=== PATIENT | male | born 1960 | race Caucasian/White ===

== ENCOUNTER → 2021-08-23 09:25 | Outpatient (BNVA) | payer OTHER, SELFPAY | PROVIDERS: PCP Internal Medicine; Visit Provider Nurse Practitioner Family | DX: G20 Parkinson's disease (principal); G47.62 Sleep related leg cramps; M79.601 Pain in right arm; M79.602 Pain in left arm; R20.2 Paresthesia of skin | CPT/HCPCS: 99212 ==

== ENCOUNTER → 2021-10-21 09:47 | Outpatient (BNVA) | payer OTHER, SELFPAY | PROVIDERS: Visit Provider Nurse Practitioner Family | DX: G20 Parkinson's disease (principal); G47.62 Sleep related leg cramps; R20.2 Paresthesia of skin; M79.601 Pain in right arm; M79.602 Pain in left arm | CPT/HCPCS: 99212 ==

== ENCOUNTER → 2021-12-30 11:26 | Outpatient (BNVA) | payer OTHER, SELFPAY | PROVIDERS: PCP Nurse Practitioner Family; Visit Provider Nurse Practitioner Family | DX: G20 Parkinson's disease (principal); R20.2 Paresthesia of skin; M79.601 Pain in right arm; M79.602 Pain in left arm; G47.62 Sleep related leg cramps | CPT/HCPCS: 99212 ==

== ENCOUNTER → 2022-04-04 08:53 | Outpatient (BNVA) | payer OTHER, SELFPAY | PROVIDERS: PCP Nurse Practitioner Family; Visit Provider Nurse Practitioner Family | DX: G20 Parkinson's disease (principal); F41.9 Anxiety disorder, unspecified | CPT/HCPCS: 99212 ==

== ENCOUNTER → 2022-08-03 14:54 | Outpatient (BNVA) | payer OTHER, SELFPAY | PROVIDERS: PCP Nurse Practitioner Family; Visit Provider Nurse Practitioner Family | DX: G20 Parkinson's disease (principal); F09 Unspecified mental disorder due to known physiological condition; G47.33 Obstructive sleep apnea (adult) (pediatric); G47.19 Other hypersomnia; R06.83 Snoring; Z79.899 Other long term (current) drug therapy | CPT/HCPCS: 99212 ==

== ENCOUNTER → 2022-08-31 09:18 | Outpatient (REF) | payer OTHER, SELFPAY | LOC: HO.SL 09:18 | PROVIDERS: Visit Provider Nurse Practitioner Family | DX: G47.33 Obstructive sleep apnea (adult) (pediatric) (principal) | CPT/HCPCS: 95806 ==

== ENCOUNTER 2023-07-05 08:34 | Outpatient (AMB) | payer OTHER, SELFPAY ==
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
[2023-07-05 08:40] VITALS: BP 112/80; PULSE 84; O2SAT 98; BMI 33.5
== END 2023-07-05 09:41 | disposition home or self-care (01) ==
PROVIDERS: PCP Nurse Practitioner Family; Visit Provider Nurse Practitioner Family
DX: G20.A1 Parkinson's disease without dyskinesia, without mention of fluctuations (principal); F09 Unspecified mental disorder due to known physiological condition; G47.62 Sleep related leg cramps; R20.2 Paresthesia of skin; M79.601 Pain in right arm; M79.602 Pain in left arm; G50.1 Atypical facial pain
CPT/HCPCS: 99214

== ENCOUNTER → 2023-07-05 08:34 | Outpatient (BNVA) | payer OTHER, SELFPAY | PROVIDERS: PCP Nurse Practitioner Family; Visit Provider Nurse Practitioner Family | DX: G20.A1 Parkinson's disease without dyskinesia, without mention of fluctuations (principal); F09 Unspecified mental disorder due to known physiological condition; G47.62 Sleep related leg cramps; R20.2 Paresthesia of skin; M79.601 Pain in right arm; M79.602 Pain in left arm; G50.1 Atypical facial pain; Z79.899 Other long term (current) drug therapy | CPT/HCPCS: 99212 ==

== ENCOUNTER 2023-11-02 08:19 | Outpatient (AMB) | payer OTHER, SELFPAY ==
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
--- OUTSIDE RECORDS SUMMARY | 2023-11-02 08:21 | XMS_ITS | Continuity of Care Document ---
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 FERNANDEZ Primary Care Physician Encounter [facility] [place] Date(s): 12/10/20 - 01/09/[address] [address]- Allergies, Adverse Reactions, Alerts Substance Reaction Severity Status penicillin Unknown Active gabapentin Active hydrOXYzine hydrochloride Ac tive Lantus Active Ventolin HFA Active Flovent HFA Active traZODone Active ZyrTEC Active SEROquel Active Immunizations Given and Recorded Vaccine Date Status Refusal Reason SARS-CoV-2 (COVID-19) mRNA BNT-162b2 vac 10/17/20 Recorded influenza virus vaccine, inactivated 03/02/20 Pavel rded influenza virus vaccine, inactivated 03/07/19 Give n influenza virus vaccine, inactivated 03/28/18 Give n influenza virus vaccine, inactivated 02/10/18 Pavel rded influenza virus vaccine, inactivated 03/30/16 Give n influenza virus vaccine, inactivated 03/04/16 Give n influenza virus vaccine, inactivated 04/16/15 Give n zoster vaccine, inactivated 06/18/19 Recorded zoster vaccine, inactivated 06/17/19 Recorded zoster vaccine, inactivated 11/25/17 Recorded Influenza Vaccine (oldterm) 02/17/17 Recorded pneumococcal 23-valent vaccine 02/16/16 Given tetanus/diphtheria/pertussis, acel(Tdap) 11/25/14 Given Medications acetaminophen 500 mg oral tablet 2 tablet = 1,000 mg, By Mouth, 3 times a day, PRN for pain, not to exceed 4000 mg/day. Do not take with acetaminophen/codeine pills, # 60 tablet, 0 Refills, Acute 01/27/21 8:00:00 EDT, 11/27/20 10:53:00 EDT, Tablet, [facility]/pharmacy #[id number], Partial fill up... Start Date: 11/27/20 Stop Date: 01/27/21 Status: Ordered amLODIPine 10 mg oral tablet 10 mg, 1, tablet, By Mouth, Daily, # 90 tablet, Refills 3, Tot. Refills 3, Maintenance, 10/30/20 15:08:00 EDT, Route to Pharmacy Electronically, [facility]/pharmacy #[id number], 184, cm, 10/30/20 14:15:00 EDT, Height, 123.27, kg, 06/25/19 13:22:00 EST, Dry Weight Start Date: 10/30/20 Status: Ordered aspirin 81 mg oral delayed release tablet 81 mg, 1, tablet, By Mouth, Daily, # 90 tablet, Refills 0, Tot. Refills 0, Maintenance, 01/01/21 11:26:00 EDT, Route to Pharmacy Electronically, [facility]/pharmacy #[id number], Partial fill upon patient request if the prescription is for a schedule II opioid drug... Start Date: 01/01/21 Status: Ordered aspirin 81 mg oral tablet 1 tablet = 81 mg, By Mouth, Daily, # 90 tablet, 3 Refills, Maintenance, 01/15/20 9:51:00 EDT, Tablet, [facility]/pharmacy #[id number], 184, cm, 01/15/20 9:11:00 EDT, Height, 123.27, kg, 06/25/19 13:22:00 EST, DryWeight Start Date: 01/15/20 Stop Date: 01/09/21 Status: Ordered Auto CPAP Auto CPAP, See Instructions, # 1 each, Refills 0, Tot. Refills 0, Maintenance, Patient should be started on AutoCPAP 7-12 with a heated humidifier. Recommend ordering a machine with compliance data capabilities and following residual AHI. Dx: KERMIT (G47... Start Date: 06/27/16 Status: Ordered Auto CPAP Supplies Auto CPAP Supplies, See Instructions, # 1 each, Refills 3, Tot. Refills 3, Maintenance, Mask,Nasal pillows,Filters,Heated humidification,Headgear,Interface,Tubing,Chin Strap,Water chamber,Ramp. Dx: Ob structive sleep apnea- G47.33, 06/27/16 11:24:23,... Start Date: 06/27/16 Status: Ordered Blood Pressure Monitor See Instructions, # 1 each, Refills 0, Tot. Refills 0, Maintenance, Use to check BP once daily Dx: I10, 01/15/20 9:35:00 EDT, Supply Start Date: 01/15/20 Status: Ordered cane cane, See Instructions, # 1 each, Refills 0, Tot. Refills 0, Maintenance, use as needed for walking, 12/31/20 9:52:00 EDT, Supply Start Date: 12/31/20 Status: Ordered Claritin 10 mg oral tablet 10 mg, 1, tablet, By Mouth, Daily, # 30 tablet, Refills 0, Tot. Refills 0, Maintenance, 02/07/20 9:49:00 EDT, Route to Pharmacy Electronically, [facility]/pharmacy #[id number], 184, cm, 01/29/20 14:16:00 EDT, Height, 123.27, kg, 06/25/19 13:22:00 EST, Dry Weight Start Date: 02/07/20 Status: Ordered Compression- Lower Extremity (Knee High) See Instructions, # 2 each, Refills 0, Tot. Refills 0, Maintenance, Pressure of 20-30 mmHG. For bilateral lower extremity venous stasis with edema/swelling, 04/06/18 15:30:34 EDT, Compound Start Date: 04/06/18 Status: Ordered Compression- Lower Extremity (Knee High) See Instructions, # 1 each, Refills 3, Tot. Refills 3, Maintenance, dx bilateral leg edema, wear daily 15-20 mmHG 1 pair, 11/09/20 11:22:00 EDT, Supply Start Date: 11/09/20 Status: Ordered cyanocobalamin 1000 mcg oral tablet 1,000 mcg, 1, tablet, By Mouth, Daily, for 90 days, # 90 tablet, Refills 11, Tot. Refills 11, Hard Stop 08/02/23 13:12:00 EST, 08/17/20 13:12:00 EST, Route to Pharmacy Electronically, [facility]/pharmacy #[id number], 184, cm, 02/28/20 15:58:00 EDT, Height, 123.27,... Start Date: 08/17/20 Stop Date: 08/02/23 Status: Ordered cyanocobalamin 1000 mcg oral tablet 1,000 mcg, 1, tablet, By Mouth, Daily, # 90 tablet, Refills 11, Tot. Refills 11, Maintenance, 08/02/23 13:12:00 EST, Route to Pharmacy Electronically, [facility]/pharmacy #[id number], 184, cm, 01/01/21 10:56:00 EDT, Height, 123.27, kg, 06/25/19 13:22:00 EST, Dry W... Start Date: 08/02/23 Stop Date: 07/17/26 Status: Ordered Diabetic socks Diabetic socks, See Instructions, # 1 each, Refills 5, Tot. Refills 5, Maintenance, please dispensediabetic stocks for this pt with DX E11.9, 02/07/20 13:13:00 EDT, Compound, 184, cm, 01/29/20 14:16:00 EDT, Height, 123.27, kg, 06/25/19 13:22:00 EST,... Start Date: 02/07/20 Status: Ordered Diabetic walking shoes Diabetic walking shoes, See Instructions, # 1 each, Refills 0, Tot. Refills 0, Maintenance, Dispense 1 pair of diabetic walking shoes DX- E11.9, 02/19/20 13:22:00 EDT, Supply, Dry Weight Start Date: 02/19/20 Status: Ordered diazepam 2 mg oral tablet TAKE 1 TABLET BY MOUTH TWICE A DAY NEEDED Start Date: 02/28/20 Status: Ordered diclofenac 1% topical gel See Instructions, 1 application Topically to affected area 2 times a day as needed for pain, # 100 Gm, 1 Refills, Maintenance, 12/03/20 16:21:00 EDT, Gel, [facility]/pharmacy #[id number], Partial fill upon patient request if the prescription is for a schedule II... Start Date: 12/03/20 Status: Ordered Diovan 320 mg oral tablet 1 tablet = 320 mg, By Mouth, Daily, # 90 tablet, 3 Refills, Maintenance, 01/01/21 11:24:00 EDT, Tablet, [facility]/pharmacy #[id number], 184, cm, 01/01/21 10:56:00 EDT, Height, 123.27, kg, 06/25/19 13:22:00 EST, Dry Weight Start Date: 01/01/21 Status: Ordered fluocinonide 0.05% topical cream See Instructions, 1 application Topically 3 times a day, as needed, for itchy rash. apply a thin film to affected areas, # 30 Gm, 0 Refills, Maintenance, 10/03/20 15:41:00 EDT, Cream, [facility]/pharmacy #[id number], Partial fill upon patient request if the presc... Start Date: 10/03/20 Status: Ordered fluticasone 50 mcg/inh nasal spray See Instructions, USE 1 SPRAY IN EACH NOSTRIL EVERY MORNING, # 16 mL, 0 Refills, Maintenance, [id number], 30, USE 1 SPRAY IN EACH NOSTRIL EVERY MORNING, 184, cm, 01/29/20 14:16:00 EDT, Height, 123.27, kg, 06/25/19 13:22:00 EST, Dry Weight Start Date: 02/06/20 Status: Ordered Freestyle Lite Lancets See Instructions, # 50 each, Refills 5, Tot. Refills 5, Maintenance, Use to test BS daily for DM, E11.65, 07/22/18 19:22:15 EST, Compound Start Date: 07/22/18 Status: Ordered Freestyle Lite Lancets See Instructions, # 200 each, Refills 5, Tot. Refills 5, Maintenance, Use to test BS 3 times a day for DM, E11.65, 10/13/17 9:24:10 EDT, Compound Start Date: 10/13/17 Status: Ordered Freestyle Lite Test Strips See Instructions, # 1 box, Refills 11, Tot. Refills 11, Maintenance, Dx: E11.65 Use up to 3 times daily, 07/11/16 19:31:42, Compound Start Date: 07/11/16 Status: Ordered hydrOXYzine pamoate 25 mg oral capsule TAKE 2 CAPS BY MOUTH EVERY NIGHT AND TAKE 1 CAP EVERY MORNING AND NOON Start Date: 02/28/20 Status: Ordered metFORMIN 500 mg oral tablet 1 tablet = 500 mg, By Mouth, Daily, with meals, # 90 tablet, 11 Refills, Maintenance, 01/01/21 11:24:00 EDT, Tablet, [facility]/pharmacy #[id number], 184, cm, 01/01/21 10:56:00 EDT, Height, 123.27, kg, 06/25/19 13:22:00 EST, Dry Weight Start Date: 01/01/21 Status: Ordered omega-3 polyunsaturated fatty acids ethyl esters 1000 mg oral capsule 1 capsule = 1,000 mg, By Mouth, 2 times a day, # 60 capsule, 11 Refills, Maintenance, 01/01/21 11:25:00 EDT, Capsule, [facility]/pharmacy #[id number], 1 capsule By Mouth 2 times a day,x30 days, 184, cm, 01/01/21 10:56:00 EDT, Height, 123.27, kg, 06/25/19 13:22:00... Start Date: 01/01/21 Stop Date: 12/27/21 Status: Ordered omeprazole 20 mg oral enteric coated capsule 1 capsule = 20 mg, By Mouth, Daily, # 30 capsule, 2 Refills, Maintenance, 02/06/20 16:40:00 EDT, ECCapsule, [facility]/pharmacy #[id number], 184, cm, 01/29/20 14:16:00 EDT, Height, 123.27, kg, 06/25/19 13:22:00 EST, Dry Weight Start Date: 02/06/20 Status: Ordered Robaxin-750 750 mg oral tablet 2 tablet = 1,500 mg, By Mouth, 3 times a day, for 10 days, it make drowsiness, # 60 tablet, 0 Refills, Acute 01/11/21 11:23:00 EDT, 01/01/21 11:23:00 EDT, Tablet, [facility]/pharmacy #[id number], Partial fill upon patient request if the prescription is for a sched... Start Date: 01/01/21 Stop Date: 01/11/21 Status: Ordered Shower chair Shower chair, See Instructions, # 1 each, Refills 0, Tot. Refills 0, Maintenance, Use as needed stevie, 12/31/20 9:51:00 EDT, Supply Start Date: 12/31/20 Status: Ordered sulindac 150 mg oral tablet 1 tablet = 150 mg, By Mouth, 2 times a day, PRN Pain , Mild, for 14 days, # 28 tablet, 0 Refills, Hard Stop 01/15/21 11:19:00 EDT, 01/01/21 11:19:00 EDT, Tablet, [facility]/pharmacy #[id number], Partial fill uponpatient request if the prescription is for a schedu... Start Date: 01/01/21 Stop Date: 01/15/21 Status: Ordered sulindac 150 mg oral tablet See Instructions, TAKE 1 TABLET BY MOUTH TWICE DAILY NEEDED FOR PAIN, # 28 tablet, 0 Refills, Maintenance, [id number], 184, cm, 12/09/20 11:19:00 EDT, Height, 123.27, kg, 06/25/19 13:22:00 EST, Dry Weight Start Date: 12/25/20 Status: Ordered Problem List Condition Effective Dates Status Health Status Inform ant Polyp of colon, adenomatous( Confirmed) 1 08/09/16 Active Atypical facial pain, left(C onfirmed) 2, 3 Active Chronic low back pain(Confirmed) Active Muscle cramps of lower extre mities + elevated CPK(Confirmed) Active Diastolic dysfunction(Confirmed) Active Disorder of toe(Confirmed) Active Dyslipidemia(Confirmed) Active Bilateral edema of lower extremity(Confirmed) Active Tremor of both hands(Confirmed) 4 Active Hearing impairment(Confirmed) Active HTN (hypertension)(Confirmed) Active Insomnia(Confirmed) Active Knee pain, bilateral(Confirmed) Active Bilateral lumbar radiculopathy(Confirmed) Active Memory impairment of gradual onset(Confirmed) Active Myofascial pain(Confirmed) Active Obesity (BMI 30-39.9)(Confirmed) Active KERMIT (obstructive sleep apnea ): bipap 2 liters oxygen(Confirmed) Active Osteoarthritis of both knees(Confirmed) Active Left elbow pain(Confirmed) Active Leg pain(Confirmed) Active Right leg pain(Confirmed) Active Bilateral arm pain(Confirmed) Active Panic disorder(Confirmed) 5, 6 Active Encounter for annual physica l exam(Confirmed) Active Lumbar herniated disc(Confirmed) Active Pruritic dermatitis(Confirmed) Active Recurrent major depression(Confirmed) Active 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 3Seeing [place] neurology and sleep. Given a trial of Tegretol 200 mg upto 2 tablets twice a day andadvised to continue with Lyrica 300 mg twice a day. Had some improvement of the facial pain with this regimen. 4Seeing [place] neurology and asleep. On 09/11/2018 started on a trial of primidone 50 mg, 1 tablet for 1 week and then twice a day. 5Seeing Aydin Castrejon 6per pt, he is on disability, seen by Dr. Pollock 7Simvastatin 40 mg d/sedrick. Social History Social History Type Response Smoking Status 5-9 cigarettes (betw een 1/4 to 1/2 pack)/day in last 30 days; Other: Quit in May 2019; entered on: 07/18/19 Sex
--- OUTSIDE RECORDS SUMMARY | 2023-11-02 08:21 | XMS_ITS | Continuity of Care Document ---
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 Start Date: 11/27/20 Stop Date: 01/27/21 Status: Ordered amLODIPine 10 mg oral tablet 10 mg, 1, tablet, By Mouth, Daily, # 90 tablet, Refills 3, Tot. Refills 3, Maintenance, 10/30/20 15:08:00 EDT, Route to Pharmacy Electronically, [facility]/pharmacy #[id number], 184, cm, 10/30/20 14:15:00 EDT, Height, 123.27, kg, 06/25/19 13:22:00 EST, Dry Weight Start Date: 10/30/20 Status: Ordered aspirin 81 mg oral delayed release tablet 81 mg, 1, tablet, By Mouth, Daily, # 90 tablet, Refills 0, Tot. Refills 0, Maintenance, 01/01/21 11:26:00 EDT, Route to Pharmacy Electronically, [facility]/pharmacy #[id number], Partial fill upon patient request if the prescription is for a schedule II opioid drug... Start Date: 01/01/21 Status: Ordered aspirin 81 mg oral tablet 1 tablet = 81 mg, By Mouth, Daily, # 90 tablet, 3 Refills, Maintenance, 01/15/20 9:51:00 EDT, Tablet, [facility]/pharmacy #[id number], 184, cm, 01/15/20 9:11:00 EDT, Height, [...] 0, Maintenance, use as needed for walking, 01/14/21 16:42:00 EDT, Supply Start Date: 01/14/21 Status: Ordered Cane See Instructions, # 1 each, Maintenance, DX: M51. 26 Need length 99 months Please send to [facility], 01/21/21 13:20:00 EDT, Supply Start Date: 01/21/21 Status: Ordered Claritin 10 mg oral tablet 10 mg, 1, tablet, By Mouth, Daily, # 30 tablet, Refills 0, Tot. Refills 0, Maintenance, 02/07/20 9:49:00 EDT, Route to Pharmacy Electronically, [facility]/pharmacy #[id number], 184, cm, 01/29/20 14:16:00 EDT, Height, [...] 08/17/20 13:12:00 EST, [id number], [facility], 02/28/20 15:58:00 EDT, Height, 123.27,... Start Date: 08/17/20 Stop Date: 08/02/23 Status: Ordered cyanocobalamin 1000 mcg oral tablet 1,000 mcg, 1, tablet, By Mouth, Daily, # 90 tablet, Refills 11, Tot. Refills 11, Maintenance, 08/02/23 13:12:00 EST, Route to Pharmacy Electronically, [facility]/pharmacy #[id number], 184, cm, 01/01/21 10:56:00 EDT, Height, [...] pain, # 100 Gm, 1 Refills, Maintenance, 01/21/21 9:25:00 EDT, Gel, [facility]/pharmacy #[id number], Partial fill upon patientrequest if the prescription is for a schedule II o... Start Date: 01/21/21 Status: Ordered Diovan 320 mg oral tablet 1 tablet = 320 mg, By Mouth, Daily, # 90 tablet, 3 Refills, Maintenance, 01/01/21 11:24:00 EDT, Tablet, [facility]/pharmacy #[id number], 184, cm, 01/01/21 10:56:00 EDT, Height, 123.27, kg, 06/25/19 13:22:00 EST, Dry Weight Start Date: 01/01/21 Status: Ordered docusate sodium 100 mg oral tablet 1 tablet = 100 mg, By Mouth, 2 times a day, PRN for constipation, # 60 tablet, 5 Refills, Maintenance, 01/11/21 15:23:00 EDT, Tablet, [facility]/pharmacy #[id number], Partial fill upon patient request if the prescription is for a schedule II opioid drug., 184, cm,... Start Date: 01/11/21 Status: Ordered fluocinonide 0.05% topical cream See Instructions, 1 application Topically 3 times a day, as needed, for itchy rash. apply a thin film to affected areas, # 30 Gm, 0 Refills, Maintenance, 10/03/20 15:41:00 EDT, Cream, [facility]/pharmacy #[id number], Partial fill upon patient request if the presc... Start Date: 10/03/20 Status: Ordered fluticasone 50 mcg/inh nasal spray See Instructions, USE 1 SPRAY IN EACH NOSTRIL EVERY MORNING, # 16 mL, 0 Refills, Maintenance, [id number], 30, USE 1 SPRAY IN EACH NOSTRIL [...] 11 Refills, Maintenance, 01/01/21 11:24:00 EDT, Tablet, [facility]/pharmacy #[id number], 184, cm, 01/01/21 10:56:00 EDT, Height, 123.27, kg, 06/25/19 13:22:00 EST, Dry Weight Start Date: 01/01/21 Status: Ordered omega-3 polyunsaturated fatty acids ethyl esters 1000 mg oral capsule 1 capsule = 1,000 mg, By Mouth, 2 times a day, # 60 capsule, 11 Refills, Maintenance, 01/01/21 11:25:00 EDT, Capsule, [facility]/pharmacy #[id number], 1 capsule By Mouth 2 times a day,x30 days, 184, cm, 01/01/21 10:56:00 EDT, Height, 123.27, kg, 06/25/19 13:22:00... Start Date: 01/01/21 Stop Date: 12/27/21 Status: Ordered omeprazole 20 mg oral enteric coated capsule 1 capsule = 20 mg, By Mouth, Daily, # 30 capsule, 2 Refills, Maintenance, 02/06/20 16:40:00 EDT, ECCapsule, [facility]/pharmacy #[id number], 184, cm, 01/29/20 14:16:00 EDT, Height, 123.27, kg, 06/25/19 13:22:00 EST, Dry Weight Start Date: 02/06/20 Status: Ordered Shower chair Shower chair, See Instructions, # 1 each, Refills 0, Tot. Refills 0, Maintenance, Use as needed stevie, 12/31/20 9:51:00 EDT, Supply Start Date: 12/31/20 Status: Ordered Shower Chair See Instructions, # 1 each, Refills 0, Tot. Refills 0, Maintenance, DX: M51. 26 please send to [facility], 01/21/21 13:20:00 EDT, Supply Start Date: 01/21/21 Status: Ordered sulindac 150 mg oral tablet See Instructions, TAKE 1 TABLET BY MOUTH TWICE DAILY NEEDED FOR PAIN, # 28 tablet, 0 Refills, Maintenance, [id number], 184, cm, 12/09/20 11:19:00 EDT, Height, 123.27, [...] provided increased discomfort related to nerves. 3Seeing [place] neurology and sleep. Given a trial of Tegretol 200 mg upto 2 tablets twice a day andadvised to continue with Lyrica 300 mg twice a day. Had some improvement of the facial pain with this regimen. 4Seeing [place] neurology and asleep. On 09/11/2018 started on [...]
--- OUTSIDE RECORDS SUMMARY | 2023-11-02 08:21 | XMS_ITS | Continuity of Care Document ---
Author Organization [facility] Address [address] [place] [address]- Care Team Providers Care [place] Seamer Name Role Phone Ivone Oneil MD Primary Care Physician [place] [facility] [place] - 08/20/[address] [address]- Allergies, Adverse Reactions, Alerts Substance Reaction Severity Status penicillin Unknown Active gabapentin Active hydrOXYzine hydrochloride Ac tive Lantus Active Ventolin HFA Active Flovent HFA Active traZODone Active ZyrTEC Active SEROquel Active Immunizations Given and Recorded Vaccine Date Status Refusal Reason SARS-CoV-2 (COVID-19) mRNA BNT-162b2 vac 1 06/01/21 Given SARS-CoV-2 (COVID-19) mRNA BNT-162b2 vac 11/07/20 Recorded SARS-CoV-2 (COVID-19) mRNA BNT-162b2 vac 10/17/20 Recorded influenza virus vaccine, inactivated 03/30/21 Give n influenza virus vaccine, inactivated 03/02/20 Pavel rded [...] vaccine 02/16/16 Given tetanus/diphtheria/pertussis, acel(Tdap) 11/25/14 Given 1Result Comment: DILUENT LOT#: [id number] EXP: 11/2022 MFG: FRESENSIUS Medications amitriptyline 100 mg oral tablet 1 tablet = 100 mg, By Mouth, Daily at bedtime, # 30 tablet, 3 Refills, Maintenance, 12/27/21 12:09:00 EDT, Tablet, [id number], Partial fill upon patient request if the prescription is for a schedule II opioid drug., 184, cm, 12/27/21 11:50:00... Start Date: 12/27/21 Stop Date: 04/26/22 Status: Ordered amlodipine-valsartan 10 mg-320 mg oral tablet 1 tablet, By Mouth, Daily, Please discontinue amlodipine 10 mg and valsartan 320 mg separate scripts and appreciate this combo script. Thank you., # 30 tablet, 3 Refills, Maintenance, 03/03/21 17:24:00 EDT, Tablet, [facility]/pharmacy #[id number], Partial fill upo... Start Date: 03/03/21 Status: Ordered Aspirin Tablet 325 mg, By Mouth, 2 times a day, Refills 0, Maintenance, 02/08/22 9:59:00 EDT, Partial fill upon patient request if the prescription is for a schedule II opioid drug. Start Date: 02/08/22 Status: Ordered atorvastatin 20 mg oral tablet 1 tablet = 20 mg, By Mouth, Daily, # 90 tablet, 1 Refills, Maintenance, 05/13/22 14:40:00 EST, Tablet, [id number], Partial fill upon patient request if the prescription is for a schedule II opioid drug., 183, cm, 02/08/22 6:42:00 EDT, Height,... Start Date: 05/13/22 Status: Ordered Auto CPAP Auto CPAP, See Instructions, # 1 each, Refills 0, Tot. Refills 0, Maintenance, Patient should be started on AutoCPAP 7-12 with a heated humidifier. Recommend ordering a machine with compliance data capabilities and following residual AHI. Dx: KERMIT (G47... Start Date: 06/27/16 Status: Ordered Blood Pressure Monitor See Instructions, # 1 each, Refills 0, Tot. Refills 0, Maintenance, Use to check BP once daily Dx: I10, 01/15/20 9:35:00 EDT, Supply Start Date: 01/15/20 Status: Ordered buPROPion 150 mg/24 hours (XL) oral tablet, extended release 1 tablet = 150 mg, By Mouth, Daily, 0 Refills, Maintenance, 02/08/22 9:59:00 EDT, XL Tablet, Partial fill upon patient request if the prescription is for a schedule II opioid drug. Start Date: 02/08/22 Status: Ordered busPIRone 10 mg oral tablet 10 mg, 1, tablet, By Mouth, 2 times a day, Refills 0, Maintenance, 02/08/22 9:59:00 EDT, Partial fill upon patient request if the prescription is for a schedule II opioid drug. Start Date: 02/08/22 Status: Ordered cane cane, See Instructions, # 1 each, Refills 0, Tot. Refills 0, Maintenance, use as needed for walking, 01/14/21 16:42:00 EDT, Supply Start Date: 01/14/21 Status: Ordered Cane See Instructions, # 1 each, Maintenance, DX: M51. 26 Need length 99 months Please send to [facility], 01/21/21 13:20:00 EDT, Supply Start Date: 01/21/21 Status: Ordered celecoxib 200 mg oral capsule 1 capsule = 200 mg, By Mouth, Daily, 0 Refills, Maintenance, 02/08/22 10:00:00 EDT, Capsule, Partial fill upon patient request if the prescription is for a schedule II opioid drug. Start Date: 02/08/22 Status: Ordered cetirizine 10 mg oral capsule 1 capsule = 10 mg, By Mouth, Daily, PRN for allergy symptoms, # 40 capsule, 0 Refills, Maintenance,03/11/22 9:32:00 EDT, Capsule, [facility]/pharmacy #[id number], Patient reports that he is not allergic to the generic form of this medication - please confirm with... Start Date: 03/11/22 Status: Ordered chlorthalidone 25 mg oral tablet 25 mg, 1, tablet, By Mouth, Daily, Refills 0, Maintenance, 02/08/22 9:59:00 EDT, Partial fill upon patient request if the prescription is for a schedule II opioid drug. Start Date: 02/08/22 Status: Ordered clonazePAM 2 mg oral tablet See Instructions, 1 tablet by mouth only NEEDED for severe panic attack. Dispense: #20 tabs per 20d., # 20 tablet, 0 Refills, Maintenance, 08/18/21 15:21:00 EST, Tablet, [facility]/pharmacy #[id number], Partial fill upon patient request if the prescription is... Start Date: 08/18/21 Status: Ordered Compression Stockings See Instructions, # 1 each, Maintenance, surgical, knee length 15-20 mm Hg, 06/08/21 11:16:00 EST, Supply, 184, cm, 06/08/21 10:20:00 EST, Height, 123.27, kg, 06/25/19 13:22:00 EST, Dry Weight Start Date: 06/08/21 Status: Ordered Compression- Lower Extremity (Knee High) See Instructions, # 1 each, Refills 3, Tot. Refills 3, Maintenance, dx bilateral leg edema, wear daily 15-20 mmHG 1 pair, 01/27/21 17:48:00 EDT, Supply Start Date: 01/27/21 Status: Ordered cyanocobalamin 1000 mcg oral tablet 1,000 mcg, 1, tablet, By Mouth, Daily, # 90 tablet, Refills 11, Tot. Refills 11, Maintenance, 07/17/26 13:12:00 EST, Route to Pharmacy Electronically, [facility]/pharmacy #[id number], 184, cm, 07/26/21 9:11:00 EST, Height Start Date: 07/17/26 Stop Date: 07/01/29 Status: Ordered cyanocobalamin 1000 mcg oral tablet 1,000 mcg, 1, tablet, By Mouth, Daily, for 90 days, # 90 tablet, Refills 11, Tot. Refills 11, Hard Stop 07/17/26 13:12:00 EST, 08/02/23 13:12:00 EST, Route to Pharmacy Electronically, [facility]/pharmacy #[id number], 184, cm, 01/01/21 10:56:00 EDT, Height, 123.27,... Start Date: 08/02/23 Stop Date: 07/17/26 Status: [...] Dry Weight Start Date: 02/19/20 Status: Ordered diclofenac 1% topical gel See Instructions, APPLY TOPICALLY TO AFFECTED ARE TWICE A DAY NEEDED FOR PAIN, # 100 Gm, 2 Refills, Maintenance, 07/28/22 8:54:00 EST, [id number], 30, APPLY TOPICALLY TO AFFECTED ARE TWICE A DAY NEEDED FOR PAIN, 183, cm, 07/07/22 10:54:00 E... Start Date: 07/28/22 Status: Ordered FREESTYLE 28G LANCETS FREESTYLE 28G LANCETS, See Instructions, # 100 Unknown, 11 Refills, Maintenance, USE TO TEST BS 3 TIMES A DAY FOR DM, E11.65, 05/17/22 13:56:00 EST, 183, cm, 02/08/22 6:42:00 EDT, Height, 123.2, kg, 02/07/22 12:47:00 EDT, Dry Weight Start Date: 05/17/22 Status: Ordered Freestyle Lite Lancets See Instructions, # 100 each, Refills 11, Tot. Refills 11, Maintenance, Use to test BS 3 times a day for DM, E11.65, 03/03/21 13:56:00 EDT, Compound, 184, cm, 03/03/21 13:17:00 EDT, Height, 123.27, kg, 06/25/19 13:22:00 EST, Dry Weight Start Date: 03/03/21 Status: Ordered Freestyle Lite Monitor See Instructions, # 1 each, Refills 0, Tot. Refills 0, Maintenance, Use to test BS daily for DM, E11.65, 01/26/21 13:01:00 EDT, Compound, 184, cm, 01/22/21 10:05:00 EDT, Height, 123.27, kg, 06/25/19 13:22:00 EST, Dry Weight Start Date: 01/26/21 Stop Date: 02/25/21 Status: Ordered Freestyle Lite Test Strips See Instructions, # 100 each, Refills 11, Tot. Refills 11, Maintenance, Dx: E11.65 Use up to 3 times daily, 03/30/21 16:30:00 EDT, Compound, 184, cm, 03/30/21 16:08:00 EDT, Height, 123.27, kg, 06/25/19 13:22:00 EST, Dry Weight Start Date: 03/30/21 Status: Ordered loratadine 10 mg oral tablet 1, tablet, By Mouth, Daily, PRN, # 90 tablet, Refills 1, NEEDED FOR ALLERGIES, Route to PharmacyElectronically, [id number], 184, cm, 10/18/21 13:37:00 EDT, Height Start Date: 10/22/21 Status: Ordered magnesium oxide 400 mg oral tablet 1 tablet = 400 mg, By Mouth, Daily, Rx'd by Neurology at [facility]/ Dr. Murphy, 0 Refills, Maintenance, 04/15/21 23:30:00 EDT, Partial fill upon patient request if the prescription is for a schedule II opioid drug. Start Date: 04/15/21 Status: Ordered metFORMIN 500 mg oral tablet 2 tablet = 1,000 mg, By Mouth, 2 times a day, New script. Please discontine script order for metformin 500 mg daily, new script for 2 tabs TWICE daily., # 360 tablet, 3 Refills, Maintenance, 09/16/2211:15:00 EDT, Tablet, [facility]/pharmacy #[id number], Partial f... Start Date: 09/15/21 Status: Ordered Nicotine 2 mg gum See Instructions, CHEW 1 PIECE OF GUM EVERY 2 HOURS NEEDED FOR SMOKING CESSATION, # 40 gum, 0 Refills, [id number], 184, cm, 12/27/21 11:50:00 EDT, Height Start Date: 02/01/22 Status: Ordered omega-3 polyunsaturated fatty acids ethyl esters 1000 mg oral capsule 1 capsule, By Mouth, 2 times a day, # 180 capsule, 3 Refills, [id number], 90, TAKE 1 CAPSULE BY MOUTH TWICE A DAY, 183, cm, 02/08/22 6:42:00 EDT, Height, 123.2, kg, 02/07/22 12:47:00 EDT, Dry Weight Start Date: 02/09/22 Status: Ordered omeprazole 20 mg oral enteric coated capsule 1 capsule, By Mouth, Daily, # 90 capsule, 0 Refills, Maintenance, 07/21/22 8:05:00 EST, [id number], 183, cm, 07/07/22 10:54:00 EST, Height, 123.2, kg, 02/07/22 12:47:00 EDT, Dry Weight Start Date: 07/21/22 Status: Ordered PAP Supplies - Mask, Tubing, Filters, Head Gear, Chin Strap, and Water Chamber PAP Supplies - Mask, Tubing, Filters, Head Gear, Chin Strap, and Water Chamber, See Instructions, #1 each, Refills 12, Tot. Refills 12, Maintenance, to be used with CPAP machine for dx: KERMIT G47.30, 01/18/22 16:53:00 EDT, Compound Start Date: 01/18/22 Status: Ordered polyethylene glycol 3350 oral powder for reconstitution See Instructions, DISSOLVE 17 GRAMS IN WATER & DRINK ONCE A DAY UNTIL BM, IF NO BM DRINK 2X/DAY. MAX 4 TIMES DAILY, # 510 Gm, 0 Refills, Maintenance, 03/22/22 8:30:00 EDT, [id number], 14, DISSOLVE 17 GRAMS IN WATER & DRINK ONCE A DAY UNTIL BM, IF... Start Date: 03/22/22 Status: Ordered pregabalin 300 mg oral capsule 1 capsule = 300 mg, By Mouth, 2 times a day, PRN pain, one tab twice daily prn pain, # 60 capsule, 0 Refills, Maintenance, 06/29/21 15:41:00 EST, Capsule, [id number], Partial fill upon patient request if the prescription is for a schedule II o... Start Date: 06/29/21 Stop Date: 07/29/21 Status: Ordered primidone 50 mg oral tablet 100 mg, 2, tablet, By Mouth, 3 times a day, Rx'd by Neurology at [facility]/ Dr. Murphy, Refills 0, Maintenance, 03/07/19 8:44:30 EDT Start Date: 03/07/19 Status: Ordered Raised Toilet Seat - Elongated Raised Toilet Seat - Elongated, See Instructions, # 1 each, Refills 0, Tot. Refills 0, Maintenance,to be used during toileting dx: M51.26, 02/25/22 16:17:00 EDT, Supply Start Date: 02/25/22 Status: Ordered risperiDONE 0.25 mg oral tablet 0.5 mg, 2, tablet, By Mouth, Daily, Refills 0, Maintenance, 02/08/22 10:00:00 EDT, Partial fill upon patient request if the prescription is for a schedule II opioid drug. Start Date: 02/08/22 Status: Ordered rOPINIRole 0.25 mg oral tablet 2 tablet = 0.5 mg, By Mouth, 4 times a day, 0 Refills, Maintenance, 02/08/22 10:00:00 EDT, Tablet, Partial fill upon patient request if the prescription is for a schedule II opioid drug. Start Date: 02/08/22 Status: Ordered rOPINIRole 1 mg oral tablet 2 tablet = 2 mg, By Mouth, Daily at bedtime, 0 Refills, Maintenance, 02/08/22 10:00:00 EDT, Tablet,Partial fill upon patient request if the prescription is for a schedule II opioid drug. Start Date: 02/08/22 Status: Ordered Shower Chair See Instructions, # 1 each, Refills 0, Tot. Refills 0, Maintenance, DX: M51. 26 please send to [facility], 08/08/22 15:41:00 EST, Supply Start Date: 08/08/22 Status: Ordered Symbicort 160mcg/4.5mcg Inhaler 2, puffs, Inhalation, 2 times a day, # 6 Gm, Refills 0, Tot. Refills 0, Maintenance, 12/27/21 12:43:00 EDT, Aerosol, Route to Pharmacy Electronically, [id number], [facility]/pharmacy #[id number], 184, cm, 12/27/21 11:50:00 EDT, Height Start Date: 12/27/21 Status: Ordered Tylenol Extra Strength 500 mg oral tablet 2 tablet = 1,000 mg, By Mouth, 3 times a day, PRN as needed for pain, # 100 tablet, 5 Refills, Maintenance, 12/07/21 10:44:00 EDT, Tablet, [facility]/pharmacy #[id number], Partial fill upon patient request if theprescription is for a schedule II opioid drug., 184... Start Date: 12/07/21 Status: Ordered valsartan 320 mg oral tablet 1 tablet, By Mouth, Daily, # 90 tablet, 3 Refills, Maintenance, 03/15/22 14:29:00 EDT, [id number], 183, cm, 02/08/22 6:42:00 EDT, Height, 123.2, kg, 02/07/22 12:47:00 EDT, Dry Weight Start Date: 03/15/22 Status: Ordered Problem List Condition Confirmation Course Effective Dates Status H ealth Status Informant Polyp of colon, adenomatous 1 Confirmed 08/09/16 Active Atypical facial pain, left 2, 3 Confirmed Active Chronic low back pain Confirmed Active Constipation Confirmed Active Muscle cramps of lower extremities + elevated CPK Confirmed Active Degeneration of lumbar intervertebral disc Confirmed Active Diastolic dysfunction Confirmed Active Disorder of toe Confirmed Active Dyslipidemia Confirmed Active Bilateral edema of lower extremity Confirmed Active Tremor of both hands 4 Confirmed Active Generalized anxiety disorder with panic attacks Confirmed Active Hearing impairment Confirmed Active HTN (hypertension) Confirmed Active Ingrown left big toenail Confirmed Active Insomnia Confirmed Active Knee pain, bilateral Confirmed Active Bilateral lumbar radiculopathy Confirmed Active Lumbosacral radiculopathy Confirmed Active Lumbosacral spondylosis without myelopathy Confirmed Active Memory impairment of gradual onset Confirmed Active Myofascial pain Confirmed Active Obesity (BMI 30-39.9) Confirmed Active KERMIT (obstructive sleep apnea): bipap 2 liters oxygen Confirmed Active Onychomycosis of toenail Confirmed Active Osteoarthritis of both knees Confirmed Active Left elbow pain Confirmed Active Leg pain Confirmed Active Right leg pain Confirmed Active Bilateral arm pain Confirmed Active Panic disorder 5, 6 Confirmed Active Encounter for annual physical exam Confirmed Active Encounter for smoking cessation counseling Confirmed Active Lumbar herniated disc Confirmed Active Pruritic dermatitis Confirmed Active Recurrent major depression Confirmed Active Simvastatin-induced rhabdomyolysis-CPK remain elevated 7 Confirmed Active Sciatica Confirmed Active Peripheral sensory neuropathy Confirmed Active Severe obesity (BMI 35.0-39.9) with comorbidity Confirmed Active 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 3Seeing [place] [facility] and sleep. Given a trial of Tegretol 200 mg upto 2 tablets twice a day andadvised to continue with Lyrica 300 mg twice a day. Had some improvement of the facial pain with this regimen. 4Seeing [place] [facility] and asleep. On 09/11/2018 started on a trial of primidone 50 mg, 1 tablet for 1 week and then twice a day. 5Seeing Aydin Castrejon 6per pt, he is on disability, seen by Dr. Pollock 7Simvastatin 40 mg d/sedrick. Social History Social History Type Response Smoking Status 5-9 cigarettes (betw een 1/4 to 1/2 pack)/day in last 30 days entered on: 12/27/21 Sex Patient Care team information Care Team Personnel Name: Olimpia Parker Position: [facility] Office Staff Member Role: Lifetime Consulting Physician Name: Ivone Oneil MD Position: [facility] Primary Care Physician Member Role: PCP Address: Address: [address] [place] [address]- Care Team Related Persons Name: JARROD BRADFORD Address: home [address] [place] [address] Name: LOLA BRADFORD Address: home [address] [place] [address] Name: GOLDIE LERMA Address: [place] [address] Name: OLIMPIA LERMA Address: [place] [address] Name: KADE LERMA Address: home [address] [place] [id number] Name: KADE LERMA Address: home [address] [place] [id number]
--- OUTSIDE RECORDS SUMMARY | 2023-11-02 08:21 | XMS_ITS | Continuity of Care Document ---
Author Organization [facility] Address [address] [place] [address]- Care Team Providers Care State Federal Relations Deputy Director Name Role Phone Ivone Oneil MD Primary Care Physician Encounter [facility] [place] Date(s): 08/31/22 - 09/30/[address] [address]- Allergies, Adverse Reactions, Alerts Substance Reaction Severity Status penicillin Unknown Active gabapentin Active hydrOXYzine hydrochloride Ac tive Flovent HFA Active SEROquel Active Lantus Active ZyrTEC Active Ventolin HFA Active traZODone Active Immunizations Given and Recorded Vaccine Date [...] acel(Tdap) 11/25/14 Given 1Result Comment: DILUENT LOT#: [id number] EXP: 11/2022 MFG: FRESENSIUS Medications amitriptyline 100 mg oral tablet 1 tablet = 100 mg, By Mouth, Daily at bedtime, # 30 tablet, 3 Refills, Maintenance, 12/27/21 12:09:00 EDT, Tablet, [facility]/pharmacy #[id number], Partial fill upon patient request if the prescription is for a schedule II opioid drug., 184, cm, 12/27/21 11:50:00... Start Date: 12/27/21 Stop Date: 04/26/22 Status: Ordered Aspirin Tablet 325 mg, By Mouth, 2 times a day, Refills 0, Maintenance, 02/08/22 9:59:00 EDT, Partial fill upon patient request if the prescription is for a schedule II opioid drug. Start Date: 02/08/22 Status: Ordered atorvastatin 20 mg oral tablet 1 tablet = 20 mg, By Mouth, Daily, # 90 tablet, 1 Refills, Maintenance, 05/13/22 14:40:00 EST, Tablet, [facility]/pharmacy #[id number], Partial fill upon patient request if the prescription is for a schedule II opioid drug., 183, cm, 02/08/22 6:42:00 EDT, Height,... Start Date: 05/13/22 Status: Ordered Auto CPAP Auto CPAP, See Instructions, # 1 each, Refills 0, Tot. Refills 0, Maintenance, Patient should be started on AutoCPAP 7-12 with a heated humidifier. 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 Refills 2, Maintenance, 08/23/22 8:42:00 EST, Route to Pharmacy Electronically, [facility]/pharmacy #[id number], Partial fill upon patient request if the prescription is for a schedule II opioid drug.... Start Date: 08/23/22 Status: Ordered clonazePAM 2 mg oral tablet See Instructions, 1 tablet by mouth only NEEDED for severe panic attack. Dispense: #20 tabs per 20d., # 20 tablet, 0 Refills, Maintenance, 08/18/21 15:21:00 EST, Tablet, [facility]/pharmacy #[id number], Partial fill upon patient request if [...] Refills 11, Tot. Refills 11, Hard Stop 07/01/29 13:12:00 EST, 07/17/26 13:12:00 EST, Route to Pharmacy Electronically, [facility]/pharmacy #[id number], 184, cm, 07/26/21 9:11:00 EST, Height Start Date: 07/17/26 Stop Date: 07/01/29 Status: Ordered cyanocobalamin 1000 mcg oral tablet 1,000 mcg, 1, tablet, By Mouth, Daily, for 90 days, # 90 tablet, Refills 11, Tot. Refills 11, Hard Stop 07/17/26 13:12:00 EST, 08/02/23 13:12:00 EST, [id number] 184, cm, 01/01/21 10:56:00 EDT, Height, 123.27,... Start Date: 08/02/23 Stop Date: 07/17/26 Status: Ordered cyanocobalamin 1000 mcg oral tablet 1,000 mcg, 1, tablet, By Mouth, Daily, # 90 tablet, Refills 1, Tot. Refills 1, Maintenance, 07/01/29 13:12:00 EST, [id number] 183, cm, 08/22/22 8:28:00 EST,Height, 123.2, kg, 02/07/22 12:47:00 EDT, Dry Weight Start Date: 07/01/29 Stop Date: 12/28/29 Status: Ordered Diabetic socks Diabetic socks, See [...] Gm, 2 Refills, Maintenance, 07/28/22 8:54:00 EST, [facility] STORE [id number], 30, APPLY TOPICALLY TO AFFECTED ARE TWICE A DAY NEEDED FOR PAIN, 183, cm, 07/07/22 10:54:00 E... Start Date: 07/28/22 Status: Ordered empagliflozin 10 mg oral tablet 1 tablet = 10 mg, By Mouth, Daily in AM, # 30 tablet, 2 Refills, Maintenance, 08/23/22 8:44:00 EST,Tablet, [facility]/pharmacy #[id number], Partial fill upon patient request if the prescription is for a scheduleII opioid drug., 183, cm, 08/22/22 8:28:00 EST, Hei... Start Date: 08/23/22 Status: Ordered FREESTYLE 28G LANCETS FREESTYLE 28G [...] Strips See Instructions, # 100 each, Refills 6, Tot. Refills 6, Maintenance, Dx: E11.65 use QD to check BG, 09/08/22 15:52:00 EDT, Compound, 183, cm, 09/07/22 10:39:00 EDT, Height, 123.2, kg, 02/07/22 12:47:00 EDT, Dry Weight Start Date: 09/08/22 Status: Ordered Heating Pad Heating Pad, See Instructions, # 1 each, Refills 0, Tot. Refills 0, Maintenance, dx: M25.55, 09/22/22 15:29:00 EDT, Supply Start Date: 09/22/22 Status: Ordered levocetirizine 5 mg oral tablet 1 tablet = 5 mg, By Mouth, Daily in AM, # 30 tablet, 2 Refills, Maintenance, 08/23/22 8:44:00 EST, Tablet, [facility]/pharmacy #[id number], Label in telugu, cetrizine not effective, 1 tablet By Mouth Daily in AM, 183, cm, 08/22/22 8:28:00 EST, Height, 123.2, kg,... Start Date: 08/23/22 Status: Ordered loratadine 10 mg oral tablet 1, tablet, By Mouth, Daily, PRN, # 90 tablet, Refills 1, NEEDED FOR ALLERGIES, Route to PharmacyElectronically, [facility] STORE [id number], 184, cm, 10/18/21 13:37:00 EDT, Height Start Date: 10/22/21 Status: Ordered magnesium oxide 400 mg oral tablet 1 tablet = 400 mg, By Mouth, Daily, [facility], 0 Refills, Maintenance, 04/15/21 23:30:00 EDT, Partial fill upon patient request if the prescription is for a schedule II opioid drug. Start Date: 04/15/21 Status: Ordered Metamucil 3.4 gm/5.2 gm oral powder for reconstitution = 3.4 Gm, By Mouth, 3 times a day, PRN as needed for constipation, # 425 Gm, 11 Refills, Maintenance, 09/12/22 20:51:00 EDT, REC Powder, [facility]/pharmacy #[id number], Partial fill upon patient request if the prescription is for a schedule II opioid drug., 183,... Start Date: 09/12/22 Status: Ordered metFORMIN 500 mg oral tablet 2 tablet = 1,000 mg, By Mouth, 2 times a day, New script. Please discontine script order for metformin 500 mg daily, new script for 2 tabs TWICE daily., # 360 tablet, 3 Refills, Maintenance, 09/16/2211:15:00 EDT, Tablet, [facility]/pharmacy #[id number], Partial f... Start Date: 09/15/21 Status: Ordered Nicotine 2 mg gum See Instructions, CHEW 1 PIECE OF GUM EVERY 2 HOURS NEEDED FOR SMOKING CESSATION, # 40 gum, 0 Refills, [facility] ST[facility], 184, cm, 12/27/21 11:50:00 EDT, Height Start Date: 02/01/22 Status: Ordered Non-slip shower mat Non-slip shower mat, See Instructions, # 1 each, Refills 0, Tot. Refills 0, Maintenance, M54.9 and M79.606, for 99mo, 08/22/22 13:49:00 EST, Supply Start Date: 08/22/22 Status: Ordered omega-3 polyunsaturated fatty acids ethyl esters 1000 mg oral capsule 1 capsule, By Mouth, 2 times a day, # 180 capsule, 3 Refills, [facility] STORE [id number], 90, TAKE 1 CAPSULE BY MOUTH TWICE A DAY, 183, cm, 02/08/22 6:42:00 EDT, Height, 123.2, kg, 02/07/22 12:47:00 EDT, Dry Weight Start Date: 02/09/22 Status: Ordered omeprazole 20 mg oral enteric coated capsule 1 capsule, By Mouth, Daily, # 90 capsule, 0 Refills, Maintenance, 09/09/22 8:09:00 EDT, [facility]/pharmacy #[id number], 183, cm, 09/07/22 10:39:00 EDT, Height, 123.2, kg, 02/07/22 12:47:00 EDT, Dry Weight Start Date: 09/09/22 Status: Ordered PAP Supplies - Mask, Tubing, Filters, Head Gear, Chin Strap, and Water Chamber PAP Supplies - Mask, Tubing, Filters, Head Gear, Chin Strap, and Water Chamber, See Instructions, #1 each, Refills 12, Tot. Refills 12, Maintenance, to be used with CPAP machine for dx: KERMIT G47.30, 08/22/22 13:50:00 EST, Compound Start Date: 08/22/22 Status: Ordered polyethylene glycol 3350 oral powder for reconstitution See Instructions, DISSOLVE 17 GRAMS IN WATER & DRINK ONCE A DAY UNTIL BM, IF NO BM DRINK 2X/DAY. MAX 4 TIMES DAILY, # 510 Gm, 1 Refills, Maintenance, 08/31/22 9:06:00 EDT, [facility]/pharmacy #[id number], 14,DISSOLVE 17 GRAMS IN WATER & DRINK ONCE A DAY UNTIL BM,... Start Date: 08/31/22 Status: Ordered pregabalin 300 mg oral capsule 1 capsule = 300 mg, By Mouth, 2 times a day, PRN pain, one tab twice daily prn pain, # 60 capsule, 0 Refills, Maintenance, 06/29/21 15:41:00 EST, Capsule, [facility]/pharmacy #[id number], Partial fill upon patient request if the prescription is for a schedule II o... Start Date: 06/29/21 Stop Date: 07/29/21 Status: Ordered primidone 50 mg oral tablet 100 mg, 2, tablet, By Mouth, 3 times a day, Rx'd by Neurology at [facility]/ Dr. Murphy, Refills 0, Maintenance, 03/07/19 8:44:30 [...] drug. Start Date: 02/08/22 Status: Ordered Shower chair Shower chair, See Instructions, # 1 each, Refills 0, Tot. Refills 0, Maintenance, M54.9 and M79.606, for 99mo, 08/22/22 13:48:00 EST, Supply Start Date: 08/22/22 Status: Ordered Shower Chair See Instructions, # 1 each, Refills 0, Tot. Refills 0, Maintenance, DX: M51. 26 please send to [facility], 08/08/22 15:41:00 EST, Supply Start Date: 08/08/22 Status: Ordered Symbicort 160mcg/4.5mcg Inhaler 2, puffs, Inhalation, 2 times a day, # 6 Gm, Refills 0, Tot. Refills 0, Maintenance, 12/27/21 12:43:00 EDT, Aerosol, Route to Pharmacy Electronically, [id number], [facility]/pharmacy #[id number], 184, cm, 12/27/21 11:50:00 EDT, Height Start Date: 12/27/21 Status: Ordered Tylenol Extra Strength 500 mg oral tablet 2 tablet = 1,000 mg, By Mouth, 3 times a day, PRN as needed for pain, # 100 tablet, 5 Refills, Maintenance, 12/07/21 10:44:00 EDT, Tablet, [facility]/pharmacy #[id number], Partial fill upon patient request if theprescription is for a schedule II opioid drug., 184... Start Date: 12/07/21 Status: Ordered valsartan 320 mg oral tablet 1 tablet, By Mouth, Daily, # 90 tablet, 3 Refills, Maintenance, 03/15/22 14:29:00 EDT, [facility], 183, cm, 02/08/22 6:42:00 EDT, Height, 123.2, [...] provided increased discomfort related to nerves. 3Seeing [place] [facility] and sleep. Given a trial of Tegretol 200 mg upto 2 tablets twice a day andadvised to continue with Lyrica 300 mg twice a day. Had some improvement of the facial pain with this regimen. 4Seeing [place] [facility] and asleep. On 09/11/2018 started on a trial of primidone 50 mg, 1 tablet for 1 week and then twice a day. 5Seeing Aydin Castrejon 6per pt, he is on disability, seen by Dr. Pollock 7Simvastatin 40 mg d/sedrick. Social History Social History Type Response Smoking Status 5-9 cigarettes (betw een 1/4 to 1/2 pack)/day in last 30 days entered on: 7/11/22 Sex Patient Care team information Care Team Personnel Name: Nilayneil Casandra Position: [facility]UAN Office Staff Member Role: Lifetime Consulting Physician Name: Ivone Oneil MD Position: [facility] Primary Care Physician Member Role: PCP Address: Address: [address] [place], [place] [id number]- Care Team Related Persons Name: MURRAYJARROD SZYMANSKI Address: home [address] [place] [address] Name: LOLA BRADFORD Address: home [address] [place] [address] Name: GOLDIE LERMA Address: [place] [address] Name: CASANDRA LERMA Address: [place] [address] Name: KADE LERMA Address: home [address] [place] [id number] Name: KADE LERMA Address: home [address] [place] [id number]
--- OUTSIDE RECORDS SUMMARY | 2023-11-02 08:21 | XMS_ITS | Continuity of Care Document ---
Author Organization [facility] Address [address] [place] [address]- Care Team Providers Care Bone Worker Name Role Phone Contractor Krystal FERNANDEZ Primary Care Physician Encounter [facility] Date(s): 01/12/21 - 02/11/[address] [id number] Allergies, Adverse Reactions, Alerts Substance Reaction Severity [...] 02/16/16 Given tetanus/diphtheria/pertussis, acel(Tdap) 11/25/14 Given Medications amLODIPine 10 mg oral tablet 10 mg, 1, tablet, By Mouth, Daily, # 90 tablet, Refills 3, Tot. Refills 3, Maintenance, 10/30/20 15:08:00 EDT, Route to Pharmacy Electronically, [facility]/pharmacy #[id number], 184, cm, 10/30/20 14:15:00 EDT, Height, 123.27, kg, 06/25/19 13:22:00 EST, Dry Weight Start Date: 10/30/20 Status: Ordered aspirin 81 mg oral delayed release tablet 81 mg, 1, tablet, By Mouth, Daily, # 90 tablet, Refills 0, Tot. Refills 0, Maintenance, 01/01/21 11:26:00 EDT, Route to Pharmacy Electronically, [facility]/pharmacy #[id number], Partial fill upon patient request if the prescription is for a schedule II opioid drug... Start Date: 01/01/21 Status: Ordered aspirin 81 mg oral tablet 1 tablet = 81 mg, By Mouth, Daily, # 90 tablet, 3 Refills, Maintenance, 01/15/20 9:51:00 EDT, Tablet, [facility]/pharmacy #[id number], 184, cm, 01/15/20 9:11:00 EDT, Height, [...] Need length 99 months Please send to [facility], 01/21/21 13:20:00 EDT, Supply Start Date: 01/21/21 Status: Ordered Claritin 10 mg oral tablet 10 mg, 1, tablet, By Mouth, Daily, # 30 tablet, Refills 3, Tot. Refills 3, Maintenance, 01/29/21 9:13:00 EDT, Route to Pharmacy Electronically, [facility]/pharmacy #[id number], 184, cm, 01/29/21 9:06:00 EDT, Height, 123.27, kg, 06/25/19 13:22:00 EST, Dry Weight Start Date: 01/29/21 Status: Ordered Compression- Lower Extremity (Knee High) [...] 08/17/20 13:12:00 EST, Route to Pharmacy Electronically, [facility]/pharmacy #[id number], 184, cm, 02/28/20 15:58:00 EDT, Height, 123.27,... Start Date: 08/17/20 Stop Date: 08/02/23 Status: Ordered cyanocobalamin 1000 mcg oral tablet 1,000 mcg, 1, tablet, By Mouth, Daily, # 90 tablet, Refills 11, Tot. Refills 11, Maintenance, 08/02/23 13:12:00 EST, Route to Pharmacy Electronically, [facility]/pharmacy #[id number], 184, cm, 01/01/21 10:56:00 EDT, Height, [...] DAY NEEDED Start Date: 02/28/20 Status: Ordered Diovan 320 mg oral tablet 1 tablet = 320 mg, By Mouth, Daily, # 90 tablet, 3 Refills, Maintenance, 01/01/21 11:24:00 EDT, Tablet, [facility]/pharmacy #[id number], 184, cm, 01/01/21 10:56:00 EDT, Height, 123.27, kg, 06/25/19 13:22:00 EST, Dry Weight Start Date: 01/01/21 Status: Ordered docusate sodium 100 mg oral tablet 1 tablet = 100 mg, By Mouth, 2 times a day, PRN for constipation, # 60 tablet, 5 Refills, Maintenance, 01/11/21 15:23:00 EDT, Tablet, [facility]/pharmacy #[id number], Partial fill upon patient request if the prescription is for a schedule II opioid drug., 184, cm,... Start Date: 01/11/21 Status: Ordered fluticasone 50 mcg/inh nasal spray See Instructions, USE 1 SPRAY IN EACH NOSTRIL EVERY MORNING, # 16 mL, 3 Refills, 01/29/21 9:11:00 EDT, [facility]/pharmacy #[id number], 30, USE 1 SPRAY IN EACH NOSTRIL EVERY MORNING, 184, cm, 01/29/21 9:06:00 EDT, Height, 123.27, kg, 06/25/19 13:22:00 EST, Dry Weight Start Date: 01/29/21 Status: Ordered Freestyle Lite Lancets See Instructions, # 50 each, Refills 5, Tot. Refills 5, Maintenance, Use to test BS daily for DM, E11.65, 07/22/18 19:22:15 EST, Compound Start Date: 07/22/18 Status: Ordered Freestyle Lite Lancets See Instructions, # 100 each, Refills 11, Tot. Refills 11, Maintenance, Use to test BS 3 times a day for DM, E11.65, 01/29/21 9:16:00 EDT, Compound, 184, cm, 01/29/21 9:06:00 EDT, Height, 123.27, kg,06/25/19 13:22:00 EST, Dry Weight Start Date: 01/29/21 Status: Ordered Freestyle Lite Monitor See Instructions, [...] 19:31:42, Compound Start Date: 07/11/16 Status: Ordered glipiZIDE 5 mg oral tablet, extended release TAKE 1 TABLET BY MOUTH TWICE A DAY Start Date: 01/29/21 Status: Ordered lidocaine 5% topical ointment 1 application, Topically, 3 times a day, PRN Pain , Mild, # 100 Gm, 2 Refills, Maintenance, 02/10/21 13:09:00 EDT, Ointment, [facility]/pharmacy #[id number], Partial fill upon patient request if the prescription is for a schedule II opioid drug., 1 application Top... Start Date: 02/10/21 Status: Ordered metFORMIN 500 mg oral tablet 1 tablet = 500 mg, By Mouth, Daily, with meals, # 90 tablet, 11 Refills, Maintenance, 01/01/21 11:24:00 EDT, Tablet, [facility]/pharmacy #[id number], 184, cm, 01/01/21 10:56:00 EDT, Height, 123.27, kg, 06/25/19 13:22:00 EST, Dry Weight Start Date: 01/01/21 Status: Ordered omega-3 polyunsaturated fatty acids ethyl esters 1000 mg oral capsule 1 capsule = 1,000 mg, By Mouth, 2 times a day, # 60 capsule, 11 Refills, Maintenance, 01/01/21 11:25:00 EDT, Capsule, [facility]/pharmacy #[id number], 1 capsule By Mouth 2 times a day,x30 days, 184, cm, 01/01/21 10:56:00 EDT, Height, 123.27, kg, 06/25/19 13:22:00... Start Date: 01/01/21 Stop Date: 12/27/21 Status: Ordered omeprazole 20 mg oral enteric coated capsule 1 capsule = 20 mg, By Mouth, Daily, # 30 capsule, 2 Refills, Maintenance, 02/06/20 16:40:00 EDT, ECCapsule, [facility]/pharmacy #[id number], 184, cm, 01/29/20 14:16:00 EDT, Height, 123.27, kg, 06/25/19 13:22:00 EST, Dry Weight Start Date: 02/06/20 Status: Ordered pregabalin 300 mg oral capsule TAKE 1 CAPSULE BY MOUTH TWICE A DAY NEEDED FOR PAIN Start Date: 01/29/21 Status: Ordered Shower chair Shower chair, See Instructions, # 1 each, Refills 0, Tot. Refills 0, Maintenance, Use as needed stevie, 12/31/20 9:51:00 EDT, Supply Start Date: 12/31/20 Status: Ordered Shower Chair See Instructions, # 1 each, Refills 0, Tot. Refills 0, Maintenance, DX: M51. 26 please send to [facility], 01/21/21 13:20:00 EDT, Supply Start Date: 01/21/21 Status: Ordered sulindac 150 mg oral tablet See Instructions, TAKE 1 TABLET BY MOUTH TWICE A DAY NEEDED FOR PAIN, # 28 tablet, 0 Refills, Maintenance, [facility], 184, cm, 02/01/21 10:51:00 EDT, Height, 123.27, kg, 06/25/19 13:22:00 EST, Dry Weight Start Date: 02/01/21 Status: Ordered traMADol 50 mg oral tablet TAKE 1 TO 2 TABLETS BY MOUTH EVERY 6 HOURS NEEDED FOR PAIN Start Date: 01/29/21 Status: Ordered Problem List Condition Effective Dates [...] provided increased discomfort related to nerves. 3Seeing [place] neurology and sleep. Given a trial of Tegretol 200 mg upto 2 tablets twice a day andadvised to continue with Lyrica 300 mg twice a day. Had some improvement of the facial pain with this regimen. 4Seeing [place] [facility] and asleep. On 09/11/2018 started on [...]
--- OUTSIDE RECORDS SUMMARY | 2023-11-02 08:21 | XMS_ITS | Continuity of Care Document ---
Author Organization [facility] Address [address] [place] [id number]- Care Team Providers Care Counselor Marriage And Family Name Role Phone Contractor Krystal FERNANDEZ Primary Care Physician Encounter [facility] Date(s): 06/03/21 - 07/03/[address] [address]- Allergies, Adverse Reactions, Alerts Substance Reaction Severity [...] acel(Tdap) 11/25/14 Given 1Result Comment: DILUENT LOT#: [id number] EXP: 11/2022 MFG: FRESENSIUS Medications amitriptyline 100 mg oral tablet 1 tablet = 100 mg, By Mouth, Daily at bedtime, # 30 tablet, 3 Refills, Maintenance, 04/13/21 10:02:00 EDT, Tablet, [facility]/pharmacy #[id number], Partial fill upon patient request if the prescription is for a schedule II opioid drug., 184, cm, 04/13/21 9:26:00 E... Start Date: 04/13/21 Stop Date: 08/11/21 Status: Ordered amlodipine-valsartan 10 mg-320 mg oral tablet 1 tablet, By Mouth, Daily, Please discontinue amlodipine 10 mg and valsartan 320 mg separate scripts and appreciate this combo script. Thank you., # 30 tablet, 3 Refills, Maintenance, 03/03/21 17:24:00 EDT, Tablet, [facility]/pharmacy #[id number], Partial fill upo... Start Date: 03/03/21 Status: Ordered aspirin 81 mg oral delayed release tablet 81 mg, 1, tablet, By Mouth, Daily, # 90 tablet, Refills 0, Tot. Refills 0, Maintenance, 01/01/21 11:26:00 EDT, Route to Pharmacy Electronically, [facility]/pharmacy #[id number], Partial fill upon patient request if the prescription is for a schedule II opioid drug... Start Date: 01/01/21 Status: Ordered Auto CPAP Auto CPAP, See [...] Need length 99 months Please send to [facility], 01/21/21 13:20:00 EDT, Supply Start Date: 01/21/21 Status: Ordered carbidopa-levodopa 25 mg-100 mg oral tablet 1 tablet, By Mouth, 3 times a day, Rx'd by Neurology at [facility] Alisa Weippe/ Dr. Murphy, # 270 tablet, 0 Refills, Maintenance, 04/15/21 23:30:00 EDT, Tablet, Partial fill upon patient request if the prescription is for a schedule II opioid drug. Start Date: 04/15/21 Status: Ordered chlorthalidone 25 mg oral tablet 1, tablet, By Mouth, Daily, # 30 tablet, Refills 5, Route to Pharmacy Electronically, [id number], 184, cm, 03/30/21 16:08:00 EDT, Height, 123.27, kg, 06/25/19 13:22:00 EST, Dry Weight Start Date: 04/07/21 Status: Ordered Claritin 10 mg oral tablet 10 mg, 1, tablet, By Mouth, Daily, more sea necesario para alergia, # 30 tablet, Refills 5, Tot. Refills 5, Maintenance, 04/13/21 10:04:00 EDT, Route to Pharmacy Electronically, [facility]/pharmacy #[id number], 184, cm, 04/13/21 9:26:00 EDT, Height, 123.27, kg, 01... Start Date: 04/13/21 Status: Ordered clonazePAM 2 mg oral tablet See Instructions, 1 tablet by mouth only NEEDED for severe panic attack. Dispense: #20 tabs per 30d., # 20 tablet, 0 Refills, Maintenance, 06/22/21 15:50:00 EST, Tablet, [facility]/pharmacy #[id number], Partial fill upon patient request if the prescription is... Start Date: 06/22/21 Status: Ordered Compression Stockings See Instructions, # [...] EDT, Supply Start Date: 01/27/21 Status: Ordered Cortizone-10 Intensive Healing Formula 1% topical cream 1 application, Topically, 3 times a day, PRN Itch, # 60 Gm, 0 Refills, Maintenance, 03/03/21 17:36:00 EDT, Cream, [facility]/pharmacy #[id number], Partial fill upon patient request if the prescription is for a schedule II opioid drug., 1 application Topically 3 ti... Start Date: 03/03/21 Status: Ordered cyanocobalamin 1000 mcg oral tablet 1,000 mcg, 1, tablet, By Mouth, Daily, # 90 tablet, Refills 11, Tot. Refills 11, Maintenance, 08/02/23 13:12:00 EST, Route to Pharmacy Electronically, [facility]/pharmacy #[id number], 184, cm, 01/01/21 10:56:00 EDT, Height, [...] Dry Weight Start Date: 02/19/20 Status: Ordered docusate sodium 100 mg oral tablet 1 tablet = 100 mg, By Mouth, 2 times a day, PRN for constipation, # 60 tablet, 5 Refills, Maintenance, 01/11/21 15:23:00 EDT, Tablet, [facility]/pharmacy #[id number], Partial fill upon patient request if the prescription is for a schedule II opioid drug., 184, cm,... Start Date: 01/11/21 Status: Ordered escitalopram 10 mg oral tablet 1 tablet = 10 mg, By Mouth, Daily, New medication for anxiety and depression (started 06/01/21), # 30 tablet, 5 Refills, Maintenance, 06/01/21 11:00:00 EST, Tablet, [facility]/pharmacy #[id number], Partial fill upon patient request if the prescription is for a jessica... Start Date: 06/01/21 Status: Ordered fluticasone 50 mcg/inh nasal spray See Instructions, USE 1 SPRAY IN EACH NOSTRIL EVERY MORNING, # 16 mL, 3 Refills, 01/29/21 9:11:00 EDT, [facility]/pharmacy #[id number], 30, USE 1 SPRAY IN EACH [...] Dry Weight Start Date: 03/30/21 Status: Ordered lidocaine 5% topical ointment 1 application, Topically, 3 times a day, PRN Pain , Mild, # 100 Gm, 2 Refills, Maintenance, 02/10/21 13:09:00 EDT, Ointment, [facility]/pharmacy #[id number], Partial fill upon patient request if the prescription is for a schedule II opioid drug., 1 application Top... Start Date: 02/10/21 Status: Ordered magnesium oxide 400 mg oral tablet 1 tablet = 400 mg, By Mouth, Daily, Rx'd by Neurology at [facility]/ Dr. Murphy, 0 Refills, Maintenance, 04/15/21 23:30:00 EDT, Partial fill upon patient request if the prescription is for a schedule II opioid drug. Start Date: 04/15/21 Status: Ordered metFORMIN 500 mg oral tablet 1 tablet = 500 mg, By Mouth, 2 times a day, New script. Please discontine script order for metformin 500 mg daily, new script for TWICE daily., # 60 tablet, 3 Refills, Maintenance, 03/03/21 17:29:00 EDT, Tablet, [facility]/pharmacy #[id number], Partial fill upon p... Start Date: 03/03/21 Status: Ordered nicotine 21 mg/24 hr transdermal film, extended release 1 patch, Topically, Daily, for 6 week(s), Rx in [place], # 42 patch, 1 Refills, Acute 08/16/21 16:13:00 EST, 05/24/21 16:13:00 EST, Patch, [facility]/pharmacy #[id number], Partial fill upon patient request if theprescription is for a schedule II opioid drug., 1 p... Start Date: 05/24/21 Stop Date: 08/16/21 Status: Ordered omega-3 polyunsaturated fatty acids ethyl esters 1000 mg oral capsule 1 capsule = 1,000 mg, By Mouth, 2 times a day, # 60 capsule, 11 Refills, Maintenance, 01/01/21 11:25:00 EDT, Capsule, [facility]/pharmacy #[id number], 1 capsule By Mouth 2 times a day,x30 days, 184, cm, 01/01/21 10:56:00 EDT, Height, 123.27, kg, 06/25/19 13:22:00... Start Date: 01/01/21 Stop Date: 12/27/21 Status: Ordered omeprazole 20 mg oral enteric coated capsule 1 capsule, By Mouth, Daily, # 90 capsule, 0 Refills, [id number], 184, cm, 06/14/21 11:01:00 EST, Height, 123.27, kg, 06/25/19 13:22:00 EST, Dry Weight Start Date: 06/23/21 Status: Ordered pregabalin 300 mg oral capsule 1 capsule = 300 mg, By Mouth, 2 times a day, PRN pain, one tab twice daily prn pain, # 60 capsule, 0 Refills, Maintenance, 06/29/21 15:41:00 EST, Capsule, [id number], Partial fill upon patient request if the prescription is for a schedule II o... Start Date: 06/29/21 Stop Date: 07/29/21 Status: Ordered Shower Chair See Instructions, # 1 each, Refills 0, Tot. Refills 0, Maintenance, DX: M51. 26 please send to [facility], 01/21/21 13:20:00 EDT, Supply Start Date: 01/21/21 Status: Ordered sulindac 150 mg oral tablet See Instructions, TAKE 1 TABLET BY MOUTH TWICE A DAY NEEDED FOR PAIN, # 28 tablet, 0 Refills, Maintenance, [id number], 184, cm, 02/01/21 10:51:00 EDT, Height, 123.27, kg, 06/25/19 13:22:00 EST, Dry Weight Start Date: 02/01/21 Status: Ordered Tylenol Extra Strength 500 mg oral tablet 2 tablet = 1,000 mg, By Mouth, 3 times a day, PRN as needed for pain, # 100 tablet, 5 Refills, Maintenance, 04/13/21 10:08:00 EDT, Tablet, [facility]/pharmacy #[id number], Partial fill upon patient request if theprescription is for a schedule II opioid drug., 184... Start Date: 04/13/21 Status: Ordered Problem List Condition Effective Dates Status Health Status Inform ant Polyp of colon, adenomatous( Confirmed) 1 08/09/16 Active Atypical facial pain, left(C onfirmed) 2, 3 Active Chronic low back pain(Confirmed) Active Muscle cramps of lower extre mities + elevated CPK(Confirmed) Active Degeneration of lumbar inter vertebral disc(Confirmed) Active Diastolic dysfunction(Confirmed) Active Disorder of toe(Confirmed) Active Dyslipidemia(Confirmed) Active Bilateral edema of lower extremity(Confirmed) Active Tremor of both hands(Confirmed) 4 Active Generalized anxiety disorder with panic attacks(Confirmed) Active Hearing impairment(Confirmed) Active HTN (hypertension)(Confirmed) Active Insomnia(Confirmed) Active Knee pain, bilateral(Confirmed) Active Bilateral lumbar radiculopathy(Confirmed) Active Lumbosacral radiculopathy(Confirmed) Active Lumbosacral spondylosis with out myelopathy(Confirmed) Active Memory impairment of gradual onset(Confirmed) Active Myofascial pain(Confirmed) Active Obese class II(Confirmed) Active Obesity (BMI 30-39.9)(Confirmed) Active KERMIT (obstructive sleep apnea ): bipap 2 liters oxygen(Confirmed) Active Osteoarthritis of both knees(Confirmed) Active Left elbow pain(Confirmed) Active Leg pain(Confirmed) Active Right leg pain(Confirmed) Active Bilateral arm pain(Confirmed) Active Panic disorder(Confirmed) 5, 6 Active Encounter for annual physica l exam(Confirmed) Active Encounter for smoking cessat ion counseling(Confirmed) Active Lumbar herniated disc(Confirmed) Active Pruritic dermatitis(Confirmed) Active Recurrent major depression(Confirmed) Active 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 3Seeing [place] neurology and sleep. Given a trial of Tegretol 200 mg upto 2 tablets twice a day andadvised to continue with Lyrica 300 mg twice a day. Had some improvement of the facial pain with this regimen. 4Seeing [place] neurology and asleep. On 09/11/2018 started on a trial of primidone 50 mg, 1 tablet for 1 week and then twice a day. 5Seeing Aydin Castrejon 6per pt, he is on disability, seen by Dr. Pollock 7Simvastatin 40 mg d/sedrick. Social History Social History Type Response Smoking Status 10 or more cigarette s (1/2 pack or more)/day in last 30 days; Interested in cessation: Yes; Other: 1ppd; entered on: 05/24/21 Sex
--- OUTSIDE RECORDS SUMMARY | 2023-11-02 08:21 | XMS_ITS | Continuity of Care Document ---
Author Organization [facility] ter Address [address] [place] [id number]- Care Team Providers Care Maintenance Parts Technician Name Role Phone Terence PRATHER, Azra Primary Care Physician Encounter [facility] Date(s): 05/29/20 - 06/28/[address] [id number] Attending Physician: AdmCristian freeman Admitting Physician: AdmtrCristian Referring Physician: Admtr, Ar8 Allergies, Adverse Reactions, Alerts Substance Reaction Severity Status penicillin Unknown Active gabapentin Active Lantus Active Ventolin HFA Active Flovent HFA Active ZyrTEC Active SEROquel Active traZODone Active hydrOXYzine hydrochloride Ac tive Immunizations Given and Recorded Vaccine Date Status Refusal Reason zoster vaccine, inactivated 06/17/19 Recorded influenza virus vaccine, inactivated 03/07/19 Give n influenza virus vaccine, inactivated 03/28/18 Give n influenza virus vaccine, inactivated 03/30/16 Give n influenza virus vaccine, inactivated 03/04/16 Give n influenza virus vaccine, inactivated 04/16/15 Give n Influenza Vaccine (oldterm) 02/17/17 Recorded pneumococcal 23-valent vaccine 02/16/16 Given tetanus/diphtheria/pertussis, acel(Tdap) 11/25/14 Given Medications amLODIPine 10 mg oral tablet 10 mg, 1, tablet, By Mouth, Daily, # 90 tablet, Refills 3, Tot. Refills 3, Maintenance, 01/15/20 9:51:00 EDT, Route to Pharmacy Electronically, [facility]/pharmacy #[id number], 184, cm, 01/15/20 9:11:00 EDT, Height, 123.27, kg, 06/25/19 13:22:00 EST, Dry Weight Start Date: 01/15/20 Stop Date: 03/15/20 Status: Ordered aspirin 81 mg oral tablet 1 tablet = 81 mg, By Mouth, Daily, # 90 tablet, 3 Refills, Maintenance, 01/15/20 9:51:00 EDT, Tablet, [facility]/pharmacy #[id number], 184, cm, 01/15/20 9:11:00 EDT, [...] EDT, Supply Start Date: 01/15/20 Status: Ordered Claritin 10 mg oral tablet 10 mg, 1, tablet, By Mouth, Daily, # 30 tablet, Refills 0, Tot. Refills 0, Maintenance, 02/07/20 9:49:00 EDT, Route to Pharmacy Electronically, [facility]/pharmacy #[id number], 184, cm, 01/29/20 14:16:00 EDT, Height, 123.27, kg, 06/25/19 13:22:00 EST, Dry Weight Start Date: 02/07/20 Status: Ordered Compression- Lower Extremity (Knee High) See Instructions, # 1 each, Refills 3, Tot. Refills 3, Maintenance, dx bilateral leg edema, wear daily 15-20 mmHG 1 pair, 03/12/20 11:15:00 EDT, Supply, 184, cm, 03/12/20 10:29:00 EDT, Height, 123.27, kg, 06/25/19 13:22:00 EST, Dry Weight Start Date: 03/12/20 Status: Ordered Compression- Lower Extremity (Knee High) See Instructions, # 2 each, Refills 0, Tot. Refills 0, Maintenance, Pressure of 20-30 mmHG. For bilateral lower extremity venous stasis with edema/swelling, 04/06/18 15:30:34 EDT, Compound Start Date: 04/06/18 Status: Ordered cyanocobalamin 1000 mcg oral tablet 1,000 mcg, 1, tablet, By Mouth, Daily, for 90 days, # 90 tablet, Refills 1, Tot. Refills 1, Hard Stop 08/17/20 13:12:00 EST, 02/19/20 13:12:00 EDT, Route to Pharmacy Electronically, [id number], 184, cm, 01/29/20 14:16:00 EDT, Height, 123.2... Start Date: 02/19/20 Stop Date: 08/17/20 Status: Ordered cyanocobalamin 1000 mcg oral tablet 1,000 mcg, 1, tablet, By Mouth, Daily, # 90 tablet, Refills 11, Tot. Refills 11, Maintenance, 08/17/20 13:12:00 EST, Route to Pharmacy Electronically, [facility]/pharmacy #[id number], 184, cm, 02/28/20 15:58:00 EDT, Height, 123.27, kg, 06/25/19 13:22:00 EST, Dry W... Start Date: 08/17/20 Stop Date: 08/02/23 Status: Ordered Diabetic socks Diabetic socks, See [...] 3 Refills, Maintenance, 01/15/20 9:51:00 EDT, Tablet, [facility]/pharmacy #[id number], 184, cm, 01/15/20 9:11:00 EDT, Height, 123.27, kg, 06/25/19 13:22:00 EST, Dry Weight Start Date: 01/15/20 Stop Date: 03/15/20 Status: Ordered fluticasone 50 mcg/inh nasal spray See Instructions, USE 1 SPRAY IN EACH NOSTRIL EVERY MORNING, # 16 mL, 0 Refills, Maintenance, [id number], 30, USE 1 SPRAY IN EACH NOSTRIL [...] AND NOON Start Date: 02/28/20 Status: Ordered Lyrica 300 mg oral capsule 1 capsule = 300 mg, By Mouth, 2 times a day, # 120 capsule, 2 Refills, Maintenance, 01/27/20 10:39:00 EDT, Capsule, [id number], 184, cm, 01/15/20 9:52:00 EDT, Height, 123.27, kg, 06/25/19 13:22:00 EST, Dry Weight Start Date: 01/27/20 Stop Date: 07/25/20 Status: Ordered metFORMIN 500 mg oral tablet 1 tablet = 500 mg, By Mouth, Daily, with meals, # 90 tablet, 11 Refills, Maintenance, 03/02/20 9:56:00 EDT, Tablet, [id number], 184, cm, 02/28/20 15:58:00 EDT, Height, 123.27, kg, 06/25/19 13:22:00 EST, Dry Weight Start Date: 03/02/20 Status: Ordered omeprazole 20 mg oral enteric coated capsule 1 capsule = 20 mg, By Mouth, Daily, # 30 capsule, 2 Refills, Maintenance, 02/06/20 16:40:00 EDT, ECCapsule, [id number], 184, cm, 01/29/20 14:16:00 EDT, Height, 123.27, kg, 06/25/19 13:22:00 EST, Dry Weight Start Date: 02/06/20 Status: Ordered Problem List Condition Effective Dates [...] impairment(Confirmed) Active HTN (hypertension)(Confirmed) Active Insomnia(Confirmed) Active Bilateral lumbar radiculopathy(Confirmed) Active Memory impairment of gradual onset(Confirmed) Active Myofascial pain(Confirmed) Active Obesity (BMI 30-39.9)(Confirmed) Active KERMIT (obstructive sleep apnea ): bipap 2 liters oxygen(Confirmed) Active Osteoarthritis of both knees(Confirmed) Active Left elbow pain(Confirmed) Active Right leg pain(Confirmed) Active Bilateral [...] provided increased discomfort related to nerves. 3Seeing [place] neurology and sleep. Given a trial of Tegretol 200 mg upto 2 tablets twice a day andadvised to continue with Lyrica 300 mg twice a day. Had some improvement of the facial pain with this regimen. 4Seeing neurology and asleep. On 09/11/2018 started on [...]
--- OUTSIDE RECORDS SUMMARY | 2023-11-02 08:21 | XMS_ITS | Continuity of Care Document ---
Author Organization [facility] Address [address] [place] [address]- Care Team Providers Care Lumber Tripper Name Role Phone Contractor Krystal FERNANDEZ Primary Care Physician Encounter [facility] Date(s): 01/11/21 - 02/10/[address] [address]- Attending Physician: Not on Staff, Attending MD Referring Physician: Contractor Krystal FERNANDEZ Allergies, Adverse Reactions, Alerts Substance Reaction Severity [...] 10/30/20 15:08:00 EDT, Route to Pharmacy Electronically, [facility]/pharmacy #[id number], 184, cm, 10/30/20 14:15:00 EDT, Height, 123.27, kg, 06/25/19 13:22:00 EST, Dry Weight Start Date: 10/30/20 Status: Ordered aspirin 81 mg oral delayed release tablet 81 mg, 1, tablet, By Mouth, Daily, # 90 tablet, Refills 0, Tot. Refills 0, Maintenance, 01/01/21 11:26:00 EDT, Route to Pharmacy Electronically, [facility]/pharmacy #[id number], Partial fill upon patient request if the prescription is for a schedule II opioid drug... Start Date: 01/01/21 Status: Ordered aspirin 81 mg oral tablet 1 tablet = 81 mg, By Mouth, Daily, # 90 tablet, 3 Refills, Maintenance, 01/15/20 9:51:00 EDT, Tablet, [facility]/pharmacy #[id number], 184, cm, 01/15/20 9:11:00 EDT, Height, [...] Need length 99 months Please send to [facility], 01/21/21 13:20:00 EDT, Supply Start Date: 01/21/21 Status: Ordered Claritin 10 mg oral tablet 10 mg, 1, tablet, By Mouth, Daily, # 30 tablet, Refills 3, Tot. Refills 3, Maintenance, 01/29/21 9:13:00 EDT, Route to Pharmacy Electronically, [facility]/pharmacy #[id number], 184, cm, 01/29/21 9:06:00 EDT, Height, [...] 08/17/20 13:12:00 EST, Route to Pharmacy Electronically, [facility]/pharmacy #[id number], 184, cm, 02/28/20 15:58:00 EDT, Height, 123.27,... Start Date: 08/17/20 Stop Date: 08/02/23 Status: Ordered cyanocobalamin 1000 mcg oral tablet 1,000 mcg, 1, tablet, By Mouth, Daily, # 90 tablet, Refills 11, Tot. Refills 11, Maintenance, 08/02/23 13:12:00 EST, Route to Pharmacy Electronically, [facility]/pharmacy #[id number], 184, cm, 01/01/21 10:56:00 [...] 3 Refills, Maintenance, 01/01/21 11:24:00 EDT, Tablet, [facility]/pharmacy #[id number], 184, cm, 01/01/21 10:56:00 EDT, Height, 123.27, kg, 06/25/19 13:22:00 EST, Dry Weight Start Date: 01/01/21 Status: Ordered docusate sodium 100 mg oral tablet 1 tablet = 100 mg, By Mouth, 2 times a day, PRN for constipation, # 60 tablet, 5 Refills, Maintenance, 01/11/21 15:23:00 EDT, Tablet, [facility]/pharmacy #[id number], Partial fill upon patient request if the prescription is for a schedule II opioid drug., 184, cm,... Start Date: 01/11/21 Status: Ordered fluticasone 50 mcg/inh nasal spray See Instructions, USE 1 SPRAY IN EACH NOSTRIL EVERY MORNING, # 16 mL, 3 Refills, 01/29/21 9:11:00 EDT, [facility]/pharmacy #[id number], 30, USE 1 SPRAY [...] 2 Refills, Maintenance, 02/10/21 13:09:00 EDT, Ointment, [facility]/pharmacy #[id number], Partial fill upon patient request if the prescription is for a schedule II opioid drug., 1 application Top... Start Date: 02/10/21 Status: Ordered metFORMIN 500 mg oral tablet 1 tablet = 500 mg, By Mouth, Daily, with meals, # 90 tablet, 11 Refills, Maintenance, 01/01/21 11:24:00 EDT, Tablet, [facility]/pharmacy #[id number], 184, cm, 01/01/21 10:56:00 EDT, Height, 123.27, kg, 06/25/19 13:22:00 EST, Dry Weight Start Date: 01/01/21 Status: Ordered omega-3 polyunsaturated fatty acids ethyl esters 1000 mg oral capsule 1 capsule = 1,000 mg, By Mouth, 2 times a day, # 60 capsule, 11 Refills, Maintenance, 01/01/21 11:25:00 EDT, Capsule, [facility]/pharmacy #[id number], 1 capsule By Mouth 2 times a day,x30 days, 184, cm, 01/01/21 10:56:00 EDT, Height, 123.27, kg, 06/25/19 13:22:00... Start Date: 01/01/21 Stop Date: 12/27/21 Status: Ordered omeprazole 20 mg oral enteric coated capsule 1 capsule = 20 mg, By Mouth, Daily, # 30 capsule, 2 Refills, Maintenance, 02/06/20 16:40:00 EDT, ECCapsule, [facility]/pharmacy #[id number], 184, cm, 01/29/20 14:16:00 EDT, Height, [...] Maintenance, DX: M51. 26 please send to [facility], 01/21/21 13:20:00 EDT, Supply Start Date: 01/21/21 Status: Ordered sulindac 150 mg oral tablet See Instructions, TAKE 1 TABLET BY MOUTH TWICE A DAY NEEDED FOR PAIN, # 28 tablet, 0 Refills, Maintenance, [id number], 184, cm, 02/01/21 10:51:00 EDT, Height, 123.27, [...] provided increased discomfort related to nerves. 3Seeing [place] neurology and sleep. Given a trial of [...]
--- OUTSIDE RECORDS SUMMARY | 2023-11-02 08:21 | XMS_ITS | Continuity of Care Document ---
Author Organization [facility] Address [address] [place] [address]- Care Team Providers Care Licensed Dispensing Optician Name Role Phone Contractor Krystal FERNANDEZ Primary Care Physician [phone] [place] [facility] Date(s): 01/15/21 - 02/14/[address] [address] Allergies, Adverse Reactions, Alerts Substance Reaction Severity Status penicillin Unknown Active gabapentin Active hydrOXYzine hydrochloride Ac tive Lantus Active traZODone Active ZyrTEC Active SEROquel Active Ventolin HFA Active Flovent HFA Active Immunizations Given and Recorded Vaccine Date [...] 10/30/20 15:08:00 EDT, Route to Pharmacy Electronically, [facility]/pharmacy #[id number], 184, cm, 10/30/20 14:15:00 EDT, Height, 123.27, kg, 06/25/19 13:22:00 EST, Dry Weight Start Date: 10/30/20 Status: Ordered aspirin 81 mg oral delayed release tablet 81 mg, 1, tablet, By Mouth, Daily, # 90 tablet, Refills 0, Tot. Refills 0, Maintenance, 01/01/21 11:26:00 EDT, Route to Pharmacy Electronically, [facility]/pharmacy #[id number], Partial fill upon patient request if the prescription is for a schedule II opioid drug... Start Date: 01/01/21 Status: Ordered aspirin 81 mg oral tablet 1 tablet = 81 mg, By Mouth, Daily, # 90 tablet, 3 Refills, Maintenance, 01/15/20 9:51:00 EDT, Tablet, [facility]/pharmacy #[id number], 184, cm, 01/15/20 9:11:00 EDT, [...] Need length 99 months Please send to [facility], 01/21/21 13:20:00 EDT, Supply Start Date: 01/21/21 Status: Ordered Claritin 10 mg oral tablet 10 mg, 1, tablet, By Mouth, Daily, # 30 tablet, Refills 3, Tot. Refills 3, Maintenance, 01/29/21 9:13:00 EDT, Route to Pharmacy Electronically, [facility]/pharmacy #[id number], 184, cm, 01/29/21 9:06:00 EDT, Height, [...] 08/17/20 13:12:00 EST, Route to Pharmacy Electronically, [facility]/pharmacy #[id number], 184, cm, 02/28/20 15:58:00 EDT, Height, 123.27,... Start Date: 08/17/20 Stop Date: 08/02/23 Status: Ordered cyanocobalamin 1000 mcg oral tablet 1,000 mcg, 1, tablet, By Mouth, Daily, # 90 tablet, Refills 11, Tot. Refills 11, Maintenance, 08/02/23 13:12:00 EST, Route to Pharmacy Electronically, [facility]/pharmacy #[id number], 184, cm, 01/01/21 10:56:00 EDT, [...] 3 Refills, Maintenance, 01/01/21 11:24:00 EDT, Tablet, [facility]/pharmacy #[id number], 184, cm, 01/01/21 10:56:00 EDT, Height, 123.27, kg, 06/25/19 13:22:00 EST, Dry Weight Start Date: 01/01/21 Status: Ordered docusate sodium 100 mg oral tablet 1 tablet = 100 mg, By Mouth, 2 times a day, PRN for constipation, # 60 tablet, 5 Refills, Maintenance, 01/11/21 15:23:00 EDT, Tablet, [facility]/pharmacy #[id number], Partial fill upon patient request if the prescription is for a schedule II opioid drug., 184, cm,... Start Date: 01/11/21 Status: Ordered fluticasone 50 mcg/inh nasal spray See Instructions, USE 1 SPRAY IN EACH NOSTRIL EVERY MORNING, # 16 mL, 3 Refills, 01/29/21 9:11:00 EDT, [facility]/pharmacy #[id number], 30, USE 1 SPRAY IN EACH [...] 2 Refills, Maintenance, 02/10/21 13:09:00 EDT, Ointment, [facility]/pharmacy #[id number], Partial fill upon patient request if the prescription is for a schedule II opioid drug., 1 application Top... Start Date: 02/10/21 Status: Ordered metFORMIN 500 mg oral tablet 1 tablet = 500 mg, By Mouth, Daily, with meals, # 90 tablet, 11 Refills, Maintenance, 01/01/21 11:24:00 EDT, Tablet, [facility]/pharmacy #[id number], 184, cm, 01/01/21 10:56:00 EDT, Height, 123.27, kg, 06/25/19 13:22:00 EST, Dry Weight Start Date: 01/01/21 Status: Ordered omega-3 polyunsaturated fatty acids ethyl esters 1000 mg oral capsule 1 capsule = 1,000 mg, By Mouth, 2 times a day, # 60 capsule, 11 Refills, Maintenance, 01/01/21 11:25:00 EDT, Capsule, [facility]/pharmacy #[id number], 1 capsule By Mouth 2 times a day,x30 days, 184, cm, 01/01/21 10:56:00 EDT, Height, 123.27, kg, 06/25/19 13:22:00... Start Date: 01/01/21 Stop Date: 12/27/21 Status: Ordered omeprazole 20 mg oral enteric coated capsule 1 capsule = 20 mg, By Mouth, Daily, # 30 capsule, 2 Refills, Maintenance, 02/06/20 16:40:00 EDT, ECCapsule, [facility]/pharmacy #[id number], 184, cm, 01/29/20 14:16:00 EDT, [...] Maintenance, DX: M51. 26 please send to [facility], 01/21/21 13:20:00 EDT, Supply Start Date: 01/21/21 Status: Ordered sulindac 150 mg oral tablet See Instructions, TAKE 1 TABLET BY MOUTH TWICE A DAY NEEDED FOR PAIN, # 28 tablet, 0 Refills, Maintenance, [id number], 184, cm, 02/01/21 10:51:00 EDT, Height, 123.27, [...] provided increased discomfort related to nerves. 3Seeing [place] neurology and sleep. Given a trial of Tegretol 200 mg upto 2 tablets twice a day andadvised to continue with Lyrica 300 mg twice a day. Had some improvement of the facial pain with this regimen. 4Seeing [place] neurology and asleep. On 09/11/2018 started on [...]
--- OUTSIDE RECORDS SUMMARY | 2023-11-02 08:21 | XMS_ITS | Continuity of Care Document ---
Author Organization [facility] Address [address] [place] [address]- Care Team Providers Care Epic Ambulatory Analyst Name Role Phone Dayo Castano MD Primary Care Physician Encounter [facility] Date(s): 05/12/23 - 06/11/[address] [address]- Allergies, Adverse Reactions, Alerts Substance Reaction Severity Status penicillin Unknown Active gabapentin Active hydrOXYzine hydrochloride Ac tive Lantus Active Ventolin HFA Active Flovent HFA Active traZODone Active ZyrTEC Active SEROquel Active Immunizations Given and Recorded Vaccine Date Status Refusal Reason pneumococcal 20-valent conjugate vaccine 05/05/23 Given influenza virus vaccine, inactivated 04/04/23 Give n influenza virus vaccine, inactivated 03/31/22 Pavel rded influenza virus vaccine, inactivated 03/30/21 Give n influenza virus vaccine, inactivated 03/02/20 Pavel rded influenza virus vaccine, inactivated 03/07/19 Give n influenza virus vaccine, inactivated 03/28/18 Give n influenza virus vaccine, inactivated 02/10/18 Pavel rded influenza virus vaccine, inactivated 03/30/16 Give n influenza virus vaccine, inactivated 03/04/16 Give n influenza virus vaccine, inactivated 04/16/15 Give n [id number] 12y+ bivalent booster vax 02/21/23 Given SARS-CoV-2 (COVID-19) mRNA BNT-162b2 vac 1 06/01/21 Given SARS-CoV-2 (COVID-19) mRNA BNT-162b2 vac 11/07/20 Recorded SARS-CoV-2 (COVID-19) mRNA BNT-162b2 vac 10/17/20 Recorded zoster vaccine, inactivated 06/18/19 Recorded zoster vaccine, inactivated 06/17/19 Recorded zoster vaccine, inactivated 11/25/17 Recorded Influenza Vaccine (oldterm) 02/17/17 Recorded pneumococcal 23-valent vaccine 02/16/16 Given tetanus/diphtheria/pertussis, acel(Tdap) 11/25/14 Given 1Result Comment: DILUENT LOT#: [id number] EXP: 11/2022 MFG: FRESENSIUS Medications Albuterol (Eqv-ProAir HFA) 90 mcg/inh inhalation aerosol 2 puffs, Inhalation, Every 6 hours, please give pt whatver is covered by his insrance use with spacer chamber, # 18 Gm, 11 Refills, Maintenance, 04/04/23 8:43:00 EDT, [id number], Partial fillupon patient request if the prescription is for a... Start Date: 04/04/23 Status: Ordered amitriptyline 100 mg oral tablet 1 tablet = 100 mg, By Mouth, Daily at bedtime, Rx'd by neurology ([facility]), # 30 tablet, 0 Refills, Maintenance, 12/08/22 15:04:00 EDT, Tablet, Partial fill upon patient request if the prescription is for a schedule II opioid drug. Start Date: 12/08/22 Status: Ordered Aquaphor Healing for Baby topical ointment 1 application, Topically, 2 times a day, PRN as needed for dry skin, # 90 Gm, 0 Refills, Maintenance, 05/05/23 9:12:00 EST, Ointment, [id number], Partial fill upon patient request if the prescription is for a schedule II opioid drug., 1 applic... Start Date: 05/05/23 Status: Ordered Aripiprazole 2 mg, Rx'd by ANJEL Bear, Refills 0, Maintenance, 10/04/22 8:25:00 EDT, Partial fill upon patient request if the prescription is for a schedule II opioid drug. Start Date: 10/04/22 Status: Ordered Aspirin Low Dose 81 mg oral delayed release tablet 1 tablet, By Mouth, Daily, # 90 tablet, 3 Refills, Maintenance, 04/04/23 8:44:00 EDT, [id number], 183, cm, 04/04/23 8:24:00 EDT, Height, 123.2, kg, 02/07/22 12:47:00 EDT, Dry Weight Start Date: 04/04/23 Status: Ordered atorvastatin 20 mg oral tablet 1 tablet = 20 mg, By Mouth, Daily, cholesterol lowering pill to prevent heart attack and stroke, # 90 tablet, 3 Refills, Maintenance, 04/04/23 8:44:00 EDT, Tablet, [facility]/pharmacy #[id number], Partial fill upon patient request if the prescription is for a sche... Start Date: 04/04/23 Status: Ordered Auto CPAP Auto CPAP, See Instructions, # 1 each, Refills 0, Tot. Refills 0, Maintenance, Patient should be started on AutoCPAP 7-12 with a heated humidifier. Dx: KERMIT (G47.33), 08/22/22 13:51:00 EST, Compound Start Date: 08/22/22 Status: Ordered Benadryl 25 mg oral capsule 1 capsule = 25 mg, By Mouth, 3 times a day, PRN for allergy symptoms, Do not drive or operate machinery or a vehicle if sleepy/sedated from medicine. Do not take w/ fexofenadine., # 30 capsule, 0 Refills, Maintenance, 05/15/23 17:22:00 EST, Capsule, C... Start Date: 05/15/23 Status: Ordered Blood Pressure Monitor See Instructions, [...] Need length 99 months Please send to [facility], 01/21/21 13:20:00 EDT, Supply Start Date: 01/21/21 Status: Ordered carbidopa-levodopa 25 mg-100 mg oral tablet 1 tablet, By Mouth, 2 times a day, Rx'd by neurology at [facility], # 60 tablet, 0 Refills, Maintenance, 10/04/22 8:23:00 EDT, Tablet, Partial fill upon patient request if the prescription is for a schedule II opioid drug. Start Date: 10/04/22 Status: Ordered chlorthalidone 25 mg oral tablet 25 mg, 1, tablet, By Mouth, Daily in AM, Blood pressure, # 90 tablet, Refills 3, Tot. Refills 3, Maintenance, 04/04/23 8:45:00 EDT, Route to Pharmacy Electronically, [facility]/pharmacy #[id number], Partial fill upon patient request if the prescription is for a sc... Start Date: 04/04/23 Status: Ordered clonazePAM 1 mg oral tablet 1 tablet = 1 mg, By Mouth, 2 times a day, Rx'd by ANJEL Bear, 0 Refills, Maintenance, 10/04/22 8:25:00 EDT, Tablet, Partial fill upon patient request if the prescription is for a schedule II opioid drug. Start Date: 10/04/22 Status: Ordered Compression Stockings See Instructions, # [...] tablet, Refills 3, Tot. Refills 3, Maintenance, 04/04/23 8:46:00 EDT, Route to Pharmacy Electronically, [facility]/pharmacy #[id number], 183, cm, 04/04/23 8:24:00 EDT, Height, 123.2, kg, 02/07/22 12:47:00 EDT, Dry Weight Start Date: 04/04/23 Stop Date: 03/29/24 Status: Ordered Diabetic socks Diabetic socks, See [...] DAY NEEDED FOR PAIN, # 100 Gm, 5 Refills, Maintenance, 01/26/23 9:21:00 EDT, [facility]/pharmacy #[id number], 30, APPLY TOPICALLY TO AFFECTED ARE TWICEA DAY NEEDED FOR PAIN, 183, cm, 01/26/23 9:04:00... Start Date: 01/26/23 Status: Ordered diclofenac sodium 75 mg oral delayed release tablet 1 tablet = 75 mg, By Mouth, 2 times a day, PRN Pain , Severe, STOP DICLOFENAC GEL, # 60 tablet, 0 Refills, Maintenance, 05/19/23 12:59:00 EST, EC Tablet, [facility]/pharmacy #[id number], Partial fill upon patientrequest if the prescription is for a schedule II op... Start Date: 05/19/23 Status: Ordered Epsom Salt Epsom Salt, See Instructions, # 1 each, Refills 0, Tot. Refills 0, Maintenance, Please use to soak fingers daily for 5-10 minutes., 05/05/23 9:12:00 EST, Supply, 183, cm, 05/05/23 8:43:00 EST, Height, 123.2, kg, 02/07/22 12:47:00 EDT, Dry Weight Start Date: 05/05/23 Status: Ordered fexofenadine 60 mg oral tablet 1 tablet = 60 mg, By Mouth, 2 times a day, PRN for allergy symptoms, # 180 tablet, 0 Refills, Maintenance, 05/05/23 9:15:00 EST, Tablet, [facility]/pharmacy #[id number], Partial fill upon patient request if the prescription is for a schedule II opioid drug., 183,... Start Date: 05/05/23 Status: Ordered FREESTYLE 28G LANCETS FREESTYLE 28G LANCETS, See Instructions, # 100 Unknown, 11 Refills, Maintenance, USE TO TEST BS 3 TIMES A DAY FOR DM, E11.65, 05/17/22 13:56:00 EST, 183, cm, 02/08/22 6:42:00 EDT, Height, 123.2, kg, 02/07/22 12:47:00 EDT, Dry Weight Start Date: 05/17/22 Status: Ordered Heating Pad Heating Pad, See Instructions, # 1 each, Refills 0, Tot. Refills 0, Maintenance, dx: M25.55, 09/22/22 15:29:00 EDT, Supply Start Date: 09/22/22 Status: Ordered hydrOXYzine pamoate 100 mg oral capsule 1 capsule = 100 mg, By Mouth, Daily at bedtime, Rx'd by neurology at [facility], 0 Refills, Maintenance, 10/04/22 8:24:00 EDT, Capsule, Partial fill upon patient request if the prescription is for a schedule II opioid drug. Start Date: 10/04/22 Status: Ordered loratadine 10 mg oral tablet 1, tablet, By Mouth, Daily, PRN, # 90 tablet, Refills 3, Tot. Refills 3, NEEDED FOR ALLERGIES, 04/04/23 8:42:00 EDT, Route to Pharmacy Electronically, [facility]/pharmacy #[id number], 183, cm, 04/04/23 8:24:00EDT, Height, 123.2, kg, 02/07/22 12:47:00 EDT, Dry... Start Date: 04/04/23 Status: Ordered Metamucil 3.4 gm/5.2 gm oral powder for reconstitution = 3.4 Gm, By Mouth, 3 times a day, PRN as needed for constipation, # 425 Gm, 11 Refills, Maintenance, 09/12/22 20:51:00 EDT, REC Powder, [id number], Partial fill upon patient request if the prescription is for a schedule II opioid drug., 183,... Start Date: 09/12/22 Status: Ordered mirtazapine 7.5 mg oral tablet 1 tablet = 7.5 mg, By Mouth, Daily at bedtime, Rx'd by ANJEL Bear, # 30 tablet, 0 Refills, Maintenance, 10/04/22 8:25:00 EDT, Partial fill upon patient request if the prescription is for a schedule II opioid drug. Start Date: 10/04/22 Status: Ordered Nicotine 2 mg gum See Instructions, CHEW 1 PIECE OF GUM EVERY 2 HOURS NEEDED FOR SMOKING CESSATION, # 40 gum, 0 Refills, [id number], 184, cm, 12/27/21 11:50:00 EDT, Height Start Date: 02/01/22 Status: Ordered Non-slip shower mat Non-slip shower mat, See Instructions, # 1 each, Refills 0, Tot. Refills 0, Maintenance, M54.9 and M79.606, for 99mo, 08/22/22 13:49:00 EST, Supply Start Date: 08/22/22 Status: Ordered omega-3 polyunsaturated fatty acids ethyl esters 1000 mg oral capsule 1 capsule, By Mouth, 2 times a day, for 90 days, # 180 capsule, 3 Refills, Physician Stop 03/29/24 8:46:00 EDT, 04/04/23 8:46:00 EDT, [facility]/pharmacy #[id number], 1 capsule By Mouth 2 times a day,x90 days, 183, cm, 04/04/23 8:24:00 EDT, Height, 123.2, kg, 01/18... Start Date: 04/04/23 Stop Date: 03/29/24 Status: Ordered omeprazole 20 mg oral enteric coated capsule 1 capsule, By Mouth, Daily, # 90 capsule, 3 Refills, Maintenance, 04/04/23 8:46:00 EDT, [facility]/pharmacy #[id number], 183, cm, 04/04/23 8:24:00 EDT, Height, 123.2, kg, 02/07/22 12:47:00 EDT, Dry Weight Start Date: 04/04/23 Status: Ordered One Touch Ultra 2 Glucose Meter See Instructions, # 1 each, Refills 0, Tot. Refills 0, Maintenance, check BG BID dx: E11.65, 11/18/22 15:52:00 EDT, Supply, 183, cm, 11/10/22 8:32:00 EDT, Height, 123.2, kg, 02/07/22 12:47:00 EDT, Dry Weight Start Date: 11/18/22 Stop Date: 02/16/23 Status: Ordered One Touch Ultra Test Strips See Instructions, # 100 each, Refills 11, Tot. Refills 11, Maintenance, check BG BID dx: E11.65, 11/18/22 15:53:00 EDT, Supply, 183, cm, 11/10/22 8:32:00 EDT, Height, 123.2, kg, 02/07/22 12:47:00 EDT, Dry Weight Start Date: 11/18/22 Stop Date: 11/02/25 Status: Ordered One Touch UltraSoft Lancets See Instructions, # 100 each, Refills 11, Tot. Refills 11, Maintenance, check BG BID dx: E11., 11/17/22 15:52:00 EDT, Supply, 183, cm, 11/10/22 8:32:00 EDT, Height, 123.2, kg, 02/07/22 12:47:00 EDT, Dry Weight Start Date: 11/17/22 Stop Date: 11/01/25 Status: Ordered PAP Supplies - Mask, Tubing, [...] DAILY, # 510 Gm, 1 Refills, Maintenance, 04/04/23 8:46:00 EDT, [id number], 14,DISSOLVE 17 GRAMS IN WATER & DRINK ONCE A DAY UNTIL BM,... Start Date: 04/04/23 Status: Ordered pregabalin 300 mg oral capsule 1 capsule = 300 mg, By Mouth, 2 times a day, Rx'd by neurology at [facility], # 60 capsule, 0 Refills, Maintenance, 10/04/22 8:24:00 EDT, Capsule, Partial fill upon patient request if the prescription is for a schedule II opioid drug. Start Date: 10/04/22 Status: Ordered primidone 50 mg oral tablet 100 mg, 2, tablet, By Mouth, 2 times a day, rx'd by neurology at [facility], # 120 tablet, Refills 0, Maintenance, 12/08/22 15:06:00 EDT, Partial fill upon patient request if the prescription is for a schedule II opioid drug. Start Date: 12/08/22 Status: Ordered Raised Toilet Seat - Elongated Raised Toilet Seat - Elongated, See Instructions, # 1 each, Refills 0, Tot. Refills 0, Maintenance,to be used during toileting dx: M51.26, 02/25/22 16:17:00 EDT, Supply Start Date: 02/25/22 Status: Ordered rOPINIRole 0.25 mg oral tablet 2 tablet = 0.5 mg, By Mouth, 3 times a day, Rx'd by neurology at [facility], # 270 tablet, 0 Refills, Maintenance, 10/04/22 8:23:00 EDT, Tablet, Partial fill upon patient request if the prescription is for a schedule II opioid drug. Start Date: 10/04/22 Status: Ordered Shower chair Shower chair, See Instructions, # 1 each, Refills 0, Tot. Refills 0, Maintenance, M54.9 and M79.606, for 99mo, 08/22/22 13:48:00 EST, Supply Start Date: 08/22/22 Status: Ordered Shower Chair See Instructions, # 1 each, Refills 0, Tot. Refills 0, Maintenance, DX: M51. 26 please send to [facility], 08/08/22 15:41:00 EST, Supply Start Date: 08/08/22 Status: Ordered Symbicort 160mcg/4.5mcg Inhaler 2, puffs, Inhalation, 2 times a day, # 6 Gm, Refills 11, Tot. Refills 11, Maintenance, 04/04/23 8:44:00 EDT, Aerosol, Route to Pharmacy Electronically, [id number], [facility]/pharmacy #[id number], 183, cm, 04/04/23 8:24:00 EDT, Height, 12... Start Date: 04/04/23 Status: Ordered traMADol 50 mg oral tablet 2 tablet = 100 mg, By Mouth, Every 6 hours, PRN for pain, Rx'd by ortho, 0 Refills, Maintenance, 12/08/22 15:05:00 EDT, Tablet, Partial fill upon patient request if the prescription is for a scheduleII opioid drug. Start Date: 12/08/22 Stop Date: 12/15/22 Status: Ordered Tylenol Extra Strength 500 mg oral tablet 2 tablet = 1,000 mg, By Mouth, 3 times a day, PRN as needed for pain, # 100 tablet, 11 Refills, Maintenance, 04/04/23 8:43:00 EDT, Tablet, [facility]/pharmacy #[id number], Partial fill upon patient request if theprescription is for a schedule II opioid drug., 183... Start Date: 04/04/23 Status: Ordered valsartan 320 mg oral tablet 1 tablet, By Mouth, Daily, blood pressure, # 90 tablet, 3 Refills, Maintenance, 04/04/23 8:46:00 EDT, [id number], 183, cm, 04/04/23 8:24:00 EDT, Height, 123.2, kg, 02/07/22 12:47:00 EDT, Dry Weight Start Date: 04/04/23 Status: Ordered Xopenex HFA 45 mcg/inh inhalation aerosol 2 puffs, Inhalation, Every 4 hours, PRN Wheezing/Shortness of Breath, replaces Ventolin due to reaction, # 1 each, 1 Refills, Maintenance, 02/15/23 11:23:00 EDT, Aerosol, [id number], Partial fill upon patient request if the prescription is for... Start Date: 02/15/23 Stop Date: 04/16/23 Status: Ordered Problem List Condition Confirmation Course Effective Dates Status H ealth Status Informant Polyp of colon, adenomatous 1 Confirmed 08/09/16 Active Atypical facial pain, left 2, 3 Confirmed Active Constipation Confirmed Active Diastolic dysfunction Confirmed Active Dyslipidemia Confirmed Active Bilateral edema of lower extremity Confirmed Active Generalized anxiety disorder with panic attacks Confirmed Active Hearing impairment Confirmed Active History of left hip replacement Confirmed Active HTN (hypertension) Confirmed Active Insomnia Confirmed Active Knee pain, bilateral Confirmed Active Bilateral lumbar radiculopathy Confirmed Active Lumbosacral radiculopathy Confirmed Active Lumbosacral spondylosis without myelopathy Confirmed Active Memory impairment of gradual onset Confirmed Active Myofascial pain Confirmed Active Obese class I Confirmed Active Obesity (BMI 30-39.9) Confirmed Active KERMIT (obstructive sleep apnea): bipap 2 liters oxygen Confirmed Active Osteoarthritis of both knees Confirmed Active Left elbow pain Confirmed Active Bilateral arm pain Confirmed Active Parkinson disease Confirmed Active Lumbar herniated disc Confirmed Active Pruritic dermatitis Confirmed Active Recurrent major depression Confirmed Active Simvastatin-induced rhabdomyolysis-CPK remain elevated 4 Confirmed Active Sciatica Confirmed Active Peripheral sensory neuropathy Confirmed Active 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 3Seeing [place] neurology and sleep. Given a trial of Tegretol 200 mg upto 2 tablets twice a day andadvised to continue with Lyrica 300 mg twice a day. Had some improvement of the facial pain with this regimen. 4Simvastatin 40 mg d/sedrick. Social History Social History Type Response Smoking Status 5-9 cigarettes (betw een 1/4 to 1/2 pack)/day in last 30 days entered on: 12/27/21 Sex Patient Care team information Care Team Personnel Name: Olimpia Parker Position: [facility]AN Office Staff Member Role: Lifetime Consulting Physician Name: Dayo Castano MD Position: [facility] Physician - Primary Care Member Role: PCP Address: Address: [address] [place] [address]- Care Team Related Persons Name: JARROD BRADFORD Address: home [address] [place] [address] Name: LOLA BRADFORD Address: [address] [place] [address] Name: GOLDIE LERMA Address: [place] [address] Name: LERMA, OLIMPIA Address: [facility] [place] [address] Name: KADE LERMA Address: [address] [place] [address] Name: KADE LERMA Address: home [address] [place] [address]
--- OUTSIDE RECORDS SUMMARY | 2023-11-02 08:21 | XMS_ITS | Continuity of Care Document ---
Author Organization [facility] Address [address] [place] [address]- Care Team Providers Care Machine Cell Tuber Name Role Phone Dayo Castano MD Primary Care Physician [phone] Encounter [facility] Date(s): 02/28/23 - 03/30/[address] [address]- Allergies, Adverse Reactions, Alerts Substance Reaction Severity Status penicillin Unknown Active gabapentin Active hydrOXYzine hydrochloride Ac tive Ventolin HFA Active SEROquel Active Lantus Active ZyrTEC Active Flovent HFA Active traZODone Active Immunizations Given and Recorded Vaccine Date Status Refusal Reason [id number] 12y+ bivalent booster vax 02/21/23 Given influenza virus vaccine, inactivated 03/31/22 Pavel rded influenza virus vaccine, inactivated 03/30/21 Give n influenza virus vaccine, inactivated 03/02/20 Pavel rded influenza virus vaccine, inactivated 03/07/19 Give n influenza virus vaccine, inactivated 03/28/18 Give n influenza virus vaccine, inactivated 02/10/18 Pavel rded influenza virus vaccine, inactivated 03/30/16 Give n influenza virus vaccine, inactivated 03/04/16 Give n influenza virus vaccine, inactivated 04/16/15 Give n SARS-CoV-2 (COVID-19) mRNA BNT-162b2 vac 1 06/01/21 Given SARS-CoV-2 (COVID-19) mRNA BNT-162b2 vac 11/07/20 Recorded SARS-CoV-2 (COVID-19) mRNA BNT-162b2 vac 10/17/20 Recorded zoster vaccine, inactivated 06/18/19 Recorded zoster vaccine, inactivated 06/17/19 Recorded zoster vaccine, inactivated 11/25/17 Recorded Influenza Vaccine (oldterm) 02/17/17 Recorded pneumococcal 23-valent vaccine 02/16/16 Given tetanus/diphtheria/pertussis, acel(Tdap) 11/25/14 Given 1Result Comment: DILUENT LOT#: [id number] EXP: 11/2022 MFG: FRESENSIUS Medications Albuterol (Eqv-ProAir HFA) 90 mcg/inh inhalation aerosol 2 puffs, Inhalation, Every 6 hours, please give pt whatver is covered by his insrance use with spacer chamber, # 18 Gm, 5 Refills, Maintenance, 01/26/23 9:27:00 EDT, [facility]/pharmacy #[id number], Partial fill upon patient request if the prescription is for a... Start Date: 01/26/23 Status: Ordered amitriptyline 100 mg oral tablet 1 tablet = 100 mg, By Mouth, Daily at bedtime, Rx'd by neurology ([facility]), # 30 tablet, 0 Refills, Maintenance, 12/08/22 15:04:00 EDT, Tablet, Partial fill upon patient request if the prescription is for a schedule II opioid drug. Start Date: 12/08/22 Status: Ordered Aripiprazole 2 mg, Rx'd by ANJEL Bear, Refills 0, Maintenance, 10/04/22 8:25:00 EDT, Partial fill upon patient request if the prescription is for a schedule II opioid drug. Start Date: 10/04/22 Status: Ordered Aspirin Low Dose 81 mg oral delayed release tablet 1 tablet, By Mouth, Daily, # 90 tablet, 1 Refills, Maintenance, 11/28/22 12:36:00 EDT, [facility]/pharmacy#[id number], 183, cm, 11/10/22 8:32:00 EDT, Height, 123.2, kg, 02/07/22 12:47:00 EDT, Dry Weight Start Date: 11/28/22 Status: Ordered atorvastatin 20 mg oral tablet 1 tablet = 20 mg, By Mouth, Daily, # 90 tablet, 1 Refills, Maintenance, 11/17/22 10:19:00 EDT, Tablet, [facility]/pharmacy #[id number], Partial fill upon patient request if the prescription is for a schedule II opioid drug., 183, cm, 11/10/22 8:32:00 EDT, Height,... Start Date: 11/17/22 Status: Ordered Auto CPAP Auto CPAP, See [...] Need length 99 months Please send to [place] [facility], 01/21/21 13:20:00 EDT, Supply Start Date: 01/21/21 Status: Ordered carbidopa-levodopa 25 mg-100 mg oral tablet 1 tablet, By Mouth, 2 times a day, Rx'd by neurology at [facility], # 60 tablet, 0 Refills, Maintenance, 10/04/22 8:23:00 EDT, Tablet, Partial fill upon patient request if the prescription is for a schedule II opioid drug. Start Date: 10/04/22 Status: Ordered chlorthalidone 25 mg oral tablet 25 mg, 1, tablet, By Mouth, Daily, # 30 tablet, Refills 5, Tot. Refills 5, Maintenance, 11/08/22 8:09:00 EDT, Route to Pharmacy Electronically, [facility]/pharmacy #[id number], Partial fill upon patient request if the prescription is for a schedule II opioid drug.... Start Date: 11/08/22 Status: Ordered clonazePAM 1 mg oral tablet [...] tablet, Refills 1, Tot. Refills 1, Maintenance, 03/04/23 11:42:00 EDT, Route to Pharmacy Electronically, [facility]/pharmacy #[id number], 183, cm, 02/21/23 10:22:00 EDT, Height, 123.2, kg, 02/07/22 12:47:00 EDT, Dry Weight Start Date: 03/04/23 Stop Date: 08/31/23 Status: Ordered Diabetic socks Diabetic socks, See [...] Gm, 5 Refills, Maintenance, 01/26/23 9:21:00 EDT, [facility]/pharmacy #[id number], 30, APPLY TOPICALLY TO AFFECTED ARE TWICEA DAY NEEDED FOR PAIN, 183, cm, 01/26/23 9:04:00... Start Date: 01/26/23 Status: Ordered doxycycline hyclate 100 mg oral tablet 1 tablet = 100 mg, By Mouth, 2 times a day, # 14 tablet, 0 Refills, Maintenance, 12/03/22 9:09:00 EDT, Tablet, [facility]/pharmacy #[id number], Partial fill upon patient request if the prescription is for a schedule II opioid drug., 183, cm, 12/03/22 8:30:00 EDT,... Start Date: 12/03/22 Stop Date: 12/10/22 Status: Ordered FREESTYLE 28G LANCETS FREESTYLE 28G [...] Daily at bedtime, Rx'd by neurology at [facility], 0 Refills, Maintenance, 10/04/22 8:24:00 EDT, Capsule, Partial fill upon patient request if the prescription is for a schedule II opioid drug. Start Date: 10/04/22 Status: Ordered levocetirizine 5 mg oral tablet 1 tablet = 5 mg, By Mouth, Daily in AM, # 30 tablet, 5 Refills, Maintenance, 11/17/22 10:19:00 EDT,Tablet, [facility]/pharmacy #[id number], Label in namibian, cetrizine not effective, 1 tablet By Mouth Daily in AM, 183, cm, 11/10/22 8:32:00 EDT, Height, 123.2, kg,... Start Date: 11/17/22 Status: Ordered loratadine 10 mg oral tablet 1, tablet, By Mouth, Daily, PRN, # 90 tablet, Refills 1, NEEDED FOR ALLERGIES, Route to PharmacyElectronically, [id number], 184, cm, 10/18/21 13:37:00 EDT, Height Start Date: 10/22/21 Status: Ordered Metamucil 3.4 gm/5.2 gm oral powder for reconstitution = 3.4 Gm, By Mouth, 3 times a day, PRN as needed for constipation, # 425 Gm, 11 Refills, Maintenance, 09/12/22 20:51:00 EDT, REC Powder, [facility]/pharmacy #[id number], Partial fill upon patient request [...] SMOKING CESSATION, # 40 gum, 0 Refills, [id number], 184, cm, 12/27/21 11:50:00 EDT, Height Start [...] # 180 capsule, 3 Refills, [id number], 90, TAKE 1 CAPSULE BY MOUTH TWICE A DAY, 183, cm, 02/08/22 6:42:00 EDT, Height, 123.2, kg, 02/07/22 12:47:00 EDT, Dry Weight Start Date: 02/09/22 Status: Ordered omeprazole 20 mg oral enteric coated capsule 1 capsule, By Mouth, Daily, # 90 capsule, 0 Refills, Maintenance, 02/24/23 12:51:00 EDT, [facility]/pharmacy #[id number], 183, cm, 02/21/23 10:22:00 EDT, Height, 123.2, kg, 02/07/22 12:47:00 EDT, Dry Weight Start Date: 02/24/23 Status: Ordered One Touch Ultra 2 Glucose [...] 11, Maintenance, check BG BID dx: E11.65, 11/17/22 15:52:00 EDT, Supply, 183, cm, 11/10/22 [...] Gm, 1 Refills, Maintenance, 08/31/22 9:06:00 EDT, [facility]/pharmacy #[id number], 14,DISSOLVE 17 GRAMS IN WATER & DRINK ONCE A DAY UNTIL BM,... Start Date: 08/31/22 Status: Ordered pregabalin 300 mg oral capsule 1 capsule = 300 mg, By Mouth, 2 times a day, Rx'd by neurology at [facility], # 60 capsule, 0 Refills, Maintenance, 10/04/22 8:24:00 EDT, Capsule, Partial fill upon patient request if the prescription is for a schedule II opioid drug. Start Date: 10/04/22 Status: Ordered primidone 50 mg oral tablet 100 mg, 2, tablet, By Mouth, 2 times a day, rx'd by neurology at [facility], # 120 tablet, Refills 0, Maintenance, 12/08/22 [...] times a day, Rx'd by neurology at [facility], # 270 tablet, 0 Refills, Maintenance, 10/04/22 [...] Maintenance, DX: M51. 26 please send to [facility], 08/08/22 15:41:00 EST, Supply Start Date: 08/08/22 Status: Ordered Symbicort 160mcg/4.5mcg Inhaler 2, puffs, Inhalation, 2 times a day, # 6 Gm, Refills 0, Tot. Refills 0, Maintenance, 12/22/22 21:20:00 EDT, Aerosol, Route to Pharmacy Electronically, [id number], [facility]/pharmacy #[id number], 183, cm, 12/08/22 8:26:00 EDT, Height, 123... Start Date: 12/22/22 Status: Ordered traMADol 50 mg oral tablet [...] pain, # 100 tablet, 5 Refills, Maintenance, 12/03/22 9:00:00 EDT, Tablet, [id number], Partial fill upon patient request if the prescription is for a schedule II opioid drug., 183,... Start Date: 12/03/22 Status: Ordered valsartan 320 mg oral tablet 1 tablet, By Mouth, Daily, # 90 tablet, 1 Refills, Maintenance, 03/16/23 10:25:00 EDT, [id number], 183, cm, 02/21/23 10:22:00 EDT, Height, 123.2, kg, 02/07/22 12:47:00 EDT, Dry Weight Start Date: 03/16/23 Status: Ordered Xopenex HFA 45 mcg/inh inhalation aerosol 2 puffs, Inhalation, Every 4 hours, PRN Wheezing/Shortness of Breath, replaces Ventolin due to reaction, # 1 each, 1 Refills, Maintenance, 02/15/23 11:23:00 EDT, Aerosol, [id number], Partial fill upon patient request if the [...] impairment Confirmed Active HTN (hypertension) Confirmed Active Insomnia [...] provided increased discomfort related to nerves. 3Seeing [place] neurology and sleep. Given a trial of [...] Care Team Personnel Name: Olimpia Parker Position: [facility] Office Staff Member Role: Lifetime Consulting Physician Name: Dayo Castano MD Position: [facility] Physician - Primary Care Member Role: PCP Address: Address: [address] [place] [address]- [place] Care Team Related Persons Name: JARROD BRADFORD Address: home [address] [place] [address] Name: YARA BRDAFORDSY Address: home [address] [place] [address] Name: GOLDIE LERMA Address: [place] [address] Name: OLIMPIA LERMA Address: [place] [address] Name: KADE LERMA Address: home [address] [place] [id number] Name: KADE LERMA Address: home [address] [place] [address]
--- OUTSIDE RECORDS SUMMARY | 2023-11-02 08:21 | XMS_ITS | Continuity of Care Document ---
Author Organization [facility] Address [address] [place] [address]- Care Team Providers Care Homeowner Association Manager Name Role Phone Contractor Krystal FERNANDEZ Primary Care Physician [phone] Encounter [facility] Date(s): 01/27/21 - 02/26/21 [facility] [address] [place] [id number] Allergies, Adverse Reactions, Alerts Substance Reaction Severity [...] 10/30/20 15:08:00 EDT, [facility] to [facility], [id number], 184, cm, 10/30/20 14:15:00 EDT, Height, 123.27, kg, 06/25/19 13:22:00 EST, Dry Weight Start Date: 10/30/20 Status: Ordered aspirin 81 mg oral delayed release tablet 81 mg, 1, tablet, By Mouth, Daily, # 90 tablet, Refills 0, Tot. Refills 0, Maintenance, 01/01/21 11:26:00 EDT, [id number] Partial fill upon patient request if the prescription is for a schedule II opioid drug... Start Date: 01/01/21 Status: Ordered aspirin 81 mg oral tablet 1 tablet = 81 mg, By Mouth, Daily, # 90 tablet, 3 Refills, Maintenance, 01/15/20 9:51:00 EDT, Tablet, [facility]/pharmacy #[id number], 184, cm, 01/15/20 [...] Need length 99 months Please send to [place] [facility], 01/21/21 13:20:00 EDT, Supply Start Date: 01/21/21 Status: Ordered Claritin 10 mg oral tablet 10 mg, 1, tablet, By Mouth, Daily, # 30 tablet, Refills 3, Tot. Refills 3, Maintenance, 01/29/21 9:13:00 EDT, Route to Pharmacy Electronically, [facility]/pharmacy #[id number], 184, cm, 01/29/21 9:06:00 EDT, [...] 08/17/20 13:12:00 EST, Route to Pharmacy Electronically, [facility]/pharmacy #[id number], 184, cm, 02/28/20 15:58:00 EDT, Height, 123.27,... Start Date: 08/17/20 Stop Date: 08/02/23 Status: Ordered cyanocobalamin 1000 mcg oral tablet 1,000 mcg, 1, tablet, By Mouth, Daily, # 90 tablet, Refills 11, Tot. Refills 11, Maintenance, 08/02/23 13:12:00 EST, Route to Pharmacy Electronically, [facility]/pharmacy #[id number], 184, cm, 01/01/21 10:56:00 EDT, [...] 3 Refills, Maintenance, 01/01/21 11:24:00 EDT, Tablet, [facility]/pharmacy #[id number], 184, cm, 01/01/21 10:56:00 EDT, Height, 123.27, kg, 06/25/19 13:22:00 EST, Dry Weight Start Date: 01/01/21 Status: Ordered docusate sodium 100 mg oral tablet 1 tablet = 100 mg, By Mouth, 2 times a day, PRN for constipation, # 60 tablet, 5 Refills, Maintenance, 01/11/21 15:23:00 EDT, Tablet, [facility]/pharmacy #[id number], Partial fill upon patient request if the prescription is for a schedule II opioid drug., 184, cm,... Start Date: 01/11/21 Status: Ordered fluticasone 50 mcg/inh nasal spray See Instructions, USE 1 SPRAY IN EACH NOSTRIL EVERY MORNING, # 16 mL, 3 Refills, 01/29/21 9:11:00 EDT, [facility]/pharmacy #[id number], 30, USE 1 SPRAY IN [...] 2 Refills, Maintenance, 02/10/21 13:09:00 EDT, Ointment, [facility]/pharmacy #[id number], Partial fill upon patient request if the prescription is for a schedule II opioid drug., 1 application Top... Start Date: 02/10/21 Status: Ordered metFORMIN 500 mg oral tablet 1 tablet = 500 mg, By Mouth, Daily, with meals, # 90 tablet, 11 Refills, Maintenance, 01/01/21 11:24:00 EDT, Tablet, [facility]/pharmacy #[id number], 184, cm, 01/01/21 10:56:00 EDT, Height, 123.27, kg, 06/25/19 13:22:00 EST, Dry Weight Start Date: 01/01/21 Status: Ordered omega-3 polyunsaturated fatty acids ethyl esters 1000 mg oral capsule 1 capsule = 1,000 mg, By Mouth, 2 times a day, # 60 capsule, 11 Refills, Maintenance, 01/01/21 11:25:00 EDT, Capsule, [facility]/pharmacy #[id number], 1 capsule By Mouth 2 times a day,x30 days, 184, cm, 01/01/21 10:56:00 EDT, Height, 123.27, kg, 06/25/19 13:22:00... Start Date: 01/01/21 Stop Date: 12/27/21 Status: Ordered omeprazole 20 mg oral enteric coated capsule 1 capsule = 20 mg, By Mouth, Daily, # 30 capsule, 2 Refills, Maintenance, 02/24/21 9:28:00 EDT, EC Capsule, [facility]/pharmacy #[id number], 184, cm, 02/03/21 10:57:00 EDT, Height, 123.27, kg, 06/25/19 13:22:00 EST, Dry Weight Start Date: 02/24/21 Status: Ordered pregabalin 300 mg oral capsule [...] Maintenance, DX: M51. 26 please send to [facility], 01/21/21 13:20:00 EDT, Supply Start Date: 01/21/21 Status: Ordered sulindac 150 mg oral tablet See Instructions, TAKE 1 TABLET BY MOUTH TWICE A DAY NEEDED FOR PAIN, # 28 tablet, 0 Refills, Maintenance, [facility], 184, cm, 02/01/21 10:51:00 EDT, Height, 123.27, kg, 06/25/19 13:22:00 EST, Dry Weight Start Date: 02/01/21 Status: Ordered traMADol 50 mg oral tablet TAKE 1 TO 2 TABLETS BY MOUTH EVERY 6 HOURS NEEDED FOR PAIN Start Date: 01/29/21 Status: Ordered Tylenol Extra Strength 500 mg oral tablet 2 tablet = 1,000 mg, By Mouth, 3 times a day, PRN as needed for pain, # 100 tablet, 0 Refills, Maintenance, 02/18/21 8:37:00 EDT, Tablet, [id number], Partial fill upon patient request if the prescription is for a schedule II opioid drug., 184,... Start Date: 02/18/21 Status: Ordered Problem List Condition Effective Dates [...] provided increased discomfort related to nerves. 3Seeing [place] neurology and sleep. Given a trial of Tegretol 200 mg upto 2 tablets twice a day andadvised to continue with Lyrica 300 mg twice a day. Had some improvement of the facial pain with this regimen. 4Seeing [place] neurology and asleep. On 09/11/2018 started on [...]
--- OUTSIDE RECORDS SUMMARY | 2023-11-02 08:22 | XMS_ITS | Continuity of Care Document ---
Author Organization [facility] Address [address] [place] [address]- Care Team Providers Care Professional Athletes Coach Name Role Phone Contractor Krystal FERNANDEZ Primary Care Physician Encounter [facility] Date(s): 11/19/20 - 01/06/[address] [address]- Attending Physician: Not on Staff, Attending MD Allergies, Adverse Reactions, Alerts Substance Reaction Severity [...] 01/27/21 8:00:00 EDT, 11/27/20 10:53:00 EDT, Tablet, [facility]/pharmacy #[id number], Partial fill up... Start Date: 11/27/20 Stop Date: 01/27/21 Status: Ordered amLODIPine 10 mg oral tablet 10 mg, 1, tablet, By Mouth, Daily, # 90 tablet, Refills 3, Tot. Refills 3, Maintenance, 10/30/20 15:08:00 EDT, Route to Pharmacy Electronically, [facility]/pharmacy #[id number], 184, cm, 10/30/20 14:15:00 EDT, Height, 123.27, kg, 06/25/19 13:22:00 EST, Dry Weight Start Date: 10/30/20 Status: Ordered aspirin 81 mg oral delayed release tablet 81 mg, 1, tablet, By Mouth, Daily, # 90 tablet, Refills 0, Tot. Refills 0, Maintenance, 01/01/21 11:26:00 EDT, Route to Pharmacy Electronically, [facility]/pharmacy #[id number], Partial fill upon patient request if the prescription is for a schedule II opioid drug... Start Date: 01/01/21 Status: Ordered aspirin 81 mg oral tablet 1 tablet = 81 mg, By Mouth, Daily, # 90 tablet, 3 Refills, Maintenance, 01/15/20 9:51:00 EDT, Tablet, [facility]/pharmacy #[id number], 184, cm, 01/15/20 9:11:00 EDT, Height, [...] 02/07/20 9:49:00 EDT, Route to Pharmacy Electronically, [facility]/pharmacy #[id number], 184, cm, 01/29/20 14:16:00 EDT, Height, [...] 08/17/20 13:12:00 EST, Route to Pharmacy Electronically, [facility]/pharmacy #[id number], 184, cm, 02/28/20 15:58:00 EDT, Height, 123.27,... Start Date: 08/17/20 Stop Date: 08/02/23 Status: Ordered cyanocobalamin 1000 mcg oral tablet 1,000 mcg, 1, tablet, By Mouth, Daily, # 90 tablet, Refills 11, Tot. Refills 11, Maintenance, 08/02/23 13:12:00 EST, Route to Pharmacy Electronically, [facility]/pharmacy #[id number], 184, cm, 01/01/21 10:56:00 EDT, Height, [...] 1 Refills, Maintenance, 12/03/20 16:21:00 EDT, Gel, [facility]/pharmacy #[id number], Partial fill upon patient request if the prescription is for a schedule II... Start Date: 12/03/20 Status: Ordered Diovan 320 mg oral tablet 1 tablet = 320 mg, By Mouth, Daily, # 90 tablet, 3 Refills, Maintenance, 01/01/21 11:24:00 EDT, Tablet, [facility]/pharmacy #[id number], 184, cm, 01/01/21 10:56:00 EDT, Height, 123.27, kg, 06/25/19 13:22:00 EST, Dry Weight Start Date: 01/01/21 Status: Ordered fluocinonide 0.05% topical cream See Instructions, 1 application Topically 3 times a day, as needed, for itchy rash. apply a thin film to affected areas, # 30 Gm, 0 Refills, Maintenance, 10/03/20 15:41:00 EDT, Cream, [facility]/pharmacy #[id number], Partial fill upon patient request if the pres... Start Date: 10/03/20 Status: Ordered fluticasone 50 mcg/inh nasal spray See Instructions, USE 1 SPRAY IN EACH NOSTRIL EVERY MORNING, # 16 mL, 0 Refills, Maintenance, [id number], 30, USE 1 SPRAY IN EACH NOSTRIL [...] 11 Refills, Maintenance, 01/01/21 11:24:00 EDT, Tablet, [facility]/pharmacy #[id number], 184, cm, 01/01/21 10:56:00 EDT, Height, 123.27, kg, 06/25/19 13:22:00 EST, Dry Weight Start Date: 01/01/21 Status: Ordered omega-3 polyunsaturated fatty acids ethyl esters 1000 mg oral capsule 1 capsule = 1,000 mg, By Mouth, 2 times a day, # 60 capsule, 11 Refills, Maintenance, 01/01/21 11:25:00 EDT, Capsule, [facility]/pharmacy #[id number], 1 capsule By Mouth 2 times a day,x30 days, 184, cm, 01/01/21 10:56:00 EDT, Height, 123.27, kg, 06/25/19 13:22:00... Start Date: 01/01/21 Stop Date: 12/27/21 Status: Ordered omeprazole 20 mg oral enteric coated capsule 1 capsule = 20 mg, By Mouth, Daily, # 30 capsule, 2 Refills, Maintenance, 02/06/20 16:40:00 EDT, ECCapsule, [facility]/pharmacy #[id number], 184, cm, 01/29/20 14:16:00 EDT, Height, 123.27, kg, 06/25/19 13:22:00 EST, Dry Weight Start Date: 02/06/20 Status: Ordered Robaxin-750 750 mg oral tablet 2 tablet = 1,500 mg, By Mouth, 3 times a day, for 10 days, it make drowsiness, # 60 tablet, 0 Refills, Acute 01/11/21 11:23:00 EDT, 01/01/21 11:23:00 EDT, Tablet, [facility]/pharmacy #[id number], Partial fill upon patient request if [...] 01/15/21 11:19:00 EDT, 01/01/21 11:19:00 EDT, Tablet, [facility]/pharmacy #[id number], Partial fill uponpatient request if the prescription is for a schedu... Start Date: 01/01/21 Stop Date: 01/15/21 Status: Ordered sulindac 150 mg oral tablet See Instructions, TAKE 1 TABLET BY MOUTH TWICE DAILY NEEDED FOR PAIN, # 28 tablet, 0 Refills, Maintenance, [id number], 184, cm, 12/09/20 11:19:00 EDT, Height, 123.27, [...] provided increased discomfort related to nerves. 3Seeing [place] neurology and sleep. Given a trial of Tegretol 200 mg upto 2 tablets twice a day andadvised to continue with Lyrica 300 mg twice a day. Had some improvement of the facial pain with this regimen. 4Seeing [place] neurology and asleep. On 09/11/2018 started on [...]
--- OUTSIDE RECORDS SUMMARY | 2023-11-02 08:22 | XMS_ITS | Continuity of Care Document ---
Author Organization [facility] Address [address] [place] [address]- Care Team Providers Care Psychopaedic Nurse Name Role Phone Contractor Krystal FERNANDEZ Primary Care Physician [phone] Encounter [facility] Date(s): 01/14/21 - 02/13/[address] [address]- Allergies, Adverse Reactions, Alerts Substance Reaction Severity [...] 10/30/20 15:08:00 EDT, Route to Pharmacy Electronically, [facility]/pharmacy #[id number], 184, cm, 10/30/20 14:15:00 EDT, Height, 123.27, kg, 06/25/19 13:22:00 EST, Dry Weight Start Date: 10/30/20 Status: Ordered aspirin 81 mg oral delayed release tablet 81 mg, 1, tablet, By Mouth, Daily, # 90 tablet, Refills 0, Tot. Refills 0, Maintenance, 01/01/21 11:26:00 EDT, Route to Pharmacy Electronically, [facility]/pharmacy #[id number], Partial fill upon patient request if the prescription is for a schedule II opioid drug... Start Date: 01/01/21 Status: Ordered aspirin 81 mg oral tablet 1 tablet = 81 mg, By Mouth, Daily, # 90 tablet, 3 Refills, Maintenance, 01/15/20 9:51:00 EDT, Tablet, [facility]/pharmacy #[id number], 184, cm, 01/15/20 9:11:00 EDT, [...] Need length 99 months Please send to [facility], 01/21/21 13:20:00 EDT, Supply Start Date: 01/21/21 Status: Ordered Claritin 10 mg oral tablet 10 mg, 1, tablet, By Mouth, Daily, # 30 tablet, Refills 3, Tot. Refills 3, Maintenance, 01/29/21 9:13:00 EDT, Route to Pharmacy Electronically, [facility]/pharmacy #[id number], 184, cm, 01/29/21 9:06:00 EDT, [...] 08/17/20 13:12:00 EST, Route to Pharmacy Electronically, [facility]/pharmacy #[id number], 184, cm, 02/28/20 15:58:00 EDT, Height, 123.27,... Start Date: 08/17/20 Stop Date: 08/02/23 Status: Ordered cyanocobalamin 1000 mcg oral tablet 1,000 mcg, 1, tablet, By Mouth, Daily, # 90 tablet, Refills 11, Tot. Refills 11, Maintenance, 08/02/23 13:12:00 EST, Route to Pharmacy Electronically, [facility]/pharmacy #[id number], 184, cm, 01/01/21 10:56:00 EDT, [...] 3 Refills, Maintenance, 01/01/21 11:24:00 EDT, Tablet, [facility]/pharmacy #[id number], 184, cm, 01/01/21 10:56:00 EDT, Height, 123.27, kg, 06/25/19 13:22:00 EST, Dry Weight Start Date: 01/01/21 Status: Ordered docusate sodium 100 mg oral tablet 1 tablet = 100 mg, By Mouth, 2 times a day, PRN for constipation, # 60 tablet, 5 Refills, Maintenance, 01/11/21 15:23:00 EDT, Tablet, [facility]/pharmacy #[id number], Partial fill upon patient request if the prescription is for a schedule II opioid drug., 184, cm,... Start Date: 01/11/21 Status: Ordered fluticasone 50 mcg/inh nasal spray See Instructions, USE 1 SPRAY IN EACH NOSTRIL EVERY MORNING, # 16 mL, 3 Refills, 01/29/21 9:11:00 EDT, [facility]/pharmacy #[id number], 30, USE 1 SPRAY IN [...] 2 Refills, Maintenance, 02/10/21 13:09:00 EDT, Ointment, [id number], Partial fill upon patient request if the prescription is for a schedule II opioid drug., 1 application Top... Start Date: 02/10/21 Status: Ordered metFORMIN 500 mg oral tablet 1 tablet = 500 mg, By Mouth, Daily, with meals, # 90 tablet, 11 Refills, Maintenance, 01/01/21 11:24:00 EDT, Tablet, [id number], 184, cm, 01/01/21 10:56:00 EDT, Height, 123.27, kg, 06/25/19 13:22:00 EST, Dry Weight Start Date: 01/01/21 Status: Ordered omega-3 polyunsaturated fatty acids ethyl esters 1000 mg oral capsule 1 capsule = 1,000 mg, By Mouth, 2 times a day, # 60 capsule, 11 Refills, Maintenance, 01/01/21 11:25:00 EDT, Capsule, [facility]/pharmacy #[id number], 1 capsule By Mouth 2 times a day,x30 days, 184, cm, 01/01/21 10:56:00 EDT, Height, 123.27, kg, 06/25/19 13:22:00... Start Date: 01/01/21 Stop Date: 12/27/21 Status: Ordered omeprazole 20 mg oral enteric coated capsule 1 capsule = 20 mg, By Mouth, Daily, # 30 capsule, 2 Refills, Maintenance, 02/06/20 16:40:00 EDT, ECCapsule, [facility]/pharmacy #[id number], 184, cm, 01/29/20 14:16:00 EDT, [...] Maintenance, DX: M51. 26 please send to [facility], 01/21/21 13:20:00 EDT, Supply Start Date: 01/21/21 Status: Ordered sulindac 150 mg oral tablet See Instructions, TAKE 1 TABLET BY MOUTH TWICE A DAY NEEDED FOR PAIN, # 28 tablet, 0 Refills, Maintenance, [id number], 184, cm, 02/01/21 10:51:00 EDT, Height, 123.27, [...] provided increased discomfort related to nerves. 3Seeing [place] neurology and sleep. Given a trial of [...]
--- OUTSIDE RECORDS SUMMARY | 2023-11-02 08:22 | XMS_ITS | Continuity of Care Document ---
Author Organization [facility] Address [address] [place] [address]- Care Team Providers Care Software Applications Engineer Name Role Phone Contractor Krystal FERNANDEZ Primary Care Physician Encounter [facility] Date(s): 06/25/21 - 07/25/[address] [address]- Attending Physician: Not on Staff, Attending MD [...] acel(Tdap) 11/25/14 Given 1Result Comment: DILUENT LOT#: [id number] EXP: 11/2022 MFG: FRESENSIUS Medications amitriptyline 100 mg oral tablet 1 tablet = 100 mg, By Mouth, Daily at bedtime, # 30 tablet, 3 Refills, Maintenance, 04/13/21 10:02:00 EDT, Tablet, [facility]/pharmacy #[id number], Partial fill upon patient request [...] 3 Refills, Maintenance, 03/03/21 17:24:00 EDT, Tablet, [facility]/pharmacy #[id number], Partial fill upo... Start Date: 03/03/21 Status: Ordered aspirin 81 mg oral delayed release tablet 81 mg, 1, tablet, By Mouth, Daily, # 90 tablet, Refills 0, Tot. Refills 0, Maintenance, 01/01/21 11:26:00 EDT, Route to Pharmacy Electronically, [facility]/pharmacy #[id number], Partial fill upon patient request [...] Need length 99 months Please send to [place] [facility], 01/21/21 13:20:00 EDT, Supply Start Date: 01/21/21 Status: Ordered carbidopa-levodopa 25 mg-100 mg oral tablet 1 tablet, By Mouth, 3 times a day, Rx'd by Neurology at [facility]/ Dr. Murphy, # 270 tablet, 0 Refills, Maintenance, 04/15/21 23:30:00 EDT, Tablet, Partial fill upon patient request if the prescription is for a schedule II opioid drug. Start Date: 04/15/21 Status: Ordered chlorthalidone 25 mg oral tablet 1, tablet, By Mouth, Daily, # 30 tablet, Refills 5, Route to Pharmacy Electronically, [facility] ST[facility] [id number], 184, cm, 03/30/21 16:08:00 EDT, Height, 123.27, kg, 06/25/19 13:22:00 EST, Dry Weight Start Date: 04/07/21 Status: Ordered Claritin 10 mg oral tablet 10 mg, 1, tablet, By Mouth, Daily, more sea necesario para alergia, # 30 tablet, Refills 5, Tot. Refills 5, Maintenance, 04/13/21 10:04:00 EDT, Route to Pharmacy Electronically, [facility]/pharmacy #[id number], 184, cm, 04/13/21 9:26:00 EDT, Height, 123.27, kg, 01... Start Date: 04/13/21 Status: Ordered clonazePAM 2 mg oral tablet See Instructions, 1 tablet by mouth only NEEDED for severe panic attack. Dispense: #20 tabs per 30d., # 20 tablet, 0 Refills, Maintenance, 07/15/21 14:39:00 EST, Tablet, [facility]/pharmacy #[id number], Partial fill upon patient request if the prescription is... Start Date: 07/15/21 Status: Ordered Compression Stockings See Instructions, # [...] 0 Refills, Maintenance, 03/03/21 17:36:00 EDT, Cream, [facility]/pharmacy #[id number], Partial fill upon patient request if the prescription is for a schedule II opioid drug., 1 application Topically 3 ti... Start Date: 03/03/21 Status: Ordered cyanocobalamin 1000 mcg oral tablet 1,000 mcg, 1, tablet, By Mouth, Daily, # 90 tablet, Refills 11, Tot. Refills 11, Maintenance, 08/02/23 13:12:00 EST, Route to Pharmacy Electronically, [facility]/pharmacy #[id number], 184, cm, 01/01/21 10:56:00 EDT, [...] 5 Refills, Maintenance, 01/11/21 15:23:00 EDT, Tablet, [facility]/pharmacy #[id number], Partial fill upon patient request if the prescription is for a schedule II opioid drug., 184, cm,... Start Date: 01/11/21 Status: Ordered escitalopram 20 mg oral tablet 1 tablet = 20 mg, By Mouth, Daily, # 30 tablet, 3 Refills, Maintenance, 07/13/21 12:26:00 EST, Tablet, [facility]/pharmacy #[id number], d/c citalopram 10 mg, 184, cm, 06/14/21 11:01:00 EST, Height Start Date: 07/13/21 Status: Ordered fluticasone 50 mcg/inh nasal spray See Instructions, USE 1 SPRAY IN EACH NOSTRIL EVERY MORNING, # 16 mL, 3 Refills, 01/29/21 9:11:00 EDT, [id number], 30, USE 1 SPRAY IN EACH [...] 2 Refills, Maintenance, 02/10/21 13:09:00 EDT, Ointment, [facility]/pharmacy #[id number], Partial fill upon patient request if the prescription is for a schedule II opioid drug., 1 application Top... Start Date: 02/10/21 Status: Ordered magnesium oxide 400 mg oral tablet 1 tablet = 400 mg, By Mouth, Daily, Rx'd by Neurology at [facility]/ Dr. Murphy, 0 Refills, Maintenance, 04/15/21 23:30:00 [...] 3 Refills, Maintenance, 03/03/21 17:29:00 EDT, Tablet, [facility]/pharmacy #[id number], Partial fill upon p... Start Date: 03/03/21 Status: Ordered nicotine 21 mg/24 hr transdermal film, extended release 1 patch, Topically, Daily, for 6 week(s), Rx in Bel[place]ian, # 42 patch, 1 Refills, Acute 08/16/21 16:13:00 EST, 05/24/21 16:13:00 EST, Patch, [id number], Partial fill upon patient request if theprescription is for a schedule II opioid drug., 1 p... Start Date: 05/24/21 Stop Date: 08/16/21 Status: Ordered omega-3 polyunsaturated fatty acids ethyl esters 1000 mg oral capsule 1 capsule = 1,000 mg, By Mouth, 2 times a day, # 60 capsule, 11 Refills, Maintenance, 01/01/21 11:25:00 EDT, Capsule, [id number], 1 capsule By Mouth 2 times a day,x30 days, 184, cm, 01/01/21 10:56:00 EDT, Height, 123.27, kg, 06/25/19 13:22:00... Start Date: 01/01/21 Stop Date: 12/27/21 Status: Ordered omeprazole 20 mg oral enteric coated capsule 1 capsule, By Mouth, Daily, # 90 capsule, 0 Refills, [facility] ST[id number], 184, cm, 06/14/21 11:01:00 EST, Height, 123.27, [...] Maintenance, DX: M51. 26 please send to [facility] [place], 01/21/21 13:20:00 EDT, Supply Start Date: 01/21/21 Status: Ordered sulindac 150 mg oral tablet See Instructions, TAKE 1 TABLET BY MOUTH TWICE A DAY NEEDED FOR PAIN, # 28 tablet, 0 Refills, Maintenance, [id number], 184, cm, 02/01/21 10:51:00 EDT, Height, 123.27, kg, 06/25/19 13:22:00 EST, Dry Weight Start Date: 02/01/21 Status: Ordered Tylenol Extra Strength 500 mg oral tablet 2 tablet = 1,000 mg, By Mouth, 3 times a day, PRN as needed for pain, # 100 tablet, 5 Refills, Maintenance, 04/13/21 10:08:00 EDT, Tablet, [facility]/pharmacy #[id number], Partial fill upon patient request [...] provided increased discomfort related to nerves. 3Seeing [place] neurology and sleep. Given a trial of Tegretol 200 mg upto 2 tablets twice a day andadvised to continue with Lyrica 300 mg twice a day. Had some improvement of the facial pain with this regimen. 4Seeing [place] neurology and asleep. On 09/11/2018 started on [...]
--- OUTSIDE RECORDS SUMMARY | 2023-11-02 08:22 | XMS_ITS | Continuity of Care Document ---
Author Organization [facility] Address [address] [place] [address]- Care Team Providers Care Heel Seat Pounder Name Role Phone Ivone Oneil MD Primary Care Physician Encounter [facility] Date(s): 01/19/22 - 02/18/[address] [address]- Allergies, Adverse Reactions, Alerts Substance Reaction Severity Status penicillin Unknown Active gabapentin Active Lantus Active Flovent HFA Active ZyrTEC Active SEROquel Active traZODone Active hydrOXYzine hydrochloride Ac tive Ventolin HFA Active Immunizations Given and Recorded Vaccine [...] acel(Tdap) 11/25/14 Given 1Result Comment: DILUENT LOT#: [id number] EXP: 11/2022 MFG: FRESENSIUS Medications amitriptyline 100 [...] 3 Refills, Maintenance, 03/03/21 17:24:00 EDT, Tablet, [facility]/pharmacy #[id number], Partial fill upo... Start Date: 03/03/21 [...] Daily, # 90 tablet, 1 Refills, Maintenance, 11/29/21 14:23:00 EDT, Tablet, [facility]/pharmacy #[id number], Partial fill upon patient request if the prescription is for a schedule II opioid drug., 184, cm, 11/15/21 9:55:00 EDT, Height Start Date: 11/29/21 Status: Ordered Auto CPAP Auto CPAP, See [...] Need length 99 months Please send to [place] [facility] [facility], 01/21/21 13:20:00 EDT, Supply Start Date: 01/21/21 Status: Ordered celecoxib 200 mg oral capsule 1 capsule = 200 mg, By Mouth, Daily, 0 Refills, Maintenance, 02/08/22 10:00:00 EDT, Capsule, Partial fill upon patient request if the prescription is for a schedule II opioid drug. Start Date: 02/08/22 Status: Ordered chlorthalidone 25 mg oral tablet [...] 0 Refills, Maintenance, 08/18/21 15:21:00 EST, Tablet, [facility]/pharmacy #[id number], Partial fill upon patient request if the [...] 07/17/26 13:12:00 EST, Route to Pharmacy Electronically, [facility]/pharmacy #[id number], 184, cm, 07/26/21 9:11:00 EST, Height Start Date: 07/17/26 Stop Date: 07/01/29 Status: Ordered cyanocobalamin 1000 mcg oral tablet 1,000 mcg, 1, tablet, By Mouth, Daily, for 90 days, # 90 tablet, Refills 11, Tot. Refills 11, Hard Stop 07/17/26 13:12:00 EST, 08/02/23 13:12:00 EST, Route to Pharmacy Electronically, [facility]/pharmacy #[id number], 184, cm, 01/01/21 10:56:00 EDT, [...] constipation, # 60 tablet, 5 Refills, Maintenance, 10/07/21 20:16:00 EDT, Tablet, [facility]/pharmacy #[id number], Partial fill upon patient request if the prescription is for a schedule II opioid drug., 184, cm,... Start Date: 10/07/21 Status: Ordered Freestyle Lite Lancets See Instructions, [...] 1, NEEDED FOR ALLERGIES, Route to PharmacyElectronically, [facility] STORE 114[facility], 184, cm, 10/18/21 13:37:00 EDT, Height Start Date: 10/22/21 Status: Ordered magnesium oxide 400 mg oral tablet 1 tablet = 400 mg, By Mouth, Daily, Rx[facility]/ Dr. Murphy, 0 Refills, Maintenance, 04/15/21 23:30:00 EDT, Partial fill upon patient request if the prescription is for a schedule II opioid drug. Start Date: 04/15/21 Status: Ordered Metamucil 3.4 gm/5.2 gm oral powder for reconstitution = 1.7 Gm, By Mouth, Daily, PRN as needed for constipation, for 30 days, # 570 Gm, 5 Refills, Acute 04/26/22 11:13:00 EST, 10/28/21 11:13:00 EDT, REC Powder, [facility]/pharmacy #[id number], Partial fill upon patient request if the prescription is for a schedule II... Start Date: 10/28/21 Stop Date: 04/26/22 Status: Ordered metFORMIN 500 mg oral tablet 2 tablet = 1,000 mg, By Mouth, 2 times a day, New script. Please discontine script order for metformin 500 mg daily, new script for 2 tabs TWICE daily., # 360 tablet, 3 Refills, Maintenance, 09/16/2211:15:00 EDT, Tablet, [facility]/pharmacy #[id number], Partial f... Start Date: 09/15/21 Status: Ordered MiraLax Powder 1 pack/packet = 17 Gm, By Mouth, Daily, 0 Refills, Maintenance, 02/08/22 10:00:00 EDT, Powder, Partial fill upon patient request if the prescription is for a schedule II opioid drug. Start Date: 02/08/22 Status: Ordered Nicotine 2 mg gum See Instructions, CHEW 1 PIECE OF GUM EVERY 2 HOURS NEEDED FOR SMOKING CESSATION, # 40 gum, 0 Refills, [facility] ST[facility], 184, cm, 12/27/21 11:50:00 EDT, Height Start Date: 02/01/22 Status: Ordered omega-3 polyunsaturated fatty acids ethyl esters 1000 mg oral capsule 1 capsule, By Mouth, 2 times a day, # 180 capsule, 3 Refills, [facility] 18[facility], 90, TAKE 1 CAPSULE BY MOUTH TWICE A DAY, 183, cm, 02/08/22 6:42:00 EDT, Height, 123.2, kg, 02/07/22 12:47:00 EDT, Dry Weight Start Date: 02/09/22 Status: Ordered omeprazole 20 mg oral enteric coated capsule 1 capsule, By Mouth, Daily, # 90 capsule, 0 Refills, Maintenance, 02/14/22 21:23:00 EDT, [facility] ST[facility] 8[facility]43, 183, cm, 02/08/22 6:42:00 EDT, Height, 123.2, kg, 02/07/22 12:47:00 EDT, Dry Weight Start Date: 02/14/22 Status: Ordered PAP Supplies - Mask, Tubing, Filters, Head Gear, Chin Strap, and Water Chamber PAP Supplies - Mask, Tubing, Filters, Head Gear, Chin Strap, and Water Chamber, See Instructions, #1 each, Refills 12, Tot. Refills 12, Maintenance, to be used with CPAP machine for dx: KERMIT G47.30, 01/18/22 16:53:00 EDT, Compound Start Date: 01/18/22 Status: Ordered pregabalin 300 mg oral capsule 1 capsule = 300 mg, By Mouth, 2 times a day, PRN pain, one tab twice daily prn pain, # 60 capsule, 0 Refills, Maintenance, 06/29/21 15:41:00 EST, Capsule, [facility]/pharmacy #[id number], Partial fill upon patient request if the prescription is for a schedule II o... Start Date: 06/29/21 Stop Date: 07/29/21 Status: Ordered primidone 50 mg oral tablet 100 mg, 2, tablet, By Mouth, 3 times a day, [facility] Dr. [facility], Refills 0, Maintenance, 03/07/19 8:44:30 EDT Start Date: 03/07/19 Status: Ordered risperiDONE 0.25 mg oral tablet [...] Maintenance, DX: M51. 26 please send to [facility], 01/21/21 13:20:00 EDT, Supply Start Date: 01/21/21 Status: Ordered Symbicort 160mcg/4.5mcg Inhaler 2, puffs, Inhalation, 2 times a day, # 6 Gm, Refills 0, Tot. Refills 0, Maintenance, 12/27/21 12:43:00 EDT, Aerosol, Route to Pharmacy Electronically, [id number], [facility]/pharmacy #[id number], 184, cm, 12/27/21 11:50:00 [...] drug., 184... Start Date: 12/07/21 Status: Ordered Problem List Condition Effective Dates Status Health Status Inform ant Polyp of colon, adenomatous( Confirmed) 1 08/09/16 Active Atypical facial pain, left(C onfirmed) 2, 3 Active Chronic low back pain(Confirmed) Active Constipation(Confirmed) Active Muscle cramps of lower extre mities + elevated CPK(Confirmed) Active Degeneration of lumbar inter vertebral disc(Confirmed) Active Diastolic dysfunction(Confirmed) Active Disorder of toe(Confirmed) Active Dyslipidemia(Confirmed) Active Bilateral edema of lower extremity(Confirmed) Active Tremor of both hands(Confirmed) 4 Active Generalized anxiety disorder with panic attacks(Confirmed) Active Hearing impairment(Confirmed) Active HTN (hypertension)(Confirmed) Active Ingrown left big toenail(Confirmed) Active Insomnia(Confirmed) Active Knee pain, bilateral(Confirmed) Active Bilateral lumbar radiculopathy(Confirmed) Active Lumbosacral radiculopathy(Confirmed) Active Lumbosacral spondylosis with out myelopathy(Confirmed) Active Memory impairment of gradual onset(Confirmed) Active Myofascial pain(Confirmed) Active Obese class II(Confirmed) Active Obesity (BMI 30-39.9)(Confirmed) Active KERMIT (obstructive sleep apnea ): bipap 2 liters oxygen(Confirmed) Active Onychomycosis of toenail(Confirmed) Active Osteoarthritis of both knees(Confirmed) Active Left [...] provided increased discomfort related to nerves. 3Seeing [place] neurology and sleep. Given a trial of Tegretol 200 mg upto 2 tablets twice a day andadvised to continue with Lyrica 300 mg twice a day. Had some improvement of the facial pain with this regimen. 4Seeing [place] neurology and asleep. On 09/11/2018 started on a trial of primidone 50 mg, 1 tablet for 1 week and then twice a day. 5Seeing Aydin Castrejon 6per pt, he is on disability, seen by Dr. Pollock 7Simvastatin 40 mg d/sedrick. Social History Social History Type Response Smoking Status 5-9 cigarettes (betw een 06/22 to 06/20 pack)/day in last 30 days entered on: 12/27/21 Sex Care Team Personnel Name: Ivone Oneil MD Address: [address] [place] [phone]
--- OUTSIDE RECORDS SUMMARY | 2023-11-02 08:22 | XMS_ITS | Continuity of Care Document ---
Author Organization [facility] Address [address] [place] [address]- Care Team Providers Care Blue Line Trimmer Name Role Phone Terence PRATHER, Azra Primary Care Physician Encounter [facility] Date(s): 03/13/20 - 04/12/[address] [address]- [facility] Allergies, Adverse Reactions, Alerts Substance Reaction Severity [...] 01/15/20 9:51:00 EDT, Route to Pharmacy Electronically, [facility]/pharmacy #[id number], 184, cm, 01/15/20 9:11:00 EDT, Height, 123.27, kg, 06/25/19 13:22:00 EST, Dry Weight Start Date: 01/15/20 Stop Date: 03/15/20 Status: Ordered aspirin 81 mg oral tablet 1 tablet = 81 mg, By Mouth, Daily, # 90 tablet, 3 Refills, Maintenance, 01/15/20 9:51:00 EDT, Tablet, [facility]/pharmacy #[id number], 184, cm, 01/15/20 9:11:00 EDT, [...] 02/07/20 9:49:00 EDT, Route to Pharmacy Electronically, [facility]/pharmacy #[id number], 184, cm, 01/29/20 14:16:00 EDT, [...] 02/19/20 13:12:00 EDT, Route to Pharmacy Electronically, [id number], 184, cm, 01/29/20 14:16:00 EDT, Height, 123.2... Start Date: 02/19/20 Stop Date: 08/17/20 Status: Ordered cyanocobalamin 1000 mcg oral tablet 1,000 mcg, 1, tablet, By Mouth, Daily, # 90 tablet, Refills 11, Tot. Refills 11, Maintenance, 08/17/20 13:12:00 EST, Route to Pharmacy Electronically, [facility]/pharmacy #[id number], 184, cm, 02/28/20 15:58:00 EDT, [...] 3 Refills, Maintenance, 01/15/20 9:51:00 EDT, Tablet, [facility]/pharmacy #[id number], 184, cm, 01/15/20 9:11:00 EDT, Height, 123.27, kg, 06/25/19 13:22:00 EST, Dry Weight Start Date: 01/15/20 Stop Date: 03/15/20 Status: Ordered fluticasone 50 mcg/inh nasal spray See Instructions, USE 1 SPRAY IN EACH NOSTRIL EVERY MORNING, # 16 mL, 0 Refills, Maintenance, [facility] STORE [facility], 30, USE 1 SPRAY IN EACH NOSTRIL [...] provided increased discomfort related to nerves. 3Seeing neurology and sleep. Given a trial of [...]
--- OUTSIDE RECORDS SUMMARY | 2023-11-02 08:22 | XMS_ITS | Continuity of Care Document ---
Author Organization [facility] Address [address] [place] [address]- Care Team Providers Care Assistant Professor Name Role Phone Terence PRATHER, Azra Primary Care Physician [phone] Encounter [facility] Date(s): 03/02/20 - 04/01/[address] [address]- [facility] Allergies, Adverse Reactions, Alerts Substance Reaction Severity [...] 01/15/20 9:51:00 EDT, Route to Pharmacy Electronically, [facility]/pharmacy #[id number], 184, cm, 01/15/20 9:11:00 EDT, Height, 123.27, kg, 06/25/19 13:22:00 EST, Dry Weight Start Date: 01/15/20 Stop Date: 03/15/20 Status: Ordered aspirin 81 mg oral tablet 1 tablet = 81 mg, By Mouth, Daily, # 90 tablet, 3 Refills, Maintenance, 01/15/20 9:51:00 EDT, Tablet, [facility]/pharmacy #[id number], 184, cm, 01/15/20 9:11:00 EDT, [...] 02/07/20 9:49:00 EDT, Route to Pharmacy Electronically, [facility]/pharmacy #[id number], 184, cm, 01/29/20 14:16:00 EDT, [...] 13:12:00 EST, Route to Pharmacy Electronically, [facility]/pharmacy #[id number], 184, cm, 02/28/20 15:58:00 EDT, [...] Refills, Maintenance, 01/15/20 9:51:00 EDT, Tablet, [facility]/pharmacy #[id number], 184, cm, 01/15/20 9:11:00 EDT, Height, 123.27, kg, 06/25/19 13:22:00 EST, Dry Weight Start Date: 01/15/20 Stop Date: 03/15/20 Status: Ordered fluticasone 50 mcg/inh nasal spray See Instructions, USE 1 SPRAY IN EACH NOSTRIL EVERY MORNING, # 16 mL, 0 Refills, Maintenance, [facility] STORE [facility]28[facility], 30, USE 1 SPRAY IN EACH NOSTRIL [...] provided increased discomfort related to nerves. 3Seeing [place] neurology and sleep. Given a trial of [...]
--- OUTSIDE RECORDS SUMMARY | 2023-11-02 08:22 | XMS_ITS | Continuity of Care Document ---
Author Organization [facility] Address [address] [place] [address]- Care Team Providers Care Erco Machine Operator Name Role Phone Contractor Krystal FERNANDEZ Primary Care Physician [phone] [facility]counter [facility] Date(s): 05/24/21 - 06/23/[address] [address]- Allergies, Adverse Reactions, Alerts Substance Reaction Severity [...] acel(Tdap) 11/25/14 Given 1Result Comment: DILUENT LOT#: [id number] EXP: 11/2022 MFG: FRESENSIUS Medications amitriptyline 100 mg oral tablet 1 tablet = 100 mg, By Mouth, Daily at bedtime, # 30 tablet, 3 Refills, Maintenance, 04/13/21 10:02:00 EDT, Tablet, [facility]/pharmacy #[id number], Partial fill upon patient [...] 3 Refills, Maintenance, 03/03/21 17:24:00 EDT, Tablet, [facility]/pharmacy #[id number], Partial fill upo... Start Date: 03/03/21 Status: Ordered aspirin 81 mg oral delayed release tablet 81 mg, 1, tablet, By Mouth, Daily, # 90 tablet, Refills 0, Tot. Refills 0, Maintenance, 01/01/21 11:26:00 EDT, Route to Pharmacy Electronically, [facility]/pharmacy #[id number], Partial fill upon patient [...] Need length 99 months Please send to [facility] [employer] [facility], 01/21/21 13:20:00 EDT, Supply Start Date: 01/21/21 Status: Ordered carbidopa-levodopa 25 mg-100 mg oral tablet 1 tablet, By Mouth, 3 times a day, Rx'd by Neurology at [facility] Alisa Langston/ Dr. Murphy, # 270 tablet, 0 Refills, Maintenance, 04/15/21 23:30:00 EDT, Tablet, Partial fill upon patient request if the prescription is for a schedule II opioid drug. Start Date: 04/15/21 Status: Ordered chlorthalidone 25 mg oral tablet 1, tablet, By Mouth, Daily, # 30 tablet, Refills 5, Route to Pharmacy Electronically, [facility] STORE 77074, 184, cm, 03/30/21 16:08:00 EDT, Height, 123.27, kg, 06/25/19 13:22:00 EST, Dry Weight Start Date: 04/07/21 Status: Ordered Claritin 10 mg oral tablet 10 mg, 1, tablet, By Mouth, Daily, more sea necesario para alergia, # 30 tablet, Refills 5, Tot. Refills 5, Maintenance, 04/13/21 10:04:00 EDT, Route to Pharmacy Electronically, [facility]/pharmacy #[id number], 184, cm, 04/13/21 9:26:00 EDT, Height, 123.27, kg, 01... Start Date: 04/13/21 Status: Ordered clonazePAM 2 mg oral tablet See Instructions, 1 tablet by mouth only NEEDED for severe panic attack. Dispense: #20 tabs per 30d., # 20 tablet, 0 Refills, Maintenance, 06/22/21 15:50:00 EST, Tablet, [facility]/pharmacy #[id number], Partial fill upon patient [...] 0 Refills, Maintenance, 03/03/21 17:36:00 EDT, Cream, [facility]/pharmacy #[id number], Partial fill upon patient request if the prescription is for a schedule II opioid drug., 1 application Topically 3 ti... Start Date: 03/03/21 Status: Ordered cyanocobalamin 1000 mcg oral tablet 1,000 mcg, 1, tablet, By Mouth, Daily, # 90 tablet, Refills 11, Tot. Refills 11, Maintenance, 08/02/23 13:12:00 EST, Route to Pharmacy Electronically, [facility]/pharmacy #[id number], 184, cm, 01/01/21 10:56:00 [...] 5 Refills, Maintenance, 01/11/21 15:23:00 EDT, Tablet, [facility]/pharmacy #[id number], Partial fill upon patient request if the prescription is for a schedule II opioid drug., 184, cm,... Start Date: 01/11/21 Status: Ordered escitalopram 10 mg oral tablet 1 tablet = 10 mg, By Mouth, Daily, New medication for anxiety and depression (started 06/01/21), # 30 tablet, 5 Refills, Maintenance, 06/01/21 11:00:00 EST, Tablet, [facility]/pharmacy #[id number], Partial fill upon patient request if the prescription is for a jessica... Start Date: 06/01/21 Status: Ordered fluticasone 50 mcg/inh nasal spray See Instructions, USE 1 SPRAY IN EACH NOSTRIL EVERY MORNING, # 16 mL, 3 Refills, 01/29/21 9:11:00 EDT, [facility]/pharmacy #[id number], 30, USE 1 SPRAY IN [...] 2 Refills, Maintenance, 02/10/21 13:09:00 EDT, Ointment, [facility]/pharmacy #[id number], Partial fill upon patient request if the prescription is for a schedule II opioid drug., 1 application Top... Start Date: 02/10/21 Status: Ordered magnesium oxide 400 mg oral tablet 1 tablet = 400 mg, By Mouth, Daily, Rx'd by Neurology at [facility] Alisa Langston/ Dr. Murphy, 0 Refills, Maintenance, 04/15/21 23:30:00 [...] Topically, Daily, for 6 week(s), Rx in Indonesian, # 42 patch, 1 Refills, Acute 08/16/21 16:13:00 EST, 05/24/21 16:13:00 EST, Patch, [facility]/pharmacy #[id number], Partial fill upon patient [...] Mouth, Daily, # 90 capsule, 0 Refills, [facility], 184, cm, 06/14/21 11:01:00 EST, Height, 123.27, kg, 06/25/19 13:22:00 EST, Dry Weight Start Date: 06/23/21 Status: Ordered pregabalin 300 mg oral capsule TAKE 1 CAPSULE BY MOUTH TWICE A DAY NEEDED FOR PAIN Start Date: 01/29/21 Status: Ordered Shower Chair See Instructions, # 1 each, Refills 0, Tot. Refills 0, Maintenance, DX: M51. 26 please send to [facility], 01/21/21 13:20:00 EDT, Supply Start Date: 01/21/21 Status: Ordered sulindac 150 mg oral tablet See Instructions, TAKE 1 TABLET BY MOUTH TWICE A DAY NEEDED FOR PAIN, # 28 tablet, 0 Refills, Maintenance, [facility], 184, cm, 02/01/21 10:51:00 EDT, Height, 123.27, kg, 06/25/19 13:22:00 EST, Dry Weight Start Date: 02/01/21 Status: Ordered Tylenol Extra Strength 500 mg oral tablet 2 tablet = 1,000 mg, By Mouth, 3 times a day, PRN as needed for pain, # 100 tablet, 5 Refills, Maintenance, 04/13/21 10:08:00 EDT, Tablet, [facility]/pharmacy #[id number], Partial fill upon patient request if theprescription [...] Active KERMIT (obstructive sleep apnea ): bipap 19/14 2 liters oxygen(Confirmed) Active Osteoarthritis of both [...] provided increased discomfort related to nerves. 3Seeing [place] neurology and sleep. Given a trial of Tegretol 200 mg upto 2 tablets twice a day andadvised to continue with Lyrica 300 mg twice a day. Had some improvement of the facial pain with this regimen. 4Seeing [place] neurology and asleep. On 09/11/2018 started on [...]
--- OUTSIDE RECORDS SUMMARY | 2023-11-02 08:22 | XMS_ITS | Continuity of Care Document ---
Author Organization [facility] Address [address] [place] [address]- Care Team Providers Care Supervisor Shuttle Veneering Name Role Phone Ivone Oneil MD Primary Care Physician [phone] [facility]counter [facility] Date[facility]s): 07/29/22 - 08/28/22 [facility] [address] [place] [address]- Allergies, Adverse Reactions, Alerts Substance Reaction Severity [...] Vaccine (oldterm) 02/17/17 Recorded pneumococcal 23-valent vaccine 8/30/16 Given tetanus/diphtheria/pertussis, acel(Tdap) 11/25/14 Given 1Result Comment: DILUENT LOT#: [id number] EXP: 11/2022 MFG: FRESENSIUS Medications amitriptyline 100 mg oral tablet 1 tablet = 100 mg, By Mouth, Daily at bedtime, # 30 tablet, 3 Refills, Maintenance, 12/27/21 12:09:00 EDT, Tablet, [facility]/pharmacy #[id number], Partial fill upon patient [...] 1 Refills, Maintenance, 05/13/22 14:40:00 EST, Tablet, [facility]/pharmacy #[id number], Partial fill upon patient [...] Need length 99 months Please send to [facility], 01/21/21 13:20:00 EDT, Supply Start Date: 01/21/21 Status: Ordered chlorthalidone 25 mg oral tablet 25 mg, 1, tablet, By Mouth, Daily, # 30 tablet, Refills 2, Tot. Refills 2, Maintenance, 08/23/22 8:42:00 EST, Route to Pharmacy Electronically, [id number], Partial fill upon patient request if the prescription is for a schedule II opioid drug.... Start Date: 08/23/22 Status: Ordered clonazePAM 2 mg oral tablet See Instructions, 1 tablet by mouth only NEEDED for severe panic attack. Dispense: #20 tabs per 20d., # 20 tablet, 0 Refills, Maintenance, 08/18/21 15:21:00 EST, Tablet, [facility]/pharmacy #[id number], Partial fill upon patient [...] 07/17/26 13:12:00 EST, Route to Pharmacy Electronically, [facility]/pharmacy #[id number], 184, cm, 07/26/21 9:11:00 EST, Height Start Date: 07/17/26 Stop Date: 07/01/29 Status: Ordered cyanocobalamin 1000 mcg oral tablet 1,000 mcg, 1, tablet, By Mouth, Daily, for 90 days, # 90 tablet, Refills 11, Tot. Refills 11, Hard Stop 07/17/26 13:12:00 EST, 08/02/23 13:12:00 EST, Route to Pharmacy Electronically, [facility]/pharmacy #[id number], 184, cm, 01/01/21 10:56:00 EDT, Height, 123.27,... Start Date: 08/02/23 Stop Date: 07/17/26 Status: Ordered cyclobenzaprine 5 mg oral tablet 1 tablet = 5 mg, By Mouth, 3 times a day, PRN Pain , Severe, for 10 days, # 30 tablet, 0 Refills, Acute 09/02/22 14:26:00 EDT, 08/23/22 14:26:00 EST, Tablet, [facility]/pharmacy #[id number], Partial fill upon patient request if the prescription is for a schedule I... Start Date: 08/23/22 Stop Date: 09/02/22 Status: Ordered Diabetic socks Diabetic socks, See [...] Gm, 2 Refills, Maintenance, 07/28/22 8:54:00 EST, [facility] STORE [facility], 30, APPLY TOPICALLY TO AFFECTED ARE TWICE A DAY NEEDED FOR PAIN, 183, cm, 07/07/22 10:54:00 E... Start Date: 07/28/22 Status: Ordered empagliflozin 10 mg oral tablet 1 tablet = 10 mg, By Mouth, Daily in AM, # 30 tablet, 2 Refills, Maintenance, 08/23/22 8:44:00 EST,Tablet, [facility]/pharmacy #[id number], Partial fill upon patient request if the [...] 6, Tot. Refills 6, Maintenance, Dx: E11.65 Use up to 3 times daily, 08/24/22 8:45:00 EST, Compound, 183, cm, 08/22/22 8:28:00 EST, Height, 123.2, kg, 02/07/22 12:47:00 EDT, Dry Weight Start Date: 08/24/22 Status: Ordered levocetirizine 5 mg oral tablet 1 tablet = 5 mg, By Mouth, Daily in AM, # 30 tablet, 2 Refills, Maintenance, 08/23/22 8:44:00 EST, Tablet, [facility]/pharmacy #[id number], Label in yoruba, cetrizine not effective, 1 tablet By Mouth Daily in AM, 183, cm, 08/22/22 8:28:00 EST, Height, 123.2, kg,... Start Date: 08/23/22 Status: Ordered loratadine 10 mg oral tablet 1, tablet, By Mouth, Daily, PRN, # 90 tablet, Refills 1, NEEDED FOR ALLERGIES, Route to PharmacyElectronically, [facility] 27[facility], 184, cm, 10/18/21 13:37:00 EDT, Height Start Date: 10/22/21 Status: Ordered magnesium oxide 400 mg oral tablet 1 tablet = 400 mg, By Mouth, Daily, Rx'd by Neurology at [facility] Alisa Burlingame/ Dr. Murphy, 0 Refills, Maintenance, 04/15/21 23:30:00 [...] tablet, 3 Refills, Maintenance, 09/16/2211:15:00 EDT, Tablet, [facility]/pharmacy #[id number], Partial f... Start Date: 09/15/21 Status: Ordered Nicotine 2 mg gum See Instructions, CHEW 1 PIECE OF GUM EVERY 2 HOURS NEEDED FOR SMOKING CESSATION, # 40 gum, 0 Refills, [facility] STORE 633[facility], 184, cm, 12/27/21 11:50:00 EDT, Height Start [...] # 180 capsule, 3 Refills, [facility], 90, TAKE 1 CAPSULE BY MOUTH TWICE [...] Refills, Maintenance, 03/22/22 8:30:00 EDT, [facility], 14, DISSOLVE 17 GRAMS IN WATER & [...] times a day, Rx'd by Neurology at [facility]/ Dr. Murphy, Refills 0, Maintenance, 03/07/19 8:44:30 [...] Maintenance, DX: M51. 26 please send to [facility], 08/08/22 15:41:00 EST, Supply Start Date: 08/08/22 Status: Ordered Symbicort 160mcg/4.5mcg Inhaler 2, puffs, Inhalation, 2 times a day, # 6 Gm, Refills 0, Tot. Refills 0, Maintenance, 12/27/21 12:43:00 EDT, Aerosol, Route to Pharmacy Electronically, [id number], [facility]/pharmacy #[id number], 184, cm, 12/27/21 11:50:00 EDT, Height Start Date: 12/27/21 Status: Ordered Tylenol Extra Strength 500 mg oral tablet 2 tablet = 1,000 mg, By Mouth, 3 times a day, PRN as needed for pain, # 100 tablet, 5 Refills, Maintenance, 12/07/21 10:44:00 EDT, Tablet, [facility]/pharmacy #[id number], Partial fill upon patient request if theprescription is for a schedule II opioid drug., 184... Start Date: 12/07/21 Status: Ordered valsartan 320 mg oral tablet 1 tablet, By Mouth, Daily, # 90 tablet, 3 Refills, Maintenance, 03/15/22 14:29:00 EDT, [facility], 183, cm, 02/08/22 6:42:00 EDT, Height, 123.2, [...] provided increased discomfort related to nerves. 3Seeing [place] neurology and sleep. Given a trial of Tegretol 200 mg upto 2 tablets twice a day andadvised to continue with Lyrica 300 mg twice a day. Had some improvement of the facial pain with this regimen. 4Seeing [place] neurology and asleep. On 09/11/2018 started on [...] Care Team Personnel Name: Olimpia Parker Position: [facility] JUAN Office Staff Member Role: Lifetime Consulting Physician Name: Ivone Oneil MD Position: [facility] Primary Care Physician Member Role: PCP Address: Address: [address] [place] [address]- Care Team Related Persons Name: JARROD BRADFORD Address: home [address] [place] [address] Name: LOLA BRADFORD Address: home [address] [place] [address] Name: GOLDIE LERMA Address: [place] [address] Name: OLIMPIA LERMA Address: [place] [address] Name: KADE LERMA Address: home [address] [place] [id number] Name: KADE LERMA Address: [address] [place] [id number]
--- OUTSIDE RECORDS SUMMARY | 2023-11-02 08:22 | XMS_ITS | Continuity of Care Document ---
Author Organization [facility] Address [address] [place] [address]- Care Team Providers Care Maintenance Mgr Name Role Phone Ivone Oneil MD Primary Care Physician [facility] Date[facility]s): 10/20/22 - 11/19/[address] [address]- Allergies, Adverse Reactions, Alerts Substance Reaction Severity [...] acel(Tdap) 11/25/14 Given 1Result Comment: DILUENT LOT#: [id number] EXP: 11/2022 MFG: FRESENSIUS Medications Aripiprazole 2 mg, Rx'd by ANJEL Bear, Refills 0, Maintenance, 10/04/22 8:25:00 EDT, Partial fill upon patient request if the prescription is for a schedule II opioid drug. Start Date: 10/04/22 Status: Ordered Aspirin Tablet 325 mg, By Mouth, 2 times a day, Refills 0, Maintenance, 02/08/22 9:59:00 EDT, Partial fill upon patient request if the prescription is for a schedule II opioid drug. Start Date: 02/08/22 Status: Ordered atorvastatin 20 mg oral tablet 1 tablet = 20 mg, By Mouth, Daily, # 90 tablet, 1 Refills, Maintenance, 11/17/22 10:19:00 EDT, Tablet, [facility]/pharmacy #[id number], Partial fill upon patient [...] Need length 99 months Please send to [place] [facility] [facility], 01/21/21 13:20:00 EDT, Supply Start Date: 01/21/21 Status: Ordered carbidopa-levodopa 25 mg-100 mg oral tablet 1 tablet, By Mouth, 2 times a day, Rx'd by neurology at [facility], # 60 tablet, 0 Refills, Maintenance, 10/04/22 8:23:00 EDT, Tablet, Partial fill upon patient request if the prescription is for a schedule II opioid drug. Start Date: 10/04/22 Status: Ordered chlorthalidone 25 mg oral tablet 25 mg, 1, tablet, By Mouth, Daily, # 30 tablet, Refills 5, Tot. Refills 5, Maintenance, 11/08/22 8:09:00 EDT, Route to Pharmacy Electronically, [facility]/pharmacy #[id number], Partial fill upon patient [...] 07/01/29 13:12:00 EST, Route to Pharmacy Electronically, [facility]/pharmacy #[id number], 183, cm, 08/22/22 8:28:00 EST,Height, 123.2, [...] Gm, 2 Refills, Maintenance, 07/28/22 8:54:00 EST, [facility] STORE 78216, 30, APPLY TOPICALLY TO AFFECTED ARE TWICE A DAY NEEDED FOR PAIN, 183, cm, 07/07/22 10:54:00 E... Start Date: 07/28/22 Status: Ordered empagliflozin 25 mg oral tablet 1 tablet = 25 mg, By Mouth, Daily in AM, # 30 tablet, 11 Refills, Maintenance, 11/10/22 8:59:00 EDT, Tablet, [facility]/pharmacy #4701, Partial fill upon patient request if the prescription is for a schedule II opioid drug. note dose increase, please stop me... Start Date: 11/10/22 Status: Ordered FREESTYLE 28G LANCETS FREESTYLE 28G [...] Daily at bedtime, Rx'd by neurology at [facility], 0 Refills, Maintenance, 10/04/22 8:24:00 EDT, Capsule, Partial fill upon patient request if the prescription is for a schedule II opioid drug. Start Date: 10/04/22 Status: Ordered levocetirizine 5 mg oral tablet 1 tablet = 5 mg, By Mouth, Daily in AM, # 30 tablet, 5 Refills, Maintenance, 11/17/22 10:19:00 EDT,Tablet, [facility]/pharmacy #4471, Label in kenyan, cetrizine not effective, 1 tablet By Mouth Daily in AM, 183, cm, 11/10/22 8:32:00 EDT, Height, 123.2, kg,... Start Date: 11/17/22 Status: Ordered loratadine 10 mg oral tablet 1, tablet, By Mouth, Daily, PRN, # 90 tablet, Refills 1, NEEDED FOR ALLERGIES, Route to PharmacyElectronically, [facility] STORE 02165, 184, cm, 10/18/21 13:37:00 EDT, Height Start Date: 10/22/21 Status: Ordered Metamucil 3.4 gm/5.2 gm oral powder for reconstitution = 3.4 Gm, By Mouth, 3 times a day, PRN as needed for constipation, # 425 Gm, 11 Refills, Maintenance, 09/12/22 20:51:00 EDT, REC Powder, [facility]/pharmacy #[id number], Partial fill upon patient [...] SMOKING CESSATION, # 40 gum, 0 Refills, [facility] 284[facility], 184, cm, 12/27/21 11:50:00 EDT, Height Start [...] a day, # 180 capsule, 3 Refills, [facility], 90, TAKE 1 CAPSULE BY MOUTH TWICE A DAY, 183, cm, 02/08/22 6:42:00 EDT, Height, 123.2, kg, 02/07/22 12:47:00 EDT, Dry Weight Start Date: 02/09/22 Status: Ordered omeprazole 20 mg oral enteric coated capsule 1 capsule, By Mouth, Daily, # 90 capsule, 0 Refills, Maintenance, 09/09/22 8:09:00 EDT, [facility]/pharmacy #[id number], 183, cm, 09/07/22 10:39:00 EDT, Height, 123.2, kg, 02/07/22 12:47:00 EDT, Dry Weight Start Date: 09/09/22 Status: Ordered One Touch Ultra 2 Glucose [...] Gm, 1 Refills, Maintenance, 08/31/22 9:06:00 EDT, [facility]/pharmacy #[id number], 14,DISSOLVE 17 GRAMS IN WATER & DRINK ONCE A DAY UNTIL BM,... Start Date: 08/31/22 Status: Ordered pregabalin 300 mg oral capsule 1 capsule = 300 mg, By Mouth, 2 times a day, Rx'd by neurology at [facility], # 60 capsule, 0 Refills, Maintenance, 10/04/22 8:24:00 EDT, Capsule, Partial fill upon patient request if the prescription is for a schedule II opioid drug. Start Date: 10/04/22 Status: Ordered Raised Toilet Seat - Elongated Raised Toilet Seat - Elongated, See Instructions, # 1 each, Refills 0, Tot. Refills 0, Maintenance,to be used during toileting dx: M51.26, 02/25/22 16:17:00 EDT, Supply Start Date: 02/25/22 Status: Ordered rOPINIRole 0.25 mg oral tablet 2 tablet = 0.5 mg, By Mouth, 3 times a day, Rx'd by neurology at [facility], # 270 tablet, 0 Refills, Maintenance, [...] Maintenance, DX: M51. 26 please send to [facility], 08/08/22 15:41:00 EST, Supply Start Date: 08/08/22 Status: Ordered Symbicort 160mcg/4.5mcg Inhaler 2, puffs, Inhalation, 2 times a day, # 6 Gm, Refills 0, Tot. Refills 0, Maintenance, 12/27/21 12:43:00 EDT, Aerosol, Route to Pharmacy Electronically, [id number], [facility]/pharmacy #[id number], 184, cm, 12/27/21 11:50:00 EDT, Height Start Date: 12/27/21 Status: Ordered traMADol 50 mg oral tablet 1 tablet = 50 mg, By Mouth, Every 12 hours, PRN for pain, Rx'd by [facility], # 60 tablet, 0 Refills, Maintenance, 10/04/22 8:26:00 EDT, Tablet, Partial fill upon patient request if the prescription is for a schedule II opioid drug. Start Date: 10/04/22 Status: Ordered Tylenol Extra Strength 500 mg oral tablet 2 tablet = 1,000 mg, By Mouth, 3 times a day, PRN as needed for pain, # 100 tablet, 5 Refills, Maintenance, 12/07/21 10:44:00 EDT, Tablet, [facility], Partial fill upon patient request if theprescription is for a schedule II opioid drug., 184... Start Date: 12/07/21 Status: Ordered valsartan 320 mg oral tablet 1 tablet, By Mouth, Daily, # 90 tablet, 3 Refills, Maintenance, 03/15/22 14:29:00 EDT, [facility], 183, cm, 02/08/22 6:42:00 EDT, Height, 123.2, kg, 02/07/22 12:47:00 EDT, Dry Weight Start Date: 03/15/22 Status: Ordered Problem List Condition Confirmation Course Effective Dates Status H ealth Status Informant Polyp of colon, adenomatous 1 Confirmed 08/09/16 Active Atypical facial pain, left 2, 3 Confirmed Active Constipation Confirmed Active Muscle cramps of lower extremities + elevated CPK Confirmed Active Diastolic dysfunction Confirmed Active Dyslipidemia [...] Confirmed Active KERMIT (obstructive sleep apnea): bipap 19/14 2 liters oxygen Confirmed Active Osteoarthritis of [...] provided increased discomfort related to nerves. 3Seeing [place] neurology and sleep. Given a trial of [...] Care Team Personnel Name: Olimpia Parker Position: [facility] Office Staff Member Role: Lifetime Consulting Physician Name: Ivone Oneil MD Position: [facility] Physician - Primary Care Member Role: PCP Address: Address: [address] [place] [address]- Care Team Related Persons Name: JARROD BRADFORD Address: home [address] [place] [address] Name: LOLA BRADFORD Address: home [address] [place] [address] Name: GOLDIE LERMA Address: [place] [address] Name: OLIPMIA LERMA Address: [place] [address] Name: KADE LERMA Address: home [address] [place] [id number] Name: KADE LERMA Address: home [address] [place] [id number]
--- OUTSIDE RECORDS SUMMARY | 2023-11-02 08:22 | XMS_ITS | Continuity of Care Document ---
Author Organization [facility] Address [address] [place] [address]- Care Team Providers Care Production Planning Supervisor Name Role Phone Dayo Castano MD Primary Care Physician [facility]counter [facility] Date(s): 06/27/23 - 07/27/[address] [address]- Allergies, Adverse Reactions, Alerts Substance Reaction Severity [...] influenza virus vaccine, inactivated 04/16/15 Give n [id number] 12y+ bivalent booster vax 02/21/23 Given SARS-CoV-2 (COVID-19) mRNA BNT-162b2 vac 1 06/01/21 Given SARS-CoV-2 (COVID-19) mRNA BNT-162b2 vac 11/07/20 Recorded SARS-CoV-2 (COVID-19) mRNA BNT-162b2 vac 10/17/20 Recorded zoster vaccine, inactivated 06/18/19 Recorded zoster vaccine, inactivated 06/17/19 Recorded zoster vaccine, inactivated 11/25/17 Recorded Influenza Vaccine (oldterm) 02/17/17 Recorded pneumococcal 23-valent vaccine 02/16/16 Given tetanus/diphtheria/pertussis, acel(Tdap) 11/25/14 Given 1Result Comment: DILUENT LOT#: [id number] EXP: 11/2022 MFG: FRESENSIUS Medications Albuterol (Eqv-ProAir [...] Mouth, Daily at bedtime, Rx'd by neurology ([facility]), # 30 tablet, 0 Refills, Maintenance, 12/08/22 [...] 3 Refills, Maintenance, 04/04/23 8:44:00 EDT, Tablet, [id number], Partial fill upon [...] Need length 99 months Please send to [facility], 01/21/21 13:20:00 EDT, Supply Start Date: 01/21/21 Status: Ordered carbidopa-levodopa 25 mg-100 mg oral tablet 1 tablet, By Mouth, 2 times a day, Rx'd by neurology at [facility], # 60 tablet, 0 Refills, Maintenance, 10/04/22 8:23:00 EDT, Tablet, Partial fill upon patient request if the prescription is for a schedule II opioid drug. Start Date: 10/04/22 Status: Ordered chlorthalidone 25 mg oral tablet 25 mg, 1, tablet, By Mouth, Daily in AM, Blood pressure, # 90 tablet, Refills 3, Tot. Refills 3, Maintenance, 04/04/23 8:45:00 EDT, Route to Pharmacy Electronically, [facility]/pharmacy #[id number], Partial fill upon [...] opioid drug. Start Date: 10/04/22 Status: Ordered cloNIDine 0.3 mg oral tablet TAKE 1 TABLET BY MOUTH EVERY DAY AT BEDTIME NEEDED Start Date: 07/04/23 Status: Ordered Compression Stockings See Instructions, # [...] EDT, Supply Start Date: 01/27/21 Status: Ordered [facility] Advanced Healing Ointment 41% [facility] Advanced Healing Ointment 41%, See Instructions, # 396 Gm, Refills 0, Tot. Refills 0, Maintenance, Apply topically twice daily., 07/04/23 15:04:00 EST, Supply, 183, cm, 07/04/23 8:49:00 EST, Height, 123.2, kg, 02/07/22 12:47:00 EDT, Dry Weight Start Date: 07/04/23 Status: Ordered cyanocobalamin 1000 mcg oral tablet 1,000 mcg, 1, tablet, By Mouth, Daily, # 90 tablet, Refills 3, Tot. Refills 3, Maintenance, 04/04/23 8:46:00 EDT, Route to Pharmacy Electronically, [facility]/pharmacy #[id number], 183, cm, 04/04/23 [...] PAIN, # 100 Gm, 5 Refills, Maintenance, 07/04/23 8:59:00 EST, [facility]/pharmacy #[id number], 30, APPLY TOPICALLY TO AFFECTED ARE TWICEA DAY NEEDED FOR PAIN, 183, cm, 07/04/23 8:49:00... Start Date: 07/04/23 Status: Ordered Epsom Salt Epsom Salt, See Instructions, # 1 each, Refills 0, Tot. Refills 0, Maintenance, Please use to soak fingers daily for 5-10 minutes., 05/05/23 9:12:00 EST, Supply, 183, cm, 05/05/23 8:43:00 EST, Height, 123.2, kg, 02/07/22 12:47:00 EDT, Dry Weight Start Date: 05/05/23 Status: Ordered escitalopram 20 mg oral tablet TAKE 1 TABLET BY MOUTH EVERY DAY Start Date: 07/04/23 Status: Ordered fexofenadine 60 mg oral tablet TAKE 1 TABLET BY MOUTH 2 TIMES A DAY NEEDED FOR ALLERGY SYMPTOMS Start Date: 07/04/23 Status: Ordered fexofenadine 60 mg oral tablet 1 tablet = 60 mg, By Mouth, 2 times a day, PRN for allergy symptoms, # 180 tablet, 0 Refills, Maintenance, 07/04/23 15:05:00 EST, Tablet, [facility]/pharmacy #[id number], Partial fill upon patient request if the prescription is for a schedule II opioid drug., 183,... Start Date: 07/04/23 Status: Ordered FREESTYLE 28G LANCETS FREESTYLE 28G [...] Daily at bedtime, Rx'd by neurology at [facility], 0 Refills, Maintenance, 10/04/22 8:24:00 EDT, Capsule, Partial fill upon patient request if the prescription is for a schedule II opioid drug. Start Date: 10/04/22 Status: Ordered loratadine 10 mg oral tablet 1, tablet, By Mouth, Daily, PRN, # 90 tablet, Refills 3, Tot. Refills 3, NEEDED FOR ALLERGIES, 04/04/23 8:42:00 EDT, Route to Pharmacy Electronically, [facility]/pharmacy #[id number], 183, cm, 04/04/23 8:24:00EDT, Height, 123.2, kg, 02/07/22 12:47:00 EDT, Dry... Start Date: 04/04/23 Status: Ordered Metamucil 3.4 gm/5.2 gm oral powder for reconstitution = 3.4 Gm, By Mouth, 3 times a day, PRN as needed for constipation, # 425 Gm, 11 Refills, Maintenance, 09/12/22 20:51:00 EDT, REC Powder, [facility]/pharmacy #[id number], Partial fill upon patient request if the prescription is for a schedule II opioid drug., 183,... Start Date: 09/12/22 Status: Ordered metFORMIN 500 mg oral tablet TAKE 2 TABLETS BY MOUTH TWICE A DAY FOR DIABETES Start Date: 07/06/23 Status: Ordered mirtazapine 7.5 mg oral tablet [...] SMOKING CESSATION, # 40 gum, 0 Refills, [id number], 184, cm, 12/27/21 11:50:00 EDT, Height Start [...] Stop 03/29/24 8:46:00 EDT, 04/04/23 8:46:00 EDT, [facility]/pharmacy #[id number], 1 capsule By Mouth 2 times a day,x90 days, 183, cm, 04/04/23 8:24:00 EDT, Height, 123.2, kg, /2... Start Date: 04/04/23 Stop Date: 03/29/24 Status: Ordered omeprazole 20 mg oral enteric coated capsule 1 capsule, By Mouth, Daily, # 90 capsule, 3 Refills, Maintenance, 04/04/23 8:46:00 EDT, [facility]/pharmacy #[id number], 183, cm, 04/04/23 [...] 11, Maintenance, check BG BID dx: E11., 11/18/22 15:53:00 EDT, Supply, 183, cm, 11/10/22 [...] Gm, 1 Refills, Maintenance, 04/04/23 8:46:00 EDT, [facility]/pharmacy #[id number], 14,DISSOLVE 17 GRAMS IN WATER & DRINK ONCE A DAY UNTIL BM,... Start Date: 04/04/23 Status: Ordered pregabalin 300 mg oral capsule 1 capsule = 300 mg, By Mouth, 2 times a day, Rx'd by neurology at [facility], # 60 capsule, 0 Refills, Maintenance, 10/04/22 8:24:00 EDT, Capsule, Partial fill upon patient request if the prescription is for a schedule II opioid drug. Start Date: 10/04/22 Status: Ordered primidone 50 mg oral tablet 100 mg, 2, tablet, By Mouth, 2 times a day, rx'd by neurology at [facility], # 120 tablet, Refills 0, Maintenance, 12/08/22 [...] times a day, Rx'd by neurology at [facility], # 270 tablet, 0 Refills, Maintenance, 10/04/22 [...] Maintenance, DX: M51. 26 please send to [facility] [place], 08/08/22 15:41:00 EST, Supply Start Date: 08/08/22 Status: Ordered Symbicort 160mcg/4.5mcg Inhaler 2, puffs, Inhalation, 2 times a day, # 6 Gm, Refills 11, Tot. Refills 11, Maintenance, 04/04/23 8:44:00 EDT, Aerosol, Route to Pharmacy Electronically, [id number], [facility]/pharmacy #[id number], 183, cm, 04/04/23 [...] 11 Refills, Maintenance, 04/04/23 8:43:00 EDT, Tablet, [facility]/pharmacy #[id number], Partial fill upon patient request if theprescription is for a schedule II opioid drug., 183... Start Date: 04/04/23 Status: Ordered valsartan 320 mg oral tablet 1 tablet, By Mouth, Daily, blood pressure, # 90 tablet, 3 Refills, Maintenance, 04/04/23 8:46:00 EDT, [facility]/pharmacy #[id number], 183, cm, 04/04/23 [...] provided increased discomfort related to nerves. 3Seeing [place] neurology and sleep. Given a trial of [...] Care Team Personnel Name: Olimpia Parker Position[facility] Office Staff Member Role: Lifetime Consulting Physician Name: Dayo Castano MD Position[facility] Phys[facility] - Primary Care Member Role: PCP Address: Address: [address] [place] [address]- Care Team Related Persons Name: JARROD BRADFORD Address: home [address] [place] [address] Name: LOLA BRADFORD Address: home [address] [place] [address] Name: GOLDIE LERMA Address: [place] [address] Name: IMELDA LERMANIFER Address: [place] [address] Name: KADE LERMA Address: home [address] [place] [address] Name: KADE LERMA Address: home [address] [place] [address]
--- OUTSIDE RECORDS SUMMARY | 2023-11-02 08:22 | XMS_ITS | Continuity of Care Document ---
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 Role Phone Eyad PRATHER, Dayo Primary Care Physician [facility] Date(s): 04/27/23 - 05/27/[address] [address]- Allergies, Adverse Reactions, Alerts Substance Reaction Severity Status penicillin Unknown Active gabapentin Active hydrOXYzine hydrochloride Ac tive Lantus Active Ventolin HFA Active Flovent HFA Active traZODone Active ZyrTEC Active SEROquel Active Immunizations Given and Recorded Vaccine Date Status Refusal Reason pneumococcal 20-valent conjugate vaccine 05/05/23 Given influenza virus vaccine, inactivated 04/04/23 Give n influenza virus vaccine, inactivated 03/31/22 Apvel rded influenza virus vaccine, inactivated 03/30/21 Give n influenza virus vaccine, inactivated 03/02/20 Pavel rded influenza virus vaccine, inactivated 03/07/19 Give n influenza virus vaccine, inactivated 03/28/18 Give n influenza virus vaccine, inactivated 02/10/18 Pavel rded influenza virus vaccine, inactivated 03/30/16 Give n influenza virus vaccine, inactivated 03/04/16 Give n influenza virus vaccine, inactivated 04/16/15 Give n [id number] 12y+ bivalent booster vax 02/21/23 Given SARS-CoV-2 (COVID-19) mRNA BNT-162b2 vac 1 06/01/21 Given SARS-CoV-2 (COVID-19) mRNA BNT-162b2 vac 11/07/20 Recorded SARS-CoV-2 (COVID-19) mRNA BNT-162b2 vac 10/17/20 Recorded zoster vaccine, inactivated 06/18/19 Recorded zoster vaccine, inactivated 06/17/19 Recorded zoster vaccine, inactivated 11/25/17 Recorded Influenza Vaccine (oldterm) 02/17/17 Recorded pneumococcal 23-valent vaccine 02/16/16 Given tetanus/diphtheria/pertussis, acel(Tdap) 11/25/14 Given 1Result Comment: DILUENT LOT#: [id number] EXP: 11/2022 MFG: FRESENSIUS Medications Albuterol (Eqv-ProAir [...] Mouth, Daily at bedtime, Rx'd by neurology ([facility]), # 30 tablet, 0 Refills, [...] Refills, Maintenance, 04/04/23 8:44:00 EDT, Tablet, [id number], Partial fill upon patient request if the [...] Need length 99 months Please send to [facility], 01/21/21 13:20:00 EDT, Supply Start Date: 01/21/21 Status: Ordered carbidopa-levodopa 25 mg-100 mg oral tablet 1 tablet, By Mouth, 2 times a day, Rx'd by neurology at [facility], # 60 tablet, 0 Refills, [...] 04/04/23 8:45:00 EDT, Route to Pharmacy Electronically, [facility]/pharmacy #[id number], Partial fill upon patient request if [...] 04/04/23 8:46:00 EDT, Route to Pharmacy Electronically, [facility]/pharmacy #[id number], 183, cm, 04/04/23 8:24:00 EDT, Height, [...] Gm, 5 Refills, Maintenance, 01/26/23 9:21:00 EDT, [facility]/pharmacy #[id number], 30, APPLY TOPICALLY TO AFFECTED ARE TWICEA DAY NEEDED FOR PAIN, 183, cm, 01/26/23 9:04:00... Start Date: 01/26/23 Status: Ordered diclofenac sodium 75 mg oral delayed release tablet 1 tablet = 75 mg, By Mouth, 2 times a day, PRN Pain , Severe, STOP DICLOFENAC GEL, # 60 tablet, 0 Refills, Maintenance, 05/19/23 12:59:00 EST, EC Tablet, [facility]/pharmacy #[id number], Partial fill upon patientrequest if the [...] 0 Refills, Maintenance, 05/05/23 9:15:00 EST, Tablet, [facility]/pharmacy #[id number], Partial fill upon patient request if [...] Daily at bedtime, Rx'd by neurology at [facility], 0 Refills, Maintenance, 10/04/22 8:24:00 EDT, Capsule, Partial fill upon patient request if the prescription is for a schedule II opioid drug. Start Date: 10/04/22 Status: Ordered loratadine 10 mg oral tablet 1, tablet, By Mouth, Daily, PRN, # 90 tablet, Refills 3, Tot. Refills 3, NEEDED FOR ALLERGIES, 04/04/23 8:42:00 EDT, Route to Pharmacy Electronically, [facility]/pharmacy #[id number], 183, cm, 04/04/23 8:24:00EDT, Height, 123.2, kg, 02/07/22 12:47:00 EDT, Dry... Start Date: 04/04/23 Status: Ordered Metamucil 3.4 gm/5.2 gm oral powder for reconstitution = 3.4 Gm, By Mouth, 3 times a day, PRN as needed for constipation, # 425 Gm, 11 Refills, Maintenance, 09/12/22 20:51:00 EDT, REC Powder, [facility]/pharmacy #[id number], Partial fill upon patient request if [...] SMOKING CESSATION, # 40 gum, 0 Refills, [id number], 184, cm, 12/27/21 11:50:00 EDT, Height Start [...] Stop 03/29/24 8:46:00 EDT, 04/04/23 8:46:00 EDT, [facility]/pharmacy #[id number], 1 capsule By Mouth 2 times a day,x90 days, 183, cm, 04/04/23 8:24:00 EDT, Height, 123.2, kg, 01/18... Start Date: 04/04/23 Stop Date: 03/29/24 Status: Ordered omeprazole 20 mg oral enteric coated capsule 1 capsule, By Mouth, Daily, # 90 capsule, 3 Refills, Maintenance, 04/04/23 8:46:00 EDT, [facility] [...] Gm, 1 Refills, Maintenance, 04/04/23 8:46:00 EDT, [facility]/pharmacy #[id number], 14,DISSOLVE 17 GRAMS IN WATER & DRINK ONCE A DAY UNTIL BM,... Start Date: 04/04/23 Status: Ordered pregabalin 300 mg oral capsule 1 capsule = 300 mg, By Mouth, 2 times a day, Rx'd by neurology at [facility], # 60 capsule, 0 Refills, Maintenance, 10/04/22 8:24:00 EDT, Capsule, Partial fill upon patient request if the prescription is for a schedule II opioid drug. Start Date: 10/04/22 Status: Ordered primidone 50 mg oral tablet 100 mg, 2, tablet, By Mouth, 2 times a day, rx'd by neurology at [facility], # 120 tablet, Refills 0, [...] times a day, Rx'd by neurology at [facility], # 270 tablet, 0 Refills, [...] Maintenance, DX: M51. 26 please send to [facility], 08/08/22 15:41:00 EST, Supply Start Date: 08/08/22 Status: Ordered Symbicort 160mcg/4.5mcg Inhaler 2, puffs, Inhalation, 2 times a day, # 6 Gm, Refills 11, Tot. Refills 11, Maintenance, 04/04/23 8:44:00 EDT, Aerosol, Route to Pharmacy Electronically, [id number], [facility]/pharmacy #[id number], 183, cm, 04/04/23 8:24:00 EDT, Height, [...] 11 Refills, Maintenance, 04/04/23 8:43:00 EDT, Tablet, [facility]/pharmacy #[id number], Partial fill upon patient request if theprescription is for a schedule II opioid drug., 183... Start Date: 04/04/23 Status: Ordered valsartan 320 mg oral tablet 1 tablet, By Mouth, Daily, blood pressure, # 90 tablet, 3 Refills, Maintenance, 04/04/23 8:46:00 EDT, [facility]/pharmacy #[id number], 183, cm, 04/04/23 8:24:00 EDT, Height, [...] provided increased discomfort related to nerves. 3Seeing [place] neurology and sleep. Given a trial of [...] Care Team Personnel Name: Olimpia Parker Position: [facility] Office Staff Member Role: Lifetime Consulting Physician Name: Dayo Castano MD Position: [facility] Physician - Primary Care Member Role: PCP Address: Address: [address] [place] [address]- Care Team Related Persons Name: JARROD BRADFORD Address: home [address] [place] [address] Name: LOLA BRADFORD Address: home [address] [place] [address] Name: GOLDIE LERMA Address: [place] [address] Name: OLIMPIA LERMA Address: [place] [address] Name: KADE LERMA Address: home [address] [place] [address] Name: KADE LERMA Address: home [address] [place] [address]
--- OUTSIDE RECORDS SUMMARY | 2023-11-02 08:22 | XMS_ITS | Continuity of Care Document ---
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 Role Phone Contractor Krystal FERNANDEZ Primary Care Physician [phone] [facility]counter [facility] Date(s): 05/05/21 - 06/04/[address] [address]- Allergies, Adverse Reactions, Alerts Substance Reaction Severity [...] acel(Tdap) 11/25/14 Given 1Result Comment: DILUENT LOT#: [id number] EXP: 11/2022 MFG: FRESENSIUS Medications amitriptyline 100 mg oral tablet 1 tablet = 100 mg, By Mouth, Daily at bedtime, # 30 tablet, 3 Refills, Maintenance, 04/13/21 10:02:00 EDT, Tablet, [facility]/pharmacy #[id number], Partial fill upon patient request [...] Refills, Maintenance, 03/03/21 17:24:00 EDT, Tablet, [facility]/pharmacy #[id number], Partial fill upo... Start Date: 03/03/21 Status: Ordered aspirin 81 mg oral delayed release tablet 81 mg, 1, tablet, By Mouth, Daily, # 90 tablet, Refills 0, Tot. Refills 0, Maintenance, 01/01/21 11:26:00 EDT, Route to Pharmacy Electronically, [facility]/pharmacy #[id number], Partial fill upon patient request [...] Need length 99 months Please send to [facility], 01/21/21 13:20:00 EDT, Supply Start Date: 01/21/21 Status: Ordered carbidopa-levodopa 25 mg-100 mg oral tablet 1 tablet, By Mouth, 3 times a day, Rx'd by Neurology at [facility] Alisa Nolan/ Dr. Murphy, # 270 tablet, 0 Refills, Maintenance, 04/15/21 23:30:00 EDT, Tablet, Partial fill upon patient request if the prescription is for a schedule II opioid drug. Start Date: 04/15/21 Status: Ordered chlorthalidone 25 mg oral tablet 1, tablet, By Mouth, Daily, # 30 tablet, Refills 5, Route to Pharmacy Electronically, [id number], 184, cm, 03/30/21 16:08:00 EDT, Height, 123.27, kg, 06/25/19 13:22:00 EST, Dry Weight Start Date: 04/07/21 Status: Ordered Claritin 10 mg oral tablet 10 mg, 1, tablet, By Mouth, Daily, more sea necesario para alergia, # 30 tablet, Refills 5, Tot. Refills 5, Maintenance, 04/13/21 10:04:00 EDT, Route to Pharmacy Electronically, [facility]/pharmacy #[id number], 184, cm, 04/13/21 9:26:00 EDT, Height, 123.27, kg, 01... Start Date: 04/13/21 Status: Ordered clonazePAM 2 mg oral tablet See Instructions, 1 tablet by mouth only NEEDED for severe panic attack. Dispense: #20 tabs per 30d., # 20 tablet, 0 Refills, Maintenance, 06/01/21 10:59:00 EST, Tablet, [facility]/pharmacy #[id number], Partial fill upon patient request if the prescription is... Start Date: 06/01/21 Status: Ordered Compression- Lower Extremity (Knee High) See Instructions, # 1 each, Refills 3, Tot. Refills 3, Maintenance, dx bilateral leg edema, wear daily 15-20 mmHG 1 pair, 01/27/21 17:48:00 EDT, Supply Start Date: 01/27/21 Status: Ordered Cortizone-10 Intensive Healing Formula 1% topical cream 1 application, Topically, 3 times a day, PRN Itch, # 60 Gm, 0 Refills, Maintenance, 03/03/21 17:36:00 EDT, Cream, [facility]/pharmacy #[id number], Partial fill upon patient request if the prescription is for a schedule II opioid drug., 1 application Topically 3 ti... Start Date: 03/03/21 Status: Ordered cyanocobalamin 1000 mcg oral tablet 1,000 mcg, 1, tablet, By Mouth, Daily, # 90 tablet, Refills 11, Tot. Refills 11, Maintenance, 08/02/23 13:12:00 EST, Route to Pharmacy Electronically, [facility]/pharmacy #[id number], 184, cm, 01/01/21 10:56:00 EDT, [...] 5 Refills, Maintenance, 01/11/21 15:23:00 EDT, Tablet, [facility]/pharmacy #[id number], Partial fill upon patient request if the prescription is for a schedule II opioid drug., 184, cm,... Start Date: 01/11/21 Status: Ordered escitalopram 10 mg oral tablet 1 tablet = 10 mg, By Mouth, Daily, New medication for anxiety and depression (started 06/01/21), # 30 tablet, 5 Refills, Maintenance, 06/01/21 11:00:00 EST, Tablet, [facility]/pharmacy #[id number], Partial fill upon patient request [...] 2 Refills, Maintenance, 02/10/21 13:09:00 EDT, Ointment, [facility]/pharmacy #[id number], Partial fill upon patient request if the prescription is for a schedule II opioid drug., 1 application Top... Start Date: 02/10/21 Status: Ordered magnesium oxide 400 mg oral tablet 1 tablet = 400 mg, By Mouth, Daily, [facility] Dr[facility], 0 Refills, Maintenance, 04/15/21 23:30:00 [...] 3 Refills, Maintenance, 03/03/21 17:29:00 EDT, Tablet, [facility]/pharmacy #[id number], Partial fill upon p... Start Date: 03/03/21 Status: Ordered nicotine 21 mg/24 hr transdermal film, extended release 1 patch, Topically, Daily, for 6 week(s), Rx in [place]ik, # 42 patch, 1 Refills, Acute 08/16/21 16:13:00 EST, 05/24/21 16:13:00 EST, Patch, [facility]/pharmacy #[id number], Partial fill upon patient request [...] Daily, # 30 capsule, 2 Refills, Maintenance, 05/04/21 11:15:00 EST, ECCapsule, [id number], 184, cm, 04/22/21 15:18:00 EDT, Height, 123.27, kg, 06/25/19 13:22:00 EST, Dry Weight Start Date: 05/04/21 Status: Ordered pregabalin 300 mg oral capsule TAKE 1 CAPSULE BY MOUTH TWICE A DAY NEEDED FOR PAIN Start Date: 01/29/21 Status: Ordered Shower Chair See Instructions, # 1 each, Refills 0, Tot. Refills 0, Maintenance, DX: M51. 26 please send to [facility] [place], 01/21/21 13:20:00 EDT, Supply Start Date: 01/21/21 Status: Ordered sulindac 150 mg oral tablet See Instructions, TAKE 1 TABLET BY MOUTH TWICE A DAY NEEDED FOR PAIN, # 28 tablet, 0 Refills, Maintenance, [id number], 184, cm, 02/01/21 10:51:00 EDT, Height, 123.27, kg, 06/25/19 13:22:00 EST, Dry Weight Start Date: 02/01/21 Status: Ordered Tylenol Extra Strength 500 mg oral tablet 2 tablet = 1,000 mg, By Mouth, 3 times a day, PRN as needed for pain, # 100 tablet, 5 Refills, Maintenance, 04/13/21 10:08:00 EDT, Tablet, [id number], Partial fill upon [...] provided increased discomfort related to nerves. 3Seeing [place] neurology and sleep. Given a trial of Tegretol 200 mg upto 2 tablets twice a day andadvised to continue with Lyrica 300 mg twice a day. Had some improvement of the facial pain with this regimen. 4Seeing [place] neurology and asleep. On 09/11/2018 started on [...]
--- OUTSIDE RECORDS SUMMARY | 2023-11-02 08:22 | XMS_ITS | Continuity of Care Document ---
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 Phone Contractor Krystal FERNANDEZ [id number] Date(s): [facility]/22[facility] - 03/04/[address] [address]- Attending Physician: Not on Staff, Attending MD Referring Physician: Contractor Krystal FERNANDEZ Allergies, Adverse Reactions, Alerts Substance Reaction Severity Status penicillin Unknown Active gabapentin Active hydrOXYzine hydrochloride Ac tive Lantus Active Ventolin HFA Active Flovent HFA Active traZODone Active ZyrTEC Active SEROquel Active Immunizations Given and Recorded Vaccine Date Status Refusal Reason SARS-CoV-2 (COVID-19) mRNA BNT-162b2 vac 11/07/20 Recorded [...] 02/16/16 Given tetanus/diphtheria/pertussis, acel(Tdap) 11/25/14 Given Medications amlodipine-valsartan 10 mg-320 mg oral tablet 1 tablet, By Mouth, Daily, Please discontinue amlodipine 10 mg and valsartan 320 mg separate scripts and appreciate this combo script. Thank you., # 30 tablet, 3 Refills, Maintenance, 03/03/21 17:24:00 EDT, Tablet, [facility]/pharmacy #[id number], Partial fill upo... Start Date: 03/03/21 Status: Ordered aspirin 81 mg oral delayed release tablet 81 mg, 1, tablet, By Mouth, Daily, # 90 tablet, Refills 0, Tot. Refills 0, Maintenance, 01/01/21 11:26:00 EDT, [id number] Partial fill upon patient request if the prescription is for a schedule II opioid drug... Start Date: 01/01/21 Status: Ordered aspirin 81 mg oral tablet 1 tablet = 81 mg, By Mouth, Daily, # 90 tablet, 3 Refills, Maintenance, 01/15/20 9:51:00 EDT, Tablet, [facility]/pharmacy #[id number], 184, cm, 01/15/20 9:11:00 EDT, [...] Need length 99 months Please send to [facility], 01/21/21 13:20:00 EDT, Supply Start Date: 01/21/21 Status: Ordered chlorthalidone 25 mg oral tablet 25 mg, 1, tablet, By Mouth, Daily, # 30 tablet, Refills 0, Tot. Refills 0, Maintenance, 03/03/21 17:24:00 EDT, Route to Pharmacy Electronically, [facility]/pharmacy #[id number], Partial fill upon patient request if the prescription is for a schedule II opioid drug... Start Date: 03/03/21 Status: Ordered Claritin 10 mg oral tablet 10 mg, 1, tablet, By Mouth, Daily, # 30 tablet, Refills 3, Tot. Refills 3, Maintenance, 01/29/21 9:13:00 EDT, Route to Pharmacy Electronically, [facility]/pharmacy #[id number], 184, cm, 01/29/21 9:06:00 EDT, [...] 0 Refills, Maintenance, 03/03/21 17:36:00 EDT, Cream[id number] Partial fill upon patient request if the prescription is for a schedule II opioid drug., 1 application Topically 3 ti... Start Date: 03/03/21 Status: Ordered cyanocobalamin 1000 mcg oral tablet 1,000 mcg, 1, tablet, By Mouth, Daily, for 90 days, # 90 tablet, Refills 11, Tot. Refills 11, Hard Stop 08/02/23 13:12:00 EST, 08/17/20 13:12:00 EST, [id number] 184, cm, 02/28/20 15:58:00 EDT, Height, 123.27,... Start Date: 08/17/20 Stop Date: 08/02/23 Status: Ordered cyanocobalamin 1000 mcg oral tablet 1,000 mcg, 1, tablet, By Mouth, Daily, # 90 tablet, Refills 11, Tot. Refills 11, Maintenance, 08/02/23 13:12:00 EST, [id number] 184, cm, 01/01/21 10:56:00 EDT, [...] DAY NEEDED Start Date: 02/28/20 Status: Ordered docusate sodium 100 mg oral tablet 1 tablet = 100 mg, By Mouth, 2 times a day, PRN for constipation, # 60 tablet, 5 Refills, Maintenance, 01/11/21 15:23:00 EDT, Tablet, [facility]/pharmacy #[id number], Partial fill upon patient request if the prescription is for a schedule II opioid drug., 184, cm,... Start Date: 01/11/21 Status: Ordered fluticasone 50 mcg/inh nasal spray See Instructions, USE 1 SPRAY IN EACH NOSTRIL EVERY MORNING, # 16 mL, 3 Refills, 01/29/21 9:11:00 EDT, [facility]/pharmacy #[id number], 30, USE 1 SPRAY [...] 19:31:42, Compound Start Date: 07/11/16 Status: Ordered Freestyle Lite Test Strips See Instructions, # 50 each, Refills 11, Tot. Refills 11, Maintenance, Use to test BS daily for DM,E11.65, 03/03/21 13:57:00 EDT, Compound, 184, cm, 03/03/21 13:17:00 EDT, Height, 123.27, kg, 06/25/19 13:22:00 EST, Dry Weight Start Date: 03/03/21 Status: Ordered glipiZIDE 5 mg oral tablet, extended release TAKE 1 TABLET BY MOUTH TWICE A DAY Start Date: 01/29/21 Status: Ordered lidocaine 5% topical ointment 1 application, Topically, 3 times a day, PRN Pain , Mild, # 100 Gm, 2 Refills, Maintenance, 02/10/21 13:09:00 EDT, Ointment, [facility]/pharmacy #[id number], Partial fill upon patient [...] upon p... Start Date: 03/03/21 Status: Ordered omega-3 polyunsaturated fatty acids ethyl [...] Refills, Maintenance, 02/24/21 9:28:00 EDT, EC Capsule, [id number], 184, cm, 02/03/21 10:57:00 EDT, Height, [...] [facility] [place], 01/21/21 13:20:00 EDT, Supply Start Date: 01/21/21 Status: Ordered sulindac 150 mg oral tablet See Instructions, TAKE 1 TABLET BY MOUTH TWICE A DAY NEEDED FOR PAIN, # 28 tablet, 0 Refills, Maintenance, [id number], 184, cm, 02/01/21 10:51:00 EDT, Height, 123.27, [...] Refills, Maintenance, 02/18/21 8:37:00 EDT, Tablet, [id number], Partial fill upon [...] provided increased discomfort related to nerves. 3Seeing [place] neurology and sleep. Given a trial of Tegretol 200 mg upto 2 tablets twice a day andadvised to continue with Lyrica 300 mg twice a day. Had some improvement of the facial pain with this regimen. 4Seeing [place] neurology and asleep. On 09/11/2018 started on [...]
--- OUTSIDE RECORDS SUMMARY | 2023-11-02 08:22 | XMS_ITS | Continuity of Care Document ---
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 Krystal FERNANDEZ Primary Care Physician Encounter [facility] R [id number] Date(s): 07/13/21 - 09/10/[address] [address]- Attending Physician: Quinten Alvarado MD Admitting Physician: Quinten Alvarado MD Referring Physician: Quinten Alvarado MD Allergies, Adverse Reactions, Alerts Substance Reaction Severity Status penicillin Unknown Active gabapentin Active hydrOXYzine hydrochloride Ac tive Lantus Active traZODone Active ZyrTEC Active SEROquel Active Flovent HFA Active Ventolin HFA Active Immunizations Given and Recorded [...] acel(Tdap) 11/25/14 Given 1Result Comment: DILUENT LOT#: [id number] EXP: 11/2022 MFG: FRESENSIUS Medications amitriptyline 100 mg oral tablet 1 tablet = 100 mg, By Mouth, Daily at bedtime, # 30 tablet, 3 Refills, Maintenance, 08/11/21 10:02:00 EST, Tablet, [facility]/pharmacy #[id number], Partial fill upon patient request if the prescription is for a schedule II opioid drug., 184, cm, 07/26/21 9:11:00 E... Start Date: 08/11/21 Stop Date: 12/09/21 Status: Ordered amlodipine-valsartan 10 mg-320 mg oral tablet 1 tablet, By Mouth, Daily, Please discontinue amlodipine 10 mg and valsartan 320 mg separate scripts and appreciate this combo script. Thank you., # 30 tablet, 3 Refills, Maintenance, 03/03/21 17:24:00 EDT, Tablet, [facility]/pharmacy #[id number], Partial fill upo... Start Date: 03/03/21 Status: Ordered aspirin 81 mg oral delayed release tablet 81 mg, 1, tablet, By Mouth, Daily, # 90 tablet, Refills 0, Tot. Refills 0, Maintenance, 01/01/21 11:26:00 EDT, Route to Pharmacy Electronically, [facility]/pharmacy #[id number], Partial fill upon patient request [...] 06/27/16 11:24:23,... Start Date: 06/27/16 Status: Ordered Bactrim DS 800 mg-160 mg oral tablet 1 tablet, By Mouth, 2 times a day, for 7 days, # 14 tablet, 0 Refills, Acute 09/14/21 9:39:00 EDT, 09/07/21 9:39:00 EDT, Tablet, [facility]/pharmacy #[id number], g., 1 tablet By Mouth 2 times a day,x7 days, 184, cm, 09/07/21 8:42:00 EDT, Height Start Date: 09/07/21 Stop Date: 09/14/21 Status: Ordered Blood Pressure Monitor See Instructions, [...] Need length 99 months Please send to [facility], 01/21/21 13:20:00 EDT, Supply Start Date: 01/21/21 Status: Ordered carbidopa-levodopa 25 mg-100 mg oral tablet 1 tablet, By Mouth, 3 times a day, Rx'd by Neurology at [facility] [place]/ Dr. Murphy, # 270 tablet, 0 Refills, Maintenance, 04/15/21 23:30:00 EDT, Tablet, Partial fill upon patient request if the prescription is for a schedule II opioid drug. Start Date: 04/15/21 Status: Ordered chlorthalidone 25 mg oral tablet 1, tablet, By Mouth, Daily, # 30 tablet, Refills 5, Route to Pharmacy Electronically, [id number], 184, cm, 03/30/21 16:08:00 EDT, Height, 123.27, kg, 06/25/19 13:22:00 EST, Dry Weight Start Date: 04/07/21 Status: Ordered Claritin 10 mg oral tablet 10 mg, 1, tablet, By Mouth, Daily, more sea necesario para alergia, # 30 tablet, Refills 5, Tot. Refills 5, Maintenance, 04/13/21 10:04:00 EDT, Route to Pharmacy Electronically, [facility]/pharmacy #[id number], 184, cm, 04/13/21 9:26:00 EDT, Height, 123.27, kg, 01... Start Date: 04/13/21 Status: Ordered clonazePAM 2 mg oral tablet See Instructions, 1 tablet by mouth only NEEDED for severe panic attack. Dispense: #20 tabs per 20d., # 20 tablet, 0 Refills, Maintenance, 08/18/21 15:21:00 EST, Tablet, [facility]/pharmacy #[id number], Partial fill upon patient request [...] Refills, Maintenance, 03/03/21 17:36:00 EDT, Cream, [facility]/pharmacy #[id number], Partial fill upon patient request if the prescription is for a schedule II opioid drug., 1 application Topically 3 ti... Start Date: 03/03/21 Status: Ordered cyanocobalamin 1000 mcg oral tablet 1,000 mcg, 1, tablet, By Mouth, Daily, # 90 tablet, Refills 11, Tot. Refills 11, Maintenance, 07/17/26 13:12:00 EST, Route to Pharmacy Electronically, [facility]/pharmacy #[id number], 184, cm, 07/26/21 9:11:00 EST, Height Start Date: 07/17/26 Stop Date: 07/01/29 Status: Ordered cyanocobalamin 1000 mcg oral tablet 1,000 mcg, 1, tablet, By Mouth, Daily, for 90 days, # 90 tablet, Refills 11, Tot. Refills 11, Hard Stop 07/17/26 13:12:00 EST, 08/02/23 13:12:00 EST, Route to Pharmacy Electronically, [facility]/pharmacy #[id number], 184, cm, 01/01/21 10:56:00 EDT, [...] Refills, Maintenance, 01/11/21 15:23:00 EDT, Tablet, [facility]/pharmacy #[id number], Partial fill upon patient request if the prescription is for a schedule II opioid drug., 184, cm,... Start Date: 01/11/21 Status: Ordered escitalopram 20 mg oral tablet 1 tablet = 20 mg, By Mouth, Daily, # 30 tablet, 3 Refills, Maintenance, 07/13/21 12:26:00 EST, Tablet, [facility]/pharmacy #[id number], d/c citalopram 10 mg, 184, cm, 06/14/21 11:01:00 EST, Height Start Date: 07/13/21 Status: Ordered fluticasone 50 mcg/inh nasal spray See Instructions, USE 1 SPRAY IN EACH NOSTRIL EVERY MORNING, # 16 mL, 3 Refills, 01/29/21 9:11:00 EDT, [facility]/pharmacy #[id number], 30, USE 1 SPRAY IN [...] Refills, Maintenance, 02/10/21 13:09:00 EDT, Ointment, [facility]/pharmacy #[id number], Partial fill upon patient request if the prescription is for a schedule II opioid drug., 1 application Top... Start Date: 02/10/21 Status: Ordered magnesium oxide 400 mg oral tablet 1 tablet = 400 mg, By Mouth, Daily, [facility] [place]/ Dr. Murphy, 0 Refills, Maintenance, 04/15/21 23:30:00 [...] Refills, Maintenance, 03/03/21 17:29:00 EDT, Tablet, [facility]/pharmacy #[id number], Partial fill upon p... Start Date: 03/03/21 Status: Ordered omega-3 polyunsaturated fatty acids ethyl esters 1000 mg oral capsule 1 capsule = 1,000 mg, By Mouth, 2 times a day, # 60 capsule, 11 Refills, Maintenance, 12/27/21 11:25:00 EDT, Capsule, [facility]/pharmacy #[id number], 1 capsule By Mouth 2 times a day,x30 days, 184, cm, 07/26/21 9:11:00 EST, Height Start Date: 12/27/21 Stop Date: 12/22/22 Status: Ordered omega-3 polyunsaturated fatty acids ethyl esters 1000 mg oral capsule 1 capsule = 1,000 mg, By Mouth, 2 times a day, for 30 days, # 60 capsule, 11 Refills, Hard Stop 12/27/21 11:25:00 EDT, 01/01/21 11:25:00 EDT, Capsule, [id number], 184, cm, 01/01/21 10:56:00 EDT, Height, 123.27, kg, 06/25/19 13:22:00 EST, Dry W... Start Date: 01/01/21 Stop Date: 12/27/21 Status: Ordered omeprazole 20 mg oral enteric coated capsule 1 capsule, By Mouth, Daily, # 90 capsule, 0 Refills, [id number], 184, cm, 06/14/21 11:01:00 EST, Height, 123.27, [...] Maintenance, DX: M51. 26 please send to [facility] [place], 01/21/21 13:20:00 EDT, Supply Start Date: 01/21/21 Status: Ordered sulindac 150 mg oral tablet See Instructions, TAKE 1 TABLET BY MOUTH TWICE A DAY NEEDED FOR PAIN, # 28 tablet, 0 Refills, Maintenance, [id number], 184, cm, 02/01/21 10:51:00 EDT, Height, 123.27, kg, 06/25/19 13:22:00 EST, Dry Weight Start Date: 02/01/21 Status: Ordered Tylenol Extra Strength 500 mg oral tablet 2 tablet = 1,000 mg, By Mouth, 3 times a day, PRN as needed for pain, # 100 tablet, 5 Refills, Maintenance, 07/26/21 9:43:00 EST, Tablet, [id number], Partial fill upon patient request if the prescription is for a schedule II opioid drug., 184,... Start Date: 07/26/21 Status: Ordered Problem List Condition Effective Dates [...] Active KERMIT (obstructive sleep apnea ): bipap 19 2 liters oxygen(Confirmed) Active Onychomycosis of toenail(Confirmed) [...]
--- OUTSIDE RECORDS SUMMARY | 2023-11-02 08:22 | XMS_ITS | Continuity of Care Document ---
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 Name Role Phone Ivone Oneil MD Primary Care Physician [phone] Encounter [facility] Date(s): 01/26/22 - 02/25/[address] [address]- Attending Physician: AdmCristian freeman Admitting Physician: AdmtrCristian Referring Physician: Admtr ArLisa Allergies, Adverse Reactions, Alerts Substance Reaction Severity [...] vaccine, inactivated 06/17/19 Recorded zoster vaccine, inactivated 6/9/18 Recorded Influenza Vaccine (oldterm) 02/17/17 Recorded pneumococcal 23-valent vaccine 02/16/16 Given tetanus/diphtheria/pertussis, acel(Tdap) 11/25/14 Given 1Result Comment: DILUENT LOT#: [id number] EXP: 11/2022 MFG: FRESENSIUS Medications amitriptyline 100 mg oral tablet 1 tablet = 100 mg, By Mouth, Daily at bedtime, # 30 tablet, 3 Refills, Maintenance, 12/27/21 12:09:00 EDT, Tablet, [facility]/pharmacy #[id number], Partial fill upon patient request if [...] 03/03/21 17:24:00 EDT, Tablet, [facility]/pharmacy #[id number], Partial fill upo... Start Date: 03/03/21 [...] 1 Refills, Maintenance, 11/29/21 14:23:00 EDT, Tablet, [facility]/pharmacy #[id number], Partial fill upon patient request if [...] Need length 99 months Please send to [facility], 01/21/21 13:20:00 EDT, Supply Start [...] 08/18/21 15:21:00 EST, Tablet, [facility]/pharmacy #[id number], Partial fill upon patient request if the [...] 07/17/26 13:12:00 EST, [id number], cm, 07/26/21 9:11:00 EST, Height Start Date: 07/17/26 Stop Date: 07/01/29 Status: Ordered cyanocobalamin 1000 mcg oral tablet 1,000 mcg, 1, tablet, By Mouth, Daily, for 90 days, # 90 tablet, Refills 11, Tot. Refills 11, Hard Stop 07/17/26 13:12:00 EST, 08/02/23 13:12:00 EST, Route to Pharmacy Electronically, [facility]/pharmacy #[id number], 184, cm, 01/01/21 10:56:00 EDT, Height, [...] 5 Refills, Maintenance, 10/07/21 20:16:00 EDT, Tablet, [facility]/pharmacy #[id number], Partial fill upon patient request if the [...] 1, NEEDED FOR ALLERGIES, Route to PharmacyElectronically, [id number], 184, cm, 10/18/21 13:37:00 EDT, Height Start Date: 10/22/21 Status: Ordered magnesium oxide 400 mg oral tablet 1 tablet = 400 mg, By Mouth, Daily, Rx'd by Neurology at [facility] [place]/ Dr. Murphy, 0 Refills, Maintenance, 04/15/21 23:30:00 [...] 11:13:00 EST, 10/28/21 11:13:00 EDT, REC Powder, [facility]/pharmacy #[id number], Partial fill upon patient request if [...] Maintenance, 09/16/2211:15:00 EDT, Tablet, [facility]/pharmacy #[id number], Partial f... Start Date: 09/15/21 Status: [...] SMOKING CESSATION, # 40 gum, 0 Refills, [facility], 184, cm, 12/27/21 11:50:00 EDT, Height Start Date: 02/01/22 Status: Ordered omega-3 polyunsaturated fatty acids ethyl esters 1000 mg oral capsule 1 capsule, By Mouth, 2 times a day, # 180 capsule, 3 Refills, [facility], 90, TAKE 1 CAPSULE BY MOUTH TWICE A DAY, 183, cm, 02/08/22 6:42:00 EDT, Height, 123.2, kg, 02/07/22 12:47:00 EDT, Dry Weight Start Date: 02/09/22 Status: Ordered omeprazole 20 mg oral enteric coated capsule 1 capsule, By Mouth, Daily, # 90 capsule, 0 Refills, Maintenance, 02/14/22 21:23:00 EDT, [facility], 183, cm, 02/08/22 6:42:00 EDT, Height, 123.2, [...] 0 Refills, Maintenance, 06/29/21 15:41:00 EST, Capsule, [facility]/pharmacy #[id number], Partial fill upon patient request if the prescription is for a schedule II o... Start Date: 06/29/21 Stop Date: 07/29/21 Status: Ordered primidone 50 mg oral tablet 100 mg, 2, tablet, By Mouth, 3 times a day, [facility] Dr. [facility], Refills 0, Maintenance, [...] Maintenance, DX: M51. 26 please send to [facility], 01/21/21 13:20:00 EDT, Supply Start Date: 01/21/21 Status: Ordered Symbicort 160mcg/4.5mcg Inhaler 2, puffs, Inhalation, 2 times a day, # 6 Gm, Refills 0, Tot. Refills 0, Maintenance, 12/27/21 12:43:00 EDT, Aerosol, Route to Pharmacy Electronically, [id number], [id number], 184, cm, 12/27/21 11:50:00 EDT, Height [...] provided increased discomfort related to nerves. 3Seeing [place] neurology and sleep. Given a trial of Tegretol 200 mg upto 2 tablets twice a day andadvised to continue with Lyrica 300 mg twice a day. Had some improvement of the facial pain with this regimen. 4Seeing [place] neurology and asleep. On 09/11/2018 started on [...] Team Personnel Name: Ivone Oneil MD Address: [address] [place] [id number]
--- OUTSIDE RECORDS SUMMARY | 2023-11-02 08:22 | XMS_ITS | Continuity of Care Document ---
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 Driver Name Role Phone Dayo Castano MD Primary Care Physician Encounter [facility] Date(s): 05/04/23 - 06/03/[address] [address]- Allergies, Adverse Reactions, Alerts Substance Reaction Severity [...] influenza virus vaccine, inactivated 04/16/15 Give n [id number] 12y+ bivalent booster vax 02/21/23 Given SARS-CoV-2 (COVID-19) mRNA BNT-162b2 vac 1 06/01/21 Given SARS-CoV-2 (COVID-19) mRNA BNT-162b2 vac 11/07/20 Recorded SARS-CoV-2 (COVID-19) mRNA BNT-162b2 vac 10/17/20 Recorded zoster vaccine, inactivated 06/18/19 Recorded zoster vaccine, inactivated 06/17/19 Recorded zoster vaccine, inactivated 11/25/17 Recorded Influenza Vaccine (oldterm) 02/17/17 Recorded pneumococcal 23-valent vaccine 02/16/16 Given tetanus/diphtheria/pertussis, acel(Tdap) 11/25/14 Given 1Result Comment: DILUENT LOT#: [id number] EXP: 11/2022 MFG: FRESENSIUS Medications Albuterol (Eqv-ProAir [...] Mouth, Daily at bedtime, Rx'd by neurology ([facility]), # 30 tablet, 0 Refills, Maintenance, [...] 3 Refills, Maintenance, 04/04/23 8:44:00 EDT, Tablet, [facility]/pharmacy #[id number], Partial fill upon patient request [...] Need length 99 months Please send to [facility], 01/21/21 13:20:00 EDT, Supply Start Date: 01/21/21 Status: Ordered carbidopa-levodopa 25 mg-100 mg oral tablet 1 tablet, By Mouth, 2 times a day, Rx'd by neurology at [facility], # 60 tablet, 0 Refills, [...] 04/04/23 8:45:00 EDT, Route to Pharmacy Electronically, [facility]/pharmacy #[id number], Partial fill upon patient request [...] 04/04/23 8:46:00 EDT, Route to Pharmacy Electronically, [facility]/pharmacy #[id number], 183, cm, 04/04/23 8:24:00 EDT, [...] Gm, 5 Refills, Maintenance, 01/26/23 9:21:00 EDT, [facility]/pharmacy #[id number], 30, APPLY TOPICALLY TO AFFECTED ARE TWICEA DAY NEEDED FOR PAIN, 183, cm, 01/26/23 9:04:00... Start Date: 01/26/23 Status: Ordered diclofenac sodium 75 mg oral delayed release tablet 1 tablet = 75 mg, By Mouth, 2 times a day, PRN Pain , Severe, STOP DICLOFENAC GEL, # 60 tablet, 0 Refills, Maintenance, 05/19/23 12:59:00 EST, EC Tablet, [facility]/pharmacy #[id number], Partial fill upon patientrequest if [...] 0 Refills, Maintenance, 05/05/23 9:15:00 EST, Tablet, [facility]/pharmacy #[id number], Partial fill upon patient request [...] Daily at bedtime, Rx'd by neurology at [facility], 0 Refills, Maintenance, 10/04/22 8:24:00 EDT, Capsule, Partial fill upon patient request if the prescription is for a schedule II opioid drug. Start Date: 10/04/22 Status: Ordered loratadine 10 mg oral tablet 1, tablet, By Mouth, Daily, PRN, # 90 tablet, Refills 3, Tot. Refills 3, NEEDED FOR ALLERGIES, 04/04/23 8:42:00 EDT, Route to Pharmacy Electronically, [facility]/pharmacy #[id number], 183, cm, 04/04/23 8:24:00EDT, Height, [...] SMOKING CESSATION, # 40 gum, 0 Refills, [facility] STORE [id number], 184, cm, 12/27/21 11:50:00 EDT, Height Start [...] Stop 03/29/24 8:46:00 EDT, 04/04/23 8:46:00 EDT, [facility]/pharmacy #[id number], 1 capsule By Mouth 2 times a day,x90 days, 183, cm, 04/04/23 8:24:00 EDT, Height, 123.2, kg, 01/18... Start Date: 04/04/23 Stop Date: 03/29/24 Status: Ordered omeprazole 20 mg oral enteric coated capsule 1 capsule, By Mouth, Daily, # 90 capsule, 3 Refills, Maintenance, 04/04/23 8:46:00 EDT, [facility]/pharmacy #[id number], 183, cm, 04/04/23 8:24:00 EDT, [...] times a day, Rx'd by neurology at [facility], # 60 capsule, 0 Refills, Maintenance, 10/04/22 8:24:00 EDT, Capsule, Partial fill upon patient request if the prescription is for a schedule II opioid drug. Start Date: 10/04/22 Status: Ordered primidone 50 mg oral tablet 100 mg, 2, tablet, By Mouth, 2 times a day, rx'd by neurology at [facility], # 120 tablet, Refills 0, Maintenance, [...] times a day, Rx'd by neurology at [facility], # 270 tablet, 0 Refills, [...] Maintenance, DX: M51. 26 please send to [facility], 08/08/22 15:41:00 EST, Supply Start Date: 08/08/22 Status: Ordered Symbicort 160mcg/4.5mcg Inhaler 2, puffs, Inhalation, 2 times a day, # 6 Gm, Refills 11, Tot. Refills 11, Maintenance, 04/04/23 8:44:00 EDT, Aerosol, Route to Pharmacy Electronically, [id number], [facility]/pharmacy #[id number], 183, cm, 04/04/23 8:24:00 EDT, [...] 11 Refills, Maintenance, 04/04/23 8:43:00 EDT, Tablet, [facility]/pharmacy #[id number], Partial fill upon patient request [...] provided increased discomfort related to nerves. 3Seeing [place] neurology and sleep. Given a trial of [...] Primary Care Member Role: PCP Address: Address: [address] [place] [address]- Care Team Related Persons Name: JARROD BRADFORD Address: home [address] [place] [address] Name: LOLA BRADFORD Address: home [address] [place] [address] Name: GOLDIE LERMA Address: [place] [address] Name: LERMA, OLIMPIA Address: [place] [address] Name: KADE LERMA Address: [address] [place] [address] Name: KADE LERMA Address: home [address] [place] [address]
--- OUTSIDE RECORDS SUMMARY | 2023-11-02 08:23 | XMS_ITS | Continuity of Care Document ---
Author Organization [facility] Address [address] [place] [address]- Care Team Providers Care Carpenter Name Role Phone Ivone Oneil MD Primary Care Physician [phone] Encounter [facility] Date(s): 11/23/21 - 12/23/[address] [address]- Allergies, Adverse Reactions, Alerts Substance Reaction Severity [...] acel(Tdap) 11/25/14 Given 1Result Comment: DILUENT LOT#: [id number] EXP: 11/2022 MFG: FRESENSIUS Medications amitriptyline 100 mg oral tablet 1 tablet = 100 mg, By Mouth, Daily at bedtime, # 30 tablet, 3 Refills, Maintenance, 08/11/21 10:02:00 EST, Tablet, [id number], Partial fill upon [...] 3 Refills, Maintenance, 03/03/21 17:24:00 EDT, Tablet, [id number], Partial fill upo... Start Date: 03/03/21 Status: Ordered aspirin 81 mg oral delayed release tablet 81 mg, 1, tablet, By Mouth, Daily, # 90 tablet, Refills 0, Tot. Refills 0, Maintenance, 01/01/21 11:26:00 EDT, Route to Pharmacy Electronically, [id number], Partial fill upon patient request if the prescription is for a schedule II opioid drug... Start Date: 01/01/21 Status: Ordered atorvastatin 20 mg oral tablet 1 tablet = 20 mg, By Mouth, Daily, # 90 tablet, 1 Refills, Maintenance, 11/29/21 14:23:00 EDT, Tablet, [id number], Partial fill upon [...] Need length 99 months Please send to [facility], 01/21/21 13:20:00 EDT, Supply Start Date: 01/21/21 Status: Ordered carbidopa-levodopa 25 mg-100 mg oral tablet 1 tablet, By Mouth, 3 times a day, [facility], # 270 tablet, 0 Refills, Maintenance, 04/15/21 23:30:00 EDT, Tablet, Partial fill upon patient request if the prescription is for a schedule II opioid drug. Start Date: 04/15/21 Status: Ordered chlorthalidone 25 mg oral tablet 1, tablet, By Mouth, Daily, # 30 tablet, Refills 5, Tot. Refills 5, 09/28/21 8:08:00 EDT, Route to Pharmacy Electronically, [facility]/pharmacy #[id number], 184, cm, 09/15/21 9:12:00 EDT, Height Start Date: 09/28/21 Status: Ordered clonazePAM 2 mg oral tablet See Instructions, 1 tablet by mouth only NEEDED for severe panic attack. Dispense: #20 tabs per 20d., # 20 tablet, 0 Refills, Maintenance, 08/18/21 15:21:00 EST, Tablet, [facility]/pharmacy #[id number], Partial fill upon patient request [...] Itch, # 60 Gm, 0 Refills, Maintenance, 10/07/21 20:16:00 EDT, Cream, [facility]/pharmacy #[id number], Partial fill upon patient request if the prescription is for a schedule II opioid drug., 1 application Topically 3 ti... Start Date: 10/07/21 Status: Ordered cyanocobalamin 1000 mcg oral tablet 1,000 mcg, 1, tablet, By Mouth, Daily, # 90 tablet, Refills 11, Tot. Refills 11, Maintenance, 07/17/26 13:12:00 EST, Route to Pharmacy Electronically, [facility]/pharmacy #[id number], 184, cm, 07/26/21 9:11:00 EST, Height Start Date: 07/17/26 Stop Date: 07/01/29 Status: Ordered cyanocobalamin 1000 mcg oral tablet 1,000 mcg, 1, tablet, By Mouth, Daily, for 90 days, # 90 tablet, Refills 11, Tot. Refills 11, Hard Stop 07/17/26 13:12:00 EST, 08/02/23 13:12:00 EST, Route to Pharmacy Electronically, [facility]/pharmacy #[id number], 184, cm, 01/01/21 10:56:00 EDT, [...] 02/19/20 Status: Ordered diclofenac 1% topical gel 1 application, Topically, 4 times a day, apply to knee four times a day as needed for knee pain, # 100 Gm, 0 Refills, Maintenance, 12/09/21 15:41:00 EDT, Gel, [id number], Partial fill upon patient request if the prescription is for a schedule... Start Date: 12/09/21 Stop Date: 12/16/21 Status: Ordered diclofenac 1% topical gel 1 application, Topically, 4 times a day, PRN Pain , Moderate, # 100 Gm, 1 Refills, Maintenance, 11/12/21 8:44:00 EDT, Gel, [id number], Partial fill upon patient request if the prescription isfor a schedule II opioid drug., 184, cm, 11/05/21 9... Start Date: 11/12/21 Status: Ordered docusate sodium 100 mg oral tablet 1 tablet = 100 mg, By Mouth, 2 times a day, PRN for constipation, # 60 tablet, 5 Refills, Maintenance, 10/07/21 20:16:00 EDT, Tablet, [id number], Partial fill upon patient request if the prescription is for a schedule II opioid drug., 184, cm,... Start Date: 10/07/21 Status: Ordered escitalopram 20 mg oral tablet 1 tablet, By Mouth, Daily, # 90 tablet, 1 Refills, [id number], 184, cm, 11/15/21 9:55:00 EDT, Height Start Date: 12/06/21 Status: Ordered fluticasone 50 mcg/inh nasal spray See Instructions, USE 1 SPRAY IN EACH NOSTRIL EVERY MORNING, # 16 mL, 3 Refills, 01/29/21 9:11:00 EDT, [facility]/pharmacy #[id number], 30, USE 1 SPRAY IN [...] Mild, # 100 Gm, 2 Refills, Maintenance, 11/02/21 14:30:00 EDT, Ointment, [facility]/pharmacy #[id number], Partial fill upon patient request if the prescription is for a schedule II opioid drug., 1 application Top... Start Date: 11/02/21 Status: Ordered loratadine 10 mg oral tablet 1, tablet, By Mouth, Daily, PRN, # 90 tablet, Refills 1, NEEDED FOR ALLERGIES, Route to PharmacyElectronically, [facility] ST[id number], 184, cm, 10/18/21 13:37:00 EDT, Height Start Date: 10/22/21 Status: Ordered magnesium oxide 400 mg oral tablet 1 tablet = 400 mg, By Mouth, Daily, [facility] Dr. Murphy, 0 Refills, Maintenance, 04/15/21 23:30:00 [...] EST, 10/28/21 11:13:00 EDT, REC Powder, [facility]/pharmacy #[id number], Partial fill upon patient request [...] 3 Refills, Maintenance, 09/16/2211:15:00 EDT, Tablet, [facility]/pharmacy #[id number], Partial f... Start Date: 09/15/21 Status: Ordered omega-3 polyunsaturated fatty acids ethyl esters 1000 mg oral capsule 1 capsule = 1,000 mg, By Mouth, 2 times a day, # 60 capsule, 11 Refills, Maintenance, 12/27/21 11:25:00 EDT, Capsule, [facility]/pharmacy #[id number], 1 capsule By Mouth 2 times a day,x30 days, 184, cm, 07/26/21 9:11:00 EST, Height Start Date: 12/27/21 Stop Date: 12/22/22 Status: Ordered omega-3 polyunsaturated fatty acids ethyl esters 1000 mg oral capsule 1 capsule = 1,000 mg, By Mouth, 2 times a day, for 30 days, # 60 capsule, 11 Refills, Hard Stop 12/27/21 11:25:00 EDT, 01/01/21 11:25:00 EDT, Capsule, [facility]/pharmacy #[id number], 184, cm, 01/01/21 10:56:00 EDT, Height, 123.27, kg, 06/25/19 13:22:00 EST, Dry W... Start Date: 01/01/21 Stop Date: 12/27/21 Status: Ordered omeprazole 20 mg oral enteric coated capsule 1 capsule, By Mouth, Daily, # 90 capsule, 0 Refills, 12/07/21 20:40:00 EDT, [id number], 184, cm, 11/15/21 9:55:00 EDT, Height Start Date: 12/07/21 Status: Ordered pregabalin 300 mg oral capsule [...] Maintenance, DX: M51. 26 please send to [facility], 01/21/21 13:20:00 EDT, Supply Start Date: 01/21/21 Status: Ordered sulindac 150 mg oral tablet See Instructions, TAKE 1 TABLET BY MOUTH TWICE A DAY NEEDED FOR PAIN, # 28 tablet, 0 Refills, Maintenance, [id number], 184, cm, 02/01/21 10:51:00 EDT, Height, 123.27, kg, 06/25/19 13:22:00 EST, Dry Weight Start Date: 02/01/21 Status: Ordered Tylenol Extra Strength 500 mg oral tablet 2 tablet = 1,000 mg, By Mouth, 3 times a day, PRN as needed for pain, # 100 tablet, 5 Refills, Maintenance, 12/07/21 10:44:00 EDT, Tablet, [facility]/pharmacy #[id number], Partial fill upon patient request if theprescription [...] ): bipap 19/14 2 liters oxygen(Confirmed) Active Onychomycosis of toenail(Confirmed) [...] provided increased discomfort related to nerves. 3Seeing [place] neurology and sleep. Given a trial of Tegretol 200 mg upto 2 tablets twice a day andadvised to continue with Lyrica 300 mg twice a day. Had some improvement of the facial pain with this regimen. 4Seeing [place] neurology and asleep. On 09/11/2018 started on [...]
--- OUTSIDE RECORDS SUMMARY | 2023-11-02 08:23 | XMS_ITS | Continuity of Care Document ---
Author Organization [facility] Address [address] [place] [address]- Care Team Providers Care Shorthand Teacher Name Role Phone Ivone Oneil MD Primary Care Physician Encounter [facility] Date(s): 12/29/21 - 01/28/[address] [address]- Allergies, Adverse Reactions, Alerts Substance Reaction Severity [...] acel(Tdap) 11/25/14 Given 1Result Comment: DILUENT LOT#: [id number] EXP: 11/2022 MFG: FRESENSIUS Medications amitriptyline 100 mg oral tablet 1 tablet = 100 mg, By Mouth, Daily at bedtime, # 30 tablet, 3 Refills, Maintenance, 12/27/21 12:09:00 EDT, Tablet, [facility]/pharmacy #[id number], Partial fill upon patient request if [...] 3 Refills, Maintenance, 03/03/21 17:24:00 EDT, Tablet, [facility]/pharmacy #[id number], Partial fill upo... Start Date: 03/03/21 [...] Need length 99 months Please send to [place], 01/21/21 13:20:00 EDT, Supply Start Date: 01/21/21 Status: Ordered chlorthalidone 25 mg oral tablet 1, tablet, By Mouth, Daily, # 30 tablet, Refills 5, Tot. Refills 5, 09/28/21 8:08:00 EDT, Route to Pharmacy Electronically, [facility]/pharmacy #[id number], 184, cm, 09/15/21 9:12:00 EDT, Height Start Date: 09/28/21 Status: Ordered clonazePAM 2 mg oral tablet See Instructions, 1 tablet by mouth only NEEDED for severe panic attack. Dispense: #20 tabs per 20d., # 20 tablet, 0 Refills, Maintenance, 08/18/21 15:21:00 EST, Tablet, [facility]/pharmacy #[id number], Partial fill upon patient request if [...] 07/17/26 13:12:00 EST, Route to Pharmacy Electronically, [facility]/pharmacy #[id number], 184, cm, 07/26/21 9:11:00 EST, Height Start Date: 07/17/26 Stop Date: 07/01/29 Status: Ordered cyanocobalamin 1000 mcg oral tablet 1,000 mcg, 1, tablet, By Mouth, Daily, for 90 days, # 90 tablet, Refills 11, Tot. Refills 11, Hard Stop 07/17/26 13:12:00 EST, 08/02/23 13:12:00 EST, Route to Pharmacy Electronically, [facility]/pharmacy #[id number], 184, cm, 01/01/21 10:56:00 EDT, Height, [...] 0 Refills, Maintenance, 12/09/21 15:41:00 EDT, Gel, [facility]/pharmacy #[id number], Partial fill upon patient request if the prescription is for a schedule... Start Date: 12/09/21 Stop Date: 12/16/21 Status: Ordered diclofenac 1% topical gel 1 application, Topically, 4 times a day, PRN Pain , Moderate, # 100 Gm, 1 Refills, Maintenance, 11/12/21 8:44:00 EDT, Gel, [facility]/pharmacy #[id number], Partial fill upon patient request if the prescription isfor a schedule II opioid drug., 184, cm, 11/05/21 9... Start Date: 11/12/21 Status: Ordered docusate sodium 100 mg oral tablet 1 tablet = 100 mg, By Mouth, 2 times a day, PRN for constipation, # 60 tablet, 5 Refills, Maintenance, 10/07/21 20:16:00 EDT, Tablet, [facility]/pharmacy #[id number], Partial fill upon patient request if [...] 1, NEEDED FOR ALLERGIES, Route to PharmacyElectronically, [id number], 184, cm, 10/18/21 13:37:00 EDT, Height Start Date: 10/22/21 Status: Ordered magnesium oxide 400 mg oral tablet 1 tablet = 400 mg, By Mouth, Daily, Rx'd by Neurology at [facility]/ Dr. Murphy, 0 Refills, Maintenance, 04/15/21 23:30:00 [...] 11:13:00 EST, 10/28/21 11:13:00 EDT, REC Powder, [facility]/pharmacy #[id number], Partial fill upon patient request if [...] tablet, 3 Refills, Maintenance, 09/16/2211:15:00 EDT, Tablet, [facility]/pharmacy #[id number], Partial f... Start Date: 09/15/21 Status: Ordered omega-3 polyunsaturated fatty acids ethyl esters 1000 mg oral capsule 1 capsule = 1,000 mg, By Mouth, 2 times a day, # 60 capsule, 11 Refills, Maintenance, 12/27/21 11:25:00 EDT, Capsule, [facility]/pharmacy #[id number], 1 capsule By Mouth 2 times a day,x30 days, 184, cm, 07/26/21 9:11:00 EST, Height Start Date: 12/27/21 Stop Date: 12/22/22 Status: Ordered omeprazole 20 mg oral enteric coated capsule 1 capsule, By Mouth, Daily, # 90 capsule, 0 Refills, 12/07/21 20:40:00 EDT, [id number], 184, cm, 11/15/21 9:55:00 EDT, Height Start Date: 12/07/21 Status: Ordered PAP Supplies - Mask, Tubing, [...] Maintenance, DX: M51. 26 please send to [facility], 01/21/21 13:20:00 EDT, Supply Start Date: 01/21/21 Status: Ordered Symbicort 160mcg/4.5mcg Inhaler 2, puffs, Inhalation, 2 times a day, # 6 Gm, Refills 0, Tot. Refills 0, Maintenance, 12/27/21 12:43:00 EDT, Aerosol, Route to Pharmacy Electronically, [id number], [id number], 184, cm, 12/27/21 11:50:00 EDT, [...] provided increased discomfort related to nerves. 3Seeing [place] neurology and sleep. Given a trial of Tegretol 200 mg upto 2 tablets twice a day andadvised to continue with Lyrica 300 mg twice a day. Had some improvement of the facial pain with this regimen. 4Seeing [place] neurology and asleep. On 09/11/2018 started on [...]
--- OUTSIDE RECORDS SUMMARY | 2023-11-02 08:23 | XMS_ITS | Continuity of Care Document ---
Author Organization [facility] Address [address] [place] [address]- Care Team Providers Care Construction Technician Name Role Phone Dayo Castano DO Primary Care Physician Encounter [facility] Date(s): 01/10/23 - 02/09/[address] [address]- Allergies, Adverse Reactions, Alerts Substance Reaction Severity [...] acel(Tdap) 11/25/14 Given 1Result Comment: DILUENT LOT#: [id number] EXP: 11/2022 MFG: FRESENSIUS Medications Albuterol (Eqv-ProAir HFA) 90 mcg/inh inhalation aerosol 2 puffs, Inhalation, Every 6 hours, please give pt whatver is covered by his insrance use with spacer chamber, # 18 Gm, 5 Refills, Maintenance, 01/26/23 9:27:00 EDT, [facility]/pharmacy #[id number], Partial fill upon patient request if the prescription is for a... Start Date: 01/26/23 Status: Ordered amitriptyline 100 mg oral tablet 1 tablet = 100 mg, By Mouth, Daily at bedtime, Rx'd by neurology (Shayna), # 30 tablet, 0 Refills, Maintenance, 12/08/22 15:04:00 EDT, Tablet, Partial fill upon patient request if the prescription is for a schedule II opioid drug. Start Date: 12/08/22 Status: Ordered Aripiprazole 2 mg, Rx'd by ANJEL Bera, Refills 0, Maintenance, 10/04/22 8:25:00 EDT, Partial fill upon patient request if the prescription is for a schedule II opioid drug. Start Date: 10/04/22 Status: Ordered Aspirin Low Dose 81 mg oral delayed release tablet 1 tablet, By Mouth, Daily, # 90 tablet, 1 Refills, Maintenance, 11/28/22 12:36:00 EDT, [facility]/pharmacy#[id number], 183, cm, 11/10/22 8:32:00 EDT, Height, 123.2, kg, 02/07/22 12:47:00 EDT, Dry Weight Start Date: 11/28/22 Status: Ordered atorvastatin 20 mg oral tablet 1 tablet = 20 mg, By Mouth, Daily, # 90 tablet, 1 Refills, Maintenance, 11/17/22 10:19:00 EDT, Tablet, [facility]/pharmacy #[id number], Partial fill upon patient request [...] Need length 99 months Please send to [facility], 01/21/21 13:20:00 EDT, Supply Start Date: 01/21/21 Status: Ordered carbidopa-levodopa 25 mg-100 mg oral tablet 1 tablet, By Mouth, 2 times a day, Rx'd by neurology at [facility], # 60 tablet, 0 Refills, Maintenance, 10/04/22 8:23:00 EDT, Tablet, Partial fill upon patient request if the prescription is for a schedule II opioid drug. Start Date: 10/04/22 Status: Ordered chlorthalidone 25 mg oral tablet 25 mg, 1, tablet, By Mouth, Daily, # 30 tablet, Refills 5, Tot. Refills 5, Maintenance, 11/08/22 8:09:00 EDT, Route to Pharmacy Electronically, [facility]/pharmacy #[id number], Partial fill upon patient request if the [...] 07/01/29 13:12:00 EST, Route to Pharmacy Electronically, [facility]/pharmacy #[id number], 183, cm, 08/22/22 8:28:00 EST,Height, [...] Gm, 5 Refills, Maintenance, 01/26/23 9:21:00 EDT, [facility]/pharmacy #[id number], 30, APPLY TOPICALLY TO AFFECTED ARE TWICEA DAY NEEDED FOR PAIN, 183, cm, 01/26/23 9:04:00... Start Date: 01/26/23 Status: Ordered doxycycline hyclate 100 mg oral tablet 1 tablet = 100 mg, By Mouth, 2 times a day, # 14 tablet, 0 Refills, Maintenance, 12/03/22 9:09:00 EDT, Tablet, [facility]/pharmacy #[id number], Partial fill upon patient request [...] Daily at bedtime, Rx'd by neurology at [facility], 0 Refills, Maintenance, 10/04/22 8:24:00 EDT, Capsule, Partial fill upon patient request if the prescription is for a schedule II opioid drug. Start Date: 10/04/22 Status: Ordered levocetirizine 5 mg oral tablet 1 tablet = 5 mg, By Mouth, Daily in AM, # 30 tablet, 5 Refills, Maintenance, 11/17/22 10:19:00 EDT,Tablet, [facility]/pharmacy #[id number], Label in georgian, cetrizine not effective, 1 tablet By Mouth Daily in AM, 183, cm, 11/10/22 8:32:00 EDT, Height, 123.2, kg,... Start Date: 11/17/22 Status: Ordered loratadine 10 mg oral tablet 1, tablet, By Mouth, Daily, PRN, # 90 tablet, Refills 1, NEEDED FOR ALLERGIES, Route to PharmacyElectronically, [id number], 184, cm, 10/18/21 13:37:00 EDT, Height Start [...] SMOKING CESSATION, # 40 gum, 0 Refills, [id number], 184, cm, 12/27/21 11:50:00 EDT, Height Start [...] # 180 capsule, 3 Refills, [id number], 90, TAKE 1 CAPSULE BY MOUTH TWICE A DAY, 183, cm, 02/08/22 6:42:00 EDT, Height, 123.2, kg, 02/07/22 12:47:00 EDT, Dry Weight Start Date: 02/09/22 Status: Ordered omeprazole 20 mg oral enteric coated capsule 1 capsule, By Mouth, Daily, # 90 capsule, 0 Refills, Maintenance, 11/24/22 10:47:00 EDT, [facility]/pharmacy #[id number], 183, cm, 11/10/22 8:32:00 EDT, Height, 123.2, kg, 02/07/22 12:47:00 EDT, Dry Weight Start Date: 11/24/22 Status: Ordered One Touch Ultra 2 Glucose [...] Gm, 1 Refills, Maintenance, 08/31/22 9:06:00 EDT, [facility]/pharmacy #[id number], 14,DISSOLVE 17 GRAMS IN WATER & DRINK ONCE A DAY UNTIL BM,... Start Date: 08/31/22 Status: Ordered pregabalin 300 mg oral capsule 1 capsule = 300 mg, By Mouth, 2 times a day, Rx'd by neurology at [facility], # 60 capsule, 0 Refills, Maintenance, 10/04/22 8:24:00 EDT, Capsule, Partial fill upon patient request if the prescription is for a schedule II opioid drug. Start Date: 10/04/22 Status: Ordered primidone 50 mg oral tablet 100 mg, 2, tablet, By Mouth, 2 times a day, rx'd by neurology at [facility], # 120 tablet, Refills 0, [...] times a day, Rx'd by neurology at [facility], # 270 tablet, 0 Refills, Maintenance, 10/04/22 [...] Maintenance, DX: M51. 26 please send to [facility] [place], 08/08/22 15:41:00 EST, Supply Start Date: 08/08/22 Status: Ordered Symbicort 160mcg/4.5mcg Inhaler 2, puffs, Inhalation, 2 times a day, # 6 Gm, Refills 0, Tot. Refills 0, Maintenance, 12/22/22 21:20:00 EDT, Aerosol, Route to Pharmacy Electronically, [id number], [facility]/pharmacy #[id number], 183, cm, 12/08/22 8:26:00 EDT, [...] Refills, Maintenance, 03/15/22 14:29:00 EDT, [id number], 183, cm, 02/08/22 6:42:00 EDT, Height, 123.2, [...] provided increased discomfort related to nerves. 3Seeing [place] neurology and sleep. Given a trial of [...] Care Team Personnel Name: Olimpia Parker Position: [facility] JUAN Office Staff Member Role: Lifetime Consulting Physician Name: Dayo Castano DO Position: [facility] Resident Member Role: PCP Address: Address: [address] [place] [address]- Care Team Related Persons Name: JARROD BRADFORD Address: home [address] [place] [address] Name: LOLA BRADFORD Address: home [address] [place] [address] Name: GOLDIE LERMA Address: [place] [address] Name: OLIMPIA LERMA Address: [place] [address] Name: KADE LERMA Address: home [address] [place] [address] Name: KADE LERMA Address: home [address] [place] [address]
--- OUTSIDE RECORDS SUMMARY | 2023-11-02 08:23 | XMS_ITS | Continuity of Care Document ---
Author Organization [facility] Address [address] [place] [address]- Care Team Providers Care Piping Manager Name Role Phone Elian Campos MD Primary Care Physician [phone] Encounter [facility] Date(s): 06/25/19 - 07/02/19 [facility] [address] [place] [address]- [facility] Attending Physician: Allen Jones MD Referring Physician: Elian Campos MD Allergies, Adverse Reactions, Alerts Substance Reaction Severity Status penicillin Unknown Active gabapentin Active hydrOXYzine hydrochloride Ac tive Lantus Active Ventolin HFA Active Flovent HFA Active metFORMIN pruritis Active traZODone Active ZyrTEC Active SEROquel Active [...] 02/16/16 Given tetanus/diphtheria/pertussis, acel(Tdap) 11/25/14 Given Medications Aqua Therapy for Left Hip pain M25.559 Aqua Therapy for Left Hip pain M25.559, See Instructions, # 1 each, Refills 0, Tot. Refills 0, Maintenance, 1, 10/16/17 16:16:09 EDT, Compound Start Date: 10/16/17 Status: Ordered Auto CPAP Auto CPAP, See [...] 06/27/16 11:24:23,... Start Date: 06/27/16 Status: Ordered Compression- Lower Extremity (Knee High) See Instructions, # 2 each, Refills 0, Tot. Refills 0, Maintenance, Pressure of 20-30 mmHG. For bilateral lower extremity venous stasis with edema/swelling, 04/06/18 15:30:34 EDT, Compound Start Date: 04/06/18 Status: Ordered Diabetic socks Diabetic socks, See Instructions, # 1 each, Refills 5, Tot. Refills 5, Maintenance, please dispensediabetic stocks for this pt with DX E11.9, 11/23/18 8:39:57 EDT, Compound Start Date: 11/23/18 Status: Ordered Freestyle Lite Lancets See Instructions, [...] 19:31:42, Compound Start Date: 07/11/16 Status: Ordered omega-3 polyunsaturated fatty acids ethyl esters 1000 mg oral capsule 1 capsule = 1,000 mg, By Mouth, 2 times a day, # 60 capsule, 11 Refills, Maintenance, 01/11/18 17:53:45 EDT, Capsule, 1 capsule By Mouth 2 times a day,x30 days Start Date: 01/11/18 Stop Date: 01/06/19 Status: Ordered Physical Therapy for Left Hip pain M25.559 Physical Therapy for Left Hip pain M25.559, See Instructions, # 1 each, Refills 0, Tot. Refills 0, Maintenance, 1, 10/16/17 10:23:10 EDT, Compound Start Date: 10/16/17 Status: Ordered Problem List Condition Effective Dates [...] provided increased discomfort related to nerves. 3Seeing [place] neurology and sleep. Given a trial of Tegretol 200 mg upto 2 tablets twice a day andadvised to continue with Lyrica 300 mg twice a day. Had some improvement of the facial pain with this regimen. 4Seeing [place] neurology and asleep. On 09/11/2018 started on a trial of primidone 50 mg, 1 tablet for 1 week and then twice a day. 5Seeing Aydin Castrejon 6per pt, he is on disability, seen by Dr. Pollock 7Simvastatin 40 mg d/sedrick. Vital Signs Most recent to oldest [Reference Range]: 1 Height 184 cm (06/25/19 1:22 PM) Weight 123.27 kg (06/25/19 1:22 PM) Oxygen Saturation [94-100 %] 100 % (06/25/19 1:22 PM) Pulse Rate [55-90 bpm] 67 bpm (06/25/19 1:22 PM) Body Mass Index [18.5-24.99] 36.41 *>HHI* (06/25/19 1:22 PM) Blood Pressure [90-138/55-84 mm Hg] 111/ 95mm Hg (06/25/19 1:22 PM) Respiratory Rate [16-30 br/min] 20 br/mi n (06/25/19 1:22 PM) Temperature [96.8-100.4 DegF] 98.3 DegF (06/25/19 1:22 PM) Mode of Delivery (Oxygen) Room air (06/25/19 1:22 PM) Blood pressure sites Arm, left (06/25/19 1:22 PM) Temperature Route Oral (06/25/19 1:22 PM) Dry Weight 123.27 kg (06/25/19 1:22 PM) Weight Obtained Via Standing scale (06/25/19 1:22 PM) Dry Weight Obtained Via Standing scale (06/25/19 1:22 PM) Social History Social History Type Response Smoking Status 5-9 cigarettes (betw een 1/4 to 1/2 pack)/day in last 30 days entered on: 05/27/19 Sex
--- OUTSIDE RECORDS SUMMARY | 2023-11-02 08:23 | XMS_ITS | Continuity of Care Document ---
Author Organization [facility] Address [address] [place] [address]- Care Team Providers Care Embroidery Finisher Name Role Phone Terence PRATHER, Azra Primary Care Physician [place] [facility] [place]12[place]20 - 03/13/20 [facility] [address] [place] [address]- [facility] Allergies, Adverse Reactions, Alerts Substance Reaction Severity [...] 01/15/20 9:51:00 EDT, Route to Pharmacy Electronically, [facility]/pharmacy #[id number], 184, cm, 01/15/20 9:11:00 EDT, Height, 123.27, kg, 06/25/19 13:22:00 EST, Dry Weight Start Date: 01/15/20 Stop Date: 03/15/20 Status: Ordered aspirin 81 mg oral tablet 1 tablet = 81 mg, By Mouth, Daily, # 90 tablet, 3 Refills, Maintenance, 01/15/20 9:51:00 EDT, Tablet, [facility]/pharmacy #[id number], 184, cm, 01/15/20 9:11:00 EDT, Height, [...] 02/07/20 9:49:00 EDT, Route to Pharmacy Electronically, [facility]/pharmacy #[id number], 184, cm, 01/29/20 14:16:00 EDT, Height, [...] 08/17/20 13:12:00 EST, Route to Pharmacy Electronically, [facility]/pharmacy #[id number], 184, cm, 02/28/20 15:58:00 EDT, Height, [...] 3 Refills, Maintenance, 01/15/20 9:51:00 EDT, Tablet, [facility]/pharmacy #[id number], 184, cm, 01/15/20 9:11:00 EDT, Height, 123.27, kg, 06/25/19 13:22:00 EST, Dry Weight Start Date: 01/15/20 Stop Date: 03/15/20 Status: Ordered fluticasone 50 mcg/inh nasal spray See Instructions, USE 1 SPRAY IN EACH NOSTRIL EVERY MORNING, # 16 mL, 0 Refills, Maintenance, [facility], 30, USE 1 SPRAY IN EACH NOSTRIL [...] AND NOON Start Date: 02/28/20 Status: Ordered lidocaine 5% topical ointment 1 application, Topically, 3 times a day, for 7 days, # 35 Gm, 0 Refills, Acute 03/18/20 21:53:00 EDT, 03/11/20 21:53:00 EDT, Ointment, [facility]/pharmacy #[id number], 1 application Topically 3 times a day,x7 days, 184, cm, 03/03/20 13:48:00 EDT, Height, 123.27, k... Start Date: 03/11/20 Stop Date: 03/18/20 Status: Ordered Lyrica 300 mg oral capsule 1 capsule = 300 mg, By Mouth, 2 times a day, # 120 capsule, 2 Refills, Maintenance, 01/27/20 10:39:00 EDT, Capsule, [facility]/pharmacy #[id number], 184, cm, 01/15/20 9:52:00 EDT, Height, 123.27, kg, 06/25/19 13:22:00 EST, Dry Weight Start Date: 01/27/20 Stop Date: 07/25/20 Status: Ordered metFORMIN 500 mg oral tablet 1 tablet = 500 mg, By Mouth, Daily, with meals, # 90 tablet, 11 Refills, Maintenance, 03/02/20 9:56:00 EDT, Tablet, [facility]/pharmacy #[id number], 184, cm, 02/28/20 15:58:00 EDT, Height, [...] Dry Weight Start Date: 02/06/20 Status: Ordered Tylenol Extra Strength 500 mg oral tablet 2 tablet = 1,000 mg, By Mouth, Every 6 hours, not to exceed 4000 mg/day, # 120 tablet, 0 Refills, Acute 03/27/20 8:00:00 EDT, 03/10/20 14:50:00 EDT, Tablet, [id number], 184, cm, 03/03/20 13:48:00 EDT, Height, 123.27, kg, 06/25/19 13:22:00 EST,... Start Date: 03/10/20 Stop Date: 03/27/20 Status: Ordered Problem List Condition Effective Dates [...]
--- OUTSIDE RECORDS SUMMARY | 2023-11-02 08:23 | XMS_ITS | Continuity of Care Document ---
Author Organization [facility] Address [address] [place] [address]- Care Team Providers Care Nurses' Association Counselor Name Role Phone Contractor Krystal FERNANDEZ Primary Care Physician Encounter [facility] Date(s): 02/08/21 - 04/01/[address] [address]- Attending Physician: Reshma Benson MD Admitting Physician: Reshma Benson MD Referring Physician: Contractor Krystal FERNANDEZ Allergies, Adverse Reactions, Alerts Substance Reaction Severity Status penicillin Unknown Active gabapentin Active hydrOXYzine hydrochloride Ac tive Lantus Active Ventolin HFA Active Flovent HFA Active traZODone Active ZyrTEC Active SEROquel Active Immunizations Given and Recorded Vaccine Date Status Refusal Reason influenza virus vaccine, inactivated 03/30/21 Give n influenza virus vaccine, inactivated 03/02/20 Pavel rded influenza virus vaccine, inactivated 03/07/19 Give n influenza virus vaccine, inactivated 03/28/18 Give n influenza virus vaccine, inactivated 02/10/18 Pavel rded influenza virus vaccine, inactivated 03/30/16 Give n influenza virus vaccine, inactivated 03/04/16 Give n influenza virus vaccine, inactivated 04/16/15 Give n SARS-CoV-2 (COVID-19) mRNA BNT-162b2 vac 11/07/20 Recorded SARS-CoV-2 (COVID-19) mRNA BNT-162b2 vac 10/17/20 Recorded zoster vaccine, inactivated 06/18/19 Recorded zoster vaccine, inactivated 06/17/19 Recorded zoster vaccine, inactivated 11/25/17 Recorded Influenza Vaccine (oldterm) 02/17/17 Recorded pneumococcal 23-valent vaccine 02/16/16 Given tetanus/diphtheria/pertussis, acel(Tdap) 11/25/14 Given Medications amitriptyline 100 mg oral tablet 1 tablet = 100 mg, By Mouth, Daily at bedtime, until mental provider evaluaties, # 30 tablet, 1 Refills, Maintenance, 03/17/21 10:19:00 EDT, Tablet, [id number], Partial fill upon patient request if the prescription is for a schedule II opioid... Start Date: 03/17/21 Stop Date: 05/16/21 Status: Ordered amlodipine-valsartan 10 mg-320 mg oral [...] 3 Refills, Maintenance, 01/15/20 9:51:00 EDT, Tablet, [id number], 184, cm, 01/15/20 9:11:00 EDT, Height, [...] Need length 99 months Please send to [email or web address], 01/21/21 13:20:00 EDT, Supply Start Date: 01/21/21 Status: Ordered chlorthalidone 25 mg oral tablet 25 mg, 1, tablet, By Mouth, Daily, # 30 tablet, Refills 0, Tot. Refills 0, Maintenance, 03/03/21 17:24:00 EDT, Route to Pharmacy Electronically, [facility]/pharmacy #[id number], Partial fill upon patient request if the prescription is for a schedule II opioid drug... Start Date: 03/03/21 Status: Ordered Claritin 10 mg oral tablet 10 mg, 1, tablet, By Mouth, Daily, # 30 tablet, Refills 3, Tot. Refills 3, Maintenance, 01/29/21 9:13:00 EDT, Route to Pharmacy Electronically, [facility]/pharmacy #[id number], 184, cm, 01/29/21 9:06:00 EDT, Height, [...] 03/03/21 17:36:00 EDT, Cream, [facility]/pharmacy #[id number], Partial fill upon patient request if the prescription is for a schedule II opioid drug., 1 application Topically 3 ti... Start Date: 03/03/21 Status: Ordered cyanocobalamin 1000 mcg oral tablet 1,000 mcg, 1, tablet, By Mouth, Daily, for 90 days, # 90 tablet, Refills 11, Tot. Refills 11, Hard Stop 08/02/23 13:12:00 EST, 08/17/20 13:12:00 EST, Route to Pharmacy Electronically, [facility]/pharmacy #[id number], 184, cm, 02/28/20 15:58:00 EDT, Height, 123.27,... Start Date: 08/17/20 Stop Date: 08/02/23 Status: Ordered cyanocobalamin 1000 mcg oral tablet 1,000 mcg, 1, tablet, By Mouth, Daily, # 90 tablet, Refills 11, Tot. Refills 11, Maintenance, 08/02/23 13:12:00 EST, Route to Pharmacy Electronically, [facility]/pharmacy #[id number], 184, cm, 01/01/21 10:56:00 EDT, Height, [...] 01/11/21 15:23:00 EDT, Tablet, [facility]/pharmacy #[id number], Partial fill upon patient request if the prescription is for a schedule II opioid drug., 184, cm,... Start Date: 01/11/21 Status: Ordered escitalopram 10 mg oral tablet 1 tablet = 10 mg, By Mouth, Daily, Reduction in dose, # 30 tablet, 2 Refills, Maintenance, 03/18/2113:12:00 EDT, Tablet, [facility]/pharmacy #[id number], Partial fill upon patient request if the prescription is for a schedule II opioid drug., 184, cm, 03/03/21 14... Start Date: 03/18/21 Status: Ordered fluticasone 50 mcg/inh nasal spray [...] Dry Weight Start Date: 03/30/21 Status: Ordered Freestyle Lite Test Strips See [...] 02/10/21 13:09:00 EDT, Ointment, [facility]/pharmacy #[id number], Partial fill upon patient request if the [...] 3 Refills, Maintenance, 03/03/21 17:29:00 EDT, Tablet, [facility]/pharmacy #[id number], Partial fill upon p... Start Date: 03/03/21 Status: Ordered omega-3 polyunsaturated fatty acids ethyl esters 1000 mg oral capsule 1 capsule = 1,000 mg, By Mouth, 2 times a day, # 60 capsule, 11 Refills, Maintenance, 01/01/21 11:25:00 EDT, Capsule, [facility]/pharmacy #[id number], 1 capsule By Mouth 2 times a day,x30 days, 184, cm, 01/01/21 10:56:00 EDT, Height, 123.27, kg, 06/25/19 13:22:00... Start Date: 01/01/21 Stop Date: 12/27/21 Status: Ordered omeprazole 20 mg oral enteric coated capsule 1 capsule = 20 mg, By Mouth, Daily, # 30 capsule, 2 Refills, Maintenance, 02/24/21 9:28:00 EDT, EC Capsule, [facility]/pharmacy #[id number], 184, cm, 02/03/21 10:57:00 EDT, Height, [...] 28 tablet, 0 Refills, Maintenance, [facility], 184, cm, 02/01/21 10:51:00 EDT, Height, 123.27, [...] pain, # 100 tablet, 5 Refills, Maintenance, 03/11/21 9:40:00 EDT, Tablet, [facility]/pharmacy #[id number], Partial fill upon patient request if the prescription is for a schedule II opioid drug., 184,... Start Date: 03/11/21 Status: Ordered Problem List Condition Effective Dates Status Health Status Inform ant Polyp of colon, adenomatous( Confirmed) 1 08/09/16 Active Anxiety(Confirmed) Active Atypical facial pain, left(C onfirmed) 2, [...] provided increased discomfort related to nerves. 3Seeing [place] neurology and sleep. Given a trial of Tegretol 200 mg upto 2 tablets twice a day andadvised to continue with Lyrica 300 mg twice a day. Had some improvement of the facial pain with this regimen. 4Seeing [place] neurology and asleep. On 09/11/2018 started on [...]
--- OUTSIDE RECORDS SUMMARY | 2023-11-02 08:23 | XMS_ITS | Continuity of Care Document ---
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 Start Date: 11/27/20 Stop Date: 01/27/21 Status: Ordered amLODIPine 10 mg oral tablet 10 mg, 1, tablet, By Mouth, Daily, # 90 tablet, Refills 3, Tot. Refills 3, Maintenance, 10/30/20 15:08:00 EDT, Route to Pharmacy Electronically, [facility]/pharmacy #[id number], 184, cm, 10/30/20 14:15:00 EDT, Height, 123.27, kg, 06/25/19 13:22:00 EST, Dry Weight Start Date: 10/30/20 Status: Ordered aspirin 81 mg oral delayed release tablet 81 mg, 1, tablet, By Mouth, Daily, # 90 tablet, Refills 0, Tot. Refills 0, Maintenance, 01/01/21 11:26:00 EDT, Route to Pharmacy Electronically, [facility]/pharmacy #[id number], Partial fill upon patient request if the prescription is for a schedule II opioid drug... Start Date: 01/01/21 Status: Ordered aspirin 81 mg oral tablet 1 tablet = 81 mg, By Mouth, Daily, # 90 tablet, 3 Refills, Maintenance, 01/15/20 9:51:00 EDT, Tablet, [facility]/pharmacy #[id number], 184, cm, 01/15/20 9:11:00 [...] Need length 99 months Please send to [facility], 01/21/21 13:20:00 EDT, Supply Start Date: 01/21/21 Status: Ordered Claritin 10 mg oral tablet 10 mg, 1, tablet, By Mouth, Daily, # 30 tablet, Refills 0, Tot. Refills 0, Maintenance, 02/07/20 9:49:00 EDT, Route to Pharmacy Electronically, [facility]/pharmacy #[id number], 184, cm, 01/29/20 14:16:00 EDT, [...] 08/17/20 13:12:00 EST, Route to Pharmacy Electronically, [facility]/pharmacy #[id number], 184, cm, 02/28/20 15:58:00 EDT, Height, 123.27,... Start Date: 08/17/20 Stop Date: 08/02/23 Status: Ordered cyanocobalamin 1000 mcg oral tablet 1,000 mcg, 1, tablet, By Mouth, Daily, # 90 tablet, Refills 11, Tot. Refills 11, Maintenance, 08/02/23 13:12:00 EST, Route to Pharmacy Electronically, [facility]/pharmacy #[id number], 184, cm, 01/01/21 10:56:00 [...] 1 Refills, Maintenance, 01/21/21 9:25:00 EDT, Gel, [facility]/pharmacy #[id number], Partial fill upon patientrequest if the prescription is for a schedule II o... Start Date: 01/21/21 Status: Ordered Diovan 320 mg oral tablet 1 tablet = 320 mg, By Mouth, Daily, # 90 tablet, 3 Refills, Maintenance, 01/01/21 11:24:00 EDT, Tablet, [facility]/pharmacy #[id number], 184, cm, 01/01/21 10:56:00 EDT, Height, 123.27, kg, 06/25/19 13:22:00 EST, Dry Weight Start Date: 01/01/21 Status: Ordered docusate sodium 100 mg oral tablet 1 tablet = 100 mg, By Mouth, 2 times a day, PRN for constipation, # 60 tablet, 5 Refills, Maintenance, 01/11/21 15:23:00 EDT, Tablet, [facility]/pharmacy #[id number], Partial fill upon patient request if the prescription is for a schedule II opioid drug., 184, cm,... Start Date: 01/11/21 Status: Ordered fluocinonide 0.05% topical cream See Instructions, 1 application Topically 3 times a day, as needed, for itchy rash. apply a thin film to affected areas, # 30 Gm, 0 Refills, Maintenance, 10/03/20 15:41:00 EDT, Cream, [facility]/pharmacy #[id number], Partial fill upon patient request if the presc... Start Date: 10/03/20 Status: Ordered fluticasone 50 mcg/inh nasal spray See Instructions, USE 1 SPRAY IN EACH NOSTRIL EVERY MORNING, # 16 mL, 0 Refills, Maintenance, [id number], 30, USE 1 SPRAY IN EACH NOSTRIL [...] 11 Refills, Maintenance, 01/01/21 11:24:00 EDT, Tablet, [facility]/pharmacy #[id number], 184, cm, 01/01/21 10:56:00 [...] 2 Refills, Maintenance, 02/06/20 16:40:00 EDT, ECCapsule, [facility]/pharmacy #[id number], 184, cm, 01/29/20 14:16:00 EDT, [...] 28 tablet, 0 Refills, Maintenance, [id number], 184, cm, 12/09/20 11:19:00 EDT, Height, 123.27, [...] provided increased discomfort related to nerves. 3Seeing [place] neurology and sleep. Given a trial of Tegretol 200 mg upto 2 tablets twice a day andadvised to continue with Lyrica 300 mg twice a day. Had some improvement of the facial pain with this regimen. 4Seeing [place] neurology and asleep. On 09/11/2018 started on [...]
--- OUTSIDE RECORDS SUMMARY | 2023-11-02 08:23 | XMS_ITS | Continuity of Care Document ---
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 Reactor Operator Name Role Phone Contractor Krystal FERNANDEZ Primary Care Physician En[place] [facility] [place] Date(s): 11/18/20 - 01/03/[address] [address] Attending Physician: Not on Staff, Attending MD Referring Physician: Terence PRATHER, Azra Allergies, Adverse Reactions, Alerts Substance Reaction Severity Status penicillin Unknown Active gabapentin Active hydrOXYzine hydrochloride Ac tive Lantus Active ZyrTEC Active SEROquel Active Ventolin HFA Active Flovent HFA Active traZODone Active Immunizations [...] 01/27/21 8:00:00 EDT, 11/27/20 10:53:00 EDT, Tablet, [facility]/pharmacy #[id number], Partial fill up... Start Date: 11/27/20 Stop Date: 01/27/21 Status: Ordered amLODIPine 10 mg oral tablet 10 mg, 1, tablet, By Mouth, Daily, # 90 tablet, Refills 3, Tot. Refills 3, Maintenance, 10/30/20 15:08:00 EDT, Route to Pharmacy Electronically, [facility]/pharmacy #[id number], 184, cm, 10/30/20 14:15:00 EDT, Height, 123.27, kg, 06/25/19 13:22:00 EST, Dry Weight Start Date: 10/30/20 Status: Ordered aspirin 81 mg oral delayed release tablet 81 mg, 1, tablet, By Mouth, Daily, # 90 tablet, Refills 0, Tot. Refills 0, Maintenance, 01/01/21 11:26:00 EDT, Route to Pharmacy Electronically, [facility]/pharmacy #[id number], Partial fill upon patient request if the prescription is for a schedule II opioid drug... Start Date: 01/01/21 Status: Ordered aspirin 81 mg oral tablet 1 tablet = 81 mg, By Mouth, Daily, # 90 tablet, 3 Refills, Maintenance, 01/15/20 9:51:00 EDT, Tablet, [facility]/pharmacy #[id number], 184, cm, 01/15/20 9:11:00 EDT, Height, [...] 02/07/20 9:49:00 EDT, Route to Pharmacy Electronically, [facility]/pharmacy #[id number], 184, cm, 01/29/20 14:16:00 EDT, Height, [...] 08/17/20 13:12:00 EST, Route to Pharmacy Electronically, [facility]/pharmacy #[id number], 184, cm, 02/28/20 15:58:00 EDT, Height, 123.27,... Start Date: 08/17/20 Stop Date: 08/02/23 Status: Ordered cyanocobalamin 1000 mcg oral tablet 1,000 mcg, 1, tablet, By Mouth, Daily, # 90 tablet, Refills 11, Tot. Refills 11, Maintenance, 08/02/23 13:12:00 EST, Route to Pharmacy Electronically, [facility]/pharmacy #[id number], 184, cm, 01/01/21 10:56:00 EDT, Height, [...] 1 Refills, Maintenance, 12/03/20 16:21:00 EDT, Gel, [facility]/pharmacy #[id number], Partial fill upon patient request if the prescription is for a schedule II... Start Date: 12/03/20 Status: Ordered Diovan 320 mg oral tablet 1 tablet = 320 mg, By Mouth, Daily, # 90 tablet, 3 Refills, Maintenance, 01/01/21 11:24:00 EDT, Tablet, [facility]/pharmacy #[id number], 184, cm, 01/01/21 10:56:00 EDT, Height, 123.27, kg, 06/25/19 13:22:00 EST, Dry Weight Start Date: 01/01/21 Status: Ordered fluocinonide 0.05% topical cream See Instructions, 1 application Topically 3 times a day, as needed, for itchy rash. apply a thin film to affected areas, # 30 Gm, 0 Refills, Maintenance, 10/03/20 15:41:00 EDT, Cream, [facility]/pharmacy #[id number], Partial fill upon patient request if the presc... Start Date: 10/03/20 Status: Ordered fluticasone 50 mcg/inh nasal spray See Instructions, USE 1 SPRAY IN EACH NOSTRIL EVERY MORNING, # 16 mL, 0 Refills, Maintenance, [id number], 30, USE 1 SPRAY IN EACH NOSTRIL [...] 11 Refills, Maintenance, 01/01/21 11:24:00 EDT, Tablet, [facility]/pharmacy #[id number], 184, cm, 01/01/21 10:56:00 EDT, Height, 123.27, kg, 06/25/19 13:22:00 EST, Dry Weight Start Date: 01/01/21 Status: Ordered omega-3 polyunsaturated fatty acids ethyl esters 1000 mg oral capsule 1 capsule = 1,000 mg, By Mouth, 2 times a day, # 60 capsule, 11 Refills, Maintenance, 01/01/21 11:25:00 EDT, Capsule, [facility]/pharmacy #[id number], 1 capsule By Mouth 2 times a day,x30 days, 184, cm, 01/01/21 10:56:00 EDT, Height, 123.27, kg, 06/25/19 13:22:00... Start Date: 01/01/21 Stop Date: 12/27/21 Status: Ordered omeprazole 20 mg oral enteric coated capsule 1 capsule = 20 mg, By Mouth, Daily, # 30 capsule, 2 Refills, Maintenance, 02/06/20 16:40:00 EDT, ECCapsule, [facility]/pharmacy #[id number], 184, cm, 01/29/20 14:16:00 EDT, Height, 123.27, kg, 06/25/19 13:22:00 EST, Dry Weight Start Date: 02/06/20 Status: Ordered Robaxin-750 750 mg oral tablet 2 tablet = 1,500 mg, By Mouth, 3 times a day, for 10 days, it make drowsiness, # 60 tablet, 0 Refills, Acute 01/11/21 11:23:00 EDT, 01/01/21 11:23:00 EDT, Tablet, [facility]/pharmacy #[id number], Partial fill upon patient request if [...] a day, PRN Pain , Mild, # 28 tablet, 0 Refills, Maintenance, 01/01/21 11:19:00 EDT, Tablet, [facility]/pharmacy #[id number], Partial fill upon patient request if the prescription is for a schedule II opioid drug., 184, cm, 12/17... Start Date: 01/01/21 Stop Date: 01/15/21 Status: Ordered sulindac 150 mg oral tablet See Instructions, TAKE 1 TABLET BY MOUTH TWICE DAILY NEEDED FOR PAIN, # 28 tablet, 0 Refills, Maintenance, [id number], 184, cm, 12/09/20 11:19:00 EDT, Height, 123.27, [...] provided increased discomfort related to nerves. 3Seeing [place] neurology and sleep. Given a trial of Tegretol 200 mg upto 2 tablets twice a day andadvised to continue with Lyrica 300 mg twice a day. Had some improvement of the facial pain with this regimen. 4Seeing [place] neurology and asleep. On 09/11/2018 started on [...]
--- OUTSIDE RECORDS SUMMARY | 2023-11-02 08:23 | XMS_ITS | Continuity of Care Document ---
Author Organization [facility] Address [address] [place] [address]- Care Team Providers Care Manager Integrity Name Role Phone Contractor Krystal FERNANDEZ Primary Care Physician Encounter [facility] Date(s): 07/16/21 - 08/15/[address] [address] Allergies, Adverse Reactions, Alerts Substance [...] acel(Tdap) 11/25/14 Given 1Result Comment: DILUENT LOT#: [id number] EXP: 11/2022 MFG: FRESENSIUS Medications amitriptyline 100 mg oral tablet 1 tablet = 100 mg, By Mouth, Daily at bedtime, # 30 tablet, 3 Refills, Maintenance, 08/11/21 10:02:00 EST, Tablet, [facility]/pharmacy #[id number], Partial fill upon patient request if [...] 3 Refills, Maintenance, 03/03/21 17:24:00 EDT, Tablet, [facility]/pharmacy #[id number], Partial fill upo... Start Date: 03/03/21 Status: Ordered aspirin 81 mg oral delayed release tablet 81 mg, 1, tablet, By Mouth, Daily, # 90 tablet, Refills 0, Tot. Refills 0, Maintenance, 01/01/21 11:26:00 EDT, Route to Pharmacy Electronically, [facility]/pharmacy #[id number], Partial fill upon patient request if [...] Need length 99 months Please send to [facility], 01/21/21 13:20:00 EDT, Supply Start Date: 01/21/21 Status: Ordered carbidopa-levodopa 25 mg-100 mg oral tablet 1 tablet, By Mouth, 3 times a day, Rx'd by Neurology at [facility]/ Dr. Murphy, # 270 tablet, 0 Refills, Maintenance, 04/15/21 23:30:00 EDT, Tablet, Partial fill upon patient request if the prescription is for a schedule II opioid drug. Start Date: 04/15/21 Status: Ordered chlorthalidone 25 mg oral tablet 1, tablet, By Mouth, Daily, # 30 tablet, Refills 5, Route to Pharmacy Electronically, [id number], 184, cm, 03/30/21 16:08:00 EDT, Height, 123.27, kg, 06/25/19 13:22:00 EST, Dry Weight Start Date: 04/07/21 Status: Ordered Claritin 10 mg oral tablet 10 mg, 1, tablet, By Mouth, Daily, more sea necesario para alergia, # 30 tablet, Refills 5, Tot. Refills 5, Maintenance, 04/13/21 10:04:00 EDT, Route to Pharmacy Electronically, [facility]/pharmacy #[id number], 184, cm, 04/13/21 9:26:00 EDT, Height, 123.27, kg, 01... Start Date: 04/13/21 Status: Ordered clonazePAM 2 mg oral tablet See Instructions, 1 tablet by mouth only NEEDED for severe panic attack. Dispense: #20 tabs per 20d., # 20 tablet, 0 Refills, Maintenance, 07/26/21 9:23:00 EST, Tablet, [facility]/pharmacy #[id number], Partialfill upon patient request if the prescription is f... Start Date: 07/26/21 Status: Ordered Compression Stockings See Instructions, # [...] 0 Refills, Maintenance, 03/03/21 17:36:00 EDT, Cream, [facility]/pharmacy #[id number], Partial fill upon patient request if the prescription is for a schedule II opioid drug., 1 application Topically 3 ti... Start Date: 03/03/21 Status: Ordered cyanocobalamin 1000 mcg oral tablet 1,000 mcg, 1, tablet, By Mouth, Daily, # 90 tablet, Refills 11, Tot. Refills 11, Maintenance, 08/02/23 13:12:00 EST, Route to Pharmacy Electronically, [facility]/pharmacy #[id number], 184, cm, 01/01/21 10:56:00 EDT, Height, [...] 5 Refills, Maintenance, 01/11/21 15:23:00 EDT, Tablet, [facility]/pharmacy #[id number], Partial fill upon patient request if the prescription is for a schedule II opioid drug., 184, cm,... Start Date: 01/11/21 Status: Ordered escitalopram 20 mg oral tablet 1 tablet = 20 mg, By Mouth, Daily, # 30 tablet, 3 Refills, Maintenance, 07/13/21 12:26:00 EST, Tablet, [facility]/pharmacy #[id number], d/c citalopram 10 mg, 184, cm, 06/14/21 11:01:00 EST, Height Start Date: 07/13/21 Status: Ordered fluticasone 50 mcg/inh nasal spray See Instructions, USE 1 SPRAY IN EACH NOSTRIL EVERY MORNING, # 16 mL, 3 Refills, 01/29/21 9:11:00 EDT, [facility]/pharmacy #[id number], 30, USE 1 SPRAY IN EACH [...] 2 Refills, Maintenance, 02/10/21 13:09:00 EDT, Ointment, [facility]/pharmacy #[id number], Partial fill upon patient request if the prescription is for a schedule II opioid drug., 1 application Top... Start Date: 02/10/21 Status: Ordered magnesium oxide 400 mg oral tablet 1 tablet = 400 mg, By Mouth, Daily, [facility] Dr[facility], 0 Refills, Maintenance, 04/15/21 23:30:00 [...] 3 Refills, Maintenance, 03/03/21 17:29:00 EDT, Tablet, [facility]/pharmacy #[id number], Partial fill upon p... Start Date: 03/03/21 Status: Ordered nicotine 21 mg/24 hr transdermal film, extended release 1 patch, Topically, Daily, for 6 week(s), Rx in [place]odian, # 42 patch, 1 Refills, Acute 08/16/21 [...] Mouth, Daily, # 90 capsule, 0 Refills, [id number], 184, cm, 06/14/21 11:01:00 EST, Height, 123.27, [...] Maintenance, DX: M51. [id number] please send to [facility], 01/21/21 13:20:00 EDT, Supply Start Date: 01/21/21 Status: Ordered sulindac 150 mg oral tablet See Instructions, TAKE 1 TABLET BY MOUTH TWICE A DAY NEEDED FOR PAIN, # 28 tablet, 0 Refills, Maintenance, [id number], 184, cm, 02/01/21 10:51:00 EDT, Height, 123.27, kg, 06/25/19 13:22:00 EST, Dry Weight Start Date: 02/01/21 Status: Ordered Tylenol Extra Strength 500 mg oral tablet 2 tablet = 1,000 mg, By Mouth, 3 times a day, PRN as needed for pain, # 100 tablet, 5 Refills, Maintenance, 07/26/21 9:43:00 EST, Tablet, [facility]/pharmacy #[id number], Partial fill upon patient request if [...] provided increased discomfort related to nerves. 3Seeing [place] neurology and sleep. Given a trial of Tegretol 200 mg upto 2 tablets twice a day andadvised to continue with Lyrica 300 mg twice a day. Had some improvement of the facial pain with this regimen. 4Seeing [place] neurology and asleep. On 09/11/2018 started on [...]
--- OUTSIDE RECORDS SUMMARY | 2023-11-02 08:23 | XMS_ITS | Continuity of Care Document ---
Author Organization [facility] Address [address] [place] [id number]- Care Team Providers Care Diabetes Physician Name Role Phone Terence PRATHER, Azra Primary Care Physician Encounter [facility] [place] Date(s): 02/04/20 - 03/05/20 [facility]/[address] [address]- [facility] Allergies, Adverse Reactions, Alerts Substance Reaction Severity [...] 02/16/16 Given tetanus/diphtheria/pertussis, acel(Tdap) 11/25/14 Given Medications acetaminophen-codeine 300 mg-30 mg oral tablet 1, tablet, By Mouth, Daily, PRN, not to exceed 4000 mg acetaminophen per day, # 30 tablet, Refills 0, Tot. Refills 0, Maintenance, Pain , Severe, 01/15/20 9:49:00 EDT, Route to Pharmacy Electronically, [facility]/pharmacy #[id number] Tablet, 184, cm, 01/15/20 9:11... Start Date: 01/15/20 Stop Date: 02/14/20 Status: Ordered amLODIPine 10 mg oral tablet 10 mg, 1, tablet, By Mouth, Daily, # 90 tablet, Refills 3, Tot. Refills 3, Maintenance, 01/15/20 9:51:00 EDT, [id number] 184, cm, 01/15/20 9:11:00 EDT, Height, [...] Maintenance, [facility] [id number], 30, USE 1 SPRAY IN EACH NOSTRIL [...] provided increased discomfort related to nerves. 3Seeing [place] neurology and sleep. Given a trial of Tegretol 200 mg upto 2 tablets twice a day andadvised to continue with Lyrica 300 mg twice a day. Had some improvement of the facial pain with this regimen. 4Seeing [place] neurology and asleep. On 09/11/2018 started on [...]
--- OUTSIDE RECORDS SUMMARY | 2023-11-02 08:23 | XMS_ITS | Continuity of Care Document ---
Author Organization [facility] Address [address] [place] [address]- Care Team Providers Care Bearing Ring Assembler Name Role Phone Keeley PRATHER, Dave Dash Primary Care Physician [facility]counter [facility] Date(s): 12/03/22 - 01/02/23 [facility] [address] [place] [id number] Attending Physician: Cristian Pdailla Admitting Physician: AdmtrCristian Referring Physician: Admtr, Ar8 Allergies, Adverse Reactions, Alerts Substance Reaction Severity Status penicillin Unknown Active gabapentin Active hydrOXYzine hydrochloride Ac tive SEROquel Active Lantus Active ZyrTEC Active Ventolin HFA Active Flovent HFA Active [...] acel(Tdap) 11/25/14 Given 1Result Comment: DILUENT LOT#: [id number] EXP: 11/2022 MFG: FRESENSIUS Medications amitriptyline 100 mg oral tablet 1 tablet = 100 mg, By Mouth, Daily at bedtime, Rx'd by neurology ([facility]), # 30 tablet, 0 Refills, Maintenance, [...] tablet, 1 Refills, Maintenance, 11/28/22 12:36:00 EDT, [id number], 183, cm, 11/10/22 8:32:00 EDT, Height, 123.2, kg, 02/07/22 12:47:00 EDT, Dry Weight Start Date: 11/28/22 Status: Ordered atorvastatin 20 mg oral tablet 1 tablet = 20 mg, By Mouth, Daily, # 90 tablet, 1 Refills, Maintenance, 11/17/22 10:19:00 EDT, Tablet, [facility]/pharmacy #[id number], Partial fill upon patient [...] Need length 99 months Please send to [facility], 01/21/21 13:20:00 EDT, Supply Start Date: 01/21/21 Status: Ordered carbidopa-levodopa 25 mg-100 mg oral tablet 1 tablet, By Mouth, 2 times a day, Rx'd by neurology at [facility], # 60 tablet, 0 Refills, Maintenance, 10/04/22 8:23:00 EDT, Tablet, Partial fill upon patient request if the prescription is for a schedule II opioid drug. Start Date: 10/04/22 Status: Ordered chlorthalidone 25 mg oral tablet 25 mg, 1, tablet, By Mouth, Daily, # 30 tablet, Refills 5, Tot. Refills 5, Maintenance, 11/08/22 8:09:00 EDT, Route to Pharmacy Electronically, [facility]/pharmacy #[id number], Partial fill upon patient request if the [...] 07/01/29 13:12:00 EST, Route to Pharmacy Electronically, [facility]/pharmacy #[id number], 183, cm, 08/22/22 8:28:00 EST,Height, 123.2, [...] DAY NEEDED FOR PAIN, # 100 Gm, 1 Refills, Maintenance, 11/24/22 10:47:00 EDT, [facility]/pharmacy #[id number], 30, APPLY TOPICALLY TO AFFECTED ARE TWICE A DAY NEEDED FOR PAIN, 183, cm, 11/10/22 8:32:0... Start Date: 11/24/22 Status: Ordered doxycycline hyclate 100 mg oral tablet 1 tablet = 100 mg, By Mouth, 2 times a day, # 14 tablet, 0 Refills, Maintenance, 12/03/22 9:09:00 EDT, Tablet, [facility]/pharmacy #[id number], Partial fill upon patient [...] Daily at bedtime, Rx'd by neurology at [facility], 0 Refills, Maintenance, 10/04/22 8:24:00 EDT, Capsule, Partial fill upon patient request if the prescription is for a schedule II opioid drug. Start Date: 10/04/22 Status: Ordered levocetirizine 5 mg oral tablet 1 tablet = 5 mg, By Mouth, Daily in AM, # 30 tablet, 5 Refills, Maintenance, 11/17/22 10:19:00 EDT,Tablet, [facility]/pharmacy #[id number], Label in [place], cetrizine not effective, 1 tablet By Mouth Daily in AM, 183, cm, 11/10/22 8:32:00 EDT, Height, 123.2, kg,... Start Date: 11/17/22 Status: Ordered loratadine 10 mg oral tablet 1, tablet, By Mouth, Daily, PRN, # 90 tablet, Refills 1, NEEDED FOR ALLERGIES, Route to PharmacyElectronically, [facility] STORE [id number], 184, cm, 10/18/21 13:37:00 EDT, Height Start Date: 10/22/21 Status: Ordered Metamucil 3.4 gm/5.2 gm oral powder for reconstitution = 3.4 Gm, By Mouth, 3 times a day, PRN as needed for constipation, # 425 Gm, 11 Refills, Maintenance, 09/12/22 20:51:00 EDT, REC Powder, [facility]/pharmacy #[id number], Partial fill upon patient [...] SMOKING CESSATION, # 40 gum, 0 Refills, [id number], 184, cm, 12/27/21 11:50:00 EDT, Height Start [...] # 180 capsule, 3 Refills, [id number], 90, TAKE 1 CAPSULE BY MOUTH TWICE A DAY, 183, cm, 02/08/22 6:42:00 EDT, Height, 123.2, kg, 02/07/22 12:47:00 EDT, Dry Weight Start Date: 02/09/22 Status: Ordered omeprazole 20 mg oral enteric coated capsule 1 capsule, By Mouth, Daily, # 90 capsule, 0 Refills, Maintenance, 11/24/22 10:47:00 EDT, [id number], 183, cm, 11/10/22 8:32:00 EDT, Height, 123.2, kg, 02/07/22 12:47:00 EDT, Dry Weight Start Date: 11/24/22 Status: Ordered One Touch Ultra 2 Glucose Meter See Instructions, # 1 each, Refills 0, Tot. Refills 0, Maintenance, check BG BID dx: E11., 11/18/22 15:52:00 EDT, Supply, 183, cm, 11/10/22 [...] Gm, 1 Refills, Maintenance, 08/31/22 9:06:00 EDT, [facility]/pharmacy #[id number], 14,DISSOLVE 17 GRAMS IN WATER & DRINK ONCE A DAY UNTIL BM,... Start Date: 08/31/22 Status: Ordered pregabalin 300 mg oral capsule 1 capsule = 300 mg, By Mouth, 2 times a day, Rx'd by neurology at [facility], # 60 capsule, 0 Refills, Maintenance, 10/04/22 8:24:00 EDT, Capsule, Partial fill upon patient request if the prescription is for a schedule II opioid drug. Start Date: 10/04/22 Status: Ordered primidone 50 mg oral tablet 100 mg, 2, tablet, By Mouth, 2 times a day, rx'd by neurology at [facility], # 120 tablet, Refills 0, Maintenance, [...] times a day, Rx'd by neurology at [facility], # 270 tablet, 0 Refills, Maintenance, [...] Maintenance, DX: M51. 26 please send to [facility], 08/08/22 15:41:00 EST, Supply Start Date: 08/08/22 Status: Ordered Symbicort 160mcg/4.5mcg Inhaler 2, puffs, Inhalation, 2 times a day, # 6 Gm, Refills 0, Tot. Refills 0, Maintenance, 12/22/22 21:20:00 EDT, Aerosol, Route to Pharmacy Electronically, [id number], [facility]/pharmacy #[id number], 183, cm, 12/08/22 8:26:00 EDT, Height, [...] 5 Refills, Maintenance, 12/03/22 9:00:00 EDT, Tablet, [facility]/pharmacy #[id number], Partial fill upon patient request if the prescription is for a schedule II opioid drug., 183,... Start Date: 12/03/22 Status: Ordered valsartan 320 mg oral tablet 1 tablet, By Mouth, Daily, # 90 tablet, 3 Refills, Maintenance, 03/15/22 14:29:00 EDT, [id number], 183, cm, 02/08/22 6:42:00 EDT, Height, 123.2, [...] provided increased discomfort related to nerves. 3Seeing [place] neurology and sleep. Given a trial of [...] Care team information Care Team Personnel Name: Dave Mina MD Position: [facility] Physician - Primary Care Member Role: PCP Address: Address: [address] [place] [address]- Name: Olimpia Parker Position: [facility] Office Staff Member Role: Lifetime Consulting Physician Care Team Related Persons Name: JARROD BRADFORD Address: home [address] [place] [address] Name: LOLA BRADFORD Address: home [address] [place] [address] Name: GOLDIE LERMA Address: [place] [address] Name: OLIMPIA LERMA Address: [place] [address] Name: KADE LERMA Address: [address] [place] [id number] Name: KADE LERMA Address: home [address] [place] [id number]
--- OUTSIDE RECORDS SUMMARY | 2023-11-02 08:23 | XMS_ITS | Continuity of Care Document ---
Author Organization [facility] Address [address] [place] [address]- Care Team Providers Care Edge Polisher Name Role Phone Terence PRATHER, Azra Primary Care Physician [place] [facility] Date(s): 07/23/20 - 08/28/20 [facility] [address] [place], [place] [address] Attending Physician: Marcy Fernandez MD Admitting Physician: Marcy Fernandez MD Referring Physician: Quinten Alvarado MD Allergies, [...] 9:51:00 EDT, Route to Pharmacy Electronically, [facility]/pharmacy #[id number], 184, cm, 01/15/20 9:11:00 EDT, Height, 123.27, kg, 06/25/19 13:22:00 EST, Dry Weight Start Date: 01/15/20 Stop Date: 03/15/20 Status: Ordered aspirin 81 mg oral tablet 1 tablet = 81 mg, By Mouth, Daily, # 90 tablet, 3 Refills, Maintenance, 01/15/20 9:51:00 EDT, Tablet, [facility]/pharmacy #[id number], 184, cm, 01/15/20 9:11:00 [...] 9:49:00 EDT, Route to Pharmacy Electronically, [facility]/pharmacy #[id number], 184, cm, 01/29/20 14:16:00 [...] EST, Route to Pharmacy Electronically, [facility]/pharmacy #[id number], 184, cm, 02/28/20 15:58:00 [...] Refills, Maintenance, 01/15/20 9:51:00 EDT, Tablet, [facility]/pharmacy #[id number], 184, cm, 01/15/20 9:11:00 EDT, Height, 123.27, kg, 06/25/19 13:22:00 EST, Dry Weight Start Date: 01/15/20 Stop Date: 03/15/20 Status: Ordered fluticasone 50 mcg/inh nasal spray See Instructions, USE 1 SPRAY IN EACH NOSTRIL EVERY MORNING, # 16 mL, 0 Refills, Maintenance, [facility] STORE [id number], 30, USE 1 SPRAY IN EACH NOSTRIL [...] 2 Refills, Maintenance, 01/27/20 10:39:00 EDT, Capsule, [facility]/pharmacy #[id number], 184, cm, 01/15/20 9:52:00 EDT, Height, 123.27, kg, 06/25/19 13:22:00 EST, Dry Weight Start Date: 01/27/20 Stop Date: 07/25/20 Status: Ordered metFORMIN 500 mg oral tablet 1 tablet = 500 mg, By Mouth, Daily, with meals, # 90 tablet, 11 Refills, Maintenance, 03/02/20 9:56:00 EDT, Tablet, [facility]/pharmacy #[id number], 184, cm, 02/28/20 15:58:00 EDT, Height, 123.27, kg, 06/25/19 13:22:00 EST, Dry Weight Start Date: 03/02/20 Status: Ordered omeprazole 20 mg oral enteric coated capsule 1 capsule = 20 mg, By Mouth, Daily, # 30 capsule, 2 Refills, Maintenance, 02/06/20 16:40:00 EDT, ECCapsule, [facility]/pharmacy #[id number], 184, cm, 01/29/20 14:16:00 [...] provided increased discomfort related to nerves. 3Seeing [place] neurology and sleep. Given a trial of Tegretol 200 mg upto 2 tablets twice a day andadvised to continue with Lyrica 300 mg twice a day. Had some improvement of the facial pain with this regimen. 4Seeing [place] neurology and asleep. On 09/11/2018 started on [...]
--- OUTSIDE RECORDS SUMMARY | 2023-11-02 08:23 | XMS_ITS | Continuity of Care Document ---
Author Organization [facility] Address [address] [place] [address]- Care Team Providers Care Yacht Rigger Name Role Phone Ivone Oneil MD Primary Care Physician [phone] Encounter [facility] Date(s): 11/30/21 - 01/01/[address] [address]- Attending Physician: Ivone Oneil MD Admitting Physician: Ivone Oneil MD Referring Physician: Contractor Krystal FERNANDEZ Allergies, [...] acel(Tdap) 11/25/14 Given 1Result Comment: DILUENT LOT#: [id number] EXP: 11/2022 MFG: FRESENSIUS Medications amitriptyline 100 mg oral tablet 1 tablet = 100 mg, By Mouth, Daily at bedtime, # 30 tablet, 3 Refills, Maintenance, 12/27/21 12:09:00 EDT, Tablet, [facility]/pharmacy #[id number], Partial fill upon patient request if [...] 3 Refills, Maintenance, 03/03/21 17:24:00 EDT, Tablet, [facility]/pharmacy #[id number], Partial fill upo... Start Date: 03/03/21 Status: Ordered aspirin 81 mg oral delayed release tablet 81 mg, 1, tablet, By Mouth, Daily, # 90 tablet, Refills 0, Tot. Refills 0, Maintenance, 01/01/21 11:26:00 EDT, Route to Pharmacy Electronically, [facility]/pharmacy #[id number], Partial fill upon patient request if the prescription is for a schedule II opioid drug... Start Date: 01/01/21 Status: Ordered atorvastatin 20 mg oral tablet 1 tablet = 20 mg, By Mouth, Daily, # 90 tablet, 1 Refills, Maintenance, 11/29/21 14:23:00 EDT, Tablet, [facility]/pharmacy #[id number], Partial fill upon patient request if [...] Need length 99 months Please send to [email or web address], 01/21/21 13:20:00 EDT, Supply Start Date: 01/21/21 Status: Ordered chlorthalidone 25 mg oral tablet 1, tablet, By Mouth, Daily, # 30 tablet, Refills 5, Tot. Refills 5, 09/28/21 8:08:00 EDT, Route to Pharmacy Electronically, [facility]/pharmacy #[id number], 184, cm, 09/15/21 9:12:00 EDT, Height Start Date: 09/28/21 Status: Ordered clonazePAM 2 mg oral tablet See Instructions, 1 tablet by mouth only NEEDED for severe panic attack. Dispense: #20 tabs per 20d., # 20 tablet, 0 Refills, Maintenance, 08/18/21 15:21:00 EST, Tablet, [facility]/pharmacy #[id number], Partial fill upon patient request if [...] 07/17/26 13:12:00 EST, Route to Pharmacy Electronically, [facility]/pharmacy #[id number], 184, cm, 07/26/21 9:11:00 EST, Height Start Date: 07/17/26 Stop Date: 07/01/29 Status: Ordered cyanocobalamin 1000 mcg oral tablet 1,000 mcg, 1, tablet, By Mouth, Daily, for 90 days, # 90 tablet, Refills 11, Tot. Refills 11, Hard Stop 07/17/26 13:12:00 EST, 08/02/23 13:12:00 EST, Route to Pharmacy Electronically, [facility]/pharmacy #[id number], 184, cm, 01/01/21 10:56:00 EDT, Height, [...] 1, NEEDED FOR ALLERGIES, Route to PharmacyElectronically, [facility] STORE [id number], 184, cm, 10/18/21 13:37:00 EDT, Height Start Date: 10/22/21 Status: Ordered magnesium oxide 400 mg oral tablet 1 tablet = 400 mg, By Mouth, Daily, Rx'd by Neurology at [facility] [place]/ Dr. Murphy, 0 Refills, Maintenance, 04/15/21 23:30:00 [...] 11:13:00 EST, 10/28/21 11:13:00 EDT, REC Powder, [facility]/pharmacy #[id number], Partial fill upon patient request if [...] tablet, 3 Refills, Maintenance, 09/16/2211:15:00 EDT, Tablet, [facility]/pharmacy #[id number], Partial f... Start Date: 09/15/21 Status: Ordered Mucinex DM oral tablet, extended release 1 tablet, By Mouth, Every 12 hours, for 14 days, # 28 tablet, 0 Refills, Acute 01/10/22 12:44:00 EDT, 12/27/21 12:44:00 EDT, ER Tablet, [facility]/pharmacy #[id number], Partial fill upon patient request if the prescription is for a schedule II opioid drug., 1 tabl... Start Date: 12/27/21 Stop Date: 01/10/22 Status: Ordered omega-3 polyunsaturated fatty acids ethyl esters 1000 mg oral capsule 1 capsule = 1,000 mg, By Mouth, 2 times a day, # 60 capsule, 11 Refills, Maintenance, 12/27/21 11:25:00 EDT, Capsule, [id number], 1 capsule [...] Maintenance, DX: M51. 26 please send to [facility], 01/21/21 13:20:00 EDT, Supply Start Date: 01/21/21 Status: Ordered Symbicort 160mcg/4.5mcg Inhaler 2, puffs, Inhalation, 2 times a day, # 6 Gm, Refills 0, Tot. Refills 0, Maintenance, 12/27/21 12:43:00 EDT, Aerosol, Route to Pharmacy Electronically, [id number], [facility]/pharmacy #[id number], 184, cm, 12/27/21 11:50:00 EDT, Height Start Date: 12/27/21 Status: Ordered Tylenol Extra Strength 500 mg oral tablet 2 tablet = 1,000 mg, By Mouth, 3 times a day, PRN as needed for pain, # 100 tablet, 5 Refills, Maintenance, 12/07/21 10:44:00 EDT, Tablet, [facility]/pharmacy #[id number], Partial fill upon patient request if [...] provided increased discomfort related to nerves. 3Seeing [place] neurology and sleep. Given a trial of Tegretol 200 mg upto 2 tablets twice a day andadvised to continue with Lyrica 300 mg twice a day. Had some improvement of the facial pain with this regimen. 4Seeing [place] neurology and asleep. On 09/11/2018 started on [...]
--- OUTSIDE RECORDS SUMMARY | 2023-11-02 08:23 | XMS_ITS | Continuity of Care Document ---
Author Organization [facility] Address [address] [place], [place] [address]raven rodriguez, [address] [place] [address]- Care Team Providers Care Racing Secretary Name Role Phone Terence PRATHER, Azra Primary Care Physician Encounter [facility] Date(s): 03/03/20 - 04/02/20 [facility] [address] [place] [address] Drive, [address] [place] [address]- [facility] Allergies, Adverse Reactions, Alerts Substance Reaction Severity [...] 01/15/20 9:51:00 EDT, Route to Pharmacy Electronically, [facility]/pharmacy #[id number], 184, cm, 01/15/20 9:11:00 EDT, Height, 123.27, kg, 06/25/19 13:22:00 EST, Dry Weight Start Date: 01/15/20 Stop Date: 03/15/20 Status: Ordered aspirin 81 mg oral tablet 1 tablet = 81 mg, By Mouth, Daily, # 90 tablet, 3 Refills, Maintenance, 01/15/20 9:51:00 EDT, Tablet, [facility]/pharmacy #[id number], 184, cm, 01/15/20 9:11:00 [...] 02/07/20 9:49:00 EDT, Route to Pharmacy Electronically, [facility]/pharmacy #[id number], 184, cm, 01/29/20 14:16:00 [...] 08/17/20 13:12:00 EST, Route to Pharmacy Electronically, [facility]/pharmacy #[id number], 184, cm, 02/28/20 15:58:00 [...] 3 Refills, Maintenance, 01/15/20 9:51:00 EDT, Tablet, [facility]/pharmacy #[id number], 184, cm, 01/15/20 9:11:00 EDT, Height, 123.27, kg, 06/25/19 13:22:00 EST, Dry Weight Start Date: 01/15/20 Stop Date: 03/15/20 Status: Ordered fluticasone 50 mcg/inh nasal spray See Instructions, USE 1 SPRAY IN EACH NOSTRIL EVERY MORNING, # 16 mL, 0 Refills, Maintenance, [facility] STORE 61202, 30, USE 1 SPRAY IN EACH NOSTRIL [...] provided increased discomfort related to nerves. 3Seeing [place] neurology and sleep. Given a trial of Tegretol 200 mg upto 2 tablets twice a day andadvised to continue with Lyrica 300 mg twice a day. Had some improvement of the facial pain with this regimen. 4Seeing [place] neurology and asleep. On 09/11/2018 started on [...]
--- OUTSIDE RECORDS SUMMARY | 2023-11-02 08:23 | XMS_ITS | Continuity of Care Document ---
Author Organization [facility] Address [address] [place] [address]- Care Team Providers Care Taper Operator Name Role Phone Terence PRATHER, Azra Primary Care Physician Encounter [facility] Date(s): 02/07/20 - 03/08/20 [facility] [address] [place] [address]- [facility] Allergies, Adverse Reactions, Alerts Substance Reaction Severity [...] 01/15/20 9:49:00 EDT, Route to Pharmacy Electronically, [facility]/pharmacy #[id number] Tablet, 184, cm, 01/15/20 9:11... Start Date: 01/15/20 Stop Date: 02/14/20 Status: Ordered amLODIPine 10 mg oral tablet 10 mg, 1, tablet, By Mouth, Daily, # 90 tablet, Refills 3, Tot. Refills 3, Maintenance, 01/15/20 9:51:00 EDT, [id number], cm, 01/15/20 9:11:00 EDT, Height, 123.27, kg, 06/25/19 13:22:00 EST, Dry Weight Start Date: 01/15/20 Stop Date: 03/15/20 Status: Ordered aspirin 81 mg oral tablet 1 tablet = 81 mg, By Mouth, Daily, # 90 tablet, 3 Refills, Maintenance, 01/15/20 9:51:00 EDT, Tablet, [facility]/pharmacy #[id number], 184, cm, 01/15/20 9:11:00 EDT, [...] 02/07/20 9:49:00 EDT, [facility], [id number], 184, cm, 01/29/20 14:16:00 EDT, [...] 08/17/20 13:12:00 EST, [id number], cm, 02/28/20 15:58:00 EDT, [...] 3 Refills, Maintenance, 01/15/20 9:51:00 EDT, Tablet, [facility]/pharmacy #[id number], 184, cm, 01/15/20 9:11:00 EDT, Height, 123.27, kg, 06/25/19 13:22:00 EST, Dry Weight Start Date: 01/15/20 Stop Date: 03/15/20 Status: Ordered fluticasone 50 mcg/inh nasal spray See Instructions, USE 1 SPRAY IN EACH NOSTRIL EVERY MORNING, # 16 mL, 0 Refills, Maintenance, [facility] STORE 12924, 30, USE 1 SPRAY IN EACH NOSTRIL [...] provided increased discomfort related to nerves. 3Seeing [place] neurology and sleep. Given a trial of [...]
--- OUTSIDE RECORDS SUMMARY | 2023-11-02 08:23 | XMS_ITS | Continuity of Care Document ---
Author Organization [facility] Address [address] [place] [address]- Care Team Providers Care Regional Director Of Admissions Name Role Phone Keeley PRATHER, Dave Dash Primary Care Physician [place] [facility] [place]): 12/01/22 - 12/31/[address] [address]- Allergies, Adverse Reactions, Alerts Substance Reaction Severity [...] acel(Tdap) 11/25/14 Given 1Result Comment: DILUENT LOT#: [id number] EXP: 11/2022 MFG: FRESENSIUS Medications amitriptyline 100 mg oral tablet 1 tablet = 100 mg, By Mouth, Daily at bedtime, Rx'd by neurology ([facility]), # 30 tablet, 0 Refills, Maintenance, 12/08/22 [...] 1 Refills, Maintenance, 11/17/22 10:19:00 EDT, Tablet, [id number], Partial fill [...] Need length 99 months Please send to [facility], 01/21/21 13:20:00 EDT, Supply Start Date: 01/21/21 Status: Ordered carbidopa-levodopa 25 mg-100 mg oral tablet 1 tablet, By Mouth, 2 times a day, Rx'd by neurology at [facility], # 60 tablet, 0 Refills, Maintenance, 10/04/22 8:23:00 EDT, Tablet, Partial fill upon patient request if the prescription is for a schedule II opioid drug. Start Date: 10/04/22 Status: Ordered chlorthalidone 25 mg oral tablet 25 mg, 1, tablet, By Mouth, Daily, # 30 tablet, Refills 5, Tot. Refills 5, Maintenance, 11/08/22 8:09:00 EDT, Route to Pharmacy Electronically, [facility]/pharmacy #[id number], Partial fill upon patient request if the [...] 07/01/29 13:12:00 EST, Route to Pharmacy Electronically, [facility]/pharmacy #[id number], 183, cm, 08/22/22 8:28:00 [...] Gm, 1 Refills, Maintenance, 11/24/22 10:47:00 EDT, [facility]/pharmacy #[id number], 30, APPLY TOPICALLY TO AFFECTED ARE TWICE A DAY NEEDED FOR PAIN, 183, cm, 11/10/22 8:32:0... Start Date: 11/24/22 Status: Ordered doxycycline hyclate 100 mg oral tablet 1 tablet = 100 mg, By Mouth, 2 times a day, # 14 tablet, 0 Refills, Maintenance, 12/03/22 9:09:00 EDT, Tablet, [facility]/pharmacy [...] Daily at bedtime, Rx'd by neurology at [facility], 0 Refills, Maintenance, 10/04/22 8:24:00 EDT, Capsule, Partial fill upon patient request if the prescription is for a schedule II opioid drug. Start Date: 10/04/22 Status: Ordered levocetirizine 5 mg oral tablet 1 tablet = 5 mg, By Mouth, Daily in AM, # 30 tablet, 5 Refills, Maintenance, 11/17/22 10:19:00 EDT,Tablet, [facility]/pharmacy #[id number], Label in andorran, cetrizine not effective, 1 tablet By Mouth Daily in AM, 183, cm, 11/10/22 8:32:00 EDT, Height, 123.2, kg,... Start Date: 11/17/22 Status: Ordered loratadine 10 mg oral tablet 1, tablet, By Mouth, Daily, PRN, # 90 tablet, Refills 1, NEEDED FOR ALLERGIES, Route to PharmacyElectronically, [facility] STORE 13133, 184, cm, 10/18/21 13:37:00 EDT, Height Start [...] # 40 gum, 0 Refills, [facility], 184, cm, 12/27/21 11:50:00 EDT, Height Start [...] # 180 capsule, 3 Refills, [facility], 90, TAKE 1 CAPSULE BY MOUTH TWICE [...] times a day, Rx'd by neurology at [facility], # 60 capsule, 0 Refills, Maintenance, 10/04/22 8:24:00 EDT, Capsule, Partial fill upon patient request if the prescription is for a schedule II opioid drug. Start Date: 10/04/22 Status: Ordered primidone 50 mg oral tablet 100 mg, 2, tablet, By Mouth, 2 times a day, rx'd by neurology at [facility], # 120 tablet, Refills 0, Maintenance, 12/08/22 [...] times a day, Rx'd by neurology at [facility], # 270 tablet, 0 Refills, [...] to [facility] [place], 08/08/22 15:41:00 EST, Supply Start Date: 08/08/22 Status: Ordered Symbicort 160mcg/4.5mcg Inhaler 2, puffs, Inhalation, 2 times a day, # 6 Gm, Refills 0, Tot. Refills 0, Maintenance, 12/22/22 21:20:00 EDT, Aerosol, Route to Pharmacy Electronically, [id number], [facility]/pharmacy #[id number], 183, cm, 12/08/22 8:26:00 [...] 5 Refills, Maintenance, 12/03/22 9:00:00 EDT, Tablet, [facility]/pharmacy #[id number], Partial fill upon patient request if the prescription is for a schedule II opioid drug., 183,... Start Date: 12/03/22 Status: Ordered valsartan 320 mg oral tablet 1 tablet, By Mouth, Daily, # 90 tablet, 3 Refills, Maintenance, 03/15/22 14:29:00 EDT, [facility], 183, cm, 02/08/22 6:42:00 EDT, Height, 123.2, [...] provided increased discomfort related to nerves. 3Seeing [facility]y and sleep. Given a trial of [...] Team Personnel Name: Dave Mina MD Position: [facility] Physician - Primary Care Member Role: PCP Address: Address: [address] [place] [address]- Name: Olimpia Parker Position: [facility] Office Staff Member Role: Lifetime Consulting Physician Care Team Related Persons Name: JARROD BRADFORD Address: home [address] [place] [address] Name: LOLA BRADFORD Address: home [address] [place] [address] Name: GOLDIE LERMA Address: [place] [address] Name: OLIMPIA LERMA Address: [place] [address] Name: KADE LERMA Address: home [address] [place] [id number] Name: KADE LERMA Address: home [address] [place] [address]
--- OUTSIDE RECORDS SUMMARY | 2023-11-02 08:24 | XMS_ITS | Continuity of Care Document ---
Author Organization [facility] Address [address] [place] [address]- Care Team Providers Care Housing Liaison Name Role Phone Ivone Oneli MD Primary Care Physician Encounter [facility] Date(s): 05/18/22 - 06/18/[address] [address]- Attending Physician: Ivone Oneil MD Admitting Physician: Ivone Oneil MD Allergies, Adverse Reactions, Alerts Substance Reaction Severity Status penicillin Unknown Active gabapentin Active Flovent HFA Active SEROquel Active traZODone Active hydrOXYzine hydrochloride Ac tive Lantus Active ZyrTEC Active Ventolin HFA Active Immunizations Given and [...] acel(Tdap) 11/25/14 Given 1Result Comment: DILUENT LOT#: [id number] EXP: 11/2022 MFG: FRESENSIUS Medications amitriptyline 100 [...] residual AHI. Dx: KERMIT (G47... Start Date: 1/9/17 Status: Ordered Blood Pressure Monitor See Instructions, [...] Need length 99 months Please send to [facility], 01/21/21 13:20:00 EDT, Supply Start [...] capsule, 0 Refills, Maintenance,03/11/22 9:32:00 EDT, Capsule, [facility]/pharmacy #[id number], Patient reports that he is not allergic [...] 0 Refills, Maintenance, 08/18/21 15:21:00 EST, Tablet, [facility]/pharmacy #[id number], Partial fill upon patient [...] 07/17/26 13:12:00 EST, Route to Pharmacy Electronically, [facility]/pharmacy #[id number], 184, cm, 07/26/21 9:11:00 EST, Height Start Date: 07/17/26 Stop Date: 07/01/29 Status: Ordered cyanocobalamin 1000 mcg oral tablet 1,000 mcg, 1, tablet, By Mouth, Daily, for 90 days, # 90 tablet, Refills 11, Tot. Refills 11, Hard Stop 07/17/26 13:12:00 EST, 08/02/23 13:12:00 EST, Route to Pharmacy Electronically, [facility]/pharmacy #[id number], 184, cm, 01/01/21 10:56:00 [...] 5 Refills, Maintenance, 10/07/21 20:16:00 EDT, Tablet, [facility]/pharmacy #[id number], Partial fill upon patient request if the prescription is for a schedule II opioid drug., 184, cm,... Start Date: 10/07/21 Status: Ordered FREESTYLE 28G LANCETS FREESTYLE 28G [...] 1, NEEDED FOR ALLERGIES, Route to PharmacyElectronically, [facility], 184, cm, 10/18/21 13:37:00 EDT, Height Start Date: 10/22/21 Status: Ordered magnesium oxide 400 mg oral tablet 1 tablet = 400 mg, By Mouth, Daily, Rx'd by Neurology at [facility] Alisa Eaton/ Dr. Murphy, 0 Refills, Maintenance, 04/15/21 23:30:00 [...] tablet, 3 Refills, Maintenance, 09/16/2211:15:00 EDT, Tablet, [facility]/pharmacy #[id number], Partial f... Start Date: 09/15/21 Status: Ordered Nicotine 2 mg gum See Instructions, CHEW 1 PIECE OF GUM EVERY 2 HOURS NEEDED FOR SMOKING CESSATION, # 40 gum, 0 Refills, [facility] 23942, 184, cm, 12/27/21 11:50:00 EDT, Height Start Date: 02/01/22 Status: Ordered omega-3 polyunsaturated fatty acids ethyl esters 1000 mg oral capsule 1 capsule, By Mouth, 2 times a day, # 180 capsule, 3 Refills, [facility] 47335, 90, TAKE 1 CAPSULE BY MOUTH TWICE A DAY, 183, cm, 02/08/22 6:42:00 EDT, Height, 123.2, kg, 02/07/22 12:47:00 EDT, Dry Weight Start Date: 02/09/22 Status: Ordered omeprazole 20 mg oral enteric coated capsule 1 capsule, By Mouth, Daily, # 90 capsule, 0 Refills, Maintenance, 05/13/22 14:40:00 EST, [id number], 183, cm, 02/08/22 6:42:00 EDT, Height, 123.2, kg, 02/07/22 12:47:00 EDT, Dry Weight Start Date: 05/13/22 Status: Ordered PAP Supplies - Mask, Tubing, [...] Refills, Maintenance, 03/22/22 8:30:00 EDT, [facility], 14, DISSOLVE 17 GRAMS IN WATER & [...] times a day, Rx'd by Neurology at [facility] Alisa Lazaro/ Dr. Murphy, Refills 0, Maintenance, [...] Maintenance, DX: M51. 26 please send to [facility], 01/21/21 13:20:00 EDT, Supply Start Date: 01/21/21 Status: Ordered Symbicort 160mcg/4.5mcg Inhaler 2, puffs, Inhalation, 2 times a day, # 6 Gm, Refills 0, Tot. Refills 0, Maintenance, 12/27/21 12:43:00 EDT, Aerosol, Route to Pharmacy Electronically, [id number], [facility]/pharmacy #[id number], 184, cm, 12/27/21 11:50:00 EDT, Height Start Date: 12/27/21 Status: Ordered Tylenol Extra Strength 500 mg oral tablet 2 tablet = 1,000 mg, By Mouth, 3 times a day, PRN as needed for pain, # 100 tablet, 5 Refills, Maintenance, 12/07/21 10:44:00 EDT, Tablet, [facility]/pharmacy #1001, Partial fill upon patient request if theprescription is for a schedule II opioid drug., 184... Start Date: 12/07/21 Status: Ordered valsartan 320 mg oral tablet 1 tablet, By Mouth, Daily, # 90 tablet, 3 Refills, Maintenance, 03/15/22 14:29:00 EDT, [facility], 183, cm, 02/08/22 6:42:00 EDT, Height, 123.2, [...] Active Myofascial pain Confirmed Active Obese class II Confirmed Active Obesity (BMI 30-39.9) Confirmed Active [...] provided increased discomfort related to nerves. 3Seeing [facility]y and sleep. Given a trial of Tegretol 200 mg upto 2 tablets twice a day andadvised to continue with Lyrica 300 mg twice a day. Had some improvement of the facial pain with this regimen. 4Seeing [facility] and asleep. On 09/11/2018 started on [...] Care Team Personnel Name: Olimpia Parker Position: [facility] Office Staff Member Role: Lifetime Consulting Physician Name: Ivone Oneil MD Position: [facility] Primary Care Physician Member Role: PCP Address: Address: [address] [place] [address]- Care Team Related Persons Name: JARROD BRADFORD Address: home [address] [place] [address] Name: LOLA BRADFORD Address: home [address] [place] [address] Name: GOLDIE LERMA Address: [place] [address] Name: OLIMPIA LERMA Address: [place] [address] Name: KADE LERMA Address: home [address] [place] [address] Name: KADE LERMA Address: home [address] [place] [id number]
--- OUTSIDE RECORDS SUMMARY | 2023-11-02 08:24 | XMS_ITS | Continuity of Care Document ---
Author Organization [facility] Address [address] [place] [address]- Care Team Providers Care Mediation Commissioner Name Role Phone Contractor Krystal FERNANDEZ Primary Care Physician Encounter [facility] [place] Date(s): 12/19/20 - 01/24/[address] [address] Attending Physician: Shelly Tamez MD Admitting Physician: Shelly Tamez MD Referring Physician: Shelly Tamez MD Allergies, Adverse Reactions, Alerts Substance Reaction [...] 01/27/21 8:00:00 EDT, 11/27/20 10:53:00 EDT, Tablet, [facility]/pharmacy #[id number], Partial fill up... Start Date: 11/27/20 Stop Date: 01/27/21 Status: Ordered amLODIPine 10 mg oral tablet 10 mg, 1, tablet, By Mouth, Daily, # 90 tablet, Refills 3, Tot. Refills 3, Maintenance, 10/30/20 15:08:00 EDT, Route to Pharmacy Electronically, [facility]/pharmacy #[id number], 184, cm, 10/30/20 14:15:00 EDT, Height, 123.27, kg, 06/25/19 13:22:00 EST, Dry Weight Start Date: 10/30/20 Status: Ordered aspirin 81 mg oral delayed release tablet 81 mg, 1, tablet, By Mouth, Daily, # 90 tablet, Refills 0, Tot. Refills 0, Maintenance, 01/01/21 11:26:00 EDT, Route to Pharmacy Electronically, [facility]/pharmacy #[id number], Partial fill upon patient request if the prescription is for a schedule II opioid drug... Start Date: 01/01/21 Status: Ordered aspirin 81 mg oral tablet 1 tablet = 81 mg, By Mouth, Daily, # 90 tablet, 3 Refills, Maintenance, 01/15/20 9:51:00 EDT, Tablet, [facility]/pharmacy #[id number], 184, cm, 01/15/20 9:11:00 EDT, [...] Need length 99 months Please send to [facility], 01/21/21 13:20:00 EDT, Supply Start Date: 01/21/21 Status: Ordered Claritin 10 mg oral tablet 10 mg, 1, tablet, By Mouth, Daily, # 30 tablet, Refills 0, Tot. Refills 0, Maintenance, 02/07/20 9:49:00 EDT, Route to Pharmacy Electronically, [facility]/pharmacy #[id number], 184, cm, 01/29/20 14:16:00 EDT, [...] 08/17/20 13:12:00 EST, Route to Pharmacy Electronically, [facility]/pharmacy #[id number], 184, cm, 02/28/20 15:58:00 EDT, Height, 123.27,... Start Date: 08/17/20 Stop Date: 08/02/23 Status: Ordered cyanocobalamin 1000 mcg oral tablet 1,000 mcg, 1, tablet, By Mouth, Daily, # 90 tablet, Refills 11, Tot. Refills 11, Maintenance, 08/02/23 13:12:00 EST, Route to Pharmacy Electronically, [facility]/pharmacy #[id number], 184, cm, 01/01/21 10:56:00 EDT, [...] 1 Refills, Maintenance, 01/21/21 9:25:00 EDT, Gel, [facility]/pharmacy #[id number], Partial fill upon patientrequest if the prescription is for a schedule II o... Start Date: 01/21/21 Status: Ordered Diovan 320 mg oral tablet 1 tablet = 320 mg, By Mouth, Daily, # 90 tablet, 3 Refills, Maintenance, 01/01/21 11:24:00 EDT, Tablet, [facility]/pharmacy #[id number], 184, cm, 01/01/21 10:56:00 EDT, Height, 123.27, kg, 06/25/19 13:22:00 EST, Dry Weight Start Date: 01/01/21 Status: Ordered docusate sodium 100 mg oral tablet 1 tablet = 100 mg, By Mouth, 2 times a day, PRN for constipation, # 60 tablet, 5 Refills, Maintenance, 01/11/21 15:23:00 EDT, Tablet, [facility]/pharmacy #[id number], Partial fill upon patient request if the prescription is for a schedule II opioid drug., 184, cm,... Start Date: 01/11/21 Status: Ordered fluocinonide 0.05% topical cream See Instructions, 1 application Topically 3 times a day, as needed, for itchy rash. apply a thin film to affected areas, # 30 Gm, 0 Refills, Maintenance, 10/03/20 15:41:00 EDT, Cream, [facility]/pharmacy #[id number], Partial fill upon patient request if the presc... Start Date: 10/03/20 Status: Ordered fluticasone 50 mcg/inh nasal spray See Instructions, USE 1 SPRAY IN EACH NOSTRIL EVERY MORNING, # 16 mL, 0 Refills, Maintenance, [facility] STORE 66852, 30, USE 1 SPRAY IN EACH NOSTRIL [...] 11 Refills, Maintenance, 01/01/21 11:24:00 EDT, Tablet, [facility]/pharmacy #[id number], 184, cm, 01/01/21 10:56:00 EDT, [...] Maintenance, DX: M51. 26 please send to [facility], 01/21/21 13:20:00 EDT, Supply Start Date: 01/21/21 Status: Ordered sulindac 150 mg oral tablet See Instructions, TAKE 1 TABLET BY MOUTH TWICE DAILY NEEDED FOR PAIN, # 28 tablet, 0 Refills, Maintenance, [facility], 184, cm, 12/09/20 11:19:00 EDT, Height, 123.27, [...] provided increased discomfort related to nerves. 3Seeing [place] neurology and sleep. Given a trial of Tegretol 200 mg upto 2 tablets twice a day andadvised to continue with Lyrica 300 mg twice a day. Had some improvement of the facial pain with this regimen. 4Seeing [place] neurology and asleep. On 09/11/2018 started on [...]
--- OUTSIDE RECORDS SUMMARY | 2023-11-02 08:24 | XMS_ITS | Continuity of Care Document ---
Author Organization [facility] Address [address] [place] [address]- Care Team Providers Care Medical Services Coordinator Name Role Phone Ivone Oneil MD Primary Care Physician Encounter [facility] Date(s): 05/24/22 - 06/23/[address] [address]- Allergies, Adverse Reactions, Alerts Substance Reaction Severity Status penicillin Unknown Active gabapentin Active traZODone Active SEROquel Active hydrOXYzine hydrochloride Ac tive Lantus Active [...] acel(Tdap) 11/25/14 Given 1Result Comment: DILUENT LOT#: [id number] EXP: 11/2022 MFG: FRESENSIUS Medications amitriptyline 100 [...] Maintenance, 03/03/21 17:24:00 EDT, Tablet, [facility]/pharmacy #[id number], Partial fill upo... Start Date: [...] 1 Refills, Maintenance, 05/13/22 14:40:00 EST, Tablet, [facility]/pharmacy [...] Need length 99 months Please send to [facility], 01/21/21 [...] 0 Refills, Maintenance,03/11/22 9:32:00 EDT, Capsule, [facility]/pharmacy #[id number], Patient reports that he is not allergic [...] Refills, Maintenance, 10/07/21 20:16:00 EDT, Tablet, [facility]/pharmacy #[id number], Partial fill upon patient request if the [...] 1, NEEDED FOR ALLERGIES, Route to PharmacyElectronically, [facility] STORE 47216, 184, cm, 10/18/21 13:37:00 EDT, Height Start Date: 10/22/21 Status: Ordered magnesium oxide 400 mg oral tablet 1 tablet = 400 mg, By Mouth, Daily, Rx'd by Neurology at [facility] Alisa Hendrix/ Dr. Murphy, 0 Refills, Maintenance, 04/15/21 23:30:00 [...] SMOKING CESSATION, # 40 gum, 0 Refills, [facility] ST[facility] 10136, 184, cm, 12/27/21 11:50:00 EDT, Height Start Date: 02/01/22 Status: Ordered omega-3 polyunsaturated fatty acids ethyl esters 1000 mg oral capsule 1 capsule, By Mouth, 2 times a day, # 180 capsule, 3 Refills, [facility] STORE 09277, 90, TAKE 1 CAPSULE BY MOUTH TWICE A DAY, 183, cm, 02/08/22 6:42:00 EDT, Height, 123.2, kg, 02/07/22 12:47:00 EDT, Dry Weight Start Date: 02/09/22 Status: Ordered omeprazole 20 mg oral enteric coated capsule 1 capsule, By Mouth, Daily, # 90 capsule, 0 Refills, Maintenance, 05/13/22 14:40:00 EST, [facility]/pharmacy #[id number], 183, cm, 02/08/22 6:42:00 EDT, Height, [...] Refills, Maintenance, 03/22/22 8:30:00 EDT, [facility], 14, DISSOLVE 17 GRAMS IN WATER & [...] 12:43:00 EDT, Aerosol, Route to Pharmacy Electronically, [id number], [facility]/pharmacy #[id number], 184, cm, 12/27/21 11:50:00 EDT, Height Start Date: 12/27/21 Status: Ordered Tylenol Extra Strength 500 mg oral tablet 2 tablet = 1,000 mg, By Mouth, 3 times a day, PRN as needed for pain, # 100 tablet, 5 Refills, Maintenance, 12/07/21 10:44:00 EDT, Tablet, [facility]/pharmacy #[id number], Partial fill upon patient request if theprescription is for a schedule II opioid drug., 184... Start Date: 12/07/21 Status: Ordered valsartan 320 mg oral tablet 1 tablet, By Mouth, Daily, # 90 tablet, 3 Refills, Maintenance, 03/15/22 14:29:00 EDT, [facility], 183, cm, 02/08/22 6:42:00 EDT, Height, 123.2, [...] provided increased discomfort related to nerves. 3Seeing [place] neurology and sleep. Given a trial of Tegretol 200 mg upto 2 tablets twice a day andadvised to continue with Lyrica 300 mg twice a day. Had some improvement of the facial pain with this regimen. 4Seeing [place] neurology and asleep. On 09/11/2018 started on [...] Care Team Personnel Name: Olimpia Parker Position: [facility] Office Staff Member Role: Lifetime Consulting Physician Name: Ivone Oneil MD Position: [facility] Primary Care Physician Member Role: PCP Address: Address: [address] [place] [address]- [place] Care Team Related Persons Name: JARROD BRADFORD Address: home [address] [place] [address] Name: LOLA BRADFORD Address: home [address] [place] [address] Name: GOLDIE LERMA Address: [place] [address] Name: OLIMPIA LERMA Address: [place] [address] Name: KADE LERMA Address: home [address] [place] [id number] Name: KADE LERMA Address: home [address] [place] [id number]
--- OUTSIDE RECORDS SUMMARY | 2023-11-02 08:24 | XMS_ITS | Continuity of Care Document ---
Author Organization [facility] Address [address] [place] [address]- Care Team Providers Care Business Support Liaison Name Role Phone Dayo Castano MD Primary Care Physician Encounter [facility] Date(s): 05/30/23 - 06/29/[address] [address]- Allergies, Adverse Reactions, Alerts Substance Reaction Severity [...] influenza virus vaccine, inactivated 04/16/15 Give n [id number] 12y+ bivalent booster vax 02/21/23 Given SARS-CoV-2 (COVID-19) mRNA BNT-162b2 vac 1 06/01/21 Given SARS-CoV-2 (COVID-19) mRNA BNT-162b2 vac 11/07/20 Recorded SARS-CoV-2 (COVID-19) mRNA BNT-162b2 vac 10/17/20 Recorded zoster vaccine, inactivated 06/18/19 Recorded zoster vaccine, inactivated 06/17/19 Recorded zoster vaccine, inactivated 11/25/17 Recorded Influenza Vaccine (oldterm) 02/17/17 Recorded pneumococcal 23-valent vaccine 02/16/16 Given tetanus/diphtheria/pertussis, acel(Tdap) 11/25/14 Given 1Result Comment: DILUENT LOT#: [id number] EXP: 11/2022 MFG: FRESENSIUS Medications Albuterol (Eqv-ProAir [...] Daily at bedtime, Rx'd by neurology ([facility]), # 30 tablet, 0 Refills, Maintenance, [...] 3 Refills, Maintenance, 04/04/23 8:44:00 EDT, Tablet, [facility]/pharmacy #[id number], Partial fill upon patient request [...] Need length 99 months Please send to [place] [facility], 01/21/21 13:20:00 EDT, Supply Start Date: 01/21/21 Status: Ordered carbidopa-levodopa 25 mg-100 mg oral tablet 1 tablet, By Mouth, 2 times a day, Rx'd by neurology at [facility], # 60 tablet, 0 [...] 04/04/23 8:45:00 EDT, Route to Pharmacy Electronically, [facility]/pharmacy #[id number], Partial fill upon patient request [...] 04/04/23 8:46:00 EDT, Route to Pharmacy Electronically, [facility]/pharmacy #[id number], 183, cm, 04/04/23 8:24:00 EDT, [...] Gm, 5 Refills, Maintenance, 01/26/23 9:21:00 EDT, [facility]/pharmacy #[id number], 30, APPLY TOPICALLY TO AFFECTED ARE TWICEA DAY NEEDED FOR PAIN, 183, cm, 01/26/23 9:04:00... Start Date: 01/26/23 Status: Ordered diclofenac sodium 75 mg oral delayed release tablet 1 tablet = 75 mg, By Mouth, 2 times a day, PRN Pain , Severe, STOP DICLOFENAC GEL. Do not take daily. Try to take sparingly as needed., # 28 tablet, 0 Refills, Maintenance, 06/27/23 12:12:00 EST, EC Tablet, [facility]/pharmacy #[id number], Partial fill upon patie... Start Date: 06/27/23 Status: Ordered Epsom Salt Epsom Salt, See [...] 0 Refills, Maintenance, 05/05/23 9:15:00 EST, Tablet, [facility]/pharmacy #[id number], Partial fill upon patient request [...] Daily at bedtime, Rx'd by neurology at [facility], 0 Refills, Maintenance, 10/04/22 8:24:00 EDT, Capsule, Partial fill upon patient request if the prescription is for a schedule II opioid drug. Start Date: 10/04/22 Status: Ordered loratadine 10 mg oral tablet 1, tablet, By Mouth, Daily, PRN, # 90 tablet, Refills 3, Tot. Refills 3, NEEDED FOR ALLERGIES, 04/04/23 8:42:00 EDT, Route to Pharmacy Electronically, [facility]/pharmacy #[id number], 183, cm, 04/04/23 8:24:00EDT, Height, 123.2, kg, 02/07/22 12:47:00 EDT, Dry... Start Date: 04/04/23 Status: Ordered Metamucil 3.4 gm/5.2 gm oral powder for reconstitution = 3.4 Gm, By Mouth, 3 times a day, PRN as needed for constipation, # 425 Gm, 11 Refills, Maintenance, 09/12/22 20:51:00 EDT, REC Powder, [facility]/pharmacy #[id number], Partial fill upon patient request [...] SMOKING CESSATION, # 40 gum, 0 Refills, [facility]ORE [id number], 184, cm, 12/27/21 11:50:00 EDT, Height Start [...] Stop 03/29/24 8:46:00 EDT, 04/04/23 8:46:00 EDT, [facility]/pharmacy #[id number], 1 capsule By Mouth 2 [...] Gm, 1 Refills, Maintenance, 04/04/23 8:46:00 EDT, [facility]/pharmacy #[id number], 14,DISSOLVE 17 GRAMS IN WATER & DRINK ONCE A DAY UNTIL BM,... Start Date: 04/04/23 Status: Ordered pregabalin 300 mg oral capsule 1 capsule = 300 mg, By Mouth, 2 times a day, Rx'd by neurology at [facility], # 60 capsule, 0 Refills, Maintenance, 10/04/22 8:24:00 EDT, Capsule, Partial fill upon patient request if the prescription is for a schedule II opioid drug. Start Date: 10/04/22 Status: Ordered primidone 50 mg oral tablet 100 mg, 2, tablet, By Mouth, 2 times a day, rx'd by neurology at [facility], # 120 tablet, Refills 0, [...] times a day, Rx'd by neurology at [facility], # 270 tablet, 0 [...] Maintenance, DX: M51. 26 please send to [facility], 08/08/22 15:41:00 EST, Supply Start Date: 08/08/22 Status: Ordered Symbicort 160mcg/4.5mcg Inhaler 2, puffs, Inhalation, 2 times a day, # 6 Gm, Refills 11, Tot. Refills 11, Maintenance, 04/04/23 8:44:00 EDT, Aerosol, Route to Pharmacy Electronically, [id number], [facility]/pharmacy #[id number], 183, cm, 04/04/23 8:24:00 EDT, [...] 11 Refills, Maintenance, 04/04/23 8:43:00 EDT, Tablet, [facility]/pharmacy #[id number], Partial fill upon patient request if theprescription is for a schedule II opioid drug., 183... Start Date: 04/04/23 Status: Ordered valsartan 320 mg oral tablet 1 tablet, By Mouth, Daily, blood pressure, # 90 tablet, 3 Refills, Maintenance, 04/04/23 8:46:00 EDT, [facility]/pharmacy #[id number], 183, cm, 04/04/23 8:24:00 EDT, Height, 123.2, kg, 02/07/22 12:47:00 EDT, Dry Weight Start Date: 04/04/23 Status: Ordered Xopenex HFA 45 mcg/inh inhalation aerosol 2 puffs, Inhalation, Every 4 hours, PRN Wheezing/Shortness of Breath, replaces Ventolin due to reaction, # 1 each, 1 Refills, Maintenance, 02/15/23 11:23:00 EDT, Aerosol, [facility]/pharmacy #[id number], Partial fill upon patient request [...] provided increased discomfort related to nerves. 3Seeing [place] neurology and sleep. Given a trial of [...] Care Team Personnel Name: Olimpia Parker Position: [facility]UAN Office Staff Member Role: Lifetime Consulting Physician Name: Dayo Castano MD Position: [facility] Physician - Primary Care Member Role: PCP Address: Address: [address] [place] [address]- Care Team Related Persons Name: JARROD BRADFORD Address: home [address] [place] [address] Name: LOLA BRADFORD Address: home [address] [place] [address] Name: GOLDIE LERMA Address: [place] [address] Name: OLIMPIA LERMA Address: [place] [address] Name: KADE ELRMA Address: [address] [place] [address] Name: KADE LERMA Address: home [address] [place] [address]
--- OUTSIDE RECORDS SUMMARY | 2023-11-02 08:24 | XMS_ITS | Continuity of Care Document ---
Author Organization [facility] Address [address] [place] [address]- Care Team Providers Care Stand Grinder Name Role Phone Contractor Krystal FERNANDEZ Primary Care Physician Encounter [facility] Date(s): 06/09/21 - 07/15/[address] [address] Attending Physician: Not on Staff, Attending [...] acel(Tdap) 11/25/14 Given 1Result Comment: DILUENT LOT#: [id number] EXP: 11/2022 MFG: FRESENSIUS Medications amitriptyline 100 mg oral tablet 1 tablet = 100 mg, By Mouth, Daily at bedtime, # 30 tablet, 3 Refills, Maintenance, 04/13/21 10:02:00 EDT, Tablet, [facility]/pharmacy #[id number], Partial fill upon patient request [...] 3 Refills, Maintenance, 03/03/21 17:24:00 EDT, Tablet, [facility]/pharmacy #[id number], Partial fill upo... Start Date: 03/03/21 Status: Ordered aspirin 81 mg oral delayed release tablet 81 mg, 1, tablet, By Mouth, Daily, # 90 tablet, Refills 0, Tot. Refills 0, Maintenance, 01/01/21 11:26:00 EDT, Route to Pharmacy Electronically, [facility]/pharmacy #[id number], Partial fill upon patient request [...] Need length 99 months Please send to [facility], 01/21/21 13:20:00 EDT, Supply Start Date: 01/21/21 Status: Ordered carbidopa-levodopa 25 mg-100 mg oral tablet 1 tablet, By Mouth, 3 times a day, [facility] Dr. Murphy, # 270 tablet, 0 Refills, Maintenance, 04/15/21 23:30:00 EDT, Tablet, Partial fill upon patient request if the prescription is for a schedule II opioid drug. Start Date: 04/15/21 Status: Ordered chlorthalidone 25 mg oral tablet 1, tablet, By Mouth, Daily, # 30 tablet, Refills 5, Route to Pharmacy Electronically, [facility] [id number], 184, cm, 03/30/21 16:08:00 EDT, Height, 123.27, kg, 06/25/19 13:22:00 EST, Dry Weight Start Date: 04/07/21 Status: Ordered Claritin 10 mg oral tablet 10 mg, 1, tablet, By Mouth, Daily, more sea necesario para alergia, # 30 tablet, Refills 5, Tot. Refills 5, Maintenance, 04/13/21 10:04:00 EDT, Route to Pharmacy Electronically, [facility]/pharmacy #[id number], 184, cm, 04/13/21 9:26:00 EDT, Height, 123.27, kg, 01... Start Date: 04/13/21 Status: Ordered clonazePAM 2 mg oral tablet See Instructions, 1 tablet by mouth only NEEDED for severe panic attack. Dispense: #20 tabs per 30d., # 20 tablet, 0 Refills, Maintenance, 07/15/21 14:39:00 EST, Tablet, [facility]/pharmacy #[id number], Partial fill upon patient request [...] 0 Refills, Maintenance, 03/03/21 17:36:00 EDT, Cream, [facility]/pharmacy #[id number], Partial fill upon patient request if the prescription is for a schedule II opioid drug., 1 application Topically 3 ti... Start Date: 03/03/21 Status: Ordered cyanocobalamin 1000 mcg oral tablet 1,000 mcg, 1, tablet, By Mouth, Daily, # 90 tablet, Refills 11, Tot. Refills 11, Maintenance, 08/02/23 13:12:00 EST, Route to Pharmacy Electronically, [facility]/pharmacy #[id number], 184, cm, 01/01/21 10:56:00 EDT, [...] 5 Refills, Maintenance, 01/11/21 15:23:00 EDT, Tablet, [facility]/pharmacy #[id number], Partial fill upon patient request if the prescription is for a schedule II opioid drug., 184, cm,... Start Date: 01/11/21 Status: Ordered escitalopram 20 mg oral tablet 1 tablet = 20 mg, By Mouth, Daily, # 30 tablet, 3 Refills, Maintenance, 07/13/21 12:26:00 EST, Tablet, [facility]/pharmacy #[id number], d/c citalopram 10 mg, 184, cm, 06/14/21 11:01:00 EST, Height Start Date: 07/13/21 Status: Ordered fluticasone 50 mcg/inh nasal spray See Instructions, USE 1 SPRAY IN EACH NOSTRIL EVERY MORNING, # 16 mL, 3 Refills, 01/29/21 9:11:00 EDT, [facility]/pharmacy #[id number], 30, USE 1 SPRAY IN [...] 2 Refills, Maintenance, 02/10/21 13:09:00 EDT, Ointment, [facility]/pharmacy #[id number], Partial fill upon patient request if the prescription is for a schedule II opioid drug., 1 application Top... Start Date: 02/10/21 Status: Ordered magnesium oxide 400 mg oral tablet 1 tablet = 400 mg, By Mouth, Daily, [facility] [place]/ Dr. Murphy, 0 Refills, Maintenance, 04/15/21 23:30:00 [...] 3 Refills, Maintenance, 03/03/21 17:29:00 EDT, Tablet, [facility]/pharmacy #[id number], Partial fill upon p... Start Date: 03/03/21 Status: Ordered nicotine 21 mg/24 hr transdermal film, extended release 1 patch, Topically, Daily, for 6 week(s), Rx in [place], # 42 patch, 1 Refills, Acute 08/16/21 [...] # 90 capsule, 0 Refills, [id number], 184, cm, 06/14/21 11:01:00 EST, Height, 123.27, [...] 28 tablet, 0 Refills, Maintenance, [facility], 184, cm, 02/01/21 10:51:00 EDT, Height, 123.27, kg, 06/25/19 13:22:00 EST, Dry Weight Start Date: 02/01/21 Status: Ordered Tylenol Extra Strength 500 mg oral tablet 2 tablet = 1,000 mg, By Mouth, 3 times a day, PRN as needed for pain, # 100 tablet, 5 Refills, Maintenance, 04/13/21 10:08:00 EDT, Tablet, [facility]/pharmacy #[id number], Partial fill upon patient request [...] provided increased discomfort related to nerves. 3Seeing [place] neurology and sleep. Given a trial of Tegretol 200 mg upto 2 tablets twice a day andadvised to continue with Lyrica 300 mg twice a day. Had some improvement of the facial pain with this regimen. 4Seeing [place] neurology and asleep. On 09/11/2018 started on [...]
--- OUTSIDE RECORDS SUMMARY | 2023-11-02 08:24 | XMS_ITS | Continuity of Care Document ---
Author Organization [facility] Address [address] [place] [address]- Care Team Providers Care Director Facilities Maintenance Name Role Phone Terence PRATHER, Azra Primary Care Physician [phone] Encounter [facility] Date(s): 08/03/20 - 09/06/[address] [address] Attending Physician: Quinten Alvarado MD Admitting Physician: Quinten Alvarado MD Allergies, Adverse Reactions, [...] 9:51:00 EDT, [facility] [...] 9:49:00 EDT, [facility] [...] # 16 mL, 0 Refills, Maintenance, [id number], 30, USE 1 SPRAY IN EACH NOSTRIL [...] 2 Refills, Maintenance, 01/27/20 10:39:00 EDT, Capsule, [facility]/pharmacy #[id number], 184, cm, 01/15/20 9:52:00 EDT, Height, 123.27, kg, 06/25/19 13:22:00 EST, Dry Weight Start Date: 01/27/20 Stop Date: 07/25/20 Status: Ordered metFORMIN 500 mg oral tablet 1 tablet = 500 mg, By Mouth, Daily, with meals, # 90 tablet, 11 Refills, Maintenance, 03/02/20 9:56:00 EDT, Tablet, [facility]/pharmacy #[id number], [...] provided increased discomfort related to nerves. 3Seeing [place] neurology and sleep. Given a trial of Tegretol 200 mg upto 2 tablets twice a day andadvised to continue with Lyrica 300 mg twice a day. Had some improvement of the facial pain with this regimen. 4Seeing [place] neurology and asleep. On 09/11/2018 started on [...]
--- OUTSIDE RECORDS SUMMARY | 2023-11-02 08:24 | XMS_ITS | Continuity of Care Document ---
Author Organization [facility] Address [address] [place] [address]- Care Team Providers Care Crime Lab Technician Name Role Phone Ivone Oneil MD Primary Care Physician Encounter [facility] Date(s): 12/09/21 - 01/21/[address] [address]- Attending Physician: Not on Staff, Attending MD [...] acel(Tdap) 11/25/14 Given 1Result Comment: DILUENT LOT#: [id number] EXP: 11/2022 MFG: FRESENSIUS Medications amitriptyline 100 [...] 3 Refills, Maintenance, 03/03/21 17:24:00 EDT, Tablet, [facility]/pharmacy #[id number], Partial fill upo... Start [...] Need length 99 months Please send to [place] [facility], 01/21/21 13:20:00 EDT, Supply Start Date: 01/21/21 Status: Ordered chlorthalidone 25 mg oral tablet 1, tablet, By Mouth, Daily, # 30 tablet, Refills 5, Tot. Refills 5, 09/28/21 8:08:00 EDT, Route to Pharmacy Electronically, [facility]/pharmacy #[id number], 184, cm, 09/15/21 9:12:00 EDT, Height Start Date: 09/28/21 Status: Ordered clonazePAM 2 mg oral tablet See Instructions, 1 tablet by mouth only NEEDED for severe panic attack. Dispense: #20 tabs per 20d., # 20 tablet, 0 Refills, Maintenance, 08/18/21 15:21:00 EST, Tablet, [facility]/pharmacy #[id number], Partial fill [...] 07/17/26 13:12:00 EST, Route to Pharmacy Electronically, [facility]/pharmacy #[id number], 184, cm, 07/26/21 9:11:00 EST, Height [...] 0 Refills, Maintenance, 12/09/21 15:41:00 EDT, Gel, [facility]/pharmacy #[id number], Partial fill upon patient request if the prescription is for a schedule... Start Date: 12/09/21 Stop Date: 12/16/21 Status: Ordered diclofenac 1% topical gel 1 application, Topically, 4 times a day, PRN Pain , Moderate, # 100 Gm, 1 Refills, Maintenance, 11/12/21 8:44:00 EDT, Gel, [facility]/pharmacy #[id number], Partial fill upon patient request if the prescription isfor a schedule II opioid drug., 184, cm, 11/05/21 9... Start Date: 11/12/21 Status: Ordered docusate sodium 100 mg oral tablet 1 tablet = 100 mg, By Mouth, 2 times a day, PRN for constipation, # 60 tablet, 5 Refills, Maintenance, 10/07/21 20:16:00 EDT, Tablet, [facility]/pharmacy #[id number], Partial [...] 1, NEEDED FOR ALLERGIES, Route to PharmacyElectronically, [facility], 184, cm, 10/18/21 13:37:00 EDT, Height Start Date: 10/22/21 Status: Ordered magnesium oxide 400 mg oral tablet 1 tablet = 400 mg, By Mouth, Daily, [facility] Dr. Murphy, 0 Refills, Maintenance, 04/15/21 23:30:00 [...] 11:13:00 EST, 10/28/21 11:13:00 EDT, REC Powder, [facility]/pharmacy #[id number], Partial fill upon [...] tablet, 3 Refills, Maintenance, 09/16/2211:15:00 EDT, Tablet, [facility]/pharmacy #[id number], Partial f... Start Date: 09/15/21 Status: Ordered Mucinex DM oral tablet, extended release 1 tablet, By Mouth, Every 12 hours, for 14 days, # 28 tablet, 0 Refills, Acute 01/24/22 12:44:00 EDT, 01/10/22 12:44:00 EDT, ER Tablet, [facility]/pharmacy #[id number], Partial fill upon patient request if the prescription is for a schedule II opioid drug., 1 tabl... Start Date: 01/10/22 Stop Date: 01/24/22 Status: Ordered omega-3 polyunsaturated fatty acids ethyl [...] please send to [facility], 01/21/21 13:20:00 EDT, Supply Start Date: 01/21/21 Status: Ordered Symbicort 160mcg/4.5mcg Inhaler 2, puffs, Inhalation, 2 times a day, # 6 Gm, Refills 0, Tot. Refills 0, Maintenance, 12/27/21 12:43:00 EDT, Aerosol, Route to Pharmacy Electronically, [id number], [id number], 184, cm, 12/27/21 11:50:00 EDT, Height Start Date: 12/27/21 Status: Ordered Tylenol Extra Strength 500 mg oral tablet 2 tablet = 1,000 mg, By Mouth, 3 times a day, PRN as needed for pain, # 100 tablet, 5 Refills, Maintenance, 12/07/21 10:44:00 EDT, Tablet, [facility]/pharmacy #[id number], Partial [...]
--- OUTSIDE RECORDS SUMMARY | 2023-11-02 08:24 | XMS_ITS | Continuity of Care Document ---
Author Organization [facility] Address [address] [place] [address]- Care Team Providers Care Career Agent Name Role Phone Contractor Krystal FERNANDEZ Primary Care Physician Encounter [facility] Date(s): 01/27/21 - 02/27/[address] [address]- Attending Physician: Ivone Oneil MD Admitting Physician: [...] 10/30/20 15:08:00 EDT, Route to Pharmacy Electronically, [facility]/pharmacy #[id number], 184, cm, 10/30/20 14:15:00 EDT, Height, 123.27, kg, 06/25/19 13:22:00 EST, Dry Weight Start Date: 10/30/20 Status: Ordered aspirin 81 mg oral delayed release tablet 81 mg, 1, tablet, By Mouth, Daily, # 90 tablet, Refills 0, Tot. Refills 0, Maintenance, 01/01/21 11:26:00 EDT, Route to Pharmacy Electronically, [facility]/pharmacy #[id number], Partial fill [...] Need length 99 months Please send to [place] [facility], 01/21/21 13:20:00 EDT, Supply Start Date: [...] Maintenance, DX: M51. 26 please send to [facility], 01/21/21 13:20:00 EDT, Supply Start Date: 01/21/21 Status: Ordered sulindac 150 mg oral tablet See Instructions, TAKE 1 TABLET BY MOUTH TWICE A DAY NEEDED FOR PAIN, # 28 tablet, 0 Refills, Maintenance, [facility], 184, cm, 02/01/21 10:51:00 EDT, Height, 123.27, [...] 0 Refills, Maintenance, 02/18/21 8:37:00 EDT, Tablet, [facility]/pharmacy #[id number], Partial fill upon patient request if the [...] provided increased discomfort related to nerves. 3Seeing [place] neurology and sleep. Given a trial of Tegretol 200 mg upto 2 tablets twice a day andadvised to continue with Lyrica 300 mg twice a day. Had some improvement of the facial pain with this regimen. 4Seeing [place] neurology and asleep. On 09/11/2018 started on [...]
--- OUTSIDE RECORDS SUMMARY | 2023-11-02 08:24 | XMS_ITS | Continuity of Care Document ---
Author Organization [facility] Address [address] [place] [address]- Care Team Providers Care Snow Blower Name Role Phone Contractor Krystal FERNANDEZ Primary Care Physician [phone] Encounter [facility] Date(s): 11/15/21 - 12/15/21 [facility] [address], [place] [address] Attending Physician: Cristian Padilla Admitting Physician: AdmtrCristian Referring Physician: Admtr, Ar8 [...] acel(Tdap) 11/25/14 Given 1Result Comment: DILUENT LOT#: [id number] EXP: 11/2022 MFG: FRESENSIUS Medications amitriptyline 100 [...] Need length 99 months Please send to [place] [facility], 01/21/21 13:20:00 EDT, Supply Start Date: 01/21/21 Status: Ordered carbidopa-levodopa 25 mg-100 mg oral tablet 1 tablet, By Mouth, 3 times a day, Rx'd by Neurology at [facility]/ Dr. Murphy, # 270 tablet, 0 Refills, Maintenance, 04/15/21 23:30:00 EDT, Tablet, Partial fill upon patient request if the prescription is for a schedule II opioid drug. Start Date: 04/15/21 Status: Ordered chlorthalidone 25 mg oral tablet 1, tablet, By Mouth, Daily, # 30 tablet, Refills 5, Tot. Refills 5, 09/28/21 8:08:00 EDT, Route to Pharmacy Electronically, [facility]/pharmacy #[id number], 184, cm, 09/15/21 9:12:00 EDT, Height Start Date: 09/28/21 Status: Ordered clonazePAM 2 mg oral tablet See Instructions, 1 tablet by mouth only NEEDED for severe panic attack. Dispense: #20 tabs per 20d., # 20 tablet, 0 Refills, Maintenance, 08/18/21 15:21:00 EST, Tablet, [facility]/pharmacy [...] 0 Refills, Maintenance, 10/07/21 20:16:00 EDT, Cream, [facility]/pharmacy #[id number], Partial fill upon patient request if the prescription is for a schedule II opioid drug., 1 application Topically 3 ti... Start Date: 10/07/21 Status: Ordered cyanocobalamin 1000 mcg oral tablet 1,000 mcg, 1, tablet, By Mouth, Daily, # 90 tablet, Refills 11, Tot. Refills 11, Maintenance, 07/17/26 13:12:00 EST, Route to Pharmacy Electronically, [facility]/pharmacy #[id number], 184, cm, 07/26/21 9:11:00 EST, Height Start Date: 07/17/26 Stop Date: 07/01/29 Status: Ordered cyanocobalamin 1000 mcg oral tablet 1,000 mcg, 1, tablet, By Mouth, Daily, for 90 days, # 90 tablet, Refills 11, Tot. Refills 11, Hard Stop 07/17/26 13:12:00 EST, 08/02/23 13:12:00 EST, Route to Pharmacy Electronically, [id number], 184, cm, 01/01/21 10:56:00 EDT, [...] Mouth, Daily, # 90 tablet, 1 Refills, [facility], 184, cm, 11/15/21 9:55:00 EDT, Height Start [...] 2 Refills, Maintenance, 11/02/21 14:30:00 EDT, Ointment, [facility]/pharmacy #[id number], Partial fill upon patient request if the prescription is for a schedule II opioid drug., 1 application Top... Start Date: 11/02/21 Status: Ordered loratadine 10 mg oral tablet 1, tablet, By Mouth, Daily, PRN, # 90 tablet, Refills 1, NEEDED FOR ALLERGIES, Route to PharmacyElectronically, [facility], 184, cm, 10/18/21 13:37:00 EDT, Height Start Date: 10/22/21 Status: Ordered magnesium oxide 400 mg oral tablet 1 tablet = 400 mg, By Mouth, Daily, Rx'd by Neurology at [facility] [place]/ Dr. Murphy, 0 Refills, Maintenance, 04/15/21 23:30:00 [...] 11:13:00 EST, 10/28/21 11:13:00 EDT, REC Powder, [facility]/pharmacy #[id number], Partial [...] tablet, 3 Refills, Maintenance, 09/16/2211:15:00 EDT, Tablet, [facility]/pharmacy #[id number], Partial f... Start Date: 09/15/21 Status: Ordered omega-3 polyunsaturated fatty acids ethyl esters 1000 mg oral capsule 1 capsule = 1,000 mg, By Mouth, 2 times a day, # 60 capsule, 11 Refills, Maintenance, 12/27/21 11:25:00 EDT, Capsule, [facility]/pharmacy #[id number], 1 capsule By Mouth 2 times [...] DX: M51. 26 please send to [facility], 01/21/21 13:20:00 EDT, Supply Start Date: 01/21/21 Status: Ordered sulindac 150 mg oral tablet See Instructions, TAKE 1 TABLET BY MOUTH TWICE A DAY NEEDED FOR PAIN, # 28 tablet, 0 Refills, Maintenance, [facility], 184, cm, 02/01/21 10:51:00 EDT, Height, 123.27, kg, 06/25/19 13:22:00 EST, Dry Weight Start Date: 02/01/21 Status: Ordered traMADol 50 mg oral tablet 1 tablet = 50 mg, By Mouth, Every 6 hours, PRN as needed for pain, for 7 days, # 28 tablet, 0 Refills, Acute 12/16/21 15:39:00 EDT, 12/09/21 15:39:00 EDT, Tablet, [facility]/pharmacy #[id number], Partial fill upon patient request if the prescription is for a sched... Start Date: 12/09/21 Stop Date: 12/16/21 Status: Ordered Tylenol 8 Hour 650 mg oral tablet, extended release 2 tablet = 1,300 mg, By Mouth, Every 8 hours, PRN as needed for pain, for 7 days, # 50 tablet, 0 Refills, Acute 12/16/21 15:40:00 EDT, 12/09/21 15:40:00 EDT, ER Tablet, [facility]/pharmacy #[id number], Partial fill upon patient request if the prescription is for a... Start Date: 12/09/21 Stop Date: 12/16/21 Status: Ordered Tylenol Extra Strength 500 mg oral tablet 2 tablet = 1,000 mg, By Mouth, 3 times a day, PRN as needed for pain, # 100 tablet, 5 Refills, Maintenance, 12/07/21 10:44:00 EDT, Tablet, [facility]/pharmacy [...] provided increased discomfort related to nerves. 3Seeing [place] neurology and sleep. Given a trial of Tegretol 200 mg upto 2 tablets twice a day andadvised to continue with Lyrica 300 mg twice a day. Had some improvement of the facial pain with this regimen. 4Seeing [place] neurology and asleep. On 09/11/2018 started on [...]
--- OUTSIDE RECORDS SUMMARY | 2023-11-02 08:24 | XMS_ITS | Continuity of Care Document ---
Author Organization [facility] Address [address] [place] [address]- Care Team Providers Care Burr Bench Operator Name Role Phone Sesar Perdue Primary Care Physician Encounter [facility] Date(s): 01/24/20 - 02/23/20 [facility] [address] [place] [address]- [facility] Allergies, Adverse Reactions, Alerts Substance Reaction Severity [...] 01/15/20 9:49:00 EDT, Route to Pharmacy Electronically, [facility]/pharmacy #[id number] Tablet, 184, cm, 01/15/20 9:11... Start Date: 01/15/20 Stop Date: 02/14/20 Status: Ordered amLODIPine 10 mg oral tablet 10 mg, 1, tablet, By Mouth, Daily, # 90 tablet, Refills 3, Tot. Refills 3, Maintenance, 01/15/20 9:51:00 EDT, Route to Pharmacy Electronically, [facility]/pharmacy #[id number], 184, cm, 01/15/20 9:11:00 EDT, Height, 123.27, kg, 06/25/19 13:22:00 EST, Dry Weight Start Date: 01/15/20 Stop Date: 03/15/20 Status: Ordered aspirin 81 mg oral tablet 1 tablet = 81 mg, By Mouth, Daily, # 90 tablet, 3 Refills, Maintenance, 01/15/20 9:51:00 EDT, Tablet, [facility]/pharmacy #[id number], 184, cm, 01/15/20 9:11:00 [...] 02/07/20 9:49:00 EDT, Route to Pharmacy Electronically, [facility]/pharmacy #[id number], 184, cm, 01/29/20 14:16:00 [...] tablet, Refills 1, Tot. Refills 1, Maintenance, 02/19/20 13:12:00 EDT, Route to Pharmacy Electronically, [facility], 184, cm, 01/29/20 14:16:00 EDT, Height, 123.27, kg, 06/25/19 13:22:00 EST, Dry... Start Date: 02/19/20 Stop Date: 08/17/20 Status: Ordered Diabetic socks Diabetic socks, See [...] Dry Weight Start Date: 02/19/20 Status: Ordered Diovan 320 mg oral tablet 1 tablet = 320 mg, By Mouth, Daily, # 90 tablet, 3 Refills, Maintenance, 01/15/20 9:51:00 EDT, Tablet, [facility]/pharmacy #[id number], 184, cm, 01/15/20 9:11:00 EDT, Height, 123.27, kg, 06/25/19 13:22:00 EST, Dry Weight Start Date: 01/15/20 Stop Date: 03/15/20 Status: Ordered fluticasone 50 mcg/inh nasal spray See Instructions, USE 1 SPRAY IN EACH NOSTRIL EVERY MORNING, # 16 mL, 0 Refills, Maintenance, [facility], 30, USE 1 SPRAY IN EACH NOSTRIL [...] 19:31:42, Compound Start Date: 07/11/16 Status: Ordered Lyrica 300 mg oral capsule 1 capsule = 300 mg, By Mouth, 2 times a day, # 120 capsule, 2 Refills, Maintenance, 01/27/20 10:39:00 EDT, Capsule, [id number], 184, cm, 01/15/20 9:52:00 EDT, Height, 123.27, kg, 06/25/19 13:22:00 EST, Dry Weight Start Date: 01/27/20 Stop Date: 07/25/20 Status: Ordered omeprazole 20 mg oral enteric coated capsule 1 capsule = 20 mg, By Mouth, Daily, # 30 capsule, 2 Refills, Maintenance, 02/06/20 16:40:00 EDT, ECCapsule, [id number], 184, cm, 01/29/20 14:16:00 EDT, Height, 123.27, kg, 06/25/19 13:22:00 EST, Dry Weight Start Date: 02/06/20 Status: Ordered rosuvastatin 5 mg oral tablet 1 tablet = 5 mg, By Mouth, Daily, # 90 tablet, 3 Refills, Maintenance, 01/15/20 9:51:00 EDT, Tablet, [facility]/pharmacy #[id number], 184, cm, 01/15/20 9:11:00 EDT, Height, 123.27, kg, 06/25/19 13:22:00 EST, Dry Weight Start Date: 01/15/20 Stop Date: 03/15/20 Status: Ordered traMADol 50 mg oral tablet 1 tablet = 50 mg, By Mouth, Every 8 hours, PRN Pain , Moderate, for 7 days, # 21 tablet, 0 Refills,Acute 02/27/20 10:43:00 EDT, 02/20/20 10:43:00 EDT, [facility]/pharmacy #[id number], 184, cm, 01/29/20 14:16:00 EDT, Height, 123.27, kg, 06/25/19 13:22:00 EST, Dry... Start Date: 02/20/20 Stop Date: 02/27/20 Status: Ordered Problem List Condition Effective Dates [...] provided increased discomfort related to nerves. 3Seeing [place] neurology and sleep. Given a trial of Tegretol 200 mg upto 2 tablets twice a day andadvised to continue with Lyrica 300 mg twice a day. Had some improvement of the facial pain with this regimen. 4Seeing [place] neurology and asleep. On 09/11/2018 started on [...]
--- OUTSIDE RECORDS SUMMARY | 2023-11-02 08:24 | XMS_ITS | Continuity of Care Document ---
Author Organization [facility] Address [address] [place] [address]- Care Team Providers Care Cna Gna Name Role Phone Dayo Castano MD Primary Care Physician Encounter [facility] Date(s): 05/09/23 - 06/08/[address] [address]- Allergies, Adverse Reactions, Alerts Substance Reaction Severity [...] influenza virus vaccine, inactivated 04/16/15 Give n [id number] 12y+ bivalent booster vax 02/21/23 Given SARS-CoV-2 (COVID-19) mRNA BNT-162b2 vac 1 06/01/21 Given SARS-CoV-2 (COVID-19) mRNA BNT-162b2 vac 11/07/20 Recorded SARS-CoV-2 (COVID-19) mRNA BNT-162b2 vac 10/17/20 Recorded zoster vaccine, inactivated 06/18/19 Recorded zoster vaccine, inactivated 06/17/19 Recorded zoster vaccine, inactivated 11/25/17 Recorded Influenza Vaccine (oldterm) 02/17/17 Recorded pneumococcal 23-valent vaccine 02/16/16 Given tetanus/diphtheria/pertussis, acel(Tdap) 11/25/14 Given 1Result Comment: DILUENT LOT#: [id number] EXP: 11/2022 MFG: FRESENSIUS Medications Albuterol (Eqv-ProAir [...] Mouth, Daily at bedtime, Rx'd by neurology ([facility]), # 30 tablet, 0 Refills, [...] 3 Refills, Maintenance, 04/04/23 8:44:00 EDT, Tablet, [facility]/pharmacy #[id number], Partial fill upon [...] Need length 99 months Please send to [email or web address], 01/21/21 13:20:00 EDT, Supply Start Date: 01/21/21 [...] 04/04/23 8:45:00 EDT, Route to Pharmacy Electronically, [facility]/pharmacy #[id number], Partial fill upon [...] 04/04/23 8:46:00 EDT, Route to Pharmacy Electronically, [facility]/pharmacy #[id number], 183, cm, 04/04/23 [...] Gm, 5 Refills, Maintenance, 01/26/23 9:21:00 EDT, [facility]/pharmacy #[id number], 30, APPLY TOPICALLY TO AFFECTED ARE TWICEA DAY NEEDED FOR PAIN, 183, cm, 01/26/23 9:04:00... Start Date: 01/26/23 Status: Ordered diclofenac sodium 75 mg oral delayed release tablet 1 tablet = 75 mg, By Mouth, 2 times a day, PRN Pain , Severe, STOP DICLOFENAC GEL, # 60 tablet, 0 Refills, Maintenance, 05/19/23 12:59:00 EST, EC Tablet, [facility]/pharmacy #[id number], Partial fill upon [...] 0 Refills, Maintenance, 05/05/23 9:15:00 EST, Tablet, [facility]/pharmacy #[id number], Partial fill upon [...] 04/04/23 8:42:00 EDT, Route to Pharmacy Electronically, [facility]/pharmacy #[id number], 183, cm, 04/04/23 [...] SMOKING CESSATION, # 40 gum, 0 Refills, [facility], 184, cm, 12/27/21 11:50:00 EDT, Height Start [...] Stop 03/29/24 8:46:00 EDT, 04/04/23 8:46:00 EDT, [facility]/pharmacy #[id number], 1 capsule By Mouth 2 times a day,x90 days, 183, cm, 04/04/23 8:24:00 EDT, Height, 123.2, kg, 01/18... Start Date: 04/04/23 Stop Date: 03/29/24 Status: Ordered omeprazole 20 mg oral enteric coated capsule 1 capsule, By Mouth, Daily, # 90 capsule, 3 Refills, Maintenance, 04/04/23 8:46:00 EDT, [facility]/pharmacy #[id number], 183, cm, 04/04/23 [...] times a day, rx'd by neurology at [facility], # 120 tablet, Refills 0, [...] Maintenance, DX: M51. 26 please send to [facility], 08/08/22 15:41:00 EST, Supply Start Date: 08/08/22 Status: Ordered Symbicort 160mcg/4.5mcg Inhaler 2, puffs, Inhalation, 2 times a day, # 6 Gm, Refills 11, Tot. Refills 11, Maintenance, 04/04/23 8:44:00 EDT, Aerosol, Route to Pharmacy Electronically, [id number], [facility]/pharmacy #[id number], 183, cm, 04/04/23 [...] 11 Refills, Maintenance, 04/04/23 8:43:00 EDT, Tablet, [facility]/pharmacy #[id number], Partial fill upon [...] provided increased discomfort related to nerves. 3Seeing [place] neurology and sleep. Given a trial of [...] Care Team Personnel Name: Olimpia Parker Position: [facility]UAN Office Staff Member Role: Lifetime Consulting Physician Name: Dayo Castano MD Position: [facility] Physician - Primary Care Member Role: PCP Address: Address: [address] [place] [address]- Care Team Related Persons Name: JARROD BRADFORD Address: home [address] [place] [address] Name: LOLA BRADFORD Address: home [address] [place] [address] Name: GOLDIE LERMA Address: [place] [address] Name: LERMA, OLIMPIA Address: [place] [address] Name: KADE LERMA Address: [address] [place] [address] Name: KADE LERMA Address: home [address] [place] [address]
--- OUTSIDE RECORDS SUMMARY | 2023-11-02 08:24 | XMS_ITS | Continuity of Care Document ---
Author Organization [facility] Address [address] [place] [address]- Care Team Providers Care Catalog Librarian Name Role Phone Ivone Oneil MD Primary Care Physician Encounter [facility] Date(s): 12/24/21 - 01/23/[address] [address]- Allergies, Adverse Reactions, Alerts Substance Reaction Severity [...] acel(Tdap) 11/25/14 Given 1Result Comment: DILUENT LOT#: [id number] EXP: 11/2022 MFG: FRESENSIUS Medications amitriptyline 100 mg oral tablet 1 tablet = 100 mg, By Mouth, Daily at bedtime, # 30 tablet, 3 Refills, Maintenance, 12/27/21 12:09:00 EDT, Tablet, [facility]/pharmacy #[id number], Partial fill upon [...] 3 Refills, Maintenance, 03/03/21 17:24:00 EDT, Tablet, [facility]/pharmacy #[id number], Partial fill upo... Start Date: [...] Need length 99 months Please send to [facility], 01/21/21 13:20:00 EDT, Supply Start Date: 01/21/21 Status: Ordered chlorthalidone 25 mg oral tablet 1, tablet, By Mouth, Daily, # 30 tablet, Refills 5, Tot. Refills 5, 09/28/21 8:08:00 EDT, Route to Pharmacy Electronically, [facility]/pharmacy #[id number], 184, cm, 09/15/21 9:12:00 EDT, Height Start Date: 09/28/21 Status: Ordered clonazePAM 2 mg oral tablet See Instructions, 1 tablet by mouth only NEEDED for severe panic attack. Dispense: #20 tabs per 20d., # 20 tablet, 0 Refills, Maintenance, 08/18/21 15:21:00 EST, Tablet, [facility]/pharmacy #[id number], Partial fill upon [...] 07/17/26 13:12:00 EST, Route to Pharmacy Electronically, [facility]/pharmacy #[id number], 184, cm, 07/26/21 9:11:00 EST, Height Start Date: 07/17/26 Stop Date: 07/01/29 Status: Ordered cyanocobalamin 1000 mcg oral tablet 1,000 mcg, 1, tablet, By Mouth, Daily, for 90 days, # 90 tablet, Refills 11, Tot. Refills 11, Hard Stop 07/17/26 13:12:00 EST, 08/02/23 13:12:00 EST, Route to Pharmacy Electronically, [facility]/pharmacy #[id number], 184, cm, 01/01/21 [...] 0 Refills, Maintenance, 12/09/21 15:41:00 EDT, Gel, [facility]/pharmacy #[id number], Partial fill upon patient request if the prescription is for a schedule... Start Date: 12/09/21 Stop Date: 12/16/21 Status: Ordered diclofenac 1% topical gel 1 application, Topically, 4 times a day, PRN Pain , Moderate, # 100 Gm, 1 Refills, Maintenance, 11/12/21 8:44:00 EDT, Gel, [facility]/pharmacy #[id number], Partial fill upon patient request if the prescription isfor a schedule II opioid drug., 184, cm, 11/05/21 9... Start Date: 11/12/21 Status: Ordered docusate sodium 100 mg oral tablet 1 tablet = 100 mg, By Mouth, 2 times a day, PRN for constipation, # 60 tablet, 5 Refills, Maintenance, 10/07/21 20:16:00 EDT, Tablet, [facility]/pharmacy #[id number], Partial fill upon [...] 1, NEEDED FOR ALLERGIES, Route to PharmacyElectronically, [facility], 184, cm, 10/18/21 13:37:00 EDT, Height Start Date: 10/22/21 Status: Ordered magnesium oxide 400 mg oral tablet 1 tablet = 400 mg, By Mouth, Daily, Rx'd by Neurology at [facility] [place]/ Dr. Murphy, 0 Refills, Maintenance, 04/15/21 23:30:00 [...] 11:13:00 EST, 10/28/21 11:13:00 EDT, REC Powder, [facility]/pharmacy #[id number], Partial fill upon [...] tablet, 3 Refills, Maintenance, 09/16/2211:15:00 EDT, Tablet, [facility]/pharmacy #[id number], Partial f... Start Date: 09/15/21 Status: Ordered Mucinex DM oral tablet, extended release 1 tablet, By Mouth, Every 12 hours, for 14 days, # 28 tablet, 0 Refills, Acute 01/24/22 12:44:00 EDT, 01/10/22 12:44:00 EDT, ER Tablet, [facility]/pharmacy #[id number], Partial fill upon [...] 12:43:00 EDT, Aerosol, Route to Pharmacy Electronically, [id number], [id number], 184, cm, 12/27/21 11:50:00 EDT, Height Start Date: 12/27/21 Status: Ordered Tylenol Extra Strength 500 mg oral tablet 2 tablet = 1,000 mg, By Mouth, 3 times a day, PRN as needed for pain, # 100 tablet, 5 Refills, Maintenance, 12/07/21 10:44:00 EDT, Tablet, [facility]/pharmacy #[id number], Partial fill upon [...] provided increased discomfort related to nerves. 3Seeing [place] neurology and sleep. Given a trial of Tegretol 200 mg upto 2 tablets twice a day andadvised to continue with Lyrica 300 mg twice a day. Had some improvement of the facial pain with this regimen. 4Seeing [place] neurology and asleep. On 09/11/2018 started on [...]
--- OUTSIDE RECORDS SUMMARY | 2023-11-02 08:24 | XMS_ITS | Continuity of Care Document ---
Author Organization [facility] Address [address] [place] [address]- Care Team Providers Care Manager Workers Compensation Name Role Phone Ivone Oneil MD Primary Care Physician Encounter [facility] Date(s): 05/02/22 - 06/18/[address] [address]- Attending Physician: Ivone Oneil MD Admitting Physician: [...] acel(Tdap) 11/25/14 Given 1Result Comment: DILUENT LOT#: [id number] EXP: 11/2022 MFG: FRESENSIUS Medications amitriptyline 100 [...] Need length 99 months Please send to [place] [facility], 01/21/21 13:20:00 EDT, Supply Start Date: [...] capsule, 0 Refills, Maintenance,03/11/22 9:32:00 EDT, Capsule, [facility]/pharmacy #[id number], Patient reports that he is not allergic [...] 0 Refills, Maintenance, 08/18/21 15:21:00 EST, Tablet, [facility]/pharmacy #[id number], Partial fill upon patient request [...] 07/17/26 13:12:00 EST, Route to Pharmacy Electronically, [facility]/pharmacy #[id number], 184, cm, 07/26/21 9:11:00 EST, Height Start Date: 07/17/26 Stop Date: 07/01/29 Status: Ordered cyanocobalamin 1000 mcg oral tablet 1,000 mcg, 1, tablet, By Mouth, Daily, for 90 days, # 90 tablet, Refills 11, Tot. Refills 11, Hard Stop 07/17/26 13:12:00 EST, 08/02/23 13:12:00 EST, Route to Pharmacy Electronically, [facility]/pharmacy #[id number], 184, cm, 01/01/21 10:56:00 EDT, [...] 5 Refills, Maintenance, 10/07/21 20:16:00 EDT, Tablet, [facility]/pharmacy #6581, Partial fill upon patient request if the [...] 1, NEEDED FOR ALLERGIES, Route to PharmacyElectronically, [facility], 184, cm, 10/18/21 13:37:00 EDT, Height Start Date: 10/22/21 Status: Ordered magnesium oxide 400 mg oral tablet 1 tablet = 400 mg, By Mouth, Daily, Rx'd by Neurology at [facility] [place]/ Dr. Murphy, 0 Refills, Maintenance, 04/15/21 23:30:00 [...] tablet, 3 Refills, Maintenance, 09/16/2211:15:00 EDT, Tablet, [facility]/pharmacy #[id number], Partial f... Start Date: 09/15/21 Status: Ordered Nicotine 2 mg gum See Instructions, CHEW 1 PIECE OF GUM EVERY 2 HOURS NEEDED FOR SMOKING CESSATION, # 40 gum, 0 Refills, [facility], 184, cm, 12/27/21 11:50:00 EDT, Height Start Date: 02/01/22 Status: Ordered omega-3 polyunsaturated fatty acids ethyl esters 1000 mg oral capsule 1 capsule, By Mouth, 2 times a day, # 180 capsule, 3 Refills, [facility], 90, TAKE 1 CAPSULE BY MOUTH TWICE [...] Refills, Maintenance, 03/22/22 8:30:00 EDT, [facility], 14, DISSOLVE 17 GRAMS IN WATER & [...] a day, Rx'd by Neurology at [facility] [place]/ Dr. Murphy, Refills 0, [...] Maintenance, DX: M51. [address] [facility], 01/21/21 13:20:00 EDT, Supply Start Date: 01/21/21 Status: Ordered Symbicort 160mcg/4.5mcg Inhaler 2, puffs, Inhalation, 2 times a day, # 6 Gm, Refills 0, Tot. Refills 0, Maintenance, 12/27/21 12:43:00 EDT, Aerosol, Route to Pharmacy Electronically, [id number], [facility]/pharmacy #[id number], 184, cm, 12/27/21 11:50:00 EDT, Height Start Date: 12/27/21 Status: Ordered Tylenol Extra Strength 500 mg oral tablet 2 tablet = 1,000 mg, By Mouth, 3 times a day, PRN as needed for pain, # 100 tablet, 5 Refills, Maintenance, 12/07/21 10:44:00 EDT, Tablet, [facility]/pharmacy #8001, Partial fill upon patient request if theprescription is for a schedule II opioid drug., 184... Start Date: 12/07/21 Status: Ordered valsartan 320 mg oral tablet 1 tablet, By Mouth, Daily, # 90 tablet, 3 Refills, Maintenance, 03/15/22 14:29:00 EDT, [facility], 183, cm, 02/08/22 6:42:00 EDT, Height, 123.2, [...] provided increased discomfort related to nerves. 3Seeing [place] neurology and sleep. Given a trial of Tegretol 200 mg upto 2 tablets twice a day andadvised to continue with Lyrica 300 mg twice a day. Had some improvement of the facial pain with this regimen. 4Seeing [place] neurology and asleep. On 09/11/2018 started on [...] Consulting Physician Name: Ivone Oneil MD Position: [facility] Primary Care Physician Member Role: PCP Address: Address: [address] [place] [address]- Care Team Related Persons Name: JARROD BRADFORD Address: home [address] [place] [address] Name: LOLA BRADFORD Address: home [address] [place] [address] Name: GOLDIE LERMA Address: [place] [address] Name: OLIMPIA LERMA Address: [place] [address] Name: KADE LERMA Address: home [address] [place] [address] Name: KADE LERMA Address: home [address] [place] [id number]
--- OUTSIDE RECORDS SUMMARY | 2023-11-02 08:24 | XMS_ITS | Continuity of Care Document ---
Author Organization [facility] Address [address] [place] [address]- Care Team Providers Care Wholesale Manager Name Role Phone Contractor Krystal FERNANDEZ Primary Care Physician [phone] Encounter [facility] Date(s): 03/11/21 - 04/10/[address] [address] Allergies, Adverse Reactions, Alerts Substance Reaction [...] 1 Refills, Maintenance, 03/17/21 10:19:00 EDT, Tablet, [facility]/pharmacy #[id number], Partial fill upon [...] 3 Refills, Maintenance, 03/03/21 17:24:00 EDT, Tablet, [facility]/pharmacy #[id number], Partial fill upo... Start Date: 03/03/21 Status: Ordered aspirin 81 mg oral delayed release tablet 81 mg, 1, tablet, By Mouth, Daily, # 90 tablet, Refills 0, Tot. Refills 0, Maintenance, 01/01/21 11:26:00 EDT, Route to Pharmacy Electronically, [facility]/pharmacy #[id number], Partial fill upon [...] Need length 99 months Please send to [facility], 01/21/21 13:20:00 EDT, Supply Start Date: 01/21/21 Status: Ordered chlorthalidone 25 mg oral tablet 1, tablet, By Mouth, Daily, # 30 tablet, Refills 5, Route to Pharmacy Electronically, [id number], 184, cm, 03/30/21 16:08:00 EDT, Height, 123.27, kg, 06/25/19 13:22:00 EST, Dry Weight Start Date: 04/07/21 Status: Ordered Claritin 10 mg oral tablet 10 mg, 1, tablet, By Mouth, Daily, # 30 tablet, Refills 3, Tot. Refills 3, Maintenance, 01/29/21 9:13:00 EDT, Route to Pharmacy Electronically, [facility]/pharmacy #[id number], 184, cm, 01/29/21 [...] 0 Refills, Maintenance, 03/03/21 17:36:00 EDT, Cream, [facility]/pharmacy #[id number], Partial fill upon [...] 13:12:00 EST, [id number] 184, cm, 02/28/20 15:58:00 EDT, Height, 123.27,... Start Date: 08/17/20 Stop Date: 08/02/23 Status: Ordered cyanocobalamin 1000 mcg oral tablet 1,000 mcg, 1, tablet, By Mouth, Daily, # 90 tablet, Refills 11, Tot. Refills 11, Maintenance, 08/02/23 13:12:00 EST, Route to Pharmacy Electronically, [facility]/pharmacy #[id number], 184, cm, 01/01/21 [...] 5 Refills, Maintenance, 01/11/21 15:23:00 EDT, Tablet, [facility]/pharmacy #[id number], Partial fill upon patient request if the prescription is for a schedule II opioid drug., 184, cm,... Start Date: 01/11/21 Status: Ordered escitalopram 5 mg oral tablet 1 tablet = 5 mg, By Mouth, Daily, This is a decrease in dose, # 14 tablet, 0 Refills, Maintenance, 04/05/21 15:54:00 EDT, Tablet, [facility]/pharmacy #[id number], Partial fill upon patient request if the prescription is for a schedule II opioid drug., 184, cm, 10/... Start Date: 04/05/21 Stop Date: 04/19/21 Status: Ordered fluticasone 50 mcg/inh nasal spray See Instructions, USE 1 SPRAY IN EACH NOSTRIL EVERY MORNING, # 16 mL, 3 Refills, 01/29/21 9:11:00 EDT, [facility]/pharmacy #[id number], 30, USE 1 [...] 2 Refills, Maintenance, 02/10/21 13:09:00 EDT, Ointment, [facility]/pharmacy #[id number], Partial fill upon patient request if the [...] 3 Refills, Maintenance, 03/03/21 17:29:00 EDT, Tablet, [facility]/pharmacy #[id number], Partial fill upon p... Start [...] Maintenance, DX: M51. 26 please send to [facility], 01/21/21 13:20:00 EDT, Supply Start Date: 01/21/21 Status: Ordered sulindac 150 mg oral tablet See Instructions, TAKE 1 TABLET BY MOUTH TWICE A DAY NEEDED FOR PAIN, # 28 tablet, 0 Refills, Maintenance, [facility], 184, cm, 02/01/21 10:51:00 EDT, Height, 123.27, [...] 5 Refills, Maintenance, 03/11/21 9:40:00 EDT, Tablet, [facility]/pharmacy #[id number], Partial fill upon patient request if the [...] increased discomfort related to nerves. 3Seeing [place] neurology and sleep. Given a trial of Tegretol 200 mg upto 2 tablets twice a day andadvised to continue with Lyrica 300 mg twice a day. Had some improvement of the facial pain with this regimen. 4Seeing [place] neurology and asleep. On 09/11/2018 started on [...]
--- OUTSIDE RECORDS SUMMARY | 2023-11-02 08:24 | XMS_ITS | Continuity of Care Document ---
Author Organization [facility] ter Address [address] [place] [address]- Care Team Providers Care Permit Specialist Name Role Phone Terence PRATHER, Azra Primary Care Physician [phone] Encounter [facility] Date(s): 07/18/20 - 08/27/[address] [address]- Attending Physician: Quinten Alvarado MD Admitting Physician: Quinten Alvarado MD Referring Physician: Quinten Alvarado MD Allergies, Adverse Reactions, Alerts Substance Reaction Severity Status penicillin Unknown Active gabapentin Active Ventolin HFA Active traZODone Active SEROquel Active hydrOXYzine hydrochloride Ac tive Lantus Active ZyrTEC Active Flovent HFA Active Immunizations Given and [...] 01/15/20 9:51:00 EDT, Route to Pharmacy Electronically, [facility]/pharmacy #[id number], 184, cm, 01/15/20 9:11:00 EDT, Height, 123.27, kg, 06/25/19 13:22:00 EST, Dry Weight Start Date: 01/15/20 Stop Date: 03/15/20 Status: Ordered aspirin 81 mg oral tablet 1 tablet = 81 mg, By Mouth, Daily, # 90 tablet, 3 Refills, Maintenance, 01/15/20 9:51:00 EDT, Tablet, [facility]/pharmacy #[id number], 184, cm, 01/15/20 9:11:00 [...] 02/07/20 9:49:00 EDT, Route to Pharmacy Electronically, [facility]/pharmacy #[id number], 184, cm, 01/29/20 14:16:00 [...] 08/17/20 13:12:00 EST, Route to Pharmacy Electronically, [facility]/pharmacy #[id number], 184, cm, 02/28/20 15:58:00 [...] 3 Refills, Maintenance, 01/15/20 9:51:00 EDT, Tablet, [facility]/pharmacy #[id number], 184, cm, 01/15/20 9:11:00 EDT, Height, 123.27, kg, 06/25/19 13:22:00 EST, Dry Weight Start Date: 01/15/20 Stop Date: 03/15/20 Status: Ordered fluticasone 50 mcg/inh nasal spray See Instructions, USE 1 SPRAY IN EACH NOSTRIL EVERY MORNING, # 16 mL, 0 Refills, Maintenance, [id number], 30, USE 1 SPRAY IN EACH NOSTRIL [...] 2 Refills, Maintenance, 01/27/20 10:39:00 EDT, Capsule, [facility]/pharmacy #[id number], 184, cm, 01/15/20 9:52:00 EDT, Height, 123.27, kg, 06/25/19 13:22:00 EST, Dry Weight Start Date: 01/27/20 Stop Date: 07/25/20 Status: Ordered metFORMIN 500 mg oral tablet 1 tablet = 500 mg, By Mouth, Daily, with meals, # 90 tablet, 11 Refills, Maintenance, 03/02/20 9:56:00 EDT, Tablet, [facility]/pharmacy #[id number], 184, cm, 02/28/20 15:58:00 EDT, Height, 123.27, kg, 06/25/19 13:22:00 EST, Dry Weight Start Date: 03/02/20 Status: Ordered omeprazole 20 mg oral enteric coated capsule 1 capsule = 20 mg, By Mouth, Daily, # 30 capsule, 2 Refills, Maintenance, 02/06/20 16:40:00 EDT, ECCapsule, [facility]/pharmacy #[id number], 184, cm, 01/29/20 14:16:00 [...] provided increased discomfort related to nerves. 3Seeing [place] neurology and sleep. Given a trial of Tegretol 200 mg upto 2 tablets twice a day andadvised to continue with Lyrica 300 mg twice a day. Had some improvement of the facial pain with this regimen. 4Seeing [place] neurology and asleep. On 09/11/2018 started on [...]
--- OUTSIDE RECORDS SUMMARY | 2023-11-02 08:25 | XMS_ITS | Continuity of Care Document ---
Author Organization [facility] Address [address] [place] [address] jennifer, [address] [place] [address]- Care Team Providers Care Clinical Laboratory Science Professor Name Role Phone Terence PRATHER, Azra Primary Care Physician Encounter [facility] Date(s): 04/27/20 - 05/27/[address], [address] [place], [place] [address] Attending Physician: Admpete, Cristian Admitting Physician: AdmtrCristian Referring Physician: Admtr, Ar8 [...] 01/15/20 9:51:00 EDT, Route to Pharmacy Electronically, [facility]/pharmacy #[id number], 184, cm, 01/15/20 9:11:00 EDT, Height, 123.27, kg, 06/25/19 13:22:00 EST, Dry Weight Start Date: 01/15/20 Stop Date: 03/15/20 Status: Ordered aspirin 81 mg oral tablet 1 tablet = 81 mg, By Mouth, Daily, # 90 tablet, 3 Refills, Maintenance, 01/15/20 9:51:00 EDT, Tablet, [facility]/pharmacy #[id number], 184, cm, 01/15/20 9:11:00 EDT, Height, [...] 02/07/20 9:49:00 EDT, Route to Pharmacy Electronically, [facility]/pharmacy #[id number], 184, cm, 01/29/20 14:16:00 EDT, Height, [...] 08/17/20 13:12:00 EST, Route to Pharmacy Electronically, [facility]/pharmacy #[id number], 184, cm, 02/28/20 15:58:00 EDT, Height, [...] 3 Refills, Maintenance, 01/15/20 9:51:00 EDT, Tablet, [facility]/pharmacy #[id number], 184, cm, 01/15/20 9:11:00 EDT, Height, 123.27, kg, 06/25/19 13:22:00 EST, Dry Weight Start Date: 01/15/20 Stop Date: 03/15/20 Status: Ordered fluticasone 50 mcg/inh nasal spray See Instructions, USE 1 SPRAY IN EACH NOSTRIL EVERY MORNING, # 16 mL, 0 Refills, Maintenance, [facility], 30, USE 1 SPRAY IN EACH NOSTRIL [...] provided increased discomfort related to nerves. 3Seeing [place] neurology and sleep. Given a trial of Tegretol 200 mg upto 2 tablets twice a day andadvised to continue with Lyrica 300 mg twice a day. Had some improvement of the facial pain with this regimen. 4Seeing [place] neurology and asleep. On 09/11/2018 started on [...]
--- OUTSIDE RECORDS SUMMARY | 2023-11-02 08:25 | XMS_ITS | Continuity of Care Document ---
Author Organization [facility] Address [address] [place] [address]- Care Team Providers Care Violin Teacher Name Role Phone Contractor Krystal FERNANDEZ Primary Care Physician Encounter [facility] Date(s): 08/12/21 - 09/11/21 [facility] [address] [place], [place] [address] Attending Physician: Cristian Padilla Admitting Physician: AdmCristian freeman Referring Physician: AdmtrCristian Allergies, Adverse Reactions, Alerts Substance Reaction Severity [...] acel(Tdap) 11/25/14 Given 1Result Comment: DILUENT LOT#: [id number] EXP: 11/2022 MFG: [facility]SIUS Medications amitriptyline 100 mg oral tablet 1 tablet = 100 mg, By Mouth, Daily at bedtime, # 30 tablet, 3 Refills, Maintenance, 08/11/21 10:02:00 EST, Tablet, [facility]/pharmacy #[id number], Partial fill upon patient request if [...] 3 Refills, Maintenance, 03/03/21 17:24:00 EDT, Tablet, [facility]/pharmacy #[id number], Partial fill upo... Start Date: 03/03/21 Status: Ordered aspirin 81 mg oral delayed release tablet 81 mg, 1, tablet, By Mouth, Daily, # 90 tablet, Refills 0, Tot. Refills 0, Maintenance, 01/01/21 11:26:00 EDT, Route to Pharmacy Electronically, [facility]/pharmacy #[id number], Partial fill upon patient request if [...] chamber,Ramp. Dx: Ob structive sleep apnea- G47.33, 01/09/17 11:24:23,... Start Date: 06/27/16 Status: Ordered Bactrim DS 800 mg-160 mg oral tablet 1 tablet, By Mouth, 2 times a day, for 7 days, # 14 tablet, 0 Refills, Acute 09/14/21 9:39:00 EDT, 09/07/21 9:39:00 EDT, Tablet, [facility]/pharmacy #[id number], g., 1 tablet By Mouth 2 [...] Need length 99 months Please send to [facility], 01/21/21 13:20:00 EDT, Supply Start Date: 01/21/21 Status: Ordered carbidopa-levodopa 25 mg-100 mg oral tablet 1 tablet, By Mouth, 3 times a day, Rx'd by Neurology at [facility] [place]/ Dr. Murphy, # 270 tablet, 0 Refills, Maintenance, 04/15/21 23:30:00 EDT, Tablet, Partial fill upon patient request if the prescription is for a schedule II opioid drug. Start Date: 04/15/21 Status: Ordered chlorthalidone 25 mg oral tablet 1, tablet, By Mouth, Daily, # 30 tablet, Refills 5, Route to Pharmacy Electronically, [id number], 184, cm, 03/30/21 16:08:00 EDT, Height, 123.27, kg, 06/25/19 13:22:00 EST, Dry Weight Start Date: 04/07/21 Status: Ordered Claritin 10 mg oral tablet 10 mg, 1, tablet, By Mouth, Daily, more sea necesario para alergia, # 30 tablet, Refills 5, Tot. Refills 5, Maintenance, 04/13/21 10:04:00 EDT, Route to Pharmacy Electronically, [facility]/pharmacy #[id number], 184, cm, 04/13/21 9:26:00 EDT, Height, 123.27, kg, 01... Start Date: 04/13/21 Status: Ordered clonazePAM 2 mg oral tablet See Instructions, 1 tablet by mouth only NEEDED for severe panic attack. Dispense: #20 tabs per 20d., # 20 tablet, 0 Refills, Maintenance, 08/18/21 15:21:00 EST, Tablet, [facility]/pharmacy #[id number], Partial fill upon patient request if [...] 0 Refills, Maintenance, 03/03/21 17:36:00 EDT, Cream, [facility]/pharmacy #[id number], Partial fill upon patient request if the prescription is for a schedule II opioid drug., 1 application Topically 3 ti... Start Date: 03/03/21 Status: Ordered cyanocobalamin 1000 mcg oral tablet 1,000 mcg, 1, tablet, By Mouth, Daily, # 90 tablet, Refills 11, Tot. Refills 11, Maintenance, 07/17/26 13:12:00 EST, Route to Pharmacy Electronically, [facility]/pharmacy #[id number], 184, cm, 07/26/21 9:11:00 EST, Height Start Date: 07/17/26 Stop Date: 07/01/29 Status: Ordered cyanocobalamin 1000 mcg oral tablet 1,000 mcg, 1, tablet, By Mouth, Daily, for 90 days, # 90 tablet, Refills 11, Tot. Refills 11, Hard Stop 07/17/26 13:12:00 EST, 08/02/23 13:12:00 EST, Route to Pharmacy Electronically, [facility]/pharmacy #[id number], 184, cm, 01/01/21 10:56:00 EDT, Height, [...] 5 Refills, Maintenance, 01/11/21 15:23:00 EDT, Tablet, [facility]/pharmacy #[id number], Partial fill upon patient request if the prescription is for a schedule II opioid drug., 184, cm,... Start Date: 01/11/21 Status: Ordered escitalopram 20 mg oral tablet 1 tablet = 20 mg, By Mouth, Daily, # 30 tablet, 3 Refills, Maintenance, 07/13/21 12:26:00 EST, Tablet, [facility]/pharmacy #[id number], d/c citalopram 10 mg, 184, cm, 06/14/21 11:01:00 EST, Height Start Date: 07/13/21 Status: Ordered fluticasone 50 mcg/inh nasal spray See Instructions, USE 1 SPRAY IN EACH NOSTRIL EVERY MORNING, # 16 mL, 3 Refills, 01/29/21 9:11:00 EDT, [facility]/pharmacy #[id number], 30, USE 1 SPRAY IN EACH [...] 2 Refills, Maintenance, 02/10/21 13:09:00 EDT, Ointment, [facility]/pharmacy #[id number], Partial fill upon patient request if the prescription is for a schedule II opioid drug., 1 application Top... Start Date: 02/10/21 Status: Ordered magnesium oxide 400 mg oral tablet 1 tablet = 400 mg, By Mouth, Daily, [facility] [place]/ Dr. Murphy, 0 Refills, Maintenance, 04/15/21 [...] 3 Refills, Maintenance, 03/03/21 17:29:00 EDT, Tablet, [facility]/pharmacy #[id number], Partial fill upon p... Start Date: 03/03/21 Status: Ordered omega-3 polyunsaturated fatty acids ethyl esters 1000 mg oral capsule 1 capsule = 1,000 mg, By Mouth, 2 times a day, # 60 capsule, 11 Refills, Maintenance, 12/27/21 11:25:00 EDT, Capsule, [facility]/pharmacy #[id number], 1 capsule By Mouth 2 times [...] Mouth, Daily, # 90 capsule, 0 Refills, [id number], 184, cm, 06/14/21 11:01:00 EST, Height, 123.27, [...] Maintenance, DX: M51. 26 please send to [facility], 01/21/21 13:20:00 EDT, Supply Start Date: 01/21/21 Status: Ordered sulindac 150 mg oral tablet See Instructions, TAKE 1 TABLET BY MOUTH TWICE A DAY NEEDED FOR PAIN, # 28 tablet, 0 Refills, Maintenance, [facility], 184, cm, 02/01/21 10:51:00 EDT, Height, 123.27, [...] provided increased discomfort related to nerves. 3Seeing [place] neurology and sleep. Given a trial of Tegretol 200 mg upto 2 tablets twice a day andadvised to continue with Lyrica 300 mg twice a day. Had some improvement of the facial pain with this regimen. 4Seeing [place] neurology and asleep. On 09/11/2018 started on [...]
--- OUTSIDE RECORDS SUMMARY | 2023-11-02 08:25 | XMS_ITS | Continuity of Care Document ---
Author Organization [facility] Address [address] [facility], [address] Floor, [address] [place] [address]- Care Team Providers Care Operating Room Specialist Name Role Phone Eyad PRATHER, Dayo Primary Care Physician [phone] Encounter [facility] Date(s): 07/11/23 - 08/10/23 [facility] [address], [address], [address] [place] [id number] Allergies, Adverse Reactions, Alerts Substance Reaction Severity Status penicillin Unknown Active gabapentin Active Lantus Active ZyrTEC Active SEROquel Active hydrOXYzine hydrochloride Ac tive Ventolin HFA Active Flovent HFA Active traZODone [...] influenza virus vaccine, inactivated 04/16/15 Give n [id number] 12y+ bivalent booster vax 02/21/23 Given SARS-CoV-2 (COVID-19) mRNA BNT-162b2 vac 1 06/01/21 Given SARS-CoV-2 (COVID-19) mRNA BNT-162b2 vac 11/07/20 Recorded SARS-CoV-2 (COVID-19) mRNA BNT-162b2 vac 10/17/20 Recorded zoster vaccine, inactivated 06/18/19 Recorded zoster vaccine, inactivated 06/17/19 Recorded zoster vaccine, inactivated 11/25/17 Recorded Influenza Vaccine (oldterm) 02/17/17 Recorded pneumococcal 23-valent vaccine 02/16/16 Given tetanus/diphtheria/pertussis, acel(Tdap) 11/25/14 Given 1Result Comment: DILUENT LOT#: [id number] EXP: 11/2022 MFG: [facility] Medications Albuterol (Eqv-ProAir HFA) 90 mcg/inh inhalation aerosol 2 puffs, Inhalation, Every 6 hours, please give pt whatver is covered by his insrance use with spacer chamber, # 18 Gm, 11 Refills, Maintenance, 08/07/23 14:38:00 EST, [id number], Partial fill upon patient request if the prescription is for... Start Date: 08/07/23 Status: Ordered amitriptyline 100 mg oral tablet 1 tablet = 100 mg, By Mouth, Daily at bedtime, Rx'd by neurology ([facility]), # 30 tablet, 0 Refills, [...] Maintenance, 04/04/23 8:44:00 EDT, Tablet, [facility]/pharmacy #[id number], Partial fill upon patient request [...] Need length 99 months Please send to [facility], 01/21/21 13:20:00 EDT, Supply Start Date: 01/21/21 Status: Ordered carbidopa-levodopa 25 mg-100 mg oral tablet 1 tablet, By Mouth, 2 times a day, Rx'd by neurology at [facility], # 60 tablet, 0 [...] Electronically, [facility]/pharmacy #[id number], Partial fill upon patient request [...] opioid drug. Start Date: 10/04/22 Status: Ordered clotrimazole 1% topical cream 1 application, Topically, 2 times a day, for 30 days, # 100 Gm, 1 Refills, Acute 10/06/23 14:26:00 EDT, 08/07/23 14:26:00 EST, Cream, [facility]/pharmacy #[id number], Partial fill upon patient request if the prescription is for a schedule II opioid drug., 1 applic... Start Date: 08/07/23 Stop Date: 10/06/23 Status: Ordered Compression Stockings See Instructions, # [...] EDT, Supply Start Date: 01/27/21 Status: Ordered [facility] O[facility] 41% [facility] 41%, See Instructions, # [...] Electronically, [facility]/pharmacy #[id number], 183, cm, 04/04/23 8:24:00 EDT, Height, [...] Gm, 5 Refills, Maintenance, 07/04/23 8:59:00 EST, [facility]/pharmacy #[id number], 30, APPLY TOPICALLY TO AFFECTED [...] EVERY DAY Start Date: 07/04/23 Status: Ordered FREESTYLE 28G [...] Daily at bedtime, Rx'd by neurology at [facility], 0 Refills, Maintenance, 10/04/22 [...] Electronically, [facility]/pharmacy #[id number], 183, cm, 04/04/23 8:24:00EDT, Height, 123.2, kg, 02/07/22 12:47:00 EDT, Dry... Start Date: 04/04/23 Status: Ordered Metamucil 3.4 gm/5.2 gm oral powder for reconstitution = 3.4 Gm, By Mouth, 3 times a day, PRN as needed for constipation, # 425 Gm, 11 Refills, Maintenance, 08/07/23 14:34:00 EST, REC Powder, [facility]/pharmacy #[id number], Partial fill upon patient request if the prescription is for a schedule II opioid drug., 183,... Start Date: 08/07/23 Status: Ordered metFORMIN 500 mg oral tablet [...] # 40 gum, 0 Refills, [facility], 184, cm, 12/27/21 11:50:00 EDT, Height Start [...] 8:46:00 EDT, 04/04/23 8:46:00 EDT, [facility]/pharmacy #[id number], 1 capsule By Mouth 2 times a day,x90 days, 183, cm, 04/04/23 8:24:00 EDT, Height, 123.2, kg, 082... Start Date: 04/04/23 Stop Date: 03/29/24 Status: [...] times a day, Rx'd by neurology at [facility], # 60 capsule, 0 Refills, Maintenance, 10/04/22 8:24:00 EDT, Capsule, Partial fill upon patient request if the prescription is for a schedule II opioid drug. Start Date: 10/04/22 Status: Ordered primidone 50 mg oral tablet 100 mg, 2, tablet, By Mouth, 2 times a day, rx'd by neurology at [facility], # 120 tablet, Refills 0, [...] times a day, Rx'd by neurology at [facility], # 270 tablet, 0 [...] Gm, Refills 11, Tot. Refills 11, Maintenance, 08/07/23 14:39:00 EST, Aerosol, Route to Pharmacy Electronically, [id number], [id number], 183, cm, 08/07/23 14:26:00 EST, Height,... Start Date: 08/07/23 Status: Ordered traMADol 50 mg oral tablet [...] 11 Refills, Maintenance, 04/04/23 8:43:00 EDT, Tablet, [id number], Partial fill upon [...] provided increased discomfort related to nerves. 3Seeing [place] neurology and sleep. Given a trial of [...] Care team information Care Team Personnel Name: Olmipia Parker Position: [facility] Office Staff Member Role: Lifetime Consulting Physician Name: Dayo Castano MD Position: [facility] Physician - Primary Care Member Role: PCP Address: Address: [address] [place] [address]- [place] Care Team Related Persons Name: JARROD BRADFORD Address: home [address] [place] [address] Name: LOLA BRADFORD Address: home [address] [place] [address] Name: GOLDIE LERMA Address: [place] [address] Name: OLIMPIA LERMA Address: [place] [address] Name: KADE LERMA Address: home [address] [address] Name: KADE LERMA Address: home [address] [facility] [facility] [place] [address]
--- OUTSIDE RECORDS SUMMARY | 2023-11-02 08:25 | XMS_ITS | Continuity of Care Document ---
Author Organization [facility] Address [address] [place] [address]- Care Team Providers Care Molecular Geneticist Name Role Phone Ivone Oneil MD Primary Care Physician Encounter [facility] Date(s): 11/22/21 - 12/25/[address] [address]- Attending Physician: Not on Staff, Attending MD [...] vaccine, inactivated 11/25/17 Recorded Influenza Vaccine (oldterm) 9/1/17 Recorded pneumococcal 23-valent vaccine 02/16/16 Given tetanus/diphtheria/pertussis, acel(Tdap) 11/25/14 Given 1Result Comment: DILUENT LOT#: [id number] EXP: 11/2022 MFG: FRESENSIUS Medications amitriptyline 100 [...] 3 Refills, Maintenance, 03/03/21 17:24:00 EDT, Tablet, [facility]/pharmacy #[id number], Partial fill upo... Start Date: [...] Need length 99 months Please send to [facility], 01/21/21 13:20:00 EDT, Supply Start Date: 01/21/21 Status: Ordered carbidopa-levodopa 25 mg-100 mg oral tablet 1 tablet, By Mouth, 3 times a day, Rx'd by Neurology at [facility] [place]/ Dr. Murphy, # 270 tablet, 0 Refills, Maintenance, 04/15/21 23:30:00 EDT, Tablet, Partial fill upon patient request if the prescription is for a schedule II opioid drug. Start Date: 04/15/21 Status: Ordered chlorthalidone 25 mg oral tablet 1, tablet, By Mouth, Daily, # 30 tablet, Refills 5, Tot. Refills 5, 09/28/21 8:08:00 EDT, Route to Pharmacy Electronically, [facility]/pharmacy #[id number], 184, cm, 09/15/21 9:12:00 EDT, Height Start Date: 09/28/21 Status: Ordered clonazePAM 2 mg oral tablet See Instructions, 1 tablet by mouth only NEEDED for severe panic attack. Dispense: #20 tabs per 20d., # 20 tablet, 0 Refills, Maintenance, 08/18/21 15:21:00 EST, Tablet, [facility]/pharmacy #[id number], Partial fill upon [...] 0 Refills, Maintenance, 10/07/21 20:16:00 EDT, Cream, [facility]/pharmacy #[id number], Partial fill upon patient request if the prescription is for a schedule II opioid drug., 1 application Topically 3 ti... Start Date: 10/07/21 Status: Ordered cyanocobalamin 1000 mcg oral tablet 1,000 mcg, 1, tablet, By Mouth, Daily, # 90 tablet, Refills 11, Tot. Refills 11, Maintenance, 07/17/26 13:12:00 EST, Route to Pharmacy Electronically, [facility]/pharmacy #[id number], 184, cm, 07/26/21 9:11:00 EST, Height Start Date: 07/17/26 Stop Date: 07/01/29 Status: Ordered cyanocobalamin 1000 mcg oral tablet 1,000 mcg, 1, tablet, By Mouth, Daily, for 90 days, # 90 tablet, Refills 11, Tot. Refills 11, Hard Stop 07/17/26 13:12:00 EST, 08/02/23 13:12:00 EST, Route to Pharmacy Electronically, [facility]/pharmacy #[id number], 184, cm, 01/01/21 10:56:00 EDT, [...] Mouth, Daily, # 90 tablet, 1 Refills, [id number], 184, cm, 11/15/21 9:55:00 EDT, Height Start Date: 12/06/21 Status: Ordered fluticasone 50 mcg/inh nasal spray See Instructions, USE 1 SPRAY IN EACH NOSTRIL EVERY MORNING, # 16 mL, 3 Refills, 01/29/21 9:11:00 EDT, [facility]/pharmacy #[id number], 30, USE 1 SPRAY IN [...] 2 Refills, Maintenance, 11/02/21 14:30:00 EDT, Ointment, [facility]/pharmacy #[id number], Partial fill upon patient request if the prescription is for a schedule II opioid drug., 1 application Top... Start Date: 11/02/21 Status: Ordered loratadine 10 mg oral tablet 1, tablet, By Mouth, Daily, PRN, # 90 tablet, Refills 1, NEEDED FOR ALLERGIES, Route to PharmacyElectronically, [id number], 184, cm, 10/18/21 13:37:00 EDT, Height Start Date: 10/22/21 Status: Ordered magnesium oxide 400 mg oral tablet 1 tablet = 400 mg, By Mouth, Daily, Rx'd by Neurology at [facility]/ Dr. Murphy, 0 Refills, Maintenance, 04/15/21 23:30:00 [...] 11:13:00 EST, 10/28/21 11:13:00 EDT, REC Powder, [facility]/pharmacy #[id number], Partial fill upon patient [...] tablet, 3 Refills, Maintenance, 09/16/2211:15:00 EDT, Tablet, [facility]/pharmacy #[id number], Partial f... Start Date: 09/15/21 Status: Ordered omega-3 polyunsaturated fatty acids ethyl esters 1000 mg oral capsule 1 capsule = 1,000 mg, By Mouth, 2 times a day, # 60 capsule, 11 Refills, Maintenance, 12/27/21 11:25:00 EDT, Capsule, [facility]/pharmacy #[id number], 1 capsule By Mouth 2 [...] 28 tablet, 0 Refills, Maintenance, [facility], 184, cm, 02/01/21 10:51:00 EDT, Height, 123.27, kg, 06/25/19 13:22:00 EST, Dry Weight Start Date: 02/01/21 Status: Ordered Tylenol Extra Strength 500 mg oral tablet 2 tablet = 1,000 mg, By Mouth, 3 times a day, PRN as needed for pain, # 100 tablet, 5 Refills, Maintenance, 12/07/21 10:44:00 EDT, Tablet, [id number], Partial fill upon patient request if theprescription [...] provided increased discomfort related to nerves. 3Seeing [place] neurology and sleep. Given a trial of Tegretol 200 mg upto 2 tablets twice a day andadvised to continue with Lyrica 300 mg twice a day. Had some improvement of the facial pain with this regimen. 4Seeing [place] neurology and asleep. On 09/11/2018 started on [...]
--- OUTSIDE RECORDS SUMMARY | 2023-11-02 08:25 | XMS_ITS | Continuity of Care Document ---
Author Organization [facility] Address [address] [place] [address]- Care Team Providers Care Brush Clearing Laborer Name Role Phone Dayo Castano MD Primary Care Physician Encounter [facility] Date(s): 07/25/23 - 08/24/[address] [address]- Allergies, Adverse Reactions, Alerts Substance Reaction Severity [...] influenza virus vaccine, inactivated 04/16/15 Give n [id number] 12y+ bivalent booster vax 02/21/23 Given SARS-CoV-2 (COVID-19) mRNA BNT-162b2 vac 1 06/01/21 Given SARS-CoV-2 (COVID-19) mRNA BNT-162b2 vac 11/07/20 Recorded SARS-CoV-2 (COVID-19) mRNA BNT-162b2 vac 10/17/20 Recorded zoster vaccine, inactivated 06/18/19 Recorded zoster vaccine, inactivated 06/17/19 Recorded zoster vaccine, inactivated 11/25/17 Recorded Influenza Vaccine (oldterm) 02/17/17 Recorded pneumococcal 23-valent vaccine 02/16/16 Given tetanus/diphtheria/pertussis, acel(Tdap) 11/25/14 Given 1Result Comment: DILUENT LOT#: [id number] EXP: 11/2022 MFG: FRESENSIUS Medications Albuterol (Eqv-ProAir [...] Mouth, Daily at bedtime, Rx'd by neurology ([facility]), # 30 tablet, 0 Refills, Maintenance, [...] times a day, PRN as needed for itching, DO NOT TAKE WITH FEXOFENADINE, # 100 capsule, 0 Refills, Maintenance, 08/11/23 10:01:00 EST, Capsule, [id number], Partial fill upon patient request if the prescription is f... Start Date: 08/11/23 Status: Ordered Blood Pressure Monitor See Instructions, [...] length 99 months Please send to [place] [facility], 01/21/21 13:20:00 EDT, Supply Start Date: 01/21/21 Status: Ordered carbidopa-levodopa 25 mg-100 mg oral tablet 1 tablet, By Mouth, 2 times a day, Rx'd by neurology at [facility], # 60 tablet, 0 Refills, Maintenance, 10/04/22 8:23:00 EDT, Tablet, Partial fill upon patient request if the prescription is for a schedule II opioid drug. Start Date: 10/04/22 Status: Ordered chlorthalidone 25 mg oral tablet 25 mg, 1, tablet, By Mouth, Daily in AM, Blood pressure, # 90 tablet, Refills 3, Tot. Refills 3, Maintenance, 04/04/23 8:45:00 EDT, Route to Pharmacy Electronically, [facility]/pharmacy #[id number], Partial fill upon patient [...] 10/06/23 14:26:00 EDT, 08/07/23 14:26:00 EST, Cream, [facility]/pharmacy #[id number], Partial fill upon patient [...] 04/04/23 8:46:00 EDT, Route to Pharmacy Electronically, [facility]/pharmacy #[id number], 183, cm, 04/04/23 8:24:00 EDT, [...] Gm, 5 Refills, Maintenance, 07/04/23 8:59:00 EST, [facility]/pharmacy #[id number], 30, APPLY TOPICALLY TO [...] Daily at bedtime, Rx'd by neurology at [facility], 0 Refills, Maintenance, 10/04/22 8:24:00 EDT, Capsule, Partial fill upon patient request if the prescription is for a schedule II opioid drug. Start Date: 10/04/22 Status: Ordered loratadine 10 mg oral tablet 1, tablet, By Mouth, Daily, PRN, # 90 tablet, Refills 3, Tot. Refills 3, NEEDED FOR ALLERGIES, 04/04/23 8:42:00 EDT, Route to Pharmacy Electronically, [facility]/pharmacy #[id number], 183, cm, 04/04/23 8:24:00EDT, Height, 123.2, kg, 02/07/22 12:47:00 EDT, Dry... Start Date: 04/04/23 Status: Ordered Metamucil 3.4 gm/5.2 gm oral powder for reconstitution = 3.4 Gm, By Mouth, 3 times a day, PRN as needed for constipation, # 425 Gm, 11 Refills, Maintenance, 08/07/23 14:34:00 EST, REC Powder, [facility]/pharmacy #[id number], Partial fill upon patient [...] SMOKING CESSATION, # 40 gum, 0 Refills, [id number], 184, cm, 12/27/21 11:50:00 EDT, Height Start [...] Stop 03/29/24 8:46:00 EDT, 04/04/23 8:46:00 EDT, [id number], 1 capsule By Mouth 2 times a day,x90 days, 183, cm, 04/04/23 8:24:00 EDT, Height, 123.2, kg, 2... Start Date: 04/04/23 Stop Date: 03/29/24 Status: [...] Gm, 1 Refills, Maintenance, 04/04/23 8:46:00 EDT, [facility]/pharmacy #[id number], 14,DISSOLVE 17 GRAMS IN WATER & DRINK ONCE A DAY UNTIL BM,... Start Date: 04/04/23 Status: Ordered pregabalin 300 mg oral capsule 1 capsule = 300 mg, By Mouth, 2 times a day, Rx'd by neurology at [facility], # 60 capsule, 0 Refills, Maintenance, 10/04/22 8:24:00 EDT, Capsule, Partial fill upon patient request if the prescription is for a schedule II opioid drug. Start Date: 10/04/22 Status: Ordered primidone 50 mg oral tablet 100 mg, 2, tablet, By Mouth, 2 times a day, rx'd by neurology at [facility], # 120 tablet, Refills 0, Maintenance, [...] times a day, Rx'd by neurology at [facility], # 270 tablet, 0 Refills, Maintenance, [...] Maintenance, DX: M51. 26 please send to [facility], 08/08/22 15:41:00 EST, Supply Start Date: 08/08/22 Status: Ordered Symbicort 160mcg/4.5mcg Inhaler 2, puffs, Inhalation, 2 times a day, # 6 Gm, Refills 11, Tot. Refills 11, Maintenance, 08/07/23 14:39:00 EST, Aerosol, Route to Pharmacy Electronically, [id number], [facility]/pharmacy #[id number], 183, cm, 08/07/23 14:26:00 EST, Height,... [...] 11 Refills, Maintenance, 04/04/23 8:43:00 EDT, Tablet, [facility]/pharmacy #[id number], Partial fill upon patient [...] Refills, Maintenance, 02/15/23 11:23:00 EDT, Aerosol, [id number], Partial fill upon patient request if the [...] Confirmed Active KERMIT (obstructive sleep apnea): bipap 19 2 liters oxygen Confirmed Active Osteoarthritis of [...] provided increased discomfort related to nerves. 3Seeing [place] neurology and sleep. Given a trial of [...] Care Team Personnel Name: Olimpia Parker Position: [facility] J[facility]AN Office Staff Member Role: Lifetime Consulting Physician Name: Dayo Castano MD Position: [facility] Physician - Primary Care Member Role: PCP Address: Address: [address] [place] [address]- Care Team Related Persons Name: JOSIAS BRADFORDE Address: home [address] [place] [address] Name: LOLA BRADFORD Address: home [address] [place] [address] Name: GOLDIE LERMA Address: [place] [address] Name: OLIMPIA LERMA Address: [place] [address] Name: KADE LERMA Address: home [address] [place] [id number] Name: KADE LERMA Address: home [address] [place] [id number]
--- OUTSIDE RECORDS SUMMARY | 2023-11-02 08:25 | XMS_ITS | Continuity of Care Document ---
Author Organization [facility] Address [address] [place] [address]- Care Team Providers Care Deputy Chief Magistrate Name Role Phone Dayo Castano MD Primary Care Physician Encounter [facility] Date(s): 03/15/23 - 04/14/[address] [address]- Allergies, Adverse Reactions, Alerts Substance Reaction Severity Status penicillin Unknown Active gabapentin Active SEROquel Active traZODone Active hydrOXYzine hydrochloride Ac tive Lantus Active ZyrTEC Active Ventolin HFA Active Flovent HFA Active Immunizations Given and Recorded Vaccine Date Status Refusal Reason influenza virus vaccine, inactivated 04/04/23 Give n [...] influenza virus vaccine, inactivated 04/16/15 Give n [id number] 12y+ bivalent booster vax 02/21/23 Given SARS-CoV-2 (COVID-19) mRNA BNT-162b2 vac 1 06/01/21 Given SARS-CoV-2 (COVID-19) mRNA BNT-162b2 vac 11/07/20 Recorded SARS-CoV-2 (COVID-19) mRNA BNT-162b2 vac 10/17/20 Recorded zoster vaccine, inactivated 06/18/19 Recorded zoster vaccine, inactivated 06/17/19 Recorded zoster vaccine, inactivated 11/25/17 Recorded Influenza Vaccine (oldterm) 02/17/17 Recorded pneumococcal 23-valent vaccine 02/16/16 Given tetanus/diphtheria/pertussis, acel(Tdap) 11/25/14 Given 1Result Comment: DILUENT LOT#: [id number] EXP: 11/2022 MFG: FRESENSIUS Medications Albuterol (Eqv-ProAir [...] Mouth, Daily at bedtime, Rx'd by neurology ([facility]), # 30 tablet, 0 Refills, Maintenance, 12/08/22 [...] Need length 99 months Please send to [place] [facility], 01/21/21 13:20:00 EDT, Supply Start Date: 01/21/21 Status: Ordered carbidopa-levodopa 25 mg-100 mg oral tablet 1 tablet, By Mouth, 2 times a day, Rx'd by neurology at [facility], # 60 tablet, 0 Refills, Maintenance, 10/04/22 8:23:00 EDT, Tablet, Partial fill upon patient request if the prescription is for a schedule II opioid drug. Start Date: 10/04/22 Status: Ordered chlorthalidone 25 mg oral tablet 25 mg, 1, tablet, By Mouth, Daily in AM, Blood pressure, # 90 tablet, Refills 3, Tot. Refills 3, Maintenance, 04/04/23 8:45:00 EDT, Route to Pharmacy Electronically, [facility]/pharmacy #[id number], Partial fill upon patient request if the [...] 04/04/23 8:46:00 EDT, Route to Pharmacy Electronically, [facility]/pharmacy #[id number], 183, cm, 04/04/23 8:24:00 EDT, Height, [...] Gm, 5 Refills, Maintenance, 01/26/23 9:21:00 EDT, [facility]/pharmacy #[id number], 30, APPLY TOPICALLY TO AFFECTED ARE TWICEA DAY NEEDED FOR PAIN, 183, cm, 01/26/23 9:04:00... Start Date: 01/26/23 Status: Ordered FREESTYLE 28G LANCETS FREESTYLE 28G [...] at bedtime, Rx'd by neurology at [facility], 0 Refills, Maintenance, 10/04/22 8:24:00 EDT, Capsule, Partial fill upon patient request if the prescription is for a schedule II opioid drug. Start Date: 10/04/22 Status: Ordered loratadine 10 mg oral tablet 1, tablet, By Mouth, Daily, PRN, # 90 tablet, Refills 3, Tot. Refills 3, NEEDED FOR ALLERGIES, 04/04/23 8:42:00 EDT, Route to Pharmacy Electronically, [facility]/pharmacy #[id number], 183, cm, 04/04/23 8:24:00EDT, Height, 123.2, kg, 02/07/22 12:47:00 EDT, Dry... Start Date: 04/04/23 Status: Ordered Metamucil 3.4 gm/5.2 gm oral powder for reconstitution = 3.4 Gm, By Mouth, 3 times a day, PRN as needed for constipation, # 425 Gm, 11 Refills, Maintenance, 09/12/22 20:51:00 EDT, REC Powder, [facility]/pharmacy #[id number], Partial fill upon patient request [...] SMOKING CESSATION, # 40 gum, 0 Refills, [facility] [id number], 184, cm, 12/27/21 11:50:00 EDT, Height Start [...] Stop 03/29/24 8:46:00 EDT, 04/04/23 8:46:00 EDT, [facility]/pharmacy #[id number], 1 capsule By Mouth 2 times a day,x90 days, 183, cm, 04/04/23 8:24:00 EDT, Height, 123.2, kg, 01/18... Start Date: 04/04/23 Stop Date: 03/29/24 Status: Ordered omeprazole 20 mg oral enteric coated capsule 1 capsule, By Mouth, Daily, # 90 capsule, 3 Refills, Maintenance, 04/04/23 8:46:00 EDT, [facility]/pharmacy #[id number], 183, cm, 04/04/23 8:24:00 EDT, Height, [...] Gm, 1 Refills, Maintenance, 04/04/23 8:46:00 EDT, [facility]/pharmacy #[id number], 14,DISSOLVE 17 GRAMS IN WATER & DRINK ONCE A DAY UNTIL BM,... Start Date: 04/04/23 Status: Ordered pregabalin 300 mg oral capsule 1 capsule = 300 mg, By Mouth, 2 times a day, Rx'd by neurology at [facility], # 60 capsule, 0 Refills, Maintenance, 10/04/22 8:24:00 EDT, Capsule, Partial fill upon patient request if the prescription is for a schedule II opioid drug. Start Date: 10/04/22 Status: Ordered primidone 50 mg oral tablet 100 mg, 2, tablet, By Mouth, 2 times a day, rx'd by neurology at [facility], # 120 tablet, Refills 0, Maintenance, 12/08/22 [...] a day, Rx'd by neurology at [facility], # 270 tablet, 0 Refills, Maintenance, [...] Maintenance, DX: M51. 26 please send to [facility], 08/08/22 15:41:00 EST, Supply Start Date: 08/08/22 Status: Ordered Symbicort 160mcg/4.5mcg Inhaler 2, puffs, Inhalation, 2 times a day, # 6 Gm, Refills 11, Tot. Refills 11, Maintenance, 04/04/23 8:44:00 EDT, Aerosol, Route to Pharmacy Electronically, [id number], [facility]/pharmacy #[id number], 183, cm, 04/04/23 8:24:00 EDT, Height, [...] 11 Refills, Maintenance, 04/04/23 8:43:00 EDT, Tablet, [facility]/pharmacy #[id number], Partial fill upon patient request if theprescription is for a schedule II opioid drug., 183... Start Date: 04/04/23 Status: Ordered valsartan 320 mg oral tablet 1 tablet, By Mouth, Daily, blood pressure, # 90 tablet, 3 Refills, Maintenance, 04/04/23 8:46:00 EDT, [facility]/pharmacy #[id number], 183, cm, 04/04/23 8:24:00 EDT, Height, 123.2, kg, 02/07/22 12:47:00 EDT, Dry Weight Start Date: 04/04/23 Status: Ordered Xopenex HFA 45 mcg/inh inhalation aerosol 2 puffs, Inhalation, Every 4 hours, PRN Wheezing/Shortness of Breath, replaces Ventolin due to reaction, # 1 each, 1 Refills, Maintenance, 02/15/23 11:23:00 EDT, Aerosol, [facility]/pharmacy #[id number], Partial fill upon patient request if the prescription is for... Start Date: 02/15/23 Stop Date: 04/16/23 Status: Ordered Problem List Condition Confirmation Course Effective Dates Status H ealth Status Informant Polyp of colon, adenomatous 1 Confirmed 2/21/17 Active Atypical facial pain, left 2, 3 [...] provided increased discomfort related to nerves. 3Seeing [place] neurology and sleep. Given a trial of [...] Consulting Physician Name: Dayo Castano MD Position: [facility] Physician - Primary Care Member Role: PCP Address: Address: [address] [place] [address]- [place] Care Team Related Persons Name: JARROD BRADFORD Address: home [address] [place] [address] Name: LOLA BRADFORD Address: home [address] [place] [address] Name: GOLDIE LERMA Address: [place] [address] Name: OLIMPIA LERMA Address: [place] [address] Name: KADE LERMA Address: home [address] [place] [address] Name: KADE LERMA Address: home [address] [place] [address]
--- OUTSIDE RECORDS SUMMARY | 2023-11-02 08:25 | XMS_ITS | Continuity of Care Document ---
Author Organization [facility] Address [address] [place] [address]- Care Team Providers Care Loss Prevention Lead Name Role Phone Contractor Krystal FERNANDEZ Primary Care Physician [phone] Encounter [facility] [place] Date(s): 06/22/21 - 07/22/[address] [address]- Allergies, Adverse Reactions, Alerts Substance Reaction Severity [...] acel(Tdap) 11/25/14 Given 1Result Comment: DILUENT LOT#: [id number] EXP: 11/2022 MFG: FRESENSIUS Medications amitriptyline 100 mg oral tablet 1 tablet = 100 mg, By Mouth, Daily at bedtime, # 30 tablet, 3 Refills, Maintenance, 04/13/21 10:02:00 EDT, Tablet, [facility]/pharmacy #[id number], Partial fill upon patient [...] 3 Refills, Maintenance, 03/03/21 17:24:00 EDT, Tablet, [facility]/pharmacy #[id number], Partial fill upo... Start Date: 03/03/21 Status: Ordered aspirin 81 mg oral delayed release tablet 81 mg, 1, tablet, By Mouth, Daily, # 90 tablet, Refills 0, Tot. Refills 0, Maintenance, 01/01/21 11:26:00 EDT, Route to Pharmacy Electronically, [facility]/pharmacy #[id number], Partial fill upon patient [...] Need length 99 months Please send to [place] [facility], 01/21/21 13:20:00 EDT, Supply Start Date: 01/21/21 Status: Ordered carbidopa-levodopa 25 mg-100 mg oral tablet 1 tablet, By Mouth, 3 times a day, Rx'd by Neurology at [facility] [place]/ Dr. Murphy, # 270 tablet, 0 Refills, Maintenance, 04/15/21 23:30:00 EDT, Tablet, Partial fill upon patient request if the prescription is for a schedule II opioid drug. Start Date: 04/15/21 Status: Ordered chlorthalidone 25 mg oral tablet 1, tablet, By Mouth, Daily, # 30 tablet, Refills 5, Route to Pharmacy Electronically, [facility]ORE [id number], 184, cm, 03/30/21 16:08:00 EDT, Height, 123.27, kg, 06/25/19 13:22:00 EST, Dry Weight Start Date: 04/07/21 Status: Ordered Claritin 10 mg oral tablet 10 mg, 1, tablet, By Mouth, Daily, more sea necesario para alergia, # 30 tablet, Refills 5, Tot. Refills 5, Maintenance, 04/13/21 10:04:00 EDT, Route to Pharmacy Electronically, [facility]/pharmacy #[id number], 184, cm, 04/13/21 9:26:00 EDT, Height, 123.27, kg, 01... Start Date: 04/13/21 Status: Ordered clonazePAM 2 mg oral tablet See Instructions, 1 tablet by mouth only NEEDED for severe panic attack. Dispense: #20 tabs per 30d., # 20 tablet, 0 Refills, Maintenance, 07/15/21 14:39:00 EST, Tablet, [facility]/pharmacy #[id number], Partial fill upon patient [...] 0 Refills, Maintenance, 03/03/21 17:36:00 EDT, Cream, [facility]/pharmacy #[id number], Partial fill upon patient request if the prescription is for a schedule II opioid drug., 1 application Topically 3 ti... Start Date: 03/03/21 Status: Ordered cyanocobalamin 1000 mcg oral tablet 1,000 mcg, 1, tablet, By Mouth, Daily, # 90 tablet, Refills 11, Tot. Refills 11, Maintenance, 08/02/23 13:12:00 EST, Route to Pharmacy Electronically, [facility]/pharmacy #[id number], 184, cm, 01/01/21 10:56:00 [...] 5 Refills, Maintenance, 01/11/21 15:23:00 EDT, Tablet, [facility]/pharmacy #[id number], Partial fill upon patient request if the prescription is for a schedule II opioid drug., 184, cm,... Start Date: 01/11/21 Status: Ordered escitalopram 20 mg oral tablet 1 tablet = 20 mg, By Mouth, Daily, # 30 tablet, 3 Refills, Maintenance, 07/13/21 12:26:00 EST, Tablet, [facility]/pharmacy #[id number], d/c citalopram 10 mg, 184, cm, 06/14/21 11:01:00 EST, Height Start Date: 07/13/21 Status: Ordered fluticasone 50 mcg/inh nasal spray See Instructions, USE 1 SPRAY IN EACH NOSTRIL EVERY MORNING, # 16 mL, 3 Refills, 01/29/21 9:11:00 EDT, [facility]/pharmacy #[id number], 30, USE 1 SPRAY [...] 2 Refills, Maintenance, 02/10/21 13:09:00 EDT, Ointment, [facility]/pharmacy #[id number], Partial fill upon patient request if the prescription is for a schedule II opioid drug., 1 application Top... Start Date: 02/10/21 Status: Ordered magnesium oxide 400 mg oral tablet 1 tablet = 400 mg, By Mouth, Daily, Rx'd by Neurology at [facility] [place]/ Dr. Murphy, 0 Refills, Maintenance, 04/15/21 23:30:00 [...] 3 Refills, Maintenance, 03/03/21 17:29:00 EDT, Tablet, [facility]/pharmacy #[id number], Partial fill upon p... Start Date: 03/03/21 Status: Ordered nicotine 21 mg/24 hr transdermal film, extended release 1 patch, Topically, Daily, for 6 week(s), Rx in [place], # 42 patch, 1 Refills, Acute 08/16/21 16:13:00 EST, 05/24/21 16:13:00 EST, Patch, [facility]/pharmacy #[id number], Partial fill upon patient [...] Mouth, Daily, # 90 capsule, 0 Refills, [facility] [id number], 184, cm, 06/14/21 11:01:00 EST, Height, 123.27, [...] 28 tablet, 0 Refills, Maintenance, [facility], 184, cm, 02/01/21 10:51:00 EDT, Height, 123.27, kg, 06/25/19 13:22:00 EST, Dry Weight Start Date: 02/01/21 Status: Ordered Tylenol Extra Strength 500 mg oral tablet 2 tablet = 1,000 mg, By Mouth, 3 times a day, PRN as needed for pain, # 100 tablet, 5 Refills, Maintenance, 04/13/21 10:08:00 EDT, Tablet, [facility]/pharmacy #[id number], Partial fill upon patient [...] provided increased discomfort related to nerves. 3Seeing [place] neurology and sleep. Given a trial of Tegretol 200 mg upto 2 tablets twice a day andadvised to continue with Lyrica 300 mg twice a day. Had some improvement of the facial pain with this regimen. 4Seeing [place] neurology and asleep. On 09/11/2018 started on [...]
--- OUTSIDE RECORDS SUMMARY | 2023-11-02 08:25 | XMS_ITS | Continuity of Care Document ---
Author Organization [facility] Address [address] [place] [address]- Care Team Providers Care Journeyman Electrician Pv Installer Name Role Phone Terence PRATHER, Azra Primary Care Physician [place] [facility] [place] 03/20/20 [facility] [address] [place] [address]- [facility] Allergies, Adverse Reactions, Alerts Substance [...] 01/15/20 9:51:00 EDT, Route to Pharmacy Electronically, [facility]/pharmacy #[id number], 184, cm, 01/15/20 9:11:00 EDT, Height, 123.27, [...] 02/07/20 9:49:00 EDT, [facility], # 16 mL, 0 Refills, Maintenance, [facility] 71056, 30, USE 1 SPRAY IN EACH NOSTRIL [...] provided increased discomfort related to nerves. 3Seeing [place] neurology and sleep. Given a trial of Tegretol 200 mg upto 2 tablets twice a day andadvised to continue with Lyrica 300 mg twice a day. Had some improvement of the facial pain with this regimen. 4Seeing [place] neurology and asleep. On 09/11/2018 started on [...]
--- OUTSIDE RECORDS SUMMARY | 2023-11-02 08:25 | XMS_ITS | Continuity of Care Document ---
Author Organization [facility] Address [address] [place] [address]- Care Team Providers Care Workers Compensation Claims Examiner Name Role Phone Terence PRATHER, Azra Primary Care Physician Encounter [facility] [place] Date(s): 03/19/20 - 04/18/20 [facility] [address] [place] [address]- [facility] Attending Physician: Cristian Padilla Admitting Physician: AdmCristian [...] 01/15/20 9:51:00 EDT, Route to Pharmacy Electronically, [facility]/pharmacy #[id number], 184, cm, 01/15/20 9:11:00 EDT, Height, 123.27, kg, 06/25/19 13:22:00 EST, Dry Weight Start Date: 01/15/20 Stop Date: 03/15/20 Status: Ordered aspirin 81 mg oral tablet 1 tablet = 81 mg, By Mouth, Daily, # 90 tablet, 3 Refills, Maintenance, 01/15/20 9:51:00 EDT, Tablet, [facility]/pharmacy #[id number], 184, cm, 01/15/20 [...] 02/07/20 9:49:00 EDT, Route to Pharmacy Electronically, [facility]/pharmacy #[id number], 184, cm, 01/29/20 [...] 08/17/20 13:12:00 EST, Route to Pharmacy Electronically, [facility]/pharmacy #[id number], 184, cm, 02/28/20 [...] 3 Refills, Maintenance, 01/15/20 9:51:00 EDT, Tablet, [facility]/pharmacy #[id number], 184, cm, 01/15/20 9:11:00 EDT, Height, 123.27, kg, 06/25/19 13:22:00 EST, Dry Weight Start Date: 01/15/20 Stop Date: 03/15/20 Status: Ordered fluticasone 50 mcg/inh nasal spray See Instructions, USE 1 SPRAY IN EACH NOSTRIL EVERY MORNING, # 16 mL, 0 Refills, Maintenance, [facility] STORE [facility]80, 30, USE 1 SPRAY IN EACH NOSTRIL [...]
--- OUTSIDE RECORDS SUMMARY | 2023-11-02 08:25 | XMS_ITS | Continuity of Care Document ---
Author Organization [facility] Address [address] [place] [address]- Care Team Providers Care Executive Manager Name Role Phone Ivone Oneil MD Primary Care Physician Encounter [facility] Date(s): 11/30/21 - 01/01/[address] [address]- Attending Physician: Not on Staff, Attending MD [...] acel(Tdap) 11/25/14 Given 1Result Comment: DILUENT LOT#: [id number] EXP: 11/2022 MFG: FRESENSIUS Medications amitriptyline 100 mg oral tablet 1 tablet = 100 mg, By Mouth, Daily at bedtime, # 30 tablet, 3 Refills, Maintenance, 12/27/21 12:09:00 EDT, Tablet, [facility]/pharmacy #[id number], Partial fill upon patient request if [...] 3 Refills, Maintenance, 03/03/21 17:24:00 EDT, Tablet, [facility]/pharmacy #[id number], Partial fill upo... Start Date: 03/03/21 [...] Need length 99 months Please send to [place] [facility], 01/21/21 13:20:00 EDT, Supply Start Date: 01/21/21 Status: Ordered chlorthalidone 25 mg oral tablet 1, tablet, By Mouth, Daily, # 30 tablet, Refills 5, Tot. Refills 5, 09/28/21 8:08:00 EDT, Route to Pharmacy Electronically, [facility]/pharmacy #[id number], 184, cm, 09/15/21 9:12:00 EDT, Height Start Date: 09/28/21 Status: Ordered clonazePAM 2 mg oral tablet See Instructions, 1 tablet by mouth only NEEDED for severe panic attack. Dispense: #20 tabs per 20d., # 20 tablet, 0 Refills, Maintenance, 08/18/21 15:21:00 EST, Tablet, [facility]/pharmacy #[id number], Partial fill upon patient request if [...] 07/17/26 13:12:00 EST, Route to Pharmacy Electronically, [facility]/pharmacy #[id number], 184, cm, 07/26/21 9:11:00 EST, Height Start Date: 07/17/26 Stop Date: 07/01/29 Status: Ordered cyanocobalamin 1000 mcg oral tablet 1,000 mcg, 1, tablet, By Mouth, Daily, for 90 days, # 90 tablet, Refills 11, Tot. Refills 11, Hard Stop 07/17/26 13:12:00 EST, 08/02/23 13:12:00 EST, Route to Pharmacy Electronically, [facility]/pharmacy #[id number], 184, cm, 01/01/21 10:56:00 EDT, Height, [...] 1, NEEDED FOR ALLERGIES, Route to PharmacyElectronically, [facility] STORE [id number], 184, cm, 10/18/21 13:37:00 EDT, Height Start Date: 10/22/21 Status: Ordered magnesium oxide 400 mg oral tablet 1 tablet = 400 mg, By Mouth, Daily, Rx'd by Neurology at [facility] [place]/ Dr. Murphy, 0 Refills, Maintenance, 04/15/21 23:30:00 [...] 11:13:00 EST, 10/28/21 11:13:00 EDT, REC Powder, [facility]/pharmacy #[id number], Partial fill upon patient request if [...] tablet, 3 Refills, Maintenance, 09/16/2211:15:00 EDT, Tablet, [facility]/pharmacy #[id number], Partial f... Start Date: 09/15/21 Status: Ordered Mucinex DM oral tablet, extended release 1 tablet, By Mouth, Every 12 hours, for 14 days, # 28 tablet, 0 Refills, Acute 01/10/22 12:44:00 EDT, 12/27/21 12:44:00 EDT, ER Tablet, [facility]/pharmacy #[id number], Partial fill upon patient request if [...] 90 capsule, 0 Refills, 12/07/21 20:40:00 EDT, [facility]/pharmacy #[id number], 184, cm, 11/15/21 9:55:00 EDT, Height [...] M51. 26 please send to [facility], 01/21/21 13:20:00 EDT, Supply Start Date: 01/21/21 Status: Ordered Symbicort 160mcg/4.5mcg Inhaler 2, puffs, Inhalation, 2 times a day, # 6 Gm, Refills 0, Tot. Refills 0, Maintenance, 12/27/21 12:43:00 EDT, Aerosol, Route to Pharmacy Electronically, [id number], [id number], 184, cm, 12/27/21 11:50:00 EDT, Height Start Date: 12/27/21 Status: Ordered Tylenol Extra Strength 500 mg oral tablet 2 tablet = 1,000 mg, By Mouth, 3 times a day, PRN as needed for pain, # 100 tablet, 5 Refills, Maintenance, 12/07/21 10:44:00 EDT, Tablet, [facility]/pharmacy #[id number], Partial fill upon patient request if [...] provided increased discomfort related to nerves. 3Seeing [place] neurology and sleep. Given a trial of Tegretol 200 mg upto 2 tablets twice a day andadvised to continue with Lyrica 300 mg twice a day. Had some improvement of the facial pain with this regimen. 4Seeing [place] neurology and asleep. On 09/11/2018 started on [...]
--- OUTSIDE RECORDS SUMMARY | 2023-11-02 08:25 | XMS_ITS | Continuity of Care Document ---
Author Organization [facility] Address [address] [place] [address]- Care Team Providers Care Cleaner And Trimmer Name Role Phone Ivone Oneil MD Primary Care Physician [phone] [id number] Date(s[facility] 12/08/21 - 01/08/[address] [address]- Attending Physician: Aolna Rico MD Admitting Physician: Alona Rico MD Allergies, Adverse Reactions, Alerts Substance Reaction Severity Status penicillin Unknown Active gabapentin Active Flovent HFA Active SEROquel Active hydrOXYzine hydrochloride Ac tive [...] acel(Tdap) 11/25/14 Given 1Result Comment: DILUENT LOT#: [id number] EXP: 11/2022 MFG: FRESENSIUS Medications amitriptyline 100 mg oral tablet 1 tablet = 100 mg, By Mouth, Daily at bedtime, # 30 tablet, 3 Refills, Maintenance, 12/27/21 12:09:00 EDT, Tablet, [facility]/pharmacy #[id number], Partial fill upon patient [...] Refills, Maintenance, 03/03/21 17:24:00 EDT, Tablet, [facility]/pharmacy #[id number], Partial fill upo... Start Date: 03/03/21 Status: Ordered aspirin 81 mg oral delayed release tablet 81 mg, 1, tablet, By Mouth, Daily, # 90 tablet, Refills 0, Tot. Refills 0, Maintenance, 01/01/21 11:26:00 EDT, Route to Pharmacy Electronically, [facility]/pharmacy #[id number], Partial fill upon patient request if the prescription is for a schedule II opioid drug... Start Date: 01/01/21 Status: Ordered atorvastatin 20 mg oral tablet 1 tablet = 20 mg, By Mouth, Daily, # 90 tablet, 1 Refills, Maintenance, 11/29/21 14:23:00 EDT, Tablet, [facility]/pharmacy #[id number], Partial fill upon patient [...] Need length 99 months [facility] send to [facility] [employer], 01/21/21 13:20:00 EDT, Supply Start Date: 01/21/21 Status: Ordered chlorthalidone 25 mg oral tablet 1, tablet, By Mouth, Daily, # 30 tablet, Refills 5, Tot. Refills 5, 09/28/21 8:08:00 EDT, Route to Pharmacy Electronically, [facility]/pharmacy #[id number], 184, cm, 09/15/21 9:12:00 EDT, Height Start Date: 09/28/21 Status: Ordered clonazePAM 2 mg oral tablet See Instructions, 1 tablet by mouth only NEEDED for severe panic attack. Dispense: #20 tabs per 20d., # 20 tablet, 0 Refills, Maintenance, 08/18/21 15:21:00 EST, Tablet, [facility]/pharmacy #[id number], Partial fill upon patient [...] 13:12:00 EST, Route to Pharmacy Electronically, [facility]/pharmacy #[id number], 184, cm, 07/26/21 9:11:00 EST, Height Start Date: 07/17/26 Stop Date: 07/01/29 Status: Ordered cyanocobalamin 1000 mcg oral tablet 1,000 mcg, 1, tablet, By Mouth, Daily, for 90 days, # 90 tablet, Refills 11, Tot. Refills 11, Hard Stop 07/17/26 13:12:00 EST, 08/02/23 13:12:00 EST, Route to Pharmacy Electronically, [facility]/pharmacy #[id number], 184, cm, 01/01/21 10:56:00 [...] NEEDED FOR ALLERGIES, Route to PharmacyElectronically, [facility] STORE 33383, 184, cm, 10/18/21 13:37:00 EDT, Height Start Date: 10/22/21 Status: Ordered magnesium oxide 400 mg oral tablet 1 tablet = 400 mg, By Mouth, Daily, Rx'd by Neurology at [facility] [place]/ Dr. Murphy, 0 Refills, Maintenance, 04/15/21 23:30:00 [...] EST, 10/28/21 11:13:00 EDT, REC Powder, [facility]/pharmacy #[id number], Partial fill upon patient [...] 3 Refills, Maintenance, 09/16/2211:15:00 EDT, Tablet, [facility]/pharmacy #[id number], Partial f... Start Date: 09/15/21 Status: Ordered MiraLax oral powder for reconstitution = 17 Gm, By Mouth, Daily, Drink 1 time a day until bowel movement. If no bowel movement drink 2 times a day. Titrate as needed. Max 4 times a day., # 527 Gm, 0 Refills, Acute 01/16/22 14:45:00 EDT, 01/03/22 13:57:00 EDT, REC Powder, [id number] Start Date: 01/03/22 Stop Date: 01/16/22 Status: Ordered Mucinex DM oral tablet, extended release 1 tablet, By Mouth, Every 12 hours, for 14 days, # 28 tablet, 0 Refills, Acute 01/24/22 12:44:00 EDT, 01/10/22 12:44:00 EDT, ER Tablet, [id number], Partial fill upon patient request if the prescription is for a schedule II opioid drug., 1 tabl... Start Date: 01/10/22 Stop Date: 01/24/22 Status: Ordered Mucinex DM oral tablet, extended release 1 tablet, By Mouth, Every 12 hours, for 14 days, # 28 tablet, 0 Refills, Acute 01/10/22 12:44:00 EDT, 12/27/21 12:44:00 EDT, ER Tablet, [id number], Partial fill upon patient request if the prescription is for a schedule II opioid drug., 1 tabl... Start Date: 12/27/21 Stop Date: 01/10/22 Status: Ordered Nicotine 2 mg gum 1 each = 2 mg, Chew, Every 2 hours, PRN as needed for smoking cessation, # 40 each, 0 Refills, Acute 01/15/22 14:30:00 EDT, 01/03/22 14:14:00 EDT, Gum, [id number], Partial fill upon patient request if the prescription is for a schedule II opio... Start Date: 01/03/22 Stop Date: 01/15/22 Status: Ordered omega-3 polyunsaturated fatty acids ethyl [...] Maintenance, DX: M51. 26 please send to [facility], 01/21/21 13:20:00 EDT, Supply Start Date: 01/21/21 Status: Ordered Symbicort 160mcg/4.5mcg Inhaler 2, puffs, Inhalation, 2 times a day, # 6 Gm, Refills 0, Tot. Refills 0, Maintenance, 12/27/21 12:43:00 EDT, Aerosol, Route to Pharmacy Electronically, [id number], [id number], 184, cm, 12/27/21 11:50:00 EDT, [...] provided increased discomfort related to nerves. 3Seeing [place] neurology and sleep. Given a trial of Tegretol 200 mg upto 2 tablets twice a day andadvised to continue with Lyrica 300 mg twice a day. Had some improvement of the facial pain with this regimen. 4Seeing [place] neurology and asleep. On 09/11/2018 started on [...]
--- OUTSIDE RECORDS SUMMARY | 2023-11-02 08:25 | XMS_ITS | Continuity of Care Document ---
Author Organization [facility] Address [address] [place] [address]- Care Team Providers Care Lead Refiner Name Role Phone Contractor Krystal FERNANDEZ Primary Care Physician Encounter [facility] [place] Date(s): 04/13/21 - 05/20/[address] [address]- Attending Physician: Not on Staff, Attending MD Referring Physician: Reshma Benson MD Allergies, Adverse Reactions, Alerts Substance Reaction [...] 3 Refills, Maintenance, 04/13/21 10:02:00 EDT, Tablet, [facility]/pharmacy #[id number], Partial fill upon patient request if [...] 01/01/21 11:26:00 EDT, Route to Pharmacy Electronically, [facility]/pharmacy #[id number], Partial fill upon patient request if [...] Need length 99 months Please send to [facility] [place], 01/21/21 13:20:00 EDT, Supply Start Date: 01/21/21 Status: Ordered carbidopa-levodopa 25 mg-100 mg oral tablet 1 tablet, By Mouth, 3 times a day, Rx'd by Neurology at [facility] [place]/ Dr. Murphy, # 270 tablet, 0 Refills, Maintenance, 04/15/21 23:30:00 EDT, Tablet, Partial fill upon patient request if the prescription is for a schedule II opioid drug. Start Date: 04/15/21 Status: Ordered chlorthalidone 25 mg oral tablet 1, tablet, By Mouth, Daily, # 30 tablet, Refills 5, Route to Pharmacy Electronically, [facility] STORE 93560, 184, cm, 03/30/21 16:08:00 EDT, Height, 123.27, kg, 06/25/19 13:22:00 EST, Dry Weight Start Date: 04/07/21 Status: Ordered Claritin 10 mg oral tablet 10 mg, 1, tablet, By Mouth, Daily, more sea necesario para alergia, # 30 tablet, Refills 5, Tot. Refills 5, Maintenance, 04/13/21 10:04:00 EDT, Route to Pharmacy Electronically, [facility]/pharmacy #[id number], 184, cm, 04/13/21 9:26:00 EDT, Height, 123.27, kg, 01... Start Date: 04/13/21 Status: Ordered clonazePAM 2 mg oral tablet 1 tablet = 2 mg, By Mouth, Daily, # 20 tablet, 0 Refills, Maintenance, 05/09/21 13:42:00 EST, [id number], Partial fill upon patient request if the prescription is for a schedule II opioid drug., 184, cm, 04/22/21 15:18:00 EDT, Height, 123.27,... Start Date: 05/09/21 Status: Ordered Compression- Lower Extremity (Knee High) See Instructions, # 1 each, Refills 3, Tot. Refills 3, Maintenance, dx bilateral leg edema, wear daily 15-20 mmHG 1 pair, 01/27/21 17:48:00 EDT, Supply Start Date: 01/27/21 Status: Ordered Cortizone-10 Intensive Healing Formula 1% topical cream 1 application, Topically, 3 times a day, PRN Itch, # 60 Gm, 0 Refills, Maintenance, 03/03/21 17:36:00 EDT, Cream, [facility]/pharmacy #[id number], Partial fill upon patient request if the prescription is for a schedule II opioid drug., 1 application Topically 3 ti... Start Date: 03/03/21 Status: Ordered cyanocobalamin 1000 mcg oral tablet 1,000 mcg, 1, tablet, By Mouth, Daily, # 90 tablet, Refills 11, Tot. Refills 11, Maintenance, 08/02/23 13:12:00 EST, Route to Pharmacy Electronically, [facility]/pharmacy #[id number], 184, cm, 01/01/21 10:56:00 EDT, Height, [...] 5 Refills, Maintenance, 01/11/21 15:23:00 EDT, Tablet, [facility]/pharmacy #[id number], Partial fill upon patient request if the prescription is for a schedule II opioid drug., 184, cm,... Start Date: 01/11/21 Status: Ordered escitalopram 5 mg oral tablet 1 tablet = 5 mg, By Mouth, Daily, This is a decrease in dose, # 14 tablet, 0 Refills, Maintenance, 04/05/21 15:54:00 EDT, Tablet, [facility]/pharmacy #[id number], Partial fill upon patient request if the prescription is for a schedule II opioid drug., 184, cm, 10... Start Date: 04/05/21 Stop Date: 04/19/21 Status: Ordered fluticasone 50 mcg/inh nasal spray See Instructions, USE 1 SPRAY IN EACH NOSTRIL EVERY MORNING, # 16 mL, 3 Refills, 01/29/21 9:11:00 EDT, [facility]/pharmacy #[id number], 30, USE 1 SPRAY IN EACH [...] 2 Refills, Maintenance, 02/10/21 13:09:00 EDT, Ointment, [facility]/pharmacy #[id number], Partial fill upon patient request if the prescription is for a schedule II opioid drug., 1 application Top... Start Date: 02/10/21 Status: Ordered magnesium oxide 400 mg oral tablet 1 tablet = 400 mg, By Mouth, Daily, Rx'd by Neurology at [facility]/ Dr. Murphy, 0 Refills, Maintenance, 04/15/21 23:30:00 [...] 3 Refills, Maintenance, 03/03/21 17:29:00 EDT, Tablet, [facility]/pharmacy #[id number], Partial fill upon p... Start Date: [...] Maintenance, DX: M51. 26 please send to [facility], 01/21/21 13:20:00 EDT, Supply Start Date: 01/21/21 Status: Ordered sulindac 150 mg oral tablet See Instructions, TAKE 1 TABLET BY MOUTH TWICE A DAY NEEDED FOR PAIN, # 28 tablet, 0 Refills, Maintenance, [facility], 184, cm, 02/01/21 10:51:00 EDT, Height, 123.27, [...] provided increased discomfort related to nerves. 3Seeing [place] neurology and sleep. Given a trial of Tegretol 200 mg upto 2 tablets twice a day andadvised to continue with Lyrica 300 mg twice a day. Had some improvement of the facial pain with this regimen. 4Seeing [place] neurology and asleep. On 09/11/2018 started [...]
--- OUTSIDE RECORDS SUMMARY | 2023-11-02 08:25 | XMS_ITS | Continuity of Care Document ---
Author Organization [facility] Address [address] [place] [address]- Care Team Providers Care Insurance Territory Manager Name Role Phone Contractor Krystal FERNANDEZ Primary Care Physician [phone] [facility]counter [facility] Date[facility]s): 03/17/21 - 04/16/[address] [address] Allergies, Adverse Reactions, Alerts Substance Reaction Severity [...] Maintenance, 04/13/21 10:02:00 EDT, Tablet, [facility]/pharmacy #[id number], Partial [...] Maintenance, 03/03/21 17:24:00 EDT, Tablet, [facility]/pharmacy #[id number], Partial fill upo... Start Date: 03/03/21 [...] Need length [address] months [address] [facility], 01/21/21 13:20:00 EDT, Supply Start Date: 01/21/21 Status: Ordered carbidopa-levodopa 25 mg-100 mg oral tablet 1 tablet, By Mouth, 3 times a day, Rx'd by Neurology at [facility] Alisa Sligo/ Dr. Murphy, # 270 tablet, 0 Refills, Maintenance, 04/15/21 23:30:00 EDT, Tablet, Partial fill upon patient request if the prescription is for a schedule II opioid drug. Start Date: 04/15/21 Status: Ordered chlorthalidone 25 mg oral tablet 1, tablet, By Mouth, Daily, # 30 tablet, Refills 5, Route to Pharmacy Electronically, [id number], 184, cm, 03/30/21 16:08:00 EDT, Height, 123.27, kg, 06/25/19 13:22:00 EST, Dry Weight Start Date: 04/07/21 Status: Ordered Claritin 10 mg oral tablet 10 mg, 1, tablet, By Mouth, Daily, more sea necesario para alergia, # 30 tablet, Refills 5, Tot. Refills 5, Maintenance, 04/13/21 10:04:00 EDT, Route to Pharmacy Electronically, [facility]/pharmacy #[id number], 184, cm, 04/13/21 9:26:00 EDT, Height, 123.27, kg, 01... Start Date: 04/13/21 Status: Ordered Compression- Lower Extremity (Knee High) [...] Maintenance, 03/03/21 17:36:00 EDT, Cream, [facility]/pharmacy #[id number], Partial [...] Maintenance, 01/11/21 15:23:00 EDT, Tablet, [facility]/pharmacy #[id number], Partial fill upon patient request if the prescription is for a schedule II opioid drug., 184, cm,... Start Date: 01/11/21 Status: Ordered escitalopram 5 mg oral tablet 1 tablet = 5 mg, By Mouth, Daily, This is a decrease in dose, # 14 tablet, 0 Refills, Maintenance, 04/05/21 15:54:00 EDT, Tablet, [facility]/pharmacy #[id number], Partial fill upon patient request if the prescription is for a schedule II opioid drug., 184, cm, ... Start Date: 04/05/21 Stop Date: 04/19/21 Status: Ordered fluticasone 50 mcg/inh nasal spray See Instructions, USE 1 SPRAY IN EACH NOSTRIL EVERY MORNING, # 16 mL, 3 Refills, 01/29/21 9:11:00 EDT, [facility]/pharmacy #[id number], 30, USE 1 SPRAY IN EACH [...] Maintenance, 02/10/21 13:09:00 EDT, Ointment, [facility]/pharmacy #[id number], Partial fill upon patient request if the prescription is for a schedule II opioid drug., 1 application Top... Start Date: 02/10/21 Status: Ordered magnesium oxide 400 mg oral tablet 1 tablet = 400 mg, By Mouth, Daily, [facility], 0 Refills, Maintenance, 04/15/21 23:30:00 [...] Maintenance, 03/03/21 17:29:00 EDT, Tablet, [facility]/pharmacy #[id number], Partial fill upon p... Start Date: [...] cm, 02/03/21 10:57:00 EDT, Height, 123.27, kg, 01/07/20 13:22:00 EST, Dry Weight Start Date: 02/24/21 Status: Ordered pregabalin 300 mg oral capsule TAKE 1 CAPSULE BY MOUTH TWICE A DAY NEEDED FOR PAIN Start Date: 01/29/21 Status: Ordered Shower Chair See Instructions, # 1 each, Refills 0, Tot. Refills 0, Maintenance, DX: M51. 26 please send to [facility], 01/21/21 13:20:00 EDT, Supply Start Date: 01/21/21 Status: Ordered sulindac 150 mg oral tablet See Instructions, TAKE 1 TABLET BY MOUTH TWICE A DAY NEEDED FOR PAIN, # 28 tablet, 0 Refills, Maintenance, [id number], 184, cm, 02/01/21 10:51:00 EDT, Height, 123.27, kg, 06/25/19 13:22:00 EST, Dry Weight Start Date: 02/01/21 Status: Ordered Tylenol Extra Strength 500 mg oral tablet 2 tablet = 1,000 mg, By Mouth, 3 times a day, PRN as needed for pain, # 100 tablet, 5 Refills, Maintenance, 04/13/21 10:08:00 EDT, Tablet, [id number], Partial fill upon patient request if theprescription [...] provided increased discomfort related to nerves. 3Seeing [place] neurology and sleep. Given a trial of Tegretol 200 mg upto 2 tablets twice a day andadvised to continue with Lyrica 300 mg twice a day. Had some improvement of the facial pain with this regimen. 4Seeing [place] neurology and asleep. On 09/11/2018 started on [...]
--- OUTSIDE RECORDS SUMMARY | 2023-11-02 08:25 | XMS_ITS | Continuity of Care Document ---
Author Organization [facility] Address [address] [place] [address]- Care Team Providers Care Hangar Attendant Name Role Phone Contractor Krystal FERNANDEZ Primary Care Physician [phone] [facility]counter [facility] Date(s): 05/15/21 - 06/14/[address] [address]- Allergies, Adverse Reactions, Alerts Substance Reaction Severity Status penicillin Unknown Active gabapentin Active hydrOXYzine hydrochloride Ac tive Ventolin HFA Active Flovent HFA Active traZODone Active SEROquel Active Lantus Active ZyrTEC Active Immunizations Given and Recorded Vaccine Date [...] acel(Tdap) 11/25/14 Given 1Result Comment: DILUENT LOT#: [id number] EXP: 11/2022 MFG: FRESENSIUS Medications amitriptyline 100 mg oral tablet 1 tablet = 100 mg, By Mouth, Daily at bedtime, # 30 tablet, 3 Refills, Maintenance, 04/13/21 10:02:00 EDT, Tablet, [facility]/pharmacy #[id number], Partial fill upon patient request [...] Refills, Maintenance, 03/03/21 17:24:00 EDT, Tablet, [facility]/pharmacy #[id number], Partial fill upo... Start Date: 03/03/21 Status: Ordered aspirin 81 mg oral delayed release tablet 81 mg, 1, tablet, By Mouth, Daily, # 90 tablet, Refills 0, Tot. Refills 0, Maintenance, 01/01/21 11:26:00 EDT, Route to Pharmacy Electronically, [facility]/pharmacy #[id number], Partial fill upon patient request [...] length 99 months Please send to [place] [facility], 01/21/21 13:20:00 EDT, Supply Start Date: 01/21/21 Status: Ordered carbidopa-levodopa 25 mg-100 mg oral tablet 1 tablet, By Mouth, 3 times a day, Rx'd by Neurology at [facility] Alisa [place]/ Dr. Murphy, # 270 tablet, 0 Refills, Maintenance, 04/15/21 23:30:00 EDT, Tablet, Partial fill upon patient request if the prescription is for a schedule II opioid drug. Start Date: 04/15/21 Status: Ordered chlorthalidone 25 mg oral tablet 1, tablet, By Mouth, Daily, # 30 tablet, Refills 5, Route to Pharmacy Electronically, [id number], 184, cm, 03/30/21 16:08:00 EDT, Height, 123.27, kg, 06/25/19 13:22:00 EST, Dry Weight Start Date: 04/07/21 Status: Ordered Claritin 10 mg oral tablet 10 mg, 1, tablet, By Mouth, Daily, more sea necesario para alergia, # 30 tablet, Refills 5, Tot. Refills 5, Maintenance, 04/13/21 10:04:00 EDT, Route to Pharmacy Electronically, [facility]/pharmacy #[id number], 184, cm, 04/13/21 9:26:00 EDT, Height, 123.27, kg, 01... Start Date: 04/13/21 Status: Ordered clonazePAM 2 mg oral tablet See Instructions, 1 tablet by mouth only NEEDED for severe panic attack. Dispense: #20 tabs per 30d., # 20 tablet, 0 Refills, Maintenance, 06/01/21 10:59:00 EST, Tablet, [facility]/pharmacy #[id number], Partial fill upon patient request if the prescription is... Start Date: 06/01/21 Status: Ordered Compression Stockings See Instructions, # [...] Refills, Maintenance, 03/03/21 17:36:00 EDT, Cream, [facility]/pharmacy #[id number], Partial fill upon patient request if the prescription is for a schedule II opioid drug., 1 application Topically 3 ti... Start Date: 03/03/21 Status: Ordered cyanocobalamin 1000 mcg oral tablet 1,000 mcg, 1, tablet, By Mouth, Daily, # 90 tablet, Refills 11, Tot. Refills 11, Maintenance, 08/02/23 13:12:00 EST, Route to Pharmacy Electronically, [facility]/pharmacy #[id number], 184, cm, 01/01/21 10:56:00 EDT, [...] Refills, Maintenance, 01/11/21 15:23:00 EDT, Tablet, [facility]/pharmacy #[id number], Partial fill upon patient request if the prescription is for a schedule II opioid drug., 184, cm,... Start Date: 01/11/21 Status: Ordered escitalopram 10 mg oral tablet 1 tablet = 10 mg, By Mouth, Daily, New medication for anxiety and depression (started 06/01/21), # 30 tablet, 5 Refills, Maintenance, 06/01/21 11:00:00 EST, Tablet, [facility]/pharmacy #[id number], Partial fill upon patient request [...] Refills, Maintenance, 02/10/21 13:09:00 EDT, Ointment, [facility]/pharmacy #[id number], Partial fill upon patient request if the prescription is for a schedule II opioid drug., 1 application Top... Start Date: 02/10/21 Status: Ordered magnesium oxide 400 mg oral tablet 1 tablet = 400 mg, By Mouth, Daily, Rx'd by Neurology at [facility] Alisa [place]/ Dr. Murphy, 0 Refills, Maintenance, 04/15/21 23:30:00 [...] Refills, Maintenance, 03/03/21 17:29:00 EDT, Tablet, [facility]/pharmacy #[id number], Partial fill upon p... Start Date: 03/03/21 Status: Ordered nicotine 21 mg/24 hr transdermal film, extended release 1 patch, Topically, Daily, for 6 week(s), Rx in Khmer, # 42 patch, 1 Refills, Acute 08/16/21 [...] Maintenance, DX: M51. 26 please send to [facility], 01/21/21 13:20:00 EDT, Supply Start Date: 01/21/21 Status: Ordered sulindac 150 mg oral tablet See Instructions, TAKE 1 TABLET BY MOUTH TWICE A DAY NEEDED FOR PAIN, # 28 tablet, 0 Refills, Maintenance, [id number], 184, cm, 02/01/21 10:51:00 EDT, Height, 123.27, kg, 06/25/19 13:22:00 EST, Dry Weight Start Date: 02/01/21 Status: Ordered Tylenol Extra Strength 500 mg oral tablet 2 tablet = 1,000 mg, By Mouth, 3 times a day, PRN as needed for pain, # 100 tablet, 5 Refills, Maintenance, 04/13/21 10:08:00 EDT, Tablet, [id number], Partial fill upon patient request if theprescription [...] provided increased discomfort related to nerves. 3Seeing [place] neurology and sleep. Given a trial of Tegretol 200 mg upto 2 tablets twice a day andadvised to continue with Lyrica 300 mg twice a day. Had some improvement of the facial pain with this regimen. 4Seeing [place] neurology and asleep. On 09/11/2018 started on a trial of primidone 50 mg, 1 tablet for 1 week and then twice a day. 5Seeing Aydin Catsrejon 6per pt, he is on disability, seen by Dr. Pollock 7Simvastatin 40 mg d/sedrick. Social History Social History Type Response Smoking Status 10 or more cigarette s (1/2 pack or more)/day in last 30 days; Interested in cessation: Yes; Other: 1ppd; entered on: 05/24/21 Sex
--- OUTSIDE RECORDS SUMMARY | 2023-11-02 08:26 | XMS_ITS | Continuity of Care Document ---
Author Organization [facility] Address [address] [place] [address]- Care Team Providers Care Floor Representative Name Role Phone Contractor Krystal FERNANDEZ Primary Care Physician [phone] [facility]counter [facility] Date(s): 08/24/21 - 09/23/[address] [address]- Allergies, Adverse Reactions, Alerts Substance Reaction Severity [...] acel(Tdap) 11/25/14 Given 1Result Comment: DILUENT LOT#: [id number] EXP: 11/2022 MFG: FRESENSIUS Medications amitriptyline 100 mg oral tablet 1 tablet = 100 mg, By Mouth, Daily at bedtime, # 30 tablet, 3 Refills, Maintenance, 08/11/21 10:02:00 EST, Tablet, [facility]/pharmacy #[id number], Partial fill upon patient [...] Refills, Maintenance, 03/03/21 17:24:00 EDT, Tablet, [facility]/pharmacy #[id number], Partial fill upo... Start [...] mg, By Mouth, Daily, # 90 tablet, 0 Refills, Maintenance, 09/15/21 12:17:00 EDT, Tablet, [facility]/pharmacy #[id number], Partial fill upon patient request if the prescription is for a schedule II opioid drug., 184, cm, 09/15/21 9:12:00 EDT, Height Start Date: 09/15/21 Status: Ordered Auto CPAP Auto CPAP, See [...] Need length 99 months Please send to [facility], 01/21/21 13:20:00 EDT, Supply Start Date: 01/21/21 Status: Ordered carbidopa-levodopa 25 mg-100 mg oral tablet 1 tablet, By Mouth, 3 times a day, [facility] [place]/ Dr. Murphy, # 270 tablet, 0 Refills, Maintenance, 04/15/21 23:30:00 EDT, Tablet, Partial fill upon patient request if the prescription is for a schedule II opioid drug. Start Date: 04/15/21 Status: Ordered chlorthalidone 25 mg oral tablet 1, tablet, By Mouth, Daily, # 30 tablet, Refills 5, Route to Pharmacy Electronically, [id number], 184, cm, 03/30/21 16:08:00 EDT, Height, 123.27, kg, 06/25/19 13:22:00 EST, Dry Weight Start Date: 04/07/21 Status: Ordered Claritin 10 mg oral tablet 10 mg, 1, tablet, By Mouth, Daily, more sea necesario para alergia, # 30 tablet, Refills 5, Tot. Refills 5, Maintenance, 04/13/21 10:04:00 EDT, Route to Pharmacy Electronically, [facility]/pharmacy #[id number], 184, cm, 04/13/21 9:26:00 EDT, Height, 123.27, kg, 01... Start Date: 04/13/21 Status: Ordered clonazePAM 2 mg oral tablet See Instructions, 1 tablet by mouth only NEEDED for severe panic attack. Dispense: #20 tabs per 20d., # 20 tablet, 0 Refills, Maintenance, 08/18/21 15:21:00 EST, Tablet, [facility]/pharmacy #[id number], Partial fill upon patient [...] Refills, Maintenance, 03/03/21 17:36:00 EDT, Cream, [facility]/pharmacy #[id number], Partial fill upon patient request if the prescription is for a schedule II opioid drug., 1 application Topically 3 ti... Start Date: 03/03/21 Status: Ordered cyanocobalamin 1000 mcg oral tablet 1,000 mcg, 1, tablet, By Mouth, Daily, # 90 tablet, Refills 11, Tot. Refills 11, Maintenance, 07/17/26 13:12:00 EST, Route to Pharmacy Electronically, [facility]/pharmacy #[id number], 184, cm, 07/26/21 9:11:00 EST, Height Start Date: 07/17/26 Stop Date: 07/01/29 Status: Ordered cyanocobalamin 1000 mcg oral tablet 1,000 mcg, 1, tablet, By Mouth, Daily, for 90 days, # 90 tablet, Refills 11, Tot. Refills 11, Hard Stop 07/17/26 13:12:00 EST, 08/02/23 13:12:00 EST, Route to Pharmacy Electronically, [facility]/pharmacy #[id number], 184, cm, 01/01/21 10:56:00 [...] Refills, Maintenance, 01/11/21 15:23:00 EDT, Tablet, [facility]/pharmacy #[id number], Partial fill upon patient request if the prescription is for a schedule II opioid drug., 184, cm,... Start Date: 01/11/21 Status: Ordered escitalopram 20 mg oral tablet 1 tablet = 20 mg, By Mouth, Daily, # 30 tablet, 3 Refills, Maintenance, 07/13/21 12:26:00 EST, Tablet, [facility]/pharmacy #[id number], d/c citalopram 10 mg, 184, cm, 06/14/21 11:01:00 EST, Height Start Date: 07/13/21 Status: Ordered fluticasone 50 mcg/inh nasal spray See Instructions, USE 1 SPRAY IN EACH NOSTRIL EVERY MORNING, # 16 mL, 3 Refills, 01/29/21 9:11:00 EDT, [facility]/pharmacy #[id number], 30, USE 1 SPRAY [...] Refills, Maintenance, 02/10/21 13:09:00 EDT, Ointment, [facility]/pharmacy #[id number], Partial fill upon patient request if the prescription is for a schedule II opioid drug., 1 application Top... Start Date: 02/10/21 Status: Ordered magnesium oxide 400 mg oral tablet 1 tablet = 400 mg, By Mouth, Daily, Rx'd by Neurology at [facility]/ Dr. Murphy, 0 Refills, Maintenance, 04/15/21 23:30:00 [...] 3 Refills, Maintenance, 09/16/2211:15:00 EDT, Tablet, [facility]/pharmacy #[id number], Partial f... Start Date: 09/15/21 Status: Ordered omega-3 polyunsaturated fatty acids ethyl esters 1000 mg oral capsule 1 capsule = 1,000 mg, By Mouth, 2 times a day, # 60 capsule, 11 Refills, Maintenance, 12/27/21 11:25:00 EDT, Capsule, [facility]/pharmacy #[id number], 1 capsule By Mouth [...] 12/27/21 11:25:00 EDT, 01/01/21 11:25:00 EDT, Capsule, [facility]/pharmacy #[id number], 184, cm, 01/01/21 10:56:00 EDT, Height, 123.27, kg, 06/25/19 13:22:00 EST, Dry W... Start Date: 01/01/21 Stop Date: 12/27/21 Status: Ordered omeprazole 20 mg oral enteric coated capsule 1 capsule, By Mouth, Daily, # 90 capsule, 0 Refills, [facility], 184, cm, 06/14/21 11:01:00 EST, Height, 123.27, [...] Maintenance, DX: M51. 26 please send to [facility], 01/21/21 13:20:00 EDT, Supply Start Date: 01/21/21 Status: Ordered sulindac 150 mg oral tablet See Instructions, TAKE 1 TABLET BY MOUTH TWICE A DAY NEEDED FOR PAIN, # 28 tablet, 0 Refills, Maintenance, [facility], 184, cm, 02/01/21 10:51:00 EDT, Height, 123.27, [...] provided increased discomfort related to nerves. 3Seeing [place] neurology and sleep. Given a trial of Tegretol 200 mg upto 2 tablets twice a day andadvised to continue with Lyrica 300 mg twice a day. Had some improvement of the facial pain with this regimen. 4Seeing [place] neurology and asleep. On 09/11/2018 started on [...]
--- OUTSIDE RECORDS SUMMARY | 2023-11-02 08:26 | XMS_ITS | Continuity of Care Document ---
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 Name Role Phone Dayo Castano MD Primary Care Physician [facility] Date[facility]s): 06/20/23 - 07/20/[address] [address]- Allergies, Adverse Reactions, Alerts Substance Reaction Severity [...] influenza virus vaccine, inactivated 04/16/15 Give n [id number] 12y+ bivalent booster vax 02/21/23 Given SARS-CoV-2 (COVID-19) mRNA BNT-162b2 vac 1 06/01/21 Given SARS-CoV-2 (COVID-19) mRNA BNT-162b2 vac 11/07/20 Recorded SARS-CoV-2 (COVID-19) mRNA BNT-162b2 vac 10/17/20 Recorded zoster vaccine, inactivated 06/18/19 Recorded zoster vaccine, inactivated 06/17/19 Recorded zoster vaccine, inactivated 11/25/17 Recorded Influenza Vaccine (oldterm) 02/17/17 Recorded pneumococcal 23-valent vaccine 02/16/16 Given tetanus/diphtheria/pertussis, acel(Tdap) 11/25/14 Given 1Result Comment: DILUENT LOT#: [id number] EXP: 11/2022 MFG: FRESENSIUS Medications Albuterol (Eqv-ProAir [...] Mouth, Daily at bedtime, Rx'd by neurology ([facility]), # 30 tablet, 0 Refills, Maintenance, [...] Need length 99 months Please send to [facility], 01/21/21 13:20:00 EDT, Supply Start Date: 01/21/21 Status: Ordered carbidopa-levodopa 25 mg-100 mg oral tablet 1 tablet, By Mouth, 2 times a day, Rx'd by neurology at [facility], # 60 tablet, 0 Refills, Maintenance, 10/04/22 8:23:00 EDT, Tablet, Partial fill upon patient request if the prescription is for a schedule II opioid drug. Start Date: 10/04/22 Status: Ordered chlorthalidone 25 mg oral tablet 25 mg, 1, tablet, By Mouth, Daily in AM, Blood pressure, # 90 tablet, Refills 3, Tot. Refills 3, Maintenance, 04/04/23 8:45:00 EDT, Route to Pharmacy Electronically, [facility]/pharmacy #[id number], Partial fill upon patient [...] EDT, Supply Start Date: 01/27/21 Status: Ordered [facility] Advanced Healing Ointment 41% [facility] Advanced Healing Ointment 41%, See Instructions, [...] 04/04/23 8:46:00 EDT, Route to Pharmacy Electronically, [facility]/pharmacy #[id number], 183, cm, 04/04/23 8:24:00 EDT, [...] Gm, 5 Refills, Maintenance, 07/04/23 8:59:00 EST, [facility]/pharmacy #[id number], 30, APPLY TOPICALLY TO AFFECTED [...] 0 Refills, Maintenance, 07/04/23 15:05:00 EST, Tablet, [facility]/pharmacy #[id number], Partial fill upon patient [...] Daily at bedtime, Rx'd by neurology at [facility], 0 Refills, Maintenance, 10/04/22 8:24:00 EDT, Capsule, Partial fill upon patient request if the prescription is for a schedule II opioid drug. Start Date: 10/04/22 Status: Ordered loratadine 10 mg oral tablet 1, tablet, By Mouth, Daily, PRN, # 90 tablet, Refills 3, Tot. Refills 3, NEEDED FOR ALLERGIES, 04/04/23 8:42:00 EDT, Route to Pharmacy Electronically, [facility]/pharmacy #[id number], 183, cm, 04/04/23 8:24:00EDT, Height, 123.2, kg, 02/07/22 12:47:00 EDT, Dry... Start Date: 04/04/23 Status: Ordered Metamucil 3.4 gm/5.2 gm oral powder for reconstitution = 3.4 Gm, By Mouth, 3 times a day, PRN as needed for constipation, # 425 Gm, 11 Refills, Maintenance, 09/12/22 20:51:00 EDT, REC Powder, [facility]/pharmacy #[id number], Partial fill upon patient [...] SMOKING CESSATION, # 40 gum, 0 Refills, [id number], 184, cm, 12/27/21 11:50:00 EDT, Height Start [...] Stop 03/29/24 8:46:00 EDT, 04/04/23 8:46:00 EDT, [facility]/pharmacy #[id number], 1 capsule By Mouth 2 times a day,x90 days, 183, cm, 04/04/23 8:24:00 EDT, Height, 123.2, kg, /2... Start Date: 04/04/23 Stop Date: 03/29/24 Status: Ordered omeprazole 20 mg oral enteric coated capsule 1 capsule, By Mouth, Daily, # 90 capsule, 3 Refills, Maintenance, 04/04/23 8:46:00 EDT, [facility]/pharmacy #[id number], 183, cm, 04/04/23 8:24:00 EDT, [...] Gm, 1 Refills, Maintenance, 04/04/23 8:46:00 EDT, [facility]/pharmacy #[id number], 14,DISSOLVE 17 GRAMS IN WATER & DRINK ONCE A DAY UNTIL BM,... Start Date: 04/04/23 Status: Ordered pregabalin 300 mg oral capsule 1 capsule = 300 mg, By Mouth, 2 times a day, Rx'd by neurology at [facility], # 60 capsule, 0 Refills, Maintenance, 10/04/22 8:24:00 EDT, Capsule, Partial fill upon patient request if the prescription is for a schedule II opioid drug. Start Date: 10/04/22 Status: Ordered primidone 50 mg oral tablet 100 mg, 2, tablet, By Mouth, 2 times a day, rx'd by neurology at [facility], # 120 tablet, Refills 0, Maintenance, [...] times a day, Rx'd by neurology at [facility], # 270 tablet, 0 Refills, Maintenance, [...] Maintenance, DX: M51. 26 please send to [facility] [place], 08/08/22 15:41:00 EST, Supply Start Date: 08/08/22 Status: Ordered Symbicort 160mcg/4.5mcg Inhaler 2, puffs, Inhalation, 2 times a day, # 6 Gm, Refills 11, Tot. Refills 11, Maintenance, 04/04/23 8:44:00 EDT, Aerosol, Route to Pharmacy Electronically, [id number], [facility]/pharmacy #[id number], 183, cm, 04/04/23 8:24:00 EDT, [...] 11 Refills, Maintenance, 04/04/23 8:43:00 EDT, Tablet, [facility]/pharmacy #[id number], Partial fill upon patient request if theprescription is for a schedule II opioid drug., 183... Start Date: 04/04/23 Status: Ordered valsartan 320 mg oral tablet 1 tablet, By Mouth, Daily, blood pressure, # 90 tablet, 3 Refills, Maintenance, 04/04/23 8:46:00 EDT, [facility]/pharmacy #[id number], 183, cm, 04/04/23 8:24:00 EDT, [...] provided increased discomfort related to nerves. 3Seeing [place] neurology and sleep. Given a trial of [...] Care Team Personnel Name: Olimpia Parker Position: [facility] JUAN Office Staff Member Role: Lifetime Consulting Physician Name: Dayo Castano MD Position: [facility] Physician - Primary Care Member Role: PCP Address: Address: [address] [place] [address]- Care Team Related Persons Name: JARROD BRADFORD Address: home [address] [place] [address] Name: LOLA BRADFORD Address: home [address] [place] [address] Name: GOLDIE [place]ERMA Address: [place] [address] Name: IMELDA LERMANIFER Address: [place] [address] Name: KADE LERMA Address: [address] [place] [address] Name: KADE LERMA Address: home [address] [place] [address]
--- OUTSIDE RECORDS SUMMARY | 2023-11-02 08:26 | XMS_ITS | Continuity of Care Document ---
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 Name Role Phone Contractor Krystal FERNANDEZ Primary Care Physician [phone] Encounter [facility] Date(s): 04/15/21 - 05/15/[address] [address]- Allergies, Adverse Reactions, Alerts Substance Reaction Severity [...] 3 Refills, Maintenance, 04/13/21 10:02:00 EDT, Tablet, [facility]/pharmacy #[id number], [...] Need length 99 months Please send to [facility], [place], 01/21/21 13:20:00 EDT, Supply Start Date: 01/21/21 Status: Ordered carbidopa-levodopa 25 mg-100 mg oral tablet 1 tablet, By Mouth, 3 times a day, Rx'd by Neurology at [facility] Alisa Lazaro/ Dr. Murphy, # 270 tablet, 0 Refills, Maintenance, 04/15/21 23:30:00 EDT, Tablet, Partial fill upon patient request if the prescription is for a schedule II opioid drug. Start Date: 04/15/21 Status: Ordered chlorthalidone 25 mg oral tablet 1, tablet, By Mouth, Daily, # 30 tablet, Refills 5, Route to Pharmacy Electronically, [facility] STORE [id number], 184, cm, 03/30/21 16:08:00 EDT, Height, 123.27, kg, 06/25/19 13:22:00 EST, Dry Weight Start Date: 04/07/21 Status: Ordered Claritin 10 mg oral tablet 10 mg, 1, tablet, By Mouth, Daily, more sea necesario para alergia, # 30 tablet, Refills 5, Tot. Refills 5, Maintenance, 04/13/21 10:04:00 EDT, Route to Pharmacy Electronically, [facility]/pharmacy #[id number], 184, cm, 04/13/21 9:26:00 EDT, Height, 123.27, kg, 01... Start Date: 04/13/21 Status: Ordered clonazePAM 2 mg oral tablet 1 tablet = 2 mg, By Mouth, Daily, # 20 tablet, 0 Refills, Maintenance, 05/09/21 13:42:00 EST, [facility]/pharmacy #[id number], Partial fill [...] 0 Refills, Maintenance, 03/03/21 17:36:00 EDT, Cream, [facility]/pharmacy #[id number], Partial fill upon patient request if the prescription is for a schedule II opioid drug., 1 application Topically 3 ti... Start Date: 03/03/21 Status: Ordered cyanocobalamin 1000 mcg oral tablet 1,000 mcg, 1, tablet, By Mouth, Daily, # 90 tablet, Refills 11, Tot. Refills 11, Maintenance, 08/02/23 13:12:00 EST, Route to Pharmacy Electronically, [facility]/pharmacy #[id number], 184, cm, 01/01/21 10:56:00 [...] 0 Refills, Maintenance, 04/05/21 15:54:00 EDT, Tablet, [facility]/pharmacy #[id number], [...] By Mouth, Daily, [facility], 0 Refills, Maintenance, 04/15/21 23:30:00 [...] 3 Refills, Maintenance, 03/03/21 17:29:00 EDT, Tablet, [facility]/pharmacy #[id number], Partial fill upon p... Start Date: 03/03/21 Status: Ordered omega-3 polyunsaturated fatty acids ethyl esters 1000 mg oral capsule 1 capsule = 1,000 mg, By Mouth, 2 times a day, # 60 capsule, 11 Refills, Maintenance, 01/01/21 11:25:00 EDT, Capsule, [facility]/pharmacy #[id number], 1 capsule By Mouth 2 [...] M51. 26 please send to [facility], 01/21/21 13:20:00 EDT, Supply Start Date: 01/21/21 Status: Ordered sulindac 150 mg oral tablet See Instructions, TAKE 1 TABLET BY MOUTH TWICE A DAY NEEDED FOR PAIN, # 28 tablet, 0 Refills, Maintenance, [facility], 184, cm, 02/01/21 10:51:00 EDT, Height, 123.27, [...] Active KERMIT (obstructive sleep apnea ): bipap 1914 2 liters oxygen(Confirmed) Active Osteoarthritis of both [...] provided increased discomfort related to nerves. 3Seeing [place] [facility]y and sleep. Given a trial of Tegretol 200 mg upto 2 tablets twice a day andadvised to continue with Lyrica 300 mg twice a day. Had some improvement of the facial pain with this regimen. 4Seeing [place] [facility] and asleep. On 09/11/2018 started on [...]
--- OUTSIDE RECORDS SUMMARY | 2023-11-02 08:26 | XMS_ITS | Continuity of Care Document ---
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 Role Phone Dayo Castano MD Primary Care Physician [phone] Encounter [facility] Date(s): 08/16/23 - 09/15/[address] [address]- Allergies, Adverse Reactions, Alerts Substance Reaction Severity Status penicillin Unknown Active gabapentin Active SEROquel Active hydrOXYzine hydrochloride Ac tive [...] influenza virus vaccine, inactivated 04/16/15 Give n [id number] 12y+ bivalent booster vax 02/21/23 Given SARS-CoV-2 (COVID-19) mRNA BNT-162b2 vac 1 06/01/21 Given SARS-CoV-2 (COVID-19) mRNA BNT-162b2 vac 11/07/20 Recorded SARS-CoV-2 (COVID-19) mRNA BNT-162b2 vac 10/17/20 Recorded zoster vaccine, inactivated 06/18/19 Recorded zoster vaccine, inactivated 06/17/19 Recorded zoster vaccine, inactivated 11/25/17 Recorded Influenza Vaccine (oldterm) 02/17/17 Recorded pneumococcal 23-valent vaccine 02/16/16 Given tetanus/diphtheria/pertussis, acel(Tdap) 11/25/14 Given 1Result Comment: DILUENT LOT#: [id number] EXP: 11/2022 MFG: FRESENSIUS Medications Albuterol (Eqv-ProAir [...] Mouth, Daily at bedtime, Rx'd by neurology ([facility]), # 30 tablet, 0 Refills, Maintenance, [...] FEXOFENADINE, # 100 capsule, 0 Refills, Maintenance, 09/13/23 12:18:00 EDT, Capsule, [id number], Partial fill upon patient request if the prescription is f... Start Date: 09/13/23 Status: Ordered Blood Pressure Monitor See Instructions, [...] Need length 99 months Please send to [facility], 01/21/21 13:20:00 EDT, Supply Start Date: 01/21/21 Status: Ordered carbidopa-levodopa 25 mg-100 mg oral tablet 1 tablet, By Mouth, 2 times a day, Rx'd by neurology at [facility], # 60 tablet, 0 Refills, Maintenance, 10/04/22 8:23:00 EDT, Tablet, Partial fill upon patient request if the prescription is for a schedule II opioid drug. Start Date: 10/04/22 Status: Ordered chlorthalidone 25 mg oral tablet 25 mg, 1, tablet, By Mouth, Daily in AM, Blood pressure, # 90 tablet, Refills 3, Tot. Refills 3, Maintenance, 04/04/23 8:45:00 EDT, Route to Pharmacy Electronically, [facility]/pharmacy #[id number], Partial fill upon patient request if [...] 10/06/23 14:26:00 EDT, 08/07/23 14:26:00 EST, Cream, [facility]/pharmacy #[id number], Partial fill upon patient request if [...] Dry Weight Start Date: 07/04/23 Status: Ordered Diabetic socks Diabetic socks, See [...] Gm, 5 Refills, Maintenance, 07/04/23 8:59:00 EST, [facility]/pharmacy #[id number], 30, APPLY TOPICALLY TO AFFECTED ARE [...] Daily at bedtime, Rx'd by neurology at [facility], 0 Refills, Maintenance, 10/04/22 8:24:00 EDT, Capsule, Partial fill upon patient request if the prescription is for a schedule II opioid drug. Start Date: 10/04/22 Status: Ordered loratadine 10 mg oral tablet 1, tablet, By Mouth, Daily, PRN, # 90 tablet, Refills 3, Tot. Refills 3, NEEDED FOR ALLERGIES, 04/04/23 8:42:00 EDT, Route to Pharmacy Electronically, [facility]/pharmacy #[id number], 183, cm, 04/04/23 8:24:00EDT, Height, 123.2, kg, 02/07/22 12:47:00 EDT, Dry... Start Date: 04/04/23 Status: Ordered Metamucil 3.4 gm/5.2 gm oral powder for reconstitution = 3.4 Gm, By Mouth, 3 times a day, PRN as needed for constipation, # 425 Gm, 11 Refills, Maintenance, 08/07/23 14:34:00 EST, REC Powder, [facility]/pharmacy #[id number], Partial fill upon patient request if [...] SMOKING CESSATION, # 40 gum, 0 Refills, [facility] STORE 58[facility], 184, cm, 12/27/21 11:50:00 EDT, Height Start [...] Stop 03/29/24 8:46:00 EDT, 04/04/23 8:46:00 EDT, [facility]/pharmacy #[id number], 1 capsule By Mouth 2 times a day,x90 days, 183, cm, 04/04/23 8:24:00 EDT, Height, 123.2, kg, 082... Start Date: 04/04/23 Stop Date: 03/29/24 Status: Ordered omeprazole 20 mg oral enteric coated capsule 1 capsule, By Mouth, Daily, # 90 capsule, 3 Refills, Maintenance, 04/04/23 8:46:00 EDT, [facility]/pharmacy #[id number], 183, cm, 04/04/23 8:24:00 EDT, Height, 123.2, kg, 02/07/22 12:47:00 EDT, Dry Weight Start Date: 04/04/23 Status: Ordered One Touch Ultra 2 Glucose Meter See Instructions, # 1 each, Refills 0, Tot. Refills 0, Maintenance, check BG BID dx: E11.65, 11/18/22 15:52:00 EDT, Supply, 183, cm, 11/10/22 8:32:00 EDT, Height, 123.2, kg, 08/22/22 12:47:00 EDT, Dry Weight Start Date: 11/18/22 [...] Gm, 1 Refills, Maintenance, 04/04/23 8:46:00 EDT, [facility]/pharmacy #[id number], 14,DISSOLVE 17 GRAMS IN WATER & DRINK ONCE A DAY UNTIL BM,... Start Date: 04/04/23 Status: Ordered pregabalin 300 mg oral capsule 1 capsule = 300 mg, By Mouth, 2 times a day, Rx'd by neurology at [facility], # 60 capsule, 0 Refills, Maintenance, 10/04/22 8:24:00 EDT, Capsule, Partial fill upon patient request if the prescription is for a schedule II opioid drug. Start Date: 10/04/22 Status: Ordered primidone 50 mg oral tablet 100 mg, 2, tablet, By Mouth, 2 times a day, rx'd by neurology at [facility], # 120 tablet, Refills 0, Maintenance, [...] times a day, Rx'd by neurology at [facility], # 270 tablet, 0 Refills, Maintenance, 10/04/22 [...] Maintenance, DX: M51. 26 please send to [facility], 08/08/22 15:41:00 EST, Supply Start Date: 08/08/22 Status: Ordered Shower Chair w/ Handles and Seat Shower Chair w/ Handles and Seat, See Instructions, # 1 each, Refills 0, Tot. Refills 0, Maintenance, Use daily while bathing to prevent falls. ICD 10: G20.A1 QUINTIN:99, 09/05/23 13:06:00 EDT, Supply Start Date: 09/05/23 Status: Ordered Symbicort 160mcg/4.5mcg Inhaler 2, puffs, Inhalation, 2 times a day, # 6 Gm, Refills 11, Tot. Refills 11, Maintenance, 08/07/23 14:39:00 EST, Aerosol, Route to Pharmacy Electronically, [id number], [facility]/pharmacy #[id number], 183, cm, 08/07/23 14:26:00 EST, Height,... [...] 11 Refills, Maintenance, 04/04/23 8:43:00 EDT, Tablet, [facility]/pharmacy #[id number], Partial fill upon patient request if theprescription is for a schedule II opioid drug., 183... Start Date: 04/04/23 Status: Ordered valsartan 320 mg oral tablet 1 tablet, By Mouth, Daily, blood pressure, # 90 tablet, 3 Refills, Maintenance, 04/04/23 8:46:00 EDT, [facility]/pharmacy #[id number], 183, cm, 04/04/23 8:24:00 EDT, Height, 123.2, kg, 02/07/22 12:47:00 EDT, Dry Weight Start Date: 04/04/23 Status: Ordered Vitamin B-12 1000 mcg oral tablet 1, tablet, By Mouth, Daily, # 90 tablet, Refills 1, Maintenance, 08/28/23 13:12:00 EDT, Route to Pharmacy Electronically, [facility] STORE [id number], 183, cm, 08/22/23 13:24:00 EST, Height, 123.2, kg, 02/07/22 12:47:00 EDT, Dry Weight Start Date: 08/28/23 Status: Ordered Xopenex HFA 45 mcg/inh inhalation aerosol 2 puffs, Inhalation, Every 4 hours, PRN Wheezing/Shortness of Breath, replaces Ventolin due to reaction, # 1 each, 1 Refills, Maintenance, 02/15/23 11:23:00 EDT, Aerosol, [facility], Partial fill upon patient request if the [...] provided increased discomfort related to nerves. 3Seeing [place] neurology and sleep. Given a trial of [...] Care team information Care Team Personnel Name: Casandra Parker Position: [facility] Office Staff Member Role: Lifetime Consulting Physician Name: Dayo Castano MD Position: [facility] Physician - Primary Care Member Role: PCP Address: Address: [address] [place] [address]- [place] Care Team Related Persons Name: JOSIAS BRADFORDLinda Address: home [address] [place] [address] Name: MURRAYYAHAIRALOLA Roberts Address: home [address] [place] [address] Name: GOLDIE LERMA Address: [place] [address] Name: CASANDRA LERMA Address: [place] [address] Name: KADE LERMA Address: home [address] [place] [id number] Name: KADE LERMA Address: home [address] [place] [address]
--- OUTSIDE RECORDS SUMMARY | 2023-11-02 08:26 | XMS_ITS | Continuity of Care Document ---
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 Name Role Phone Dayo Castano MD Primary Care Physician Encounter [facility] Date(s): 02/07/23 - 04/06/[address] [address]- Attending Physician: Reshma Benson MD Admitting Physician: Reshma Benson MD Allergies, Adverse Reactions, [...] influenza virus vaccine, inactivated 04/16/15 Give n [id number] 12y+ bivalent booster vax 02/21/23 Given SARS-CoV-2 (COVID-19) mRNA BNT-162b2 vac 1 06/01/21 Given SARS-CoV-2 (COVID-19) mRNA BNT-162b2 vac 11/07/20 Recorded SARS-CoV-2 (COVID-19) mRNA BNT-162b2 vac 10/17/20 Recorded zoster vaccine, inactivated 06/18/19 Recorded zoster vaccine, inactivated 06/17/19 Recorded zoster vaccine, inactivated 11/25/17 Recorded Influenza Vaccine (oldterm) 02/17/17 Recorded pneumococcal 23-valent vaccine 02/16/16 Given tetanus/diphtheria/pertussis, acel(Tdap) 11/25/14 Given 1Result Comment: DILUENT LOT#: [id number] EXP: 11/2022 MFG: FRESENSIUS Medications Albuterol (Eqv-ProAir HFA) 90 mcg/inh inhalation aerosol 2 puffs, Inhalation, Every 6 hours, please give pt whatver is covered by his insrance use with spacer chamber, # 18 Gm, 11 Refills, Maintenance, 04/04/23 8:43:00 EDT, [facility]/pharmacy #[id number], Partial fillupon patient request if the [...] tablet, 3 Refills, Maintenance, 04/04/23 8:44:00 EDT, [facility]/pharmacy #[id number], 183, cm, 04/04/23 8:24:00 EDT, Height, 123.2, kg, 02/07/22 12:47:00 EDT, Dry Weight Start Date: 04/04/23 Status: Ordered atorvastatin 20 mg oral tablet 1 tablet = 20 mg, By Mouth, Daily, cholesterol lowering pill to prevent heart attack and stroke, # 90 tablet, 3 Refills, Maintenance, 04/04/23 8:44:00 EDT, Tablet, [facility]/pharmacy #2661, Partial fill upon patient request if the [...] Need length 99 months Please send to [facility], 01/21/21 13:20:00 EDT, Supply Start Date: 01/21/21 Status: Ordered carbidopa-levodopa 25 mg-100 mg oral tablet 1 tablet, By Mouth, 2 times a day, Rx'd by neurology at [facility], # 60 tablet, 0 Refills, [...] 04/04/23 8:45:00 EDT, Route to Pharmacy Electronically, [facility]/pharmacy #0410, Partial fill upon patient request if the [...] 04/04/23 8:46:00 EDT, Route to Pharmacy Electronically, [facility]/pharmacy #[id number], 183, cm, 04/04/23 8:24:00 [...] Gm, 5 Refills, Maintenance, 01/26/23 9:21:00 EDT, [facility]/pharmacy #[id number], 30, APPLY TOPICALLY TO [...] Daily at bedtime, Rx'd by neurology at [facility], 0 Refills, Maintenance, 10/04/22 8:24:00 EDT, Capsule, Partial fill upon patient request if the prescription is for a schedule II opioid drug. Start Date: 10/04/22 Status: Ordered loratadine 10 mg oral tablet 1, tablet, By Mouth, Daily, PRN, # 90 tablet, Refills 3, Tot. Refills 3, NEEDED FOR ALLERGIES, 04/04/23 8:42:00 EDT, Route to Pharmacy Electronically, [facility]/pharmacy #[id number], 183, cm, 04/04/23 8:24:00EDT, [...] SMOKING CESSATION, # 40 gum, 0 Refills, [facility] STORE 32550, 184, cm, 12/27/21 11:50:00 EDT, Height Start [...] Stop 03/29/24 8:46:00 EDT, 04/04/23 8:46:00 EDT, [facility]/pharmacy #[id number], 1 capsule By Mouth 2 times a day,x90 days, 183, cm, 04/04/23 8:24:00 EDT, Height, 123.2, kg, 01/18... Start Date: 04/04/23 Stop Date: 03/29/24 Status: Ordered omeprazole 20 mg oral enteric coated capsule 1 capsule, By Mouth, Daily, # 90 capsule, 3 Refills, Maintenance, 04/04/23 8:46:00 EDT, [facility]/pharmacy #[id number], 183, cm, 04/04/23 8:24:00 [...] Gm, 1 Refills, Maintenance, 04/04/23 8:46:00 EDT, [facility]/pharmacy #[id number], 14,DISSOLVE 17 GRAMS IN WATER & DRINK ONCE A DAY UNTIL BM,... Start Date: 04/04/23 Status: Ordered pregabalin 300 mg oral capsule 1 capsule = 300 mg, By Mouth, 2 times a day, Rx'd by neurology at [facility], # 60 capsule, 0 Refills, Maintenance, 10/04/22 8:24:00 EDT, Capsule, Partial fill upon patient request if the prescription is for a schedule II opioid drug. Start Date: 10/04/22 Status: Ordered primidone 50 mg oral tablet 100 mg, 2, tablet, By Mouth, 2 times a day, rx'd by neurology at [facility], # 120 tablet, Refills 0, Maintenance, [...] times a day, Rx'd by neurology at [facility], # 270 tablet, 0 Refills, [...] Maintenance, DX: M51. 26 please send to [facility], 08/08/22 15:41:00 EST, Supply Start Date: 08/08/22 Status: Ordered Symbicort 160mcg/4.5mcg Inhaler 2, puffs, Inhalation, 2 times a day, # 6 Gm, Refills 11, Tot. Refills 11, Maintenance, 04/04/23 8:44:00 EDT, Aerosol, Route to Pharmacy Electronically, [id number], [id number], 183, cm, 04/04/23 8:24:00 EDT, [...] 11 Refills, Maintenance, 04/04/23 8:43:00 EDT, Tablet, [facility]/pharmacy #[id number], Partial [...] Care Team Personnel Name: Olimpia Parker Position: [facility] Office Staff Member Role: Lifetime Consulting Physician Name: Dayo Castano MD Position: [facility] Physician - Primary Care Member Role: PCP Address: Address: [address] [place] [address]- Care Team Related Persons Name: JARROD BRADFORD Address: home [address] [place] [address] Name: LOLA BRADFORD Address: home [address] [place] [address] Name: GOLDIE LERMA Address: [place] [address] Name: OLIMPIA LERMA Address: [place] [address] Name: KADE LERMA Address: [address] [place] [address] Name: KADE LERMA Address: home [address] [place] [address]
--- OUTSIDE RECORDS SUMMARY | 2023-11-02 08:26 | XMS_ITS | Continuity of Care Document ---
Author Organization [facility]ger y [address], [address] [place] [address]- Care Team Providers Care Clinical Director Name Role Phone Terence PRATHER, Azra Primary Care Physician Encounter [facility] Date(s): 03/26/20 - 05/27/[address], [address] [place], [place] [address] Attending Physician: Nikko Medina MD Referring Physician: Azra Pratt MD Allergies, Adverse Reactions, Alerts Substance Reaction [...] 9:51:00 EDT, [facility], 30, USE 1 SPRAY IN EACH NOSTRIL [...] provided increased discomfort related to nerves. 3Seeing [place] neurology and sleep. Given a trial of [...]
--- OUTSIDE RECORDS SUMMARY | 2023-11-02 08:26 | XMS_ITS | Continuity of Care Document ---
Author Organization [facility] Address [address] [place] [address]- Care Team Providers Care Waste Water Operator Name Role Phone Contractor Krystal FERNANDEZ Primary Care Physician [phone] Encounter [facility] Date(s): 01/27/21 - 02/26/[address] [address]- Allergies, Adverse Reactions, Alerts Substance Reaction Severity [...] Need length 99 months Please send to [facility], 01/21/21 13:20:00 EDT, Supply Start Date: 01/21/21 Status: Ordered Claritin 10 mg oral tablet 10 mg, 1, tablet, By Mouth, Daily, # 30 tablet, Refills 3, Tot. Refills 3, Maintenance, 01/29/21 9:13:00 EDT, Route to Pharmacy Electronically, [facility]/pharmacy #[id number], 184, cm, 01/29/21 9:06:00 EDT, Height, [...] Electronically, [facility]/pharmacy #[id number], 184, cm, 02/28/20 15:58:00 EDT, Height, [...] 02/24/21 9:28:00 EDT, EC Capsule, [facility]/pharmacy #[id number], 184, cm, 02/03/21 10:57:00 EDT, Height, [...] Maintenance, DX: M51. 26 please send to [facility], 01/21/21 13:20:00 EDT, Supply Start Date: 01/21/21 Status: Ordered sulindac 150 mg oral tablet See Instructions, TAKE 1 TABLET BY MOUTH TWICE A DAY NEEDED FOR PAIN, # 28 tablet, 0 Refills, Maintenance, [facility], 184, cm, 02/01/21 10:51:00 EDT, Height, 123.27, [...] 0 Refills, Maintenance, 02/18/21 8:37:00 EDT, Tablet, [facility]/pharmacy #[id number], Partial fill upon patient request if the [...] provided increased discomfort related to nerves. 3Seeing [place] neurology and sleep. Given a trial of Tegretol 200 mg upto 2 tablets twice a day andadvised to continue with Lyrica 300 mg twice a day. Had some improvement of the facial pain with this regimen. 4Seeing [place] [facility] and asleep. On 09/11/2018 started on [...]
--- OUTSIDE RECORDS SUMMARY | 2023-11-02 08:26 | XMS_ITS | Continuity of Care Document ---
Author Organization [facility] Address [address] [place] [address]- Care Team Providers Care Talend Developer Name Role Phone Contractor Krystal FERNANDEZ Primary Care Physician [phone] Encounter [facility] Date(s): 05/25/21 - 06/24/[address] [address]- Allergies, Adverse Reactions, Alerts Substance Reaction Severity [...] acel(Tdap) 11/25/14 Given 1Result Comment: DILUENT LOT#: [id number] EXP: 11/2022 MFG: FRESENSIUS Medications amitriptyline 100 mg oral tablet 1 tablet = 100 mg, By Mouth, Daily at bedtime, # 30 tablet, 3 Refills, Maintenance, 04/13/21 10:02:00 EDT, Tablet, [facility]/pharmacy #[id number], Partial fill upon patient request [...] 3 Refills, Maintenance, 03/03/21 17:24:00 EDT, Tablet, [facility]/pharmacy #[id number], Partial fill upo... Start Date: 03/03/21 Status: Ordered aspirin 81 mg oral delayed release tablet 81 mg, 1, tablet, By Mouth, Daily, # 90 tablet, Refills 0, Tot. Refills 0, Maintenance, 01/01/21 11:26:00 EDT, Route to Pharmacy Electronically, [facility]/pharmacy #[id number], Partial fill upon patient request [...] Need length 99 months Please send to [facility], 01/21/21 13:20:00 EDT, Supply Start Date: 01/21/21 Status: Ordered carbidopa-levodopa 25 mg-100 mg oral tablet 1 tablet, By Mouth, 3 times a day, Rx'd by Neurology at [facility]/ Dr. Murphy, # 270 tablet, 0 Refills, Maintenance, 04/15/21 23:30:00 EDT, Tablet, Partial fill upon patient request if the prescription is for a schedule II opioid drug. Start Date: 04/15/21 Status: Ordered chlorthalidone 25 mg oral tablet 1, tablet, By Mouth, Daily, # 30 tablet, Refills 5, Route to Pharmacy Electronically, [id number], 184, cm, 03/30/21 16:08:00 EDT, Height, 123.27, kg, 06/25/19 13:22:00 EST, Dry Weight Start Date: 04/07/21 Status: Ordered Claritin 10 mg oral tablet 10 mg, 1, tablet, By Mouth, Daily, more sea necesario para alergia, # 30 tablet, Refills 5, Tot. Refills 5, Maintenance, 04/13/21 10:04:00 EDT, Route to Pharmacy Electronically, [facility]/pharmacy #[id number], 184, cm, 04/13/21 9:26:00 EDT, Height, 123.27, kg, 01... Start Date: 04/13/21 Status: Ordered clonazePAM 2 mg oral tablet See Instructions, 1 tablet by mouth only NEEDED for severe panic attack. Dispense: #20 tabs per 30d., # 20 tablet, 0 Refills, Maintenance, 06/22/21 15:50:00 EST, Tablet, [facility]/pharmacy #[id number], Partial fill upon patient request [...] 0 Refills, Maintenance, 03/03/21 17:36:00 EDT, Cream, [facility]/pharmacy #[id number], Partial fill upon patient request if the prescription is for a schedule II opioid drug., 1 application Topically 3 ti... Start Date: 03/03/21 Status: Ordered cyanocobalamin 1000 mcg oral tablet 1,000 mcg, 1, tablet, By Mouth, Daily, # 90 tablet, Refills 11, Tot. Refills 11, Maintenance, 08/02/23 13:12:00 EST, Route to Pharmacy Electronically, [facility]/pharmacy #[id number], 184, cm, 01/01/21 10:56:00 EDT, [...] 5 Refills, Maintenance, 01/11/21 15:23:00 EDT, Tablet, [facility]/pharmacy #[id number], Partial fill upon patient request if the prescription is for a schedule II opioid drug., 184, cm,... Start Date: 01/11/21 Status: Ordered escitalopram 10 mg oral tablet 1 tablet = 10 mg, By Mouth, Daily, New medication for anxiety and depression (started 06/01/21), # 30 tablet, 5 Refills, Maintenance, 06/01/21 11:00:00 EST, Tablet, [facility]/pharmacy #[id number], Partial fill upon patient request if the prescription is for a jessica... Start Date: 06/01/21 Status: Ordered fluticasone 50 mcg/inh nasal spray See Instructions, USE 1 SPRAY IN EACH NOSTRIL EVERY MORNING, # 16 mL, 3 Refills, 01/29/21 9:11:00 EDT, [facility]/pharmacy #[id number], 30, USE 1 SPRAY IN [...] Neurology at [facility]/ Dr. Murphy, 0 Refills, Maintenance, 04/15/21 23:30:00 [...] Topically, Daily, for 6 week(s), Rx in Congolese, # 42 patch, 1 Refills, Acute 08/16/21 16:13:00 EST, 05/24/21 16:13:00 EST, Patch, [facility]/pharmacy #[id number], Partial fill upon patient request [...] # 90 capsule, 0 Refills, [id number], 184, cm, 06/14/21 11:01:00 EST, Height, 123.27, kg, 06/25/19 13:22:00 EST, Dry Weight Start Date: 06/23/21 Status: Ordered pregabalin 300 mg oral capsule TAKE 1 CAPSULE BY MOUTH TWICE A DAY NEEDED FOR PAIN Start Date: 01/29/21 Status: Ordered Shower Chair See Instructions, # 1 each, Refills 0, Tot. Refills 0, Maintenance, DX: M51. 26 please send to [facility], 01/21/21 13:20:00 EDT, Supply Start Date: 01/21/21 Status: Ordered sulindac 150 mg oral tablet See Instructions, TAKE 1 TABLET BY MOUTH TWICE A DAY NEEDED FOR PAIN, # 28 tablet, 0 Refills, Maintenance, [id number], 184, cm, 02/01/21 10:51:00 EDT, Height, 123.27, kg, 06/25/19 13:22:00 EST, Dry Weight Start Date: 02/01/21 Status: Ordered Tylenol Extra Strength 500 mg oral tablet 2 tablet = 1,000 mg, By Mouth, 3 times a day, PRN as needed for pain, # 100 tablet, 5 Refills, Maintenance, 04/13/21 10:08:00 EDT, Tablet, [facility]/pharmacy #[id number], Partial fill upon patient request if theprescription [...] provided increased discomfort related to nerves. 3Seeing [place] neurology and sleep. Given a trial of Tegretol 200 mg upto 2 tablets twice a day andadvised to continue with Lyrica 300 mg twice a day. Had some improvement of the facial pain with this regimen. 4Seeing [place] neurology and asleep. On 09/11/2018 started on [...]
--- OUTSIDE RECORDS SUMMARY | 2023-11-02 08:26 | XMS_ITS | Continuity of Care Document ---
Author Organization [facility] Address [address] [place] [address]- Care Team Providers Care Real Estate Site Analyst Name Role Phone Terence PRATHER, Azra Primary Care Physician Encounter [facility] Date(s): 03/12/20 - 04/11/[address] [address]- [facility] Allergies, Adverse Reactions, Alerts Substance Reaction Severity Status penicillin Unknown Active gabapentin Active hydrOXYzine hydrochloride Ac tive Ventolin HFA Active Flovent HFA Active traZODone Active SEROquel Active ZyrTEC Active Lantus Active Immunizations Given and Recorded Vaccine Date [...] EDT, Route to Pharmacy Electronically, [facility]/pharmacy #[id number], 184, cm, 01/15/20 9:11:00 EDT, Height, 123.27, kg, 06/25/19 13:22:00 EST, Dry Weight Start Date: 01/15/20 Stop Date: 03/15/20 Status: Ordered aspirin 81 mg oral tablet 1 tablet = 81 mg, By Mouth, Daily, # 90 tablet, 3 Refills, Maintenance, 01/15/20 9:51:00 EDT, Tablet, [facility]/pharmacy #[id number], 184, cm, 01/15/20 9:11:00 EDT, [...] EDT, Route to Pharmacy Electronically, [facility]/pharmacy #[id number], 184, cm, 01/29/20 14:16:00 EDT, [...] EST, Route to Pharmacy Electronically, [facility]/pharmacy #[id number], 184, cm, 02/28/20 15:58:00 EDT, [...] Maintenance, 01/15/20 9:51:00 EDT, Tablet, [facility]/pharmacy #[id number], 184, cm, 01/15/20 9:11:00 EDT, Height, 123.27, kg, 06/25/19 13:22:00 EST, Dry Weight Start Date: 01/15/20 Stop Date: 03/15/20 Status: Ordered fluticasone 50 mcg/inh nasal spray See Instructions, USE 1 SPRAY IN EACH NOSTRIL EVERY MORNING, # 16 mL, 0 Refills, Maintenance, [facility] [id number], 30, USE 1 SPRAY IN EACH NOSTRIL [...]
--- OUTSIDE RECORDS SUMMARY | 2023-11-02 08:26 | XMS_ITS | Continuity of Care Document ---
Author Organization [facility] Address [address] [place] [address]- Care Team Providers Care Curling Machine Operator Name Role Phone Dayo Castano MD Primary Care Physician [phone] Encounter [facility] Date(s): 05/18/23 - 06/17/[address] [address]- Allergies, Adverse Reactions, Alerts Substance Reaction Severity [...] influenza virus vaccine, inactivated 04/16/15 Give n [id number] 12y+ bivalent booster vax 02/21/23 Given SARS-CoV-2 (COVID-19) mRNA BNT-162b2 vac 1 06/01/21 Given SARS-CoV-2 (COVID-19) mRNA BNT-162b2 vac 11/07/20 Recorded SARS-CoV-2 (COVID-19) mRNA BNT-162b2 vac 10/17/20 Recorded zoster vaccine, inactivated 06/18/19 Recorded zoster vaccine, inactivated 06/17/19 Recorded zoster vaccine, inactivated 11/25/17 Recorded Influenza Vaccine (oldterm) 02/17/17 Recorded pneumococcal 23-valent vaccine 02/16/16 Given tetanus/diphtheria/pertussis, acel(Tdap) 11/25/14 Given 1Result Comment: DILUENT LOT#: [id number] EXP: 11/2022 MFG: FRESENSIUS Medications Albuterol (Eqv-ProAir [...] Mouth, Daily at bedtime, [facility] # 30 tablet, 0 Refills, Maintenance, 12/08/22 [...] 3 Refills, Maintenance, 04/04/23 8:44:00 EDT, Tablet, [facility]/pharmacy #[id number], Partial fill upon patient request if [...] Need length 99 months [facility], 01/21/21 13:20:00 EDT, Supply Start Date: 01/21/21 Status: Ordered carbidopa-levodopa 25 mg-100 mg oral tablet 1 tablet, By Mouth, 2 times a day, Rx'd by neurology at [facility], # 60 tablet, 0 Refills, [...] 04/04/23 8:45:00 EDT, Route to Pharmacy Electronically, [facility]/pharmacy #[id number], Partial fill upon patient request if [...] 04/04/23 8:46:00 EDT, Route to Pharmacy Electronically, [facility]/pharmacy #[id number], 183, cm, 04/04/23 8:24:00 EDT, Height, [...] Gm, 5 Refills, Maintenance, 01/26/23 9:21:00 EDT, [facility]/pharmacy #[id number], 30, APPLY TOPICALLY TO AFFECTED ARE TWICEA DAY NEEDED FOR PAIN, 183, cm, 01/26/23 9:04:00... Start Date: 01/26/23 Status: Ordered diclofenac sodium 75 mg oral delayed release tablet 1 tablet = 75 mg, By Mouth, 2 times a day, PRN Pain , Severe, STOP DICLOFENAC GEL, # 60 tablet, 0 Refills, Maintenance, 05/19/23 12:59:00 EST, EC Tablet, [facility]/pharmacy #[id number], Partial fill upon patientrequest if the [...] 0 Refills, Maintenance, 05/05/23 9:15:00 EST, Tablet, [facility]/pharmacy #[id number], Partial fill upon patient request if [...] Daily at bedtime, Rx'd by neurology at [facility], 0 Refills, Maintenance, 10/04/22 8:24:00 EDT, Capsule, Partial fill upon patient request if the prescription is for a schedule II opioid drug. Start Date: 10/04/22 Status: Ordered loratadine 10 mg oral tablet 1, tablet, By Mouth, Daily, PRN, # 90 tablet, Refills 3, Tot. Refills 3, NEEDED FOR ALLERGIES, 04/04/23 8:42:00 EDT, Route to Pharmacy Electronically, [facility]/pharmacy #[id number], 183, cm, 04/04/23 8:24:00EDT, Height, 123.2, [...] SMOKING CESSATION, # 40 gum, 0 Refills, [id number], 184, cm, 12/27/21 11:50:00 EDT, Height Start [...] Stop 03/29/24 8:46:00 EDT, 04/04/23 8:46:00 EDT, [facility]/pharmacy #[id number], 1 capsule By Mouth 2 times a day,x90 days, 183, cm, 04/04/23 8:24:00 EDT, Height, 123.2, kg, 2... Start Date: 04/04/23 Stop Date: 03/29/24 Status: Ordered omeprazole 20 mg oral enteric coated capsule 1 capsule, By Mouth, Daily, # 90 capsule, 3 Refills, Maintenance, 04/04/23 8:46:00 EDT, [facility]/pharmacy #[id number], 183, cm, 04/04/23 8:24:00 EDT, Height, [...] Gm, 1 Refills, Maintenance, 04/04/23 8:46:00 EDT, [facility]/pharmacy #[id number], 14,DISSOLVE 17 GRAMS IN WATER & DRINK ONCE A DAY UNTIL BM,... Start Date: 04/04/23 Status: Ordered pregabalin 300 mg oral capsule 1 capsule = 300 mg, By Mouth, 2 times a day, Rx'd by neurology at [facility], # 60 capsule, 0 Refills, Maintenance, 10/04/22 8:24:00 EDT, Capsule, Partial fill upon patient request if the prescription is for a schedule II opioid drug. Start Date: 10/04/22 Status: Ordered primidone 50 mg oral tablet 100 mg, 2, tablet, By Mouth, 2 times a day, rx'd by neurology at [facility], # 120 tablet, Refills 0, Maintenance, [...] times a day, Rx'd by neurology at [facility], # 270 tablet, 0 Refills, [...] Maintenance, DX: M51. 26 please send to [facility], 08/08/22 15:41:00 EST, Supply Start Date: 08/08/22 Status: Ordered Symbicort 160mcg/4.5mcg Inhaler 2, puffs, Inhalation, 2 times a day, # 6 Gm, Refills 11, Tot. Refills 11, Maintenance, 04/04/23 8:44:00 EDT, Aerosol, Route to Pharmacy Electronically, [id number], [facility]/pharmacy #[id number], 183, cm, 04/04/23 8:24:00 EDT, Height, [...] 11 Refills, Maintenance, 04/04/23 8:43:00 EDT, Tablet, [facility]/pharmacy #[id number], Partial fill upon patient request if [...] provided increased discomfort related to nerves. 3Seeing [place] neurology and sleep. Given a trial of [...] Care Team Personnel Name: Olimpia Parker Position: [facility] JUAN Office Staff Member Role: Lifetime Consulting Physician Name: Dayo Castano MD Position: [facility] Physician - Primary Care Member Role: PCP Address: Address: [address] [place] [address]- Care Team Related Persons Name: JARROD BRADFORD Address: home [address] [place] [address] Name: LOLA BRADFORD Address: home [address] [place] [address] Name: GOLDIE LERMA Address: [place] [address] Name: OLIMPIA LERMA Address: [place] [address] Name: KADE LERMA Address: home [address] [place] [address] Name: KADE LERMA Address: home [address] [place] [address]
--- OUTSIDE RECORDS SUMMARY | 2023-11-02 08:26 | XMS_ITS | Continuity of Care Document ---
Author Organization [facility] Address [address] [place] [address]- Care Team Providers Care Central Supply Tech Name Role Phone Terence PRATHER, Azra Primary Care Physician Encounter [facility] Date(s): 03/11/20 - 04/10/[address] [address]- [facility] Allergies, Adverse [...] Route to Pharmacy Electronically, [facility]/pharmacy #[id number], 184, cm, 01/15/20 9:11:00 EDT, Height, 123.27, [...] 0 Refills, Maintenance, [facility] [address], 30, USE 1 SPRAY IN EACH NOSTRIL [...]
--- OUTSIDE RECORDS SUMMARY | 2023-11-02 08:26 | XMS_ITS | Continuity of Care Document ---
Author Organization [facility] Address [address] [place] [address]- Care Team Providers Care Sensitometrist Name Role Phone Contractor Krystal FERNANDEZ Primary Care Physician Encounter [facility] Date(s): 03/23/21 - 04/22/[address] [address] Allergies, Adverse Reactions, Alerts Substance [...] 3 Refills, Maintenance, 04/13/21 10:02:00 EDT, Tablet, [facility]/pharmacy #[id number], Partial fill upon patient [...] 3 Refills, Maintenance, 03/03/21 17:24:00 EDT, Tablet, [facility]/pharmacy #[id number], Partial fill upo... Start Date: 03/03/21 Status: Ordered aspirin 81 mg oral delayed release tablet 81 mg, 1, tablet, By Mouth, Daily, # 90 tablet, Refills 0, Tot. Refills 0, Maintenance, 01/01/21 11:26:00 EDT, Route to Pharmacy Electronically, [facility]/pharmacy #[id number], Partial fill upon patient [...] Need length 99 months Please send to [facility], 01/21/21 13:20:00 EDT, Supply Start Date: 01/21/21 Status: Ordered carbidopa-levodopa 25 mg-100 mg oral tablet 1 tablet, By Mouth, 3 times a day, Rx'd by Neurology at [facility] [place]/ Dr. Murphy, # 270 tablet, 0 Refills, Maintenance, 04/15/21 23:30:00 EDT, Tablet, Partial fill upon patient request if the prescription is for a schedule II opioid drug. Start Date: 04/15/21 Status: Ordered chlorthalidone 25 mg oral tablet 1, tablet, By Mouth, Daily, # 30 tablet, Refills 5, Route to Pharmacy Electronically, [facility] [id number], 184, cm, 03/30/21 16:08:00 EDT, Height, 123.27, kg, 06/25/19 13:22:00 EST, Dry Weight Start Date: 04/07/21 Status: Ordered Claritin 10 mg oral tablet 10 mg, 1, tablet, By Mouth, Daily, more sea necesario para alergia, # 30 tablet, Refills 5, Tot. Refills 5, Maintenance, 04/13/21 10:04:00 EDT, Route to Pharmacy Electronically, [facility]/pharmacy #[id number], 184, cm, 04/13/21 9:26:00 EDT, Height, 123.27, kg, 01... Start Date: 04/13/21 Status: Ordered clonazePAM 2 mg oral tablet 1 tablet = 2 mg, By Mouth, Daily, # 20 tablet, 0 Refills, Maintenance, 04/22/21 15:54:00 EDT, [facility]/pharmacy #[id number], Partial fill upon patient request if the prescription is for a schedule II opioid drug., 184, cm, 04/22/21 15:18:00 EDT, Height, 123.27,... Start Date: 04/22/21 Status: Ordered Compression- Lower Extremity (Knee High) See Instructions, # 1 each, Refills 3, Tot. Refills 3, Maintenance, dx bilateral leg edema, wear daily 15-20 mmHG 1 pair, 01/27/21 17:48:00 EDT, Supply Start Date: 01/27/21 Status: Ordered Cortizone-10 Intensive Healing Formula 1% topical cream 1 application, Topically, 3 times a day, PRN Itch, # 60 Gm, 0 Refills, Maintenance, 03/03/21 17:36:00 EDT, Cream, [facility]/pharmacy #[id number], Partial fill upon patient request if the prescription is for a schedule II opioid drug., 1 application Topically 3 ti... Start Date: 03/03/21 Status: Ordered cyanocobalamin 1000 mcg oral tablet 1,000 mcg, 1, tablet, By Mouth, Daily, # 90 tablet, Refills 11, Tot. Refills 11, Maintenance, 08/02/23 13:12:00 EST, Route to Pharmacy Electronically, [facility]/pharmacy #[id number], 184, cm, 01/01/21 10:56:00 [...] 5 Refills, Maintenance, 01/11/21 15:23:00 EDT, Tablet, [facility]/pharmacy #[id number], Partial fill upon patient request if the prescription is for a schedule II opioid drug., 184, cm,... Start Date: 01/11/21 Status: Ordered escitalopram 5 mg oral tablet 1 tablet = 5 mg, By Mouth, Daily, This is a decrease in dose, # 14 tablet, 0 Refills, Maintenance, 04/05/21 15:54:00 EDT, Tablet, [facility]/pharmacy #[id number], Partial fill upon patient request if the prescription is for a schedule II opioid drug., 184, cm, ... Start Date: 04/05/21 Stop Date: 04/19/21 Status: Ordered fluticasone 50 mcg/inh nasal spray See Instructions, USE 1 SPRAY IN EACH NOSTRIL EVERY MORNING, # 16 mL, 3 Refills, 01/29/21 9:11:00 EDT, [facility]/pharmacy #[id number], 30, USE 1 SPRAY [...] 2 Refills, Maintenance, 02/10/21 13:09:00 EDT, Ointment, [facility]/pharmacy #[id number], Partial fill upon patient request if the prescription is for a schedule II opioid drug., 1 application Top... Start Date: 02/10/21 Status: Ordered magnesium oxide 400 mg oral tablet 1 tablet = 400 mg, By Mouth, Daily, Rx'd by Neurology at [facility] [place]/ Dr. Murphy, 0 Refills, Maintenance, 04/15/21 23:30:00 [...] 3 Refills, Maintenance, 03/03/21 17:29:00 EDT, Tablet, [facility]/pharmacy #[id number], Partial fill upon p... Start Date: 03/03/21 Status: Ordered omega-3 polyunsaturated fatty acids ethyl esters 1000 mg oral capsule 1 capsule = 1,000 mg, By Mouth, 2 times a day, # 60 capsule, 11 Refills, Maintenance, 01/01/21 11:25:00 EDT, Capsule, [facility]/pharmacy #[id number], 1 capsule By Mouth [...] DX: M51. 26 please send to [facility], 01/21/21 13:20:00 EDT, Supply Start Date: 01/21/21 Status: Ordered sulindac 150 mg oral tablet See Instructions, TAKE 1 TABLET BY MOUTH TWICE A DAY NEEDED FOR PAIN, # 28 tablet, 0 Refills, Maintenance, [id number], 184, cm, 02/01/21 10:51:00 EDT, Height, 123.27, [...] provided increased discomfort related to nerves. 3Seeing [place] neurology and sleep. Given a trial of Tegretol 200 mg upto 2 tablets twice a day andadvised to continue with Lyrica 300 mg twice a day. Had some improvement of the facial pain with this regimen. 4Seeing [place] neurology and asleep. On 09/11/2018 started on [...]
--- OUTSIDE RECORDS SUMMARY | 2023-11-02 08:26 | XMS_ITS | Continuity of Care Document ---
Author Organization [facility] Address [address] [place] [address]- Care Team Providers Care Neuroscience Director Na Name Role Phone Contractor Krystal FERNANDEZ Primary Care Physician [phone] Encounter [facility] Date(s): 06/08/21 - 07/08/[address] [address]- Allergies, Adverse Reactions, Alerts Substance Reaction Severity [...] acel(Tdap) 11/25/14 Given 1Result Comment: DILUENT LOT#: [id number] EXP: 11/2022 MFG: FRESENSIUS Medications amitriptyline 100 mg oral tablet 1 tablet = 100 mg, By Mouth, Daily at bedtime, # 30 tablet, 3 Refills, Maintenance, 04/13/21 10:02:00 EDT, Tablet, [facility]/pharmacy #[id number], Partial fill upon patient [...] 3 Refills, Maintenance, 03/03/21 17:24:00 EDT, Tablet, [facility]/pharmacy #[id number], Partial fill upo... Start Date: 03/03/21 Status: Ordered aspirin 81 mg oral delayed release tablet 81 mg, 1, tablet, By Mouth, Daily, # 90 tablet, Refills 0, Tot. Refills 0, Maintenance, 01/01/21 11:26:00 EDT, Route to Pharmacy Electronically, [facility]/pharmacy #[id number], Partial fill upon patient [...] Need length 99 months Please send to [place] [facility], 01/21/21 13:20:00 EDT, Supply Start Date: 01/21/21 Status: Ordered carbidopa-levodopa 25 mg-100 mg oral tablet 1 tablet, By Mouth, 3 times a day, Rx'd by Neurology at [facility] [place]/ Dr. Murphy, # 270 tablet, 0 Refills, Maintenance, 04/15/21 23:30:00 EDT, Tablet, Partial fill upon patient request if the prescription is for a schedule II opioid drug. Start Date: 04/15/21 Status: Ordered chlorthalidone 25 mg oral tablet 1, tablet, By Mouth, Daily, # 30 tablet, Refills 5, Route to Pharmacy Electronically, [facility] STORE [id number], 184, cm, 03/30/21 16:08:00 EDT, Height, 123.27, kg, 06/25/19 13:22:00 EST, Dry Weight Start Date: 04/07/21 Status: Ordered Claritin 10 mg oral tablet 10 mg, 1, tablet, By Mouth, Daily, more sea necesario para alergia, # 30 tablet, Refills 5, Tot. Refills 5, Maintenance, 04/13/21 10:04:00 EDT, Route to Pharmacy Electronically, [facility]/pharmacy #[id number], 184, cm, 04/13/21 9:26:00 EDT, Height, 123.27, kg, 01... Start Date: 04/13/21 Status: Ordered clonazePAM 2 mg oral tablet See Instructions, 1 tablet by mouth only NEEDED for severe panic attack. Dispense: #20 tabs per 30d., # 20 tablet, 0 Refills, Maintenance, 06/22/21 15:50:00 EST, Tablet, [facility]/pharmacy #[id number], Partial fill upon patient [...] 0 Refills, Maintenance, 03/03/21 17:36:00 EDT, Cream, [facility]/pharmacy #[id number], Partial fill upon patient request if the prescription is for a schedule II opioid drug., 1 application Topically 3 ti... Start Date: 03/03/21 Status: Ordered cyanocobalamin 1000 mcg oral tablet 1,000 mcg, 1, tablet, By Mouth, Daily, # 90 tablet, Refills 11, Tot. Refills 11, Maintenance, 08/02/23 13:12:00 EST, Route to Pharmacy Electronically, [facility]/pharmacy #[id number], 184, cm, 01/01/21 10:56:00 [...] 5 Refills, Maintenance, 01/11/21 15:23:00 EDT, Tablet, [facility]/pharmacy #[id number], Partial fill upon patient request if the prescription is for a schedule II opioid drug., 184, cm,... Start Date: 01/11/21 Status: Ordered escitalopram 10 mg oral tablet 1 tablet = 10 mg, By Mouth, Daily, New medication for anxiety and depression (started 06/01/21), # 30 tablet, 5 Refills, Maintenance, 06/01/21 11:00:00 EST, Tablet, [facility]/pharmacy #[id number], Partial fill upon patient request if the prescription is for a jessica... Start Date: 06/01/21 Status: Ordered fluticasone 50 mcg/inh nasal spray See Instructions, USE 1 SPRAY IN EACH NOSTRIL EVERY MORNING, # 16 mL, 3 Refills, 01/29/21 9:11:00 EDT, [facility]/pharmacy #[id number], 30, USE 1 SPRAY [...] Daily, Rx'd by Neurology at [facility] [place]/ Dr. Murphy, 0 Refills, Maintenance, 04/15/21 23:30:00 [...] Topically, Daily, for 6 week(s), Rx in Pashto, # 42 patch, 1 Refills, Acute 08/16/21 16:13:00 EST, 05/24/21 16:13:00 EST, Patch, [facility]/pharmacy #[id number], Partial fill upon patient request if theprescription is for a schedule II opioid drug., 1 p... Start Date: 05/24/21 Stop Date: 08/16/21 Status: Ordered omega-3 polyunsaturated fatty acids ethyl esters 1000 mg oral capsule 1 capsule = 1,000 mg, By Mouth, 2 times a day, # 60 capsule, 11 Refills, Maintenance, 01/01/21 11:25:00 EDT, Capsule, [facility]/pharmacy #[id number], 1 capsule By Mouth 2 times a day,x30 days, 184, cm, 01/01/21 10:56:00 EDT, Height, 123.27, kg, 06/25/19 13:22:00... Start Date: 01/01/21 Stop Date: 12/27/21 Status: Ordered omeprazole 20 mg oral enteric coated capsule 1 capsule, By Mouth, Daily, # 90 capsule, 0 Refills, [facility] STORE [id number], 184, cm, 06/14/21 11:01:00 EST, Height, 123.27, [...] Maintenance, DX: M51. 26 please send to [facility], 01/21/21 13:20:00 EDT, Supply Start Date: 01/21/21 Status: Ordered sulindac 150 mg oral tablet See Instructions, TAKE 1 TABLET BY MOUTH TWICE A DAY NEEDED FOR PAIN, # 28 tablet, 0 Refills, Maintenance, [id number], 184, cm, 02/01/21 10:51:00 EDT, Height, 123.27, kg, 06/25/19 13:22:00 EST, Dry Weight Start Date: 02/01/21 Status: Ordered Tylenol Extra Strength 500 mg oral tablet 2 tablet = 1,000 mg, By Mouth, 3 times a day, PRN as needed for pain, # 100 tablet, 5 Refills, Maintenance, 04/13/21 10:08:00 EDT, Tablet, [facility]/pharmacy #[id number], Partial fill upon patient [...] provided increased discomfort related to nerves. 3Seeing [place] neurology and sleep. Given a trial of Tegretol 200 mg upto 2 tablets twice a day andadvised to continue with Lyrica 300 mg twice a day. Had some improvement of the facial pain with this regimen. 4Seeing [place] neurology and asleep. On 09/11/2018 started on [...]
--- OUTSIDE RECORDS SUMMARY | 2023-11-02 08:26 | XMS_ITS | Continuity of Care Document ---
Author Organization [facility] Address [address] [place] [address]- Care Team Providers Care Press Technician Name Role Phone Ivone Oneil MD Primary Care Physician Encounter [facility] Date(s): 09/08/22 - 10/08/[address] [address]- Allergies, Adverse Reactions, Alerts Substance Reaction Severity [...] acel(Tdap) 11/25/14 Given 1Result Comment: DILUENT LOT#: [id number] EXP: 11/2022 MFG: FRESENSIUS Medications Aripiprazole 2 [...] 1 Refills, Maintenance, 05/13/22 14:40:00 EST, Tablet, [facility]/pharmacy #[id number], Partial fill upon patient request if the [...] Need length 99 months Please send to [facility], 01/21/21 13:20:00 EDT, Supply Start Date: 01/21/21 Status: Ordered carbidopa-levodopa 25 mg-100 mg oral tablet 1 tablet, By Mouth, 2 times a day, Rx'd by neurology at [facility], # 60 tablet, 0 Refills, Maintenance, 10/04/22 8:23:00 EDT, Tablet, Partial fill upon patient request if the prescription is for a schedule II opioid drug. Start Date: 10/04/22 Status: Ordered chlorthalidone 25 mg oral tablet 25 mg, 1, tablet, By Mouth, Daily, # 30 tablet, Refills 2, Tot. Refills 2, Maintenance, 08/23/22 8:42:00 EST, Route to Pharmacy Electronically, [facility]/pharmacy #[id number], Partial fill upon patient request if the prescription is for a schedule II opioid drug.... Start Date: 08/23/22 Status: Ordered clonazePAM 1 mg oral tablet [...] 07/01/29 13:12:00 EST, Route to Pharmacy Electronically, [facility]/pharmacy #[id number], 183, cm, 08/22/22 8:28:00 [...] Gm, 2 Refills, Maintenance, 07/28/22 8:54:00 EST, [facility] STORE [id number], 30, APPLY TOPICALLY TO AFFECTED ARE TWICE A DAY NEEDED FOR PAIN, 183, cm, 07/07/22 10:54:00 E... Start Date: 07/28/22 Status: Ordered empagliflozin 10 mg oral tablet 1 tablet = 10 mg, By Mouth, Daily in AM, # 30 tablet, 2 Refills, Maintenance, 08/23/22 8:44:00 EST,Tablet, [facility]/pharmacy #[id number], Partial fill upon patient request if the [...] Daily at bedtime, Rx'd by neurology at [facility], 0 Refills, Maintenance, 10/04/22 8:24:00 EDT, Capsule, Partial fill upon patient request if the prescription is for a schedule II opioid drug. Start Date: 10/04/22 Status: Ordered levocetirizine 5 mg oral tablet 1 tablet = 5 mg, By Mouth, Daily in AM, # 30 tablet, 2 Refills, Maintenance, 08/23/22 8:44:00 EST, Tablet, [facility]/pharmacy #[id number], Label in romansh, cetrizine not effective, 1 tablet By Mouth Daily in AM, 183, cm, 08/22/22 8:28:00 EST, Height, 123.2, kg,... Start Date: 08/23/22 Status: Ordered loratadine 10 mg oral tablet 1, tablet, By Mouth, Daily, PRN, # 90 tablet, Refills 1, NEEDED FOR ALLERGIES, Route to PharmacyElectronically, [facility], 184, cm, 10/18/21 13:37:00 EDT, Height Start [...] mg, By Mouth, 2 times a day, For diabetes, # 360 tablet, 3 Refills, Maintenance, 10/04/22 18:03:00 EDT, Tablet, [id number], Partial fill upon patient request if the prescription is for a schedule II opioid drug., 183, cm, 09/17... Start Date: 10/04/22 Stop Date: 09/29/23 Status: Ordered mirtazapine 7.5 mg oral tablet [...] SMOKING CESSATION, # 40 gum, 0 Refills, [facility] ST[facility], 184, cm, 12/27/21 11:50:00 EDT, Height Start [...] a day, # 180 capsule, 3 Refills, [facility] STORE 04268, 90, TAKE 1 CAPSULE BY MOUTH TWICE A DAY, 183, cm, 02/08/22 6:42:00 EDT, Height, 123.2, kg, 02/07/22 12:47:00 EDT, Dry Weight Start Date: 02/09/22 Status: Ordered omeprazole 20 mg oral enteric coated capsule 1 capsule, By Mouth, Daily, # 90 capsule, 0 Refills, Maintenance, 09/09/22 8:09:00 EDT, [id number], 183, cm, 09/07/22 10:39:00 EDT, Height, [...] Gm, 1 Refills, Maintenance, 08/31/22 9:06:00 EDT, [id number], 14,DISSOLVE 17 GRAMS IN WATER & DRINK ONCE A DAY UNTIL BM,... Start Date: 08/31/22 Status: Ordered pregabalin 300 mg oral capsule 1 capsule = 300 mg, By Mouth, 2 times a day, Rx'd by neurology at [facility], # 60 capsule, 0 Refills, [...] times a day, Rx'd by neurology at [facility], # 270 tablet, 0 Refills, [...] Maintenance, DX: M51. 26 please send to [facility], 08/08/22 15:41:00 EST, Supply Start Date: 08/08/22 Status: Ordered Symbicort 160mcg/4.5mcg Inhaler 2, puffs, Inhalation, 2 times a day, # 6 Gm, Refills 0, Tot. Refills 0, Maintenance, 12/27/21 12:43:00 EDT, Aerosol, Route to Pharmacy Electronically, [id number], [facility]/pharmacy #[id number], 184, cm, 12/27/21 11:50:00 [...] Refills, Maintenance, 03/15/22 14:29:00 EDT, [facility], 183, cm, 02/08/22 6:42:00 EDT, Height, 123.2, [...] Active Panic disorder 5, 6 Confirmed Active Parkinson disease Confirmed Active Encounter for annual physical exam [...] provided increased discomfort related to nerves. 3Seeing [place] neurology and sleep. Given a trial of Tegretol 200 mg upto 2 tablets twice a day andadvised to continue with Lyrica 300 mg twice a day. Had some improvement of the facial pain with this regimen. 4Seeing [place] neurology and asleep. On 09/11/2018 started on [...] Care Team Personnel Name: Olimpia Parker Position: [facility] JUAN Office Staff Member Role: Lifetime Consulting Physician Name: Ivone Oneil MD Position: [facility] Primary Care Physician Member Role: PCP Address: Address: [address] [place] [address]- Care Team Related Persons Name: JARROD BRADFORD Address: home [address] [place] [address] Name: LOLA BRADFORD Address: home [address] [place] [address] Name: GOLDIE LERMA Address: [place] [address] Name: OLIMPIA LERMA Address: [place] [address] Name: KADE LERMA Address: home [address] [place] [id number] Name: KADE LERMA Address: [address] [place] [id number]
--- OUTSIDE RECORDS SUMMARY | 2023-11-02 08:26 | XMS_ITS | Continuity of Care Document ---
Author Organization [facility] Address [address] [place] [address]- Care Team Providers Care Boat Garnisher Name Role Phone Ivone Oneil MD Primary Care Physician Encounter [facility] Date(s): 12/08/21 - 01/07/[address] [address]- Allergies, Adverse Reactions, Alerts Substance Reaction Severity [...] acel(Tdap) 11/25/14 Given 1Result Comment: DILUENT LOT#: [id number] EXP: 11/2022 MFG: FRESENSIUS Medications amitriptyline 100 [...] Refills, Maintenance, 03/03/21 17:24:00 EDT, Tablet, [facility]/pharmacy #[id number], Partial fill upo... Start Date: [...] Need length 99 months Please send to [facility], 01/21/21 13:20:00 EDT, Supply Start Date: 01/21/21 Status: Ordered chlorthalidone 25 mg oral tablet 1, tablet, By Mouth, Daily, # 30 tablet, Refills 5, Tot. Refills 5, 09/28/21 8:08:00 EDT, Route to Pharmacy Electronically, [facility]/pharmacy #[id number], 184, cm, 09/15/21 9:12:00 EDT, Height Start Date: 09/28/21 Status: Ordered clonazePAM 2 mg oral tablet See Instructions, 1 tablet by mouth only NEEDED for severe panic attack. Dispense: #20 tabs per 20d., # 20 tablet, 0 Refills, Maintenance, 08/18/21 15:21:00 EST, Tablet, [facility]/pharmacy #[id number], Partial fill upon patient request [...] 13:12:00 EST, Route to Pharmacy Electronically, [facility]/pharmacy #[id number], 184, cm, 07/26/21 9:11:00 EST, Height Start Date: 07/17/26 Stop Date: 07/01/29 Status: Ordered cyanocobalamin 1000 mcg oral tablet 1,000 mcg, 1, tablet, By Mouth, Daily, for 90 days, # 90 tablet, Refills 11, Tot. Refills 11, Hard Stop 07/17/26 13:12:00 EST, 08/02/23 13:12:00 EST, Route to Pharmacy Electronically, [facility]/pharmacy #[id number], 184, cm, 01/01/21 10:56:00 EDT, [...] 1, NEEDED FOR ALLERGIES, Route to PharmacyElectronically, [facility] STORE 21308, 184, cm, 10/18/21 13:37:00 EDT, Height Start Date: 10/22/21 Status: Ordered magnesium oxide 400 mg oral tablet 1 tablet = 400 mg, By Mouth, Daily, Rx'd by Neurology at [facility] [place]/ Dr. Murphy, 0 Refills, Maintenance, 04/15/21 23:30:00 [...] 11:13:00 EST, 10/28/21 11:13:00 EDT, REC Powder, [facility]/pharmacy #[id number], Partial fill upon patient request [...] 3 Refills, Maintenance, 09/16/2211:15:00 EDT, Tablet, [facility]/pharmacy #[id number], Partial f... Start Date: 09/15/21 [...] M51. 26 please send to [facility], 01/21/21 13:20:00 EDT, Supply Start Date: 01/21/21 Status: Ordered Symbicort 160mcg/4.5mcg Inhaler 2, puffs, Inhalation, 2 times a day, # 6 Gm, Refills 0, Tot. Refills 0, Maintenance, 12/27/21 12:43:00 EDT, Aerosol, Route to Pharmacy Electronically, [id number], [id number], 184, cm, 12/27/21 11:50:00 EDT, [...] provided increased discomfort related to nerves. 3Seeing [place] neurology and sleep. Given a trial of [...]
--- OUTSIDE RECORDS SUMMARY | 2023-11-02 08:27 | XMS_ITS | Continuity of Care Document ---
Author Organization [facility] Address [address] [place] [address]- Care Team Providers Care Web Search Evaluator Name Role Phone Contractor Krystal FERNANDEZ Primary Care Physician Encounter [facility] Date(s): 05/11/21 - 06/10/[address] [address]- Allergies, Adverse Reactions, Alerts Substance Reaction Severity [...] acel(Tdap) 11/25/14 Given 1Result Comment: DILUENT LOT#: [id number] EXP: 11/2022 MFG: FRESENSIUS Medications amitriptyline 100 mg oral tablet 1 tablet = 100 mg, By Mouth, Daily at bedtime, # 30 tablet, 3 Refills, Maintenance, 04/13/21 10:02:00 EDT, Tablet, [facility]/pharmacy #[id number], Partial fill upon patient request [...] Refills, Maintenance, 03/03/21 17:24:00 EDT, Tablet, [facility]/pharmacy #[id number], Partial fill upo... Start Date: 03/03/21 Status: Ordered aspirin 81 mg oral delayed release tablet 81 mg, 1, tablet, By Mouth, Daily, # 90 tablet, Refills 0, Tot. Refills 0, Maintenance, 01/01/21 11:26:00 EDT, Route to Pharmacy Electronically, [facility]/pharmacy #[id number], Partial fill upon patient request [...] Need length 99 months Please send to [facility], 01/21/21 13:20:00 EDT, Supply Start Date: 01/21/21 Status: Ordered carbidopa-levodopa 25 mg-100 mg oral tablet 1 tablet, By Mouth, 3 times a day, Rx'd by Neurology at [facility] [place]/ Dr. Murphy, # 270 tablet, 0 Refills, Maintenance, 04/15/21 23:30:00 EDT, Tablet, Partial fill upon patient request if the prescription is for a schedule II opioid drug. Start Date: 04/15/21 Status: Ordered chlorthalidone 25 mg oral tablet 1, tablet, By Mouth, Daily, # 30 tablet, Refills 5, Route to Pharmacy Electronically, [facility] STORE 80400, 184, cm, 03/30/21 16:08:00 EDT, Height, 123.27, kg, 06/25/19 13:22:00 EST, Dry Weight Start Date: 04/07/21 Status: Ordered Claritin 10 mg oral tablet 10 mg, 1, tablet, By Mouth, Daily, more sea necesario para alergia, # 30 tablet, Refills 5, Tot. Refills 5, Maintenance, 04/13/21 10:04:00 EDT, Route to Pharmacy Electronically, [facility]/pharmacy #[id number], 184, cm, 04/13/21 9:26:00 EDT, Height, 123.27, kg, 01... Start Date: 04/13/21 Status: Ordered clonazePAM 2 mg oral tablet See Instructions, 1 tablet by mouth only NEEDED for severe panic attack. Dispense: #20 tabs per 30d., # 20 tablet, 0 Refills, Maintenance, 06/01/21 10:59:00 EST, Tablet, [facility]/pharmacy #[id number], Partial fill upon patient request [...] Refills, Maintenance, 03/03/21 17:36:00 EDT, Cream, [facility]/pharmacy #[id number], Partial fill upon patient request if the prescription is for a schedule II opioid drug., 1 application Topically 3 ti... Start Date: 03/03/21 Status: Ordered cyanocobalamin 1000 mcg oral tablet 1,000 mcg, 1, tablet, By Mouth, Daily, # 90 tablet, Refills 11, Tot. Refills 11, Maintenance, 08/02/23 13:12:00 EST, Route to Pharmacy Electronically, [facility]/pharmacy #[id number], 184, cm, 01/01/21 10:56:00 EDT, [...] Refills, Maintenance, 01/11/21 15:23:00 EDT, Tablet, [facility]/pharmacy #[id number], Partial fill upon patient request if the prescription is for a schedule II opioid drug., 184, cm,... Start Date: 01/11/21 Status: Ordered escitalopram 10 mg oral tablet 1 tablet = 10 mg, By Mouth, Daily, New medication for anxiety and depression (started 06/01/21), # 30 tablet, 5 Refills, Maintenance, 06/01/21 11:00:00 EST, Tablet, [id number], Partial fill upon [...] Refills, Maintenance, 02/10/21 13:09:00 EDT, Ointment, [facility]/pharmacy #[id number], Partial fill upon patient request if the prescription is for a schedule II opioid drug., 1 application Top... Start Date: 02/10/21 Status: Ordered magnesium oxide 400 mg oral tablet 1 tablet = 400 mg, By Mouth, Daily, [facility] [place]/ Dr. Murphy, 0 Refills, Maintenance, 04/15/21 23:30:00 [...] Refills, Maintenance, 03/03/21 17:29:00 EDT, Tablet, [facility]/pharmacy #[id number], Partial fill upon p... Start Date: 03/03/21 Status: Ordered nicotine 21 mg/24 hr transdermal film, extended release 1 patch, Topically, Daily, for 6 week(s), Rx in [place], # 42 patch, 1 Refills, Acute 08/16/21 [...] 28 tablet, 0 Refills, Maintenance, [facility], 184, cm, 02/01/21 10:51:00 EDT, Height, 123.27, kg, 06/25/19 13:22:00 EST, Dry Weight Start Date: 02/01/21 Status: Ordered Tylenol Extra Strength 500 mg oral tablet 2 tablet = 1,000 mg, By Mouth, 3 times a day, PRN as needed for pain, # 100 tablet, 5 Refills, Maintenance, 04/13/21 10:08:00 EDT, Tablet, [id number], Partial fill upon patient request if theprescription [...] provided increased discomfort related to nerves. 3Seeing [place] neurology and sleep. Given a trial of Tegretol 200 mg upto 2 tablets twice a day andadvised to continue with Lyrica 300 mg twice a day. Had some improvement of the facial pain with this regimen. 4Seeing [place] neurology and asleep. On 09/11/2018 started on [...]
--- OUTSIDE RECORDS SUMMARY | 2023-11-02 08:27 | XMS_ITS | Continuity of Care Document ---
Author Organization [facility] Address [address] [place] [address]- Care Team Providers Care Payment Poster Name Role Phone Terence PRATHER, Azra Primary Care Physician Encounter [facility] Date(s): 11/06/20 - 12/06/[address] [address]- Allergies, Adverse Reactions, Alerts Substance Reaction Severity [...] 01/27/21 8:00:00 EDT, 11/27/20 10:53:00 EDT, Tablet, [facility]/pharmacy #[id number], Partial fill up... Start Date: 11/27/20 Stop Date: 01/27/21 Status: Ordered amLODIPine 10 mg oral tablet 10 mg, 1, tablet, By Mouth, Daily, # 90 tablet, Refills 3, Tot. Refills 3, Maintenance, 10/30/20 15:08:00 EDT, [id number] 184, cm, 10/30/20 14:15:00 EDT, Height, 123.27, kg, 06/25/19 13:22:00 EST, Dry Weight Start Date: 10/30/20 Status: Ordered aspirin 81 mg oral tablet 1 tablet = 81 mg, By Mouth, Daily, # 90 tablet, 3 Refills, Maintenance, 01/15/20 9:51:00 EDT, Tablet, [facility]/pharmacy #[id number], 184, cm, 01/15/20 9:11:00 [...] 02/07/20 9:49:00 EDT, Route to Pharmacy Electronically, [facility]/pharmacy #[id number], 184, cm, 01/29/20 14:16:00 [...] 08/17/20 13:12:00 EST, Route to Pharmacy Electronically, [facility]/pharmacy #[id number], 184, cm, 02/28/20 15:58:00 [...] 1 Refills, Maintenance, 12/03/20 16:21:00 EDT, Gel, [id number], Partial fill upon patient request if the prescription is for a schedule II... Start Date: 12/03/20 Status: Ordered Diovan 320 mg oral tablet 1 tablet = 320 mg, By Mouth, Daily, # 90 tablet, 3 Refills, Maintenance, 10/30/20 15:08:00 EDT, Tablet, [id number], 184, cm, 10/30/20 14:15:00 EDT, Height, 123.27, kg, 06/25/19 13:22:00 EST, Dry Weight Start Date: 10/30/20 Status: Ordered fluocinonide 0.05% topical cream See Instructions, 1 application Topically 3 times a day, as needed, for itchy rash. apply a thin film to affected areas, # 30 Gm, 0 Refills, Maintenance, 10/03/20 15:41:00 EDT, Cream, [id number], Partial fill upon patient request if the presc... Start Date: 10/03/20 Status: Ordered fluticasone 50 mcg/inh nasal spray See Instructions, USE 1 SPRAY IN EACH NOSTRIL EVERY MORNING, # 16 mL, 0 Refills, Maintenance, [facility] ST[facility] [address], 30, USE 1 SPRAY IN EACH NOSTRIL [...] Dry Weight Start Date: 02/06/20 Status: Ordered sulindac 150 mg oral tablet 1 tablet = 150 mg, By Mouth, 2 times a day, PRN Pain , Mild, # 28 tablet, 0 Refills, Maintenance, 11/11/20 9:35:00 EDT, Tablet, [id number], Partial fill upon patient request if the prescription is for a schedule II opioid drug., 184, cm, 11/11... Start Date: 11/11/20 Stop Date: 11/25/20 Status: Ordered Problem List Condition Effective Dates [...] provided increased discomfort related to nerves. 3Seeing [place] neurology and sleep. Given a trial of Tegretol 200 mg upto 2 tablets twice a day andadvised to continue with Lyrica 300 mg twice a day. Had some improvement of the facial pain with this regimen. 4Seeing [place] neurology and asleep. On 09/11/2018 started on [...]
--- OUTSIDE RECORDS SUMMARY | 2023-11-02 08:27 | XMS_ITS | Continuity of Care Document ---
Author Organization [facility] Address [address] [place] [address]- Care Team Providers Care Hospital Scientist Name Role Phone Dayo Castano MD Primary Care Physician [phone] [facility]counter [facility] Date[facility]s): 08/23/23 - 09/23/[address] [address]- Attending Physician: Not on Staff, Attending MD [...] influenza virus vaccine, inactivated 04/16/15 Give n [id number] 12y+ bivalent booster vax 02/21/23 Given SARS-CoV-2 (COVID-19) mRNA BNT-162b2 vac 1 06/01/21 Given SARS-CoV-2 (COVID-19) mRNA BNT-162b2 vac 11/07/20 Recorded SARS-CoV-2 (COVID-19) mRNA BNT-162b2 vac 10/17/20 Recorded zoster vaccine, inactivated 06/18/19 Recorded zoster vaccine, inactivated 06/17/19 Recorded zoster vaccine, inactivated 11/25/17 Recorded Influenza Vaccine (oldterm) 02/17/17 Recorded pneumococcal 23-valent vaccine 02/16/16 Given tetanus/diphtheria/pertussis, acel(Tdap) 11/25/14 Given 1Result Comment: DILUENT LOT#: [id number] EXP: 11/2022 MFG: FRESENSIUS Medications Albuterol (Eqv-ProAir [...] Mouth, Daily at bedtime, Rx'd by neurology ([facility]), # 30 tablet, 0 Refills, Maintenance, [...] Need length 99 months Please send to [email or web address], 01/21/21 13:20:00 EDT, Supply Start Date: 01/21/21 Status: Ordered carbidopa-levodopa 25 mg-100 mg oral tablet 1 tablet, By Mouth, 2 times a day, Rx'd by neurology at [facility], # 60 tablet, 0 Refills, Maintenance, 10/04/22 8:23:00 EDT, Tablet, Partial fill upon patient request if the prescription is for a schedule II opioid drug. Start Date: 10/04/22 Status: Ordered chlorthalidone 25 mg oral tablet 25 mg, 1, tablet, By Mouth, Daily in AM, Blood pressure, # 90 tablet, Refills 3, Tot. Refills 3, Maintenance, 04/04/23 8:45:00 EDT, [facility] 10/06/23 14:26:00 EDT, 08/07/23 14:26:00 EST, Cream, [facility]/pharmacy #[id number], Partial fill [...] Gm, 5 Refills, Maintenance, 07/04/23 8:59:00 EST, [facility]/pharmacy #[id number], 30, APPLY TOPICALLY TO [...] at bedtime, Rx'd by neurology at [facility], 0 Refills, Maintenance, 10/04/22 8:24:00 EDT, Capsule, Partial fill upon patient request if the prescription is for a schedule II opioid drug. Start Date: 10/04/22 Status: Ordered loratadine 10 mg oral tablet 1, tablet, By Mouth, Daily, PRN, # 90 tablet, Refills 3, Tot. Refills 3, NEEDED FOR ALLERGIES, 04/04/23 8:42:00 EDT, Route to Pharmacy Electronically, [facility]/pharmacy #[id number], 183, cm, 04/04/23 8:24:00EDT, Height, 123.2, kg, 02/07/22 12:47:00 EDT, Dry... Start Date: 04/04/23 Status: Ordered Metamucil 3.4 gm/5.2 gm oral powder for reconstitution = 3.4 Gm, By Mouth, 3 times a day, PRN as needed for constipation, # 425 Gm, 11 Refills, Maintenance, 08/07/23 14:34:00 EST, REC Powder, [facility]/pharmacy #[id number], Partial fill [...] SMOKING CESSATION, # 40 gum, 0 Refills, [facility], 184, cm, 12/27/21 11:50:00 EDT, Height Start [...] Stop 03/29/24 8:46:00 EDT, 04/04/23 8:46:00 EDT, [facility]/pharmacy #[id number], 1 capsule [...] Gm, 1 Refills, Maintenance, 04/04/23 8:46:00 EDT, [facility]/pharmacy #[id number], 14,DISSOLVE 17 GRAMS IN WATER & DRINK ONCE A DAY UNTIL BM,... Start Date: 04/04/23 Status: Ordered pregabalin 300 mg oral capsule 1 capsule = 300 mg, By Mouth, 2 times a day, Rx'd by neurology at [facility], # 60 capsule, 0 Refills, Maintenance, 10/04/22 8:24:00 EDT, Capsule, Partial fill upon patient request if the prescription is for a schedule II opioid drug. Start Date: 10/04/22 Status: Ordered primidone 50 mg oral tablet 100 mg, 2, tablet, By Mouth, 2 times a day, rx'd by neurology at [facility], # 120 tablet, Refills 0, Maintenance, [...] times a day, Rx'd by neurology at [facility], # 270 tablet, 0 Refills, [...] Maintenance, DX: M51. 26 please send to [facility], 08/08/22 15:41:00 EST, Supply Start [...] 14:39:00 EST, Aerosol, Route to Pharmacy Electronically, [id number], [facility]/pharmacy #[id number], 183, cm, 08/07/23 14:26:00 EST, Height,... [...] 11 Refills, Maintenance, 04/04/23 8:43:00 EDT, Tablet, [facility]/pharmacy #[id number], Partial fill upon patient request if theprescription is for a schedule II opioid drug., 183... Start Date: 04/04/23 Status: Ordered valsartan 320 mg oral tablet 1 tablet, By Mouth, Daily, blood pressure, # 90 tablet, 3 Refills, Maintenance, 04/04/23 8:46:00 EDT, [facility]/pharmacy #[id number], 183, cm, 04/04/23 8:24:00 EDT, Height, 123.2, kg, 02/07/22 12:47:00 EDT, Dry Weight Start Date: 04/04/23 Status: Ordered Vitamin B-12 1000 mcg oral tablet 1, tablet, By Mouth, Daily, # 90 tablet, Refills 1, Maintenance, 08/28/23 13:12:00 EDT, Route to Pharmacy Electronically, [facility], 183, cm, 08/22/23 13:24:00 EST, Height, 123.2, [...] Confirmed Active KERMIT (obstructive sleep apnea): bipap 1914 2 liters oxygen Confirmed Active Osteoarthritis of [...] increased discomfort related to nerves. 3Seeing [place] neurology and sleep. Given a trial of [...] Care Team Personnel Name: Casandra Parker Position: [facility] JUAN Office Staff Member Role: Lifetime Consulting Physician Name: Dayo Castano MD Position: [facility] Physician - Primary Care Member Role: PCP Address: Address: [address] [place] [address]- Care Team Related Persons Name: MURRAYYAHAIRAArmando YARAJOSEPHLinda Address: home [address] [place] [address] Name: LOLA BRADFORD Address: home [address] [place] [address] Name: GOLDIE [place]ERMA Address: [place] [address] Name: CASANDRA [place]ERMA Address: [place] [address] Name: KADE LERMA Address: home [address] [place] [address] Name: KADE LERMA Address: home [address] [place] [address]
--- OUTSIDE RECORDS SUMMARY | 2023-11-02 08:27 | XMS_ITS | Continuity of Care Document ---
Author Organization [facility] Address [address] [place] [address]- Care Team Providers Care Car Wash Manager Name Role Phone Keeley PRATHER, Dave Dash Primary Care Physician [facility] Date[facility]s): 11/17/22 - 12/17/[address] [address]- Allergies, Adverse Reactions, Alerts Substance Reaction Severity [...] acel(Tdap) 11/25/14 Given 1Result Comment: DILUENT LOT#: [id number] EXP: 11/2022 MFG: FRESENSIUS Medications amitriptyline 100 mg oral tablet 1 tablet = 100 mg, By Mouth, Daily at bedtime, Rx'd by neurology ([facility]), # 30 tablet, 0 Refills, [...] tablet, 1 Refills, Maintenance, 11/28/22 12:36:00 EDT, [facility]/pharmacy#[id number], 183, cm, 11/10/22 8:32:00 EDT, Height, [...] Need length 99 months Please send to [facility], 01/21/21 13:20:00 EDT, Supply Start Date: 01/21/21 Status: Ordered carbidopa-levodopa 25 mg-100 mg oral tablet 1 tablet, By Mouth, 2 times a day, Rx'd by neurology at [facility], # 60 tablet, 0 Refills, Maintenance, 10/04/22 8:23:00 EDT, Tablet, Partial fill upon patient request if the prescription is for a schedule II opioid drug. Start Date: 10/04/22 Status: Ordered chlorthalidone 25 mg oral tablet 25 mg, 1, tablet, By Mouth, Daily, # 30 tablet, Refills 5, Tot. Refills 5, Maintenance, 11/08/22 8:09:00 EDT, Route to Pharmacy Electronically, [facility]/pharmacy #[id number], Partial fill upon patient request if the [...] [facility]/pharmacy #[id number], 183, cm, 08/22/22 8:28:00 EST,Height, 123.2, kg, 02/07/22 12:47:00 EDT, Dry Weight Start Date: 07/01/29 Stop Date: 12/28/29 Status: Ordered cyclobenzaprine 5 mg oral tablet 1 tablet = 5 mg, By Mouth, 3 times a day, for 14 days, Muscle relaxant. May cause drowsiness. Take only as neded., # 42 tablet, 0 Refills, Acute 12/22/22 15:13:00 EDT, 12/08/22 15:13:00 EDT, Tablet, [facility]/pharmacy #[id number], Partial fill upon patient requ... Start Date: 12/08/22 Stop Date: 12/22/22 Status: Ordered Diabetic socks Diabetic socks, See [...] Refills, Maintenance, 11/24/22 10:47:00 EDT, [facility]/pharmacy #[id number], 30, APPLY TOPICALLY TO AFFECTED ARE TWICE A DAY NEEDED FOR PAIN, 183, cm, 11/10/22 8:32:0... Start Date: 11/24/22 Status: Ordered doxycycline hyclate 100 mg oral tablet 1 tablet = 100 mg, By Mouth, 2 times a day, # 14 tablet, 0 Refills, Maintenance, 12/03/22 9:09:00 EDT, Tablet, [facility]/pharmacy #[id number], [...] Daily at bedtime, Rx'd by neurology at [facility], 0 Refills, Maintenance, 10/04/22 8:24:00 EDT, Capsule, Partial fill upon patient request if the prescription is for a schedule II opioid drug. Start Date: 10/04/22 Status: Ordered levocetirizine 5 mg oral tablet 1 tablet = 5 mg, By Mouth, Daily in AM, # 30 tablet, 5 Refills, Maintenance, 11/17/22 10:19:00 EDT,Tablet, [facility]/pharmacy #[id number], Label in french, cetrizine not effective, 1 tablet By Mouth Daily in AM, 183, cm, 11/10/22 8:32:00 EDT, Height, 123.2, kg,... Start Date: 11/17/22 Status: Ordered loratadine 10 mg oral tablet 1, tablet, By Mouth, Daily, PRN, # 90 tablet, Refills 1, NEEDED FOR ALLERGIES, Route to PharmacyElectronically, [id number], 184, cm, 10/18/21 13:37:00 EDT, Height Start [...] SMOKING CESSATION, # 40 gum, 0 Refills, [email or web address] 18139, 184, cm, 12/27/21 11:50:00 EDT, Height Start [...] a day, # 180 capsule, 3 Refills, [email or web address] STORE [facility]7325, 90, TAKE 1 CAPSULE BY MOUTH TWICE A DAY, 183, cm, 02/08/22 6:42:00 EDT, Height, 123.2, kg, 02/07/22 12:47:00 EDT, Dry Weight Start Date: 02/09/22 Status: Ordered omeprazole 20 mg oral enteric coated capsule 1 capsule, By Mouth, Daily, # 90 capsule, 0 Refills, Maintenance, 11/24/22 10:47:00 EDT, [facility]/pharmacy #[id number], 183, cm, 11/10/22 8:32:00 EDT, [...] Refills, Maintenance, 08/31/22 9:06:00 EDT, [facility]/pharmacy #[id number], 14,DISSOLVE 17 GRAMS IN WATER & DRINK ONCE A DAY UNTIL BM,... Start Date: 08/31/22 Status: Ordered pregabalin 300 mg oral capsule 1 capsule = 300 mg, By Mouth, 2 times a day, Rx'd by neurology at [facility], # 60 capsule, 0 Refills, Maintenance, 10/04/22 8:24:00 EDT, Capsule, Partial fill upon patient request if the prescription is for a schedule II opioid drug. Start Date: 10/04/22 Status: Ordered primidone 50 mg oral tablet 100 mg, 2, tablet, By Mouth, 2 times a day, rx'd by neurology at [facility], # 120 tablet, Refills 0, [...] times a day, Rx'd by neurology at [facility], # 270 tablet, 0 Refills, Maintenance, [...] please send to [facility], 08/08/22 15:41:00 EST, Supply Start Date: 08/08/22 Status: Ordered Symbicort 160mcg/4.5mcg Inhaler 2, puffs, Inhalation, 2 times a day, # 6 Gm, Refills 0, Tot. Refills 0, Maintenance, 12/03/22 9:08:00 EDT, Aerosol, Route to Pharmacy Electronically, [id number], [facility]/pharmacy #[id number], 183, cm, 12/03/22 8:30:00 EDT, Height, 123.... Start Date: 12/03/22 Status: Ordered traMADol 50 mg oral tablet [...] Maintenance, 12/03/22 9:00:00 EDT, Tablet, [facility]/pharmacy #[id number], Partial fill upon patient request if the prescription is for a schedule II opioid drug., 183,... Start Date: 12/03/22 Status: Ordered valsartan 320 mg oral tablet 1 tablet, By Mouth, Daily, # 90 tablet, 3 Refills, Maintenance, 03/15/22 14:29:00 EDT, [facility], 183, cm, 02/08/22 6:42:00 EDT, Height, 123.2, [...] provided increased discomfort related to nerves. 3Seeing [place] neurology and sleep. Given a trial of [...] Team Personnel Name: Dave Mina MD Position: [facility] Physician - Primary Care Member Role: PCP Address: Address: [address] [place] [address]- Name: Olimpia Parker Position: [facility] JUAN Office Staff Member Role: Lifetime Consulting Physician Care Team Related Persons Name: JARROD BRADFORD Address: home [address] [place] [address] Name: LOLA BRADFORD Address: home [address] [place] [address] Name: GOLDIE LERMA Address: [place] [address] Name: IMELDA LERMANIFER Address: [place] [address] Name: KADE LERMA Address: home [address] [place] [address] Name: KADE LERMA Address: home [address] [place] [address]
--- OUTSIDE RECORDS SUMMARY | 2023-11-02 08:27 | XMS_ITS | Continuity of Care Document ---
Author Organization [facility] Address [address] [place] [address]- Care Team Providers Care Cto Name Role Phone Keeley PRATHER, Dave Dash Primary Care Physician [facility]): 11/16/22 - 12/16/[address] [address]- Allergies, Adverse Reactions, Alerts Substance Reaction Severity [...] acel(Tdap) 11/25/14 Given 1Result Comment: DILUENT LOT#: [id number] EXP: 11/2022 MFG: FRESENSIUS Medications amitriptyline 100 mg oral tablet 1 tablet = 100 mg, By Mouth, Daily at bedtime, Rx'd by neurology ([facility]), # 30 tablet, 0 Refills, Maintenance, 12/08/22 [...] tablet, 1 Refills, Maintenance, 11/28/22 12:36:00 EDT, [facility]/pharmacy#[id number], 183, cm, 11/10/22 8:32:00 EDT, Height, [...] Need length 99 months Please send to [facility], 01/21/21 13:20:00 EDT, Supply Start Date: 01/21/21 Status: Ordered carbidopa-levodopa 25 mg-100 mg oral tablet 1 tablet, By Mouth, 2 times a day, Rx'd by neurology at [facility], # 60 tablet, 0 Refills, Maintenance, 10/04/22 8:23:00 EDT, Tablet, Partial fill upon patient request if the prescription is for a schedule II opioid drug. Start Date: 10/04/22 Status: Ordered chlorthalidone 25 mg oral tablet 25 mg, 1, tablet, By Mouth, Daily, # 30 tablet, Refills 5, Tot. Refills 5, Maintenance, 11/08/22 8:09:00 EDT, Route to Pharmacy Electronically, [facility]/pharmacy #[id number], Partial fill upon patient request if the [...] 07/01/29 13:12:00 EST, Route to Pharmacy Electronically, [facility]/pharmacy #[id number], 183, cm, 08/22/22 [...] 12/22/22 15:13:00 EDT, 12/08/22 15:13:00 EDT, Tablet, [facility]/pharmacy #[id number], Partial fill upon patient requ... [...] Gm, 1 Refills, Maintenance, 11/24/22 10:47:00 EDT, [facility]/pharmacy #[id number], 30, APPLY TOPICALLY TO AFFECTED ARE TWICE A DAY NEEDED FOR PAIN, 183, cm, 11/10/22 8:32:0... Start Date: 11/24/22 Status: Ordered doxycycline hyclate 100 mg oral tablet 1 tablet = 100 mg, By Mouth, 2 times a day, # 14 tablet, 0 Refills, Maintenance, 12/03/22 9:09:00 EDT, Tablet, [facility]/pharmacy #[id number], [...] Daily at bedtime, Rx'd by neurology at [facility], 0 Refills, Maintenance, 10/04/22 8:24:00 EDT, Capsule, Partial fill upon patient request if the prescription is for a schedule II opioid drug. Start Date: 10/04/22 Status: Ordered levocetirizine 5 mg oral tablet 1 tablet = 5 mg, By Mouth, Daily in AM, # 30 tablet, 5 Refills, Maintenance, 11/17/22 10:19:00 EDT,Tablet, [id number], Label in tuvaluan, cetrizine not effective, 1 tablet By Mouth Daily in AM, 183, cm, 11/10/22 8:32:00 EDT, Height, 123.2, kg,... Start Date: 11/17/22 Status: Ordered loratadine 10 mg oral tablet 1, tablet, By Mouth, Daily, PRN, # 90 tablet, Refills 1, NEEDED FOR ALLERGIES, Route to PharmacyElectronically, [facility], 184, cm, 10/18/21 13:37:00 EDT, Height Start [...] SMOKING CESSATION, # 40 gum, 0 Refills, [facility] 237[facility], 184, cm, 12/27/21 11:50:00 EDT, Height Start [...] a day, # 180 capsule, 3 Refills, [facility] 00146, 90, TAKE 1 CAPSULE BY MOUTH TWICE A DAY, 183, cm, 02/08/22 6:42:00 EDT, Height, 123.2, kg, 02/07/22 12:47:00 EDT, Dry Weight Start Date: 02/09/22 Status: Ordered omeprazole 20 mg oral enteric coated capsule 1 capsule, By Mouth, Daily, # 90 capsule, 0 Refills, Maintenance, 11/24/22 10:47:00 EDT, [facility]/pharmacy #[id number], 183, cm, 11/10/22 8:32:00 EDT, [...] Gm, 1 Refills, Maintenance, 08/31/22 9:06:00 EDT, [facility]/pharmacy #[id number], 14,DISSOLVE 17 GRAMS IN WATER & DRINK ONCE A DAY UNTIL BM,... Start Date: 08/31/22 Status: Ordered pregabalin 300 mg oral capsule 1 capsule = 300 mg, By Mouth, 2 times a day, Rx'd by neurology at [facility], # 60 capsule, 0 Refills, Maintenance, 10/04/22 8:24:00 EDT, Capsule, Partial fill upon patient request if the prescription is for a schedule II opioid drug. Start Date: 10/04/22 Status: Ordered primidone 50 mg oral tablet 100 mg, 2, tablet, By Mouth, 2 times a day, rx'd by neurology at [facility], # 120 tablet, Refills 0, Maintenance, 12/08/22 [...] times a day, Rx'd by neurology at [facility], # 270 tablet, 0 Refills, Maintenance, [...] 9:08:00 EDT, Aerosol, Route to Pharmacy Electronically, [id number], [facility]/pharmacy #[id number], 183, cm, 12/03/22 8:30:00 EDT, [...] 5 Refills, Maintenance, 12/03/22 9:00:00 EDT, Tablet, [facility]/pharmacy #[id number], Partial fill upon patient request if the prescription is for a schedule II opioid drug., 183,... Start Date: 12/03/22 Status: Ordered valsartan 320 mg oral tablet 1 tablet, By Mouth, Daily, # 90 tablet, 3 Refills, Maintenance, 03/15/22 14:29:00 EDT, [facility], 183, cm, 02/08/22 6:42:00 EDT, Height, 123.2, [...] provided increased discomfort related to nerves. 3Seeing [place] neurology and sleep. Given a trial of [...] Team Personnel Name: Dave Mina MD Position: [facility] Physician - Primary Care Member Role: PCP Address: Address: [address] [place] [address]- Name: Olimpia Parker Position: [facility] JUAN Office Staff Member Role: Lifetime Consulting Physician Care Team Related Persons Name: JARROD BRADFORD Address: home [address] [place] [address] Name: LOLA BRADFORD Address: home [address] [place] [address] Name: GOLDIE LERMA Address: [place] [address] Name: OLIMPIA LERMA Address: [place] [address] Name: KADE LERMA Address: home [address] [place] [address] Name: KADE LERMA Address: home [address] [place] [address]
--- OUTSIDE RECORDS SUMMARY | 2023-11-02 08:27 | XMS_ITS | Continuity of Care Document ---
Author Organization [facility] Address [address] [place] [address]- Care Team Providers Care Library Clerical Assistant Name Role Phone Contractor Krystal FERNANDEZ Primary Care Physician [phone] [facility] Date[facility]s): 04/06/21 - 05/06/[address] [address] Allergies, Adverse Reactions, Alerts Substance Reaction [...] Need length 99 months Please send to [facility], 01/21/21 13:20:00 EDT, Supply Start Date: 01/21/21 Status: Ordered carbidopa-levodopa 25 mg-100 mg oral tablet 1 tablet, By Mouth, 3 times a day, [facility] Dr. Murphy, # 270 tablet, 0 Refills, Maintenance, 04/15/21 23:30:00 EDT, Tablet, Partial fill upon patient request if the prescription is for a schedule II opioid drug. Start Date: 04/15/21 Status: Ordered chlorthalidone 25 mg oral tablet 1, tablet, By Mouth, Daily, # 30 tablet, Refills 5, Route to Pharmacy Electronically, [facility] ST[facility] 94414, 184, cm, 03/30/21 16:08:00 EDT, Height, 123.27, [...] tablet, 0 Refills, Maintenance, 04/22/21 15:54:00 EDT, [facility]/pharmacy #[id number], Partial fill [...] 0 Refills, Maintenance, 04/05/21 15:54:00 EDT, Tablet, [facility]/pharmacy #[id number], [...] 2 Refills, Maintenance, 02/10/21 13:09:00 EDT, Ointment, [facility]/pharmacy #[id number], Partial fill upon patient request if the prescription is for a schedule II opioid drug., 1 application Top... Start Date: 02/10/21 Status: Ordered magnesium oxide 400 mg oral tablet 1 tablet = 400 mg, By Mouth, Daily, Rx'd by Neurology at [facility] [place]/ Dr. Murphy, 0 Refills, Maintenance, 04/15/21 23:30:00 [...] 3 Refills, Maintenance, 03/03/21 17:29:00 EDT, Tablet, [facility]/pharmacy #[id number], Partial fill upon p... Start [...] Maintenance, DX: M51. 26 please send to [facility], 01/21/21 13:20:00 EDT, Supply Start Date: 01/21/21 Status: Ordered sulindac 150 mg oral tablet See Instructions, TAKE 1 TABLET BY MOUTH TWICE A DAY NEEDED FOR PAIN, # 28 tablet, 0 Refills, Maintenance, [facility], 184, cm, 02/01/21 10:51:00 EDT, Height, 123.27, [...] provided increased discomfort related to nerves. 3Seeing [place] neurology and sleep. Given a trial of Tegretol 200 mg upto 2 tablets twice a day andadvised to continue with Lyrica 300 mg twice a day. Had some improvement of the facial pain with this regimen. 4Seeing [place] neurology and asleep. On 09/11/2018 started on [...]
--- OUTSIDE RECORDS SUMMARY | 2023-11-02 08:27 | XMS_ITS | Continuity of Care Document ---
Author Organization [facility] Address [address] [place] [address]- Care Team Providers Care C++ Professor Name Role Phone Ivone Oneil MD Primary Care Physician Encounter [facility] Date(s): 09/09/22 - 10/09/[address] [address]- Allergies, Adverse Reactions, Alerts Substance Reaction Severity [...] acel(Tdap) 11/25/14 Given 1Result Comment: DILUENT LOT#: [id number] EXP: 11/2022 MFG: FRESENSIUS Medications Aripiprazole 2 [...] 1 Refills, Maintenance, 05/13/22 14:40:00 EST, Tablet, [facility]/pharmacy #[id number], Partial fill upon patient request if the [...] Need length 99 months Please send to [facility], 01/21/21 13:20:00 EDT, Supply Start Date: 01/21/21 Status: Ordered carbidopa-levodopa 25 mg-100 mg oral tablet 1 tablet, By Mouth, 2 times a day, Rx'd by neurology at [facility], # 60 tablet, 0 Refills, Maintenance, 10/04/22 8:23:00 EDT, Tablet, Partial fill upon patient request if the prescription is for a schedule II opioid drug. Start Date: 10/04/22 Status: Ordered chlorthalidone 25 mg oral tablet 25 mg, 1, tablet, By Mouth, Daily, # 30 tablet, Refills 2, Tot. Refills 2, Maintenance, 08/23/22 8:42:00 EST, Route to Pharmacy Electronically, [facility]/pharmacy [...] 07/01/29 13:12:00 EST, Route to Pharmacy Electronically, [facility]/pharmacy #[id number], 183, cm, 08/22/22 8:28:00 EST,Height, [...] Gm, 2 Refills, Maintenance, 07/28/22 8:54:00 EST, [facility], 30, APPLY TOPICALLY TO AFFECTED ARE TWICE A DAY NEEDED FOR PAIN, 183, cm, 07/07/22 10:54:00 E... Start Date: 07/28/22 Status: Ordered empagliflozin 10 mg oral tablet 1 tablet = 10 mg, By Mouth, Daily in AM, # 30 tablet, 2 Refills, Maintenance, 08/23/22 8:44:00 EST,Tablet, [facility]/pharmacy #[id number], Partial fill upon patient request if the [...] Daily at bedtime, Rx'd by neurology at [facility], 0 Refills, Maintenance, 10/04/22 8:24:00 EDT, Capsule, Partial fill upon patient request if the prescription is for a schedule II opioid drug. Start Date: 10/04/22 Status: Ordered levocetirizine 5 mg oral tablet 1 tablet = 5 mg, By Mouth, Daily in AM, # 30 tablet, 2 Refills, Maintenance, 08/23/22 8:44:00 EST, Tablet, [facility]/pharmacy #[id number], Label in occitan, cetrizine not effective, 1 tablet By Mouth Daily in AM, 183, cm, 08/22/22 8:28:00 EST, Height, 123.2, kg,... Start Date: 08/23/22 Status: Ordered loratadine 10 mg oral tablet 1, tablet, By Mouth, Daily, PRN, # 90 tablet, Refills 1, NEEDED FOR ALLERGIES, Route to PharmacyElectronically, [facility], 184, cm, 10/18/21 13:37:00 EDT, Height Start [...] SMOKING CESSATION, # 40 gum, 0 Refills, [facility], 184, cm, 12/27/21 11:50:00 EDT, Height Start [...] a day, # 180 capsule, 3 Refills, [facility], 90, TAKE 1 CAPSULE BY MOUTH TWICE [...] times a day, Rx'd by neurology at [facility], # 60 capsule, 0 [...] times a day, Rx'd by neurology at [facility], # 270 tablet, 0 [...] please send to [facility], 08/08/22 15:41:00 EST, Supply Start Date: 08/08/22 Status: Ordered Symbicort 160mcg/4.5mcg Inhaler 2, puffs, Inhalation, 2 times a day, # 6 Gm, Refills 0, Tot. Refills 0, Maintenance, 12/27/21 12:43:00 EDT, Aerosol, Route to Pharmacy Electronically, [id number], [facility]/pharmacy #[id number], 184, cm, 12/27/21 11:50:00 EDT, [...] Refills, Maintenance, 03/15/22 14:29:00 EDT, [facility], 183, cm, 02/08/22 6:42:00 EDT, Height, 123.2, [...] provided increased discomfort related to nerves. 3Seeing [place] neurology and sleep. Given a trial of Tegretol 200 mg upto 2 tablets twice a day andadvised to continue with Lyrica 300 mg twice a day. Had some improvement of the facial pain with this regimen. 4Seeing [place] neurology and asleep. On 09/11/2018 started on [...] Care Team Personnel Name: Olimpia Parker Position: [facility] Office Staff Member Role: Lifetime Consulting Physician Name: Ivone Oneil MD Position: [facility] Primary Care Physician Member Role: PCP Address: Address: [address] [place] [address]- Care Team Related Persons Name: JARROD BRADFORD Address: home [address] [place] [address] Name: LOLA BRADFORD Address: home [address] [place] [address] Name: GOLDIE LERMA Address: [place] [address] Name: OLIMPIA LERMA Address: [place] [address] Name: KADE LERMA Address: home [address] [place] [id number] Name: KADE LERMA Address: home [address] [facility] [address] [place] [id number]
--- OUTSIDE RECORDS SUMMARY | 2023-11-02 08:27 | XMS_ITS | Continuity of Care Document ---
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 Start Date: 11/27/20 Stop Date: 01/27/21 Status: Ordered amLODIPine 10 mg oral tablet 10 mg, 1, tablet, By Mouth, Daily, # 90 tablet, Refills 3, Tot. Refills 3, Maintenance, 10/30/20 15:08:00 EDT, Route to Pharmacy Electronically, [facility]/pharmacy #[id number], 184, cm, 10/30/20 14:15:00 EDT, Height, 123.27, kg, 06/25/19 13:22:00 EST, Dry Weight Start Date: 10/30/20 Status: Ordered aspirin 81 mg oral delayed release tablet 81 mg, 1, tablet, By Mouth, Daily, # 90 tablet, Refills 0, Tot. Refills 0, Maintenance, 01/01/21 11:26:00 EDT, Route to Pharmacy Electronically, [facility]/pharmacy #[id number], Partial fill upon patient request if the prescription is for a schedule II opioid drug... Start Date: 01/01/21 Status: Ordered aspirin 81 mg oral tablet 1 tablet = 81 mg, By Mouth, Daily, # 90 tablet, 3 Refills, Maintenance, 01/15/20 9:51:00 EDT, Tablet, [facility]/pharmacy #[id number], 184, cm, 01/15/20 9:11:00 EDT, Height, [...] EDT, Route to Pharmacy Electronically, [facility]/pharmacy #[id number], 184, cm, 01/29/20 14:16:00 EDT, Height, [...] EST, Route to Pharmacy Electronically, [facility]/pharmacy #[id number], 184, cm, 02/28/20 15:58:00 EDT, Height, 123.27,... Start Date: 08/17/20 Stop Date: 08/02/23 Status: Ordered cyanocobalamin 1000 mcg oral tablet 1,000 mcg, 1, tablet, By Mouth, Daily, # 90 tablet, Refills 11, Tot. Refills 11, Maintenance, 08/02/23 13:12:00 EST, Route to Pharmacy Electronically, [facility]/pharmacy #[id number], 184, cm, 01/01/21 10:56:00 EDT, Height, [...] Refills, Maintenance, 12/03/20 16:21:00 EDT, Gel, [facility]/pharmacy #[id number], Partial fill upon patient request if the prescription is for a schedule II... Start Date: 12/03/20 Status: Ordered Diovan 320 mg oral tablet 1 tablet = 320 mg, By Mouth, Daily, # 90 tablet, 3 Refills, Maintenance, 01/01/21 11:24:00 EDT, Tablet, [facility]/pharmacy #[id number], 184, cm, 01/01/21 10:56:00 EDT, Height, 123.27, kg, 06/25/19 13:22:00 EST, Dry Weight Start Date: 01/01/21 Status: Ordered fluocinonide 0.05% topical cream See Instructions, 1 application Topically 3 times a day, as needed, for itchy rash. apply a thin film to affected areas, # 30 Gm, 0 Refills, Maintenance, 10/03/20 15:41:00 EDT, Cream, [facility]/pharmacy #4441, Partial fill upon patient request if the presc... Start Date: 10/03/20 Status: Ordered fluticasone 50 mcg/inh nasal spray See Instructions, USE 1 SPRAY IN EACH NOSTRIL EVERY MORNING, # 16 mL, 0 Refills, Maintenance, [facility], 30, USE 1 SPRAY IN EACH NOSTRIL [...] Refills, Maintenance, 01/01/21 11:24:00 EDT, Tablet, [facility]/pharmacy #[id number], 184, cm, 01/01/21 10:56:00 EDT, Height, 123.27, kg, 06/25/19 13:22:00 EST, Dry Weight Start Date: 01/01/21 Status: Ordered omega-3 polyunsaturated fatty acids ethyl esters 1000 mg oral capsule 1 capsule = 1,000 mg, By Mouth, 2 times a day, # 60 capsule, 11 Refills, Maintenance, 01/01/21 11:25:00 EDT, Capsule, [facility]/pharmacy #[id number], 1 capsule By Mouth 2 times a day,x30 days, 184, cm, 01/01/21 10:56:00 EDT, Height, 123.27, kg, 06/25/19 13:22:00... Start Date: 01/01/21 Stop Date: 12/27/21 Status: Ordered omeprazole 20 mg oral enteric coated capsule 1 capsule = 20 mg, By Mouth, Daily, # 30 capsule, 2 Refills, Maintenance, 02/06/20 16:40:00 EDT, ECCapsule, [facility]/pharmacy #[id number], 184, cm, 01/29/20 14:16:00 EDT, Height, 123.27, kg, 06/25/19 13:22:00 EST, Dry Weight Start Date: 02/06/20 Status: Ordered Robaxin-750 750 mg oral tablet 2 tablet = 1,500 mg, By Mouth, 3 times a day, for 10 days, it make drowsiness, # 60 tablet, 0 Refills, Acute 01/11/21 11:23:00 EDT, 01/01/21 11:23:00 EDT, Tablet, [facility]/pharmacy #[id number], Partial fill upon patient request if [...] 0 Refills, Maintenance, 01/01/21 11:19:00 EDT, Tablet, [facility]/pharmacy #[id number], Partial fill upon patient request if the prescription is for a schedule II opioid drug., 184, cm, 12/17... Start Date: 01/01/21 Stop Date: 01/15/21 Status: Ordered sulindac 150 mg oral tablet See Instructions, TAKE 1 TABLET BY MOUTH TWICE DAILY NEEDED FOR PAIN, # 28 tablet, 0 Refills, Maintenance, [facility], 184, cm, 12/09/20 11:19:00 EDT, Height, 123.27, [...] provided increased discomfort related to nerves. 3Seeing [place] neurology and sleep. Given a trial of Tegretol 200 mg upto 2 tablets twice a day andadvised to continue with Lyrica 300 mg twice a day. Had some improvement of the facial pain with this regimen. 4Seeing [place] neurology and asleep. On 09/11/2018 started on [...]
--- OUTSIDE RECORDS SUMMARY | 2023-11-02 08:27 | XMS_ITS | Continuity of Care Document ---
Author Organization [facility] Address [address] [place] [address]- Care Team Providers Care Kiln Tester Name Role Phone Contractor Krystal FERNANDEZ Primary Care Physician [phone] Encounter [facility] Date(s): 03/08/21 - 04/07/[address] [address] Allergies, Adverse Reactions, Alerts Substance Reaction Severity Status penicillin Unknown Active gabapentin Active hydrOXYzine hydrochloride Ac tive Ventolin HFA Active Flovent HFA Active traZODone Active SEROquel Active Lantus Active ZyrTEC Active Immunizations Given and Recorded Vaccine Date Status Refusal Reason influenza virus vaccine, inactivated 03/30/21 Give n influenza virus vaccine, inactivated 03/02/20 Pvael rded influenza virus vaccine, inactivated 03/07/19 Give [...] 1 Refills, Maintenance, 03/17/21 10:19:00 EDT, Tablet, [facility]/pharmacy #[id number], Partial fill upon patient [...] 3 Refills, Maintenance, 03/03/21 17:24:00 EDT, Tablet, [facility]/pharmacy #[id number], Partial fill upo... Start Date: 03/03/21 Status: Ordered aspirin 81 mg oral delayed release tablet 81 mg, 1, tablet, By Mouth, Daily, # 90 tablet, Refills 0, Tot. Refills 0, Maintenance, 01/01/21 11:26:00 EDT, Route to Pharmacy Electronically, [facility]/pharmacy #[id number], Partial fill upon patient request if the prescription is for a schedule II opioid drug... Start Date: 01/01/21 Status: Ordered aspirin 81 mg oral tablet 1 tablet = 81 mg, By Mouth, Daily, # 90 tablet, 3 Refills, Maintenance, 01/15/20 9:51:00 EDT, Tablet, [facility]/pharmacy #[id number], 184, cm, 01/15/20 9:11:00 [...] Need length 99 months Please send to [facility], 01/21/21 13:20:00 EDT, Supply Start Date: 01/21/21 Status: Ordered chlorthalidone 25 mg oral tablet 1, tablet, By Mouth, Daily, # 30 tablet, Refills 5, Route to Pharmacy Electronically, [facility], 184, cm, 03/30/21 16:08:00 EDT, Height, 123.27, kg, 06/25/19 13:22:00 EST, Dry Weight Start Date: 04/07/21 Status: Ordered Claritin 10 mg oral tablet 10 mg, 1, tablet, By Mouth, Daily, # 30 tablet, Refills 3, Tot. Refills 3, Maintenance, 01/29/21 9:13:00 EDT, Route to Pharmacy Electronically, [facility]/pharmacy #[id number], 184, cm, 01/29/21 9:06:00 EDT, [...] 0 Refills, Maintenance, 03/03/21 17:36:00 EDT, Cream, [facility]/pharmacy #[id number], Partial fill upon patient request if the prescription is for a schedule II opioid drug., 1 application Topically 3 ti... Start Date: 03/03/21 Status: Ordered cyanocobalamin 1000 mcg oral tablet 1,000 mcg, 1, tablet, By Mouth, Daily, for 90 days, # 90 tablet, Refills 11, Tot. Refills 11, Hard Stop 08/02/23 13:12:00 EST, 08/17/20 13:12:00 EST, [id number] 184, cm, 02/28/20 15:58:00 EDT, Height, 123.27,... Start Date: 08/17/20 Stop Date: 08/02/23 Status: Ordered cyanocobalamin 1000 mcg oral tablet 1,000 mcg, 1, tablet, By Mouth, Daily, # 90 tablet, Refills 11, Tot. Refills 11, Maintenance, 08/02/23 13:12:00 EST, Route to Pharmacy Electronically, [facility]/pharmacy #[id number], 184, cm, 01/01/21 10:56:00 [...] 5 Refills, Maintenance, 01/11/21 15:23:00 EDT, Tablet, [facility]/pharmacy #[id number], Partial fill upon patient request if the prescription is for a schedule II opioid drug., 184, cm,... Start Date: 01/11/21 Status: Ordered escitalopram 5 mg oral tablet 1 tablet = 5 mg, By Mouth, Daily, This is a decrease in dose, # 14 tablet, 0 Refills, Maintenance, 04/05/21 15:54:00 EDT, Tablet, [facility]/pharmacy #[id number], Partial fill upon patient request if the prescription is for a schedule II opioid drug., 184, cm, 10/... Start Date: 04/05/21 Stop Date: 04/19/21 Status: Ordered fluticasone 50 mcg/inh nasal spray See Instructions, USE 1 SPRAY IN EACH NOSTRIL EVERY MORNING, # 16 mL, 3 Refills, 01/29/21 9:11:00 EDT, [facility]/pharmacy #[id number], 30, USE 1 SPRAY [...] 2 Refills, Maintenance, 02/10/21 13:09:00 EDT, Ointment, [facility]/pharmacy #[id number], Partial fill upon patient request if the [...] 3 Refills, Maintenance, 03/03/21 17:29:00 EDT, Tablet, [facility]/pharmacy #[id number], Partial fill upon p... [...] Maintenance, DX: M51. 26 please send to [facility], 01/21/21 13:20:00 EDT, Supply Start Date: 01/21/21 Status: Ordered sulindac 150 mg oral tablet See Instructions, TAKE 1 TABLET BY MOUTH TWICE A DAY NEEDED FOR PAIN, # 28 tablet, 0 Refills, Maintenance, [facility], 184, cm, 02/01/21 10:51:00 EDT, Height, 123.27, [...] 5 Refills, Maintenance, 03/11/21 9:40:00 EDT, Tablet, [facility]/pharmacy #[id number], Partial fill upon patient request if the [...] provided increased discomfort related to nerves. 3Seeing [place] neurology and sleep. Given a trial of Tegretol 200 mg upto 2 tablets twice a day andadvised to continue with Lyrica 300 mg twice a day. Had some improvement of the facial pain with this regimen. 4Seeing [place] neurology and asleep. On 09/11/2018 started on [...]
--- OUTSIDE RECORDS SUMMARY | 2023-11-02 08:27 | XMS_ITS | Continuity of Care Document ---
Author Organization [facility] Address [address] [place] [address]- Care Team Providers Care Shift Nurse Manager Name Role Phone Terence PRATHER, Azra Primary Care Physician Encounter [facility] Date(s): 07/23/20 - 08/22/20 [facility] [address] [place] [address]- Allergies, Adverse Reactions, Alerts Substance Reaction Severity [...] 01/15/20 9:51:00 EDT, Route to Pharmacy Electronically, [facility]/pharmacy #[id number], 184, cm, 01/15/20 9:11:00 EDT, Height, 123.27, kg, 06/25/19 13:22:00 EST, Dry Weight Start Date: 01/15/20 Stop Date: 03/15/20 Status: Ordered aspirin 81 mg oral tablet 1 tablet = 81 mg, By Mouth, Daily, # 90 tablet, 3 Refills, Maintenance, 01/15/20 9:51:00 EDT, Tablet, [facility]/pharmacy #[id number], 184, cm, 01/15/20 9:11:00 [...] 02/07/20 9:49:00 EDT, Route to Pharmacy Electronically, [facility]/pharmacy #[id number], 184, cm, 01/29/20 14:16:00 [...] 08/17/20 13:12:00 EST, Route to Pharmacy Electronically, [facility]/pharmacy #[id number], 184, cm, 02/28/20 15:58:00 [...] 3 Refills, Maintenance, 01/15/20 9:51:00 EDT, Tablet, [facility]/pharmacy #[id number], 184, cm, 01/15/20 9:11:00 EDT, Height, 123.27, kg, 06/25/19 13:22:00 EST, Dry Weight Start Date: 01/15/20 Stop Date: 03/15/20 Status: Ordered fluticasone 50 mcg/inh nasal spray See Instructions, USE 1 SPRAY IN EACH NOSTRIL EVERY MORNING, # 16 mL, 0 Refills, Maintenance, [facility], 30, USE 1 SPRAY IN EACH NOSTRIL [...] 2 Refills, Maintenance, 01/27/20 10:39:00 EDT, Capsule, [facility]/pharmacy #[id number], 184, cm, 01/15/20 9:52:00 EDT, Height, 123.27, kg, 06/25/19 13:22:00 EST, Dry Weight Start Date: 01/27/20 Stop Date: 07/25/20 Status: Ordered metFORMIN 500 mg oral tablet 1 tablet = 500 mg, By Mouth, Daily, with meals, # 90 tablet, 11 Refills, Maintenance, 03/02/20 9:56:00 EDT, Tablet, [facility]/pharmacy #[id number], 184, cm, 02/28/20 15:58:00 EDT, Height, 123.27, kg, 06/25/19 13:22:00 EST, Dry Weight Start Date: 03/02/20 Status: Ordered omeprazole 20 mg oral enteric coated capsule 1 capsule = 20 mg, By Mouth, Daily, # 30 capsule, 2 Refills, Maintenance, 02/06/20 16:40:00 EDT, ECCapsule, [facility]/pharmacy #[id number], 184, cm, 01/29/20 14:16:00 [...] provided increased discomfort related to nerves. 3Seeing [place] neurology and sleep. Given a trial of Tegretol 200 mg upto 2 tablets twice a day andadvised to continue with Lyrica 300 mg twice a day. Had some improvement of the facial pain with this regimen. 4Seeing [place] neurology and asleep. On 09/11/2018 started on [...]
--- OUTSIDE RECORDS SUMMARY | 2023-11-02 08:27 | XMS_ITS | Continuity of Care Document ---
Author Organization [facility] Address [address] [place] [address]- Care Team Providers Care Sports Broadcaster Name Role Phone Dayo Castano MD Primary Care Physician Encounter [facility] Date(s): 03/16/23 - 04/15/[address] [address]- Allergies, Adverse Reactions, Alerts Substance Reaction Severity [...] influenza virus vaccine, inactivated 04/16/15 Give n [id number] 12y+ bivalent booster vax 02/21/23 Given SARS-CoV-2 (COVID-19) mRNA BNT-162b2 vac 1 06/01/21 Given SARS-CoV-2 (COVID-19) mRNA BNT-162b2 vac 11/07/20 Recorded SARS-CoV-2 (COVID-19) mRNA BNT-162b2 vac 10/17/20 Recorded zoster vaccine, inactivated 06/18/19 Recorded zoster vaccine, inactivated 06/17/19 Recorded zoster vaccine, inactivated 11/25/17 Recorded Influenza Vaccine (oldterm) 02/17/17 Recorded pneumococcal 23-valent vaccine 02/16/16 Given tetanus/diphtheria/pertussis, acel(Tdap) 11/25/14 Given 1Result Comment: DILUENT LOT#: [id number] EXP: 11/2022 MFG: FRESENSIUS Medications Albuterol (Eqv-ProAir [...] Mouth, Daily at bedtime, Rx'd by neurology ([facility]), # 30 tablet, 0 Refills, Maintenance, 12/08/22 [...] Need length 99 months Please send to [facility], 01/21/21 13:20:00 EDT, Supply [...] 04/04/23 8:45:00 EDT, Route to Pharmacy Electronically, [facility]/pharmacy #[id number], Partial fill upon patient request if the [...] 04/04/23 8:46:00 EDT, Route to Pharmacy Electronically, [facility]/pharmacy #[id number], 183, cm, 04/04/23 8:24:00 EDT, [...] Gm, 5 Refills, Maintenance, 01/26/23 9:21:00 EDT, [facility]/pharmacy #[id number], 30, APPLY TOPICALLY TO AFFECTED [...] 04/04/23 8:42:00 EDT, Route to Pharmacy Electronically, [facility]/pharmacy #[id number], 183, cm, 04/04/23 8:24:00EDT, Height, 123.2, kg, 02/07/22 12:47:00 EDT, Dry... Start Date: 04/04/23 Status: Ordered Metamucil 3.4 gm/5.2 gm oral powder for reconstitution = 3.4 Gm, By Mouth, 3 times a day, PRN as needed for constipation, # 425 Gm, 11 Refills, Maintenance, 09/12/22 20:51:00 EDT, REC Powder, [facility]/pharmacy #[id number], Partial fill upon patient request [...] SMOKING CESSATION, # 40 gum, 0 Refills, [facility], 184, cm, 12/27/21 11:50:00 EDT, Height Start [...] Stop 03/29/24 8:46:00 EDT, 04/04/23 8:46:00 EDT, [facility]/pharmacy #[id number], 1 capsule By Mouth 2 times a day,x90 days, 183, cm, 04/04/23 8:24:00 EDT, Height, 123.2, kg, 01/18... Start Date: 04/04/23 Stop Date: 03/29/24 Status: Ordered omeprazole 20 mg oral enteric coated capsule 1 capsule, By Mouth, Daily, # 90 capsule, 3 Refills, Maintenance, 04/04/23 8:46:00 EDT, [facility]/pharmacy #[id number], 183, cm, 04/04/23 8:24:00 EDT, [...] Gm, 1 Refills, Maintenance, 04/04/23 8:46:00 EDT, [facility]/pharmacy #[id number], 14,DISSOLVE 17 GRAMS IN WATER [...] times a day, rx'd by neurology at [facility], # 120 tablet, Refills 0, Maintenance, 12/08/22 [...] DX: M51. 26 please send to [facility], 08/08/22 15:41:00 EST, Supply Start Date: 08/08/22 Status: Ordered Symbicort 160mcg/4.5mcg Inhaler 2, puffs, Inhalation, 2 times a day, # 6 Gm, Refills 11, Tot. Refills 11, Maintenance, 04/04/23 8:44:00 EDT, Aerosol, Route to Pharmacy Electronically, [id number], [facility]/pharmacy #[id number], 183, cm, 04/04/23 8:24:00 EDT, [...] 11 Refills, Maintenance, 04/04/23 8:43:00 EDT, Tablet, [facility]/pharmacy #[id number], Partial fill upon patient request if theprescription is for a schedule II opioid drug., 183... Start Date: 04/04/23 Status: Ordered valsartan 320 mg oral tablet 1 tablet, By Mouth, Daily, blood pressure, # 90 tablet, 3 Refills, Maintenance, 04/04/23 8:46:00 EDT, [facility]/pharmacy #[id number], 183, cm, 04/04/23 8:24:00 EDT, Height, 123.2, kg, 02/07/22 12:47:00 EDT, Dry Weight Start Date: 04/04/23 Status: Ordered Xopenex HFA 45 mcg/inh inhalation aerosol 2 puffs, Inhalation, Every 4 hours, PRN Wheezing/Shortness of Breath, replaces Ventolin due to reaction, # 1 each, 1 Refills, Maintenance, 02/15/23 11:23:00 EDT, Aerosol, [facility]/pharmacy #[id number], Partial fill upon patient request [...] provided increased discomfort related to nerves. 3Seeing [place] neurology and sleep. Given a trial of [...] Care Team Personnel Name: Olimpia Parker Position: [facility] Office Staff Member Role: Lifetime Consulting Physician Name: Dayo Castano MD Position: [facility] Physician - Primary Care Member Role: PCP Address: Address: [address] [place] [address]- [place] Care Team Related Persons Name: JARROD BRADFORD Address: home [address] [place] [address] Name: LOLA BRADFORD Address: home [address] [place] [address] Name: GOLDIE LERMA Address: [place] [address] Name: OLIMPIA LERMA Address: [place] [address] Name: KADE LERMA Address: home [address] [place] [address] Name: KADE LERMA Address: home [address] [place] [address]
--- OUTSIDE RECORDS SUMMARY | 2023-11-02 08:27 | XMS_ITS | Continuity of Care Document ---
Author Organization [facility] Address [address] [place] [address]- Care Team Providers Care Transportation Job Titles Name Role Phone Contractor Krystal FERNANDEZ Primary Care Physician Encounter [facility] Date(s): 01/27/21 - 02/26/[address] [address]- Allergies, Adverse Reactions, Alerts Substance Reaction Severity [...] 10/30/20 15:08:00 EDT, Route to Pharmacy Electronically, [facility]/pharmacy #[id number], 184, cm, 10/30/20 14:15:00 EDT, Height, 123.27, kg, 06/25/19 13:22:00 EST, Dry Weight Start Date: 10/30/20 Status: Ordered aspirin 81 mg oral delayed release tablet 81 mg, 1, tablet, By Mouth, Daily, # 90 tablet, Refills 0, Tot. Refills 0, Maintenance, 01/01/21 11:26:00 EDT, Route to Pharmacy Electronically, [facility]/pharmacy #[id number], Partial fill upon patient request if the prescription is for a schedule II opioid drug... Start Date: 01/01/21 Status: Ordered aspirin 81 mg oral tablet 1 tablet = 81 mg, By Mouth, Daily, # 90 tablet, 3 Refills, Maintenance, 01/15/20 9:51:00 EDT, Tablet, [facility]/pharmacy #[id number], 184, cm, 01/15/20 9:11:00 EDT, [...] Need length 99 months Please send to [facility], 01/21/21 13:20:00 EDT, Supply Start Date: 01/21/21 Status: Ordered Claritin 10 mg oral tablet 10 mg, 1, tablet, By Mouth, Daily, # 30 tablet, Refills 3, Tot. Refills 3, Maintenance, 01/29/21 9:13:00 EDT, Route to Pharmacy Electronically, [facility]/pharmacy #[id number], 184, cm, 01/29/21 9:06:00 EDT, [...] 08/17/20 13:12:00 EST, Route to Pharmacy Electronically, [facility]/pharmacy #[id number], 184, cm, 02/28/20 15:58:00 EDT, Height, 123.27,... Start Date: 08/17/20 Stop Date: 08/02/23 Status: Ordered cyanocobalamin 1000 mcg oral tablet 1,000 mcg, 1, tablet, By Mouth, Daily, # 90 tablet, Refills 11, Tot. Refills 11, Maintenance, 08/02/23 13:12:00 EST, Route to Pharmacy Electronically, [facility]/pharmacy #[id number], 184, cm, 01/01/21 10:56:00 EDT, [...] 3 Refills, Maintenance, 01/01/21 11:24:00 EDT, Tablet, [facility]/pharmacy #[id number], 184, cm, 01/01/21 10:56:00 EDT, Height, 123.27, kg, 06/25/19 13:22:00 EST, Dry Weight Start Date: 01/01/21 Status: Ordered docusate sodium 100 mg oral tablet 1 tablet = 100 mg, By Mouth, 2 times a day, PRN for constipation, # 60 tablet, 5 Refills, Maintenance, 01/11/21 15:23:00 EDT, Tablet, [facility]/pharmacy #[id number], Partial fill upon patient request if the prescription is for a schedule II opioid drug., 184, cm,... Start Date: 01/11/21 Status: Ordered fluticasone 50 mcg/inh nasal spray See Instructions, USE 1 SPRAY IN EACH NOSTRIL EVERY MORNING, # 16 mL, 3 Refills, 01/29/21 9:11:00 EDT, [facility]/pharmacy #[id number], 30, USE 1 SPRAY IN [...] 2 Refills, Maintenance, 02/10/21 13:09:00 EDT, Ointment, [facility]/pharmacy #[id number], Partial fill upon patient request if the prescription is for a schedule II opioid drug., 1 application Top... Start Date: 02/10/21 Status: Ordered metFORMIN 500 mg oral tablet 1 tablet = 500 mg, By Mouth, Daily, with meals, # 90 tablet, 11 Refills, Maintenance, 01/01/21 11:24:00 EDT, Tablet, [facility]/pharmacy #[id number], 184, cm, 01/01/21 10:56:00 EDT, Height, 123.27, kg, 06/25/19 13:22:00 EST, Dry Weight Start Date: 01/01/21 Status: Ordered omega-3 polyunsaturated fatty acids ethyl esters 1000 mg oral capsule 1 capsule = 1,000 mg, By Mouth, 2 times a day, # 60 capsule, 11 Refills, Maintenance, 01/01/21 11:25:00 EDT, Capsule, [facility]/pharmacy #[id number], 1 capsule By Mouth 2 times a day,x30 days, 184, cm, 01/01/21 10:56:00 EDT, Height, 123.27, kg, 06/25/19 13:22:00... Start Date: 01/01/21 Stop Date: 12/27/21 Status: Ordered omeprazole 20 mg oral enteric coated capsule 1 capsule = 20 mg, By Mouth, Daily, # 30 capsule, 2 Refills, Maintenance, 02/24/21 9:28:00 EDT, EC Capsule, [facility]/pharmacy #[id number], 184, cm, 02/03/21 10:57:00 EDT, [...] DX: M51. 26 please send to [facility], 01/21/21 13:20:00 EDT, Supply Start Date: 01/21/21 Status: Ordered sulindac 150 mg oral tablet See Instructions, TAKE 1 TABLET BY MOUTH TWICE A DAY NEEDED FOR PAIN, # 28 tablet, 0 Refills, Maintenance, [id number], 184, cm, 02/01/21 10:51:00 EDT, Height, 123.27, [...] 0 Refills, Maintenance, 02/18/21 8:37:00 EDT, Tablet, [facility]/pharmacy #[id number], Partial fill upon patient request if the [...] provided increased discomfort related to nerves. 3Seeing [place] [facility]y and sleep. Given a trial of Tegretol 200 mg upto 2 tablets twice a day andadvised to continue with Lyrica 300 mg twice a day. Had some improvement of the facial pain with this regimen. 4Seeing [facility]y and asleep. On 09/11/2018 started on [...]
--- OUTSIDE RECORDS SUMMARY | 2023-11-02 08:27 | XMS_ITS | Continuity of Care Document ---
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 Name Role Phone Contractor Krystal FERNANDEZ Primary Care Physician Encounter [facility] Date(s): 07/30/21 - 08/29/[address] [address]- Allergies, Adverse Reactions, Alerts Substance Reaction Severity [...] acel(Tdap) 11/25/14 Given 1Result Comment: DILUENT LOT#: [id number] EXP: 11/2022 MFG: FRESENSIUS Medications amitriptyline 100 mg oral tablet 1 tablet = 100 mg, By Mouth, Daily at bedtime, # 30 tablet, 3 Refills, Maintenance, 08/11/21 10:02:00 EST, Tablet, [facility]/pharmacy #[id number], Partial fill upon patient request [...] 3 Refills, Maintenance, 03/03/21 17:24:00 EDT, Tablet, [facility]/pharmacy #[id number], Partial fill upo... Start Date: 03/03/21 Status: Ordered aspirin 81 mg oral delayed release tablet 81 mg, 1, tablet, By Mouth, Daily, # 90 tablet, Refills 0, Tot. Refills 0, Maintenance, 01/01/21 11:26:00 EDT, Route to Pharmacy Electronically, [facility]/pharmacy #[id number], Partial fill upon patient request [...] Need length 99 months Please send to [facility], 01/21/21 13:20:00 EDT, Supply Start Date: 01/21/21 Status: Ordered carbidopa-levodopa 25 mg-100 mg oral tablet 1 tablet, By Mouth, 3 times a day, [facility]/ Dr. Murphy, # 270 tablet, 0 Refills, Maintenance, 04/15/21 23:30:00 EDT, Tablet, Partial fill upon patient request if the prescription is for a schedule II opioid drug. Start Date: 04/15/21 Status: Ordered chlorthalidone 25 mg oral tablet 1, tablet, By Mouth, Daily, # 30 tablet, Refills 5, Route to Pharmacy Electronically, [id number], 184, cm, 03/30/21 16:08:00 EDT, Height, 123.27, kg, 06/25/19 13:22:00 EST, Dry Weight Start Date: 04/07/21 Status: Ordered Claritin 10 mg oral tablet 10 mg, 1, tablet, By Mouth, Daily, more sea necesario para alergia, # 30 tablet, Refills 5, Tot. Refills 5, Maintenance, 04/13/21 10:04:00 EDT, Route to Pharmacy Electronically, [facility]/pharmacy #[id number], 184, cm, 04/13/21 9:26:00 EDT, Height, 123.27, kg, 01... Start Date: 04/13/21 Status: Ordered clonazePAM 2 mg oral tablet See Instructions, 1 tablet by mouth only NEEDED for severe panic attack. Dispense: #20 tabs per 20d., # 20 tablet, 0 Refills, Maintenance, 08/18/21 15:21:00 EST, Tablet, [facility]/pharmacy #[id number], Partial fill upon patient request [...] 0 Refills, Maintenance, 03/03/21 17:36:00 EDT, Cream, [facility]/pharmacy #[id number], Partial fill upon patient request if the prescription is for a schedule II opioid drug., 1 application Topically 3 ti... Start Date: 03/03/21 Status: Ordered cyanocobalamin 1000 mcg oral tablet 1,000 mcg, 1, tablet, By Mouth, Daily, # 90 tablet, Refills 11, Tot. Refills 11, Maintenance, 07/17/26 13:12:00 EST, Route to Pharmacy Electronically, [facility]/pharmacy #[id number], 184, cm, 07/26/21 9:11:00 EST, Height Start Date: 07/17/26 Stop Date: 07/01/29 Status: Ordered cyanocobalamin 1000 mcg oral tablet 1,000 mcg, 1, tablet, By Mouth, Daily, for 90 days, # 90 tablet, Refills 11, Tot. Refills 11, Hard Stop 07/17/26 13:12:00 EST, 08/02/23 13:12:00 EST, Route to Pharmacy Electronically, [facility]/pharmacy #[id number], 184, cm, 01/01/21 10:56:00 EDT, [...] 5 Refills, Maintenance, 01/11/21 15:23:00 EDT, Tablet, [facility]/pharmacy #[id number], Partial fill upon patient request if the prescription is for a schedule II opioid drug., 184, cm,... Start Date: 01/11/21 Status: Ordered escitalopram 20 mg oral tablet 1 tablet = 20 mg, By Mouth, Daily, # 30 tablet, 3 Refills, Maintenance, 07/13/21 12:26:00 EST, Tablet, [id number], d/c citalopram 10 mg, 184, cm, [...] 2 Refills, Maintenance, 02/10/21 13:09:00 EDT, Ointment, [facility]/pharmacy #[id number], Partial fill upon patient request if the prescription is for a schedule II opioid drug., 1 application Top... Start Date: 02/10/21 Status: Ordered magnesium oxide 400 mg oral tablet 1 tablet = 400 mg, By Mouth, Daily, Rx'd by Neurology at [facility]/ Dr. Murphy, 0 Refills, Maintenance, 04/15/21 23:30:00 [...] 3 Refills, Maintenance, 03/03/21 17:29:00 EDT, Tablet, [facility]/pharmacy #[id number], Partial fill upon p... Start Date: 03/03/21 Status: Ordered omega-3 polyunsaturated fatty acids ethyl esters 1000 mg oral capsule 1 capsule = 1,000 mg, By Mouth, 2 times a day, # 60 capsule, 11 Refills, Maintenance, 12/27/21 11:25:00 EDT, Capsule, [facility]/pharmacy #[id number], 1 capsule By Mouth 2 times a day,x30 days, 184, cm, 07/26/21 9:11:00 EST, Height Start Date: 12/27/21 Stop Date: 12/22/22 Status: Ordered omega-3 polyunsaturated fatty acids ethyl esters 1000 mg oral capsule 1 capsule = 1,000 mg, By Mouth, 2 times a day, for 30 days, # 60 capsule, 11 Refills, Hard Stop 12/27/21 11:25:00 EDT, 01/01/21 11:25:00 EDT, Capsule, [facility]/pharmacy #[id number], 184, cm, 01/01/21 10:56:00 EDT, Height, 123.27, kg, 06/25/19 13:22:00 EST, Dry W... Start Date: 01/01/21 Stop Date: 12/27/21 Status: Ordered omeprazole 20 mg oral enteric coated capsule 1 capsule, By Mouth, Daily, # 90 capsule, 0 Refills, [id number], 184, cm, 06/14/21 11:01:00 EST, Height, 123.27, kg, 06/25/19 13:22:00 EST, Dry Weight Start Date: 06/23/21 Status: Ordered pregabalin 300 mg oral capsule 1 capsule = 300 mg, By Mouth, 2 times a day, PRN pain, one tab twice daily prn pain, # 60 capsule, 0 Refills, Maintenance, 06/29/21 15:41:00 EST, Capsule, [facility]/pharmacy #[id number], Partial fill upon patient request if the prescription is for a schedule II o... Start Date: 06/29/21 Stop Date: 07/29/21 Status: Ordered Shower Chair See Instructions, # 1 each, Refills 0, Tot. Refills 0, Maintenance, DX: M51. 26 please send to [facility], 01/21/21 13:20:00 EDT, Supply Start Date: 01/21/21 Status: Ordered sulindac 150 mg oral tablet See Instructions, TAKE 1 TABLET BY MOUTH TWICE A DAY NEEDED FOR PAIN, # 28 tablet, 0 Refills, Maintenance, [id number], 184, cm, 02/01/21 10:51:00 EDT, Height, 123.27, kg, 06/25/19 13:22:00 EST, Dry Weight Start Date: 02/01/21 Status: Ordered Tylenol Extra Strength 500 mg oral tablet 2 tablet = 1,000 mg, By Mouth, 3 times a day, PRN as needed for pain, # 100 tablet, 5 Refills, Maintenance, 07/26/21 9:43:00 EST, Tablet, [id number], Partial fill upon patient request if the [...] provided increased discomfort related to nerves. 3Seeing [place] neurology and sleep. Given a trial of [...]
--- OUTSIDE RECORDS SUMMARY | 2023-11-02 08:27 | XMS_ITS | Continuity of Care Document ---
Author Organization [facility] Address [address] [place] [address]- Care Team Providers Care Mail Teller Name Role Phone Dayo Castano MD Primary Care Physician [phone] Encounter [facility] [place] ACCT R [id number] Date(s): 08/01/23 - 08/31/[address] [address]- Allergies, Adverse Reactions, Alerts Substance Reaction Severity [...] influenza virus vaccine, inactivated 04/16/15 Give n [id number] 12y+ bivalent booster vax 02/21/23 Given SARS-CoV-2 (COVID-19) mRNA BNT-162b2 vac 1 06/01/21 Given SARS-CoV-2 (COVID-19) mRNA BNT-162b2 vac 11/07/20 Recorded SARS-CoV-2 (COVID-19) mRNA BNT-162b2 vac 10/17/20 Recorded zoster vaccine, inactivated 06/18/19 Recorded zoster vaccine, inactivated 06/17/19 Recorded zoster vaccine, inactivated 11/25/17 Recorded Influenza Vaccine (oldterm) 02/17/17 Recorded pneumococcal 23-valent vaccine 02/16/16 Given tetanus/diphtheria/pertussis, acel(Tdap) 11/25/14 Given 1Result Comment: DILUENT LOT#: [id number] EXP: 11/2022 MFG: FRESENSIUS Medications Albuterol (Eqv-ProAir [...] Mouth, Daily at bedtime, Rx'd by neurology ([facility]), # 30 tablet, 0 Refills, Maintenance, [...] Need length 99 months Please send to [facility], 01/21/21 13:20:00 EDT, Supply Start Date: 01/21/21 Status: Ordered carbidopa-levodopa 25 mg-100 mg oral tablet 1 tablet, By Mouth, 2 times a day, Rx'd by neurology at [facility], # 60 tablet, 0 Refills, Maintenance, 10/04/22 8:23:00 EDT, Tablet, Partial fill upon patient request if the prescription is for a schedule II opioid drug. Start Date: 10/04/22 Status: Ordered chlorthalidone 25 mg oral tablet 25 mg, 1, tablet, By Mouth, Daily in AM, Blood pressure, # 90 tablet, Refills 3, Tot. Refills 3, Maintenance, 04/04/23 8:45:00 EDT, Route to Pharmacy Electronically, [facility]/pharmacy #[id number], Partial fill upon patient [...] 10/06/23 14:26:00 EDT, 08/07/23 14:26:00 EST, Cream, [facility]/pharmacy #[id number], Partial fill upon [...] Gm, 5 Refills, Maintenance, 07/04/23 8:59:00 EST, [facility]/pharmacy #[id number], 30, APPLY TOPICALLY TO [...] Daily at bedtime, Rx'd by neurology at [facility], 0 Refills, Maintenance, 10/04/22 8:24:00 EDT, Capsule, Partial fill upon patient request if the prescription is for a schedule II opioid drug. Start Date: 10/04/22 Status: Ordered loratadine 10 mg oral tablet 1, tablet, By Mouth, Daily, PRN, # 90 tablet, Refills 3, Tot. Refills 3, NEEDED FOR ALLERGIES, 04/04/23 8:42:00 EDT, Route to Pharmacy Electronically, [facility]/pharmacy #[id number], 183, cm, 04/04/23 8:24:00EDT, Height, 123.2, kg, 02/07/22 12:47:00 EDT, Dry... Start Date: 04/04/23 Status: Ordered Metamucil 3.4 gm/5.2 gm oral powder for reconstitution = 3.4 Gm, By Mouth, 3 times a day, PRN as needed for constipation, # 425 Gm, 11 Refills, Maintenance, 08/07/23 14:34:00 EST, REC Powder, [facility]/pharmacy #[id number], Partial fill [...] SMOKING CESSATION, # 40 gum, 0 Refills, [id number], 184, cm, 12/27/21 11:50:00 EDT, Height Start [...] Stop 03/29/24 8:46:00 EDT, 04/04/23 8:46:00 EDT, [facility]/pharmacy #[id number], 1 capsule By Mouth [...] Gm, 1 Refills, Maintenance, 04/04/23 8:46:00 EDT, [facility]/pharmacy #[id number], 14,DISSOLVE 17 GRAMS IN WATER & DRINK ONCE A DAY UNTIL BM,... Start Date: 04/04/23 Status: Ordered pregabalin 300 mg oral capsule 1 capsule = 300 mg, By Mouth, 2 times a day, Rx'd by neurology at [facility], # 60 capsule, 0 Refills, Maintenance, 10/04/22 8:24:00 EDT, Capsule, Partial fill upon patient request if the prescription is for a schedule II opioid drug. Start Date: 10/04/22 Status: Ordered primidone 50 mg oral tablet 100 mg, 2, tablet, By Mouth, 2 times a day, rx'd by neurology at [facility], # 120 tablet, Refills 0, Maintenance, [...] times a day, Rx'd by neurology at [facility], # 270 tablet, 0 Refills, [...] send to [facility], 08/08/22 15:41:00 EST, Supply Start Date: 08/08/22 Status: Ordered Symbicort 160mcg/4.5mcg Inhaler 2, puffs, Inhalation, 2 times a day, # 6 Gm, Refills 11, Tot. Refills 11, Maintenance, 08/07/23 14:39:00 EST, Aerosol, Route to Pharmacy Electronically, [id number], [facility]/pharmacy #[id number], 183, cm, 08/07/23 14:26:00 EST, [...] 11 Refills, Maintenance, 04/04/23 8:43:00 EDT, Tablet, [facility]/pharmacy #[id number], Partial fill upon patient request if theprescription is for a schedule II opioid drug., 183... Start Date: 04/04/23 Status: Ordered valsartan 320 mg oral tablet 1 tablet, By Mouth, Daily, blood pressure, # 90 tablet, 3 Refills, Maintenance, 04/04/23 8:46:00 EDT, [facility]/pharmacy #[id number], 183, cm, 04/04/23 8:24:00 EDT, Height, 123.2, kg, 02/07/22 12:47:00 EDT, Dry Weight Start Date: 04/04/23 Status: Ordered Vitamin B-12 1000 mcg oral tablet 1, tablet, By Mouth, Daily, # 90 tablet, Refills 1, Maintenance, 08/28/23 13:12:00 EDT, Route to Pharmacy Electronically, [id number], 183, cm, 08/22/23 13:24:00 EST, Height, 123.2, kg, 02/07/22 12:47:00 EDT, Dry Weight Start Date: 08/28/23 Status: Ordered Xopenex HFA 45 mcg/inh inhalation aerosol 2 puffs, Inhalation, Every 4 hours, PRN Wheezing/Shortness of Breath, replaces Ventolin due to reaction, # 1 each, 1 Refills, Maintenance, 02/15/23 11:23:00 EDT, Aerosol, [facility]/pharmacy #[id number], Partial fill upon patient [...] provided increased discomfort related to nerves. 3Seeing [place] neurology and sleep. Given a trial of [...] Care Team Personnel Name: Olimpia Parker Position: [facility] Office Staff Member Role: Lifetime Consulting Physician Name: Dayo Castano MD Position: [facility] Physician - Primary Care Member Role: PCP Address: Address: [address] [place] [address]- Care Team Related Persons Name: JARROD BRADFORD Address: home [address] [place] [address] Name: LOLA BRADFORD Address: home [address] [place] [address] Name: GOLDIE LERMA Address: [place] [address] Name: OLIMPIA LERMA Address: [place] [address] Name: KADE LERMA Address: home [address] [address] Name: KADE LERMA Address: home [address] [place] [id number]
--- OUTSIDE RECORDS SUMMARY | 2023-11-02 08:27 | XMS_ITS | Continuity of Care Document ---
Author Organization [facility] Address [address] [place] [id number]- Care Team Providers Care Hangersmith Name Role Phone Contractor Krystal FERNANDEZ Primary Care Physician [facility]counter [facility] Date(s): 04/19/21 - 05/19/[address] [address]- Allergies, Adverse Reactions, Alerts Substance Reaction Severity [...] 3 Refills, Maintenance, 04/13/21 10:02:00 EDT, Tablet, [facility]/pharmacy #[id number], Partial fill upon patient [...] 3 Refills, Maintenance, 03/03/21 17:24:00 EDT, Tablet, [facility]/pharmacy #[id number], Partial fill upo... Start Date: 03/03/21 Status: Ordered aspirin 81 mg oral delayed release tablet 81 mg, 1, tablet, By Mouth, Daily, # 90 tablet, Refills 0, Tot. Refills 0, Maintenance, 01/01/21 11:26:00 EDT, Route to Pharmacy Electronically, [facility]/pharmacy #[id number], Partial fill upon patient [...] Need length 99 months Please send to [facility], 01/21/21 13:20:00 EDT, Supply Start Date: 01/21/21 Status: Ordered carbidopa-levodopa 25 mg-100 mg oral tablet 1 tablet, By Mouth, 3 times a day, Rx'd by Neurology at [facility]/ Dr. Murphy, # 270 tablet, 0 Refills, Maintenance, 04/15/21 23:30:00 EDT, Tablet, Partial fill upon patient request if the prescription is for a schedule II opioid drug. Start Date: 04/15/21 Status: Ordered chlorthalidone 25 mg oral tablet 1, tablet, By Mouth, Daily, # 30 tablet, Refills 5, Route to Pharmacy Electronically, [id number], 184, cm, 03/30/21 16:08:00 EDT, Height, 123.27, kg, 06/25/19 13:22:00 EST, Dry Weight Start Date: 04/07/21 Status: Ordered Claritin 10 mg oral tablet 10 mg, 1, tablet, By Mouth, Daily, more sea necesario para alergia, # 30 tablet, Refills 5, Tot. Refills 5, Maintenance, 04/13/21 10:04:00 EDT, Route to Pharmacy Electronically, [facility]/pharmacy #[id number], 184, cm, 04/13/21 9:26:00 EDT, Height, 123.27, kg, 01... Start Date: 04/13/21 Status: Ordered clonazePAM 2 mg oral tablet 1 tablet = 2 mg, By Mouth, Daily, # 20 tablet, 0 Refills, Maintenance, 05/09/21 13:42:00 EST, [facility]/pharmacy #[id number], Partial fill upon patient [...] 0 Refills, Maintenance, 03/03/21 17:36:00 EDT, Cream, [facility]/pharmacy #[id number], Partial fill upon patient request if the prescription is for a schedule II opioid drug., 1 application Topically 3 ti... Start Date: 03/03/21 Status: Ordered cyanocobalamin 1000 mcg oral tablet 1,000 mcg, 1, tablet, By Mouth, Daily, # 90 tablet, Refills 11, Tot. Refills 11, Maintenance, 08/02/23 13:12:00 EST, Route to Pharmacy Electronically, [facility]/pharmacy #[id number], 184, cm, 01/01/21 10:56:00 [...] 5 Refills, Maintenance, 01/11/21 15:23:00 EDT, Tablet, [facility]/pharmacy #[id number], Partial fill upon patient request if the prescription is for a schedule II opioid drug., 184, cm,... Start Date: 01/11/21 Status: Ordered escitalopram 5 mg oral tablet 1 tablet = 5 mg, By Mouth, Daily, This is a decrease in dose, # 14 tablet, 0 Refills, Maintenance, 04/05/21 15:54:00 EDT, Tablet, [facility]/pharmacy #[id number], Partial fill upon patient request if the prescription is for a schedule II opioid drug., 184, cm, 10... Start Date: 04/05/21 Stop Date: 04/19/21 Status: Ordered fluticasone 50 mcg/inh nasal spray See Instructions, USE 1 SPRAY IN EACH NOSTRIL EVERY MORNING, # 16 mL, 3 Refills, 01/29/21 9:11:00 EDT, [facility]/pharmacy #[id number], 30, USE 1 SPRAY [...] 2 Refills, Maintenance, 02/10/21 13:09:00 EDT, Ointment, [facility]/pharmacy #[id number], Partial fill upon patient request if the prescription is for a schedule II opioid drug., 1 application Top... Start Date: 02/10/21 Status: Ordered magnesium oxide 400 mg oral tablet 1 tablet = 400 mg, By Mouth, Daily, [facility] Dr. [facility], 0 Refills, Maintenance, 04/15/21 23:30:00 [...] 3 Refills, Maintenance, 03/03/21 17:29:00 EDT, Tablet, [facility]/pharmacy #[id number], Partial fill upon p... Start Date: 03/03/21 Status: Ordered omega-3 polyunsaturated fatty acids ethyl esters 1000 mg oral capsule 1 capsule = 1,000 mg, By Mouth, 2 times a day, # 60 capsule, 11 Refills, Maintenance, 01/01/21 11:25:00 EDT, Capsule, [facility]/pharmacy #[id number], 1 capsule By Mouth [...] 28 tablet, 0 Refills, Maintenance, [facility], 184, cm, 02/01/21 10:51:00 EDT, Height, 123.27, [...] provided increased discomfort related to nerves. 3Seeing [place] neurology and sleep. Given a trial of Tegretol 200 mg upto 2 tablets twice a day andadvised to continue with Lyrica 300 mg twice a day. Had some improvement of the facial pain with this regimen. 4Seeing [place] neurology and asleep. On 09/11/2018 started on [...]
--- OUTSIDE RECORDS SUMMARY | 2023-11-02 08:28 | XMS_ITS | Continuity of Care Document ---
Author Organization [facility] Address [address] [place] [address]- Care Team Providers Care Head Of Science Name Role Phone Dayo Castano DO Primary Care Physician [id number] Date(s): 12/26/22 - 01/26/[address] [address]- Attending Physician: Not on Staff, Attending MD Referring Physician: Dave Mina MD Allergies, Adverse Reactions, Alerts Substance Reaction [...] acel(Tdap) 11/25/14 Given 1Result Comment: DILUENT LOT#: [id number] EXP: 11/2022 MFG: FRESENSIUS Medications Albuterol (Eqv-ProAir HFA) 90 mcg/inh inhalation aerosol 2 puffs, Inhalation, Every 6 hours, please give pt whatver is covered by his insrance use with spacer chamber, # 18 Gm, 5 Refills, Maintenance, 01/26/23 9:27:00 EDT, [facility]/pharmacy #[id number], Partial fill upon patient request if the prescription is for a... Start Date: 01/26/23 Status: Ordered amitriptyline 100 mg oral tablet 1 tablet = 100 mg, By Mouth, Daily at bedtime, Rx'd by neurology ([facility]), # 30 tablet, 0 Refills, Maintenance, [...] Need length 99 months Please send to [facility], 01/21/21 13:20:00 EDT, Supply Start Date: [...] 11/08/22 8:09:00 EDT, Route to Pharmacy Electronically, [facility]/pharmacy #[id number], Partial fill upon patient request if the [...] 07/01/29 13:12:00 EST, Route to Pharmacy Electronically, [facility]/pharmacy #[id number], 183, cm, 08/22/22 8:28:00 [...] Gm, 5 Refills, Maintenance, 01/26/23 9:21:00 EDT, [facility]/pharmacy #[id number], 30, APPLY TOPICALLY TO AFFECTED ARE TWICEA DAY NEEDED FOR PAIN, 183, cm, 01/26/23 9:04:00... Start Date: 01/26/23 Status: Ordered doxycycline hyclate 100 mg oral tablet 1 tablet = 100 mg, By Mouth, 2 times a day, # 14 tablet, 0 Refills, Maintenance, 12/03/22 9:09:00 EDT, Tablet, [facility]/pharmacy #[id number], Partial fill upon patient [...] tablet, 5 Refills, Maintenance, 11/17/22 10:19:00 EDT,Tablet, [facility]/pharmacy #[id number], Label in liberian, cetrizine not effective, 1 tablet By Mouth Daily in AM, 183, cm, 11/10/22 8:32:00 EDT, Height, 123.2, kg,... Start Date: 11/17/22 Status: Ordered loratadine 10 mg oral tablet 1, tablet, By Mouth, Daily, PRN, # 90 tablet, Refills 1, NEEDED FOR ALLERGIES, Route [facility]acy[facility]ronically, [facility], 184, cm, 10/18/21 13:37:00 EDT, Height Start Date: 10/22/21 Status: Ordered Metamucil 3.4 gm/5.2 gm oral powder for reconstitution = 3.4 Gm, By Mouth, 3 times a day, PRN as needed for constipation, # 425 Gm, 11 Refills, Maintenance, 09/12/22 20:51:00 EDT, REC Powder, [facility]/pharmacy #[id number], Partial fill upon patient [...] # 40 gum, 0 Refills, [facility], 184, cm, 12/27/21 11:50:00 EDT, Height Start [...] # 180 capsule, 3 Refills, [id number], 90, TAKE 1 CAPSULE BY MOUTH TWICE A DAY, 183, cm, 02/08/22 6:42:00 EDT, Height, 123.2, kg, 02/07/22 12:47:00 EDT, Dry Weight Start Date: 02/09/22 Status: Ordered omeprazole 20 mg oral enteric coated capsule 1 capsule, By Mouth, Daily, # 90 capsule, 0 Refills, Maintenance, 11/24/22 10:47:00 EDT, [facility]/pharmacy #[id number], 183, cm, 11/10/22 8:32:00 EDT, Height, [...] Gm, 1 Refills, Maintenance, 08/31/22 9:06:00 EDT, [facility]/pharmacy #[id number], 14,DISSOLVE 17 GRAMS IN [...] times a day, rx'd by neurology at [facility], # 120 tablet, Refills 0, Maintenance, [...] Maintenance, DX: M51. 26 please send to [facility], 08/08/22 15:41:00 EST, Supply Start Date: 08/08/22 Status: Ordered Symbicort 160mcg/4.5mcg Inhaler 2, puffs, Inhalation, 2 times a day, # 6 Gm, Refills 0, Tot. Refills 0, Maintenance, 12/22/22 21:20:00 EDT, Aerosol, Route to Pharmacy Electronically, [id number], [facility]/pharmacy #[id number], 183, cm, 12/08/22 8:26:00 [...] 5 Refills, Maintenance, 12/03/22 9:00:00 EDT, Tablet, [facility]/pharmacy #[id number], Partial fill upon patient request if the prescription is for a schedule II opioid drug., 183,... Start Date: 12/03/22 Status: Ordered valsartan 320 mg oral tablet 1 tablet, By Mouth, Daily, # 90 tablet, 3 Refills, Maintenance, 03/15/22 14:29:00 EDT, [facility], 183, cm, 02/08/22 6:42:00 EDT, Height, 123.2, [...] Care Team Personnel Name: Olimpia Parker Position: [facility] Office Staff Member Role: Lifetime Consulting Physician Name: Dayo Castano DO Position: [facility] Resident Member Role: PCP Address: Address: [address] [place] [address]- Care Team Related Persons Name: JARROD BRADFORD Address: home [address] [place] [address] Name: LOLA BRADFORD Address: home [address] [place] [address] Name: GOLDIE LERMA Address: [place] [address] Name: OLIMPIA LERMA Address: [place] [address] Name: KADE LERMA Address: home [address] [place] [address] Name: KADE LERMA Address: home [address] [place] [address]
--- OUTSIDE RECORDS SUMMARY | 2023-11-02 08:28 | XMS_ITS | Continuity of Care Document ---
Author Organization [facility] Address [address] [place] [address]- Care Team Providers Care Provider Network Manager Name Role Phone Contractor Krystal FERNANDEZ Primary Care Physician [phone] Encounter [facility] [place] Date(s): 01/04/21 - 02/03/[address] [address] Allergies, Adverse Reactions, Alerts Substance [...] 15:08:00 EDT, Route to Pharmacy Electronically, [facility]/pharmacy #[id number], 184, cm, 10/30/20 14:15:00 EDT, Height, 123.27, kg, 06/25/19 13:22:00 EST, Dry Weight Start Date: 10/30/20 Status: Ordered aspirin 81 mg oral delayed release tablet 81 mg, 1, tablet, By Mouth, Daily, # 90 tablet, Refills 0, Tot. Refills 0, Maintenance, 01/01/21 11:26:00 EDT, Route to Pharmacy Electronically, [facility]/pharmacy #[id number], Partial fill upon patient request if the prescription is for a schedule II opioid drug... Start Date: 01/01/21 Status: Ordered aspirin 81 mg oral tablet 1 tablet = 81 mg, By Mouth, Daily, # 90 tablet, 3 Refills, Maintenance, 01/15/20 9:51:00 EDT, Tablet, [facility]/pharmacy #[id number], 184, cm, 01/15/20 9:11:00 EDT, [...] Need length 99 months Please send to [facility], 01/21/21 13:20:00 EDT, Supply Start Date: 01/21/21 Status: Ordered Claritin 10 mg oral tablet 10 mg, 1, tablet, By Mouth, Daily, # 30 tablet, Refills 3, Tot. Refills 3, Maintenance, 01/29/21 9:13:00 EDT, Route to Pharmacy Electronically, [facility]/pharmacy #[id number], 184, cm, 01/29/21 9:06:00 EDT, [...] 13:12:00 EST, Route to Pharmacy Electronically, [facility]/pharmacy #[id number], 184, cm, 02/28/20 15:58:00 EDT, Height, 123.27,... Start Date: 08/17/20 Stop Date: 08/02/23 Status: Ordered cyanocobalamin 1000 mcg oral tablet 1,000 mcg, 1, tablet, By Mouth, Daily, # 90 tablet, Refills 11, Tot. Refills 11, Maintenance, 08/02/23 13:12:00 EST, Route to Pharmacy Electronically, [facility]/pharmacy #[id number], 184, cm, 01/01/21 10:56:00 EDT, [...] Refills, Maintenance, 01/01/21 11:24:00 EDT, Tablet, [facility]/pharmacy #[id number], 184, cm, 01/01/21 10:56:00 EDT, Height, 123.27, kg, 06/25/19 13:22:00 EST, Dry Weight Start Date: 01/01/21 Status: Ordered docusate sodium 100 mg oral tablet 1 tablet = 100 mg, By Mouth, 2 times a day, PRN for constipation, # 60 tablet, 5 Refills, Maintenance, 01/11/21 15:23:00 EDT, Tablet, [facility]/pharmacy #[id number], Partial fill upon patient request if the prescription is for a schedule II opioid drug., 184, cm,... Start Date: 01/11/21 Status: Ordered fluticasone 50 mcg/inh nasal spray See Instructions, USE 1 SPRAY IN EACH NOSTRIL EVERY MORNING, # 16 mL, 3 Refills, 01/29/21 9:11:00 EDT, [facility]/pharmacy #[id number], 30, USE 1 SPRAY IN [...] Mild, # 100 Gm, 2 Refills, Maintenance, 02/01/21 11:12:00 EDT, Ointment, [facility]/pharmacy #[id number], Partial fill upon patient request if the prescription is for a schedule II opioid drug., 1 application Top... Start Date: 02/01/21 Status: Ordered metFORMIN 500 mg oral tablet [...] 11 Refills, Maintenance, 01/01/21 11:25:00 EDT, Capsule, [facility]/pharmacy #[id number], 1 capsule By Mouth 2 times a day,x30 days, 184, cm, 01/01/21 10:56:00 EDT, Height, 123.27, kg, 06/25/19 13:22:00... Start Date: 01/01/21 Stop Date: 12/27/21 Status: Ordered omeprazole 20 mg oral enteric coated capsule 1 capsule = 20 mg, By Mouth, Daily, # 30 capsule, 2 Refills, Maintenance, 02/06/20 16:40:00 EDT, ECCapsule, [facility]/pharmacy #[id number], 184, cm, 01/29/20 14:16:00 EDT, [...] 28 tablet, 0 Refills, Maintenance, [facility], 184, cm, 02/01/21 10:51:00 EDT, Height, 123.27, kg, 06/25/19 13:22:00 EST, Dry Weight Start Date: 02/01/21 Status: Ordered traMADol 50 mg oral tablet 1 tablet = 50 mg, By Mouth, Every 6 hours, PRN as needed for pain, for 3 days, # 12 tablet, 0 Refills, Acute 02/04/21 11:12:00 EDT, 02/01/21 11:12:00 EDT, [facility]t, [id number], Partial fill upon patient request if the prescription is for a sched... Start Date: 02/01/21 Stop Date: 02/04/21 Status: Ordered traMADol 50 mg oral tablet [...] provided increased discomfort related to nerves. 3Seeing [place] neurology and sleep. Given a trial of Tegretol 200 mg upto 2 tablets twice a day andadvised to continue with Lyrica 300 mg twice a day. Had some improvement of the facial pain with this regimen. 4Seeing [place] neurology and asleep. On 09/11/2018 started on [...]
--- OUTSIDE RECORDS SUMMARY | 2023-11-02 08:28 | XMS_ITS | Continuity of Care Document ---
Author Organization [facility] Address [address] [place] [address]- Care Team Providers Care Resource Coordinator Name Role Phone Contractor Krystal FERNANDEZ Primary Care Physician Encounter [facility] Date(s): 08/17/21 - 09/16/[address] [address]- Allergies, Adverse Reactions, Alerts Substance Reaction Severity [...] acel(Tdap) 11/25/14 Given 1Result Comment: DILUENT LOT#: [id number] EXP: 11/2022 MFG: FRESENSIUS Medications amitriptyline 100 mg oral tablet 1 tablet = 100 mg, By Mouth, Daily at bedtime, # 30 tablet, 3 Refills, Maintenance, 08/11/21 10:02:00 EST, Tablet, [facility]/pharmacy #[id number], Partial fill [...] 0 Refills, Maintenance, 09/15/21 12:17:00 EDT, Tablet, [facility]/pharmacy #[id number], Partial fill [...] Need length 99 months Please send to [facility], 01/21/21 13:20:00 EDT, Supply Start Date: 01/21/21 Status: Ordered carbidopa-levodopa 25 mg-100 mg oral tablet 1 tablet, By Mouth, 3 times a day, Rx'd by Neurology at [facility] Alisa [place]/ Dr. Murphy, # 270 tablet, 0 Refills, Maintenance, 04/15/21 23:30:00 EDT, Tablet, Partial fill upon patient request if the prescription is for a schedule II opioid drug. Start Date: 04/15/21 Status: Ordered chlorthalidone 25 mg oral tablet 1, tablet, By Mouth, Daily, # 30 tablet, Refills 5, Route to Pharmacy Electronically, [id number], 184, cm, 03/30/21 16:08:00 EDT, Height, 123.27, kg, 06/25/19 13:22:00 EST, Dry Weight Start Date: 04/07/21 Status: Ordered Claritin 10 mg oral tablet 10 mg, 1, tablet, By Mouth, Daily, more sea necesario para alergia, # 30 tablet, Refills 5, Tot. Refills 5, Maintenance, 04/13/21 10:04:00 EDT, Route to Pharmacy Electronically, [facility]/pharmacy #[id number], 184, cm, 04/13/21 9:26:00 EDT, Height, [...] Refills, Maintenance, 03/03/21 17:36:00 EDT, Cream, [facility]/pharmacy #[id number], Partial fill upon patient [...] Refills, Maintenance, 01/11/21 15:23:00 EDT, Tablet, [facility]/pharmacy #[id number], Partial fill upon patient request if the prescription is for a schedule II opioid drug., 184, cm,... Start Date: 01/11/21 Status: Ordered escitalopram 20 mg oral tablet 1 tablet = 20 mg, By Mouth, Daily, # 30 tablet, 3 Refills, Maintenance, 07/13/21 12:26:00 EST, Tablet, [facility]/pharmacy #[id number], d/c citalopram 10 mg, 184, cm, 06/14/21 11:01:00 EST, Height Start Date: 07/13/21 Status: Ordered fluticasone 50 mcg/inh nasal spray See Instructions, USE 1 SPRAY IN EACH NOSTRIL EVERY MORNING, # 16 mL, 3 Refills, 01/29/21 9:11:00 EDT, [facility]/pharmacy #[id number], 30, USE 1 SPRAY IN EACH [...] Refills, Maintenance, 02/10/21 13:09:00 EDT, Ointment, [facility]/pharmacy #[id number], Partial fill upon patient request if the prescription is for a schedule II opioid drug., 1 application Top... Start Date: 02/10/21 Status: Ordered magnesium oxide 400 mg oral tablet 1 tablet = 400 mg, By Mouth, Daily, Rx'd by Neurology at [facility] Alisa [place]/ Dr. Murphy, 0 Refills, Maintenance, [...] 12/27/21 11:25:00 EDT, 01/01/21 11:25:00 EDT, Capsule, [facility]/pharmacy #[id number], 184, cm, 01/01/21 10:56:00 EDT, Height, 123.27, kg, 06/25/19 13:22:00 EST, Dry W... Start Date: 01/01/21 Stop Date: 12/27/21 Status: Ordered omeprazole 20 mg oral enteric coated capsule 1 capsule, By Mouth, Daily, # 90 capsule, 0 Refills, [facility], 184, cm, 06/14/21 11:01:00 EST, Height, 123.27, [...] DX: M51. 26 please send to [facility], 01/21/21 13:20:00 EDT, Supply Start Date: 01/21/21 Status: Ordered sulindac 150 mg oral tablet See Instructions, TAKE 1 TABLET BY MOUTH TWICE A DAY NEEDED FOR PAIN, # 28 tablet, 0 Refills, Maintenance, [facility], 184, cm, 02/01/21 10:51:00 EDT, Height, 123.27, [...] provided increased discomfort related to nerves. 3Seeing [place] neurology and sleep. Given a trial of Tegretol 200 mg upto 2 tablets twice a day andadvised to continue with Lyrica 300 mg twice a day. Had some improvement of the facial pain with this regimen. 4Seeing [place] neurology and asleep. On 09/11/2018 started on [...]
--- OUTSIDE RECORDS SUMMARY | 2023-11-02 08:28 | XMS_ITS | Continuity of Care Document ---
Author Organization [facility] Address [address] [place] [address]- Care Team Providers Care Engraver [employer] Name Role Phone Terence PRATHER, Azra Primary Care Physician [phone] [place]counter [facility] [place] Date(s): 02/07/20 - 03/08/20 [facility] [address] [place] [address]- [facility] Allergies, Adverse Reactions, Alerts Substance [...] 01/15/20 9:49:00 EDT, Route to Pharmacy Electronically, [facility]/pharmacy #[id number] Tablet, 184, cm, 01/15/20 9:11... Start Date: 01/15/20 Stop Date: 02/14/20 Status: Ordered amLODIPine 10 mg oral tablet 10 mg, 1, tablet, By Mouth, Daily, # 90 tablet, Refills 3, Tot. Refills 3, Maintenance, 01/15/20 9:51:00 EDT, [id number] 184, cm, 01/15/20 9:11:00 EDT, Height, 123.27, kg, 06/25/19 13:22:00 EST, Dry Weight Start Date: 01/15/20 Stop Date: 03/15/20 Status: Ordered aspirin 81 mg oral tablet 1 tablet = 81 mg, By Mouth, Daily, # 90 tablet, 3 Refills, Maintenance, 01/15/20 9:51:00 EDT, Tablet, [facility]/pharmacy #[id number], 184, cm, 01/15/20 9:11:00 [...] Pharm[facility]ically[id number], 184, cm, 02/28/20 15:58:00 EDT, [...] 3 Refills, Maintenance, 01/15/20 9:51:00 EDT, Tablet, [facility]/pharmacy #[id number], 184, cm, 01/15/20 9:11:00 EDT, Height, 123.27, kg, 06/25/19 13:22:00 EST, Dry Weight Start Date: 01/15/20 Stop Date: 03/15/20 Status: Ordered fluticasone 50 mcg/inh nasal spray See Instructions, USE 1 SPRAY IN EACH NOSTRIL EVERY MORNING, # 16 mL, 0 Refills, Maintenance, [facility], 30, USE 1 SPRAY IN EACH NOSTRIL [...] provided increased discomfort related to nerves. 3Seeing [place] neurology and sleep. Given a trial [...]
--- OUTSIDE RECORDS SUMMARY | 2023-11-02 08:28 | XMS_ITS | Continuity of Care Document ---
Author Organization [facility] Address [address] [place] [address]- Care Team Providers Care Regulatory Consultant Name Role Phone Terence PRATHER, Azra Primary Care Physician [place] [facility] [place]/03/[place] - 09/06/[address] [address] Attending Physician: Marcy Fernandez MD Admitting Physician: Marcy Fernandez MD Allergies, Adverse Reactions, Alerts Substance Reaction [...] 01/15/20 9:51:00 EDT, Route to Pharmacy Electronically, [facility]/pharmacy #[id number], 184, cm, 01/15/20 9:11:00 EDT, Height, 123.27, kg, 06/25/19 13:22:00 EST, Dry Weight Start Date: 01/15/20 Stop Date: 03/15/20 Status: Ordered aspirin 81 mg oral tablet 1 tablet = 81 mg, By Mouth, Daily, # 90 tablet, 3 Refills, Maintenance, 01/15/20 9:51:00 EDT, Tablet, [facility]/pharmacy #[id number], 184, cm, 01/15/20 [...] 02/07/20 9:49:00 EDT, Route to Pharmacy Electronically, [facility]/pharmacy #[id number], 184, cm, 01/29/20 [...] 08/17/20 13:12:00 EST, Route to Pharmacy Electronically, [facility]/pharmacy #[id number], 184, cm, 02/28/20 [...] 3 Refills, Maintenance, 01/15/20 9:51:00 EDT, Tablet, [facility]/pharmacy #[id number], 184, cm, 01/15/20 9:11:00 EDT, Height, 123.27, kg, 06/25/19 13:22:00 EST, Dry Weight Start Date: 01/15/20 Stop Date: 03/15/20 Status: Ordered fluticasone 50 mcg/inh nasal spray See Instructions, USE 1 SPRAY IN EACH NOSTRIL EVERY MORNING, # 16 mL, 0 Refills, Maintenance, [facility], 30, USE 1 SPRAY IN EACH NOSTRIL [...] 2 Refills, Maintenance, 01/27/20 10:39:00 EDT, Capsule, [facility]/pharmacy #[id number], 184, cm, 01/15/20 9:52:00 EDT, Height, 123.27, kg, 06/25/19 13:22:00 EST, Dry Weight Start Date: 01/27/20 Stop Date: 07/25/20 Status: Ordered metFORMIN 500 mg oral tablet 1 tablet = 500 mg, By Mouth, Daily, with meals, # 90 tablet, 11 Refills, Maintenance, 03/02/20 9:56:00 EDT, Tablet, [facility]/pharmacy #[id number], 184, cm, 02/28/20 15:58:00 EDT, Height, 123.27, kg, 06/25/19 13:22:00 EST, Dry Weight Start Date: 03/02/20 Status: Ordered omeprazole 20 mg oral enteric coated capsule 1 capsule = 20 mg, By Mouth, Daily, # 30 capsule, 2 Refills, Maintenance, 02/06/20 16:40:00 EDT, ECCapsule, [facility]/pharmacy #[id number], 184, cm, 01/29/20 [...] increased discomfort related to nerves. 3Seeing [place] neurology and sleep. Given a trial of Tegretol 200 mg upto 2 tablets twice a day andadvised to continue with Lyrica 300 mg twice a day. Had some improvement of the facial pain with this regimen. 4Seeing [place] neurology and asleep. On 09/11/2018 started on [...]
--- OUTSIDE RECORDS SUMMARY | 2023-11-02 08:28 | XMS_ITS | Continuity of Care Document ---
Author Organization [facility] Address [address] [place] [address]- Care Team Providers Care Pharmacy Manager Name Role Phone Terence PRATHER, Azra Primary Care Physician [phone] Encounter [facility] Date(s): 05/13/20 - 06/12/[address] [address]- Allergies, Adverse Reactions, Alerts Substance Reaction Severity [...] 01/15/20 9:51:00 EDT, Route to Pharmacy Electronically, [facility]/pharmacy #[id number], 184, cm, 01/15/20 9:11:00 EDT, Height, 123.27, kg, 06/25/19 13:22:00 EST, Dry Weight Start Date: 01/15/20 Stop Date: 03/15/20 Status: Ordered aspirin 81 mg oral tablet 1 tablet = 81 mg, By Mouth, Daily, # 90 tablet, 3 Refills, Maintenance, 01/15/20 9:51:00 EDT, Tablet, [facility]/pharmacy #[id number], 184, cm, 01/15/20 9:11:00 [...] 02/07/20 9:49:00 EDT, Route to Pharmacy Electronically, [facility]/pharmacy #[id number], 184, cm, 01/29/20 14:16:00 [...] 08/17/20 13:12:00 EST, Route to Pharmacy Electronically, [facility]/pharmacy #[id number], 184, cm, 02/28/20 15:58:00 [...] 3 Refills, Maintenance, 01/15/20 9:51:00 EDT, Tablet, [facility]/pharmacy #[id number], 184, cm, 01/15/20 9:11:00 EDT, Height, 123.27, kg, 06/25/19 13:22:00 EST, Dry Weight Start Date: 01/15/20 Stop Date: 03/15/20 Status: Ordered fluticasone 50 mcg/inh nasal spray See Instructions, USE 1 SPRAY IN EACH NOSTRIL EVERY MORNING, # 16 mL, 0 Refills, Maintenance, [facility], 30, USE 1 SPRAY IN EACH NOSTRIL [...] provided increased discomfort related to nerves. 3Seeing [place] neurology and sleep. Given a trial of Tegretol 200 mg upto 2 tablets twice a day andadvised to continue with Lyrica 300 mg twice a day. Had some improvement of the facial pain with this regimen. 4Seeing [place] neurology and asleep. On 09/11/2018 started on [...]
--- OUTSIDE RECORDS SUMMARY | 2023-11-02 08:28 | XMS_ITS | Continuity of Care Document ---
Author Organization [facility] Address [address] [place] [address]- Care Team Providers Care Pre K Special Education Teacher Name Role Phone Contractor Krystal FERNANDEZ Primary Care Physician [place] [facility] [place] - 01/30/[address] [address] Allergies, Adverse Reactions, Alerts Substance Reaction [...] 10/30/20 15:08:00 EDT, Route to Pharmacy Electronically, [facility]/pharmacy #[id number], 184, cm, 10/30/20 14:15:00 [...] 3 Refills, Maintenance, 01/15/20 9:51:00 EDT, Tablet, [facility]/pharmacy #[id number], 184, cm, 01/15/20 9:11:00 [...] length 99 months Please send to [facility], 01/21/21 13:20:00 EDT, Supply Start Date: 01/21/21 Status: Ordered Claritin 10 mg oral tablet 10 mg, 1, tablet, By Mouth, Daily, # 30 tablet, Refills 3, Tot. Refills 3, Maintenance, 01/29/21 9:13:00 EDT, Route to Pharmacy Electronically, [facility]/pharmacy #[id number], 184, cm, 01/29/21 9:06:00 [...] 08/17/20 13:12:00 EST, Route to Pharmacy Electronically, [facility]/pharmacy #[id number], 184, cm, 02/28/20 15:58:00 EDT, Height, 123.27,... Start Date: 08/17/20 Stop Date: 08/02/23 Status: Ordered cyanocobalamin 1000 mcg oral tablet 1,000 mcg, 1, tablet, By Mouth, Daily, # 90 tablet, Refills 11, Tot. Refills 11, Maintenance, 08/02/23 13:12:00 EST, Route to Pharmacy Electronically, [facility]/pharmacy #[id number], 184, cm, 01/01/21 10:56:00 [...] 3 Refills, Maintenance, 01/01/21 11:24:00 EDT, Tablet, [facility]/pharmacy #[id number], 184, cm, 01/01/21 10:56:00 EDT, Height, 123.27, kg, 06/25/19 13:22:00 EST, Dry Weight Start Date: 01/01/21 Status: Ordered docusate sodium 100 mg oral tablet 1 tablet = 100 mg, By Mouth, 2 times a day, PRN for constipation, # 60 tablet, 5 Refills, Maintenance, 01/11/21 15:23:00 EDT, Tablet, [facility]/pharmacy #[id number], Partial fill upon patient request if the prescription is for a schedule II opioid drug., 184, cm,... Start Date: 01/11/21 Status: Ordered fluticasone 50 mcg/inh nasal spray See Instructions, USE 1 SPRAY IN EACH NOSTRIL EVERY MORNING, # 16 mL, 3 Refills, 01/29/21 9:11:00 EDT, [facility]/pharmacy #[id number], 30, USE 1 SPRAY [...] Mild, # 100 Gm, 2 Refills, Maintenance, 01/29/21 9:29:00 EDT, Ointment, [id number], Partial fill upon patient request if the prescription is for a schedule II opioid drug., 1 application Topi... Start Date: 01/29/21 Status: Ordered metFORMIN 500 mg oral tablet [...] EDT, Supply Start Date: 01/21/21 Status: Ordered traMADol 50 mg oral tablet [...] increased discomfort related to nerves. 3Seeing [place] neurology and sleep. Given a trial of Tegretol 200 mg upto 2 tablets twice a day andadvised to continue with Lyrica 300 mg twice a day. Had some improvement of the facial pain with this regimen. 4Seeing [place] neurology and asleep. On 09/11/2018 started on [...]
--- OUTSIDE RECORDS SUMMARY | 2023-11-02 08:28 | XMS_ITS | Continuity of Care Document ---
Author Organization [facility] Address [address] [place] [address]- Care Team Providers Care Professor Of Surgery Name Role Phone Terence PRATHER, Azra Primary Care Physician [place] [facility]/10[place] - 12/10/[address] [address] Allergies, Adverse Reactions, Alerts Substance [...] 01/27/21 8:00:00 EDT, 11/27/20 10:53:00 EDT, [id number] up... Start Date: 11/27/20 Stop Date: 01/27/21 Status: Ordered amLODIPine 10 mg oral tablet 10 mg, 1, tablet, By Mouth, Daily, # 90 tablet, Refills 3, Tot. Refills 3, Maintenance, 10/30/20 15:08:00 EDT, [facility]ically[id number], 184, cm, 10/30/20 14:15:00 EDT, Height, 123.27, kg, 06/25/19 13:22:00 EST, Dry Weight Start Date: 10/30/20 Status: Ordered aspirin 81 mg oral tablet 1 tablet = 81 mg, By Mouth, Daily, # 90 tablet, 3 Refills, Maintenance, 01/15/20 9:51:00 EDT, Tablet, [id number], 184, cm, 01/15/20 9:11:00 EDT, [...] 02/07/20 9:49:00 EDT, Route to Pharmacy Electronically, [facility]/pharmacy #[id number], 184, cm, 01/29/20 14:16:00 EDT, [...] 08/17/20 13:12:00 EST, Route to Pharmacy Electronically, [facility]/pharmacy #[id number], 184, cm, 02/28/20 15:58:00 EDT, [...] 1 Refills, Maintenance, 12/03/20 16:21:00 EDT, Gel, [facility]/pharmacy #[id number], Partial fill upon patient request [...] MORNING, # 16 mL, 0 Refills, Maintenance, [facility], 30, USE 1 SPRAY IN EACH NOSTRIL [...] Refills, Maintenance, 11/11/20 9:35:00 EDT, Tablet, [id number], Partial fill upon patient request if the [...] provided increased discomfort related to nerves. 3Seeing [place] neurology and sleep. Given a trial of Tegretol 200 mg upto 2 tablets twice a day andadvised to continue with Lyrica 300 mg twice a day. Had some improvement of the facial pain with this regimen. 4Seeing [place] neurology and asleep. On 09/11/2018 started on [...]
--- OUTSIDE RECORDS SUMMARY | 2023-11-02 08:28 | XMS_ITS | Continuity of Care Document ---
Author Organization [facility] Address [address] [place] [address]- Care Team Providers Care Separator Inserter Name Role Phone Dayo Castano MD Primary Care Physician Encounter [facility] Date(s): 09/12/23 - 10/12/[address] [address]- Allergies, Adverse Reactions, Alerts Substance Reaction Severity [...] influenza virus vaccine, inactivated 04/16/15 Give n [id number] 12y+ bivalent booster vax 02/21/23 Given SARS-CoV-2 (COVID-19) mRNA BNT-162b2 vac 1 06/01/21 Given SARS-CoV-2 (COVID-19) mRNA BNT-162b2 vac 11/07/20 Recorded SARS-CoV-2 (COVID-19) mRNA BNT-162b2 vac 10/17/20 Recorded zoster vaccine, inactivated 06/18/19 Recorded zoster vaccine, inactivated 06/17/19 Recorded zoster vaccine, inactivated 11/25/17 Recorded Influenza Vaccine (oldterm) 02/17/17 Recorded pneumococcal 23-valent vaccine 02/16/16 Given tetanus/diphtheria/pertussis, acel(Tdap) 11/25/14 Given 1Result Comment: DILUENT LOT#: [id number] EXP: 11/2022 MFG: FRESENSIUS Medications Albuterol (Eqv-ProAir [...] bedtime, Rx'd by neurology ([facility]), # 30 tablet, 0 Refills, Maintenance, [...] Need length 99 months Please send to [facility], 01/21/21 13:20:00 EDT, Supply Start Date: 01/21/21 Status: Ordered carbidopa-levodopa 25 mg-100 mg oral tablet 1 tablet, By Mouth, 2 times a day, Rx'd by neurology at [facility], # 60 tablet, 0 Refills, [...] 04/04/23 8:45:00 EDT, Route to Pharmacy Electronically, [facility]/pharmacy #[id number], Partial fill upon patient request if the [...] EDT, Supply Start Date: 01/27/21 Status: Ordered [facility] Advanced He[facility] Ointment 41% [facility] [...] Gm, 5 Refills, Maintenance, 07/04/23 8:59:00 EST, [facility]/pharmacy #[id number], 30, APPLY TOPICALLY TO AFFECTED [...] Daily at bedtime, Rx'd by neurology at [facility], 0 Refills, Maintenance, 10/04/22 8:24:00 EDT, Capsule, Partial fill upon patient request if the prescription is for a schedule II opioid drug. Start Date: 10/04/22 Status: Ordered loratadine 10 mg oral tablet 1, tablet, By Mouth, Daily, PRN, # 90 tablet, Refills 3, Tot. Refills 3, NEEDED FOR ALLERGIES, 04/04/23 8:42:00 EDT, Route to Pharmacy Electronically, [facility]/pharmacy #[id number], 183, cm, 04/04/23 8:24:00EDT, Height, 123.2, kg, 02/07/22 12:47:00 EDT, Dry... Start Date: 04/04/23 Status: Ordered Metamucil 3.4 gm/5.2 gm oral powder for reconstitution = 3.4 Gm, By Mouth, 3 times a day, PRN as needed for constipation, # 425 Gm, 11 Refills, Maintenance, 08/07/23 14:34:00 EST, REC Powder, [facility]/pharmacy #[id number], Partial fill upon patient request if the prescription is for a schedule II opioid drug., 183,... Start Date: 08/07/23 Status: Ordered metFORMIN 500 mg oral tablet 2 tablet, By Mouth, 2 times a day, FOR DIABETES., # 360 tablet, 3 Refills, Maintenance, 09/25/23 15:02:00 EDT, [facility] 164[facility], 183, cm, 08/22/23 13:24:00 EST, Height, 123.2, kg, 02/07/22 12:47:00 EDT, Dry Weight Start Date: 09/25/23 Status: Ordered mirtazapine 7.5 mg oral tablet [...] SMOKING CESSATION, # 40 gum, 0 Refills, [facility] 43193, 184, cm, 12/27/21 11:50:00 EDT, Height Start [...] Stop 03/29/24 8:46:00 EDT, 04/04/23 8:46:00 EDT, [facility]/pharmacy #[id number], 1 capsule By Mouth 2 times a day,x90 days, 183, cm, 04/04/23 8:24:00 EDT, Height, 123.2, kg, 01/18... Start Date: 04/04/23 Stop Date: 03/29/24 Status: Ordered omeprazole 20 mg oral enteric coated capsule 1 capsule, By Mouth, Daily, # 90 capsule, 3 Refills, Maintenance, 04/04/23 8:46:00 EDT, [facility]/pharmacy #[id number], 183, cm, 04/04/23 8:24:00 EDT, [...] Gm, 1 Refills, Maintenance, 04/04/23 8:46:00 EDT, [facility]/pharmacy #[id number], 14,DISSOLVE 17 GRAMS IN WATER & DRINK ONCE A DAY UNTIL BM,... Start Date: 04/04/23 Status: Ordered pregabalin 300 mg oral capsule 1 capsule = 300 mg, By Mouth, 2 times a day, Rx'd by neurology at [facility], # 60 capsule, 0 Refills, Maintenance, 10/04/22 8:24:00 EDT, Capsule, Partial fill upon patient request if the prescription is for a schedule II opioid drug. Start Date: 10/04/22 Status: Ordered primidone 50 mg oral tablet 100 mg, 2, tablet, By Mouth, 2 times a day, rx'd by neurology at [facility], # 120 tablet, Refills 0, Maintenance, [...] times a day, Rx'd by neurology at [facility] Alisa Laz[facility], # 270 tablet, 0 [...] send to [facility], 08/08/22 15:41:00 EST, Supply Start [...] 14:39:00 EST, Aerosol, Route to Pharmacy Electronically, [id number], [facility]/pharmacy #[id number], 183, cm, 08/07/23 14:26:00 EST, [...] 11 Refills, Maintenance, 04/04/23 8:43:00 EDT, Tablet, [facility]/pharmacy #[id number], Partial fill upon patient request if theprescription is for a schedule II opioid drug., 183... Start Date: 04/04/23 Status: Ordered valsartan 320 mg oral tablet 1 tablet, By Mouth, Daily, blood pressure, # 90 tablet, 3 Refills, Maintenance, 04/04/23 8:46:00 EDT, [facility]/pharmacy #[id number], 183, cm, 04/04/23 8:24:00 EDT, Height, 123.2, kg, 02/07/22 12:47:00 EDT, Dry Weight Start Date: 04/04/23 Status: Ordered Vitamin B-12 1000 mcg oral tablet 1, tablet, By Mouth, Daily, # 90 tablet, Refills 1, Maintenance, 08/28/23 13:12:00 EDT, Route to Pharmacy Electronically, [facility] 737[facility], 183, cm, 08/22/23 13:24:00 EST, Height, 123.2, kg, 02/07/22 12:47:00 EDT, Dry Weight Start Date: 08/28/23 Status: Ordered Xopenex HFA 45 mcg/inh inhalation aerosol 2 puffs, Inhalation, Every 4 hours, PRN Wheezing/Shortness of Breath, replaces Ventolin due to reaction, # 1 each, 1 Refills, Maintenance, 02/15/23 11:23:00 EDT, Aerosol, [facility], Partial fill upon patient request if the [...] provided increased discomfort related to nerves. 3Seeing [place] neurology and sleep. Given a trial of [...] Care Team Personnel Name: Olimpia Parker Position: [facility] Office Staff Member Role: Lifetime Consulting Physician Name: Dayo Castano MD Position: [facility] Physician - Primary Care Member Role: PCP Address: Address: [address] [place] [id number] [place] Care Team Related Persons Name: JARROD BRADFORD Address: home [address] [place] [address] Name: LOLA BRADFORD Address: home [address] [place] [address] Name: GOLDIE LERMA Address: [place] [address] Name: OLIMPIA LERMA Address: [place] [address] Name: KADE LERMA Address: home [address] [place] [id number] Name: KADE LERMA Address: home [address] [place] [id number]
--- OUTSIDE RECORDS SUMMARY | 2023-11-02 08:28 | XMS_ITS | Continuity of Care Document ---
Author Organization [facility] Address [address] [place] [address]- Care Team Providers Care Relations Mgr Name Role Phone Sesar Perdue Primary Care Physician ( [phone] Encounter [facility] Date(s): 01/23/20 - 02/22/20 [facility] [address] [place] [address]- [facility] Allergies, Adverse Reactions, Alerts Substance Reaction [...] 01/15/20 9:49:00 EDT, Route to Pharmacy Electronically, [facility]/pharmacy #[id number] Tablet, 184, cm, 01/15/20 9:11... Start Date: 01/15/20 Stop Date: 02/14/20 Status: Ordered amLODIPine 10 mg oral tablet 10 mg, 1, tablet, By Mouth, Daily, # 90 tablet, Refills 3, Tot. Refills 3, Maintenance, 01/15/20 9:51:00 EDT, Route to Pharmacy Electronically, [facility]/pharmacy #[id number], 184, cm, 01/15/20 9:11:00 EDT, Height, 123.27, kg, 06/25/19 13:22:00 EST, Dry Weight Start Date: 01/15/20 Stop Date: 03/15/20 Status: Ordered aspirin 81 mg oral tablet 1 tablet = 81 mg, By Mouth, Daily, # 90 tablet, 3 Refills, Maintenance, 01/15/20 9:51:00 EDT, Tablet, [facility]/pharmacy #[id number], 184, cm, 01/15/20 9:11:00 [...] 02/07/20 9:49:00 EDT, Route to Pharmacy Electronically, [facility]/pharmacy #[id number], 184, cm, 01/29/20 14:16:00 [...] 3 Refills, Maintenance, 01/15/20 9:51:00 EDT, Tablet, [facility]/pharmacy #[id number], 184, cm, 01/15/20 9:11:00 EDT, Height, 123.27, kg, 06/25/19 13:22:00 EST, Dry Weight Start Date: 01/15/20 Stop Date: 03/15/20 Status: Ordered fluticasone 50 mcg/inh nasal spray See Instructions, USE 1 SPRAY IN EACH NOSTRIL EVERY MORNING, # 16 mL, 0 Refills, Maintenance, [facility], 30, USE 1 SPRAY IN EACH NOSTRIL [...] 3 Refills, Maintenance, 01/15/20 9:51:00 EDT, Tablet, [facility]/pharmacy #[id number], 184, cm, 01/15/20 9:11:00 EDT, Height, 123.27, kg, 06/25/19 13:22:00 EST, Dry Weight Start Date: 01/15/20 Stop Date: 03/15/20 Status: Ordered traMADol 50 mg oral tablet 1 tablet = 50 mg, By Mouth, Every 8 hours, PRN Pain , Moderate, for 7 days, # 21 tablet, 0 Refills,Acute 02/27/20 10:43:00 EDT, 02/20/20 10:43:00 EDT, [facility]/pharmacy #[id number], 184, cm, 01/29/20 14:16:00 [...] provided increased discomfort related to nerves. 3Seeing [place] neurology and sleep. Given a trial of Tegretol 200 mg upto 2 tablets twice a day andadvised to continue with Lyrica 300 mg twice a day. Had some improvement of the facial pain with this regimen. 4Seeing [place] neurology and asleep. On 09/11/2018 started [...]
--- OUTSIDE RECORDS SUMMARY | 2023-11-02 08:28 | XMS_ITS | Continuity of Care Document ---
Author Organization [facility] Address [address] [place] [address]- Care Team Providers Care Transportation Maintenance Specialist Name Role Phone Dayo Castano MD Primary Care Physician Encounter [facility] [place] Date(s): 05/19/23 - 06/18/[address] [address]- Allergies, Adverse Reactions, Alerts Substance Reaction Severity [...] influenza virus vaccine, inactivated 04/16/15 Give n [id number] 12y+ bivalent booster vax 02/21/23 Given SARS-CoV-2 (COVID-19) mRNA BNT-162b2 vac 1 06/01/21 Given SARS-CoV-2 (COVID-19) mRNA BNT-162b2 vac 11/07/20 Recorded SARS-CoV-2 (COVID-19) mRNA BNT-162b2 vac 10/17/20 Recorded zoster vaccine, inactivated 06/18/19 Recorded zoster vaccine, inactivated 06/17/19 Recorded zoster vaccine, inactivated 11/25/17 Recorded Influenza Vaccine (oldterm) 02/17/17 Recorded pneumococcal 23-valent vaccine 02/16/16 Given tetanus/diphtheria/pertussis, acel(Tdap) 11/25/14 Given 1Result Comment: DILUENT LOT#: [id number] EXP: 11/2022 MFG: FRESENSIUS Medications Albuterol (Eqv-ProAir [...] at bedtime, Rx'd by neurology ([facility]), # 30 tablet, 0 Refills, Maintenance, [...] 3 Refills, Maintenance, 04/04/23 8:44:00 EDT, Tablet, [facility]/pharmacy #[id number], Partial fill upon patient [...] Need length 99 months Please send to [facility], 01/21/21 13:20:00 EDT, Supply Start Date: 01/21/21 Status: Ordered carbidopa-levodopa 25 mg-100 mg oral tablet 1 tablet, By Mouth, 2 times a day, Rx'd by neurology at [facility], # 60 tablet, 0 Refills, Maintenance, [...] 8:45:00 EDT, Route to Pharmacy Electronically, [facility]/pharmacy #[id number], Partial fill upon patient [...] 8:46:00 EDT, Route to Pharmacy Electronically, [facility]/pharmacy #[id number], 183, cm, 04/04/23 8:24:00 [...] 5 Refills, Maintenance, 01/26/23 9:21:00 EDT, [facility]/pharmacy #[id number], 30, APPLY TOPICALLY TO AFFECTED ARE TWICEA DAY NEEDED FOR PAIN, 183, cm, 01/26/23 9:04:00... Start Date: 01/26/23 Status: Ordered diclofenac sodium 75 mg oral delayed release tablet 1 tablet = 75 mg, By Mouth, 2 times a day, PRN Pain , Severe, STOP DICLOFENAC GEL, # 60 tablet, 0 Refills, Maintenance, 05/19/23 12:59:00 EST, EC Tablet, [facility]/pharmacy #[id number], Partial fill upon patientrequest if [...] Refills, Maintenance, 05/05/23 9:15:00 EST, Tablet, [facility]/pharmacy #[id number], Partial fill upon patient [...] at bedtime, Rx'd by neurology at [facility], 0 Refills, Maintenance, 10/04/22 8:24:00 EDT, Capsule, Partial fill upon patient request if the prescription is for a schedule II opioid drug. Start Date: 10/04/22 Status: Ordered loratadine 10 mg oral tablet 1, tablet, By Mouth, Daily, PRN, # 90 tablet, Refills 3, Tot. Refills 3, NEEDED FOR ALLERGIES, 04/04/23 8:42:00 EDT, Route to Pharmacy Electronically, [facility]/pharmacy #[id number], 183, cm, 04/04/23 8:24:00EDT, [...] CESSATION, # 40 gum, 0 Refills, [facility] STORE 54699, 184, cm, 12/27/21 11:50:00 EDT, Height Start [...] 03/29/24 8:46:00 EDT, 04/04/23 8:46:00 EDT, [facility]/pharmacy #[id number], 1 capsule By Mouth 2 times a day,x90 days, 183, cm, 04/04/23 8:24:00 EDT, Height, 123.2, kg, 01/18... Start Date: 04/04/23 Stop Date: 03/29/24 Status: Ordered omeprazole 20 mg oral enteric coated capsule 1 capsule, By Mouth, Daily, # 90 capsule, 3 Refills, Maintenance, 04/04/23 8:46:00 EDT, [facility]/pharmacy #[id number], 183, cm, 04/04/23 8:24:00 [...] a day, Rx'd by neurology at [facility], # 60 capsule, 0 Refills, Maintenance, 10/04/22 8:24:00 EDT, Capsule, Partial fill upon patient request if the prescription is for a schedule II opioid drug. Start Date: 10/04/22 Status: Ordered primidone 50 mg oral tablet 100 mg, 2, tablet, By Mouth, 2 times a day, rx'd by neurology at [facility], # 120 tablet, Refills 0, Maintenance, [...] a day, Rx'd by neurology at [facility], # 270 tablet, 0 Refills, Maintenance, [...] Maintenance, DX: M51. 26 please send to [facility], 08/08/22 15:41:00 EST, Supply Start Date: 08/08/22 Status: Ordered Symbicort 160mcg/4.5mcg Inhaler 2, puffs, Inhalation, 2 times a day, # 6 Gm, Refills 11, Tot. Refills 11, Maintenance, 04/04/23 8:44:00 EDT, Aerosol, Route to Pharmacy Electronically, [id number], [facility]/pharmacy #[id number], 183, cm, 04/04/23 8:24:00 [...] Refills, Maintenance, 04/04/23 8:43:00 EDT, Tablet, [facility]/pharmacy #[id number], Partial fill upon patient [...] provided increased discomfort related to nerves. 3Seeing [place] neurology and sleep. Given a trial of [...] Care Team Personnel Name: Olimpia Parker Position: [facility] Office Staff Member Role: Lifetime Consulting Physician Name: Dayo Castano MD Position: [facility] Physician - Primary Care Member Role: PCP Address: Address: [address] [place] [address]- Care Team Related Persons Name: JARROD BRADFORD Address: home [address] [place] [address] Name: LOLA BRADFORD Address: home [address] [place] [address] Name: GOLDIE LERMA Address: [place] [address] Name: LERMA, OLIMPIA Address: [place] [address] Name: KADE LERMA Address: [address] [place] [address] Name: KADE LERMA Address: home [address] [place] [address]
--- OUTSIDE RECORDS SUMMARY | 2023-11-02 08:28 | XMS_ITS | Continuity of Care Document ---
Author Organization [facility] Address [address] [place] [address]- Care Team Providers Care Microwave Radio Technician Name Role Phone Contractor Krystal FERNANDEZ Primary Care Physician [place] [facility] [place]/03[place] - 09/04/[address] [address]- Attending Physician: Not on Staff, Attending MD [...] acel(Tdap) 11/25/14 Given 1Result Comment: DILUENT LOT#: [id number] EXP: 11/2022 MFG: FRESENSIUS Medications amitriptyline 100 mg oral tablet 1 tablet = 100 mg, By Mouth, Daily at bedtime, # 30 tablet, 3 Refills, Maintenance, 08/11/21 10:02:00 EST, Tablet, [facility]/pharmacy #[id number], Partial [...] 3 Refills, Maintenance, 03/03/21 17:24:00 EDT, Tablet, [facility]/pharmacy #[id number], Partial fill upo... Start Date: [...] Need length 99 months Please send to [facility], 01/21/21 13:20:00 EDT, Supply Start Date: 01/21/21 Status: Ordered carbidopa-levodopa 25 mg-100 mg oral tablet 1 tablet, By Mouth, 3 times a day, Rx'd by Neurology at [facility] Alisa Lazaro/ Dr. Murphy, # 270 tablet, 0 Refills, Maintenance, 04/15/21 23:30:00 EDT, Tablet, Partial fill upon patient request if the prescription is for a schedule II opioid drug. Start Date: 04/15/21 Status: Ordered chlorthalidone 25 mg oral tablet 1, tablet, By Mouth, Daily, # 30 tablet, Refills 5, Route to Pharmacy Electronically, [facility] 701[facility], 184, cm, 03/30/21 16:08:00 EDT, Height, 123.27, kg, 06/25/19 13:22:00 EST, Dry Weight Start Date: 04/07/21 Status: Ordered Claritin 10 mg oral tablet 10 mg, 1, tablet, By Mouth, Daily, more sea necesario para alergia, # 30 tablet, Refills 5, Tot. Refills 5, Maintenance, 04/13/21 10:04:00 EDT, Route to Pharmacy Electronically, [facility]/pharmacy #[id number], 184, cm, 04/13/21 9:26:00 EDT, Height, 123.27, kg, 01... Start Date: 04/13/21 Status: Ordered clonazePAM 2 mg oral tablet See Instructions, 1 tablet by mouth only NEEDED for severe panic attack. Dispense: #20 tabs per 20d., # 20 tablet, 0 Refills, Maintenance, 08/18/21 15:21:00 EST, Tablet, [facility]/pharmacy #[id number], Partial [...] 0 Refills, Maintenance, 03/03/21 17:36:00 EDT, Cream, [facility]/pharmacy #[id number], Partial [...] [facility]pharmacy #[id number], 184, cm, 07/26/21 9:11:00 EST, [...] 3 Refills, Maintenance, 07/13/21 12:26:00 EST, Tablet, [facility]/pharmacy #[id number], d/c citalopram 10 mg, 184, [...] 2 Refills, Maintenance, 02/10/21 13:09:00 EDT, Ointment, [facility]/pharmacy #[id number], Partial fill upon patient request if the prescription is for a schedule II opioid drug., 1 application Top... Start Date: 02/10/21 Status: Ordered magnesium oxide 400 mg oral tablet 1 tablet = 400 mg, By Mouth, Daily, Rx'd by Neurology at [facility]/ Dr. Murphy, 0 Refills, Maintenance, 04/15/21 23:30:00 [...] 3 Refills, Maintenance, 03/03/21 17:29:00 EDT, Tablet, [facility]/pharmacy #[id number], Partial fill upon p... Start Date: 03/03/21 Status: Ordered omega-3 polyunsaturated fatty acids ethyl esters 1000 mg oral capsule 1 capsule = 1,000 mg, By Mouth, 2 times a day, # 60 capsule, 11 Refills, Maintenance, 12/27/21 11:25:00 EDT, Capsule, [facility]/pharmacy [...] 12/27/21 11:25:00 EDT, 01/01/21 11:25:00 EDT, Capsule, [facility]/pharmacy #[id number], 184, cm, 01/01/21 10:56:00 EDT, Height, 123.27, kg, 06/25/19 13:22:00 EST, Dry W... Start Date: 01/01/21 Stop Date: 12/27/21 Status: Ordered omeprazole 20 mg oral enteric coated capsule 1 capsule, By Mouth, Daily, # 90 capsule, 0 Refills, [facility], 184, cm, 06/14/21 11:01:00 EST, Height, 123.27, kg, 06/25/19 13:22:00 EST, Dry Weight Start Date: 06/23/21 Status: Ordered pregabalin 300 mg oral capsule 1 capsule = 300 mg, By Mouth, 2 times a day, PRN pain, one tab twice daily prn pain, # 60 capsule, 0 Refills, Maintenance, 06/29/21 15:41:00 EST, Capsule, [facility]/pharmacy #[id number], Partial fill upon patient request if the prescription is for a schedule II o... Start Date: 06/29/21 Stop Date: 07/29/21 Status: Ordered Shower Chair See Instructions, # 1 each, Refills 0, Tot. Refills 0, Maintenance, DX: M51. 26 please send to [facility], 01/21/21 13:20:00 EDT, Supply Start Date: 01/21/21 Status: Ordered sulindac 150 mg oral tablet See Instructions, TAKE 1 TABLET BY MOUTH TWICE A DAY NEEDED FOR PAIN, # 28 tablet, 0 Refills, Maintenance, [facility], 184, cm, 02/01/21 10:51:00 EDT, Height, 123.27, kg, 06/25/19 13:22:00 EST, Dry Weight Start Date: 02/01/21 Status: Ordered Tylenol Extra Strength 500 mg oral tablet 2 tablet = 1,000 mg, By Mouth, 3 times a day, PRN as needed for pain, # 100 tablet, 5 Refills, Maintenance, 07/26/21 9:43:00 EST, Tablet, [facility]/pharmacy #[id number], Partial fill upon patient request if the [...]
--- OUTSIDE RECORDS SUMMARY | 2023-11-02 08:28 | XMS_ITS | Continuity of Care Document ---
Author Organization [facility] Address [address] [place] [id number]- Care Team Providers Care Telegraphic Typewriter Mechanic Name Role Phone Terence PRATHER, Azra Primary Care Physician Encounter [facility] [place] Date(s): 02/20/20 - 03/21/20 [facility] [address] [place] [address]- [facility] Allergies, Adverse Reactions, Alerts Substance Reaction [...] 01/15/20 9:51:00 EDT, Route to Pharmacy Electronically, [facility]/pharmacy #[id number], 184, cm, 01/15/20 9:11:00 EDT, Height, 123.27, kg, 06/25/19 13:22:00 EST, Dry Weight Start Date: 01/15/20 Stop Date: 03/15/20 Status: Ordered aspirin 81 mg oral tablet 1 tablet = 81 mg, By Mouth, Daily, # 90 tablet, 3 Refills, Maintenance, 01/15/20 9:51:00 EDT, Tablet, [facility]/pharmacy #[id number], 184, cm, 01/15/20 9:11:00 EDT, Height, [...] EDT, Route to Pharmacy Electronically, [facility]/pharmacy #[id number], 184, cm, 01/29/20 14:16:00 EDT, Height, [...] EST, Route to Pharmacy Electronically, [facility]/pharmacy #[id number], 184, cm, 02/28/20 15:58:00 EDT, Height, [...] Maintenance, 01/15/20 9:51:00 EDT, Tablet, [facility]/pharmacy #[id number], 184, cm, 01/15/20 9:11:00 EDT, Height, 123.27, kg, 06/25/19 13:22:00 EST, Dry Weight Start Date: 01/15/20 Stop Date: 03/15/20 Status: Ordered fluticasone 50 mcg/inh nasal spray See Instructions, USE 1 SPRAY IN EACH NOSTRIL EVERY MORNING, # 16 mL, 0 Refills, Maintenance, [facility] STORE 84530, 30, USE 1 SPRAY IN EACH NOSTRIL [...] provided increased discomfort related to nerves. 3Seeing [place] neurology and sleep. Given a trial of Tegretol 200 mg upto 2 tablets twice a day andadvised to continue with Lyrica 300 mg twice a day. Had some improvement of the facial pain with this regimen. 4Seeing [place] neurology and asleep. On 09/11/2018 started on [...]
--- OUTSIDE RECORDS SUMMARY | 2023-11-02 08:28 | XMS_ITS | Continuity of Care Document ---
Author Organization [facility] Address [address] [place] [address]- Care Team Providers Care Resident Care Aide Name Role Phone Contractor Krystal FERNANDEZ Primary Care Physician Encounter [facility] [place] Date(s): 04/06/21 - 05/07/[address] [address] Attending Physician: Not on Staff, Attending MD [...] 3 Refills, Maintenance, 04/13/21 10:02:00 EDT, Tablet, [facility]/pharmacy #[id number], Partial [...] Need length 99 months Please send to [facility], 01/21/21 13:20:00 EDT, Supply Start Date: 01/21/21 Status: Ordered carbidopa-levodopa 25 mg-100 mg oral tablet 1 tablet, By Mouth, 3 times a day, [facility]/ Dr. Murphy, # 270 tablet, 0 Refills, Maintenance, 04/15/21 23:30:00 EDT, Tablet, Partial fill upon patient request if the prescription is for a schedule II opioid drug. Start Date: 04/15/21 Status: Ordered chlorthalidone 25 mg oral tablet 1, tablet, By Mouth, Daily, # 30 tablet, Refills 5, Route to Pharmacy Electronically, [facility] STORE [id number], 184, cm, 03/30/21 16:08:00 EDT, Height, 123.27, kg, 06/25/19 13:22:00 EST, Dry Weight Start Date: 04/07/21 Status: Ordered Claritin 10 mg oral tablet 10 mg, 1, tablet, By Mouth, Daily, more sea necesario para alergia, # 30 tablet, Refills 5, Tot. Refills 5, Maintenance, 04/13/21 10:04:00 EDT, Route to Pharmacy Electronically, [facility]/pharmacy #[id number], 184, cm, 04/13/21 9:26:00 EDT, Height, 123.27, kg, 01... Start Date: 04/13/21 Status: Ordered clonazePAM 2 mg oral tablet 1 tablet = 2 mg, By Mouth, Daily, # 20 tablet, 0 Refills, Maintenance, 04/22/21 15:54:00 EDT, [id number], Partial fill upon patient request [...] 0 Refills, Maintenance, 03/03/21 17:36:00 EDT, Cream, [facility]/pharmacy #[id number], Partial fill upon [...] 5 Refills, Maintenance, 01/11/21 15:23:00 EDT, Tablet, [facility]/pharmacy #[id number], Partial fill upon patient request if the prescription is for a schedule II opioid drug., 184, cm,... Start Date: 01/11/21 Status: Ordered escitalopram 5 mg oral tablet 1 tablet = 5 mg, By Mouth, Daily, This is a decrease in dose, # 14 tablet, 0 Refills, Maintenance, 04/05/21 15:54:00 EDT, Tablet, [facility]/pharmacy #[id number], Partial fill upon patient request if the prescription is for a schedule II opioid drug., 184, cm, ... Start Date: 04/05/21 Stop Date: 04/19/21 Status: Ordered fluticasone 50 mcg/inh nasal spray See Instructions, USE 1 SPRAY IN EACH NOSTRIL EVERY MORNING, # 16 mL, 3 Refills, 01/29/21 9:11:00 EDT, [facility]/pharmacy #[id number], 30, USE 1 SPRAY IN EACH [...] 2 Refills, Maintenance, 02/10/21 13:09:00 EDT, Ointment, [facility]/pharmacy #[id number], Partial fill upon patient request if the prescription is for a schedule II opioid drug., 1 application Top... Start Date: 02/10/21 Status: Ordered magnesium oxide 400 mg oral tablet 1 tablet = 400 mg, By Mouth, Daily, Rx'd by Neurology at [facility]/ Dr. Murphy, 0 Refills, Maintenance, 04/15/21 [...] 3 Refills, Maintenance, 03/03/21 17:29:00 EDT, Tablet, [facility]/pharmacy #[id number], Partial fill upon p... Start Date: [...] Maintenance, DX: M51. 26 please send to [facility], 01/21/21 13:20:00 EDT, Supply Start Date: 01/21/21 Status: Ordered sulindac 150 mg oral tablet See Instructions, TAKE 1 TABLET BY MOUTH TWICE A DAY NEEDED FOR PAIN, # 28 tablet, 0 Refills, Maintenance, [facility], 184, cm, 02/01/21 10:51:00 EDT, Height, 123.27, [...] provided increased discomfort related to nerves. 3Seeing [place] neurology and sleep. Given a trial of Tegretol 200 mg upto 2 tablets twice a day andadvised to continue with Lyrica 300 mg twice a day. Had some improvement of the facial pain with this regimen. 4Seeing [place] neurology and asleep. On 09/11/2018 started on [...]
--- OUTSIDE RECORDS SUMMARY | 2023-11-02 08:28 | XMS_ITS | Continuity of Care Document ---
Author Organization [facility] Address [address] [place] [address]- Care Team Providers Care Director Investment Banking Name Role Phone Ivone Oneil MD Primary Care Physician Encounter [facility] Date(s): 08/04/22 - 09/24/[address] [address]- Attending Physician: Ivone Oneil MD Admitting Physician: [...] acel(Tdap) 11/25/14 Given 1Result Comment: DILUENT LOT#: [id number] EXP: 11/2022 MFG: FRESENSIUS Medications amitriptyline 100 mg oral tablet 1 tablet = 100 mg, By Mouth, Daily at bedtime, # 30 tablet, 3 Refills, Maintenance, 12/27/21 12:09:00 EDT, Tablet, [facility]/pharmacy #[id number], [...] 1 Refills, Maintenance, 05/13/22 14:40:00 EST, Tablet, [facility]/pharmacy #[id number], [...] Need length 99 months Please send to [place] [facility], 01/21/21 13:20:00 EDT, Supply Start Date: [...] 0 Refills, Maintenance, 08/18/21 15:21:00 EST, Tablet, [id number], Partial fill upon [...] 07/17/26 13:12:00 EST, Route to Pharmacy Electronically, [id number], 184, cm, 07/26/21 9:11:00 EST, Height Start Date: 07/17/26 Stop Date: 07/01/29 Status: Ordered cyanocobalamin 1000 mcg oral tablet 1,000 mcg, 1, tablet, By Mouth, Daily, for 90 days, # 90 tablet, Refills 11, Tot. Refills 11, Hard Stop 07/17/26 13:12:00 EST, 08/02/23 13:12:00 EST, Route to Pharmacy Electronically, [facility]/pharmacy #[id number], 184, cm, 01/01/21 10:56:00 EDT, Height, 123.27,... Start Date: 08/02/23 Stop Date: 07/17/26 Status: Ordered cyanocobalamin 1000 mcg oral tablet 1,000 mcg, 1, tablet, By Mouth, Daily, # 90 tablet, Refills 1, Tot. Refills 1, Maintenance, 07/01/29 13:12:00 EST, Route to Pharmacy Electronically, [facility]/pharmacy #[id number], 183, cm, 08/22/22 [...] Gm, 2 Refills, Maintenance, 07/28/22 8:54:00 EST, [facility] STORE 71041, 30, APPLY TOPICALLY TO AFFECTED ARE TWICE A DAY NEEDED FOR PAIN, 183, cm, 07/07/22 10:54:00 E... Start Date: 07/28/22 Status: Ordered empagliflozin 10 mg oral tablet 1 tablet = 10 mg, By Mouth, Daily in AM, # 30 tablet, 2 Refills, Maintenance, 08/23/22 8:44:00 EST,Tablet, [facility]/pharmacy #[id number], Partial fill upon patient request if the [...] 2 Refills, Maintenance, 08/23/22 8:44:00 EST, Tablet, [facility]/pharmacy #[id number], Label in estonian, cetrizine not effective, 1 tablet By Mouth Daily in AM, 183, cm, 08/22/22 8:28:00 EST, Height, 123.2, kg,... Start Date: 08/23/22 Status: Ordered loratadine 10 mg oral tablet 1, tablet, By Mouth, Daily, PRN, # 90 tablet, Refills 1, NEEDED FOR ALLERGIES, Route to PharmacyElectronically, [facility] STORE 05839, 184, cm, 10/18/21 13:37:00 EDT, Height Start [...] tablet, 3 Refills, Maintenance, 09/16/2211:15:00 EDT, Tablet, [facility]/pharmacy #[id number], Partial f... Start Date: 09/15/21 Status: Ordered Nicotine 2 mg gum See Instructions, CHEW 1 PIECE OF GUM EVERY 2 HOURS NEEDED FOR SMOKING CESSATION, # 40 gum, 0 Refills, [facility] STORE 98546, 184, cm, 12/27/21 11:50:00 EDT, Height Start [...] a day, # 180 capsule, 3 Refills, [facility] STORE 56718, 90, TAKE 1 CAPSULE BY MOUTH TWICE A DAY, 183, cm, 02/08/22 6:42:00 EDT, Height, 123.2, kg, 02/07/22 12:47:00 EDT, Dry Weight Start Date: 02/09/22 Status: Ordered omeprazole 20 mg oral enteric coated capsule 1 capsule, By Mouth, Daily, # 90 capsule, 0 Refills, Maintenance, 09/09/22 8:09:00 EDT, [facility]/pharmacy #[id number], 183, cm, 09/07/22 10:39:00 [...] Gm, 1 Refills, Maintenance, 08/31/22 9:06:00 EDT, [facility]/pharmacy #[id number], 14,DISSOLVE 17 GRAMS IN WATER & DRINK ONCE A DAY UNTIL BM,... Start Date: 08/31/22 Status: Ordered pregabalin 300 mg oral capsule 1 capsule = 300 mg, By Mouth, 2 times a day, PRN pain, one tab twice daily prn pain, # 60 capsule, 0 Refills, Maintenance, 06/29/21 15:41:00 EST, Capsule, [facility]/pharmacy #[id number], Partial fill upon patient request if the prescription is for a schedule II o... Start Date: 06/29/21 Stop Date: 07/29/21 Status: Ordered primidone 50 mg oral tablet 100 mg, 2, tablet, By Mouth, 3 times a day, Rx'd by Neurology at [facility] Alisa [facility]/ Dr. Murphy, Refills 0, Maintenance, 03/07/19 8:44:30 [...] 26 please send to [facility], 08/08/22 15:41:00 EST, Supply Start Date: 08/08/22 Status: Ordered Symbicort 160mcg/4.5mcg Inhaler 2, puffs, Inhalation, 2 times a day, # 6 Gm, Refills 0, Tot. Refills 0, Maintenance, 12/27/21 12:43:00 EDT, Aerosol, Route to Pharmacy Electronically, [id number], [facility]/pharmacy #[id number], 184, cm, 12/27/21 11:50:00 EDT, Height Start Date: 12/27/21 Status: Ordered Tylenol Extra Strength 500 mg oral tablet 2 tablet = 1,000 mg, By Mouth, 3 times a day, PRN as needed for pain, # 100 tablet, 5 Refills, Maintenance, 12/07/21 10:44:00 EDT, Tablet, [facility]/pharmacy #[id number], Partial fill upon patient request if theprescription is for a schedule II opioid drug., 184... Start Date: 12/07/21 Status: Ordered valsartan 320 mg oral tablet 1 tablet, By Mouth, Daily, # 90 tablet, 3 Refills, Maintenance, 03/15/22 14:29:00 EDT, [facility], 183, cm, 02/08/22 6:42:00 EDT, Height, 123.2, [...] provided increased discomfort related to nerves. 3Seeing [place] neurology and sleep. Given a trial of Tegretol 200 mg upto 2 tablets twice a day andadvised to continue with Lyrica 300 mg twice a day. Had some improvement of the facial pain with this regimen. 4Seeing [place] neurology and asleep. On 09/11/2018 started on [...] team information Care Team Personnel Name: Nilayneil Olimpia Position: [facility] JUAN Office Staff Member Role: Lifetime Consulting Physician Name: Ivone Oneil MD Position: [facility] Primary Care Physician Member Role: PCP Address: Address: [address] [place] [address]- Care Team Related Persons Name: JARROD BRADFORD Address: home [address] [place] [address] Name: LOLA BRADFORD Address: home [address] [place] [address] Name: GOLDIE LERMA Address: [place] [address] Name: OLIMPIA LERMA Address: [place] [address] Name: KADE LERMA Address: home [address] [place] [address] Name: KADE LERMA Address: home [address] [place] [address]
--- OUTSIDE RECORDS SUMMARY | 2023-11-02 08:28 | XMS_ITS | Continuity of Care Document ---
Author Organization [facility] Address [address] [place] [address]- Care Team Providers Care Client Experience Consultant Name Role Phone Dayo Castano MD [id number] 09[facility]24[facility]23 - 10/24/[address] [address]- Allergies, Adverse Reactions, Alerts Substance Reaction Severity [...] influenza virus vaccine, inactivated 04/16/15 Give n [id number] 12y+ bivalent booster vax 02/21/23 Given SARS-CoV-2 (COVID-19) mRNA BNT-162b2 vac 1 06/01/21 Given SARS-CoV-2 (COVID-19) mRNA BNT-162b2 vac 11/07/20 Recorded SARS-CoV-2 (COVID-19) mRNA BNT-162b2 vac 10/17/20 Recorded zoster vaccine, inactivated 06/18/19 Recorded zoster vaccine, inactivated 06/17/19 Recorded zoster vaccine, inactivated 11/25/17 Recorded Influenza Vaccine (oldterm) 02/17/17 Recorded pneumococcal 23-valent vaccine 02/16/16 Given tetanus/diphtheria/pertussis, acel(Tdap) 11/25/14 Given 1Result Comment: DILUENT LOT#: [id number] EXP: 11/2022 MFG: FRESENSIUS Medications Albuterol (Eqv-ProAir [...] Mouth, Daily at bedtime, Rx'd by neurology ([facility]), # 30 tablet, 0 Refills, Maintenance, [...] Need length 99 months Please send to [facility], 01/21/21 13:20:00 EDT, Supply Start Date: 01/21/21 Status: Ordered carbidopa-levodopa 25 mg-100 mg oral tablet 1 tablet, By Mouth, 2 times a day, Rx'd by neurology at [facility], # 60 tablet, 0 Refills, Maintenance, 10/04/22 8:23:00 EDT, Tablet, Partial fill upon patient request if the prescription is for a schedule II opioid drug. Start Date: 10/04/22 Status: Ordered chlorthalidone 25 mg oral tablet 25 mg, 1, tablet, By Mouth, Daily in AM, Blood pressure, # 90 tablet, Refills 3, Tot. Refills 3, Maintenance, 04/04/23 8:45:00 EDT, Route to Pharmacy Electronically, [facility]/pharmacy #[id number], Partial fill upon patient request if the [...] EDT, Supply Start Date: 01/27/21 Status: Ordered [facility] Advanced Healing Ointment 41% [facility] [...] Gm, 5 Refills, Maintenance, 07/04/23 8:59:00 EST, [facility]/pharmacy #[id number], 30, APPLY TOPICALLY [...] Daily at bedtime, Rx'd by neurology at [facility], 0 Refills, Maintenance, 10/04/22 8:24:00 EDT, Capsule, Partial fill upon patient request if the prescription is for a schedule II opioid drug. Start Date: 10/04/22 Status: Ordered loratadine 10 mg oral tablet 1, tablet, By Mouth, Daily, PRN, # 90 tablet, Refills 3, Tot. Refills 3, NEEDED FOR ALLERGIES, 04/04/23 8:42:00 EDT, Route to Pharmacy Electronically, [facility]/pharmacy #[id number], 183, cm, 04/04/23 8:24:00EDT, Height, 123.2, kg, 02/07/22 12:47:00 EDT, Dry... Start Date: 04/04/23 Status: Ordered Metamucil 3.4 gm/5.2 gm oral powder for reconstitution = 3.4 Gm, By Mouth, 3 times a day, PRN as needed for constipation, # 425 Gm, 11 Refills, Maintenance, 08/07/23 14:34:00 EST, REC Powder, [facility]/pharmacy #[id number], Partial fill upon patient request if the prescription is for a schedule II opioid drug., 183,... Start Date: 08/07/23 Status: Ordered metFORMIN 500 mg oral tablet 2 tablet, By Mouth, 2 times a day, FOR DIABETES., # 360 tablet, 3 Refills, Maintenance, 09/25/23 15:02:00 EDT, [facility] STORE 67608, 183, cm, 08/22/23 13:24:00 EST, Height, 123.2, [...] SMOKING CESSATION, # 40 gum, 0 Refills, [facility] STORE 77127, 184, cm, 12/27/21 11:50:00 EDT, Height Start [...] Stop 03/29/24 8:46:00 EDT, 04/04/23 8:46:00 EDT, [facility]/pharmacy #[id number], 1 capsule By Mouth 2 times a day,x90 days, 183, cm, 04/04/23 8:24:00 EDT, Height, 123.2, kg, 01/18... Start Date: 04/04/23 Stop Date: 03/29/24 Status: Ordered omeprazole 20 mg oral enteric coated capsule 1 capsule, By Mouth, Daily, # 90 capsule, 3 Refills, Maintenance, 04/04/23 8:46:00 EDT, [facility]/pharmacy #[id number], 183, cm, 04/04/23 [...] Gm, 1 Refills, Maintenance, 04/04/23 8:46:00 EDT, [facility]/pharmacy #[id number], 14,DISSOLVE 17 GRAMS IN WATER & DRINK ONCE A DAY UNTIL BM,... Start Date: 04/04/23 Status: Ordered pregabalin 300 mg oral capsule 1 capsule = 300 mg, By Mouth, 2 times a day, Rx'd by neurology at [facility], # 60 capsule, 0 Refills, Maintenance, 10/04/22 8:24:00 EDT, Capsule, Partial fill upon patient request if the prescription is for a schedule II opioid drug. Start Date: 10/04/22 Status: Ordered primidone 50 mg oral tablet 100 mg, 2, tablet, By Mouth, 2 times a day, rx'd by neurology at [facility], # 120 tablet, Refills 0, Maintenance, [...] times a day, Rx'd by neurology at [facility] Alisa L[facility], # 270 tablet, 0 [...] M51. 26 please send to [facility], 08/08/22 15:41:00 EST, Supply Start Date: 08/08/22 [...] 14:39:00 EST, Aerosol, Route to Pharmacy Electronically, [id number], [facility]/pharmacy #[id number], 183, cm, 08/07/23 14:26:00 EST, [...] 11 Refills, Maintenance, 04/04/23 8:43:00 EDT, Tablet, [facility]/pharmacy #[id number], Partial fill upon patient request if theprescription is for a schedule II opioid drug., 183... Start Date: 04/04/23 Status: Ordered valsartan 320 mg oral tablet 1 tablet, By Mouth, Daily, blood pressure, # 90 tablet, 3 Refills, Maintenance, 04/04/23 8:46:00 EDT, [facility]/pharmacy #[id number], 183, cm, 04/04/23 8:24:00 EDT, Height, 123.2, kg, 02/07/22 12:47:00 EDT, Dry Weight Start Date: 04/04/23 Status: Ordered Vitamin B-12 1000 mcg oral tablet 1, tablet, By Mouth, Daily, # 90 tablet, Refills 1, Maintenance, 08/28/23 13:12:00 EDT, Route to Pharmacy Electronically, [facility] STORE 57846, 183, cm, 08/22/23 13:24:00 EST, Height, 123.2, kg, 02/07/22 12:47:00 EDT, Dry Weight Start Date: 08/28/23 Status: Ordered Xopenex HFA 45 mcg/inh inhalation aerosol 2 puffs, Inhalation, Every 4 hours, PRN Wheezing/Shortness of Breath, replaces Ventolin due to reaction, # 1 each, 1 Refills, Maintenance, 02/15/23 11:23:00 EDT, [facility]erosol, [id number], Partial fill upon patient request if the [...] provided increased discomfort related to nerves. 3Seeing [place] neurology and sleep. Given a trial of [...] Care Team Personnel Name: Olimpia Parker Position: [facility] JUAN Office Staff Member Role: Lifetime Consulting Physician Name: Dayo Castano MD Position: [facility] Physician - Primary Care Member Role: PCP Address: Address: [address] [place] [phone]- [place] Care Team Related Persons Name: JARROD BRADFORD Address: home [address] [place] [address] Name: LOLA BRADFORD Address: home [address] [place] [address] Name: GOLDIE LERMA Address: [place] [address] Name: OLIMPIA LERMA Address: [place] [address] Name: KADE LERMA Address: home [address] [place] [id number] Name: KADE LERMA Address: home [address] [place] [id number]
--- OUTSIDE RECORDS SUMMARY | 2023-11-02 08:28 | XMS_ITS | Continuity of Care Document ---
Author Organization [facility] Address [address] [place] [address]- Care Team Providers Care White Lead Grinder Name Role Phone Contractor Krystal FERNANDEZ Primary Care Physician [phone] [place] [facility] 01/01/21 - 01/31/[address] [address] Allergies, Adverse Reactions, Alerts Substance Reaction Severity [...] 10/30/20 15:08:00 EDT, Route to Pharmacy Electronically, [facility]/pharmacy #[id number], 184, cm, 10/30/20 14:15:00 EDT, Height, 123.27, kg, 06/25/19 13:22:00 EST, Dry Weight Start Date: 10/30/20 Status: Ordered aspirin 81 mg oral delayed release tablet 81 mg, 1, tablet, By Mouth, Daily, # 90 tablet, Refills 0, Tot. Refills 0, Maintenance, 01/01/21 11:26:00 EDT, Route to Pharmacy Electronically, [facility]/pharmacy #[id number], Partial fill upon patient request if the prescription is for a schedule II opioid drug... Start Date: 01/01/21 Status: Ordered aspirin 81 mg oral tablet 1 tablet = 81 mg, By Mouth, Daily, # 90 tablet, 3 Refills, Maintenance, 01/15/20 9:51:00 EDT, Tablet, [facility]/pharmacy #[id number], 184, cm, 01/15/20 9:11:00 [...] Need length 99 months Please send to [facility], 01/21/21 13:20:00 EDT, Supply Start Date: 01/21/21 Status: Ordered Claritin 10 mg oral tablet 10 mg, 1, tablet, By Mouth, Daily, # 30 tablet, Refills 3, Tot. Refills 3, Maintenance, 01/29/21 9:13:00 EDT, Route to Pharmacy Electronically, [facility]/pharmacy #[id number], 184, cm, 01/29/21 9:06:00 [...] 08/17/20 13:12:00 EST, Route to Pharmacy Electronically, [facility]/pharmacy #[id number], 184, cm, 02/28/20 15:58:00 EDT, Height, 123.27,... Start Date: 08/17/20 Stop Date: 08/02/23 Status: Ordered cyanocobalamin 1000 mcg oral tablet 1,000 mcg, 1, tablet, By Mouth, Daily, # 90 tablet, Refills 11, Tot. Refills 11, Maintenance, 08/02/23 13:12:00 EST, Route to Pharmacy Electronically, [facility]/pharmacy #[id number], 184, cm, 01/01/21 10:56:00 [...] 3 Refills, Maintenance, 01/01/21 11:24:00 EDT, Tablet, [facility]/pharmacy #[id number], 184, cm, 01/01/21 10:56:00 EDT, Height, 123.27, kg, 06/25/19 13:22:00 EST, Dry Weight Start Date: 01/01/21 Status: Ordered docusate sodium 100 mg oral tablet 1 tablet = 100 mg, By Mouth, 2 times a day, PRN for constipation, # 60 tablet, 5 Refills, Maintenance, 01/11/21 15:23:00 EDT, Tablet, [facility]/pharmacy #[id number], Partial fill upon patient request if the prescription is for a schedule II opioid drug., 184, cm,... Start Date: 01/11/21 Status: Ordered fluticasone 50 mcg/inh nasal spray See Instructions, USE 1 SPRAY IN EACH NOSTRIL EVERY MORNING, # 16 mL, 3 Refills, 01/29/21 9:11:00 EDT, [facility]/pharmacy #[id number], 30, USE 1 SPRAY [...] provided increased discomfort related to nerves. 3Seeing [place] neurology and sleep. Given a trial of Tegretol 200 mg upto 2 tablets twice a day andadvised to continue with Lyrica 300 mg twice a day. Had some improvement of the facial pain with this regimen. 4Seeing [place] neurology and asleep. On 09/11/2018 started on [...]
--- OUTSIDE RECORDS SUMMARY | 2023-11-02 08:29 | XMS_ITS | Continuity of Care Document ---
Author Organization [facility] ter Address [address] [place] [id number]- Care Team Providers Care Diving Fisher Name Role Phone Terence PRATHER, Azra Primary Care Physician Encounter [facility] Date(s): 07/23/20 - 08/28/[address] [address]- Attending Physician: Quinten Alvarado MD Admitting Physician: [...] 01/15/20 9:51:00 EDT, Route to Pharmacy Electronically, [facility]/pharmacy #[id number], 184, cm, 01/15/20 9:11:00 EDT, Height, 123.27, kg, 06/25/19 13:22:00 EST, Dry Weight Start Date: 01/15/20 Stop Date: 03/15/20 Status: Ordered aspirin 81 mg oral tablet 1 tablet = 81 mg, By Mouth, Daily, # 90 tablet, 3 Refills, Maintenance, 01/15/20 9:51:00 EDT, Tablet, [facility]/pharmacy #[id number], 184, cm, 01/15/20 [...] 02/07/20 9:49:00 EDT, Route to Pharmacy Electronically, [facility]/pharmacy #[id number], 184, cm, 01/29/20 [...] 08/17/20 13:12:00 EST, Route to Pharmacy Electronically, [facility]/pharmacy #[id number], 184, cm, 02/28/20 [...] 3 Refills, Maintenance, 01/15/20 9:51:00 EDT, Tablet, [facility]/pharmacy #[id number], 184, cm, 01/15/20 9:11:00 EDT, Height, 123.27, kg, 06/25/19 13:22:00 EST, Dry Weight Start Date: 01/15/20 Stop Date: 03/15/20 Status: Ordered fluticasone 50 mcg/inh nasal spray See Instructions, USE 1 SPRAY IN EACH NOSTRIL EVERY MORNING, # 16 mL, 0 Refills, Maintenance, [id number], 30, USE 1 SPRAY IN EACH NOSTRIL [...] 2 Refills, Maintenance, 01/27/20 10:39:00 EDT, Capsule, [facility]/pharmacy #[id number], 184, cm, 01/15/20 9:52:00 EDT, Height, 123.27, kg, 06/25/19 13:22:00 EST, Dry Weight Start Date: 01/27/20 Stop Date: 07/25/20 Status: Ordered metFORMIN 500 mg oral tablet 1 tablet = 500 mg, By Mouth, Daily, with meals, # 90 tablet, 11 Refills, Maintenance, 03/02/20 9:56:00 EDT, Tablet, [facility]/pharmacy #[id number], 184, cm, 02/28/20 15:58:00 EDT, Height, 123.27, kg, 06/25/19 13:22:00 EST, Dry Weight Start Date: 03/02/20 Status: Ordered omeprazole 20 mg oral enteric coated capsule 1 capsule = 20 mg, By Mouth, Daily, # 30 capsule, 2 Refills, Maintenance, 02/06/20 16:40:00 EDT, ECCapsule, [facility]/pharmacy #[id number], 184, cm, 01/29/20 [...] provided increased discomfort related to nerves. 3Seeing [place] neurology and sleep. Given a trial of Tegretol 200 mg upto 2 tablets twice a day andadvised to continue with Lyrica 300 mg twice a day. Had some improvement of the facial pain with this regimen. 4Seeing [place] neurology and asleep. On 09/11/2018 started on [...]
--- OUTSIDE RECORDS SUMMARY | 2023-11-02 08:29 | XMS_ITS | Continuity of Care Document ---
Author Organization [facility] Address [address] [place] [address]- Care Team Providers Care Head Of Talent Management Name Role Phone Dayo Castano DO Primary Care Physician [phone] Encounter [facility] Date(s): 12/28/22 - 01/27/[address] [address]- Allergies, Adverse Reactions, Alerts Substance Reaction Severity [...] acel(Tdap) 11/25/14 Given 1Result Comment: DILUENT LOT#: [id number] EXP: 11/2022 MFG: FRESENSIUS Medications Albuterol (Eqv-ProAir HFA) 90 mcg/inh inhalation aerosol 2 puffs, Inhalation, Every 6 hours, please give pt whatver is covered by his insrance use with spacer chamber, # 18 Gm, 5 Refills, Maintenance, 01/26/23 9:27:00 EDT, [facility]/pharmacy #[id number], Partial fill upon patient request [...] tablet, 1 Refills, Maintenance, 11/28/22 12:36:00 EDT, [facility]/pharmacy#[id number], 183, cm, 11/10/22 8:32:00 EDT, Height, 123.2, kg, 02/07/22 12:47:00 EDT, Dry Weight Start Date: 11/28/22 Status: Ordered atorvastatin 20 mg oral tablet 1 tablet = 20 mg, By Mouth, Daily, # 90 tablet, 1 Refills, Maintenance, 11/17/22 10:19:00 EDT, Tablet, [facility]/pharmacy #[id number], Partial fill upon patient request [...] Need length 99 months Please send to [facility], 01/21/21 13:20:00 EDT, Supply Start Date: 01/21/21 Status: Ordered carbidopa-levodopa 25 mg-100 mg oral tablet 1 tablet, By Mouth, 2 times a day, Rx'd by neurology at [facility], # 60 tablet, 0 Refills, Maintenance, 10/04/22 8:23:00 EDT, Tablet, Partial fill upon patient request if the prescription is for a schedule II opioid drug. Start Date: 10/04/22 Status: Ordered chlorthalidone 25 mg oral tablet 25 mg, 1, tablet, By Mouth, Daily, # 30 tablet, Refills 5, Tot. Refills 5, Maintenance, 11/08/22 8:09:00 EDT, Route to Pharmacy Electronically, [facility]/pharmacy #[id number], Partial fill upon patient request if the [...] 07/01/29 13:12:00 EST, Route to Pharmacy Electronically, [facility]/pharmacy #[id number], 183, cm, 08/22/22 8:28:00 EST,Height, [...] Gm, 5 Refills, Maintenance, 01/26/23 9:21:00 EDT, [facility]/pharmacy #[id number], 30, APPLY TOPICALLY TO AFFECTED ARE TWICEA DAY NEEDED FOR PAIN, 183, cm, 01/26/23 9:04:00... Start Date: 01/26/23 Status: Ordered doxycycline hyclate 100 mg oral tablet 1 tablet = 100 mg, By Mouth, 2 times a day, # 14 tablet, 0 Refills, Maintenance, 12/03/22 9:09:00 EDT, Tablet, [facility]/pharmacy #[id number], Partial fill upon patient request [...] bedtime, Rx'd by neurology at [facility], 0 Refills, Maintenance, 10/04/22 8:24:00 EDT, Capsule, Partial fill upon patient request if the prescription is for a schedule II opioid drug. Start Date: 10/04/22 Status: Ordered levocetirizine 5 mg oral tablet 1 tablet = 5 mg, By Mouth, Daily in AM, # 30 tablet, 5 Refills, Maintenance, 11/17/22 10:19:00 EDT,Tablet, [facility]/pharmacy #[id number], Label in sinhala, cetrizine not effective, 1 tablet By Mouth Daily in AM, 183, cm, 11/10/22 8:32:00 EDT, Height, 123.2, kg,... Start Date: 11/17/22 Status: Ordered loratadine 10 mg oral tablet 1, tablet, By Mouth, Daily, PRN, # 90 tablet, Refills 1, NEEDED FOR ALLERGIES, Route to PharmacyElectronically, [id number], 184, cm, 10/18/21 13:37:00 EDT, Height Start Date: 10/22/21 Status: Ordered Metamucil 3.4 gm/5.2 gm oral powder for reconstitution = 3.4 Gm, By Mouth, 3 times a day, PRN as needed for constipation, # 425 Gm, 11 Refills, Maintenance, 09/12/22 20:51:00 EDT, REC Powder, [facility]/pharmacy #[id number], Partial fill upon patient request [...] SMOKING CESSATION, # 40 gum, 0 Refills, [id number], 184, cm, 12/27/21 11:50:00 EDT, Height Start [...] a day, # 180 capsule, 3 Refills, [id number], 90, TAKE 1 CAPSULE BY MOUTH TWICE A DAY, 183, cm, 02/08/22 6:42:00 EDT, Height, 123.2, kg, 02/07/22 12:47:00 EDT, Dry Weight Start Date: 02/09/22 Status: Ordered omeprazole 20 mg oral enteric coated capsule 1 capsule, By Mouth, Daily, # 90 capsule, 0 Refills, Maintenance, 11/24/22 10:47:00 EDT, [facility]/pharmacy #[id number], 183, cm, 11/10/22 8:32:00 EDT, [...] Gm, 1 Refills, Maintenance, 08/31/22 9:06:00 EDT, [facility]/pharmacy #[id number], 14,DISSOLVE 17 GRAMS IN WATER & DRINK ONCE A DAY UNTIL BM,... Start Date: 08/31/22 Status: Ordered pregabalin 300 mg oral capsule 1 capsule = 300 mg, By Mouth, 2 times a day, Rx'd by neurology at [facility], # 60 capsule, 0 Refills, Maintenance, 10/04/22 8:24:00 EDT, Capsule, Partial fill upon patient request if the prescription is for a schedule II opioid drug. Start Date: 10/04/22 Status: Ordered primidone 50 mg oral tablet 100 mg, 2, tablet, By Mouth, 2 times a day, rx'd by neurology at [facility], # 120 tablet, Refills 0, Maintenance, 12/08/22 [...] day, Rx'd by neurology at [facility], # 270 tablet, 0 Refills, Maintenance, [...] 21:20:00 EDT, Aerosol, Route to Pharmacy Electronically, [id number], [facility]/pharmacy #[id number], 183, cm, 12/08/22 8:26:00 EDT, [...] Refills, Maintenance, 03/15/22 14:29:00 EDT, [id number], 183, cm, 02/08/22 6:42:00 EDT, Height, 123.2, [...] provided increased discomfort related to nerves. 3Seeing [place] neurology and sleep. Given a trial of [...] Parker Position: [facility] JUAN Office Staff Member Role: Lifetime Consulting Physician Name: Dayo Castano DO Position: [facility] Resident Member Role: PCP Address: Address: [address] [place] [address]- Care Team Related Persons Name: JARROD BRADFORD Address: home [address] [place] [address] Name: LOLA BRADFORD Address: home [address] [place] [address] Name: GOLDIE LERMA Address: [place] [address] Name: OLIMPIA LERMA Address: [place] [address] Name: KADE LERMA Address: home [address] [place] [address] Name: KADE LERMA Address: home [address] [place] [address]
--- OUTSIDE RECORDS SUMMARY | 2023-11-02 08:29 | XMS_ITS | Continuity of Care Document ---
Author Organization [facility] Address [address] [place] [address]- Care Team Providers Care Mask Design Engineer Name Role Phone Contractor Krystal FERNANDEZ Primary Care Physician Encounter [facility] Date(s): 06/15/21 - 07/15/[address] [address] Attending Physician: Admpete, Cristian Admitting Physician: AdmtrCristian [...] acel(Tdap) 11/25/14 Given 1Result Comment: DILUENT LOT#: [id number] EXP: 11/2022 MFG: FRESENSIUS Medications amitriptyline 100 mg oral tablet 1 tablet = 100 mg, By Mouth, Daily at bedtime, # 30 tablet, 3 Refills, Maintenance, 04/13/21 10:02:00 EDT, Tablet, [facility]/pharmacy #[id number], [...] 3 Refills, Maintenance, 03/03/21 17:24:00 EDT, Tablet, [facility]/pharmacy #[id number], Partial fill upo... Start Date: 03/03/21 Status: Ordered aspirin 81 mg oral delayed release tablet 81 mg, 1, tablet, By Mouth, Daily, # 90 tablet, Refills 0, Tot. Refills 0, Maintenance, 01/01/21 11:26:00 EDT, [facility], [facility] [...] Need length 99 months Please send to [place] [facility], 01/21/21 13:20:00 EDT, Supply Start Date: 01/21/21 Status: Ordered carbidopa-levodopa 25 mg-100 mg oral tablet 1 tablet, By Mouth, 3 times a day, Rx'd by Neurology at [facility]/ Dr. Murphy, # 270 tablet, 0 Refills, Maintenance, 04/15/21 23:30:00 EDT, Tablet, Partial fill upon patient request if the prescription is for a schedule II opioid drug. Start Date: 04/15/21 Status: Ordered chlorthalidone 25 mg oral tablet 1, tablet, By Mouth, Daily, # 30 tablet, Refills 5, Route to Pharmacy Electronically, [id number], 184, cm, 03/30/21 16:08:00 EDT, Height, 123.27, kg, 06/25/19 13:22:00 EST, Dry Weight Start Date: 04/07/21 Status: Ordered Claritin 10 mg oral tablet 10 mg, 1, tablet, By Mouth, Daily, more sea necesario para alergia, # 30 tablet, Refills 5, Tot. Refills 5, Maintenance, 04/13/21 10:04:00 EDT, Route to Pharmacy Electronically, [facility]/pharmacy #[id number], 184, cm, 04/13/21 9:26:00 EDT, Height, 123.27, kg, 01... Start Date: 04/13/21 Status: Ordered clonazePAM 2 mg oral tablet See Instructions, 1 tablet by mouth only NEEDED for severe panic attack. Dispense: #20 tabs per 30d., # 20 tablet, 0 Refills, Maintenance, 07/15/21 14:39:00 EST, Tablet, [facility]/pharmacy #[id number], [...] 0 Refills, Maintenance, 03/03/21 17:36:00 EDT, Cream, [facility]/pharmacy #[id number], Partial fill [...] 5 Refills, Maintenance, 01/11/21 15:23:00 EDT, Tablet, [facility]/pharmacy #[id number], Partial fill upon patient request if the prescription is for a schedule II opioid drug., 184, cm,... Start Date: 01/11/21 Status: Ordered escitalopram 20 mg oral tablet 1 tablet = 20 mg, By Mouth, Daily, # 30 tablet, 3 Refills, Maintenance, 07/13/21 12:26:00 EST, Tablet, [facility]/pharmacy #[id number], d/c citalopram 10 mg, 184, cm, 06/14/21 11:01:00 EST, Height Start Date: 07/13/21 Status: Ordered fluticasone 50 mcg/inh nasal spray See Instructions, USE 1 SPRAY IN EACH NOSTRIL EVERY MORNING, # 16 mL, 3 Refills, 01/29/21 9:11:00 EDT, [facility]/pharmacy #[id number], 30, USE 1 [...] 2 Refills, Maintenance, 02/10/21 13:09:00 EDT, Ointment, [facility]/pharmacy #[id number], Partial fill upon patient request if the prescription is for a schedule II opioid drug., 1 application Top... Start Date: 02/10/21 Status: Ordered magnesium oxide 400 mg oral tablet 1 tablet = 400 mg, By Mouth, Daily, Rx'd by Neurology at [facility]/ Dr. Murphy, 0 Refills, Maintenance, 04/15/21 23:30:00 [...] Topically, Daily, for 6 week(s), Rx in Syriac, # 42 patch, 1 Refills, Acute 08/16/21 [...] # 90 capsule, 0 Refills, [facility], 184, cm, 06/14/21 11:01:00 EST, Height, 123.27, [...] M51. 26 please send to [facility], 01/21/21 13:20:00 EDT, Supply Start Date: 01/21/21 Status: Ordered sulindac 150 mg oral tablet See Instructions, TAKE 1 TABLET BY MOUTH TWICE A DAY NEEDED FOR PAIN, # 28 tablet, 0 Refills, Maintenance, [id number], 184, cm, 02/01/21 10:51:00 EDT, Height, 123.27, kg, 06/25/19 13:22:00 EST, Dry Weight Start Date: 02/01/21 Status: Ordered Tylenol Extra Strength 500 mg oral tablet 2 tablet = 1,000 mg, By Mouth, 3 times a day, PRN as needed for pain, # 100 tablet, 5 Refills, Maintenance, 04/13/21 10:08:00 EDT, Tablet, [facility]/pharmacy #[id number], [...] provided increased discomfort related to nerves. 3Seeing [place] neurology and sleep. Given a trial of Tegretol 200 mg upto 2 tablets twice a day andadvised to continue with Lyrica 300 mg twice a day. Had some improvement of the facial pain with this regimen. 4Seeing [place] neurology and asleep. On 09/11/2018 started on [...]
--- OUTSIDE RECORDS SUMMARY | 2023-11-02 08:29 | XMS_ITS | Continuity of Care Document ---
Author Organization [facility] Address [address] [place] [address]- Care Team Providers Care Well Shooter Name Role Phone Dayo Castano MD Primary Care Physician Encounter [facility] Date(s): 05/19/23 - 06/18/[address] [address]- Allergies, Adverse Reactions, Alerts Substance Reaction Severity [...] influenza virus vaccine, inactivated 04/16/15 Give n [id number] 12y+ bivalent booster vax 02/21/23 Given SARS-CoV-2 (COVID-19) mRNA BNT-162b2 vac 1 06/01/21 Given SARS-CoV-2 (COVID-19) mRNA BNT-162b2 vac 11/07/20 Recorded SARS-CoV-2 (COVID-19) mRNA BNT-162b2 vac 10/17/20 Recorded zoster vaccine, inactivated 06/18/19 Recorded zoster vaccine, inactivated 06/17/19 Recorded zoster vaccine, inactivated 11/25/17 Recorded Influenza Vaccine (oldterm) 02/17/17 Recorded pneumococcal 23-valent vaccine 02/16/16 Given tetanus/diphtheria/pertussis, acel(Tdap) 11/25/14 Given 1Result Comment: DILUENT LOT#: [id number] EXP: 11/2022 MFG: FRESENSIUS Medications Albuterol (Eqv-ProAir [...] Mouth, Daily at bedtime, Rx'd by neurology ([place]), # 30 tablet, 0 Refills, Maintenance, 12/08/22 [...] Need length 99 months Please send to [facility], 01/21/21 13:20:00 EDT, Supply Start Date: 01/21/21 Status: Ordered carbidopa-levodopa 25 mg-100 mg oral tablet 1 tablet, By Mouth, 2 times a day, Rx'd by neurology at [facility], # 60 tablet, 0 Refills, Maintenance, [...] Refills, Maintenance, 01/26/23 9:21:00 EDT, [facility]/pharmacy #[id number], 30, [...] 05/19/23 12:59:00 EST, EC Tablet, [facility]/pharmacy #[id number], Partial fill upon patientrequest if [...] Maintenance, 05/05/23 9:15:00 EST, Tablet, [facility]/pharmacy #[id number], [...] Daily at bedtime, Rx'd by neurology at [facility], 0 Refills, Maintenance, 10/04/22 8:24:00 EDT, [...] Refills, [facility] STORE [id number], 184, cm, 12/27/21 11:50:00 EDT, Height Start [...] Refills, Maintenance, 04/04/23 8:46:00 EDT, [facility]/pharmacy #[id number], 183, [...] times a day, Rx'd by neurology at [facility], # 60 capsule, 0 Refills, Maintenance, 10/04/22 8:24:00 EDT, Capsule, Partial fill upon patient request if the prescription is for a schedule II opioid drug. Start Date: 10/04/22 Status: Ordered primidone 50 mg oral tablet 100 mg, 2, tablet, By Mouth, 2 times a day, rx'd by neurology at [place], # 120 tablet, Refills 0, Maintenance, 12/08/22 [...] times a day, Rx'd by neurology at [facility], # 270 tablet, 0 Refills, Maintenance, [...] 8:44:00 EDT, Aerosol, Route to Pharmacy Electronically, [id number], [facility]/pharmacy #[id number], 183, [...] Maintenance, 04/04/23 8:43:00 EDT, Tablet, [facility]/pharmacy [...] provided increased discomfort related to nerves. 3Seeing [place] neurology and sleep. Given a trial of [...] Team Personnel Name: Olimpia Parker Position: [facility] JUAN Office Staff Member Role: Lifetime Consulting Physician Name: Dayo Castano MD Position: [facility] Physician - Primary Care Member Role: PCP Address: Address: [address] [place] [address]- Care Team Related Persons Name: JARROD BRADFORD Address: home [address] [place] [address] Name: LOLA BRADFORD Address: home [address] [place] [address] Name: GOLDIE LERMA Address: [place] [address] Name: LERMA, OLIMPIA Address: [place] [address] Name: KADE LERMA Address: [address] [place] [address] Name: KADE LERMA Address: home [address] [place] [address]
--- OUTSIDE RECORDS SUMMARY | 2023-11-02 08:29 | XMS_ITS | Continuity of Care Document ---
Author Organization [facility] Address [address] [place] [id number]- Care Team Providers Care Waist Fitter Name Role Phone Dayo Castano MD Primary Care Physician Encounter [facility] Date(s): 09/29/23 - 10/29/23 [facility] [address] [place] [address]- Attending Physician: Admtr, Ar8 Allergies, Adverse Reactions, Alerts Substance Reaction Severity Status penicillin Unknown Active gabapentin Active hydrOXYzine hydrochloride Ac tive Lantus Active ZyrTEC Active Ventolin HFA Active Flovent HFA Active traZODone Active SEROquel Active Immunizations Given and Recorded [...] influenza virus vaccine, inactivated 04/16/15 Give n [id number] 12y+ bivalent booster vax 02/21/23 Given SARS-CoV-2 (COVID-19) mRNA BNT-162b2 vac 1 06/01/21 Given SARS-CoV-2 (COVID-19) mRNA BNT-162b2 vac 11/07/20 Recorded SARS-CoV-2 (COVID-19) mRNA BNT-162b2 vac 10/17/20 Recorded zoster vaccine, inactivated 06/18/19 Recorded zoster vaccine, inactivated 06/17/19 Recorded zoster vaccine, inactivated 11/25/17 Recorded Influenza Vaccine (oldterm) 02/17/17 Recorded pneumococcal 23-valent vaccine 02/16/16 Given tetanus/diphtheria/pertussis, acel(Tdap) 11/25/14 Given 1Result Comment: DILUENT LOT#: [id number] EXP: 11/2022 MFG: FRESENSIUS Medications amitriptyline 100 mg oral tablet 1 tablet = 100 mg, By Mouth, Daily at bedtime, Rx'd by neurology ([facility]), # 30 tablet, 0 Refills, Maintenance, 12/08/22 15:04:00 EDT, Tablet, Partial fill upon patient request if the prescription is for a schedule II opioid drug. Start Date: 12/08/22 Status: Ordered Aquaphor Healing for Baby topical ointment 1 application, Topically, 2 times a day, PRN as needed for dry skin, # 90 Gm, 0 Refills, Maintenance, 05/05/23 9:12:00 EST, Ointment, [facility]/pharmacy #[id number], Partial fill upon patient request if the prescription is for a schedule II opioid drug., 1 applic... Start Date: 05/05/23 Status: Ordered ARIPiprazole 5 mg oral tablet 5 mg, 1, tablet, By Mouth, Daily, # 30 tablet, Refills 0, Maintenance, 10/21/23 5:06:00 EDT, Partial fill upon patient request if the prescription is for a schedule II opioid drug. Start Date: 10/21/23 Status: Ordered Aspirin Low Dose 81 mg oral delayed release tablet 1 tablet = 81 mg, By Mouth, Daily, # 30 tablet, 0 Refills, Maintenance, 10/21/23 5:07:00 EDT, EC Tablet, Partial fill upon patient request if the prescription is for a schedule II opioid drug. Start Date: 10/21/23 Status: Ordered atorvastatin 20 mg oral tablet 1 tablet = 20 mg, By Mouth, Daily, # 30 tablet, 0 Refills, Maintenance, 10/21/23 5:07:00 EDT, Tablet, Partial fill upon patient request if the prescription is for a schedule II opioid drug. Start Date: 10/21/23 Status: Ordered Augmentin 875 Tablet 1, tablet, By Mouth, 2 times a day, Maintenance, 10/25/23 11:55:00 EDT Start Date: 10/25/23 Stop Date: 10/31/23 Status: Ordered Auto CPAP Auto CPAP, See [...] EDT, Supply Start Date: 01/15/20 Status: Ordered budesonide-formoterol 160 mcg-4.5 mcg/inh inhalation aerosol with adapter INHALE 2 PUFFS TWICE A DAY Start Date: 10/21/23 Status: Ordered cane cane, See Instructions, # 1 each, Refills 0, Tot. Refills 0, Maintenance, use as needed for walking, 01/14/21 16:42:00 EDT, Supply Start Date: 01/14/21 Status: Ordered Cane See Instructions, # 1 each, Maintenance, DX: M51. 26 Need length 99 months Please send to [facility], 01/21/21 13:20:00 EDT, Supply Start Date: 01/21/21 Status: Ordered carbidopa-levodopa 25 mg-100 mg oral tablet TAKE 1 TAB ORALLY 2 TIMES A DAY FOR 30 DAYS TAKE W/ A CRACKER 30 MINUTES BEFORE BREAKFAST AND LUNCH Start Date: 10/21/23 Status: Ordered chlorthalidone 25 mg oral tablet TAKE 1 TABLET BY MOUTH EVERY MORNING INSTR:BLOOD PRESSURE Start Date: 10/21/23 Status: Ordered clonazePAM 1 mg oral tablet [...] EDT, Supply Start Date: 01/27/21 Status: Ordered [facility] Advanced Healing Ointment 41% [facility] Advanced [...] Gm, 5 Refills, Maintenance, 07/04/23 8:59:00 EST, [facility]/pharmacy #[id number], 30, APPLY TOPICALLY TO AFFECTED ARE TWICEA DAY NEEDED FOR PAIN, 183, cm, 07/04/23 8:49:00... Start Date: 07/04/23 Status: Ordered Doxycycline Tablet 100 mg, By Mouth, Every 12 hours, Maintenance, 10/25/23 11:55:00 EDT Start Date: 10/25/23 Stop Date: 10/31/23 Status: Ordered Enoxaparin 0.8 mL = 80 mg, Subcutaneous Injection, Every 12 hours, 0 Refills, Maintenance, 10/25/23 11:55:00 EDT, Injection, Partial fill upon patient request if the prescription is for a schedule II opioid drug. Start Date: 10/25/23 Status: Ordered Epsom Salt Epsom Salt, See [...] mg, By Mouth, Daily, # 30 tablet, 0 Refills, Maintenance, 10/21/23 5:07:00 EDT, Tablet, Partial fill upon patient request if the prescription is for a schedule II opioid drug. Start Date: 10/21/23 Status: Ordered FREESTYLE 28G LANCETS FREESTYLE 28G [...] EDT, Supply Start Date: 09/22/22 Status: Ordered Metamucil 3.4 gm/5.2 gm oral powder for reconstitution = 3.4 Gm, By Mouth, 3 times a day, PRN as needed for constipation, # 425 Gm, 11 Refills, Maintenance, 08/07/23 14:34:00 EST, REC Powder, [id number], Partial fill upon patient request if the prescription is for a schedule II opioid drug., 183,... Start Date: 08/07/23 Status: Ordered metFORMIN 500 mg oral tablet 2 tablet, By Mouth, 2 times a day, FOR DIABETES., # 360 tablet, 3 Refills, Maintenance, 09/25/23 15:02:00 EDT, [facility], 183, cm, 08/22/23 13:24:00 EST, Height, 123.2, kg, 02/07/22 12:47:00 EDT, Dry Weight Start Date: 09/25/23 Status: Ordered Non-slip shower mat Non-slip shower mat, See Instructions, # 1 each, Refills 0, Tot. Refills 0, Maintenance, M54.9 and M79.606, for 99mo, 08/22/22 13:49:00 EST, Supply Start Date: 08/22/22 Status: Ordered omeprazole 20 mg oral enteric coated capsule 1 capsule = 20 mg, By Mouth, Daily, # 30 capsule, 0 Refills, Maintenance, 10/21/23 5:05:00 EDT, EC Capsule, Partial fill upon patient request if the prescription is for a schedule II opioid drug. Start Date: 10/21/23 Status: Ordered One Touch Ultra 2 Glucose [...] EST, Compound Start Date: 08/22/22 Status: Ordered pregabalin 300 mg oral capsule 1 capsule = 300 mg, By Mouth, 2 times a day, Rx'd by neurology at [facility], # 60 capsule, 0 Refills, Maintenance, 10/04/22 8:24:00 EDT, Capsule, Partial fill upon patient request if the prescription is for a schedule II opioid drug. Start Date: 10/04/22 Status: Ordered primidone 50 mg oral tablet 50 mg, By Mouth, 3 times a day, Refills 0, Maintenance, 10/25/23 11:55:00 EDT, Partial fill upon patient request if the prescription is for a schedule II opioid drug. Start Date: 10/25/23 Status: Ordered Raised Toilet Seat - Elongated Raised Toilet Seat - Elongated, See Instructions, # 1 each, Refills 0, Tot. Refills 0, Maintenance,to be used during toileting dx: M51.26, 02/25/22 16:17:00 EDT, Supply Start Date: 02/25/22 Status: Ordered rOPINIRole 0.25 mg oral tablet See Instructions, 4 tablet By Mouth 4 times a day, 0 Refills, Maintenance, 10/04/22 8:23:00 EDT, Tablet, [...] Maintenance, DX: M51. 26 please send to [facility], 08/08/22 15:41:00 EST, Supply Start Date: 08/08/22 Status: Ordered Shower Chair w/ Handles and Seat Shower Chair w/ Handles and Seat, See Instructions, # 1 each, Refills 0, Tot. Refills 0, Maintenance, Use daily while bathing to prevent falls. ICD 10: G20.A1 QUINTIN:99, 09/05/23 13:06:00 EDT, Supply Start Date: 09/05/23 Status: Ordered tiZANidine 4 mg oral tablet TAKE 1 TABLET BY MOUTH EVERY 8 HOURS NEEDED Start Date: 10/21/23 Status: Ordered Tylenol Extra Strength 500 mg oral tablet 2 tablet = 1,000 mg, By Mouth, 3 times a day, PRN as needed for pain, # 100 tablet, 11 Refills, Maintenance, 04/04/23 8:43:00 EDT, Tablet, [facility]/pharmacy #[id number], Partial fill upon patient request if theprescription is for a schedule II opioid drug., 183... Start Date: 04/04/23 Status: Ordered valsartan 320 mg oral tablet TAKE 1 TABLET BY MOUTH EVERY DAY Start Date: 10/21/23 Status: Ordered Ventolin HFA 108 mcg/inh inhalation aerosol with adapter 1 puffs, Inhalation, 4 times a day, PRN for wheezing, # 18 Gm, 0 Refills, Maintenance, 10/21/23 5:06:00 EDT, Aerosol, Partial fill upon patient request if the prescription is for a schedule II opioiddrug. Start Date: 10/21/23 Status: Ordered Vitamin B-12 1000 mcg oral tablet 1,000 mcg, 1, tablet, By Mouth, Daily, # 30 tablet, Refills 0, Maintenance, 10/21/23 5:07:00 EDT, Partial fill upon patient request if the prescription is for a schedule II opioid drug. Start Date: 10/21/23 Status: Ordered warfarin 5 mg oral tablet = 5 mg, By Mouth, Daily, 0 Refills, Maintenance, 10/25/23 11:56:00 EDT, Tablet, Partial fill upon patient request if the prescription is for a schedule II opioid drug. Start Date: 10/25/23 Status: Ordered Problem List Condition Confirmation Course [...] increased discomfort related to nerves. 3Seeing [place] neurology and sleep. Given a trial of [...] last 30 days entered on: 12/27/21 Sex MR Spine * Event Display: MRI Spine Authored Date: Patient Care team information Care Team Personnel Name: Dia José RN Position: [place] RN Member Role: Primary Care Nurse Name: Maureen Bonilla Position: [facility] RN Member Role: Primary Care Nurse Name: Casandra Parker Position: [facility] JUAN Office Staff Member Role: Lifetime Consulting Physician Name: Maureen Olivera LPN Position: [facility] RN Member Role: Primary Care Nurse Name: Quinten Duarte RN Position: [facility] RN Member Role: Primary Care Nurse Name: Dayo Castano MD Position: [facility] Physician - Primary Care Member Role: PCP Address: Address: [address] [place] [address]- Name: Chencho Dickinson MD Position: [facility] Renal MD Member Role: Lifetime Consulting Physician Address: Address: [address] [place] [address] [facility] [place] [address]- Name: Emani Mcpherson RN Position: [facility] RN Member Role: Primary Care Nurse Name: Jacquelyn Licea RN Position: [facility] RN Member Role: Primary Care Nurse Care Team Related Persons Name: AZUCENA RAFITA Address: [address] [place] [address] Name: JARROD BRADFORD Address: home [address] [place] [address] Name: LOLA BRADFORD Address: home [address] [place] [address] Name: GOLDIE LERMA Address: [place] [address] Name: CASANDRA LERMA Address: [place] [address] Name: KADE LERMA Address: home [address] [place] [address] Name: KADE LERMA Address: home [address] [place] [address]
--- OUTSIDE RECORDS SUMMARY | 2023-11-02 08:29 | XMS_ITS | Continuity of Care Document ---
Author Organization [facility] Address [address] [place] [address]- Care Team Providers Care Senior Major Gifts Officer Name Role Phone Ivone Oneil MD Primary Care Physician Encounter [facility] Date(s): 02/11/22 - 03/13/[address] [address]- Allergies, Adverse Reactions, Alerts Substance Reaction Severity [...] acel(Tdap) 11/25/14 Given 1Result Comment: DILUENT LOT#: [id number] EXP: 11/2022 MFG: FRESENSIUS Medications amitriptyline 100 [...] Need length 99 months Please send to [facility], 01/21/21 13:20:00 EDT, Supply Start Date: 01/21/21 [...] capsule, 0 Refills, Maintenance,03/11/22 9:32:00 EDT, Capsule, [facility]/pharmacy #[id number], Patient reports that he is not allergic [...] 07/17/26 13:12:00 EST, [id number], cm, 07/26/21 9:11:00 EST, Height [...] 5 Refills, Maintenance, 10/07/21 20:16:00 EDT, Tablet, [facility]/pharmacy #[id number], Partial fill upon patient request if the [...] [facility] 308[facility], 184, cm, 10/18/21 13:37:00 EDT, Height Start Date: 10/22/21 Status: Ordered magnesium oxide 400 mg oral tablet 1 tablet = 400 mg, By Mouth, Daily, Rx'd by Neurology at [facility] Alisa [facility]/ Dr. Murphy, 0 Refills, Maintenance, 04/15/21 23:30:00 [...] SMOKING CESSATION, # 40 gum, 0 Refills, [facility], 184, cm, 12/27/21 11:50:00 EDT, Height Start Date: 02/01/22 Status: Ordered omega-3 polyunsaturated fatty acids ethyl esters 1000 mg oral capsule 1 capsule, By Mouth, 2 times a day, # 180 capsule, 3 Refills, [facility], 90, TAKE 1 CAPSULE BY MOUTH TWICE A DAY, 183, cm, 02/08/22 6:42:00 EDT, Height, 123.2, kg, 02/07/22 12:47:00 EDT, Dry Weight Start Date: 02/09/22 Status: Ordered omeprazole 20 mg oral enteric coated capsule 1 capsule, By Mouth, Daily, # 90 capsule, 0 Refills, Maintenance, 02/14/22 21:23:00 EDT, [facility], 183, cm, 02/08/22 6:42:00 EDT, Height, 123.2, [...] 0 Refills, Maintenance, 06/29/21 15:41:00 EST, Capsule, [facility]/pharmacy #[id number], Partial fill upon patient request if the prescription is for a schedule II o... Start Date: 06/29/21 Stop Date: 07/29/21 Status: Ordered primidone 50 mg oral tablet 100 mg, 2, tablet, By Mouth, 3 times a day, Rx'd by Neurology at [facility] Alisa Katy/ Dr. Murphy, Refills 0, Maintenance, 03/07/19 8:44:30 [...] please send to [facility], 01/21/21 13:20:00 EDT, Supply Start Date: 01/21/21 Status: Ordered Symbicort 160mcg/4.5mcg Inhaler 2, puffs, Inhalation, 2 times a day, # 6 Gm, Refills 0, Tot. Refills 0, Maintenance, 12/27/21 12:43:00 EDT, Aerosol, Route to Pharmacy Electronically, [id number], [facility]/pharmacy #[id number], 184, cm, 12/27/21 11:50:00 EDT, Height Start Date: 12/27/21 Status: Ordered Tylenol Extra Strength 500 mg oral tablet 2 tablet = 1,000 mg, By Mouth, 3 times a day, PRN as needed for pain, # 100 tablet, 5 Refills, Maintenance, 12/07/21 10:44:00 EDT, Tablet, [id number], Partial fill upon patient request if theprescription [...] Active KERMIT (obstructive sleep apnea ): bipap 19/ 2 liters oxygen(Confirmed) Active Onychomycosis of toenail(Confirmed) [...] provided increased discomfort related to nerves. 3Seeing [place] neurology and sleep. Given a trial of Tegretol 200 mg upto 2 tablets twice a day andadvised to continue with Lyrica 300 mg twice a day. Had some improvement of the facial pain with this regimen. 4Seeing [place] neurology and asleep. On 09/11/2018 started on [...] Team Personnel Name: Ivone Oneil MD Address: [address] [place] [address]
--- OUTSIDE RECORDS SUMMARY | 2023-11-02 08:29 | XMS_ITS | Continuity of Care Document ---
Author Organization [facility] Address [address] [place] [address]- Care Team Providers Care Patient Case Manager Name Role Phone Dayo Castano MD Primary Care Physician [phone] [id number] Date[facility]s): [facility]21[facility]23 - 08[facility]16[facility] [address] [place] [id number] Attending Physician: Abi Pedersen MD Admitting Physician: Abi Pedersen MD Referring Physician: Nick Huston V Allergies, Adverse Reactions, Alerts Substance Reaction Severity Status penicillin Unknown Active gabapentin Active hydrOXYzine hydrochloride Ac tive Lantus Active Flovent HFA Active ZyrTEC Active SEROquel Active Ventolin HFA Active traZODone Active Immunizations [...] influenza virus vaccine, inactivated 04/16/15 Give n [id number] 12y+ bivalent booster vax 02/21/23 Given SARS-CoV-2 (COVID-19) mRNA BNT-162b2 vac 1 06/01/21 Given SARS-CoV-2 (COVID-19) mRNA BNT-162b2 vac 11/07/20 Recorded SARS-CoV-2 (COVID-19) mRNA BNT-162b2 vac 10/17/20 Recorded zoster vaccine, inactivated 06/18/19 Recorded zoster vaccine, inactivated 06/17/19 Recorded zoster vaccine, inactivated 11/25/17 Recorded Influenza Vaccine (oldterm) 02/17/17 Recorded pneumococcal 23-valent vaccine 02/16/16 Given tetanus/diphtheria/pertussis, acel(Tdap) 11/25/14 Given 1Result Comment: DILUENT LOT#: [id number] EXP: 11/2022 MFG: FRESENSIUS Medications Albuterol (Eqv-ProAir [...] Mouth, Daily at bedtime, Rx'd by neurology ([facility]), # 30 tablet, 0 Refills, Maintenance, [...] 3 Refills, Maintenance, 04/04/23 8:44:00 EDT, Tablet, [facility]/pharmacy #[id number], Partial fill upon patient [...] Need length 99 months [facility], 01/21/21 13:20:00 EDT, Supply Start Date: 01/21/21 Status: Ordered carbidopa-levodopa 25 mg-100 mg oral tablet 1 tablet, By Mouth, 2 times a day, Rx'd by neurology at [facility], # 60 tablet, 0 Refills, Maintenance, 10/04/22 8:23:00 EDT, Tablet, Partial fill upon patient request if the prescription is for a schedule II opioid drug. Start Date: 10/04/22 Status: Ordered chlorthalidone 25 mg oral tablet 25 mg, 1, tablet, By Mouth, Daily in AM, Blood pressure, # 90 tablet, Refills 3, Tot. Refills 3, Maintenance, 04/04/23 8:45:00 EDT, Route to Pharmacy Electronically, [facility]/pharmacy #[id number], Partial fill upon patient [...] 10/06/23 14:26:00 EDT, 08/07/23 14:26:00 EST, Cream, [facility]/pharmacy #[id number], Partial fill upon patient [...] 04/04/23 8:46:00 EDT, Route to Pharmacy Electronically, [facility]/pharmacy #[id number], 183, cm, 04/04/23 8:24:00 [...] Gm, 5 Refills, Maintenance, 07/04/23 8:59:00 EST, [facility]/pharmacy #[id number], 30, APPLY TOPICALLY TO [...] at bedtime, Rx'd by neurology at [facility], 0 Refills, Maintenance, 10/04/22 8:24:00 EDT, Capsule, Partial fill upon patient request if the prescription is for a schedule II opioid drug. Start Date: 10/04/22 Status: Ordered loratadine 10 mg oral tablet 1, tablet, By Mouth, Daily, PRN, # 90 tablet, Refills 3, Tot. Refills 3, NEEDED FOR ALLERGIES, 04/04/23 8:42:00 EDT, Route to Pharmacy Electronically, [facility]/pharmacy #[id number], 183, cm, 04/04/23 8:24:00EDT, Height, 123.2, kg, 02/07/22 12:47:00 EDT, Dry... Start Date: 04/04/23 Status: Ordered Metamucil 3.4 gm/5.2 gm oral powder for reconstitution = 3.4 Gm, By Mouth, 3 times a day, PRN as needed for constipation, # 425 Gm, 11 Refills, Maintenance, 08/07/23 14:34:00 EST, REC Powder, [facility]/pharmacy #[id number], Partial fill upon patient [...] SMOKING CESSATION, # 40 gum, 0 Refills, [facility] STORE 00196, 184, cm, 12/27/21 11:50:00 EDT, Height Start [...] Stop 03/29/24 8:46:00 EDT, 04/04/23 8:46:00 EDT, [facility]/pharmacy #[id number], 1 capsule By Mouth 2 times a day,x90 days, 183, cm, 04/04/23 8:24:00 EDT, Height, 123.2, kg, 2... Start Date: 04/04/23 Stop Date: 03/29/24 Status: Ordered omeprazole 20 mg oral enteric coated capsule 1 capsule, By Mouth, Daily, # 90 capsule, 3 Refills, Maintenance, 04/04/23 8:46:00 EDT, [facility]/pharmacy #[id number], 183, cm, 04/04/23 8:24:00 [...] Gm, 1 Refills, Maintenance, 04/04/23 8:46:00 EDT, [facility]/pharmacy #[id number], 14,DISSOLVE 17 GRAMS IN WATER & DRINK ONCE A DAY UNTIL BM,... Start Date: 04/04/23 Status: Ordered pregabalin 300 mg oral capsule 1 capsule = 300 mg, By Mouth, 2 times a day, Rx'd by neurology at [facility], # 60 capsule, 0 Refills, Maintenance, 10/04/22 8:24:00 EDT, Capsule, Partial fill upon patient request if the prescription is for a schedule II opioid drug. Start Date: 10/04/22 Status: Ordered primidone 50 mg oral tablet 100 mg, 2, tablet, By Mouth, 2 times a day, rx'd by neurology at [facility], # 120 tablet, Refills 0, Maintenance, [...] a day, Rx'd by neurology at [facility], # 270 tablet, 0 Refills, Maintenance, 10/04/22 [...] 14:39:00 EST, Aerosol, Route to Pharmacy Electronically, [id number], [facility]/pharmacy #[id number], 183, cm, 08/07/23 14:26:00 [...] 11 Refills, Maintenance, 04/04/23 8:43:00 EDT, Tablet, [facility]/pharmacy #[id number], Partial fill upon patient [...] Refills, Maintenance, 02/15/23 11:23:00 EDT, [facility]erosol, [id number], Partial fill upon patient request if the [...] provided increased discomfort related to nerves. 3Seeing [place] neurology and sleep. Given a trial of [...] Care Team Personnel Name: Olimpia Parker Position: [facility] JUAN Office Staff Member Role: Lifetime Consulting Physician Name: Dayo Castano MD Position: [facility] Physician - Primary Care Member Role: PCP Address: Address: [address] [place] [address]- Care Team Related Persons Name: JARROD BRADFORD Address: home [address] [place] [address] Name: LOLA BRADFORD Address: home [address] [place] [address] Name: GOLDIE LERMA Address: [place] [address] Name: OLIMPIA LERMA Address: [place] [address] Name: KADE LERMA Address: home [address] [place] [address] Name: KADE LERMA Address: home [address] [place] [address]
--- OUTSIDE RECORDS SUMMARY | 2023-11-02 08:29 | XMS_ITS | Continuity of Care Document ---
Author Organization [facility] Address [address] [place] [address]- Care Team Providers Care Taper Printed Circuit Layout Name Role Phone Terence PRATHER, Azra Primary Care Physician [phone] Encounter [facility] Date(s): 01/30/20 - 02/29/20 [facility]/[address] [address]- [facility] Allergies, Adverse Reactions, Alerts Substance Reaction Severity [...] 01/15/20 9:49:00 EDT, Route to Pharmacy Electronically, [facility]/pharmacy #[id number] Tablet, 184, cm, 01/15/20 9:11... Start Date: 01/15/20 Stop Date: 02/14/20 Status: Ordered amLODIPine 10 mg oral tablet 10 mg, 1, tablet, By Mouth, Daily, # 90 tablet, Refills 3, Tot. Refills 3, Maintenance, 01/15/20 9:51:00 EDT, Route to Pharmacy Electronically, [facility]/pharmacy #[id number], 184, cm, 01/15/20 9:11:00 EDT, Height, 123.27, kg, 06/25/19 13:22:00 EST, Dry Weight Start Date: 01/15/20 Stop Date: 03/15/20 Status: Ordered aspirin 81 mg oral tablet 1 tablet = 81 mg, By Mouth, Daily, # 90 tablet, 3 Refills, Maintenance, 01/15/20 9:51:00 EDT, Tablet, [facility]/pharmacy #[id number], 184, cm, 01/15/20 9:11:00 [...] 9:49:00 EDT, Route to Pharmacy Electronically, [facility]/pharmacy #[id number], 184, cm, 01/29/20 14:16:00 [...] Refills, Maintenance, 01/15/20 9:51:00 EDT, Tablet, [facility]/pharmacy #[id number], 184, cm, 01/15/20 9:11:00 EDT, Height, 123.27, kg, 06/25/19 13:22:00 EST, Dry Weight Start Date: 01/15/20 Stop Date: 03/15/20 Status: Ordered fluticasone 50 mcg/inh nasal spray See Instructions, USE 1 SPRAY IN EACH NOSTRIL EVERY MORNING, # 16 mL, 0 Refills, Maintenance, [facility] STORE 82406, 30, USE 1 SPRAY IN EACH NOSTRIL [...] 2 Refills, Maintenance, 01/27/20 10:39:00 EDT, Capsule, [facility]/pharmacy #[id number], 184, cm, 01/15/20 9:52:00 [...] provided increased discomfort related to nerves. 3Seeing [place] neurology and sleep. Given a trial of Tegretol 200 mg upto 2 tablets twice a day andadvised to continue with Lyrica 300 mg twice a day. Had some improvement of the facial pain with this regimen. 4Seeing [place] neurology and asleep. On 09/11/2018 started on [...]
--- OUTSIDE RECORDS SUMMARY | 2023-11-02 08:29 | XMS_ITS | Continuity of Care Document ---
Author Organization [facility] Adult Address [address] [place] [address]- Care Team Providers Care Hospitalist Physician Name Role Phone Ivone Oneil MD Primary Care Physician [facility] Date(s): 02/22/22 - 03/24/[address] [facility] [address] [place] [address]- Allergies, Adverse Reactions, Alerts Substance Reaction Severity [...] acel(Tdap) 11/25/14 Given 1Result Comment: DILUENT LOT#: [id number] EXP: 11/2022 MFG: FRESENSIUS Medications amitriptyline 100 [...] Need length 99 months Please send to [facility], 01/21/21 13:20:00 EDT, [...] capsule, 0 Refills, Maintenance,03/11/22 9:32:00 EDT, Capsule, [facility]/pharmacy #[id number], Patient reports that he is not allergic [...] 0 Refills, Maintenance, 08/18/21 15:21:00 EST, Tablet, [facility]/pharmacy #[id number], Partial fill upon patient [...] 13:12:00 EST, [id number], 184, cm, 07/26/21 9:11:00 EST, Height Start Date: 07/17/26 Stop Date: 07/01/29 Status: Ordered cyanocobalamin 1000 mcg oral tablet 1,000 mcg, 1, tablet, By Mouth, Daily, for 90 days, # 90 tablet, Refills 11, Tot. Refills 11, Hard Stop 07/17/26 13:12:00 EST, 08/02/23 13:12:00 EST, Route to Pharmacy Electronically, [facility]/pharmacy #[id number], 184, cm, 01/01/21 10:56:00 [...] 5 Refills, Maintenance, 10/07/21 20:16:00 EDT, Tablet, [facility]/pharmacy #[id number], Partial fill upon patient request if the [...] 1, NEEDED FOR ALLERGIES, Route to PharmacyElectronically, [id number], 184, cm, 10/18/21 13:37:00 EDT, Height Start Date: 10/22/21 Status: Ordered magnesium oxide 400 mg oral tablet 1 tablet = 400 mg, By Mouth, Daily, Rx'd by Neurology at [facility] [place]/ Dr. Murphy, 0 Refills, Maintenance, 04/15/21 23:30:00 [...] 11:13:00 EST, 10/28/21 11:13:00 EDT, REC Powder, [facility]/pharmacy #[id number], Partial fill upon patient [...] tablet, 3 Refills, Maintenance, 09/16/2211:15:00 EDT, Tablet, [facility]/pharmacy #[id number], Partial f... Start Date: 09/15/21 Status: Ordered Nicotine 2 mg gum See Instructions, CHEW 1 PIECE OF GUM EVERY 2 HOURS NEEDED FOR SMOKING CESSATION, # 40 gum, 0 Refills, [id number], 184, cm, 12/27/21 11:50:00 EDT, Height Start Date: 02/01/22 Status: Ordered omega-3 polyunsaturated fatty acids ethyl esters 1000 mg oral capsule 1 capsule, By Mouth, 2 times a day, # 180 capsule, 3 Refills, [facility], 90, TAKE 1 CAPSULE BY MOUTH TWICE A DAY, 183, cm, 02/08/22 6:42:00 EDT, Height, 123.2, kg, 02/07/22 12:47:00 EDT, Dry Weight Start Date: 02/09/22 Status: Ordered omeprazole 20 mg oral enteric coated capsule 1 capsule, By Mouth, Daily, # 90 capsule, 0 Refills, Maintenance, 02/14/22 21:23:00 EDT, [facility], 183, cm, 02/08/22 6:42:00 EDT, Height, 123.2, [...] Refills, Maintenance, 03/22/22 8:30:00 EDT, [id number], 14, DISSOLVE 17 GRAMS IN WATER & DRINK ONCE A DAY UNTIL BM, IF... Start Date: 03/22/22 Status: Ordered pregabalin 300 mg oral capsule 1 capsule = 300 mg, By Mouth, 2 times a day, PRN pain, one tab twice daily prn pain, # 60 capsule, 0 Refills, Maintenance, 06/29/21 15:41:00 EST, Capsule, [facility]/pharmacy #[id number], Partial fill upon patient request if the prescription is for a schedule II o... Start Date: 06/29/21 Stop Date: 07/29/21 Status: Ordered primidone 50 mg oral tablet 100 mg, 2, tablet, By Mouth, 3 times a day, Rx'd by Neurology at [facility]/ Dr. Murphy, Refills 0, Maintenance, [...] 12:43:00 EDT, Aerosol, Route to Pharmacy Electronically, [id number], [facility]/pharmacy #[id number], 184, cm, 12/27/21 11:50:00 EDT, Height Start Date: 12/27/21 Status: Ordered Tylenol Extra Strength 500 mg oral tablet 2 tablet = 1,000 mg, By Mouth, 3 times a day, PRN as needed for pain, # 100 tablet, 5 Refills, Maintenance, 12/07/21 10:44:00 EDT, Tablet, [facility]/pharmacy #[id number], Partial fill upon patient request if theprescription is for a schedule II opioid drug., 184... Start Date: 12/07/21 Status: Ordered valsartan 320 mg oral tablet 1 tablet, By Mouth, Daily, # 90 tablet, 3 Refills, Maintenance, 03/15/22 14:29:00 EDT, [id number], 183, cm, 02/08/22 6:42:00 EDT, Height, 123.2, [...] provided increased discomfort related to nerves. 3Seeing [place] neurology and sleep. Given a trial of Tegretol 200 mg upto 2 tablets twice a day andadvised to continue with Lyrica 300 mg twice a day. Had some improvement of the facial pain with this regimen. 4Seeing [place] neurology and asleep. On 09/11/2018 started on [...] on: 12/27/21 Sex Patient Care team information Personnel Name: Ivone Oneil MD Address: Address: [address] [place] [address]
--- OUTSIDE RECORDS SUMMARY | 2023-11-02 08:29 | XMS_ITS | Continuity of Care Document ---
Author Organization [facility] Address [address] [place] [address]- Care Team Providers Care Special Education Resource Teacher Name Role Phone Dayo Castano MD Primary Care Physician [phone] [facility]counter [facility] Date(s): 07/06/23 - 08/05/[address] [address]- Allergies, Adverse Reactions, Alerts Substance Reaction Severity [...] influenza virus vaccine, inactivated 04/16/15 Give n [id number] 12y+ bivalent booster vax 02/21/23 Given SARS-CoV-2 (COVID-19) mRNA BNT-162b2 vac 1 06/01/21 Given SARS-CoV-2 (COVID-19) mRNA BNT-162b2 vac 11/07/20 Recorded SARS-CoV-2 (COVID-19) mRNA BNT-162b2 vac 10/17/20 Recorded zoster vaccine, inactivated 06/18/19 Recorded zoster vaccine, inactivated 06/17/19 Recorded zoster vaccine, inactivated 11/25/17 Recorded Influenza Vaccine (oldterm) 02/17/17 Recorded pneumococcal 23-valent vaccine 02/16/16 Given tetanus/diphtheria/pertussis, acel(Tdap) 11/25/14 Given 1Result Comment: DILUENT LOT#: [id number] EXP: 11/2022 MFG: FRESENSIUS Medications Albuterol (Eqv-ProAir [...] Mouth, Daily at bedtime, Rx'd by neurology ([facility]), # 30 tablet, 0 Refills, Maintenance, [...] 3 Refills, Maintenance, 04/04/23 8:44:00 EDT, Tablet, [facility]/pharmacy #[id number], Partial fill upon patient request if [...] Need length 99 months Please send to [facility], 01/21/21 13:20:00 EDT, Supply Start Date: 01/21/21 Status: Ordered carbidopa-levodopa 25 mg-100 mg oral tablet 1 tablet, By Mouth, 2 times a day, Rx'd by neurology at [facility], # 60 tablet, 0 Refills, Maintenance, 10/04/22 8:23:00 EDT, Tablet, Partial fill upon patient request if the prescription is for a schedule II opioid drug. Start Date: 10/04/22 Status: Ordered chlorthalidone 25 mg oral tablet 25 mg, 1, tablet, By Mouth, Daily in AM, Blood pressure, # 90 tablet, Refills 3, Tot. Refills 3, Maintenance, 04/04/23 8:45:00 EDT, Route to Pharmacy Electronically, [facility]/pharmacy #[id number], Partial fill upon patient request if [...] EDT, Supply Start Date: 01/27/21 Status: Ordered [facility] Advanced Healing Ointment 41% [facility] [...] 04/04/23 8:46:00 EDT, Route to Pharmacy Electronically, [facility]/pharmacy #[id number], 183, cm, 04/04/23 8:24:00 EDT, Height, [...] Gm, 5 Refills, Maintenance, 07/04/23 8:59:00 EST, [facility]/pharmacy #[id number], 30, APPLY TOPICALLY TO AFFECTED ARE [...] 0 Refills, Maintenance, 07/04/23 15:05:00 EST, Tablet, [facility]/pharmacy #[id number], Partial fill upon patient request if [...] at bedtime, Rx'd by neurology at [facility], 0 Refills, Maintenance, 10/04/22 8:24:00 EDT, Capsule, Partial fill upon patient request if the prescription is for a schedule II opioid drug. Start Date: 10/04/22 Status: Ordered loratadine 10 mg oral tablet 1, tablet, By Mouth, Daily, PRN, # 90 tablet, Refills 3, Tot. Refills 3, NEEDED FOR ALLERGIES, 04/04/23 8:42:00 EDT, Route to Pharmacy Electronically, [facility]/pharmacy #[id number], 183, cm, 04/04/23 8:24:00EDT, Height, 123.2, kg, 02/07/22 12:47:00 EDT, Dry... Start Date: 04/04/23 Status: Ordered Metamucil 3.4 gm/5.2 gm oral powder for reconstitution = 3.4 Gm, By Mouth, 3 times a day, PRN as needed for constipation, # 425 Gm, 11 Refills, Maintenance, 09/12/22 20:51:00 EDT, REC Powder, [facility]/pharmacy #[id number], Partial fill upon patient request if [...] SMOKING CESSATION, # 40 gum, 0 Refills, [id number], 184, cm, 12/27/21 11:50:00 EDT, Height Start [...] Stop 03/29/24 8:46:00 EDT, 04/04/23 8:46:00 EDT, [facility]/pharmacy #[id number], 1 capsule By Mouth 2 times a day,x90 days, 183, cm, 04/04/23 8:24:00 EDT, Height, 123.2, kg, 2... Start Date: 04/04/23 Stop Date: 03/29/24 Status: Ordered omeprazole 20 mg oral enteric coated capsule 1 capsule, By Mouth, Daily, # 90 capsule, 3 Refills, Maintenance, 04/04/23 8:46:00 EDT, [facility]/pharmacy #[id number], 183, cm, 04/04/23 8:24:00 EDT, Height, [...] Gm, 1 Refills, Maintenance, 04/04/23 8:46:00 EDT, [facility]/pharmacy #[id number], 14,DISSOLVE 17 GRAMS IN WATER & DRINK ONCE A DAY UNTIL BM,... Start Date: 04/04/23 Status: Ordered pregabalin 300 mg oral capsule 1 capsule = 300 mg, By Mouth, 2 times a day, Rx'd by neurology at [facility], # 60 capsule, 0 Refills, Maintenance, 10/04/22 8:24:00 EDT, Capsule, Partial fill upon patient request if the prescription is for a schedule II opioid drug. Start Date: 10/04/22 Status: Ordered primidone 50 mg oral tablet 100 mg, 2, tablet, By Mouth, 2 times a day, rx'd by neurology at [facility], # 120 tablet, Refills 0, Maintenance, [...] a day, Rx'd by neurology at [facility], # 270 tablet, 0 Refills, Maintenance, [...] please send to [facility], 08/08/22 15:41:00 EST, Supply Start Date: 08/08/22 Status: Ordered Symbicort 160mcg/4.5mcg Inhaler 2, puffs, Inhalation, 2 times a day, # 6 Gm, Refills 11, Tot. Refills 11, Maintenance, 04/04/23 8:44:00 EDT, Aerosol, Route to Pharmacy Electronically, [id number], [facility]/pharmacy #[id number], 183, cm, 04/04/23 8:24:00 EDT, Height, [...] 11 Refills, Maintenance, 04/04/23 8:43:00 EDT, Tablet, [facility]/pharmacy #[id number], Partial fill upon patient request if [...] is for... Start Date: 02/15/23 Stop Date: 10/29/23 Status: Ordered Problem List Condition Confirmation Course [...] provided increased discomfort related to nerves. 3Seeing [place] neurology and sleep. Given a trial of [...] Care Team Personnel Name: Olimpia Parker Position: [facility] JUAN Office Staff Member Role: Lifetime Consulting Physician Name: Dayo Castano MD Position: [facility] Physician - Primary Care Member Role: PCP Address: Address: [address] [place] [address]- Care Team Related Persons Name: JARROD BRADFORD Address: home [address] [place] [address] Name: LOLA BRADFORD Address: home [address] [place] [address] Name: GOLDIE LERMA Address: [place] [address] Name: FLORENTIN OLIMPIA Address: [place] [address] Name: KADE LERMA Address: [address] [place] [address] Name: KADE LERMA Address: home [address] [place] [address]
--- OUTSIDE RECORDS SUMMARY | 2023-11-02 08:29 | XMS_ITS | Continuity of Care Document ---
Author Organization [facility] Address [address] [place] [address]- Care Team Providers Care Event Producer Name Role Phone Contractor Krystal FERNANDEZ Primary Care Physician [phone] [facility]counter [facility] Date[facility]s): 01/27/21 - 02/26/[address] [address]- Allergies, Adverse Reactions, Alerts Substance Reaction Severity [...] 10/30/20 15:08:00 EDT, Route to Pharmacy Electronically, [facility]/pharmacy #[id number], 184, cm, 10/30/20 14:15:00 EDT, Height, 123.27, kg, 06/25/19 13:22:00 EST, Dry Weight Start Date: 10/30/20 Status: Ordered aspirin 81 mg oral delayed release tablet 81 mg, 1, tablet, By Mouth, Daily, # 90 tablet, Refills 0, Tot. Refills 0, Maintenance, 01/01/21 11:26:00 EDT, Route to Pharmacy Electronically, [facility]/pharmacy #[id number], Partial fill upon [...] Need length 99 months Please send to [facility], 01/21/21 13:20:00 EDT, Supply Start Date: 01/21/21 Status: Ordered Claritin 10 mg oral tablet 10 mg, 1, tablet, By Mouth, Daily, # 30 tablet, Refills 3, Tot. Refills 3, Maintenance, 01/29/21 9:13:00 EDT, Route to Pharmacy Electronically, [facility]/pharmacy #[id number], 184, cm, 01/29/21 9:06:00 [...] 08/02/23 13:12:00 EST, Route to Pharmacy Electronically, [facility]/pharmacy #[id number], 184, cm, 01/01/21 10:56:00 [...] 3 Refills, Maintenance, 01/01/21 11:24:00 EDT, Tablet, [facility]/pharmacy #[id number], 184, cm, 01/01/21 10:56:00 EDT, Height, 123.27, kg, 06/25/19 13:22:00 EST, Dry Weight Start Date: 01/01/21 Status: Ordered docusate sodium 100 mg oral tablet 1 tablet = 100 mg, By Mouth, 2 times a day, PRN for constipation, # 60 tablet, 5 Refills, Maintenance, 01/11/21 15:23:00 EDT, Tablet, [facility]/pharmacy #[id number], Partial fill upon patient request if the prescription is for a schedule II opioid drug., 184, cm,... Start Date: 01/11/21 Status: Ordered fluticasone 50 mcg/inh nasal spray See Instructions, USE 1 SPRAY IN EACH NOSTRIL EVERY MORNING, # 16 mL, 3 Refills, 01/29/21 9:11:00 EDT, [facility]/pharmacy #[id number], 30, USE 1 SPRAY [...] 2 Refills, Maintenance, 02/10/21 13:09:00 EDT, Ointment, [facility]/pharmacy #[id number], Partial fill upon patient request if the prescription is for a schedule II opioid drug., 1 application Top... Start Date: 02/10/21 Status: Ordered metFORMIN 500 mg oral tablet 1 tablet = 500 mg, By Mouth, Daily, with meals, # 90 tablet, 11 Refills, Maintenance, 01/01/21 11:24:00 EDT, Tablet, [facility]/pharmacy #[id number], 184, cm, 01/01/21 10:56:00 EDT, Height, 123.27, kg, 06/25/19 13:22:00 EST, Dry Weight Start Date: 01/01/21 Status: Ordered omega-3 polyunsaturated fatty acids ethyl esters 1000 mg oral capsule 1 capsule = 1,000 mg, By Mouth, 2 times a day, # 60 capsule, 11 Refills, Maintenance, 01/01/21 11:25:00 EDT, Capsule, [facility]/pharmacy #[id number], 1 capsule By Mouth 2 times a day,x30 days, 184, cm, 01/01/21 10:56:00 EDT, Height, 123.27, kg, 06/25/19 13:22:00... Start Date: 01/01/21 Stop Date: 12/27/21 Status: Ordered omeprazole 20 mg oral enteric coated capsule 1 capsule = 20 mg, By Mouth, Daily, # 30 capsule, 2 Refills, Maintenance, 02/24/21 9:28:00 EDT, EC Capsule, [facility]/pharmacy #[id number], 184, cm, 02/03/21 10:57:00 EDT, Height, [...] please send to [facility], 01/21/21 13:20:00 EDT, Supply Start Date: 01/21/21 Status: Ordered sulindac 150 mg oral tablet See Instructions, TAKE 1 TABLET BY MOUTH TWICE A DAY NEEDED FOR PAIN, # 28 tablet, 0 Refills, Maintenance, [facility], 184, cm, 02/01/21 10:51:00 EDT, Height, 123.27, [...] 0 Refills, Maintenance, 02/18/21 8:37:00 EDT, Tablet, [facility]/pharmacy #[id number], Partial fill upon patient request if the [...] provided increased discomfort related to nerves. 3Seeing [place] neurology and sleep. Given a trial of Tegretol 200 mg upto 2 tablets twice a day andadvised to continue with Lyrica 300 mg twice a day. Had some improvement of the facial pain with this regimen. 4Seeing [place] neurology and asleep. On 09/11/2018 started on [...]
--- OUTSIDE RECORDS SUMMARY | 2023-11-02 08:29 | XMS_ITS | Continuity of Care Document ---
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 Start Date: 03/03/21 Status: Ordered aspirin 81 mg oral delayed release tablet 81 mg, 1, tablet, By Mouth, Daily, # 90 tablet, Refills 0, Tot. Refills 0, Maintenance, 01/01/21 11:26:00 EDT, Route to Pharmacy Electronically, [facility]/pharmacy #[id number], Partial fill upon patient [...] Need length 99 months Please send to [facility], 01/21/21 13:20:00 EDT, Supply Start Date: 01/21/21 Status: Ordered carbidopa-levodopa 25 mg-100 mg oral tablet 1 tablet, By Mouth, 3 times a day, Rx'd by Neurology at [facility] [place]/ Dr. Murphy, # 270 tablet, 0 Refills, Maintenance, 04/15/21 23:30:00 EDT, Tablet, Partial fill upon patient request if the prescription is for a schedule II opioid drug. Start Date: 04/15/21 Status: Ordered chlorthalidone 25 mg oral tablet 1, tablet, By Mouth, Daily, # 30 tablet, Refills 5, Route to Pharmacy Electronically, [id number], 184, cm, 03/30/21 16:08:00 EDT, Height, 123.27, kg, 06/25/19 13:22:00 EST, Dry Weight Start Date: 04/07/21 Status: Ordered Claritin 10 mg oral tablet 10 mg, 1, tablet, By Mouth, Daily, more sea necesario para alergia, # 30 tablet, Refills 5, Tot. Refills 5, Maintenance, 04/13/21 10:04:00 EDT, Route to Pharmacy Electronically, [facility]/pharmacy #[id number], 184, cm, 04/13/21 9:26:00 EDT, Height, 123.27, kg, 01... Start Date: 04/13/21 Status: Ordered clonazePAM 2 mg oral tablet 1 tablet = 2 mg, By Mouth, Daily, # 20 tablet, 0 Refills, Maintenance, 04/22/21 15:54:00 EDT, [facility]/pharmacy #[id number], Partial fill upon patient [...] 0 Refills, Maintenance, 03/03/21 17:36:00 EDT, Cream, [facility]/pharmacy #[id number], Partial fill upon patient request if the prescription is for a schedule II opioid drug., 1 application Topically 3 ti... Start Date: 03/03/21 Status: Ordered cyanocobalamin 1000 mcg oral tablet 1,000 mcg, 1, tablet, By Mouth, Daily, # 90 tablet, Refills 11, Tot. Refills 11, Maintenance, 08/02/23 13:12:00 EST, Route to Pharmacy Electronically, [facility]/pharmacy #[id number], 184, cm, 01/01/21 10:56:00 [...] 5 Refills, Maintenance, 01/11/21 15:23:00 EDT, Tablet, [facility]/pharmacy #[id number], Partial fill upon patient request if the prescription is for a schedule II opioid drug., 184, cm,... Start Date: 01/11/21 Status: Ordered escitalopram 5 mg oral tablet 1 tablet = 5 mg, By Mouth, Daily, This is a decrease in dose, # 14 tablet, 0 Refills, Maintenance, 04/05/21 15:54:00 EDT, Tablet, [facility]/pharmacy #[id number], Partial fill upon patient request if the prescription is for a schedule II opioid drug., 184, cm, ... Start Date: 04/05/21 Stop Date: 04/19/21 Status: Ordered fluticasone 50 mcg/inh nasal spray See Instructions, USE 1 SPRAY IN EACH NOSTRIL EVERY MORNING, # 16 mL, 3 Refills, 01/29/21 9:11:00 EDT, [facility]/pharmacy #[id number], 30, USE 1 SPRAY [...] 2 Refills, Maintenance, 02/10/21 13:09:00 EDT, Ointment, [facility]/pharmacy #[id number], Partial fill upon patient request if the prescription is for a schedule II opioid drug., 1 application Top... Start Date: 02/10/21 Status: Ordered magnesium oxide 400 mg oral tablet 1 tablet = 400 mg, By Mouth, Daily, Rx'd by Neurology at [facility] [place]/ Dr. Murphy, 0 Refills, Maintenance, 04/15/21 23:30:00 [...] 3 Refills, Maintenance, 03/03/21 17:29:00 EDT, Tablet, [facility]/pharmacy #[id number], Partial fill upon p... Start Date: 03/03/21 Status: Ordered omega-3 polyunsaturated fatty acids ethyl esters 1000 mg oral capsule 1 capsule = 1,000 mg, By Mouth, 2 times a day, # 60 capsule, 11 Refills, Maintenance, 01/01/21 11:25:00 EDT, Capsule, [facility]/pharmacy #[id number], 1 capsule By Mouth 2 [...] Maintenance, DX: [id number]. [id number] please send to [facility], 01/21/21 13:20:00 EDT, Supply Start Date: 01/21/21 Status: Ordered sulindac 150 mg oral tablet See Instructions, TAKE 1 TABLET BY MOUTH TWICE A DAY NEEDED FOR PAIN, # 28 tablet, 0 Refills, Maintenance, [facility], 184, cm, 02/01/21 10:51:00 EDT, Height, 123.27, [...] provided increased discomfort related to nerves. 3Seeing [place] neurology and sleep. Given a trial of Tegretol 200 mg upto 2 tablets twice a day andadvised to continue with Lyrica 300 mg twice a day. Had some improvement of the facial pain with this regimen. 4Seeing [place] neurology and asleep. On 09/11/2018 started on [...]
--- OUTSIDE RECORDS SUMMARY | 2023-11-02 08:29 | XMS_ITS | Continuity of Care Document ---
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 Phone Contractor Krystal FERNANDEZ Primary Care Physician Encounter [facility] Date(s): 06/10/21 - 07/10/[address] [address]- Allergies, Adverse Reactions, Alerts Substance Reaction Severity [...] acel(Tdap) 11/25/14 Given 1Result Comment: DILUENT LOT#: [id number] EXP: 11/2022 MFG: FRESENSIUS Medications amitriptyline 100 mg oral tablet 1 tablet = 100 mg, By Mouth, Daily at bedtime, # 30 tablet, 3 Refills, Maintenance, 04/13/21 10:02:00 EDT, Tablet, [facility]/pharmacy #[id number], [...] 01/01/21 11:26:00 EDT, Route to Pharmacy Electronically, [facility]/pharmacy #[id number], Partial fill [...] Need length 99 months Please send to [facility], 01/21/21 13:20:00 EDT, Supply Start Date: 01/21/21 Status: Ordered carbidopa-levodopa 25 mg-100 mg oral tablet 1 tablet, By Mouth, 3 times a day, Rx'd by Neurology at [facility] [place]/ Dr. Murphy, # 270 tablet, 0 Refills, Maintenance, 04/15/21 23:30:00 EDT, Tablet, Partial fill upon patient request if the prescription is for a schedule II opioid drug. Start Date: 04/15/21 Status: Ordered chlorthalidone 25 mg oral tablet 1, tablet, By Mouth, Daily, # 30 tablet, Refills 5, Route to Pharmacy Electronically, [facility] [id number], 184, cm, 03/30/21 16:08:00 EDT, Height, 123.27, kg, 06/25/19 13:22:00 EST, Dry Weight Start Date: 04/07/21 Status: Ordered Claritin 10 mg oral tablet 10 mg, 1, tablet, By Mouth, Daily, more sea necesario para alergia, # 30 tablet, Refills 5, Tot. Refills 5, Maintenance, 04/13/21 10:04:00 EDT, Route to Pharmacy Electronically, [facility]/pharmacy #[id number], 184, cm, 04/13/21 9:26:00 EDT, Height, 123.27, kg, 01... Start Date: 04/13/21 Status: Ordered clonazePAM 2 mg oral tablet See Instructions, 1 tablet by mouth only NEEDED for severe panic attack. Dispense: #20 tabs per 30d., # 20 tablet, 0 Refills, Maintenance, 06/22/21 15:50:00 EST, Tablet, [facility]/pharmacy #[id number], [...] 0 Refills, Maintenance, 03/03/21 17:36:00 EDT, Cream, [facility]/pharmacy #[id number], Partial fill [...] 5 Refills, Maintenance, 01/11/21 15:23:00 EDT, Tablet, [facility]/pharmacy #[id number], Partial fill upon patient request if the prescription is for a schedule II opioid drug., 184, cm,... Start Date: 01/11/21 Status: Ordered escitalopram 10 mg oral tablet 2 tablet = 20 mg, By Mouth, Daily, Dose increased by psychiatrist 07/09/20, # 180 tablet, 5 Refills,Maintenance, 07/09/21 11:36:00 EST, Tablet, [facility]/pharmacy #[id number], Partial fill upon patient request if the prescription is for a schedule II opioid drug.... Start Date: 07/09/21 Status: Ordered fluticasone 50 mcg/inh nasal spray See Instructions, USE 1 SPRAY IN EACH NOSTRIL EVERY MORNING, # 16 mL, 3 Refills, 01/29/21 9:11:00 EDT, [facility]/pharmacy #[id number], 30, USE 1 [...] By Mouth, Daily, Rx'd by Neurology at [facility] [place]/ Dr. Murphy, 0 Refills, Maintenance, 04/15/21 23:30:00 [...] Topically, Daily, for 6 week(s), Rx in Faroese, # 42 patch, 1 Refills, Acute 08/16/21 16:13:00 EST, 05/24/21 16:13:00 EST, Patch, [facility]/pharmacy #[id number], Partial fill upon patient request if theprescription is for a schedule II opioid drug., 1 p... Start Date: 05/24/21 Stop Date: 08/16/21 Status: Ordered omega-3 polyunsaturated fatty acids ethyl esters 1000 mg oral capsule 1 capsule = 1,000 mg, By Mouth, 2 times a day, # 60 capsule, 11 Refills, Maintenance, 01/01/21 11:25:00 EDT, Capsule, [facility]/pharmacy #[id number], 1 capsule By Mouth 2 times a day,x30 days, 184, cm, 01/01/21 10:56:00 EDT, Height, 123.27, kg, 06/25/19 13:22:00... Start Date: 01/01/21 Stop Date: 12/27/21 Status: Ordered omeprazole 20 mg oral enteric coated capsule 1 capsule, By Mouth, Daily, # 90 capsule, 0 Refills, [facility] 240[facility], 184, cm, 06/14/21 11:01:00 EST, Height, 123.27, [...] Maintenance, DX: M51. 26 please send to [facility], 01/21/21 13:20:00 EDT, Supply Start Date: 01/21/21 Status: Ordered sulindac 150 mg oral tablet See Instructions, TAKE 1 TABLET BY MOUTH TWICE A DAY NEEDED FOR PAIN, # 28 tablet, 0 Refills, Maintenance, [facility], 184, cm, 02/01/21 10:51:00 EDT, Height, 123.27, kg, 06/25/19 13:22:00 EST, Dry Weight Start Date: 02/01/21 Status: Ordered Tylenol Extra Strength 500 mg oral tablet 2 tablet = 1,000 mg, By Mouth, 3 times a day, PRN as needed for pain, # 100 tablet, 5 Refills, Maintenance, 04/13/21 10:08:00 EDT, Tablet, [facility]/pharmacy #[id number], [...] provided increased discomfort related to nerves. 3Seeing [place] neurology and sleep. Given a trial of Tegretol 200 mg upto 2 tablets twice a day andadvised to continue with Lyrica 300 mg twice a day. Had some improvement of the facial pain with this regimen. 4Seeing [place] neurology and asleep. On 09/11/2018 started on [...]
--- OUTSIDE RECORDS SUMMARY | 2023-11-02 08:29 | XMS_ITS | Continuity of Care Document ---
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 Phone Dayo Castano MD Primary Care Physician Encounter [facility] Date(s): 07/18/23 - 08/17/[address] [address]- Allergies, Adverse Reactions, Alerts Substance Reaction Severity [...] influenza virus vaccine, inactivated 04/16/15 Give n [id number] 12y+ bivalent booster vax 02/21/23 Given SARS-CoV-2 (COVID-19) mRNA BNT-162b2 vac 1 06/01/21 Given SARS-CoV-2 (COVID-19) mRNA BNT-162b2 vac 11/07/20 Recorded SARS-CoV-2 (COVID-19) mRNA BNT-162b2 vac 10/17/20 Recorded zoster vaccine, inactivated 06/18/19 Recorded zoster vaccine, inactivated 06/17/19 Recorded zoster vaccine, inactivated 11/25/17 Recorded Influenza Vaccine (oldterm) 02/17/17 Recorded pneumococcal 23-valent vaccine 02/16/16 Given tetanus/diphtheria/pertussis, acel(Tdap) 11/25/14 Given 1Result Comment: DILUENT LOT#: [id number] EXP: 11/2022 MFG: FRESENSIUS Medications Albuterol (Eqv-ProAir [...] Mouth, Daily at bedtime, Rx'd by neurology ([facility]), # 30 tablet, 0 Refills, Maintenance, [...] Need length 99 months Please send to [facility], 01/21/21 13:20:00 EDT, Supply Start Date: 01/21/21 Status: Ordered carbidopa-levodopa 25 mg-100 mg oral tablet 1 tablet, By Mouth, 2 times a day, Rx'd by neurology at [facility], # 60 tablet, 0 Refills, Maintenance, 10/04/22 8:23:00 EDT, Tablet, Partial fill upon patient request if the prescription is for a schedule II opioid drug. Start Date: 10/04/22 Status: Ordered chlorthalidone 25 mg oral tablet 25 mg, 1, tablet, By Mouth, Daily in AM, Blood pressure, # 90 tablet, Refills 3, Tot. Refills 3, Maintenance, 04/04/23 8:45:00 EDT, Route to Pharmacy Electronically, [facility]/pharmacy [...] 10/06/23 14:26:00 EDT, 08/07/23 14:26:00 EST, Cream, [facility]/pharmacy #[id number], Partial fill upon [...] 04/04/23 8:46:00 EDT, Route to Pharmacy Electronically, [facility]/pharmacy #[id number], 183, cm, 04/04/23 8:24:00 EDT, [...] Gm, 5 Refills, Maintenance, 07/04/23 8:59:00 EST, [facility]/pharmacy #[id number], 30, APPLY TOPICALLY TO AFFECTED [...] Daily at bedtime, Rx'd by neurology at [facility], 0 Refills, Maintenance, 10/04/22 8:24:00 EDT, Capsule, Partial fill upon patient request if the prescription is for a schedule II opioid drug. Start Date: 10/04/22 Status: Ordered loratadine 10 mg oral tablet 1, tablet, By Mouth, Daily, PRN, # 90 tablet, Refills 3, Tot. Refills 3, NEEDED FOR ALLERGIES, 04/04/23 8:42:00 EDT, Route to Pharmacy Electronically, [facility]/pharmacy #[id number], 183, cm, 04/04/23 8:24:00EDT, Height, [...] SMOKING CESSATION, # 40 gum, 0 Refills, [facility] 69542, 184, cm, 12/27/21 11:50:00 EDT, Height Start [...] Gm, 1 Refills, Maintenance, 04/04/23 8:46:00 EDT, [facility]/pharmacy #[id number], 14,DISSOLVE 17 GRAMS IN WATER & DRINK ONCE A DAY UNTIL BM,... Start Date: 04/04/23 Status: Ordered pregabalin 300 mg oral capsule 1 capsule = 300 mg, By Mouth, 2 times a day, Rx'd by neurology at [facility], # 60 capsule, 0 Refills, Maintenance, 10/04/22 8:24:00 EDT, Capsule, Partial fill upon patient request if the prescription is for a schedule II opioid drug. Start Date: 10/04/22 Status: Ordered primidone 50 mg oral tablet 100 mg, 2, tablet, By Mouth, 2 times a day, rx'd by neurology at [facility], # 120 tablet, Refills 0, [...] times a day, Rx'd by neurology at [facility], # 270 tablet, 0 Refills, Maintenance, 10/04/22 [...] 26 please send to [facility], 08/08/22 15:41:00 EST, Supply Start Date: 08/08/22 Status: Ordered Symbicort 160mcg/4.5mcg Inhaler 2, puffs, Inhalation, 2 times a day, # 6 Gm, Refills 11, Tot. Refills 11, Maintenance, 08/07/23 14:39:00 EST, Aerosol, Route to Pharmacy Electronically, [id number], [id number], 183, cm, 08/07/23 14:26:00 EST, [...] Refills, Maintenance, 02/15/23 11:23:00 EDT, Aerosol, [id number], Partial fill upon patient request if [...] provided increased discomfort related to nerves. 3Seeing [place] neurology and sleep. Given a trial of [...] Team Personnel Name: Olimpia Parker Position: [facility] Office Staff Member Role: Lifetime Consulting Physician Name: Dayo Castano MD Position: [facility] Physician - Primary Care Member Role: PCP Address: Address: [address] [place] [address]- Care Team Related Persons Name: JARROD BRADFORD Address: home [address] [place] [address] Name: MURRAYYARA SZYMANSKISY Address: home [address] [place] [address] Name: GOLDIE LERMA Address: [place] [address] Name: OLIMPIA LERMA Address: [place] [address] Name: KADE LERMA Address: home [address] [place] [id number] Name: KADE LERMA Address: home [address] [place] [address]
--- OUTSIDE RECORDS SUMMARY | 2023-11-02 08:30 | XMS_ITS | Continuity of Care Document ---
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 Contractor Krystal FERNANDEZ Primary Care Physician Encounter [facility] Date(s): 07/30/21 - 11/11/21 [facility] [address] [place] [address]- Attending Physician: Aly Weiss MD Admitting Physician: Aly Weiss MD Referring Physician: Contractor Krystal FERNANDEZ Allergies, [...] acel(Tdap) 11/25/14 Given 1Result Comment: DILUENT LOT#: [id number] EXP: 11/2022 MFG: FRESENSIUS Medications amitriptyline 100 [...] 3 Refills, Maintenance, 03/03/21 17:24:00 EDT, Tablet, [facility]/pharmacy #[id number], Partial fill upo... [...] 0 Refills, Maintenance, 09/15/21 12:17:00 EDT, Tablet, [id number], Partial fill upon [...] 06/27/16 11:24:23,... Start Date: 06/27/16 Status: Ordered bisacodyl 5 mg oral delayed release tablet 1 tablet = 5 mg, By Mouth, Daily, PRN as needed for constipation, # 20 tablet, 0 Refills, Acute 11/28/21 11:11:00 EDT, 10/28/21 11:11:00 EDT, CR Tablet, [facility]/pharmacy #[id number], Partial fill upon patient request if the prescription is for a schedule II opi... Start Date: 10/28/21 Stop Date: 11/28/21 Status: Ordered Blood Pressure Monitor See Instructions, [...] Need length 99 months Please send to [facility], 01/21/21 13:20:00 EDT, Supply Start Date: 01/21/21 Status: Ordered carbidopa-levodopa 25 mg-100 mg oral tablet 1 tablet, By Mouth, 3 times a day, Rx'd by Neurology at [facility]/ Dr. Murphy, # 270 tablet, 0 Refills, Maintenance, 04/15/21 23:30:00 EDT, Tablet, Partial fill upon patient request if the prescription is for a schedule II opioid drug. Start Date: 04/15/21 Status: Ordered chlorthalidone 25 mg oral tablet 1, tablet, By Mouth, Daily, # 30 tablet, Refills 5, Tot. Refills 5, 04/12/22 8:08:00 EDT, Route to Pharmacy Electronically, [facility]/pharmacy #[id number], 184, cm, 09/15/21 9:12:00 EDT, Height Start Date: 09/28/21 Status: Ordered clonazePAM 2 mg oral tablet See Instructions, 1 tablet by mouth only NEEDED for severe panic attack. Dispense: #20 tabs per 20d., # 20 tablet, 0 Refills, Maintenance, 08/18/21 15:21:00 EST, Tablet, [facility]/pharmacy [...] 0 Refills, Maintenance, 10/07/21 20:16:00 EDT, Cream, [facility]/pharmacy #[id number], Partial fill upon patient request if the prescription is for a schedule II opioid drug., 1 application Topically 3 ti... Start Date: 10/07/21 Status: Ordered cyanocobalamin 1000 mcg oral tablet 1,000 mcg, 1, tablet, By Mouth, Daily, # 90 tablet, Refills 11, Tot. Refills 11, Maintenance, 07/17/26 13:12:00 EST, Route to Pharmacy Electronically, [facility]/pharmacy #[id number], 184, cm, 07/26/21 9:11:00 EST, Height Start Date: 07/17/26 Stop Date: 07/01/29 Status: Ordered cyanocobalamin 1000 mcg oral tablet 1,000 mcg, 1, tablet, By Mouth, Daily, for 90 days, # 90 tablet, Refills 11, Tot. Refills 11, Hard Stop 07/17/26 13:12:00 EST, 08/02/23 13:12:00 EST, Route to Pharmacy Electronically, [facility]/pharmacy #[id number], 184, cm, 01/01/21 [...] 5 Refills, Maintenance, 10/07/21 20:16:00 EDT, Tablet, [facility]/pharmacy #[id number], Partial fill upon patient request if the prescription is for a schedule II opioid drug., 184, cm,... Start Date: 10/07/21 Status: Ordered escitalopram 20 mg oral tablet 1 tablet = 20 mg, By Mouth, Daily, # 30 tablet, 3 Refills, Maintenance, 07/13/21 12:26:00 EST, Tablet, [facility]/pharmacy #[id number], d/c citalopram 10 mg, 184, cm, 06/14/21 11:01:00 EST, Height Start Date: 07/13/21 Status: Ordered fluticasone 50 mcg/inh nasal spray See Instructions, USE 1 SPRAY IN EACH NOSTRIL EVERY MORNING, # 16 mL, 3 Refills, 01/29/21 9:11:00 EDT, [facility]/pharmacy #[id number], 30, USE 1 [...] 2 Refills, Maintenance, 11/02/21 14:30:00 EDT, Ointment, [facility]/pharmacy #[id number], Partial fill upon patient request if the prescription is for a schedule II opioid drug., 1 application Top... Start Date: 11/02/21 Status: Ordered loratadine 10 mg oral tablet 1, tablet, By Mouth, Daily, PRN, # 90 tablet, Refills 1, NEEDED FOR ALLERGIES, Route to PharmacyElectronically, [facility] [id number], 184, cm, 10/18/21 13:37:00 EDT, Height Start Date: 10/22/21 Status: Ordered magnesium oxide 400 mg oral tablet 1 tablet = 400 mg, By Mouth, Daily, Rx'd by Neurology at [facility] [place]/ Dr. Murphy, 0 Refills, Maintenance, 04/15/21 23:30:00 [...] 11:13:00 EST, 10/28/21 11:13:00 EDT, REC Powder, [facility]/pharmacy #[id number], Partial [...] tablet, 3 Refills, Maintenance, 09/16/2211:15:00 EDT, Tablet, [facility]/pharmacy #[id number], Partial f... Start Date: 09/15/21 Status: Ordered omega-3 polyunsaturated fatty acids ethyl esters 1000 mg oral capsule 1 capsule = 1,000 mg, By Mouth, 2 times a day, # 60 capsule, 11 Refills, Maintenance, 12/27/21 11:25:00 EDT, Capsule, [facility]/pharmacy #[id number], 1 [...] 12/27/21 11:25:00 EDT, 01/01/21 11:25:00 EDT, Capsule, [facility]/pharmacy #[id number], 184, cm, 01/01/21 10:56:00 EDT, Height, 123.27, kg, 06/25/19 13:22:00 EST, Dry W... Start Date: 01/01/21 Stop Date: 12/27/21 Status: Ordered omeprazole 20 mg oral enteric coated capsule 1 capsule, By Mouth, Daily, # 90 capsule, 0 Refills, 09/28/21 8:05:00 EDT, [id number], 184,cm, 09/15/21 9:12:00 EDT, Height Start Date: 09/28/21 Status: Ordered pregabalin 300 mg oral capsule 1 capsule = 300 mg, By Mouth, 2 times a day, PRN pain, one tab twice daily prn pain, # 60 capsule, 0 Refills, Maintenance, 06/29/21 15:41:00 EST, Capsule, [facility]/pharmacy #[id number], Partial fill upon patient request if the prescription is for a schedule II o... Start Date: 06/29/21 Stop Date: 07/29/21 Status: Ordered Shower Chair See Instructions, # 1 each, Refills 0, Tot. Refills 0, Maintenance, DX: M51. 26 please send to [facility], 01/21/21 13:20:00 EDT, Supply Start Date: 01/21/21 Status: Ordered sulindac 150 mg oral tablet See Instructions, TAKE 1 TABLET BY MOUTH TWICE A DAY NEEDED FOR PAIN, # 28 tablet, 0 Refills, Maintenance, [facility], 184, cm, 02/01/21 10:51:00 EDT, Height, 123.27, [...] provided increased discomfort related to nerves. 3Seeing [place] neurology and sleep. Given a trial of Tegretol 200 mg upto 2 tablets twice a day andadvised to continue with Lyrica 300 mg twice a day. Had some improvement of the facial pain with this regimen. 4Seeing [place] neurology and asleep. On 09/11/2018 started on [...]
--- OUTSIDE RECORDS SUMMARY | 2023-11-02 08:30 | XMS_ITS | Continuity of Care Document ---
Author Organization [facility] Address [address] [place] [address]- Care Team Providers Care Radio Frequency Technician Name Role Phone Ivone Oneil MD Primary Care Physician Encounter [facility] Date(s): 02/02/22 - 03/05/[address] [address]- Attending Physician: Tianna Felix MD Admitting Physician: Tianna Felix MD Allergies, Adverse Reactions, Alerts Substance Reaction [...] acel(Tdap) 11/25/14 Given 1Result Comment: DILUENT LOT#: [id number] EXP: 11/2022 MFG: FRESENSIUS Medications amitriptyline 100 [...] length 99 months Please send to [facility], 01/21/21 13:20:00 EDT, Supply Start Date: 01/21/21 [...] 0 Refills, Maintenance, 08/18/21 15:21:00 EST, Tablet, [facility]/pharmacy #[id number], Partial fill upon patient request if the [...] 07/17/26 13:12:00 EST, Route to Pharmacy Electronically, [facility]/pharmacy #[id number], 184, cm, 07/26/21 9:11:00 EST, Height Start Date: 07/17/26 Stop Date: 07/01/29 Status: Ordered cyanocobalamin 1000 mcg oral tablet 1,000 mcg, 1, tablet, By Mouth, Daily, for 90 days, # 90 tablet, Refills 11, Tot. Refills 11, Hard Stop 07/17/26 13:12:00 EST, 08/02/23 13:12:00 EST, Route to Pharmacy Electronically, [facility]/pharmacy #[id number], 184, cm, 01/01/21 [...] 5 Refills, Maintenance, 10/07/21 20:16:00 EDT, Tablet, [facility]/pharmacy #[id number], Partial fill upon [...] 1, NEEDED FOR ALLERGIES, Route to PharmacyElectronically, [facility], 184, cm, 10/18/21 13:37:00 EDT, Height Start Date: 10/22/21 Status: Ordered magnesium oxide 400 mg oral tablet 1 tablet = 400 mg, By Mouth, Daily, Rx'd by Neurology at [facility]/ Dr. Murphy, 0 Refills, Maintenance, 04/15/21 23:30:00 [...] 11:13:00 EST, 10/28/21 11:13:00 EDT, REC Powder, [facility]/pharmacy #[id number], Partial fill upon [...] tablet, 3 Refills, Maintenance, 09/16/2211:15:00 EDT, Tablet, [facility]/pharmacy #[id number], Partial f... Start [...] SMOKING CESSATION, # 40 gum, 0 Refills, [facility], 184, cm, 12/27/21 11:50:00 EDT, Height Start Date: 02/01/22 Status: Ordered omega-3 polyunsaturated fatty acids ethyl esters 1000 mg oral capsule 1 capsule, By Mouth, 2 times a day, # 180 capsule, 3 Refills, [facility], 90, TAKE 1 CAPSULE BY MOUTH TWICE A DAY, 183, cm, 02/08/22 6:42:00 EDT, Height, 123.2, kg, 02/07/22 12:47:00 EDT, Dry Weight Start Date: 02/09/22 Status: Ordered omeprazole 20 mg oral enteric coated capsule 1 capsule, By Mouth, Daily, # 90 capsule, 0 Refills, Maintenance, 02/14/22 21:23:00 EDT, [facility], 183, cm, 02/08/22 6:42:00 EDT, Height, 123.2, [...] 0 Refills, Maintenance, 06/29/21 15:41:00 EST, Capsule, [facility]/pharmacy #[id number], Partial fill upon patient request if the prescription is for a schedule II o... Start Date: 06/29/21 Stop Date: 07/29/21 Status: Ordered primidone 50 mg oral tablet 100 mg, 2, tablet, By Mouth, 3 times a day, Rx'd by Neurology at [facility]/ Dr. Murphy, Refills 0, [...] DX: M51. 26 please send to [facility], 01/21/21 13:20:00 EDT, Supply Start Date: 01/21/21 Status: Ordered Symbicort 160mcg/4.5mcg Inhaler 2, puffs, Inhalation, 2 times a day, # 6 Gm, Refills 0, Tot. Refills 0, Maintenance, 12/27/21 12:43:00 EDT, Aerosol, Route to Pharmacy Electronically, [id number], [facility]/pharmacy #[id number], 184, cm, 12/27/21 [...] provided increased discomfort related to nerves. 3Seeing [place] neurology and sleep. Given a trial of Tegretol 200 mg upto 2 tablets twice a day andadvised to continue with Lyrica 300 mg twice a day. Had some improvement of the facial pain with this regimen. 4Seeing [place] neurology and asleep. On 09/11/2018 started on [...] Team Personnel Name: Ivone Oneil MD Address: [address] [place] [address]-
--- OUTSIDE RECORDS SUMMARY | 2023-11-02 08:30 | XMS_ITS | Continuity of Care Document ---
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 Name Role Phone Contractor Krystal FERNANDEZ Primary Care Physician [phone] Encounter [facility] Date(s): 08/09/21 - 09/11/21 [facility] [address] [place], [place] [address] Attending Physician: Mireille LEGGETT, Stefanie Aldrich Admitting Physician: Stefanie Kendrick NP Allergies, Adverse Reactions, Alerts Substance Reaction Severity [...] acel(Tdap) 11/25/14 Given 1Result Comment: DILUENT LOT#: [id number] EXP: 11/2022 MFG: FRESENSIUS Medications amitriptyline 100 mg oral tablet 1 tablet = 100 mg, By Mouth, Daily at bedtime, # 30 tablet, 3 Refills, Maintenance, 08/11/21 10:02:00 EST, Tablet, [facility]/pharmacy #[id number], Partial [...] 09/14/21 9:39:00 EDT, 09/07/21 9:39:00 EDT, Tablet, [facility]/pharmacy #[id number], g., 1 tablet By Mouth [...] Need length 99 months Please send to [facility], 01/21/21 13:20:00 EDT, Supply Start Date: 01/21/21 Status: Ordered carbidopa-levodopa 25 mg-100 mg oral tablet 1 tablet, By Mouth, 3 times a day, Rx'd by Neurology at [facility] [place]/ Dr. Murphy, # 270 tablet, 0 Refills, Maintenance, 04/15/21 23:30:00 EDT, Tablet, Partial fill upon patient request if the prescription is for a schedule II opioid drug. Start Date: 04/15/21 Status: Ordered chlorthalidone 25 mg oral tablet 1, tablet, By Mouth, Daily, # 30 tablet, Refills 5, Route to Pharmacy Electronically, [facility] STORE [facility], 184, cm, 03/30/21 16:08:00 EDT, Height, 123.27, kg, 06/25/19 13:22:00 EST, Dry Weight Start Date: 04/07/21 Status: Ordered Claritin 10 mg oral tablet 10 mg, 1, tablet, By Mouth, Daily, more sea necesario para alergia, # 30 tablet, Refills 5, Tot. Refills 5, Maintenance, 04/13/21 10:04:00 EDT, Route to Pharmacy Electronically, [facility]/pharmacy #[id number], 184, cm, 04/13/21 9:26:00 EDT, Height, 123.27, kg, 01... Start Date: 04/13/21 Status: Ordered clonazePAM 2 mg oral tablet See Instructions, 1 tablet by mouth only NEEDED for severe panic attack. Dispense: #20 tabs per 20d., # 20 tablet, 0 Refills, Maintenance, 08/18/21 15:21:00 EST, Tablet, [facility]/pharmacy #[id number], Partial [...] 07/17/26 13:12:00 EST, Route to Pharmacy Electronically, [facility]/pharmacy #[id number], 184, cm, 07/26/21 [...] 3 Refills, Maintenance, 07/13/21 12:26:00 EST, Tablet, [facility]/pharmacy #[id number], d/c citalopram 10 [...] 13:09:00 EDT, Ointment, [facility]/pharmacy #[id number], Partial fill upon patient request if the prescription is for a schedule II opioid drug., 1 application Top... Start Date: 02/10/21 Status: Ordered magnesium oxide 400 mg oral tablet 1 tablet = 400 mg, By Mouth, Daily, [facility] Dr. Murphy, 0 Refills, Maintenance, 04/15/21 23:30:00 [...] 11 Refills, Maintenance, 12/27/21 11:25:00 EDT, Capsule, [facility]/pharmacy #[id number], 1 capsule By [...] Mouth, Daily, # 90 capsule, 0 Refills, [facility] 44[facility], 184, cm, 06/14/21 11:01:00 EST, Height, 123.27, [...] 28 tablet, 0 Refills, Maintenance, [facility], 184, cm, 02/01/21 10:51:00 EDT, Height, 123.27, [...] increased discomfort related to nerves. 3Seeing [place] neurology and sleep. Given a trial of Tegretol 200 mg upto 2 tablets twice a day andadvised to continue with Lyrica 300 mg twice a day. Had some improvement of the facial pain with this regimen. 4Seeing [place] neurology and asleep. On 09/11/2018 started on [...]
--- OUTSIDE RECORDS SUMMARY | 2023-11-02 08:30 | XMS_ITS | Continuity of Care Document ---
Author Organization [facility] Address [address] [place] [address]- Care Team Providers Care Commercial Front Load Operator Name Role Phone Ivone Oneil MD Primary Care Physician [phone] Encounter [facility] Date(s): 09/22/22 - 10/22/[address] [address]- Allergies, Adverse Reactions, Alerts Substance Reaction Severity [...] acel(Tdap) 11/25/14 Given 1Result Comment: DILUENT LOT#: [id number] EXP: 11/2022 MFG: FRESENSIUS Medications Aripiprazole 2 [...] 1 Refills, Maintenance, 05/13/22 14:40:00 EST, Tablet, [facility]/pharmacy #[id number], Partial fill upon patient request if the [...] Need length 99 months Please send to [facility], 01/21/21 13:20:00 EDT, Supply Start Date: [...] 08/23/22 8:42:00 EST, Route to Pharmacy Electronically, [facility]/pharmacy #[id number], Partial fill upon patient [...] 07/01/29 13:12:00 EST, Route to Pharmacy Electronically, [facility]/pharmacy #[id number], 183, cm, 08/22/22 8:28:00 EST,Height, [...] Gm, 2 Refills, Maintenance, 07/28/22 8:54:00 EST, [facility], 30, APPLY TOPICALLY TO AFFECTED ARE TWICE A DAY NEEDED FOR PAIN, 183, cm, 07/07/22 10:54:00 E... Start Date: 07/28/22 Status: Ordered empagliflozin 10 mg oral tablet 1 tablet = 10 mg, By Mouth, Daily in AM, # 30 tablet, 2 Refills, Maintenance, 08/23/22 8:44:00 EST,Tablet, [facility]/pharmacy #[id number], Partial fill upon patient request if the [...] 2 Refills, Maintenance, 08/23/22 8:44:00 EST, Tablet, [facility]/pharmacy #[id number], Label in [place]ong [place]ong[place], cetrizine not effective, 1 tablet By Mouth Daily in AM, 183, cm, 08/22/22 8:28:00 EST, Height, 123.2, kg,... Start Date: 08/23/22 Status: Ordered loratadine 10 mg oral tablet 1, tablet, By Mouth, Daily, PRN, # 90 tablet, Refills 1, NEEDED FOR ALLERGIES, Route to PharmacyElectronically, [facility], 184, cm, 10/18/21 13:37:00 EDT, Height Start [...] SMOKING CESSATION, # 40 gum, 0 Refills, [facility], 184, cm, 12/27/21 11:50:00 EDT, Height Start [...] a day, # 180 capsule, 3 Refills, [facility] 19138, 90, TAKE 1 CAPSULE BY MOUTH TWICE [...] Maintenance, DX: M51. 26 please send to [facility], 08/08/22 15:41:00 EST, Supply Start Date: 08/08/22 Status: Ordered Symbicort 160mcg/4.5mcg Inhaler 2, puffs, Inhalation, 2 times a day, # 6 Gm, Refills 0, Tot. Refills 0, Maintenance, 12/27/21 12:43:00 EDT, Aerosol, Route to Pharmacy Electronically, [id number], [facility]/pharmacy #[id number], 184, cm, 12/27/21 11:50:00 EDT, [...] Refills, Maintenance, 03/15/22 14:29:00 EDT, [facility], 183, cm, 02/08/22 6:42:00 EDT, Height, 123.2, [...] increased discomfort related to nerves. 3Seeing [place] neurology and sleep. Given a trial of Tegretol 200 mg upto 2 tablets twice a day andadvised to continue with Lyrica 300 mg twice a day. Had some improvement of the facial pain with this regimen. 4Seeing [place] neurology and asleep. On 09/11/2018 started on [...] Care Team Personnel Name: Olimpia Parker Position: [facility] Office Staff Member Role: Lifetime Consulting Physician Name: Ivone Oneil MD Position: [facility] Primary Care Physician Member Role: PCP Address: Address: [address] [place] [address]- Care Team Related Persons Name: JARROD BRADFORD Address: home [address] [place] [address] Name: LOLA BRADFORD Address: home [address] [place] [address] Name: GOLDIE LERMA Address: [place] [address] Name: OLIMPIA LERMA Address: [place] [address] Name: KADE LERMA Address: home [address] [place] [id number] Name: KADE LERMA Address: [address] [place] [id number]
--- OUTSIDE RECORDS SUMMARY | 2023-11-02 08:30 | XMS_ITS | Continuity of Care Document ---
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 Refills 0, Maintenance, 03/03/21 17:24:00 EDT, Route to [facility], [id number], Partial fill upon patient request if the prescription is for a schedule II opioid drug... Start Date: 03/03/21 Status: Ordered Claritin 10 mg oral tablet 10 mg, 1, tablet, By Mouth, Daily, # 30 tablet, Refills 3, Tot. Refills 3, Maintenance, 01/29/21 9:13:00 EDT, Route to [facility], [id number], 184, cm, 01/29/21 9:06:00 EDT, Height, [...] 0 Refills, Maintenance, 03/03/21 17:36:00 EDT, Cream, [id number], Partial fill upon [...] 08/17/20 13:12:00 EST, Route to Pharmacy Electronically, [facility]/pharmacy #[id number], 184, cm, 02/28/20 15:58:00 EDT, Height, 123.27,... Start Date: 08/17/20 Stop Date: 08/02/23 Status: Ordered cyanocobalamin 1000 mcg oral tablet 1,000 mcg, 1, tablet, By Mouth, Daily, # 90 tablet, Refills 11, Tot. Refills 11, Maintenance, 08/02/23 13:12:00 EST, [id number], cm, 01/01/21 10:56:00 EDT, Height, [...] send to [facility], 01/21/21 13:20:00 EDT, Supply Start Date: 01/21/21 Status: Ordered sulindac 150 mg oral tablet See Instructions, TAKE 1 TABLET BY MOUTH TWICE A DAY NEEDED FOR PAIN, # 28 tablet, 0 Refills, Maintenance, [facility], 184, cm, 02/01/21 10:51:00 EDT, Height, 123.27, [...] 5 Refills, Maintenance, 03/11/21 9:40:00 EDT, Tablet, [id number], Partial fill upon [...] provided increased discomfort related to nerves. 3Seeing [place] neurology and sleep. Given a trial of Tegretol 200 mg upto 2 tablets twice a day andadvised to continue with Lyrica 300 mg twice a day. Had some improvement of the facial pain with this regimen. 4Seeing [place] neurology and asleep. On 09/11/2018 started on [...]
--- OUTSIDE RECORDS SUMMARY | 2023-11-02 08:30 | XMS_ITS | Continuity of Care Document ---
Author Organization [facility] Address [address] [place] [address]- Care Team Providers Care Research Manufacturing Operator Name Role Phone Contractor Krystal FERNANDEZ Primary Care Physician [phone] Encounter [facility] Date(s): 07/13/21 - 09/05/21 [facility] [address] [place], [place] [address] Attending Physician: Mireille LEGGETT, Stefanie Aldrich Admitting Physician: Mireille LEGGETT, Stefanie Aldrich Referring Physician: Quinten Alvarado MD Allergies, Adverse [...] acel(Tdap) 11/25/14 Given 1Result Comment: DILUENT LOT#: [id number] EXP: 11/2022 MFG: FRESENSIUS Medications amitriptyline 100 mg oral tablet 1 tablet = 100 mg, By Mouth, Daily at bedtime, # 30 tablet, 3 Refills, Maintenance, 08/11/21 10:02:00 EST, Tablet, [facility]/pharmacy #[id number], [...] Need length 99 months Please send to [place] [facility], 01/21/21 13:20:00 EDT, Supply Start Date: 01/21/21 Status: Ordered carbidopa-levodopa 25 mg-100 mg oral tablet 1 tablet, By Mouth, 3 times a day, Rx'd by Neurology at [facility] [place]/ Dr. Murphy, # 270 tablet, 0 Refills, Maintenance, 04/15/21 23:30:00 EDT, Tablet, Partial fill upon patient request if the prescription is for a schedule II opioid drug. Start Date: 04/15/21 Status: Ordered chlorthalidone 25 mg oral tablet 1, tablet, By Mouth, Daily, # 30 tablet, Refills 5, Route to Pharmacy Electronically, [facility] STORE 20667, 184, cm, 03/30/21 16:08:00 EDT, Height, 123.27, [...] 0 Refills, Maintenance, 08/18/21 15:21:00 EST, Tablet, [facility]/pharmacy #[id number], [...] 07/17/26 13:12:00 EST, Route to Pharmacy Electronically, [facility]/pharmacy #[id number], 184, cm, 07/26/21 9:11:00 EST, [...] 3 Refills, Maintenance, 07/13/21 12:26:00 EST, Tablet, [facility]/pharmacy #[id number], d/c citalopram 10 mg, 184, [...] Refills, Maintenance, 02/10/21 13:09:00 EDT, [facility]intment, [facility], Partial fill upon patient request if the prescription is for a schedule II opioid drug., 1 application Top... Start Date: 02/10/21 Status: Ordered magnesium oxide 400 mg oral tablet 1 tablet = 400 mg, By Mouth, Daily, Rx'd by Neurology at [facility] [place]/ Dr. Murphy, 0 Refills, Maintenance, 04/15/21 23:30:00 [...] 11 Refills, Maintenance, 12/27/21 11:25:00 EDT, Capsule, [facility]/pharmacy [...] 0 Refills, [facility] STORE 66467, 184, cm, 06/14/21 11:01:00 EST, Height, 123.27, [...] 28 tablet, 0 Refills, Maintenance, [facility], 184, cm, 02/01/21 10:51:00 EDT, Height, 123.27, kg, 06/25/19 13:22:00 EST, Dry Weight Start Date: 02/01/21 Status: Ordered Tylenol Extra Strength 500 mg oral tablet 2 tablet = 1,000 mg, By Mouth, 3 times a day, PRN as needed for pain, # 100 tablet, 5 Refills, Maintenance, 07/26/21 9:43:00 EST, Tablet, [facility]/pharmacy #[id number], [...] provided increased discomfort related to nerves. 3Seeing [place] neurology and sleep. Given a trial of Tegretol 200 mg upto 2 tablets twice a day andadvised to continue with Lyrica 300 mg twice a day. Had some improvement of the facial pain with this regimen. 4Seeing [place] neurology and asleep. On 09/11/2018 started on [...]
--- OUTSIDE RECORDS SUMMARY | 2023-11-02 08:30 | XMS_ITS | Continuity of Care Document ---
Author Organization [facility] Address [address] [place] [address]- Care Team Providers Care Orderly Name Role Phone Ivone Oneil MD Primary Care Physician [phone] Encounter [facility] Date(s): 12/27/21 - 01/26/22 [facility] [address] [place], [place] [address] Attending Physician: Cristian Padilla Admitting [...] acel(Tdap) 11/25/14 Given 1Result Comment: DILUENT LOT#: [id number] EXP: 11/2022 MFG: FRESENSIUS Medications amitriptyline 100 mg oral tablet 1 tablet = 100 mg, By Mouth, Daily at bedtime, # 30 tablet, 3 Refills, Maintenance, 12/27/21 12:09:00 EDT, Tablet, [facility]/pharmacy #4471, Partial fill upon patient [...] 3 Refills, Maintenance, 03/03/21 17:24:00 EDT, Tablet, [facility]/pharmacy #4471, Partial fill upo... Start Date: 03/03/21 [...] 1 Refills, Maintenance, 11/29/21 14:23:00 EDT, Tablet, [facility]/pharmacy #4471, Partial fill upon patient [...] Need length 99 months Please send to [facility], 01/21/21 13:20:00 EDT, Supply Start Date: 01/21/21 Status: Ordered chlorthalidone 25 mg oral tablet 1, tablet, By Mouth, Daily, # 30 tablet, Refills 5, Tot. Refills 5, 09/28/21 8:08:00 EDT, Route to Pharmacy Electronically, [facility]/pharmacy #[id number], 184, cm, 09/15/21 9:12:00 EDT, Height Start Date: 09/28/21 Status: Ordered clonazePAM 2 mg oral tablet See Instructions, 1 tablet by mouth only NEEDED for severe panic attack. Dispense: #20 tabs per 20d., # 20 tablet, 0 Refills, Maintenance, 08/18/21 15:21:00 EST, Tablet, [facility]/pharmacy #[id number], Partial fill upon patient [...] 07/17/26 13:12:00 EST, Route to Pharmacy Electronically, [facility]/pharmacy #[id number], 184, cm, 07/26/21 9:11:00 EST, Height Start Date: 07/17/26 Stop Date: 07/01/29 Status: Ordered cyanocobalamin 1000 mcg oral tablet 1,000 mcg, 1, tablet, By Mouth, Daily, for 90 days, # 90 tablet, Refills 11, Tot. Refills 11, Hard Stop 07/17/26 13:12:00 EST, 08/02/23 13:12:00 EST, Route to Pharmacy Electronically, [facility]/pharmacy #[id number], 184, cm, 01/01/21 10:56:00 EDT, [...] 0 Refills, Maintenance, 12/09/21 15:41:00 EDT, Gel, [facility]/pharmacy #[id number], Partial fill upon patient request if the prescription is for a schedule... Start Date: 12/09/21 Stop Date: 12/16/21 Status: Ordered diclofenac 1% topical gel 1 application, Topically, 4 times a day, PRN Pain , Moderate, # 100 Gm, 1 Refills, Maintenance, 11/12/21 8:44:00 EDT, Gel, [facility]/pharmacy #[id number], Partial fill upon patient request if the prescription isfor a schedule II opioid drug., 184, cm, 11/05/21 9... Start Date: 11/12/21 Status: Ordered docusate sodium 100 mg oral tablet 1 tablet = 100 mg, By Mouth, 2 times a day, PRN for constipation, # 60 tablet, 5 Refills, Maintenance, 10/07/21 20:16:00 EDT, Tablet, [facility]/pharmacy #[id number], Partial fill upon patient [...] 1, NEEDED FOR ALLERGIES, Route to PharmacyElectronically, [facility], 184, cm, 10/18/21 13:37:00 EDT, Height Start Date: 10/22/21 Status: Ordered magnesium oxide 400 mg oral tablet 1 tablet = 400 mg, By Mouth, Daily, [facility] Dr. Murphy, 0 Refills, Maintenance, 04/15/21 23:30:00 [...] 11:13:00 EST, 10/28/21 11:13:00 EDT, REC Powder, [facility]/pharmacy #[id number], Partial fill upon patient [...] tablet, 3 Refills, Maintenance, 09/16/2211:15:00 EDT, Tablet, [facility]/pharmacy #[id number], Partial f... Start Date: 09/15/21 Status: Ordered omega-3 polyunsaturated fatty acids ethyl esters 1000 mg oral capsule 1 capsule = 1,000 mg, By Mouth, 2 times a day, # 60 capsule, 11 Refills, Maintenance, 12/27/21 11:25:00 EDT, Capsule, [facility]/pharmacy #[id number], 1 capsule By Mouth 2 times a day,x30 days, 184, cm, 07/26/21 9:11:00 EST, Height Start Date: 12/27/21 Stop Date: 12/22/22 Status: Ordered omeprazole 20 mg oral enteric coated capsule 1 capsule, By Mouth, Daily, # 90 capsule, 0 Refills, 12/07/21 20:40:00 EDT, [facility]/pharmacy #[id number], 184, cm, 11/15/21 9:55:00 EDT, Height [...] 0 Refills, Maintenance, 06/29/21 15:41:00 EST, Capsule, [facility]/pharmacy #[id number], Partial fill upon patient request if the prescription is for a schedule II o... Start Date: 06/29/21 Stop Date: 07/29/21 Status: Ordered Shower Chair See Instructions, # 1 each, Refills 0, Tot. Refills 0, Maintenance, DX: M51. 26 please send to [facility], 01/21/21 13:20:00 EDT, Supply Start Date: 01/21/21 Status: Ordered Symbicort 160mcg/4.5mcg Inhaler 2, puffs, Inhalation, 2 times a day, # 6 Gm, Refills 0, Tot. Refills 0, Maintenance, 12/27/21 12:43:00 EDT, Aerosol, Route to Pharmacy Electronically, [id number], [facility]/pharmacy #[id number], 184, cm, 12/27/21 11:50:00 EDT, Height Start Date: 12/27/21 Status: Ordered Tylenol Extra Strength 500 mg oral tablet 2 tablet = 1,000 mg, By Mouth, 3 times a day, PRN as needed for pain, # 100 tablet, 5 Refills, Maintenance, 12/07/21 10:44:00 EDT, Tablet, [id number], Partial fill upon patient request if theprescription [...] provided increased discomfort related to nerves. 3Seeing [place] neurology and sleep. Given a trial of Tegretol 200 mg upto 2 tablets twice a day andadvised to continue with Lyrica 300 mg twice a day. Had some improvement of the facial pain with this regimen. 4Seeing [place] neurology and asleep. On 09/11/2018 started on [...]
--- OUTSIDE RECORDS SUMMARY | 2023-11-02 08:30 | XMS_ITS | Continuity of Care Document ---
Author Organization [facility] Address [address] [place] [address]- Care Team Providers Care Application Coordinator Name Role Phone Contractor Krystal FERNANDEZ Primary Care Physician Encounter [facility] Date(s): 12/31/20 - 01/30/[address] [address] Allergies, Adverse Reactions, Alerts Substance [...] 10/30/20 15:08:00 EDT, Route to Pharmacy Electronically, [facility]/pharmacy #[id number], 184, cm, 10/30/20 14:15:00 EDT, Height, 123.27, kg, 06/25/19 13:22:00 EST, Dry Weight Start Date: 10/30/20 Status: Ordered aspirin 81 mg oral delayed release tablet 81 mg, 1, tablet, By Mouth, Daily, # 90 tablet, Refills 0, Tot. Refills 0, Maintenance, 01/01/21 11:26:00 EDT, Route to Pharmacy Electronically, [facility]/pharmacy #[id number], Partial fill upon patient request if the prescription is for a schedule II opioid drug... Start Date: 01/01/21 Status: Ordered aspirin 81 mg oral tablet 1 tablet = 81 mg, By Mouth, Daily, # 90 tablet, 3 Refills, Maintenance, 01/15/20 9:51:00 EDT, Tablet, [facility]/pharmacy #[id number], 184, cm, 01/15/20 9:11:00 EDT, Height, [...] Need length 99 months Please send to [facility], 01/21/21 13:20:00 EDT, Supply Start Date: 01/21/21 Status: Ordered Claritin 10 mg oral tablet 10 mg, 1, tablet, By Mouth, Daily, # 30 tablet, Refills 3, Tot. Refills 3, Maintenance, 01/29/21 9:13:00 EDT, Route to Pharmacy Electronically, [facility]/pharmacy #[id number], 184, cm, 01/29/21 9:06:00 EDT, Height, [...] 08/17/20 13:12:00 EST, Route to Pharmacy Electronically, [facility]/pharmacy #[id number], 184, cm, 02/28/20 15:58:00 EDT, Height, 123.27,... Start Date: 08/17/20 Stop Date: 08/02/23 Status: Ordered cyanocobalamin 1000 mcg oral tablet 1,000 mcg, 1, tablet, By Mouth, Daily, # 90 tablet, Refills 11, Tot. Refills 11, Maintenance, 08/02/23 13:12:00 EST, Route to Pharmacy Electronically, [facility]/pharmacy #[id number], 184, cm, 01/01/21 10:56:00 EDT, Height, [...] 3 Refills, Maintenance, 01/01/21 11:24:00 EDT, Tablet, [facility]/pharmacy #[id number], 184, cm, 01/01/21 10:56:00 EDT, Height, 123.27, kg, 06/25/19 13:22:00 EST, Dry Weight Start Date: 01/01/21 Status: Ordered docusate sodium 100 mg oral tablet 1 tablet = 100 mg, By Mouth, 2 times a day, PRN for constipation, # 60 tablet, 5 Refills, Maintenance, 01/11/21 15:23:00 EDT, Tablet, [facility]/pharmacy #[id number], Partial fill upon patient request if the prescription is for a schedule II opioid drug., 184, cm,... Start Date: 01/11/21 Status: Ordered fluticasone 50 mcg/inh nasal spray See Instructions, USE 1 SPRAY IN EACH NOSTRIL EVERY MORNING, # 16 mL, 3 Refills, 01/29/21 9:11:00 EDT, [facility]/pharmacy #[id number], 30, USE 1 SPRAY IN EACH [...] provided increased discomfort related to nerves. 3Seeing [place] neurology and sleep. Given a trial of Tegretol 200 mg upto 2 tablets twice a day andadvised to continue with Lyrica 300 mg twice a day. Had some improvement of the facial pain with this regimen. 4Seeing [place] neurology and asleep. On 09/11/2018 started on [...]
--- OUTSIDE RECORDS SUMMARY | 2023-11-02 08:30 | XMS_ITS | Continuity of Care Document ---
Author Organization [facility] Address [address] [place] [address]- Care Team Providers Care Bagging Machine Operator Name Role Phone Ivone Oneil MD Primary Care Physician Encounter [facility] Date(s): 02/03/22 - 03/05/[address] [address]- Attending Physician: Cristian Padilla Admitting Physician: AdmtrCristian [...] acel(Tdap) 11/25/14 Given 1Result Comment: DILUENT LOT#: [id number] EXP: 11/2022 MFG: FRESENSIUS Medications amitriptyline 100 mg oral tablet 1 tablet = 100 mg, By Mouth, Daily at bedtime, # 30 tablet, 3 Refills, Maintenance, 12/27/21 12:09:00 EDT, Tablet, [facility]/pharmacy #[id number], Partial fill upon patient [...] Refills, Maintenance, 03/03/21 17:24:00 EDT, Tablet, [facility]/pharmacy #[id number], Partial fill upo... Start [...] 1 Refills, Maintenance, 11/29/21 14:23:00 EDT, Tablet, [facility]/pharmacy #[id number], Partial fill upon patient [...] Need length 99 months Please send to [facility], 01/21/21 13:20:00 EDT, [...] Refills, Maintenance, 08/18/21 15:21:00 EST, Tablet, [facility]/pharmacy #[id number], Partial fill upon patient [...] 13:12:00 EST, [id number], cm, 07/26/21 9:11:00 EST, Height Start Date: 07/17/26 Stop Date: 07/01/29 Status: Ordered cyanocobalamin 1000 mcg oral tablet 1,000 mcg, 1, tablet, By Mouth, Daily, for 90 days, # 90 tablet, Refills 11, Tot. Refills 11, Hard Stop 07/17/26 13:12:00 EST, 08/02/23 13:12:00 EST, Route to Pharmacy Electronically, [facility]/pharmacy #[id number], 184, cm, 01/01/21 10:56:00 [...] 5 Refills, Maintenance, 10/07/21 20:16:00 EDT, Tablet, [facility]/pharmacy #[id number], Partial fill upon patient request if the [...] 1, NEEDED FOR ALLERGIES, Route to PharmacyElectronically, [facility], 184, cm, 10/18/21 13:37:00 EDT, Height Start Date: 10/22/21 Status: Ordered magnesium oxide 400 mg oral tablet 1 tablet = 400 mg, By Mouth, Daily, Rx'd by Neurology at [facility] Alisa Scotland/ Dr. Murphy, 0 Refills, Maintenance, 04/15/21 23:30:00 [...] 11:13:00 EST, 10/28/21 11:13:00 EDT, REC Powder, [facility]/pharmacy #[id number], Partial fill upon patient [...] 3 Refills, Maintenance, 09/16/2211:15:00 EDT, Tablet, [facility]/pharmacy #[id number], Partial f... Start Date: 09/15/21 [...] SMOKING CESSATION, # 40 gum, 0 Refills, [facility] 470[facility], 184, cm, 12/27/21 11:50:00 EDT, Height Start Date: 02/01/22 Status: Ordered omega-3 polyunsaturated fatty acids ethyl esters 1000 mg oral capsule 1 capsule, By Mouth, 2 times a day, # 180 capsule, 3 Refills, [facility], 90, TAKE 1 CAPSULE BY MOUTH TWICE A DAY, 183, cm, 02/08/22 6:42:00 EDT, Height, 123.2, kg, 02/07/22 12:47:00 EDT, Dry Weight Start Date: 02/09/22 Status: Ordered omeprazole 20 mg oral enteric coated capsule 1 capsule, By Mouth, Daily, # 90 capsule, 0 Refills, Maintenance, 02/14/22 21:23:00 EDT, [facility], 183, cm, 02/08/22 6:42:00 EDT, Height, 123.2, [...] Refills, Maintenance, 06/29/21 15:41:00 EST, Capsule, [facility]/pharmacy #7711, Partial fill upon patient request if the prescription is for a schedule II o... Start Date: 06/29/21 Stop Date: 07/29/21 Status: Ordered primidone 50 mg oral tablet 100 mg, 2, tablet, By Mouth, 3 times a day, [facility] Dr. Murphy, Refills 0, Maintenance, 03/07/19 8:44:30 [...] 12:43:00 EDT, Aerosol, Route to Pharmacy Electronically, [id number], [id number], 184, cm, 12/27/21 11:50:00 EDT, [...] provided increased discomfort related to nerves. 3Seeing [place] neurology and sleep. Given a trial of Tegretol 200 mg upto 2 tablets twice a day andadvised to continue with Lyrica 300 mg twice a day. Had some improvement of the facial pain with this regimen. 4Seeing [place] neurology and asleep. On 09/11/2018 started on [...] Team Personnel Name: Ivone Oneil MD Address: [address] [place] [id number]
--- OUTSIDE RECORDS SUMMARY | 2023-11-02 08:30 | XMS_ITS | Continuity of Care Document ---
Author Organization [facility] Address [address] [place] [address]- Care Team Providers Care Artificial Cherry Maker Name Role Phone Dayo Castano MD Primary Care Physician Encounter [facility] Date(s): 09/04/23 - 10/04/[address] [address]- Allergies, Adverse Reactions, Alerts Substance Reaction Severity [...] influenza virus vaccine, inactivated 04/16/15 Give n [id number] 12y+ bivalent booster vax 02/21/23 Given SARS-CoV-2 (COVID-19) mRNA BNT-162b2 vac 1 06/01/21 Given SARS-CoV-2 (COVID-19) mRNA BNT-162b2 vac 11/07/20 Recorded SARS-CoV-2 (COVID-19) mRNA BNT-162b2 vac 10/17/20 Recorded zoster vaccine, inactivated 06/18/19 Recorded zoster vaccine, inactivated 06/17/19 Recorded zoster vaccine, inactivated 11/25/17 Recorded Influenza Vaccine (oldterm) 02/17/17 Recorded pneumococcal 23-valent vaccine 02/16/16 Given tetanus/diphtheria/pertussis, acel(Tdap) 11/25/14 Given 1Result Comment: DILUENT LOT#: [id number] EXP: 11/2022 MFG: FRESENSIUS Medications Albuterol (Eqv-ProAir [...] Daily at bedtime, Rx'd by neurology ([facility]), # 30 tablet, 0 Refills, [...] Need length 99 months Please send to [facility], 01/21/21 13:20:00 EDT, Supply Start Date: 01/21/21 Status: Ordered carbidopa-levodopa 25 mg-100 mg oral tablet 1 tablet, By Mouth, 2 times a day, Rx'd by neurology at [facility], # 60 tablet, 0 Refills, Maintenance, 10/04/22 8:23:00 EDT, Tablet, Partial fill upon patient request if the prescription is for a schedule II opioid drug. Start Date: 10/04/22 Status: Ordered chlorthalidone 25 mg oral tablet 25 mg, 1, tablet, By Mouth, Daily in AM, Blood pressure, # 90 tablet, Refills 3, Tot. Refills 3, Maintenance, 04/04/23 8:45:00 EDT, Route to Pharmacy Electronically, [facility]/pharmacy #[id number], Partial fill upon patient request [...] 10/06/23 14:26:00 EDT, 08/07/23 14:26:00 EST, Cream, [facility]/pharmacy #[id number], Partial fill upon patient request [...] Gm, 5 Refills, Maintenance, 07/04/23 8:59:00 EST, [facility]/pharmacy #[id number], 30, APPLY TOPICALLY TO AFFECTED [...] Daily at bedtime, Rx'd by neurology at [facility], 0 Refills, Maintenance, 10/04/22 8:24:00 EDT, Capsule, Partial fill upon patient request if the prescription is for a schedule II opioid drug. Start Date: 10/04/22 Status: Ordered loratadine 10 mg oral tablet 1, tablet, By Mouth, Daily, PRN, # 90 tablet, Refills 3, Tot. Refills 3, NEEDED FOR ALLERGIES, 04/04/23 8:42:00 EDT, Route to Pharmacy Electronically, [facility]/pharmacy #[id number], 183, cm, 04/04/23 8:24:00EDT, Height, 123.2, kg, 02/07/22 12:47:00 EDT, Dry... Start Date: 04/04/23 Status: Ordered Metamucil 3.4 gm/5.2 gm oral powder for reconstitution = 3.4 Gm, By Mouth, 3 times a day, PRN as needed for constipation, # 425 Gm, 11 Refills, Maintenance, 08/07/23 14:34:00 EST, REC Powder, [facility]/pharmacy #[id number], Partial fill upon patient request if the prescription is for a schedule II opioid drug., 183,... Start Date: 08/07/23 Status: Ordered metFORMIN 500 mg oral tablet 2 tablet, By Mouth, 2 times a day, FOR DIABETES., # 360 tablet, 3 Refills, Maintenance, 09/25/23 15:02:00 EDT, [facility], 183, cm, 08/22/23 13:24:00 EST, Height, 123.2, [...] # 40 gum, 0 Refills, [facility], 184, cm, 12/27/21 11:50:00 EDT, Height Start [...] Gm, 1 Refills, Maintenance, 04/04/23 8:46:00 EDT, [facility]/pharmacy #[id number], 14,DISSOLVE 17 GRAMS IN WATER & DRINK ONCE A DAY UNTIL BM,... Start Date: 04/04/23 Status: Ordered pregabalin 300 mg oral capsule 1 capsule = 300 mg, By Mouth, 2 times a day, Rx'd by neurology at [facility], # 60 capsule, 0 Refills, Maintenance, 10/04/22 8:24:00 EDT, Capsule, Partial fill upon patient request if the prescription is for a schedule II opioid drug. Start Date: 10/04/22 Status: Ordered primidone 50 mg oral tablet 100 mg, 2, tablet, By Mouth, 2 times a day, rx'd by neurology at [facility], # 120 tablet, Refills 0, [...] times a day, Rx'd by neurology at [facility], # 270 tablet, 0 Refills, Maintenance, 10/04/22 [...] 14:39:00 EST, Aerosol, Route to Pharmacy Electronically, [id number], [facility]/pharmacy #[id number], 183, cm, 08/07/23 14:26:00 EST, [...] 11 Refills, Maintenance, 04/04/23 8:43:00 EDT, Tablet, [facility]/pharmacy #[id number], Partial fill upon patient request [...] 08/28/23 13:12:00 EDT, Route to Pharmacy Electronically, [facility], 183, cm, 08/22/23 13:24:00 EST, Height, 123.2, [...] provided increased discomfort related to nerves. 3Seeing [place] neurology and sleep. Given a trial of [...] Care team information Care Team Personnel Name: Bonnie Parkernifer Position: [facility] Office Staff Member Role: Lifetime Consulting Physician Name: Dayo Castano MD Position: [facility] Physician - Primary Care Member Role: PCP Address: Address: [address] [place] [address]- Care Team Related Persons Name: JARROD BRADFORD Address: home [address] [place] [address] Name: LOLA BRADFORD Address: home [address] [place] [address] Name: GOLDIE LERMA Address: [place] [address] Name: OLIMPIA LERMA Address: [place] [address] Name: KADE LERMA Address: home [address] [place] [id number] Name: KADE LERMA Address: home [address] [place] [id number]
--- OUTSIDE RECORDS SUMMARY | 2023-11-02 08:30 | XMS_ITS | Continuity of Care Document ---
Author Organization [facility] Address [address] [place] [address]- Care Team Providers Care Pasting Machine Operator Name Role Phone Terence PRATHER, Azra Primary Care Physician Encounter [facility] Date(s): 07/29/20 - 08/28/20 [facility] [address] [place], [place] [address] Attending Physician: Cristian Padilla Admitting Physician: [...] 01/15/20 9:51:00 EDT, Route to Pharmacy Electronically, [facility]/pharmacy #[id number], 184, cm, 01/15/20 9:11:00 EDT, Height, 123.27, kg, 06/25/19 13:22:00 EST, Dry Weight Start Date: 01/15/20 Stop Date: 03/15/20 Status: Ordered aspirin 81 mg oral tablet 1 tablet = 81 mg, By Mouth, Daily, # 90 tablet, 3 Refills, Maintenance, 01/15/20 9:51:00 EDT, Tablet, [facility]/pharmacy #[id number], 184, cm, 01/15/20 9:11:00 [...] 02/07/20 9:49:00 EDT, Route to Pharmacy Electronically, [facility]/pharmacy #[id number], 184, cm, 01/29/20 14:16:00 [...] EST, Route to Pharmacy Electronically, [facility]/pharmacy #[id number], 184, cm, 02/28/20 15:58:00 [...] Refills, Maintenance, 01/15/20 9:51:00 EDT, Tablet, [facility]/pharmacy #[id number], 184, cm, 01/15/20 9:11:00 EDT, Height, 123.27, kg, 06/25/19 13:22:00 EST, Dry Weight Start Date: 01/15/20 Stop Date: 03/15/20 Status: Ordered fluticasone 50 mcg/inh nasal spray See Instructions, USE 1 SPRAY IN EACH NOSTRIL EVERY MORNING, # 16 mL, 0 Refills, Maintenance, [facility] 578[facility], 30, USE 1 SPRAY IN EACH NOSTRIL [...] 2 Refills, Maintenance, 01/27/20 10:39:00 EDT, Capsule, [facility]/pharmacy #[id number], 184, cm, 01/15/20 9:52:00 EDT, Height, 123.27, kg, 06/25/19 13:22:00 EST, Dry Weight Start Date: 01/27/20 Stop Date: 07/25/20 Status: Ordered metFORMIN 500 mg oral tablet 1 tablet = 500 mg, By Mouth, Daily, with meals, # 90 tablet, 11 Refills, Maintenance, 03/02/20 9:56:00 EDT, Tablet, [facility]/pharmacy #[id number], 184, cm, 02/28/20 15:58:00 EDT, Height, 123.27, kg, 06/25/19 13:22:00 EST, Dry Weight Start Date: 03/02/20 Status: Ordered omeprazole 20 mg oral enteric coated capsule 1 capsule = 20 mg, By Mouth, Daily, # 30 capsule, 2 Refills, Maintenance, 02/06/20 16:40:00 EDT, ECCapsule, [facility]/pharmacy #[id number], 184, cm, 01/29/20 14:16:00 [...] the facial pain with this regimen. 4Seeing [place] neurology and asleep. On 09/11/2018 started on [...]
--- OUTSIDE RECORDS SUMMARY | 2023-11-02 08:30 | XMS_ITS | Continuity of Care Document ---
Author Organization [facility] Address [address] [place] [address]- Care Team Providers Care Meat And Seafood Manager Name Role Phone Dayo Castano MD Primary Care Physician [phone] Encounter [facility] ACCT R [id number] Date(s): 07/25/23 - 08/24/[address] [address]- Allergies, Adverse Reactions, Alerts Substance Reaction Severity Status penicillin Unknown Active gabapentin Active hydrOXYzine hydrochloride Ac tive Lantus Active Ventolin HFA Active ZyrTEC Active SEROquel Active Flovent HFA Active traZODone Active Immunizations [...] influenza virus vaccine, inactivated 04/16/15 Give n [id number] 12y+ bivalent booster vax 02/21/23 Given SARS-CoV-2 (COVID-19) mRNA BNT-162b2 vac 1 06/01/21 Given SARS-CoV-2 (COVID-19) mRNA BNT-162b2 vac 11/07/20 Recorded SARS-CoV-2 (COVID-19) mRNA BNT-162b2 vac 10/17/20 Recorded zoster vaccine, inactivated 06/18/19 Recorded zoster vaccine, inactivated 06/17/19 Recorded zoster vaccine, inactivated 11/25/17 Recorded Influenza Vaccine (oldterm) 02/17/17 Recorded pneumococcal 23-valent vaccine 02/16/16 Given tetanus/diphtheria/pertussis, acel(Tdap) 11/25/14 Given 1Result Comment: DILUENT LOT#: [id number] EXP: 11/2022 MFG: FRESENSIUS Medications Albuterol (Eqv-ProAir [...] at bedtime, Rx'd by neurology ([facility]), # 30 tablet, 0 Refills, [...] Need length 99 months Please send to [place] [facility], 01/21/21 13:20:00 EDT, Supply Start Date: 01/21/21 Status: Ordered carbidopa-levodopa 25 mg-100 mg oral tablet 1 tablet, By Mouth, 2 times a day, Rx'd by neurology at [facility], # 60 tablet, 0 [...] 04/04/23 8:45:00 EDT, Route to Pharmacy Electronically, [facility]/pharmacy #[id number], Partial fill upon patient request if [...] 10/06/23 14:26:00 EDT, 08/07/23 14:26:00 EST, Cream, [facility]/pharmacy #[id number], Partial fill upon patient request if [...] 04/04/23 8:46:00 EDT, Route to Pharmacy Electronically, [facility]/pharmacy #[id number], 183, cm, 04/04/23 8:24:00 EDT, Height, [...] Gm, 5 Refills, Maintenance, 07/04/23 8:59:00 EST, [facility]/pharmacy #[id number], 30, APPLY TOPICALLY TO AFFECTED ARE [...] Daily at bedtime, Rx'd by neurology at [facility], 0 Refills, Maintenance, 10/04/22 8:24:00 EDT, Capsule, Partial fill upon patient request if the prescription is for a schedule II opioid drug. Start Date: 10/04/22 Status: Ordered loratadine 10 mg oral tablet 1, tablet, By Mouth, Daily, PRN, # 90 tablet, Refills 3, Tot. Refills 3, NEEDED FOR ALLERGIES, 04/04/23 8:42:00 EDT, Route to Pharmacy Electronically, [facility]/pharmacy #[id number], 183, cm, 04/04/23 8:24:00EDT, Height, 123.2, kg, 02/07/22 12:47:00 EDT, Dry... Start Date: 04/04/23 Status: Ordered Metamucil 3.4 gm/5.2 gm oral powder for reconstitution = 3.4 Gm, By Mouth, 3 times a day, PRN as needed for constipation, # 425 Gm, 11 Refills, Maintenance, 08/07/23 14:34:00 EST, REC Powder, [facility]/pharmacy #[id number], Partial fill upon patient request if [...] SMOKING CESSATION, # 40 gum, 0 Refills, [facility]ORE 688[facility], 184, cm, 12/27/21 11:50:00 EDT, Height Start [...] Gm, 1 Refills, Maintenance, 04/04/23 8:46:00 EDT, [facility]/pharmacy #[id number], 14,DISSOLVE 17 GRAMS IN WATER & DRINK ONCE A DAY UNTIL BM,... Start Date: 04/04/23 Status: Ordered pregabalin 300 mg oral capsule 1 capsule = 300 mg, By Mouth, 2 times a day, Rx'd by neurology at [facility], # 60 capsule, 0 Refills, Maintenance, 10/04/22 8:24:00 EDT, Capsule, Partial fill upon patient request if the prescription is for a schedule II opioid drug. Start Date: 10/04/22 Status: Ordered primidone 50 mg oral tablet 100 mg, 2, tablet, By Mouth, 2 times a day, rx'd by neurology at [facility], # 120 tablet, Refills 0, [...] times a day, Rx'd by neurology at [facility], # 270 tablet, 0 [...] 14:39:00 EST, Aerosol, Route to Pharmacy Electronically, [id number], [facility]/pharmacy #[id number], 183, cm, 08/07/23 14:26:00 EST, Height,... [...] 11 Refills, Maintenance, 04/04/23 8:43:00 EDT, Tablet, [facility]/pharmacy #[id number], Partial fill upon patient request if [...] Refills, Maintenance, 02/15/23 11:23:00 EDT, [facility]eros[facility], [id number], Partial fill upon patient request if the [...] provided increased discomfort related to nerves. 3Seeing [place] neurology and sleep. Given a trial of [...] Care Team Personnel Name: Olimpia Parker Position: [facility] Office Staff Member Role: Lifetime Consulting Physician Name: Dayo Castano MD Position: [facility] Physician - Primary Care Member Role: PCP Address: Address: [address] [place] [address]- Care Team Related Persons Name: JOSIAS BRADFORDE Address: home [address] [place] [address] Name: LOLA BRADFORD Address: home [address] [place] [address] Name: GOLDIE LERMA Address: [place] [address] Name: OLIMPIA LERMA Address: [place] [address] Name: KADE LERMA Address: home [address] [place] [address] Name: KADE LERMA Address: home [address] [place] [id number]
--- OUTSIDE RECORDS SUMMARY | 2023-11-02 08:30 | XMS_ITS | Continuity of Care Document ---
Author Organization [facility] Address [address] [place] [address]- Care Team Providers Care Account Support Associate Name Role Phone Dayo Castano MD Primary Care Physician [phone] Encounter [facility] Date(s): 07/24/23 - 08/23/[address] [address]- Allergies, Adverse Reactions, Alerts Substance Reaction Severity [...] influenza virus vaccine, inactivated 04/16/15 Give n [id number] 12y+ bivalent booster vax 02/21/23 Given SARS-CoV-2 (COVID-19) mRNA BNT-162b2 vac 1 06/01/21 Given SARS-CoV-2 (COVID-19) mRNA BNT-162b2 vac 11/07/20 Recorded SARS-CoV-2 (COVID-19) mRNA BNT-162b2 vac 10/17/20 Recorded zoster vaccine, inactivated 06/18/19 Recorded zoster vaccine, inactivated 06/17/19 Recorded zoster vaccine, inactivated 11/25/17 Recorded Influenza Vaccine (oldterm) 02/17/17 Recorded pneumococcal 23-valent vaccine 02/16/16 Given tetanus/diphtheria/pertussis, acel(Tdap) 11/25/14 Given 1Result Comment: DILUENT LOT#: [id number] EXP: 11/2022 MFG: FRESENSIUS Medications Albuterol (Eqv-ProAir [...] Mouth, Daily at bedtime, Rx'd by neurology ([facility]), # 30 tablet, 0 Refills, Maintenance, [...] Need length 99 months Please send to [place] [facility], 01/21/21 13:20:00 EDT, Supply Start Date: 01/21/21 Status: Ordered carbidopa-levodopa 25 mg-100 mg oral tablet 1 tablet, By Mouth, 2 times a day, Rx'd by neurology at [facility], # 60 tablet, 0 Refills, Maintenance, 10/04/22 8:23:00 EDT, Tablet, Partial fill upon patient request if the prescription is for a schedule II opioid drug. Start Date: 10/04/22 Status: Ordered chlorthalidone 25 mg oral tablet 25 mg, 1, tablet, By Mouth, Daily in AM, Blood pressure, # 90 tablet, Refills 3, Tot. Refills 3, Maintenance, 04/04/23 8:45:00 EDT, Route to Pharmacy Electronically, [facility]/pharmacy #[id number], Partial fill [...] 10/06/23 14:26:00 EDT, 08/07/23 14:26:00 EST, Cream, [facility]/pharmacy #[id number], Partial fill [...] 04/04/23 8:46:00 EDT, Route to Pharmacy Electronically, [facility]/pharmacy #[id number], 183, cm, 04/04/23 8:24:00 [...] Gm, 5 Refills, Maintenance, 07/04/23 8:59:00 EST, [facility]/pharmacy #[id number], 30, APPLY [...] at bedtime, Rx'd by neurology at [facility], 0 Refills, Maintenance, 10/04/22 8:24:00 EDT, Capsule, Partial fill upon patient request if the prescription is for a schedule II opioid drug. Start Date: 10/04/22 Status: Ordered loratadine 10 mg oral tablet 1, tablet, By Mouth, Daily, PRN, # 90 tablet, Refills 3, Tot. Refills 3, NEEDED FOR ALLERGIES, 04/04/23 8:42:00 EDT, Route to Pharmacy Electronically, [facility]/pharmacy #[id number], 183, cm, 04/04/23 8:24:00EDT, [...] SMOKING CESSATION, # 40 gum, 0 Refills, [facility] STORE 18260, 184, cm, 12/27/21 11:50:00 EDT, Height Start [...] Gm, 1 Refills, Maintenance, 04/04/23 8:46:00 EDT, [facility]/pharmacy #[id number], 14,DISSOLVE 17 GRAMS IN WATER & DRINK ONCE A DAY UNTIL BM,... Start Date: 04/04/23 Status: Ordered pregabalin 300 mg oral capsule 1 capsule = 300 mg, By Mouth, 2 times a day, Rx'd by neurology at [facility], # 60 capsule, 0 Refills, Maintenance, 10/04/22 8:24:00 EDT, Capsule, Partial fill upon patient request if the prescription is for a schedule II opioid drug. Start Date: 10/04/22 Status: Ordered primidone 50 mg oral tablet 100 mg, 2, tablet, By Mouth, 2 times a day, rx'd by neurology at [facility], # 120 tablet, Refills 0, Maintenance, [...] a day, Rx'd by neurology at [facility], # 270 tablet, 0 Refills, Maintenance, 10/04/22 [...] Maintenance, DX: M51. [id number] please send to [facility], 08/08/22 15:41:00 EST, Supply Start Date: 08/08/22 Status: Ordered Symbicort 160mcg/4.5mcg Inhaler 2, puffs, Inhalation, 2 times a day, # 6 Gm, Refills 11, Tot. Refills 11, Maintenance, 08/07/23 14:39:00 EST, Aerosol, Route to Pharmacy Electronically, [id number], [id number], 183, cm, 08/07/23 14:26:00 EST, [...] Refills, Maintenance, 02/15/23 11:23:00 EDT, [facility]erosol, [id number], Partial fill upon patient request if the [...] provided increased discomfort related to nerves. 3Seeing [place] neurology and sleep. Given a trial [...] Care Team Personnel Name: Olimpia Parker Position: [facility] Office Staff Member Role: Lifetime Consulting Physician Name: Dayo Castano MD Position: [facility] Physician - Primary Care Member Role: PCP Address: Address: [address] [place] [address]- Care Team Related Persons Name: JARROD BRADFORD Address: home [address] [place] [address] Name: MURRAYYARA SZYMANSKISY Address: home [address] [place] [address] Name: GOLDIE LERMA Address: [place] [address] Name: OLIMPIA LERMA Address: [place] [address] Name: KADE LERMA Address: home [address] [place] [id number] Name: KADE LERMA Address: home [address] [place] [id number]
--- OUTSIDE RECORDS SUMMARY | 2023-11-02 08:30 | XMS_ITS | Continuity of Care Document ---
Author Organization [facility] Address [address] [place] [address]- Care Team Providers Care Human Service Specialist Name Role Phone Ivone Oneil MD Primary Care Physician Encounter [facility] Date(s): 07/07/22 - 09/03/[address] [address]- Attending Physician: Ivone Oneil MD Admitting Physician: Ivone Oneil MD Referring Physician: Ivone Oneil MD Allergies, Adverse Reactions, [...] acel(Tdap) 11/25/14 Given 1Result Comment: DILUENT LOT#: [id number] EXP: 11/2022 MFG: FRESENSIUS Medications amitriptyline 100 mg oral tablet 1 tablet = 100 mg, By Mouth, Daily at bedtime, # 30 tablet, 3 Refills, Maintenance, 12/27/21 12:09:00 EDT, Tablet, [facility]/pharmacy #[id number], [...] 1 Refills, Maintenance, 05/13/22 14:40:00 EST, Tablet, [facility]/pharmacy #[id number], Partial [...] Need length 99 months Please send to [facility], 01/21/21 13:20:00 EDT, Supply Start Date: 01/21/21 Status: Ordered chlorthalidone 25 mg oral tablet 25 mg, 1, tablet, By Mouth, Daily, # 30 tablet, Refills 2, Tot. Refills 2, Maintenance, 08/23/22 8:42:00 EST, Route to Pharmacy Electronically, [facility]/pharmacy #[id number], Partial fill upon patient request if the prescription is for a schedule II opioid drug.... Start Date: 08/23/22 Status: Ordered clonazePAM 2 mg oral tablet See Instructions, 1 tablet by mouth only NEEDED for severe panic attack. Dispense: #20 tabs per 20d., # 20 tablet, 0 Refills, Maintenance, 08/18/21 15:21:00 EST, Tablet, [facility]/pharmacy #[id number], Partial [...] [facility]/pharmacy #[id number], 184, cm, 07/26/21 9:11:00 [...] Gm, 2 Refills, Maintenance, 07/28/22 8:54:00 EST, [facility], 30, APPLY TOPICALLY TO AFFECTED ARE TWICE A DAY NEEDED FOR PAIN, 183, cm, 07/07/22 10:54:00 E... Start Date: 07/28/22 Status: Ordered empagliflozin 10 mg oral tablet 1 tablet = 10 mg, By Mouth, Daily in AM, # 30 tablet, 2 Refills, Maintenance, 08/23/22 8:44:00 EST,Tablet, [facility]/pharmacy #[id number], Partial fill [...] 2 Refills, Maintenance, 08/23/22 8:44:00 EST, Tablet, [facility]/pharmacy #[id number], Label in armenian, cetrizine not effective, 1 tablet By Mouth Daily in AM, 183, cm, 08/22/22 8:28:00 EST, Height, 123.2, kg,... Start Date: 08/23/22 Status: Ordered loratadine 10 mg oral tablet 1, tablet, By Mouth, Daily, PRN, # 90 tablet, Refills 1, NEEDED FOR ALLERGIES, Route to PharmacyElectronically, [facility], 184, cm, 10/18/21 13:37:00 EDT, Height Start Date: 10/22/21 Status: Ordered magnesium oxide 400 mg oral tablet 1 tablet = 400 mg, By Mouth, Daily, Rx'd by Neurology at [facility]/ Dr. Murphy, 0 Refills, Maintenance, 04/15/21 [...] tablet, 3 Refills, Maintenance, 09/16/2211:15:00 EDT, Tablet, [facility]/pharmacy #[id number], Partial f... Start Date: 09/15/21 Status: Ordered Nicotine 2 mg gum See Instructions, CHEW 1 PIECE OF GUM EVERY 2 HOURS NEEDED FOR SMOKING CESSATION, # 40 gum, 0 Refills, [facility], 184, cm, 12/27/21 11:50:00 EDT, Height Start [...] a day, # 180 capsule, 3 Refills, [facility], 90, TAKE 1 CAPSULE BY MOUTH TWICE A DAY, 183, cm, 02/08/22 6:42:00 EDT, Height, 123.2, kg, 02/07/22 12:47:00 EDT, Dry Weight Start Date: 02/09/22 Status: Ordered omeprazole 20 mg oral enteric coated capsule 1 capsule, By Mouth, Daily, # 90 capsule, 0 Refills, Maintenance, 07/21/22 8:05:00 EST, [facility]/pharmacy #[id number], 183, cm, 07/07/22 10:54:00 EST, Height, [...] 0 Refills, Maintenance, 06/29/21 15:41:00 EST, Capsule, [facility]/pharmacy #[id number], Partial fill upon patient request if the prescription is for a schedule II o... Start Date: 06/29/21 Stop Date: 07/29/21 Status: Ordered primidone 50 mg oral tablet 100 mg, 2, tablet, By Mouth, 3 times a day, Rx'd by Neurology at [facility]/ Dr. Murphy, Refills 0, [...] M51. 26 please send to [facility] [place], 08/08/22 15:41:00 EST, Supply Start Date: 08/08/22 Status: Ordered Symbicort 160mcg/4.5mcg Inhaler 2, puffs, Inhalation, 2 times a day, # 6 Gm, Refills 0, Tot. Refills 0, Maintenance, 12/27/21 12:43:00 EDT, Aerosol, Route to Pharmacy Electronically, [id number], [facility]/pharmacy #[id number], 184, cm, 12/27/21 11:50:00 EDT, Height Start Date: 12/27/21 Status: Ordered Tylenol Extra Strength 500 mg oral tablet 2 tablet = 1,000 mg, By Mouth, 3 times a day, PRN as needed for pain, # 100 tablet, 5 Refills, Maintenance, 12/07/21 10:44:00 EDT, Tablet, [facility]/pharmacy #0791, Partial fill upon patient request if theprescription is for a schedule II opioid drug., 184... Start Date: 12/07/21 Status: Ordered valsartan 320 mg oral tablet 1 tablet, By Mouth, Daily, # 90 tablet, 3 Refills, Maintenance, 03/15/22 14:29:00 EDT, [facility], 183, cm, 02/08/22 6:42:00 EDT, Height, 123.2, [...] provided increased discomfort related to nerves. 3Seeing [place] neurology and sleep. Given a trial of Tegretol 200 mg upto 2 tablets twice a day andadvised to continue with Lyrica 300 mg twice a day. Had some improvement of the facial pain with this regimen. 4Seeing [place] neurology and asleep. On 09/11/2018 started on [...] Parker Position: [facility] JUAN Office Staff Member Role: Lifetime Consulting Physician Name: Ivone Oneil MD Position: [facility] Primary Care Physician Member Role: PCP Address: Address: [address] [place] [address]- Care Team Related Persons Name: JARROD BRADFORD Address: home [address] [place] [address] Name: LOLA BRADFORD Address: home [address] [place] [address] Name: GOLDIE LERMA Address: [place] [address] Name: OLIMPIA LERMA Address: [place] [address] Name: KADE LERMA Address: home [address] [place] [address] Name: KADE LERMA Address: home [address] [place] [address]
--- OUTSIDE RECORDS SUMMARY | 2023-11-02 08:31 | XMS_ITS | Continuity of Care Document ---
Author Organization [facility] Address [address] [place] [address]- Care Team Providers Care Rfid Specialist Name Role Phone Terence PRATHER, Azra Primary Care Physician [phone] Encounter [facility] Date(s): 03/02/20 - 04/01/[address] [address]- [facility] Allergies, Adverse Reactions, Alerts Substance Reaction Severity [...] Route to Pharmacy Electronically, [facility]/pharmacy #[id number], 184, cm, 01/15/20 9:11:00 EDT, Height, 123.27, [...] 08/17/20 13:12:00 EST, Route to Pharmacy Electronically, [facility]/pharmacy #[id number], 184, cm, 02/28/20 15:58:00 [...] MORNING, # 16 mL, 0 Refills, Maintenance, [facility], 30, USE 1 SPRAY IN EACH NOSTRIL [...] provided increased discomfort related to nerves. 3Seeing [place] neurology and sleep. Given a trial of [...]
--- OUTSIDE RECORDS SUMMARY | 2023-11-02 08:31 | XMS_ITS | Continuity of Care Document ---
Author Organization [facility] Address [address] [place] [address]- Care Team Providers Care Resident Inspector Name Role Phone Contractor Krystal FERNANDEZ Primary Care Physician Encounter [facility] Date(s): 08/11/21 - 09/10/21 [facility] [address] [place] [address] Attending Physician: Cristian Padilla Admitting Physician: AdmtrCristian Referring Physician: AdmtrCristian Allergies, Adverse Reactions, Alerts [...] acel(Tdap) 11/25/14 Given 1Result Comment: DILUENT LOT#: [id number] EXP: 11/2022 MFG: FRESENSIUS Medications amitriptyline 100 mg oral tablet 1 tablet = 100 mg, By Mouth, Daily at bedtime, # 30 tablet, 3 Refills, Maintenance, 08/11/21 10:02:00 EST, Tablet, [facility]/pharmacy #[id number], Partial fill upon patient [...] 3 Refills, Maintenance, 03/03/21 17:24:00 EDT, Tablet, [facility]/pharmacy #[id number], Partial fill upo... Start Date: 03/03/21 Status: Ordered aspirin 81 mg oral delayed release tablet 81 mg, 1, tablet, By Mouth, Daily, # 90 tablet, Refills 0, Tot. Refills 0, Maintenance, 01/01/21 11:26:00 EDT, Route to Pharmacy Electronically, [facility]/pharmacy #[id number], Partial fill upon patient [...] 09/14/21 9:39:00 EDT, 09/07/21 9:39:00 EDT, Tablet, [facility]/pharmacy #[id number], g., 1 tablet By Mouth [...] Need length 99 months Please send to [facility], 01/21/21 13:20:00 EDT, Supply Start Date: 01/21/21 Status: Ordered carbidopa-levodopa 25 mg-100 mg oral tablet 1 tablet, By Mouth, 3 times a day, Rx'd by Neurology at [facility] [place]/ Dr. Murphy, # 270 tablet, 0 Refills, Maintenance, 04/15/21 23:30:00 EDT, Tablet, Partial fill upon patient request if the prescription is for a schedule II opioid drug. Start Date: 04/15/21 Status: Ordered chlorthalidone 25 mg oral tablet 1, tablet, By Mouth, Daily, # 30 tablet, Refills 5, Route to Pharmacy Electronically, [facility] STORE [facility], 184, cm, 03/30/21 16:08:00 EDT, Height, 123.27, kg, 06/25/19 13:22:00 EST, Dry Weight Start Date: 04/07/21 Status: Ordered Claritin 10 mg oral tablet 10 mg, 1, tablet, By Mouth, Daily, more sea necesario para alergia, # 30 tablet, Refills 5, Tot. Refills 5, Maintenance, 04/13/21 10:04:00 EDT, Route to Pharmacy Electronically, [facility]/pharmacy #[id number], 184, cm, 04/13/21 9:26:00 EDT, Height, 123.27, kg, 01... Start Date: 04/13/21 Status: Ordered clonazePAM 2 mg oral tablet See Instructions, 1 tablet by mouth only NEEDED for severe panic attack. Dispense: #20 tabs per 20d., # 20 tablet, 0 Refills, Maintenance, 08/18/21 15:21:00 EST, Tablet, [facility]/pharmacy #[id number], Partial fill upon patient [...] 0 Refills, Maintenance, 03/03/21 17:36:00 EDT, Cream, [facility]/pharmacy #[id number], Partial fill upon patient request if the prescription is for a schedule II opioid drug., 1 application Topically 3 ti... Start Date: 03/03/21 Status: Ordered cyanocobalamin 1000 mcg oral tablet 1,000 mcg, 1, tablet, By Mouth, Daily, # 90 tablet, Refills 11, Tot. Refills 11, Maintenance, 07/17/26 13:12:00 EST, Route to Pharmacy Electronically, [facility]/pharmacy #[id number], 184, cm, 07/26/21 9:11:00 EST, Height Start Date: 07/17/26 Stop Date: 07/01/29 Status: Ordered cyanocobalamin 1000 mcg oral tablet 1,000 mcg, 1, tablet, By Mouth, Daily, for 90 days, # 90 tablet, Refills 11, Tot. Refills 11, Hard Stop 07/17/26 13:12:00 EST, 08/02/23 13:12:00 EST, Route to Pharmacy Electronically, [facility]/pharmacy #[id number], 184, cm, 01/01/21 10:56:00 [...] 5 Refills, Maintenance, 01/11/21 15:23:00 EDT, Tablet, [facility]/pharmacy #[id number], Partial fill upon patient request if the prescription is for a schedule II opioid drug., 184, cm,... Start Date: 01/11/21 Status: Ordered escitalopram 20 mg oral tablet 1 tablet = 20 mg, By Mouth, Daily, # 30 tablet, 3 Refills, Maintenance, 07/13/21 12:26:00 EST, Tablet, [facility]/pharmacy #[id number], d/c citalopram 10 mg, 184, cm, 06/14/21 11:01:00 EST, Height Start Date: 07/13/21 Status: Ordered fluticasone 50 mcg/inh nasal spray See Instructions, USE 1 SPRAY IN EACH NOSTRIL EVERY MORNING, # 16 mL, 3 Refills, 01/29/21 9:11:00 EDT, [facility]/pharmacy #[id number], 30, USE 1 SPRAY [...] 2 Refills, Maintenance, 02/10/21 13:09:00 EDT, Ointment, [facility]/pharmacy #[id number], Partial fill upon patient request if the prescription is for a schedule II opioid drug., 1 application Top... Start Date: 02/10/21 Status: Ordered magnesium oxide 400 mg oral tablet 1 tablet = 400 mg, By Mouth, Daily, [facility] Dr. Murphy, 0 Refills, Maintenance, 04/15/21 23:30:00 [...] 3 Refills, Maintenance, 03/03/21 17:29:00 EDT, Tablet, [facility]/pharmacy #[id number], Partial fill upon p... Start Date: 03/03/21 Status: Ordered omega-3 polyunsaturated fatty acids ethyl esters 1000 mg oral capsule 1 capsule = 1,000 mg, By Mouth, 2 times a day, # 60 capsule, 11 Refills, Maintenance, 12/27/21 11:25:00 EDT, Capsule, [facility]/pharmacy #[id number], 1 capsule By Mouth [...] # 90 capsule, 0 Refills, [facility], 184, cm, 06/14/21 11:01:00 EST, Height, 123.27, [...] 28 tablet, 0 Refills, Maintenance, [facility], 184, cm, 02/01/21 10:51:00 EDT, Height, 123.27, [...] provided increased discomfort related to nerves. 3Seeing [place] neurology and sleep. Given a trial of [...]
--- OUTSIDE RECORDS SUMMARY | 2023-11-02 08:31 | XMS_ITS | Continuity of Care Document ---
Author Organization [facility] Address [address] [place] [address]- Care Team Providers Care Utilization Coordinator Name Role Phone Dayo Castano MD Primary Care Phys[id number] Date[facility]s): 08/22/23 - 10/06/[address] [address]- Attending Physician: Not on Staff, Attending MD [...] influenza virus vaccine, inactivated 04/16/15 Give n [id number] 12y+ bivalent booster vax 02/21/23 Given SARS-CoV-2 (COVID-19) mRNA BNT-162b2 vac 1 06/01/21 Given SARS-CoV-2 (COVID-19) mRNA BNT-162b2 vac 11/07/20 Recorded SARS-CoV-2 (COVID-19) mRNA BNT-162b2 vac 10/17/20 Recorded zoster vaccine, inactivated 06/18/19 Recorded zoster vaccine, inactivated 06/17/19 Recorded zoster vaccine, inactivated 11/25/17 Recorded Influenza Vaccine (oldterm) 02/17/17 Recorded pneumococcal 23-valent vaccine 02/16/16 Given tetanus/diphtheria/pertussis, acel(Tdap) 11/25/14 Given 1Result Comment: DILUENT LOT#: [id number] EXP: 11/2022 MFG: FRESENSIUS Medications Albuterol (Eqv-ProAir [...] Daily at bedtime, Rx'd by neurology ([facility]), # 30 tablet, 0 Refills, Maintenance, 12/08/22 [...] 3 Refills, Maintenance, 04/04/23 8:44:00 EDT, Tablet, [facility]/pharmacy #[id number], Partial fill upon patient [...] Need length 99 months [facility], 01/21/21 13:20:00 EDT, Supply Start Date: 01/21/21 [...] 04/04/23 8:45:00 EDT, Route to Pharmacy Electronically, [facility]/pharmacy #[id number], Partial fill upon patient request if the [...] EDT, Supply Start Date: 01/27/21 Status: Ordered [facility] Advanced Healing Ointment 41% [facility] Advanced Healing Ointment 41%, See Instructions, [...] Gm, 5 Refills, Maintenance, 07/04/23 8:59:00 EST, [facility]/pharmacy #[id number], 30, APPLY TOPICALLY TO [...] 04/04/23 8:42:00 EDT, Route to Pharmacy Electronically, [facility]/pharmacy #[id number], 183, cm, 04/04/23 8:24:00EDT, Height, 123.2, kg, 02/07/22 12:47:00 EDT, Dry... Start Date: 04/04/23 Status: Ordered Metamucil 3.4 gm/5.2 gm oral powder for reconstitution = 3.4 Gm, By Mouth, 3 times a day, PRN as needed for constipation, # 425 Gm, 11 Refills, Maintenance, 08/07/23 14:34:00 EST, REC Powder, [facility]/pharmacy #[id number], Partial fill upon patient request if the prescription is for a schedule II opioid drug., 183,... Start Date: 08/07/23 Status: Ordered metFORMIN 500 mg oral tablet 2 tablet, By Mouth, 2 times a day, FOR DIABETES., # 360 tablet, 3 Refills, Maintenance, 09/25/23 15:02:00 EDT, [facility] ST[facility] 40457, 183, cm, 08/22/23 13:24:00 EST, Height, 123.2, [...] SMOKING CESSATION, # 40 gum, 0 Refills, [facility] STORE 94798, 184, cm, 12/27/21 11:50:00 EDT, Height Start [...] Stop 03/29/24 8:46:00 EDT, 04/04/23 8:46:00 EDT, [facility]/pharmacy #[id number], 1 capsule By Mouth 2 times a day,x90 days, 183, cm, 04/04/23 8:24:00 EDT, Height, 123.2, kg, 01/18... Start Date: 04/04/23 Stop Date: 03/29/24 Status: Ordered omeprazole 20 mg oral enteric coated capsule 1 capsule, By Mouth, Daily, # 90 capsule, 3 Refills, Maintenance, 04/04/23 8:46:00 EDT, [facility]/pharmacy #[id number], 183, cm, 04/04/23 8:24:00 EDT, [...] Gm, 1 Refills, Maintenance, 04/04/23 8:46:00 EDT, [facility]/pharmacy #[id number], 14,DISSOLVE 17 GRAMS IN [...] a day, rx'd by neurology at [facility], # 120 tablet, Refills 0, Maintenance, 12/08/22 [...] times a day, Rx'd by neurology at [facility] - [facility], # 270 tablet, 0 [...] DX: M51. 26 please send to [facility], 08/08/22 15:41:00 EST, Supply Start [...] 14:39:00 EST, Aerosol, Route to Pharmacy Electronically, [id number], [facility]/pharmacy #[id number], 183, cm, 08/07/23 14:26:00 [...] 11 Refills, Maintenance, 04/04/23 8:43:00 EDT, Tablet, [facility]/pharmacy #[id number], Partial fill upon patient request if theprescription is for a schedule II opioid drug., 183... Start Date: 04/04/23 Status: Ordered valsartan 320 mg oral tablet 1 tablet, By Mouth, Daily, blood pressure, # 90 tablet, 3 Refills, Maintenance, 04/04/23 8:46:00 EDT, [facility]/pharmacy #[id number], 183, cm, 04/04/23 8:24:00 EDT, Height, 123.2, kg, 02/07/22 12:47:00 EDT, Dry Weight Start Date: 04/04/23 Status: Ordered Vitamin B-12 1000 mcg oral tablet 1, tablet, By Mouth, Daily, # 90 tablet, Refills 1, Maintenance, 08/28/23 13:12:00 EDT, Route to Pharmacy Electronically, [facility] STORE 04947, 183, cm, 08/22/23 13:24:00 EST, Height, 123.2, kg, 02/07/22 12:47:00 EDT, Dry Weight Start Date: 08/28/23 Status: Ordered Xopenex HFA 45 mcg/inh inhalation aerosol 2 puffs, Inhalation, Every 4 hours, PRN Wheezing/Shortness of Breath, replaces Ventolin due to reaction, # 1 each, 1 Refills, Maintenance, 02/15/23 11:23:00 EDT, [facility]erosol, [facility], Partial fill upon patient request if the [...] provided increased discomfort related to nerves. 3Seeing [place] neurology and sleep. Given a trial of [...] Care Team Personnel Name: Casandra Parker Position: [facility] JUAN Office Staff Member Role: Lifetime Consulting Physician Name: Dayo Castano MD Position: [facility] Physician - Primary Care Member Role: PCP Address: Address: [address] [place] [address] [place] Care Team Related Persons Name: MURRAYNESSAJOSIASLinda Address: home [address] [place] [address] Name: MURRAYYAHAIRALOLA Roberts Address: home [address] [place] [address] Name: GOLDIE LERMA Address: [place] [address] Name: CASANDRA ELRMA Address: [place] [address] Name: KADE LERMA Address: home [address] [place] [address] Name: KADE LERMA Address: home [address] [place] [address]
--- OUTSIDE RECORDS SUMMARY | 2023-11-02 08:31 | XMS_ITS | Continuity of Care Document ---
Author Organization [facility] Address [address] [place] [address]- Care Team Providers Care Travel Money Advisor Name Role Phone Beth PRATHER, Elian W Primary Care Physician [phone] Encounter [facility] Date(s): 06/25/19 - 07/05/19 [facility] [address] [place] [address]- [facility] Attending Physician: Admtr, Hayden8 Admitting Physician: Admtr, Hayden8 Referring Physician: Admtr, Ar8 Allergies, Adverse Reactions, [...] provided increased discomfort related to nerves. 3Seeing [place] neurology and sleep. Given a trial of Tegretol 200 mg upto 2 tablets twice a day andadvised to continue with Lyrica 300 mg twice a day. Had some improvement of the facial pain with this regimen. 4Seeing [place] neurology and asleep. On 09/11/2018 started on [...]
--- OUTSIDE RECORDS SUMMARY | 2023-11-02 08:31 | XMS_ITS | Continuity of Care Document ---
Author Organization [facility] Address [address] [place] [address]- Care Team Providers Care Corrective Therapy Aide Teacher Name Role Phone Terence PRATHER, Azar Primary Care Physician [phone] Encounter [facility] Date(s): 10/03/20 - 11/02/20 [facility] [address] [place], [place] [address] Attending Physician: Cristian Padilla Admitting Physician: AdmtrCristian [...] 15:08:00 EDT, Route to Pharmacy Electronically, [facility]/pharmacy #[id number], 184, cm, 10/30/20 14:15:00 EDT, Height, 123.27, kg, 06/25/19 13:22:00 EST, Dry Weight Start Date: 10/30/20 Status: Ordered aspirin 81 mg oral tablet 1 tablet = 81 mg, By Mouth, Daily, # 90 tablet, 3 Refills, Maintenance, 01/15/20 9:51:00 EDT, Tablet, [facility]/pharmacy #[id number], 184, cm, 01/15/20 9:11:00 [...] 9:49:00 EDT, Route to Pharmacy Electronically, [facility]/pharmacy #[id number], 184, cm, 01/29/20 14:16:00 [...] 13:12:00 EST, Route to Pharmacy Electronically, [facility]/pharmacy #[id number], 184, cm, 02/28/20 15:58:00 [...] 3 Refills, Maintenance, 10/30/20 15:08:00 EDT, Tablet, [facility]/pharmacy #[id number], 184, cm, 10/30/20 14:15:00 EDT, Height, 123.27, kg, 06/25/19 13:22:00 EST, Dry Weight Start Date: 10/30/20 Status: Ordered fluocinonide 0.05% topical cream See Instructions, 1 application Topically 3 times a day, as needed, for itchy rash. apply a thin film to affected areas, # 30 Gm, 0 Refills, Maintenance, 10/03/20 15:41:00 EDT, Cream, [facility]/pharmacy #[id number], Partial fill upon patient request if the presc... Start Date: 10/03/20 Status: Ordered fluticasone 50 mcg/inh nasal spray See Instructions, USE 1 SPRAY IN EACH NOSTRIL EVERY MORNING, # 16 mL, 0 Refills, Maintenance, [facility] 31418, 30, USE 1 SPRAY IN EACH NOSTRIL [...] Refills, Maintenance, 01/27/20 10:39:00 EDT, Capsule, [facility]/pharmacy #[id number], 184, cm, 01/15/20 9:52:00 EDT, Height, 123.27, kg, 06/25/19 13:22:00 EST, Dry Weight Start Date: 01/27/20 Stop Date: 07/25/20 Status: Ordered metFORMIN 500 mg oral tablet 1 tablet = 500 mg, By Mouth, Daily, with meals, # 90 tablet, 11 Refills, Maintenance, 03/02/20 9:56:00 EDT, Tablet, [facility]/pharmacy #[id number], 184, cm, 02/28/20 15:58:00 [...] provided increased discomfort related to nerves. 3Seeing [place] neurology and sleep. Given a trial of Tegretol 200 mg upto 2 tablets twice a day andadvised to continue with Lyrica 300 mg twice a day. Had some improvement of the facial pain with this regimen. 4Seeing [place] neurology and asleep. On 09/11/2018 started on [...]
--- OUTSIDE RECORDS SUMMARY | 2023-11-02 08:31 | XMS_ITS | Continuity of Care Document ---
Author Organization [facility] Address [address] [place] [address]- Care Team Providers Care Rehabilitation Therapy Technician Name Role Phone Ivone Oneil MD Primary Care Physician Encounter [facility] Date(s): 08/05/22 - 09/04/[address] [address] Allergies, Adverse Reactions, Alerts Substance [...] acel(Tdap) 11/25/14 Given 1Result Comment: DILUENT LOT#: [id number] EXP: 11/2022 MFG: FRESENSIUS Medications amitriptyline 100 mg oral tablet 1 tablet = 100 mg, By Mouth, Daily at bedtime, # 30 tablet, 3 Refills, Maintenance, 12/27/21 12:09:00 EDT, Tablet, [facility]/pharmacy #[id number], Partial [...] 1 Refills, Maintenance, 05/13/22 14:40:00 EST, Tablet, [facility]/pharmacy #[id number], Partial fill [...] Need length 99 months Please send to [facility], 01/21/21 13:20:00 EDT, Supply [...] 0 Refills, Maintenance, 08/18/21 15:21:00 EST, Tablet, [facility]/pharmacy #[id number], Partial fill [...] 07/17/26 13:12:00 EST, Route to Pharmacy Electronically, [facility]/pharmacy #[id number], 184, cm, 07/26/21 9:11:00 [...] Refills, Maintenance, 07/28/22 8:54:00 EST, [id number], 30, APPLY TOPICALLY TO AFFECTED ARE TWICE A DAY NEEDED FOR PAIN, 183, cm, 07/07/22 10:54:00 E... Start Date: 07/28/22 Status: Ordered empagliflozin 10 mg oral tablet 1 tablet = 10 mg, By Mouth, Daily in AM, # 30 tablet, 2 Refills, Maintenance, 08/23/22 8:44:00 EST,Tablet, [facility]/pharmacy #[id number], Partial fill upon [...] 2 Refills, Maintenance, 08/23/22 8:44:00 EST, Tablet, [facility]/pharmacy #[id number], Label in burundian, cetrizine not effective, 1 tablet By Mouth Daily in AM, 183, cm, 08/22/22 8:28:00 EST, Height, 123.2, kg,... Start Date: 08/23/22 Status: Ordered loratadine 10 mg oral tablet 1, tablet, By Mouth, Daily, PRN, # 90 tablet, Refills 1, NEEDED FOR ALLERGIES, Route to PharmacyElectronically, [id number], 184, cm, 10/18/21 13:37:00 EDT, Height Start Date: 10/22/21 Status: Ordered magnesium oxide 400 mg oral tablet 1 tablet = 400 mg, By Mouth, Daily, Rx'd by Neurology at [facility] Alisa Vancourt/ Dr. Murphy, 0 Refills, Maintenance, 04/15/21 23:30:00 [...] tablet, 3 Refills, Maintenance, 09/16/2211:15:00 EDT, Tablet, [facility]/pharmacy #[id number], Partial f... Start Date: 09/15/21 Status: Ordered Nicotine 2 mg gum See Instructions, CHEW 1 PIECE OF GUM EVERY 2 HOURS NEEDED FOR SMOKING CESSATION, # 40 gum, 0 Refills, [facility], 184, cm, 12/27/21 11:50:00 EDT, Height Start [...] a day, # 180 capsule, 3 Refills, [facility], 90, TAKE 1 CAPSULE BY MOUTH TWICE A DAY, 183, cm, 02/08/22 6:42:00 EDT, Height, 123.2, kg, 02/07/22 12:47:00 EDT, Dry Weight Start Date: 02/09/22 Status: Ordered omeprazole 20 mg oral enteric coated capsule 1 capsule, By Mouth, Daily, # 90 capsule, 0 Refills, Maintenance, 07/21/22 8:05:00 EST, [facility]/pharmacy #[id number], 183, cm, 07/07/22 10:54:00 [...] Gm, 1 Refills, Maintenance, 08/31/22 9:06:00 EDT, [facility]/pharmacy #[id number], 14,DISSOLVE 17 GRAMS IN WATER & DRINK ONCE A DAY UNTIL BM,... Start Date: 08/31/22 Status: Ordered pregabalin 300 mg oral capsule 1 capsule = 300 mg, By Mouth, 2 times a day, PRN pain, one tab twice daily prn pain, # 60 capsule, 0 Refills, Maintenance, 06/29/21 15:41:00 EST, Capsule, [facility]/pharmacy #[id number], Partial fill upon patient request if the prescription is for a schedule II o... Start Date: 06/29/21 Stop Date: 07/29/21 Status: Ordered primidone 50 mg oral tablet 100 mg, 2, tablet, By Mouth, 3 times a day, Rx'd by Neurology at [facility] Alisa Lazaro/ Dr. Murphy, Refills 0, Maintenance, [...] Maintenance, DX: M51. 26 please send to [facility], 08/08/22 15:41:00 EST, Supply Start Date: 08/08/22 Status: Ordered Symbicort 160mcg/4.5mcg Inhaler 2, puffs, Inhalation, 2 times a day, # 6 Gm, Refills 0, Tot. Refills 0, Maintenance, 12/27/21 12:43:00 EDT, Aerosol, Route to Pharmacy Electronically, [id number], [facility]/pharmacy #[id number], 184, cm, 12/27/21 11:50:00 EDT, Height Start Date: 12/27/21 Status: Ordered Tylenol Extra Strength 500 mg oral tablet 2 tablet = 1,000 mg, By Mouth, 3 times a day, PRN as needed for pain, # 100 tablet, 5 Refills, Maintenance, 12/07/21 10:44:00 EDT, Tablet, [facility]/pharmacy #[id number], Partial fill upon patient request if theprescription is for a schedule II opioid drug., 184... Start Date: 12/07/21 Status: Ordered valsartan 320 mg oral tablet 1 tablet, By Mouth, Daily, # 90 tablet, 3 Refills, Maintenance, 03/15/22 14:29:00 EDT, [facility], 183, cm, 02/08/22 6:42:00 EDT, Height, 123.2, [...] provided increased discomfort related to nerves. 3Seeing [place] neurology and sleep. Given a trial of Tegretol 200 mg upto 2 tablets twice a day andadvised to continue with Lyrica 300 mg twice a day. Had some improvement of the facial pain with this regimen. 4Seeing [place] neurology and asleep. On 09/11/2018 started on [...] Care Team Personnel Name: Olimpia Parker Position: [facility] Office Staff Member Role: Lifetime Consulting Physician Name: Ivone Oneil MD Position: [facility] Primary Care Physician Member Role: PCP Address: Address: [address] [place] [address]- Care Team Related Persons Name: JARROD BRADFORD Address: home [address] [place] [address] Name: LOLA BRADFORD Address: home [address] [place] [address] Name: GOLDIE LERMA Address: [place] [address] Name: OLIMPIA LERMA Address: [place] [address] Name: KADE LERMA Address: home [address] [place] [address] Name: KADE LERMA Address: home [address] [place] [address]
--- OUTSIDE RECORDS SUMMARY | 2023-11-02 08:31 | XMS_ITS | Continuity of Care Document ---
Author Organization [facility] Address [address] [place] [address]- Care Team Providers Care Marine Diver Name Role Phone Daoy Castano MD Primary Care Physician Encounter [facility] Date(s): 09/13/23 - 10/13/[address] [address]- Allergies, Adverse Reactions, Alerts Substance Reaction Severity Status penicillin Unknown Active gabapentin Active Lantus Active Flovent HFA Active ZyrTEC Active SEROquel Active hydrOXYzine hydrochloride Ac tive Ventolin HFA Active traZODone Active Immunizations Given [...] influenza virus vaccine, inactivated 04/16/15 Give n [id number] 12y+ bivalent booster vax 02/21/23 Given SARS-CoV-2 (COVID-19) mRNA BNT-162b2 vac 1 06/01/21 Given SARS-CoV-2 (COVID-19) mRNA BNT-162b2 vac 11/07/20 Recorded SARS-CoV-2 (COVID-19) mRNA BNT-162b2 vac 10/17/20 Recorded zoster vaccine, inactivated 06/18/19 Recorded zoster vaccine, inactivated 06/17/19 Recorded zoster vaccine, inactivated 11/25/17 Recorded Influenza Vaccine (oldterm) 02/17/17 Recorded pneumococcal 23-valent vaccine 02/16/16 Given tetanus/diphtheria/pertussis, acel(Tdap) 11/25/14 Given 1Result Comment: DILUENT LOT#: [id number] EXP: 11/2022 MFG: FRESENSIUS Medications Albuterol (Eqv-ProAir [...] at bedtime, Rx'd by neurology ([facility]), # 30 tablet, 0 Refills, Maintenance, 12/08/22 [...] Need length 99 months Please send to [facility], 01/21/21 13:20:00 EDT, Supply Start Date: 01/21/21 Status: Ordered carbidopa-levodopa 25 mg-100 mg oral tablet 1 tablet, By Mouth, 2 times a day, Rx'd by neurology at [facility], # 60 tablet, 0 Refills, Maintenance, 10/04/22 8:23:00 EDT, Tablet, Partial fill upon patient request if the prescription is for a schedule II opioid drug. Start Date: 10/04/22 Status: Ordered chlorthalidone 25 mg oral tablet 25 mg, 1, tablet, By Mouth, Daily in AM, Blood pressure, # 90 tablet, Refills 3, Tot. Refills 3, Maintenance, 04/04/23 8:45:00 EDT, Route to Pharmacy Electronically, [facility]/pharmacy #[id number], Partial fill upon patient request if the [...] EDT, Supply Start Date: 01/27/21 Status: Ordered [facility] Advanced Healing Ointment 41% [facility] Advanced Healing Ointment 41%, See Instructions, # [...] Gm, 5 Refills, Maintenance, 07/04/23 8:59:00 EST, [facility]/pharmacy #[id number], 30, APPLY TOPICALLY TO AFFECTED [...] bedtime, Rx'd by neurology at [facility], 0 Refills, Maintenance, 10/04/22 8:24:00 EDT, Capsule, Partial fill upon patient request if the prescription is for a schedule II opioid drug. Start Date: 10/04/22 Status: Ordered loratadine 10 mg oral tablet 1, tablet, By Mouth, Daily, PRN, # 90 tablet, Refills 3, Tot. Refills 3, NEEDED FOR ALLERGIES, 04/04/23 8:42:00 EDT, Route to Pharmacy Electronically, [facility]/pharmacy #[id number], 183, cm, 04/04/23 8:24:00EDT, Height, 123.2, kg, 02/07/22 12:47:00 EDT, Dry... Start Date: 04/04/23 Status: Ordered Metamucil 3.4 gm/5.2 gm oral powder for reconstitution = 3.4 Gm, By Mouth, 3 times a day, PRN as needed for constipation, # 425 Gm, 11 Refills, Maintenance, 08/07/23 14:34:00 EST, REC Powder, [facility]/pharmacy #[id number], Partial fill upon patient request if the prescription is for a schedule II opioid drug., 183,... Start Date: 08/07/23 Status: Ordered metFORMIN 500 mg oral tablet 2 tablet, By Mouth, 2 times a day, FOR DIABETES., # 360 tablet, 3 Refills, Maintenance, 09/25/23 15:02:00 EDT, [facility] STORE [id number], 183, cm, 08/22/23 13:24:00 EST, Height, 123.2, [...] SMOKING CESSATION, # 40 gum, 0 Refills, [facility] STORE 55176, 184, cm, 12/27/21 11:50:00 EDT, Height Start [...] Stop 03/29/24 8:46:00 EDT, 04/04/23 8:46:00 EDT, [facility]/pharmacy #[id number], 1 capsule By Mouth 2 times a day,x90 days, 183, cm, 04/04/23 8:24:00 EDT, Height, 123.2, kg, 01/18... Start Date: 04/04/23 Stop Date: 03/29/24 Status: Ordered omeprazole 20 mg oral enteric coated capsule 1 capsule, By Mouth, Daily, # 90 capsule, 3 Refills, Maintenance, 04/04/23 8:46:00 EDT, [facility]/pharmacy #[id number], 183, cm, 04/04/23 8:24:00 EDT, [...] Gm, 1 Refills, Maintenance, 04/04/23 8:46:00 EDT, [facility]/pharmacy #[id number], 14,DISSOLVE 17 GRAMS IN WATER & DRINK ONCE A DAY UNTIL BM,... Start Date: 04/04/23 Status: Ordered pregabalin 300 mg oral capsule 1 capsule = 300 mg, By Mouth, 2 times a day, Rx'd by neurology at [facility], # 60 capsule, 0 Refills, Maintenance, 10/04/22 8:24:00 EDT, Capsule, Partial fill upon patient request if the prescription is for a schedule II opioid drug. Start Date: 10/04/22 Status: Ordered primidone 50 mg oral tablet 100 mg, 2, tablet, By Mouth, 2 times a day, rx'd by neurology at [facility], # 120 tablet, Refills 0, Maintenance, 12/08/22 [...] day, Rx'd by neurology at [facility] - Alisa Lazaro, # 270 tablet, 0 [...] Maintenance, DX: M51. 26 please send to [facility], 08/08/22 15:41:00 EST, Supply Start [...] 14:39:00 EST, Aerosol, Route to Pharmacy Electronically, [id number], [facility]/pharmacy #[id number], 183, cm, 08/07/23 14:26:00 EST, [...] 11 Refills, Maintenance, 04/04/23 8:43:00 EDT, Tablet, [facility]/pharmacy #[id number], Partial fill upon patient request if theprescription is for a schedule II opioid drug., 183... Start Date: 04/04/23 Status: Ordered valsartan 320 mg oral tablet 1 tablet, By Mouth, Daily, blood pressure, # 90 tablet, 3 Refills, Maintenance, 04/04/23 8:46:00 EDT, [facility]/pharmacy #[id number], 183, cm, 04/04/23 8:24:00 EDT, Height, 123.2, kg, 02/07/22 12:47:00 EDT, Dry Weight Start Date: 04/04/23 Status: Ordered Vitamin B-12 1000 mcg oral tablet 1, tablet, By Mouth, Daily, # 90 tablet, Refills 1, Maintenance, 08/28/23 13:12:00 EDT, Route to Pharmacy Electronically, [facility] [id number], 183, cm, 08/22/23 13:24:00 EST, Height, 123.2, kg, 02/07/22 12:47:00 EDT, Dry Weight Start Date: 08/28/23 Status: Ordered Xopenex HFA 45 mcg/inh inhalation aerosol 2 puffs, Inhalation, Every 4 hours, PRN Wheezing/Shortness of Breath, replaces Ventolin due to reaction, # 1 each, 1 Refills, Maintenance, 02/15/23 11:23:00 EDT, [facility]erosol, [id number], Partial fill upon patient request if the [...] provided increased discomfort related to nerves. 3Seeing [place] neurology and sleep. Given a trial of [...] Care Team Personnel Name: Olimpia Parker Position: [facility] Office Staff Member Role: Lifetime Consulting Physician Name: Dayo Castano MD Position: [facility] Physician - Primary Care Member Role: PCP Address: Address: [address] [place] [address]- Care Team Related Persons Name: JARROD BRADFORD Address: home [address] [place] [address] Name: LOLA BRADFORD Address: home [address] [place] [address] Name: GOLDIE LERMA Address: [place] [address] Name: OLIMPIA LERMA Address: [place] [address] Name: KADE LERMA Address: home [address] [place] [id number] Name: KADE LERMA Address: home [address] [place] [id number]
--- OUTSIDE RECORDS SUMMARY | 2023-11-02 08:31 | XMS_ITS | Continuity of Care Document ---
Author Organization [facility] Address [address] [place] [address]- Care Team Providers Care Strategic Sourcing Specialist Name Role Phone Contractor Krystal FERNANDEZ Primary Care Physician Encounter [facility] Date(s): 01/08/21 - 02/07/[address] [address] Allergies, Adverse Reactions, Alerts [...] 10/30/20 15:08:00 EDT, Route to Pharmacy Electronically, [facility]/pharmacy #[id number], 184, cm, 10/30/20 14:15:00 EDT, Height, 123.27, kg, 06/25/19 13:22:00 EST, Dry Weight Start Date: 10/30/20 Status: Ordered aspirin 81 mg oral delayed release tablet 81 mg, 1, tablet, By Mouth, Daily, # 90 tablet, Refills 0, Tot. Refills 0, Maintenance, 01/01/21 11:26:00 EDT, Route to Pharmacy Electronically, [facility]/pharmacy #[id number], Partial fill upon patient request [...] Need length 99 months Please send to [facility], 01/21/21 13:20:00 EDT, Supply Start Date: 01/21/21 Status: Ordered Claritin 10 mg oral tablet 10 mg, 1, tablet, By Mouth, Daily, # 30 tablet, Refills 3, Tot. Refills 3, Maintenance, 01/29/21 9:13:00 EDT, Route to Pharmacy Electronically, [facility]/pharmacy #[id number], 184, cm, 01/29/21 9:06:00 EDT, [...] 08/17/20 13:12:00 EST, Route to Pharmacy Electronically, [facility]/pharmacy #[id number], 184, cm, 02/28/20 15:58:00 EDT, Height, 123.27,... Start Date: 08/17/20 Stop Date: 08/02/23 Status: Ordered cyanocobalamin 1000 mcg oral tablet 1,000 mcg, 1, tablet, By Mouth, Daily, # 90 tablet, Refills 11, Tot. Refills 11, Maintenance, 08/02/23 13:12:00 EST, Route to Pharmacy Electronically, [facility]/pharmacy #[id number], 184, cm, 01/01/21 10:56:00 EDT, [...] 3 Refills, Maintenance, 01/01/21 11:24:00 EDT, Tablet, [facility]/pharmacy #[id number], 184, cm, 01/01/21 10:56:00 EDT, Height, 123.27, kg, 06/25/19 13:22:00 EST, Dry Weight Start Date: 01/01/21 Status: Ordered docusate sodium 100 mg oral tablet 1 tablet = 100 mg, By Mouth, 2 times a day, PRN for constipation, # 60 tablet, 5 Refills, Maintenance, 01/11/21 15:23:00 EDT, Tablet, [facility]/pharmacy #[id number], Partial fill upon patient request if the prescription is for a schedule II opioid drug., 184, cm,... Start Date: 01/11/21 Status: Ordered fluticasone 50 mcg/inh nasal spray See Instructions, USE 1 SPRAY IN EACH NOSTRIL EVERY MORNING, # 16 mL, 3 Refills, 01/29/21 9:11:00 EDT, [facility]/pharmacy #[id number], 30, USE 1 SPRAY IN [...] 2 Refills, Maintenance, 02/01/21 11:12:00 EDT, Ointment, [facility]/pharmacy #[id number], Partial fill upon patient request [...] 11 Refills, Maintenance, 01/01/21 11:25:00 EDT, Capsule, [facility]/pharmacy #[id number], 1 capsule By Mouth 2 times a day,x30 days, 184, cm, 01/01/21 10:56:00 EDT, Height, 123.27, kg, 06/25/19 13:22:00... Start Date: 01/01/21 Stop Date: 12/27/21 Status: Ordered omeprazole 20 mg oral enteric coated capsule 1 capsule = 20 mg, By Mouth, Daily, # 30 capsule, 2 Refills, Maintenance, 02/06/20 16:40:00 EDT, ECCapsule, [facility]/pharmacy #[id number], 184, cm, 01/29/20 14:16:00 EDT, [...] DX: M51. [address] [facility], 01/21/21 13:20:00 EDT, Supply Start Date: 01/21/21 Status: Ordered sulindac 150 mg oral tablet See Instructions, TAKE 1 TABLET BY MOUTH TWICE A DAY NEEDED FOR PAIN, # 28 tablet, 0 Refills, Maintenance, [id number], 184, cm, 02/01/21 10:51:00 EDT, Height, 123.27, [...] provided increased discomfort related to nerves. 3Seeing [place] neurology and sleep. Given a trial of Tegretol 200 mg upto 2 tablets twice a day andadvised to continue with Lyrica 300 mg twice a day. Had some improvement of the facial pain with this regimen. 4Seeing [place] neurology and asleep. On 09/11/2018 started on [...]
--- OUTSIDE RECORDS SUMMARY | 2023-11-02 08:31 | XMS_ITS | Continuity of Care Document ---
Author Organization [facility] Address [address] [place] [address]- Care Team Providers Care Poured Wall Foreman Name Role Phone Dayo Castano MD Primary Care Physician [phone] Encounter [facility] Date(s): 02/15/23 - 05/04/[address] [address]- Attending Physician: Jong Bar MD Admitting Physician: Jong Bar MD Referring Physician: Gay Kaur Allergies, Adverse Reactions, Alerts Substance Reaction Severity [...] influenza virus vaccine, inactivated 04/16/15 Give n [id number] 12y+ bivalent booster vax 02/21/23 Given SARS-CoV-2 (COVID-19) mRNA BNT-162b2 vac 1 06/01/21 Given SARS-CoV-2 (COVID-19) mRNA BNT-162b2 vac 11/07/20 Recorded SARS-CoV-2 (COVID-19) mRNA BNT-162b2 vac 10/17/20 Recorded zoster vaccine, inactivated 06/18/19 Recorded zoster vaccine, inactivated 06/17/19 Recorded zoster vaccine, inactivated 11/25/17 Recorded Influenza Vaccine (oldterm) 02/17/17 Recorded pneumococcal 23-valent vaccine 02/16/16 Given tetanus/diphtheria/pertussis, acel(Tdap) 11/25/14 Given 1Result Comment: DILUENT LOT#: [id number] EXP: 11/2022 MFG: FRESENSIUS Medications Albuterol (Eqv-ProAir HFA) 90 mcg/inh inhalation aerosol 2 puffs, Inhalation, Every 6 hours, please give pt whatver is covered by his insrance use with spacer chamber, # 18 Gm, 11 Refills, Maintenance, 04/04/23 8:43:00 EDT, [facility]/pharmacy #[id number], Partial fillupon patient request if the prescription is for a... Start Date: 04/04/23 Status: Ordered amitriptyline 100 mg oral tablet 1 tablet = 100 mg, By Mouth, Daily at bedtime, Rx'd by neurology ([facility]), # 30 tablet, 0 Refills, Maintenance, [...] 3 Refills, Maintenance, 04/04/23 8:44:00 EDT, Tablet, [facility]/pharmacy #[id number], Partial fill upon patient [...] Need length 99 months Please send to [facility], 01/21/21 13:20:00 EDT, Supply Start Date: 01/21/21 Status: Ordered carbidopa-levodopa 25 mg-100 mg oral tablet 1 tablet, By Mouth, 2 times a day, Rx'd by neurology at [facility], # 60 tablet, 0 Refills, Maintenance, 10/04/22 8:23:00 EDT, Tablet, Partial fill upon patient request if the prescription is for a schedule II opioid drug. Start Date: 10/04/22 Status: Ordered chlorthalidone 25 mg oral tablet 25 mg, 1, tablet, By Mouth, Daily in AM, Blood pressure, # 90 tablet, Refills 3, Tot. Refills 3, Maintenance, 04/04/23 8:45:00 EDT, Route to Pharmacy Electronically, [facility]/pharmacy #[id number], Partial fill upon patient request if [...] 04/04/23 8:46:00 EDT, Route to Pharmacy Electronically, [facility]/pharmacy #[id number], 183, cm, 04/04/23 8:24:00 EDT, Height, [...] Gm, 5 Refills, Maintenance, 01/26/23 9:21:00 EDT, [facility]/pharmacy #[id number], 30, APPLY TOPICALLY TO AFFECTED ARE [...] Daily at bedtime, Rx'd by neurology at [facility], 0 Refills, Maintenance, 10/04/22 8:24:00 EDT, Capsule, Partial fill upon patient request if the prescription is for a schedule II opioid drug. Start Date: 10/04/22 Status: Ordered loratadine 10 mg oral tablet 1, tablet, By Mouth, Daily, PRN, # 90 tablet, Refills 3, Tot. Refills 3, NEEDED FOR ALLERGIES, 04/04/23 8:42:00 EDT, Route to Pharmacy Electronically, [facility]/pharmacy #[id number], 183, cm, 04/04/23 8:24:00EDT, Height, 123.2, [...] SMOKING CESSATION, # 40 gum, 0 Refills, [facility] STORE 39243, 184, cm, 12/27/21 11:50:00 EDT, Height Start [...] times a day, Rx'd by neurology at [facility], # 60 capsule, 0 Refills, Maintenance, 10/04/22 8:24:00 EDT, Capsule, Partial fill upon patient request if the prescription is for a schedule II opioid drug. Start Date: 10/04/22 Status: Ordered primidone 50 mg oral tablet 100 mg, 2, tablet, By Mouth, 2 times a day, rx'd by neurology at [facility], # 120 tablet, Refills 0, Maintenance, [...] times a day, Rx'd by neurology at [facility], # 270 tablet, 0 Refills, Maintenance, [...] 26 please send to [facility], 08/08/22 15:41:00 EST, Supply Start Date: 08/08/22 Status: Ordered Symbicort 160mcg/4.5mcg Inhaler 2, puffs, Inhalation, 2 times a day, # 6 Gm, Refills 11, Tot. Refills 11, Maintenance, 04/04/23 8:44:00 EDT, Aerosol, Route to Pharmacy Electronically, [id number], [facility]/pharmacy #[id number], 183, cm, 04/04/23 8:24:00 EDT, Height, [...] provided increased discomfort related to nerves. 3Seeing [place] neurology and sleep. Given a trial of [...] Team Personnel Name: Olimpia Parker Position: [facility] Office Staff Member Role: Lifetime Consulting Physician Name: Dayo Castano MD Position: [facility] Physician - Primary Care Member Role: PCP Address: Address: [address] [place] [address]- Care Team Related Persons Name: JARROD BRADFORD Address: home [address] [place] [address] Name: LOLA BRADFORD Address: home [address] [place] [address] Name: GOLDIE LERMA Address: [place] [address] Name: OLIMPIA LERMA Address: [place] [address] Name: KADE LERMA Address: home [address] [facility] [address] [place] [address] Name: KADE LERMA Address: home [address] [facility] [address] [place] [address]
--- OUTSIDE RECORDS SUMMARY | 2023-11-02 08:31 | XMS_ITS | Continuity of Care Document ---
Author Organization [facility] Address [address] [place] [address]- Care Team Providers Care Solutions Consultant Name Role Phone Contractor Krystal FERNANDEZ Primary Care Physician [phone] Encounter [facility] Date(s): 08/20/21 - 09/19/[address] [address]- Allergies, Adverse Reactions, Alerts Substance Reaction Severity [...] acel(Tdap) 11/25/14 Given 1Result Comment: DILUENT LOT#: [id number] EXP: 11/2022 MFG: FRESENSIUS Medications amitriptyline 100 [...] Need length 99 months Please send to [facility], 01/21/21 13:20:00 EDT, Supply Start Date: 01/21/21 Status: Ordered carbidopa-levodopa 25 mg-100 mg oral tablet 1 tablet, By Mouth, 3 times a day, [facility], # 270 tablet, 0 Refills, Maintenance, 04/15/21 23:30:00 EDT, Tablet, Partial fill upon patient request if the prescription is for a schedule II opioid drug. Start Date: 04/15/21 Status: Ordered chlorthalidone 25 mg oral tablet 1, tablet, By Mouth, Daily, # 30 tablet, Refills 5, Route to Pharmacy Electronically, [id number], 184, cm, 03/30/21 16:08:00 EDT, Height, 123.27, [...] Daily, Rx'd by Neurology at [facility]/ Dr. Murphy, 0 Refills, Maintenance, [...] tablet, 3 Refills, Maintenance, 09/16/2211:15:00 EDT, Tablet, [facility]/pharmacy #[id number], Partial f... Start [...] 12/27/21 11:25:00 EDT, 01/01/21 11:25:00 EDT, Capsule, [facility]/pharmacy #[id number], 184, cm, 01/01/21 10:56:00 EDT, Height, 123.27, kg, 06/25/19 13:22:00 EST, Dry W... Start Date: 01/01/21 Stop Date: 12/27/21 Status: Ordered omeprazole 20 mg oral enteric coated capsule 1 capsule, By Mouth, Daily, # 90 capsule, 0 Refills, [facility], 184, cm, 06/14/21 11:01:00 EST, Height, 123.27, [...] DX: M51. [address] [facility], 01/21/21 13:20:00 EDT, Supply Start Date: 01/21/21 Status: Ordered sulindac 150 mg oral tablet See Instructions, TAKE 1 TABLET BY MOUTH TWICE A DAY NEEDED FOR PAIN, # 28 tablet, 0 Refills, Maintenance, [facility], 184, cm, 02/01/21 10:51:00 EDT, Height, 123.27, [...] provided increased discomfort related to nerves. 3Seeing [place] neurology and sleep. Given a trial of Tegretol 200 mg upto 2 tablets twice a day andadvised to continue with Lyrica 300 mg twice a day. Had some improvement of the facial pain with this regimen. 4Seeing [place] neurology and asleep. On 09/11/2018 started on [...]
--- OUTSIDE RECORDS SUMMARY | 2023-11-02 08:31 | XMS_ITS | Continuity of Care Document ---
Author Organization [facility] Address [address] [place] [address]- Care Team Providers Care Member Services Coordinator Name Role Phone Ivone Oneil MD Primary Care Physician [id number] Date(s): 11/05/21 - 12/22/[address] [address]- Attending Physician: Not on Staff, Attending MD [...] acel(Tdap) 11/25/14 Given 1Result Comment: DILUENT LOT#: [id number] EXP: 11/2022 MFG: FRESENSIUS Medications amitriptyline 100 [...] Need length 99 months Please send to [facility], 01/21/21 13:20:00 EDT, Supply Start Date: 01/21/21 Status: Ordered carbidopa-levodopa 25 mg-100 mg oral tablet 1 tablet, By Mouth, 3 times a day, [facility] Dr. Mup[facility]hy, # 270 tablet, 0 Refills, Maintenance, 04/15/21 23:30:00 EDT, Tablet, Partial fill upon patient request if the prescription is for a schedule II opioid drug. Start Date: 04/15/21 Status: Ordered chlorthalidone 25 mg oral tablet 1, tablet, By Mouth, Daily, # 30 tablet, Refills 5, Tot. Refills 5, 09/28/21 8:08:00 EDT, Route to Pharmacy Electronically, [facility]/pharmacy #[id number], 184, cm, 09/15/21 9:12:00 EDT, Height Start Date: 09/28/21 Status: Ordered clonazePAM 2 mg oral tablet See Instructions, 1 tablet by mouth only NEEDED for severe panic attack. Dispense: #20 tabs per 20d., # 20 tablet, 0 Refills, Maintenance, 08/18/21 15:21:00 EST, Tablet, [facility]/pharmacy #[id number], Partial fill upon patient [...] 0 Refills, Maintenance, 10/07/21 20:16:00 EDT, Cream, [facility]/pharmacy #[id number], Partial fill upon patient request if the prescription is for a schedule II opioid drug., 1 application Topically 3 ti... Start Date: 10/07/21 Status: Ordered cyanocobalamin 1000 mcg oral tablet 1,000 mcg, 1, tablet, By Mouth, Daily, # 90 tablet, Refills 11, Tot. Refills 11, Maintenance, 07/17/26 13:12:00 EST, Route to Pharmacy Electronically, [facility]/pharmacy #[id number], 184, cm, 07/26/21 9:11:00 EST, Height Start Date: 07/17/26 Stop Date: 07/01/29 Status: Ordered cyanocobalamin 1000 mcg oral tablet 1,000 mcg, 1, tablet, By Mouth, Daily, for 90 days, # 90 tablet, Refills 11, Tot. Refills 11, Hard Stop 07/17/26 13:12:00 EST, 08/02/23 13:12:00 EST, Route to Pharmacy Electronically, [facility]/pharmacy #[id number], 184, cm, 01/01/21 10:56:00 [...] # 90 tablet, 1 Refills, [facility], 184, cm, 11/15/21 9:55:00 EDT, Height Start Date: 12/06/21 Status: Ordered fluticasone 50 mcg/inh nasal spray See Instructions, USE 1 SPRAY IN EACH NOSTRIL EVERY MORNING, # 16 mL, 3 Refills, 01/29/21 9:11:00 EDT, [facility]/pharmacy #[id number], 30, USE 1 SPRAY [...] 2 Refills, Maintenance, 11/02/21 14:30:00 EDT, Ointment, [facility]/pharmacy #[id number], Partial fill upon patient request if the prescription is for a schedule II opioid drug., 1 application Top... Start Date: 11/02/21 Status: Ordered loratadine 10 mg oral tablet 1, tablet, By Mouth, Daily, PRN, # 90 tablet, Refills 1, NEEDED FOR ALLERGIES, Route to PharmacyElectronically, [facility], 184, cm, 10/18/21 13:37:00 EDT, Height Start Date: 10/22/21 Status: Ordered magnesium oxide 400 mg oral tablet 1 tablet = 400 mg, By Mouth, Daily, Rx'd by Neurology at [facility] [place]/ Dr. Murphy, 0 Refills, Maintenance, 04/15/21 23:30:00 [...] 11:13:00 EST, 10/28/21 11:13:00 EDT, REC Powder, [facility]/pharmacy #[id number], Partial fill upon patient [...] tablet, 3 Refills, Maintenance, 09/16/2211:15:00 EDT, Tablet, [facility]/pharmacy #[id number], Partial f... Start Date: 09/15/21 Status: Ordered omega-3 polyunsaturated fatty acids ethyl esters 1000 mg oral capsule 1 capsule = 1,000 mg, By Mouth, 2 times a day, # 60 capsule, 11 Refills, Maintenance, 12/27/21 11:25:00 EDT, Capsule, [facility]/pharmacy #[id number], 1 capsule By Mouth [...] 12/27/21 11:25:00 EDT, 01/01/21 11:25:00 EDT, Capsule, [facility]/pharmacy #[id number], 184, cm, 01/01/21 10:56:00 [...] Maintenance, DX: M51. 26 please send to [facility], 01/21/21 13:20:00 EDT, Supply Start Date: 01/21/21 Status: Ordered sulindac 150 mg oral tablet See Instructions, TAKE 1 TABLET BY MOUTH TWICE A DAY NEEDED FOR PAIN, # 28 tablet, 0 Refills, Maintenance, [facility], 184, cm, 02/01/21 10:51:00 EDT, Height, 123.27, kg, 06/25/19 13:22:00 EST, Dry Weight Start Date: 02/01/21 Status: Ordered Tylenol Extra Strength 500 mg oral tablet 2 tablet = 1,000 mg, By Mouth, 3 times a day, PRN as needed for pain, # 100 tablet, 5 Refills, Maintenance, 12/07/21 10:44:00 EDT, Tablet, [id number], Partial fill upon patient request if theprescription [...] provided increased discomfort related to nerves. 3Seeing [place] neurology and sleep. Given a trial of Tegretol 200 mg upto 2 tablets twice a day andadvised to continue with Lyrica 300 mg twice a day. Had some improvement of the facial pain with this regimen. 4Seeing [place] neurology and asleep. On 09/11/2018 started on [...]
--- OUTSIDE RECORDS SUMMARY | 2023-11-02 08:31 | XMS_ITS | Continuity of Care Document ---
Author Organization [facility] Address [address] [place] [address]- Care Team Providers Care Senior Account Director Name Role Phone Dayo Castano MD Primary [facility] Phys[id number] Date[facility]s): 07/27/23 - 08/30/[address] [address]- Attending Physician: Reshma Benson MD Admitting Physician: [...] influenza virus vaccine, inactivated 04/16/15 Give n [id number] 12y+ bivalent booster vax 02/21/23 Given SARS-CoV-2 (COVID-19) mRNA BNT-162b2 vac 1 06/01/21 Given SARS-CoV-2 (COVID-19) mRNA BNT-162b2 vac 11/07/20 Recorded SARS-CoV-2 (COVID-19) mRNA BNT-162b2 vac 10/17/20 Recorded zoster vaccine, inactivated 06/18/19 Recorded zoster vaccine, inactivated 06/17/19 Recorded zoster vaccine, inactivated 11/25/17 Recorded Influenza Vaccine (oldterm) 02/17/17 Recorded pneumococcal 23-valent vaccine 02/16/16 Given tetanus/diphtheria/pertussis, acel(Tdap) 11/25/14 Given 1Result Comment: DILUENT LOT#: [id number] EXP: 11/2022 MFG: FRESENSIUS Medications Albuterol (Eqv-ProAir [...] at bedtime, Rx'd by neurology ([facility]), # 30 tablet, 0 Refills, Maintenance, [...] 0 Refills, Maintenance, 08/11/23 10:01:00 EST, Capsule, [facility]/pharmacy #[id number], Partial fill upon patient request [...] Need length 99 months Please send to [facility], 01/21/21 13:20:00 EDT, Supply Start Date: 01/21/21 Status: Ordered carbidopa-levodopa 25 mg-100 mg oral tablet 1 tablet, By Mouth, 2 times a day, Rx'd by neurology at [facility], # 60 tablet, 0 Refills, [...] 04/04/23 8:45:00 EDT, Route to Pharmacy Electronically, [facility]/pharmacy #[id number], Partial fill upon patient request [...] 10/06/23 14:26:00 EDT, 08/07/23 14:26:00 EST, Cream, [facility]/pharmacy #[id number], Partial fill upon patient request [...] Gm, 5 Refills, Maintenance, 07/04/23 8:59:00 EST, [facility]/pharmacy #[id number], 30, APPLY TOPICALLY TO AFFECTED [...] at bedtime, Rx'd by neurology at [facility], 0 Refills, Maintenance, 10/04/22 8:24:00 EDT, Capsule, Partial fill upon patient request if the prescription is for a schedule II opioid drug. Start Date: 10/04/22 Status: Ordered loratadine 10 mg oral tablet 1, tablet, By Mouth, Daily, PRN, # 90 tablet, Refills 3, Tot. Refills 3, NEEDED FOR ALLERGIES, 04/04/23 8:42:00 EDT, Route to Pharmacy Electronically, [facility]/pharmacy #[id number], 183, cm, 04/04/23 8:24:00EDT, Height, 123.2, kg, 02/07/22 12:47:00 EDT, Dry... Start Date: 04/04/23 Status: Ordered Metamucil 3.4 gm/5.2 gm oral powder for reconstitution = 3.4 Gm, By Mouth, 3 times a day, PRN as needed for constipation, # 425 Gm, 11 Refills, Maintenance, 08/07/23 14:34:00 EST, REC Powder, [facility]/pharmacy #[id number], Partial fill upon patient request [...] # 40 gum, 0 Refills, [facility], 184, cm, 12/27/21 11:50:00 EDT, Height Start [...] Stop 03/29/24 8:46:00 EDT, 04/04/23 8:46:00 EDT, [facility]/pharmacy #[id number], 1 capsule By Mouth 2 [...] Gm, 1 Refills, Maintenance, 04/04/23 8:46:00 EDT, [facility]/pharmacy #[id number], 14,DISSOLVE 17 GRAMS IN WATER & DRINK ONCE A DAY UNTIL BM,... Start Date: 04/04/23 Status: Ordered pregabalin 300 mg oral capsule 1 capsule = 300 mg, By Mouth, 2 times a day, Rx'd by neurology at [facility], # 60 capsule, 0 Refills, Maintenance, 10/04/22 8:24:00 EDT, Capsule, Partial fill upon patient request if the prescription is for a schedule II opioid drug. Start Date: 10/04/22 Status: Ordered primidone 50 mg oral tablet 100 mg, 2, tablet, By Mouth, 2 times a day, rx'd by neurology at [facility], # 120 tablet, Refills 0, Maintenance, [...] a day, Rx'd by neurology at [facility], # 270 tablet, 0 Refills, [...] M51. 26 please send to [facility], 08/08/22 15:41:00 EST, Supply Start Date: 08/08/22 Status: Ordered Symbicort 160mcg/4.5mcg Inhaler 2, puffs, Inhalation, 2 times a day, # 6 Gm, Refills 11, Tot. Refills 11, Maintenance, 08/07/23 14:39:00 EST, Aerosol, Route to Pharmacy Electronically, [id number], [facility]/pharmacy #[id number], 183, cm, 08/07/23 14:26:00 EST, [...] 11 Refills, Maintenance, 04/04/23 8:43:00 EDT, Tablet, [facility]/pharmacy #[id number], Partial fill upon patient request if theprescription is for a schedule II opioid drug., 183... Start Date: 04/04/23 Status: Ordered valsartan 320 mg oral tablet 1 tablet, By Mouth, Daily, blood pressure, # 90 tablet, 3 Refills, Maintenance, 04/04/23 8:46:00 EDT, [facility]/pharmacy #[id number], 183, cm, 04/04/23 8:24:00 EDT, Height, 123.2, kg, 02/07/22 12:47:00 EDT, Dry Weight Start Date: 04/04/23 Status: Ordered Vitamin B-12 1000 mcg oral tablet 1, tablet, By Mouth, Daily, # 90 tablet, Refills 1, Maintenance, 08/28/23 13:12:00 EDT, Route to Pharmacy Electronically, [facility], 183, cm, 08/22/23 13:24:00 EST, Height, 123.2, kg, 02/07/22 12:47:00 EDT, Dry Weight Start Date: 08/28/23 Status: Ordered Xopenex HFA 45 mcg/inh inhalation aerosol 2 puffs, Inhalation, Every 4 hours, PRN Wheezing/Shortness of Breath, replaces Ventolin due to reaction, # 1 each, 1 Refills, Maintenance, 02/15/23 11:23:00 EDT, [facility]erosol, [id number], Partial fill upon patient request if the [...] provided increased discomfort related to nerves. 3Seeing [place] neurology and sleep. Given a trial of [...] Care Team Personnel Name: Olimpia Parker Position: [facility] JUAN Office Staff Member Role: Lifetime Consulting Physician Name: Dayo Castano MD Position: [facility] Physician - Primary Care Member Role: PCP Address: Address: [address] [place] [address]- Care Team Related Persons Name: JOSIAS BRADFORDE Address: home [address] [place] [address] Name: LOLA BRADFORD Address: home [address] [place] [address] Name: GOLDIE LERMA Address: [place] [address] Name: OLIMPIA LERMA Address: [place] [address] Name: KADE LERMA Address: home [address] [place] [id number] Name: KADE LERMA Address: home [address] [place] [id number]
--- OUTSIDE RECORDS SUMMARY | 2023-11-02 08:31 | XMS_ITS | Continuity of Care Document ---
Author Organization [facility] Address [address] [place] [address]- Care Team Providers Care Eyeglass Inspector Name Role Phone Contractor Krystal FERNANDEZ Primary Care Physician [phone] Encounter [facility] Date(s): 02/10/21 - 03/12/21 [facility] [address] [place], [place] [address] Allergies, Adverse Reactions, Alerts Substance [...] Refills, Maintenance, 03/03/21 17:24:00 EDT, Tablet, [facility]/pharmacy #[id number], Partial fill upo... Start Date: 03/03/21 Status: Ordered aspirin 81 mg oral delayed release tablet 81 mg, 1, tablet, By Mouth, Daily, # 90 tablet, Refills 0, Tot. Refills 0, Maintenance, 01/01/21 11:26:00 EDT, [id number] Partial fill upon patient request if the prescription is for a schedule II opioid drug... Start Date: 01/01/21 Status: Ordered aspirin 81 mg oral tablet 1 tablet = 81 mg, By Mouth, Daily, # 90 tablet, 3 Refills, Maintenance, 01/15/20 9:51:00 EDT, Tablet, [facility]/pharmacy #[id number], 184, cm, 01/15/20 9:11:00 EDT, Height, [...] Need length 99 months Please send to [place] [facility], 01/21/21 13:20:00 EDT, Supply Start [...] EST, [id number] 184, cm, 02/28/20 15:58:00 EDT, Height, 123.27,... Start Date: 08/17/20 Stop Date: 08/02/23 Status: Ordered cyanocobalamin 1000 mcg oral tablet 1,000 mcg, 1, tablet, By Mouth, Daily, # 90 tablet, Refills 11, Tot. Refills 11, Maintenance, 08/02/23 13:12:00 EST, [id number], 184, cm, 01/01/21 10:56:00 EDT, [...] Refills, Maintenance, 01/11/21 15:23:00 EDT, Tablet, [facility]/pharmacy #[id number], Partial fill upon patient request if the prescription is for a schedule II opioid drug., 184, cm,... Start Date: 01/11/21 Status: Ordered fluticasone 50 mcg/inh nasal spray See Instructions, USE 1 SPRAY IN EACH NOSTRIL EVERY MORNING, # 16 mL, 3 Refills, 01/29/21 9:11:00 EDT, [facility]/pharmacy #[id number], 30, USE 1 SPRAY IN EACH [...] Refills, Maintenance, 02/10/21 13:09:00 EDT, Ointment, [facility]/pharmacy #[id number], Partial fill upon patient [...] Refills, Maintenance, 03/03/21 17:29:00 EDT, Tablet, [facility]/pharmacy #[id number], Partial fill upon p... Start Date: [...] Maintenance, DX: M51. 26 please send to [facility], 01/21/21 13:20:00 EDT, Supply Start Date: 01/21/21 Status: Ordered sulindac 150 mg oral tablet See Instructions, TAKE 1 TABLET BY MOUTH TWICE A DAY NEEDED FOR PAIN, # 28 tablet, 0 Refills, Maintenance, [facility], 184, cm, 02/01/21 10:51:00 EDT, Height, 123.27, [...] provided increased discomfort related to nerves. 3Seeing [place] neurology and sleep. Given a trial of Tegretol 200 mg upto 2 tablets twice a day andadvised to continue with Lyrica 300 mg twice a day. Had some improvement of the facial pain with this regimen. 4Seeing [place] neurology and asleep. On 09/11/2018 started on [...]
--- OUTSIDE RECORDS SUMMARY | 2023-11-02 08:31 | XMS_ITS | Continuity of Care Document ---
Author Organization [facility] Address [address] [place] [address]- Care Team Providers Care Operations Coordinator Name Role Phone Contractor Krystal FERNANDEZ Primary Care Physician [phone] [facility] Date(s): 01/04/21 - 02/03/[address] [address] Allergies, Adverse Reactions, Alerts Substance [...] 15:08:00 EDT, Route to Pharmacy Electronically, [facility]/pharmacy #[id number], 184, cm, 10/30/20 14:15:00 EDT, Height, 123.27, kg, 06/25/19 13:22:00 EST, Dry Weight Start Date: 10/30/20 Status: Ordered aspirin 81 mg oral delayed release tablet 81 mg, 1, tablet, By Mouth, Daily, # 90 tablet, Refills 0, Tot. Refills 0, Maintenance, 01/01/21 11:26:00 EDT, Route to Pharmacy Electronically, [facility]/pharmacy #[id number], Partial fill upon patient request if the prescription is for a schedule II opioid drug... Start Date: 01/01/21 Status: Ordered aspirin 81 mg oral tablet 1 tablet = 81 mg, By Mouth, Daily, # 90 tablet, 3 Refills, Maintenance, 01/15/20 9:51:00 EDT, Tablet, [facility]/pharmacy #[id number], 184, cm, 01/15/20 9:11:00 EDT, Height, [...] Need length 99 months Please send to [facility], 01/21/21 13:20:00 EDT, Supply Start Date: 01/21/21 Status: Ordered Claritin 10 mg oral tablet 10 mg, 1, tablet, By Mouth, Daily, # 30 tablet, Refills 3, Tot. Refills 3, Maintenance, 01/29/21 9:13:00 EDT, Route to Pharmacy Electronically, [facility]/pharmacy #[id number], 184, cm, 01/29/21 9:06:00 EDT, Height, [...] EST, Route to Pharmacy Electronically, [facility]/pharmacy #[id number], 184, cm, 02/28/20 15:58:00 EDT, Height, 123.27,... Start Date: 08/17/20 Stop Date: 08/02/23 Status: Ordered cyanocobalamin 1000 mcg oral tablet 1,000 mcg, 1, tablet, By Mouth, Daily, # 90 tablet, Refills 11, Tot. Refills 11, Maintenance, 08/02/23 13:12:00 EST, Route to Pharmacy Electronically, [facility]/pharmacy #[id number], 184, cm, 01/01/21 10:56:00 EDT, Height, [...] Refills, Maintenance, 01/01/21 11:24:00 EDT, Tablet, [facility]/pharmacy #[id number], 184, cm, 01/01/21 10:56:00 EDT, Height, 123.27, kg, 06/25/19 13:22:00 EST, Dry Weight Start Date: 01/01/21 Status: Ordered docusate sodium 100 mg oral tablet 1 tablet = 100 mg, By Mouth, 2 times a day, PRN for constipation, # 60 tablet, 5 Refills, Maintenance, 01/11/21 15:23:00 EDT, Tablet, [facility]/pharmacy #[id number], Partial fill upon patient request if the prescription is for a schedule II opioid drug., 184, cm,... Start Date: 01/11/21 Status: Ordered fluticasone 50 mcg/inh nasal spray See Instructions, USE 1 SPRAY IN EACH NOSTRIL EVERY MORNING, # 16 mL, 3 Refills, 01/29/21 9:11:00 EDT, [facility]/pharmacy #[id number], 30, USE 1 SPRAY IN EACH [...] 2 Refills, Maintenance, 02/01/21 11:12:00 EDT, Ointment, [facility]/pharmacy #[id number], Partial fill upon patient request if [...] Refills, Maintenance, 01/01/21 11:25:00 EDT, Capsule, [facility]/pharmacy #[id number], 1 capsule By Mouth 2 times a day,x30 days, 184, cm, 01/01/21 10:56:00 EDT, Height, 123.27, kg, 06/25/19 13:22:00... Start Date: 01/01/21 Stop Date: 12/27/21 Status: Ordered omeprazole 20 mg oral enteric coated capsule 1 capsule = 20 mg, By Mouth, Daily, # 30 capsule, 2 Refills, Maintenance, 02/06/20 16:40:00 EDT, ECCapsule, [facility]/pharmacy #[id number], 184, cm, 01/29/20 14:16:00 EDT, Height, [...] 28 tablet, 0 Refills, Maintenance, [facility], 184, cm, 02/01/21 10:51:00 EDT, Height, 123.27, kg, 06/25/19 13:22:00 EST, Dry Weight Start Date: 02/01/21 Status: Ordered traMADol 50 mg oral tablet 1 tablet = 50 mg, By Mouth, Every 6 hours, PRN as needed for pain, for 3 days, # 12 tablet, 0 Refills, Acute 02/04/21 11:12:00 EDT, 02/01/21 11:12:00 EDT, Tablet, [id number], Partial fill upon patient request if the [...] provided increased discomfort related to nerves. 3Seeing [place] neurology and sleep. Given a trial of Tegretol 200 mg upto 2 tablets twice a day andadvised to continue with Lyrica 300 mg twice a day. Had some improvement of the facial pain with this regimen. 4Seeing [place] neurology and asleep. On 09/11/2018 started on [...]
--- OUTSIDE RECORDS SUMMARY | 2023-11-02 08:31 | XMS_ITS | Continuity of Care Document ---
Author Organization [facility] Address [address] [place] [address]- Care Team Providers Care Insurance Agency Manager Name Role Phone Dayo Castano MD Primary Care Physician Encounter [facility] [id number] Date(s): 04/04/23 - 05/04/[address] [address]- Attending Physician: AdmCristian freeman Admitting Physician: AdmtrCristian Referring Physician: Admtr, Ar8 Allergies, Adverse Reactions, Alerts Substance Reaction Severity Status penicillin Unknown Active gabapentin Active Lantus Active Ventolin HFA Active ZyrTEC Active SEROquel Active hydrOXYzine hydrochloride Ac tive Flovent HFA Active traZODone Active Immunizations Given [...] influenza virus vaccine, inactivated 04/16/15 Give n [id number] 12y+ bivalent booster vax 02/21/23 Given SARS-CoV-2 (COVID-19) mRNA BNT-162b2 vac 1 06/01/21 Given SARS-CoV-2 (COVID-19) mRNA BNT-162b2 vac 11/07/20 Recorded SARS-CoV-2 (COVID-19) mRNA BNT-162b2 vac 10/17/20 Recorded zoster vaccine, inactivated 06/18/19 Recorded zoster vaccine, inactivated 06/17/19 Recorded zoster vaccine, inactivated 11/25/17 Recorded Influenza Vaccine (oldterm) 02/17/17 Recorded pneumococcal 23-valent vaccine 02/16/16 Given tetanus/diphtheria/pertussis, acel(Tdap) 11/25/14 Given 1Result Comment: DILUENT LOT#: [id number] EXP: 11/2022 MFG: FRESENSIUS Medications Albuterol (Eqv-ProAir HFA) 90 mcg/inh inhalation aerosol 2 puffs, Inhalation, Every 6 hours, please give pt whatver is covered by his insrance use with spacer chamber, # 18 Gm, 11 Refills, Maintenance, 04/04/23 8:43:00 EDT, [facility]/pharmacy #[id number], Partial fillupon patient request [...] 3 Refills, Maintenance, 04/04/23 8:44:00 EDT, Tablet, [facility]/pharmacy #[id number], Partial fill upon patient request if the [...] Need length 99 months Please send to [facility], 01/21/21 13:20:00 [...] 04/04/23 8:45:00 EDT, Route to Pharmacy Electronically, [facility]/pharmacy #[id number], Partial fill upon patient request if the prescription is for a sc... Start Date: 04/04/23 Status: Ordered clonazePAM 1 mg oral tablet 1 tablet = 1 mg, By Mouth, 2 times a day, Rx'd by [facility], 0 Refills, Maintenance, 10/04/22 8:25:00 EDT, Tablet, [...] 04/04/23 8:46:00 EDT, Route to Pharmacy Electronically, [facility]/pharmacy #[id number], 183, cm, 04/04/23 8:24:00 [...] Gm, 5 Refills, Maintenance, 01/26/23 9:21:00 EDT, [facility]/pharmacy #[id number], 30, APPLY TOPICALLY TO [...] 04/04/23 8:42:00 EDT, Route to Pharmacy Electronically, [facility]/pharmacy #[id number], 183, cm, 04/04/23 8:24:00EDT, [...] SMOKING CESSATION, # 40 gum, 0 Refills, [facility] STORE [facility]113, 184, cm, 12/27/21 11:50:00 EDT, Height Start [...] Gm, 1 Refills, Maintenance, 04/04/23 8:46:00 EDT, [facility]/pharmacy #[id number], 14,DISSOLVE 17 GRAMS IN [...] please send to [facility], 08/08/22 15:41:00 EST, Supply Start Date: 08/08/22 Status: Ordered Symbicort 160mcg/4.5mcg Inhaler 2, puffs, Inhalation, 2 times a day, # 6 Gm, Refills 11, Tot. Refills 11, Maintenance, 04/04/23 8:44:00 EDT, Aerosol, Route to Pharmacy Electronically, [id number], [facility]/pharmacy #[id number], 183, cm, 04/04/23 8:24:00 [...] 11 Refills, Maintenance, 04/04/23 8:43:00 EDT, Tablet, [facility]/pharmacy #[id number], Partial fill upon patient request if theprescription is for a schedule II opioid drug., 183... Start Date: 04/04/23 Status: Ordered valsartan 320 mg oral tablet 1 tablet, By Mouth, Daily, blood pressure, # 90 tablet, 3 Refills, Maintenance, 04/04/23 8:46:00 EDT, [facility]/pharmacy #[id number], 183, cm, 04/04/23 8:24:00 EDT, Height, 123.2, kg, 02/07/22 12:47:00 EDT, Dry Weight Start Date: 04/04/23 Status: Ordered Xopenex HFA 45 mcg/inh inhalation aerosol 2 puffs, Inhalation, Every 4 hours, PRN Wheezing/Shortness of Breath, replaces Ventolin due to reaction, # 1 each, 1 Refills, Maintenance, 02/15/23 11:23:00 EDT, Aerosol, [facility]/pharmacy #[id number], Partial [...] provided increased discomfort related to nerves. 3Seeing [place] neurology and sleep. Given a trial of [...] last 30 days entered on: 12/27/21 Sex Laboratory * Event Display: Laboratory Result Scanned Authored Date: * Event Display: Laboratory Result Scanned Authored Date: Patient Care team information Care Team Personnel Name: Olimpia Parker Position: [facility] JUAN Office Staff Member Role: Lifetime Consulting Physician Name: Dayo Castano MD Position: [facility] Physician - Primary Care Member Role: PCP Address: Address: [address] [place] [address] Care Team Related Persons Name: JARROD BRADFORD Address: home [address] [place] [address] Name: LOLA BRADFORD Address: home [address] [place] [address] Name: GOLDIE LERMA Address: [place] [address] Name: OLIMPIA LERMA Address: [place] [address] Name: KADE LERMA Address: home [address] [place] [id number] Name: KADE LERMA Address: home [address] [place] [id number]
--- OUTSIDE RECORDS SUMMARY | 2023-11-02 08:32 | XMS_ITS | Continuity of Care Document ---
Author Organization [facility] Address [address] [place] [address]- Care Team Providers Care Mud Temperer Name Role Phone Dayo Castano MD Primary Care Physician Encounter [facility] Date(s): 02/13/23 - 03/15/[address] [address]- Allergies, Adverse Reactions, Alerts Substance Reaction Severity Status penicillin Unknown Active gabapentin Active hydrOXYzine hydrochloride Ac tive Lantus Active Ventolin HFA Active Flovent HFA Active traZODone Active ZyrTEC Active SEROquel Active Immunizations Given and Recorded Vaccine Date Status Refusal Reason [id number] 12y+ bivalent booster vax 02/21/23 Given influenza [...] acel(Tdap) 11/25/14 Given 1Result Comment: DILUENT LOT#: [id number] EXP: 11/2022 MFG: FRESENSIUS Medications Albuterol (Eqv-ProAir HFA) 90 mcg/inh inhalation aerosol 2 puffs, Inhalation, Every 6 hours, please give pt whatver is covered by his insrance use with spacer chamber, # 18 Gm, 5 Refills, Maintenance, 01/26/23 9:27:00 EDT, [facility]/pharmacy #[id number], Partial fill upon patient request if the prescription is for a... Start Date: 01/26/23 Status: Ordered amitriptyline 100 mg oral tablet 1 tablet = 100 mg, By Mouth, Daily at bedtime, Rx'd by neurology ([facility]), # 30 tablet, 0 Refills, Maintenance, [...] tablet, 1 Refills, Maintenance, 11/28/22 12:36:00 EDT, [facility]/pharmacy#[id number], 183, cm, 11/10/22 8:32:00 EDT, Height, 123.2, [...] Need length 99 months Please send to [place] [employer] [facility], 01/21/21 13:20:00 EDT, Supply Start Date: 01/21/21 Status: Ordered carbidopa-levodopa 25 mg-100 mg oral tablet 1 tablet, By Mouth, 2 times a day, Rx'd by neurology at [facility], # 60 tablet, 0 Refills, Maintenance, 10/04/22 8:23:00 EDT, Tablet, Partial fill upon patient request if the prescription is for a schedule II opioid drug. Start Date: 10/04/22 Status: Ordered chlorthalidone 25 mg oral tablet 25 mg, 1, tablet, By Mouth, Daily, # 30 tablet, Refills 5, Tot. Refills 5, Maintenance, 11/08/22 8:09:00 EDT, Route to Pharmacy Electronically, [facility]/pharmacy #[id number], Partial fill upon patient request if the [...] 03/04/23 11:42:00 EDT, Route to Pharmacy Electronically, [facility]/pharmacy #[id number], 183, cm, 02/21/23 10:22:00 EDT, Height, [...] Refills, Maintenance, 01/26/23 9:21:00 EDT, [facility]/pharmacy #[id number], 30, APPLY TOPICALLY TO AFFECTED ARE TWICEA DAY NEEDED FOR PAIN, 183, cm, 01/26/23 9:04:00... Start Date: 01/26/23 Status: Ordered doxycycline hyclate 100 mg oral tablet 1 tablet = 100 mg, By Mouth, 2 times a day, # 14 tablet, 0 Refills, Maintenance, 12/03/22 9:09:00 EDT, Tablet, [facility]/pharmacy #[id number], Partial fill upon patient request if [...] at bedtime, Rx'd by neurology at [facility], 0 Refills, Maintenance, 10/04/22 8:24:00 EDT, Capsule, Partial fill upon patient request if the prescription is for a schedule II opioid drug. Start Date: 10/04/22 Status: Ordered levocetirizine 5 mg oral tablet 1 tablet = 5 mg, By Mouth, Daily in AM, # 30 tablet, 5 Refills, Maintenance, 11/17/22 10:19:00 EDT,Tablet, [facility]/pharmacy #[id number], Label in guatemalan, cetrizine not effective, 1 tablet By Mouth Daily in AM, 183, cm, 11/10/22 8:32:00 EDT, Height, 123.2, kg,... Start Date: 11/17/22 Status: Ordered loratadine 10 mg oral tablet 1, tablet, By Mouth, Daily, PRN, # 90 tablet, Refills 1, NEEDED FOR ALLERGIES, Route to PharmacyElectronically, [facility], 184, cm, 10/18/21 13:37:00 EDT, Height Start Date: 10/22/21 Status: Ordered Metamucil 3.4 gm/5.2 gm oral powder for reconstitution = 3.4 Gm, By Mouth, 3 times a day, PRN as needed for constipation, # 425 Gm, 11 Refills, Maintenance, 09/12/22 20:51:00 EDT, REC Powder, [facility]/pharmacy #[id number], Partial fill upon patient request if [...] SMOKING CESSATION, # 40 gum, 0 Refills, [facility], 184, cm, 12/27/21 11:50:00 EDT, Height Start [...] # 180 capsule, 3 Refills, [facility], 90, TAKE 1 CAPSULE BY MOUTH TWICE A DAY, 183, cm, 02/08/22 6:42:00 EDT, Height, 123.2, kg, 02/07/22 12:47:00 EDT, Dry Weight Start Date: 02/09/22 Status: Ordered omeprazole 20 mg oral enteric coated capsule 1 capsule, By Mouth, Daily, # 90 capsule, 0 Refills, Maintenance, 02/24/23 12:51:00 EDT, [facility]/pharmacy #[id number], 183, cm, 02/21/23 10:22:00 EDT, Height, [...] Gm, 1 Refills, Maintenance, 08/31/22 9:06:00 EDT, [facility]/pharmacy #[id number], 14,DISSOLVE 17 GRAMS IN WATER & DRINK ONCE A DAY UNTIL BM,... Start Date: 08/31/22 Status: Ordered pregabalin 300 mg oral capsule 1 capsule = 300 mg, By Mouth, 2 times a day, Rx'd by neurology at [facility], # 60 capsule, 0 Refills, Maintenance, 10/04/22 8:24:00 EDT, Capsule, Partial fill upon patient request if the prescription is for a schedule II opioid drug. Start Date: 10/04/22 Status: Ordered primidone 50 mg oral tablet 100 mg, 2, tablet, By Mouth, 2 times a day, rx'd by neurology at [facility], # 120 tablet, Refills 0, Maintenance, [...] a day, Rx'd by neurology at [facility], # 270 tablet, 0 Refills, Maintenance, 10/04/22 [...] 21:20:00 EDT, Aerosol, Route to Pharmacy Electronically, [id number], [facility]/pharmacy #[id number], 183, cm, 12/08/22 8:26:00 EDT, Height, [...] Refills, Maintenance, 03/15/22 14:29:00 EDT, [facility], 183, cm, 02/08/22 6:42:00 EDT, Height, 123.2, kg, 02/07/22 12:47:00 EDT, Dry Weight Start Date: 03/15/22 Status: Ordered Xopenex HFA 45 mcg/inh inhalation aerosol 2 puffs, Inhalation, Every 4 hours, PRN Wheezing/Shortness of Breath, replaces Ventolin due to reaction, # 1 each, 1 Refills, Maintenance, 02/15/23 11:23:00 EDT, Aerosol, [id number], Partial fill upon patient request if the [...] provided increased discomfort related to nerves. 3Seeing [place] neurology and sleep. Given a trial of [...] Care Team Personnel Name: Casandra Parker Position: [facility] JUAN Office Staff Member Role: Lifetime Consulting Physician Name: Dayo Castano MD Position: [facility] Physician - Primary Care Member Role: PCP Address: Address: [address] [place] [address]- [place] Care Team Related Persons Name: JARROD BRADFORD Address: home [address] [place] [address] Name: MURRAYYAHAIRAArmandoYARASY Address: home [address] [place] [address] Name: GOLDIE LERMA Address: [place] [address] Name: CASANDRA LERMA Address: [place] [address] Name: KADE LERMA Address: home [address] [place] [id number] Name: KADE LERMA Address: home [address] [place] [address]
--- OUTSIDE RECORDS SUMMARY | 2023-11-02 08:32 | XMS_ITS | Continuity of Care Document ---
Author Organization [facility] Address [address] [place] [address]- Care Team Providers Care Tafe Lecturer Name Role Phone Terence PRATHER, Azra [id number] Date[facility]29[facility]20 - 07/04/[address] [address] Attending Physician: Tyson Vogt MD Referring Physician: Tyson Vogt MD Allergies, Adverse Reactions, Alerts Substance Reaction [...] 01/15/20 9:51:00 EDT, Route to Pharmacy Electronically, [facility]/pharmacy #[id number], 184, cm, 01/15/20 9:11:00 EDT, Height, 123.27, kg, 06/25/19 13:22:00 EST, Dry Weight Start Date: 01/15/20 Stop Date: 03/15/20 Status: Ordered aspirin 81 mg oral tablet 1 tablet = 81 mg, By Mouth, Daily, # 90 tablet, 3 Refills, Maintenance, 01/15/20 9:51:00 EDT, Tablet, [facility]/pharmacy #[id number], 184, cm, 01/15/20 9:11:00 [...] 02/07/20 9:49:00 EDT, Route to Pharmacy Electronically, [facility]/pharmacy #[id number], 184, cm, 01/29/20 14:16:00 [...] 08/17/20 13:12:00 EST, Route to Pharmacy Electronically, [facility]/pharmacy #[id number], 184, cm, 02/28/20 15:58:00 [...] 3 Refills, Maintenance, 01/15/20 9:51:00 EDT, Tablet, [facility]/pharmacy #[id number], 184, cm, 01/15/20 9:11:00 EDT, Height, 123.27, kg, 06/25/19 13:22:00 EST, Dry Weight Start Date: 01/15/20 Stop Date: 03/15/20 Status: Ordered fluticasone 50 mcg/inh nasal spray See Instructions, USE 1 SPRAY IN EACH NOSTRIL EVERY MORNING, # 16 mL, 0 Refills, Maintenance, [facility] STORE [facility]841, 30, USE 1 SPRAY IN EACH NOSTRIL [...] provided increased discomfort related to nerves. 3Seeing [place] neurology and sleep. Given a trial of Tegretol 200 mg upto 2 tablets twice a day andadvised to continue with Lyrica 300 mg twice a day. Had some improvement of the facial pain with this regimen. 4Seeing [place] neurology and asleep. On 09/11/2018 started on [...]
--- OUTSIDE RECORDS SUMMARY | 2023-11-02 08:32 | XMS_ITS | Continuity of Care Document ---
Author Organization [facility] Address [address] [place] [address]- Care Team Providers Care Manager Editorial Name Role Phone Contractor Krystal FERNANDEZ Primary Care Physician Encounter [facility] Date(s): 11/26/20 - 12/26/[address] [address]- Allergies, Adverse Reactions, Alerts Substance Reaction Severity [...] 8:00:00 EDT, 11/27/20 10:53:00 EDT, Tablet, [facility]/pharmacy #[id number], Partial fill up... Start Date: 11/27/20 Stop Date: 01/27/21 Status: Ordered amLODIPine 10 mg oral tablet 10 mg, 1, tablet, By Mouth, Daily, # 90 tablet, Refills 3, Tot. Refills 3, Maintenance, 10/30/20 15:08:00 EDT, Route to Pharmacy Electronically, [id number], 184, cm, 10/30/20 14:15:00 EDT, Height, [...] 9:49:00 EDT, [facility], [facility] # 16 mL, 0 Refills, Maintenance, [facility] STORE [address]9464, 30, USE 1 SPRAY IN EACH NOSTRIL EVERY MORNING, 184, cm, 01/29/20 14:16:00 EDT, Height, 123.27, kg, 06/25/19 13:22:00 EST, Dry Weight Start Date: 02/06/20 Status: Ordered Freestyle Lite Lancets See Instructions, # 50 each, Refills 5, Tot. Refills 5, Maintenance, Use to test BS daily for DM, E11.65, 02/03/19 19:22:15 EST, Compound Start Date: 07/22/18 Status: [...] 0 Refills, Maintenance, 11/11/20 9:35:00 EDT, Tablet, [facility]/pharmacy #[id number], Partial fill upon patient request if the prescription is for a schedule II opioid drug., 184, cm, 11/11... Start Date: 11/11/20 Stop Date: 11/25/20 Status: Ordered sulindac 150 mg oral tablet See Instructions, TAKE 1 TABLET BY MOUTH TWICE DAILY NEEDED FOR PAIN, # 28 tablet, 0 Refills, Maintenance, [facility], 184, cm, 12/09/20 11:19:00 EDT, Height, 123.27, [...] provided increased discomfort related to nerves. 3Seeing [place] neurology and sleep. Given a trial of Tegretol 200 mg upto 2 tablets twice a day andadvised to continue with Lyrica 300 mg twice a day. Had some improvement of the facial pain with this regimen. 4Seeing [place] neurology and asleep. On 09/11/2018 started on [...]
--- OUTSIDE RECORDS SUMMARY | 2023-11-02 08:32 | XMS_ITS | Continuity of Care Document ---
Author Organization [facility] Address [address] [place] [address]- Care Team Providers Care Reel Operator Name Role Phone Eyad PRATHER, Dayo Primary Care Physician Encounter [facility] Date(s): 04/14/23 - 05/14/[address] [address]- Allergies, Adverse Reactions, Alerts Substance Reaction Severity [...] influenza virus vaccine, inactivated 04/16/15 Give n [id number] 12y+ bivalent booster vax 02/21/23 Given SARS-CoV-2 (COVID-19) mRNA BNT-162b2 vac 1 06/01/21 Given SARS-CoV-2 (COVID-19) mRNA BNT-162b2 vac 11/07/20 Recorded SARS-CoV-2 (COVID-19) mRNA BNT-162b2 vac 10/17/20 Recorded zoster vaccine, inactivated 06/18/19 Recorded zoster vaccine, inactivated 06/17/19 Recorded zoster vaccine, inactivated 11/25/17 Recorded Influenza Vaccine (oldterm) 02/17/17 Recorded pneumococcal 23-valent vaccine 02/16/16 Given tetanus/diphtheria/pertussis, acel(Tdap) 11/25/14 Given 1Result Comment: DILUENT LOT#: [id number] EXP: 11/2022 MFG: FRESENSIUS Medications Albuterol (Eqv-ProAir [...] Mouth, Daily at bedtime, Rx'd by neurology ([facility]), # 30 tablet, 0 Refills, [...] Need length 99 months Please send to [place] [facility], 01/21/21 13:20:00 EDT, Supply Start Date: 01/21/21 [...] 04/04/23 8:46:00 EDT, Route to Pharmacy Electronically, [facility]/pharmacy #[id number], 183, cm, 04/04/23 8:24:00 [...] Gm, 5 Refills, Maintenance, 01/26/23 9:21:00 EDT, [facility]/pharmacy #[id number], 30, APPLY TOPICALLY TO AFFECTED ARE TWICEA DAY NEEDED FOR PAIN, 183, cm, 01/26/23 9:04:00... Start Date: 01/26/23 Status: Ordered diclofenac sodium 75 mg oral delayed release tablet 1 tablet = 75 mg, By Mouth, 2 times a day, PRN Pain , Severe, STOP diclofenac gel, # 30 tablet, 0 Refills, Maintenance, 05/05/23 9:14:00 EST, EC Tablet, [facility]/pharmacy #[id number], Partial fill upon patient request if the prescription is for a schedule II opi... Start Date: 05/05/23 Status: Ordered Epsom Salt Epsom Salt, See [...] 0 Refills, Maintenance, 05/05/23 9:15:00 EST, Tablet, [id number], Partial fill upon [...] Refills, Maintenance, 09/12/22 20:51:00 EDT, REC Powder, [facility]/pharmacy #[id number], Partial [...] SMOKING CESSATION, # 40 gum, 0 Refills, [facility] STORE 64874, 184, cm, 12/27/21 11:50:00 EDT, Height Start [...] Stop 03/29/24 8:46:00 EDT, 04/04/23 8:46:00 EDT, [facility]/pharmacy #[id number], 1 capsule By Mouth 2 times a day,x90 days, 183, cm, 04/04/23 8:24:00 EDT, Height, 123.2, kg, 01/18... Start Date: 04/04/23 Stop Date: 03/29/24 Status: Ordered omeprazole 20 mg oral enteric coated capsule 1 capsule, By Mouth, Daily, # 90 capsule, 3 Refills, Maintenance, 04/04/23 8:46:00 EDT, [facility]/pharmacy #[id number], 183, cm, 04/04/23 8:24:00 [...] times a day, rx'd by neurology at [facility], # 120 tablet, Refills 0, [...] times a day, Rx'd by neurology at [facility], # 270 tablet, 0 [...] Maintenance, DX: M51. 26 please send to [facility] [place], 08/08/22 15:41:00 EST, Supply Start Date: 08/08/22 Status: Ordered Symbicort 160mcg/4.5mcg Inhaler 2, puffs, Inhalation, 2 times a day, # 6 Gm, Refills 11, Tot. Refills 11, Maintenance, 04/04/23 8:44:00 EDT, Aerosol, Route to Pharmacy Electronically, [id number], [facility]/pharmacy #[id number], 183, cm, 04/04/23 8:24:00 [...] provided increased discomfort related to nerves. 3Seeing [place] neurology and sleep. Given a trial of [...] Primary Care Member Role: PCP Address: Address: [address] [place] [address]- Care Team Related Persons Name: JARROD BRADFORD Address: home [address] [place] [address] Name: LOLA BRADFORD Address: home [address] [place] [address] Name: GOLDIE LERMA Address: [place] [address] Name: OLIMPIA LERMA Address: [place] [address] Name: KADE LERMA Address: home [address] [facility] [address] [place] [address] Name: KADE LERMA Address: home [address] [facility] [address] [place] [address]
--- OUTSIDE RECORDS SUMMARY | 2023-11-02 08:32 | XMS_ITS | Continuity of Care Document ---
Author Organization [facility] Address [address] [place] [address]- Care Team Providers Care Pole Shaver Helper Name Role Phone Ivone Oneil MD Primary Care Physician [phone] Encounter [facility] Date(s): 09/09/22 - 10/09/[address] [address]- Allergies, Adverse Reactions, Alerts Substance Reaction Severity [...] acel(Tdap) 11/25/14 Given 1Result Comment: DILUENT LOT#: [id number] EXP: 11/2022 MFG: FRESENSIUS Medications Aripiprazole 2 [...] 1 Refills, Maintenance, 05/13/22 14:40:00 EST, Tablet, [facility]/pharmacy #[id number], Partial fill upon patient request if the [...] Need length 99 months Please send to [facility], 01/21/21 13:20:00 EDT, Supply Start Date: [...] 08/23/22 8:42:00 EST, Route to Pharmacy Electronically, [facility]/pharmacy #[id number], Partial [...] 07/01/29 13:12:00 EST, Route to Pharmacy Electronically, [facility]/pharmacy #[id number], 183, cm, 08/22/22 8:28:00 EST,Height, [...] Gm, 2 Refills, Maintenance, 07/28/22 8:54:00 EST, [facility] STORE [facility], 30, APPLY TOPICALLY TO AFFECTED ARE TWICE A DAY NEEDED FOR PAIN, 183, cm, 07/07/22 10:54:00 E... Start Date: 07/28/22 Status: Ordered empagliflozin 10 mg oral tablet 1 tablet = 10 mg, By Mouth, Daily in AM, # 30 tablet, 2 Refills, Maintenance, 08/23/22 8:44:00 EST,Tablet, [facility]/pharmacy #[id number], Partial fill upon patient request if the [...] 2 Refills, Maintenance, 08/23/22 8:44:00 EST, Tablet, [facility]/pharmacy #[id number], Label in japanese, cetrizine not effective, 1 tablet By Mouth Daily in AM, 183, cm, 08/22/22 8:28:00 EST, Height, 123.2, kg,... Start Date: 08/23/22 Status: Ordered loratadine 10 mg oral tablet 1, tablet, By Mouth, Daily, PRN, # 90 tablet, Refills 1, NEEDED FOR ALLERGIES, Route to PharmacyElectronically, [id number], 184, cm, 10/18/21 13:37:00 EDT, Height Start [...] SMOKING CESSATION, # 40 gum, 0 Refills, [id number], 184, cm, 12/27/21 11:50:00 EDT, Height Start [...] a day, # 180 capsule, 3 Refills, [facility] STORE 78278, 90, TAKE 1 CAPSULE BY MOUTH TWICE [...] by neurology at [facility], # 270 tablet, 0 Refills, Maintenance, 10/04/22 [...] 26 please send to [facility], 08/08/22 15:41:00 EST, Supply Start Date: 08/08/22 Status: Ordered Symbicort 160mcg/4.5mcg Inhaler 2, puffs, Inhalation, 2 times a day, # 6 Gm, Refills 0, Tot. Refills 0, Maintenance, 12/27/21 12:43:00 EDT, Aerosol, Route to Pharmacy Electronically, [id number], [facility]/pharmacy #[id number], 184, cm, 12/27/21 11:50:00 EDT, [...] Refills, Maintenance, 03/15/22 14:29:00 EDT, [facility], 183, cm, 02/08/22 6:42:00 EDT, Height, 123.2, [...] provided increased discomfort related to nerves. 3Seeing [place] neurology and sleep. Given a trial of Tegretol 200 mg upto 2 tablets twice a day andadvised to continue with Lyrica 300 mg twice a day. Had some improvement of the facial pain with this regimen. 4Seeing [place] neurology and asleep. On 09/11/2018 started on [...] Care Team Personnel Name: Olimpia Parker Position: [facility] Office Staff Member Role: Lifetime Consulting Physician Name: Ivone Oneil MD Position: [facility] Primary Care Physician Member Role: PCP Address: Address: [address] [place] [address]- Care Team Related Persons Name: JARROD BRADFORD Address: home [address] [place] [address] Name: LOLA BRADFORD Address: home [address] [place] [address] Name: GOLDIE LERMA Address: [place] [address] Name: OLIMPIA ELRMA Address: [place] [address] Name: KADE LERMA Address: home [address] [place] [id number] Name: KADE LERMA Address: home [address] [place] [id number]
--- OUTSIDE RECORDS SUMMARY | 2023-11-02 08:32 | XMS_ITS | Continuity of Care Document ---
Author Organization [facility] Address [address] [place] [address]- Care Team Providers Care Clerical Associate Name Role Phone Terence PRATHER, Azra Primary Care Physician Encounter [facility] Date(s): 07/22/20 - 09/06/[address] [address]- Attending Physician: Quinten Alvarado MD Referring Physician: Quinten [...] 01/15/20 9:51:00 EDT, Route to Pharmacy Electronically, [facility]/pharmacy #[id number], 184, cm, 01/15/20 9:11:00 EDT, Height, 123.27, kg, 06/25/19 13:22:00 EST, Dry Weight Start Date: 01/15/20 Stop Date: 03/15/20 Status: Ordered aspirin 81 mg oral tablet 1 tablet = 81 mg, By Mouth, Daily, # 90 tablet, 3 Refills, Maintenance, 01/15/20 9:51:00 EDT, Tablet, [facility]/pharmacy #[id number], 184, cm, 01/15/20 9:11:00 EDT, [...] 02/07/20 9:49:00 EDT, Route to Pharmacy Electronically, [facility]/pharmacy #[id number], 184, cm, 01/29/20 14:16:00 EDT, [...] 08/17/20 13:12:00 EST, Route to Pharmacy Electronically, [facility]/pharmacy #[id number], 184, cm, 02/28/20 15:58:00 EDT, [...] 3 Refills, Maintenance, 01/15/20 9:51:00 EDT, Tablet, [facility]/pharmacy #[id number], 184, cm, 01/15/20 9:11:00 EDT, Height, 123.27, kg, 06/25/19 13:22:00 EST, Dry Weight Start Date: 01/15/20 Stop Date: 03/15/20 Status: Ordered fluticasone 50 mcg/inh nasal spray See Instructions, USE 1 SPRAY IN EACH NOSTRIL EVERY MORNING, # 16 mL, 0 Refills, Maintenance, [facility] STORE 66840, 30, USE 1 SPRAY IN EACH NOSTRIL [...] 2 Refills, Maintenance, 01/27/20 10:39:00 EDT, Capsule, [facility]/pharmacy #[id number], 184, cm, 01/15/20 9:52:00 EDT, Height, 123.27, kg, 06/25/19 13:22:00 EST, Dry Weight Start Date: 01/27/20 Stop Date: 07/25/20 Status: Ordered metFORMIN 500 mg oral tablet 1 tablet = 500 mg, By Mouth, Daily, with meals, # 90 tablet, 11 Refills, Maintenance, 03/02/20 9:56:00 EDT, Tablet, [facility]/pharmacy #[id number], 184, cm, 02/28/20 15:58:00 EDT, Height, 123.27, kg, 06/25/19 13:22:00 EST, Dry Weight Start Date: 03/02/20 Status: Ordered omeprazole 20 mg oral enteric coated capsule 1 capsule = 20 mg, By Mouth, Daily, # 30 capsule, 2 Refills, Maintenance, 02/06/20 16:40:00 EDT, ECCapsule, [facility]/pharmacy #[id number], 184, cm, 01/29/20 14:16:00 EDT, [...] provided increased discomfort related to nerves. 3Seeing [place] neurology and sleep. Given a trial of Tegretol 200 mg upto 2 tablets twice a day andadvised to continue with Lyrica 300 mg twice a day. Had some improvement of the facial pain with this regimen. 4Seeing [place] neurology and asleep. On 09/11/2018 started on [...]
--- OUTSIDE RECORDS SUMMARY | 2023-11-02 08:32 | XMS_ITS | Continuity of Care Document ---
Author Organization [facility] Address [address] [place] [address]- Care Team Providers Care Bromination Equipment Operator Name Role Phone Terence RPATHER, Azra Primary Care Physician Encounter [facility] Date(s): 03/13/20 - 04/12/[address] [address]- [facility] Allergies, Adverse Reactions, Alerts Substance Reaction Severity [...] 01/15/20 9:51:00 EDT, Route to Pharmacy Electronically, [facility]/pharmacy #[id number], 184, cm, 01/15/20 9:11:00 EDT, Height, 123.27, kg, 06/25/19 13:22:00 EST, Dry Weight Start Date: 01/15/20 Stop Date: 03/15/20 Status: Ordered aspirin 81 mg oral tablet 1 tablet = 81 mg, By Mouth, Daily, # 90 tablet, 3 Refills, Maintenance, 01/15/20 9:51:00 EDT, Tablet, [facility]/pharmacy #[id number], 184, cm, 01/15/20 9:11:00 EDT, [...] 02/07/20 9:49:00 EDT, Route to Pharmacy Electronically, [facility]/pharmacy #[id number], 184, cm, 01/29/20 14:16:00 EDT, [...] 13:12:00 EST, Route to Pharmacy Electronically, [facility]/pharmacy #[id number], 184, cm, 02/28/20 15:58:00 EDT, [...] 3 Refills, Maintenance, 01/15/20 9:51:00 EDT, Tablet, [facility]/pharmacy #[id number], 184, cm, 01/15/20 9:11:00 EDT, Height, 123.27, kg, 06/25/19 13:22:00 EST, Dry Weight Start Date: 01/15/20 Stop Date: 03/15/20 Status: Ordered fluticasone 50 mcg/inh nasal spray See Instructions, USE 1 SPRAY IN EACH NOSTRIL EVERY MORNING, # 16 mL, 0 Refills, Maintenance, [facility] ST[facility] [address]303, 30, USE 1 SPRAY IN EACH NOSTRIL [...]
--- OUTSIDE RECORDS SUMMARY | 2023-11-02 08:32 | XMS_ITS | Continuity of Care Document ---
Author Organization [facility] Address [address] [place] [address]- Care Team Providers Care Stove Bottom Worker Name Role Phone Sesar Perdue Primary Care Physician Encounter [facility] Date(s): 01/15/20 - 01/22/20 [facility] [address] [place] [address]- [facility] Encounter Diagnosis DM (diabetes mellitus), type 2 with neurological complications(Discharge Diagnosis) - 01/15/20 Chronic low back pain(Discharge Diagnosis) - 01/15/20 HTN (hypertension)(Discharge Diagnosis) - 01/15/20 Attending Physician: Sesar Perdue Allergies, Adverse Reactions, Alerts Substance Reaction Severity [...] 01/15/20 9:49:00 EDT, Route to Pharmacy Electronically, [facility]/pharmacy #[id number] Tablet, 184, cm, 01/15/20 9:11... Start Date: 01/15/20 Stop Date: 02/14/20 Status: Ordered amLODIPine 10 mg oral tablet 10 mg, 1, tablet, By Mouth, Daily, # 90 tablet, Refills 3, Tot. Refills 3, Maintenance, 01/15/20 9:51:00 EDT, Route to Pharmacy Electronically, [facility]/pharmacy #[id number], 184, cm, 01/15/20 9:11:00 EDT, Height, 123.27, kg, 06/25/19 13:22:00 EST, Dry Weight Start Date: 01/15/20 Stop Date: 03/15/20 Status: Ordered aspirin 81 mg oral tablet 1 tablet = 81 mg, By Mouth, Daily, # 90 tablet, 3 Refills, Maintenance, 01/15/20 9:51:00 EDT, Tablet, [facility]/pharmacy #[id number], 184, cm, 01/15/20 9:11:00 [...] tablet, Refills 0, Tot. Refills 0, Maintenance, 01/15/20 12:52:00 EDT, Route to Pharmacy Electronically, [facility]/pharmacy #[id number], 184, cm, 01/15/20 9:52:00 EDT, Height, 123.27, kg, 06/25/19 13:22:00 EST, Dry Weight Start Date: 01/15/20 Status: Ordered Compression- Lower Extremity (Knee High) [...] EDT, Compound Start Date: 11/23/18 Status: Ordered Diovan 320 mg oral tablet 1 tablet = 320 mg, By Mouth, Daily, # 90 tablet, 3 Refills, Maintenance, 01/15/20 9:51:00 EDT, Tablet, [facility]/pharmacy #[id number], 184, cm, 01/15/20 9:11:00 EDT, Height, 123.27, kg, 06/25/19 13:22:00 EST, Dry Weight Start Date: 01/15/20 Stop Date: 03/15/20 Status: Ordered Flonase 50 mcg/inh nasal spray 1 sprays, Nares, Both, Daily in AM, # 16 Gm, 0 Refills, Maintenance, 01/15/20 12:52:00 EDT, [place], [facility]/pharmacy #[id number], 1 sprays Nares, Both Daily in AM, 184, cm, 01/15/20 9:52:00 EDT, Height, 123.27,kg, 06/25/19 13:22:00 EST, Dry Weight Start Date: 01/15/20 Status: Ordered Freestyle Lite Lancets See Instructions, [...] 19:31:42, Compound Start Date: 07/11/16 Status: Ordered omeprazole 20 mg oral enteric coated capsule 1 capsule = 20 mg, By Mouth, Daily, # 30 capsule, 0 Refills, Maintenance, 01/15/20 9:58:00 EDT, EC Capsule, [facility]/pharmacy #[id number], 184, cm, 01/15/20 9:52:00 EDT, Height, 123.27, kg, 06/25/19 13:22:00 EST, Dry Weight Start Date: 01/15/20 Status: Ordered rosuvastatin 5 mg oral tablet 1 tablet = 5 mg, By Mouth, Daily, # 90 tablet, 3 Refills, Maintenance, 01/15/20 9:51:00 EDT, Tablet, [facility]/pharmacy #[id number], 184, cm, 01/15/20 9:11:00 EDT, Height, 123.27, kg, 06/25/19 13:22:00 EST, Dry Weight Start Date: 01/15/20 Stop Date: 03/15/20 Status: Ordered Problem List Condition Effective Dates [...] increased discomfort related to nerves. 3Seeing [place] neurology and sleep. Given a trial of Tegretol 200 mg upto 2 tablets twice a day andadvised to continue with Lyrica 300 mg twice a day. Had some improvement of the facial pain with this regimen. 4Seeing [place] neurology and asleep. On 09/11/2018 started on a trial of primidone 50 mg, 1 tablet for 1 week and then twice a day. 5Seeing Aydin Castrejon 6per pt, he is on disability, seen by Dr. Pollock 7Simvastatin 40 mg d/sedrick. Diagnosis Diagnosis Type Effective Dates Health Status Clinical Service Informant DM (diabetes mellitus), type 2 with neurological complications Discharge Diagnosis 01/15/20 Chronic low back pain Discharge Diagnosis 01/15/20 HTN (hypertension) Discharge Diagnosis 01/15/20 Vital Signs Most recent to oldest [Reference Range]: 1 2 Height 184 cm (01/15/20 9:52 AM) 184 cm (01/15/20 9:11 AM) Weight 124.6 kg (01/15/20 9:11 AM) Oxygen Saturation [94-100 %] 98 % (01/15/20 9:11 AM) Pulse Rate [55-90 bpm] 67 bpm (01/15/20 9:11 AM) Body Mass Index [18.5-24.99] 36.8 *>HHI* (01/15/20 9:11 AM) Blood Pressure [90-138/55-84 mm Hg] 130/ 80mm Hg (01/15/20 9:52 AM) 140/78mm Hg *H* (01/15/20 9:11 AM) Blood pressure sites Arm, left (01/15/20 9:11 AM) Social History Social History Type Response Smoking Status 5-9 cigarettes (betw een 1/4 to 1/2 pack)/day in last 30 days; Other: Quit in May 2019; entered on: 07/18/19 Sex
--- OUTSIDE RECORDS SUMMARY | 2023-11-02 08:32 | XMS_ITS | Continuity of Care Document ---
Author Organization [facility] Address [address] [place] [address]- Care Team Providers Care Brownfield Redevelopment Site Manager Name Role Phone Terence PRATHER, Azra Primary Care Physician [place] [facility] Date(s): 03/05/20 - 04/04/20 [facility] [address] [place] [address]- [facility] Allergies, Adverse Reactions, Alerts Substance [...] 01/15/20 9:51:00 EDT, Route to Pharmacy Electronically, [facility]/pharmacy #[id number], 184, cm, 01/15/20 9:11:00 EDT, Height, 123.27, kg, 06/25/19 13:22:00 EST, Dry Weight Start Date: 01/15/20 Stop Date: 03/15/20 Status: Ordered aspirin 81 mg oral tablet 1 tablet = 81 mg, By Mouth, Daily, # 90 tablet, 3 Refills, Maintenance, 01/15/20 9:51:00 EDT, Tablet, [facility]/pharmacy #[id number], 184, cm, 01/15/20 [...] 02/07/20 9:49:00 EDT, Route to Pharmacy Electronically, [facility]/pharmacy #[id number], 184, cm, 01/29/20 [...] 08/17/20 13:12:00 EST, Route to Pharmacy Electronically, [facility]/pharmacy #[id number], 184, cm, 02/28/20 [...] 3 Refills, Maintenance, 01/15/20 9:51:00 EDT, Tablet, [facility]/pharmacy #[id number], 184, cm, 01/15/20 9:11:00 EDT, Height, 123.27, kg, 06/25/19 13:22:00 EST, Dry Weight Start Date: 01/15/20 Stop Date: 03/15/20 Status: Ordered fluticasone 50 mcg/inh nasal spray See Instructions, USE 1 SPRAY IN EACH NOSTRIL EVERY MORNING, # 16 mL, 0 Refills, Maintenance, [facility] [address], 30, USE 1 SPRAY IN EACH NOSTRIL [...] provided increased discomfort related to nerves. 3Seeing [place] neurology and sleep. Given a trial of Tegretol 200 mg upto 2 tablets twice a day andadvised to continue with Lyrica 300 mg twice a day. Had some improvement of the facial pain with this regimen. 4Seeing [place] neurology and asleep. On 09/11/2018 started on [...]
--- OUTSIDE RECORDS SUMMARY | 2023-11-02 08:32 | XMS_ITS | Continuity of Care Document ---
Author Organization [facility] Address [address] [place] [address]- Care Team Providers Care Food Assembler Name Role Phone Terence PRATHER, Azra Primary Care Physician [phone] Encounter [facility] R [id number] Date(s): 03/12/20 - 04/15/[address] [address]- [facility] Attending Physician: Not on Staff, Attending MD [...] 01/15/20 9:51:00 EDT, Route to Pharmacy Electronically, [facility]/pharmacy #[id number], 184, cm, 01/15/20 9:11:00 EDT, Height, 123.27, kg, 06/25/19 13:22:00 EST, Dry Weight Start Date: 01/15/20 Stop Date: 03/15/20 Status: Ordered aspirin 81 mg oral tablet 1 tablet = 81 mg, By Mouth, Daily, # 90 tablet, 3 Refills, Maintenance, 01/15/20 9:51:00 EDT, Tablet, [facility]/pharmacy #[id number], 184, cm, 01/15/20 9:11:00 EDT, [...] 02/07/20 9:49:00 EDT, Route to Pharmacy Electronically, [facility]/pharmacy #[id number], 184, cm, 01/29/20 14:16:00 EDT, [...] 13:12:00 EST, Route to Pharmacy Electronically, [facility]/pharmacy #[id number], 184, cm, 02/28/20 15:58:00 EDT, [...] Refills, Maintenance, 01/15/20 9:51:00 EDT, Tablet, [facility]/pharmacy #[id number], 184, cm, 01/15/20 9:11:00 EDT, Height, 123.27, kg, 06/25/19 13:22:00 EST, Dry Weight Start Date: 01/15/20 Stop Date: 03/15/20 Status: Ordered fluticasone 50 mcg/inh nasal spray See Instructions, USE 1 SPRAY IN EACH NOSTRIL EVERY MORNING, # 16 mL, 0 Refills, Maintenance, [facility] [address], 30, USE 1 SPRAY IN EACH NOSTRIL [...] provided increased discomfort related to nerves. 3Seeing [place] neurology and sleep. Given a trial of Tegretol 200 mg upto 2 tablets twice a day andadvised to continue with Lyrica 300 mg twice a day. Had some improvement of the facial pain with this regimen. 4Seeing [place] neurology and asleep. On 09/11/2018 started [...]
--- OUTSIDE RECORDS SUMMARY | 2023-11-02 08:32 | XMS_ITS | Continuity of Care Document ---
Author Organization [facility] Address [address] [place] [address]- Care Team Providers Care Technician Support Engineer Name Role Phone Contractor Krystal FERNANDEZ Primary Care Physician [phone] Encounter [facility] Date(s): 01/27/21 - 02/26/21 [facility] [address] [place], [place] [address] Allergies, Adverse Reactions, Alerts [...] 01/01/21 11:26:00 EDT, [id number] Partial fill upon patient request if the prescription is for a schedule II opioid drug... Start Date: 01/01/21 Status: Ordered aspirin 81 mg oral tablet 1 tablet = 81 mg, By Mouth, Daily, # 90 tablet, 3 Refills, Maintenance, 01/15/20 9:51:00 EDT, Tablet, [facility]/pharmacy #[id number], 184, cm, 01/15/20 9:11:00 [...] length 99 months Please send to [place] [facility], 01/21/21 13:20:00 EDT, Supply Start Date: 01/21/21 Status: Ordered Claritin 10 mg oral tablet 10 mg, 1, tablet, By Mouth, Daily, # 30 tablet, Refills 3, Tot. Refills 3, Maintenance, 01/29/21 9:13:00 EDT, Route to Pharmacy Electronically, [facility]/pharmacy #[id number], 184, cm, 01/29/21 9:06:00 [...] 08/17/20 13:12:00 EST, Route to Pharmacy Electronically, [facility]/pharmacy #[id number], 184, cm, 02/28/20 15:58:00 EDT, Height, 123.27,... Start Date: 08/17/20 Stop Date: 08/02/23 Status: Ordered cyanocobalamin 1000 mcg oral tablet 1,000 mcg, 1, tablet, By Mouth, Daily, # 90 tablet, Refills 11, Tot. Refills 11, Maintenance, 08/02/23 13:12:00 EST, Route to Pharmacy Electronically, [facility]/pharmacy #[id number], 184, cm, 01/01/21 10:56:00 [...] 3 Refills, Maintenance, 01/01/21 11:24:00 EDT, Tablet, [facility]/pharmacy #[id number], 184, cm, 01/01/21 10:56:00 EDT, Height, 123.27, kg, 06/25/19 13:22:00 EST, Dry Weight Start Date: 01/01/21 Status: Ordered docusate sodium 100 mg oral tablet 1 tablet = 100 mg, By Mouth, 2 times a day, PRN for constipation, # 60 tablet, 5 Refills, Maintenance, 01/11/21 15:23:00 EDT, Tablet, [facility]/pharmacy #[id number], Partial fill upon patient request if the prescription is for a schedule II opioid drug., 184, cm,... Start Date: 01/11/21 Status: Ordered fluticasone 50 mcg/inh nasal spray See Instructions, USE 1 SPRAY IN EACH NOSTRIL EVERY MORNING, # 16 mL, 3 Refills, 01/29/21 9:11:00 EDT, [facility]/pharmacy #[id number], 30, USE 1 SPRAY [...] 2 Refills, Maintenance, 02/10/21 13:09:00 EDT, Ointment, [facility]/pharmacy #[id number], Partial fill upon patient request if the prescription is for a schedule II opioid drug., 1 application Top... Start Date: 02/10/21 Status: Ordered metFORMIN 500 mg oral tablet 1 tablet = 500 mg, By Mouth, Daily, with meals, # 90 tablet, 11 Refills, Maintenance, 01/01/21 11:24:00 EDT, Tablet, [facility]/pharmacy #[id number], 184, cm, 01/01/21 10:56:00 EDT, Height, 123.27, kg, 06/25/19 13:22:00 EST, Dry Weight Start Date: 01/01/21 Status: Ordered omega-3 polyunsaturated fatty acids ethyl esters 1000 mg oral capsule 1 capsule = 1,000 mg, By Mouth, 2 times a day, # 60 capsule, 11 Refills, Maintenance, 01/01/21 11:25:00 EDT, Capsule, [facility]/pharmacy #[id number], 1 capsule By Mouth 2 times a day,x30 days, 184, cm, 01/01/21 10:56:00 EDT, Height, 123.27, kg, 06/25/19 13:22:00... Start Date: 01/01/21 Stop Date: 12/27/21 Status: Ordered omeprazole 20 mg oral enteric coated capsule 1 capsule = 20 mg, By Mouth, Daily, # 30 capsule, 2 Refills, Maintenance, 02/24/21 9:28:00 EDT, EC Capsule, [facility]/pharmacy #[id number], 184, cm, 02/03/21 10:57:00 EDT, [...] 28 tablet, 0 Refills, Maintenance, [facility], 184, cm, 02/01/21 10:51:00 EDT, Height, 123.27, [...] Refills, Maintenance, 02/18/21 8:37:00 EDT, Tablet, [id number], Partial fill upon patient request if the [...] provided increased discomfort related to nerves. 3Seeing [place] neurology and sleep. Given a trial of Tegretol 200 mg upto 2 tablets twice a day andadvised to continue with Lyrica 300 mg twice a day. Had some improvement of the facial pain with this regimen. 4Seeing [place] neurology and asleep. On 09/11/2018 started on [...]
--- OUTSIDE RECORDS SUMMARY | 2023-11-02 08:32 | XMS_ITS | Continuity of Care Document ---
Author Organization [facility] Address [address] [place] [address]- Care Team Providers Care Solar Maintenance Technician Name Role Phone Dayo Castano DO Primary Care Physician Encounter [facility] Date(s): 12/12/22 - 01/11/[address] [address]- Allergies, Adverse Reactions, Alerts Substance Reaction Severity Status penicillin Unknown Active gabapentin Active Ventolin HFA Active Flovent HFA Active SEROquel Active hydrOXYzine hydrochloride Ac tive Lantus Active ZyrTEC Active traZODone Active Immunizations Given and Recorded [...] acel(Tdap) 11/25/14 Given 1Result Comment: DILUENT LOT#: [id number] EXP: 11/2022 MFG: FRESENSIUS Medications amitriptyline 100 mg oral tablet 1 tablet = 100 mg, By Mouth, Daily at bedtime, Rx'd by neurology ([facility] # 30 tablet, 0 Refills, Maintenance, 12/08/22 [...] tablet, 1 Refills, Maintenance, 11/28/22 12:36:00 EDT, [facility]/pharmacy#[id number], 183, cm, 11/10/22 8:32:00 EDT, Height, 123.2, [...] Need length 99 months Please send to [facility], 01/21/21 13:20:00 EDT, Supply Start Date: [...] 11/08/22 8:09:00 EDT, Route to Pharmacy Electronically, [facility]/pharmacy #[id number], Partial fill upon patient request if the [...] 07/01/29 13:12:00 EST, Route to Pharmacy Electronically, [facility]/pharmacy #[id number], 183, cm, 08/22/22 8:28:00 EST,Height, 123.2, [...] DAY NEEDED FOR PAIN, # 100 Gm, 0 Refills, Maintenance, 01/07/23 6:18:00 EDT, [facility]/pharmacy #[id number], 30, APPLY TOPICALLY TO AFFECTED ARE TWICEA DAY NEEDED FOR PAIN, 183, cm, 12/08/22 8:26:00... Start Date: 01/07/23 Status: Ordered doxycycline hyclate 100 mg oral tablet 1 tablet = 100 mg, By Mouth, 2 times a day, # 14 tablet, 0 Refills, Maintenance, 12/03/22 9:09:00 EDT, Tablet, [facility]/pharmacy #[id number], Partial fill upon patient [...] tablet, 5 Refills, Maintenance, 11/17/22 10:19:00 EDT,Tablet, [facility]/pharmacy #[id number], Label in eritrean, cetrizine not effective, 1 tablet By Mouth Daily in AM, 183, cm, 11/10/22 8:32:00 EDT, Height, 123.2, kg,... Start Date: 11/17/22 Status: Ordered loratadine 10 mg oral tablet 1, tablet, By Mouth, Daily, PRN, # 90 tablet, Refills 1, NEEDED FOR ALLERGIES, Route to PharmacyElectronically, [facility] STORE 112[facility], 184, cm, 10/18/21 13:37:00 EDT, Height Start [...] # 40 gum, 0 Refills, [facility], 184, cm, 12/27/21 11:50:00 EDT, Height Start [...] # 180 capsule, 3 Refills, [facility], 90, TAKE 1 CAPSULE BY MOUTH TWICE [...] Gm, 1 Refills, Maintenance, 08/31/22 9:06:00 EDT, [facility]/pharmacy #[id number], 14,DISSOLVE 17 GRAMS IN WATER & [...] neurology at [facility], # 120 tablet, Refills 0, Maintenance, 12/08/22 [...] 26 please send to [facility], 08/08/22 15:41:00 EST, Supply Start Date: 08/08/22 Status: Ordered Symbicort 160mcg/4.5mcg Inhaler 2, puffs, Inhalation, 2 times a day, # 6 Gm, Refills 0, Tot. Refills 0, Maintenance, 12/22/22 21:20:00 EDT, Aerosol, Route to Pharmacy Electronically, [id number], [facility]/pharmacy #[id number], 183, cm, 12/08/22 8:26:00 EDT, Height, [...] 5 Refills, Maintenance, 12/03/22 9:00:00 EDT, Tablet, [facility]/pharmacy #[id number], Partial fill upon patient request if the prescription is for a schedule II opioid drug., 183,... Start Date: 12/03/22 Status: Ordered valsartan 320 mg oral tablet 1 tablet, By Mouth, Daily, # 90 tablet, 3 Refills, Maintenance, 03/15/22 14:29:00 EDT, [facility], 183, cm, 02/08/22 6:42:00 EDT, Height, 123.2, [...] provided increased discomfort related to nerves. 3Seeing [place] neurology and sleep. Given a trial of [...] Care Team Personnel Name: Olimpia Parker Position: [facility] Office Staff Member Role: Lifetime Consulting Physician Name: Dayo Castano DO Position: [facility] Resident Member Role: PCP Address: Address: [address] [place] [address]- Care Team Related Persons Name: JARROD BRADFORD Address: home [address] [place] [address] Name: LOLA BRADFORD Address: home [address] [place] [address] Name: GOLDIE [place]ERMA Address: [place] [address] Name: OLIMPIA [place]ERMA Address: [place] [address] Name: KADE LERMA Address: home [address] [place] [id number] Name: KADE LERMA Address: home [address] [place] [address]
--- OUTSIDE RECORDS SUMMARY | 2023-11-02 08:32 | XMS_ITS | Continuity of Care Document ---
Author Organization [facility] Address [address] [place] [address]- Care Team Providers Care Hand Spinner Name Role Phone Dayo Castano MD Primary Care Physician Encounter [facility] Date(s): 08/11/23 - 09/22/[address] [address] Attending Physician: Gay Kaur Admitting Physician: Gay Kaur Referring Physician: Gay Kaur Allergies, Adverse Reactions, [...] influenza virus vaccine, inactivated 04/16/15 Give n [id number] 12y+ bivalent booster vax 02/21/23 Given SARS-CoV-2 (COVID-19) mRNA BNT-162b2 vac 1 06/01/21 Given SARS-CoV-2 (COVID-19) mRNA BNT-162b2 vac 11/07/20 Recorded SARS-CoV-2 (COVID-19) mRNA BNT-162b2 vac 10/17/20 Recorded zoster vaccine, inactivated 06/18/19 Recorded zoster vaccine, inactivated 06/17/19 Recorded zoster vaccine, inactivated 11/25/17 Recorded Influenza Vaccine (oldterm) 02/17/17 Recorded pneumococcal 23-valent vaccine 02/16/16 Given tetanus/diphtheria/pertussis, acel(Tdap) 11/25/14 Given 1Result Comment: DILUENT LOT#: [id number] EXP: 11/2022 MFG: FRESENSIUS Medications Albuterol (Eqv-ProAir [...] Daily at bedtime, Rx'd by neurology ([facility]), # 30 tablet, 0 Refills, [...] 3 Refills, Maintenance, 04/04/23 8:44:00 EDT, Tablet, [facility]/pharmacy #[id number], Partial fill upon patient request if [...] Need length 99 months [facility], 01/21/21 13:20:00 EDT, Supply Start Date: 01/21/21 Status: Ordered carbidopa-levodopa 25 mg-100 mg oral tablet 1 tablet, By Mouth, 2 times a day, Rx'd by neurology at [facility], # 60 tablet, 0 [...] EDT, Route to Pharmacy Electronically, [facility]/pharmacy #[id number], Partial fill upon patient request if [...] EDT, 08/07/23 14:26:00 EST, Cream, [facility]/pharmacy #[id number], Partial fill upon patient request if [...] Refills, Maintenance, 07/04/23 8:59:00 EST, [facility]/pharmacy #[id number], 30, APPLY TOPICALLY TO AFFECTED ARE [...] Daily at bedtime, Rx'd by neurology at [facility], 0 Refills, Maintenance, 10/04/22 8:24:00 EDT, Capsule, Partial fill upon patient request if the prescription is for a schedule II opioid drug. Start Date: 10/04/22 Status: Ordered loratadine 10 mg oral tablet 1, tablet, By Mouth, Daily, PRN, # 90 tablet, Refills 3, Tot. Refills 3, NEEDED FOR ALLERGIES, 04/04/23 8:42:00 EDT, Route to Pharmacy Electronically, [facility]/pharmacy #[id number], 183, cm, 04/04/23 8:24:00EDT, Height, 123.2, kg, 02/07/22 12:47:00 EDT, Dry... Start Date: 04/04/23 Status: Ordered Metamucil 3.4 gm/5.2 gm oral powder for reconstitution = 3.4 Gm, By Mouth, 3 times a day, PRN as needed for constipation, # 425 Gm, 11 Refills, Maintenance, 08/07/23 14:34:00 EST, REC Powder, [facility]/pharmacy #[id number], Partial fill upon patient request if [...] # 40 gum, 0 Refills, [facility] STORE 75236, 184, cm, 12/27/21 11:50:00 EDT, Height Start [...] Stop 03/29/24 8:46:00 EDT, 04/04/23 8:46:00 EDT, [facility]/pharmacy #[id number], 1 capsule By Mouth 2 times a day,x90 days, 183, cm, 04/04/23 8:24:00 EDT, Height, 123.2, kg, 2... Start Date: 04/04/23 Stop Date: 03/29/24 Status: Ordered omeprazole 20 mg oral enteric coated capsule 1 capsule, By Mouth, Daily, # 90 capsule, 3 Refills, Maintenance, 04/04/23 8:46:00 EDT, [facility]/pharmacy #[id number], 183, cm, 04/04/23 8:24:00 EDT, Height, [...] Refills, Maintenance, 04/04/23 8:46:00 EDT, [facility]/pharmacy #[id number], 14,DISSOLVE 17 GRAMS IN WATER & DRINK ONCE A DAY UNTIL BM,... Start Date: 04/04/23 Status: Ordered pregabalin 300 mg oral capsule 1 capsule = 300 mg, By Mouth, 2 times a day, Rx'd by neurology at [facility], # 60 capsule, 0 Refills, Maintenance, 10/04/22 8:24:00 EDT, Capsule, Partial fill upon patient request if the prescription is for a schedule II opioid drug. Start Date: 10/04/22 Status: Ordered primidone 50 mg oral tablet 100 mg, 2, tablet, By Mouth, 2 times a day, rx'd by neurology at [facility], # 120 tablet, Refills 0, [...] times a day, Rx'd by neurology at [facility], # 270 tablet, 0 [...] 26 please send to [facility], 08/08/22 15:41:00 EST, Supply Start Date: 08/08/22 [...] 14:39:00 EST, Aerosol, Route to Pharmacy Electronically, [id number], [facility]/pharmacy #[id number], 183, cm, 08/07/23 14:26:00 EST, Height,... [...] Maintenance, 04/04/23 8:43:00 EDT, Tablet, [facility]/pharmacy #[id number], Partial fill upon patient request if theprescription is for a schedule II opioid drug., 183... Start Date: 04/04/23 Status: Ordered valsartan 320 mg oral tablet 1 tablet, By Mouth, Daily, blood pressure, # 90 tablet, 3 Refills, Maintenance, 04/04/23 8:46:00 EDT, [facility]/pharmacy #[id number], 183, cm, 04/04/23 8:24:00 EDT, Height, 123.2, kg, 02/07/22 12:47:00 EDT, Dry Weight Start Date: 04/04/23 Status: Ordered Vitamin B-12 1000 mcg oral tablet 1, tablet, By Mouth, Daily, # 90 tablet, Refills 1, Maintenance, 08/28/23 13:12:00 EDT, Route to Pharmacy Electronically, [facility] STORE 49224, 183, cm, 08/22/23 13:24:00 EST, Height, 123.2, kg, 02/07/22 12:47:00 EDT, Dry Weight Start Date: 08/28/23 Status: Ordered Xopenex HFA 45 mcg/inh inhalation aerosol 2 puffs, Inhalation, Every 4 hours, PRN Wheezing/Shortness of Breath, replaces Ventolin due to reaction, # 1 each, 1 Refills, Maintenance, 02/15/23 11:23:00 EDT, [facility]erosol, [id number], Partial fill upon patient request if the [...] provided increased discomfort related to nerves. 3Seeing [place] neurology and sleep. Given a trial of [...] Care Team Personnel Name: Casandra Parker Position: [facility] Office Staff Member Role: Lifetime Consulting Physician Name: Dayo Castano MD Position: [facility] Physician - Primary Care Member Role: PCP Address: Address: [address] [place], [place] [address] Care Team Related Persons Name: JARROD BRADFORD Address: home [address] [place] [address] Name: LOLA BRADFORD Address: home [address] [place] [address] Name: GOLDIE LERMA Address: [place] [address] Name: CASANDRA LERMA Address: [place] [address] Name: KADE LERMA Address: home [address] [place] [address] Name: KADE LERMA Address: home [address] [place] [address]
--- OUTSIDE RECORDS SUMMARY | 2023-11-02 08:32 | XMS_ITS | Continuity of Care Document ---
Author Organization [facility] Address [address] [place] [address]- Care Team Providers Care Lighting Technician Name Role Phone Contractor Krystal FERNANDEZ Primary Care Physician [place] [facility] Date(s): 05/06/21 - 06/05/[address] [address] Attending Physician: Admpete, Cristian Admitting Physician: Admtr, Cristian Referring Physician: Admtr, Ar8 Allergies, Adverse Reactions, [...] acel(Tdap) 11/25/14 Given 1Result Comment: DILUENT LOT#: [id number] EXP: 11/2022 MFG: FRESENSIUS Medications amitriptyline 100 mg oral tablet 1 tablet = 100 mg, By Mouth, Daily at bedtime, # 30 tablet, 3 Refills, Maintenance, 04/13/21 10:02:00 EDT, Tablet, [facility]/pharmacy #[id number], [...] Need length 99 months Please send to [place] [facility], 01/21/21 13:20:00 EDT, Supply Start Date: 01/21/21 Status: Ordered carbidopa-levodopa 25 mg-100 mg oral tablet 1 tablet, By Mouth, 3 times a day, [facility], # 270 tablet, 0 Refills, Maintenance, 04/15/21 23:30:00 EDT, Tablet, Partial fill upon patient request if the prescription is for a schedule II opioid drug. Start Date: 04/15/21 Status: Ordered chlorthalidone 25 mg oral tablet 1, tablet, By Mouth, Daily, # 30 tablet, Refills 5, Route to Pharmacy Electronically, [facility] STORE 81357, 184, cm, 03/30/21 16:08:00 EDT, Height, 123.27, [...] 0 Refills, Maintenance, 06/01/21 10:59:00 EST, Tablet, [facility]/pharmacy #[id number], [...] [id number] 184, cm, 01/01/21 10:56:00 [...] 5 Refills, Maintenance, 01/11/21 15:23:00 EDT, Tablet, [id number], Partial fill upon [...] 13:09:00 EDT, Ointment, [facility]/pharmacy #[id number], Partial fill upon patient request if the prescription is for a schedule II opioid drug., 1 application Top... Start Date: 02/10/21 Status: Ordered magnesium oxide 400 mg oral tablet 1 tablet = 400 mg, By Mouth, Daily, Rx'd by Neurology at [facility] [place]/ Dr. Murphy, 0 Refills, Maintenance, 04/15/21 23:30:00 [...] Topically, Daily, for 6 week(s), Rx in Gambian, # 42 patch, 1 Refills, Acute 08/16/21 [...] 2 Refills, Maintenance, 05/04/21 11:15:00 EST, ECCapsule, [facility]/pharmacy #[id number], 184, cm, 04/22/21 15:18:00 EDT, Height, [...] 28 tablet, 0 Refills, Maintenance, [facility], 184, cm, 02/01/21 10:51:00 EDT, Height, 123.27, kg, 06/25/19 13:22:00 EST, Dry Weight Start Date: 02/01/21 Status: Ordered Tylenol Extra Strength 500 mg oral tablet 2 tablet = 1,000 mg, By Mouth, 3 times a day, PRN as needed for pain, # 100 tablet, 5 Refills, Maintenance, 04/13/21 10:08:00 EDT, Tablet, [id number], Partial fill upon patient request if theprescription [...] provided increased discomfort related to nerves. 3Seeing [place] neurology and sleep. Given a trial of Tegretol 200 mg upto 2 tablets twice a day andadvised to continue with Lyrica 300 mg twice a day. Had some improvement of the facial pain with this regimen. 4Seeing [place] neurology and asleep. On 09/11/2018 started on [...]
--- OUTSIDE RECORDS SUMMARY | 2023-11-02 08:32 | XMS_ITS | Continuity of Care Document ---
Author Organization [facility] Address [address] [address]- Care Team Providers Care Slip Feeder Name Role Phone Beth PRATHER, Elian W Primary Care Physician Encounter [facility] Date(s): 05/20/19 - 05/30/19 [facility] [address] [place] [address] [facility] Attending Physician: Cristian Padilla Admitting Physician: AdmtrCristian Referring Physician: AdmtrCristian Allergies, Adverse Reactions, Alerts Substance Reaction Severity Status penicillin Unknown Active gabapentin Active hydrOXYzine hydrochloride Ac tive Lantus Active Ventolin HFA Active Flovent HFA Active metFORMIN pruritis Active traZODone Active ZyrTEC Active SEROquel Active Immunizations Given and Recorded Vaccine Date Status Refusal Reason influenza virus vaccine, inactivated 03/07/19 Give n [...] day, # 60 capsule, 11 Refills, Maintenance, 07/26/18 17:53:45 EDT, Capsule, 1 capsule By Mouth [...] oxygen(Confirmed) Active Osteoarthritis of both knees(Confirmed) Active Right leg pain(Confirmed) Active Bilateral arm [...] increased discomfort related to nerves. 3Seeing [place] neurology and sleep. Given a trial of Tegretol 200 mg upto 2 tablets twice a day andadvised to continue with Lyrica 300 mg twice a day. Had some improvement of the facial pain with this regimen. 4Seeing [place] neurology and asleep. On 09/11/2018 started [...]
--- OUTSIDE RECORDS SUMMARY | 2023-11-02 08:32 | XMS_ITS | Continuity of Care Document ---
Author Organization [facility] Address [address] [place] [address]- Care Team Providers Care Furnace Caretaker Name Role Phone Contractor Krystal FERNANDEZ Primary Care Physician [phone] Encounter [facility] Date(s): 03/18/21 - 04/17/[address] [address] Allergies, Adverse Reactions, Alerts Substance [...] Refills, Maintenance, 04/13/21 10:02:00 EDT, Tablet, [facility]/pharmacy #[id number], Partial [...] Refills, Maintenance, 03/03/21 17:24:00 EDT, Tablet, [facility]/pharmacy #[id number], Partial fill upo... Start Date: 03/03/21 Status: Ordered aspirin 81 mg oral delayed release tablet 81 mg, 1, tablet, By Mouth, Daily, # 90 tablet, Refills 0, Tot. Refills 0, Maintenance, 01/01/21 11:26:00 EDT, [facility] Pharm[facility] Electron[facility] 99 months Please send to [facility], 01/21/21 13:20:00 EDT, Supply Start Date: 01/21/21 Status: Ordered carbidopa-levodopa 25 mg-100 mg oral tablet 1 tablet, By Mouth, 3 times a day, Rx'd by Neurology at [facility] [place]/ Dr. Murphy, # 270 tablet, 0 Refills, Maintenance, 04/15/21 23:30:00 EDT, Tablet, Partial fill upon patient request if the prescription is for a schedule II opioid drug. Start Date: 04/15/21 Status: Ordered chlorthalidone 25 mg oral tablet 1, tablet, By Mouth, Daily, # 30 tablet, Refills 5, Route to Pharmacy Electronically, [facility], 184, cm, 03/30/21 16:08:00 EDT, Height, 123.27, kg, 06/25/19 13:22:00 EST, Dry Weight Start Date: 04/07/21 Status: Ordered Claritin 10 mg oral tablet 10 mg, 1, tablet, By Mouth, Daily, more sea necesario para alergia, # 30 tablet, Refills 5, Tot. Refills 5, Maintenance, 04/13/21 10:04:00 EDT, Route to Pharmacy Electronically, [facility]/pharmacy #[id number], 184, cm, 04/13/21 9:26:00 EDT, Height, [...] Refills, Maintenance, 03/03/21 17:36:00 EDT, Cream, [facility]/pharmacy #[id number], Partial fill upon patient request if the prescription is for a schedule II opioid drug., 1 application Topically 3 ti... Start Date: 03/03/21 Status: Ordered cyanocobalamin 1000 mcg oral tablet 1,000 mcg, 1, tablet, By Mouth, Daily, # 90 tablet, Refills 11, Tot. Refills 11, Maintenance, 08/02/23 13:12:00 EST, Route to Pharmacy Electronically, [facility]/pharmacy #[id number], 184, cm, 01/01/21 10:56:00 EDT, Height, [...] Refills, Maintenance, 01/11/21 15:23:00 EDT, Tablet, [facility]/pharmacy #[id number], Partial fill upon patient request if the prescription is for a schedule II opioid drug., 184, cm,... Start Date: 01/11/21 Status: Ordered escitalopram 5 mg oral tablet 1 tablet = 5 mg, By Mouth, Daily, This is a decrease in dose, # 14 tablet, 0 Refills, Maintenance, 04/05/21 15:54:00 EDT, Tablet, [facility]/pharmacy #[id number], Partial fill upon patient request if the prescription is for a schedule II opioid drug., 184, cm, ... Start Date: 04/05/21 Stop Date: 04/19/21 Status: Ordered fluticasone 50 mcg/inh nasal spray See Instructions, USE 1 SPRAY IN EACH NOSTRIL EVERY MORNING, # 16 mL, 3 Refills, 01/29/21 9:11:00 EDT, [facility]/pharmacy #[id number], 30, USE 1 SPRAY IN EACH [...] Refills, Maintenance, 02/10/21 13:09:00 EDT, Ointment, [facility]/pharmacy #[id number], Partial fill upon patient request if the prescription is for a schedule II opioid drug., 1 application Top... Start Date: 02/10/21 Status: Ordered magnesium oxide 400 mg oral tablet 1 tablet = 400 mg, By Mouth, Daily, [facility], 0 Refills, Maintenance, 04/15/21 [...] 3 Refills, Maintenance, 03/03/21 17:29:00 EDT, Tablet, [facility]/pharmacy #[id number], Partial fill upon p... Start Date: [...] Maintenance, DX: M51. [id number] please send to [facility], 01/21/21 13:20:00 EDT, Supply Start Date: 01/21/21 Status: Ordered sulindac 150 mg oral tablet See Instructions, TAKE 1 TABLET BY MOUTH TWICE A DAY NEEDED FOR PAIN, # 28 tablet, 0 Refills, Maintenance, [facility], 184, cm, 02/01/21 10:51:00 EDT, Height, 123.27, kg, 06/25/19 13:22:00 EST, Dry Weight Start Date: 02/01/21 Status: Ordered Tylenol Extra Strength 500 mg oral tablet 2 tablet = 1,000 mg, By Mouth, 3 times a day, PRN as needed for pain, # 100 tablet, 5 Refills, Maintenance, 04/13/21 10:08:00 EDT, Tablet, [id number], Partial fill upon patient request if theprescription [...] provided increased discomfort related to nerves. 3Seeing [place] neurology and sleep. Given a trial of Tegretol 200 mg upto 2 tablets twice a day andadvised to continue with Lyrica 300 mg twice a day. Had some improvement of the facial pain with this regimen. 4Seeing [place] neurology and asleep. On 09/11/2018 started on [...]
--- OUTSIDE RECORDS SUMMARY | 2023-11-02 08:33 | XMS_ITS | Continuity of Care Document ---
Author Organization [facility] Address [address] [place] [address]- Care Team Providers Care Audit Control Clerk Name Role Phone Eyad PRATHER, Dayo Primary Care Physician [facility]counter [facility] Date(s): 04/24/23 - 05/24/[address] [address]- Allergies, Adverse Reactions, Alerts Substance Reaction Severity [...] influenza virus vaccine, inactivated 04/16/15 Give n [id number] 12y+ bivalent booster vax 02/21/23 Given SARS-CoV-2 (COVID-19) mRNA BNT-162b2 vac 1 06/01/21 Given SARS-CoV-2 (COVID-19) mRNA BNT-162b2 vac 11/07/20 Recorded SARS-CoV-2 (COVID-19) mRNA BNT-162b2 vac 10/17/20 Recorded zoster vaccine, inactivated 06/18/19 Recorded zoster vaccine, inactivated 06/17/19 Recorded zoster vaccine, inactivated 11/25/17 Recorded Influenza Vaccine (oldterm) 02/17/17 Recorded pneumococcal 23-valent vaccine 02/16/16 Given tetanus/diphtheria/pertussis, acel(Tdap) 11/25/14 Given 1Result Comment: DILUENT LOT#: [id number] EXP: 11/2022 MFG: FRESENSIUS Medications Albuterol (Eqv-ProAir [...] Mouth, Daily at bedtime, Rx'd by neurology ([facility]), # 30 tablet, 0 Refills, Maintenance, [...] Refills, Maintenance, 04/04/23 8:44:00 EDT, Tablet, [id number], Partial fill upon patient request if the [...] Need length 99 months Please send to [facility], 01/21/21 13:20:00 EDT, Supply Start Date: 01/21/21 Status: Ordered carbidopa-levodopa 25 mg-100 mg oral tablet 1 tablet, By Mouth, 2 times a day, Rx'd by neurology at [facility], # 60 tablet, 0 Refills, [...] 8:45:00 EDT, [facility] 8:46:00 EDT, Route to Pharmacy Electronically, [facility]/pharmacy #[id number], 183, cm, 04/04/23 8:24:00 [...] 5 Refills, Maintenance, 01/26/23 9:21:00 EDT, [facility]/pharmacy #[id number], 30, APPLY TOPICALLY TO AFFECTED ARE TWICEA DAY NEEDED FOR PAIN, 183, cm, 01/26/23 9:04:00... Start Date: 01/26/23 Status: Ordered diclofenac sodium 75 mg oral delayed release tablet 1 tablet = 75 mg, By Mouth, 2 times a day, PRN Pain , Severe, STOP DICLOFENAC GEL, # 60 tablet, 0 Refills, Maintenance, 05/19/23 12:59:00 EST, EC Tablet, [facility]/pharmacy #[id number], Partial fill upon patientrequest if the [...] 0 Refills, Maintenance, 05/05/23 9:15:00 EST, Tablet, [facility]/pharmacy #[id number], Partial [...] Daily at bedtime, Rx'd by neurology at [facility], 0 Refills, Maintenance, 10/04/22 8:24:00 EDT, Capsule, Partial fill upon patient request if the prescription is for a schedule II opioid drug. Start Date: 10/04/22 Status: Ordered loratadine 10 mg oral tablet 1, tablet, By Mouth, Daily, PRN, # 90 tablet, Refills 3, Tot. Refills 3, NEEDED FOR ALLERGIES, 04/04/23 8:42:00 EDT, Route to Pharmacy Electronically, [facility]/pharmacy #[id number], 183, cm, 04/04/23 8:24:00EDT, Height, 123.2, kg, 02/07/22 12:47:00 EDT, Dry... Start Date: 04/04/23 Status: Ordered Metamucil 3.4 gm/5.2 gm oral powder for reconstitution = 3.4 Gm, By Mouth, 3 times a day, PRN as needed for constipation, # 425 Gm, 11 Refills, Maintenance, 09/12/22 20:51:00 EDT, REC Powder, [facility]/pharmacy #[id number], Partial fill [...] CESSATION, # 40 gum, 0 Refills, [facility], 184, cm, 12/27/21 11:50:00 EDT, Height Start [...] Stop 03/29/24 8:46:00 EDT, 04/04/23 8:46:00 EDT, [facility]/pharmacy #[id number], 1 capsule [...] Gm, 1 Refills, Maintenance, 04/04/23 8:46:00 EDT, [facility]/pharmacy #[id number], 14,DISSOLVE 17 GRAMS IN WATER & DRINK ONCE A DAY UNTIL BM,... Start Date: 04/04/23 Status: Ordered pregabalin 300 mg oral capsule 1 capsule = 300 mg, By Mouth, 2 times a day, Rx'd by neurology at [facility], # 60 capsule, 0 Refills, Maintenance, 10/04/22 8:24:00 EDT, Capsule, Partial fill upon patient request if the prescription is for a schedule II opioid drug. Start Date: 10/04/22 Status: Ordered primidone 50 mg oral tablet 100 mg, 2, tablet, By Mouth, 2 times a day, rx'd by neurology at [facility], # 120 tablet, Refills 0, Maintenance, [...] times a day, Rx'd by neurology at [facility], # 270 tablet, 0 Refills, Maintenance, 10/04/22 [...] 8:44:00 EDT, Aerosol, Route to Pharmacy Electronically, [id number], [facility]/pharmacy #[id number], 183, cm, 04/04/23 8:24:00 [...] 11 Refills, Maintenance, 04/04/23 8:43:00 EDT, Tablet, [facility]/pharmacy #[id number], Partial fill upon patient request if theprescription is for a schedule II opioid drug., 183... Start Date: 04/04/23 Status: Ordered valsartan 320 mg oral tablet 1 tablet, By Mouth, Daily, blood pressure, # 90 tablet, 3 Refills, Maintenance, 04/04/23 8:46:00 EDT, [facility]/pharmacy #[id number], 183, cm, 04/04/23 8:24:00 [...] provided increased discomfort related to nerves. 3Seeing [place] neurology and sleep. Given a trial of [...] Personnel Name: Olimpia Parker Position: [facility] Office Staff Member Role: Lifetime Consulting Physician Name: Dayo Castano MD Position: [facility] Physician - Primary Care Member Role: PCP Address: Address: [address] [place] [address]- Care Team Related Persons Name: JARROD BRADFORD Address: home [address] [place] [address] Name: LOLA BRADFORD Address: home [address] [place] [address] Name: GOLDIE LERMA Address: [place] [address] Name: OLIMPIA LERMA Address: [place] [address] Name: KADE LERMA Address: home [address] [place] [address] Name: KADE LERMA Address: home [address] [place] [address]
--- OUTSIDE RECORDS SUMMARY | 2023-11-02 08:33 | XMS_ITS | Continuity of Care Document ---
Author Organization [facility] Address [address] [place] [address]- Care Team Providers Care Regulatory Auditor Name Role Phone Contractor Krystal FERNANDEZ Primary Care Physician [facility]counter [facility] Date(s): 02/17/21 - 03/19/[address] [address]- Allergies, Adverse Reactions, Alerts Substance Reaction Severity [...] 1 Refills, Maintenance, 03/17/21 10:19:00 EDT, Tablet, [facility]/pharmacy [...] Maintenance, 03/03/21 17:24:00 EDT, Tablet, [facility]/pharmacy #[id number], Partial fill upo... Start Date: 03/03/21 Status: Ordered aspirin 81 mg oral delayed release tablet 81 mg, 1, tablet, By Mouth, Daily, # 90 tablet, Refills 0, Tot. Refills 0, Maintenance, 01/01/21 11:26:00 EDT, Route to Pharmacy Electronically, [facility]/pharmacy #[id number], Partial fill upon patient request if the prescription is for a schedule II opioid drug... Start Date: 01/01/21 Status: Ordered aspirin 81 mg oral tablet 1 tablet = 81 mg, By Mouth, Daily, # 90 tablet, 3 Refills, Maintenance, 01/15/20 9:51:00 EDT, Tablet, [facility]/pharmacy #[id number], 184, cm, 01/15/20 9:11:00 EDT, Height, [...] Need length 99 months Please send to [facility], 01/21/21 13:20:00 EDT, Supply Start Date: 01/21/21 Status: Ordered chlorthalidone 25 mg oral tablet 25 mg, 1, tablet, By Mouth, Daily, # 30 tablet, Refills 0, Tot. Refills 0, Maintenance, 03/03/21 17:24:00 EDT, Route to Pharmacy Electronically, [facility]/pharmacy #[id number], Partial fill upon patient request if the prescription is for a schedule II opioid drug... Start Date: 03/03/21 Status: Ordered Claritin 10 mg oral tablet 10 mg, 1, tablet, By Mouth, Daily, # 30 tablet, Refills 3, Tot. Refills 3, Maintenance, 01/29/21 9:13:00 EDT, Route to Pharmacy Electronically, [facility]/pharmacy #[id number], 184, cm, 01/29/21 9:06:00 EDT, Height, [...] Maintenance, 03/03/21 17:36:00 EDT, Cream, [facility]/pharmacy #[id number], Partial [...] Electronically, [facility]/pharmacy #[id number], 184, cm, 02/28/20 15:58:00 EDT, Height, 123.27,... Start Date: 08/17/20 Stop Date: 08/02/23 Status: Ordered cyanocobalamin 1000 mcg oral tablet 1,000 mcg, 1, tablet, By Mouth, Daily, # 90 tablet, Refills 11, Tot. Refills 11, Maintenance, 08/02/23 13:12:00 EST, Route to Pharmacy Electronically, [facility]/pharmacy #[id number], 184, cm, 01/01/21 10:56:00 EDT, Height, [...] 01/11/21 15:23:00 EDT, Tablet, [facility]/pharmacy #[id number], Partial fill upon patient request if the prescription is for a schedule II opioid drug., 184, cm,... Start Date: 01/11/21 Status: Ordered escitalopram 10 mg oral tablet 1 tablet = 10 mg, By Mouth, Daily, Reduction in dose, # 30 tablet, 2 Refills, Maintenance, 03/18/2113:12:00 EDT, Tablet, [facility]/pharmacy [...] Maintenance, 02/10/21 13:09:00 EDT, Ointment, [facility]/pharmacy #[id number], Partial fill upon patient request if the [...] Maintenance, 03/03/21 17:29:00 EDT, Tablet, [facility]/pharmacy #[id number], Partial fill upon p... Start Date: 03/03/21 Status: Ordered omega-3 polyunsaturated fatty acids ethyl esters 1000 mg oral capsule 1 capsule = 1,000 mg, By Mouth, 2 times a day, # 60 capsule, 11 Refills, Maintenance, 01/01/21 11:25:00 EDT, Capsule, [facility]/pharmacy #[id number], 1 capsule By Mouth 2 times a day,x30 days, 184, cm, 01/01/21 10:56:00 EDT, Height, 123.27, kg, 06/25/19 13:22:00... Start Date: 01/01/21 Stop Date: 12/27/21 Status: Ordered omeprazole 20 mg oral enteric coated capsule 1 capsule = 20 mg, By Mouth, Daily, # 30 capsule, 2 Refills, Maintenance, 02/24/21 9:28:00 EDT, EC Capsule, [facility]/pharmacy #[id number], 184, cm, 02/03/21 10:57:00 EDT, Height, [...] M51. 26 please send to [facility], 01/21/21 13:20:00 EDT, Supply Start Date: 01/21/21 Status: Ordered sulindac 150 mg oral tablet See Instructions, TAKE 1 TABLET BY MOUTH TWICE A DAY NEEDED FOR PAIN, # 28 tablet, 0 Refills, Maintenance, [facility], 184, cm, 02/01/21 10:51:00 EDT, Height, 123.27, [...] 5 Refills, Maintenance, 03/11/21 9:40:00 EDT, Tablet, [facility]/pharmacy #[id number], Partial fill upon patient request if the [...] provided increased discomfort related to nerves. 3Seeing [place] neurology and sleep. Given a trial of Tegretol 200 mg upto 2 tablets twice a day andadvised to continue with Lyrica 300 mg twice a day. Had some improvement of the facial pain with this regimen. 4Seeing [place] neurology and asleep. On 09/11/2018 started on [...]
--- OUTSIDE RECORDS SUMMARY | 2023-11-02 08:33 | XMS_ITS | Continuity of Care Document ---
Author Organization [facility] Address [address] [place] [address]- Care Team Providers Care Senior Business Process Analyst Name Role Phone Dayo Castano MD Primary Care Physician Encounter [facility] Date(s): 08/04/23 - 09/03/[address] [address]- Allergies, Adverse Reactions, Alerts Substance Reaction Severity [...] influenza virus vaccine, inactivated 04/16/15 Give n [id number] 12y+ bivalent booster vax 02/21/23 Given SARS-CoV-2 (COVID-19) mRNA BNT-162b2 vac 1 06/01/21 Given SARS-CoV-2 (COVID-19) mRNA BNT-162b2 vac 11/07/20 Recorded SARS-CoV-2 (COVID-19) mRNA BNT-162b2 vac 10/17/20 Recorded zoster vaccine, inactivated 06/18/19 Recorded zoster vaccine, inactivated 06/17/19 Recorded zoster vaccine, inactivated 11/25/17 Recorded Influenza Vaccine (oldterm) 02/17/17 Recorded pneumococcal 23-valent vaccine 02/16/16 Given tetanus/diphtheria/pertussis, acel(Tdap) 11/25/14 Given 1Result Comment: DILUENT LOT#: [id number] EXP: 11/2022 MFG: FRESENSIUS Medications Albuterol (Eqv-ProAir [...] Mouth, Daily at bedtime, Rx'd by neurology ([facility]), # 30 tablet, 0 Refills, [...] Need length 99 months Please send to [facility], 01/21/21 13:20:00 EDT, Supply Start [...] to Pharmacy Electronically, [facility]/pharmacy #[id number], Partial fill upon [...] 10/06/23 14:26:00 EDT, 08/07/23 14:26:00 EST, Cream, [facility]/pharmacy #[id number], Partial fill upon [...] Gm, 5 Refills, Maintenance, 07/04/23 8:59:00 EST, [facility]/pharmacy #[id number], 30, APPLY TOPICALLY [...] Refills, Maintenance, 08/07/23 14:34:00 EST, REC Powder, [facility]/pharmacy #[id number], Partial [...] gum, 0 Refills, [facility] [id number], 184, cm, 12/27/21 11:50:00 EDT, Height Start [...] times a day, rx'd by neurology at [facility], # 120 tablet, Refills 0, [...] day, Rx'd by neurology at [facility], # 270 tablet, 0 [...] 14:39:00 EST, Aerosol, Route to Pharmacy Electronically, [id number], [facility]/pharmacy #[id number], 183, cm, 08/07/23 14:26:00 EST, Height,... [...] 08/28/23 13:12:00 EDT, Route to Pharmacy Electronically, [facility] 86959, 183, cm, 08/22/23 13:24:00 EST, Height, 123.2, [...] provided increased discomfort related to nerves. 3Seeing [place] neurology and sleep. Given a trial of [...] Personnel Name: Olimpia Parker Position: [facility] Office Staff Member Role: Lifetime Consulting Physician Name: Dayo Castano MD Position: [facility] Physician - Primary Care Member Role: PCP Address: Address: [address] [place] [address]- Care Team Related Persons Name: JARROD BRADFORD Address: home [address] [place] [address] Name: LOLA BRADFORD Address: home [address] [place] [address] Name: GOLDIE LERMA Address: [place] [address] Name: OLIMPIA LERMA Address: [place] [address] Name: KADE LERMA Address: home [address] [place] [address] Name: KADE LERMA Address: home [address] [place] [address]
--- OUTSIDE RECORDS SUMMARY | 2023-11-02 08:33 | XMS_ITS | Continuity of Care Document ---
Author Organization [facility] Address [address] [place] [address]- Care Team Providers Care Wrestling Coach Name Role Phone Dayo Castano MD Primary Care Physician [facility]counter [facility] Date(s): 03/02/23 - 04/01/[address] [address]- Allergies, Adverse Reactions, Alerts Substance Reaction Severity Status penicillin Unknown Active gabapentin Active hydrOXYzine hydrochloride Ac tive Ventolin HFA Active SEROquel Active Lantus Active ZyrTEC Active Flovent HFA Active traZODone Active Immunizations Given and Recorded Vaccine Date Status Refusal Reason [id number] 12y+ bivalent booster vax 02/21/23 Given influenza [...] acel(Tdap) 11/25/14 Given 1Result Comment: DILUENT LOT#: [id number] EXP: 11/2022 MFG: FRESENSIUS Medications Albuterol (Eqv-ProAir HFA) 90 mcg/inh inhalation aerosol 2 puffs, Inhalation, Every 6 hours, please give pt whatver is covered by his insrance use with spacer chamber, # 18 Gm, 5 Refills, Maintenance, 01/26/23 9:27:00 EDT, [facility]/pharmacy #[id number], Partial fill upon patient request if the prescription is for a... Start Date: 01/26/23 Status: Ordered amitriptyline 100 mg oral tablet 1 tablet = 100 mg, By Mouth, Daily at bedtime, Rx'd by neurology ([facility]), # 30 tablet, 0 Refills, [...] tablet, 1 Refills, Maintenance, 11/28/22 12:36:00 EDT, [facility]/pharmacy#[id number], 183, cm, 11/10/22 8:32:00 EDT, Height, 123.2, kg, 02/07/22 12:47:00 EDT, Dry Weight Start Date: 11/28/22 Status: Ordered atorvastatin 20 mg oral tablet 1 tablet = 20 mg, By Mouth, Daily, # 90 tablet, 1 Refills, Maintenance, 11/17/22 10:19:00 EDT, Tablet, [facility]/pharmacy [...] Need length 99 months Please send to [facility], 01/21/21 13:20:00 EDT, Supply Start Date: [...] 11/08/22 8:09:00 EDT, Route to Pharmacy Electronically, [facility]/pharmacy #[id number], Partial fill upon patient request if the [...] 03/04/23 11:42:00 EDT, Route to Pharmacy Electronically, [facility]/pharmacy #[id number], 183, cm, 02/21/23 10:22:00 EDT, Height, [...] Gm, 5 Refills, Maintenance, 01/26/23 9:21:00 EDT, [facility]/pharmacy #[id number], 30, APPLY TOPICALLY TO AFFECTED ARE TWICEA DAY NEEDED FOR PAIN, 183, cm, 01/26/23 9:04:00... Start Date: 01/26/23 Status: Ordered doxycycline hyclate 100 mg oral tablet 1 tablet = 100 mg, By Mouth, 2 times a day, # 14 tablet, 0 Refills, Maintenance, 12/03/22 9:09:00 EDT, Tablet, [facility]/pharmacy [...] tablet, 5 Refills, Maintenance, 11/17/22 10:19:00 EDT,Tablet, [facility]/pharmacy #[id number], Label in italian, cetrizine not effective, 1 tablet By Mouth Daily in AM, 183, cm, 11/10/22 8:32:00 EDT, Height, 123.2, kg,... Start Date: 11/17/22 Status: Ordered loratadine 10 mg oral tablet 1, tablet, By Mouth, Daily, PRN, # 90 tablet, Refills 1, NEEDED FOR ALLERGIES, [facility]ronically, [facility], 184, cm, 10/18/21 13:37:00 EDT, Height Start Date: 10/22/21 Status: Ordered Metamucil 3.4 gm/5.2 gm oral powder for reconstitution = 3.4 Gm, By Mouth, 3 times a day, PRN as needed for constipation, # 425 Gm, 11 Refills, Maintenance, 09/12/22 20:51:00 EDT, REC Powder, [facility]/pharmacy #[id number], Partial [...] SMOKING CESSATION, # 40 gum, 0 Refills, [facility], 184, cm, 12/27/21 11:50:00 EDT, Height Start [...] # 180 capsule, 3 Refills, [facility], 90, TAKE 1 CAPSULE BY MOUTH TWICE A DAY, 183, cm, 02/08/22 6:42:00 EDT, Height, 123.2, kg, 02/07/22 12:47:00 EDT, Dry Weight Start Date: 02/09/22 Status: Ordered omeprazole 20 mg oral enteric coated capsule 1 capsule, By Mouth, Daily, # 90 capsule, 0 Refills, Maintenance, 02/24/23 12:51:00 EDT, [facility]/pharmacy #[id number], 183, cm, 02/21/23 10:22:00 EDT, Height, [...] Gm, 1 Refills, Maintenance, 08/31/22 9:06:00 EDT, [facility]/pharmacy #[id number], 14,DISSOLVE 17 GRAMS IN WATER [...] times a day, rx'd by neurology at [facility], # 120 tablet, Refills 0, [...] please send to [facility], 08/08/22 15:41:00 EST, Supply Start Date: 08/08/22 Status: Ordered Symbicort 160mcg/4.5mcg Inhaler 2, puffs, Inhalation, 2 times a day, # 6 Gm, Refills 0, Tot. Refills 0, Maintenance, 12/22/22 21:20:00 EDT, Aerosol, Route to Pharmacy Electronically, [id number], [facility]/pharmacy #[id number], 183, cm, 12/08/22 8:26:00 EDT, [...] Refills, Maintenance, 02/15/23 11:23:00 EDT, [facility]erosol, [facility], Partial fill upon patient request if [...] provided increased discomfort related to nerves. 3Seeing [place] neurology and sleep. Given a trial of [...] Consulting Physician Name: Dayo Castano MD Position: [facility] Physician - Primary Care Member Role: PCP Address: Address: [address] [place] [address]- [place] Care Team Related Persons Name: JARROD BRADFORD Address: home [address] [place] [address] Name: YARA BRADFORDSY Address: home [address] [place] [address] Name: GOLDIE LERMA Address: [place] [address] Name: OLIMPIA LERMA Address: [place] [address] Name: KADE LERMA Address: home [address] [place] [id number] Name: KADE LERMA Address: home [address] [place] [address]
--- OUTSIDE RECORDS SUMMARY | 2023-11-02 08:33 | XMS_ITS | Continuity of Care Document ---
Author Organization [facility] Address [address] [place] [address]- Care Team Providers Care Rn Orthopaedic Name Role Phone Contractor Krystal FERNANDEZ Primary Care Physician [facility]counter [facility] Date(s): 07/09/21 - 08/08/[address] [address]- Allergies, Adverse Reactions, Alerts Substance Reaction Severity [...] acel(Tdap) 11/25/14 Given 1Result Comment: DILUENT LOT#: [id number] EXP: 11/2022 MFG: FRESENSIUS Medications amitriptyline 100 mg oral tablet 1 tablet = 100 mg, By Mouth, Daily at bedtime, for 30 days, # 30 tablet, 3 Refills, Hard Stop 08/11/21 10:02:00 EST, 04/13/21 10:02:00 EDT, Tablet, [id number], Partial fill upon patient request if the prescription is for a schedule II opioid d... Start Date: 04/13/21 Stop Date: 08/11/21 Status: Ordered amitriptyline 100 mg oral tablet [...] Need length 99 months Please send to [facility], 01/21/21 13:20:00 EDT, Supply Start Date: 01/21/21 Status: Ordered carbidopa-levodopa 25 mg-100 mg oral tablet 1 tablet, By Mouth, 3 times a day, [facility], # 270 tablet, 0 Refills, Maintenance, 04/15/21 23:30:00 EDT, Tablet, Partial fill upon patient request if the prescription is for a schedule II opioid drug. Start Date: 04/15/21 Status: Ordered chlorthalidone 25 mg oral tablet 1, tablet, By Mouth, Daily, # 30 tablet, Refills 5, Route to Pharmacy Electronically, [facility], 184, cm, 03/30/21 16:08:00 EDT, Height, 123.27, [...] 0 Refills, Maintenance, 07/26/21 9:23:00 EST, Tablet, [facility]/pharmacy #[id number], Partialfill upon patient request if the [...] Refills, Maintenance, 07/13/21 12:26:00 EST, Tablet, [facility]/pharmacy #[id number], d/c citalopram 10 mg, 184, cm, [...] Maintenance, 02/10/21 13:09:00 EDT, Ointment, [facility]/pharmacy #5631, Partial fill upon patient request if the prescription is for a schedule II opioid drug., 1 application Top... Start Date: 02/10/21 Status: Ordered magnesium oxide 400 mg oral tablet 1 tablet = 400 mg, By Mouth, Daily, Rx'd by Neurology at [facility]/ Dr. Murphy, 0 Refills, Maintenance, 04/15/21 [...] Topically, Daily, for 6 week(s), Rx in [facility], # 42 patch, 1 Refills, Acute 08/16/21 16:13:00 EST, 05/24/21 16:13:00 EST, Patch, [facility]/pharmacy #[id number], Partial fill upon patient request if theprescription is for a schedule II opioid drug., 1 p... Start Date: 05/24/21 Stop Date: 08/16/21 Status: Ordered omega-3 polyunsaturated fatty acids ethyl esters 1000 mg oral capsule 1 capsule = 1,000 mg, By Mouth, 2 times a day, # 60 capsule, 11 Refills, Maintenance, 01/01/21 11:25:00 EDT, Capsule, [facility]/pharmacy #[id number], 1 capsule By Mouth 2 times a day,x30 days, 184, cm, 01/01/21 10:56:00 EDT, Height, 123.27, kg, 06/25/19 13:22:00... Start Date: 01/01/21 Stop Date: 12/27/21 Status: Ordered omeprazole 20 mg oral enteric coated capsule 1 capsule, By Mouth, Daily, # 90 capsule, 0 Refills, [facility], 184, cm, 06/14/21 11:01:00 EST, Height, 123.27, [...] 28 tablet, 0 Refills, Maintenance, [facility], 184, cm, 02/01/21 10:51:00 EDT, Height, 123.27, kg, 06/25/19 13:22:00 EST, Dry Weight Start Date: 02/01/21 Status: Ordered Tylenol Extra Strength 500 mg oral tablet 2 tablet = 1,000 mg, By Mouth, 3 times a day, PRN as needed for pain, # 100 tablet, 5 Refills, Maintenance, 07/26/21 9:43:00 EST, Tablet, [facility]/pharmacy #7753, Partial fill upon patient request if the [...]
--- OUTSIDE RECORDS SUMMARY | 2023-11-02 08:33 | XMS_ITS | Continuity of Care Document ---
Author Organization [facility] Address [address] [place] [address]- Care Team Providers Care Learning And Development Coordinator Name Role Phone Keeley PRATHER, Dave Dash Primary Care Physician Encounter [facility] Date(s): 11/16/22 - 12/16/[address] [address]- Allergies, Adverse Reactions, Alerts Substance Reaction Severity [...] acel(Tdap) 11/25/14 Given 1Result Comment: DILUENT LOT#: [id number] EXP: 11/2022 MFG: FRESENSIUS Medications amitriptyline 100 mg oral tablet 1 tablet = 100 mg, By Mouth, Daily at bedtime, Rx'd by neurology ([facility]), # 30 tablet, 0 Refills, [...] tablet, 1 Refills, Maintenance, 11/28/22 12:36:00 EDT, [facility]/pharmacy#[id number], 183, cm, 11/10/22 8:32:00 EDT, Height, [...] Need length 99 months Please send to [facility], 01/21/21 13:20:00 EDT, Supply Start Date: 01/21/21 Status: Ordered carbidopa-levodopa 25 mg-100 mg oral tablet 1 tablet, By Mouth, 2 times a day, Rx'd by neurology at [facility], # 60 tablet, 0 Refills, Maintenance, 10/04/22 8:23:00 EDT, Tablet, Partial fill upon patient request if the prescription is for a schedule II opioid drug. Start Date: 10/04/22 Status: Ordered chlorthalidone 25 mg oral tablet 25 mg, 1, tablet, By Mouth, Daily, # 30 tablet, Refills 5, Tot. Refills 5, Maintenance, 11/08/22 8:09:00 EDT, Route to Pharmacy Electronically, [facility]/pharmacy #[id number], Partial fill upon patient request if the [...] 07/01/29 13:12:00 EST, Route to Pharmacy Electronically, [facility]/pharmacy #[id number], 183, cm, 08/22/22 8:28:00 EST,Height, 123.2, kg, 02/07/22 12:47:00 EDT, Dry Weight Start Date: 07/01/29 Stop Date: 12/28/29 Status: Ordered cyclobenzaprine 5 mg oral tablet 1 tablet = 5 mg, By Mouth, 3 times a day, for 14 days, Muscle relaxant. May cause drowsiness. Take only as neded., # 42 tablet, 0 Refills, Acute 12/22/22 15:13:00 EDT, 12/08/22 15:13:00 EDT, Tablet, [facility]/pharmacy #[id number], Partial fill upon patient requ... [...] Gm, 1 Refills, Maintenance, 11/24/22 10:47:00 EDT, [facility]/pharmacy #[id number], 30, APPLY TOPICALLY TO AFFECTED ARE TWICE A DAY NEEDED FOR PAIN, 183, cm, 11/10/22 8:32:0... Start Date: 11/24/22 Status: Ordered doxycycline hyclate 100 mg oral tablet 1 tablet = 100 mg, By Mouth, 2 times a day, # 14 tablet, 0 Refills, Maintenance, 12/03/22 9:09:00 EDT, Tablet, [facility]/pharmacy #[id number], [...] at bedtime, Rx'd by neurology at [facility], 0 Refills, Maintenance, 10/04/22 8:24:00 EDT, Capsule, Partial fill upon patient request if the prescription is for a schedule II opioid drug. Start Date: 10/04/22 Status: Ordered levocetirizine 5 mg oral tablet 1 tablet = 5 mg, By Mouth, Daily in AM, # 30 tablet, 5 Refills, Maintenance, 11/17/22 10:19:00 EDT,Tablet, [id number], Label in afghan, cetrizine not effective, 1 tablet By Mouth Daily in AM, 183, cm, 11/10/22 8:32:00 EDT, Height, 123.2, kg,... Start Date: 11/17/22 Status: Ordered loratadine 10 mg oral tablet 1, tablet, By Mouth, Daily, PRN, # 90 tablet, Refills 1, NEEDED FOR ALLERGIES, Route to PharmacyElectronically, [facility], 184, cm, 10/18/21 13:37:00 EDT, Height Start [...] SMOKING CESSATION, # 40 gum, 0 Refills, [facility], 184, cm, 12/27/21 11:50:00 EDT, Height Start [...] a day, # 180 capsule, 3 Refills, [facility], 90, TAKE 1 CAPSULE BY MOUTH TWICE A DAY, 183, cm, 02/08/22 6:42:00 EDT, Height, 123.2, kg, 02/07/22 12:47:00 EDT, Dry Weight Start Date: 02/09/22 Status: Ordered omeprazole 20 mg oral enteric coated capsule 1 capsule, By Mouth, Daily, # 90 capsule, 0 Refills, Maintenance, 11/24/22 10:47:00 EDT, [facility]/pharmacy #[id number], 183, cm, 11/10/22 8:32:00 EDT, [...] Gm, 1 Refills, Maintenance, 08/31/22 9:06:00 EDT, [facility]/pharmacy #[id number], 14,DISSOLVE 17 GRAMS IN WATER & DRINK ONCE A DAY UNTIL BM,... Start Date: 08/31/22 Status: Ordered pregabalin 300 mg oral capsule 1 capsule = 300 mg, By Mouth, 2 times a day, Rx'd by neurology at [facility], # 60 capsule, 0 Refills, Maintenance, 10/04/22 8:24:00 EDT, Capsule, Partial fill upon patient request if the prescription is for a schedule II opioid drug. Start Date: 10/04/22 Status: Ordered primidone 50 mg oral tablet 100 mg, 2, tablet, By Mouth, 2 times a day, rx'd by neurology at [facility], # 120 tablet, Refills 0, [...] a day, Rx'd by neurology at [facility], # 270 tablet, 0 Refills, Maintenance, [...] 9:08:00 EDT, Aerosol, Route to Pharmacy Electronically, [id number], [facility]/pharmacy #[id number], 183, cm, 12/03/22 8:30:00 EDT, [...] 5 Refills, Maintenance, 12/03/22 9:00:00 EDT, Tablet, [facility]/pharmacy #[id number], Partial fill upon patient request if the prescription is for a schedule II opioid drug., 183,... Start Date: 12/03/22 Status: Ordered valsartan 320 mg oral tablet 1 tablet, By Mouth, Daily, # 90 tablet, 3 Refills, Maintenance, 03/15/22 14:29:00 EDT, [facility], 183, cm, 02/08/22 6:42:00 EDT, Height, 123.2, [...] provided increased discomfort related to nerves. 3Seeing [place] neurology and sleep. Given a trial of [...] Team Personnel Name: Dave Mina MD Position: [facility] Physician - Primary Care Member Role: PCP Address: Address: [address] [place] [address]- Name: Olimpia Parker Position: [facility] JUAN Office Staff Member Role: Lifetime Consulting Physician Care Team Related Persons Name: JARROD BRADFORD Address: home [address] [place] [address] Name: LOLA BRADFORD Address: home [address] [place] [address] Name: GOLDIE LERMA Address: [place] [address] Name: OLIMPIA LERMA Address: [place] [address] Name: KADE LERMA Address: [address] [place] [address] Name: KADE LERMA Address: home [address] [place] [address]
--- OUTSIDE RECORDS SUMMARY | 2023-11-02 08:33 | XMS_ITS | Continuity of Care Document ---
Author Organization [facility] Address [address] [place] [address]- Care Team Providers Care Brokerage Purchase And Sale Clerk Name Role Phone Terence PRATHER, Azra Primary Care Physician Encounter [facility] Date(s): 11/09/20 - 12/13/20 [facility] [address] [place] [id number] Attending Physician: Francisco J LEGGETT, Erika Etienne Admitting Physician: Erika Marx NP Referring Physician: Erika Marx NP Allergies, Adverse Reactions, Alerts Substance Reaction [...] EDT, 11/27/20 10:53:00 EDT, [id number]... Start Date: 11/27/20 Stop Date: 01/27/21 Status: Ordered amLODIPine 10 mg oral tablet 10 mg, 1, tablet, By Mouth, Daily, # 90 tablet, Refills 3, Tot. Refills 3, Maintenance, 10/30/20 15:08:00 EDT, [id number] 184, cm, 10/30/20 14:15:00 EDT, Height, 123.27, kg, 06/25/19 13:22:00 EST, Dry Weight Start Date: 10/30/20 Status: Ordered aspirin 81 mg oral tablet 1 tablet = 81 mg, By Mouth, Daily, # 90 tablet, 3 Refills, Maintenance, 01/15/20 9:51:00 EDT, [id number] 184, cm, 01/15/20 9:11:00 EDT, [...] 02/07/20 9:49:00 EDT, Route to Pharmacy Electronically, [facility]/pharmacy #[id number], 184, cm, 01/29/20 14:16:00 EDT, Height, [...] 1 Refills, Maintenance, 12/03/20 16:21:00 EDT, Gel, [facility]/pharmacy #[id number], Partial fill upon patient request if the prescription is for a schedule II... Start Date: 12/03/20 Status: Ordered Diovan 320 mg oral tablet 1 tablet = 320 mg, By Mouth, Daily, # 90 tablet, 3 Refills, Maintenance, 10/30/20 15:08:00 EDT, Tablet, [facility]/pharmacy #[id number], 184, cm, 10/30/20 14:15:00 EDT, Height, 123.27, kg, 06/25/19 13:22:00 EST, Dry Weight Start Date: 10/30/20 Status: Ordered fluocinonide 0.05% topical cream See Instructions, 1 application Topically 3 times a day, as needed, for itchy rash. apply a thin film to affected areas, # 30 Gm, 0 Refills, Maintenance, 10/03/20 15:41:00 EDT, Cream, [facility]/pharmacy #[id number], Partial fill upon patient request if the presc... Start Date: 10/03/20 Status: Ordered fluticasone 50 mcg/inh nasal spray See Instructions, USE 1 SPRAY IN EACH NOSTRIL EVERY MORNING, # 16 mL, 0 Refills, Maintenance, [facility], 30, USE 1 SPRAY IN EACH NOSTRIL [...] Refills, Maintenance, 11/11/20 9:35:00 EDT, Tablet, [facility], Partial fill upon patient request if the [...] Active KERMIT (obstructive sleep apnea ): bipap 14 2 liters oxygen(Confirmed) Active Osteoarthritis of both [...] provided increased discomfort related to nerves. 3Seeing [place] neurology and sleep. Given a trial of Tegretol 200 mg upto 2 tablets twice a day andadvised to continue with Lyrica 300 mg twice a day. Had some improvement of the facial pain with this regimen. 4Seeing [place] neurology and asleep. On 09/11/2018 started on [...]
--- OUTSIDE RECORDS SUMMARY | 2023-11-02 08:33 | XMS_ITS | Continuity of Care Document ---
Author Organization [facility] Address [address] [place] [address]- Care Team Providers Care Pumping Supervisor Name Role Phone Ivone Oneil MD Primary Care Physician Encounter [facility] Date(s): 12/13/21 - 01/23/[address] [address] Attending Physician: Quinten Alvarado MD Admitting Physician: [...] acel(Tdap) 11/25/14 Given 1Result Comment: DILUENT LOT#: [id number] EXP: 11/2022 MFG: FRESENSIUS Medications amitriptyline 100 mg oral tablet 1 tablet = 100 mg, By Mouth, Daily at bedtime, # 30 tablet, 3 Refills, Maintenance, 12/27/21 12:09:00 EDT, Tablet, [facility]/pharmacy #[id number], Partial [...] 3 Refills, Maintenance, 03/03/21 17:24:00 EDT, Tablet, [facility]/pharmacy #[id number], Partial fill upo... Start Date: 03/03/21 [...] Need length 99 months Please send to [facility], 01/21/21 13:20:00 EDT, Supply Start Date: 01/21/21 Status: Ordered chlorthalidone 25 mg oral tablet 1, tablet, By Mouth, Daily, # 30 tablet, Refills 5, Tot. Refills 5, 09/28/21 8:08:00 EDT, Route to Pharmacy Electronically, [facility]/pharmacy #[id number], 184, cm, 09/15/21 9:12:00 EDT, Height Start Date: 09/28/21 Status: Ordered clonazePAM 2 mg oral tablet See Instructions, 1 tablet by mouth only NEEDED for severe panic attack. Dispense: #20 tabs per 20d., # 20 tablet, 0 Refills, Maintenance, 08/18/21 15:21:00 EST, Tablet, [facility]/pharmacy #[id number], Partial fill [...] 07/17/26 13:12:00 EST, Route to Pharmacy Electronically, [facility]/pharmacy #[id number], 184, cm, 07/26/21 9:11:00 EST, Height [...] 0 Refills, Maintenance, 12/09/21 15:41:00 EDT, Gel, [facility]/pharmacy #[id number], Partial fill upon patient request if the prescription is for a schedule... Start Date: 12/09/21 Stop Date: 12/16/21 Status: Ordered diclofenac 1% topical gel 1 application, Topically, 4 times a day, PRN Pain , Moderate, # 100 Gm, 1 Refills, Maintenance, 11/12/21 8:44:00 EDT, Gel, [facility]/pharmacy #[id number], Partial fill upon patient request if the prescription isfor a schedule II opioid drug., 184, cm, 11/05/21 9... Start Date: 11/12/21 Status: Ordered docusate sodium 100 mg oral tablet 1 tablet = 100 mg, By Mouth, 2 times a day, PRN for constipation, # 60 tablet, 5 Refills, Maintenance, 10/07/21 20:16:00 EDT, Tablet, [facility]/pharmacy #[id number], Partial [...] cm, 03/30/21 16:08:00 EDT, Height, 123.27, kg, 01/07/20 13:22:00 EST, Dry Weight Start Date: 03/30/21 Status: Ordered loratadine 10 mg oral tablet 1, tablet, By Mouth, Daily, PRN, # 90 tablet, Refills 1, NEEDED FOR ALLERGIES, Route to PharmacyElectronically, [id number], 184, cm, 10/18/21 13:37:00 EDT, Height Start Date: 10/22/21 Status: Ordered magnesium oxide 400 mg oral tablet 1 tablet = 400 mg, By Mouth, Daily, [facility] Dr. Murphy, 0 Refills, Maintenance, 04/15/21 23:30:00 [...] 11:13:00 EST, 10/28/21 11:13:00 EDT, REC Powder, [facility]/pharmacy #[id number], Partial fill upon [...] tablet, 3 Refills, Maintenance, 09/16/2211:15:00 EDT, Tablet, [facility]/pharmacy #[id number], Partial f... Start Date: 09/15/21 Status: Ordered Mucinex DM oral tablet, extended release 1 tablet, By Mouth, Every 12 hours, for 14 days, # 28 tablet, 0 Refills, Acute 01/24/22 12:44:00 EDT, 01/10/22 12:44:00 EDT, ER Tablet, [facility]/pharmacy #[id number], Partial fill [...] 12:43:00 EDT, Aerosol, Route to Pharmacy Electronically, [id number], [id number], 184, cm, 12/27/21 11:50:00 EDT, Height Start Date: 12/27/21 Status: Ordered Tylenol Extra Strength 500 mg oral tablet 2 tablet = 1,000 mg, By Mouth, 3 times a day, PRN as needed for pain, # 100 tablet, 5 Refills, Maintenance, 12/07/21 10:44:00 EDT, Tablet, [facility]/pharmacy #[id number], Partial [...] provided increased discomfort related to nerves. 3Seeing [place] neurology and sleep. Given a trial of Tegretol 200 mg upto 2 tablets twice a day andadvised to continue with Lyrica 300 mg twice a day. Had some improvement of the facial pain with this regimen. 4Seeing [place] neurology and asleep. On 09/11/2018 started on [...]
--- OUTSIDE RECORDS SUMMARY | 2023-11-02 08:33 | XMS_ITS | Continuity of Care Document ---
Author Organization [facility] Address [address] [place] [address]- Care Team Providers Care Senior Loss Control Specialist Name Role Phone Dayo Castano MD Primary Care Physician [phone] Encounter [facility] R [id number] Date(s): 09/07/23 - 10/07/[address] [address]- Allergies, Adverse Reactions, Alerts Substance Reaction Severity [...] influenza virus vaccine, inactivated 04/16/15 Give n [id number] 12y+ bivalent booster vax 02/21/23 Given SARS-CoV-2 (COVID-19) mRNA BNT-162b2 vac 1 06/01/21 Given SARS-CoV-2 (COVID-19) mRNA BNT-162b2 vac 11/07/20 Recorded SARS-CoV-2 (COVID-19) mRNA BNT-162b2 vac 10/17/20 Recorded zoster vaccine, inactivated 06/18/19 Recorded zoster vaccine, inactivated 06/17/19 Recorded zoster vaccine, inactivated 11/25/17 Recorded Influenza Vaccine (oldterm) 02/17/17 Recorded pneumococcal 23-valent vaccine 02/16/16 Given tetanus/diphtheria/pertussis, acel(Tdap) 11/25/14 Given 1Result Comment: DILUENT LOT#: [id number] EXP: 11/2022 MFG: FRESENSIUS Medications Albuterol (Eqv-ProAir [...] Mouth, Daily at bedtime, Rx'd by neurology ([facility]), # 30 tablet, 0 Refills, [...] Need length 99 months Please send to [facility], 01/21/21 13:20:00 EDT, Supply Start Date: 01/21/21 [...] 04/04/23 8:45:00 EDT, Route to Pharmacy Electronically, [facility]/pharmacy #[id number], Partial fill upon patient request if the [...] EDT, Supply Start Date: 01/27/21 Status: Ordered [facility] Advanced Healing Ointment 41% [facility] [...] Gm, 5 Refills, Maintenance, 07/04/23 8:59:00 EST, [facility]/pharmacy #[id number], 30, APPLY TOPICALLY TO AFFECTED [...] 04/04/23 8:42:00 EDT, Route to Pharmacy Electronically, [facility]/pharmacy #[id number], 183, cm, 04/04/23 8:24:00EDT, Height, 123.2, kg, 02/07/22 12:47:00 EDT, Dry... Start Date: 04/04/23 Status: Ordered Metamucil 3.4 gm/5.2 gm oral powder for reconstitution = 3.4 Gm, By Mouth, 3 times a day, PRN as needed for constipation, # 425 Gm, 11 Refills, Maintenance, 08/07/23 14:34:00 EST, REC Powder, [facility]/pharmacy #[id number], Partial fill upon patient request if the prescription is for a schedule II opioid drug., 183,... Start Date: 08/07/23 Status: Ordered metFORMIN 500 mg oral tablet 2 tablet, By Mouth, 2 times a day, FOR DIABETES., # 360 tablet, 3 Refills, Maintenance, 09/25/23 15:02:00 EDT, [facility], 183, cm, 08/22/23 13:24:00 EST, Height, 123.2, [...] SMOKING CESSATION, # 40 gum, 0 Refills, [facility], 184, cm, 12/27/21 11:50:00 EDT, Height Start [...] Stop 03/29/24 8:46:00 EDT, 04/04/23 8:46:00 EDT, [facility]/pharmacy #[id number], 1 capsule By Mouth 2 times a day,x90 days, 183, cm, 04/04/23 8:24:00 EDT, Height, 123.2, kg, 01/18... Start Date: 04/04/23 Stop Date: 03/29/24 Status: Ordered omeprazole 20 mg oral enteric coated capsule 1 capsule, By Mouth, Daily, # 90 capsule, 3 Refills, Maintenance, 04/04/23 8:46:00 EDT, [facility]/pharmacy #[id number], 183, cm, 04/04/23 8:24:00 EDT, [...] Gm, 1 Refills, Maintenance, 04/04/23 8:46:00 EDT, [facility]/pharmacy #[id number], 14,DISSOLVE 17 GRAMS IN WATER [...] times a day, rx'd by neurology at [facility], # 120 tablet, Refills 0, [...] day, Rx'd by neurology at [facility], # 270 tablet, [...] Maintenance, DX: M51. [address] [facility], 08/08/22 15:41:00 EST, Supply Start Date: [...] 14:39:00 EST, Aerosol, Route to Pharmacy Electronically, [id number], [facility]/pharmacy #[id number], 183, cm, 08/07/23 14:26:00 EST, [...] 11 Refills, Maintenance, 04/04/23 8:43:00 EDT, Tablet, [facility]/pharmacy #[id number], Partial fill upon patient request if theprescription is for a schedule II opioid drug., 183... Start Date: 04/04/23 Status: Ordered valsartan 320 mg oral tablet 1 tablet, By Mouth, Daily, blood pressure, # 90 tablet, 3 Refills, Maintenance, 04/04/23 8:46:00 EDT, [facility]/pharmacy #[id number], 183, cm, 04/04/23 8:24:00 EDT, Height, 123.2, kg, 02/07/22 12:47:00 EDT, Dry Weight Start Date: 04/04/23 Status: Ordered Vitamin B-12 1000 mcg oral tablet 1, tablet, By Mouth, Daily, # 90 tablet, Refills 1, Maintenance, 08/28/23 13:12:00 EDT, Route to Pharmacy Electronically, [facility], 183, cm, 08/22/23 13:24:00 EST, Height, 123.2, kg, 02/07/22 12:47:00 EDT, Dry Weight Start Date: 08/28/23 Status: Ordered Xopenex HFA 45 mcg/inh inhalation aerosol 2 puffs, Inhalation, Every 4 hours, PRN Wheezing/Shortness of Breath, replaces Ventolin due to reaction, # 1 each, 1 Refills, Maintenance, 02/15/23 11:23:00 EDT, [facility]erosol, [id number], Partial fill upon patient request if the [...] provided increased discomfort related to nerves. 3Seeing [place] neurology and sleep. Given a trial of [...] Personnel Name: Olimpia Parker Position: [facility] JUAN Office Staff Member Role: Lifetime Consulting Physician Name: Dayo Castano MD Position: [facility] Physician - Primary Care Member Role: PCP Address: Address: [address] [place] [address]- [place] Care Team Related Persons Name: JARROD BRADFORD Address: home [address] [place] [address] Name: LOLA BRADFORD Address: home [address] [place] [address] Name: GOLDIE LERMA Address: [place] [address] Name: OLIMPIA LERMA Address: [place] [address] Name: KADE LERMA Address: home [address] [place] [address] Name: KADE LERMA Address: home [address] [place] [address]
--- OUTSIDE RECORDS SUMMARY | 2023-11-02 08:33 | XMS_ITS | Continuity of Care Document ---
Author Organization [facility] Address [address] [place] [address]- Care Team Providers Care Care Services Manager Name Role Phone Contractor Krystal FERNANDEZ Primary Care Physician [phone] Encounter [facility] Date(s): 01/26/21 - 02/25/[address] [address]- Allergies, Adverse Reactions, Alerts Substance Reaction Severity [...] 10/30/20 15:08:00 EDT, Route to Pharmacy Electronically, [facility]/pharmacy #[id number], 184, cm, 10/30/20 14:15:00 EDT, Height, 123.27, kg, 06/25/19 13:22:00 EST, Dry Weight Start Date: 10/30/20 Status: Ordered aspirin 81 mg oral delayed release tablet 81 mg, 1, tablet, By Mouth, Daily, # 90 tablet, Refills 0, Tot. Refills 0, Maintenance, 01/01/21 11:26:00 EDT, Route to Pharmacy Electronically, [facility]/pharmacy #[id number], Partial fill upon patient request if the prescription is for a schedule II opioid drug... Start Date: 01/01/21 Status: Ordered aspirin 81 mg oral tablet 1 tablet = 81 mg, By Mouth, Daily, # 90 tablet, 3 Refills, Maintenance, 01/15/20 9:51:00 EDT, Tablet, [facility]/pharmacy #[id number], 184, cm, 01/15/20 9:11:00 EDT, Height, [...] Need length 99 months Please send to [facility], 01/21/21 13:20:00 EDT, Supply Start Date: 01/21/21 Status: Ordered Claritin 10 mg oral tablet 10 mg, 1, tablet, By Mouth, Daily, # 30 tablet, Refills 3, Tot. Refills 3, Maintenance, 01/29/21 9:13:00 EDT, Route to Pharmacy Electronically, [facility]/pharmacy #[id number], 184, cm, 01/29/21 9:06:00 EDT, Height, [...] 08/17/20 13:12:00 EST, Route to Pharmacy Electronically, [facility]/pharmacy #[id number], 184, cm, 02/28/20 15:58:00 EDT, Height, [...] 3 Refills, Maintenance, 01/01/21 11:24:00 EDT, Tablet, [facility]/pharmacy #[id number], 184, cm, 01/01/21 10:56:00 [...] 11 Refills, Maintenance, 01/01/21 11:24:00 EDT, Tablet, [facility]/pharmacy #[id number], 184, cm, 01/01/21 10:56:00 EDT, Height, 123.27, kg, 06/25/19 13:22:00 EST, Dry Weight Start Date: 01/01/21 Status: Ordered omega-3 polyunsaturated fatty acids ethyl esters 1000 mg oral capsule 1 capsule = 1,000 mg, By Mouth, 2 times a day, # 60 capsule, 11 Refills, Maintenance, 01/01/21 11:25:00 EDT, Capsule, [facility]/pharmacy #[id number], 1 capsule By Mouth 2 times a day,x30 days, 184, cm, 01/01/21 10:56:00 EDT, Height, 123.27, kg, 06/25/19 13:22:00... Start Date: 01/01/21 Stop Date: 12/27/21 Status: Ordered omeprazole 20 mg oral enteric coated capsule 1 capsule = 20 mg, By Mouth, Daily, # 30 capsule, 2 Refills, Maintenance, 02/24/21 9:28:00 EDT, EC Capsule, [facility]/pharmacy #[id number], 184, cm, 02/03/21 10:57:00 EDT, Height, [...] DX: M51. 26 please send to [facility], 01/21/21 13:20:00 EDT, Supply Start Date: 01/21/21 Status: Ordered sulindac 150 mg oral tablet See Instructions, TAKE 1 TABLET BY MOUTH TWICE A DAY NEEDED FOR PAIN, # 28 tablet, 0 Refills, Maintenance, [facility], 184, cm, 02/01/21 10:51:00 EDT, Height, 123.27, [...] 0 Refills, Maintenance, 02/18/21 8:37:00 EDT, Tablet, [facility]/pharmacy #[id number], Partial fill upon patient request if the [...] provided increased discomfort related to nerves. 3Seeing [place] neurology and sleep. Given a trial of Tegretol 200 mg upto 2 tablets twice a day andadvised to continue with Lyrica 300 mg twice a day. Had some improvement of the facial pain with this regimen. 4Seeing [place] neurology and asleep. On 09/11/2018 started on a trial of primidone 50 mg, 1 tablet for 1 week and then twice a day. 5Seeing Aydin Csatrejon 6per pt, he is on disability, seen by Dr. Pollock 7Simvastatin 40 mg d/sedrick. Social History Social History Type Response Smoking Status 5-9 cigarettes (betw een 1/4 to 1/2 pack)/day in last 30 days; Other: Quit in May 2019; entered on: 07/18/19 Sex
--- OUTSIDE RECORDS SUMMARY | 2023-11-02 08:33 | XMS_ITS | Continuity of Care Document ---
Author Organization [facility] Address [address] [place] [address]- Care Team Providers Care Woodworking Belt Sander Name Role Phone Dayo Castano DO Primary Care Physician Encounter [facility] Date(s): 12/19/22 - 01/18/[address] [address]- Allergies, Adverse Reactions, Alerts Substance Reaction Severity Status penicillin Unknown Active gabapentin Active hydrOXYzine hydrochloride Ac tive Lantus Active Flovent HFA Active ZyrTEC Active SEROquel Active traZODone Active Ventolin HFA Active Immunizations Given and [...] acel(Tdap) 11/25/14 Given 1Result Comment: DILUENT LOT#: [id number] EXP: 11/2022 MFG: FRESENSIUS Medications amitriptyline 100 mg oral tablet 1 tablet = 100 mg, By Mouth, Daily at bedtime, Rx'd by neurology ([facility]), # 30 tablet, 0 Refills, [...] tablet, 1 Refills, Maintenance, 11/28/22 12:36:00 EDT, [facility]/pharmacy#[id number], 183, cm, 11/10/22 8:32:00 EDT, Height, 123.2, [...] Need length 99 months Please send to [facility], 01/21/21 13:20:00 EDT, Supply [...] 11/08/22 8:09:00 EDT, Route to Pharmacy Electronically, [facility]/pharmacy #[id number], Partial fill upon patient request if the [...] 07/01/29 13:12:00 EST, Route to Pharmacy Electronically, [facility]/pharmacy #[id number], 183, cm, 08/22/22 8:28:00 EST,Height, 123.2, [...] Gm, 0 Refills, Maintenance, 01/07/23 6:18:00 EDT, [facility]/pharmacy #[id number], 30, APPLY TOPICALLY TO AFFECTED ARE TWICEA DAY NEEDED FOR PAIN, 183, cm, 12/08/22 8:26:00... Start Date: 01/07/23 Status: Ordered doxycycline hyclate 100 mg oral tablet 1 tablet = 100 mg, By Mouth, 2 times a day, # 14 tablet, 0 Refills, Maintenance, 12/03/22 9:09:00 EDT, Tablet, [facility]/pharmacy #[id number], Partial fill upon patient request if [...] tablet, 5 Refills, Maintenance, 11/17/22 10:19:00 EDT,Tablet, [facility]/pharmacy #4161, Label in sinhala, cetrizine not effective, 1 tablet By Mouth Daily in AM, 183, cm, 11/10/22 8:32:00 EDT, Height, 123.2, kg,... Start Date: 11/17/22 Status: Ordered loratadine 10 mg oral tablet 1, tablet, By Mouth, Daily, PRN, # 90 tablet, Refills 1, NEEDED FOR ALLERGIES, Route to PharmacyElectronically, [facility], 184, cm, 10/18/21 13:37:00 EDT, Height Start Date: 10/22/21 Status: Ordered Metamucil 3.4 gm/5.2 gm oral powder for reconstitution = 3.4 Gm, By Mouth, 3 times a day, PRN as needed for constipation, # 425 Gm, 11 Refills, Maintenance, 09/12/22 20:51:00 EDT, REC Powder, [facility]/pharmacy #[id number], Partial fill upon patient request if [...] # 40 gum, 0 Refills, [facility], 184, cm, 12/27/21 11:50:00 EDT, Height Start [...] # 180 capsule, 3 Refills, [facility], 90, TAKE 1 CAPSULE BY MOUTH TWICE A DAY, 183, cm, 02/08/22 6:42:00 EDT, Height, 123.2, kg, 02/07/22 12:47:00 EDT, Dry Weight Start Date: 02/09/22 Status: Ordered omeprazole 20 mg oral enteric coated capsule 1 capsule, By Mouth, Daily, # 90 capsule, 0 Refills, Maintenance, 11/24/22 10:47:00 EDT, [facility]/pharmacy #[id number], 183, cm, 11/10/22 8:32:00 EDT, Height, [...] Gm, 1 Refills, Maintenance, 08/31/22 9:06:00 EDT, [facility]/pharmacy #[id number], 14,DISSOLVE 17 GRAMS IN WATER & [...] times a day, rx'd by neurology at [facility], # 120 tablet, Refills [...] Maintenance, DX: M51. 26 please send to [facility], 08/08/22 15:41:00 EST, Supply Start Date: 08/08/22 Status: Ordered Symbicort 160mcg/4.5mcg Inhaler 2, puffs, Inhalation, 2 times a day, # 6 Gm, Refills 0, Tot. Refills 0, Maintenance, 12/22/22 21:20:00 EDT, Aerosol, Route to Pharmacy Electronically, [id number], [facility]/pharmacy #[id number], 183, cm, 12/08/22 8:26:00 EDT, Height, [...] 5 Refills, Maintenance, 12/03/22 9:00:00 EDT, Tablet, [facility]/pharmacy #[id number], Partial fill upon patient request if the prescription is for a schedule II opioid drug., 183,... Start Date: 12/03/22 Status: Ordered valsartan 320 mg oral tablet 1 tablet, By Mouth, Daily, # 90 tablet, 3 Refills, Maintenance, 03/15/22 14:29:00 EDT, [facility], 183, cm, 02/08/22 6:42:00 EDT, Height, 123.2, [...] provided increased discomfort related to nerves. 3Seeing [place] neurology and sleep. Given a trial of [...] Consulting Physician Name: Dayo Castano DO Position: [facility] Resident Member Role: PCP Address: Address: [address] [place] [address]- Care Team Related Persons Name: JARROD BRADFORD Address: home [address] [place] [address] Name: LOLA BRADFORD Address: home [address] [place] [address] Name: GOLDIE LERMA Address: [place] [address] Name: OLIMPIA LERMA Address: [place] [address] Name: KADE LERMA Address: home [address] [place] [id number] Name: KADE LERMA Address: home [address] [place] [id number]
--- OUTSIDE RECORDS SUMMARY | 2023-11-02 08:33 | XMS_ITS | Continuity of Care Document ---
Author Organization [facility] Address [address] [place] [address]- Care Team Providers Care Client Retention Specialist Name Role Phone Dayo Castano MD Primary Care Physician Encounter [facility] Date(s): 09/07/23 - 11/01/[address] [address]- Attending Physician: Not on Staff, Attending MD [...] influenza virus vaccine, inactivated 04/16/15 Give n [id number] 12y+ bivalent booster vax 02/21/23 Given SARS-CoV-2 (COVID-19) mRNA BNT-162b2 vac 1 06/01/21 Given SARS-CoV-2 (COVID-19) mRNA BNT-162b2 vac 11/07/20 Recorded SARS-CoV-2 (COVID-19) mRNA BNT-162b2 vac 10/17/20 Recorded zoster vaccine, inactivated 06/18/19 Recorded zoster vaccine, inactivated 06/17/19 Recorded zoster vaccine, inactivated 11/25/17 Recorded Influenza Vaccine (oldterm) 02/17/17 Recorded pneumococcal 23-valent vaccine 02/16/16 Given tetanus/diphtheria/pertussis, acel(Tdap) 11/25/14 Given 1Result Comment: DILUENT LOT#: [id number] EXP: 11/2022 MFG: FRESENSIUS Medications amitriptyline 100 mg oral tablet 1 tablet = 100 mg, By Mouth, Daily at bedtime, Rx'd by neurology ([facility]), # 30 tablet, 0 Refills, Maintenance, 12/08/22 15:04:00 EDT, Tablet, Partial fill upon patient request if the prescription is for a schedule II opioid drug. Start Date: 12/08/22 Status: Ordered Aquaphor Healing for Baby topical ointment 1 application, Topically, 2 times a day, PRN as needed for dry skin, # 90 Gm, 0 Refills, Maintenance, 05/05/23 9:12:00 EST, Ointment, [facility]/pharmacy #[id number], Partial fill upon patient request if the [...] opioid drug. Start Date: 10/21/23 Status: Ordered Auto CPAP Auto CPAP, See [...] length 99 months Please send to [facility], 01/21/21 13:20:00 EDT, [...] Gm, 5 Refills, Maintenance, 07/04/23 8:59:00 EST, [facility]/pharmacy #[id number], 30, APPLY TOPICALLY TO AFFECTED ARE TWICEA DAY NEEDED FOR PAIN, 183, cm, 07/04/23 8:49:00... Start Date: 07/04/23 Status: Ordered enoxaparin 100 mg/mL injectable solution See Instructions, Give only 0.8 ml (80mg) Subcutaneous Injection twice Daily 14 days, # 14 mL, 0 Refills, Acute 11/13/23 11:16:00 EDT, 10/31/23 11:14:00 EDT, Solution, [id number], Partial fill upon patient request if the prescription is for a... Start Date: 10/31/23 Stop Date: 11/13/23 Status: Ordered Epsom Salt Epsom Salt, See [...] Refills, Maintenance, 08/07/23 14:34:00 EST, REC Powder, [facility]/pharmacy #[id number], Partial fill upon patient request if the prescription is for a schedule II opioid drug., 183,... Start Date: 08/07/23 Status: Ordered metFORMIN 500 mg oral tablet 2 tablet, By Mouth, 2 times a day, FOR DIABETES., # 360 tablet, 3 Refills, Maintenance, 09/25/23 15:02:00 EDT, [facility], 183, cm, 08/22/23 13:24:00 EST, Height, 123.2, [...] 11 Refills, Maintenance, 04/04/23 8:43:00 EDT, Tablet, [facility]/pharmacy #[id number], Partial [...] drug. Start Date: 10/21/23 Status: Ordered warfarin 7.5 mg oral tablet = 7.5 mg, By Mouth, Daily, # 14 tablet, 0 Refills, Maintenance, 10/31/23 11:16:00 EDT, Tablet, [facility]/pharmacy #[id number], Partial fill upon patient request if the prescription is for a schedule II opioid drug., 183, cm, 08/22/23 13:24:00 EST, Height, 80, kg,... Start Date: 10/31/23 Stop Date: 11/14/23 Status: Ordered Problem List Condition Confirmation Course [...] provided increased discomfort related to nerves. 3Seeing [place] neurology and sleep. Given a trial of [...] Team Personnel Name: Dia José RN Position: [facility] RN Member Role: Primary Care Nurse Name: Maureen Bonilla Position: S RN Member Role: Primary Care Nurse Name: Casandra Parker Position: [facility] Office Staff Member Role: Lifetime Consulting Physician Name: Maureen Olivera LPN Position: S RN Member Role: Primary Care Nurse Name: Quinten Duarte RN Position: [facility] RN Member Role: Primary Care Nurse Name: Wilbert Montero RN Position: S RN Member Role: Primary Care Nurse Name: Dayo Castano MD Position: [facility] Physician - Primary Care Member Role: PCP Address: Address: [address] [place] [address]- Name: Chencho Dickinson MD Position: [facility] Renal MD Member Role: Lifetime Consulting Physician Address: Address: [address] [place] [address] [facility] [place] [address]- Name: Emani Mcpherson RN Position: S RN Member Role: Primary Care Nurse Name: Jacquelyn Licea RN Position: S RN Member Role: Primary Care Nurse Care Team Related Persons Name: AZUCENA RAFITA Address: home [address], [place] Name: JARROD BRADFORD Address: home [address] [place] [address] Name: LOLA BRADFORD Address: home [address] [place] [address] Name: GOLDIE LERMA Address: [place] [address] Name: HILARY LERMA Address: home [address] [facility] [address] [place] [address] Name: CASANDRA LERMA Address: [place] [address] Name: KADE LERMA Address: home [address] [place] [id number] Name: KADE LERMA Address: home [address] [place] [address]
--- OUTSIDE RECORDS SUMMARY | 2023-11-02 08:33 | XMS_ITS | Continuity of Care Document ---
Author Organization [facility] Address [address] [place] [address]- Care Team Providers Care Slip Injector And Applicator Name Role Phone Dayo Castano MD Primary Care Physician [id number] Date(s): 08/18/23 - 10/29/23 [facility] [address] [place] [address]- Attending Physician: Rafael PRATHER, Ryan Admitting Physician: Rafael PRATHER, Ryan Allergies, Adverse Reactions, Alerts Substance Reaction Severity [...] influenza virus vaccine, inactivated 04/16/15 Give n [id number] 12y+ bivalent booster vax 02/21/23 Given SARS-CoV-2 (COVID-19) mRNA BNT-162b2 vac 1 06/01/21 Given SARS-CoV-2 (COVID-19) mRNA BNT-162b2 vac 11/07/20 Recorded SARS-CoV-2 (COVID-19) mRNA BNT-162b2 vac 10/17/20 Recorded zoster vaccine, inactivated 06/18/19 Recorded zoster vaccine, inactivated 06/17/19 Recorded zoster vaccine, inactivated 11/25/17 Recorded Influenza Vaccine (oldterm) 02/17/17 Recorded pneumococcal 23-valent vaccine 02/16/16 Given tetanus/diphtheria/pertussis, acel(Tdap) 11/25/14 Given 1Result Comment: DILUENT LOT#: [id number] EXP: 11/2022 MFG: FRESENSIUS Medications amitriptyline 100 mg oral tablet 1 tablet = 100 mg, By Mouth, Daily at bedtime, Rx'd by neurology ([facility]), # 30 tablet, 0 Refills, Maintenance, 12/08/22 15:04:00 EDT, Tablet, Partial fill upon patient request if the prescription is for a schedule II opioid drug. Start Date: 12/08/22 Status: Ordered Aquaphor Healing for Baby topical ointment 1 application, Topically, 2 times a day, PRN as needed for dry skin, # 90 Gm, 0 Refills, Maintenance, 05/05/23 9:12:00 EST, Ointment, [facility]/pharmacy #[id number], Partial fill upon patient request [...] Need length 99 months Please send to [facility], 01/21/21 13:20:00 EDT, Supply Start Date: 01/21/21 [...] Gm, 5 Refills, Maintenance, 07/04/23 8:59:00 EST, [id number], 30, APPLY TOPICALLY TO AFFECTED ARE [...] Refills, Maintenance, 08/07/23 14:34:00 EST, REC Powder, [facility]/pharmacy #[id number], Partial fill upon patient request if the prescription is for a schedule II opioid drug., 183,... Start Date: 08/07/23 Status: Ordered metFORMIN 500 mg oral tablet 2 tablet, By Mouth, 2 times a day, FOR DIABETES., # 360 tablet, 3 Refills, Maintenance, 09/25/23 15:02:00 EDT, [facility], 183, cm, 08/22/23 13:24:00 EST, Height, 123.2, [...] M51. 26 please send to [facility], 08/08/22 15:41:00 EST, Supply Start Date: [...] 11 Refills, Maintenance, 04/04/23 8:43:00 EDT, Tablet, [facility]/pharmacy #[id number], Partial fill upon patient request if theprescription [...] provided increased discomfort related to nerves. 3Seeing [place] neurology and sleep. Given a trial of [...] Care team information Care Team Personnel Name: Estefanía LOERA, Dia Oswald Position: [facility] RN Member Role: Primary Care Nurse Name: Maureen Bonilla Position: [facility] RN Member Role: Primary Care Nurse Name: Casandra Parker Position: [facility] JUAN Office Staff Member Role: Lifetime Consulting Physician Name: Maureen Olivera LPN Position: [facility] RN Member Role: Primary Care Nurse Name: Quinten Duarte RN Position: [facility] RN Member Role: Primary Care Nurse Name: Dayo Castano MD Position: [facility] Physician - Primary Care Member Role: PCP Address: Address: [address] [place] [address]- Name: Chencho Dickinson MD Position: [facility] Renal MD Member Role: Lifetime Consulting Physician Address: Address: [address] [place] [address] [facility] [place] [address]- Name: Emani Mcpherson RN Position: [facility] RN Member Role: Primary Care Nurse Name: Jacquelyn Licea RN Position: [facility] RN Member Role: Primary Care Nurse Care Team Related Persons Name: AZUCENA RAFITA Address: [address] [place] [address] Name: JARROD BRADFORD Address: home [address] [place] [address] Name: LOLA BRDAFORD Address: home [address] [place] [address] Name: GOLDIE LERMA Address: [place] [address] Name: CASANDRA LERMA Address: [place] [address] Name: KADE LERMA Address: home [address] [place] [address] Name: KADE LERMA Address: home [address] [place] [id number]
--- OUTSIDE RECORDS SUMMARY | 2023-11-02 08:33 | XMS_ITS | Continuity of Care Document ---
Author Organization [facility] Address [address] [place] [address]- Care Team Providers Care Labor Relations Manager Name Role Phone ContractKrystal myles DO Primary Care Physician Encounter [facility] Date(s): 02/15/21 - 04/19/[address] [address] Attending Physician: Krysta Mon DO Admitting Physician: Krysta Mon DO Referring Physician: Krystal Martinez DO Allergies, Adverse Reactions, Alerts Substance Reaction Severity [...] Refills, Maintenance, 04/13/21 10:02:00 EDT, Tablet, [facility]/pharmacy #[id number], Partial fill [...] Refills, Maintenance, 03/03/21 17:24:00 EDT, Tablet, [facility]/pharmacy #[id number], Partial fill upo... Start Date: 03/03/21 Status: Ordered aspirin 81 mg oral delayed release tablet 81 mg, 1, tablet, By Mouth, Daily, # 90 tablet, Refills 0, Tot. Refills 0, Maintenance, 01/01/21 11:26:00 EDT, Route to Pharmacy Electronically, [facility]/pharmacy [...] Need length 99 months Please send to [place] [facility], 01/21/21 13:20:00 EDT, Supply Start Date: 01/21/21 Status: Ordered carbidopa-levodopa 25 mg-100 mg oral tablet 1 tablet, By Mouth, 3 times a day, [facility] Dr. Murphy, # 270 tablet, 0 Refills, Maintenance, 04/15/21 23:30:00 EDT, Tablet, Partial fill upon patient request if the prescription is for a schedule II opioid drug. Start Date: 04/15/21 Status: Ordered chlorthalidone 25 mg oral tablet 1, tablet, By Mouth, Daily, # 30 tablet, Refills 5, Route to Pharmacy Electronically, [facility], 184, cm, 03/30/21 16:08:00 EDT, Height, 123.27, kg, 06/25/19 13:22:00 EST, Dry Weight Start Date: 04/07/21 Status: Ordered Claritin 10 mg oral tablet 10 mg, 1, tablet, By Mouth, Daily, more sea necesario para alergia, # 30 tablet, Refills 5, Tot. Refills 5, Maintenance, 04/13/21 10:04:00 EDT, Route to Pharmacy Electronically, [facility]/pharmacy #[id number], 184, cm, 04/13/21 9:26:00 EDT, Height, [...] Refills, Maintenance, 03/03/21 17:36:00 EDT, Cream, [facility]/pharmacy #[id number], Partial fill upon patient request if the prescription is for a schedule II opioid drug., 1 application Topically 3 ti... Start Date: 03/03/21 Status: Ordered cyanocobalamin 1000 mcg oral tablet 1,000 mcg, 1, tablet, By Mouth, Daily, # 90 tablet, Refills 11, Tot. Refills 11, Maintenance, 08/02/23 13:12:00 EST, Route to Pharmacy Electronically, [facility]/pharmacy #[id number], 184, cm, 01/01/21 10:56:00 EDT, Height, [...] Refills, Maintenance, 01/11/21 15:23:00 EDT, Tablet, [facility]/pharmacy #[id number], Partial fill upon patient request if the prescription is for a schedule II opioid drug., 184, cm,... Start Date: 01/11/21 Status: Ordered escitalopram 5 mg oral tablet 1 tablet = 5 mg, By Mouth, Daily, This is a decrease in dose, # 14 tablet, 0 Refills, Maintenance, 04/05/21 15:54:00 EDT, Tablet, [facility]/pharmacy #[id number], Partial fill upon patient request if the prescription is for a schedule II opioid drug., 184, cm, 10/... Start Date: 04/05/21 Stop Date: 04/19/21 Status: Ordered fluticasone 50 mcg/inh nasal spray See Instructions, USE 1 SPRAY IN EACH NOSTRIL EVERY MORNING, # 16 mL, 3 Refills, 01/29/21 9:11:00 EDT, [facility]/pharmacy #[id number], 30, USE 1 SPRAY IN EACH [...] Refills, Maintenance, 02/10/21 13:09:00 EDT, Ointment, [facility]/pharmacy #[id number], Partial fill upon patient request if the prescription is for a schedule II opioid drug., 1 application Top... Start Date: 02/10/21 Status: Ordered magnesium oxide 400 mg oral tablet 1 tablet = 400 mg, By Mouth, Daily, Rx'd by Neurology at [facility]/ Dr. Murphy, 0 Refills, Maintenance, 04/15/21 23:30:00 [...] Refills, Maintenance, 03/03/21 17:29:00 EDT, Tablet, [facility]/pharmacy #[id number], Partial fill upon p... Start Date: 03/03/21 Status: Ordered omega-3 polyunsaturated fatty acids ethyl esters 1000 mg oral capsule 1 capsule = 1,000 mg, By Mouth, 2 times a day, # 60 capsule, 11 Refills, Maintenance, 01/01/21 11:25:00 EDT, Capsule, [facility]/pharmacy #[id number], 1 capsule By Mouth [...] 26 please send to [facility], 01/21/21 13:20:00 EDT, Supply Start Date: 01/21/21 Status: Ordered sulindac 150 mg oral tablet See Instructions, TAKE 1 TABLET BY MOUTH TWICE A DAY NEEDED FOR PAIN, # 28 tablet, 0 Refills, Maintenance, [facility], 184, cm, 02/01/21 10:51:00 EDT, Height, 123.27, kg, 06/25/19 13:22:00 EST, Dry Weight Start Date: 02/01/21 Status: Ordered Tylenol Extra Strength 500 mg oral tablet 2 tablet = 1,000 mg, By Mouth, 3 times a day, PRN as needed for pain, # 100 tablet, 5 Refills, Maintenance, 04/13/21 10:08:00 EDT, Tablet, [facility], Partial fill upon patient request if theprescription [...] provided increased discomfort related to nerves. 3Seeing [place] neurology and sleep. Given a trial of Tegretol 200 mg upto 2 tablets twice a day andadvised to continue with Lyrica 300 mg twice a day. Had some improvement of the facial pain with this regimen. 4Seeing [place] [facility] and asleep. On 09/11/2018 started on [...]
--- OUTSIDE RECORDS SUMMARY | 2023-11-02 08:33 | XMS_ITS | Continuity of Care Document ---
Author Organization [facility] Adult Address Unknown Care Team Providers Care Batch Dumper Name Role Phone Contractor Krystal FERNANDEZ Primary Care Physician [phone] Encounter [facility] Date(s): 02/18/21 - 03/20/21 [facility] [place] Allergies, Adverse Reactions, Alerts Substance Reaction Severity [...] Maintenance, 01/15/20 9:51:00 EDT, Tablet, [facility]/pharmacy #[id number], 184, cm, 01/15/20 9:11:00 [...] Need length 99 months Please send to [place] [facility], 01/21/21 13:20:00 EDT, Supply [...] [facility]/pharmacy #[id number], 184, cm, 01/29/21 9:06:00 [...] Maintenance, 03/03/21 17:36:00 EDT, Cream, [id number] Partial fill upon patient [...] [id number] 184, cm, 02/28/20 15:58:00 EDT, Height, 123.27,... Start Date: 08/17/20 Stop Date: 08/02/23 Status: Ordered cyanocobalamin 1000 mcg oral tablet 1,000 mcg, 1, tablet, By Mouth, Daily, # 90 tablet, Refills 11, Tot. Refills 11, Maintenance, 08/02/23 13:12:00 EST, Route to Pharmacy Electronically, [id number], 184, cm, 01/01/21 10:56:00 [...] tablet, 2 Refills, Maintenance, 03/18/2113:12:00 EDT, Tablet, [id number], Partial fill upon [...] 03/03/21 17:29:00 EDT, Tablet, [facility]/pharmacy #[id number], Partial fill upon p... Start Date: [...] 9:28:00 EDT, EC Capsule, [facility]/pharmacy #[id number], 184, cm, 02/03/21 10:57:00 EDT, Height, [...] 26 please send to [facility], 01/21/21 13:20:00 EDT, Supply Start Date: 01/21/21 Status: Ordered sulindac 150 mg oral tablet See Instructions, TAKE 1 TABLET BY MOUTH TWICE A DAY NEEDED FOR PAIN, # 28 tablet, 0 Refills, Maintenance, [facility], 184, cm, 02/01/21 10:51:00 EDT, Height, 123.27, [...] Refills, Maintenance, 03/11/21 9:40:00 EDT, Tablet, [id number], Partial fill upon patient request if the [...] week and then twice a day. 5Seeing Adyin Castrejon 6per pt, he is on disability, seen by Dr. Pollock 7Simvastatin 40 mg d/sedrick. Social History Social History Type Response Smoking Status 5-9 cigarettes (betw een 1/4 to 1/2 pack)/day in last 30 days; Other: Quit in May 2019; entered on: 07/18/19 Sex
--- OUTSIDE RECORDS SUMMARY | 2023-11-02 08:34 | XMS_ITS | Continuity of Care Document ---
Author Organization [facility] Address [address] [place] [address]- Care Team Providers Care Financial Controller Name Role Phone Contractor Krystal FERNANDEZ Primary Care Physician [phone] Encounter [facility] Date(s): 05/10/21 - 06/09/[address] [address]- Allergies, Adverse Reactions, Alerts Substance Reaction Severity [...] acel(Tdap) 11/25/14 Given 1Result Comment: DILUENT LOT#: [id number] EXP: 11/2022 MFG: FRESENSIUS Medications amitriptyline 100 mg oral tablet 1 tablet = 100 mg, By Mouth, Daily at bedtime, # 30 tablet, 3 Refills, Maintenance, 04/13/21 10:02:00 EDT, Tablet, [facility]/pharmacy #[id number], [...] 3 Refills, Maintenance, 03/03/21 17:24:00 EDT, Tablet, [facility]/pharmacy #[id number], Partial fill upo... [...] Need length 99 months Please send to [place] [facility], 01/21/21 13:20:00 EDT, Supply Start Date: 01/21/21 Status: Ordered carbidopa-levodopa 25 mg-100 mg oral tablet 1 tablet, By Mouth, 3 times a day, Rx'd by Neurology at [facility] [place]/ Dr. Murphy, # 270 tablet, 0 Refills, Maintenance, 04/15/21 23:30:00 EDT, Tablet, Partial fill upon patient request if the prescription is for a schedule II opioid drug. Start Date: 04/15/21 Status: Ordered chlorthalidone 25 mg oral tablet 1, tablet, By Mouth, Daily, # 30 tablet, Refills 5, Route to Pharmacy Electronically, [facility] STORE 11527, 184, cm, 03/30/21 16:08:00 EDT, Height, 123.27, kg, 06/25/19 13:22:00 EST, Dry Weight Start Date: 04/07/21 Status: Ordered Claritin 10 mg oral tablet 10 mg, 1, tablet, By Mouth, Daily, more sea necesario para alergia, # 30 tablet, Refills 5, Tot. Refills 5, Maintenance, 04/13/21 10:04:00 EDT, Route to Pharmacy Electronically, [facility]/pharmacy #[id number], 184, cm, 04/13/21 9:26:00 EDT, Height, 123.27, kg, 01... Start Date: 04/13/21 Status: Ordered clonazePAM 2 mg oral tablet See Instructions, 1 tablet by mouth only NEEDED for severe panic attack. Dispense: #20 tabs per 30d., # 20 tablet, 0 Refills, Maintenance, 06/01/21 10:59:00 EST, Tablet, [facility]/pharmacy #[id number], Partial [...] 0 Refills, Maintenance, 03/03/21 17:36:00 EDT, Cream, [facility]/pharmacy #[id number], Partial fill [...] By Mouth, Daily, [facility] [place]/ Dr. Murphy, 0 Refills, Maintenance, 04/15/21 23:30:00 [...] 3 Refills, Maintenance, 03/03/21 17:29:00 EDT, Tablet, [facility]/pharmacy #[id number], [...] 28 tablet, 0 Refills, Maintenance, [facility], 184, cm, 02/01/21 10:51:00 EDT, Height, 123.27, kg, 06/25/19 13:22:00 EST, Dry Weight Start Date: 02/01/21 Status: Ordered Tylenol Extra Strength 500 mg oral tablet 2 tablet = 1,000 mg, By Mouth, 3 times a day, PRN as needed for pain, # 100 tablet, 5 Refills, Maintenance, 04/13/21 10:08:00 EDT, Tablet, [id number], Partial fill upon patient request if theprescription [...] provided increased discomfort related to nerves. 3Seeing [place] neurology and sleep. Given a trial of Tegretol 200 mg upto 2 tablets twice a day andadvised to continue with Lyrica 300 mg twice a day. Had some improvement of the facial pain with this regimen. 4Seeing [place] neurology and asleep. On 09/11/2018 started on [...]
--- OUTSIDE RECORDS SUMMARY | 2023-11-02 08:34 | XMS_ITS | Continuity of Care Document ---
Author Organization [facility] Address [address] [place] [address]- Care Team Providers Care Regional Maintenance Manager Name Role Phone Ivone Oneil MD Primary Care Physician Encounter [facility] Date(s): 07/27/22 - 08/26/[address] [address]- Allergies, Adverse Reactions, Alerts Substance Reaction Severity [...] acel(Tdap) 11/25/14 Given 1Result Comment: DILUENT LOT#: [id number] EXP: 11/2022 MFG: FRESENSIUS Medications amitriptyline 100 mg oral tablet 1 tablet = 100 mg, By Mouth, Daily at bedtime, # 30 tablet, 3 Refills, Maintenance, 12/27/21 12:09:00 EDT, Tablet, [facility]/pharmacy #[id number], Partial fill upon [...] 1 Refills, Maintenance, 05/13/22 14:40:00 EST, Tablet, [facility]/pharmacy #[id number], Partial fill upon [...] length 99 months Please send to [facility], 01/21/21 13:20:00 EDT, Supply Start Date: [...] 0 Refills, Maintenance, 08/18/21 15:21:00 EST, Tablet, [facility]/pharmacy #[id number], Partial fill upon [...] 07/17/26 13:12:00 EST, Route to Pharmacy Electronically, [facility]/pharmacy #[id number], 184, cm, 07/26/21 9:11:00 EST, Height Start Date: 07/17/26 Stop Date: 07/01/29 Status: Ordered cyanocobalamin 1000 mcg oral tablet 1,000 mcg, 1, tablet, By Mouth, Daily, for 90 days, # 90 tablet, Refills 11, Tot. Refills 11, Hard Stop 07/17/26 13:12:00 EST, 08/02/23 13:12:00 EST, Route to Pharmacy Electronically, [facility]/pharmacy #[id number], 184, cm, 01/01/21 10:56:00 EDT, Height, 123.27,... Start Date: 08/02/23 Stop Date: 07/17/26 Status: Ordered cyclobenzaprine 5 mg oral tablet 1 tablet = 5 mg, By Mouth, 3 times a day, PRN Pain , Severe, for 10 days, # 30 tablet, 0 Refills, Acute 09/02/22 14:26:00 EDT, 08/23/22 14:26:00 EST, Tablet, [facility]/pharmacy #[id number], Partial fill upon [...] Gm, 2 Refills, Maintenance, 07/28/22 8:54:00 EST, [facility] STORE 59546, 30, APPLY TOPICALLY TO AFFECTED ARE TWICE A DAY NEEDED FOR PAIN, 183, cm, 07/07/22 10:54:00 E... Start Date: 07/28/22 Status: Ordered empagliflozin 10 mg oral tablet 1 tablet = 10 mg, By Mouth, Daily in AM, # 30 tablet, 2 Refills, Maintenance, 08/23/22 8:44:00 EST,Tablet, [facility]/pharmacy #[id number], Partial fill upon patient request if the [...] 2 Refills, Maintenance, 08/23/22 8:44:00 EST, Tablet, [facility]/pharmacy #[id number], Label in marshallese, cetrizine not effective, 1 tablet By Mouth Daily in AM, 183, cm, 08/22/22 8:28:00 EST, Height, 123.2, kg,... Start Date: 08/23/22 Status: Ordered loratadine 10 mg oral tablet 1, tablet, By Mouth, Daily, PRN, # 90 tablet, Refills 1, NEEDED FOR ALLERGIES, Route to PharmacyElectronically, [facility], 184, cm, 10/18/21 13:37:00 EDT, Height Start Date: 10/22/21 Status: Ordered magnesium oxide 400 mg oral tablet 1 tablet = 400 mg, By Mouth, Daily, Rx'd by Neurology at [facility] [place]/ Dr. Murphy, 0 Refills, [...] tablet, 3 Refills, Maintenance, 09/16/2211:15:00 EDT, Tablet, [facility]/pharmacy #[id number], Partial f... Start Date: 09/15/21 Status: Ordered Nicotine 2 mg gum See Instructions, CHEW 1 PIECE OF GUM EVERY 2 HOURS NEEDED FOR SMOKING CESSATION, # 40 gum, 0 Refills, [facility], 184, cm, 12/27/21 11:50:00 EDT, Height Start [...] # 180 capsule, 3 Refills, [facility], 90, TAKE 1 CAPSULE BY MOUTH TWICE [...] Refills, Maintenance, 03/22/22 8:30:00 EDT, [facility], 14, DISSOLVE 17 GRAMS IN WATER & [...] times a day, Rx'd by Neurology at [facility] [place]/ Dr. Murphy, Refills 0, [...] DX: M51. 26 please send to [facility], 08/08/22 15:41:00 EST, Supply Start Date: 08/08/22 Status: Ordered Symbicort 160mcg/4.5mcg Inhaler 2, puffs, Inhalation, 2 times a day, # 6 Gm, Refills 0, Tot. Refills 0, Maintenance, 12/27/21 12:43:00 EDT, Aerosol, Route to Pharmacy Electronically, [id number], [facility]/pharmacy #[id number], 184, cm, 12/27/21 11:50:00 EDT, Height Start Date: 12/27/21 Status: Ordered Tylenol Extra Strength 500 mg oral tablet 2 tablet = 1,000 mg, By Mouth, 3 times a day, PRN as needed for pain, # 100 tablet, 5 Refills, Maintenance, 12/07/21 10:44:00 EDT, Tablet, [facility]/pharmacy #[id number], Partial fill upon patient request if theprescription is for a schedule II opioid drug., 184... Start Date: 12/07/21 Status: Ordered valsartan 320 mg oral tablet 1 tablet, By Mouth, Daily, # 90 tablet, 3 Refills, Maintenance, 03/15/22 14:29:00 EDT, [facility], 183, cm, 02/08/22 6:42:00 EDT, Height, 123.2, [...] provided increased discomfort related to nerves. 3Seeing [place] neurology and sleep. Given a trial of Tegretol 200 mg upto 2 tablets twice a day andadvised to continue with Lyrica 300 mg twice a day. Had some improvement of the facial pain with this regimen. 4Seeing [place] neurology and asleep. On 09/11/2018 started on [...] Care Team Personnel Name: Olimpia Parker Position: [facility] JUAN Office Staff Member Role: Lifetime Consulting Physician Name: Ivone Oneil MD Position: [facility] Primary Care Physician Member Role: PCP Address: Address: [address] [place] [address]- Care Team Related Persons Name: JARROD BRADFORD Address: home [address] [place] [address] Name: LOLA BRADFORD Address: home [address] [place] [address] Name: GOLDIE LERMA Address: [place] [address] Name: OLIMPIA LERMA Address: [place] [address] Name: KADE LERMA Address: home [address] [place] [address] Name: KADE LERMA Address: home [address] [place] [address] [place] [address]
--- OUTSIDE RECORDS SUMMARY | 2023-11-02 08:34 | XMS_ITS | Continuity of Care Document ---
Author Organization [facility] Address [address] [place] [address]- Care Team Providers Care Sample Washer Name Role Phone Keeley PRATHER, Dave Dash Primary Care Physician Encounter [facility] Date(s): 11/17/22 - 12/17/[address] [address]- Allergies, Adverse Reactions, Alerts Substance Reaction Severity [...] acel(Tdap) 11/25/14 Given 1Result Comment: DILUENT LOT#: [id number] EXP: 11/2022 MFG: FRESENSIUS Medications amitriptyline 100 mg oral tablet 1 tablet = 100 mg, By Mouth, Daily at bedtime, Rx'd by neurology ([facility]), # 30 tablet, 0 Refills, Maintenance, [...] tablet, 1 Refills, Maintenance, 11/28/22 12:36:00 EDT, [facility]/pharmacy#[id number], 183, cm, 11/10/22 8:32:00 EDT, Height, [...] length 99 months Please send to [facility], 01/21/21 13:20:00 EDT, Supply Start Date: 01/21/21 Status: Ordered carbidopa-levodopa 25 mg-100 mg oral tablet 1 tablet, By Mouth, 2 times a day, Rx'd by neurology at [facility], # 60 tablet, 0 Refills, Maintenance, 10/04/22 8:23:00 EDT, Tablet, Partial fill upon patient request if the prescription is for a schedule II opioid drug. Start Date: 10/04/22 Status: Ordered chlorthalidone 25 mg oral tablet 25 mg, 1, tablet, By Mouth, Daily, # 30 tablet, Refills 5, Tot. Refills 5, Maintenance, 11/08/22 8:09:00 EDT, Route to Pharmacy Electronically, [facility]/pharmacy #[id number], Partial fill upon patient request if the [...] 07/01/29 13:12:00 EST, Route to Pharmacy Electronically, [facility]/pharmacy #[id number], 183, cm, 08/22/22 8:28:00 EST,Height, 123.2, kg, 02/07/22 12:47:00 EDT, Dry Weight Start Date: 07/01/29 Stop Date: 12/28/29 Status: Ordered cyclobenzaprine 5 mg oral tablet 1 tablet = 5 mg, By Mouth, 3 times a day, for 14 days, Muscle relaxant. May cause drowsiness. Take only as neded., # 42 tablet, 0 Refills, Acute 12/22/22 15:13:00 EDT, 12/08/22 15:13:00 EDT, Tablet, [facility]/pharmacy #[id number], Partial fill upon patient requ... Start [...] Gm, 1 Refills, Maintenance, 11/24/22 10:47:00 EDT, [facility]/pharmacy #[id number], 30, APPLY TOPICALLY TO AFFECTED ARE TWICE A DAY NEEDED FOR PAIN, 183, cm, 11/10/22 8:32:0... Start Date: 11/24/22 Status: Ordered doxycycline hyclate 100 mg oral tablet 1 tablet = 100 mg, By Mouth, 2 times a day, # 14 tablet, 0 Refills, Maintenance, 12/03/22 9:09:00 EDT, Tablet, [facility]/pharmacy #[id number], Partial fill upon patient [...] Daily at bedtime, Rx'd by neurology at [facility], 0 Refills, Maintenance, 10/04/22 8:24:00 EDT, Capsule, Partial fill upon patient request if the prescription is for a schedule II opioid drug. Start Date: 10/04/22 Status: Ordered levocetirizine 5 mg oral tablet 1 tablet = 5 mg, By Mouth, Daily in AM, # 30 tablet, 5 Refills, Maintenance, 11/17/22 10:19:00 EDT,Tablet, [facility]/pharmacy #[id number], Label in croatian, cetrizine not effective, 1 tablet By Mouth Daily in AM, 183, cm, 11/10/22 8:32:00 EDT, Height, 123.2, kg,... Start Date: 11/17/22 Status: Ordered loratadine 10 mg oral tablet 1, tablet, By Mouth, Daily, PRN, # 90 tablet, Refills 1, NEEDED FOR ALLERGIES, Route to PharmacyElectronically, [facility] 339[facility], 184, cm, 10/18/21 13:37:00 EDT, Height Start [...] SMOKING CESSATION, # 40 gum, 0 Refills, [facility] 613[facility], 184, cm, 12/27/21 11:50:00 EDT, Height Start [...] a day, # 180 capsule, 3 Refills, [facility] ST[facility] 38107, 90, TAKE 1 CAPSULE BY MOUTH TWICE A DAY, 183, cm, 02/08/22 6:42:00 EDT, Height, 123.2, kg, 02/07/22 12:47:00 EDT, Dry Weight Start Date: 02/09/22 Status: Ordered omeprazole 20 mg oral enteric coated capsule 1 capsule, By Mouth, Daily, # 90 capsule, 0 Refills, Maintenance, 11/24/22 10:47:00 EDT, [facility]/pharmacy #[id number], 183, cm, 11/10/22 8:32:00 EDT, [...] Gm, 1 Refills, Maintenance, 08/31/22 9:06:00 EDT, [facility]/pharmacy #[id number], 14,DISSOLVE 17 GRAMS IN WATER & DRINK ONCE A DAY UNTIL BM,... Start Date: 08/31/22 Status: Ordered pregabalin 300 mg oral capsule 1 capsule = 300 mg, By Mouth, 2 times a day, Rx'd by neurology at [facility], # 60 capsule, 0 Refills, Maintenance, 10/04/22 8:24:00 EDT, Capsule, Partial fill upon patient request if the prescription is for a schedule II opioid drug. Start Date: 10/04/22 Status: Ordered primidone 50 mg oral tablet 100 mg, 2, tablet, By Mouth, 2 times a day, rx'd by neurology at [facility], # 120 tablet, Refills 0, Maintenance, [...] times a day, Rx'd by neurology at [facility], # 270 tablet, 0 Refills, Maintenance, [...] 9:08:00 EDT, Aerosol, Route to Pharmacy Electronically, [id number], [facility]/pharmacy #[id number], 183, cm, 12/03/22 8:30:00 EDT, Height, [...] 5 Refills, Maintenance, 12/03/22 9:00:00 EDT, Tablet, [facility]/pharmacy #[id number], Partial fill upon patient request if the prescription is for a schedule II opioid drug., 183,... Start Date: 12/03/22 Status: Ordered valsartan 320 mg oral tablet 1 tablet, By Mouth, Daily, # 90 tablet, 3 Refills, Maintenance, 03/15/22 14:29:00 EDT, [facility], 183, cm, 02/08/22 6:42:00 EDT, Height, 123.2, [...] increased discomfort related to nerves. 3Seeing [place] neurology and sleep. Given a trial of [...] Team Personnel Name: Dave Mina MD Position: [facility] Physician - Primary Care Member Role: PCP Address: Address: [address] [place] [address]- Name: Olimpia Parker Position: [facility] JUAN Office Staff Member Role: Lifetime Consulting Physician Care Team Related Persons Name: JARROD BRADFORD Address: home [address] [place] [address] Name: LOLA BRADFORD Address: home [address] [place] [address] Name: GOLDIE LERMA Address: [place] [address] Name: IMELDA LERMANIFER Address: [place] [address] Name: KADE LERMA Address: [address] [place] [address] Name: KADE LERMA Address: home [address] [place] [address]
--- OUTSIDE RECORDS SUMMARY | 2023-11-02 08:34 | XMS_ITS | Continuity of Care Document ---
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 Name Role Phone Contractor Krystal FERNANDEZ Primary Care Physician Encounter [facility] Date(s): 10/29/21 - 11/28/[address] [address]- Allergies, Adverse Reactions, Alerts Substance Reaction Severity [...] acel(Tdap) 11/25/14 Given 1Result Comment: DILUENT LOT#: [id number] EXP: 11/2022 MFG: FRESENSIUS Medications amitriptyline 100 mg oral tablet 1 tablet = 100 mg, By Mouth, Daily at bedtime, # 30 tablet, 3 Refills, Maintenance, 08/11/21 10:02:00 EST, Tablet, [facility]/pharmacy [...] Refills, Maintenance, 09/15/21 12:17:00 EDT, Tablet, [facility]/pharmacy [...] Need length 99 months Please send to [facility] [facility], 01/21/21 13:20:00 EDT, Supply Start Date: 01/21/21 Status: Ordered carbidopa-levodopa 25 mg-100 mg oral tablet 1 tablet, By Mouth, 3 times a day, Rx'd by Neurology at [facility]/ Dr. Murphy, # 270 tablet, 0 Refills, Maintenance, 04/15/21 23:30:00 EDT, Tablet, Partial fill upon patient request if the prescription is for a schedule II opioid drug. Start Date: 04/15/21 Status: Ordered chlorthalidone 25 mg oral tablet 1, tablet, By Mouth, Daily, # 30 tablet, Refills 5, Tot. Refills 5, 09/28/21 8:08:00 EDT, Route to Pharmacy Electronically, [facility]/pharmacy #[id number], 184, cm, 09/15/21 9:12:00 EDT, Height Start [...] Refills, Maintenance, 10/07/21 20:16:00 EDT, Cream, [facility]/pharmacy #[id number], Partial [...] Refills, Maintenance, 11/02/21 14:30:00 EDT, Ointment, [facility]/pharmacy #[id number], Partial fill upon patient request if the prescription is for a schedule II opioid drug., 1 application Top... Start Date: 11/02/21 Status: Ordered loratadine 10 mg oral tablet 1, tablet, By Mouth, Daily, PRN, # 90 tablet, Refills 1, NEEDED FOR ALLERGIES, Route to PharmacyElectronically, [facility] STORE 36094, 184, cm, 10/18/21 13:37:00 EDT, Height Start Date: 10/22/21 Status: Ordered magnesium oxide 400 mg oral tablet 1 tablet = 400 mg, By Mouth, Daily, Rx'd by Neurology at [facility]/ Dr. Murphy, 0 Refills, Maintenance, [...] Refills, Maintenance, 12/27/21 11:25:00 EDT, Capsule, [facility]/pharmacy #[id number], 1 capsule By Mouth [...] 11:25:00 EDT, 01/01/21 11:25:00 EDT, Capsule, [facility]/pharmacy #[id number], 184, [...] 0 Refills, Maintenance, 06/29/21 15:41:00 EST, Capsule, [facility]/pharmacy #[id number], Partial fill upon patient request if the prescription is for a schedule II o... Start Date: 06/29/21 Stop Date: 07/29/21 Status: Ordered Shower Chair See Instructions, # 1 each, Refills 0, Tot. Refills 0, Maintenance, DX: M51. 26 please send to [facility], 01/21/21 13:20:00 EDT, Supply Start Date: 01/21/21 Status: Ordered sulindac 150 mg oral tablet See Instructions, TAKE 1 TABLET BY MOUTH TWICE A DAY NEEDED FOR PAIN, # 28 tablet, 0 Refills, Maintenance, [facility] STORE 75351, 184, cm, 02/01/21 10:51:00 EDT, Height, 123.27, [...] provided increased discomfort related to nerves. 3Seeing [place] neurology and sleep. Given a trial of Tegretol 200 mg upto 2 tablets twice a day andadvised to continue with Lyrica 300 mg twice a day. Had some improvement of the facial pain with this regimen. 4Seeing [place] neurology and asleep. On 09/11/2018 started on [...]
--- OUTSIDE RECORDS SUMMARY | 2023-11-02 08:34 | XMS_ITS | Continuity of Care Document ---
Author Organization [facility] Address [address] [place] [address]- Care Team Providers Care Health Care / Medical Job Titles Name Role Phone Beth PRATHER, Elian W Primary Care Physician [place] [facility] Date(s): 05/23/19 - 06/02/[address] [address]- [facility] Attending Physician: Admtr, Ar8 Admitting Physician: Admtr, Ar8 Referring Physician: Admtr, Ar8 Allergies, Adverse Reactions, [...]
--- OUTSIDE RECORDS SUMMARY | 2023-11-02 08:34 | XMS_ITS | Continuity of Care Document ---
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 Name Role Phone Contractor Krystal FERNANDEZ Primary Care Physician Encounter [facility] Date(s): 08/12/21 - 09/11/[address] [address]- Allergies, Adverse Reactions, Alerts Substance Reaction Severity [...] acel(Tdap) 11/25/14 Given 1Result Comment: DILUENT LOT#: [id number] EXP: 11/2022 MFG: FRESENSIUS Medications amitriptyline 100 mg oral tablet 1 tablet = 100 mg, By Mouth, Daily at bedtime, # 30 tablet, 3 Refills, Maintenance, 08/11/21 10:02:00 EST, Tablet, [facility]/pharmacy [...] Electronically, [facility]/pharmacy #[id number], Partial [...] 9:39:00 EDT, 09/07/21 9:39:00 EDT, Tablet, [facility]/pharmacy #[id number], g., 1 tablet By Mouth [...] Need length 99 months Please send to [email or web address], 01/21/21 13:20:00 EDT, Supply Start Date: 01/21/21 Status: Ordered carbidopa-levodopa 25 mg-100 mg oral tablet 1 tablet, By Mouth, 3 times a day, [facility] Dr. Murphy, # 270 tablet, 0 Refills, Maintenance, 04/15/21 23:30:00 EDT, Tablet, Partial fill upon patient request if the prescription is for a schedule II opioid drug. Start Date: 04/15/21 Status: Ordered chlorthalidone 25 mg oral tablet 1, tablet, By Mouth, Daily, # 30 tablet, Refills 5, Route to Pharmacy Electronically, [facility] 187[facility], 184, cm, 03/30/21 16:08:00 EDT, Height, 123.27, kg, 06/25/19 13:22:00 EST, Dry Weight Start Date: 04/07/21 Status: Ordered Claritin 10 mg oral tablet 10 mg, 1, tablet, By Mouth, Daily, more sea necesario para alergia, # 30 tablet, Refills 5, Tot. Refills 5, Maintenance, 04/13/21 10:04:00 EDT, Route to Pharmacy Electronically, [facility]/pharmacy #[id number], 184, cm, 04/13/21 9:26:00 EDT, [...] Maintenance, 03/03/21 17:36:00 EDT, Cream, [facility]/pharmacy [...] Maintenance, 01/11/21 15:23:00 EDT, Tablet, [facility]/pharmacy #[id number], Partial fill upon patient request if the prescription is for a schedule II opioid drug., 184, cm,... Start Date: 01/11/21 Status: Ordered escitalopram 20 mg oral tablet 1 tablet = 20 mg, By Mouth, Daily, # 30 tablet, 3 Refills, Maintenance, 07/13/21 12:26:00 EST, Tablet, [facility]/pharmacy #[id number], d/c citalopram 10 mg, 184, [...] Maintenance, 02/10/21 13:09:00 EDT, Ointment, [facility]/pharmacy #[id number], Partial fill upon patient request if the prescription is for a schedule II opioid drug., 1 application Top... Start Date: 02/10/21 Status: Ordered magnesium oxide 400 mg oral tablet 1 tablet = 400 mg, By Mouth, Daily, Rx'd by Neurology at [facility]/ Dr. Murphy, 0 Refills, Maintenance, 04/15/21 23:30:00 [...] Maintenance, 03/03/21 17:29:00 EDT, Tablet, [facility]/pharmacy #[id number], Partial fill upon p... Start [...] Mouth, Daily, # 90 capsule, 0 Refills, [facility] 71018, 184, cm, 06/14/21 11:01:00 EST, Height, 123.27, [...] 28 tablet, 0 Refills, Maintenance, [facility], 184, cm, 02/01/21 10:51:00 EDT, Height, 123.27, [...] provided increased discomfort related to nerves. 3Seeing [place] neurology and sleep. Given a trial of Tegretol 200 mg upto 2 tablets twice a day andadvised to continue with Lyrica 300 mg twice a day. Had some improvement of the facial pain with this regimen. 4Seeing [place] neurology and asleep. On 09/11/2018 started on [...]
--- OUTSIDE RECORDS SUMMARY | 2023-11-02 08:34 | XMS_ITS | Continuity of Care Document ---
Author Organization [facility] Address [address] [place] [id number] Care Team Providers Care Batter Out Name Role Phone Contractor Krystal FERNANDEZ Primary Care Physician Encounter [facility] [place], [place] Date(s): 03/30/21 - 06/09/[address] [address]- Attending Physician: Not on Staff, Attending MD [...] acel(Tdap) 11/25/14 Given 1Result Comment: DILUENT LOT#: [id number] EXP: 11/2022 MFG: FRESENSIUS Medications amitriptyline 100 mg oral tablet 1 tablet = 100 mg, By Mouth, Daily at bedtime, # 30 tablet, 3 Refills, Maintenance, 04/13/21 10:02:00 EDT, Tablet, [facility]/pharmacy #[id number], Partial fill [...] Refills, Maintenance, 03/03/21 17:24:00 EDT, Tablet, [facility]/pharmacy #[id number], Partial fill upo... Start Date: 03/03/21 Status: Ordered aspirin 81 mg oral delayed release tablet 81 mg, 1, tablet, By Mouth, Daily, # 90 tablet, Refills 0, Tot. Refills 0, Maintenance, 01/01/21 11:26:00 EDT, Route to Pharmacy Electronically, [facility]/pharmacy #[id number], Partial fill [...] Need length 99 months Please send to [facility], 01/21/21 13:20:00 EDT, Supply Start Date: 01/21/21 Status: Ordered carbidopa-levodopa 25 mg-100 mg oral tablet 1 tablet, By Mouth, 3 times a day, [facility]/ Dr. Murphy, # 270 tablet, 0 Refills, Maintenance, 04/15/21 23:30:00 EDT, Tablet, Partial fill upon patient request if the prescription is for a schedule II opioid drug. Start Date: 04/15/21 Status: Ordered chlorthalidone 25 mg oral tablet 1, tablet, By Mouth, Daily, # 30 tablet, Refills 5, Route to Pharmacy Electronically, [facility] STORE [id number], 184, cm, 03/30/21 16:08:00 EDT, Height, 123.27, kg, 06/25/19 13:22:00 EST, Dry Weight Start Date: 04/07/21 Status: Ordered Claritin 10 mg oral tablet 10 mg, 1, tablet, By Mouth, Daily, more sea necesario para alergia, # 30 tablet, Refills 5, Tot. Refills 5, Maintenance, 04/13/21 10:04:00 EDT, Route to Pharmacy Electronically, [facility]/pharmacy #[id number], 184, cm, 04/13/21 9:26:00 EDT, Height, 123.27, kg, 01... Start Date: 04/13/21 Status: Ordered clonazePAM 2 mg oral tablet See Instructions, 1 tablet by mouth only NEEDED for severe panic attack. Dispense: #20 tabs per 30d., # 20 tablet, 0 Refills, Maintenance, 06/01/21 10:59:00 EST, Tablet, [facility]/pharmacy #[id number], Partial fill [...] Refills, Maintenance, 03/03/21 17:36:00 EDT, Cream, [facility]/pharmacy #[id number], Partial fill upon patient request if the prescription is for a schedule II opioid drug., 1 application Topically 3 ti... Start Date: 03/03/21 Status: Ordered cyanocobalamin 1000 mcg oral tablet 1,000 mcg, 1, tablet, By Mouth, Daily, # 90 tablet, Refills 11, Tot. Refills 11, Maintenance, 08/02/23 13:12:00 EST, Route to Pharmacy Electronically, [facility]/pharmacy #[id number], 184, cm, [...] Refills, Maintenance, 01/11/21 15:23:00 EDT, Tablet, [facility]/pharmacy #[id number], Partial fill [...] Refills, Maintenance, 02/10/21 13:09:00 EDT, Ointment, [facility]/pharmacy #[id number], Partial fill upon patient request if the prescription is for a schedule II opioid drug., 1 application Top... Start Date: 02/10/21 Status: Ordered magnesium oxide 400 mg oral tablet 1 tablet = 400 mg, By Mouth, Daily, Rx'd by Neurology at [facility]/ Dr. Murphy, 0 Refills, Maintenance, 04/15/21 [...] Refills, Maintenance, 03/03/21 17:29:00 EDT, Tablet, [facility]/pharmacy #[id number], Partial fill upon p... Start Date: 03/03/21 Status: Ordered nicotine 21 mg/24 hr transdermal film, extended release 1 patch, Topically, Daily, for 6 week(s), Rx in [place], # 42 patch, 1 Refills, Acute 08/16/21 16:13:00 EST, 05/24/21 16:13:00 EST, Patch, [facility]/pharmacy #[id number], Partial fill [...] 2 Refills, Maintenance, 05/04/21 11:15:00 EST, ECCapsule, [facility]/pharmacy #[id number], 184, cm, 04/22/21 15:18:00 EDT, Height, 123.27, kg, 06/25/19 13:22:00 EST, Dry Weight Start Date: 05/04/21 Status: Ordered pregabalin 300 mg oral capsule TAKE 1 CAPSULE BY MOUTH TWICE A DAY NEEDED FOR PAIN Start Date: 01/29/21 Status: Ordered Shower Chair See Instructions, # 1 each, Refills 0, Tot. Refills 0, Maintenance, DX: M51. 26 please send to [facility], 01/21/21 13:20:00 EDT, Supply Start Date: 01/21/21 Status: Ordered sulindac 150 mg oral tablet See Instructions, TAKE 1 TABLET BY MOUTH TWICE A DAY NEEDED FOR PAIN, # 28 tablet, 0 Refills, Maintenance, [id number], 184, cm, 02/01/21 10:51:00 EDT, Height, 123.27, kg, 06/25/19 13:22:00 EST, Dry Weight Start Date: 02/01/21 Status: Ordered Tylenol Extra Strength 500 mg oral tablet 2 tablet = 1,000 mg, By Mouth, 3 times a day, PRN as needed for pain, # 100 tablet, 5 Refills, Maintenance, 04/13/21 10:08:00 EDT, Tablet, [id number], Partial fill upon patient request if theprescription [...] increased discomfort related to nerves. 3Seeing [place] [facility] and sleep. Given a trial of Tegretol 200 mg upto 2 tablets twice a day andadvised to continue with Lyrica 300 mg twice a day. Had some improvement of the facial pain with this regimen. 4Seeing [place] [facility] and asleep. On 09/11/2018 started on [...]
--- OUTSIDE RECORDS SUMMARY | 2023-11-02 08:34 | XMS_ITS | Continuity of Care Document ---
Author Organization [facility] ter Address [address] [place] [id number] Care Team Providers Care Director Metabolism Name Role Phone Dayo Castano MD Primary Care Physician [phone] Encounter [facility] Date(s): 10/26/23 - 10/31/[address] [id number]- Encounter Diagnosis Hematuria(Final) - 10/26/23 Sepsis(Final) - 10/26/23 Discharge Disposition: A-D/C Home Attending Physician: Nilson PRATHER, Yomi Admitting Physician: Escobar PRATHER, Bradley Referring Physician: Not on Staff, Referring MD Allergies, Adverse Reactions, Alerts Substance Reaction [...] influenza virus vaccine, inactivated 04/16/15 Give n [id number] 12y+ bivalent booster vax 02/21/23 Given SARS-CoV-2 (COVID-19) mRNA BNT-162b2 vac 1 06/01/21 Given SARS-CoV-2 (COVID-19) mRNA BNT-162b2 vac 11/07/20 Recorded SARS-CoV-2 (COVID-19) mRNA BNT-162b2 vac 10/17/20 Recorded zoster vaccine, inactivated 06/18/19 Recorded zoster vaccine, inactivated 06/17/19 Recorded zoster vaccine, inactivated 11/25/17 Recorded Influenza Vaccine (oldterm) 02/17/17 Recorded pneumococcal 23-valent vaccine 02/16/16 Given tetanus/diphtheria/pertussis, acel(Tdap) 11/25/14 Given 1Result Comment: DILUENT LOT#: [id number] EXP: 11/2022 MFG: FRESENSIUS Medications amitriptyline 100 mg oral tablet 1 tablet = 100 mg, By Mouth, Daily at bedtime, Rx'd by neurology ([facility]), # 30 tablet, 0 Refills, Maintenance, 12/08/22 15:04:00 EDT, Tablet, Partial fill upon patient request if the prescription is for a schedule II opioid drug. Start Date: 12/08/22 Status: Ordered Aquaphor Healing for Baby topical ointment 1 application, Topically, 2 times a day, PRN as needed for dry skin, # 90 Gm, 0 Refills, Maintenance, 05/05/23 9:12:00 EST, Ointment, [facility]/pharmacy #[id number], Partial fill upon patient request if the [...] Need length 99 months Please send to [facility], 01/21/21 13:20:00 EDT, Supply [...] 11/13/23 11:16:00 EDT, 10/31/23 11:14:00 EDT, Solution, [facility]/pharmacy #[id number], Partial fill upon [...] Refills, Maintenance, 08/07/23 14:34:00 EST, REC Powder, [facility]/pharmacy #[id number], Partial fill upon patient request if the prescription is for a schedule II opioid drug., 183,... Start Date: 08/07/23 Status: Ordered metFORMIN 500 mg oral tablet 2 tablet, By Mouth, 2 times a day, FOR DIABETES., # 360 tablet, 3 Refills, Maintenance, 09/25/23 15:02:00 EDT, [id number], 183, cm, 08/22/23 13:24:00 EST, Height, 123.2, [...] 183... Start Date: 04/04/23 Status: Ordered valsartan 160 mg oral tablet 320 mg, Tablet, By Mouth, 10/31/23 9:00:00 EDT Start Date: 10/31/23 Stop Date: 10/31/23 Status: Completed valsartan 320 mg oral tablet TAKE 1 [...] 0 Refills, Maintenance, 10/31/23 11:16:00 EDT, Tablet, [facility]/pharmacy #[id number], Partial fill upon patient request if the [...] provided increased discomfort related to nerves. 3Seeing [facility] and sleep. Given a trial of Tegretol 200 mg upto 2 tablets twice a day andadvised to continue with Lyrica 300 mg twice a day. Had some improvement of the facial pain with this regimen. 4Simvastatin 40 mg d/sedrick. Results Radiology Reports * Exam Date Time Procedure Performing Provider Status 10/28/23 10:15 AM MRI Abdomen W+W/O Contrast Do , Prem; Auth (Verified) Notes: (MRI Abdomen W+W/O Contrast) Reason For Exam: renal lesion on CT, microscopic hematuria;Mass RESULT: MRI Abdomen W+W/O Contrast MRI Abdomen W+W/O Contrast CLINICAL INDICATION: Reason: Mass; renal lesion on CT, microscopic hematuria; Order Comment: Pleasesee Reference Text for complete list of contraindications TECHNIQUE: Multiplanar, multisequence pre and post contrast MRI evaluation of the abdomen was performed. 20 cc of Clariscan was administered intravenously. COMPARISON: CT of the abdomen and pelvis dated October 26, 2023. FINDINGS: LOWER THORAX: Trace bilateral pleural effusions. No pericardial effusion. LIVER: Normal contour and size. Normal parenchymal enhancement. No suspicious lesion. GALLBLADDER: Normal. No gallstones or wall thickening. BILE DUCTS: No biliary ductal dilatation. SPLEEN: Normal. PANCREAS: Normal. No pancreatic ductal dilatation. ADRENAL GLANDS: No nodules. KIDNEYS: No hydronephrosis. Kidneys enhance symmetrically. 2.4 x 2.3 x 2.2 cm partially exophytic left upper pole heterogenously mildly T2 hyperintense and T1 hypointense renal mass with heterogeneous predominantly peripheral postcontrast enhancement and similar distribution of restricted diffusivity, corresponding with the lesion on recent CT. This comes into close proximity with the undersurface of the left hemidiaphragm but otherwise does not contact the adjacent structures or the renal sinus fat. Several T2 hyperintense T1 hypointense nonenhancing simple cysts are noted in the right kidney. STOMACH/UPPER GI TRACT: Stomach and visualized abdominal bowel normal in caliber. PERITONEUM AND RETROPERITONEUM: No loculated fluid collection or peritoneal mass. LYMPH NODES: No lymphadenopathy. VESSELS: Abdominal aorta is nonaneurysmal. Hepatic, portal and splenic veins patent. Visualized inferior vena cava unremarkable. ABDOMINAL WALL: Unremarkable. BONES: Moderate degenerative changes throughout the spine. IMPRESSION: 1. 2.4 cm enhancing left upper pole renal mass, suspicious for clear cell renal cell carcinoma. Urology consultation is recommended for further management. 2. Trace bilateral pleural effusions. WSN: [id number] Ordering Physician: Deepthi Williamson Dictated By: Clay Jackson MD Dictated Date/Time: 10/28/23 11:54 a Reviewed By: Clay Jackson MD Signed By: Clay Jackson MD Signed Date/Time: 10/28/23 11:54 am Transcribed By: SHIELA Transcribed Date/Time: 10/28/23 11:19 am * Exam Date Time Procedure Performing Provider Status 5/9/24 5:[address] Abd/Pelvis W/ IV Contrast Only Jean Paul Curtis; Auth (Verified) Notes: (CT Abd/Pelvis W/ IV Contrast Only) Reason For Exam: new dysuria with hematuria, ?L renal hemorrhagic cyst on last CTAP;Other: RESULT: CT Abd/Pelvis W/ IV Contrast Only CT Abd/Pelvis W/ IV Contrast Only Reason: Other:; new dysuria with hematuria, ?L renal hemorrhagic cyst on last CTAP; Clinical Question(s): Hemorrhage Hematoma; Order Comment: TECHNIQUE: Spiral CT through the abdomen and pelvis with IV contrast formatted in 3 planes. 100 cc of Omnipaque 300 was administered intravenously. This study was performed without oral contrast. Weight-based protocol using automatic tube modulation was used to optimize exposure parameters. CTDIvol Body: 20.40 mGy, DLP Body: 1289 mGy*cm. COMPARISON: CT abdomen pelvis 10/21/2023. FINDINGS: Hotbed Operator View Findings, Lines and Tubes: Partially visualized left hip prosthesis. Visualized Chest: Small bilateral pleural effusions with adjacent atelectasis. The heart is normal in size. No pericardial effusion. Diaphragm: Normal. Liver: Normal. Gallbladder: No CT evidence of gallbladder pathology. Bile ducts: No biliary ductal dilation. Spleen: Normal. Pancreas: Normal. Adrenal glands: Unchanged thickening of bilateral adrenal glands without discrete nodularity. Kidneys and ureters: No hydronephrosis or stones. Again seen is an indeterminate 1.5 x 1.7 cm lesion in left upper pole. Simple appearing renal cysts and hypodensities that are too small to characterize are noted, requiring no dedicated follow up. Bladder: Small amount of air within the nondependent portion of the bladder (image 119 of series 301). There is no significant bladder wall thickening or inflammatory changes. Reproductive organs: Unremarkable. Stomach, small bowel, and large bowel: No evidence of bowel obstruction or focal inflammation. Large stool ball within the rectum. Appendix: Normal. Peritoneum and retroperitoneum: No ascites or pneumoperitoneum. No omental or mesenteric lesions. Lymph nodes: No enlarged lymph nodes. Blood vessels: Moderate atherosclerotic vascular calcification. No aortic aneurysm. No evidence of venous thrombosis. Abdominal and pelvic wall: Calcification in the subcutaneous tissue of the left gluteal region. Bones: No acute abnormality. Left hip prosthesis. Multilevel degenerative changes of the visualizedspine. Sclerotic endplate changes at L2-L3 with vacuum phenomenon. IMPRESSION: Indeterminate 1.7 cm lesion in the upper pole left kidney. Can consider contrast enhanced MRI for further characterization. Large stool ball within the rectum, which can be suggestive of constipation. Small amount of air within the nondependent portion of the bladder. The bladder demonstrates no inflammatory changes or wall thickening. This is likely related to recent instrumentation. Please correlate clinically I have personally reviewed the images and I agree with this report. WSN: [id number] Ordering Physician: Shawn Romero Dictated By: Heydi Gilliland DO Dictated Date/Time: 10/26/23 6:34 pm Reviewed By: Michael Martines MD Signed By: Michael Martines MD Signed Date/Time: 10/26/23 6:39 pm Transcribed By: SHIELA Transcribed Date/Time: 10/26/23 6:22 pm * Exam Date Time Procedure Performing Provider Status 10/26/23 11:53 AM Chest 2 Views Frontal and Lat Darek Forrest; Auth (Verified) Notes: (Chest 2 Views Frontal and Lat) Reason For Exam: Shortness of Breath, Fever;Other: RESULT: Chest 2 Views Frontal and Lat Chest 2 Views Frontal and Lat Hx of Present Illness: came in from a SNF for evaluation for lethargy,feeling unwell, denies any pain; Reason: Other:; Shortness of Breath, Fever; Clinical Question(s): Pneumonia COMPARISON: None. FINDINGS: LINES AND TUBES: None. LUNGS AND PLEURA: Low lung volumes with mild basilar atelectasis. Lungs are otherwise clear with no consolidation. No pleural effusion. No pneumothorax. HEART, MEDIASTINUM AND MARTI: Heart is normal in size. Normal mediastinal and hilar contour. BONES AND SOFT TISSUES: No acute abnormality. IMPRESSION: No acute abnormality. WSN: [id number] Ordering Physician: Shawn Romero Dictated By: Samir Aaron MD Dictated Date/Time: 10/26/23 11:56 a Reviewed By: Samir Aaron MD Signed By: Samir Aaron MD Signed Date/Time: 10/26/23 11:56 am Transcribed By: SHIELA Transcribed Date/Time: 10/26/23 11:56 am Vital Signs Most recent to oldest [Reference Range]: 1 2 3 Oxygen Saturation [94-100 %] 100 % (10/31/23 7:44 AM) 97 % (10/30/23 7:00 PM) 99 % (10/30/23 3:26 PM) Pulse Rate [55-90 bpm] 113 bpm *H* (10/31/23 7:44 AM) 116 bpm *H* (10/30/23 7:00 PM) 116 bpm *H* (10/30/23 3:26 PM) Blood Pressure [90-138/55-84 mm Hg] 111/57mm Hg (10/31/23 7:51 AM) 111/57mm Hg (10/31/23 7:44 AM) 101/64mm Hg (10/30/23 7:00 PM) Respiratory Rate [16-30 br/min] 18 br/min (10/31/23 7:44 AM) 18 br/min (10/30/23 7:00 PM) 18 br/min (10/30/23 3:26 PM) Temperature [96.8-100.4 DegF] 98.1 DegF (10/31/23 7:44 AM) 98.4 DegF (10/30/23 7:00 PM) 98.1 DegF (10/30/23 7:08 AM) Liters per Minute 2 L/min (10/26/23 4:54 PM) 2 L/min (10/26/23 2:27 PM) 2 L/min (10/26/23 12:43 PM) Mode of Delivery (Oxygen) Room air (10/31/23 7:44 AM) Room air (10/30/23 7:00 PM) Room air (10/30/23 3:26 PM) Blood pressure sites Arm, right (10/31/23 7:44 AM) Arm, right (10/30/23 7:00 PM) Arm, left (10/30/23 3:26 PM) Temperature Route Oral (10/31/23 7:44 AM) Oral (10/30/23 7:00 PM) Oral (10/30/23 7:08 AM) Social History Social History Type Response Smoking Status 5-9 cigarettes (betw een 1/4 to 1/2 pack)/day in last 30 days entered on: 12/27/21 Sex History and physical note * Clay DO, Linie S: PERFORM, MODIFY, MODIFY, MODIFY, MODIFY, MODIFY Event Display: History and Physical Hospital Authored Date: [id number] Patient: ??MATT LERMA ? Age:??63 Years?Sex:??Male?:??1960?? Chief Complaint/Reason for Consultation coming from [facility], EMS was called due to lethargy, feeling unwell . History of Present Illness This is a 63-year-old male with past medical history including Parkinson's disease, diabetes mellitus type 2, hypertension, pruritic dermatitis, and history of left total hip replacement, who currently presents to the hospital with generalized weakness.?? The patient was recently hospitalized here from October 20 -October 25, 2023 when he was admitted with septic shock due to cellulitis, and also found to have left lower extremity peroneal vein DVT with rhabdomyolysis and BHAARTI; he was admitted to the ICU on??pressor support??and intubated??and eventually??improved and??was subsequently discharged to rehab??yesterday (October 24).he now presents back from the rehab with weakness.?? The patient states that he noted pain in his bilateral legs when he stood,??making it difficult for him to??bear weight. ??Healso reports feeling generally unwell with no specific complaints such as chest pain, shortness of breath, abdominal pain, nausea or vomiting, or any dysuria.?? He was found on lab work here to have a white count of 19.2 with a hemoglobin of 12.7 which is stable from recent labs, and platelet countof 222.?? Other labs showed a hemolyzed potassium, sodium of 135, low bicarb at 21, normal kidney function, glucose of 117.?? Total protein and albumin were low, and LFTs were normal except for elevated ALT of 62 and AST which was normal at 40 with total bili of 0.3.?? Lactate was 2.1.?? UA showed t race albumin, 4+ glucose, 3+ hemoglobin, 1 WBC, greater than 182 RBCs, and slight bacteria.?? The patient did undergo a chest x-ray in the ED that showed no acute abnormality.?? He also had CT scan of the abdomen and pelvis done which showed indeterminant 1.7 cm lesion in the upper pole of the leftkidney for which contrast-enhanced MRI can be considered for further characterization.?? There was also a large stool ball noted in the rectum which can be suggestive of constipation, and small amount of air in the nondependent portion of the bladder which is likely related to recent instrumentation.?? The patient was given 1 dose of ceftriaxone in the ED and is admitted for further management. Review of Systems A complete review of systems was obtained and noted to be negative except as stated above in the HPI. Objective ? Vital Signs?? Temperature: 98.5 DegF (10/26/23 18:03:00) Temperature Route: Oral (10/26/23 18:03:00) Pulse Rate: 86 bpm (10/26/23 18:03:00) Respiratory Rate: 18 br/min (10/26/23 18:03:00) Systolic Blood Pressure:??146 mm Hg??High (10/26/23 18:03:00) Diastolic Blood Pressure: 81 mm Hg (10/26/23 18:03:00) Blood pressure sites: Arm, left (10/26/23 18:03:00) Mean Arterial Pressure: 103 mm Hg (10/26/23 18:03:00) Pulse Pressure: 65 mm Hg (10/26/23 18:03:00) Oxygen Saturation: 99 % (10/26/23 18:03:00) Liters per Minute: 2 L/min (10/26/23 16:54:00) Mode of Delivery (Oxygen): Room air (10/26/23 18:03:00) Early Warning Score: 4 (10/26/23 18:08:01) ? Physical Exam General: Alert, in no acute cardiopulmonary distress. Mental Status: Oriented to person, place and time. Normal affect. Head: Normocephalic. Eyes: Pupils are equal, round and reactive to light. Extraocular muscles intact. Ear, Nose and Throat: Oropharynx clear, mucous membranes moist. Ears and nose without masses, lesions or deformities. Trachea midline. Neck: Supple, Full range of motion. Respiratory: Clear to auscultation and percussion. No wheezing, rales or rhonchi. Cardiovascular: Heart sounds normal. Regular rate and rhythm, no murmurs, rubs or gallops. Gastrointestinal: Abdomen soft, non-tender, non-distended. Normal bowel sounds. No pulsatile mass. No hepatosplenomegaly. Neurologic: Cranial nerves II-XII grossly intact. No focal neurological deficits. Moves all extremities spontaneously. Sensation intact bilaterally. Skin: No rashes or lesions. ??Small area of erythema on the medial??dorsal??aspect??of the right foot without increased??warmth.?? Left greater than right ankle edema. Musculoskeletal: No cyanosis or clubbing. No gross deformities. Normal range of motion. Assessment/Plan Assessment:??This is a 63-year-old male with past medical history as noted above, who currently presents to the hospital from his rehab facility with complaint of weakness. He was noted here to have evidence of microscopic hematuria and CT imaging suggested an abnormality in the upper pole of the left kidney with a 1.7 cm lesion for which contrast-enhanced MRI could be obtained for further characterization. He is now admitted for further management. ?? Leukocytosis (D72.829)?? ? Sepsis (A41.9)?? Weakness (R53.1) This patient will be admitted to an observation medical bed. He presents with weakness and leg painand was found here to have a leukocytosis with evidence of left shift. His UA showed RBCs, but only1 WBC, so unlikely that he has UTI. Chest x-ray did not demonstrate any evidence of pneumonia. Blood cultures were obtained in the ED and we will follow for any growth. We will hold off on additionalantibiotics presently as we do not have a clear source of infection.??Of note, he was treated for cellulitis??of his feet??on recent hospitalization??and was discharged yesterday on Augmentin??for anadditional 6 days, which we will continue.?He is noted to have some dorsal medial??erythema on his right foot??without??significant increased warmth??and we will continue to monitor this area. ??Given patient's complaint of weakness and recent history of rhabdomyolysis, we will??add on a CPK to make sure it is not significantly elevated.? Hematuria (R31.9) Renal lesion (N28.9) Patient noted to have evidence of microscopic hematuria on his urinalysis. CT scan of the abdomen and pelvis also showed evidence of abnormality in the upper pole of the left presents kidney. We willproceed with contrast-enhanced MRI for further evaluation at this lesion. ?? Abnormal EKG (R94.31) Patient's EKG today showing evidence of pacemaker spikes, but he does not have a history of pacemaker. Chest x-ray does not show this either. Will plan on repeating an EKG in the morning. ?? Deep vein thrombosis (DVT) of left lower extremity (I82.402) Patient was found on October 23 evidence of nonocclusive thrombus of one of the paired peroneal veins, popliteal vein, distal femoral vein. He was treated with Lovenox and Coumadin and discharged with this with goal INR of 2-3. INR obtained today noted to be 1.0. Will continue patient on therapeutic Lovenox and keep him on Coumadin and await increase of INR to goal range before discontinuing Lovenox. ?? Parkinson's disease (G20.A1): Will continue patient on home Sinemet. ?? Anxiety and depression (F41.9) Patient on Abilify and escitalopram which will be continued. ?? Type II diabetes mellitus (E11.9) Patient not on any chronic medication for this??other than metformin, which we will hold presently.We will follow POC's and cover with sliding scale insulin coverage as needed. Most recent hemoglobin A1c was 6.4 in June 2023 ?? VTE Prophylaxis As above, patient on Lovenox??and Coumadin. ?? Code Status Confirmed with the patient that he is a full code. ?? Patient seen on October 26, 2023.?? Total time spent with patient and in coordination of care: including reviewing the chart/medical records, speaking with the patient, formulating and discussing the treatment plan, and documenting the findings and encounter: ??70 + min ?? Histories Allergies Allergies ?(Active and Proposed Allergies Only) gabapentin? (Severity: Unknown severity, Onset: Unknown) traZODone? (Severity: Unknown severity, Onset: Unknown) SEROquel? (Severity: Unknown severity, Onset: Unknown) hydrOXYzine hydrochloride? (Severity: Unknown severity, Onset: Unknown) Lantus? (Severity: Unknown severity, Onset: Unknown) Ventolin HFA? (Severity: Unknown severity, Onset: Unknown) Flovent HFA? (Severity: Unknown severity, Onset: Unknown) ZyrTEC? (Severity: Unknown severity, Onset: Unknown) penicillin? (Severity: Unknown, Onset: Unknown) ? Past Medical History/Problem List Active Problems(33) Atypical facial pain, left Bilateral arm pain Bilateral edema of lower extremity Bilateral lumbar radiculopathy Constipation Diastolic dysfunction DM (diabetes mellitus), type 2 with neurological complications Dyslipidemia Generalized anxiety disorder with panic attacks Hearing impairment History of left hip replacement HTN (hypertension) Insomnia Knee pain, bilateral Left elbow pain Lumbar herniated disc Lumbosacral radiculopathy Lumbosacral spondylosis without myelopathy Memory impairment of gradual onset Myofascial pain Obese class I Obesity (BMI 30-39.9) KERMIT (obstructive sleep apnea): bipap 2 liters oxygen Osteoarthritis of both knees Parkinson disease Peripheral sensory neuropathy Persistent moderate somatic symptom disorder with predominant pain Polyp of colon, adenomatous Pruritic dermatitis Recurrent major depression Sciatica Simvastatin-induced rhabdomyolysis-CPK remain elevated Spinal stenosis of lumbar region ? Past Surgical History Left total hip arthroplasty??January 2022 ? Social History Currently at a rehab facility. ??Previously living with his brother. Alcohol Details:??Use: Never. Substance Abuse Details:??Use: Never. ??IV drug use: No. Tobacco Details:??Use: 1-1/2 packs a day??teenage years??and just quit??9 days ago. Electronic Cigarette/Vaping Details:??Electronic Cigarette Use: Never. ?? Family Medical History Mother at 62 with cancer. ??Father at 62, also with cancer. Medications Home Medications??(based on??discharge med??list from??May??) Acetaminophen (Tylenol Extra Strength 500 mg oral tablet)?2?tab(s)?1,000?Milligram?By Mouth?3 times a day?as needed?as needed for pain Albuterol (Ventolin HFA 108 mcg/inh inhalation aerosol with adapter)?1?puff(s)?Inhalation?4 times a day?as needed?for wheezing amiTRIPTYLINE (amitriptyline 100 mg oral tablet)?1?tab(s)?100?Milligram?By Mouth?Daily at bedtime?Rx'd by neurology ([facility]) Amoxicillin-Clavulanate (Augmentin 875 Tablet)?1?tablet?By Mouth?2 times a day?for 6?Days Aripiprazole (ARIPiprazole 5 mg oral tablet)?5?Milligram?1?tablet?By Mouth?Daily Aspirin (Aspirin Low Dose 81 mg oral delayed release tablet)?1?tab(s)?81?Milligram?By Mouth?Daily Atorvastatin (atorvastatin 20 mg oral tablet)?1?tab(s)?20?Milligram?By Mouth?Daily Budesonide-Formoterol (budesonide-formoterol 160 mcg-4.5 mcg/inh inhalation aerosol with adapter)?INHALE 2 PUFFS TWICE A DAY Carbidopa-Levodopa (carbidopa-levodopa 25 mg-100 mg oral tablet)?TAKE 1 TAB ORALLY 2 TIMES A DAYFOR 30 DAYS TAKE W/ A CRACKER 30 MINUTES BEFORE BREAKFAST AND LUNCH, Chlorthalidone (chlorthalidone 25 mg oral tablet)?TAKE 1 TABLET BY MOUTH EVERY MORNING INSTR:BLOOD PRESSURE Clonazepam (clonazePAM 1 mg oral tablet)?1?tab(s)?1?Milligram?By Mouth?2 times a day?Rx'd by [facility] Cyanocobalamin (Vitamin B-12 1000 mcg oral tablet)?1,000?Microgram?1?tablet?By Mouth?Daily Diclofenac Topical (diclofenac 1% topical gel)?See Instructions?APPLY TOPICALLY TO AFFECTED ARE TWICE A DAY NEEDED FOR PAIN Doxycycline (Doxycycline Tablet)?100?Milligram?By Mouth?Every 12 hours?for 6?Days Emollients, Topical (Aquaphor Healing for Baby topical ointment)?1?zenia?Topically?2 times a day?as needed?as needed for dry skin Enoxaparin?0.8?Milliliter?80?Milligram?Subcutaneous Injection?Every 12 hours Escitalopram (escitalopram 20 mg oral tablet)?1?tab(s)?20?Milligram?By Mouth?Daily Metformin (metFORMIN 500 mg oral tablet)?2?tab(s)?By Mouth?2 times a day?FOR DIABETES. Omeprazole (omeprazole 20 mg oral enteric coated capsule)?1?capsule?20?Milligram?By Mouth?Daily Pregabalin (pregabalin 300 mg oral capsule)?1?capsule?300?Milligram?By Mouth?2 times a day?Rx'd by neurology at [facility] Primidone (primidone 50 mg oral tablet)?50?Milligram?By Mouth?3 times a day Psyllium (Metamucil 3.4 gm/5.2 gm oral powder for reconstitution)?3.4?gram?By Mouth?3 times a day?as needed?as needed for constipation Ropinirole (rOPINIRole 0.25 mg oral tablet)?See Instructions?4 tablet By Mouth 4 times a day Tizanidine (tiZANidine 4 mg oral tablet)?TAKE 1 TABLET BY MOUTH EVERY 8 HOURS NEEDED Valsartan (valsartan 320 mg oral tablet)?TAKE 1 TABLET BY MOUTH EVERY DAY Warfarin (warfarin 5 mg oral tablet)?5?Milligram?By Mouth?Daily ? Results Recent Labs BLOOD COUNT & DIFF WBC 19.2 k/mm3 (High)?? 10/26/2023 10:43 RBC 4.12 m/mm3 (Low)?? 10/26/2023 10:43 Hgb 12.7 Gm/dL (Low)?? 10/26/2023 10:43 Hct 37.7 % (Low)?? 10/26/2023 10:43 MCV 91.5 femtoliters ()?? 10/26/2023 10:43 MCH 30.8 pg ()?? 10/26/2023 10:43 MCHC 33.7 g/dL ()?? 10/26/2023 10:43 Platelet Count 222 k/mm3 ()?? 10/26/2023 10:43 RDW-SD 45.5 femtoliters ()?? 10/26/2023 10:43 MPV 10.6 femtoliters ()?? 10/26/2023 10:43 Nucleated RBC (Automated) 0.0 #/100 WBC'S ()?? 10/26/2023 10:43 Abs. NRBC 0.0 k/mm3 ()?? 10/26/2023 10:43 Abs. Neut 15.5 k/mm3 (High)?? 10/26/2023 10:43 Abs. Lymph 1.5 k/mm3 ()?? 10/26/2023 10:43 Abs. [place] 1.5 k/mm3 (High)?? 10/26/2023 10:43 Abs. Eo 0.1 k/mm3 ()?? 10/26/2023 10:43 Abs. Baso 0.1 k/mm3 ()?? 10/26/2023 10:43 Neut % 80.5 % (High)?? 10/26/2023 10:43 Lymph % 7.7 % (Low)?? 10/26/2023 10:43 [place] % 7.7 % ()?? 10/26/2023 10:43 Eos % 0.6 % ()?? 10/26/2023 10:43 Baso % 0.3 % ()?? 10/26/2023 10:43 Imm Gran 3.2 % ()?? 10/26/2023 10:43 Abs. Imm Gran 0.6 k/mm3 ()?? 10/26/2023 10:43 ?? CHEM GENERAL Sodium 135 mmol/L ()?? 10/26/2023 10:43 Potassium HEMOLYZED mmol/L ()?? 10/26/2023 10:43 Chloride 100 mmol/L ()?? 10/26/2023 10:43 Bicarbonate Level 21 mmol/L (Low)?? 10/26/2023 10:43 Anion Gap 14 ()?? 10/26/2023 10:43 Glucose Level 117 mg/dL (High)?? 10/26/2023 10:43 Glucose, POC 90 mg/dL ()?? 10/26/2023 18:05 BUN 14 mg/dL ()?? 10/26/2023 10:43 Creatinine-Blood 0.83 mg/dL ()?? 10/26/2023 10:43 Estimated GFR Creatinine 99 ML/MIN/1.73 M2 ()?? 10/26/2023 10:43 Calcium 8.4 mg/dL (Low)?? 10/26/2023 10:43 Protein, Total 5.5 Gm/dL (Low)?? 10/26/2023 10:43 Albumin 3.2 Gm/dL (Low)?? 10/26/2023 10:43 AG Ratio 1.4 ()?? 10/26/2023 10:43 Alkaline Phosphatase 66 units/L ()?? 10/26/2023 10:43 AST (SGOT) 40 units/L ()?? 10/26/2023 10:43 ALT (SGPT) 62 units/L (High)?? 10/26/2023 10:43 Bilirubin, Total 0.3 mg/dL ()?? 10/26/2023 10:43 Lactate 2.1 mmol/L ()?? 10/26/2023 10:43 ?? COAG INR 1.0 ()?? 10/26/2023 12:25 Protime (PT) 10.9 seconds ()?? 10/26/2023 12:25 ?? MISC. CHEMISTRY Hold Gel Top SPECIMEN DISCARDED AFTER 1 WEEK ()?? 10/25/2023 00:55 ?? UA/URINALYSIS Appear/Color, Urine LIGHT YELLOW ()?? 10/26/2023 10:46 Specific Arjay, Urine 1.013 ()?? 10/26/2023 10:46 pH, Urine 7.5 ()?? 10/26/2023 10:46 Albumin, Urine TRACE (Abnormal)?? 10/26/2023 10:46 Glucose, Urine 4+ (Abnormal)?? 10/26/2023 10:46 Ketones, Urine NEGATIVE ()?? 10/26/2023 10:46 Bilirubin, Urine NEGATIVE ()?? 10/26/2023 10:46 Hemoglobin, Urine 3+ (Abnormal)?? 10/26/2023 10:46 Nitrite, Urine NEGATIVE ()?? 10/26/2023 10:46 Leukocyte, Urine NEGATIVE ()?? 10/26/2023 10:46 Urobilinogen NORMAL mg/dL ()?? 10/26/2023 10:46 WBC's, Urine 1 /HPF ()?? 10/26/2023 10:46 RBC's, Urine >182 /HPF (High)?? 10/26/2023 10:46 Squamous Epith <1 /HPF ()?? 10/26/2023 10:46 Mucus SLIGHT /LPF ()?? 10/26/2023 10:46 Hold Urine Culture Testing available 48 hours from time of collection. ()?? 10/26/2023 10:46 ? Imaging(s) ?Other Image ?EKG showing atrial sensed ventricular paced rhythm with a heart rate of 90. ?(10/26/2023 11:53 EDT Chest 2 Views Frontal and Lat) IMPRESSION: ?? No acute abnormality. ?? [1] ?? (10/26/2023 17:[address] Abd/Pelvis W/ IV Contrast Only) IMPRESSION:? Indeterminate 1.7 cm lesion in the upper pole left kidney. Can consider contrast enhanced MRI for further characterization. ?? Large stool ball within the rectum, which can be suggestive of constipation. ?? Small amount of air within the nondependent portion of the bladder. The bladder demonstrates no inflammatory changes or wall thickening. This is likely related to recent instrumentation. Please correlate clinically [2] [1]??Chest 2 Views Frontal and Lat; Agnieszka PRAHTER, Samir Oliva 10/26/2023 11:53 EDT [2]??CT Abd/Pelvis W/ IV Contrast Only; Conrad PRATHER, Michael Billings 10/26/2023 17:41 EDT EKG study * Event Display: ECG 12-Lead Authored Date: Please click on pdf link to open report * Event Display: ECG 12-Lead Authored Date: Ventricular Rate: 90 BPM Atrial Rate: 90 BPM P-R Interval: 184 ms QRS Duration: 102 ms Q-T Interval: 358 ms QTC Calculation(Bazett): 437 ms P [place]: 46 degrees R [place]: -59 degrees T [place]: 33 degrees Atrial-sensed ventricular-paced rhythm Abnormal ECG When compared with ECG of 21-DEC-2021 09:29, Electronic ventricular pacemaker has replaced Sinus rhythm Confirmed by Silvio Wyatt ([id number]) on 10/26/2023 11:46:16 AM [place]: [facility] * Inbox , Coumadin: REVIEW Inbox , Coumadin: REVIEW, SIGN, VERIFY, SIGN Event Display: Progress Note Hospital Authored Date: [id number] Patient: MATT LERMA Age: 63 years Sex: Male : 1960 Associated Diagnoses: None Author: Nilson PRATHER, Yomi Indication for Treatment Ventricular Thrombus Expected Duration of Therapy 3 months Target Range for INR 2.0-3.0 Discharge Status Discharged home with VNA Name of VNA and phone number [facility] Discharged Dosing Instructions Enoxaparin (Lovenox) 80 * Wilbert Montero RN: VERIFY, MODIFY, PERFORM, MODIFY, SIGN Event Display: Progress Note Hospital Authored Date: [id number] Patient: MATT LERMA Age: 63 years Sex: Male : 1960 Associated Diagnoses: None Author: Wilbert Montero RN Findings Problem Related to Alteration in Integumentary : Alteration in Integumentary/new 10/31/2023 8:00 EDT Alteration in Integumentary Related to Other: multiple wounds Goals & Outcomes, Integumentary Nutritional intake is adequate for metabolic needs, Pt will maintain adequate fluid & nutritional balance, Pt will maintain intact skin integrity Interventions, Integumentary Consult Wound Care as needed for further interventions, Encourage & assist pt to change position frequently, Encourage & assist with range of motion exercises, Keep bed as flat as tolerated to reduce shearing, Keep linen clean, dry and wrinkle free, Keep skin clean & dry, Minimize friction, shear and moisture, Monitor reddened areas for continued or increasing reddness, Record extent of impaired skin integrity, Relieve pressure off bony areas, Repositionpt off reddened areas BH Goals/Interventions, Integumentary Yes Integumentary, Problem Start 10/29/2023 23:17 Reviewed plan with, Integumentary Patient Patient Progression, Integumentary Pt progressing according to plan . Narrative/Incidental Alert/orientedx3, not on distress, on room air, continent both, on cardiac diet with dry wound (scab) at both heels, and wound at sacrococcygeal covered with Mepilex, edema both feet. With IV cannulaat left hand, chairfast. Medicated as prescribed, call light within reach, bed in lowest position, bed wheels locked. Patient had shower, wound care rendered, applied Triad and Mepilex at both buttocks. PAtient removed his IV cannula. Discharge orders carried out, instruction given to the patient and understood, signed by the patient and belongings form too. Left the unit with his brother per wheelchair at stable condition.. * Maureen Olivera LPN: PERFORM, SIGN, VERIFY Event Display: Progress Note Hospital Authored Date: Patient: MATT LERMA Age: 63 years Sex: Male : 1960 Associated Diagnoses: None Author: Maureen Olivera LPN Findings Problem Related to Alteration in Integumentary : Alteration in Integumentary/new 10/31/2023 1:00 EDT Alteration in Integumentary Related to Other: multiple wounds Goals & Outcomes, Integumentary Nutritional intake is adequate for metabolic needs, Pt will maintain adequate fluid & nutritional balance, Pt will maintain intact skin integrity Interventions, Integumentary Cleanse all wounds with Normal Saline, Encourage & assist pt to change position frequently BH Goals/Interventions, Integumentary Yes Integumentary, Problem Start 10/29/2023 23:17 Reviewed plan with, Integumentary Patient Patient Progression, Integumentary Pt progressing according to plan . Narrative/Incidental Patient A&Ox4 No SOB noted. No N/V noted. RAC patent flushes well. Denies burning with urination. No s/s of hypo/hyperglycemia noted BS 208 Patient on C- pap use at HS. Denies pain/discomfort. Safety maintained bed at the lowest position, hourly rounds done, call diaz within reach.. Consult note * Tonya Carrera RN: VERIFY, PERFORM, SIGN Event Display: Consultation Note Authored Date: Patient: MTAT LERMA Age: 63 years Sex: Male : 1960 Associated Diagnoses: None Author: Tonya Carrera RN Sacrococcygeal 10/23 Sacrococcygeal 10/29 bilateral heels History of Presenting Problem Reason for referral Wound: Description Location- Sacrococcygeal Etiology- Unstageable Pressure Injury Present on Admission Measurements- 7.0 cm x 7.5 cm x 0.3 cm Wound Bed- full thickness skin loss with thick yellow slough concentrated over the center of the wound, left buttock with linear skin loss Libby Wound- intact Edges- defined Drainage- moist, no active drainage Odor- none No fluctuance or induration Goals- offloading, enhanced autolytic debridement of slough, moist wound healing . Wound: Description Location- Bilateral Heels Etiology- Fissures Wound Bed- multiple linear cracks with dry, hard edges Libby Wound- dry, intact Edges- defined Drainage- none, dry Odor- none No fluctuance or induration Goals- donation of moisture, softening feet . Wound RN consult entered to assess coccyx, buttocks and bilat legs wounds and make topical recommendations. Patient was admitted for generalized weakness. Matt had a previous admission from 10/20 to 10/24 for septic shock and cellulitis. Matt was previously seen during prior admission, by my colleague Reza Liu on 10/23, please see her notes for details. I spoke with direct care RN who tells me that Matt can get from his wheelchair to bed independently for my assessment. Upon entering the room patient is sitting in his wheelchair with family member at bedside. Wound RN role explained and Matt is agreeable to assessment as well as photodocumentation. He is able to get from his wheelchair into the bed with minimal assistance. He tells me that his buttocks hurts. He is agreeable to have meremove his pants to allow for visualization of wound. He is noted to have soiled underwear which are sticking to the wound bed. I assessed the wound which is described in detail above. Matt tells me he has cream from the previous admission and produces a bottle of Triad. The wound was redressed with Triad and I offered to cover with a Mepilex however Matt tells me he does not want a top coverand asks that I assists with applying new pants and underwear. When redressed, Matt tells me thathe still has dry heels. His legs are intact with some dry skin to the right lateral ankle. His socks are removed to visualize his heels which are noted to have significant fissures. I shared recommendations for topical ointment. Direct care RN present at this time and I shared recommendations with her. Update provided to Dr. Devine. Recommendations: 1.) Buttocks: Cleanse with pH balanced cleanser. Pat dry. Apply Triad dressing thinly to open areas. Cover with Mepilex dressing. Change every other day and PRN for soilage. 2.) Bilateral Heels and Great Toes: Cleanse with warm soapy water. Pat dry. Apply Ammonium Lactate 12%. DO NOT APPLY BETWEEN TOES. Repeat every 12 hours. 3.) Continue use of specialty bed/low air loss mattress 4.) Turn and reposition every 2 hours and PRN 5.) Continue incontinence care as well as moisture management 6.) Continue to offload bony prominences 7.) Float heels 8.) Continue to provide optimal nutritional support 9.) Provide Gaymar cushion to chair when patient OOB Please reconsult wound care RNs for deterioration in wound/skin status Plan Time spent 31-45 minutes * Tracee [place], Gray Bradshaw: PERFORM Event Display: Consultation Note Authored Date: Patient: ??MATT LERMA ? Age:??63 Years?Sex:??Male?:??1960?? Chief Complaint/Reason for Consultation LT Renal Mass History of Present Illness LOS: 4 PCP: Dayo Castano MD Consulting Physician: Nilson??Yomi PRATHER Attending Physician: Juanito PRATHER,??[place] Reason For Consult: LT Renal Mass ?? This is a 63 year old male??Past medical history of Parkinson's, type 2 diabetes, hypertension seen in consult for a left renal mass.?? He was initially admitted for generalized weakness, and leukocytosis and was started on antibiotics.?? Recent hospitalization from October 20 to October 24 for septic shock due to cellulitis, DVT with rhabdomyolysis.?? CT abdomen pelvis on admission shows indeterminate 1.7 cm lesion in the upper pole of the left kidney.?? Follow-up MRI with and without contrast shows a 2.4 cm enhancing left upper pole renal mass.?? At the time of our exam his vital signs are stable.?? Creatinine 0.75.?? UA showed microscopic heme.?? He ultimately had no complaints of hematuria, dis charge, flank pain. Review of Systems Constitutional:??No weight loss, fever, chills, weakness or fatigue. Respiratory:??No shortness of breath, cough or sputum production. Cardiovascular:??No chest pain, chest pressure or chest discomfort. No palpitations or pedal edema. Gastrointestinal:??No anorexia, nausea, vomiting or diarrhea. No abdominal pain or blood in stool. Genitourinary:??No burning micturition, hematuria, discharge,??urinary frequency or incontinence. Neurologic:??No headache, dizziness, syncope, bladder sensation loss. Objective ? Vital Signs?? Temperature: 98.1 DegF (10/30/23 07:08:00) Temperature Route: Oral (10/30/23 07:08:00) Pulse Rate:??112 bpm??High (10/30/23 07:08:00) Respiratory Rate: 18 br/min (10/30/23 07:08:00) Systolic Blood Pressure: 108 mm Hg (10/30/23 07:41:00) Diastolic Blood Pressure: 63 mm Hg (10/30/23 07:41:00) Blood pressure sites: Arm, right (10/30/23 07:08:00) Mean Arterial Pressure: 78 mm Hg (10/30/23 07:08:00) Pulse Pressure: 45 mm Hg (10/30/23 07:08:00) Oxygen Saturation: 97 % (10/30/23 07:08:00) Mode of Delivery (Oxygen): Room air (10/30/23 07:08:00) Early Warning Score: 6 (10/30/23 07:55:31) ? Pain Scores?? No qualifying data available. ?? Intake/Output? 10/25 10:17 10/29 07:00 10/28 07:00 10/27 07:00 10/26 07:00 ?? 10/29 10:37 10/29 10:37 10/29 06:59 10/28 06:59 10/27 06:59 Intake ? 1860 ?0 ?920 ?840 ?0 Output ?650 ?0 ?0 ?0 ?650 Net Total ? 1210 ?0 ?920 ?840 ? -650 ? Urine Count ? 13 ?0 ?3 ?5 ?5 ? Basic ADLs Activity Assistance: Independent, Weight bearing, Standby assist (10/27/23) Ambulatory devices needed: None (10/27/23) Feeding Assistance: Independent (10/29/23) Hygiene: Self (10/29/23) Patient Effort Up to Chair: Weight bearing (10/27/23) ? Physical Exam Constitutional: Alert, in no distress. Mental Status: Oriented to person, place and time. Respiratory: Equal and unlabored respiratory effort. Gastrointestinal: Abdomen soft, non-tender, non-distended. Normal bowel sounds. No pulsatile mass. No hepatosplenomegaly. Genitourinary: No costovertebral angle tenderness. Assessment/Plan Renal lesion (N28.9):??This is a 63 year old male??Past medical history of Parkinson's, type 2 diabetes, hypertension seen in consult for a left renal mass. CT abdomen pelvis on admission shows indeterminate 1.7 cm lesion in the upper pole of the left kidney.??Follow-up MRI with and without contrast shows a 2.4 cm enhancing left upper pole renal mass. He had no other complaints. UA shows microscopic heme. We discussed these findings with the patient. He will ultimately need to follow up at [facility] for discussion with a surgeon. No inpatient intervention. A referral has been placed. Urology will sign off. ?? This patient was seen and examined with attending physician Dr. Solomon. Histories Allergies Allergies ?(Active and Proposed Allergies Only) gabapentin? (Severity: Unknown severity, Onset: Unknown) traZODone? (Severity: Unknown severity, Onset: Unknown) SEROquel? (Severity: Unknown severity, Onset: Unknown) hydrOXYzine hydrochloride? (Severity: Unknown severity, Onset: Unknown) Lantus? (Severity: Unknown severity, Onset: Unknown) Ventolin HFA? (Severity: Unknown severity, Onset: Unknown) Flovent HFA? (Severity: Unknown severity, Onset: Unknown) ZyrTEC? (Severity: Unknown severity, Onset: Unknown) penicillin? (Severity: Unknown, Onset: Unknown) ? Past Medical History/Problem List Active Problems(33) Atypical facial pain, left Bilateral arm pain Bilateral edema of lower extremity Bilateral lumbar radiculopathy Constipation Diastolic dysfunction DM (diabetes mellitus), type 2 with neurological complications Dyslipidemia Generalized anxiety disorder with panic attacks Hearing impairment History of left hip replacement HTN (hypertension) Insomnia Knee pain, bilateral Left elbow pain Lumbar herniated disc Lumbosacral radiculopathy Lumbosacral spondylosis without myelopathy Memory impairment of gradual onset Myofascial pain Obese class I Obesity (BMI 30-39.9) KERMIT (obstructive sleep apnea): bipap 2 liters oxygen Osteoarthritis of both knees Parkinson disease Peripheral sensory neuropathy Persistent moderate somatic symptom disorder with predominant pain Polyp of colon, adenomatous Pruritic dermatitis Recurrent major depression Sciatica Simvastatin-induced rhabdomyolysis-CPK remain elevated Spinal stenosis of lumbar region ? Past Surgical History Colonoscopy abnormal: 08/04/16 ? Social History Alcohol Details:??Use: Never. Employment/School Details:??Status: Employed. 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 Exercise Details:??Self assessment: Good condition. ??Exercise frequency: 3-4 times/week. Home/Environment Details:??Living situation: Home/Independent. ??Lives with: Spouse, Son and a Daugther. Nutrition/Health Details:??Diet: Calorie restricted. Sexual Details:??Sexually involved in last 6 months: Yes. ??Sexual orientation: Heterosexual. ??Other sexual concerns: Monogamous with for 25 years.. Substance Abuse Details:??Use: Never. ??IV drug use: No. Tobacco Details:??Use: 5-9 cigarettes (between 1/4 to 1/2 pack)/day in last 30 days. Details:??Use: 10 or more cigarettes (1/2 pack or more)/day in last 30 days. ??Interested in cessation: Yes. ??Other: 1ppd. Details:??Use: 5-9 cigarettes (between 1/4 to 1/2 pack)/day in last 30 days. ??Other: Quit in May 2019. Details:??Former smoker, Type: Cigarettes. ??Tobacco use times per day: 5 cig a day. 1ppd x 30 years. ??30 Number of years:. ??Total pack years: 30. Electronic Cigarette/Vaping Details:??Electronic Cigarette Use: Never. ? Family History Mother: CAD - Coronary artery disease; Diabetes mellitus type II; Sleep apnea Father??(): Cancer of colon; Diabetes mellitus type II Brother: Anxiety ? 03-MAR-2014 21:11:46<$>; Depression Brother: Anxiety ? 03-MAR-2014 21:11:46<$>; Depression ? Medications Home Medications Acetaminophen (Tylenol Extra Strength 500 mg oral tablet)?2?tab(s)?1,000?Milligram?By Mouth?3 times a day?as needed?as needed for pain Albuterol (Ventolin HFA 108 mcg/inh inhalation aerosol with adapter)?1?puff(s)?Inhalation?4 times a day?as needed?for wheezing amiTRIPTYLINE (amitriptyline 100 mg oral tablet)?1?tab(s)?100?Milligram?By Mouth?Daily at bedtime?Rx'd by neurology (Shayna) Amoxicillin-Clavulanate (Augmentin 875 Tablet)?1?tablet?By Mouth?2 times a day?for 6?Days Aripiprazole (ARIPiprazole 5 mg oral tablet)?5?Milligram?1?tablet?By Mouth?Daily Aspirin (Aspirin Low Dose 81 mg oral delayed release tablet)?1?tab(s)?81?Milligram?By Mouth?Daily Atorvastatin (atorvastatin 20 mg oral tablet)?1?tab(s)?20?Milligram?By Mouth?Daily Budesonide-Formoterol (budesonide-formoterol 160 mcg-4.5 mcg/inh inhalation aerosol with adapter)?INHALE 2 PUFFS TWICE A DAY Carbidopa-Levodopa (carbidopa-levodopa 25 mg-100 mg oral tablet)?TAKE 1 TAB ORALLY 2 TIMES A DAYFOR 30 DAYS TAKE W/ A CRACKER 30 MINUTES BEFORE BREAKFAST AND LUNCH, Chlorthalidone (chlorthalidone 25 mg oral tablet)?TAKE 1 TABLET BY MOUTH EVERY MORNING INSTR:BLOOD PRESSURE Clonazepam (clonazePAM 1 mg oral tablet)?1?tab(s)?1?Milligram?By Mouth?2 times a day?Rx'd by ANJEL Bear Cyanocobalamin (Vitamin B-12 1000 mcg oral tablet)?1,000?Microgram?1?tablet?By Mouth?Daily Diclofenac Topical (diclofenac 1% topical gel)?See Instructions?APPLY TOPICALLY TO AFFECTED ARE TWICE A DAY NEEDED FOR PAIN Doxycycline (Doxycycline Tablet)?100?Milligram?By Mouth?Every 12 hours?for 6?Days Durable Medical Equipment (Blood Pressure Monitor)?See Instructions?Use to check BP once dailyDx: I10 Durable Medical Equipment (cane)?See Instructions?use as needed for walking Durable Medical Equipment (Cane)?See Instructions?DX: M51. 26 Need length 99 monthsPlease send to bookjam Durable Medical Equipment (Compression- Lower Extremity (Knee High))?See Instructions?dx bilateral leg edema, wear [id number] mmHG1 pair Durable Medical Equipment (Compression Stockings)?See Instructions?surgical, knee length 15-20 mm Hg Durable Medical Equipment (Raised Toilet Seat - Elongated)?See Instructions?to be used duringtoiletingdx: M51.26 Durable Medical Equipment (Shower Chair)?See Instructions?DX: M51. 26 please send to [facility] Durable Medical Equipment (Shower chair)?See Instructions?M54.9 and M79.606, for 99mo Durable Medical Equipment (Non-slip shower mat)?See Instructions?M54.9 and M79.606, for 99mo Durable Medical Equipment (PAP Supplies - Mask, Tubing, Filters, Head Gear, Chin Strap, and Water Chamber)?See Instructions?to be used with CPAP machine for dx: ??KERMIT G47.30 Durable Medical Equipment (Auto CPAP)?See Instructions?Patient should be started on AutoCPAP 7-12 with a heated humidifier. Dx: KERMIT (G47.33) Durable Medical Equipment (Heating Pad)?See Instructions?dx: M25.55 Durable Medical Equipment (One Touch UltraSoft Lancets)?See Instructions?for 90?Days?check BG BID dx: E11.65 Durable Medical Equipment (One Touch Ultra 2 Glucose Meter)?See Instructions?for 90?Days?check BG BID dx: E11.65 Durable Medical Equipment (One Touch Ultra Test Strips)?See Instructions?for 90?Days?check BG BID dx: E11.65 Durable Medical Equipment (Epsom Salt)?See Instructions?Please use to soak fingers daily for 5-10 minutes. Durable Medical Equipment (Shower Chair w/ Handles and Seat)?See Instructions?Use daily whilebathing to prevent falls. ICD 10: G20.A1LON:99 Emollients, Topical (Aquaphor Healing for Baby topical ointment)?1?zenia?Topically?2 times a day?as needed?as needed for dry skin Enoxaparin?0.8?Milliliter?80?Milligram?Subcutaneous Injection?Every 12 hours Escitalopram (escitalopram 20 mg oral tablet)?1?tab(s)?20?Milligram?By Mouth?Daily Metformin (metFORMIN 500 mg oral tablet)?2?tab(s)?By Mouth?2 times a day?FOR DIABETES. Miscellaneous Rx (Diabetic socks)?See Instructions?please dispense diabetic stocks for this pt with DX E11.9 Miscellaneous Rx (Diabetic walking shoes)?See Instructions?Dispense 1 pair of diabetic walking shoesDX- E11.9 Miscellaneous Rx (FREESTYLE 28G LANCETS)?See Instructions?USE TO TEST BS 3 TIMES A DAY FOR DM, E11.65 Miscellaneous Rx ([facility] Advanced Healing Ointment 41%)?See Instructions?Apply topically twice daily. Omeprazole (omeprazole 20 mg oral enteric coated capsule)?1?capsule?20?Milligram?By Mouth?Daily Pregabalin (pregabalin 300 mg oral capsule)?1?capsule?300?Milligram?By Mouth?2 times a day?Rx'd by neurology at [facility] Primidone (primidone 50 mg oral tablet)?50?Milligram?By Mouth?3 times a day Psyllium (Metamucil 3.4 gm/5.2 gm oral powder for reconstitution)?3.4?gram?By Mouth?3 times a day?as needed?as needed for constipation Ropinirole (rOPINIRole 0.25 mg oral tablet)?See Instructions?4 tablet By Mouth 4 times a day Tizanidine (tiZANidine 4 mg oral tablet)?TAKE 1 TABLET BY MOUTH EVERY 8 HOURS NEEDED Valsartan (valsartan 320 mg oral tablet)?TAKE 1 TABLET BY MOUTH EVERY DAY Warfarin (warfarin 5 mg oral tablet)?5?Milligram?By Mouth?Daily ? Results Recent Labs BLOOD COUNT & DIFF WBC 18.1 k/mm3 (High)?? 10/29/2023 00:53 RBC 3.91 m/mm3 (Low)?? 10/29/2023 00:53 Hgb 11.9 Gm/dL (Low)?? 10/29/2023 00:53 Hct 34.8 % (Low)?? 10/29/2023 00:53 MCV 89.0 femtoliters ()?? 10/29/2023 00:53 MCH 30.4 pg ()?? 10/29/2023 00:53 MCHC 34.2 g/dL ()?? 10/29/2023 00:53 Platelet Count 284 k/mm3 ()?? 10/29/2023 00:53 RDW-SD 45.1 femtoliters ()?? 10/29/2023 00:53 MPV 9.8 femtoliters ()?? 10/29/2023 00:53 Nucleated RBC (Automated) 0.0 #/100 WBC'S ()?? 10/29/2023 00:53 Abs. NRBC 0.0 k/mm3 ()?? 10/29/2023 00:53 ?? CHEM GENERAL Sodium 134 mmol/L ()?? 10/29/2023 00:53 Potassium 3.9 mmol/L ()?? 10/29/2023 00:53 Chloride 102 mmol/L ()?? 10/29/2023 00:53 Bicarbonate Level 19 mmol/L (Low)?? 10/29/2023 00:53 Anion Gap 13 ()?? 10/29/2023 00:53 Glucose Level 139 mg/dL (High)?? 10/29/2023 00:53 Glucose, POC 164 mg/dL (High)?? 10/30/2023 06:54 BUN 12 mg/dL ()?? 10/29/2023 00:53 Creatinine-Blood 0.75 mg/dL ()?? 10/29/2023 00:53 Estimated GFR Creatinine 102 ML/MIN/1.73 M2 ()?? 10/29/2023 00:53 Calcium 8.4 mg/dL (Low)?? 10/29/2023 00:53 ?? COAG INR 1.3 (High)?? 10/30/2023 07:46 Protime (PT) 13.6 seconds (High)?? 10/30/2023 07:46 ? Imaging(s) ?MRI Abdomen W+W/O Contrast ?? 10/28/2023 10:15??by Manuel PRATHER, Clay Oliva ?KIDNEYS: No hydronephrosis. Kidneys enhance symmetrically. 2.4 x 2.3 x 2.2 cm partiallyexophytic left upper pole heterogenously mildly T2 hyperintense and T1 hypointense renal mass with heterogeneous predominantly peripheral postcontrast enhancement and similar distribution of restricted diffusivity, corresponding with the lesion on recent CT. This comes into close proximity with theundersurface of the left hemidiaphragm but otherwise does not contact the adjacent structures or the renal sinus fat. Several T2 hyperintense T1 hypointense nonenhancing simple cysts are noted in theright kidney. ?CT Abd/Pelvis W/ IV Contrast Only ?? 10/26/2023 17:41??by Michael Martines MD ?Kidneys and ureters: No hydronephrosis or stones. Again seen is an indeterminate 1.5 x 1.7 cm lesion in left upper pole. Simple appearing renal cysts and hypodensities that are too small to characterize are noted, requiring no dedicated follow up. ?? Bladder: Small amount of air within the nondependent portion of the bladder (image 119 of series 301). There is no significant bladder wall thickening or inflammatory changes. ?? Reproductive organs: Unremarkable. ? Note * Wilbert Montero RN: PERFORM Event Display: Discharge/Transfer Note Hospital Authored Date: [id number] Nursing Discharge Note Entered On: 10/31/2023 12:55 EDT Performed On: 10/31/2023 12:54 EDT by Wilbert Montero RN Nursing Discharge Note 2 Discharge Time : 10/31/2023 12:10 EDT Discharge Level of Care at Discharge : Home/Care Home/Foster Care Discharge Nursing Homes/Rehab Facilities : [facility] Patient Left Unit Via : Wheelchair Patient Accompanied Off Unit with : Other: brother DC Instructions Provided & Signed by Pt : Yes Patient Understands D/C Instructions : Yes Patient Instructions Discharge Signed : Yes Did Pt have Specialty Bed or Wound Vac : Wilbert Amaya RN - 10/31/2023 12:54 EDT * Nilson PRATHER, Yomi: PERFORM, MODIFY Event Display: Discharge/Transfer Note Hospital Authored Date: Patient: ??MATT LERMA ? Age:??63 Years?Sex:??Male?:??1960?? Patient Information Discharge Location: S1 Primary Care Physician: Dayo Castano MD Admit Date/Time: 10/26/23 10:17 Discharge Disposition Discharge Disposition: Home with Home Health Discharge Diagnosis Hematuria (R31.9) Sepsis (A41.9) Weakness (R53.1) Leukocytosis (D72.829) Deep vein thrombosis (DVT) of left lower extremity (I82.402) Parkinson's disease (G20.A1) Anxiety and depression (F41.9) Type II diabetes mellitus (E11.9) Renal lesion (N28.9) Abnormal EKG (R94.31) _ Discharge Medications Acetaminophen (Tylenol Extra Strength 500 mg oral tablet)?2?tab(s)?1,000?Milligram?By Mouth?3 times a day?as needed?as needed for pain Albuterol (Ventolin HFA 108 mcg/inh inhalation aerosol with adapter)?1?puff(s)?Inhalation?4 times a day?as needed?for wheezing amiTRIPTYLINE (amitriptyline 100 mg oral tablet)?1?tab(s)?100?Milligram?By Mouth?Daily at bedtime?Rx'd by neurology (Shayna) Aripiprazole (ARIPiprazole 5 mg oral tablet)?5?Milligram?1?tablet?By Mouth?Daily Atorvastatin (atorvastatin 20 mg oral tablet)?1?tab(s)?20?Milligram?By Mouth?Daily Budesonide-Formoterol (budesonide-formoterol 160 mcg-4.5 mcg/inh inhalation aerosol with adapter)?INHALE 2 PUFFS TWICE A DAY Carbidopa-Levodopa (carbidopa-levodopa 25 mg-100 mg oral tablet)?TAKE 1 TAB ORALLY 2 TIMES A DAYFOR 30 DAYS TAKE W/ A CRACKER 30 MINUTES BEFORE BREAKFAST AND LUNCH, Chlorthalidone (chlorthalidone 25 mg oral tablet)?TAKE 1 TABLET BY MOUTH EVERY MORNING INSTR:BLOOD PRESSURE Clonazepam (clonazePAM 1 mg oral tablet)?1?tab(s)?1?Milligram?By Mouth?2 times a day?Rx'd by ANJEL Bear Cyanocobalamin (Vitamin B-12 1000 mcg oral tablet)?1,000?Microgram?1?tablet?By Mouth?Daily Diclofenac Topical (diclofenac 1% topical gel)?See Instructions?APPLY TOPICALLY TO AFFECTED ARE TWICE A DAY NEEDED FOR PAIN Durable Medical Equipment (Blood Pressure Monitor)?See Instructions?Use to check BP once dailyDx: I10 Durable Medical Equipment (cane)?See Instructions?use as needed for walking Durable Medical Equipment (Cane)?See Instructions?DX: M51. 26 Need length 99 monthsPlease send to [facility]jam Durable Medical Equipment (Compression- Lower Extremity (Knee High))?See Instructions?dx bilateral leg edema, wear ahyep64-09 mmHG1 pair Durable Medical Equipment (Compression Stockings)?See Instructions?surgical, knee length 15-20 mm Hg Durable Medical Equipment (Raised Toilet Seat - Elongated)?See Instructions?to be used duringtoiletingdx: M51.26 Durable Medical Equipment (Shower Chair)?See Instructions?DX: M51. 26 please send to [facility] Durable Medical Equipment (Shower chair)?See Instructions?M54.9 and M79.606, for 99mo Durable Medical Equipment (Non-slip shower mat)?See Instructions?M54.9 and M79.606, for 99mo Durable Medical Equipment (PAP Supplies - Mask, Tubing, Filters, Head Gear, Chin Strap, and Water Chamber)?See Instructions?to be used with CPAP machine for dx: ??KERMIT G47.30 Durable Medical Equipment (Auto CPAP)?See Instructions?Patient should be started on AutoCPAP 7-12 with a heated humidifier. Dx: KERMIT (G47.33) Durable Medical Equipment (Heating Pad)?See Instructions?dx: M25.55 Durable Medical Equipment (One Touch UltraSoft Lancets)?See Instructions?for 90?Days?check BG BID dx: E11.65 Durable Medical Equipment (One Touch Ultra 2 Glucose Meter)?See Instructions?for 90?Days?check BG BID dx: E11.65 Durable Medical Equipment (One Touch Ultra Test Strips)?See Instructions?for 90?Days?check BG BID dx: E11.65 Durable Medical Equipment (Epsom Salt)?See Instructions?Please use to soak fingers daily for 5-10 minutes. Durable Medical Equipment (Shower Chair w/ Handles and Seat)?See Instructions?Use daily whilebathing to prevent falls. ICD 10: G20.A1LON:99 Emollients, Topical (Aquaphor Healing for Baby topical ointment)?1?zenia?Topically?2 times a day?as needed?as needed for dry skin Enoxaparin (enoxaparin 100 mg/mL injectable solution)?See Instructions?Give only 0.8 ml (80mg) Subcutaneous Injection twice Daily 14 days Escitalopram (escitalopram 20 mg oral tablet)?1?tab(s)?20?Milligram?By Mouth?Daily Metformin (metFORMIN 500 mg oral tablet)?2?tab(s)?By Mouth?2 times a day?FOR DIABETES. Miscellaneous Rx (Diabetic socks)?See Instructions?please dispense diabetic stocks for this pt with DX E11.9 Miscellaneous Rx (Diabetic walking shoes)?See Instructions?Dispense 1 pair of diabetic walking shoesDX- E11.9 Miscellaneous Rx (FREESTYLE 28G LANCETS)?See Instructions?USE TO TEST BS 3 TIMES A DAY FOR DM, E11.65 Miscellaneous Rx ([employer] Advanced Healing Ointment 41%)?See Instructions?Apply topically twice daily. Omeprazole (omeprazole 20 mg oral enteric coated capsule)?1?capsule?20?Milligram?By Mouth?Daily Pregabalin (pregabalin 300 mg oral capsule)?1?capsule?300?Milligram?By Mouth?2 times a day?Rx'd by neurology at [facility] Primidone (primidone 50 mg oral tablet)?50?Milligram?By Mouth?3 times a day Psyllium (Metamucil 3.4 gm/5.2 gm oral powder for reconstitution)?3.4?gram?By Mouth?3 times a day?as needed?as needed for constipation Ropinirole (rOPINIRole 0.25 mg oral tablet)?See Instructions?4 tablet By Mouth 4 times a day Tizanidine (tiZANidine 4 mg oral tablet)?TAKE 1 TABLET BY MOUTH EVERY 8 HOURS NEEDED Valsartan (valsartan 320 mg oral tablet)?TAKE 1 TABLET BY MOUTH EVERY DAY Warfarin (warfarin 7.5 mg oral tablet)?7.5?Milligram?By Mouth?Daily?for 14?Days ? Inpatient Medications Medications (27) Active SCHEDULED: (19) Amitriptyline 25 mg Tablet (amitriptyline 25 mg oral tablet) ??100 mg, By Mouth, Daily at bedtime Ammonium Lactate 12% Cream (Ammonium Lactate 12% Topical) ??1 application, Topically, 2 times a day Amoxicillin 875 mg/Clavulanate 125 mg Tablet (Augmentin 875 Tablet) ??1 tablet, By Mouth, 2 times aday Aripiprazole 5 mg Tablet (ARIPiprazole 5 mg oral tablet) ??5 mg, By Mouth, Daily Atorvastatin 20 mg Tablet (atorvastatin 20 mg oral tablet) ??20 mg, By Mouth, Daily at bedtime Carbidopa 25 mg / Levodopa 100 mg Tablet (carbidopa-levodopa 25 mg-100 mg oral tablet) ??1 tablet, By Mouth, 2 times a day Clonazepam 1 mg Tablet (clonazePAM 1 mg oral tablet) ??2 mg, By Mouth, 2 times a day Doxycycline 100 mg Tablet (Doxycycline Tablet) ??100 mg, By Mouth, Every 12 hours Enoxaparin 80 mg Inj (Enoxaparin Inj) ??80 mg 0.8 mL, Subcutaneous Injection, Every 12 hours Escitalopram 10 mg Tablet (escitalopram 10 mg oral tablet) ??20 mg, By Mouth, Daily Insulin Lispro 100 units/mL Inj (Insulin LISPRO Sliding Scale) ??2-10 units, Subcutaneous Injection, 3 times a day before meals NaCl 0.9% Flush 3ml (NaCL 0.9% Flush) ??3 mL, IV Push, Every 8 hours Pantoprazole 20 mg EC Tablet (Protonix 20 mg oral delayed release tablet) ??20 mg, By Mouth, Daily Pregabalin 150 mg Capsule (pregabalin 150 mg oral capsule) ??300 mg, By Mouth, 2 times a day Primidone 50 mg Tablet (primidone 50 mg oral tablet) ??50 mg, By Mouth, 3 times a day Ropinirole 0.25 mg Tablet (rOPINIRole 0.25 mg oral tablet) ??0.75 mg, By Mouth, 4 times a day Valsartan 160 mg Tablet (valsartan 160 mg oral tablet) ??320 mg, By Mouth, Daily Vitamin B-12 ??1000 mcg Tablet (Vitamin B-12 1000 mcg oral tablet) ??1,000 mcg, By Mouth, Daily Warfarin 5 mg Tablet (Coumadin Tablet) ??7.5 mg, By Mouth, Daily CONTINUOUS: (0) PRN: (8) Acetaminophen 325 mg Tablet (Acetaminophen Tablet) ??650 mg, By Mouth, Every 4 hours Albuterol 90mcg/Inhalation Inhaler HFA (Albuterol 90 mcg Inhaler) ??180 mcg 2 puffs, Inhalation, Every 4 hours Docusate Sodium 100 mg Capsule (Docusate Sodium Capsule) ??100 mg 1 capsule, By Mouth, 2 times a day Melatonin 3 mg Tablet (Melatonin Tablet) ??3 mg, By Mouth, Daily at bedtime NaCl 0.9% Flush 3ml (NaCL 0.9% Flush) ??3 mL, IV Push, Every 8 hours Polyethylene Glycol 17 Gm Powder (MiraLax Powder) ??17 Gm 1 pack/packet, By Mouth, Daily Senna Tablet ??8.6 mg 1 tablet, By Mouth, 2 times a day Tizanidine 4 mg Tablet (tiZANidine 4 mg oral tablet) ??4 mg, By Mouth, 3 times a day ? 72 Hour Antibiotic History Active Antibiotics Calendar Day Last Administered First Administered Amoxicillin-Clavulanate??1 tablet, By Mouth, 2 times a day ?6 10/31/2023 07:51 10/26/2023 23:43 Doxycycline??100 mg, By Mouth, Every 12 hours ?6 10/30/2023 22:43 10/26/2023 23:43 ? Vaccinations and Immunoprophylaxis influenza virus vaccine, inactivated: 0.5 mL (04/04/23 08:31:00) influenza virus vaccine, inactivated: 0.5 Unknown (03/31/22 08:00:00) influenza virus vaccine, inactivated: 0.5 mL (03/30/21 16:50:00) influenza virus vaccine, inactivated: 0.5 Unknown (03/02/20 08:00:00) influenza virus vaccine, inactivated: 0.5 mL (03/07/19 08:23:00) influenza virus vaccine, inactivated: 0.5 mL (03/28/18 15:34:00) influenza virus vaccine, inactivated: 0.5 Unknown (02/10/18 08:00:00) influenza virus vaccine, inactivated: 0.5 mL (03/30/16 11:02:00) influenza virus vaccine, inactivated: 0.5 mL (03/04/16 15:43:00) influenza virus vaccine, inactivated: 0.5 mL (04/16/15 10:49:00) pneumococcal 20-valent conjugate vaccine: 0.5 mL (05/05/23 09:04:00) pneumococcal 23-valent vaccine: 0.5 mL (02/16/16 14:28:00) SARS-CoV-2 (COVID-19) mRNA BNT-162b2 vac: 0.3 mL (06/01/21 10:34:00) SARS-CoV-2 (COVID-19) mRNA BNT-162b2 vac: 0.3 Unknown (11/07/20 08:00:00) SARS-CoV-2 (COVID-19) mRNA BNT-162b2 vac: 0.3 Unknown (10/17/20 08:00:00) [id number] 12y+ bivalent booster vax: 0.3 mL (02/21/23 10:39:00) tetanus/diphtheria/pertussis, acel(Tdap): 0.5 mL (11/25/14 10:35:00) zoster vaccine, inactivated: 0.5 Unknown (06/18/19 07:00:00) zoster vaccine, inactivated: 0 Unknown (06/17/19 00:00:00) zoster vaccine, inactivated: 0.5 Unknown (11/25/17 08:00:00) Influenza Vaccine (oldterm): 0.5 mL (02/17/17 12:00:00) ? Allergies Allergies ?(Active and Proposed Allergies Only) gabapentin? (Severity: Unknown severity, Onset: Unknown) traZODone? (Severity: Unknown severity, Onset: Unknown) SEROquel? (Severity: Unknown severity, Onset: Unknown) hydrOXYzine hydrochloride? (Severity: Unknown severity, Onset: Unknown) Lantus? (Severity: Unknown severity, Onset: Unknown) Ventolin HFA? (Severity: Unknown severity, Onset: Unknown) Flovent HFA? (Severity: Unknown severity, Onset: Unknown) ZyrTEC? (Severity: Unknown severity, Onset: Unknown) penicillin? (Severity: Unknown, Onset: Unknown) ? PCP Follow-Up/Heads-Up ?? Urology follow up for Renal mass Already seen by urology inpatient and suggested OP follow up ?? Coumadin management: Angel Luisy on Lovenox and coumadin, INR today is 1.5 Future Appointments Monday 1:00 PM EDT ?? Where: [address] [address]- Status: Pending Monday 8:00 AM EDT ?? Where: [facility] Status: Pending Hospital Course This is a 63-year-old male with past medical history as noted above, who currently presents to the hospital from his rehab facility with complaint of weakness. He was noted here to have evidence of microscopic hematuria and CT imaging suggested an abnormality in the upper pole of the left kidney with a 1.7 cm lesion for which contrast-enhanced MRI could be obtained for further characterization. He is now admitted for further management. He was admitted with septic shock due to cellulitis, and also found to have left lower extremity peroneal vein DVT with rhabdomyolysis and BHARATI; he was admitted to the ICU on pressor support and intubated and eventually improved and was subsequently discharged to rehab yesterday (October 24).he now presents back from the rehab with weakness ? Leukocytosis (D72.829) Weakness (R53.1) ? He presents with weakness and leg pain and was found here to have a leukocytosis with evidence of left shift. His UA showed RBCs, but only 1 WBC, so unlikely that he has UTI. Chest x-ray did not demonstrate any evidence of pneumonia. Blood cultures were obtained in the ED and we will follow for anygrowth. F/u Blood cultures/Urine cultures negative ? Hematuria (R31.9) Renal lesion (N28.9) ??Patient noted to have evidence of microscopic hematuria on his urinalysis. CT scan of the abdomenand pelvis also showed evidence of abnormality in the upper pole of the left presents kidney. We will proceed with contrast-enhanced MRI for further evaluation at this lesion. MRI yesterday and resulted for possible 2.5 cm clear-cell renal carcinoma. 10/29: Nothing acute for now and urlogy suggested OP follow up. PVU ? Abnormal EKG (R94.31) ?Patient's EKG today showing evidence of pacemaker spikes, but he does not have a history of pacemaker. Chest x-ray does not show this either. Will plan on repeating an EKG in the morning. ? Deep vein thrombosis (DVT) of left lower extremity (I82.402) ?Patient was found on October 23 evidence of nonocclusive thrombus of one of the paired peroneal veins, popliteal vein, distal femoral vein. He was treated with Lovenox and Coumadin and discharged withthis with goal INR of 2-3. Increase dose of coumadin to 7.5mg today and cont Lovenox.??Please hold Lovenox after goal INR is reached. Today INR is 1.5 ?? VNA: Please draw blood for INR and forward it to PCP/Coumadin clinic. ?? Objective ? Vital Signs?? Temperature: 98.1 DegF (10/31/23 07:44:00) Temperature Route: Oral (10/31/23 07:44:00) Pulse Rate:??113 bpm??High (10/31/23 07:44:00) Respiratory Rate: 18 br/min (10/31/23 07:44:00) Systolic Blood Pressure: 111 mm Hg (10/31/23 07:51:00) Diastolic Blood Pressure: 57 mm Hg (10/31/23 07:51:00) Blood pressure sites: Arm, right (10/31/23 07:44:00) Mean Arterial Pressure: 75 mm Hg (10/31/23 07:44:00) Pulse Pressure: 54 mm Hg (10/31/23 07:44:00) Oxygen Saturation: 100 % (10/31/23 07:44:00) Mode of Delivery (Oxygen): Room air (10/31/23 07:44:00) FiO2: 21 % (10/31/23 03:53:00) Early Warning Score: 5 (10/31/23 07:53:41) ? Intake/Output? 10/25 10:17 10/30 07:00 05 07:00 05 07:00 10/27 07:00 ?? 10/30 11:23 10/30 11:23 10/30 06:59 10/29 06:59 10/28 06:59 Intake ? 2940 ?120 ?960 ?920 ?840 Output ?650 ?0 ?0 ?0 ?0 Net Total ? 2290 ?120 ?960 ?920 ?840 ? Urine Count ? 18 ?2 ?3 ?3 ? 10 ? [place] Coma Scale Kasi Coma Score: 15 (10/29/23 20:10:00) Motor Response-Adult: Obeys commands (10/29/23 20:10:00) Response Eye Opening: Spontaneously (10/29/23 20:10:00) Verbal Response-Adult: Oriented and converses (10/29/23 20:10:00) ?? . Physical Exam Pending Results Add On Lab Order ordered on 10/27/2023 INR ordered on 10/28/2023 Patient Instructions Please follow-up with [facility] urology for your renal lesion which is suspicious for cancer?? ,??you need an appointment You are currently taking 2 medication??for??your deep vein thrombosis,??one of them should be stopped after your INR goal is reached VNA services will be??at your home??to continue your care ?? You came to the hospital with complaints of??weakness.?Rehab bed was offered but he declined andwanted to go home with services Home Health Face to Face *Denotes mandatory ron ?? *I certify that this patient is under my care and that I or an allowed non- physician working with me had a face to face encounter with the patient on this date:??10/31/2023 11:25 ?? *The encounter with the patient was in whole, or in part, for the following medical condition, which is the primary diagnosis(es) for home health care:??Hematuria (R31.9) Sepsis (A41.9) Weakness (R53.1) Leukocytosis (D72.829) Deep vein thrombosis (DVT) of left lower extremity (I82.402) Parkinson's disease (G20.A1) Anxiety and depression (F41.9) Type II diabetes mellitus (E11.9) Renal lesion (N28.9) Abnormal EKG (R94.31) ?? *Select the indications for the discipline/s that are being arranged for this patient. Nursing (select all that apply): [_] None [y_] Medication management (reconciliation, teaching)?? [_] Chronic disease management?? [_] Wound care and treatment?? [_] Home safety evaluation [_] Administer SQ/IM/IV medications?? [_] Cath care?? [_] Drain care?? [_] Trach or GT care?? Other _ Occupation Therapy (select all that apply): [_] None [_] ADL Management [_] Fall prevention training [_] Energy conservation [_] Cognitive training Other _ Physical Therapy (select all that apply): [_] None [_] Functional mobility training [y_] Home exercise program to strengthen [y_] Increase ROM?? [_] Falls prevention training [_] Home maintenance program for chronic disease Other _ Speech Therapy (select all that apply): [_] None [_] Swallow evaluation and training [_] Speech and language training [_] Cognitive training to process, organize, and/or recall information Other _ ? *Homebound due to (select all that apply): [_] Inability to leave home without assistance/supervision [_] Inability to ambulate without assistance [_] Pain [y_] Decreased strength and endurance [_] Unsteady gait [_] Severe SOB and fatigue [_] Impaired transfers [_] Inability to negotiate stairs [_] Limited weight bearing [_] Mental status change? *Physician Signature: Yomi lopez ?? *By signing this, I certify that I have personally evaluated the patient and agree with the findings and recommendations as documented above. ? HealthFTF Results Discharge Labs BACTERIOLOGY Blood Culture Results Preliminary report ()?? 10/26/2023 17:05 Blood Culture Specimen Source BLOOD ()?? 10/26/2023 17:05 Blood Culture Isolate 1 Comment ()?? 10/26/2023 17:05 ? BLOOD COUNT & DIFF WBC 16.3 k/mm3 (High)?? 10/30/2023 10:18 RBC 4.07 m/mm3 (Low)?? 10/30/2023 10:18 Hgb 12.4 Gm/dL (Low)?? 10/30/2023 10:18 Hct 37.2 % (Low)?? 10/30/2023 10:18 MCV 91.4 femtoliters ()?? 10/30/2023 10:18 MCH 30.5 pg ()?? 10/30/2023 10:18 MCHC 33.3 g/dL ()?? 10/30/2023 10:18 Platelet Count 325 k/mm3 ()?? 10/30/2023 10:18 RDW-SD 47.2 femtoliters (High)?? 10/30/2023 10:18 MPV 9.5 femtoliters ()?? 10/30/2023 10:18 Nucleated RBC (Automated) 0.0 #/100 WBC'S ()?? 10/30/2023 10:18 Abs. NRBC 0.0 k/mm3 ()?? 10/30/2023 10:18 Abs. Neut 15.5 k/mm3 (High)?? 10/26/2023 10:43 Abs. Lymph 1.5 k/mm3 ()?? 10/26/2023 10:43 Abs. [place] 1.5 k/mm3 (High)?? 10/26/2023 10:43 Abs. Eo 0.1 k/mm3 ()?? 10/26/2023 10:43 Abs. Baso 0.1 k/mm3 ()?? 10/26/2023 10:43 Neut % 80.5 % (High)?? 10/26/2023 10:43 Lymph % 7.7 % (Low)?? 10/26/2023 10:43 [place] % 7.7 % ()?? 10/26/2023 10:43 Eos % 0.6 % ()?? 10/26/2023 10:43 Baso % 0.3 % ()?? 10/26/2023 10:43 Imm Gran 3.2 % ()?? 10/26/2023 10:43 Abs. Imm Gran 0.6 k/mm3 ()?? 10/26/2023 10:43 ?? CARDIAC CK, Total HEMOLYZED units/L ()?? 10/26/2023 10:43 ? CHEM GENERAL Sodium 134 mmol/L ()?? 10/29/2023 00:53 Potassium 3.9 mmol/L ()?? 10/29/2023 00:53 Chloride 102 mmol/L ()?? 10/29/2023 00:53 Bicarbonate Level 19 mmol/L (Low)?? 10/29/2023 00:53 Anion Gap 13 ()?? 10/29/2023 00:53 Glucose Level 139 mg/dL (High)?? 10/29/2023 00:53 Glucose, POC 192 mg/dL (High)?? 10/31/2023 07:08 BUN 12 mg/dL ()?? 10/29/2023 00:53 Creatinine-Blood 0.75 mg/dL ()?? 10/29/2023 00:53 Estimated GFR Creatinine 102 ML/MIN/1.73 M2 ()?? 10/29/2023 00:53 Calcium 8.4 mg/dL (Low)?? 10/29/2023 00:53 Protein, Total 5.5 Gm/dL (Low)?? 10/26/2023 10:43 Albumin 3.2 Gm/dL (Low)?? 10/26/2023 10:43 AG Ratio 1.4 ()?? 10/26/2023 10:43 Alkaline Phosphatase 66 units/L ()?? 10/26/2023 10:43 AST (SGOT) 40 units/L ()?? 10/26/2023 10:43 ALT (SGPT) 62 units/L (High)?? 10/26/2023 10:43 Bilirubin, Total 0.3 mg/dL ()?? 10/26/2023 10:43 Lactate 2.1 mmol/L ()?? 10/26/2023 10:43 ? COAG INR 1.5 (High)?? 10/31/2023 00:23 Protime (PT) 15.9 seconds (High)?? 10/31/2023 00:23 ?? HEME OTHER Hold Lavender Top SPECIMEN DISCARDED AFTER 24 HOURS. ()?? 10/31/2023 00:23 Hold Blue Top SPECIMEN DISCARDED AFTER 4 HOURS. ()?? 10/28/2023 17:21 ?? MISC. CHEMISTRY Hold Gel Top SPECIMEN DISCARDED AFTER 1 WEEK ()?? 10/31/2023 00:23 ? UA/URINALYSIS Appear/Color, Urine LIGHT YELLOW ()?? 10/26/2023 10:46 Specific Arjay, Urine 1.013 ()?? 10/26/2023 10:46 pH, Urine 7.5 ()?? 10/26/2023 10:46 Albumin, Urine TRACE (Abnormal)?? 10/26/2023 10:46 Glucose, Urine 4+ (Abnormal)?? 10/26/2023 10:46 Ketones, Urine NEGATIVE ()?? 10/26/2023 10:46 Bilirubin, Urine NEGATIVE ()?? 10/26/2023 10:46 Hemoglobin, Urine 3+ (Abnormal)?? 10/26/2023 10:46 Nitrite, Urine NEGATIVE ()?? 10/26/2023 10:46 Leukocyte, Urine NEGATIVE ()?? 10/26/2023 10:46 Urobilinogen NORMAL mg/dL ()?? 10/26/2023 10:46 WBC's, Urine 1 /HPF ()?? 10/26/2023 10:46 RBC's, Urine >182 /HPF (High)?? 10/26/2023 10:46 Squamous Epith <1 /HPF ()?? 10/26/2023 10:46 Mucus SLIGHT /LPF ()?? 10/26/2023 10:46 Hold Urine Culture Testing available 48 hours from time of collection. ()?? 10/26/2023 10:46 ? Blood Glucose Trend Glucose, POC:??192 mg/dL??High (10/31/23 07:08:00) Glucose, POC:??208 mg/dL??High (10/30/23 21:16:00) Glucose, POC:??202 mg/dL??High (10/30/23 16:46:00) Glucose, POC:??109 mg/dL??High (10/30/23 11:33:00) ? _ minutes spent on discharge * Winston LOERA, Wilbert Webster: PERFORM Event Display: Patient Education/Instruction Authored Date: Inpatient Adult Discharge Instructions. [place] [id number] Name: MATT LERMA : 1960?? Visit: 10/26/2023 10:17?? Current Date: 10/31/2023 11:58 ?? Account: [id number]?? Inpatient Adult Discharge Instructions We would like to thank you for allowing us to assist you with your healthcare needs. The following includes patient education materials and information regarding your injury/illness. Our entire staffstrives to provide an excellent experience for our patients and their families. PLEASE ENSURE YOU FOLLOW-UP PER THE INSTRUCTIONS BELOW! ?? YOUR OPINION IS IMPORTANT TO US! Please complete the survey you may receive by mail or email. Your feedback will be used to make improvements to the healthcare experiences of our patients and their families. Surveys are administered by [employer] [facility] ?? If further treatment with your primary care physician or another doctor is recommended, it is important for you to keep the appointment. Call your primary care physician or return to the Emergency Department immediately if your condition worsens, fails to improve, or new symptoms develop. If you need to find a doctor, you can call [facility] for a referral at [phone] or toll free at [phone] or log in to [email or web address].. ?? [facility], in keeping with [facility] guidance, no longer requires face masks for staff, patientsor visitors in most situations. Similiar to time spent indoors at other locations, there is the chance that you were exposed to repiratory viruses during your time with us (such as flu or COVID-19). If you develop symptoms concerning for a viral respiratory infection, please seek testing (and treatment if indicated) from your medical provider or home test kit. ?? You can view and manage your care through the patient portal or by using a health care zenia of your choosing. [employer]Net is a website that allows you to securely view your medical information including your hospital discharge summary, office visit summaries, medications and follow-up visits. You can also request appointments, renew medications, and request access to your medical information using a health care zenia of your choosing, or just ask a question. You can enroll at [email or web address] or register during your next office visit. You have been discharged from [facility], Patient Care Unit: S1??. If you have any questions regarding these instructions, including results of studies pending, afteryou leave, please call us and we will be happy to assist you 09/01. [facility] Your Care Team Attending Physician Yomi Devine MD?? Consulting Providers Yomi Devine MD?? Discharging Providers Yomi Devine MD Reason for Your Visit coming from [facility], EMS was called due to lethargy, feeling unwell .?? Your Diagnosis Abnormal EKG Anxiety and depression Deep vein thrombosis (DVT) of left lower extremity Leukocytosis Parkinson's disease Renal lesion Type II diabetes mellitus Weakness Weakness or fatigue Tests Performed Below is a partial list of the tests performed during your hospitalization. You may have had other tests and procedures not included in this list. Please discuss all test results with your provider. Basic Metabolic Panel Blood Culture Blood Culture Result CBC CBC w/ Differential CK (CREATINE KINASE) Comprehensive Metabolic Panel GLUCOSE POC HOLD BLUE TUBE HOLD GEL TUBE HOLD LAVENDER TUBE INR Lactate Level Urinalysis w/hold for Urine Culture CT Abd/Pelvis W/ IV Contrast Only MRI Abdomen W+W/O Contrast XR Chest 2 Views Frontal and Lat Add On Lab Order?? INR?? Primary Care Provider Dayo Castano MD? Advance Directive Health Care Proxy on File Yes - Health Care Proxy Discharge Vitals Temperature: 98.1 DegF Pulse Rate:??113 bpm??High Respiratory Rate: 18 br/min Systolic Blood Pressure: 111 mm Hg Diastolic Blood Pressure: 57 mm Hg Oxygen Saturation: 100 % Studies Pending All studies ordered during this hospital stay have been completed unless listed below. Please discuss all pending results with your provider listed above in these instructions. ?? Add On Lab Order?? INR?? What to do next Instructions From Your Doctor Please follow-up with [facility] urology for your renal lesion which is suspicious for cancer?? ,??you need an appointment You are currently taking 2 medication??for??your deep vein thrombosis,??one of them should be stopped after your INR goal is reached VNA services will be??at your home??to continue your care ?? You came to the hospital with complaints of??weakness.?Rehab bed was offered but he declined andwanted to go home with services ?? Orders? 10/31/23 11:55:00 EDT?? 10/31/23 11:55:00 EDT?? Scheduled Follow-Up Appointments Monday 1:00 PM EDT ?? Where: [address] [address]- Status: Pending Monday 8:00 AM EDT ?? Where: [facility] Status: Pending Discharge Medications MATT LERMA :1960 Visit Date:10/26/2023 Medications: Please continue your medications until treatment is completed or stopped by your provider. Medications not listed below should be discontinued. Discuss any questions related to medications with your provider. What How Much When Why Instructions Next Dose Changed Albuterol (Ventolin HFA 108 mcg/ inh inhalation aerosol with adapter) 1 puff(s) Inhalation 4 times a day as needed for for wheezing as needed Changed Aripiprazole (ARIPiprazole 5 mg oral tablet) 1 tab(s) Oral Daily 10/31 9am Changed Atorvastatin (atorvastatin 20 mg oral tablet) 1 tab(s) Oral Daily 10/30 8pm Changed Budesonide-Formoterol (budesonide-formoterol 160 mcg-4.5 mcg/ inh inhalation aerosol with adapter) INHALE 2 PUFFS TWICE A DAY ?? 10/30 8pm Changed Carbidopa-Levodopa (carbidopa-levodopa 25 mg-100 mg oral tablet) TAKE 1 TAB ORALLY 2 TIMES A DAY FOR 30 DAYS TAKE W/ ??A CRACKER 30 MINUTES BEFORE BREAKFAST AND LUNCH, ?? 10/30 9pm Changed Chlorthalidone (chlorthalidone 25 mg oral tablet) TAKE 1 TABLET BY MOUTH EVERY MORNING INSTR:BLOOD PRESSURE ?? 10/31 9am Changed Clonazepam (clonazePAM 1 mg oral tablet) 1 tab(s) Oral Twice a day Rx'd by ANJEL Bear ?? 10/30 9pm Changed Cyanocobalamin (Vitamin B-12 1000 mcg oral tablet) 1 tab(s) Oral Daily 10/31 9am Changed Enoxaparin (enoxaparin 100 mg/ mL injectable solution) See instructions Give only 0.8 ml (80mg) Subcutaneous Injection twice Daily 14 days ?? Pickup at [facility]/pharmacy #[id number] 10/30 2pm Changed Escitalopram (escitalopram 20 mg oral tablet) 1 tab(s) Oral Daily 10/31 9am Changed Metformin (metFORMIN 500 mg oral tablet) 2 tab(s) Oral Twice a day FOR DIABETES. ?? 10/30 9pm Changed Omeprazole (omeprazole 20 mg oral enteric coated capsule) 1 capsule Oral Daily 10/31 8am Changed Pregabalin (pregabalin 300 mg oral capsule) 1 capsule Oral Twice a day Rx'd by neurology at [facility] ?? 10/30 9pm Changed Primidone (primidone 50 mg oral tablet) 50 Milligram Oral 3 times a day 10/30 2pm, 9pm Changed Ropinirole (rOPINIRole 0.25 mg oral tablet) See instructions 4 tablet By Mouth 4 times a day ?? 10/30 1pm, 5pm, 9pm Changed Valsartan (valsartan 320 mg oral tablet) TAKE 1 TABLET BY MOUTH EVERY DAY ?? 10/31 9am Changed Warfarin (warfarin 7.5 mg oral tablet) 7.5 Milligram Oral Daily Duration: 14 Days Pickup at [facility]/pharmacy #[id number] 10/30 6pm Changed amiTRIPTYLINE (amitriptyline 100 mg oral tablet) 1 tab(s) Oral Daily at Bedtime Rx'd by neurology (Shayna) ?? 10/30 9pm Unchanged Acetaminophen (Tylenol Extra Strength 500 mg oral tablet) 2 tab(s) Oral 3 times a day as needed for as needed for pain as directed Unchanged Diclofenac Topical (diclofenac 1% topical gel) See instructions APPLY TOPICALLY TO AFFECTED ARE TWICE A DAY NEEDED FOR PAIN ?? as directed Unchanged Durable Medical Equipment (Auto CPAP) See instructions Sleep apnea Patient should be started on AutoCPAP 7-12 with a heated humidifier. Dx: KERMIT (G47.33) ?? as directed Unchanged Durable Medical Equipment (Blood Pressure Monitor) See instructions Use to check BP once daily Dx: I10 ?? as directed Unchanged Durable Medical Equipment (Cane) See instructions Lumbar herniated disc DX: M51. 26 ?? Need length 99 months ?? Please send to [facility] [facility] ?? as directed Unchanged Durable Medical Equipment (cane) See instructions Weakness use as needed for walking ?? as directed Unchanged Durable Medical Equipment (Compression Stockings) See instructions surgical, knee length 15-20 mm Hg ?? as directed Unchanged Durable Medical Equipment (Compression- Lower Extremity (Knee High)) See instructions dx bilateral leg edema, wear daily 15-20 mmHG 1 pair ?? as directed Unchanged Durable Medical Equipment (Epsom Salt) See instructions Cracked skin Please use to soak fingers daily for 5-10 minutes. ?? as directed Unchanged Durable Medical Equipment (Heating Pad) See instructions dx: M25.55 ?? as directed Unchanged Durable Medical Equipment (Non-slip shower mat) See instructions M54.9 and M79.606, for 99mo ?? as directed Unchanged Durable Medical Equipment (One Touch Ultra 2 Glucose Meter) See instructions Duration: 90 Days check BG BID dx: E11.65 ?? as directed Unchanged Durable Medical Equipment (One Touch Ultra Test Strips) See instructions Duration: 90 Days check BG BID dx: E11.65 ?? as directed Unchanged Durable Medical Equipment (One Touch UltraSoft Lancets) See instructions Duration: 90 Days check BG BID dx: E11.65 ?? as directed Unchanged Durable Medical Equipment (PAP Supplies - Mask, Tubing, Filters, Head Gear, Chin Strap, and Water Chamber) See instructions to be used with CPAP machine for dx: ??KERMIT G47.30 ?? as directed Unchanged Durable Medical Equipment (Raised Toilet Seat - Elongated) See instructions to be used during toileting dx: M51.26 ?? as directed Unchanged Durable Medical Equipment (Shower Chair w/ Handles and Seat) See instructions Parkinsons Use daily while bathing to prevent falls. ICD 10: G20.A1 QUINTIN:99 ?? as directed Unchanged Durable Medical Equipment (Shower Chair) See instructions DX: M51. 26 ?? please send to [facility] ?? as directed Unchanged Durable Medical Equipment (Shower chair) See instructions Back pain Leg pain M54.9 and M79.606, for 99mo ?? as directed Unchanged Emollients, Topical (Aquaphor Healing for Baby topical ointment) 1 zenia Topically Twice a day as needed for as needed for dry skin as directed Unchanged Miscellaneous Rx ([facility] Advanced Healing Ointment 41%) See instructions Dry skin Apply topically twice daily. ?? as directed Unchanged Miscellaneous Rx (Diabetic socks) See instructions please dispense diabetic stocks for this pt with DX E11.9 ?? as directed Unchanged Miscellaneous Rx (Diabetic walking shoes) See instructions Dispense 1 pair of diabetic walking shoes DX- E11.9 ?? as directed Unchanged Miscellaneous Rx (FREESTYLE 28G LANCETS) See instructions USE TO TEST BS 3 TIMES A DAY FOR DM, E11.65 ?? as directed Unchanged Psyllium (Metamucil 3.4 gm/ 5.2 gm oral powder for reconstitution) 3.4 gram Oral 3 times a day as needed for as needed for constipation as directed Unchanged Tizanidine (tiZANidine 4 mg oral tablet) TAKE 1 TABLET BY MOUTH EVERY 8 HOURS NEEDED ?? as directed [facility]acy Information [id number] [address], [place] [id number] [phone] ?? What How Much When Comments Stop Taking Amoxicillin-Clavulanate (Augmentin 875 Tablet) 1 tab(s) Oral Twice a day Duration: 6 Days Stop Taking Aspirin (Aspirin Low Dose 81 mg oral delayed release tablet) 1 tab(s) Oral Daily Stop Taking Aspirin (Aspirin Low Dose 81 mg oral delayed release tablet) 1 tab(s) Oral Daily Stop Taking DiphenhydrAMINE (Benadryl 25 mg oral capsule) 1 capsule Oral 3 times a day as needed for as needed for itching DO NOT TAKE WITH FEXOFENADINE ?? Stop Taking Doxycycline (Doxycycline Tablet) 100 Milligram Oral Every 12 hours Duration: 6 Days Stop Taking HydrOXYzine (hydrOXYzine pamoate 100 mg oral capsule) 1 capsule Oral Daily at Bedtime Rx'd by neurology at [facility] ?? Stop Taking Levalbuterol (Xopenex HFA 45 mcg/ inh inhalation aerosol) 2 puff(s) Inhalation Every 4 hours as needed for Wheezing/Shortness of Breath Duration: 30 Days replaces Ventolin due to reaction ?? Stop Taking Loratadine (loratadine 10 mg oral tablet) 1 tab(s) Oral Daily as needed for NEEDED FOR ALLERGIES Stop Taking Mirtazapine (mirtazapine 7.5 mg oral tablet) 1 tab(s) Oral Daily at Bedtime Rx'd by ANJEL Bear ?? Stop Taking Nicotine (Nicotine 2 mg gum) See instructions CHEW 1 PIECE OF GUM EVERY 2 HOURS NEEDED FOR SMOKING CESSATION ?? Stop Taking [place]-3 Polyunsaturated Fatty Acids (omega-3 polyunsaturated fatty acids ethyl esters 1000 mg oral capsule) 1 capsule Oral Twice a day Duration: 90 Days Stop Taking Polyethylene Glycol 3350 (polyethylene glycol 3350 oral powder for reconstitution) See instructions DISSOLVE 17 GRAMS IN WATER & DRINK ONCE A DAY UNTIL BM, IF NO BM DRINK 2X/ DAY. MAX 4 TIMES DAILY ?? Stop Taking Propranolol (propranolol 10 mg oral tablet) TAKE 1 TABLET BY MOUTH TWICE A DAY NEEDED FOR ANXIETY. MAY TAKE 1 EXTRA TAB FOR SEVERE ANXIETY ?? Stop Taking Tramadol (traMADol 50 mg oral tablet) 2 tab(s) Oral Every 6 hours as needed for for pain Duration: 7 Days Rx'd by ortho ?? Prescription Given During Visit Enoxaparin (enoxaparin 100 mg/mL injectable solution) - , # 14 mL, 0 Refills, Give only 0.8 ml (80mg) Subcutaneous Injection twice Daily 14 days, [facility]/pharmacy #[id number], [address] [id number] [phone]?? Warfarin (warfarin 7.5 mg oral tablet) - 7.5 mg, By Mouth, Daily, # 14 tablet, 0 Refills, [facility]/pharmacy #[id number], [address] [id number] [phone]?? Laboratory Results Below is a partial list of the most recent Laboratory test results done prior to this discharge. You may have had other tests and procedures not included in this list. Please discuss all test resultswith your provider. Basic Metabolic Panel (10/29/2023) ???Sodium - 134 mmol/L???Potassium - 3.9 mmol/L???Chloride - 102 mmol/L???Bicarbonate Level - 19 mmol/L???Anion Gap - 13???Glucose Level - 139 mg/dL???BUN - 12 mg/dL???Creatinine-Blood - 0.75 mg/dL???Estimated GFR Creatinine - 102 ML/MIN/1.73 M2???Calcium - 8.4 mg/dL Blood Culture (10/26/2023) ???Blood Culture Results - Preliminary report???Blood Culture Specimen Source - BLOOD Blood Culture Result (10/26/2023) ???Blood Culture Isolate 1 - Comment CBC (10/30/2023) ???WBC - 16.3 k/mm3???RBC - 4.07 m/mm3???Hgb - 12.4 Gm/dL???Hct - 37.2 %???MCV - 91.4 femtoliters???MCH - 30.5 pg???MCHC - 33.3 g/dL???Platelet Count - 325 k/mm3???RDW-SD - 47.2 femtoliters???MPV - 9.5 femtoliters???Nucleated RBC (Automated) - 0.0 #/100 WBC'S???Abs. NRBC - 0.0 k/mm3 CBC w/ Differential (10/26/2023) ???WBC - 19.2 k/mm3???RBC - 4.12 m/mm3???Hgb - 12.7 Gm/dL???Hct - 37.7 %???MCV - 91.5 femtoliters???MCH - 30.8 pg???MCHC - 33.7 g/dL???Platelet Count - 222 k/mm3???RDW-SD - 45.5 femtoliters???MPV - 10.6 femtoliters???Nucleated RBC (Automated) - 0.0 #/100 WBC'S???Abs. NRBC - 0.0 k/mm3???Abs. Neut - 15.5 k/mm3???Abs. Lymph - 1.5 k/mm3???Abs. [place] - 1.5 k/mm3???Abs. Eo - 0.1 k/mm3???Abs. Baso - 0.1 k/mm3???Neut % - 80.5 %???Lymph % - 7.7 %???[place] % - 7.7 %???Eos % - 0.6 %???Baso % - 0.3 %???Imm Gran - 3.2 %???Abs. Imm Gran - 0.6 k/mm3 CK (CREATINE KINASE) (10/26/2023) ???CK, Total - HEMOLYZED Comprehensive Metabolic Panel (10/26/2023) ???Sodium - 135 mmol/L???Potassium - HEMOLYZED???Chloride - 100 mmol/L???Bicarbonate Level - 21 mmol/L???Anion Gap - 14???Glucose Level - 117 mg/dL???BUN - 14 mg/dL???Creatinine-Blood - 0.83 mg/dL???Estimated GFR Creatinine - 99 ML/MIN/1.73 M2???Calcium - 8.4 mg/dL???Protein, Total - 5.5 Gm/dL???Albumin - 3.2 Gm/dL???AG Ratio - 1.4???Alkaline Phosphatase - 66 units/L???AST (SGOT) - 40 units/L???ALT (SGPT) - 62 units/L???Bilirubin, Total - 0.3 mg/dL GLUCOSE POC (10/31/2023) ???Glucose, POC - 137 mg/dL HOLD BLUE TUBE (10/28/2023) ???Hold Blue Top - SPECIMEN DISCARDED AFTER 4 HOURS. HOLD GEL TUBE (10/31/2023) ???Hold Gel Top - SPECIMEN DISCARDED AFTER 1 WEEK HOLD LAVENDER TUBE (10/31/2023) ???Hold Lavender Top - SPECIMEN DISCARDED AFTER 24 HOURS. INR (10/31/2023) ???INR - 1.5???Protime (PT) - 15.9 seconds Lactate Level (10/26/2023) ???Lactate - 2.1 mmol/L Urinalysis w/hold for Urine Culture (10/26/2023) ???Appear/Color, Urine - LIGHT YELLOW???Specific [place], Urine - 1.013???pH, Urine - 7.5???Albumin, Urine - TRACE???Glucose, Urine - 4+???Ketones, Urine - NEGATIVE???Bilirubin, Urine - NEGATIVE???Hemoglobin, Urine - 3+???Nitrite, Urine - NEGATIVE???Leukocyte, Urine - NEGATIVE???Urobilinogen - NORMAL? ?WBC's, Urine - 1 /HPF? ?RBC's, Urine - >182 /HPF? ?Squamous Epith - <1 /HPF? ?Mucus - SLIGHT???Hold Urine Culture - Testing available 48 hours from time of collection. Allergies (NKA means No Known Allergies) penicillin Flovent HFA Lantus SEROquel Ventolin HFA ZyrTEC gabapentin hydrOXYzine hydrochloride traZODone Problems Active Problems??(33) Atypical facial pain, left?? Bilateral arm pain?? Bilateral edema of lower extremity?? Bilateral lumbar radiculopathy?? Constipation?? Diastolic dysfunction?? DM (diabetes mellitus), type 2 with neurological complications?? Dyslipidemia?? Generalized anxiety disorder with panic attacks?? Hearing impairment?? History of left hip replacement?? HTN (hypertension)?? Insomnia?? Knee pain, bilateral?? Left elbow pain?? Lumbar herniated disc?? Lumbosacral radiculopathy?? Lumbosacral spondylosis without myelopathy?? Memory impairment of gradual onset?? Myofascial pain?? Obese class I?? Obesity (BMI 30-39.9)?? KERMIT (obstructive sleep apnea): bipap 2 liters oxygen?? Osteoarthritis of both knees?? Parkinson disease?? Peripheral sensory neuropathy?? Persistent moderate somatic symptom disorder with predominant pain?? Polyp of colon, adenomatous?? Pruritic dermatitis?? Recurrent major depression?? Sciatica?? Simvastatin-induced rhabdomyolysis-CPK remain elevated?? Spinal stenosis of lumbar region?? Education Materials Below is the list of Educational Leaflet Providered with your Discharge Instructions. [employer] Patient Education - Kidney Problems?? [employer] Patient Education - Treating Anxiety Disorders with Therapy?? Valuables and Belongings I fully understand and agree that [facility] accepts no responsibility for all my personal property including clothing, toilet articles, radios, jewelry, dentures, hearing aids, rings, money, or any other property that is in my possession or is brought to me after admission. I understand certain valuables may be placed in a hospital safe for a short period of time. I understand that the hospital is not liable for loss or damage due to accident, fire, or other natural occurrence while said property is in the safe. I accept full responsibility for any personal property that I keep with me, and will not hold the hospital responsible in case of loss or disappearance. I acknowledge that i have been encouraged to send valuables and belongings home. ?? No Valuables/Belongings: No valuables/belongings present Date for Pt to Sign Valuables/Belongings: 10/26/23 18:03:00 ?? Other Discharge Information ? Case Management Discharge Plan?? Discharge Plan?? Discharge Nursing Homes/Rehab Facilities: [facility] ?? Pulmonary Rehab Status?? Pulmonary Rehab Discharge Status?? CPAP/BiPAP Mask Type: Full CPAP/BiPAP Mask Size: Large Respiratory Rate: 18 br/min ? Common Emergency Awareness Tips IS IT A STROKE? Act FAST and Check for these signs: FACE Does the face look uneven? ARM Does one arm drift down? SPEECH Does their speech sound strange? TIME Call at any sign of stroke ?? Heart Attack Signs Chest discomfort: Most heart attacks involve discomfort in the center of the chest and lasts more than a few minutes, or goes away and comes back. It can feel like uncomfortable pressure, squeezing, fullness or pain. Discomfort in upper body: Symptoms can include pain or discomfort in one or both arms, back, neck, jaw or stomach. Shortness of breath: With or without discomfort. Other signs: Breaking out in a cold sweat, nausea, or lightheaded. Remember, MINUTES DO MATTER. If you experience any of these heart attack warning signs, call to get immediate medical attention! ?? Smoking can increase your chances of developing chronic health problems and can cause harmful effects to other family members in your house. If you smoke, you are strongly encouraged to quit. Please call [facility] [employer] at [phone] or [phone]) or log in to [email or web address] for referrals to smoking cessation programs. ?? 131 Suicide & Crisis Lifeline is available 09/01 if you or someone you know needs to find a reason to keep living. By calling 107 you'll be connected to a skilled, trained counselor at a crisis center in your area. INPATIENT DISCHARGE INSTRUCTIONS SIGNATURE MATT SCHUSTER Location:[facility] Registration Date and Time:10/26/2023 10:17 EDT Primary Care Physician: Dayo Castano MD, Attending Physician: Nilson PRATHER, Yomi, Lakisha LERMAMATT Roberts, have received the above patient education materials/instructions and have verbalized understanding. If ambulance or transport services are being used I further acknowledge being given a choice of service. ?? If you need to contact me, please call me at this number: . Patient/Security Investigator Name: Patient/Security Investigator Signature: Relationship to Patient: Witness Name/Signature: Date: * Wilbert Montero RN: PERFORM Event Display: Patient Education Leaflets Authored Date: [id number] Kidney Problems ?? 44223 Kidney Problems The kidneys may fail from reduced blood supply, damaged blood vessels or filtering units (nephrons), or a blocked urinary tract. Illnesses that affect the entire body, such as diabetes or high blood pressure, are the most common cause of kidney damage. Illnesses that harm the kidneys directly (suchas glomerulonephritis and polycystic disease) may also cause filtering problems. Kidney damage can be short-term (temporary) or lifelong (permanent), depending on what caused it. Normal urinary tract. Normal nephron. Problems with blood vessels An illness can damage blood vessels inside the kidneys. As a result, the nephrons get less blood, and pressure inside the kidneys can't be controlled. ?? Problems with nephrons Reduced blood supply or the wrong pressure can harm the nephrons. This makes them less able to remove wastes from the blood. As a result, the kidneys can???t maintain the correct balance of fluid andchemicals in the body. Waste products may be returned to the blood. Or vital chemicals and proteinsmay be lost in the urine. ?? Problems in the urinary tract A problem with the structure of the urinary tract may be present from or it may develop over time. The urinary tract can become blocked any place between the kidney and the tube that lets urinepass out of the body (the urethra). There are many reasons for such a blockage. These include kidney stones, scar tissue from past infections, or an enlarged prostate gland. Abnormal function of the urinary tract can also lead to damage to the kidney. For instance, there may be urine backflow from the ureter to the kidney. Or a damaged bladder muscle may lead to holding urine. If waste can???t leave the body, your health is at risk. ?? Last Reviewed Date: 2023 ?? [employer]. All rights reserved. This information is not intended as a substitute for professional medical care. Always follow your healthcare professional's instructions. ?? * Winston LOERA, Wilbert Webster: PERFORM Event Display: Patient Education Leaflets Authored Date: [id number] Treating Anxiety Disorders with Therapy ?? 52267 Treating Anxiety Disorders with Therapy If you have an anxiety disorder, you should know it can be treated. Therapy (also called counseling) is often a helpful treatment for anxiety disorders. With therapy, a trained therapist helps you face and learn to manage your anxiety. Therapy can be short-term or long-term. It is based on your needs. In some cases, medicine may also be prescribed with therapy. It may take time before you notice how much therapy is helping. But stick with it. With therapy, you can feel better. Cognitive behavioral therapy (CBT) Cognitive behavioral therapy (CBT) teaches you to manage anxiety. It does this by helping you understand how you think and act when you???re anxious. Research has shown CBT to work very well for anxiety disorders. CBT includes homework and activities. These build your skills to cope with anxiety step by step. CBT can be done in a group or one-on-one. It often takes place for a set number of sessions. CBT has two main parts: ??? Cognitive therapy. This??helps you identify the negative, irrational thoughts that occur with your anxiety. You???ll learn to replace these with more positive, realistic thoughts. ??? Behavioral therapy. This??helps you change how you react to anxiety. You???ll learncoping skills and methods for relaxing to help you better deal with anxiety. ?? Other types of therapy Other types of therapy may work better for you than CBT. Or, you may move from CBT to another form of therapy as your treatment needs change. You may meet with a therapist by yourself or in a group. Therapy can also help you work through things such as drug or alcohol dependence. These can make your anxiety worse. ?? Getting better takes time Therapy will help you feel better and teach you skills to help manage anxiety long-term. But changedoesn???t happen right away. It takes a commitment from you. And treatment only works if you learn to face the causes of your anxiety. So, you might feel worse before you feel better. This can sometimes make it hard to stick with it. But remember: Therapy can be a very effective treatment. The results will be worth it. ?? Helping yourself If anxiety is wearing you down, here are some things you can do to cope: ??? See your healthcare provider. They can rule out any physical problems that may cause your anxiety symptoms. ??? Learn moreabout anxiety disorders. Collect helpful online resources and books you can use during stressful periods. ??? Use stress management methods such as meditation ??? Attend online or in-person support groups. ??? Don???t fight your feelings. The more you worry about anxiety, the worse it can get. Instead, try to find what triggered your anxiety. Then try to put this threat in perspective. ??? Keep in mind that you can???t control everything. Change what you can. Let the rest take its course. ??? Get exercise. It???s a great way to relieve tension. It will help your body feel relaxed. ??? Examineyour life for sources of stress. Try to find ways to make changes. ??? Don't use caffeine or nicotine. These can make anxiety symptoms worse. ??? Don't use alcohol or unprescribed medicines for relief. They only make things worse over time. ?? Last Reviewed Date: 2022 ?? 7170-1614 [employer]. All rights reserved. This information is not intended as a substitute for professional medical care. Always follow your healthcare professional's instructions. ?? Patient Care team information Care Team Personnel Name: Dia José RN Position: [facility] RN Member Role: Primary Care Nurse Name: Maureen Bonilla Position: S RN Member Role: Primary Care Nurse Name: Casandra Parker Position: [facility] JUAN Office Staff Member Role: Lifetime Consulting Physician Name: Maureen Olivera LPN Position: [facility] RN Member Role: Primary Care Nurse Name: Quinten Duarte RN Position: S RN Member Role: Primary Care Nurse Name: Wilbert Montero RN Position: S RN Member Role: Primary Care Nurse Name: Dayo Castano MD Position: [facility] Physician - Primary Care Member Role: PCP Address: Address: [address] [place] [address]- Name: Chencho Dickinson MD Position: [facility] Renal MD Member Role: Lifetime Consulting Physician Address: Address: [address] [place] [address] [facility] [place] [address]- Name: Emani Mcpherson RN Position: S RN Member Role: Primary Care Nurse Name: Jacquelyn Licea RN Position: S RN Member Role: Primary Care Nurse Care Team Related Persons Name: RAFITA ZENG Address: home [address] [place], [place] Name: JARROD BRADFORD Address: home [address] [place] [address] Name: LOLA BRADFORD Address: home [address] [place] [address] Name: GOLDIE [place]ERMA Address: [place] [address] Name: HILARY LERMA Address: home [address] [place] [id number] Name: CASANDRA [place]ERMA Address: [place] [address] Name: KADE LERMA Address: home [address] [place] [id number] Name: KADE LERMA Address: home [address] [place] [id number]
--- OUTSIDE RECORDS SUMMARY | 2023-11-02 08:34 | XMS_ITS | Continuity of Care Document ---
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 Role Phone Dayo Castano MD Primary Care Physician Encounter [facility] Date(s): 08/15/23 - 10/01/[address] [address]- Attending Physician: Irwin Lu MD Admitting Physician: Irwin Lu MD Referring Physician: Dayo Castano MD Allergies, Adverse Reactions, Alerts Substance Reaction [...] influenza virus vaccine, inactivated 04/16/15 Give n [id number] 12y+ bivalent booster vax 02/21/23 Given SARS-CoV-2 (COVID-19) mRNA BNT-162b2 vac 1 06/01/21 Given SARS-CoV-2 (COVID-19) mRNA BNT-162b2 vac 11/07/20 Recorded SARS-CoV-2 (COVID-19) mRNA BNT-162b2 vac 10/17/20 Recorded zoster vaccine, inactivated 06/18/19 Recorded zoster vaccine, inactivated 06/17/19 Recorded zoster vaccine, inactivated 11/25/17 Recorded Influenza Vaccine (oldterm) 02/17/17 Recorded pneumococcal 23-valent vaccine 02/16/16 Given tetanus/diphtheria/pertussis, acel(Tdap) 11/25/14 Given 1Result Comment: DILUENT LOT#: [id number] EXP: 11/2022 MFG: FRESENSIUS Medications Albuterol (Eqv-ProAir HFA) 90 mcg/inh inhalation aerosol 2 puffs, Inhalation, Every 6 hours, please give pt whatver is covered by his insrance use with spacer chamber, # 18 Gm, 11 Refills, Maintenance, 08/07/23 14:38:00 EST, [facility]/pharmacy #[id number], Partial fill upon patient request if the prescription is for... Start Date: 08/07/23 Status: Ordered amitriptyline 100 mg oral tablet 1 tablet = 100 mg, By Mouth, Daily at bedtime, Rx'd by neurology ([facility]), # 30 tablet, 0 Refills, [...] 3 Refills, Maintenance, 04/04/23 8:44:00 EDT, Tablet, [facility]/pharmacy [...] 0 Refills, Maintenance, 09/13/23 12:18:00 EDT, Capsule, [facility]/pharmacy #[id number], Partial [...] Need length 99 months Please send to [facility], 01/21/21 13:20:00 EDT, Supply Start Date: 01/21/21 Status: Ordered carbidopa-levodopa 25 mg-100 mg oral tablet 1 tablet, By Mouth, 2 times a day, Rx'd by neurology at [facility], # 60 tablet, 0 Refills, Maintenance, 10/04/22 8:23:00 EDT, Tablet, Partial fill upon patient request if the prescription is for a schedule II opioid drug. Start Date: 10/04/22 Status: Ordered chlorthalidone 25 mg oral tablet 25 mg, 1, tablet, By Mouth, Daily in AM, Blood pressure, # 90 tablet, Refills 3, Tot. Refills 3, Maintenance, 04/04/23 8:45:00 EDT, Route to Pharmacy Electronically, [facility]/pharmacy #[id number], Partial [...] 10/06/23 14:26:00 EDT, 08/07/23 14:26:00 EST, Cream, [facility]/pharmacy #[id number], Partial [...] Gm, 5 Refills, Maintenance, 07/04/23 8:59:00 EST, [facility]/pharmacy #[id number], 30, [...] Daily at bedtime, Rx'd by neurology at [facility], 0 Refills, Maintenance, 10/04/22 8:24:00 EDT, Capsule, Partial fill upon patient request if the prescription is for a schedule II opioid drug. Start Date: 10/04/22 Status: Ordered loratadine 10 mg oral tablet 1, tablet, By Mouth, Daily, PRN, # 90 tablet, Refills 3, Tot. Refills 3, NEEDED FOR ALLERGIES, 04/04/23 8:42:00 EDT, Route to Pharmacy Electronically, [facility]/pharmacy #[id number], 183, cm, 04/04/23 8:24:00EDT, Height, 123.2, kg, 02/07/22 12:47:00 EDT, Dry... Start Date: 04/04/23 Status: Ordered Metamucil 3.4 gm/5.2 gm oral powder for reconstitution = 3.4 Gm, By Mouth, 3 times a day, PRN as needed for constipation, # 425 Gm, 11 Refills, Maintenance, 08/07/23 14:34:00 EST, REC Powder, [facility]/pharmacy #[id number], Partial fill upon patient request if the prescription is for a schedule II opioid drug., 183,... Start Date: 08/07/23 Status: Ordered metFORMIN 500 mg oral tablet 2 tablet, By Mouth, 2 times a day, FOR DIABETES., # 360 tablet, 3 Refills, Maintenance, 09/25/23 15:02:00 EDT, [id number], 183, cm, 08/22/23 13:24:00 EST, Height, 123.2, [...] # 40 gum, 0 Refills, [id number], 184, cm, 12/27/21 11:50:00 EDT, Height Start [...] Gm, 1 Refills, Maintenance, 04/04/23 8:46:00 EDT, [facility]/pharmacy #[id number], 14,DISSOLVE 17 GRAMS IN WATER & DRINK ONCE A DAY UNTIL BM,... Start Date: 04/04/23 Status: Ordered pregabalin 300 mg oral capsule 1 capsule = 300 mg, By Mouth, 2 times a day, Rx'd by neurology at [facility], # 60 capsule, 0 Refills, Maintenance, 10/04/22 8:24:00 EDT, Capsule, Partial fill upon patient request if the prescription is for a schedule II opioid drug. Start Date: 10/04/22 Status: Ordered primidone 50 mg oral tablet 100 mg, 2, tablet, By Mouth, 2 times a day, rx'd by neurology at [facility], # 120 tablet, Refills 0, [...] times a day, Rx'd by neurology at [facility], # 270 tablet, 0 Refills, Maintenance, [...] 14:39:00 EST, Aerosol, Route to Pharmacy Electronically, [id number], [facility]/pharmacy #[id number], 183, cm, 08/07/23 14:26:00 EST, [...] 11 Refills, Maintenance, 04/04/23 8:43:00 EDT, Tablet, [facility]/pharmacy [...] EDT, Route to Pharmacy Electronically, [facility], 183, cm, 08/22/23 13:24:00 EST, Height, 123.2, kg, 02/07/22 12:47:00 EDT, Dry Weight Start Date: 08/28/23 Status: Ordered Xopenex HFA 45 mcg/inh inhalation aerosol 2 puffs, Inhalation, Every 4 hours, PRN Wheezing/Shortness of Breath, replaces Ventolin due to reaction, # 1 each, 1 Refills, Maintenance, 02/15/23 11:23:00 EDT, Aerosol, [facility]/pharmacy #[id number], Partial fill upon patient request if the [...] provided increased discomfort related to nerves. 3Seeing [place] neurology and sleep. Given a trial of [...] Care Team Personnel Name: Olimpia Parker Position: [facility] JUAN Office Staff Member Role: Lifetime Consulting Physician Name: Dayo Castano MD Position: [facility] Physician - Primary Care Member Role: PCP Address: Address: [address] [place] [address]- Care Team Related Persons Name: JARROD BRADFORD Address: home [address] [place] [address] Name: LOLA BRADFORD Address: home [address] [place] [address] Name: GOLDIE LERMA Address: [place] [address] Name: OLIMPIA LERMA Address: [place] [address] Name: KADE LERMA Address: home [address] [place] [id number] Name: KADE LERMA Address: home [address] [place] [address]
--- OUTSIDE RECORDS SUMMARY | 2023-11-02 08:34 | XMS_ITS | Continuity of Care Document ---
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 Phone Contractor Krystal FERNANDEZ Primary Care Physician [phone] Encounter [facility] Date(s): 08/03/21 - 09/02/[address] [address]- Allergies, Adverse Reactions, Alerts Substance Reaction Severity [...] acel(Tdap) 11/25/14 Given 1Result Comment: DILUENT LOT#: [id number] EXP: 11/2022 MFG: FRESENSIUS Medications amitriptyline 100 mg oral tablet 1 tablet = 100 mg, By Mouth, Daily at bedtime, # 30 tablet, 3 Refills, Maintenance, 08/11/21 10:02:00 EST, Tablet, [facility]/pharmacy [...] Refills, Maintenance, 03/03/21 17:24:00 EDT, Tablet, [facility]/pharmacy #[id number], Partial fill upo... Start Date: 03/03/21 Status: Ordered aspirin 81 mg oral delayed release tablet 81 mg, 1, tablet, By Mouth, Daily, # 90 tablet, Refills 0, Tot. Refills 0, Maintenance, 01/01/21 11:26:00 EDT, Route to Pharmacy Electronically, [facility]/pharmacy #[id number], Partial [...] Need length 99 months Please send to [facility], 01/21/21 13:20:00 EDT, Supply Start Date: 01/21/21 Status: Ordered carbidopa-levodopa 25 mg-100 mg oral tablet 1 tablet, By Mouth, 3 times a day, Rx'd by Neurology at [facility] [place]/ Dr. Murphy, # 270 tablet, 0 Refills, Maintenance, 04/15/21 23:30:00 EDT, Tablet, Partial fill upon patient request if the prescription is for a schedule II opioid drug. Start Date: 04/15/21 Status: Ordered chlorthalidone 25 mg oral tablet 1, tablet, By Mouth, Daily, # 30 tablet, Refills 5, Route to Pharmacy Electronically, [facility], 184, cm, 03/30/21 16:08:00 EDT, Height, 123.27, kg, 06/25/19 13:22:00 EST, Dry Weight Start Date: 04/07/21 Status: Ordered Claritin 10 mg oral tablet 10 mg, 1, tablet, By Mouth, Daily, more sea necesario para alergia, # 30 tablet, Refills 5, Tot. Refills 5, Maintenance, 04/13/21 10:04:00 EDT, [facility] Refills, Maintenance, 03/03/21 17:36:00 EDT, Cream, [facility]/pharmacy [...] Refills, Maintenance, 01/11/21 15:23:00 EDT, Tablet, [facility]/pharmacy [...] Refills, Maintenance, 02/10/21 13:09:00 EDT, Ointment, [facility]/pharmacy #[id number], Partial fill upon patient request if the prescription is for a schedule II opioid drug., 1 application Top... Start Date: 02/10/21 Status: Ordered magnesium oxide 400 mg oral tablet 1 tablet = 400 mg, By Mouth, Daily, Rx'd by Neurology at [facility] [place]/ Dr. Murphy, 0 Refills, Maintenance, 04/15/21 23:30:00 [...] Refills, Maintenance, 03/03/21 17:29:00 EDT, Tablet, [facility]/pharmacy [...] Daily, # 90 capsule, 0 Refills, [facility], 184, cm, 06/14/21 11:01:00 EST, Height, 123.27, kg, 06/25/19 13:22:00 EST, Dry Weight Start Date: 06/23/21 Status: Ordered pregabalin 300 mg oral capsule 1 capsule = 300 mg, By Mouth, 2 times a day, PRN pain, one tab twice daily prn pain, # 60 capsule, 0 Refills, Maintenance, 06/29/21 15:41:00 EST, Capsule, [facility]/pharmacy #[id number], Partial fill upon patient request if the prescription is for a schedule II o... Start Date: 06/29/21 Stop Date: 07/29/21 Status: Ordered Shower Chair See Instructions, # 1 each, Refills 0, Tot. Refills 0, Maintenance, DX: M51. 26 please send to [facility], 01/21/21 13:20:00 EDT, Supply Start Date: 01/21/21 Status: Ordered sulindac 150 mg oral tablet See Instructions, TAKE 1 TABLET BY MOUTH TWICE A DAY NEEDED FOR PAIN, # 28 tablet, 0 Refills, Maintenance, [facility], 184, cm, 02/01/21 10:51:00 EDT, Height, 123.27, kg, 06/25/19 13:22:00 EST, Dry Weight Start Date: 02/01/21 Status: Ordered Tylenol Extra Strength 500 mg oral tablet 2 tablet = 1,000 mg, By Mouth, 3 times a day, PRN as needed for pain, # 100 tablet, 5 Refills, Maintenance, 07/26/21 9:43:00 EST, Tablet, [id number], Partial fill upon patient request if the [...] provided increased discomfort related to nerves. 3Seeing [place] neurology and sleep. Given a trial of [...]
--- OUTSIDE RECORDS SUMMARY | 2023-11-02 08:34 | XMS_ITS | Continuity of Care Document ---
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 Name Role Phone Ivone Oneil MD Primary Care Physician [phone] Encounter [facility] Date(s): 11/23/21 - 12/23/[address] [address]- Allergies, Adverse Reactions, Alerts Substance Reaction Severity [...] acel(Tdap) 11/25/14 Given 1Result Comment: DILUENT LOT#: [id number] EXP: 11/2022 MFG: FRESENSIUS Medications amitriptyline 100 [...] Need length 99 months Please send to [facility] [employer] [facility], 01/21/21 13:20:00 EDT, Supply Start Date: 01/21/21 Status: Ordered carbidopa-levodopa 25 mg-100 mg oral tablet 1 tablet, By Mouth, 3 times a day, [facility], # 270 tablet, 0 Refills, Maintenance, 04/15/21 23:30:00 EDT, Tablet, Partial fill upon patient request if the prescription is for a schedule II opioid drug. Start Date: 04/15/21 Status: Ordered chlorthalidone 25 mg oral tablet 1, tablet, By Mouth, Daily, # 30 tablet, Refills 5, Tot. Refills 5, 09/28/21 8:08:00 EDT, Route to Pharmacy Electronically, [facility]/pharmacy #[id number], 184, cm, 09/15/21 9:12:00 EDT, Height Start Date: 09/28/21 Status: Ordered clonazePAM 2 mg oral tablet See Instructions, 1 tablet by mouth only NEEDED for severe panic attack. Dispense: #20 tabs per 20d., # 20 tablet, 0 Refills, Maintenance, 08/18/21 15:21:00 EST, Tablet, [facility]/pharmacy #[id number], [...] Maintenance, 10/07/21 20:16:00 EDT, Cream, [facility]/pharmacy #[id number], Partial fill upon patient request if the prescription is for a schedule II opioid drug., 1 application Topically 3 ti... Start Date: 10/07/21 Status: Ordered cyanocobalamin 1000 mcg oral tablet 1,000 mcg, 1, tablet, By Mouth, Daily, # 90 tablet, Refills 11, Tot. Refills 11, Maintenance, 07/17/26 13:12:00 EST, Route to Pharmacy Electronically, [facility]/pharmacy #[id number], 184, cm, 07/26/21 9:11:00 EST, Height Start Date: 07/17/26 Stop Date: 07/01/29 Status: Ordered cyanocobalamin 1000 mcg oral tablet 1,000 mcg, 1, tablet, By Mouth, Daily, for 90 days, # 90 tablet, Refills 11, Tot. Refills 11, Hard Stop 07/17/26 13:12:00 EST, 08/02/23 13:12:00 EST, Route to Pharmacy Electronically, [facility]/pharmacy #[id number], 184, cm, 01/01/21 [...] # 90 tablet, 1 Refills, [facility], 184, cm, 11/15/21 9:55:00 EDT, Height Start Date: 12/06/21 Status: Ordered fluticasone 50 mcg/inh nasal spray See Instructions, USE 1 SPRAY IN EACH NOSTRIL EVERY MORNING, # 16 mL, 3 Refills, 01/29/21 9:11:00 EDT, [facility]/pharmacy #[id number], 30, USE 1 [...] Maintenance, 11/02/21 14:30:00 EDT, Ointment, [facility]/pharmacy #[id number], Partial fill upon patient request if the prescription is for a schedule II opioid drug., 1 application Top... Start Date: 11/02/21 Status: Ordered loratadine 10 mg oral tablet 1, tablet, By Mouth, Daily, PRN, # 90 tablet, Refills 1, NEEDED FOR ALLERGIES, Route to PharmacyElectronically, [id number], 184, cm, 10/18/21 13:37:00 EDT, Height Start Date: 10/22/21 Status: Ordered magnesium oxide 400 mg oral tablet 1 tablet = 400 mg, By Mouth, Daily, [facility] Dr[facility], 0 Refills, Maintenance, 04/15/21 23:30:00 [...] 10/28/21 11:13:00 EDT, REC Powder, [facility] [...] Refills, Maintenance, 09/16/2211:15:00 EDT, Tablet, [facility]/pharmacy #[id number], Partial f... Start Date: 09/15/21 Status: Ordered omega-3 polyunsaturated fatty acids ethyl esters 1000 mg oral capsule 1 capsule = 1,000 mg, By Mouth, 2 times a day, # 60 capsule, 11 Refills, Maintenance, 12/27/21 11:25:00 EDT, Capsule, [facility]/pharmacy #[id number], 1 capsule By [...] EDT, 01/01/21 11:25:00 EDT, Capsule, [facility]/pharmacy #[id number], 184, cm, 01/01/21 [...] 28 tablet, 0 Refills, Maintenance, [facility], 184, cm, 02/01/21 10:51:00 EDT, Height, 123.27, kg, 06/25/19 13:22:00 EST, Dry Weight Start Date: 02/01/21 Status: Ordered Tylenol Extra Strength 500 mg oral tablet 2 tablet = 1,000 mg, By Mouth, 3 times a day, PRN as needed for pain, # 100 tablet, 5 Refills, Maintenance, 12/07/21 10:44:00 EDT, Tablet, [facility]/pharmacy #[id number], Partial fill upon patient request if theprescription [...] provided increased discomfort related to nerves. 3Seeing [place] neurology and sleep. Given a trial of Tegretol 200 mg upto 2 tablets twice a day andadvised to continue with Lyrica 300 mg twice a day. Had some improvement of the facial pain with this regimen. 4Seeing [place] neurology and asleep. On 09/11/2018 started on [...]
--- OUTSIDE RECORDS SUMMARY | 2023-11-02 08:34 | XMS_ITS | Continuity of Care Document ---
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 Role Phone Contractor Krystal FERNANDEZ Primary Care Physician [facility]counter [facility] Date(s): 08/13/21 - 09/12/[address] [address]- Allergies, Adverse Reactions, Alerts Substance Reaction Severity [...] acel(Tdap) 11/25/14 Given 1Result Comment: DILUENT LOT#: [id number] EXP: 11/2022 MFG: FRESENSIUS Medications amitriptyline 100 mg oral tablet 1 tablet = 100 mg, By Mouth, Daily at bedtime, # 30 tablet, 3 Refills, Maintenance, 08/11/21 10:02:00 EST, Tablet, [facility]/pharmacy [...] Maintenance, 03/03/21 17:24:00 EDT, Tablet, [facility]/pharmacy #[id number], Partial fill upo... Start Date: 03/03/21 [...] 9:39:00 EDT, 09/07/21 9:39:00 EDT, Tablet, [facility]/pharmacy #[id number], g., 1 tablet By Mouth 2 [...] Need length 99 months Please send to [facility], 01/21/21 13:20:00 EDT, Supply Start Date: 01/21/21 Status: Ordered carbidopa-levodopa 25 mg-100 mg oral tablet 1 tablet, By Mouth, 3 times a day, [facility] [place] Dr. Murphy, # 270 tablet, 0 Refills, Maintenance, 04/15/21 23:30:00 EDT, Tablet, Partial fill upon patient request if the prescription is for a schedule II opioid drug. Start Date: 04/15/21 Status: Ordered chlorthalidone 25 mg oral tablet 1, tablet, By Mouth, Daily, # 30 tablet, Refills 5, Route to Pharmacy Electronically, [facility] STORE [id number], 184, cm, 03/30/21 16:08:00 EDT, Height, 123.27, kg, 06/25/19 13:22:00 EST, Dry Weight Start Date: 04/07/21 Status: Ordered Claritin 10 mg oral tablet 10 mg, 1, tablet, By Mouth, Daily, more sea necesario para alergia, # 30 tablet, Refills 5, Tot. Refills 5, Maintenance, 04/13/21 10:04:00 EDT, Route to Pharmacy Electronically, [facility]/pharmacy #[id number], 184, cm, 04/13/21 9:26:00 EDT, Height, 123.27, kg, 01... Start Date: 04/13/21 Status: Ordered clonazePAM 2 mg oral tablet See Instructions, 1 tablet by mouth only NEEDED for severe panic attack. Dispense: #20 tabs per 20d., # 20 tablet, 0 Refills, Maintenance, 08/18/21 15:21:00 EST, Tablet, [facility]/pharmacy [...] Maintenance, 03/03/21 17:36:00 EDT, Cream, [id number], 184, cm, 07/26/21 9:11:00 EST, Height [...] Maintenance, 01/11/21 15:23:00 EDT, Tablet, [facility]/pharmacy #[id number], Partial fill upon patient request if the prescription is for a schedule II opioid drug., 184, cm,... Start Date: 01/11/21 Status: Ordered escitalopram 20 mg oral tablet 1 tablet = 20 mg, By Mouth, Daily, # 30 tablet, 3 Refills, Maintenance, 07/13/21 12:26:00 EST, Tablet, [facility]/pharmacy #[id number], d/c citalopram 10 mg, 184, cm, 06/14/21 11:01:00 EST, Height Start Date: 07/13/21 Status: Ordered fluticasone 50 mcg/inh nasal spray See Instructions, USE 1 SPRAY IN EACH NOSTRIL EVERY MORNING, # 16 mL, 3 Refills, 01/29/21 9:11:00 EDT, [facility]/pharmacy #[id number], 30, USE 1 SPRAY IN EACH [...] Maintenance, 02/10/21 13:09:00 EDT, Ointment, [facility]/pharmacy #[id number], Partial fill upon patient request if the prescription is for a schedule II opioid drug., 1 application Top... Start Date: 02/10/21 Status: Ordered magnesium oxide 400 mg oral tablet 1 tablet = 400 mg, By Mouth, Daily, Rx'd by Neurology at [facility] [place]/ Dr. Murphy, 0 Refills, Maintenance, 04/15/21 23:30:00 [...] Maintenance, 03/03/21 17:29:00 EDT, Tablet, [facility]/pharmacy #[id number], Partial fill upon p... Start Date: 03/03/21 Status: Ordered omega-3 polyunsaturated fatty acids ethyl esters 1000 mg oral capsule 1 capsule = 1,000 mg, By Mouth, 2 times a day, # 60 capsule, 11 Refills, Maintenance, 12/27/21 11:25:00 EDT, Capsule, [facility] 11:25:00 EDT, 01/01/21 11:25:00 EDT, Capsule, [facility]/pharmacy #[id number], 184, cm, 01/01/21 10:56:00 EDT, Height, 123.27, kg, 06/25/19 13:22:00 EST, Dry W... Start Date: 01/01/21 Stop Date: 12/27/21 Status: Ordered omeprazole 20 mg oral enteric coated capsule 1 capsule, By Mouth, Daily, # 90 capsule, 0 Refills, [facility] ST[facility], 184, cm, 06/14/21 11:01:00 EST, Height, 123.27, [...] 28 tablet, 0 Refills, Maintenance, [facility], 184, cm, 02/01/21 10:51:00 EDT, Height, 123.27, [...] provided increased discomfort related to nerves. 3Seeing [place] neurology and sleep. Given a trial of Tegretol 200 mg upto 2 tablets twice a day andadvised to continue with Lyrica 300 mg twice a day. Had some improvement of the facial pain with this regimen. 4Seeing [place] neurology and asleep. On 09/11/2018 started on [...]
--- OUTSIDE RECORDS SUMMARY | 2023-11-02 08:34 | XMS_ITS | Continuity of Care Document ---
Author Organization [facility] Address [address] [place] [address]- Care Team Providers Care Tongue Lining Stitcher Name Role Phone Contractor Krystal FERNANDEZ Primary Care Physician Encounter [facility] Date(s): 01/20/21 - 02/19/[address] [address] Allergies, Adverse Reactions, Alerts Substance Reaction [...] 15:08:00 EDT, Route to Pharmacy Electronically, [facility]/pharmacy #[id number], 184, cm, 10/30/20 14:15:00 EDT, Height, 123.27, kg, 06/25/19 13:22:00 EST, Dry Weight Start Date: 10/30/20 Status: Ordered aspirin 81 mg oral delayed release tablet 81 mg, 1, tablet, By Mouth, Daily, # 90 tablet, Refills 0, Tot. Refills 0, Maintenance, 01/01/21 11:26:00 EDT, Route to Pharmacy Electronically, [facility]/pharmacy #[id number], Partial fill upon patient request if the prescription is for a schedule II opioid drug... Start Date: 01/01/21 Status: Ordered aspirin 81 mg oral tablet 1 tablet = 81 mg, By Mouth, Daily, # 90 tablet, 3 Refills, Maintenance, 01/15/20 9:51:00 EDT, Tablet, [facility]/pharmacy #[id number], 184, cm, 01/15/20 9:11:00 EDT, Height, [...] Need length 99 months Please send to [facility], 01/21/21 13:20:00 EDT, Supply Start Date: 01/21/21 Status: Ordered Claritin 10 mg oral tablet 10 mg, 1, tablet, By Mouth, Daily, # 30 tablet, Refills 3, Tot. Refills 3, Maintenance, 01/29/21 9:13:00 EDT, Route to Pharmacy Electronically, [facility]/pharmacy #[id number], 184, cm, 01/29/21 9:06:00 EDT, Height, [id number], 184, cm, 02/28/20 15:58:00 EDT, Height, [...] Refills, Maintenance, 01/01/21 11:24:00 EDT, Tablet, [facility]/pharmacy #[id number], 184, cm, 01/01/21 10:56:00 EDT, Height, 123.27, kg, 06/25/19 13:22:00 EST, Dry Weight Start Date: 01/01/21 Status: Ordered docusate sodium 100 mg oral tablet 1 tablet = 100 mg, By Mouth, 2 times a day, PRN for constipation, # 60 tablet, 5 Refills, Maintenance, 01/11/21 15:23:00 EDT, Tablet, [facility]/pharmacy #[id number], Partial fill upon patient request if the prescription is for a schedule II opioid drug., 184, cm,... Start Date: 01/11/21 Status: Ordered fluticasone 50 mcg/inh nasal spray See Instructions, USE 1 SPRAY IN EACH NOSTRIL EVERY MORNING, # 16 mL, 3 Refills, 01/29/21 9:11:00 EDT, [facility]/pharmacy #[id number], 30, USE 1 SPRAY IN EACH [...] Refills, Maintenance, 02/10/21 13:09:00 EDT, Ointment, [facility]/pharmacy #[id number], Partial fill upon patient request if the prescription is for a schedule II opioid drug., 1 application Top... Start Date: 02/10/21 Status: Ordered metFORMIN 500 mg oral tablet 1 tablet = 500 mg, By Mouth, Daily, with meals, # 90 tablet, 11 Refills, Maintenance, 01/01/21 11:24:00 EDT, Tablet, [facility]/pharmacy #[id number], 184, cm, 01/01/21 10:56:00 EDT, Height, 123.27, kg, 06/25/19 13:22:00 EST, Dry Weight Start Date: 01/01/21 Status: Ordered omega-3 polyunsaturated fatty acids ethyl esters 1000 mg oral capsule 1 capsule = 1,000 mg, By Mouth, 2 times a day, # 60 capsule, 11 Refills, Maintenance, 01/01/21 11:25:00 EDT, Capsule, [facility]/pharmacy #[id number], 1 capsule By Mouth 2 times a day,x30 days, 184, cm, 01/01/21 10:56:00 EDT, Height, 123.27, kg, 06/25/19 13:22:00... Start Date: 01/01/21 Stop Date: 12/27/21 Status: Ordered omeprazole 20 mg oral enteric coated capsule 1 capsule = 20 mg, By Mouth, Daily, # 30 capsule, 2 Refills, Maintenance, 02/06/20 16:40:00 EDT, ECCapsule, [facility]/pharmacy #[id number], 184, cm, 01/29/20 14:16:00 EDT, Height, [...] 28 tablet, 0 Refills, Maintenance, [facility], 184, cm, 02/01/21 10:51:00 EDT, Height, 123.27, [...] 0 Refills, Maintenance, 02/18/21 8:37:00 EDT, Tablet, [facility]/pharmacy #[id number], Partial fill upon patient request if the [...] provided increased discomfort related to nerves. 3Seeing [place] neurology and sleep. Given a trial of Tegretol 200 mg upto 2 tablets twice a day andadvised to continue with Lyrica 300 mg twice a day. Had some improvement of the facial pain with this regimen. 4Seeing [place] neurology and asleep. On 09/11/2018 started on [...]
--- OUTSIDE RECORDS SUMMARY | 2023-11-02 08:34 | XMS_ITS | Continuity of Care Document ---
Author Organization [facility] Address [address] [place] [address]- Care Team Providers Care Is Technician Name Role Phone Dayo Castano MD Primary Care Physician Encounter [facility] Date(s): 05/09/23 - 07/06/[address] [address]- Attending Physician: Not on Staff, Attending MD [...] influenza virus vaccine, inactivated 04/16/15 Give n [id number] 12y+ bivalent booster vax 02/21/23 Given SARS-CoV-2 (COVID-19) mRNA BNT-162b2 vac 1 06/01/21 Given SARS-CoV-2 (COVID-19) mRNA BNT-162b2 vac 11/07/20 Recorded SARS-CoV-2 (COVID-19) mRNA BNT-162b2 vac 10/17/20 Recorded zoster vaccine, inactivated 06/18/19 Recorded zoster vaccine, inactivated 06/17/19 Recorded zoster vaccine, inactivated 11/25/17 Recorded Influenza Vaccine (oldterm) 02/17/17 Recorded pneumococcal 23-valent vaccine 02/16/16 Given tetanus/diphtheria/pertussis, acel(Tdap) 11/25/14 Given 1Result Comment: DILUENT LOT#: [id number] EXP: 11/2022 MFG: FRESENSIUS Medications Albuterol (Eqv-ProAir [...] at bedtime, Rx'd by neurology ([facility]), # 30 tablet, 0 Refills, Maintenance, [...] 3 Refills, Maintenance, 04/04/23 8:44:00 EDT, Tablet, [facility]/pharmacy [...] Need length 99 months Please send to [facility], 01/21/21 13:20:00 EDT, Supply Start Date: 01/21/21 Status: Ordered carbidopa-levodopa 25 mg-100 mg oral tablet 1 tablet, By Mouth, 2 times a day, Rx'd by neurology at [facility], # 60 tablet, 0 Refills, Maintenance, 10/04/22 [...] Daily at bedtime, Rx'd by neurology at [facility], 0 Refills, Maintenance, 10/04/22 8:24:00 EDT, Capsule, [...] Refills, [facility] STORE [facility], 184, cm, 12/27/21 11:50:00 EDT, Height Start [...] times a day, Rx'd by neurology at [facility], # 60 capsule, 0 Refills, Maintenance, 10/04/22 8:24:00 EDT, Capsule, Partial fill upon patient request if the prescription is for a schedule II opioid drug. Start Date: 10/04/22 Status: Ordered primidone 50 mg oral tablet 100 mg, 2, tablet, By Mouth, 2 times a day, rx'd by neurology at [facility], # 120 tablet, Refills 0, Maintenance, [...] times a day, Rx'd by neurology at [facility], # 270 tablet, 0 Refills, Maintenance, 10/04/22 [...] 8:44:00 EDT, Aerosol, Route to Pharmacy Electronically, [id number], [facility]/pharmacy #[id number], 183, [...] provided increased discomfort related to nerves. 3Seeing [place] neurology and sleep. Given a trial of [...] Care Team Personnel Name: Olimpia Parker Position: [facility] Office Staff Member Role: Lifetime Consulting Physician Name: Dayo Castano MD Position: [facility] Physician - Primary Care Member Role: PCP Address: Address: [address] [place] [address]- Care Team Related Persons Name: JARROD BRADFORD Address: home [address] [place] [address] Name: LOLA BRADFORD Address: home [address] [place] [address] Name: GOLDIE LERMA Address: [place] [address] Name: OLIMPIA LERMA Address: [place] [address] Name: KADE LERMA Address: home [address] [facility] [facility] [address] [place] [address] Name: KADE LERMA Address: home [address] [facility] [facility] [address] [place] [address]
--- OUTSIDE RECORDS SUMMARY | 2023-11-02 08:35 | XMS_ITS | Continuity of Care Document ---
Author Organization [facility] Address [address] [place] [address]- Care Team Providers Care Overcoiler Name Role Phone Terence PRATHER, Azra Primary Care Physician [phone] Encounter [facility] Date(s): 05/06/20 - 06/12/[address] [address] Attending Physician: Shawn Hoff MD Referring Physician: Shawn Hoff MD Allergies, Adverse Reactions, Alerts Substance Reaction [...] Route to Pharmacy Electronically, [facility]/pharmacy #[id number], 184, cm, 01/15/20 9:11:00 EDT, Height, 123.27, [...] 0 Refills, Maintenance, [facility] STORE 10168, 30, USE 1 SPRAY IN EACH NOSTRIL [...] provided increased discomfort related to nerves. 3Seeing [place] neurology and sleep. Given a trial of [...]
--- OUTSIDE RECORDS SUMMARY | 2023-11-02 08:35 | XMS_ITS | Continuity of Care Document ---
Author Organization [facility] Address [address] [place] [address]- Care Team Providers Care Marine Operations Coordinator Name Role Phone Ivone Oneil MD Primary Care Physician [phone] Encounter [facility] Date(s): 08/24/22 - 09/23/[address] [address]- Allergies, Adverse Reactions, Alerts Substance Reaction Severity [...] acel(Tdap) 11/25/14 Given 1Result Comment: DILUENT LOT#: [id number] EXP: 11/2022 MFG: FRESENSIUS Medications amitriptyline 100 mg oral tablet 1 tablet = 100 mg, By Mouth, Daily at bedtime, # 30 tablet, 3 Refills, Maintenance, 12/27/21 12:09:00 EDT, Tablet, [facility]/pharmacy #[id number], Partial fill upon patient request [...] 1 Refills, Maintenance, 05/13/22 14:40:00 EST, Tablet, [facility]/pharmacy #[id number], Partial fill upon patient request [...] length 99 months Please send to [place] [facility], 01/21/21 13:20:00 EDT, Supply Start [...] 0 Refills, Maintenance, 08/18/21 15:21:00 EST, Tablet, [facility]/pharmacy #[id number], Partial fill upon patient request [...] 07/17/26 13:12:00 EST, Route to Pharmacy Electronically, [facility]/pharmacy #[id number], 184, cm, 07/26/21 9:11:00 EST, Height Start Date: 07/17/26 Stop Date: 07/01/29 Status: Ordered cyanocobalamin 1000 mcg oral tablet 1,000 mcg, 1, tablet, By Mouth, Daily, for 90 days, # 90 tablet, Refills 11, Tot. Refills 11, Hard Stop 07/17/26 13:12:00 EST, 08/02/23 13:12:00 EST, Route to Pharmacy Electronically, [facility]/pharmacy #[id number], 184, cm, 01/01/21 10:56:00 EDT, Height, 123.27,... Start Date: 08/02/23 Stop Date: 07/17/26 Status: Ordered cyanocobalamin 1000 mcg oral tablet 1,000 mcg, 1, tablet, By Mouth, Daily, # 90 tablet, Refills 1, Tot. Refills 1, Maintenance, 07/01/29 13:12:00 EST, [id number] 183, cm, 08/22/22 8:28:00 EST,Height, [...] Gm, 2 Refills, Maintenance, 07/28/22 8:54:00 EST, [facility] STORE [facility], 30, APPLY TOPICALLY TO AFFECTED ARE TWICE A DAY NEEDED FOR PAIN, 183, cm, 07/07/22 10:54:00 E... Start Date: 07/28/22 Status: Ordered empagliflozin 10 mg oral tablet 1 tablet = 10 mg, By Mouth, Daily in AM, # 30 tablet, 2 Refills, Maintenance, 08/23/22 8:44:00 EST,Tablet, [facility]/pharmacy #[id number], Partial fill upon patient request if the [...] 2 Refills, Maintenance, 08/23/22 8:44:00 EST, Tablet, [facility]/pharmacy #[id number], Label in frisian, cetrizine not effective, 1 tablet By Mouth Daily in AM, 183, cm, 08/22/22 8:28:00 EST, Height, 123.2, kg,... Start Date: 08/23/22 Status: Ordered loratadine 10 mg oral tablet 1, tablet, By Mouth, Daily, PRN, # 90 tablet, Refills 1, NEEDED FOR ALLERGIES, Route to PharmacyElectronically, [facility] ST[facility] [address]47, 184, cm, 10/18/21 13:37:00 EDT, Height Start Date: 10/22/21 Status: Ordered magnesium oxide 400 mg oral tablet 1 tablet = 400 mg, By Mouth, Daily, [facility] Dr. uMrphy, 0 Refills, Maintenance, 04/15/21 23:30:00 EDT, Partial fill upon patient request if the prescription is for a schedule II opioid drug. Start Date: 04/15/21 Status: Ordered Metamucil 3.4 gm/5.2 gm oral powder for reconstitution = 3.4 Gm, By Mouth, 3 times a day, PRN as needed for constipation, # 425 Gm, 11 Refills, Maintenance, 09/12/22 20:51:00 EDT, REC Powder, [facility]/pharmacy #[id number], Partial fill upon patient request [...] tablet, 3 Refills, Maintenance, 09/16/2211:15:00 EDT, Tablet, [facility]/pharmacy #[id number], Partial f... Start Date: 09/15/21 Status: Ordered Nicotine 2 mg gum See Instructions, CHEW 1 PIECE OF GUM EVERY 2 HOURS NEEDED FOR SMOKING CESSATION, # 40 gum, 0 Refills, [id number], 184, cm, 12/27/21 11:50:00 EDT, Height Start [...] a day, # 180 capsule, 3 Refills, [facility], 90, TAKE 1 CAPSULE BY MOUTH TWICE A DAY, 183, cm, 02/08/22 6:42:00 EDT, Height, 123.2, kg, 02/07/22 12:47:00 EDT, Dry Weight Start Date: 02/09/22 Status: Ordered omeprazole 20 mg oral enteric coated capsule 1 capsule, By Mouth, Daily, # 90 capsule, 0 Refills, Maintenance, 09/09/22 8:09:00 EDT, [facility]/pharmacy #[id number], 183, cm, 09/07/22 10:39:00 EDT, [...] Gm, 1 Refills, Maintenance, 08/31/22 9:06:00 EDT, [facility]/pharmacy #[id number], 14,DISSOLVE 17 GRAMS IN WATER & DRINK ONCE A DAY UNTIL BM,... Start Date: 08/31/22 Status: Ordered pregabalin 300 mg oral capsule 1 capsule = 300 mg, By Mouth, 2 times a day, PRN pain, one tab twice daily prn pain, # 60 capsule, 0 Refills, Maintenance, 06/29/21 15:41:00 EST, Capsule, [facility]/pharmacy #[id number], Partial fill upon patient request if the prescription is for a schedule II o... Start Date: 06/29/21 Stop Date: 07/29/21 Status: Ordered primidone 50 mg oral tablet 100 mg, 2, tablet, By Mouth, 3 times a day, Rx'd by Neurology at [facility]/ Dr. Murphy, Refills 0, [...] 26 please send to [facility], 08/08/22 15:41:00 EST, Supply Start Date: 08/08/22 Status: Ordered Symbicort 160mcg/4.5mcg Inhaler 2, puffs, Inhalation, 2 times a day, # 6 Gm, Refills 0, Tot. Refills 0, Maintenance, 12/27/21 12:43:00 EDT, Aerosol, Route to Pharmacy Electronically, [id number], [facility]/pharmacy #[id number], 184, cm, 12/27/21 11:50:00 EDT, [...] Refills, Maintenance, 03/15/22 14:29:00 EDT, [facility], 183, cm, 02/08/22 6:42:00 EDT, Height, 123.2, [...] provided increased discomfort related to nerves. 3Seeing [place] neurology and sleep. Given a trial of Tegretol 200 mg upto 2 tablets twice a day andadvised to continue with Lyrica 300 mg twice a day. Had some improvement of the facial pain with this regimen. 4Seeing [place] neurology and asleep. On 09/11/2018 started on [...] Care Team Personnel Name: Casandra Parker Position: [facility] Office Staff Member Role: Lifetime Consulting Physician Name: Ivone Oneil MD Position: [facility] Primary Care Physician Member Role: PCP Address: Address: [address] [place], [place] [id number]- Care Team Related Persons Name: SUZETTE YARAJOSEPHLinda Address: home [address] [place] [address] Name: LOLA BRADFORD Address: home [address] [place] [address] Name: GOLDIE LERMA Address: [place] [address] Name: CASANDRA LERMA Address: [place] [address] Name: KADE LERMA Address: home [address] [place] [address] Name: KADE LERMA Address: home [address] [place] [id number]
--- OUTSIDE RECORDS SUMMARY | 2023-11-02 08:35 | XMS_ITS | Continuity of Care Document ---
Author Organization [facility] Address [address] [place] [address]- Care Team Providers Care Drill Rig Operator Name Role Phone Ivone Oneil MD Primary Care Physician [id number] Date(s): 08/22/22 - 10/27/[address] [address]- Attending Physician: Not on Staff, Attending MD [...] acel(Tdap) 11/25/14 Given 1Result Comment: DILUENT LOT#: [id number] EXP: 11/2022 MFG: FRESENSIUS Medications Aripiprazole 2 [...] 1 Refills, Maintenance, 05/13/22 14:40:00 EST, Tablet, [facility]/pharmacy #[id number], Partial fill upon patient request if the [...] Need length 99 months Please send to [facility], 01/21/21 13:20:00 EDT, Supply Start Date: 01/21/21 [...] 08/23/22 8:42:00 EST, [facility] Pharmacy Electronically, [facility] [...] 07/01/29 13:12:00 EST, Route to Pharmacy Electronically, [facility]/pharmacy #[id number], 183, cm, 08/22/22 8:28:00 [...] Refills, Maintenance, 07/28/22 8:54:00 EST, [id number], 30, APPLY TOPICALLY TO AFFECTED ARE TWICE A DAY NEEDED FOR PAIN, 183, cm, 07/07/22 10:54:00 E... Start Date: 07/28/22 Status: Ordered empagliflozin 10 mg oral tablet 1 tablet = 10 mg, By Mouth, Daily in AM, # 30 tablet, 2 Refills, Maintenance, 08/23/22 8:44:00 EST,Tablet, [facility]/pharmacy #[id number], Partial fill upon patient request if the [...] 2 Refills, Maintenance, 08/23/22 8:44:00 EST, Tablet, [facility]/pharmacy #[id number], Label in albanian, cetrizine not effective, 1 tablet By Mouth Daily in AM, 183, cm, 08/22/22 8:28:00 EST, Height, 123.2, kg,... Start Date: 08/23/22 Status: Ordered loratadine 10 mg oral tablet 1, tablet, By Mouth, Daily, PRN, # 90 tablet, Refills 1, NEEDED FOR ALLERGIES, Route to PharmacyElectronically, [id number], 184, cm, 10/18/21 13:37:00 EDT, Height Start Date: 10/22/21 Status: Ordered Metamucil 3.4 gm/5.2 gm oral powder for reconstitution = 3.4 Gm, By Mouth, 3 times a day, PRN as needed for constipation, # 425 Gm, 11 Refills, Maintenance, 09/12/22 20:51:00 EDT, REC Powder, [facility]/pharmacy #[id number], Partial fill upon patient request if the prescription is for a schedule II opioid drug., 183,... Start Date: 09/12/22 Status: Ordered metFORMIN 500 mg oral tablet 2 tablet = 1,000 mg, By Mouth, 2 times a day, For diabetes, # 360 tablet, 3 Refills, Maintenance, 10/04/22 18:03:00 EDT, Tablet, [facility]/pharmacy #[id number], Partial [...] SMOKING CESSATION, # 40 gum, 0 Refills, [facility], 184, cm, 12/27/21 11:50:00 EDT, Height Start [...] # 180 capsule, 3 Refills, [facility], 90, TAKE 1 CAPSULE BY MOUTH TWICE [...] 12:43:00 EDT, Aerosol, Route to Pharmacy Electronically, [id number], [facility]/pharmacy #[id number], 184, cm, 12/27/21 11:50:00 [...] Refills, Maintenance, 03/15/22 14:29:00 EDT, [facility], 183, cm, 02/08/22 6:42:00 EDT, Height, 123.2, [...] provided increased discomfort related to nerves. 3Seeing [place] neurology and sleep. Given a trial of Tegretol 200 mg upto 2 tablets twice a day andadvised to continue with Lyrica 300 mg twice a day. Had some improvement of the facial pain with this regimen. 4Seeing [place] neurology and asleep. On 09/11/2018 started on [...] Care Team Personnel Name: Olimpia Parker Position: [facility] Office Staff Member Role: Lifetime Consulting Physician Name: Ivone Oneil MD Position: [facility] Primary Care Physician Member Role: PCP Address: Address: [address] [place] [address]- Care Team Related Persons Name: JARROD BRADFORD Address: home [address] [place] [address] Name: LOLA BRADFORD Address: home [address] [place] [address] Name: GOLDIE LERMA Address: [place] [address] Name: OLIMPIA LERMA Address: [place] [address] Name: KADE LERMA Address: home [address] [place] [address] Name: KADE LERMA Address: home [address] [place] [address]
--- OUTSIDE RECORDS SUMMARY | 2023-11-02 08:35 | XMS_ITS | Continuity of Care Document ---
Author Organization [facility] Address [address] [place] [address]- Care Team Providers Care Occupational Therapy Professor Name Role Phone Dayo Castano MD Primary Care Physician [phone] Encounter [facility] Date(s): 08/15/23 - 09/14/[address] [address]- Allergies, Adverse Reactions, Alerts Substance Reaction Severity [...] influenza virus vaccine, inactivated 04/16/15 Give n [id number] 12y+ bivalent booster vax 02/21/23 Given SARS-CoV-2 (COVID-19) mRNA BNT-162b2 vac 1 06/01/21 Given SARS-CoV-2 (COVID-19) mRNA BNT-162b2 vac 11/07/20 Recorded SARS-CoV-2 (COVID-19) mRNA BNT-162b2 vac 10/17/20 Recorded zoster vaccine, inactivated 06/18/19 Recorded zoster vaccine, inactivated 06/17/19 Recorded zoster vaccine, inactivated 11/25/17 Recorded Influenza Vaccine (oldterm) 02/17/17 Recorded pneumococcal 23-valent vaccine 02/16/16 Given tetanus/diphtheria/pertussis, acel(Tdap) 11/25/14 Given 1Result Comment: DILUENT LOT#: [id number] EXP: 11/2022 MFG: FRESENSIUS Medications Albuterol (Eqv-ProAir [...] Need length 99 months Please send to [facility], 01/21/21 13:20:00 EDT, Supply Start Date: 01/21/21 Status: Ordered carbidopa-levodopa 25 mg-100 mg oral tablet 1 tablet, By Mouth, 2 times a day, Rx'd by neurology at [facility], # 60 tablet, 0 Refills, [...] 04/04/23 8:45:00 EDT, Route to Pharmacy Electronically, [facility]/pharmacy #[id number], Partial fill upon [...] 10/06/23 14:26:00 EDT, 08/07/23 14:26:00 EST, Cream, [facility]/pharmacy #[id number], Partial fill upon [...] Gm, 5 Refills, Maintenance, 07/04/23 8:59:00 EST, [facility]/pharmacy #[id number], 30, APPLY TOPICALLY [...] Daily at bedtime, Rx'd by neurology at [facility], 0 Refills, Maintenance, 10/04/22 8:24:00 EDT, Capsule, Partial fill upon patient request if the prescription is for a schedule II opioid drug. Start Date: 10/04/22 Status: Ordered loratadine 10 mg oral tablet 1, tablet, By Mouth, Daily, PRN, # 90 tablet, Refills 3, Tot. Refills 3, NEEDED FOR ALLERGIES, 04/04/23 8:42:00 EDT, Route to Pharmacy Electronically, [facility]/pharmacy #[id number], 183, cm, 04/04/23 8:24:00EDT, Height, 123.2, kg, 02/07/22 12:47:00 EDT, Dry... Start Date: 04/04/23 Status: Ordered Metamucil 3.4 gm/5.2 gm oral powder for reconstitution = 3.4 Gm, By Mouth, 3 times a day, PRN as needed for constipation, # 425 Gm, 11 Refills, Maintenance, 08/07/23 14:34:00 EST, REC Powder, [facility]/pharmacy #[id number], Partial fill upon [...] SMOKING CESSATION, # 40 gum, 0 Refills, [facility], 184, cm, 12/27/21 11:50:00 EDT, Height Start [...] Stop 03/29/24 8:46:00 EDT, 04/04/23 8:46:00 EDT, [facility]/pharmacy #[id number], 1 capsule By Mouth 2 times a day,x90 days, 183, cm, 04/04/23 8:24:00 EDT, Height, 123.2, kg, 082... Start Date: 04/04/23 Stop Date: 03/29/24 Status: Ordered omeprazole 20 mg oral enteric coated capsule 1 capsule, By Mouth, Daily, # 90 capsule, 3 Refills, Maintenance, 04/04/23 8:46:00 EDT, [facility]/pharmacy #[id number], 183, cm, 04/04/23 [...] Gm, 1 Refills, Maintenance, 04/04/23 8:46:00 EDT, [facility]/pharmacy #[id number], 14,DISSOLVE 17 GRAMS IN WATER & DRINK ONCE A DAY UNTIL BM,... Start Date: 04/04/23 Status: Ordered pregabalin 300 mg oral capsule 1 capsule = 300 mg, By Mouth, 2 times a day, Rx'd by neurology at [facility], # 60 capsule, 0 Refills, [...] times a day, Rx'd by neurology at [facility], # 270 tablet, [...] 14:39:00 EST, Aerosol, Route to Pharmacy Electronically, [id number], [facility]/pharmacy #[id number], 183, cm, 08/07/23 [...] 11 Refills, Maintenance, 04/04/23 8:43:00 EDT, Tablet, [facility]/pharmacy #[id number], Partial fill upon patient request if theprescription is for a schedule II opioid drug., 183... Start Date: 04/04/23 Status: Ordered valsartan 320 mg oral tablet 1 tablet, By Mouth, Daily, blood pressure, # 90 tablet, 3 Refills, Maintenance, 04/04/23 8:46:00 EDT, [facility]/pharmacy #[id number], 183, cm, 04/04/23 8:24:00 EDT, Height, 123.2, kg, 02/07/22 12:47:00 EDT, Dry Weight Start Date: 04/04/23 Status: Ordered Vitamin B-12 1000 mcg oral tablet 1, tablet, By Mouth, Daily, # 90 tablet, Refills 1, Maintenance, 08/28/23 13:12:00 EDT, Route to Pharmacy Electronically, [facility], 183, cm, 08/22/23 13:24:00 EST, Height, 123.2, kg, 02/07/22 12:47:00 EDT, Dry Weight Start Date: 08/28/23 Status: Ordered Xopenex HFA 45 mcg/inh inhalation aerosol 2 puffs, Inhalation, Every 4 hours, PRN Wheezing/Shortness of Breath, replaces Ventolin due to reaction, # 1 each, 1 Refills, Maintenance, 02/15/23 11:23:00 EDT, [facility]erosol, [id number], Partial fill upon patient request if the [...] provided increased discomfort related to nerves. 3Seeing [place] neurology and sleep. Given a trial of [...] Care Team Personnel Name: Casandra Parker Position: [facility] Office Staff Member Role: Lifetime Consulting Physician Name: Dayo Castano MD Position: [facility] Physician - Primary Care Member Role: PCP Address: Address: [address] [place] [address]- [place] Care Team Related Persons Name: JOSIAS BRADFORDLinda Address: home [address] [place] [address] Name: MURRAYYAHAIRALOLA Roberts Address: home [address] [place] [address] Name: GOLDIE LERMA Address: [place] [address] Name: CASANDRA LERMA Address: [place] [address] Name: KADE LERMA Address: home [address] [place] [id number] Name: KADE LERMA Address: home [address] [place] [address]
--- OUTSIDE RECORDS SUMMARY | 2023-11-02 08:35 | XMS_ITS | Continuity of Care Document ---
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 Start Date: 03/03/21 Status: Ordered aspirin 81 mg oral delayed release tablet 81 mg, 1, tablet, By Mouth, Daily, # 90 tablet, Refills 0, Tot. Refills 0, Maintenance, 01/01/21 11:26:00 EDT, Route to Pharmacy Electronically, [facility]/pharmacy #[id number], Partial fill upon patient request if [...] Need length 99 months Please send to [facility], 01/21/21 13:20:00 EDT, Supply Start Date: 01/21/21 Status: Ordered carbidopa-levodopa 25 mg-100 mg oral tablet 1 tablet, By Mouth, 3 times a day, Rx'd by Neurology at [facility]/ Dr. Murphy, # 270 tablet, 0 Refills, Maintenance, 04/15/21 23:30:00 EDT, Tablet, Partial fill upon patient request if the prescription is for a schedule II opioid drug. Start Date: 04/15/21 Status: Ordered chlorthalidone 25 mg oral tablet 1, tablet, By Mouth, Daily, # 30 tablet, Refills 5, Route to Pharmacy Electronically, [id number], 184, cm, 03/30/21 16:08:00 EDT, Height, 123.27, kg, 06/25/19 13:22:00 EST, Dry Weight Start Date: 04/07/21 Status: Ordered Claritin 10 mg oral tablet 10 mg, 1, tablet, By Mouth, Daily, more sea necesario para alergia, # 30 tablet, Refills 5, Tot. Refills 5, Maintenance, 04/13/21 10:04:00 EDT, Route to Pharmacy Electronically, [facility]/pharmacy #[id number], 184, cm, 04/13/21 9:26:00 EDT, Height, 123.27, kg, 01... Start Date: 04/13/21 Status: Ordered clonazePAM 2 mg oral tablet 1 tablet = 2 mg, By Mouth, Daily, # 20 tablet, 0 Refills, Maintenance, 04/22/21 15:54:00 EDT, [facility]/pharmacy #[id number], Partial fill upon patient request if [...] Refills, Maintenance, 03/03/21 17:36:00 EDT, Cream, [facility]/pharmacy #[id number], Partial fill upon patient request if the prescription is for a schedule II opioid drug., 1 application Topically 3 ti... Start Date: 03/03/21 Status: Ordered cyanocobalamin 1000 mcg oral tablet 1,000 mcg, 1, tablet, By Mouth, Daily, # 90 tablet, Refills 11, Tot. Refills 11, Maintenance, 08/02/23 13:12:00 EST, Route to Pharmacy Electronically, [facility]/pharmacy #[id number], 184, cm, 01/01/21 10:56:00 EDT, Height, [...] Refills, Maintenance, 01/11/21 15:23:00 EDT, Tablet, [facility]/pharmacy #[id number], Partial fill upon patient request if the prescription is for a schedule II opioid drug., 184, cm,... Start Date: 01/11/21 Status: Ordered escitalopram 5 mg oral tablet 1 tablet = 5 mg, By Mouth, Daily, This is a decrease in dose, # 14 tablet, 0 Refills, Maintenance, 04/05/21 15:54:00 EDT, Tablet, [facility]/pharmacy #[id number], Partial fill upon patient request if the prescription is for a schedule II opioid drug., 184, cm, ... Start Date: 04/05/21 Stop Date: 04/19/21 Status: Ordered fluticasone 50 mcg/inh nasal spray See Instructions, USE 1 SPRAY IN EACH NOSTRIL EVERY MORNING, # 16 mL, 3 Refills, 01/29/21 9:11:00 EDT, [facility]/pharmacy #[id number], 30, USE 1 SPRAY IN EACH [...] Refills, Maintenance, 02/10/21 13:09:00 EDT, Ointment, [facility]/pharmacy #[id number], Partial fill upon patient request if the prescription is for a schedule II opioid drug., 1 application Top... Start Date: 02/10/21 Status: Ordered magnesium oxide 400 mg oral tablet 1 tablet = 400 mg, By Mouth, Daily, Rx'd by Neurology at [facility] [place]/ Dr. Murphy, 0 Refills, Maintenance, 04/15/21 23:30:00 [...] Refills, Maintenance, 03/03/21 17:29:00 EDT, Tablet, [facility]/pharmacy #[id number], Partial fill upon p... Start Date: 03/03/21 Status: Ordered omega-3 polyunsaturated fatty acids ethyl esters 1000 mg oral capsule 1 capsule = 1,000 mg, By Mouth, 2 times a day, # 60 capsule, 11 Refills, Maintenance, 01/01/21 11:25:00 EDT, Capsule, [facility]/pharmacy #[id number], 1 capsule By Mouth 2 times [...] Maintenance, DX: M51. [id number] please send to [facility], 01/21/21 13:20:00 EDT, Supply Start Date: 01/21/21 Status: Ordered sulindac 150 mg oral tablet See Instructions, TAKE 1 TABLET BY MOUTH TWICE A DAY NEEDED FOR PAIN, # 28 tablet, 0 Refills, Maintenance, [facility], 184, cm, 02/01/21 10:51:00 EDT, Height, 123.27, [...] provided increased discomfort related to nerves. 3Seeing [place] neurology and sleep. Given a trial of Tegretol 200 mg upto 2 tablets twice a day andadvised to continue with Lyrica 300 mg twice a day. Had some improvement of the facial pain with this regimen. 4Seeing [place] neurology and asleep. On 09/11/2018 started on [...]
--- OUTSIDE RECORDS SUMMARY | 2023-11-02 08:35 | XMS_ITS | Continuity of Care Document ---
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 Name Role Phone Contractor Krystal FERNANDEZ Primary Care Physician [phone] Encounter [facility] Date(s): 05/04/21 - 06/03/[address] [address]- Allergies, Adverse Reactions, Alerts Substance Reaction Severity [...] acel(Tdap) 11/25/14 Given 1Result Comment: DILUENT LOT#: [id number] EXP: 11/2022 MFG: FRESENSIUS Medications amitriptyline 100 mg oral tablet 1 tablet = 100 mg, By Mouth, Daily at bedtime, # 30 tablet, 3 Refills, Maintenance, 04/13/21 10:02:00 EDT, Tablet, [facility]/pharmacy #[id number], [...] 3 Refills, Maintenance, 03/03/21 17:24:00 EDT, Tablet, [facility]/pharmacy #[id number], Partial fill upo... Start Date: 03/03/21 Status: Ordered aspirin 81 mg oral delayed release tablet 81 mg, 1, tablet, By Mouth, Daily, # 90 tablet, Refills 0, Tot. Refills 0, Maintenance, 01/01/21 11:26:00 EDT, Route to Pharmacy Electronically, [facility]/pharmacy #[id number], Partial fill [...] Need length 99 months Please send to [facility], 01/21/21 13:20:00 EDT, Supply Start Date: 01/21/21 Status: Ordered carbidopa-levodopa 25 mg-100 mg oral tablet 1 tablet, By Mouth, 3 times a day, Rx'd by Neurology at [facility]/ Dr. Murphy, # 270 tablet, 0 Refills, Maintenance, 04/15/21 23:30:00 EDT, Tablet, Partial fill upon patient request if the prescription is for a schedule II opioid drug. Start Date: 04/15/21 Status: Ordered chlorthalidone 25 mg oral tablet 1, tablet, By Mouth, Daily, # 30 tablet, Refills 5, Route to Pharmacy Electronically, [facility] 409[facility], 184, cm, 03/30/21 16:08:00 EDT, Height, 123.27, kg, 06/25/19 13:22:00 EST, Dry Weight Start Date: 04/07/21 Status: Ordered Claritin 10 mg oral tablet 10 mg, 1, tablet, By Mouth, Daily, more sea necesario para alergia, # 30 tablet, Refills 5, Tot. Refills 5, Maintenance, 04/13/21 10:04:00 EDT, Route to Pharmacy Electronically, [facility]/pharmacy #[id number], 184, cm, 04/13/21 9:26:00 EDT, Height, 123.27, kg, 01... Start Date: 04/13/21 Status: Ordered clonazePAM 2 mg oral tablet See Instructions, 1 tablet by mouth only NEEDED for severe panic attack. Dispense: #20 tabs per 30d., # 20 tablet, 0 Refills, Maintenance, 06/01/21 10:59:00 EST, Tablet, [facility]/pharmacy #[id number], Partial [...] 0 Refills, Maintenance, 03/03/21 17:36:00 EDT, Cream, [facility]/pharmacy #[id number], Partial fill [...] 5 Refills, Maintenance, 01/11/21 15:23:00 EDT, Tablet, [facility]/pharmacy #[id number], Partial fill upon patient request if the prescription is for a schedule II opioid drug., 184, cm,... Start Date: 01/11/21 Status: Ordered escitalopram 10 mg oral tablet 1 tablet = 10 mg, By Mouth, Daily, New medication for anxiety and depression (started 06/01/21), # 30 tablet, 5 Refills, Maintenance, 06/01/21 11:00:00 EST, Tablet, [facility]/pharmacy #[id number], Partial [...] 2 Refills, Maintenance, 02/10/21 13:09:00 EDT, Ointment, [facility]/pharmacy #[id number], Partial fill upon patient request if the prescription is for a schedule II opioid drug., 1 application Top... Start Date: 02/10/21 Status: Ordered magnesium oxide 400 mg oral tablet 1 tablet = 400 mg, By Mouth, Daily, [facility], 0 Refills, Maintenance, 04/15/21 23:30:00 [...] 3 Refills, Maintenance, 03/03/21 17:29:00 EDT, Tablet, [facility]/pharmacy #[id number], Partial fill upon p... Start Date: 03/03/21 Status: Ordered nicotine 21 mg/24 hr transdermal film, extended release 1 patch, Topically, Daily, for 6 week(s), Rx in [place], # 42 patch, 1 Refills, Acute 08/16/21 16:13:00 EST, 05/24/21 16:13:00 EST, Patch, [facility]/pharmacy #[id number], Partial fill [...] 26 please send to [facility], 01/21/21 13:20:00 EDT, Supply Start Date: 01/21/21 Status: Ordered sulindac 150 mg oral tablet See Instructions, TAKE 1 TABLET BY MOUTH TWICE A DAY NEEDED FOR PAIN, # 28 tablet, 0 Refills, Maintenance, [id number], 184, cm, 02/01/21 10:51:00 EDT, Height, 123.27, [...] provided increased discomfort related to nerves. 3Seeing [place] neurology and sleep. Given a trial of Tegretol 200 mg upto 2 tablets twice a day andadvised to continue with Lyrica 300 mg twice a day. Had some improvement of the facial pain with this regimen. 4Seeing [place] neurology and asleep. On 09/11/2018 started on [...]
--- OUTSIDE RECORDS SUMMARY | 2023-11-02 08:35 | XMS_ITS | Continuity of Care Document ---
Author Organization [facility] Address [address] [place] [address]- Care Team Providers Care Packer Operator Automatic Name Role Phone Ivone Oneil MD Primary Care Physician [phone] Encounter [facility] Date(s): 07/08/22 - 08/07/[address] [address]- Allergies, Adverse Reactions, Alerts Substance Reaction Severity Status penicillin Unknown Active gabapentin Active hydrOXYzine hydrochloride Ac tive Flovent HFA Active traZODone Active SEROquel Active [...] acel(Tdap) 11/25/14 Given 1Result Comment: DILUENT LOT#: [id number] EXP: 11/2022 MFG: FRESENSIUS Medications amitriptyline 100 [...] 1 Refills, Maintenance, 05/13/22 14:40:00 EST, Tablet, [facility]/pharmacy #[id number], Partial fill [...] Need length 99 months Please send to [facility], 01/21/21 13:20:00 EDT, [...] capsule, 0 Refills, Maintenance,03/11/22 9:32:00 EDT, Capsule, [facility]/pharmacy #[id number], Patient reports that he is not allergic [...] 0 Refills, Maintenance, 08/18/21 15:21:00 EST, Tablet, [facility]/pharmacy #[id number], Partial fill [...] Electronically, [facility]/pharmacy #[id number], 184, cm, 07/26/21 9:11:00 EST, Height Start Date: 07/17/26 Stop Date: 07/01/29 Status: Ordered cyanocobalamin 1000 mcg oral tablet 1,000 mcg, 1, tablet, By Mouth, Daily, for 90 days, # 90 tablet, Refills 11, Tot. Refills 11, Hard Stop 07/17/26 13:12:00 EST, 08/02/23 13:12:00 EST, Route to Pharmacy Electronically, [facility]/pharmacy #[id number], 184, cm, 01/01/21 10:56:00 [...] Gm, 2 Refills, Maintenance, 07/28/22 8:54:00 EST, [id number], 30, APPLY TOPICALLY TO AFFECTED ARE TWICE [...] 1, NEEDED FOR ALLERGIES, Route to PharmacyElectronically, [facility], 184, cm, 10/18/21 13:37:00 EDT, Height Start Date: 10/22/21 Status: Ordered magnesium oxide 400 mg oral tablet 1 tablet = 400 mg, By Mouth, Daily, Rx'd by Neurology at [facility]/ Dr. Murphy, 0 Refills, Maintenance, 04/15/21 23:30:00 [...] tablet, 3 Refills, Maintenance, 09/16/2211:15:00 EDT, Tablet, [facility]/pharmacy #[id number], Partial f... Start Date: 09/15/21 Status: Ordered Nicotine 2 mg gum See Instructions, CHEW 1 PIECE OF GUM EVERY 2 HOURS NEEDED FOR SMOKING CESSATION, # 40 gum, 0 Refills, [facility], 184, cm, 12/27/21 11:50:00 EDT, Height Start Date: 02/01/22 Status: Ordered omega-3 polyunsaturated fatty acids ethyl esters 1000 mg oral capsule 1 capsule, By Mouth, 2 times a day, # 180 capsule, 3 Refills, [facility], 90, TAKE 1 CAPSULE BY MOUTH TWICE [...] Refills, Maintenance, 03/22/22 8:30:00 EDT, [facility], 14, DISSOLVE 17 GRAMS IN WATER & [...] a day, [facility]/ Dr. Murphy, Refills 0, Maintenance, 03/07/19 8:44:30 [...] DX: M51. 26 please send to [facility], 01/21/21 13:20:00 EDT, Supply Start Date: 01/21/21 Status: Ordered Symbicort 160mcg/4.5mcg Inhaler 2, puffs, Inhalation, 2 times a day, # 6 Gm, Refills 0, Tot. Refills 0, Maintenance, 12/27/21 12:43:00 EDT, Aerosol, Route to Pharmacy Electronically, [id number], [facility]/pharmacy #[id number], 184, cm, 12/27/21 11:50:00 EDT, Height Start Date: 12/27/21 Status: Ordered Tylenol Extra Strength 500 mg oral tablet 2 tablet = 1,000 mg, By Mouth, 3 times a day, PRN as needed for pain, # 100 tablet, 5 Refills, Maintenance, 12/07/21 10:44:00 EDT, Tablet, [facility]/pharmacy #[id number], Partial fill upon patient request if theprescription is for a schedule II opioid drug., 184... Start Date: 12/07/21 Status: Ordered valsartan 320 mg oral tablet 1 tablet, By Mouth, Daily, # 90 tablet, 3 Refills, Maintenance, 03/15/22 14:29:00 EDT, [facility], 183, cm, 02/08/22 6:42:00 EDT, Height, 123.2, [...] provided increased discomfort related to nerves. 3Seeing [place] [facility] and sleep. Given a trial of Tegretol 200 mg upto 2 tablets twice a day andadvised to continue with Lyrica 300 mg twice a day. Had some improvement of the facial pain with this regimen. 4Seeing [place] [facility] and asleep. On 09/11/2018 started on [...] Care Physician Member Role: PCP Address: Address: [address] [place] [address]- Care Team Related Persons Name: JARROD BRADFORD Address: home [address] [place] [address] Name: LOLA BRADFORD Address: home [address] [place] [address] Name: GOLDIE LERMA Address: [place] [address] Name: OLIMPIA LERMA Address: [place] [address] Name: KADE LERMA Address: home [address] [place] [id number] Name: KADE LERMA Address: [address] [place] [id number]
--- OUTSIDE RECORDS SUMMARY | 2023-11-02 08:35 | XMS_ITS | Continuity of Care Document ---
Author Organization [facility] Address [address] [place] [id number]- Care Team Providers Care Quality Auditor Name Role Phone Contractor Krystal FERNANDEZ Primary Care Physician [phone] Encounter [facility] Date(s): 06/01/21 - 07/29/[address] [address]- Attending Physician: Babs LEGGETT, Farideh Ocampo Admitting Physician: Babs LEGGETT, Farideh Ocampo Referring Physician: Reshma Benson MD Allergies, Adverse [...] acel(Tdap) 11/25/14 Given 1Result Comment: DILUENT LOT#: [id number] EXP: 11/2022 MFG: FRESENSIUS Medications amitriptyline 100 mg oral tablet 1 tablet = 100 mg, By Mouth, Daily at bedtime, # 30 tablet, 3 Refills, Maintenance, 04/13/21 10:02:00 EDT, Tablet, [facility]/pharmacy #[id number], Partial fill upon patient [...] Refills, Maintenance, 03/03/21 17:24:00 EDT, Tablet, [facility]/pharmacy #[id number], Partial fill upo... Start Date: 03/03/21 Status: Ordered aspirin 81 mg oral delayed release tablet 81 mg, 1, tablet, By Mouth, Daily, # 90 tablet, Refills 0, Tot. Refills 0, Maintenance, 01/01/21 11:26:00 EDT, Route to Pharmacy Electronically, [facility]/pharmacy #[id number], Partial fill upon patient [...] Need length 99 months Please send to [facility], 01/21/21 13:20:00 EDT, Supply Start Date: 01/21/21 Status: Ordered carbidopa-levodopa 25 mg-100 mg oral tablet 1 tablet, By Mouth, 3 times a day, Rx'd by Neurology at [facility]/ Dr. Murphy, # 270 tablet, 0 Refills, Maintenance, 04/15/21 23:30:00 EDT, Tablet, Partial fill upon patient request if the prescription is for a schedule II opioid drug. Start Date: 04/15/21 Status: Ordered chlorthalidone 25 mg oral tablet 1, tablet, By Mouth, Daily, # 30 tablet, Refills 5, Route to Pharmacy Electronically, [facility], 184, cm, 03/30/21 16:08:00 EDT, Height, 123.27, kg, 06/25/19 13:22:00 EST, Dry Weight Start Date: 04/07/21 Status: Ordered Claritin 10 mg oral tablet 10 mg, 1, tablet, By Mouth, Daily, more sea necesario para alergia, # 30 tablet, Refills 5, Tot. Refills 5, Maintenance, 04/13/21 10:04:00 EDT, Route to Pharmacy Electronically, [facility]/pharmacy #[id number], 184, cm, 04/13/21 9:26:00 EDT, Height, 123.27, kg, 01... Start Date: 04/13/21 Status: Ordered clonazePAM 2 mg oral tablet See Instructions, 1 tablet by mouth only NEEDED for severe panic attack. Dispense: #20 tabs per 20d., # 20 tablet, 0 Refills, Maintenance, 07/26/21 9:23:00 EST, Tablet, [facility]/pharmacy #[id number], Partialfill upon patient request if the [...] Refills, Maintenance, 03/03/21 17:36:00 EDT, Cream, [facility]/pharmacy #[id number], Partial fill upon patient request if the prescription is for a schedule II opioid drug., 1 application Topically 3 ti... Start Date: 03/03/21 Status: Ordered cyanocobalamin 1000 mcg oral tablet 1,000 mcg, 1, tablet, By Mouth, Daily, # 90 tablet, Refills 11, Tot. Refills 11, Maintenance, 08/02/23 13:12:00 EST, Route to Pharmacy Electronically, [facility]/pharmacy #[id number], 184, cm, 01/01/21 10:56:00 [...] Refills, Maintenance, 01/11/21 15:23:00 EDT, Tablet, [facility]/pharmacy #[id number], Partial fill upon patient [...] Refills, Maintenance, 02/10/21 13:09:00 EDT, Ointment, [facility]/pharmacy #[id number], Partial fill upon patient request if the prescription is for a schedule II opioid drug., 1 application Top... Start Date: 02/10/21 Status: Ordered magnesium oxide 400 mg oral tablet 1 tablet = 400 mg, By Mouth, Daily, Rx'd by Neurology at [facility]/ Dr. Murphy, 0 Refills, Maintenance, [...] Refills, Maintenance, 03/03/21 17:29:00 EDT, Tablet, [facility]/pharmacy #[id number], Partial fill upon p... Start Date: 03/03/21 Status: Ordered nicotine 21 mg/24 hr transdermal film, extended release 1 patch, Topically, Daily, for 6 week(s), Rx in Turkish, # 42 patch, 1 Refills, Acute 08/16/21 [...] Mouth, Daily, # 90 capsule, 0 Refills, [facility], 184, cm, 06/14/21 11:01:00 EST, Height, 123.27, [...] Maintenance, DX: M51. 26 please send to [facility], 01/21/21 13:20:00 EDT, Supply Start Date: 01/21/21 Status: Ordered sulindac 150 mg oral tablet See Instructions, TAKE 1 TABLET BY MOUTH TWICE A DAY NEEDED FOR PAIN, # 28 tablet, 0 Refills, Maintenance, [facility], 184, cm, 02/01/21 10:51:00 EDT, Height, 123.27, [...] provided increased discomfort related to nerves. 3Seeing [place] neurology and sleep. Given a trial of Tegretol 200 mg upto 2 tablets twice a day andadvised to continue with Lyrica 300 mg twice a day. Had some improvement of the facial pain with this regimen. 4Seeing [place] neurology and asleep. On 09/11/2018 started on [...]
--- OUTSIDE RECORDS SUMMARY | 2023-11-02 08:35 | XMS_ITS | Continuity of Care Document ---
Author Organization [facility] Address [address] [place] [address]- Care Team Providers Care Mill Washer Name Role Phone Contractor Krystal FERNANDEZ Primary Care Physician Encounter [facility] Date(s): 11/15/21 - 11/22/21 [facility] [address] [place] [address]- Encounter Diagnosis Right leg pain(Discharge Diagnosis) - 11/15/21 Attending Physician: Georges Sen DO Allergies, Adverse Reactions, Alerts Substance Reaction [...] acel(Tdap) 11/25/14 Given 1Result Comment: DILUENT LOT#: [id number] EXP: 11/2022 MFG: FRESENSIUS Medications amitriptyline 100 [...] 11:11:00 EDT, 10/28/21 11:11:00 EDT, CR Tablet, [facility]/pharmacy #[id number], Partial fill upon patient request if the [...] Need length 99 months Please send to [facility], 01/21/21 13:20:00 EDT, Supply Start Date: 01/21/21 Status: Ordered carbidopa-levodopa 25 mg-100 mg oral tablet 1 tablet, By Mouth, 3 times a day, Rx'd by Neurology at [facility] [place]/ Dr. Murphy, # 270 tablet, 0 Refills, Maintenance, 04/15/21 23:30:00 EDT, Tablet, Partial fill upon patient request if the prescription is for a schedule II opioid drug. Start Date: 04/15/21 Status: Ordered chlorthalidone 25 mg oral tablet 1, tablet, By Mouth, Daily, # 30 tablet, Refills 5, Tot. Refills 5, 09/28/21 8:08:00 EDT, Route to Pharmacy Electronically, [facility]/pharmacy #[id number], 184, cm, 09/15/21 9:12:00 EDT, Height Start Date: 09/28/21 Status: Ordered clonazePAM 2 mg oral tablet See Instructions, 1 tablet by mouth only NEEDED for severe panic attack. Dispense: #20 tabs per 20d., # 20 tablet, 0 Refills, Maintenance, 08/18/21 15:21:00 EST, Tablet, [facility]/pharmacy #[id number], [...] 0 Refills, Maintenance, 10/07/21 20:16:00 EDT, Cream, [facility]/pharmacy #[id number], Partial fill upon patient request if the prescription is for a schedule II opioid drug., 1 application Topically 3 ti... Start Date: 10/07/21 Status: Ordered cyanocobalamin 1000 mcg oral tablet 1,000 mcg, 1, tablet, By Mouth, Daily, # 90 tablet, Refills 11, Tot. Refills 11, Maintenance, 07/17/26 13:12:00 EST, Route to Pharmacy Electronically, [facility]/pharmacy #[id number], 184, cm, 07/26/21 9:11:00 EST, Height Start Date: 07/17/26 Stop Date: 07/01/29 Status: Ordered cyanocobalamin 1000 mcg oral tablet 1,000 mcg, 1, tablet, By Mouth, Daily, for 90 days, # 90 tablet, Refills 11, Tot. Refills 11, Hard Stop 07/17/26 13:12:00 EST, 08/02/23 13:12:00 EST, Route to Pharmacy Electronically, [facility]/pharmacy #[id number], 184, cm, 01/01/21 [...] 1 Refills, Maintenance, 11/12/21 8:44:00 EDT, Gel, [facility]/pharmacy #[id number], Partial fill upon patient request if the prescription isfor a schedule II opioid drug., 184, cm, 11/05/21 9... Start Date: 11/12/21 Status: Ordered docusate sodium 100 mg oral tablet 1 tablet = 100 mg, By Mouth, 2 times a day, PRN for constipation, # 60 tablet, 5 Refills, Maintenance, 10/07/21 20:16:00 EDT, Tablet, [facility]/pharmacy #[id number], Partial fill upon patient request if the prescription is for a schedule II opioid drug., 184, cm,... Start Date: 10/07/21 Status: Ordered doxycycline hyclate 100 mg oral tablet 1 tablet = 100 mg, By Mouth, Every 12 hours, for 10 days, # 20 tablet, 0 Refills, Acute 11/25/21 10:21:00 EDT, 11/15/21 10:21:00 EDT, Tablet, [facility]/pharmacy #[id number], Partial fill upon patient request if the prescription is for a schedule II opioid drug.,... Start Date: 11/15/21 Stop Date: 11/25/21 Status: Ordered escitalopram 20 mg oral tablet 1 tablet = 20 mg, By Mouth, Daily, # 30 tablet, 3 Refills, Maintenance, 07/13/21 12:26:00 EST, Tablet, [facility]/pharmacy #[id number], d/c citalopram 10 mg, 184, cm, 06/14/21 11:01:00 EST, Height Start Date: 07/13/21 Status: Ordered fluticasone 50 mcg/inh nasal spray See Instructions, USE 1 SPRAY IN EACH NOSTRIL EVERY MORNING, # 16 mL, 3 Refills, 01/29/21 9:11:00 EDT, [facility]/pharmacy #[id number], 30, USE 1 [...] 2 Refills, Maintenance, 11/02/21 14:30:00 EDT, Ointment, [facility]/pharmacy #[id number], Partial fill upon patient request if the prescription is for a schedule II opioid drug., 1 application Top... Start Date: 11/02/21 Status: Ordered loratadine 10 mg oral tablet 1, tablet, By Mouth, Daily, PRN, # 90 tablet, Refills 1, NEEDED FOR ALLERGIES, Route to PharmacyElectronically, [facility], 184, cm, 10/18/21 13:37:00 EDT, Height Start Date: 10/22/21 Status: Ordered magnesium oxide 400 mg oral tablet 1 tablet = 400 mg, By Mouth, Daily, Rx'd by Neurology at [facility]/ Dr. Murphy, 0 Refills, Maintenance, [...] 11:13:00 EST, 10/28/21 11:13:00 EDT, REC Powder, [facility]/pharmacy #[id number], Partial fill [...] tablet, 3 Refills, Maintenance, 09/16/2211:15:00 EDT, Tablet, [facility]/pharmacy #[id number], Partial f... Start Date: 09/15/21 Status: Ordered omega-3 polyunsaturated fatty acids ethyl esters 1000 mg oral capsule 1 capsule = 1,000 mg, By Mouth, 2 times a day, # 60 capsule, 11 Refills, Maintenance, 12/27/21 11:25:00 EDT, Capsule, [facility]/pharmacy #[id number], 1 capsule [...] 12/27/21 11:25:00 EDT, 01/01/21 11:25:00 EDT, Capsule, [facility]/pharmacy #[id number], 184, cm, 01/01/21 [...] 0 Refills, Maintenance, 06/29/21 15:41:00 EST, Capsule, [facility]/pharmacy #[id number], Partial fill [...] 28 tablet, 0 Refills, Maintenance, [facility], 184, cm, 02/01/21 10:51:00 EDT, Height, 123.27, kg, 06/25/19 13:22:00 EST, Dry Weight Start Date: 02/01/21 Status: Ordered Tylenol Extra Strength 500 mg oral tablet 2 tablet = 1,000 mg, By Mouth, 3 times a day, PRN as needed for pain, # 100 tablet, 5 Refills, Maintenance, 07/26/21 9:43:00 EST, Tablet, [id number], Partial fill upon patient request if the [...] class II(Confirmed) Active Obesity (BMI 30-39.9)(Confirmed) Active KEMRIT (obstructive sleep apnea ): bipap 2 liters [...] provided increased discomfort related to nerves. 3Seeing [place] neurology and sleep. Given a trial of Tegretol 200 mg upto 2 tablets twice a day andadvised to continue with Lyrica 300 mg twice a day. Had some improvement of the facial pain with this regimen. 4Seeing [place] neurology and asleep. On 09/11/2018 started on a trial of primidone 50 mg, 1 tablet for 1 week and then twice a day. 5Seeing Aydin Castrejon 6per pt, he is on disability, seen by Dr. [place] 7Simvastatin 40 mg d/sedrick. Diagnosis Diagnosis Type Effective Dates Health Status Cl inical Service Informant Right leg pain Discharge Diagnosis 11/15/21 Vital Signs Most recent to oldest [Reference Range]: 1 Height 184 cm (11/15/21 9:55 AM) Oxygen Saturation [94-100 %] 100 % (11/15/21 9:55 AM) Pulse Rate [55-90 bpm] 73 bpm (11/15/21 9:55 AM) Blood Pressure [90-138/55-84 mm Hg] 133/ 66mm Hg (11/15/21 9:55 AM) Temperature [96.8-100.4 DegF] 98.3 DegF (11/15/21 9:55 AM) Mode of Delivery (Oxygen) Room air (11/15/21 9:55 AM) Blood pressure sites Arm, right (11/15/21 9:55 AM) Temperature Route Temporal (11/15/21 9:55 AM) Social History Social History Type Response Smoking Status 10 or more cigarette s (1/2 pack or more)/day in last 30 days; Interested in cessation: Yes; Other: 1ppd; entered on: 05/24/21 Sex
--- OUTSIDE RECORDS SUMMARY | 2023-11-02 08:35 | XMS_ITS | Continuity of Care Document ---
Author Organization [facility] ter Address [address] [place] [address]- Care Team Providers Care Technology Services Manager Name Role Phone Ivone Oneil MD Primary Care Physician Encounter [facility] Date(s): 02/07/22 - 02/08/[address] [address] Discharge Disposition: A-Transfer VNA/Home Health Attending Physician: Quinten Alvarado MD Admitting Physician: Quinten Alvarado MD Referring Physician: Quinten Alvarado MD Allergies, Adverse Reactions, Alerts Substance Reaction Severity Status penicillin Unknown Active gabapentin Active Lantus Active ZyrTEC Active SEROquel Active traZODone Active hydrOXYzine hydrochloride Ac tive Ventolin HFA Active Flovent HFA Active Immunizations [...] acel(Tdap) 11/25/14 Given 1Result Comment: DILUENT LOT#: [id number] EXP: 11/2022 MFG: FRESENSIUS Medications amitriptyline 100 mg oral tablet 1 tablet = 100 mg, By Mouth, Daily at bedtime, # 30 tablet, 3 Refills, Maintenance, 12/27/21 12:09:00 EDT, Tablet, [facility]/pharmacy [...] 03/03/21 17:24:00 EDT, Tablet, [facility]/pharmacy #[id number], Partial fill upo... Start [...] Refills, Maintenance, 11/29/21 14:23:00 EDT, Tablet, [facility]/pharmacy [...] Need length 99 months Please send to [facility], 01/21/21 13:20:00 EDT, Supply Start Date: 01/21/21 [...] [id number] 184, cm, 07/26/21 9:11:00 EST, Height [...] 5 Refills, Maintenance, 10/07/21 20:16:00 EDT, Tablet, [facility]/pharmacy #5211, Partial fill upon patient request if [...] 1, NEEDED FOR ALLERGIES, Route to PharmacyElectronically, [facility], 184, cm, 10/18/21 13:37:00 EDT, Height Start Date: 10/22/21 Status: Ordered magnesium oxide 400 mg oral tablet 1 tablet = 400 mg, By Mouth, Daily, Rx'd by Neurology at [facility] [place]/ Dr. Murphy, 0 Refills, Maintenance, 04/15/21 23:30:00 [...] 11:13:00 EDT, REC Powder, [facility] Maintenance, 09/16/2211:15:00 EDT, Tablet, [facility]/pharmacy #[id number], Partial f... Start Date: 09/15/21 [...] SMOKING CESSATION, # 40 gum, 0 Refills, [facility], 184, cm, 12/27/21 11:50:00 EDT, Height Start Date: 02/01/22 Status: Ordered omeprazole 20 mg oral enteric [...] Date: 06/29/21 Stop Date: 07/29/21 Status: Ordered risperiDONE 0.25 mg oral tablet [...] DX: M51. 26 please send to [facility], 01/21/21 13:20:00 EDT, Supply Start Date: 01/21/21 Status: Ordered Symbicort 160mcg/4.5mcg Inhaler 2, puffs, Inhalation, 2 times a day, # 6 Gm, Refills 0, Tot. Refills 0, Maintenance, 12/27/21 12:43:00 EDT, Aerosol, Route to Pharmacy Electronically, [id number], [facility]/pharmacy #[id number], 184, cm, 12/27/21 11:50:00 EDT, Height Start Date: 12/27/21 Status: Ordered traMADol 50 mg oral tablet See Instructions, PRN Pain , Mild, Take 1-2 tablets every 6 hours as needed for mild pain. not to exceed 400 mg/day, # 56 tablet, 0 Refills, Acute 02/15/22 8:00:00 EDT, 02/08/22 9:55:00 EDT, Tablet, [facility], Partial fill upon patien... Start Date: 02/08/22 Stop Date: 02/15/22 Status: Ordered Tylenol Extra Strength 500 mg oral tablet 2 tablet = 1,000 mg, By Mouth, 3 times a day, PRN as needed for pain, # 100 tablet, 5 Refills, Maintenance, 12/07/21 10:44:00 EDT, Tablet, [facility]/pharmacy [...] provided increased discomfort related to nerves. 3Seeing [place] neurology and sleep. Given a trial of Tegretol 200 mg upto 2 tablets twice a day andadvised to continue with Lyrica 300 mg twice a day. Had some improvement of the facial pain with this regimen. 4Seeing [place] neurology and asleep. On 09/11/2018 started on a trial of primidone 50 mg, 1 tablet for 1 week and then twice a day. 5Seeing Aydin Castrejon 6per pt, he is on disability, seen by Dr. Pollock 7Simvastatin 40 mg d/sedrick. Results Radiology Reports * Exam Date Time Procedure Performing Provider Status 02/07/22 11:01 PM Pelvis 1 or 2 Views Odilon Christy; Au th (Verified) Notes: (Pelvis 1 or 2 Views) Reason For Exam: Postop Prosthesis;Postop Prosthesis RESULT: Pelvis 1 or 2 Views Pelvis 1 or 2 Views a single AP image Reason: Postop Prosthesis; Clinical Question(s): Status of Hip Prosthesis; Special Instructions: LEFT Hip - Do today at 2200 COMPARISON: Intraoperative image of the pelvis 02/07/2022 FINDINGS: Single AP image demonstrates completion of the total knee replacement surgery with the prosthetic femoral head is normally seated within the acetabular cup and the shaft portion well seated within the proximal femoral shaft. Postoperative gas seen in the surrounding soft tissues. IMPRESSION: Satisfactory appearance following total hip replacement surgery. WSN: [id number] Ordering Physician: Josh Sauer Dictated By: Armando Gardiner MD Dictated Date/Time: 02/08/22 7:49 am Reviewed By: Armando Gardiner MD Signed By: Armando Gardiner MD Signed Date/Time: 02/08/22 7:49 am Transcribed By: SHIELA Transcribed Date/Time: 02/08/22 7:45 am * Exam Date Time Procedure Performing Provider Status 02/07/22 2:43 PM Pelvis 1 or 2 Views Maru Headley; Shannan (Verified) Notes: (Pelvis 1 or 2 Views) Reason For Exam: osteoarthritis, left total hip replacement RESULT: Pelvis 1 or 2 Views Pelvis 1 or 2 Views Reason: osteoarthritis, left total hip replacement COMPARISON: None. FINDINGS: Intraoperative radiograph during left hip arthroplasty demonstrates an acetabular cup as well as a femoral sizing rasp in place, with overlying forceps. No periprosthetic fracture. No immediate hardware complication is seen. A sponge is noted along the lateral aspect of the left hip. There is a large soft tissue defect overlying the left hip. IMPRESSION: Intraoperative radiograph obtained during left hip arthroplasty. No immediate hardware complication. WSN: [id number] Ordering Physician: Quinten Alvarado Dictated By: Kaushik Suresh MD Dictated Date/Time: 02/07/22 5:11 pm Reviewed By: Kaushik Suresh MD Signed By: Kaushik Suresh MD Signed Date/Time: 02/07/22 5:11 pm Transcribed By: SHIELA Transcribed Date/Time: 02/07/22 5:10 pm Vital Signs Most recent to oldest [Reference Range]: 1 2 3 Height 183 cm (02/08/22 6:42 AM) 183 cm (02/07/22 6:02 PM) 183 cm (02/07/22 12:47 PM) Weight 123.2 kg (02/07/22 12:47 PM) 123.2 kg (02/07/22 7:50 AM) Oxygen Saturation [94-100 %] 96 % (02/08/22 6:42 AM) 99 % (02/08/22 4:00 AM) 99 % (02/08/22 12:00 AM) Pulse Rate [55-90 bpm] 73 bpm (02/08/22 6:42 AM) 73 bpm (02/08/22 4:00 AM) 66 bpm (02/08/22 12:00 AM) Body Mass Index [18.5-24.99] 36.79 *>HHI* (02/07/22 12:47 PM) 36.79 *>HHI* (02/07/22 7:50 AM) Blood Pressure [90-138/55-84 mm Hg] 125/69mm Hg (02/08/22 6:42 AM) 136/86mm Hg (02/08/22 4:00 AM) 120/66mm Hg (02/08/22 12:00 AM) Respiratory Rate [16-30 br/min] 18 br/min (02/08/22 6:42 AM) 20 br/min (02/08/22 4:00 AM) 18 br/min (02/08/22 12:00 AM) Temperature [96.8-100.4 DegF] 98.1 DegF (02/08/22 6:42 AM) 97.5 DegF (02/08/22 4:00 AM) 97.6 DegF (02/08/22 12:00 AM) Liters per Minute 2 L/min (02/07/22 8:00 PM) 2 L/min (02/07/22 6:02 PM) 4 L/min (02/07/22 4:30 PM) Mode of Delivery (Oxygen) Room air (02/08/22 6:42 AM) Room air (02/08/22 4:00 AM) CPAP (02/08/22 12:00 AM) Blood pressure sites Arm, left (02/08/22 6:42 AM) Arm, left (02/08/22 4:00 AM) Arm, left (02/08/22 12:00 AM) Temperature Route Oral (02/08/22 6:42 AM) Oral (02/08/22 4:00 AM) Oral (02/08/22 12:00 AM) Dry Weight 123.2 kg (02/07/22 12:47 PM) 123.2 kg (02/07/22 7:50 AM) Weight Obtained Via Standing scale (02/07/22 7:50 AM) Dry Weight Obtained Via Standing scale (02/07/22 7:50 AM) Social History Social History Type Response Smoking Status 5-9 cigarettes (jasonw een 1/4 to 1/2 pack)/day in last 30 days entered on: 12/27/21 Sex
--- OUTSIDE RECORDS SUMMARY | 2023-11-02 08:35 | XMS_ITS | Continuity of Care Document ---
Author Organization [facility] Address [address] [place] [address]- Care Team Providers Care Mixing House Operator Name Role Phone Terence PRTAHER, Azra Primary Care Physician [phone] Encounter [facility] Date(s): 03/04/20 - 04/03/[address] [address] Allergies, Adverse Reactions, Alerts Substance Reaction Severity [...] EDT, Route to Pharmacy Electronically, [facility]/pharmacy #[id number], 184, cm, 01/15/20 9:11:00 EDT, Height, 123.27, kg, 06/25/19 13:22:00 EST, Dry Weight Start Date: 01/15/20 Stop Date: 03/15/20 Status: Ordered aspirin 81 mg oral tablet 1 tablet = 81 mg, By Mouth, Daily, # 90 tablet, 3 Refills, Maintenance, 01/15/20 9:51:00 EDT, Tablet, [facility]/pharmacy #[id number], 184, cm, 01/15/20 9:11:00 EDT, [...] EDT, Route to Pharmacy Electronically, [facility]/pharmacy #[id number], 184, cm, 01/29/20 14:16:00 EDT, [...] EST, Route to Pharmacy Electronically, [facility]/pharmacy #[id number], 184, cm, 02/28/20 15:58:00 EDT, [...] Maintenance, 01/15/20 9:51:00 EDT, Tablet, [facility]/pharmacy #[id number], 184, cm, 01/15/20 9:11:00 EDT, Height, 123.27, kg, 06/25/19 13:22:00 EST, Dry Weight Start Date: 01/15/20 Stop Date: 03/15/20 Status: Ordered fluticasone 50 mcg/inh nasal spray See Instructions, USE 1 SPRAY IN EACH NOSTRIL EVERY MORNING, # 16 mL, 0 Refills, Maintenance, [facility], 30, USE 1 SPRAY IN EACH NOSTRIL [...]
--- OUTSIDE RECORDS SUMMARY | 2023-11-02 08:35 | XMS_ITS | Continuity of Care Document ---
Author Organization [facility] Address [address] [place] [address]- Care Team Providers Care Well Puller Name Role Phone Contractor Krystal FERNANDEZ Primary Care Physician Encounter [facility] Date(s): 02/03/21 - 03/05/[address] [address] Allergies, Adverse Reactions, Alerts Substance [...] Refills, Maintenance, 03/03/21 17:24:00 EDT, Tablet, [facility]/pharmacy #[id number], Partial fill upo... Start Date: 03/03/21 Status: Ordered aspirin 81 mg oral delayed release tablet 81 mg, 1, tablet, By Mouth, Daily, # 90 tablet, Refills 0, Tot. Refills 0, Maintenance, 01/01/21 11:26:00 EDT, Route to Pharmacy Electronically, [facility]/pharmacy #[id number], Partial fill upon patient request if the prescription is for a schedule II opioid drug... Start Date: 01/01/21 Status: Ordered aspirin 81 mg oral tablet 1 tablet = 81 mg, By Mouth, Daily, # 90 tablet, 3 Refills, Maintenance, 01/15/20 9:51:00 EDT, Tablet, [facility]/pharmacy #[id number], 184, cm, 01/15/20 9:11:00 [...] Need length 99 months Please send to [facility], 01/21/21 13:20:00 EDT, Supply Start Date: 01/21/21 [...] EST, [id number] 184, cm, 02/28/20 15:58:00 EDT, Height, 123.27,... Start Date: 08/17/20 Stop Date: 08/02/23 Status: Ordered cyanocobalamin 1000 mcg oral tablet 1,000 mcg, 1, tablet, By Mouth, Daily, # 90 tablet, Refills 11, Tot. Refills 11, Maintenance, 08/02/23 13:12:00 EST, [id number], 184, cm, 01/01/21 10:56:00 EDT, Height, [...] Refills, Maintenance, 01/11/21 15:23:00 EDT, Tablet, [facility]/pharmacy #[id number], Partial fill upon patient request if the prescription is for a schedule II opioid drug., 184, cm,... Start Date: 01/11/21 Status: Ordered fluticasone 50 mcg/inh nasal spray See Instructions, USE 1 SPRAY IN EACH NOSTRIL EVERY MORNING, # 16 mL, 3 Refills, 01/29/21 9:11:00 EDT, [facility]/pharmacy #[id number], 30, USE 1 SPRAY IN EACH [...] Refills, Maintenance, 02/10/21 13:09:00 EDT, Ointment, [facility]/pharmacy #[id number], Partial fill upon patient [...] Refills, Maintenance, 03/03/21 17:29:00 EDT, Tablet, [facility]/pharmacy #[id number], Partial fill upon p... Start Date: [...] 28 tablet, 0 Refills, Maintenance, [facility], 184, cm, 02/01/21 10:51:00 EDT, Height, 123.27, [...] provided increased discomfort related to nerves. 3Seeing [place] neurology and sleep. Given a trial of Tegretol 200 mg upto 2 tablets twice a day andadvised to continue with Lyrica 300 mg twice a day. Had some improvement of the facial pain with this regimen. 4Seeing [place] neurology and asleep. On 09/11/2018 started on [...]
--- OUTSIDE RECORDS SUMMARY | 2023-11-02 08:35 | XMS_ITS | Continuity of Care Document ---
Author Organization [facility] Address [address] [place] [address]- Care Team Providers Care Improvement Analyst Name Role Phone Sesar Perdue Primary Care Physician [place] [facility] Date(s): 01/15/20 - 02/14/20 [facility] [address] [place] [address]- [facility] Allergies, Adverse Reactions, Alerts Substance Reaction [...] 01/15/20 9:49:00 EDT, Route to Pharmacy Electronically, [facility]/pharmacy #[id number] Tablet, 184, cm, 01/15/20 9:11... Start Date: 01/15/20 Stop Date: 02/14/20 Status: Ordered amLODIPine 10 mg oral tablet 10 mg, 1, tablet, By Mouth, Daily, # 90 tablet, Refills 3, Tot. Refills 3, Maintenance, 01/15/20 9:51:00 EDT, Route to Pharmacy Electronically, [facility]/pharmacy #[id number], 184, cm, 01/15/20 9:11:00 EDT, Height, 123.27, kg, 06/25/19 13:22:00 EST, Dry Weight Start Date: 01/15/20 Stop Date: 03/15/20 Status: Ordered aspirin 81 mg oral tablet 1 tablet = 81 mg, By Mouth, Daily, # 90 tablet, 3 Refills, Maintenance, 01/15/20 9:51:00 EDT, Tablet, [facility]/pharmacy #[id number], 184, cm, 01/15/20 9:11:00 [...] 02/07/20 9:49:00 EDT, Route to Pharmacy Electronically, [facility]/pharmacy #[id number], 184, cm, 01/29/20 14:16:00 EDT, [...] 13:22:00 EST,... Start Date: 02/07/20 Status: Ordered Diovan 320 mg oral tablet 1 tablet = 320 mg, By Mouth, Daily, # 90 tablet, 3 Refills, Maintenance, 01/15/20 9:51:00 EDT, Tablet, [facility]/pharmacy #[id number], 184, cm, 01/15/20 9:11:00 EDT, Height, 123.27, kg, 06/25/19 13:22:00 EST, Dry Weight Start Date: 01/15/20 Stop Date: 03/15/20 Status: Ordered fluticasone 50 mcg/inh nasal spray See Instructions, USE 1 SPRAY IN EACH NOSTRIL EVERY MORNING, # 16 mL, 0 Refills, Maintenance, [facility], 30, USE 1 SPRAY IN EACH NOSTRIL [...] provided increased discomfort related to nerves. 3Seeing [place] neurology and sleep. Given a trial of Tegretol 200 mg upto 2 tablets twice a day andadvised to continue with Lyrica 300 mg twice a day. Had some improvement of the facial pain with this regimen. 4Seeing [place] neurology and asleep. On 09/11/2018 started on [...]
--- OUTSIDE RECORDS SUMMARY | 2023-11-02 08:35 | XMS_ITS | Continuity of Care Document ---
Author Organization [facility] Address [address] [place] [address]- Care Team Providers Care Ball Ender Name Role Phone Contractor Krystal FERNANDEZ Primary Care Physician [phone] Encounter [facility] Date(s): 03/25/21 - 04/24/[address] [address] Allergies, Adverse Reactions, Alerts [...] Refills, Maintenance, 04/13/21 10:02:00 EDT, Tablet, [facility]/pharmacy [...] Need length 99 months Please send to [facility], 01/21/21 13:20:00 EDT, Supply Start Date: 01/21/21 Status: Ordered carbidopa-levodopa 25 mg-100 mg oral tablet 1 tablet, By Mouth, 3 times a day, Rx'd by Neurology at [facility] [place]/ Dr. Murphy, # 270 tablet, 0 Refills, Maintenance, 04/15/21 23:30:00 EDT, Tablet, Partial fill upon patient request if the prescription is for a schedule II opioid drug. Start Date: 04/15/21 Status: Ordered chlorthalidone 25 mg oral tablet 1, tablet, By Mouth, Daily, # 30 tablet, Refills 5, Route to Pharmacy Electronically, [facility], 184, cm, 03/30/21 16:08:00 EDT, Height, 123.27, kg, 06/25/19 13:22:00 EST, Dry Weight Start Date: 04/07/21 Status: Ordered Claritin 10 mg oral tablet 10 mg, 1, tablet, By Mouth, Daily, more sea necesario para alergia, # 30 tablet, Refills 5, Tot. Refills 5, Maintenance, 04/13/21 10:04:00 EDT, Route to Pharmacy Electronically, [facility]/pharmacy #[id number], 184, cm, 04/13/21 9:26:00 EDT, Height, [...] Refills, Maintenance, 03/03/21 17:36:00 EDT, Cream, [facility]/pharmacy #[id number], Partial fill upon patient request if the prescription is for a schedule II opioid drug., 1 application Topically 3 ti... Start Date: 03/03/21 Status: Ordered cyanocobalamin 1000 mcg oral tablet 1,000 mcg, 1, tablet, By Mouth, Daily, # 90 tablet, Refills 11, Tot. Refills 11, Maintenance, 08/02/23 13:12:00 EST, [id number] 184, cm, 01/01/21 10:56:00 [...] 0 Refills, Maintenance, 04/05/21 15:54:00 EDT, Tablet, [facility]/pharmacy [...] By Mouth, Daily, [facility] [place]/ Dr. Murphy, 0 Refills, Maintenance, 04/15/21 23:30:00 [...] Refills, Maintenance, 03/03/21 17:29:00 EDT, Tablet, [facility]/pharmacy #[id number], Partial fill upon p... Start Date: [...] 28 tablet, 0 Refills, Maintenance, [facility], 184, cm, 02/01/21 10:51:00 EDT, Height, 123.27, [...] provided increased discomfort related to nerves. 3Seeing [place] neurology and sleep. Given a trial of Tegretol 200 mg upto 2 tablets twice a day andadvised to continue with Lyrica 300 mg twice a day. Had some improvement of the facial pain with this regimen. 4Seeing [place] neurology and asleep. On 09/11/2018 started on [...]
--- OUTSIDE RECORDS SUMMARY | 2023-11-02 08:36 | XMS_ITS | Continuity of Care Document ---
Author Organization [facility] Address [address] [place] [address]- Care Team Providers Care Children'S Ministries Director Name Role Phone Ivone Oneil MD Primary Care Physician Encounter [facility] Date(s): 07/19/22 - 11/01/[address] [address]- Encounter Diagnosis Low back pain, unspecified(Final) - Discharge Disposition: A-D/C Home Attending Physician: Ivone Oneil MD Admitting Physician: Ivone Oneil MD Referring Physician: Nick Hutson V Allergies, Adverse Reactions, Alerts Substance Reaction [...] acel(Tdap) 11/25/14 Given 1Result Comment: DILUENT LOT#: [id number] EXP: 11/2022 MFG: FRESENSIUS Medications Aripiprazole 2 [...] 1 Refills, Maintenance, 05/13/22 14:40:00 EST, Tablet, [facility]/pharmacy #7861, Partial fill upon patient request if the [...] length 99 months Please send to [facility], 01/21/21 13:20:00 EDT, Supply Start Date: 01/21/21 Status: Ordered carbidopa-levodopa 25 mg-100 mg oral tablet 1 tablet, By Mouth, 2 times a day, Rx'd by neurology at [facility], # 60 tablet, 0 Refills, Maintenance, 10/04/22 8:23:00 EDT, Tablet, Partial fill upon patient request if the prescription is for a schedule II opioid drug. Start Date: 10/04/22 Status: Ordered chlorthalidone 25 mg oral tablet 25 mg, 1, tablet, By Mouth, Daily, # 30 tablet, Refills 2, Tot. Refills 2, Maintenance, 08/23/22 8:42:00 EST, Route to Pharmacy Electronically, [facility]/pharmacy #[id number], Partial fill upon patient request if the [...] 07/01/29 13:12:00 EST, Route to Pharmacy Electronically, [facility]/pharmacy #[id number], 183, cm, 08/22/22 8:28:00 EST,Height, 123.2, [...] Gm, 2 Refills, Maintenance, 07/28/22 8:54:00 EST, [facility], 30, APPLY TOPICALLY TO AFFECTED ARE TWICE A DAY NEEDED FOR PAIN, 183, cm, 07/07/22 10:54:00 E... Start Date: 07/28/22 Status: Ordered empagliflozin 10 mg oral tablet 1 tablet = 10 mg, By Mouth, Daily in AM, # 30 tablet, 2 Refills, Maintenance, 08/23/22 8:44:00 EST,Tablet, [facility]/pharmacy #0611, Partial fill upon patient request if the [...] at bedtime, Rx'd by neurology at [facility], 0 Refills, Maintenance, 10/04/22 8:24:00 EDT, Capsule, Partial fill upon patient request if the prescription is for a schedule II opioid drug. Start Date: 10/04/22 Status: Ordered levocetirizine 5 mg oral tablet 1 tablet = 5 mg, By Mouth, Daily in AM, # 30 tablet, 2 Refills, Maintenance, 08/23/22 8:44:00 EST, Tablet, [facility]/pharmacy #4471, Label in portuguese, cetrizine not effective, 1 tablet By Mouth Daily in AM, 183, cm, 08/22/22 8:28:00 EST, Height, 123.2, kg,... Start Date: 08/23/22 Status: Ordered loratadine 10 mg oral tablet 1, tablet, By Mouth, Daily, PRN, # 90 tablet, Refills 1, NEEDED FOR ALLERGIES, Route to PharmacyElectronically, [facility], 184, cm, 10/18/21 13:37:00 EDT, Height Start Date: 10/22/21 Status: Ordered Metamucil 3.4 gm/5.2 gm oral powder for reconstitution = 3.4 Gm, By Mouth, 3 times a day, PRN as needed for constipation, # 425 Gm, 11 Refills, Maintenance, 09/12/22 20:51:00 EDT, REC Powder, [facility]/pharmacy #4471, Partial fill upon patient request if the prescription is for a schedule II opioid drug., 183,... Start Date: 09/12/22 Status: Ordered metFORMIN 500 mg oral tablet 2 tablet = 1,000 mg, By Mouth, 2 times a day, For diabetes, # 360 tablet, 3 Refills, Maintenance, 10/04/22 18:03:00 EDT, Tablet, [facility]/pharmacy #4471, Partial [...] SMOKING CESSATION, # 40 gum, 0 Refills, [facility], 184, cm, 12/27/21 11:50:00 EDT, Height Start [...] a day, # 180 capsule, 3 Refills, [facility] 332[facility], 90, TAKE 1 CAPSULE BY MOUTH TWICE [...] a day, Rx'd by neurology at [facility], # 60 capsule, 0 Refills, Maintenance, [...] a day, Rx'd by neurology at [facility], # 270 tablet, 0 Refills, Maintenance, [...] please send to [facility], 08/08/22 15:41:00 EST, Supply Start Date: 08/08/22 Status: Ordered Symbicort 160mcg/4.5mcg Inhaler 2, puffs, Inhalation, 2 times a day, # 6 Gm, Refills 0, Tot. Refills 0, Maintenance, 12/27/21 12:43:00 EDT, Aerosol, Route to Pharmacy Electronically, [id number], [facility]/pharmacy #[id number], 184, cm, 12/27/21 11:50:00 EDT, Height Start Date: 12/27/21 Status: Ordered traMADol 50 mg oral tablet 1 tablet = 50 mg, By Mouth, Every 12 hours, PRN for pain, Rx'd by [facility], # 60 tablet, 0 Refills, Maintenance, [...] Refills, Maintenance, 03/15/22 14:29:00 EDT, [facility], 183, cm, 02/08/22 6:42:00 EDT, Height, 123.2, [...] provided increased discomfort related to nerves. 3Seeing [place] neurology and sleep. Given a trial of Tegretol 200 mg upto 2 tablets twice a day andadvised to continue with Lyrica 300 mg twice a day. Had some improvement of the facial pain with this regimen. 4Seeing [place] neurology and asleep. On 09/11/2018 started on [...] Care Team Personnel Name: Olimpia Parker Position: [facility] Office Staff Member Role: Lifetime Consulting Physician Name: Ivone Oneil MD Position: [facility] Primary Care Physician Member Role: PCP Address: Address: [address] [place] [address]- Care Team Related Persons Name: JARROD BRADFORD Address: home [address] [place] [address] Name: LOLA BRADFORD Address: home [address] [place] [address] Name: GOLDIE LERMA Address: [place] [address] Name: OLIMPIA LERMA Address: [place] [address] Name: KADE LERMA Address: home [address] [address] Name: KADE LERMA Address: home [address] [place] [address]
--- OUTSIDE RECORDS SUMMARY | 2023-11-02 08:36 | XMS_ITS | Continuity of Care Document ---
Author Organization [facility] Address [address] [place] [address]- Care Team Providers Care Die Filer Name Role Phone Contractor Krystal FERNANDEZ Primary Care Physician [phone] [facility] [facility] Date(s): 11/25/20 - 12/25/[address] [address] Allergies, Adverse Reactions, Alerts [...] 8:00:00 EDT, 11/27/20 10:53:00 EDT, Tablet, [facility]/pharmacy #[id number], Partial fill up... Start Date: 11/27/20 Stop Date: 01/27/21 Status: Ordered amLODIPine 10 mg oral tablet 10 mg, 1, tablet, By Mouth, Daily, # 90 tablet, Refills 3, Tot. Refills 3, Maintenance, 10/30/20 15:08:00 EDT, [id number] 184, cm, 10/30/20 14:15:00 EDT, Height, 123.27, kg, 06/25/19 13:22:00 EST, Dry Weight Start Date: 10/30/20 Status: Ordered aspirin 81 mg oral tablet 1 tablet = 81 mg, By Mouth, Daily, # 90 tablet, 3 Refills, Maintenance, 01/15/20 9:51:00 EDT, Tablet, [facility]/pharmacy #[id number], 184, cm, 01/15/20 9:11:00 [...] 9:49:00 EDT, Route to Pharmacy Electronically, [facility]/pharmacy #[id number], 184, cm, 01/29/20 14:16:00 [...] [id number], 184, cm, 02/28/20 15:58:00 [...] # 16 mL, 0 Refills, Maintenance, [facility] STORE 46864, 30, USE 1 SPRAY IN EACH NOSTRIL [...] 0 Refills, Maintenance, 11/11/20 9:35:00 EDT, Tablet, [facility]/pharmacy #9391, Partial fill upon patient request if the prescription is for a schedule II opioid drug., 184, cm, 11/11... Start Date: 11/11/20 Stop Date: 11/25/20 Status: Ordered sulindac 150 mg oral tablet See Instructions, TAKE 1 TABLET BY MOUTH TWICE DAILY NEEDED FOR PAIN, # 28 tablet, 0 Refills, Maintenance, [facility], 184, cm, 12/09/20 11:19:00 EDT, Height, 123.27, [...] provided increased discomfort related to nerves. 3Seeing [place] neurology and sleep. Given a trial of Tegretol 200 mg upto 2 tablets twice a day andadvised to continue with Lyrica 300 mg twice a day. Had some improvement of the facial pain with this regimen. 4Seeing [place] neurology and asleep. On 09/11/2018 started on [...]
--- OUTSIDE RECORDS SUMMARY | 2023-11-02 08:36 | XMS_ITS | Continuity of Care Document ---
Author Organization [facility] Address [address] [place] [address]- Care Team Providers Care Group Program Manager Name Role Phone Ivone Oneil MD Primary Care Physician [phone] Encounter [facility] Date(s): 10/14/22 - 11/13/[address] [address]- Allergies, Adverse Reactions, Alerts Substance Reaction Severity [...] acel(Tdap) 11/25/14 Given 1Result Comment: DILUENT LOT#: [id number] EXP: 11/2022 MFG: FRESENSIUS Medications Aripiprazole 2 [...] 1 Refills, Maintenance, 05/13/22 14:40:00 EST, Tablet, [facility]/pharmacy #4471, Partial fill upon [...] Need length 99 months Please send to [facility], 01/21/21 13:20:00 EDT, Supply Start Date: 01/21/21 [...] 11/08/22 8:09:00 EDT, Route to Pharmacy Electronically, [facility]/pharmacy #4471, Partial fill upon patient [...] 07/01/29 13:12:00 EST, Route to Pharmacy Electronically, [facility]/pharmacy #[id number], 183, cm, 08/22/22 8:28:00 EST,Height, [...] Gm, 2 Refills, Maintenance, 07/28/22 8:54:00 EST, [facility] STORE 91567, 30, APPLY TOPICALLY TO AFFECTED ARE TWICE A DAY NEEDED FOR PAIN, 183, cm, 07/07/22 10:54:00 E... Start Date: 07/28/22 Status: Ordered empagliflozin 25 mg oral tablet 1 tablet = 25 mg, By Mouth, Daily in AM, # 30 tablet, 11 Refills, Maintenance, 11/10/22 8:59:00 EDT, Tablet, [facility]/pharmacy #3113, Partial fill upon patient request if the [...] 2 Refills, Maintenance, 08/23/22 8:44:00 EST, Tablet, [facility]/pharmacy #4471, Label in libyan, cetrizine not effective, 1 tablet By Mouth Daily in AM, 183, cm, 08/22/22 8:28:00 EST, Height, 123.2, kg,... Start Date: 08/23/22 Status: Ordered loratadine 10 mg oral tablet 1, tablet, By Mouth, Daily, PRN, # 90 tablet, Refills 1, NEEDED FOR ALLERGIES, Route to PharmacyElectronically, [facility], 184, cm, 10/18/21 13:37:00 EDT, Height Start [...] # 40 gum, 0 Refills, [facility], 184, cm, 12/27/21 11:50:00 EDT, Height Start [...] # 180 capsule, 3 Refills, [facility], 90, TAKE 1 CAPSULE BY MOUTH TWICE A DAY, 183, cm, 02/08/22 6:42:00 EDT, Height, 123.2, kg, 02/07/22 12:47:00 EDT, Dry Weight Start Date: 02/09/22 Status: Ordered omeprazole 20 mg oral enteric coated capsule 1 capsule, By Mouth, Daily, # 90 capsule, 0 Refills, Maintenance, 09/09/22 8:09:00 EDT, [facility]/pharmacy #4471, 183, cm, 09/07/22 10:39:00 EDT, [...] Gm, 1 Refills, Maintenance, 08/31/22 9:06:00 EDT, [facility]/pharmacy #4471, 14,DISSOLVE 17 GRAMS [...] 12:43:00 EDT, Aerosol, Route to Pharmacy Electronically, [id number], [facility]/pharmacy #4471, 184, cm, 12/27/21 11:50:00 EDT, [...] Refills, Maintenance, 12/07/21 10:44:00 EDT, Tablet, [facility], Partial fill upon patient request if theprescription is for a schedule II opioid drug., 184... Start Date: 12/07/21 Status: Ordered valsartan 320 mg oral tablet 1 tablet, By Mouth, Daily, # 90 tablet, 3 Refills, Maintenance, 03/15/22 14:29:00 EDT, [facility], 183, cm, 02/08/22 6:42:00 EDT, Height, 123.2, [...] provided increased discomfort related to nerves. 3Seeing [place] neurology and sleep. Given a trial of [...] Care team information Care Team Personnel Name: Elena Olimpia Position: [facility] Office Staff Member Role: Lifetime Consulting Physician Name: Ivone Oneil MD Position: [facility] Physician - Primary Care Member Role: PCP Address: Address: [address] [place] [address]- [place] Care Team Related Persons Name: JARROD BRADFORD Address: home [address] [place] [address] Name: LOLA BRADFORD Address: home [address] [place] [address] Name: GOLDIE LERMA Address: [place] [address] Name: OLIMPIA LERMA Address: [place] [address] Name: KADE LERMA Address: home [address] [place] [address] Name: KADE LERMA Address: home [address] [place] [address]
--- OUTSIDE RECORDS SUMMARY | 2023-11-02 08:36 | XMS_ITS | Continuity of Care Document ---
Author Organization [facility] Address [address] [place] [address]- Care Team Providers Care Air Launch Weapons Technician Name Role Phone Ivone Oneil MD Primary Care Physician [phone] Encounter [facility] Date(s): 10/28/22 - 11/27/[address] [address] Attending Physician: Admpete, Cristian Admitting Physician: Admtr, [...] acel(Tdap) 11/25/14 Given 1Result Comment: DILUENT LOT#: [id number] EXP: 11/2022 MFG: FRESENSIUS Medications Aripiprazole 2 mg, Rx'd by ANJEL Bear, Refills 0, Maintenance, 10/04/22 8:25:00 EDT, Partial fill upon patient request if the prescription is for a schedule II opioid drug. Start Date: 10/04/22 Status: Ordered atorvastatin 20 mg oral tablet 1 tablet = 20 mg, By Mouth, Daily, # 90 tablet, 1 Refills, Maintenance, 11/17/22 10:19:00 EDT, Tablet, [facility]/pharmacy #4471, Partial [...] Need length 99 months Please send to [facility], 01/21/21 13:20:00 EDT, Supply Start Date: 01/21/21 Status: Ordered carbidopa-levodopa 25 mg-100 mg oral tablet 1 tablet, By Mouth, 2 times a day, Rx'd by neurology at [facility], # 60 tablet, 0 Refills, Maintenance, 10/04/22 8:23:00 EDT, Tablet, Partial fill upon patient request if the prescription is for a schedule II opioid drug. Start Date: 10/04/22 Status: Ordered chlorthalidone 25 mg oral tablet 25 mg, 1, tablet, By Mouth, Daily, # 30 tablet, Refills 5, Tot. Refills 5, Maintenance, 11/08/22 8:09:00 EDT, Route to Pharmacy Electronically, [facility]/pharmacy #4471, Partial fill upon [...] 07/01/29 13:12:00 EST, Route to Pharmacy Electronically, [facility]/pharmacy #4471, 183, cm, 08/22/22 8:28:00 [...] Gm, 1 Refills, Maintenance, 11/24/22 10:47:00 EDT, [facility]/pharmacy #4471, 30, APPLY TOPICALLY TO AFFECTED ARE TWICE A DAY NEEDED FOR PAIN, 183, cm, 11/10/22 8:32:0... Start Date: 11/24/22 Status: Ordered empagliflozin 25 mg oral tablet 1 tablet = 25 mg, By Mouth, Daily in AM, # 30 tablet, 11 Refills, Maintenance, 11/10/22 8:59:00 EDT, Tablet, [facility], Partial fill upon [...] Daily at bedtime, Rx'd by neurology at [facility], 0 Refills, Maintenance, 10/04/22 8:24:00 EDT, Capsule, Partial fill upon patient request if the prescription is for a schedule II opioid drug. Start Date: 10/04/22 Status: Ordered levocetirizine 5 mg oral tablet 1 tablet = 5 mg, By Mouth, Daily in AM, # 30 tablet, 5 Refills, Maintenance, 11/17/22 10:19:00 EDT,Tablet, [facility]/pharmacy #4471, Label in jamaican, cetrizine not effective, 1 tablet By Mouth Daily in AM, 183, cm, 11/10/22 8:32:00 EDT, Height, 123.2, kg,... Start Date: 11/17/22 Status: Ordered loratadine 10 mg oral tablet 1, tablet, By Mouth, Daily, PRN, # 90 tablet, Refills 1, NEEDED FOR ALLERGIES, Route to PharmacyElectronically, [facility]ORE 78451, 184, cm, 10/18/21 13:37:00 EDT, Height Start Date: 10/22/21 Status: Ordered Metamucil 3.4 gm/5.2 gm oral powder for reconstitution = 3.4 Gm, By Mouth, 3 times a day, PRN as needed for constipation, # 425 Gm, 11 Refills, Maintenance, 09/12/22 20:51:00 EDT, REC Powder, [facility]/pharmacy #4471, [...] SMOKING CESSATION, # 40 gum, 0 Refills, [facility], 184, cm, 12/27/21 11:50:00 EDT, Height Start [...] a day, # 180 capsule, 3 Refills, [facility], 90, TAKE 1 CAPSULE BY MOUTH TWICE A DAY, 183, cm, 02/08/22 6:42:00 EDT, Height, 123.2, kg, 02/07/22 12:47:00 EDT, Dry Weight Start Date: 02/09/22 Status: Ordered omeprazole 20 mg oral enteric coated capsule 1 capsule, By Mouth, Daily, # 90 capsule, 0 Refills, Maintenance, 11/24/22 10:47:00 EDT, [facility]/pharmacy #4471, 183, cm, 11/10/22 8:32:00 [...] Gm, 1 Refills, Maintenance, 08/31/22 9:06:00 EDT, [facility]/pharmacy #4471, 14,DISSOLVE 17 GRAMS IN WATER & DRINK ONCE A DAY UNTIL BM,... Start Date: 08/31/22 Status: Ordered pregabalin 300 mg oral capsule 1 capsule = 300 mg, By Mouth, 2 times a day, Rx'd by neurology at [facility], # 60 capsule, 0 Refills, Maintenance, [...] times a day, Rx'd by neurology at [facility], # 270 tablet, 0 Refills, Maintenance, [...] M51. 26 please send to [facility], 08/08/22 15:41:00 EST, Supply Start Date: 08/08/22 Status: Ordered Symbicort 160mcg/4.5mcg Inhaler 2, puffs, Inhalation, 2 times a day, # 6 Gm, Refills 0, Tot. Refills 0, Maintenance, 12/27/21 12:43:00 EDT, Aerosol, Route to Pharmacy Electronically, [id number], [facility]/pharmacy #4471, 184, cm, 12/27/21 [...] Refills, Maintenance, 03/15/22 14:29:00 EDT, [facility], 183, cm, 02/08/22 6:42:00 EDT, Height, 123.2, [...] provided increased discomfort related to nerves. 3Seeing [place] neurology and sleep. Given a trial of [...] Care Team Personnel Name: Nilayneil Casandra Position: [facility] Office Staff Member Role: Lifetime Consulting Physician Name: Ivone Oneil MD Position: [facility] Physician - Primary Care Member Role: PCP Address: Address: [address] [place], [place] [address]- Care Team Related Persons Name: JARROD BRADFORD Address: home [address] [place] [address] Name: LOLA BRADFORD Address: home [address] [place] [address] Name: GOLDIE LERMA Address: [place] [address] Name: CASANDRA LERMA Address: [place] [address] Name: KADE LERMA Address: home [address] [place] [address] Name: KADE LERMA Address: home [address] [place] [address]
--- OUTSIDE RECORDS SUMMARY | 2023-11-02 08:36 | XMS_ITS | Continuity of Care Document ---
Author Organization [facility] Address [address] [place] [address]- Care Team Providers Care Physician Practice Coordinator Name Role Phone Dayo Castano MD Primary Care Physician Encounter [facility] Date(s): 05/04/23 - 06/03/[address] [address]- Allergies, Adverse Reactions, Alerts Substance Reaction Severity [...] influenza virus vaccine, inactivated 04/16/15 Give n [id number] 12y+ bivalent booster vax 02/21/23 Given SARS-CoV-2 (COVID-19) mRNA BNT-162b2 vac 1 06/01/21 Given SARS-CoV-2 (COVID-19) mRNA BNT-162b2 vac 11/07/20 Recorded SARS-CoV-2 (COVID-19) mRNA BNT-162b2 vac 10/17/20 Recorded zoster vaccine, inactivated 06/18/19 Recorded zoster vaccine, inactivated 06/17/19 Recorded zoster vaccine, inactivated 11/25/17 Recorded Influenza Vaccine (oldterm) 02/17/17 Recorded pneumococcal 23-valent vaccine 02/16/16 Given tetanus/diphtheria/pertussis, acel(Tdap) 11/25/14 Given 1Result Comment: DILUENT LOT#: [id number] EXP: 11/2022 MFG: FRESENSIUS Medications Albuterol (Eqv-ProAir [...] Mouth, Daily at bedtime, Rx'd by neurology ([facility]), # 30 tablet, 0 Refills, Maintenance, [...] 3 Refills, Maintenance, 04/04/23 8:44:00 EDT, Tablet, [facility]/pharmacy #[id number], Partial fill upon patient request if [...] Need length 99 months Please send to [facility], 01/21/21 13:20:00 EDT, Supply Start Date: 01/21/21 [...] 04/04/23 8:45:00 EDT, Route to Pharmacy Electronically, [facility]/pharmacy #4471, Partial fill upon patient request if [...] 04/04/23 8:46:00 EDT, Route to Pharmacy Electronically, [facility]/pharmacy #4471, 183, cm, 04/04/23 8:24:00 EDT, Height, [...] Gm, 5 Refills, Maintenance, 01/26/23 9:21:00 EDT, [facility]/pharmacy #4471, 30, APPLY TOPICALLY TO AFFECTED ARE TWICEA DAY NEEDED FOR PAIN, 183, cm, 01/26/23 9:04:00... Start Date: 01/26/23 Status: Ordered diclofenac sodium 75 mg oral delayed release tablet 1 tablet = 75 mg, By Mouth, 2 times a day, PRN Pain , Severe, STOP DICLOFENAC GEL, # 60 tablet, 0 Refills, Maintenance, 05/19/23 12:59:00 EST, EC Tablet, [facility]/pharmacy #4471, Partial fill upon patientrequest if the [...] 0 Refills, Maintenance, 05/05/23 9:15:00 EST, Tablet, [facility]/pharmacy #4471, Partial fill upon patient request if [...] 04/04/23 8:42:00 EDT, Route to Pharmacy Electronically, [facility]/pharmacy #[id number], 183, cm, 04/04/23 8:24:00EDT, Height, 123.2, [...] SMOKING CESSATION, # 40 gum, 0 Refills, [facility] STORE 62770, 184, cm, 12/27/21 11:50:00 EDT, Height Start [...] Stop 03/29/24 8:46:00 EDT, 04/04/23 8:46:00 EDT, [facility]/pharmacy #4471, 1 capsule By Mouth 2 times a day,x90 days, 183, cm, 04/04/23 8:24:00 EDT, Height, 123.2, kg, 01/18... Start Date: 04/04/23 Stop Date: 03/29/24 Status: Ordered omeprazole 20 mg oral enteric coated capsule 1 capsule, By Mouth, Daily, # 90 capsule, 3 Refills, Maintenance, 04/04/23 8:46:00 EDT, [facility]/pharmacy #4471, 183, cm, 04/04/23 8:24:00 EDT, Height, [...] times a day, rx'd by neurology at [facility], # 120 tablet, Refills 0, Maintenance, [...] 8:44:00 EDT, Aerosol, Route to Pharmacy Electronically, [id number], [facility]/pharmacy #4471, 183, cm, 04/04/23 8:24:00 EDT, Height, [...] 11 Refills, Maintenance, 04/04/23 8:43:00 EDT, Tablet, [facility]/pharmacy #4471, Partial fill upon patient request if [...] provided increased discomfort related to nerves. 3Seeing [place] neurology and sleep. Given a trial of [...] Personnel Name: Olimpia Parker Position: [facility] Office Staff Member Role: Lifetime Consulting Physician Name: Dayo Castano MD Position: [facility] Physician - Primary Care Member Role: PCP Address: Address: [address] [place] [address]- Care Team Related Persons Name: JARROD BRADFORD Address: home [address] [place] [address] Name: LOLA BRADFORD Address: home [address] [place] [address] Name: GOLDIE LERMA Address: [place] [address] Name: LERMA, OLIMPIA Address: [place] [address] Name: KADE LERMA Address: [address] [place] [address] Name: KADE LERMA Address: home [address] [place] [address]
--- OUTSIDE RECORDS SUMMARY | 2023-11-02 08:36 | XMS_ITS | Continuity of Care Document ---
Author Organization [facility] Address [address] [place] [address]- Care Team Providers Care Mercury Recoverer Name Role Phone Ivone Oneil MD Primary Care Physician Encounter [facility] Date(s): 02/01/22 - 03/04/[address] [address]- Attending Physician: Not on Staff, Attending MD [...] acel(Tdap) 11/25/14 Given 1Result Comment: DILUENT LOT#: [id number] EXP: 11/2022 MFG: FRESENSIUS Medications amitriptyline 100 mg oral tablet 1 tablet = 100 mg, By Mouth, Daily at bedtime, # 30 tablet, 3 Refills, Maintenance, 12/27/21 12:09:00 EDT, Tablet, [facility]/pharmacy [...] 1 Refills, Maintenance, 11/29/21 14:23:00 EDT, Tablet, [facility]/pharmacy [...] Need length 99 months Please send to [facility], 01/21/21 13:20:00 EDT, Supply [...] EST, Tablet, [facility]/pharmacy #1581, Partial fill upon patient request if the [...] 5 Refills, Maintenance, 10/07/21 20:16:00 EDT, Tablet, [facility]/pharmacy #2971, Partial fill upon patient request if the [...] 1, NEEDED FOR ALLERGIES, Route to PharmacyElectronically, [facility], 184, cm, 10/18/21 13:37:00 EDT, Height Start Date: 10/22/21 Status: Ordered magnesium oxide 400 mg oral tablet 1 tablet = 400 mg, By Mouth, Daily, Rx'd by Neurology at [facility] Alisa [place]/ Dr. Murphy, 0 Refills, Maintenance, 04/15/21 23:30:00 [...] SMOKING CESSATION, # 40 gum, 0 Refills, [facility] 420[facility], 184, cm, 12/27/21 11:50:00 EDT, Height Start Date: 02/01/22 Status: Ordered omega-3 polyunsaturated fatty acids ethyl esters 1000 mg oral capsule 1 capsule, By Mouth, 2 times a day, # 180 capsule, 3 Refills, [facility] 80917, 90, TAKE 1 CAPSULE BY MOUTH TWICE A DAY, 183, cm, 02/08/22 6:42:00 EDT, Height, 123.2, kg, 02/07/22 12:47:00 EDT, Dry Weight Start Date: 02/09/22 Status: Ordered omeprazole 20 mg oral enteric coated capsule 1 capsule, By Mouth, Daily, # 90 capsule, 0 Refills, Maintenance, 02/14/22 21:23:00 EDT, [facility] 644[facility], 183, cm, 02/08/22 6:42:00 EDT, Height, 123.2, [...] EST, Capsule, [facility]/pharmacy #1311, Partial fill upon patient request if the prescription is for a schedule II o... Start Date: 06/29/21 Stop Date: 07/29/21 Status: Ordered primidone 50 mg oral tablet 100 mg, 2, tablet, By Mouth, 3 times a day, Rx'd by Neurology at [facility] Alisa Lazaro/ Dr. Murphy, Refills 0, Maintenance, [...] 12:43:00 EDT, Aerosol, Route to Pharmacy Electronically, [id number], [facility]/pharmacy #4471, 184, cm, 12/27/21 11:50:00 [...] provided increased discomfort related to nerves. 3Seeing [place] neurology and sleep. Given a trial of Tegretol 200 mg upto 2 tablets twice a day andadvised to continue with Lyrica 300 mg twice a day. Had some improvement of the facial pain with this regimen. 4Seeing [place] neurology and asleep. On 09/11/2018 started on [...] Team Personnel Name: Ivone Oneil MD Address: [address] [place] [address]
--- OUTSIDE RECORDS SUMMARY | 2023-11-02 08:36 | XMS_ITS | Continuity of Care Document ---
Author Organization [facility] Address [address] [place] [address]- Care Team Providers Care Social Media Community Manager Name Role Phone Contractor Krystal FERNANDEZ Primary Care Physician [phone] [place] [facility] Date(s): 06/14/21 - 08/12/[address] [address]- Encounter Diagnosis Generalized anxiety disorder with panic attacks(Discharge Diagnosis) - 07/13/21 Attending Physician: Silvio Mullen MD Admitting Physician: Silvio Mullen MD Referring Physician: Josh Houser DO Allergies, Adverse Reactions, Alerts Substance Reaction [...] acel(Tdap) 11/25/14 Given 1Result Comment: DILUENT LOT#: [id number] EXP: 11/2022 MFG: FRESENSIUS Medications amitriptyline 100 mg oral tablet 1 tablet = 100 mg, By Mouth, Daily at bedtime, # 30 tablet, 3 Refills, Maintenance, 08/11/21 10:02:00 EST, Tablet, [facility]/pharmacy #4471, Partial fill [...] Need length 99 months Please send to [email or web address], 01/21/21 13:20:00 EDT, Supply Start Date: 01/21/21 Status: Ordered carbidopa-levodopa 25 mg-100 mg oral tablet 1 tablet, By Mouth, 3 times a day, Rx'd by Neurology at [facility] Alisa [place]/ Dr. Murphy, # 270 tablet, 0 Refills, Maintenance, 04/15/21 23:30:00 EDT, Tablet, Partial fill upon patient request if the prescription is for a schedule II opioid drug. Start Date: 04/15/21 Status: Ordered chlorthalidone 25 mg oral tablet 1, tablet, By Mouth, Daily, # 30 tablet, Refills 5, Route to Pharmacy Electronically, [facility] STORE 48476, 184, cm, 03/30/21 16:08:00 EDT, Height, 123.27, [...] 0 Refills, Maintenance, 07/26/21 9:23:00 EST, Tablet, [facility]/pharmacy #4471, Partialfill upon patient request if the [...] 02/10/21 13:09:00 EDT, Ointment, [facility]/pharmacy #8001, Partial fill upon patient request if the prescription is for a schedule II opioid drug., 1 application Top... Start Date: 02/10/21 Status: Ordered magnesium oxide 400 mg oral tablet 1 tablet = 400 mg, By Mouth, Daily, Rx'd by Neurology at [facility] Alisa [place]/ Dr. Murphy, 0 Refills, Maintenance, 04/15/21 23:30:00 [...] Topically, Daily, for 6 week(s), Rx in Maldivian, # 42 patch, 1 Refills, Acute 08/16/21 16:13:00 EST, 05/24/21 16:13:00 EST, Patch, [facility]/pharmacy #4471, Partial fill upon [...] Mouth, Daily, # 90 capsule, 0 Refills, [facility] STORE 62827, 184, cm, 06/14/21 11:01:00 EST, Height, 123.27, [...] 28 tablet, 0 Refills, Maintenance, [facility], 184, cm, 02/01/21 10:51:00 EDT, Height, 123.27, kg, 06/25/19 13:22:00 EST, Dry Weight Start Date: 02/01/21 Status: Ordered Tylenol Extra Strength 500 mg oral tablet 2 tablet = 1,000 mg, By Mouth, 3 times a day, PRN as needed for pain, # 100 tablet, 5 Refills, Maintenance, 07/26/21 9:43:00 EST, Tablet, [facility]/pharmacy #1551, Partial fill upon patient request if the [...] provided increased discomfort related to nerves. 3Seeing [place] neurology and sleep. Given a trial of Tegretol 200 mg upto 2 tablets twice a day andadvised to continue with Lyrica 300 mg twice a day. Had some improvement of the facial pain with this regimen. 4Seeing [place] neurology and asleep. On 09/11/2018 started on a trial of primidone 50 mg, 1 tablet for 1 week and then twice a day. 5Seeing Aydin Castrejon 6per pt, he is on disability, seen by Dr. Pollock 7Simvastatin 40 mg d/sedrick. Diagnosis Diagnosis Type Effective Dates Health Status Clinical Service Informant Generalized anxiety disorder with panic attacks Discharge Diagnosis 07/13/21 Social History Social History Type Response Smoking Status 10 or more cigarette s (1/2 pack or more)/day in last 30 days; Interested in cessation: Yes; Other: 1ppd; entered on: 05/24/21 Sex
--- OUTSIDE RECORDS SUMMARY | 2023-11-02 08:36 | XMS_ITS | Continuity of Care Document ---
Author Organization [facility] Address [address] [place] [address]- Care Team Providers Care Manager Culture Name Role Phone Contractor Krystal FERNANDEZ Primary Care Physician [phone] Encounter [facility] Date(s): 04/23/21 - 05/23/[address] [address]- Allergies, Adverse Reactions, Alerts Substance Reaction Severity [...] Maintenance, 04/13/21 10:02:00 EDT, Tablet, [facility]/pharmacy #[id number], Partial fill upon patient [...] Maintenance, 03/03/21 17:24:00 EDT, Tablet, [facility]/pharmacy #[id number], Partial fill upo... Start Date: 03/03/21 Status: Ordered aspirin 81 mg oral delayed release tablet 81 mg, 1, tablet, By Mouth, Daily, # 90 tablet, Refills 0, Tot. Refills 0, Maintenance, 01/01/21 11:26:00 EDT, Route to Pharmacy Electronically, [facility]/pharmacy #[id number], Partial fill upon patient [...] Need length 99 months Please send to [facility], 01/21/21 13:20:00 EDT, Supply Start Date: 01/21/21 Status: Ordered carbidopa-levodopa 25 mg-100 mg oral tablet 1 tablet, By Mouth, 3 times a day, Rx'd by Neurology at [facility] Alisa Lazaro/ Dr. Murphy, # 270 tablet, 0 Refills, Maintenance, 04/15/21 23:30:00 EDT, Tablet, Partial fill upon patient request if the prescription is for a schedule II opioid drug. Start Date: 04/15/21 Status: Ordered chlorthalidone 25 mg oral tablet 1, tablet, By Mouth, Daily, # 30 tablet, Refills 5, Route to Pharmacy Electronically, [facility], 184, cm, 03/30/21 16:08:00 EDT, Height, 123.27, kg, 06/25/19 13:22:00 EST, Dry Weight Start Date: 04/07/21 Status: Ordered Claritin 10 mg oral tablet 10 mg, 1, tablet, By Mouth, Daily, more sea necesario para alergia, # 30 tablet, Refills 5, Tot. Refills 5, Maintenance, 04/13/21 10:04:00 EDT, Route to Pharmacy Electronically, [facility]/pharmacy #[id number], 184, cm, 04/13/21 9:26:00 EDT, Height, 123.27, kg, 01... Start Date: 04/13/21 Status: Ordered clonazePAM 2 mg oral tablet 1 tablet = 2 mg, By Mouth, Daily, # 20 tablet, 0 Refills, Maintenance, 05/09/21 13:42:00 EST, [facility]/pharmacy #[id number], Partial fill upon patient [...] Maintenance, 03/03/21 17:36:00 EDT, Cream, [facility]/pharmacy #[id number], Partial fill upon patient request if the prescription is for a schedule II opioid drug., 1 application Topically 3 ti... Start Date: 03/03/21 Status: Ordered cyanocobalamin 1000 mcg oral tablet 1,000 mcg, 1, tablet, By Mouth, Daily, # 90 tablet, Refills 11, Tot. Refills 11, Maintenance, 08/02/23 13:12:00 EST, Route to Pharmacy Electronically, [facility]/pharmacy #[id number], 184, cm, 01/01/21 10:56:00 [...] Maintenance, 01/11/21 15:23:00 EDT, Tablet, [facility]/pharmacy #[id number], Partial fill upon patient request if the prescription is for a schedule II opioid drug., 184, cm,... Start Date: 01/11/21 Status: Ordered escitalopram 5 mg oral tablet 1 tablet = 5 mg, By Mouth, Daily, This is a decrease in dose, # 14 tablet, 0 Refills, Maintenance, 04/05/21 15:54:00 EDT, Tablet, [facility]/pharmacy #[id number], Partial fill upon patient request if the prescription is for a schedule II opioid drug., 184, cm, 10... Start Date: 04/05/21 Stop Date: 04/19/21 Status: Ordered fluticasone 50 mcg/inh nasal spray See Instructions, USE 1 SPRAY IN EACH NOSTRIL EVERY MORNING, # 16 mL, 3 Refills, 01/29/21 9:11:00 EDT, [facility]/pharmacy #[id number], 30, USE 1 SPRAY [...] Maintenance, 02/10/21 13:09:00 EDT, Ointment, [facility]/pharmacy #[id number], Partial fill upon patient request if the prescription is for a schedule II opioid drug., 1 application Top... Start Date: 02/10/21 Status: Ordered magnesium oxide 400 mg oral tablet 1 tablet = 400 mg, By Mouth, Daily, [facility] Dr. Murphy, 0 Refills, Maintenance, 04/15/21 23:30:00 [...] Maintenance, 03/03/21 17:29:00 EDT, Tablet, [facility]/pharmacy #[id number], Partial fill upon p... Start Date: 03/03/21 Status: Ordered omega-3 polyunsaturated fatty acids ethyl esters 1000 mg oral capsule 1 capsule = 1,000 mg, By Mouth, 2 times a day, # 60 capsule, 11 Refills, Maintenance, 01/01/21 11:25:00 EDT, Capsule, [facility]/pharmacy #[id number], 1 capsule By Mouth [...] 28 tablet, 0 Refills, Maintenance, [facility], 184, cm, 02/01/21 10:51:00 EDT, Height, 123.27, [...] provided increased discomfort related to nerves. 3Seeing [place] neurology and sleep. Given a trial of Tegretol 200 mg upto 2 tablets twice a day andadvised to continue with Lyrica 300 mg twice a day. Had some improvement of the facial pain with this regimen. 4Seeing [place] neurology and asleep. On 09/11/2018 started [...]
--- OUTSIDE RECORDS SUMMARY | 2023-11-02 08:36 | XMS_ITS | Continuity of Care Document ---
Author Organization [facility] Address [address] [place] [address]- Care Team Providers Care Testing And Regulating Chief Name Role Phone Terence PRATHER, Azra Primary Care Physician [place] [facility] Date(s): 11/13/20 - 12/13/20 [facility] [address] [place], [place] [address] Attending Physician: Cristian Padilla Admitting [...] 01/27/21 8:00:00 EDT, 11/27/20 10:53:00 EDT, Tablet, [facility]/pharmacy #[id number], Partial fill up... Start Date: 11/27/20 Stop Date: 01/27/21 Status: Ordered amLODIPine 10 mg oral tablet 10 mg, 1, tablet, By Mouth, Daily, # 90 tablet, Refills 3, Tot. Refills 3, Maintenance, 10/30/20 15:08:00 EDT, [id number] 184, cm, 10/30/20 14:15:00 EDT, Height, 123.27, kg, 06/25/19 13:22:00 EST, Dry Weight Start Date: 10/30/20 Status: Ordered aspirin 81 mg oral tablet 1 tablet = 81 mg, By Mouth, Daily, # 90 tablet, 3 Refills, Maintenance, 01/15/20 9:51:00 EDT, Tablet, [facility]/pharmacy #[id number], 184, cm, 01/15/20 9:11:00 EDT, [...] 3 Refills, Maintenance, 10/30/20 15:08:00 EDT, Tablet, [facility]/pharmacy #[id number], 184, cm, 10/30/20 14:15:00 EDT, Height, 123.27, kg, 06/25/19 13:22:00 EST, Dry Weight Start Date: 10/30/20 Status: Ordered fluocinonide 0.05% topical cream See Instructions, 1 application Topically 3 times a day, as needed, for itchy rash. apply a thin film to affected areas, # 30 Gm, 0 Refills, Maintenance, 10/03/20 15:41:00 EDT, Cream, [facility]/pharmacy #[id number], Partial fill upon patient request if the presc... Start Date: 10/03/20 Status: Ordered fluticasone 50 mcg/inh nasal spray See Instructions, USE 1 SPRAY IN EACH NOSTRIL EVERY MORNING, # 16 mL, 0 Refills, Maintenance, [facility], 30, USE 1 SPRAY IN EACH NOSTRIL [...] Refills, Maintenance, 11/11/20 9:35:00 EDT, Tablet, [id number], Partial fill upon patient request if the [...] provided increased discomfort related to nerves. 3Seeing [place] neurology and sleep. Given a trial of Tegretol 200 mg upto 2 tablets twice a day andadvised to continue with Lyrica 300 mg twice a day. Had some improvement of the facial pain with this regimen. 4Seeing [place] neurology and asleep. On 09/11/2018 started on [...]
--- OUTSIDE RECORDS SUMMARY | 2023-11-02 08:36 | XMS_ITS | Continuity of Care Document ---
Author Organization [facility] Address [address] [place] [address]- Care Team Providers Care Dispatch Manager Name Role Phone Terence PRATHER, Azra Primary Care Physician Encounter [facility] Date(s): 02/06/20 - 03/07/20 [facility] [address] [place] [address]- [facility] Allergies, Adverse Reactions, Alerts Substance Reaction [...] 01/15/20 9:49:00 EDT, Route to Pharmacy Electronically, [facility]/pharmacy #[id number] Tablet, 184, cm, 01/15/20 9:11... Start Date: 01/15/20 Stop Date: 02/14/20 Status: Ordered amLODIPine 10 mg oral tablet 10 mg, 1, tablet, By Mouth, Daily, # 90 tablet, Refills 3, Tot. Refills 3, Maintenance, 01/15/20 9:51:00 EDT, [id number] 184, cm, 01/15/20 9:11:00 EDT, Height, 123.27, kg, 06/25/19 13:22:00 EST, Dry Weight Start Date: 01/15/20 Stop Date: 03/15/20 Status: Ordered aspirin 81 mg oral tablet 1 tablet = 81 mg, By Mouth, Daily, # 90 tablet, 3 Refills, Maintenance, 01/15/20 9:51:00 EDT, Tablet, [facility]/pharmacy #[id number], 184, cm, 01/15/20 9:11:00 EDT, [...] [id number] 184, cm, 02/28/20 15:58:00 [...] 3 Refills, Maintenance, 01/15/20 9:51:00 EDT, Tablet, [facility]/pharmacy #[id number], 184, cm, 01/15/20 9:11:00 EDT, Height, 123.27, kg, 06/25/19 13:22:00 EST, Dry Weight Start Date: 01/15/20 Stop Date: 03/15/20 Status: Ordered fluticasone 50 mcg/inh nasal spray See Instructions, USE 1 SPRAY IN EACH NOSTRIL EVERY MORNING, # 16 mL, 0 Refills, Maintenance, [id number], 30, USE 1 SPRAY IN EACH NOSTRIL [...] provided increased discomfort related to nerves. 3Seeing [place] neurology and sleep. Given a trial of [...]
--- OUTSIDE RECORDS SUMMARY | 2023-11-02 08:36 | XMS_ITS | Continuity of Care Document ---
Author Organization [facility] Address [address] [place] [address]- Care Team Providers Care Teacher Adult Education Name Role Phone Contractor Krystal FERNANDEZ Primary Care Physician Encounter [facility] Date(s): 10/07/21 - 11/06/[address] [address]- Allergies, Adverse Reactions, Alerts Substance Reaction Severity [...] acel(Tdap) 11/25/14 Given 1Result Comment: DILUENT LOT#: [id number] EXP: 11/2022 MFG: FRESENSIUS Medications amitriptyline 100 mg oral tablet 1 tablet = 100 mg, By Mouth, Daily at bedtime, # 30 tablet, 3 Refills, Maintenance, 08/11/21 10:02:00 EST, Tablet, [facility]/pharmacy #[id number], Partial [...] 03/03/21 17:24:00 EDT, Tablet, [facility]/pharmacy #[id number], Partial fill upo... Start Date: 03/03/21 [...] 0 Refills, Maintenance, 09/15/21 12:17:00 EDT, Tablet, [facility]/pharmacy #[id number], [...] 11:11:00 EDT, 10/28/21 11:11:00 EDT, CR Tablet, [facility]/pharmacy #[id number], Partial fill upon patient request if the [...] Need length 99 months Please send to [facility], 01/21/21 13:20:00 EDT, Supply Start [...] 8:08:00 EDT, Route to Pharmacy Electronically, [facility]/pharmacy #[id number], 184, cm, 09/15/21 9:12:00 EDT, Height Start Date: 09/28/21 Status: Ordered clonazePAM 2 mg oral tablet See Instructions, 1 tablet by mouth only NEEDED for severe panic attack. Dispense: #20 tabs per 20d., # 20 tablet, 0 Refills, Maintenance, 08/18/21 15:21:00 EST, Tablet, [facility]/pharmacy #[id number], Partial [...] Refills, Maintenance, 10/07/21 20:16:00 EDT, Cream, [facility]/pharmacy #[id number], Partial fill [...] [facility]/pharmacy #[id number], 184, cm, 07/26/21 9:11:00 EST, Height [...] Refills, Maintenance, 10/07/21 20:16:00 EDT, Tablet, [facility]/pharmacy #[id number], Partial fill upon patient request if the prescription is for a schedule II opioid drug., 184, cm,... Start Date: 10/07/21 Status: Ordered escitalopram 20 mg oral tablet 1 tablet = 20 mg, By Mouth, Daily, # 30 tablet, 3 Refills, Maintenance, 07/13/21 12:26:00 EST, Tablet, [facility]/pharmacy #[id number], d/c citalopram 10 mg, 184, cm, [...] Refills, Maintenance, 11/02/21 14:30:00 EDT, Ointment, [facility]/pharmacy #[id number], Partial fill upon patient request if the prescription is for a schedule II opioid drug., 1 application Top... Start Date: 11/02/21 Status: Ordered loratadine 10 mg oral tablet 1, tablet, By Mouth, Daily, PRN, # 90 tablet, Refills 1, NEEDED FOR ALLERGIES, Route to PharmacyElectronically, [facility], 184, cm, 10/18/21 13:37:00 EDT, Height Start Date: 10/22/21 Status: Ordered magnesium oxide 400 mg oral tablet 1 tablet = 400 mg, By Mouth, Daily, Rx'd by Neurology at [facility] Alisa Lazaro/ Dr. Murphy, 0 Refills, Maintenance, [...] EST, 10/28/21 11:13:00 EDT, REC Powder, [facility]/pharmacy #[id number], Partial fill [...] 3 Refills, Maintenance, 09/16/2211:15:00 EDT, Tablet, [facility]/pharmacy #[id number], Partial f... Start Date: 09/15/21 Status: Ordered omega-3 polyunsaturated fatty acids ethyl esters 1000 mg oral capsule 1 capsule = 1,000 mg, By Mouth, 2 times a day, # 60 capsule, 11 Refills, Maintenance, 12/27/21 11:25:00 EDT, Capsule, [facility]/pharmacy [...] 11:25:00 EDT, 01/01/21 11:25:00 EDT, Capsule, [facility]/pharmacy #[id number], 184, cm, [...] Refills, Maintenance, 06/29/21 15:41:00 EST, Capsule, [facility]/pharmacy #[id number], Partial fill upon patient request if the prescription is for a schedule II o... Start Date: 06/29/21 Stop Date: 07/29/21 Status: Ordered Shower Chair See Instructions, # 1 each, Refills 0, Tot. Refills 0, Maintenance, DX: M51. 26 please send to [facility], 01/21/21 13:20:00 EDT, Supply Start Date: 01/21/21 Status: Ordered sulindac 150 mg oral tablet See Instructions, TAKE 1 TABLET BY MOUTH TWICE A DAY NEEDED FOR PAIN, # 28 tablet, 0 Refills, Maintenance, [id number], 184, cm, 02/01/21 10:51:00 EDT, Height, 123.27, kg, 06/25/19 13:22:00 EST, Dry Weight Start Date: 02/01/21 Status: Ordered Tylenol Extra Strength 500 mg oral tablet 2 tablet = 1,000 mg, By Mouth, 3 times a day, PRN as needed for pain, # 100 tablet, 5 Refills, Maintenance, 07/26/21 9:43:00 EST, Tablet, [id number], Partial fill upon patient request if the [...] provided increased discomfort related to nerves. 3Seeing [place] neurology and sleep. Given a trial of Tegretol 200 mg upto 2 tablets twice a day andadvised to continue with Lyrica 300 mg twice a day. Had some improvement of the facial pain with this regimen. 4Seeing [place] neurology and asleep. On 09/11/2018 started on [...]
--- OUTSIDE RECORDS SUMMARY | 2023-11-02 08:36 | XMS_ITS | Continuity of Care Document ---
Author Organization [facility] Address [address] [place] [address]- Care Team Providers Care Director Of Corporate Real Estate Name Role Phone Sesar Perdue Primary Care Physician ( [phone] [place] [facility] [place] 01/29/20 - 02/05/20 [facility] [address] [place] [address]- [facility] Encounter Diagnosis Bilateral leg pain(Discharge Diagnosis) - 01/29/20 Recurrent major depression(Discharge Diagnosis) - 01/29/20 Poor historian(Discharge Diagnosis) - 01/29/20 Attending Physician: Sesar Perdue Allergies, Adverse Reactions, [...] 01/15/20 9:49:00 EDT, Route to Pharmacy Electronically, [facility]/pharmacy #[id number] Tablet, 184, cm, 01/15/20 9:11... Start Date: 01/15/20 Stop Date: 02/14/20 Status: Ordered amLODIPine 10 mg oral tablet 10 mg, 1, tablet, By Mouth, Daily, # 90 tablet, Refills 3, Tot. Refills 3, Maintenance, 01/15/20 9:51:00 EDT, Route to Pharmacy Electronically, [facility]/pharmacy #[id number], 184, cm, 01/15/20 9:11:00 [...] 01/15/20 12:52:00 EDT, Route to Pharmacy Electronically, [facility]/pharmacy #[id number], 184, cm, 01/15/20 9:52:00 EDT, Height, [...] Gm, 0 Refills, Maintenance, 01/15/20 12:52:00 EDT, [place], [facility]/pharmacy #[id number], 1 sprays Nares, Both Daily in [...] Refills, Maintenance, 01/15/20 9:58:00 EDT, EC Capsule, [id number], 184, cm, 01/15/20 9:52:00 [...] Effective Dates Health Status Clinical Service Informant Bilateral leg pain Discharge Diagnosis 01/29/20 Recurrent major depression Discharge Diagnosis 01/29/20 Poor historian Discharge Diagnosis 01/29/20 Vital Signs Most recent to oldest [Reference Range]: 1 Height 184 cm (01/29/20 2:16 PM) Oxygen Saturation [94-100 %] 98 % (01/29/20 2:16 PM) Pulse Rate [55-90 bpm] 62 bpm (01/29/20 2:16 PM) Blood Pressure [90-138/55-84 mm Hg] 122/ 76mm Hg (01/29/20 2:16 PM) Blood pressure sites Arm, left (01/29/20 2:16 PM) Social History Social History Type Response Smoking Status 5-9 cigarettes (betw een 1/4 to 1/2 pack)/day in last 30 days; Other: Quit in May 2019; entered on: 07/18/19 Sex
--- OUTSIDE RECORDS SUMMARY | 2023-11-02 08:36 | XMS_ITS | Continuity of Care Document ---
Author Organization [facility] Address [address] [place] [address]- Care Team Providers Care Nnp Name Role Phone Ivone Oneil MD Primary Care Physician [place] [facility] [place] 03/03/[address] [address] Attending Physician: Admpete, Cristian Admitting Physician: [...] acel(Tdap) 11/25/14 Given 1Result Comment: DILUENT LOT#: [id number] EXP: 11/2022 MFG: FRESENSIUS Medications amitriptyline 100 mg oral tablet 1 tablet = 100 mg, By Mouth, Daily at bedtime, # 30 tablet, 3 Refills, Maintenance, 12/27/21 12:09:00 EDT, Tablet, [facility]/pharmacy #[id number], Partial fill [...] Need length 99 months Please send to [facility], 01/21/21 13:20:00 EDT, Supply Start [...] 0 Refills, Maintenance, 08/18/21 15:21:00 EST, Tablet, [facility]/pharmacy #[id number], Partial fill upon patient request if the [...] 07/17/26 13:12:00 EST, Route to Pharmacy Electronically, [facility]/pharmacy #[id number], 184, cm, 07/26/21 9:11:00 EST, Height Start Date: 07/17/26 Stop Date: 07/01/29 Status: Ordered cyanocobalamin 1000 mcg oral tablet 1,000 mcg, 1, tablet, By Mouth, Daily, for 90 days, # 90 tablet, Refills 11, Tot. Refills 11, Hard Stop 07/17/26 13:12:00 EST, 08/02/23 13:12:00 EST, Route to Pharmacy Electronically, [facility]/pharmacy #[id number], 184, cm, 01/01/21 10:56:00 EDT, [...] 5 Refills, Maintenance, 10/07/21 20:16:00 EDT, Tablet, [facility]/pharmacy #[id number], Partial fill [...] 1, NEEDED FOR ALLERGIES, Route to PharmacyElectronically, [facility], 184, cm, 10/18/21 13:37:00 EDT, Height Start Date: 10/22/21 Status: Ordered magnesium oxide 400 mg oral tablet 1 tablet = 400 mg, By Mouth, Daily, Rx'd by Neurology at [facility] Alisa Lazaro/ Dr. Murphy, 0 [...] 11:13:00 EST, 10/28/21 11:13:00 EDT, REC Powder, [facility]/pharmacy #[id number], Partial [...] tablet, 3 Refills, Maintenance, 09/16/2211:15:00 EDT, Tablet, [facility]/pharmacy #[id number], Partial f... Start Date: 09/15/21 [...] SMOKING CESSATION, # 40 gum, 0 Refills, [facility], 184, cm, 12/27/21 11:50:00 EDT, Height Start Date: 02/01/22 Status: Ordered omega-3 polyunsaturated fatty acids ethyl esters 1000 mg oral capsule 1 capsule, By Mouth, 2 times a day, # 180 capsule, 3 Refills, [facility], 90, TAKE 1 CAPSULE BY MOUTH TWICE A DAY, 183, cm, 02/08/22 6:42:00 EDT, Height, 123.2, kg, 02/07/22 12:47:00 EDT, Dry Weight Start Date: 02/09/22 Status: Ordered omeprazole 20 mg oral enteric coated capsule 1 capsule, By Mouth, Daily, # 90 capsule, 0 Refills, Maintenance, 02/14/22 21:23:00 EDT, [facility], 183, cm, 02/08/22 6:42:00 EDT, Height, 123.2, [...] 0 Refills, Maintenance, 06/29/21 15:41:00 EST, Capsule, [facility]/pharmacy #[id number], Partial fill upon patient request if the prescription is for a schedule II o... Start Date: 06/29/21 Stop Date: 07/29/21 Status: Ordered primidone 50 mg oral tablet 100 mg, 2, tablet, By Mouth, 3 times a day, Rx'd by Neurology at [facility] Alisa Lazaro/ Dr. Murphy, Refills [...] please send to [facility], 01/21/21 13:20:00 EDT, Supply Start Date: 01/21/21 Status: Ordered Symbicort 160mcg/4.5mcg Inhaler 2, puffs, Inhalation, 2 times a day, # 6 Gm, Refills 0, Tot. Refills 0, Maintenance, 12/27/21 12:43:00 EDT, Aerosol, Route to Pharmacy Electronically, [id number], [facility]/pharmacy #[id number], 184, cm, 12/27/21 11:50:00 EDT, Height Start Date: 12/27/21 Status: Ordered Tylenol Extra Strength 500 mg oral tablet 2 tablet = 1,000 mg, By Mouth, 3 times a day, PRN as needed for pain, # 100 tablet, 5 Refills, Maintenance, 12/07/21 10:44:00 EDT, Tablet, [facility]/pharmacy #[id number], Partial fill [...] provided increased discomfort related to nerves. 3Seeing [place] neurology and sleep. Given a trial of Tegretol 200 mg upto 2 tablets twice a day andadvised to continue with Lyrica 300 mg twice a day. Had some improvement of the facial pain with this regimen. 4Seeing [place] neurology and asleep. On 09/11/2018 started on [...] Team Personnel Name: Ivone Oneil MD Address: [address] [place] [address]-
--- OUTSIDE RECORDS SUMMARY | 2023-11-02 08:36 | XMS_ITS | Continuity of Care Document ---
Author Organization [facility] Address [address] [place] [address]- Care Team Providers Care Hand Potter Name Role Phone Dayo Castano MD Primary Care Physician [phone] Encounter [facility] Date(s): 08/15/23 - 09/14/[address] [address]- Allergies, Adverse Reactions, Alerts Substance Reaction Severity [...] influenza virus vaccine, inactivated 04/16/15 Give n [id number] 12y+ bivalent booster vax 02/21/23 Given SARS-CoV-2 (COVID-19) mRNA BNT-162b2 vac 1 06/01/21 Given SARS-CoV-2 (COVID-19) mRNA BNT-162b2 vac 11/07/20 Recorded SARS-CoV-2 (COVID-19) mRNA BNT-162b2 vac 10/17/20 Recorded zoster vaccine, inactivated 06/18/19 Recorded zoster vaccine, inactivated 06/17/19 Recorded zoster vaccine, inactivated 11/25/17 Recorded Influenza Vaccine (oldterm) 02/17/17 Recorded pneumococcal 23-valent vaccine 02/16/16 Given tetanus/diphtheria/pertussis, acel(Tdap) 11/25/14 Given 1Result Comment: DILUENT LOT#: [id number] EXP: 11/2022 MFG: FRESENSIUS Medications Albuterol (Eqv-ProAir [...] Mouth, Daily at bedtime, Rx'd by neurology ([facility]), # 30 tablet, 0 Refills, Maintenance, [...] Need length 99 months Please send to [place] [facility], 01/21/21 13:20:00 EDT, Supply Start Date: 01/21/21 Status: Ordered carbidopa-levodopa 25 mg-100 mg oral tablet 1 tablet, By Mouth, 2 times a day, Rx'd by neurology at [facility], # 60 tablet, 0 Refills, Maintenance, 10/04/22 8:23:00 EDT, Tablet, Partial fill upon patient request if the prescription is for a schedule II opioid drug. Start Date: 10/04/22 Status: Ordered chlorthalidone 25 mg oral tablet 25 mg, 1, tablet, By Mouth, Daily in AM, Blood pressure, # 90 tablet, Refills 3, Tot. Refills 3, Maintenance, 04/04/23 8:45:00 EDT, Route to Pharmacy Electronically, [facility] [...] 10/06/23 14:26:00 EDT, 08/07/23 14:26:00 EST, Cream, [facility]/pharmacy #[id number], Partial fill [...] Gm, 5 Refills, Maintenance, 07/04/23 8:59:00 EST, [facility]/pharmacy #[id number], 30, APPLY TOPICALLY TO AFFECTED [...] at bedtime, Rx'd by neurology at [facility], 0 Refills, Maintenance, 10/04/22 8:24:00 EDT, Capsule, Partial fill upon patient request if the prescription is for a schedule II opioid drug. Start Date: 10/04/22 Status: Ordered loratadine 10 mg oral tablet 1, tablet, By Mouth, Daily, PRN, # 90 tablet, Refills 3, Tot. Refills 3, NEEDED FOR ALLERGIES, 04/04/23 8:42:00 EDT, Route to Pharmacy Electronically, [facility]/pharmacy #[id number], 183, cm, 04/04/23 8:24:00EDT, Height, 123.2, kg, 02/07/22 12:47:00 EDT, Dry... Start Date: 04/04/23 Status: Ordered Metamucil 3.4 gm/5.2 gm oral powder for reconstitution = 3.4 Gm, By Mouth, 3 times a day, PRN as needed for constipation, # 425 Gm, 11 Refills, Maintenance, 08/07/23 14:34:00 EST, REC Powder, [facility]/pharmacy #[id number], Partial fill upon [...] SMOKING CESSATION, # 40 gum, 0 Refills, [facility] STORE [id number], 184, cm, 12/27/21 11:50:00 EDT, Height Start [...] Stop 03/29/24 8:46:00 EDT, 04/04/23 8:46:00 EDT, [facility]/pharmacy #[id number], 1 capsule By Mouth 2 times a day,x90 days, 183, cm, 04/04/23 8:24:00 EDT, Height, 123.2, kg, 082... Start Date: 04/04/23 Stop Date: 03/29/24 Status: Ordered omeprazole 20 mg oral enteric coated capsule 1 capsule, By Mouth, Daily, # 90 capsule, 3 Refills, Maintenance, 04/04/23 8:46:00 EDT, [facility]/pharmacy #[id number], 183, cm, 04/04/23 8:24:00 EDT, [...] Gm, 1 Refills, Maintenance, 04/04/23 8:46:00 EDT, [facility]/pharmacy #[id number], 14,DISSOLVE 17 GRAMS IN WATER & DRINK ONCE A DAY UNTIL BM,... Start Date: 04/04/23 Status: Ordered pregabalin 300 mg oral capsule 1 capsule = 300 mg, By Mouth, 2 times a day, Rx'd by neurology at [facility], # 60 capsule, 0 Refills, Maintenance, 10/04/22 8:24:00 EDT, Capsule, Partial fill upon patient request if the prescription is for a schedule II opioid drug. Start Date: 10/04/22 Status: Ordered primidone 50 mg oral tablet 100 mg, 2, tablet, By Mouth, 2 times a day, rx'd by neurology at [facility], # 120 tablet, Refills 0, Maintenance, [...] times a day, Rx'd by neurology at [facility] - [facility], # 270 tablet, [...] 14:39:00 EST, Aerosol, Route to Pharmacy Electronically, [id number], [facility]/pharmacy #[id number], 183, cm, 08/07/23 14:26:00 EST, [...] 11 Refills, Maintenance, 04/04/23 8:43:00 EDT, Tablet, [facility]/pharmacy #[id number], Partial fill upon patient request if theprescription is for a schedule II opioid drug., 183... Start Date: 04/04/23 Status: Ordered valsartan 320 mg oral tablet 1 tablet, By Mouth, Daily, blood pressure, # 90 tablet, 3 Refills, Maintenance, 04/04/23 8:46:00 EDT, [facility]/pharmacy #[id number], 183, cm, 04/04/23 8:24:00 EDT, Height, 123.2, kg, 02/07/22 12:47:00 EDT, Dry Weight Start Date: 04/04/23 Status: Ordered Vitamin B-12 1000 mcg oral tablet 1, tablet, By Mouth, Daily, # 90 tablet, Refills 1, Maintenance, 08/28/23 13:12:00 EDT, Route to Pharmacy Electronically, [id number], 183, cm, 08/22/23 13:24:00 EST, Height, 123.2, kg, 02/07/22 12:47:00 EDT, Dry Weight Start Date: 08/28/23 Status: Ordered Xopenex HFA 45 mcg/inh inhalation aerosol 2 puffs, Inhalation, Every 4 hours, PRN Wheezing/Shortness of Breath, replaces Ventolin due to reaction, # 1 each, 1 Refills, Maintenance, 02/15/23 11:23:00 EDT, Aerosol, [id number], Partial fill upon patient request if the [...] provided increased discomfort related to nerves. 3Seeing [place] neurology and sleep. Given a trial of [...] Care Team Personnel Name: Casandra Parker Position: [facility] Office Staff Member Role: Lifetime Consulting Physician Name: Dayo Castano MD Position: [facility] Physician - Primary Care Member Role: PCP Address: Address: [address] [place] [address]- [place] Care Team Related Persons Name: JOSIAS BRADFORDLinda Address: home [address] [place] [address] Name: MURRAYYAHAIRALOLA Roberts Address: home [address] [place] [address] Name: GOLDIE LERMA Address: [place] [address] Name: CASANDRA LERMA Address: [place] [address] Name: KADE LERMA Address: home [address] [place] [id number] Name: KADE LERMA Address: home [address] [place] [address]
--- OUTSIDE RECORDS SUMMARY | 2023-11-02 08:36 | XMS_ITS | Continuity of Care Document ---
Author Organization [facility] Address [address] [place] [address]- Care Team Providers Care Senior Quality Assurance Engineer Name Role Phone Ivone Oneil MD Primary Care Physician Encounter [facility] Date(s): 12/23/21 - 02/04/[address] [address]- Attending Physician: Not on Staff, Attending MD [...] acel(Tdap) 11/25/14 Given 1Result Comment: DILUENT LOT#: [id number] EXP: 11/2022 MFG: FRESENSIUS Medications amitriptyline 100 mg oral tablet 1 tablet = 100 mg, By Mouth, Daily at bedtime, # 30 tablet, 3 Refills, Maintenance, 12/27/21 12:09:00 EDT, Tablet, [facility]/pharmacy #[id number], Partial [...] Need length 99 months Please send to [place] [facility]), 01/21/21 13:20:00 EDT, Supply Start Date: 01/21/21 Status: Ordered chlorthalidone 25 mg oral tablet 1, tablet, By Mouth, Daily, # 30 tablet, Refills 5, Tot. Refills 5, 09/28/21 8:08:00 EDT, Route to Pharmacy Electronically, [facility]/pharmacy #[id number], 184, cm, 09/15/21 9:12:00 EDT, Height Start Date: 09/28/21 Status: Ordered clonazePAM 2 mg oral tablet See Instructions, 1 tablet by mouth only NEEDED for severe panic attack. Dispense: #20 tabs per 20d., # 20 tablet, 0 Refills, Maintenance, 08/18/21 15:21:00 EST, Tablet, [facility]/pharmacy #[id number], Partial fill [...] 0 Refills, Maintenance, 12/09/21 15:41:00 EDT, Gel, [facility]/pharmacy #[id number], Partial fill upon patient request if the prescription is for a schedule... Start Date: 12/09/21 Stop Date: 12/16/21 Status: Ordered diclofenac 1% topical gel 1 application, Topically, 4 times a day, PRN Pain , Moderate, # 100 Gm, 1 Refills, Maintenance, 11/12/21 8:44:00 EDT, Gel, [facility]/pharmacy #[id number], Partial fill upon [...] Route to PharmacyElectronically, [facility] STORE [id number], 184, cm, 10/18/21 13:37:00 EDT, Height Start Date: 10/22/21 Status: Ordered magnesium oxide 400 mg oral tablet 1 tablet = 400 mg, By Mouth, Daily, Rx'd by Neurology at [facility] Alisa Brea/ Dr. Murphy, 0 Refills, Maintenance, 04/15/21 23:30:00 [...] SMOKING CESSATION, # 40 gum, 0 Refills, [facility], 184, cm, 12/27/21 11:50:00 EDT, Height Start [...] 12:43:00 EDT, Aerosol, Route to Pharmacy Electronically, [id number], [id number], 184, cm, 12/27/21 11:50:00 EDT, Height Start Date: 12/27/21 Status: Ordered Tylenol Extra Strength 500 mg oral tablet 2 tablet = 1,000 mg, By Mouth, 3 times a day, PRN as needed for pain, # 100 tablet, 5 Refills, Maintenance, 12/07/21 10:44:00 EDT, Tablet, [id number], Partial fill upon patient request if theprescription [...] provided increased discomfort related to nerves. 3Seeing [place] neurology and sleep. Given a trial of Tegretol 200 mg upto 2 tablets twice a day andadvised to continue with Lyrica 300 mg twice a day. Had some improvement of the facial pain with this regimen. 4Seeing [place] neurology and asleep. On 09/11/2018 started on [...]
--- OUTSIDE RECORDS SUMMARY | 2023-11-02 08:37 | XMS_ITS | Continuity of Care Document ---
Author Organization [facility] Address [address] [place] [address]- Care Team Providers Care Licensed Psychologist Manager Name Role Phone Terence PRATHER, Azra Primary Care Physician [phone] Encounter [facility] Date(s): 06/04/20 - 07/04/[address] [address] Attending Physician: AdmCristian freeman Admitting Physician: [...] EDT, Route to Pharmacy Electronically, [facility]/pharmacy #[id number], 184, cm, 01/15/20 9:11:00 EDT, Height, 123.27, kg, 06/25/19 13:22:00 EST, Dry Weight Start Date: 01/15/20 Stop Date: 03/15/20 Status: Ordered aspirin 81 mg oral tablet 1 tablet = 81 mg, By Mouth, Daily, # 90 tablet, 3 Refills, Maintenance, 01/15/20 9:51:00 EDT, Tablet, [facility]/pharmacy #[id number], 184, cm, 01/15/20 9:11:00 EDT, Height, [...] EDT, Route to Pharmacy Electronically, [facility]/pharmacy #[id number], 184, cm, 01/29/20 14:16:00 EDT, Height, [...] EST, Route to Pharmacy Electronically, [facility]/pharmacy #[id number], 184, cm, 02/28/20 15:58:00 EDT, Height, [...] Maintenance, 01/15/20 9:51:00 EDT, Tablet, [facility]/pharmacy #[id number], 184, cm, 01/15/20 9:11:00 EDT, Height, 123.27, kg, 06/25/19 13:22:00 EST, Dry Weight Start Date: 01/15/20 Stop Date: 03/15/20 Status: Ordered fluticasone 50 mcg/inh nasal spray See Instructions, USE 1 SPRAY IN EACH NOSTRIL EVERY MORNING, # 16 mL, 0 Refills, Maintenance, [facility] STORE 27713, 30, USE 1 SPRAY IN EACH NOSTRIL [...] provided increased discomfort related to nerves. 3Seeing [place] neurology and sleep. Given a trial of Tegretol 200 mg upto 2 tablets twice a day andadvised to continue with Lyrica 300 mg twice a day. Had some improvement of the facial pain with this regimen. 4Seeing [place] neurology and asleep. On 09/11/2018 started on [...]
--- OUTSIDE RECORDS SUMMARY | 2023-11-02 08:37 | XMS_ITS | Continuity of Care Document ---
Author Organization [facility] Address [address] [place] [address]- Care Team Providers Care Foreign Service Teacher Name Role Phone Contractor Krystal FERNANDEZ Primary Care Physician Encounter [facility] Date(s): 01/07/21 - 02/06/[address] [address]- Allergies, Adverse Reactions, Alerts Substance Reaction Severity [...] 15:08:00 EDT, Route to Pharmacy Electronically, [facility]/pharmacy #[id number], 184, cm, 10/30/20 14:15:00 EDT, Height, 123.27, kg, 06/25/19 13:22:00 EST, Dry Weight Start Date: 10/30/20 Status: Ordered aspirin 81 mg oral delayed release tablet 81 mg, 1, tablet, By Mouth, Daily, # 90 tablet, Refills 0, Tot. Refills 0, Maintenance, 01/01/21 11:26:00 EDT, Route to Pharmacy Electronically, [facility]/pharmacy #[id number], Partial fill upon [...] Need length 99 months Please send to [place] [facility], 01/21/21 13:20:00 EDT, Supply Start Date: 01/21/21 Status: Ordered Claritin 10 mg oral tablet 10 mg, 1, tablet, By Mouth, Daily, # 30 tablet, Refills 3, Tot. Refills 3, Maintenance, 01/29/21 9:13:00 EDT, Route to Pharmacy Electronically, [facility]/pharmacy #[id number], 184, cm, 01/29/21 9:06:00 EDT, [...] Refills, Maintenance, 01/01/21 11:24:00 EDT, Tablet, [facility]/pharmacy #[id number], 184, cm, 01/01/21 10:56:00 EDT, Height, 123.27, kg, 06/25/19 13:22:00 EST, Dry Weight Start Date: 01/01/21 Status: Ordered docusate sodium 100 mg oral tablet 1 tablet = 100 mg, By Mouth, 2 times a day, PRN for constipation, # 60 tablet, 5 Refills, Maintenance, 01/11/21 15:23:00 EDT, Tablet, [facility]/pharmacy #[id number], Partial fill upon patient request if the prescription is for a schedule II opioid drug., 184, cm,... Start Date: 01/11/21 Status: Ordered fluticasone 50 mcg/inh nasal spray See Instructions, USE 1 SPRAY IN EACH NOSTRIL EVERY MORNING, # 16 mL, 3 Refills, 01/29/21 9:11:00 EDT, [facility]/pharmacy #[id number], 30, USE 1 SPRAY IN [...] 2 Refills, Maintenance, 02/01/21 11:12:00 EDT, Ointment, [id number], Partial fill upon [...] Refills, Maintenance, 01/01/21 11:25:00 EDT, Capsule, [facility]/pharmacy #[id number], 1 capsule By Mouth 2 times a day,x30 days, 184, cm, 01/01/21 10:56:00 EDT, Height, 123.27, kg, 06/25/19 13:22:00... Start Date: 01/01/21 Stop Date: 12/27/21 Status: Ordered omeprazole 20 mg oral enteric coated capsule 1 capsule = 20 mg, By Mouth, Daily, # 30 capsule, 2 Refills, Maintenance, 02/06/20 16:40:00 EDT, ECCapsule, [facility]/pharmacy #[id number], 184, cm, 01/29/20 [...] 28 tablet, 0 Refills, Maintenance, [facility], 184, cm, 02/01/21 10:51:00 EDT, Height, 123.27, [...] provided increased discomfort related to nerves. 3Seeing [place] neurology and sleep. Given a trial of [...]
--- OUTSIDE RECORDS SUMMARY | 2023-11-02 08:37 | XMS_ITS | Continuity of Care Document ---
Author Organization [facility] Address [address] [place] [address]- Care Team Providers Care Buffing And Sueding Machine Operator Name Role Phone Ivone Oneil MD Primary Care Physician [phone] Encounter [facility] Date(s): 06/23/21 - 03/02/22 [facility] [address] [place] [address]- Discharge Disposition: A-D/C Home Attending Physician: Beata Sales MD Admitting Physician: Beata Sales MD Referring Physician: Josh Houser DO Allergies, Adverse Reactions, Alerts Substance Reaction Severity Status penicillin Unknown Active gabapentin Active hydrOXYzine hydrochloride Ac tive Ventolin HFA Active SEROquel Active traZODone Active Lantus Active ZyrTEC Active Flovent HFA [...] acel(Tdap) 11/25/14 Given 1Result Comment: DILUENT LOT#: [id number] EXP: 11/2022 MFG: FRESENSIUS Medications amitriptyline 100 [...] Need length 99 months [facility], 01/21/21 13:20:00 EDT, Supply Start [...] 5 Refills, Maintenance, 10/07/21 20:16:00 EDT, Tablet, [facility]/pharmacy #[id number], Partial fill upon patient request if the [...] 1, NEEDED FOR ALLERGIES, Route to PharmacyElectronically, [facility] STORE 75145, 184, cm, 10/18/21 13:37:00 EDT, Height Start Date: 10/22/21 Status: Ordered magnesium oxide 400 mg oral tablet 1 tablet = 400 mg, By Mouth, Daily, Rx'd by Neurology at [facility] Alisa Rogerson/ Dr. Murphy, 0 Refills, Maintenance, 04/15/21 23:30:00 [...] 11:13:00 EST, 10/28/21 11:13:00 EDT, REC Powder, [facility]/pharmacy #[id number], Partial fill [...] SMOKING CESSATION, # 40 gum, 0 Refills, [facility] STORE 85356, 184, cm, 12/27/21 11:50:00 EDT, Height Start Date: 02/01/22 Status: Ordered omega-3 polyunsaturated fatty acids ethyl esters 1000 mg oral capsule 1 capsule, By Mouth, 2 times a day, # 180 capsule, 3 Refills, [facility], 90, TAKE 1 CAPSULE BY MOUTH TWICE A DAY, 183, cm, 02/08/22 6:42:00 EDT, Height, 123.2, kg, 02/07/22 12:47:00 EDT, Dry Weight Start Date: 02/09/22 Status: Ordered omeprazole 20 mg oral enteric coated capsule 1 capsule, By Mouth, Daily, # 90 capsule, 0 Refills, Maintenance, 02/14/22 21:23:00 EDT, [facility], 183, cm, 02/08/22 6:42:00 EDT, Height, 123.2, [...] 15:41:00 EST, Capsule, [facility]/pharmacy #4711, Partial fill upon patient request if the prescription is for a schedule II o... Start Date: 06/29/21 Stop Date: 07/29/21 Status: Ordered primidone 50 mg oral tablet 100 mg, 2, tablet, By Mouth, 3 times a day, Rx'd by Neurology at [facility]isa [facility]/ Dr. Murphy, Refills 0, Maintenance, [...] 12:43:00 EDT, Aerosol, Route to Pharmacy Electronically, [id number], [facility]/pharmacy #[id number], 184, cm, 12/27/21 11:50:00 EDT, Height Start Date: 12/27/21 Status: Ordered Tylenol Extra Strength 500 mg oral tablet 2 tablet = 1,000 mg, By Mouth, 3 times a day, PRN as needed for pain, # 100 tablet, 5 Refills, Maintenance, 12/07/21 10:44:00 EDT, Tablet, [facility]/pharmacy #[id number], [...] provided increased discomfort related to nerves. 3Seeing [place] neurology and sleep. Given a trial of Tegretol 200 mg upto 2 tablets twice a day andadvised to continue with Lyrica 300 mg twice a day. Had some improvement of the facial pain with this regimen. 4Seeing [place] neurology and asleep. On 09/11/2018 started on [...] Personnel Name: Ivone Oneil MD Address: [address] [place] [address]
--- OUTSIDE RECORDS SUMMARY | 2023-11-02 08:37 | XMS_ITS | Continuity of Care Document ---
Author Organization [facility] Address [address] [place] [address]- Care Team Providers Care Salsa Dance Instructor Name Role Phone Contractor Krystal FERNANDEZ Primary Care Physician Encounter [facility] Date(s): 10/19/21 - 11/18/[address] [address]- Allergies, Adverse Reactions, Alerts Substance Reaction Severity [...] acel(Tdap) 11/25/14 Given 1Result Comment: DILUENT LOT#: [id number] EXP: 11/2022 MFG: FRESENSIUS Medications amitriptyline 100 [...] EDT, 10/28/21 11:11:00 EDT, CR Tablet, [facility]/pharmacy #[id number], Partial fill upon patient request if the [...] Need length 99 months Please send to [facility], 01/21/21 13:20:00 EDT, Supply Start Date: 01/21/21 Status: Ordered carbidopa-levodopa 25 mg-100 mg oral tablet 1 tablet, By Mouth, 3 times a day, Rx[facility]/ Dr. Murphy, # 270 tablet, 0 Refills, Maintenance, 04/15/21 23:30:00 EDT, Tablet, Partial fill upon patient request if the prescription is for a schedule II opioid drug. Start Date: 04/15/21 Status: Ordered chlorthalidone 25 mg oral tablet 1, tablet, By Mouth, Daily, # 30 tablet, Refills 5, Tot. Refills 5, 09/28/21 8:08:00 EDT, Route to Pharmacy Electronically, [facility]/pharmacy #[id number], 184, cm, 09/15/21 9:12:00 EDT, Height Start Date: 09/28/21 Status: Ordered clonazePAM 2 mg oral tablet See Instructions, 1 tablet by mouth only NEEDED for severe panic attack. Dispense: #20 tabs per 20d., # 20 tablet, 0 Refills, Maintenance, 08/18/21 15:21:00 EST, Tablet, [facility]/pharmacy [...] Refills, Maintenance, 10/07/21 20:16:00 EDT, Cream, [facility]/pharmacy #[id number], Partial fill upon patient request if the prescription is for a schedule II opioid drug., 1 application Topically 3 ti... Start Date: 10/07/21 Status: Ordered cyanocobalamin 1000 mcg oral tablet 1,000 mcg, 1, tablet, By Mouth, Daily, # 90 tablet, Refills 11, Tot. Refills 11, Maintenance, 07/17/26 13:12:00 EST, Route to Pharmacy Electronically, [facility]/pharmacy #[id number], 184, cm, 07/26/21 9:11:00 EST, Height Start Date: 07/17/26 Stop Date: 07/01/29 Status: Ordered cyanocobalamin 1000 mcg oral tablet 1,000 mcg, 1, tablet, By Mouth, Daily, for 90 days, # 90 tablet, Refills 11, Tot. Refills 11, Hard Stop 07/17/26 13:12:00 EST, 08/02/23 13:12:00 EST, Route to Pharmacy Electronically, [facility]/pharmacy #[id number], 184, cm, 01/01/21 10:56:00 EDT, Height, [...] 1 Refills, Maintenance, 11/12/21 8:44:00 EDT, Gel, [facility]/pharmacy #[id number], Partial fill upon patient request if the prescription isfor a schedule II opioid drug., 184, cm, 11/05/21 9... Start Date: 11/12/21 Status: Ordered docusate sodium 100 mg oral tablet 1 tablet = 100 mg, By Mouth, 2 times a day, PRN for constipation, # 60 tablet, 5 Refills, Maintenance, 10/07/21 20:16:00 EDT, Tablet, [facility]/pharmacy #[id number], Partial fill upon patient request if the prescription is for a schedule II opioid drug., 184, cm,... Start Date: 10/07/21 Status: Ordered doxycycline hyclate 100 mg oral tablet 1 tablet = 100 mg, By Mouth, Every 12 hours, for 10 days, # 20 tablet, 0 Refills, Acute 11/25/21 10:21:00 EDT, 11/15/21 10:21:00 EDT, Tablet, [facility]/pharmacy #[id number], Partial fill upon patient request if the prescription is for a schedule II opioid drug.,... Start Date: 11/15/21 Stop Date: 11/25/21 Status: Ordered escitalopram 20 mg oral tablet 1 tablet = 20 mg, By Mouth, Daily, # 30 tablet, 3 Refills, Maintenance, 07/13/21 12:26:00 EST, Tablet, [facility]/pharmacy #[id number], d/c citalopram 10 mg, 184, cm, [...] Refills, Maintenance, 11/02/21 14:30:00 EDT, Ointment, [facility]/pharmacy #[id number], Partial fill upon patient request if the prescription is for a schedule II opioid drug., 1 application Top... Start Date: 11/02/21 Status: Ordered loratadine 10 mg oral tablet 1, tablet, By Mouth, Daily, PRN, # 90 tablet, Refills 1, NEEDED FOR ALLERGIES, Route to PharmacyElectronically, [facility] ST[id number], 184, cm, 10/18/21 13:37:00 EDT, Height Start Date: 10/22/21 Status: Ordered magnesium oxide 400 mg oral tablet 1 tablet = 400 mg, By Mouth, Daily, [facility] Dr. Murphy, 0 Refills, Maintenance, 04/15/21 23:30:00 [...] EST, 10/28/21 11:13:00 EDT, REC Powder, [facility]/pharmacy #[id number], [...] 3 Refills, Maintenance, 09/16/2211:15:00 EDT, Tablet, [facility]/pharmacy #[id number], Partial f... Start Date: 09/15/21 Status: Ordered omega-3 polyunsaturated fatty acids ethyl esters 1000 mg oral capsule 1 capsule = 1,000 mg, By Mouth, 2 times a day, # 60 capsule, 11 Refills, Maintenance, 12/27/21 11:25:00 EDT, Capsule, [facility]/pharmacy #[id number], 1 capsule By Mouth 2 times a day,x30 days, 184, cm, 07/26/21 9:11:00 EST, Height Start Date: 12/27/21 Stop Date: 12/22/22 Status: Ordered omega-3 polyunsaturated fatty acids ethyl esters 1000 mg oral capsule 1 capsule = 1,000 mg, By Mouth, 2 times a day, for 30 days, # 60 capsule, 11 Refills, Hard Stop 12/27/21 11:25:00 EDT, 01/01/21 11:25:00 EDT, Capsule, [facility]/pharmacy #[id number], 184, cm, 01/01/21 10:56:00 EDT, Height, 123.27, kg, 06/25/19 13:22:00 EST, Dry W... Start Date: 01/01/21 Stop Date: 12/27/21 Status: Ordered omeprazole 20 mg oral enteric coated capsule 1 capsule, By Mouth, Daily, # 90 capsule, 0 Refills, 09/28/21 8:05:00 EDT, [facility]/pharmacy #[id number], 184,cm, 09/15/21 9:12:00 EDT, Height Start Date: 09/28/21 Status: Ordered pregabalin 300 mg oral capsule 1 capsule = 300 mg, By Mouth, 2 times a day, PRN pain, one tab twice daily prn pain, # 60 capsule, 0 Refills, Maintenance, 06/29/21 15:41:00 EST, Capsule, [facility]/pharmacy #[id number], [...] 28 tablet, 0 Refills, Maintenance, [id number], 184, cm, 02/01/21 10:51:00 EDT, Height, 123.27, kg, 06/25/19 13:22:00 EST, Dry Weight Start Date: 02/01/21 Status: Ordered Tylenol Extra Strength 500 mg oral tablet 2 tablet = 1,000 mg, By Mouth, 3 times a day, PRN as needed for pain, # 100 tablet, 5 Refills, Maintenance, 07/26/21 9:43:00 EST, Tablet, [id number], Partial fill upon patient request if the [...] provided increased discomfort related to nerves. 3Seeing [place] neurology and sleep. Given a trial of Tegretol 200 mg upto 2 tablets twice a day andadvised to continue with Lyrica 300 mg twice a day. Had some improvement of the facial pain with this regimen. 4Seeing [place] neurology and asleep. On 09/11/2018 started on [...]
--- OUTSIDE RECORDS SUMMARY | 2023-11-02 08:37 | XMS_ITS | Continuity of Care Document ---
Author Organization [facility] Address [address] [place] [address]- Care Team Providers Care Radiology Supervisor Name Role Phone Contractor Krystal FERNANDEZ Primary Care Physician Encounter [facility] Date(s): 01/21/21 - 02/20/[address] [address]- Allergies, Adverse Reactions, Alerts Substance Reaction Severity [...] 10/30/20 15:08:00 EDT, Route to Pharmacy Electronically, [facility]/pharmacy #[id number], 184, cm, 10/30/20 14:15:00 EDT, [...] Refills, Maintenance, 01/15/20 9:51:00 EDT, Tablet, [facility]/pharmacy #[id number], 184, cm, 01/15/20 9:11:00 EDT, [...] Need length 99 months Please send to [email or web address], 01/21/21 13:20:00 EDT, Supply Start Date: 01/21/21 Status: Ordered Claritin 10 mg oral tablet 10 mg, 1, tablet, By Mouth, Daily, # 30 tablet, Refills 3, Tot. Refills 3, Maintenance, 01/29/21 9:13:00 EDT, Route to Pharmacy Electronically, [facility]/pharmacy #[id number], 184, cm, 01/29/21 9:06:00 EDT, [...] 08/17/20 13:12:00 EST, Route to Pharmacy Electronically, [facility]/pharmacy #[id number], 184, cm, 02/28/20 15:58:00 EDT, [...] 3 Refills, Maintenance, 01/01/21 11:24:00 EDT, Tablet, [facility]/pharmacy #[id number], 184, cm, 01/01/21 [...] mL, 3 Refills, 01/29/21 9:11:00 EDT, [facility]/pharmacy #[id number], 30, USE 1 SPRAY IN [...] 11 Refills, Maintenance, 01/01/21 11:24:00 EDT, Tablet, [facility]/pharmacy #[id number], 184, cm, 01/01/21 10:56:00 EDT, Height, 123.27, kg, 06/25/19 13:22:00 EST, Dry Weight Start Date: 01/01/21 Status: Ordered omega-3 polyunsaturated fatty acids ethyl esters 1000 mg oral capsule 1 capsule = 1,000 mg, By Mouth, 2 times a day, # 60 capsule, 11 Refills, Maintenance, 01/01/21 11:25:00 EDT, Capsule, [facility]/pharmacy #[id number], 1 capsule By Mouth 2 times a day,x30 days, 184, cm, 01/01/21 10:56:00 EDT, Height, 123.27, kg, 06/25/19 13:22:00... Start Date: 01/01/21 Stop Date: 12/27/21 Status: Ordered omeprazole 20 mg oral enteric coated capsule 1 capsule = 20 mg, By Mouth, Daily, # 30 capsule, 2 Refills, Maintenance, 02/06/20 16:40:00 EDT, ECCapsule, [facility]/pharmacy #[id number], 184, cm, 01/29/20 14:16:00 EDT, [...] 28 tablet, 0 Refills, Maintenance, [id number], 184, cm, 02/01/21 10:51:00 EDT, Height, 123.27, [...] Refills, Maintenance, 02/18/21 8:37:00 EDT, Tablet, [id number], Partial fill upon patient request if the [...] provided increased discomfort related to nerves. 3Seeing [place] neurology and sleep. Given a trial of Tegretol 200 mg upto 2 tablets twice a day andadvised to continue with Lyrica 300 mg twice a day. Had some improvement of the facial pain with this regimen. 4Seeing [place] neurology and asleep. On 09/11/2018 started on [...]
--- OUTSIDE RECORDS SUMMARY | 2023-11-02 08:37 | XMS_ITS | Continuity of Care Document ---
Author Organization [facility] Address [address] [place] [address]- Care Team Providers Care Concrete Block Layer Name Role Phone Contractor Krystal FERNANDEZ Primary Care Physician Encounter [facility] Date(s): 02/04/21 - 03/06/[address] [address]- Allergies, Adverse Reactions, Alerts Substance Reaction Severity [...] 11:26:00 EDT, Route to Pharmacy Electronically, [facility]/pharmacy #[id number], Partial fill upon patient request if the prescription is for a schedule II opioid drug... Start Date: 01/01/21 Status: Ordered aspirin 81 mg oral tablet 1 tablet = 81 mg, By Mouth, Daily, # 90 tablet, 3 Refills, Maintenance, 01/15/20 9:51:00 EDT, Tablet, [facility]/pharmacy #[id number], 184, cm, 01/15/20 9:11:00 EDT, [...] Need length 99 months Please send to [facility], 01/21/21 13:20:00 EDT, Supply Start Date: 01/21/21 [...] 08/17/20 13:12:00 EST, [id number] 184, cm, 02/28/20 15:58:00 EDT, Height, 123.27,... Start Date: 08/17/20 Stop Date: 08/02/23 Status: Ordered cyanocobalamin 1000 mcg oral tablet 1,000 mcg, 1, tablet, By Mouth, Daily, # 90 tablet, Refills 11, Tot. Refills 11, Maintenance, 08/02/23 13:12:00 EST, [id number] 184, cm, 01/01/21 [...] Refills, Maintenance, 01/11/21 15:23:00 EDT, Tablet, [facility]/pharmacy #[id number], Partial fill upon patient request if the prescription is for a schedule II opioid drug., 184, cm,... Start Date: 01/11/21 Status: Ordered fluticasone 50 mcg/inh nasal spray See Instructions, USE 1 SPRAY IN EACH NOSTRIL EVERY MORNING, # 16 mL, 3 Refills, 01/29/21 9:11:00 EDT, [facility]/pharmacy #[id number], 30, USE 1 SPRAY IN [...] Refills, Maintenance, 02/10/21 13:09:00 EDT, Ointment, [facility]/pharmacy #[id number], Partial fill upon [...] Refills, Maintenance, 03/03/21 17:29:00 EDT, Tablet, [facility]/pharmacy #[id number], Partial fill upon p... Start [...] [facility] [place], 01/21/21 13:20:00 EDT, Supply Start Date: 01/21/21 Status: Ordered sulindac 150 mg oral tablet See Instructions, TAKE 1 TABLET BY MOUTH TWICE A DAY NEEDED FOR PAIN, # 28 tablet, 0 Refills, Maintenance, [id number], 184, cm, 02/01/21 10:51:00 EDT, Height, 123.27, [...] provided increased discomfort related to nerves. 3Seeing [place] neurology and sleep. Given a trial of Tegretol 200 mg upto 2 tablets twice a day andadvised to continue with Lyrica 300 mg twice a day. Had some improvement of the facial pain with this regimen. 4Seeing [place] neurology and asleep. On 09/11/2018 started on [...]
--- OUTSIDE RECORDS SUMMARY | 2023-11-02 08:37 | XMS_ITS | Continuity of Care Document ---
Author Organization [facility] Address [address] [place] [address]- Care Team Providers Care Compensation And Benefits Administrator Name Role Phone Contractor Krystal FERNANDEZ Primary Care Physician [phone] Encounter [facility] Date(s): 07/13/21 - 09/11/[address] [address] Attending Physician: Quinten Alvarado MD Referring Physician: [...] acel(Tdap) 11/25/14 Given 1Result Comment: DILUENT LOT#: [id number] EXP: 11/2022 MFG: FRESENSIUS Medications amitriptyline 100 mg oral tablet 1 tablet = 100 mg, By Mouth, Daily at bedtime, # 30 tablet, 3 Refills, Maintenance, 08/11/21 10:02:00 EST, Tablet, [facility]/pharmacy [...] 3 Refills, Maintenance, 03/03/21 17:24:00 EDT, Tablet, [facility]/pharmacy #[id number], Partial fill upo... Start Date: 03/03/21 Status: Ordered aspirin 81 mg oral delayed release tablet 81 mg, 1, tablet, By Mouth, Daily, # 90 tablet, Refills 0, Tot. Refills 0, Maintenance, 01/01/21 11:26:00 EDT, Route to Pharmacy Electronically, [facility]/pharmacy #[id number], Partial [...] 09/14/21 9:39:00 EDT, 09/07/21 9:39:00 EDT, Tablet, [facility]/pharmacy #[id number], g., 1 tablet By [...] Need length 99 months Please send to [facility], 01/21/21 13:20:00 EDT, Supply Start Date: 01/21/21 Status: Ordered carbidopa-levodopa 25 mg-100 mg oral tablet 1 tablet, By Mouth, 3 times a day, Rx'd by Neurology at [facility]/ Dr. Murphy, # 270 tablet, 0 Refills, Maintenance, 04/15/21 23:30:00 EDT, Tablet, Partial fill upon patient request if the prescription is for a schedule II opioid drug. Start Date: 04/15/21 Status: Ordered chlorthalidone 25 mg oral tablet 1, tablet, By Mouth, Daily, # 30 tablet, Refills 5, Route to Pharmacy Electronically, [id number], 184, cm, 03/30/21 16:08:00 EDT, Height, 123.27, kg, 06/25/19 13:22:00 EST, Dry Weight Start Date: 04/07/21 Status: Ordered Claritin 10 mg oral tablet 10 mg, 1, tablet, By Mouth, Daily, more sea necesario para alergia, # 30 tablet, Refills 5, Tot. Refills 5, Maintenance, 04/13/21 10:04:00 EDT, Route to Pharmacy Electronically, [facility]/pharmacy #[id number], 184, cm, 04/13/21 9:26:00 [...] 0 Refills, Maintenance, 03/03/21 17:36:00 EDT, Cream, [facility]/pharmacy #[id number], Partial [...] 5 Refills, Maintenance, 01/11/21 15:23:00 EDT, Tablet, [facility]/pharmacy #[id number], Partial fill upon patient request if the prescription is for a schedule II opioid drug., 184, cm,... Start Date: 01/11/21 Status: Ordered escitalopram 20 mg oral tablet 1 tablet = 20 mg, By Mouth, Daily, # 30 tablet, 3 Refills, Maintenance, 07/13/21 12:26:00 EST, Tablet, [facility]/pharmacy #[id number], d/c citalopram 10 mg, 184, cm, 06/14/21 11:01:00 EST, Height Start Date: 07/13/21 Status: Ordered fluticasone 50 mcg/inh nasal spray See Instructions, USE 1 SPRAY IN EACH NOSTRIL EVERY MORNING, # 16 mL, 3 Refills, 01/29/21 9:11:00 EDT, [facility]/pharmacy #[id number], 30, USE 1 SPRAY [...] 2 Refills, Maintenance, 02/10/21 13:09:00 EDT, Ointment, [facility]/pharmacy #[id number], Partial fill upon patient request if the prescription is for a schedule II opioid drug., 1 application Top... Start Date: 02/10/21 Status: Ordered magnesium oxide 400 mg oral tablet 1 tablet = 400 mg, By Mouth, Daily, [facility] Dr. Murphy, 0 Refills, Maintenance, 04/15/21 23:30:00 [...] 3 Refills, Maintenance, 03/03/21 17:29:00 EDT, Tablet, [facility]/pharmacy #[id number], Partial fill upon p... Start Date: 03/03/21 Status: Ordered omega-3 polyunsaturated fatty acids ethyl esters 1000 mg oral capsule 1 capsule = 1,000 mg, By Mouth, 2 times a day, # 60 capsule, 11 Refills, Maintenance, 12/27/21 11:25:00 EDT, Capsule, [facility]/pharmacy #[id number], 1 capsule By Mouth [...] 12/27/21 11:25:00 EDT, 01/01/21 11:25:00 EDT, Capsule, [facility]/pharmacy #[id number], 184, cm, 01/01/21 10:56:00 EDT, Height, 123.27, kg, 06/25/19 13:22:00 EST, Dry W... Start Date: 01/01/21 Stop Date: 12/27/21 Status: Ordered omeprazole 20 mg oral enteric coated capsule 1 capsule, By Mouth, Daily, # 90 capsule, 0 Refills, [id number], 184, cm, 06/14/21 11:01:00 EST, Height, 123.27, [...] 28 tablet, 0 Refills, Maintenance, [facility], 184, cm, 02/01/21 10:51:00 EDT, Height, 123.27, [...] provided increased discomfort related to nerves. 3Seeing [place] neurology and sleep. Given a trial of Tegretol 200 mg upto 2 tablets twice a day andadvised to continue with Lyrica 300 mg twice a day. Had some improvement of the facial pain with this regimen. 4Seeing [place] neurology and asleep. On 09/11/2018 started on [...]
--- OUTSIDE RECORDS SUMMARY | 2023-11-02 08:37 | XMS_ITS | Continuity of Care Document ---
Author Organization [facility] Address [address] [place] [address]- Care Team Providers Care Insurance Manager Name Role Phone Terence PRATHER, Azra Primary Care Physician [phone] Encounter [facility] Date(s): 02/10/20 - 04/18/20 [facility] [address] [place] [address] [facility] Attending Physician: Alonso Almaguer MD Admitting Physician: Alonso Almaguer MD Referring Physician: Sesar Perdue Allergies, Adverse Reactions, Alerts [...] 01/15/20 9:51:00 EDT, Route to Pharmacy Electronically, [facility]/pharmacy #[id number], 184, cm, 01/15/20 9:11:00 EDT, Height, 123.27, kg, 01/07/20 13:22:00 EST, Dry Weight Start Date: 01/15/20 Stop Date: 03/15/20 Status: Ordered aspirin 81 mg oral tablet 1 tablet = 81 mg, By Mouth, Daily, # 90 tablet, 3 Refills, Maintenance, 01/15/20 9:51:00 EDT, Tablet, [facility]/pharmacy #[id number], 184, cm, 01/15/20 9:11:00 EDT, Height, [...] 02/07/20 9:49:00 EDT, Route to Pharmacy Electronically, [facility]/pharmacy #[id number], 184, cm, 01/29/20 14:16:00 EDT, Height, [...] 13:12:00 EST, Route to Pharmacy Electronically, [facility]/pharmacy #[id number], 184, cm, 02/28/20 15:58:00 EDT, Height, [...] Refills, Maintenance, 01/15/20 9:51:00 EDT, Tablet, [facility]/pharmacy #[id number], 184, cm, 01/15/20 9:11:00 EDT, Height, 123.27, kg, 06/25/19 13:22:00 EST, Dry Weight Start Date: 01/15/20 Stop Date: 03/15/20 Status: Ordered fluticasone 50 mcg/inh nasal spray See Instructions, USE 1 SPRAY IN EACH NOSTRIL EVERY MORNING, # 16 mL, 0 Refills, Maintenance, [id number], 30, USE 1 SPRAY IN EACH NOSTRIL [...] provided increased discomfort related to nerves. 3Seeing [place] neurology and sleep. Given a trial of Tegretol 200 mg upto 2 tablets twice a day andadvised to continue with Lyrica 300 mg twice a day. Had some improvement of the facial pain with this regimen. 4Seeing [place] neurology and asleep. On 09/11/2018 started on a trial of primidone 50 mg, 1 tablet for 1 week and then twice a day. 5Seeing Aydni Castrejon 6per pt, he is on disability, seen by Dr. Pollock 7Simvastatin 40 mg d/sedrick. Social History Social History Type Response Smoking Status 5-9 cigarettes (betw een 1/4 to 1/2 pack)/day in last 30 days; Other: Quit in May 2019; entered on: 07/18/19 Sex
--- OUTSIDE RECORDS SUMMARY | 2023-11-02 08:37 | XMS_ITS | Continuity of Care Document ---
Author Organization [facility] Address [address] [place] [address]- Care Team Providers Care Locker Plant Attendant Name Role Phone Sesar Perdue Primary Care Physician [place] [facility] [place] 01/27/20 - 02/26/20 [facility] [address] [place] [address]- [facility] Allergies, Adverse Reactions, Alerts Substance Reaction Severity [...] 01/15/20 9:49:00 EDT, Route to Pharmacy Electronically, [facility]/pharmacy #[id number] Tablet, 184, cm, 01/15/20 9:11... Start Date: 01/15/20 Stop Date: 02/14/20 Status: Ordered amLODIPine 10 mg oral tablet 10 mg, 1, tablet, By Mouth, Daily, # 90 tablet, Refills 3, Tot. Refills 3, Maintenance, 01/15/20 9:51:00 EDT, [facility] 9:49:00 EDT, Route to Pharmacy Electronically, [facility]/pharmacy #[id number], 184, cm, 01/29/20 14:16:00 [...] 16 mL, 0 Refills, Maintenance, [facility], 30, USE 1 SPRAY IN EACH NOSTRIL [...] Refills,Acute 02/27/20 10:43:00 EDT, 02/20/20 10:43:00 EDT, [facility]/pharmacy #[id number], 184, cm, 01/29/20 14:16:00 [...] provided increased discomfort related to nerves. 3Seeing [place] neurology and sleep. Given a trial of Tegretol 200 mg upto 2 tablets twice a day andadvised to continue with Lyrica 300 mg twice a day. Had some improvement of the facial pain with this regimen. 4Seeing [place] neurology and asleep. On 09/11/2018 started on [...]
--- OUTSIDE RECORDS SUMMARY | 2023-11-02 08:37 | XMS_ITS | Continuity of Care Document ---
Author Organization [facility] Address [address] [place] [address]- Care Team Providers Care Lithoplate Maker Name Role Phone Ivone Oneil MD Primary Care Physician [phone] Encounter [facility] Date(s): 03/16/22 - 05/14/[address] [address]- Attending Physician: Ivone nOeil MD Admitting Physician: Ivone Oneil MD Allergies, [...] acel(Tdap) 11/25/14 Given 1Result Comment: DILUENT LOT#: [id number] EXP: 11/2022 MFG: FRESENSIUS Medications amitriptyline 100 [...] Need length 99 months Please send to [place] [facility], 01/21/21 13:20:00 EDT, Supply [...] capsule, 0 Refills, Maintenance,03/11/22 9:32:00 EDT, Capsule, [facility]/pharmacy #[id number], Patient reports that he is not allergic [...] 0 Refills, Maintenance, 08/18/21 15:21:00 EST, Tablet, [facility]/pharmacy #[id number], Partial [...] 07/17/26 13:12:00 EST, Route to Pharmacy Electronically, [facility]/pharmacy #[id number], 184, cm, 07/26/21 9:11:00 EST, [...] 5 Refills, Maintenance, 10/07/21 20:16:00 EDT, Tablet, [facility]/pharmacy #3651, Partial fill upon patient request if the [...] 1, NEEDED FOR ALLERGIES, Route to PharmacyElectronically, [facility], 184, cm, 10/18/21 13:37:00 EDT, Height Start Date: 10/22/21 Status: Ordered magnesium oxide 400 mg oral tablet 1 tablet = 400 mg, By Mouth, Daily, [facility] Dr. Murphy, 0 Refills, Maintenance, 04/15/21 23:30:00 [...] tablet, 3 Refills, Maintenance, 09/16/2211:15:00 EDT, Tablet, [facility]/pharmacy #[id number], Partial f... Start Date: 09/15/21 Status: Ordered Nicotine 2 mg gum See Instructions, CHEW 1 PIECE OF GUM EVERY 2 HOURS NEEDED FOR SMOKING CESSATION, # 40 gum, 0 Refills, [facility] 74[facility], 184, cm, 12/27/21 11:50:00 EDT, Height Start Date: 02/01/22 Status: Ordered omega-3 polyunsaturated fatty acids ethyl esters 1000 mg oral capsule 1 capsule, By Mouth, 2 times a day, # 180 capsule, 3 Refills, [facility] 48805, 90, TAKE 1 CAPSULE BY MOUTH TWICE A DAY, 183, cm, 02/08/22 6:42:00 EDT, Height, 123.2, kg, 02/07/22 12:47:00 EDT, Dry Weight Start Date: 02/09/22 Status: Ordered omeprazole 20 mg oral enteric coated capsule 1 capsule, By Mouth, Daily, # 90 capsule, 0 Refills, Maintenance, 05/13/22 14:40:00 EST, [facility]/pharmacy #[id number], 183, cm, 02/08/22 6:42:00 EDT, [...] Gm, 0 Refills, Maintenance, 03/22/22 8:30:00 EDT, [facility] STORE 79517, 14, DISSOLVE 17 GRAMS IN WATER & DRINK ONCE A DAY UNTIL BM, IF... Start Date: 03/22/22 Status: Ordered pregabalin 300 mg oral capsule 1 capsule = 300 mg, By Mouth, 2 times a day, PRN pain, one tab twice daily prn pain, # 60 capsule, 0 Refills, Maintenance, 06/29/21 15:41:00 EST, Capsule, [facility]/pharmacy #[id number], Partial fill upon patient request if the prescription is for a schedule II o... Start Date: 06/29/21 Stop Date: 07/29/21 Status: Ordered primidone 50 mg oral tablet 100 mg, 2, tablet, By Mouth, 3 times a day, [facility]. [facility], Refills 0, Maintenance, 03/07/19 [...] 12:43:00 EDT, Aerosol, Route to Pharmacy Electronically, [id number], [id number], 184, cm, 12/27/21 11:50:00 EDT, [...] Refills, Maintenance, 03/15/22 14:29:00 EDT, [facility], 183, cm, 02/08/22 6:42:00 EDT, Height, 123.2, [...] provided increased discomfort related to nerves. 3Seeing [place] neurology and sleep. Given a trial of [...] seen by Dr. Pollock 7Simvastatin 40 mg d/sedirck. Social History Social History Type Response Smoking Status 5-9 cigarettes (betw een 1/4 to 1/2 pack)/day in last 30 days entered on: 12/27/21 Sex Patient Care team information Care Team Personnel Name: Olimpia Parker Position: [facility] JUAN Office Staff Member Role: Lifetime Consulting Physician Name: Ivone Oneil MD Position: [facility] Primary Care Physician Member Role: PCP Address: Address: [address] [place] [address]- Care Team Related Persons Name: JARROD BRADFORD Address: home [address] [place] [address] Name: LOLA BRADFORD Address: home [address] [place] [address] Name: GOLDIE LERMA Address: home UNK Name: OLIMPIA LERMA Address: home UNK Name: KADE LERMA Address: home [address] [place] [address] Name: KADE LERMA Address: home [address] [place] [address]
--- OUTSIDE RECORDS SUMMARY | 2023-11-02 08:37 | XMS_ITS | Continuity of Care Document ---
Demographics Address [address] [facility] [address] [facility] [address] [place] [address] Mobile Email Address Preferred Language Romanian Marital Status Restoration Affiliation Restorationism Race White Ethnic Group or Author Organization [facility] ter Address [address] [place] [address]- Care Team Providers Care Cryptologic Technician Technical Name Role Phone Contractor Krystal FERNANDEZ Primary Care Physician [phone] Encounter [facility] Date(s): 06/23/21 - 08/12/[address] [address] Attending Physician: Saba Ruiz Admitting Physician: Saba Ruiz Referring Physician: Saba Ruiz Allergies, Adverse Reactions, Alerts Substance Reaction Severity [...] vaccine, inactivated 06/18/19 Recorded zoster vaccine, inactivated 12/30/19 Recorded zoster vaccine, inactivated 11/25/17 Recorded Influenza Vaccine (oldterm) 02/17/17 Recorded pneumococcal 23-valent vaccine 02/16/16 Given tetanus/diphtheria/pertussis, acel(Tdap) 11/25/14 Given 1Result Comment: DILUENT LOT#: [id number] EXP: 11/2022 MFG: FRESENSIUS Medications amitriptyline 100 mg oral tablet 1 tablet = 100 mg, By Mouth, Daily at bedtime, # 30 tablet, 3 Refills, Maintenance, 08/11/21 10:02:00 EST, Tablet, [facility]/pharmacy #[id number], Partial fill upon patient [...] Refills, Maintenance, 03/03/21 17:24:00 EDT, Tablet, [facility]/pharmacy #[id number], Partial fill upo... Start Date: 03/03/21 Status: Ordered aspirin 81 mg oral delayed release tablet 81 mg, 1, tablet, By Mouth, Daily, # 90 tablet, Refills 0, Tot. Refills 0, Maintenance, 01/01/21 11:26:00 EDT, Route to Pharmacy Electronically, [facility]/pharmacy #[id number], Partial fill upon patient [...] Need length 99 months Please send to [facility] [employer] [facility], 01/21/21 13:20:00 EDT, Supply Start Date: 01/21/21 Status: Ordered carbidopa-levodopa 25 mg-100 mg oral tablet 1 tablet, By Mouth, 3 times a day, Rx'd by Neurology at [facility]/ Dr. Murphy, # 270 tablet, 0 Refills, Maintenance, 04/15/21 23:30:00 EDT, Tablet, Partial fill upon patient request if the prescription is for a schedule II opioid drug. Start Date: 04/15/21 Status: Ordered chlorthalidone 25 mg oral tablet 1, tablet, By Mouth, Daily, # 30 tablet, Refills 5, Route to Pharmacy Electronically, [facility] STORE 97839, 184, cm, 03/30/21 16:08:00 EDT, Height, 123.27, kg, 06/25/19 13:22:00 EST, Dry Weight Start Date: 04/07/21 Status: Ordered Claritin 10 mg oral tablet 10 mg, 1, tablet, By Mouth, Daily, more sea necesario para alergia, # 30 tablet, Refills 5, Tot. Refills 5, Maintenance, 04/13/21 10:04:00 EDT, Route to Pharmacy Electronically, [facility]/pharmacy #[id number], 184, cm, 04/13/21 9:26:00 EDT, Height, 123.27, kg, 01... Start Date: 04/13/21 Status: Ordered clonazePAM 2 mg oral tablet See Instructions, 1 tablet by mouth only NEEDED for severe panic attack. Dispense: #20 tabs per 20d., # 20 tablet, 0 Refills, Maintenance, 07/26/21 9:23:00 EST, Tablet, [facility]/pharmacy #[id number], Partialfill upon patient request [...] Refills, Maintenance, 03/03/21 17:36:00 EDT, Cream, [facility]/pharmacy #[id number], Partial fill upon patient request if the prescription is for a schedule II opioid drug., 1 application Topically 3 ti... Start Date: 03/03/21 Status: Ordered cyanocobalamin 1000 mcg oral tablet 1,000 mcg, 1, tablet, By Mouth, Daily, # 90 tablet, Refills 11, Tot. Refills 11, Maintenance, 08/02/23 13:12:00 EST, Route to Pharmacy Electronically, [facility]/pharmacy #[id number], 184, cm, 01/01/21 10:56:00 [...] Refills, Maintenance, 01/11/21 15:23:00 EDT, Tablet, [facility]/pharmacy #[id number], Partial fill upon patient request if the prescription is for a schedule II opioid drug., 184, cm,... Start Date: 01/11/21 Status: Ordered escitalopram 20 mg oral tablet 1 tablet = 20 mg, By Mouth, Daily, # 30 tablet, 3 Refills, Maintenance, 07/13/21 12:26:00 EST, Tablet, [facility]/pharmacy #[id number], d/c citalopram 10 mg, [...] Refills, Maintenance, 02/10/21 13:09:00 EDT, Ointment, [facility]/pharmacy #[id number], Partial fill upon patient request if the prescription is for a schedule II opioid drug., 1 application Top... Start Date: 02/10/21 Status: Ordered magnesium oxide 400 mg oral tablet 1 tablet = 400 mg, By Mouth, Daily, Rx'd by Neurology at [facility]/ Dr. Murphy, 0 Refills, Maintenance, [...] 3 Refills, Maintenance, 03/03/21 17:29:00 EDT, Tablet, [facility]/pharmacy #[id number], Partial fill upon p... Start Date: 03/03/21 Status: Ordered nicotine 21 mg/24 hr transdermal film, extended release 1 patch, Topically, Daily, for 6 week(s), Rx in [place], # 42 patch, 1 Refills, Acute 08/16/21 [...] Mouth, Daily, # 90 capsule, 0 Refills, [facility] STORE 57438, 184, cm, 06/14/21 11:01:00 EST, Height, 123.27, [...] DX: M51. 26 please send to [facility], 01/21/21 13:20:00 EDT, Supply Start Date: 01/21/21 Status: Ordered sulindac 150 mg oral tablet See Instructions, TAKE 1 TABLET BY MOUTH TWICE A DAY NEEDED FOR PAIN, # 28 tablet, 0 Refills, Maintenance, [facility], 184, cm, 02/01/21 10:51:00 EDT, Height, 123.27, [...] provided increased discomfort related to nerves. 3Seeing [place] neurology and sleep. Given a trial of Tegretol 200 mg upto 2 tablets twice a day andadvised to continue with Lyrica 300 mg twice a day. Had some improvement of the facial pain with this regimen. 4Seeing [place] neurology and asleep. On 09/11/2018 started on [...]
--- OUTSIDE RECORDS SUMMARY | 2023-11-02 08:37 | XMS_ITS | Continuity of Care Document ---
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 Name Role Phone Dayo Castano MD Primary Care Physician Encounter [facility] R [id number] Date(s): 09/22/23 - 10/22/[address] [address]- Allergies, Adverse Reactions, Alerts Substance Reaction Severity [...] influenza virus vaccine, inactivated 04/16/15 Give n [id number] 12y+ bivalent booster vax 02/21/23 Given SARS-CoV-2 (COVID-19) mRNA BNT-162b2 vac 1 06/01/21 Given SARS-CoV-2 (COVID-19) mRNA BNT-162b2 vac 11/07/20 Recorded SARS-CoV-2 (COVID-19) mRNA BNT-162b2 vac 10/17/20 Recorded zoster vaccine, inactivated 06/18/19 Recorded zoster vaccine, inactivated 06/17/19 Recorded zoster vaccine, inactivated 11/25/17 Recorded Influenza Vaccine (oldterm) 02/17/17 Recorded pneumococcal 23-valent vaccine 02/16/16 Given tetanus/diphtheria/pertussis, acel(Tdap) 11/25/14 Given 1Result Comment: DILUENT LOT#: [id number] EXP: 11/2022 MFG: FRESENSIUS Medications Albuterol (Eqv-ProAir [...] Mouth, Daily at bedtime, Rx'd by neurology ([facility]), # 30 tablet, 0 Refills, Maintenance, 12/08/22 [...] length 99 months Please send to [place] [facility], 01/21/21 13:20:00 EDT, Supply Start Date: 01/21/21 [...] 04/04/23 8:45:00 EDT, Route to Pharmacy Electronically, [facility]/pharmacy #[id number], Partial fill upon patient request if the [...] EDT, Supply Start Date: 01/27/21 Status: Ordered [facility] Advanced Healing Ointment 41% [facility] [...] Gm, 5 Refills, Maintenance, 07/04/23 8:59:00 EST, [facility]/pharmacy #[id number], 30, APPLY TOPICALLY [...] 04/04/23 8:42:00 EDT, Route to Pharmacy Electronically, [facility]/pharmacy #[id number], 183, cm, 04/04/23 8:24:00EDT, Height, 123.2, kg, 02/07/22 12:47:00 EDT, Dry... Start Date: 04/04/23 Status: Ordered Metamucil 3.4 gm/5.2 gm oral powder for reconstitution = 3.4 Gm, By Mouth, 3 times a day, PRN as needed for constipation, # 425 Gm, 11 Refills, Maintenance, 08/07/23 14:34:00 EST, REC Powder, [facility]/pharmacy #[id number], Partial fill upon patient request if the prescription is for a schedule II opioid drug., 183,... Start Date: 08/07/23 Status: Ordered metFORMIN 500 mg oral tablet 2 tablet, By Mouth, 2 times a day, FOR DIABETES., # 360 tablet, 3 Refills, Maintenance, 09/25/23 15:02:00 EDT, [facility] STORE 25012, 183, cm, 08/22/23 13:24:00 EST, Height, 123.2, [...] SMOKING CESSATION, # 40 gum, 0 Refills, [facility] 74668, 184, cm, 12/27/21 11:50:00 EDT, Height Start [...] Stop 03/29/24 8:46:00 EDT, 04/04/23 8:46:00 EDT, [facility]/pharmacy #[id number], 1 capsule By Mouth 2 times a day,x90 days, 183, cm, 04/04/23 8:24:00 EDT, Height, 123.2, kg, 01/18... Start Date: 04/04/23 Stop Date: 03/29/24 Status: Ordered omeprazole 20 mg oral enteric coated capsule 1 capsule, By Mouth, Daily, # 90 capsule, 3 Refills, Maintenance, 04/04/23 8:46:00 EDT, [facility]/pharmacy #[id number], 183, cm, 04/04/23 8:24:00 [...] Gm, 1 Refills, Maintenance, 04/04/23 8:46:00 EDT, [facility]/pharmacy #[id number], 14,DISSOLVE 17 [...] times a day, rx'd by neurology at [facility], # 120 tablet, Refills 0, Maintenance, 12/08/22 [...] times a day, Rx'd by neurology at [facility]isa [facility], # 270 tablet, 0 [...] 26 please send to [facility], 08/08/22 15:41:00 EST, Supply Start Date: [...] 14:39:00 EST, Aerosol, Route to Pharmacy Electronically, [id number], [facility]/pharmacy #[id number], 183, cm, 08/07/23 14:26:00 [...] 11 Refills, Maintenance, 04/04/23 8:43:00 EDT, Tablet, [facility]/pharmacy #[id number], Partial fill upon patient request if theprescription is for a schedule II opioid drug., 183... Start Date: 04/04/23 Status: Ordered valsartan 320 mg oral tablet 1 tablet, By Mouth, Daily, blood pressure, # 90 tablet, 3 Refills, Maintenance, 04/04/23 8:46:00 EDT, [facility]/pharmacy #[id number], 183, cm, 04/04/23 8:24:00 EDT, Height, 123.2, kg, 02/07/22 12:47:00 EDT, Dry Weight Start Date: 04/04/23 Status: Ordered Vitamin B-12 1000 mcg oral tablet 1, tablet, By Mouth, Daily, # 90 tablet, Refills 1, Maintenance, 08/28/23 13:12:00 EDT, Route to Pharmacy Electronically, [facility] ST[facility] 55112, 183, cm, 08/22/23 13:24:00 EST, Height, 123.2, kg, 02/07/22 12:47:00 EDT, Dry Weight Start Date: 08/28/23 Status: Ordered Xopenex HFA 45 mcg/inh inhalation aerosol 2 puffs, Inhalation, Every 4 hours, PRN Wheezing/Shortness of Breath, replaces Ventolin due to reaction, # 1 each, 1 Refills, Maintenance, 02/15/23 11:23:00 EDT, [facility]erosol, [facility], Partial fill upon patient request if the [...] Care Team Personnel Name: Olimpia Parker Position: [facility] JUAN Office Staff Member Role: Lifetime Consulting Physician Name: Dayo Castano MD Position: [facility] Physician - Primary Care Member Role: PCP Address: Address: [address] [place] [address]- [place] Care Team Related Persons Name: JARROD BRADFORD Address: home [address] [place] [address] Name: LOLA BRADFORD Address: home [address] [place] [address] Name: GOLDIE LERMA Address: [place] [address] Name: OLIMPIA LERMA Address: [place] [address] Name: KADE LERMA Address: home [address] [place] [address] Name: KADE LERMA Address: home [address] [place] [address]
--- OUTSIDE RECORDS SUMMARY | 2023-11-02 08:37 | XMS_ITS | Continuity of Care Document ---
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 Role Phone Contractor Krystal FERNANDEZ Primary Care Physician Encounter [facility] Date(s): 01/05/21 - 02/04/[address] [address] Allergies, Adverse Reactions, Alerts Substance Reaction Severity Status penicillin Unknown Active gabapentin Active hydrOXYzine hydrochloride Ac tive Lantus Active Ventolin HFA Active Flovent HFA Active traZODone Active ZyrTEC Active SEROquel Active Immunizations Given and Recorded Vaccine Date Status Refusal Reason SARS-CoV-2 (COVID-19) mRNA BNT-162b2 vac 10/17/20 Recorded influenza virus vaccine, inactivated 03/02/20 Pavle rded influenza virus vaccine, inactivated 03/07/19 Give [...] Need length 99 months Please send to [place] [facility], 01/21/21 13:20:00 EDT, Supply Start [...] 2 Refills, Maintenance, 02/01/21 11:12:00 EDT, Ointment, [facility]/pharmacy #[id number], [...] 2 Refills, Maintenance, 02/06/20 16:40:00 EDT, ECCapsule, [facility]/pharmacy #[id number], 184, cm, 01/29/20 [...] 26 please send to [facility], 01/21/21 13:20:00 EDT, Supply Start Date: 01/21/21 Status: Ordered sulindac 150 mg oral tablet See Instructions, TAKE 1 TABLET BY MOUTH TWICE A DAY NEEDED FOR PAIN, # 28 tablet, 0 Refills, Maintenance, [facility], 184, cm, 02/01/21 10:51:00 EDT, Height, 123.27, [...] provided increased discomfort related to nerves. 3Seeing [place] neurology and sleep. Given a trial of Tegretol 200 mg upto 2 tablets twice a day andadvised to continue with Lyrica 300 mg twice a day. Had some improvement of the facial pain with this regimen. 4Seeing [place] neurology and asleep. On 09/11/2018 started on [...]
--- OUTSIDE RECORDS SUMMARY | 2023-11-02 08:37 | XMS_ITS | Continuity of Care Document ---
Author Organization [facility] Address [address] [place] [address]- Care Team Providers Care Cardiopulmonary Specialist Name Role Phone Contractor Krystal FERNANDEZ Primary Care Physician [phone] Encounter [facility] Date(s): 01/05/21 - 02/04/[address] [address] Allergies, Adverse Reactions, Alerts Substance [...] Need length 99 months Please send to [place] [facility], 01/21/21 13:20:00 EDT, Supply Start Date: [...] 28 tablet, 0 Refills, Maintenance, [facility], 184, cm, 02/01/21 10:51:00 EDT, Height, 123.27, [...] provided increased discomfort related to nerves. 3Seeing [place] neurology and sleep. Given a trial of Tegretol 200 mg upto 2 tablets twice a day andadvised to continue with Lyrica 300 mg twice a day. Had some improvement of the facial pain with this regimen. 4Seeing [place] neurology and asleep. On 09/11/2018 started on [...]
--- OUTSIDE RECORDS SUMMARY | 2023-11-02 08:37 | XMS_ITS | Continuity of Care Document ---
Author Organization [facility] ter Address [address] [place] [address]- Care Team Providers Care Electronic Commerce Specialist Name Role Phone Ivone Oneil MD Primary Care Physician Encounter [facility] [place] Date(s): 01/04/22 - 03/05/[address] [address] Attending Physician: Irwin Lu MD Admitting Physician: Irwin Lu MD Referring Physician: Artemio Roman MD Allergies, Adverse Reactions, Alerts Substance Reaction [...] acel(Tdap) 11/25/14 Given 1Result Comment: DILUENT LOT#: [id number] EXP: 11/2022 MFG: FRESENSIUS Medications amitriptyline 100 [...] Need length 99 months Please send to [employer] [facility], 01/21/21 13:20:00 EDT, Supply Start [...] 0 Refills, Maintenance, 08/18/21 15:21:00 EST, Tablet, [facility]/pharmacy #[id number], Partial fill upon patient request if the [...] 07/17/26 13:12:00 EST, Route to Pharmacy Electronically, [facility]/pharmacy #[id number], 184, cm, 07/26/21 9:11:00 [...] 5 Refills, Maintenance, 10/07/21 20:16:00 EDT, Tablet, [facility]/pharmacy #8101, Partial fill upon patient request if the [...] 1, NEEDED FOR ALLERGIES, Route to PharmacyElectronically, [facility], 184, cm, 10/18/21 13:37:00 EDT, Height Start Date: 10/22/21 Status: Ordered magnesium oxide 400 mg oral tablet 1 tablet = 400 mg, By Mouth, Daily, Rx'd by Neurology at [facility] [place]/ Dr. Murphy, 0 Refills, Maintenance, 04/15/21 23:30:00 [...] 11:13:00 EST, 10/28/21 11:13:00 EDT, REC Powder, [facility]/pharmacy #[id number], Partial fill [...] tablet, 3 Refills, Maintenance, 09/16/2211:15:00 EDT, Tablet, [facility]/pharmacy #[id number], Partial f... Start Date: [...] SMOKING CESSATION, # 40 gum, 0 Refills, [facility], 184, cm, 12/27/21 11:50:00 EDT, Height Start [...] Refills, Maintenance, 02/14/22 21:23:00 EDT, [facility], 183, cm, 02/08/22 6:42:00 EDT, Height, 123.2, [...] 0 Refills, Maintenance, 06/29/21 15:41:00 EST, Capsule, [facility]/pharmacy #7861, Partial fill upon patient request if the prescription is for a schedule II o... Start Date: 06/29/21 Stop Date: 07/29/21 Status: Ordered primidone 50 mg oral tablet 100 mg, 2, tablet, By Mouth, 3 times a day, [facility] Dr. Murphy, Refills 0, [...] 12:43:00 EDT, Aerosol, Route to Pharmacy Electronically, [id number], [facility]/pharmacy #4471, 184, cm, 12/27/21 11:50:00 [...] provided increased discomfort related to nerves. 3Seeing [place] neurology and sleep. Given a trial of Tegretol 200 mg upto 2 tablets twice a day andadvised to continue with Lyrica 300 mg twice a day. Had some improvement of the facial pain with this regimen. 4Seeing [place] neurology and asleep. On 09/11/2018 started on [...] Team Personnel Name: Ivone Oneil MD Address: [address] [place] [address]
--- OUTSIDE RECORDS SUMMARY | 2023-11-02 08:37 | XMS_ITS | Continuity of Care Document ---
Author Organization [facility] Address [address] [place] [address]- Care Team Providers Care Technical Assistant Name Role Phone Ivone Oneil MD Primary Care Physician Encounter [facility] Date(s): 02/15/22 - 03/17/[address] [address]- Allergies, Adverse Reactions, Alerts Substance Reaction Severity Status penicillin Unknown Active gabapentin Active Flovent HFA Active traZODone Active SEROquel Active hydrOXYzine [...] acel(Tdap) 11/25/14 Given 1Result Comment: DILUENT LOT#: [id number] EXP: 11/2022 MFG: FRESENSIUS Medications amitriptyline 100 [...] 3 Refills, Maintenance, 03/03/21 17:24:00 EDT, Tablet, [facility]/pharmacy #[id number], Partial fill upo... Start [...] 1 Refills, Maintenance, 11/29/21 14:23:00 EDT, Tablet, [facility]/pharmacy #[id number], Partial fill upon patient [...] Need length 99 months Please send to [place] [facility] [employer], 01/21/21 13:20:00 EDT, Supply Start Date: 01/21/21 [...] capsule, 0 Refills, Maintenance,03/11/22 9:32:00 EDT, Capsule, [facility]/pharmacy #[id number], Patient reports that he is not allergic [...] 0 Refills, Maintenance, 08/18/21 15:21:00 EST, Tablet, [facility]/pharmacy #[id number], Partial fill upon patient [...] 07/17/26 13:12:00 EST, [id number], cm, 07/26/21 9:11:00 EST, Height Start Date: 07/17/26 Stop Date: 07/01/29 Status: Ordered cyanocobalamin 1000 mcg oral tablet 1,000 mcg, 1, tablet, By Mouth, Daily, for 90 days, # 90 tablet, Refills 11, Tot. Refills 11, Hard Stop 07/17/26 13:12:00 EST, 08/02/23 13:12:00 EST, Route to Pharmacy Electronically, [facility]/pharmacy #[id number], 184, cm, 01/01/21 10:56:00 [...] 5 Refills, Maintenance, 10/07/21 20:16:00 EDT, Tablet, [facility]/pharmacy #[id number], Partial fill upon patient request if the [...] 1, NEEDED FOR ALLERGIES, Route to PharmacyElectronically, [facility] STORE [id number], 184, cm, 10/18/21 13:37:00 EDT, Height Start Date: 10/22/21 Status: Ordered magnesium oxide 400 mg oral tablet 1 tablet = 400 mg, By Mouth, Daily, Rx'd by Neurology at [facility] [place]/ Dr. Murphy, 0 Refills, Maintenance, 04/15/21 23:30:00 [...] 11:13:00 EST, 10/28/21 11:13:00 EDT, REC Powder, [facility]/pharmacy #[id number], Partial fill upon patient [...] tablet, 3 Refills, Maintenance, 09/16/2211:15:00 EDT, Tablet, [facility]/pharmacy #[id number], Partial f... Start Date: [...] SMOKING CESSATION, # 40 gum, 0 Refills, [id number], 184, cm, 12/27/21 11:50:00 EDT, Height Start Date: 02/01/22 Status: Ordered omega-3 polyunsaturated fatty acids ethyl esters 1000 mg oral capsule 1 capsule, By Mouth, 2 times a day, # 180 capsule, 3 Refills, [id number], 90, TAKE 1 CAPSULE BY MOUTH TWICE A DAY, 183, cm, 02/08/22 6:42:00 EDT, Height, 123.2, kg, 02/07/22 12:47:00 EDT, Dry Weight Start Date: 02/09/22 Status: Ordered omeprazole 20 mg oral enteric coated capsule 1 capsule, By Mouth, Daily, # 90 capsule, 0 Refills, Maintenance, 02/14/22 21:23:00 EDT, [id number], 183, cm, 02/08/22 6:42:00 EDT, Height, 123.2, [...] 0 Refills, Maintenance, 06/29/21 15:41:00 EST, Capsule, [facility]/pharmacy #[id number], Partial fill upon patient request if the prescription is for a schedule II o... Start Date: 06/29/21 Stop Date: 07/29/21 Status: Ordered primidone 50 mg oral tablet 100 mg, 2, tablet, By Mouth, 3 times a day, Rx'd by Neurology at [facility] [place]/ Dr. Murphy, Refills 0, Maintenance, 03/07/19 8:44:30 [...] M51. 26 please send to [facility], 01/21/21 13:20:00 EDT, Supply Start Date: 01/21/21 Status: Ordered Symbicort 160mcg/4.5mcg Inhaler 2, puffs, Inhalation, 2 times a day, # 6 Gm, Refills 0, Tot. Refills 0, Maintenance, 12/27/21 12:43:00 EDT, Aerosol, Route to Pharmacy Electronically, [id number], [facility]/pharmacy #[id number], 184, cm, 12/27/21 11:50:00 EDT, Height Start Date: 12/27/21 Status: Ordered Tylenol Extra Strength 500 mg oral tablet 2 tablet = 1,000 mg, By Mouth, 3 times a day, PRN as needed for pain, # 100 tablet, 5 Refills, Maintenance, 12/07/21 10:44:00 EDT, Tablet, [facility]/pharmacy #[id number], Partial fill upon patient request if theprescription is for a schedule II opioid drug., 184... Start Date: 12/07/21 Status: Ordered valsartan 320 mg oral tablet 1 tablet, By Mouth, Daily, # 90 tablet, 3 Refills, Maintenance, 03/15/22 14:29:00 EDT, [id number], 183, cm, 02/08/22 6:42:00 EDT, Height, 123.2, [...] increased discomfort related to nerves. 3Seeing [place] neurology and sleep. Given a trial of Tegretol 200 mg upto 2 tablets twice a day andadvised to continue with Lyrica 300 mg twice a day. Had some improvement of the facial pain with this regimen. 4Seeing [place] neurology and asleep. On 09/11/2018 started on [...] Personnel Name: Ivone Oneil MD Address: Address: [address] [place] [address]
--- OUTSIDE RECORDS SUMMARY | 2023-11-02 08:38 | XMS_ITS | Continuity of Care Document ---
Author Organization [facility] Address [address] [place] [address]- Care Team Providers Care Woodworking Bench Carpenter Name Role Phone Contractor Krystal FERNANDEZ Primary Care Physician Encounter [facility] Date(s): 02/19/21 - 03/21/[address] [address]- Allergies, Adverse Reactions, Alerts Substance Reaction Severity [...] 1 Refills, Maintenance, 03/17/21 10:19:00 EDT, Tablet, [facility]/pharmacy #[id number], Partial fill [...] 3 Refills, Maintenance, 03/03/21 17:24:00 EDT, Tablet, [facility]/pharmacy #[id number], Partial fill upo... Start Date: 03/03/21 Status: Ordered aspirin 81 mg oral delayed release tablet 81 mg, 1, tablet, By Mouth, Daily, # 90 tablet, Refills 0, Tot. Refills 0, Maintenance, 01/01/21 11:26:00 EDT, Route to Pharmacy Electronically, [facility]/pharmacy #[id number], Partial fill upon patient request if the prescription is for a schedule II opioid drug... Start Date: 01/01/21 Status: Ordered aspirin 81 mg oral tablet 1 tablet = 81 mg, By Mouth, Daily, # 90 tablet, 3 Refills, Maintenance, 01/15/20 9:51:00 EDT, Tablet, [facility]/pharmacy #[id number], 184, cm, 01/15/20 9:11:00 EDT, [...] Need length 99 months Please send to [place] [email or web address], 01/21/21 13:20:00 EDT, Supply Start Date: 01/21/21 Status: Ordered chlorthalidone 25 mg oral tablet 25 mg, 1, tablet, By Mouth, Daily, # 30 tablet, Refills 0, Tot. Refills 0, Maintenance, 03/03/21 17:24:00 EDT, Route to Pharmacy Electronically, [facility]/pharmacy #[id number], Partial fill upon patient request if the prescription is for a schedule II opioid drug... Start Date: 03/03/21 Status: Ordered Claritin 10 mg oral tablet 10 mg, 1, tablet, By Mouth, Daily, # 30 tablet, Refills 3, Tot. Refills 3, Maintenance, 01/29/21 9:13:00 EDT, Route to Pharmacy Electronically, [facility]/pharmacy #[id number], 184, cm, 01/29/21 9:06:00 EDT, [...] 0 Refills, Maintenance, 03/03/21 17:36:00 EDT, Cream, [facility]/pharmacy #[id number], Partial fill upon patient request if the prescription is for a schedule II opioid drug., 1 application Topically 3 ti... Start Date: 03/03/21 Status: Ordered cyanocobalamin 1000 mcg oral tablet 1,000 mcg, 1, tablet, By Mouth, Daily, for 90 days, # 90 tablet, Refills 11, Tot. Refills 11, Hard Stop 08/02/23 13:12:00 EST, 08/17/20 13:12:00 EST, Route to Pharmacy Electronically, [facility]/pharmacy #[id number], 184, cm, 02/28/20 15:58:00 EDT, [...] 5 Refills, Maintenance, 01/11/21 15:23:00 EDT, Tablet, [facility]/pharmacy #[id number], Partial fill upon patient request if the prescription is for a schedule II opioid drug., 184, cm,... Start Date: 01/11/21 Status: Ordered escitalopram 10 mg oral tablet 1 tablet = 10 mg, By Mouth, Daily, Reduction in dose, # 30 tablet, 2 Refills, Maintenance, 03/18/2113:12:00 EDT, Tablet, [facility]/pharmacy #[id number], Partial fill [...] 2 Refills, Maintenance, 02/10/21 13:09:00 EDT, Ointment, [facility]/pharmacy #[id number], Partial fill upon patient request if the [...] 3 Refills, Maintenance, 03/03/21 17:29:00 EDT, Tablet, [facility]/pharmacy #[id number], Partial fill upon p... Start Date: 03/03/21 Status: Ordered omega-3 polyunsaturated fatty acids ethyl esters 1000 mg oral capsule 1 capsule = 1,000 mg, By Mouth, 2 times a day, # 60 capsule, 11 Refills, Maintenance, 01/01/21 11:25:00 EDT, Capsule, [facility]/pharmacy #[id number], 1 capsule By Mouth 2 times a day,x30 days, 184, cm, 01/01/21 10:56:00 EDT, Height, 123.27, kg, 06/25/19 13:22:00... Start Date: 01/01/21 Stop Date: 12/27/21 Status: Ordered omeprazole 20 mg oral enteric coated capsule 1 capsule = 20 mg, By Mouth, Daily, # 30 capsule, 2 Refills, Maintenance, 02/24/21 9:28:00 EDT, EC Capsule, [facility]/pharmacy #[id number], 184, cm, 02/03/21 10:57:00 EDT, [...] 28 tablet, 0 Refills, Maintenance, [id number], 184, cm, 02/01/21 10:51:00 EDT, Height, 123.27, [...] 5 Refills, Maintenance, 03/11/21 9:40:00 EDT, Tablet, [facility]/pharmacy #[id number], Partial fill upon patient request if the [...] Myofascial pain(Confirmed) Active Obesity (BMI 30-39.9)(Confirmed) Active EKRMIT (obstructive sleep apnea ): bipap 19/14 2 [...] provided increased discomfort related to nerves. 3Seeing [place] neurology and sleep. Given a trial of Tegretol 200 mg upto 2 tablets twice a day andadvised to continue with Lyrica 300 mg twice a day. Had some improvement of the facial pain with this regimen. 4Seeing [place] neurology and asleep. On 09/11/2018 started on [...]
--- OUTSIDE RECORDS SUMMARY | 2023-11-02 08:38 | XMS_ITS | Continuity of Care Document ---
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 Start Date: 03/03/21 Status: Ordered aspirin 81 mg oral delayed release tablet 81 mg, 1, tablet, By Mouth, Daily, # 90 tablet, Refills 0, Tot. Refills 0, Maintenance, 01/01/21 11:26:00 EDT, Route to Pharmacy Electronically, [facility]/pharmacy #[id number], Partial fill upon patient [...] Need length 99 months Please send to [facility], 01/21/21 13:20:00 EDT, Supply Start Date: 01/21/21 Status: Ordered carbidopa-levodopa 25 mg-100 mg oral tablet 1 tablet, By Mouth, 3 times a day, Rx'd by Neurology at [facility]/ Dr. Murphy, # 270 tablet, 0 Refills, Maintenance, 04/15/21 23:30:00 EDT, Tablet, Partial fill upon patient request if the prescription is for a schedule II opioid drug. Start Date: 04/15/21 Status: Ordered chlorthalidone 25 mg oral tablet 1, tablet, By Mouth, Daily, # 30 tablet, Refills 5, Route to Pharmacy Electronically, [facility] STORE [id number], 184, cm, 03/30/21 16:08:00 EDT, Height, 123.27, kg, 06/25/19 13:22:00 EST, Dry Weight Start Date: 04/07/21 Status: Ordered Claritin 10 mg oral tablet 10 mg, 1, tablet, By Mouth, Daily, more sea necesario para alergia, # 30 tablet, Refills 5, Tot. Refills 5, Maintenance, 04/13/21 10:04:00 EDT, Route to Pharmacy Electronically, [facility]/pharmacy #[id number], 184, cm, 04/13/21 9:26:00 EDT, Height, 123.27, kg, 01... Start Date: 04/13/21 Status: Ordered clonazePAM 2 mg oral tablet 1 tablet = 2 mg, By Mouth, Daily, # 20 tablet, 0 Refills, Maintenance, 05/09/21 13:42:00 EST, [facility]/pharmacy #[id number], Partial fill upon patient [...] Refills, Maintenance, 03/03/21 17:36:00 EDT, Cream, [facility]/pharmacy #[id number], Partial fill upon patient request if the prescription is for a schedule II opioid drug., 1 application Topically 3 ti... Start Date: 03/03/21 Status: Ordered cyanocobalamin 1000 mcg oral tablet 1,000 mcg, 1, tablet, By Mouth, Daily, # 90 tablet, Refills 11, Tot. Refills 11, Maintenance, 08/02/23 13:12:00 EST, Route to Pharmacy Electronically, [facility]/pharmacy #[id number], 184, cm, 01/01/21 10:56:00 [...] Maintenance, 01/11/21 15:23:00 EDT, Tablet, [facility]/pharmacy #[id number], Partial fill upon patient request if the prescription is for a schedule II opioid drug., 184, cm,... Start Date: 01/11/21 Status: Ordered escitalopram 5 mg oral tablet 1 tablet = 5 mg, By Mouth, Daily, This is a decrease in dose, # 14 tablet, 0 Refills, Maintenance, 04/05/21 15:54:00 EDT, Tablet, [facility]/pharmacy #[id number], Partial fill upon patient request if the prescription is for a schedule II opioid drug., 184, cm, 10... Start Date: 04/05/21 Stop Date: 04/19/21 Status: Ordered fluticasone 50 mcg/inh nasal spray See Instructions, USE 1 SPRAY IN EACH NOSTRIL EVERY MORNING, # 16 mL, 3 Refills, 01/29/21 9:11:00 EDT, [facility]/pharmacy #[id number], 30, USE 1 SPRAY [...] Maintenance, 02/10/21 13:09:00 EDT, Ointment, [facility]/pharmacy #[id number], Partial fill upon patient request if the prescription is for a schedule II opioid drug., 1 application Top... Start Date: 02/10/21 Status: Ordered magnesium oxide 400 mg oral tablet 1 tablet = 400 mg, By Mouth, Daily, [facility], 0 Refills, Maintenance, 04/15/21 [...] Maintenance, 03/03/21 17:29:00 EDT, Tablet, [facility]/pharmacy #[id number], Partial fill upon p... Start Date: 03/03/21 Status: Ordered omega-3 polyunsaturated fatty acids ethyl esters 1000 mg oral capsule 1 capsule = 1,000 mg, By Mouth, 2 times a day, # 60 capsule, 11 Refills, Maintenance, 01/01/21 11:25:00 EDT, Capsule, [facility]/pharmacy #[id number], 1 capsule By Mouth [...] to [facility], 01/21/21 13:20:00 EDT, Supply Start Date: 01/21/21 Status: Ordered sulindac 150 mg oral tablet See Instructions, TAKE 1 TABLET BY MOUTH TWICE A DAY NEEDED FOR PAIN, # 28 tablet, 0 Refills, Maintenance, [id number], 184, cm, 02/01/21 10:51:00 EDT, Height, 123.27, [...] provided increased discomfort related to nerves. 3Seeing [place] neurology and sleep. Given a trial of Tegretol 200 mg upto 2 tablets twice a day andadvised to continue with Lyrica 300 mg twice a day. Had some improvement of the facial pain with this regimen. 4Seeing [place] neurology and asleep. On 09/11/2018 started on [...]
--- OUTSIDE RECORDS SUMMARY | 2023-11-02 08:38 | XMS_ITS | Continuity of Care Document ---
Author Organization [facility] Address [address] [place] [address]- Care Team Providers Care Hasher Operator Name Role Phone Contractor Krystal FERNANDEZ Primary Care Physician [place] [facility] [place]10[place] - 03/17/[address] [address] Attending Physician: Shelly Tamez MD [...] 1 Refills, Maintenance, 03/17/21 10:19:00 EDT, Tablet, [facility]/pharmacy #[id number], [...] 3 Refills, Maintenance, 03/03/21 17:24:00 EDT, Tablet, [facility]/pharmacy #[id number], Partial fill upo... Start Date: 03/03/21 Status: Ordered aspirin 81 mg oral delayed release tablet 81 mg, 1, tablet, By Mouth, Daily, # 90 tablet, Refills 0, Tot. Refills 0, Maintenance, 01/01/21 11:26:00 EDT, Route to Pharmacy Electronically, [facility]/pharmacy #[id number], Partial fill upon patient request if the prescription is for a schedule II opioid drug... Start Date: 01/01/21 Status: Ordered aspirin 81 mg oral tablet 1 tablet = 81 mg, By Mouth, Daily, # 90 tablet, 3 Refills, Maintenance, 01/15/20 9:51:00 EDT, Tablet, [facility]/pharmacy #[id number], 184, cm, 01/15/20 9:11:00 [...] Need length 99 months Please send to [facility], 01/21/21 13:20:00 EDT, Supply Start Date: 01/21/21 Status: Ordered chlorthalidone 25 mg oral tablet 25 mg, 1, tablet, By Mouth, Daily, # 30 tablet, Refills 0, Tot. Refills 0, Maintenance, 03/03/21 17:24:00 EDT, Route to Pharmacy Electronically, [facility]/pharmacy #[id number], Partial fill upon patient request if the prescription is for a schedule II opioid drug... Start Date: 03/03/21 Status: Ordered Claritin 10 mg oral tablet 10 mg, 1, tablet, By Mouth, Daily, # 30 tablet, Refills 3, Tot. Refills 3, Maintenance, 01/29/21 9:13:00 EDT, Route to Pharmacy Electronically, [facility]/pharmacy #[id number], 184, cm, 01/29/21 9:06:00 [...] 0 Refills, Maintenance, 03/03/21 17:36:00 EDT, Cream, [facility]/pharmacy #[id number], Partial [...] [id number] 184, cm, 02/28/20 15:58:00 EDT, Height, 123.27,... Start Date: 08/17/20 Stop Date: 08/02/23 Status: Ordered cyanocobalamin 1000 mcg oral tablet 1,000 mcg, 1, tablet, By Mouth, Daily, # 90 tablet, Refills 11, Tot. Refills 11, Maintenance, 08/02/23 13:12:00 EST, Route to Pharmacy Electronically, [facility]/pharmacy #[id number], 184, cm, 01/01/21 10:56:00 [...] 5 Refills, Maintenance, 01/11/21 15:23:00 EDT, Tablet, [facility]/pharmacy #[id number], [...] 2 Refills, Maintenance, 02/10/21 13:09:00 EDT, Ointment, [facility]/pharmacy #[id number], Partial fill [...] 3 Refills, Maintenance, 03/03/21 17:29:00 EDT, Tablet, [facility]/pharmacy #[id number], Partial fill upon p... Start Date: 03/03/21 Status: Ordered omega-3 polyunsaturated fatty acids ethyl esters 1000 mg oral capsule 1 capsule = 1,000 mg, By Mouth, 2 times a day, # 60 capsule, 11 Refills, Maintenance, 01/01/21 11:25:00 EDT, Capsule, [facility]/pharmacy #[id number], 1 capsule By Mouth 2 times a day,x30 days, 184, cm, 01/01/21 10:56:00 EDT, Height, 123.27, kg, 06/25/19 13:22:00... Start Date: 01/01/21 Stop Date: 12/27/21 Status: Ordered omeprazole 20 mg oral enteric coated capsule 1 capsule = 20 mg, By Mouth, Daily, # 30 capsule, 2 Refills, Maintenance, 02/24/21 9:28:00 EDT, EC Capsule, [facility]/pharmacy #[id number], 184, cm, 02/03/21 10:57:00 [...] PAIN, # 28 tablet, 0 Refills, Maintenance, [facility] STORE 92912, 184, cm, 02/01/21 10:51:00 EDT, Height, 123.27, [...] 5 Refills, Maintenance, 03/11/21 9:40:00 EDT, Tablet, [facility]/pharmacy #[id number], Partial fill upon patient request if the [...] provided increased discomfort related to nerves. 3Seeing [place] neurology and sleep. Given a trial of Tegretol 200 mg upto 2 tablets twice a day andadvised to continue with Lyrica 300 mg twice a day. Had some improvement of the facial pain with this regimen. 4Seeing [place] neurology and asleep. On 09/11/2018 started on [...]
--- OUTSIDE RECORDS SUMMARY | 2023-11-02 08:38 | XMS_ITS | Continuity of Care Document ---
Author Organization [facility] Address [address] [place] [address]- Care Team Providers Care Tornado Chaser Name Role Phone Eyad PRATHER, Dayo Primary Care Physician [place] [facility] [place] Date(s): 08/17/23 - 09/16/23 [facility] [address] [place] [id number] Allergies, Adverse Reactions, Alerts Substance Reaction Severity Status penicillin Unknown Active gabapentin Active Ventolin HFA Active SEROquel Active hydrOXYzine hydrochloride Ac [...] influenza virus vaccine, inactivated 04/16/15 Give n [id number] 12y+ bivalent booster vax 02/21/23 Given SARS-CoV-2 (COVID-19) mRNA BNT-162b2 vac 1 06/01/21 Given SARS-CoV-2 (COVID-19) mRNA BNT-162b2 vac 11/07/20 Recorded SARS-CoV-2 (COVID-19) mRNA BNT-162b2 vac 10/17/20 Recorded zoster vaccine, inactivated 06/18/19 Recorded zoster vaccine, inactivated 06/17/19 Recorded zoster vaccine, inactivated 11/25/17 Recorded Influenza Vaccine (oldterm) 02/17/17 Recorded pneumococcal 23-valent vaccine 02/16/16 Given tetanus/diphtheria/pertussis, acel(Tdap) 11/25/14 Given 1Result Comment: DILUENT LOT#: [id number] EXP: 11/2022 MFG: FRESENSIUS Medications Albuterol (Eqv-ProAir [...] cm, 04/04/23 8:24:00 EDT, Height, 123.2, kg, 08/22/22 12:47:00 EDT, Dry Weight Start Date: 04/04/23 [...] Need length 99 months Please send to [email or web address], 01/21/21 13:20:00 EDT, Supply Start Date: 01/21/21 [...] 10/06/23 14:26:00 EDT, 08/07/23 14:26:00 EST, Cream, [facility]/pharmacy #[id number], Partial fill upon patient [...] Gm, 5 Refills, Maintenance, 07/04/23 8:59:00 EST, [facility]/pharmacy #[id number], 30, APPLY TOPICALLY TO [...] Refills, Maintenance, 08/07/23 14:34:00 EST, REC Powder, [facility]/pharmacy #[id number], Partial fill [...] 40 gum, 0 Refills, [facility] ST[facility] 214[facility], 184, cm, 12/27/21 11:50:00 EDT, Height Start [...] capsule, 3 Refills, Maintenance, 04/04/23 8:46:00 EDT, [facility] [...] day, Rx'd by neurology at [facility], # 270 tablet, 0 Refills, Maintenance, [...] DX: M51. 26 please send to [facility], 08/08/22 15:41:00 EST, Supply Start Date: [...] 14:39:00 EST, Aerosol, Route to Pharmacy Electronically, [id number], [facility]/pharmacy #[id number], 183, cm, 08/07/23 14:26:00 EST, [...] 08/28/23 13:12:00 EDT, Route to Pharmacy Electronically, [facility] STORE [id number], 183, cm, 08/22/23 13:24:00 EST, Height, 123.2, kg, 02/07/22 12:47:00 EDT, Dry Weight Start Date: 08/28/23 Status: Ordered Xopenex HFA 45 mcg/inh inhalation aerosol 2 puffs, Inhalation, Every 4 hours, PRN Wheezing/Shortness of Breath, replaces Ventolin due to reaction, # 1 each, 1 Refills, Maintenance, 02/15/23 11:23:00 EDT, [facility]erosol, [facility], Partial fill upon patient request if [...] provided increased discomfort related to nerves. 3Seeing [place] neurology and sleep. Given a trial of [...] Care Team Personnel Name: Olimpia Parker Position: [facility] Office Staff Member Role: Lifetime Consulting Physician Name: Dayo Castano MD Position: [facility] Physician - Primary Care Member Role: PCP Address: Address: [address] [place], [place] [id number]- [place] Care Team Related Persons Name: JARROD BRADFORD Address: home [address] [place] [address] Name: YARA BRADFORDSY Address: home [address] [place] [address] Name: GOLDIE LERMA Address: [place] [address] Name: OLIMPIA LERMA Address: [place] [address] Name: KADE LERMA Address: home [address] [place] [address] Name: KADE LERMA Address: home [address] [place] [address]
--- OUTSIDE RECORDS SUMMARY | 2023-11-02 08:38 | XMS_ITS | Continuity of Care Document ---
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 [...] Need length 99 months Please send to [facility], 01/21/21 13:20:00 EDT, Supply Start Date: 01/21/21 Status: Ordered chlorthalidone 25 mg oral tablet 1, tablet, By Mouth, Daily, # 30 tablet, Refills 5, Tot. Refills 5, 09/28/21 8:08:00 EDT, Route to Pharmacy Electronically, [facility]/pharmacy #[id number], 184, cm, 09/15/21 9:12:00 EDT, Height Start Date: 09/28/21 Status: Ordered clonazePAM 2 mg oral tablet See Instructions, 1 tablet by mouth only NEEDED for severe panic attack. Dispense: #20 tabs per 20d., # 20 tablet, 0 Refills, Maintenance, 08/18/21 15:21:00 EST, Tablet, [facility]/pharmacy #[id number], Partial [...] 07/17/26 13:12:00 EST, Route to Pharmacy Electronically, [facility]/pharmacy #[id number], 184, cm, 07/26/21 9:11:00 EST, Height Start Date: 07/17/26 Stop Date: 07/01/29 Status: Ordered cyanocobalamin 1000 mcg oral tablet 1,000 mcg, 1, tablet, By Mouth, Daily, for 90 days, # 90 tablet, Refills 11, Tot. Refills 11, Hard Stop 07/17/26 13:12:00 EST, 08/02/23 13:12:00 EST, Route to Pharmacy Electronically, [facility]/pharmacy #[id number], 184, cm, 01/01/21 [...] 0 Refills, Maintenance, 12/09/21 15:41:00 EDT, Gel, [facility]/pharmacy #[id number], Partial fill [...] 5 Refills, Maintenance, 10/07/21 20:16:00 EDT, Tablet, [facility]/pharmacy #[id number], [...] 1, NEEDED FOR ALLERGIES, Route to PharmacyElectronically, [facility]ORE [id number], 184, cm, 10/18/21 13:37:00 EDT, Height Start Date: 10/22/21 Status: Ordered magnesium oxide 400 mg oral tablet 1 tablet = 400 mg, By Mouth, Daily, Rx'd by Neurology at [facility] Alisa Tyler/ Dr. Murphy, 0 Refills, Maintenance, 04/15/21 23:30:00 [...] 11:13:00 EST, 10/28/21 11:13:00 EDT, REC Powder, [facility]/pharmacy #[id number], [...] tablet, 3 Refills, Maintenance, 09/16/2211:15:00 EDT, Tablet, [facility]/pharmacy #[id number], Partial f... Start [...] EDT, Height Start Date: 12/07/21 Status: Ordered predniSONE 20 mg oral tablet 2 tablet = 40 mg, By Mouth, Daily, for 5 days, # 10 tablet, 0 Refills, Acute 01/01/22 12:44:00 EDT,12/27/21 12:44:00 EDT, [id number], Partial fill upon patient request if the prescription isfor a schedule II opioid drug., 184, cm, 12/27/21 1... Start Date: 12/27/21 Stop Date: 01/01/22 Status: Ordered pregabalin 300 mg oral capsule [...] 12:43:00 EDT, Aerosol, Route to Pharmacy Electronically, [id number], [facility]/pharmacy #[id number], 184, cm, 12/27/21 [...] provided increased discomfort related to nerves. 3Seeing [place] neurology and sleep. Given a trial of Tegretol 200 mg upto 2 tablets twice a day andadvised to continue with Lyrica 300 mg twice a day. Had some improvement of the facial pain with this regimen. 4Seeing [place] neurology and asleep. On 09/11/2018 started on [...]
--- OUTSIDE RECORDS SUMMARY | 2023-11-02 08:38 | XMS_ITS | Continuity of Care Document ---
Author Organization [facility] Address [address] [place] [address]- Care Team Providers Care Road Builder Name Role Phone Terence PRATHER, Azra Primary Care Physician [place] [facility] [place] 03/18/20 [facility] [address] [place] [address]- [facility] Allergies, Adverse [...] 01/15/20 9:51:00 EDT, Route to Pharmacy Electronically, [facility]/pharmacy #[id number], 184, cm, 01/15/20 9:11:00 EDT, Height, 123.27, [...] mL, 0 Refills, Maintenance, [facility], 30, USE 1 SPRAY IN EACH NOSTRIL [...] provided increased discomfort related to nerves. 3Seeing [place] neurology and sleep. Given a trial of Tegretol 200 mg upto 2 tablets twice a day andadvised to continue with Lyrica 300 mg twice a day. Had some improvement of the facial pain with this regimen. 4Seeing [place] neurology and asleep. On 09/11/2018 started on [...]
--- OUTSIDE RECORDS SUMMARY | 2023-11-02 08:38 | XMS_ITS | Continuity of Care Document ---
Author Organization [facility] Address [address] [place] [address]- Care Team Providers Care Police Records Clerk Name Role Phone Terence PRATHER, Azra Primary Care Physician [phone] Encounter [facility] [place] Date(s): 03/03/20 - 04/02/[address] [address]- [facility] Allergies, Adverse Reactions, Alerts [...] 01/15/20 9:51:00 EDT, Route to Pharmacy Electronically, [facility]/pharmacy #[id number], 184, cm, 01/15/20 9:11:00 EDT, Height, 123.27, kg, 06/25/19 13:22:00 EST, Dry Weight Start Date: 01/15/20 Stop Date: 03/15/20 Status: Ordered aspirin 81 mg oral tablet 1 tablet = 81 mg, By Mouth, Daily, # 90 tablet, 3 Refills, Maintenance, 01/15/20 9:51:00 EDT, Tablet, [facility]/pharmacy #[id number], 184, cm, 01/15/20 9:11:00 [...] 02/07/20 9:49:00 EDT, Route to Pharmacy Electronically, [facility]/pharmacy #[id number], 184, cm, 01/29/20 14:16:00 [...] 08/17/20 13:12:00 EST, Route to Pharmacy Electronically, [facility]/pharmacy #[id number], 184, cm, 02/28/20 15:58:00 [...] 3 Refills, Maintenance, 01/15/20 9:51:00 EDT, Tablet, [facility]/pharmacy #[id number], 184, cm, 01/15/20 9:11:00 EDT, Height, 123.27, kg, 06/25/19 13:22:00 EST, Dry Weight Start Date: 01/15/20 Stop Date: 03/15/20 Status: Ordered fluticasone 50 mcg/inh nasal spray See Instructions, USE 1 SPRAY IN EACH NOSTRIL EVERY MORNING, # 16 mL, 0 Refills, Maintenance, [facility], 30, USE 1 SPRAY IN EACH NOSTRIL [...] provided increased discomfort related to nerves. 3Seeing [place] neurology and sleep. Given a trial [...]
--- OUTSIDE RECORDS SUMMARY | 2023-11-02 08:38 | XMS_ITS | Continuity of Care Document ---
Author Organization 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 Name Role Phone Ivone Oneil MD Primary Care Physician Encounter [facility] [place] Date(s): 01/28/22 - 03/03/[address] [address] Attending Physician: Alona Rico MD Admitting Physician: Alona Rico MD Referring Physician: Alona Rico MD Allergies, Adverse Reactions, [...] acel(Tdap) 11/25/14 Given 1Result Comment: DILUENT LOT#: [id number] EXP: 11/2022 MFG: FRESENSIUS Medications amitriptyline 100 [...] Need length 99 months Please send to [facility], 01/21/21 13:20:00 EDT, Supply [...] 0 Refills, Maintenance, 08/18/21 15:21:00 EST, Tablet, [facility]/pharmacy #[id number], Partial fill upon patient request if the [...] 07/17/26 13:12:00 EST, Route to Pharmacy Electronically, [facility]/pharmacy #[id number], 184, cm, 07/26/21 9:11:00 EST, Height Start Date: 07/17/26 Stop Date: 07/01/29 Status: Ordered cyanocobalamin 1000 mcg oral tablet 1,000 mcg, 1, tablet, By Mouth, Daily, for 90 days, # 90 tablet, Refills 11, Tot. Refills 11, Hard Stop 07/17/26 13:12:00 EST, 08/02/23 13:12:00 EST, Route to Pharmacy Electronically, [facility]/pharmacy #[id number], 184, cm, 01/01/21 10:56:00 EDT, [...] 5 Refills, Maintenance, 10/07/21 20:16:00 EDT, Tablet, [facility]/pharmacy #[id number], Partial fill [...] 1, NEEDED FOR ALLERGIES, Route to PharmacyElectronically, [facility] STORE [facility], 184, cm, 10/18/21 13:37:00 EDT, Height Start Date: 10/22/21 Status: Ordered magnesium oxide 400 mg oral tablet 1 tablet = 400 mg, By Mouth, Daily, Rx'd by Neurology at [facility] Alisa [place]/ Dr. Murphy, 0 Refills, Maintenance, 04/15/21 23:30:00 [...] 11:13:00 EST, 10/28/21 11:13:00 EDT, REC Powder, [facility]/pharmacy #[id number], Partial [...] tablet, 3 Refills, Maintenance, 09/16/2211:15:00 EDT, Tablet, [facility]/pharmacy #[id number], Partial f... Start Date: 09/15/21 [...] SMOKING CESSATION, # 40 gum, 0 Refills, [facility] STORE 96645, 184, cm, 12/27/21 11:50:00 EDT, Height Start Date: 02/01/22 Status: Ordered omega-3 polyunsaturated fatty acids ethyl esters 1000 mg oral capsule 1 capsule, By Mouth, 2 times a day, # 180 capsule, 3 Refills, [facility], 90, TAKE 1 CAPSULE BY MOUTH TWICE A DAY, 183, cm, 02/08/22 6:42:00 EDT, Height, 123.2, kg, 02/07/22 12:47:00 EDT, Dry Weight Start Date: 02/09/22 Status: Ordered omeprazole 20 mg oral enteric coated capsule 1 capsule, By Mouth, Daily, # 90 capsule, 0 Refills, Maintenance, 02/14/22 21:23:00 EDT, [facility], 183, cm, 02/08/22 6:42:00 EDT, Height, 123.2, [...] 0 Refills, Maintenance, 06/29/21 15:41:00 EST, Capsule, [facility]/pharmacy #[id number], Partial fill upon patient request if the prescription is for a schedule II o... Start Date: 06/29/21 Stop Date: 07/29/21 Status: Ordered primidone 50 mg oral tablet 100 mg, 2, tablet, By Mouth, 3 times a day, Rx'd by Neurology at [facility] Alisa Lazaro/ Dr. Murphy, Refills 0, Maintenance, [...] 12:43:00 EDT, Aerosol, Route to Pharmacy Electronically, [id number], [facility]/pharmacy #[id number], 184, cm, 12/27/21 11:50:00 EDT, [...] the facial pain with this regimen. 4Seeing [place] neurology and asleep. On 09/11/2018 started on [...] Team Personnel Name: Ivone Oneil MD Address: [address] [place] [address]-
--- OUTSIDE RECORDS SUMMARY | 2023-11-02 08:38 | XMS_ITS | Continuity of Care Document ---
Author Organization [facility] Address [address] [place] [address]- Care Team Providers Care Transfer Station Attendant Name Role Phone Elian Campos MD Primary Care Physician Encounter [facility] Date(s): 07/25/19 - 07/25/[address] [address]- [facility] Attending Physician: Elian Campos MD Allergies, Adverse Reactions, [...] provided increased discomfort related to nerves. 3Seeing [place] neurology and sleep. Given a trial of Tegretol 200 mg upto 2 tablets twice a day andadvised to continue with Lyrica 300 mg twice a day. Had some improvement of the facial pain with this regimen. 4Seeing [place] neurology and asleep. On 09/11/2018 started on [...]
--- OUTSIDE RECORDS SUMMARY | 2023-11-02 08:38 | XMS_ITS | Continuity of Care Document ---
Author Organization [facility] Address [address] [place] [address]- Care Team Providers Care Site Coordinator Name Role Phone Contractor Krystal FERNANDEZ Primary Care Physician Encounter [facility] Date(s): 04/26/21 - 05/26/[address] [address]- Allergies, Adverse Reactions, Alerts Substance Reaction Severity [...] 3 Refills, Maintenance, 04/13/21 10:02:00 EDT, Tablet, [facility]/pharmacy #[id number], Partial [...] 3 Refills, Maintenance, 03/03/21 17:24:00 EDT, Tablet, [facility]/pharmacy #[id number], Partial fill upo... Start Date: [...] tablet, Refills 5, Route to Pharmacy Electronically, [facility] STORE [id number], 184, cm, 03/30/21 16:08:00 EDT, Height, 123.27, kg, 06/25/19 13:22:00 EST, Dry Weight Start Date: 04/07/21 Status: Ordered Claritin 10 mg oral tablet 10 mg, 1, tablet, By Mouth, Daily, more sea necesario para alergia, # 30 tablet, Refills 5, Tot. Refills 5, Maintenance, 04/13/21 10:04:00 EDT, Route to Pharmacy Electronically, [facility]/pharmacy #[id number], 184, cm, 04/13/21 9:26:00 EDT, Height, 123.27, kg, 01... Start Date: 04/13/21 Status: Ordered clonazePAM 2 mg oral tablet 1 tablet = 2 mg, By Mouth, Daily, # 20 tablet, 0 Refills, Maintenance, 05/09/21 13:42:00 EST, [facility]/pharmacy #[id number], Partial fill upon [...] 0 Refills, Maintenance, 03/03/21 17:36:00 EDT, Cream, [facility]/pharmacy #[id number], Partial fill upon [...] 0 Refills, Maintenance, 04/05/21 15:54:00 EDT, Tablet, [facility]/pharmacy #[id number], Partial [...] 2 Refills, Maintenance, 02/10/21 13:09:00 EDT, Ointment, [facility]/pharmacy #[id number], Partial fill upon patient request if the prescription is for a schedule II opioid drug., 1 application Top... Start Date: 02/10/21 Status: Ordered magnesium oxide 400 mg oral tablet 1 tablet = 400 mg, By Mouth, Daily, [facility], 0 Refills, Maintenance, 04/15/21 [...] 3 Refills, Maintenance, 03/03/21 17:29:00 EDT, Tablet, [facility]/pharmacy #[id number], Partial fill upon p... Start Date: 03/03/21 Status: Ordered nicotine 21 mg/24 hr transdermal film, extended release 1 patch, Topically, Daily, for 6 week(s), Rx in [place], # 42 patch, 1 Refills, Acute 08/16/21 16:13:00 EST, 05/24/21 16:13:00 EST, Patch, [facility]/pharmacy #[id number], Partial fill upon [...] 2 Refills, Maintenance, 05/04/21 11:15:00 EST, ECCapsule, [facility]/pharmacy #[id number], 184, cm, 04/22/21 15:18:00 EDT, [...] 28 tablet, 0 Refills, Maintenance, [facility], 184, cm, 02/01/21 10:51:00 EDT, Height, 123.27, [...] provided increased discomfort related to nerves. 3Seeing [place] neurology and sleep. Given a trial of Tegretol 200 mg upto 2 tablets twice a day andadvised to continue with Lyrica 300 mg twice a day. Had some improvement of the facial pain with this regimen. 4Seeing [place] neurology and asleep. On 09/11/2018 started [...]
--- OUTSIDE RECORDS SUMMARY | 2023-11-02 08:38 | XMS_ITS | Continuity of Care Document ---
Author Organization [facility] Address [address] [place] [address]- Care Team Providers Care Field Operations Supervisor Name Role Phone Contractor Krystal FERNANDEZ Primary Care Physician [phone] Encounter [facility] Date(s): 04/09/21 - 05/09/[address] [address] Allergies, Adverse Reactions, Alerts Substance [...] 3 Refills, Maintenance, 04/13/21 10:02:00 EDT, Tablet, [facility]/pharmacy #[id number], Partial fill [...] 3 Refills, Maintenance, 03/03/21 17:24:00 EDT, Tablet, [facility]/pharmacy #[id number], Partial fill upo... Start Date: 03/03/21 Status: Ordered aspirin 81 mg oral delayed release tablet 81 mg, 1, tablet, By Mouth, Daily, # 90 tablet, Refills 0, Tot. Refills 0, Maintenance, 01/01/21 11:26:00 EDT, Route to Pharmacy Electronically, [facility]/pharmacy #[id number], Partial fill upon patient [...] Need length 99 months Please send to [facility], 01/21/21 13:20:00 EDT, Supply Start Date: 01/21/21 Status: Ordered carbidopa-levodopa 25 mg-100 mg oral tablet 1 tablet, By Mouth, 3 times a day, Rx'd by Neurology at [facility] Alisa [place]/ Dr. Murphy, # 270 tablet, 0 Refills, Maintenance, 04/15/21 23:30:00 EDT, Tablet, Partial fill upon patient request if the prescription is for a schedule II opioid drug. Start Date: 04/15/21 Status: Ordered chlorthalidone 25 mg oral tablet 1, tablet, By Mouth, Daily, # 30 tablet, Refills 5, Route to Pharmacy Electronically, [facility]16, 184, cm, 03/30/21 16:08:00 EDT, Height, 123.27, kg, 06/25/19 13:22:00 EST, Dry Weight Start Date: 04/07/21 Status: Ordered Claritin 10 mg oral tablet 10 mg, 1, tablet, By Mouth, Daily, more sea necesario para alergia, # 30 tablet, Refills 5, Tot. Refills 5, Maintenance, 04/13/21 10:04:00 EDT, Route to Pharmacy Electronically, [facility]/pharmacy #[id number], 184, cm, 04/13/21 9:26:00 EDT, [...] 0 Refills, Maintenance, 03/03/21 17:36:00 EDT, Cream, [facility]/pharmacy #[id number], Partial fill upon patient request if the prescription is for a schedule II opioid drug., 1 application Topically 3 ti... Start Date: 03/03/21 Status: Ordered cyanocobalamin 1000 mcg oral tablet 1,000 mcg, 1, tablet, By Mouth, Daily, # 90 tablet, Refills 11, Tot. Refills 11, Maintenance, 08/02/23 13:12:00 EST, Route to Pharmacy Electronically, [facility]/pharmacy #[id number], 184, cm, 01/01/21 10:56:00 EDT, [...] 5 Refills, Maintenance, 01/11/21 15:23:00 EDT, Tablet, [facility]/pharmacy #[id number], Partial fill upon patient request if the prescription is for a schedule II opioid drug., 184, cm,... Start Date: 01/11/21 Status: Ordered escitalopram 5 mg oral tablet 1 tablet = 5 mg, By Mouth, Daily, This is a decrease in dose, # 14 tablet, 0 Refills, Maintenance, 04/05/21 15:54:00 EDT, Tablet, [facility]/pharmacy #[id number], Partial fill upon patient request if the prescription is for a schedule II opioid drug., 184, cm, ... Start Date: 04/05/21 Stop Date: 04/19/21 Status: Ordered fluticasone 50 mcg/inh nasal spray See Instructions, USE 1 SPRAY IN EACH NOSTRIL EVERY MORNING, # 16 mL, 3 Refills, 01/29/21 9:11:00 EDT, [facility]/pharmacy #[id number], 30, USE 1 SPRAY IN [...] 2 Refills, Maintenance, 02/10/21 13:09:00 EDT, Ointment, [facility]/pharmacy #[id number], Partial fill upon patient request if the prescription is for a schedule II opioid drug., 1 application Top... Start Date: 02/10/21 Status: Ordered magnesium oxide 400 mg oral tablet 1 tablet = 400 mg, By Mouth, Daily, Rx'd by Neurology at [facility] Alisa [place]/ Dr. Murphy, 0 Refills, Maintenance, 04/15/21 23:30:00 [...] 3 Refills, Maintenance, 03/03/21 17:29:00 EDT, Tablet, [facility]/pharmacy #[id number], Partial fill upon p... Start Date: 03/03/21 Status: Ordered omega-3 polyunsaturated fatty acids ethyl esters 1000 mg oral capsule 1 capsule = 1,000 mg, By Mouth, 2 times a day, # 60 capsule, 11 Refills, Maintenance, 01/01/21 11:25:00 EDT, Capsule, [facility]/pharmacy #[id number], 1 capsule By Mouth [...] 28 tablet, 0 Refills, Maintenance, [facility], 184, cm, 02/01/21 10:51:00 EDT, Height, 123.27, [...] provided increased discomfort related to nerves. 3Seeing [place] neurology and sleep. Given a trial of Tegretol 200 mg upto 2 tablets twice a day andadvised to continue with Lyrica 300 mg twice a day. Had some improvement of the facial pain with this regimen. 4Seeing [place] neurology and asleep. On 09/11/2018 started on [...]
--- OUTSIDE RECORDS SUMMARY | 2023-11-02 08:38 | XMS_ITS | Continuity of Care Document ---
Author Organization [facility] Address [address] [place] [address]- Care Team Providers Care Tubing Machine Tender Name Role Phone Not on Staff, PCP Primary Care Physician Unavail able En[place] [facility] [place]03[place]19 - 01/02/20 [facility] [address] [place] [address]- [facility] Attending Physician: Cristian Padilla Admitting Physician: AdmtrCristian [...] 19:31:42, Compound Start Date: 07/11/16 Status: Ordered Physical Therapy for Left Hip [...] provided increased discomfort related to nerves. 3Seeing [place] neurology and sleep. Given a trial of [...]
--- OUTSIDE RECORDS SUMMARY | 2023-11-02 08:38 | XMS_ITS | Continuity of Care Document ---
Author Organization [facility] Address [address] [place] [address]- Care Team Providers Care Contact Lens Technician Name Role Phone Contractor Krystal FERNANDEZ Primary Care Physician Encounter [facility] Date(s): 08/16/21 - 09/15/[address] [address]- Allergies, Adverse Reactions, Alerts Substance Reaction Severity [...] acel(Tdap) 11/25/14 Given 1Result Comment: DILUENT LOT#: [id number] EXP: 11/2022 MFG: FRESENSIUS Medications amitriptyline 100 [...] Need length 99 months Please send to [facility], 01/21/21 13:20:00 EDT, Supply Start Date: 01/21/21 Status: Ordered carbidopa-levodopa 25 mg-100 mg oral tablet 1 tablet, By Mouth, 3 times a day, [facility], # 270 tablet, 0 Refills, Maintenance, 04/15/21 23:30:00 EDT, Tablet, Partial fill upon patient request if the prescription is for a schedule II opioid drug. Start Date: 04/15/21 Status: Ordered chlorthalidone 25 mg oral tablet 1, tablet, By Mouth, Daily, # 30 tablet, Refills 5, Route to Pharmacy Electronically, [id number], 184, cm, 03/30/21 16:08:00 EDT, Height, 123.27, kg, 06/25/19 13:22:00 EST, Dry Weight Start Date: 04/07/21 Status: Ordered Claritin 10 mg oral tablet 10 mg, 1, tablet, By Mouth, Daily, more sea necesario para alergia, # 30 tablet, Refills 5, Tot. Refills 5, Maintenance, 04/13/21 10:04:00 EDT, Route to Pharmacy Electronically, [facility]/pharmacy #[id number], 184, cm, 04/13/21 9:26:00 EDT, Height, 123.27, kg, 01... Start Date: 04/13/21 Status: Ordered clonazePAM 2 mg oral tablet See Instructions, 1 tablet by mouth only NEEDED for severe panic attack. Dispense: #20 tabs per 20d., # 20 tablet, 0 Refills, Maintenance, 08/18/21 15:21:00 EST, Tablet, [facility]/pharmacy #[id number], Partial fill upon patient request if [...] 0 Refills, Maintenance, 03/03/21 17:36:00 EDT, Cream, [facility]/pharmacy #[id number], Partial fill upon patient request if the prescription is for a schedule II opioid drug., 1 application Topically 3 ti... Start Date: 03/03/21 Status: Ordered cyanocobalamin 1000 mcg oral tablet 1,000 mcg, 1, tablet, By Mouth, Daily, # 90 tablet, Refills 11, Tot. Refills 11, Maintenance, 07/17/26 13:12:00 EST, Route to Pharmacy Electronically, [facility]/pharmacy #[id number], 184, cm, 07/26/21 9:11:00 EST, Height Start Date: 07/17/26 Stop Date: 07/01/29 Status: Ordered cyanocobalamin 1000 mcg oral tablet 1,000 mcg, 1, tablet, By Mouth, Daily, for 90 days, # 90 tablet, Refills 11, Tot. Refills 11, Hard Stop 07/17/26 13:12:00 EST, 08/02/23 13:12:00 EST, Route to Pharmacy Electronically, [facility]/pharmacy #[id number], 184, cm, 01/01/21 10:56:00 EDT, Height, [...] 5 Refills, Maintenance, 01/11/21 15:23:00 EDT, Tablet, [facility]/pharmacy #[id number], Partial fill upon patient request if the prescription is for a schedule II opioid drug., 184, cm,... Start Date: 01/11/21 Status: Ordered escitalopram 20 mg oral tablet 1 tablet = 20 mg, By Mouth, Daily, # 30 tablet, 3 Refills, Maintenance, 07/13/21 12:26:00 EST, Tablet, [facility]/pharmacy #[id number], d/c citalopram 10 mg, 184, cm, 06/14/21 11:01:00 EST, Height Start Date: 07/13/21 Status: Ordered fluticasone 50 mcg/inh nasal spray See Instructions, USE 1 SPRAY IN EACH NOSTRIL EVERY MORNING, # 16 mL, 3 Refills, 01/29/21 9:11:00 EDT, [facility]/pharmacy #[id number], 30, USE 1 SPRAY IN EACH [...] 2 Refills, Maintenance, 02/10/21 13:09:00 EDT, Ointment, [facility]/pharmacy #[id number], Partial fill upon patient request if the prescription is for a schedule II opioid drug., 1 application Top... Start Date: 02/10/21 Status: Ordered magnesium oxide 400 mg oral tablet 1 tablet = 400 mg, By Mouth, Daily, Rx'd by Neurology at [facility]/ Dr. Murphy, 0 [...] tablet, 3 Refills, Maintenance, 09/16/2211:15:00 EDT, Tablet, [facility]/pharmacy #[id number], Partial f... Start Date: 09/15/21 Status: Ordered omega-3 polyunsaturated fatty acids ethyl esters 1000 mg oral capsule 1 capsule = 1,000 mg, By Mouth, 2 times a day, # 60 capsule, 11 Refills, Maintenance, 12/27/21 11:25:00 EDT, Capsule, [facility]/pharmacy #[id number], 1 capsule By Mouth 2 times a day,x30 days, 184, cm, 07/26/21 9:11:00 EST, Height Start Date: 12/27/21 Stop Date: 12/22/22 Status: Ordered omega-3 polyunsaturated fatty acids ethyl esters 1000 mg oral capsule 1 capsule = 1,000 mg, By Mouth, 2 times a day, for 30 days, # 60 capsule, 11 Refills, Hard Stop 12/27/21 11:25:00 EDT, 01/01/21 11:25:00 EDT, Capsule, [facility]/pharmacy #[id number], 184, cm, 01/01/21 10:56:00 EDT, Height, 123.27, kg, 06/25/19 13:22:00 EST, Dry W... Start Date: 01/01/21 Stop Date: 12/27/21 Status: Ordered omeprazole 20 mg oral enteric coated capsule 1 capsule, By Mouth, Daily, # 90 capsule, 0 Refills, [facility] 06[facility], 184, cm, 06/14/21 11:01:00 EST, Height, 123.27, [...] 28 tablet, 0 Refills, Maintenance, [id number], 184, cm, 02/01/21 10:51:00 EDT, Height, 123.27, [...] provided increased discomfort related to nerves. 3Seeing [place] neurology and sleep. Given a trial of Tegretol 200 mg upto 2 tablets twice a day andadvised to continue with Lyrica 300 mg twice a day. Had some improvement of the facial pain with this regimen. 4Seeing [place] neurology and asleep. On 09/11/2018 started on [...]
--- OUTSIDE RECORDS SUMMARY | 2023-11-02 08:38 | XMS_ITS | Continuity of Care Document ---
Author Organization [facility] Address [address] [place] [address]- Care Team Providers Care Gear Grinding Machine Operator Name Role Phone Ivone Oneil MD Primary Care Physician [place] [facility] [place] Date(s): 08/03/22 - 09/03/[address] [address]- Attending Physician: Ivone Oneil MD Admitting Physician: [...] acel(Tdap) 11/25/14 Given 1Result Comment: DILUENT LOT#: [id number] EXP: 11/2022 MFG: FRESENSIUS Medications amitriptyline 100 mg oral tablet 1 tablet = 100 mg, By Mouth, Daily at bedtime, # 30 tablet, 3 Refills, Maintenance, 12/27/21 12:09:00 EDT, Tablet, [facility]/pharmacy #[id number], Partial [...] 1 Refills, Maintenance, 05/13/22 14:40:00 EST, Tablet, [facility]/pharmacy #[id number], Partial [...] Need length 99 months Please send to [facility], 01/21/21 13:20:00 EDT, Supply Start Date: 01/21/21 Status: Ordered chlorthalidone 25 mg oral tablet 25 mg, 1, tablet, By Mouth, Daily, # 30 tablet, Refills 2, Tot. Refills 2, Maintenance, 08/23/22 8:42:00 EST, Route to Pharmacy Electronically, [facility] 07/17/26 13:12:00 EST, Route to Pharmacy Electronically, [facility]/pharmacy #[id number], 184, cm, 07/26/21 9:11:00 EST, Height Start Date: 07/17/26 Stop Date: 1/13/30 Status: Ordered cyanocobalamin 1000 mcg oral tablet [...] Refills, Maintenance, 07/28/22 8:54:00 EST, [facility], 30, APPLY TOPICALLY TO AFFECTED ARE TWICE A DAY NEEDED FOR PAIN, 183, cm, 07/07/22 10:54:00 E... Start Date: 07/28/22 Status: Ordered empagliflozin 10 mg oral tablet 1 tablet = 10 mg, By Mouth, Daily in AM, # 30 tablet, 2 Refills, Maintenance, 08/23/22 8:44:00 EST,Tablet, [facility]/pharmacy #[id number], Partial fill upon [...] 2 Refills, Maintenance, 08/23/22 8:44:00 EST, Tablet, [facility]/pharmacy #[id number], Label in tajik, cetrizine not effective, 1 tablet By Mouth Daily in AM, 183, cm, 08/22/22 8:28:00 EST, Height, 123.2, kg,... Start Date: 08/23/22 Status: Ordered loratadine 10 mg oral tablet 1, tablet, By Mouth, Daily, PRN, # 90 tablet, Refills 1, NEEDED FOR ALLERGIES, Route to PharmacyElectronically, [id number], 184, cm, 10/18/21 13:37:00 EDT, Height Start Date: 10/22/21 Status: Ordered magnesium oxide 400 mg oral tablet 1 tablet = 400 mg, By Mouth, Daily, Rx'd by Neurology at [facility]/ Dr. Murphy, 0 Refills, Maintenance, 04/15/21 [...] tablet, 3 Refills, Maintenance, 09/16/2211:15:00 EDT, Tablet, [facility]/pharmacy #[id number], Partial f... Start Date: 09/15/21 Status: Ordered Nicotine 2 mg gum See Instructions, CHEW 1 PIECE OF GUM EVERY 2 HOURS NEEDED FOR SMOKING CESSATION, # 40 gum, 0 Refills, [facility], 184, cm, 12/27/21 11:50:00 EDT, Height Start [...] a day, # 180 capsule, 3 Refills, [facility], 90, TAKE 1 CAPSULE BY MOUTH TWICE A DAY, 183, cm, 02/08/22 6:42:00 EDT, Height, 123.2, kg, 02/07/22 12:47:00 EDT, Dry Weight Start Date: 02/09/22 Status: Ordered omeprazole 20 mg oral enteric coated capsule 1 capsule, By Mouth, Daily, # 90 capsule, 0 Refills, Maintenance, 07/21/22 8:05:00 EST, [facility]/pharmacy #[id number], 183, cm, 07/07/22 10:54:00 EST, Height, [...] 0 Refills, Maintenance, 06/29/21 15:41:00 EST, Capsule, [facility]/pharmacy #[id number], Partial fill upon patient request if the prescription is for a schedule II o... Start Date: 06/29/21 Stop Date: 07/29/21 Status: Ordered primidone 50 mg oral tablet 100 mg, 2, tablet, By Mouth, 3 times a day, Rx'd by Neurology at [facility]/ Dr. Murphy, Refills 0, [...] send to [facility], 08/08/22 15:41:00 EST, Supply Start Date: 08/08/22 Status: Ordered Symbicort 160mcg/4.5mcg Inhaler 2, puffs, Inhalation, 2 times a day, # 6 Gm, Refills 0, Tot. Refills 0, Maintenance, 12/27/21 12:43:00 EDT, Aerosol, Route to Pharmacy Electronically, [id number], [facility]/pharmacy #[id number], 184, cm, 12/27/21 11:50:00 EDT, Height Start Date: 12/27/21 Status: Ordered Tylenol Extra Strength 500 mg oral tablet 2 tablet = 1,000 mg, By Mouth, 3 times a day, PRN as needed for pain, # 100 tablet, 5 Refills, Maintenance, 12/07/21 10:44:00 EDT, Tablet, [facility]/pharmacy #[id number], Partial fill upon patient request if theprescription is for a schedule II opioid drug., 184... Start Date: 12/07/21 Status: Ordered valsartan 320 mg oral tablet 1 tablet, By Mouth, Daily, # 90 tablet, 3 Refills, Maintenance, 03/15/22 14:29:00 EDT, [facility], 183, cm, 02/08/22 6:42:00 EDT, Height, 123.2, [...] provided increased discomfort related to nerves. 3Seeing [place] neurology and sleep. Given a trial of Tegretol 200 mg upto 2 tablets twice a day andadvised to continue with Lyrica 300 mg twice a day. Had some improvement of the facial pain with this regimen. 4Seeing [place] neurology and asleep. On 09/11/2018 started on [...] Consulting Physician Name: Ivone Oneil MD Position: [facility] Primary Care Physician Member Role: PCP Address: Address: [address] [place] [address]- Care Team Related Persons Name: JARROD BRADFORD Address: home [address] [place] [address] Name: LOLA BRADFORD Address: home [address] [place] [address] Name: GOLDIE LERMA Address: [place] [address] Name: OLIMPIA LERMA Address: [place] [address] Name: KADE LERMA Address: home [address] [place] [id number] Name: KADE LERMA Address: home [address] [place] [id number]
--- OUTSIDE RECORDS SUMMARY | 2023-11-02 08:38 | XMS_ITS | Continuity of Care Document ---
Author Organization [facility] Address [address] [place] [address]- Care Team Providers Care Senior Application Security Consultant Name Role Phone Terence PRATHER, Azra Primary Care Physician [place] [facility] [place] - 08[place]07/[facility] [address] [place] [id number] Attending Physician: Admtr, Ar8 Allergies, Adverse Reactions, [...] 01/15/20 9:51:00 EDT, Route to Pharmacy Electronically, [facility]/pharmacy #[id number], 184, cm, 01/15/20 9:11:00 EDT, Height, 123.27, [...] 02/07/20 9:49:00 EDT, Route to Pharmacy Electronically, [facility]/pharmacy #[id number], 184, cm, 01/29/20 14:16:00 [...] 08/17/20 13:12:00 EST, Route to Pharmacy Electronically, [facility]/pharmacy #[id number], 184, cm, 02/28/20 15:58:00 [...] MORNING, # 16 mL, 0 Refills, Maintenance, [facility], 30, USE 1 SPRAY IN EACH NOSTRIL [...] provided increased discomfort related to nerves. 3Seeing [place] neurology and sleep. Given a trial of Tegretol 200 mg upto 2 tablets twice a day andadvised to continue with Lyrica 300 mg twice a day. Had some improvement of the facial pain with this regimen. 4Seeing [place] neurology and asleep. On 09/11/2018 started on [...]
--- OUTSIDE RECORDS SUMMARY | 2023-11-02 08:38 | XMS_ITS | Continuity of Care Document ---
Author Organization [facility] Address [address] [place] [address]- Care Team Providers Care Corporate Intern Name Role Phone Contractor Krystal FERNANDEZ Primary Care Physician Encounter [facility] [place] Date(s): 12/25/20 - 01/24/[address] [address] Attending Physician: Cristian Padilla Admitting Physician: AdmtrCristian Referring Physician: Admtr ArLisa [...] 01/27/21 8:00:00 EDT, 11/27/20 10:53:00 EDT, Tablet, [facility]/pharmacy #[id number], Partial fill up... Start Date: 11/27/20 Stop Date: 01/27/21 Status: Ordered amLODIPine 10 mg oral tablet 10 mg, 1, tablet, By Mouth, Daily, # 90 tablet, Refills 3, Tot. Refills 3, Maintenance, 10/30/20 15:08:00 EDT, Route to Pharmacy Electronically, [facility]/pharmacy #[id number], 184, cm, 10/30/20 14:15:00 [...] Need length 99 months Please send to [facility], 01/21/21 13:20:00 EDT, Supply Start Date: 01/21/21 [...] [id number], cm, 02/28/20 15:58:00 EDT, Height, 123.27,... Start Date: 08/17/20 Stop Date: 08/02/23 Status: Ordered cyanocobalamin 1000 mcg oral tablet 1,000 mcg, 1, tablet, By Mouth, Daily, # 90 tablet, Refills 11, Tot. Refills 11, Maintenance, 08/02/23 13:12:00 EST, [id number] 184, cm, 01/01/21 10:56:00 [...] 1 Refills, Maintenance, 01/21/21 9:25:00 EDT, Gel, [facility]/pharmacy #[id number], Partial fill upon patientrequest if the prescription is for a schedule II o... Start Date: 01/21/21 Status: Ordered Diovan 320 mg oral tablet 1 tablet = 320 mg, By Mouth, Daily, # 90 tablet, 3 Refills, Maintenance, 01/01/21 11:24:00 EDT, Tablet, [facility]/pharmacy #[id number], 184, cm, 01/01/21 [...] 0 Refills, Maintenance, 10/03/20 15:41:00 EDT, Cream, [facility]/pharmacy #[id number], Partial fill upon patient request if the presc... Start Date: 10/03/20 Status: Ordered fluticasone 50 mcg/inh nasal spray See Instructions, USE 1 SPRAY IN EACH NOSTRIL EVERY MORNING, # 16 mL, 0 Refills, Maintenance, [facility], 30, USE 1 SPRAY IN EACH NOSTRIL [...] 11 Refills, Maintenance, 01/01/21 11:24:00 EDT, Tablet, [facility]/pharmacy #[id number], 184, cm, 01/01/21 [...] please send to [facility], 01/21/21 13:20:00 EDT, Supply Start Date: 01/21/21 Status: Ordered sulindac 150 mg oral tablet See Instructions, TAKE 1 TABLET BY MOUTH TWICE DAILY NEEDED FOR PAIN, # 28 tablet, 0 Refills, Maintenance, [facility], 184, cm, 12/09/20 11:19:00 EDT, Height, 123.27, [...] provided increased discomfort related to nerves. 3Seeing [place] neurology and sleep. Given a trial of [...]
--- OUTSIDE RECORDS SUMMARY | 2023-11-02 08:38 | XMS_ITS | Continuity of Care Document ---
Author Organization [facility] Address [address] [place] [address]- Care Team Providers Care Supervisor Fleshing Name Role Phone Contractor Krystal FERNANDEZ Primary Care Physician [phone] [place] [facility] [place] - 02/19/[address] [address] Allergies, Adverse Reactions, Alerts Substance Reaction Severity [...] 10/30/20 15:08:00 EDT, Route to Pharmacy Electronically, [facility]/pharmacy #[id number], 184, cm, 10/30/20 14:15:00 EDT, Height, 123.27, kg, 06/25/19 13:22:00 EST, Dry Weight Start Date: 10/30/20 Status: Ordered aspirin 81 mg oral delayed release tablet 81 mg, 1, tablet, By Mouth, Daily, # 90 tablet, Refills 0, Tot. Refills 0, Maintenance, 01/01/21 11:26:00 EDT, Route to Pharmacy Electronically, [facility]/pharmacy #[id number], Partial fill upon [...] Need length 99 months Please send to [facility], 01/21/21 13:20:00 EDT, Supply Start Date: 01/21/21 Status: Ordered Claritin 10 mg oral tablet 10 mg, 1, tablet, By Mouth, Daily, # 30 tablet, Refills 3, Tot. Refills 3, Maintenance, 01/29/21 9:13:00 EDT, Route to Pharmacy Electronically, [facility]/pharmacy #[id number], 184, cm, 01/29/21 [...] 08/02/23 13:12:00 EST, Route to Pharmacy Electronically, [facility]/pharmacy #[id number], 184, cm, 01/01/21 [...] 3 Refills, Maintenance, 01/01/21 11:24:00 EDT, Tablet, [facility]/pharmacy #[id number], 184, cm, 01/01/21 10:56:00 EDT, Height, 123.27, kg, 06/25/19 13:22:00 EST, Dry Weight Start Date: 01/01/21 Status: Ordered docusate sodium 100 mg oral tablet 1 tablet = 100 mg, By Mouth, 2 times a day, PRN for constipation, # 60 tablet, 5 Refills, Maintenance, 01/11/21 15:23:00 EDT, Tablet, [facility]/pharmacy #[id number], Partial fill upon patient request if the prescription is for a schedule II opioid drug., 184, cm,... Start Date: 01/11/21 Status: Ordered fluticasone 50 mcg/inh nasal spray See Instructions, USE 1 SPRAY IN EACH NOSTRIL EVERY MORNING, # 16 mL, 3 Refills, 01/29/21 9:11:00 EDT, [facility]/pharmacy #[id number], 30, USE 1 [...] 2 Refills, Maintenance, 02/10/21 13:09:00 EDT, Ointment, [facility]/pharmacy #[id number], Partial fill upon patient request if the prescription is for a schedule II opioid drug., 1 application Top... Start Date: 02/10/21 Status: Ordered metFORMIN 500 mg oral tablet 1 tablet = 500 mg, By Mouth, Daily, with meals, # 90 tablet, 11 Refills, Maintenance, 01/01/21 11:24:00 EDT, Tablet, [facility]/pharmacy #[id number], 184, cm, 01/01/21 10:56:00 EDT, Height, 123.27, kg, 06/25/19 13:22:00 EST, Dry Weight Start Date: 01/01/21 Status: Ordered omega-3 polyunsaturated fatty acids ethyl esters 1000 mg oral capsule 1 capsule = 1,000 mg, By Mouth, 2 times a day, # 60 capsule, 11 Refills, Maintenance, 01/01/21 11:25:00 EDT, Capsule, [facility]/pharmacy #[id number], 1 capsule By [...] 28 tablet, 0 Refills, Maintenance, [facility], 184, cm, 02/01/21 10:51:00 EDT, Height, 123.27, [...] 0 Refills, Maintenance, 02/18/21 8:37:00 EDT, Tablet, [facility]/pharmacy #[id number], Partial fill upon patient request if the [...] provided increased discomfort related to nerves. 3Seeing [place] neurology and sleep. Given a trial of Tegretol 200 mg upto 2 tablets twice a day andadvised to continue with Lyrica 300 mg twice a day. Had some improvement of the facial pain with this regimen. 4Seeing [place] neurology and asleep. On 09/11/2018 started on [...]
--- OUTSIDE RECORDS SUMMARY | 2023-11-02 08:39 | XMS_ITS | Continuity of Care Document ---
Author Organization [facility] Address [address] [place] [address]- Care Team Providers Care Collar Folder Operator Name Role Phone Dayo Castano MD Primary Care Physician [phone] Encounter [facility] Date(s): 08/16/23 - 09/15/[address] [address]- Allergies, Adverse Reactions, Alerts Substance Reaction Severity [...] influenza virus vaccine, inactivated 04/16/15 Give n [id number] 12y+ bivalent booster vax 02/21/23 Given SARS-CoV-2 (COVID-19) mRNA BNT-162b2 vac 1 06/01/21 Given SARS-CoV-2 (COVID-19) mRNA BNT-162b2 vac 11/07/20 Recorded SARS-CoV-2 (COVID-19) mRNA BNT-162b2 vac 10/17/20 Recorded zoster vaccine, inactivated 06/18/19 Recorded zoster vaccine, inactivated 06/17/19 Recorded zoster vaccine, inactivated 11/25/17 Recorded Influenza Vaccine (oldterm) 02/17/17 Recorded pneumococcal 23-valent vaccine 02/16/16 Given tetanus/diphtheria/pertussis, acel(Tdap) 11/25/14 Given 1Result Comment: DILUENT LOT#: [id number] EXP: 11/2022 MFG: FRESENSIUS Medications Albuterol (Eqv-ProAir [...] Mouth, Daily at bedtime, Rx'd by neurology ([facility]), # 30 tablet, 0 Refills, Maintenance, [...] Need length 99 months Please send to [place] [facility], 01/21/21 13:20:00 EDT, Supply Start Date: 01/21/21 [...] 8:45:00 EDT, Route to Pharmacy Electronically, [facility]/pharmacy #[id number], Partial fill upon patient request [...] 14:26:00 EDT, 08/07/23 14:26:00 EST, Cream, [facility]/pharmacy #[id number], Partial fill upon patient request [...] 5 Refills, Maintenance, 07/04/23 8:59:00 EST, [facility]/pharmacy #[id number], 30, APPLY TOPICALLY TO AFFECTED [...] 8:42:00 EDT, Route to Pharmacy Electronically, [facility]/pharmacy #[id number], 183, cm, 04/04/23 8:24:00EDT, Height, 123.2, kg, 02/07/22 12:47:00 EDT, Dry... Start Date: 04/04/23 Status: Ordered Metamucil 3.4 gm/5.2 gm oral powder for reconstitution = 3.4 Gm, By Mouth, 3 times a day, PRN as needed for constipation, # 425 Gm, 11 Refills, Maintenance, 08/07/23 14:34:00 EST, REC Powder, [facility]/pharmacy #[id number], Partial fill upon patient request [...] CESSATION, # 40 gum, 0 Refills, [facility], 184, cm, 12/27/21 11:50:00 EDT, Height Start [...] 03/29/24 8:46:00 EDT, 04/04/23 8:46:00 EDT, [facility]/pharmacy #[id number], 1 capsule By Mouth 2 times a day,x90 days, 183, cm, 04/04/23 8:24:00 EDT, Height, 123.2, kg, 082... Start Date: 04/04/23 Stop Date: 03/29/24 Status: Ordered omeprazole 20 mg oral enteric coated capsule 1 capsule, By Mouth, Daily, # 90 capsule, 3 Refills, Maintenance, 04/04/23 8:46:00 EDT, [facility]/pharmacy #[id number], 183, cm, 04/04/23 8:24:00 EDT, [...] 1 Refills, Maintenance, 04/04/23 8:46:00 EDT, [facility]/pharmacy #[id number], 14,DISSOLVE 17 GRAMS IN WATER [...] times a day, rx'd by neurology at [facility], # 120 tablet, Refills 0, Maintenance, [...] times a day, Rx'd by neurology at [facility] - Alisa Lazaro, # 270 tablet, [...] Maintenance, DX: M51. 26 please send to [facility], 08/08/22 15:41:00 EST, Supply Start Date: [...] 14:39:00 EST, Aerosol, Route to Pharmacy Electronically, [id number], [facility]/pharmacy #[id number], 183, cm, 08/07/23 14:26:00 EST, [...] Refills, Maintenance, 04/04/23 8:43:00 EDT, Tablet, [facility]/pharmacy #[id number], Partial fill upon patient request if theprescription is for a schedule II opioid drug., 183... Start Date: 04/04/23 Status: Ordered valsartan 320 mg oral tablet 1 tablet, By Mouth, Daily, blood pressure, # 90 tablet, 3 Refills, Maintenance, 04/04/23 8:46:00 EDT, [facility]/pharmacy #[id number], 183, cm, 04/04/23 8:24:00 EDT, Height, 123.2, kg, 02/07/22 12:47:00 EDT, Dry Weight Start Date: 04/04/23 Status: Ordered Vitamin B-12 1000 mcg oral tablet 1, tablet, By Mouth, Daily, # 90 tablet, Refills 1, Maintenance, 08/28/23 13:12:00 EDT, Route to Pharmacy Electronically, [facility] 22[facility], 183, cm, 08/22/23 13:24:00 EST, Height, 123.2, kg, 02/07/22 12:47:00 EDT, Dry Weight Start Date: 08/28/23 Status: Ordered Xopenex HFA 45 mcg/inh inhalation aerosol 2 puffs, Inhalation, Every 4 hours, PRN Wheezing/Shortness of Breath, replaces Ventolin due to reaction, # 1 each, 1 Refills, Maintenance, 02/15/23 11:23:00 EDT, Aerosol, [id number], Partial fill upon patient request if the [...] provided increased discomfort related to nerves. 3Seeing [place] neurology and sleep. Given a trial of [...] Care Team Personnel Name: Casandra Parker Position: [facility] Office Staff Member Role: Lifetime Consulting Physician Name: Dayo Castano MD Position: [facility] Physician - Primary Care Member Role: PCP Address: Address: [address] [place] [address]- [place] Care Team Related Persons Name: JOSIAS BRADFORDLinda Address: home [address] [place] [address] Name: MURRAYYAHAIRALOLA Roberts Address: home [address] [place] [address] Name: GOLDIE LERMA Address: [place] [address] Name: CASANDRA LERMA Address: [place] [address] Name: KADE LERMA Address: home [address] [place] [address] Name: KADE LERMA Address: home [address] [place] [address]
--- OUTSIDE RECORDS SUMMARY | 2023-11-02 08:39 | XMS_ITS | Continuity of Care Document ---
Author Organization [facility] Address [address] [place] [address]- Care Team Providers Care Roofer Vinyl Coating Name Role Phone Contractor Krystal FERNANDEZ Primary Care Physician [phone] Encounter [facility] Date(s): 11/11/21 - 12/11/[address] [address]- Allergies, Adverse Reactions, Alerts Substance Reaction Severity [...] acel(Tdap) 11/25/14 Given 1Result Comment: DILUENT LOT#: [id number] EXP: 11/2022 MFG: FRESENSIUS Medications amitriptyline 100 [...] Need length 99 months [facility] send [facility], 01/21/21 13:20:00 EDT, Supply Start Date: 01/21/21 Status: Ordered carbidopa-levodopa 25 mg-100 mg oral tablet 1 tablet, By Mouth, 3 times a day, [facility] Dr. Murphy, # 270 tablet, 0 Refills, Maintenance, 04/15/21 23:30:00 EDT, Tablet, Partial fill upon patient request if the prescription is for a schedule II opioid drug. Start Date: 04/15/21 Status: Ordered chlorthalidone 25 mg oral tablet 1, tablet, By Mouth, Daily, # 30 tablet, Refills 5, Tot. Refills 5, 09/28/21 8:08:00 EDT, Route to Pharmacy Electronically, [facility]/pharmacy #[id number], 184, cm, 09/15/21 9:12:00 EDT, Height Start [...] 0 Refills, Maintenance, 10/07/21 20:16:00 EDT, Cream, [facility]/pharmacy #[id number], Partial [...] # 90 tablet, 1 Refills, [facility], 184, cm, 11/15/21 9:55:00 EDT, Height Start [...] 2 Refills, Maintenance, 11/02/21 14:30:00 EDT, Ointment, [facility]/pharmacy #[id number], Partial fill upon patient request if the prescription is for a schedule II opioid drug., 1 application Top... Start Date: 11/02/21 Status: Ordered loratadine 10 mg oral tablet 1, tablet, By Mouth, Daily, PRN, # 90 tablet, Refills 1, NEEDED FOR ALLERGIES, Route to PharmacyElectronically, [facility], 184, cm, 10/18/21 13:37:00 EDT, Height Start Date: 10/22/21 Status: Ordered magnesium oxide 400 mg oral tablet 1 tablet = 400 mg, By Mouth, Daily, Rx[facility]/ Dr. Murphy, 0 Refills, Maintenance, 04/15/21 23:30:00 [...] 11 Refills, Maintenance, 12/27/21 11:25:00 EDT, Capsule, [facility]/pharmacy #[id number], 1 capsule By Mouth 2 [...] please send to [facility], 01/21/21 13:20:00 EDT, Supply Start Date: 01/21/21 Status: Ordered sulindac 150 mg oral tablet See Instructions, TAKE 1 TABLET BY MOUTH TWICE A DAY NEEDED FOR PAIN, # 28 tablet, 0 Refills, Maintenance, [facility], 184, cm, 02/01/21 10:51:00 EDT, Height, 123.27, kg, 06/25/19 13:22:00 EST, Dry Weight Start Date: 02/01/21 Status: Ordered traMADol 50 mg oral tablet 1 tablet = 50 mg, By Mouth, Every 6 hours, PRN as needed for pain, for 7 days, # 28 tablet, 0 Refills, Acute 12/16/21 15:39:00 EDT, 12/09/21 15:39:00 EDT, Tablet, [facility]/pharmacy #[id number], Partial [...] 15:40:00 EDT, 12/09/21 15:40:00 EDT, ER Tablet, [facility]/pharmacy #[id number], [...] provided increased discomfort related to nerves. 3Seeing [place] neurology and sleep. Given a trial of Tegretol 200 mg upto 2 tablets twice a day andadvised to continue with Lyrica 300 mg twice a day. Had some improvement of the facial pain with this regimen. 4Seeing [place] neurology and asleep. On 09/11/2018 started on [...]
--- OUTSIDE RECORDS SUMMARY | 2023-11-02 08:39 | XMS_ITS | Continuity of Care Document ---
Author Organization [facility] Address [address] [place] [address]- Care Team Providers Care Workforce Development Assistant Name Role Phone Contractor Krystal FERNANDEZ Primary Care Physician [place] [facility] [place] - 03/17/[address] [address]- Allergies, Adverse Reactions, Alerts Substance Reaction Severity [...] 1 Refills, Maintenance, 03/17/21 10:19:00 EDT, Tablet, [facility]/pharmacy #[id number], Partial fill upon [...] 3 Refills, Maintenance, 03/03/21 17:24:00 EDT, Tablet, [facility]/pharmacy #4471, Partial fill upo... Start Date: 03/03/21 Status: Ordered aspirin 81 mg oral delayed release tablet 81 mg, 1, tablet, By Mouth, Daily, # 90 tablet, Refills 0, Tot. Refills 0, Maintenance, 01/01/21 11:26:00 EDT, Route to Pharmacy Electronically, [facility]/pharmacy #[id number], Partial fill upon patient request if the prescription is for a schedule II opioid drug... Start Date: 01/01/21 Status: Ordered aspirin 81 mg oral tablet 1 tablet = 81 mg, By Mouth, Daily, # 90 tablet, 3 Refills, Maintenance, 01/15/20 9:51:00 EDT, Tablet, [facility]/pharmacy #[id number], 184, cm, 01/15/20 9:11:00 EDT, Height, [...] Need length 99 months Please send to [facility], 01/21/21 13:20:00 EDT, Supply Start Date: 01/21/21 Status: Ordered chlorthalidone 25 mg oral tablet 25 mg, 1, tablet, By Mouth, Daily, # 30 tablet, Refills 0, Tot. Refills 0, Maintenance, 03/03/21 17:24:00 EDT, Route to Pharmacy Electronically, [facility]/pharmacy #[id number], Partial fill upon patient request if the prescription is for a schedule II opioid drug... Start Date: 03/03/21 Status: Ordered Claritin 10 mg oral tablet 10 mg, 1, tablet, By Mouth, Daily, # 30 tablet, Refills 3, Tot. Refills 3, Maintenance, 01/29/21 9:13:00 EDT, Route to Pharmacy Electronically, [facility]/pharmacy #[id number], 184, cm, 01/29/21 9:06:00 EDT, Height, [...] 17:36:00 EDT, [id number] Partial fill upon patient request [...] [id number] 184, cm, 02/28/20 15:58:00 EDT, Height, 123.27,... Start Date: 08/17/20 Stop Date: 08/02/23 Status: Ordered cyanocobalamin 1000 mcg oral tablet 1,000 mcg, 1, tablet, By Mouth, Daily, # 90 tablet, Refills 11, Tot. Refills 11, Maintenance, 08/02/23 13:12:00 EST, [id number] 184, cm, 01/01/21 10:56:00 EDT, [...] 5 Refills, Maintenance, 01/11/21 15:23:00 EDT, Tablet, [facility]/pharmacy #4471, Partial fill upon patient request if the prescription is for a schedule II opioid drug., 184, cm,... Start Date: 01/11/21 Status: Ordered fluticasone 50 mcg/inh nasal spray See Instructions, USE 1 SPRAY IN EACH NOSTRIL EVERY MORNING, # 16 mL, 3 Refills, 01/29/21 9:11:00 EDT, [facility]/pharmacy #4471, 30, USE 1 SPRAY IN EACH [...] 2 Refills, Maintenance, 02/10/21 13:09:00 EDT, Ointment, [facility]/pharmacy #4471, Partial fill upon patient request [...] Refills, Maintenance, 02/24/21 9:28:00 EDT, EC Capsule, [facility]/pharmacy #4471, 184, cm, 02/03/21 10:57:00 EDT, Height, [...] PAIN, # 28 tablet, 0 Refills, Maintenance, [facility] 439[facility], 184, cm, 02/01/21 10:51:00 EDT, Height, 123.27, [...] 5 Refills, Maintenance, 03/11/21 9:40:00 EDT, Tablet, [facility]/pharmacy #8759, Partial fill upon patient request if the [...] provided increased discomfort related to nerves. 3Seeing [place] neurology and sleep. Given a trial of Tegretol 200 mg upto 2 tablets twice a day andadvised to continue with Lyrica 300 mg twice a day. Had some improvement of the facial pain with this regimen. 4Seeing [place] neurology and asleep. On 09/11/2018 started on [...]
--- OUTSIDE RECORDS SUMMARY | 2023-11-02 08:39 | XMS_ITS | Continuity of Care Document ---
Author Organization [facility] Address [address] [place] [address]- Care Team Providers Care Top Installer Name Role Phone Contractor Krystal FERNANDEZ Primary Care Physician [phone] Encounter [facility] Date(s): 06/09/21 - 07/09/[address] [address]- Allergies, Adverse Reactions, Alerts Substance Reaction Severity [...] acel(Tdap) 11/25/14 Given 1Result Comment: DILUENT LOT#: [id number] EXP: 11/2022 MFG: FRESENSIUS Medications amitriptyline 100 [...] Need length 99 months Please send to [place] [facility], 01/21/21 13:20:00 EDT, Supply Start Date: 01/21/21 Status: Ordered carbidopa-levodopa 25 mg-100 mg oral tablet 1 tablet, By Mouth, 3 times a day, Rx'd by Neurology at [facility] [place]/ Dr. Murphy, # 270 tablet, 0 Refills, Maintenance, 04/15/21 23:30:00 EDT, Tablet, Partial fill upon patient request if the prescription is for a schedule II opioid drug. Start Date: 04/15/21 Status: Ordered chlorthalidone 25 mg oral tablet 1, tablet, By Mouth, Daily, # 30 tablet, Refills 5, Route to Pharmacy Electronically, [facility], 184, cm, 03/30/21 16:08:00 EDT, Height, 123.27, [...] Refills, Maintenance, 06/22/21 15:50:00 EST, Tablet, [facility]/pharmacy #[id number], Partial fill [...] tablet, 5 Refills,Maintenance, 07/09/21 11:36:00 EST, Tablet, [facility]/pharmacy #[id number], Partial fill [...] Mouth, Daily, Rx'd by Neurology at [facility] [place]/ Dr. Murphy, 0 Refills, Maintenance, 04/15/21 23:30:00 [...] Topically, Daily, for 6 week(s), Rx in [place], # 42 patch, 1 Refills, Acute 08/16/21 16:13:00 EST, 05/24/21 16:13:00 EST, Patch, [facility]/pharmacy #[id number], Partial fill upon patient [...] Daily, # 90 capsule, 0 Refills, [facility] 17[facility], 184, cm, 06/14/21 11:01:00 EST, Height, 123.27, [...] 28 tablet, 0 Refills, Maintenance, [facility], 184, cm, 02/01/21 10:51:00 EDT, Height, 123.27, kg, 06/25/19 13:22:00 EST, Dry Weight Start Date: 02/01/21 Status: Ordered Tylenol Extra Strength 500 mg oral tablet 2 tablet = 1,000 mg, By Mouth, 3 times a day, PRN as needed for pain, # 100 tablet, 5 Refills, Maintenance, 04/13/21 10:08:00 EDT, Tablet, [facility]/pharmacy #4471, Partial fill [...] provided increased discomfort related to nerves. 3Seeing [place] neurology and sleep. Given a trial of Tegretol 200 mg upto 2 tablets twice a day andadvised to continue with Lyrica 300 mg twice a day. Had some improvement of the facial pain with this regimen. 4Seeing [place] neurology and asleep. On 09/11/2018 started on [...]
--- OUTSIDE RECORDS SUMMARY | 2023-11-02 08:39 | XMS_ITS | Continuity of Care Document ---
Author Organization [facility] Address [address] [place] [address]- Care Team Providers Care Hse Manager Name Role Phone Ivone Oneil MD Primary Care Physician [phone] [place] [facility] [place]16[place] - 09/15/[address] [address]- Allergies, Adverse Reactions, Alerts Substance Reaction Severity [...] acel(Tdap) 11/25/14 Given 1Result Comment: DILUENT LOT#: [id number] EXP: 11/2022 MFG: FRESENSIUS Medications amitriptyline 100 mg oral tablet 1 tablet = 100 mg, By Mouth, Daily at bedtime, # 30 tablet, 3 Refills, Maintenance, 12/27/21 12:09:00 EDT, Tablet, [facility]/pharmacy #[id number], Partial [...] Need length 99 months Please send to [facility], 01/21/21 13:20:00 EDT, Supply [...] [id number] 184, cm, 01/01/21 10:56:00 EDT, Height, 123.27,... Start Date: 08/02/23 Stop Date: 07/17/26 Status: Ordered cyanocobalamin 1000 mcg oral tablet 1,000 mcg, 1, tablet, By Mouth, Daily, # 90 tablet, Refills 1, Tot. Refills 1, Maintenance, 07/01/29 13:12:00 EST, [facility] Pharm[facility]ically, [id number] 183, cm, 08/22/22 8:28:00 EST,Height, 123.2, [...] Gm, 2 Refills, Maintenance, 07/28/22 8:54:00 EST, [facility], 30, APPLY TOPICALLY TO AFFECTED ARE TWICE A DAY NEEDED FOR PAIN, 183, cm, 07/07/22 10:54:00 E... Start Date: 07/28/22 Status: Ordered empagliflozin 10 mg oral tablet 1 tablet = 10 mg, By Mouth, Daily in AM, # 30 tablet, 2 Refills, Maintenance, 08/23/22 8:44:00 EST,Tablet, [facility]/pharmacy #1556, Partial fill upon patient request if the [...] Dry Weight Start Date: 09/08/22 Status: Ordered levocetirizine 5 mg oral tablet 1 tablet = 5 mg, By Mouth, Daily in AM, # 30 tablet, 2 Refills, Maintenance, 08/23/22 8:44:00 EST, Tablet, [facility]/pharmacy #[id number], Label in lao, cetrizine not effective, 1 tablet By Mouth Daily in AM, 183, cm, 08/22/22 8:28:00 EST, Height, 123.2, kg,... Start Date: 08/23/22 Status: Ordered loratadine 10 mg oral tablet 1, tablet, By Mouth, Daily, PRN, # 90 tablet, Refills 1, NEEDED FOR ALLERGIES, Route to PharmacyElectronically, [facility], 184, cm, 10/18/21 13:37:00 EDT, Height Start Date: 10/22/21 Status: Ordered magnesium oxide 400 mg oral tablet 1 tablet = 400 mg, By Mouth, Daily, Rx'd by Neurology at [facility]/ Dr. Murphy, 0 Refills, Maintenance, 04/15/21 23:30:00 EDT, Partial fill upon patient request if the prescription is for a schedule II opioid drug. Start Date: 04/15/21 Status: Ordered Metamucil 3.4 gm/5.2 gm oral powder for reconstitution = 3.4 Gm, By Mouth, 3 times a day, PRN as needed for constipation, # 425 Gm, 11 Refills, Maintenance, 09/12/22 20:51:00 EDT, REC Powder, [facility]/pharmacy #[id number], Partial fill upon [...] SMOKING CESSATION, # 40 gum, 0 Refills, [facility], 184, cm, 12/27/21 11:50:00 EDT, Height Start [...] a day, # 180 capsule, 3 Refills, [facility] 58[facility], 90, TAKE 1 CAPSULE BY MOUTH TWICE [...] 0 Refills, Maintenance, 06/29/21 15:41:00 EST, Capsule, [facility]/pharmacy #[id number], Partial fill upon patient request if the prescription is for a schedule II o... Start Date: 06/29/21 Stop Date: 07/29/21 Status: Ordered primidone 50 mg oral tablet 100 mg, 2, tablet, By Mouth, 3 times a day, Rx'd by Neurology at [facility] [place]/ Dr. Murphy, Refills 0, Maintenance, 03/07/19 8:44:30 [...] 12:43:00 EDT, Aerosol, Route to Pharmacy Electronically, [id number], [facility]/pharmacy #[id number], 184, cm, 12/27/21 [...] Refills, Maintenance, 03/15/22 14:29:00 EDT, [facility], 183, cm, 02/08/22 6:42:00 EDT, Height, 123.2, [...] provided increased discomfort related to nerves. 3Seeing [place] neurology and sleep. Given a trial of Tegretol 200 mg upto 2 tablets twice a day andadvised to continue with Lyrica 300 mg twice a day. Had some improvement of the facial pain with this regimen. 4Seeing [place] neurology and asleep. On 09/11/2018 started on [...] Care Team Personnel Name: Olimpia Parker Position: [facility] Office Staff Member Role: Lifetime Consulting Physician Name: Ivone Oneil MD Position: [facility] Primary Care Physician Member Role: PCP Address: Address: [address] [place] [id number]- [place] Care Team Related Persons Name: JOSIAS BRADFORDLinda Address: home [address] [place] [address] Name: LOLA BRADFORD Address: home [address] [place] [address] Name: GOLDIE LERMA Address: [place] [address] Name: OLIMPIA LERMA Address: [place] [address] Name: KADE LERMA Address: home [address] [place] [address] Name: KADE LERMA Address: home [address] [place] [address]
--- OUTSIDE RECORDS SUMMARY | 2023-11-02 08:39 | XMS_ITS | Continuity of Care Document ---
Author Organization [facility] Address [address] [place] [address]- Care Team Providers Care Architect Internship Name Role Phone Terence PRATHER, Azra Primary Care Physician Encounter [facility] [place] Date(s): 03/13/20 - 04/12/[address] [address]- [facility] Allergies, Adverse [...] 01/15/20 9:51:00 EDT, Route to Pharmacy Electronically, [facility]/pharmacy #[id number], 184, cm, 01/15/20 9:11:00 EDT, Height, 123.27, kg, 06/25/19 13:22:00 EST, Dry Weight Start Date: 01/15/20 Stop Date: 03/15/20 Status: Ordered aspirin 81 mg oral tablet 1 tablet = 81 mg, By Mouth, Daily, # 90 tablet, 3 Refills, Maintenance, 01/15/20 9:51:00 EDT, Tablet, [facility]/pharmacy #[id number], 184, cm, 01/15/20 9:11:00 EDT, [...] 02/07/20 9:49:00 EDT, Route to Pharmacy Electronically, [facility]/pharmacy #[id number], 184, cm, 01/29/20 14:16:00 EDT, [...] 08/17/20 13:12:00 EST, Route to Pharmacy Electronically, [facility]/pharmacy #[id number], 184, cm, 02/28/20 15:58:00 EDT, [...] 3 Refills, Maintenance, 01/15/20 9:51:00 EDT, Tablet, [facility]/pharmacy #[id number], 184, cm, 01/15/20 9:11:00 EDT, Height, 123.27, kg, 06/25/19 13:22:00 EST, Dry Weight Start Date: 01/15/20 Stop Date: 03/15/20 Status: Ordered fluticasone 50 mcg/inh nasal spray See Instructions, USE 1 SPRAY IN EACH NOSTRIL EVERY MORNING, # 16 mL, 0 Refills, Maintenance, [facility] 85[facility], 30, USE 1 SPRAY IN EACH NOSTRIL [...]
--- OUTSIDE RECORDS SUMMARY | 2023-11-02 08:39 | XMS_ITS | Continuity of Care Document ---
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 Start Date: 11/27/20 Stop Date: 01/27/21 Status: Ordered amLODIPine 10 mg oral tablet 10 mg, 1, tablet, By Mouth, Daily, # 90 tablet, Refills 3, Tot. Refills 3, Maintenance, 10/30/20 15:08:00 EDT, Route to Pharmacy Electronically, [facility]/pharmacy #[id number], 184, cm, 10/30/20 14:15:00 EDT, Height, 123.27, kg, 06/25/19 13:22:00 EST, Dry Weight Start Date: 10/30/20 Status: Ordered aspirin 81 mg oral delayed release tablet 81 mg, 1, tablet, By Mouth, Daily, # 90 tablet, Refills 0, Tot. Refills 0, Maintenance, 01/01/21 11:26:00 EDT, Route to Pharmacy Electronically, [facility]/pharmacy #[id number], Partial fill upon patient request if the prescription is for a schedule II opioid drug... Start Date: 01/01/21 Status: Ordered aspirin 81 mg oral tablet 1 tablet = 81 mg, By Mouth, Daily, # 90 tablet, 3 Refills, Maintenance, 01/15/20 9:51:00 EDT, Tablet, [facility]/pharmacy #[id number], 184, cm, 01/15/20 9:11:00 EDT, [...] 9:49:00 EDT, Route to Pharmacy Electronically, [facility]/pharmacy #[id number], 184, cm, 01/29/20 14:16:00 EDT, [...] 13:12:00 EST, Route to Pharmacy Electronically, [facility]/pharmacy #[id number], 184, cm, 02/28/20 15:58:00 EDT, Height, 123.27,... Start Date: 08/17/20 Stop Date: 08/02/23 Status: Ordered cyanocobalamin 1000 mcg oral tablet 1,000 mcg, 1, tablet, By Mouth, Daily, # 90 tablet, Refills 11, Tot. Refills 11, Maintenance, 08/02/23 13:12:00 EST, Route to Pharmacy Electronically, [facility]/pharmacy #[id number], 184, cm, 01/01/21 10:56:00 EDT, [...] 1 Refills, Maintenance, 12/03/20 16:21:00 EDT, Gel, [facility]/pharmacy #[id number], Partial fill upon patient request if the prescription is for a schedule II... Start Date: 12/03/20 Status: Ordered Diovan 320 mg oral tablet 1 tablet = 320 mg, By Mouth, Daily, # 90 tablet, 3 Refills, Maintenance, 01/01/21 11:24:00 EDT, Tablet, [facility]/pharmacy #[id number], 184, cm, 01/01/21 10:56:00 EDT, Height, 123.27, kg, 06/25/19 13:22:00 EST, Dry Weight Start Date: 01/01/21 Status: Ordered fluocinonide 0.05% topical cream See Instructions, 1 application Topically 3 times a day, as needed, for itchy rash. apply a thin film to affected areas, # 30 Gm, 0 Refills, Maintenance, 10/03/20 15:41:00 EDT, Cream, [facility]/pharmacy #[id number], Partial fill upon patient request if the presc... Start Date: 10/03/20 Status: Ordered fluticasone 50 mcg/inh nasal spray See Instructions, USE 1 SPRAY IN EACH NOSTRIL EVERY MORNING, # 16 mL, 0 Refills, Maintenance, [id number], 30, USE 1 SPRAY IN EACH NOSTRIL [...] Refills, Maintenance, 01/01/21 11:24:00 EDT, Tablet, [facility]/pharmacy #[id number], 184, cm, 01/01/21 10:56:00 EDT, Height, 123.27, kg, 06/25/19 13:22:00 EST, Dry Weight Start Date: 01/01/21 Status: Ordered omega-3 polyunsaturated fatty acids ethyl esters 1000 mg oral capsule 1 capsule = 1,000 mg, By Mouth, 2 times a day, # 60 capsule, 11 Refills, Maintenance, 01/01/21 11:25:00 EDT, Capsule, [facility]/pharmacy #[id number], 1 capsule By Mouth 2 times a day,x30 days, 184, cm, 01/01/21 10:56:00 EDT, Height, 123.27, kg, 06/25/19 13:22:00... Start Date: 01/01/21 Stop Date: 12/27/21 Status: Ordered omeprazole 20 mg oral enteric coated capsule 1 capsule = 20 mg, By Mouth, Daily, # 30 capsule, 2 Refills, Maintenance, 02/06/20 16:40:00 EDT, ECCapsule, [facility]/pharmacy #[id number], 184, cm, 01/29/20 14:16:00 EDT, Height, 123.27, kg, 06/25/19 13:22:00 EST, Dry Weight Start Date: 02/06/20 Status: Ordered Robaxin-750 750 mg oral tablet 2 tablet = 1,500 mg, By Mouth, 3 times a day, for 10 days, it make drowsiness, # 60 tablet, 0 Refills, Acute 01/11/21 11:23:00 EDT, 01/01/21 11:23:00 EDT, Tablet, [facility]/pharmacy #[id number], Partial fill upon patient request [...] 01/15/21 11:19:00 EDT, 01/01/21 11:19:00 EDT, Tablet, [facility]/pharmacy #[id number], Partial fill uponpatient request if the prescription is for a schedu... Start Date: 01/01/21 Stop Date: 01/15/21 Status: Ordered sulindac 150 mg oral tablet See Instructions, TAKE 1 TABLET BY MOUTH TWICE DAILY NEEDED FOR PAIN, # 28 tablet, 0 Refills, Maintenance, [id number], 184, cm, 12/09/20 11:19:00 EDT, Height, 123.27, [...] increased discomfort related to nerves. 3Seeing [place] neurology and sleep. Given a trial of Tegretol 200 mg upto 2 tablets twice a day andadvised to continue with Lyrica 300 mg twice a day. Had some improvement of the facial pain with this regimen. 4Seeing [place] neurology and asleep. On 09/11/2018 started on [...]
--- OUTSIDE RECORDS SUMMARY | 2023-11-02 08:39 | XMS_ITS | Continuity of Care Document ---
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 Refills 0, Maintenance, 01/01/21 11:26:00 EDT, Route to Pharmacy Electronically, [facility]/pharmacy #[id number], Partial fill upon patient request [...] data capabilities and following residual AHI. Dx: KREMIT (G47... Start Date: 06/27/16 Status: Ordered Auto [...] Need length 99 months Please send to [facility], 01/21/21 13:20:00 EDT, Supply Start Date: 01/21/21 Status: Ordered Claritin 10 mg oral tablet 10 mg, 1, tablet, By Mouth, Daily, # 30 tablet, Refills 3, Tot. Refills 3, Maintenance, 01/29/21 9:13:00 EDT, Route to Pharmacy Electronically, [facility]/pharmacy #[id number], 184, cm, 01/29/21 9:06:00 EDT, [...] Pharmacy Electronically, [facility]/pharmacy #[id number], 184, cm, 01/01/21 10:56:00 EDT, [...] 3 Refills, Maintenance, 01/01/21 11:24:00 EDT, Tablet, [facility]/pharmacy #[id number], 184, cm, 01/01/21 10:56:00 EDT, Height, 123.27, kg, 06/25/19 13:22:00 EST, Dry Weight Start Date: 01/01/21 Status: Ordered docusate sodium 100 mg oral tablet 1 tablet = 100 mg, By Mouth, 2 times a day, PRN for constipation, # 60 tablet, 5 Refills, Maintenance, 01/11/21 15:23:00 EDT, Tablet, [facility]/pharmacy #[id number], Partial fill upon patient request if the prescription is for a schedule II opioid drug., 184, cm,... Start Date: 01/11/21 Status: Ordered fluticasone 50 mcg/inh nasal spray See Instructions, USE 1 SPRAY IN EACH NOSTRIL EVERY MORNING, # 16 mL, 3 Refills, 01/29/21 9:11:00 EDT, [facility]/pharmacy #[id number], 30, USE 1 SPRAY IN [...] 2 Refills, Maintenance, 02/10/21 13:09:00 EDT, Ointment, [facility]/pharmacy #[id number], Partial fill upon patient request if the prescription is for a schedule II opioid drug., 1 application Top... Start Date: 02/10/21 Status: Ordered metFORMIN 500 mg oral tablet 1 tablet = 500 mg, By Mouth, Daily, with meals, # 90 tablet, 11 Refills, Maintenance, 01/01/21 11:24:00 EDT, Tablet, [facility]/pharmacy #[id number], 184, cm, 01/01/21 10:56:00 EDT, Height, 123.27, kg, 06/25/19 13:22:00 EST, Dry Weight Start Date: 01/01/21 Status: Ordered omega-3 polyunsaturated fatty acids ethyl esters 1000 mg oral capsule 1 capsule = 1,000 mg, By Mouth, 2 times a day, # 60 capsule, 11 Refills, Maintenance, 01/01/21 11:25:00 EDT, Capsule, [facility]/pharmacy #[id number], 1 capsule By Mouth 2 times a day,x30 days, 184, cm, 01/01/21 10:56:00 EDT, Height, 123.27, kg, 06/25/19 13:22:00... Start Date: 01/01/21 Stop Date: 12/27/21 Status: Ordered omeprazole 20 mg oral enteric coated capsule 1 capsule = 20 mg, By Mouth, Daily, # 30 capsule, 2 Refills, Maintenance, 02/06/20 16:40:00 EDT, ECCapsule, [facility]/pharmacy #[id number], 184, cm, 01/29/20 14:16:00 [...] 28 tablet, 0 Refills, Maintenance, [facility], 184, cm, 02/01/21 10:51:00 EDT, Height, 123.27, [...] Refills, Maintenance, 02/18/21 8:37:00 EDT, Tablet, [id number], Partial fill upon patient request if the [...] provided increased discomfort related to nerves. 3Seeing [place] neurology and sleep. Given a trial of Tegretol 200 mg upto 2 tablets twice a day andadvised to continue with Lyrica 300 mg twice a day. Had some improvement of the facial pain with this regimen. 4Seeing [place] neurology and asleep. On 09/11/2018 started on [...]
--- OUTSIDE RECORDS SUMMARY | 2023-11-02 08:39 | XMS_ITS | Continuity of Care Document ---
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/pharmacy #[id number], Partial fill upo... Start Date: 03/03/21 Status: Ordered aspirin 81 mg oral delayed release tablet 81 mg, 1, tablet, By Mouth, Daily, # 90 tablet, Refills 0, Tot. Refills 0, Maintenance, 01/01/21 11:26:00 EDT, Route to Pharmacy Electronically, [facility]/pharmacy #[id number], Partial fill upon patient request if the prescription is for a schedule II opioid drug... Start Date: 01/01/21 Status: Ordered atorvastatin 20 mg oral tablet 1 tablet = 20 mg, By Mouth, Daily, # 90 tablet, 0 Refills, Maintenance, 09/15/21 12:17:00 EDT, Tablet, [facility] [...] 11:11:00 EDT, 10/28/21 11:11:00 EDT, CR Tablet, [facility]/pharmacy #[id number], Partial fill upon patient request if the [...] Need length 99 months Please send to [facility], 01/21/21 13:20:00 EDT, Supply Start Date: 01/21/21 Status: Ordered carbidopa-levodopa 25 mg-100 mg oral tablet 1 tablet, By Mouth, 3 times a day, Rx'd by Neurology at [facility] Lazaro/ Dr. Murphy, # 270 tablet, 0 Refills, Maintenance, 04/15/21 23:30:00 EDT, Tablet, Partial fill upon patient request if the prescription is for a schedule II opioid drug. Start Date: 04/15/21 Status: Ordered chlorthalidone 25 mg oral tablet 1, tablet, By Mouth, Daily, # 30 tablet, Refills 5, Tot. Refills 5, 09/28/21 8:08:00 EDT, Route to Pharmacy Electronically, [facility]/pharmacy #[id number], 184, cm, 09/15/21 9:12:00 EDT, [...] 0 Refills, Maintenance, 10/07/21 20:16:00 EDT, Cream, [facility]/pharmacy #[id number], [...] 5 Refills, Maintenance, 10/07/21 20:16:00 EDT, Tablet, [facility]/pharmacy #[id number], Partial fill upon patient request if the prescription is for a schedule II opioid drug., 184, cm,... Start Date: 10/07/21 Status: Ordered escitalopram 20 mg oral tablet 1 tablet = 20 mg, By Mouth, Daily, # 30 tablet, 3 Refills, Maintenance, 07/13/21 12:26:00 EST, Tablet, [facility]/pharmacy #[id number], d/c citalopram 10 mg, 184, cm, 06/14/21 11:01:00 EST, Height Start Date: 07/13/21 Status: Ordered fluticasone 50 mcg/inh nasal spray See Instructions, USE 1 SPRAY IN EACH NOSTRIL EVERY MORNING, # 16 mL, 3 Refills, 01/29/21 9:11:00 EDT, [facility]/pharmacy #[id number], 30, USE 1 SPRAY IN [...] 2 Refills, Maintenance, 11/02/21 14:30:00 EDT, Ointment, [facility]/pharmacy #[id number], Partial fill upon patient request if the prescription is for a schedule II opioid drug., 1 application Top... Start Date: 11/02/21 Status: Ordered loratadine 10 mg oral tablet 1, tablet, By Mouth, Daily, PRN, # 90 tablet, Refills 1, NEEDED FOR ALLERGIES, Route to PharmacyElectronically, [id number], 184, cm, 10/18/21 13:37:00 EDT, Height Start Date: 10/22/21 Status: Ordered magnesium oxide 400 mg oral tablet 1 tablet = 400 mg, By Mouth, Daily, [facility], 0 Refills, Maintenance, 04/15/21 [...] 11:13:00 EST, 10/28/21 11:13:00 EDT, REC Powder, [facility] 11 Refills, Maintenance, 12/27/21 11:25:00 EDT, Capsule, [facility]/pharmacy #[id number], 1 capsule By Mouth 2 [...] 28 tablet, 0 Refills, Maintenance, [facility], 184, cm, 02/01/21 10:51:00 EDT, Height, 123.27, kg, 06/25/19 13:22:00 EST, Dry Weight Start Date: 02/01/21 Status: Ordered Tylenol Extra Strength 500 mg oral tablet 2 tablet = 1,000 mg, By Mouth, 3 times a day, PRN as needed for pain, # 100 tablet, 5 Refills, Maintenance, 07/26/21 9:43:00 EST, Tablet, [id number], Partial fill upon patient request if the [...] provided increased discomfort related to nerves. 3Seeing [place] neurology and sleep. Given a trial of Tegretol 200 mg upto 2 tablets twice a day andadvised to continue with Lyrica 300 mg twice a day. Had some improvement of the facial pain with this regimen. 4Seeing [place] neurology and asleep. On 09/11/2018 started on [...]
--- OUTSIDE RECORDS SUMMARY | 2023-11-02 08:39 | XMS_ITS | Continuity of Care Document ---
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 Name Role Phone Ivone Oneil MD Primary Care Physician [place] [facility] Date(s): 05/02/22 - 06/01/[address] [address]- Allergies, Adverse Reactions, Alerts Substance Reaction Severity [...] acel(Tdap) 11/25/14 Given 1Result Comment: DILUENT LOT#: [id number] EXP: 11/2022 MFG: FRESENSIUS Medications amitriptyline 100 [...] 1 Refills, Maintenance, 05/13/22 14:40:00 EST, Tablet, [facility]/pharmacy #[id number], Partial fill upon patient [...] Need length 99 months Please send to [facility], 01/21/21 13:20:00 EDT, Supply Start [...] capsule, 0 Refills, Maintenance,03/11/22 9:32:00 EDT, Capsule, [facility]/pharmacy #[id number], Patient reports that he is not allergic [...] Refills, Maintenance, 08/18/21 15:21:00 EST, Tablet, [facility]/pharmacy #[id number], Partial fill upon patient [...] 13:12:00 EST, Route to Pharmacy Electronically, [facility]/pharmacy #[id number], 184, cm, 07/26/21 9:11:00 EST, Height Start Date: 07/17/26 Stop Date: 07/01/29 Status: Ordered cyanocobalamin 1000 mcg oral tablet 1,000 mcg, 1, tablet, By Mouth, Daily, for 90 days, # 90 tablet, Refills 11, Tot. Refills 11, Hard Stop 07/17/26 13:12:00 EST, 08/02/23 13:12:00 EST, Route to Pharmacy Electronically, [facility]/pharmacy #[id number], 184, cm, 01/01/21 10:56:00 EDT, [...] Refills, Maintenance, 10/07/21 20:16:00 EDT, Tablet, [facility]/pharmacy #[id number], Partial fill upon patient request if the [...] 1, NEEDED FOR ALLERGIES, Route to PharmacyElectronically, [facility], 184, cm, 10/18/21 13:37:00 EDT, Height Start Date: 10/22/21 Status: Ordered magnesium oxide 400 mg oral tablet 1 tablet = 400 mg, By Mouth, Daily, Rx'd by Neurology at [facility]/ Dr. Murphy, 0 Refills, Maintenance, 04/15/21 23:30:00 [...] 3 Refills, Maintenance, 09/16/2211:15:00 EDT, Tablet, [facility]/pharmacy #[id number], Partial f... Start Date: 09/15/21 Status: Ordered Nicotine 2 mg gum See Instructions, CHEW 1 PIECE OF GUM EVERY 2 HOURS NEEDED FOR SMOKING CESSATION, # 40 gum, 0 Refills, [facility], 184, cm, 12/27/21 11:50:00 EDT, Height Start Date: 02/01/22 Status: Ordered omega-3 polyunsaturated fatty acids ethyl esters 1000 mg oral capsule 1 capsule, By Mouth, 2 times a day, # 180 capsule, 3 Refills, [facility], 90, TAKE 1 CAPSULE BY MOUTH TWICE [...] Refills, Maintenance, 03/22/22 8:30:00 EDT, [facility], 14, DISSOLVE 17 GRAMS IN WATER & [...] a day, [facility]/ Dr. Murphy, Refills 0, [...] 12:43:00 EDT, Aerosol, Route to Pharmacy Electronically, [id number], [facility]/pharmacy #[id number], 184, cm, 12/27/21 11:50:00 EDT, Height Start Date: 12/27/21 Status: Ordered Tylenol Extra Strength 500 mg oral tablet 2 tablet = 1,000 mg, By Mouth, 3 times a day, PRN as needed for pain, # 100 tablet, 5 Refills, Maintenance, 12/07/21 10:44:00 EDT, Tablet, [facility]/pharmacy #[id number], Partial fill upon patient request if theprescription is for a schedule II opioid drug., 184... Start Date: 12/07/21 Status: Ordered valsartan 320 mg oral tablet 1 tablet, By Mouth, Daily, # 90 tablet, 3 Refills, Maintenance, 03/15/22 14:29:00 EDT, [facility], 183, cm, 02/08/22 6:42:00 EDT, Height, 123.2, [...] provided increased discomfort related to nerves. 3Seeing [place] neurology and sleep. Given a trial of Tegretol 200 mg upto 2 tablets twice a day andadvised to continue with Lyrica 300 mg twice a day. Had some improvement of the facial pain with this regimen. 4Seeing [place] neurology and asleep. On 09/11/2018 started [...] Care Physician Member Role: PCP Address: Address: [address] [place] [address]- Care Team Related Persons Name: JARROD BRADFORD Address: home [address] [place] [address] Name: LOLA BRADFORD Address: home [address] [place] [address] Name: GOLDIE LERMA Address: [place] [address] Name: OLIMPIA LERMA Address: [place] [address] Name: KADE LERMA Address: home [address] [place] [id number] Name: KADE LERMA Address: home [address] [place] [id number]
--- OUTSIDE RECORDS SUMMARY | 2023-11-02 08:39 | XMS_ITS | Continuity of Care Document ---
Author Organization [facility] ter Address [address] [place] [address]- Care Team Providers Care Shank Boner Name Role Phone Terence PRATHER, Azra Primary Care Physician Encounter [facility] Date(s): 03/13/20 - 04/12/[address] [address]- [facility] Attending Physician: Saba Ruiz Admitting Physician: Saba [...] 01/15/20 9:51:00 EDT, Route to Pharmacy Electronically, [facility]/pharmacy #[id number], 184, cm, 01/15/20 9:11:00 EDT, Height, 123.27, kg, 06/25/19 13:22:00 EST, Dry Weight Start Date: 01/15/20 Stop Date: 03/15/20 Status: Ordered aspirin 81 mg oral tablet 1 tablet = 81 mg, By Mouth, Daily, # 90 tablet, 3 Refills, Maintenance, 01/15/20 9:51:00 EDT, Tablet, [facility]/pharmacy #[id number], 184, cm, 01/15/20 [...] 02/07/20 9:49:00 EDT, Route to Pharmacy Electronically, [facility]/pharmacy #[id number], 184, cm, 01/29/20 [...] 08/17/20 13:12:00 EST, Route to Pharmacy Electronically, [facility]/pharmacy #[id number], 184, cm, 02/28/20 [...] 3 Refills, Maintenance, 01/15/20 9:51:00 EDT, Tablet, [facility]/pharmacy #[id number], 184, cm, 01/15/20 9:11:00 EDT, Height, 123.27, kg, 06/25/19 13:22:00 EST, Dry Weight Start Date: 01/15/20 Stop Date: 03/15/20 Status: Ordered fluticasone 50 mcg/inh nasal spray See Instructions, USE 1 SPRAY IN EACH NOSTRIL EVERY MORNING, # 16 mL, 0 Refills, Maintenance, [facility], 30, USE 1 SPRAY IN EACH NOSTRIL [...] provided increased discomfort related to nerves. 3Seeing [place] neurology and sleep. Given a trial of [...]
--- OUTSIDE RECORDS SUMMARY | 2023-11-02 08:39 | XMS_ITS | Continuity of Care Document ---
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 Role Phone Contractor Krystal FERNANDEZ Primary Care Physician [facility] Date[facility]s): 05/04/21 - 06/03/21 [facility] [address] [place] [id number]- Allergies, Adverse Reactions, Alerts Substance Reaction Severity [...] acel(Tdap) 11/25/14 Given 1Result Comment: DILUENT LOT#: [id number] EXP: 11/2022 MFG: FRESENSIUS Medications amitriptyline 100 mg oral tablet 1 tablet = 100 mg, By Mouth, Daily at bedtime, # 30 tablet, 3 Refills, Maintenance, 04/13/21 10:02:00 EDT, Tablet, [facility]/pharmacy [...] 3 Refills, Maintenance, 03/03/21 17:24:00 EDT, Tablet, [facility]/pharmacy #[id number], Partial fill upo... Start Date: 03/03/21 Status: Ordered aspirin 81 mg oral delayed release tablet 81 mg, 1, tablet, By Mouth, Daily, # 90 tablet, Refills 0, Tot. Refills 0, Maintenance, 01/01/21 11:26:00 EDT, [facility] Need length 99 months Please send to [facility], 01/21/21 13:20:00 EDT, Supply Start Date: 01/21/21 Status: Ordered carbidopa-levodopa 25 mg-100 mg oral tablet 1 tablet, By Mouth, 3 times a day, Rx'd by Neurology at [facility] [place]/ Dr. Murphy, # 270 tablet, 0 Refills, Maintenance, 04/15/21 23:30:00 EDT, Tablet, Partial fill upon patient request if the prescription is for a schedule II opioid drug. Start Date: 04/15/21 Status: Ordered chlorthalidone 25 mg oral tablet 1, tablet, By Mouth, Daily, # 30 tablet, Refills 5, Route to Pharmacy Electronically, [facility] STORE [id number], 184, cm, 03/30/21 16:08:00 EDT, Height, 123.27, kg, 06/25/19 13:22:00 EST, Dry Weight Start Date: 04/07/21 Status: Ordered Claritin 10 mg oral tablet 10 mg, 1, tablet, By Mouth, Daily, more sea necesario para alergia, # 30 tablet, Refills 5, Tot. Refills 5, Maintenance, 04/13/21 10:04:00 EDT, Route to Pharmacy Electronically, [facility]/pharmacy #[id number], 184, cm, 04/13/21 9:26:00 EDT, Height, 123.27, kg, 01... Start Date: 04/13/21 Status: Ordered clonazePAM 2 mg oral tablet See Instructions, 1 tablet by mouth only NEEDED for severe panic attack. Dispense: #20 tabs per 30d., # 20 tablet, 0 Refills, Maintenance, 06/01/21 10:59:00 EST, Tablet, [facility]/pharmacy #[id number], [...] 0 Refills, Maintenance, 03/03/21 17:36:00 EDT, Cream, [facility]/pharmacy #[id number], [...] 5 Refills, Maintenance, 06/01/21 11:00:00 EST, Tablet, [facility]/pharmacy #[id number], [...] Mouth, Daily, Rx'd by Neurology at [facility]/ Dr. Murphy, 0 Refills, Maintenance, 04/15/21 [...] 3 Refills, Maintenance, 03/03/21 17:29:00 EDT, Tablet, [facility]/pharmacy #[id number], Partial fill upon p... Start Date: 03/03/21 Status: Ordered nicotine 21 mg/24 hr transdermal film, extended release 1 patch, Topically, Daily, for 6 week(s), Rx in [place], # 42 patch, 1 Refills, Acute 08/16/21 16:13:00 EST, 05/24/21 16:13:00 EST, Patch, [id number], Partial fill upon patient request if theprescription is for a schedule II opioid drug., 1 p... Start Date: 05/24/21 Stop Date: 2/28/22 Status: Ordered omega-3 polyunsaturated fatty acids ethyl [...] 2 Refills, Maintenance, 05/04/21 11:15:00 EST, ECCapsule, [facility]/pharmacy #[id number], 184, cm, 04/22/21 15:18:00 [...] 28 tablet, 0 Refills, Maintenance, [id number], 184, cm, 02/01/21 10:51:00 EDT, Height, 123.27, [...] provided increased discomfort related to nerves. 3Seeing [place] neurology and sleep. Given a trial of Tegretol 200 mg upto 2 tablets twice a day andadvised to continue with Lyrica 300 mg twice a day. Had some improvement of the facial pain with this regimen. 4Seeing [place] neurology and asleep. On 09/11/2018 started on [...]
--- OUTSIDE RECORDS SUMMARY | 2023-11-02 08:39 | XMS_ITS | Continuity of Care Document ---
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 Start Date: 03/03/21 Status: Ordered aspirin 81 mg oral delayed release tablet 81 mg, 1, tablet, By Mouth, Daily, # 90 tablet, Refills 0, Tot. Refills 0, Maintenance, 01/01/21 11:26:00 EDT, Route to Pharmacy Electronically, [facility]/pharmacy #[id number], Partial fill upon patient [...] length 99 months Please send to [facility], 01/21/21 13:20:00 EDT, Supply Start Date: 01/21/21 Status: Ordered carbidopa-levodopa 25 mg-100 mg oral tablet 1 tablet, By Mouth, 3 times a day, [facility] [place]/ Dr. Murphy, # 270 tablet, 0 Refills, Maintenance, 04/15/21 23:30:00 EDT, Tablet, Partial fill upon patient request if the prescription is for a schedule II opioid drug. Start Date: 04/15/21 Status: Ordered chlorthalidone 25 mg oral tablet 1, tablet, By Mouth, Daily, # 30 tablet, Refills 5, Route to Pharmacy Electronically, [facility] STORE [id number], 184, cm, 03/30/21 16:08:00 EDT, Height, 123.27, kg, 06/25/19 13:22:00 EST, Dry Weight Start Date: 04/07/21 Status: Ordered Claritin 10 mg oral tablet 10 mg, 1, tablet, By Mouth, Daily, more sea necesario para alergia, # 30 tablet, Refills 5, Tot. Refills 5, Maintenance, 04/13/21 10:04:00 EDT, Route to Pharmacy Electronically, [facility]/pharmacy #[id number], 184, cm, 04/13/21 9:26:00 EDT, Height, 123.27, kg, 01... Start Date: 04/13/21 Status: Ordered clonazePAM 2 mg oral tablet 1 tablet = 2 mg, By Mouth, Daily, # 20 tablet, 0 Refills, Maintenance, 04/22/21 15:54:00 EDT, [facility]/pharmacy #[id number], Partial fill upon [...] 0 Refills, Maintenance, 03/03/21 17:36:00 EDT, Cream, [facility]/pharmacy #[id number], Partial fill upon patient request if the prescription is for a schedule II opioid drug., 1 application Topically 3 ti... Start Date: 03/03/21 Status: Ordered cyanocobalamin 1000 mcg oral tablet 1,000 mcg, 1, tablet, By Mouth, Daily, # 90 tablet, Refills 11, Tot. Refills 11, Maintenance, 08/02/23 13:12:00 EST, Route to Pharmacy Electronically, [facility]/pharmacy #[id number], 184, cm, 01/01/21 10:56:00 EDT, [...] 5 Refills, Maintenance, 01/11/21 15:23:00 EDT, Tablet, [facility]/pharmacy #[id number], Partial fill upon patient request if the prescription is for a schedule II opioid drug., 184, cm,... Start Date: 01/11/21 Status: Ordered escitalopram 5 mg oral tablet 1 tablet = 5 mg, By Mouth, Daily, This is a decrease in dose, # 14 tablet, 0 Refills, Maintenance, 04/05/21 15:54:00 EDT, Tablet, [facility]/pharmacy #[id number], Partial fill upon patient request if the prescription is for a schedule II opioid drug., 184, cm, ... Start Date: 04/05/21 Stop Date: 04/19/21 Status: Ordered fluticasone 50 mcg/inh nasal spray See Instructions, USE 1 SPRAY IN EACH NOSTRIL EVERY MORNING, # 16 mL, 3 Refills, 01/29/21 9:11:00 EDT, [facility]/pharmacy #[id number], 30, USE 1 SPRAY IN [...] 2 Refills, Maintenance, 02/10/21 13:09:00 EDT, Ointment, [facility]/pharmacy #[id number], Partial fill upon patient request if the prescription is for a schedule II opioid drug., 1 application Top... Start Date: 02/10/21 Status: Ordered magnesium oxide 400 mg oral tablet 1 tablet = 400 mg, By Mouth, Daily, Rx'd by Neurology at [facility] [place]/ Dr. Murphy, 0 Refills, Maintenance, 04/15/21 23:30:00 [...] 3 Refills, Maintenance, 03/03/21 17:29:00 EDT, Tablet, [facility]/pharmacy #[id number], Partial fill upon p... Start Date: 03/03/21 Status: Ordered omega-3 polyunsaturated fatty acids ethyl esters 1000 mg oral capsule 1 capsule = 1,000 mg, By Mouth, 2 times a day, # 60 capsule, 11 Refills, Maintenance, 01/01/21 11:25:00 EDT, Capsule, [facility]/pharmacy #[id number], 1 capsule By Mouth 2 [...] 28 tablet, 0 Refills, Maintenance, [facility], 184, cm, 02/01/21 10:51:00 EDT, Height, 123.27, [...] provided increased discomfort related to nerves. 3Seeing [place] neurology and sleep. Given a trial of Tegretol 200 mg upto 2 tablets twice a day andadvised to continue with Lyrica 300 mg twice a day. Had some improvement of the facial pain with this regimen. 4Seeing [place] neurology and asleep. On 09/11/2018 started on [...]
--- OUTSIDE RECORDS SUMMARY | 2023-11-02 08:39 | XMS_ITS | Continuity of Care Document ---
Author Organization [facility] Address [address] [place] [address]- Care Team Providers Care Actuary Clerk Name Role Phone Terence PRATHER, Azra Primary Care Physician Encounter [facility] Date(s): 09/28/20 - 10/28/20 [facility]/[address] [id number] Allergies, Adverse Reactions, Alerts Substance [...] 01/15/20 9:51:00 EDT, Route to Pharmacy Electronically, [facility]/pharmacy #[id number], 184, cm, 01/15/20 9:11:00 EDT, Height, 123.27, [...] 02/07/20 9:49:00 EDT, Route to Pharmacy Electronically, [facility]/pharmacy #[id number], 184, cm, 01/29/20 14:16:00 [...] Date: 01/15/20 Stop Date: 03/15/20 Status: Ordered fluocinonide 0.05% topical cream See Instructions, 1 application Topically 3 times a day, as needed, for itchy rash. apply a thin film to affected areas, # 30 Gm, 0 Refills, Maintenance, 10/03/20 15:41:00 EDT, Cream, [facility]/pharmacy #[id number], Partial fill upon patient request if the presc... Start Date: 10/03/20 Status: Ordered fluticasone 50 mcg/inh nasal spray See Instructions, USE 1 SPRAY IN EACH NOSTRIL EVERY MORNING, # 16 mL, 0 Refills, Maintenance, [facility] STORE [id number], 30, USE 1 SPRAY IN EACH NOSTRIL [...] 2 Refills, Maintenance, 02/06/20 16:40:00 EDT, ECCapsule, [facility]/pharmacy #[id number], 184, cm, 01/29/20 14:16:00 [...] provided increased discomfort related to nerves. 3Seeing [place] neurology and sleep. Given a trial of Tegretol 200 mg upto 2 tablets twice a day andadvised to continue with Lyrica 300 mg twice a day. Had some improvement of the facial pain with this regimen. 4Seeing [place] neurology and asleep. On 09/11/2018 started on [...]
--- OUTSIDE RECORDS SUMMARY | 2023-11-02 08:39 | XMS_ITS | Continuity of Care Document ---
Author Organization [facility] Address [address] [place] [address]- Care Team Providers Care Supervisor Vat House Name Role Phone Terence PRATHER, Azra Primary Care Physician Encounter [facility] Date(s): 10/03/20 - 10/10/20 [facility] [address] [place] [address]- Encounter Diagnosis Rash(Discharge Diagnosis) - 10/03/20 Attending Physician: Sujey Roman MD Referring Physician: Azra Pratt MD Allergies, [...] 01/15/20 9:51:00 EDT, Route to Pharmacy Electronically, [facility]/pharmacy #[id number], 184, cm, 01/15/20 9:11:00 EDT, Height, 123.27, kg, 06/25/19 13:22:00 EST, Dry Weight Start Date: 01/15/20 Stop Date: 03/15/20 Status: Ordered aspirin 81 mg oral tablet 1 tablet = 81 mg, By Mouth, Daily, # 90 tablet, 3 Refills, Maintenance, 01/15/20 9:51:00 EDT, Tablet, [facility]/pharmacy #[id number], 184, cm, 01/15/20 [...] 02/07/20 9:49:00 EDT, Route to Pharmacy Electronically, [facility]/pharmacy #[id number], 184, cm, 01/29/20 [...] 08/17/20 13:12:00 EST, Route to Pharmacy Electronically, [facility]/pharmacy #[id number], 184, cm, 02/28/20 [...] 3 Refills, Maintenance, 01/15/20 9:51:00 EDT, Tablet, [facility]/pharmacy #[id number], 184, cm, 01/15/20 9:11:00 EDT, Height, 123.27, kg, 06/25/19 13:22:00 EST, Dry Weight Start Date: 01/15/20 Stop Date: 03/15/20 Status: Ordered fluocinonide 0.05% topical cream See Instructions, 1 application Topically 3 times a day, as needed, for itchy rash. apply a thin film to affected areas, # 30 Gm, 0 Refills, Maintenance, 10/03/20 15:41:00 EDT, Cream, [facility]/pharmacy #[id number], Partial fill upon patient request if the presc... Start Date: 10/03/20 Status: Ordered fluticasone 50 mcg/inh nasal spray See Instructions, USE 1 SPRAY IN EACH NOSTRIL EVERY MORNING, # 16 mL, 0 Refills, Maintenance, [facility] STORE [id number], 30, USE 1 SPRAY IN EACH NOSTRIL [...] provided increased discomfort related to nerves. 3Seeing [place] neurology and sleep. Given a trial of [...] Diagnosis Diagnosis Type Effective Dates Health Status Clini anjali Service Informant Rash Discharge Diagnosis 10/03/20 Vital Signs Most recent to oldest [Reference Range]: 1 Height 184 cm (10/03/20 3:08 PM) Oxygen Saturation [94-100 %] 100 % (10/03/20 3:08 PM) Pulse Rate [55-90 bpm] 72 bpm (10/03/20 3:08 PM) Blood Pressure [90-138/55-84 mm Hg] 163/ 88mm Hg *H* (10/03/20 3:08 PM) Temperature [96.8-100.4 DegF] 98.6 DegF (10/03/20 3:08 PM) Mode of Delivery (Oxygen) Room air (10/03/20 3:08 PM) Blood pressure sites Arm, right (10/03/20 3:08 PM) Temperature Route Temporal (10/03/20 3:08 PM) Weight Obtained Via Standing scale (10/03/20 3:08 PM) Dry Weight Obtained Via Standing scale (10/03/20 3:08 PM) Social History Social History Type Response Smoking Status 5-9 cigarettes (betw een 1/4 to 1/2 pack)/day in last 30 days; Other: Quit in May 2019; entered on: 07/18/19 Sex
--- OUTSIDE RECORDS SUMMARY | 2023-11-02 08:40 | XMS_ITS | Continuity of Care Document ---
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 Name Role Phone Contractor Krystal FERNANDEZ Primary Care Physician [phone] Encounter [facility] Date(s): 06/15/21 - 07/15/[address] [address]- Allergies, Adverse Reactions, Alerts Substance Reaction Severity [...] acel(Tdap) 11/25/14 Given 1Result Comment: DILUENT LOT#: [id number] EXP: 11/2022 MFG: FRESENSIUS Medications amitriptyline 100 mg oral tablet 1 tablet = 100 mg, By Mouth, Daily at bedtime, # 30 tablet, 3 Refills, Maintenance, 04/13/21 10:02:00 EDT, Tablet, [facility]/pharmacy #[id number], Partial fill upon [...] 3 Refills, Maintenance, 03/03/21 17:24:00 EDT, Tablet, [facility]/pharmacy #[id number], Partial fill upo... Start Date: 03/03/21 Status: Ordered aspirin 81 mg oral delayed release tablet 81 mg, 1, tablet, By Mouth, Daily, # 90 tablet, Refills 0, Tot. Refills 0, Maintenance, 01/01/21 11:26:00 EDT, Route to Pharmacy Electronically, [facility]/pharmacy #[id number], Partial fill upon [...] Need length 99 months Please send to [facility], 01/21/21 13:20:00 EDT, Supply Start Date: 01/21/21 Status: Ordered carbidopa-levodopa 25 mg-100 mg oral tablet 1 tablet, By Mouth, 3 times a day, Rx'd by Neurology at [facility] [place]/ Dr. Murphy, # 270 tablet, 0 Refills, Maintenance, 04/15/21 23:30:00 EDT, Tablet, Partial fill upon patient request if the prescription is for a schedule II opioid drug. Start Date: 04/15/21 Status: Ordered chlorthalidone 25 mg oral tablet 1, tablet, By Mouth, Daily, # 30 tablet, Refills 5, Route to Pharmacy Electronically, [facility] STORE [id number], 184, cm, 03/30/21 16:08:00 EDT, Height, 123.27, kg, 06/25/19 13:22:00 EST, Dry Weight Start Date: 04/07/21 Status: Ordered Claritin 10 mg oral tablet 10 mg, 1, tablet, By Mouth, Daily, more sea necesario para alergia, # 30 tablet, Refills 5, Tot. Refills 5, Maintenance, 04/13/21 10:04:00 EDT, Route to Pharmacy Electronically, [facility]/pharmacy #[id number], 184, cm, 04/13/21 9:26:00 EDT, Height, 123.27, kg, 01... Start Date: 04/13/21 Status: Ordered clonazePAM 2 mg oral tablet See Instructions, 1 tablet by mouth only NEEDED for severe panic attack. Dispense: #20 tabs per 30d., # 20 tablet, 0 Refills, Maintenance, 07/15/21 14:39:00 EST, Tablet, [facility]/pharmacy #[id number], Partial fill upon [...] 0 Refills, Maintenance, 03/03/21 17:36:00 EDT, Cream, [facility]/pharmacy #[id number], Partial fill upon patient request if the prescription is for a schedule II opioid drug., 1 application Topically 3 ti... Start Date: 03/03/21 Status: Ordered cyanocobalamin 1000 mcg oral tablet 1,000 mcg, 1, tablet, By Mouth, Daily, # 90 tablet, Refills 11, Tot. Refills 11, Maintenance, 08/02/23 13:12:00 EST, Route to Pharmacy Electronically, [facility]/pharmacy #[id number], 184, cm, 01/01/21 [...] 5 Refills, Maintenance, 01/11/21 15:23:00 EDT, Tablet, [facility]/pharmacy #[id number], Partial fill upon patient request if the prescription is for a schedule II opioid drug., 184, cm,... Start Date: 01/11/21 Status: Ordered escitalopram 20 mg oral tablet 1 tablet = 20 mg, By Mouth, Daily, # 30 tablet, 3 Refills, Maintenance, 07/13/21 12:26:00 EST, Tablet, [facility]/pharmacy #[id number], d/c citalopram 10 mg, 184, cm, 06/14/21 11:01:00 EST, Height Start Date: 07/13/21 Status: Ordered fluticasone 50 mcg/inh nasal spray See Instructions, USE 1 SPRAY IN EACH NOSTRIL EVERY MORNING, # 16 mL, 3 Refills, 01/29/21 9:11:00 EDT, [facility]/pharmacy #[id number], 30, USE 1 [...] 2 Refills, Maintenance, 02/10/21 13:09:00 EDT, Ointment, [facility]/pharmacy #[id number], Partial fill upon patient request if the prescription is for a schedule II opioid drug., 1 application Top... Start Date: 02/10/21 Status: Ordered magnesium oxide 400 mg oral tablet 1 tablet = 400 mg, By Mouth, Daily, Rx'd by Neurology at [facility] [place]/ Dr. Murphy, 0 Refills, Maintenance, 04/15/21 23:30:00 [...] 3 Refills, Maintenance, 03/03/21 17:29:00 EDT, Tablet, [facility]/pharmacy #[id number], Partial fill upon p... Start Date: 03/03/21 Status: Ordered nicotine 21 mg/24 hr transdermal film, extended release 1 patch, Topically, Daily, for 6 week(s), Rx in [place], # 42 patch, 1 Refills, Acute 08/16/21 16:13:00 EST, 05/24/21 16:13:00 EST, Patch, [facility]/pharmacy #[id number], Partial fill upon [...] Mouth, Daily, # 90 capsule, 0 Refills, [facility] STORE [id number], 184, cm, 06/14/21 11:01:00 EST, Height, 123.27, [...] 28 tablet, 0 Refills, Maintenance, [facility], 184, cm, 02/01/21 10:51:00 EDT, Height, 123.27, kg, 06/25/19 13:22:00 EST, Dry Weight Start Date: 02/01/21 Status: Ordered Tylenol Extra Strength 500 mg oral tablet 2 tablet = 1,000 mg, By Mouth, 3 times a day, PRN as needed for pain, # 100 tablet, 5 Refills, Maintenance, 04/13/21 10:08:00 EDT, Tablet, [facility]/pharmacy #[id number], Partial fill upon [...] provided increased discomfort related to nerves. 3Seeing [place] neurology and sleep. Given a trial of Tegretol 200 mg upto 2 tablets twice a day andadvised to continue with Lyrica 300 mg twice a day. Had some improvement of the facial pain with this regimen. 4Seeing [place] neurology and asleep. On 09/11/2018 started on [...]
--- OUTSIDE RECORDS SUMMARY | 2023-11-02 08:40 | XMS_ITS | Continuity of Care Document ---
Author Organization [facility] Address [address] [place] [address]- Care Team Providers Care Milling Supervisor Name Role Phone Dayo Castano MD Primary Care Physician [facility] Date[facility]): 08/18/23 - 09/17/[address] [address]- Allergies, Adverse Reactions, Alerts Substance Reaction Severity [...] influenza virus vaccine, inactivated 04/16/15 Give n [id number] 12y+ bivalent booster vax 02/21/23 Given SARS-CoV-2 (COVID-19) mRNA BNT-162b2 vac 1 06/01/21 Given SARS-CoV-2 (COVID-19) mRNA BNT-162b2 vac 11/07/20 Recorded SARS-CoV-2 (COVID-19) mRNA BNT-162b2 vac 10/17/20 Recorded zoster vaccine, inactivated 06/18/19 Recorded zoster vaccine, inactivated 06/17/19 Recorded zoster vaccine, inactivated 11/25/17 Recorded Influenza Vaccine (oldterm) 02/17/17 Recorded pneumococcal 23-valent vaccine 02/16/16 Given tetanus/diphtheria/pertussis, acel(Tdap) 11/25/14 Given 1Result Comment: DILUENT LOT#: [id number] EXP: 11/2022 MFG: FRESENSIUS Medications Albuterol (Eqv-ProAir [...] Mouth, Daily at bedtime, Rx'd by neurology ([facility]), # 30 tablet, 0 Refills, Maintenance, 12/08/22 [...] Need length 99 months Please send to [facility], 01/21/21 13:20:00 EDT, Supply Start Date: 01/21/21 Status: Ordered carbidopa-levodopa 25 mg-100 mg oral tablet 1 tablet, By Mouth, 2 times a day, Rx'd by neurology at [facility], # 60 tablet, 0 [...] 10/06/23 14:26:00 EDT, 08/07/23 14:26:00 EST, Cream, [facility]/pharmacy #[id number], Partial fill [...] Gm, 5 Refills, Maintenance, 07/04/23 8:59:00 EST, [facility]/pharmacy #[id number], 30, APPLY TOPICALLY TO AFFECTED [...] Daily at bedtime, Rx'd by neurology at [facility], 0 Refills, Maintenance, 10/04/22 8:24:00 EDT, Capsule, Partial fill upon patient request if the prescription is for a schedule II opioid drug. Start Date: 10/04/22 Status: Ordered loratadine 10 mg oral tablet 1, tablet, By Mouth, Daily, PRN, # 90 tablet, Refills 3, Tot. Refills 3, NEEDED FOR ALLERGIES, 04/04/23 8:42:00 EDT, Route to Pharmacy Electronically, [facility]/pharmacy #[id number], 183, cm, 04/04/23 8:24:00EDT, Height, 123.2, kg, 02/07/22 12:47:00 EDT, Dry... Start Date: 04/04/23 Status: Ordered Metamucil 3.4 gm/5.2 gm oral powder for reconstitution = 3.4 Gm, By Mouth, 3 times a day, PRN as needed for constipation, # 425 Gm, 11 Refills, Maintenance, 08/07/23 14:34:00 EST, REC Powder, [facility]/pharmacy #[id number], Partial fill upon [...] # 40 gum, 0 Refills, [id number], 184, cm, 12/27/21 11:50:00 EDT, Height Start [...] 8:46:00 EDT, 04/04/23 8:46:00 EDT, [facility]/pharmacy #[id number], 1 capsule By Mouth 2 times a day,x90 days, 183, cm, 04/04/23 8:24:00 EDT, Height, 123.2, kg, 082... Start Date: 04/04/23 Stop Date: 03/29/24 Status: Ordered omeprazole 20 mg oral enteric coated capsule 1 capsule, By Mouth, Daily, # 90 capsule, 3 Refills, Maintenance, 04/04/23 8:46:00 EDT, [facility]/pharmacy #[id number], 183, cm, 04/04/23 8:24:00 EDT, [...] Refills, Maintenance, 04/04/23 8:46:00 EDT, [facility]/pharmacy #[id number], 14,DISSOLVE 17 GRAMS IN WATER & DRINK ONCE A DAY UNTIL BM,... Start Date: 04/04/23 Status: Ordered pregabalin 300 mg oral capsule 1 capsule = 300 mg, By Mouth, 2 times a day, Rx'd by neurology at [facility], # 60 capsule, 0 Refills, Maintenance, 10/04/22 8:24:00 EDT, Capsule, Partial fill upon patient request if the prescription is for a schedule II opioid drug. Start Date: 10/04/22 Status: Ordered primidone 50 mg oral tablet 100 mg, 2, tablet, By Mouth, 2 times a day, rx'd by neurology at [facility], # 120 tablet, Refills 0, Maintenance, 12/08/22 [...] times a day, Rx'd by neurology at [facility] - Alisa Lazaro, # 270 tablet, 0 [...] M51. 26 please send to [facility], 08/08/22 15:41:00 EST, Supply Start [...] 14:39:00 EST, Aerosol, Route to Pharmacy Electronically, [id number], [facility]/pharmacy #[id number], 183, cm, 08/07/23 14:26:00 EST, [...] Maintenance, 04/04/23 8:43:00 EDT, Tablet, [facility]/pharmacy #[id number], Partial fill upon patient request if theprescription is for a schedule II opioid drug., 183... Start Date: 04/04/23 Status: Ordered valsartan 320 mg oral tablet 1 tablet, By Mouth, Daily, blood pressure, # 90 tablet, 3 Refills, Maintenance, 04/04/23 8:46:00 EDT, [facility]/pharmacy #[id number], 183, cm, 04/04/23 8:24:00 EDT, Height, 123.2, kg, 02/07/22 12:47:00 EDT, Dry Weight Start Date: 04/04/23 Status: Ordered Vitamin B-12 1000 mcg oral tablet 1, tablet, By Mouth, Daily, # 90 tablet, Refills 1, Maintenance, 08/28/23 13:12:00 EDT, Route to Pharmacy Electronically, [facility] 6[facility], 183, cm, 08/22/23 13:24:00 EST, Height, 123.2, kg, 02/07/22 12:47:00 EDT, Dry Weight Start Date: 08/28/23 Status: Ordered Xopenex HFA 45 mcg/inh inhalation aerosol 2 puffs, Inhalation, Every 4 hours, PRN Wheezing/Shortness of Breath, replaces Ventolin due to reaction, # 1 each, 1 Refills, Maintenance, 02/15/23 11:23:00 EDT, Aerosol, [id number], Partial fill upon patient request if the [...] provided increased discomfort related to nerves. 3Seeing [place] neurology and sleep. Given a trial of [...] Care Team Personnel Name: Casandra Parker Position: [facility] Office Staff Member Role: Lifetime Consulting Physician Name: Dayo Castano MD Position: [facility] Physician - Primary Care Member Role: PCP Address: Address: [address] [place] [address]- [place] Care Team Related Persons Name: JOSIAS BRADFORDLinda Address: home [address] [place] [address] Name: MURRAYYAHAIRALOLA Roberts Address: home [address] [place] [address] Name: GOLDIE LERMA Address: [place] [address] Name: CASANDRA LERMA Address: [place] [address] Name: KADE LERMA Address: home [address] [place] [id number] Name: KADE LERMA Address: home [address] [place] [id number]
--- OUTSIDE RECORDS SUMMARY | 2023-11-02 08:40 | XMS_ITS | Continuity of Care Document ---
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 Start Date: 03/03/21 Status: Ordered aspirin 81 mg oral delayed release tablet 81 mg, 1, tablet, By Mouth, Daily, # 90 tablet, Refills 0, Tot. Refills 0, Maintenance, 01/01/21 11:26:00 EDT, Route to Pharmacy Electronically, [facility]/pharmacy #[id number], Partial fill upon patient request [...] 99 months Please send to [facility], 01/21/21 13:20:00 EDT, Supply Start Date: 01/21/21 Status: Ordered carbidopa-levodopa 25 mg-100 mg oral tablet 1 tablet, By Mouth, 3 times a day, Rx'd by Neurology at [facility] Alisa Ramona/ Dr. Murphy, # 270 tablet, 0 Refills, Maintenance, 04/15/21 23:30:00 EDT, Tablet, Partial fill upon patient request if the prescription is for a schedule II opioid drug. Start Date: 04/15/21 Status: Ordered chlorthalidone 25 mg oral tablet 1, tablet, By Mouth, Daily, # 30 tablet, Refills 5, Route to Pharmacy Electronically, [facility] STORE 92798, 184, cm, 03/30/21 16:08:00 EDT, Height, 123.27, kg, 06/25/19 13:22:00 EST, Dry Weight Start Date: 04/07/21 Status: Ordered Claritin 10 mg oral tablet 10 mg, 1, tablet, By Mouth, Daily, more sea necesario para alergia, # 30 tablet, Refills 5, Tot. Refills 5, Maintenance, 04/13/21 10:04:00 EDT, Route to Pharmacy Electronically, [facility]/pharmacy #[id number], 184, cm, 04/13/21 9:26:00 EDT, Height, 123.27, kg, 01... Start Date: 04/13/21 Status: Ordered clonazePAM 2 mg oral tablet 1 tablet = 2 mg, By Mouth, Daily, # 20 tablet, 0 Refills, Maintenance, 04/22/21 15:54:00 EDT, [facility]/pharmacy #[id number], Partial fill upon patient request [...] 03/03/21 17:36:00 EDT, Cream, [facility]/pharmacy #[id number], Partial fill upon patient request if the prescription is for a schedule II opioid drug., 1 application Topically 3 ti... Start Date: 03/03/21 Status: Ordered cyanocobalamin 1000 mcg oral tablet 1,000 mcg, 1, tablet, By Mouth, Daily, # 90 tablet, Refills 11, Tot. Refills 11, Maintenance, 08/02/23 13:12:00 EST, Route to Pharmacy Electronically, [facility]/pharmacy #[id number], 184, cm, 01/01/21 10:56:00 EDT, [...] 01/11/21 15:23:00 EDT, Tablet, [facility]/pharmacy #[id number], Partial fill upon patient request if the prescription is for a schedule II opioid drug., 184, cm,... Start Date: 01/11/21 Status: Ordered escitalopram 5 mg oral tablet 1 tablet = 5 mg, By Mouth, Daily, This is a decrease in dose, # 14 tablet, 0 Refills, Maintenance, 04/05/21 15:54:00 EDT, Tablet, [facility]/pharmacy #[id number], Partial fill upon patient request if the prescription is for a schedule II opioid drug., 184, cm, ... Start Date: 04/05/21 Stop Date: 04/19/21 Status: Ordered fluticasone 50 mcg/inh nasal spray See Instructions, USE 1 SPRAY IN EACH NOSTRIL EVERY MORNING, # 16 mL, 3 Refills, 01/29/21 9:11:00 EDT, [facility]/pharmacy #[id number], 30, USE 1 SPRAY IN [...] 02/10/21 13:09:00 EDT, Ointment, [facility]/pharmacy #[id number], Partial fill upon patient request if the prescription is for a schedule II opioid drug., 1 application Top... Start Date: 02/10/21 Status: Ordered magnesium oxide 400 mg oral tablet 1 tablet = 400 mg, By Mouth, Daily, Rx'd by Neurology at [facility] Alisa Ramona/ Dr. Murphy, 0 Refills, Maintenance, 04/15/21 23:30:00 [...] 03/03/21 17:29:00 EDT, Tablet, [facility]/pharmacy #[id number], Partial fill upon p... Start Date: 03/03/21 Status: Ordered omega-3 polyunsaturated fatty acids ethyl esters 1000 mg oral capsule 1 capsule = 1,000 mg, By Mouth, 2 times a day, # 60 capsule, 11 Refills, Maintenance, 01/01/21 11:25:00 EDT, Capsule, [facility]/pharmacy #[id number], 1 capsule By Mouth 2 [...] 28 tablet, 0 Refills, Maintenance, [facility], 184, cm, 02/01/21 10:51:00 EDT, Height, 123.27, [...] provided increased discomfort related to nerves. 3Seeing [place] neurology and sleep. Given a trial of Tegretol 200 mg upto 2 tablets twice a day andadvised to continue with Lyrica 300 mg twice a day. Had some improvement of the facial pain with this regimen. 4Seeing [place] neurology and asleep. On 09/11/2018 started on [...]
--- OUTSIDE RECORDS SUMMARY | 2023-11-02 08:40 | XMS_ITS | Continuity of Care Document ---
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 Role Phone Eyad PRATHER, Dayo Primary Care Physician [facility]counter [facility] Date(s): 04/27/23 - 05/27/[address] [address]- Allergies, Adverse Reactions, Alerts Substance Reaction Severity [...] influenza virus vaccine, inactivated 04/16/15 Give n [id number] 12y+ bivalent booster vax 02/21/23 Given SARS-CoV-2 (COVID-19) mRNA BNT-162b2 vac 1 06/01/21 Given SARS-CoV-2 (COVID-19) mRNA BNT-162b2 vac 11/07/20 Recorded SARS-CoV-2 (COVID-19) mRNA BNT-162b2 vac 10/17/20 Recorded zoster vaccine, inactivated 06/18/19 Recorded zoster vaccine, inactivated 06/17/19 Recorded zoster vaccine, inactivated 11/25/17 Recorded Influenza Vaccine (oldterm) 02/17/17 Recorded pneumococcal 23-valent vaccine 02/16/16 Given tetanus/diphtheria/pertussis, acel(Tdap) 11/25/14 Given 1Result Comment: DILUENT LOT#: [id number] EXP: 11/2022 MFG: FRESENSIUS Medications Albuterol (Eqv-ProAir [...] Mouth, Daily at bedtime, Rx'd by neurology ([facility]), # 30 tablet, 0 Refills, Maintenance, [...] Refills, Maintenance, 04/04/23 8:44:00 EDT, Tablet, [id number], Partial fill upon patient request if the [...] Need length 99 months Please send to [facility], 01/21/21 13:20:00 EDT, Supply Start Date: [...] 04/04/23 8:45:00 EDT, [facility]acy Electronically, [facility] [...] 04/04/23 8:46:00 EDT, Route to Pharmacy Electronically, [facility]/pharmacy #[id number], 183, cm, 04/04/23 [...] Gm, 5 Refills, Maintenance, 01/26/23 9:21:00 EDT, [facility]/pharmacy #[id number], 30, APPLY TOPICALLY TO AFFECTED ARE TWICEA DAY NEEDED FOR PAIN, 183, cm, 01/26/23 9:04:00... Start Date: 01/26/23 Status: Ordered diclofenac sodium 75 mg oral delayed release tablet 1 tablet = 75 mg, By Mouth, 2 times a day, PRN Pain , Severe, STOP DICLOFENAC GEL, # 60 tablet, 0 Refills, Maintenance, 05/19/23 12:59:00 EST, EC Tablet, [facility]/pharmacy #[id number], Partial [...] 0 Refills, Maintenance, 05/05/23 9:15:00 EST, Tablet, [facility]/pharmacy #[id number], [...] 04/04/23 8:42:00 EDT, Route to Pharmacy Electronically, [facility]/pharmacy #[id number], 183, cm, 04/04/23 8:24:00EDT, Height, 123.2, kg, 02/07/22 12:47:00 EDT, Dry... Start Date: 04/04/23 Status: Ordered Metamucil 3.4 gm/5.2 gm oral powder for reconstitution = 3.4 Gm, By Mouth, 3 times a day, PRN as needed for constipation, # 425 Gm, 11 Refills, Maintenance, 09/12/22 20:51:00 EDT, REC Powder, [facility]/pharmacy #[id number], Partial fill [...] SMOKING CESSATION, # 40 gum, 0 Refills, [facility] STORE 0[facility]85, 184, cm, 12/27/21 11:50:00 EDT, Height Start [...] Stop 03/29/24 8:46:00 EDT, 04/04/23 8:46:00 EDT, [facility]/pharmacy #[id number], 1 capsule [...] Gm, 1 Refills, Maintenance, 04/04/23 8:46:00 EDT, [facility]/pharmacy #[id number], 14,DISSOLVE [...] times a day, rx'd by neurology at [facility], # 120 tablet, Refills 0, Maintenance, [...] neurology at [facility], # 270 tablet, 0 Refills, [...] Maintenance, DX: M51. 26 please send to [facility], 08/08/22 15:41:00 EST, Supply Start Date: 08/08/22 Status: Ordered Symbicort 160mcg/4.5mcg Inhaler 2, puffs, Inhalation, 2 times a day, # 6 Gm, Refills 11, Tot. Refills 11, Maintenance, 04/04/23 8:44:00 EDT, Aerosol, Route to Pharmacy Electronically, [id number], [facility]/pharmacy #[id number], 183, cm, 04/04/23 [...] 11 Refills, Maintenance, 04/04/23 8:43:00 EDT, Tablet, [facility]/pharmacy #[id number], Partial fill upon patient request if theprescription is for a schedule II opioid drug., 183... Start Date: 04/04/23 Status: Ordered valsartan 320 mg oral tablet 1 tablet, By Mouth, Daily, blood pressure, # 90 tablet, 3 Refills, Maintenance, 04/04/23 8:46:00 EDT, [facility]/pharmacy #[id number], 183, cm, 04/04/23 [...] provided increased discomfort related to nerves. 3Seeing [place] neurology and sleep. Given a trial of [...] Primary Care Member Role: PCP Address: Address: [address] [place] [address]- Care Team Related Persons Name: JARROD BRADFORD Address: home [address] [place] [address] Name: LOLA BRADFORD Address: home [address] [place] [address] Name: GOLDIE LERMA Address: [place] [address] Name: OLIMPIA LERMA Address: [place] [address] Name: KADE LERMA Address: home [address] [place] [address] Name: KADE LERMA Address: home [address] [place] [address]
--- OUTSIDE RECORDS SUMMARY | 2023-11-02 08:40 | XMS_ITS | Continuity of Care Document ---
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 Role Phone Ivone Oneil MD Primary Care Physician [phone] [facility]counter [facility] Date(s): 03/10/22 - 04/09/[address] [address]- Allergies, Adverse Reactions, Alerts Substance Reaction Severity [...] acel(Tdap) 11/25/14 Given 1Result Comment: DILUENT LOT#: [id number] EXP: 11/2022 MFG: FRESENSIUS Medications amitriptyline 100 [...] Need length 99 months Please send to [facility], 01/21/21 13:20:00 EDT, Supply Start Date: 01/21/21 [...] capsule, 0 Refills, Maintenance,03/11/22 9:32:00 EDT, Capsule, [facility] #[id number], Patient reports that he is not allergic [...] 07/17/26 13:12:00 EST, [id number] 184, cm, 07/26/21 9:11:00 EST, [...] Refills, Maintenance, 10/07/21 20:16:00 EDT, Tablet, [facility]/pharm[facility] #2709, Partial fill upon patient request if the [...] NEEDED FOR ALLERGIES, Route to PharmacyElectronically, [facility], 184, cm, 10/18/21 13:37:00 EDT, Height Start Date: 10/22/21 Status: Ordered magnesium oxide 400 mg oral tablet 1 tablet = 400 mg, By Mouth, Daily, Rx'd by Neurology at [facility] Alisa Ragland/ Dr. Murphy, 0 Refills, Maintenance, 04/15/21 23:30:00 [...] EST, 10/28/21 11:13:00 EDT, REC Powder, [facility] #[id number], Partial fill upon patient [...] # 40 gum, 0 Refills, [facility], 184, cm, 12/27/21 11:50:00 EDT, Height Start Date: 02/01/22 Status: Ordered omega-3 polyunsaturated fatty acids ethyl esters 1000 mg oral capsule 1 capsule, By Mouth, 2 times a day, # 180 capsule, 3 Refills, [facility], 90, TAKE 1 CAPSULE BY MOUTH TWICE A DAY, 183, cm, 02/08/22 6:42:00 EDT, Height, 123.2, kg, 02/07/22 12:47:00 EDT, Dry Weight Start Date: 02/09/22 Status: Ordered omeprazole 20 mg oral enteric coated capsule 1 capsule, By Mouth, Daily, # 90 capsule, 0 Refills, Maintenance, 02/14/22 21:23:00 EDT, [facility], 183, cm, 02/08/22 6:42:00 EDT, Height, 123.2, [...] Refills, Maintenance, 03/22/22 8:30:00 EDT, [facility], 14, DISSOLVE 17 GRAMS IN WATER & DRINK ONCE A DAY UNTIL BM, IF... Start Date: 03/22/22 Status: Ordered pregabalin 300 mg oral capsule 1 capsule = 300 mg, By Mouth, 2 times a day, PRN pain, one tab twice daily prn pain, # 60 capsule, 0 Refills, Maintenance, 06/29/21 15:41:00 EST, Capsule, [facility] #2362, Partial fill upon patient request if the prescription is for a schedule II o... Start Date: 06/29/21 Stop Date: 07/29/21 Status: Ordered primidone 50 mg oral tablet 100 mg, 2, tablet, By Mouth, 3 times a day, [facility] Dr. Murphy, Refills 0, Maintenance, [...] 12:43:00 EDT, Aerosol, Route to Pharmacy Electronically, [id number], [facility] #[id number], 184, cm, 12/27/21 11:50:00 EDT, Height Start Date: 12/27/21 Status: Ordered Tylenol Extra Strength 500 mg oral tablet 2 tablet = 1,000 mg, By Mouth, 3 times a day, PRN as needed for pain, # 100 tablet, 5 Refills, Maintenance, 12/07/21 10:44:00 EDT, Tablet, [facility]/pharm[facility] #6281, Partial fill upon patient request if theprescription is for a schedule II opioid drug., 184... Start Date: 12/07/21 Status: Ordered valsartan 320 mg oral tablet 1 tablet, By Mouth, Daily, # 90 tablet, 3 Refills, Maintenance, 03/15/22 14:29:00 EDT, [facility], 183, cm, 02/08/22 6:42:00 EDT, Height, 123.2, [...] provided increased discomfort related to nerves. 3Seeing [place] neurology and sleep. Given a trial of Tegretol 200 mg upto 2 tablets twice a day andadvised to continue with Lyrica 300 mg twice a day. Had some improvement of the facial pain with this regimen. 4Seeing [place] neurology and asleep. On 09/11/2018 started on [...] Personnel Name: Ivone Oneil MD Address: Address: [address] [place] [address]
--- OUTSIDE RECORDS SUMMARY | 2023-11-02 08:40 | XMS_ITS | Continuity of Care Document ---
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/pharmacy #[id number], 184, cm, 01/29/20 14:16:00 [...] [facility]/pharmacy #[id number], 184, cm, 02/28/20 15:58:00 [...] 16 mL, 0 Refills, Maintenance, [facility] [address], 30, USE 1 SPRAY IN EACH NOSTRIL [...] 2 Refills, Maintenance, 01/27/20 10:39:00 EDT, Capsule, [facility]/pharmacy #[id number], 184, cm, 01/15/20 9:52:00 EDT, Height, 123.27, kg, 06/25/19 13:22:00 EST, Dry Weight Start Date: 01/27/20 Stop Date: 07/25/20 Status: Ordered metFORMIN 500 mg oral tablet 1 tablet = 500 mg, By Mouth, Daily, with meals, # 90 tablet, 11 Refills, Maintenance, 03/02/20 9:56:00 EDT, Tablet, [facility]/pharmacy #[id number], 184, cm, 02/28/20 15:58:00 EDT, Height, 123.27, kg, 06/25/19 13:22:00 EST, Dry Weight Start Date: 03/02/20 Status: Ordered omeprazole 20 mg oral enteric coated capsule 1 capsule = 20 mg, By Mouth, Daily, # 30 capsule, 2 Refills, Maintenance, 02/06/20 16:40:00 EDT, ECCapsule, [facility]/pharmacy #[id number], 184, cm, 01/29/20 14:16:00 [...] provided increased discomfort related to nerves. 3Seeing [place] neurology and sleep. Given a trial of Tegretol 200 mg upto 2 tablets twice a day andadvised to continue with Lyrica 300 mg twice a day. Had some improvement of the facial pain with this regimen. 4Seeing [place] neurology and asleep. On 09/11/2018 started on [...]
--- OUTSIDE RECORDS SUMMARY | 2023-11-02 08:40 | XMS_ITS | Continuity of Care Document ---
Author Organization [facility] Address [address] [place] [address]- Care Team Providers Care Unix Administrator Name Role Phone Ivone Oneil MD Primary Care Physician [phone] Encounter [facility] Date(s): 02/14/22 - 03/16/[address] [address]- Allergies, Adverse Reactions, Alerts Substance Reaction Severity [...] acel(Tdap) 11/25/14 Given 1Result Comment: DILUENT LOT#: [id number] EXP: 11/2022 MFG: FRESENSIUS Medications amitriptyline 100 [...] Need length 99 months Please send to [facility] [employer] [facility], 01/21/21 13:20:00 EDT, Supply Start Date: [...] capsule, 0 Refills, Maintenance,03/11/22 9:32:00 EDT, Capsule, [facility]/pharmacy #[id number], Patient reports that he is not allergic [...] [id number] 184, cm, 07/26/21 9:11:00 EST, Height [...] EDT, Tablet, [facility]/pharmacy #[id number], Partial fill upon patient request if the [...] PharmacyElectronically, [facility] STORE [id number], 184, cm, 10/18/21 13:37:00 EDT, Height Start Date: 10/22/21 Status: Ordered magnesium oxide 400 mg oral tablet 1 tablet = 400 mg, By Mouth, Daily, Rx'd by Neurology at [facility]/ Dr. Murphy, 0 Refills, Maintenance, 04/15/21 23:30:00 [...] SMOKING CESSATION, # 40 gum, 0 Refills, [facility] STORE 11944, 184, cm, 12/27/21 11:50:00 EDT, Height Start Date: 02/01/22 Status: Ordered omega-3 polyunsaturated fatty acids ethyl esters 1000 mg oral capsule 1 capsule, By Mouth, 2 times a day, # 180 capsule, 3 Refills, [facility], 90, TAKE 1 CAPSULE BY MOUTH TWICE A DAY, 183, cm, 02/08/22 6:42:00 EDT, Height, 123.2, kg, 02/07/22 12:47:00 EDT, Dry Weight Start Date: 02/09/22 Status: Ordered omeprazole 20 mg oral enteric coated capsule 1 capsule, By Mouth, Daily, # 90 capsule, 0 Refills, Maintenance, 02/14/22 21:23:00 EDT, [facility], 183, cm, 02/08/22 6:42:00 EDT, Height, 123.2, [...] EST, Capsule, [facility]/pharmacy #[id number], Partial fill upon patient request if the prescription is for a schedule II o... Start Date: 06/29/21 Stop Date: 07/29/21 Status: Ordered primidone 50 mg oral tablet 100 mg, 2, tablet, By Mouth, 3 times a day, Rx'd by Neurology at [facility]/ Dr. Murphy, Refills 0, Maintenance, 03/07/19 8:44:30 [...] 12:43:00 EDT, Aerosol, Route to Pharmacy Electronically, [id number], [facility]/pharmacy #[id number], 184, cm, 12/27/21 11:50:00 EDT, Height Start Date: 12/27/21 Status: Ordered Tylenol Extra Strength 500 mg oral tablet 2 tablet = 1,000 mg, By Mouth, 3 times a day, PRN as needed for pain, # 100 tablet, 5 Refills, Maintenance, 12/07/21 10:44:00 EDT, Tablet, [facility]/pharmacy #[id number], Partial fill upon patient request if theprescription is for a schedule II opioid drug., 184... Start Date: 12/07/21 Status: Ordered valsartan 320 mg oral tablet 1 tablet, By Mouth, Daily, # 90 tablet, 3 Refills, Maintenance, 03/15/22 14:29:00 EDT, [facility], 183, cm, 02/08/22 6:42:00 EDT, Height, 123.2, [...] provided increased discomfort related to nerves. 3Seeing [place] neurology and sleep. Given a trial of Tegretol 200 mg upto 2 tablets twice a day andadvised to continue with Lyrica 300 mg twice a day. Had some improvement of the facial pain with this regimen. 4Seeing [place] [facility] and asleep. On 09/11/2018 started on [...] Personnel Name: Ivone Oneil MD Address: Address: [address] [place] [address]
--- OUTSIDE RECORDS SUMMARY | 2023-11-02 08:40 | XMS_ITS | Continuity of Care Document ---
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 Role Phone Terence PRATHER, Azra Primary Care Physician Encounter [facility] Date(s): 08/07/20 - 09/06/[address] [address] Attending Physician: AdmtrCristian Admitting Physician: AdmtrCristian Referring Physician: Admtr, Ar8 [...] 01/15/20 9:51:00 EDT, Route to Pharmacy Electronically, [facility]/pharmacy #[id number], 184, cm, 01/15/20 9:11:00 EDT, Height, 123.27, kg, 06/25/19 13:22:00 EST, Dry Weight Start Date: 01/15/20 Stop Date: 03/15/20 Status: Ordered aspirin 81 mg oral tablet 1 tablet = 81 mg, By Mouth, Daily, # 90 tablet, 3 Refills, Maintenance, 01/15/20 9:51:00 EDT, Tablet, [facility]/pharmacy #[id number], 184, cm, 01/15/20 9:11:00 EDT, [...] 02/07/20 9:49:00 EDT, Route to Pharmacy Electronically, [facility]/pharmacy #[id number], 184, cm, 01/29/20 14:16:00 EDT, [...] 08/17/20 13:12:00 EST, Route to Pharmacy Electronically, [facility]/pharmacy #[id number], 184, cm, 02/28/20 15:58:00 EDT, [...] 3 Refills, Maintenance, 01/15/20 9:51:00 EDT, Tablet, [facility]/pharmacy #[id number], 184, cm, 01/15/20 9:11:00 EDT, Height, 123.27, kg, 06/25/19 13:22:00 EST, Dry Weight Start Date: 01/15/20 Stop Date: 03/15/20 Status: Ordered fluticasone 50 mcg/inh nasal spray See Instructions, USE 1 SPRAY IN EACH NOSTRIL EVERY MORNING, # 16 mL, 0 Refills, Maintenance, [facility] STORE 89001, 30, USE 1 SPRAY IN EACH NOSTRIL [...] 2 Refills, Maintenance, 01/27/20 10:39:00 EDT, Capsule, [facility]/pharmacy #[id number], 184, cm, 01/15/20 9:52:00 EDT, Height, 123.27, kg, 06/25/19 13:22:00 EST, Dry Weight Start Date: 01/27/20 Stop Date: 07/25/20 Status: Ordered metFORMIN 500 mg oral tablet 1 tablet = 500 mg, By Mouth, Daily, with meals, # 90 tablet, 11 Refills, Maintenance, 03/02/20 9:56:00 EDT, Tablet, [facility]/pharmacy #[id number], 184, cm, 02/28/20 15:58:00 EDT, Height, 123.27, kg, 06/25/19 13:22:00 EST, Dry Weight Start Date: 03/02/20 Status: Ordered omeprazole 20 mg oral enteric coated capsule 1 capsule = 20 mg, By Mouth, Daily, # 30 capsule, 2 Refills, Maintenance, 02/06/20 16:40:00 EDT, ECCapsule, [facility]/pharmacy #[id number], 184, cm, 01/29/20 14:16:00 EDT, [...] provided increased discomfort related to nerves. 3Seeing [place] [facility]y and sleep. Given a trial of Tegretol 200 mg upto 2 tablets twice a day andadvised to continue with Lyrica 300 mg twice a day. Had some improvement of the facial pain with this regimen. 4Seeing [place] [facility] and asleep. On 09/11/2018 started on [...]
--- OUTSIDE RECORDS SUMMARY | 2023-11-02 08:40 | XMS_ITS | Continuity of Care Document ---
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 Name Role Phone Contractor Krystal FERNANDEZ Primary Care Physician [phone] Encounter [facility] Date(s): 01/08/21 - 02/07/21 [facility] Allergies, Adverse Reactions, Alerts Substance Reaction Severity [...] Pharmacy Electronically, [facility]/pharmacy #[id number], 184, cm, 10/30/20 14:15:00 EDT, Height, 123.27, kg, 06/25/19 13:22:00 EST, Dry Weight Start Date: 10/30/20 Status: Ordered aspirin 81 mg oral delayed release tablet 81 mg, 1, tablet, By Mouth, Daily, # 90 tablet, Refills 0, Tot. Refills 0, Maintenance, 01/01/21 11:26:00 EDT, Route to Pharmacy Electronically, [facility]/pharmacy #[id number], Partial fill upon patient [...] Need length 99 months Please send to [facility], 01/21/21 13:20:00 EDT, Supply Start Date: 01/21/21 Status: Ordered Claritin 10 mg oral tablet 10 mg, 1, tablet, By Mouth, Daily, # 30 tablet, Refills 3, Tot. Refills 3, Maintenance, 01/29/21 9:13:00 EDT, Route to Pharmacy Electronically, [facility]/pharmacy #[id number], 184, cm, 01/29/21 9:06:00 [id number], 184, cm, 01/01/21 10:56:00 [...] Maintenance, 01/01/21 11:24:00 EDT, Tablet, [facility]/pharmacy #[id number], 184, cm, 01/01/21 10:56:00 EDT, Height, 123.27, kg, 06/25/19 13:22:00 EST, Dry Weight Start Date: 01/01/21 Status: Ordered docusate sodium 100 mg oral tablet 1 tablet = 100 mg, By Mouth, 2 times a day, PRN for constipation, # 60 tablet, 5 Refills, Maintenance, 01/11/21 15:23:00 EDT, Tablet, [facility]/pharmacy #[id number], Partial fill upon patient request if the prescription is for a schedule II opioid drug., 184, cm,... Start Date: 01/11/21 Status: Ordered fluticasone 50 mcg/inh nasal spray See Instructions, USE 1 SPRAY IN EACH NOSTRIL EVERY MORNING, # 16 mL, 3 Refills, 01/29/21 9:11:00 EDT, [facility]/pharmacy #[id number], 30, USE 1 SPRAY [...] Refills, Maintenance, 02/01/21 11:12:00 EDT, Ointment, [facility]/pharmacy #[id number], Partial fill upon patient request if the prescription is for a schedule II opioid drug., 1 application Top... Start Date: 02/01/21 Status: Ordered metFORMIN 500 mg oral tablet 1 tablet = 500 mg, By Mouth, Daily, with meals, # 90 tablet, 11 Refills, Maintenance, 01/01/21 11:24:00 EDT, Tablet, [facility]/pharmacy #[id number], 184, cm, 01/01/21 10:56:00 EDT, Height, 123.27, kg, 06/25/19 13:22:00 EST, Dry Weight Start Date: 01/01/21 Status: Ordered omega-3 polyunsaturated fatty acids ethyl esters 1000 mg oral capsule 1 capsule = 1,000 mg, By Mouth, 2 times a day, # 60 capsule, 11 Refills, Maintenance, 01/01/21 11:25:00 EDT, Capsule, [facility]/pharmacy #[id number], 1 capsule By Mouth [...] 28 tablet, 0 Refills, Maintenance, [facility], 184, cm, 02/01/21 10:51:00 EDT, Height, 123.27, [...] provided increased discomfort related to nerves. 3Seeing [place] neurology and sleep. Given a trial of Tegretol 200 mg upto 2 tablets twice a day andadvised to continue with Lyrica 300 mg twice a day. Had some improvement of the facial pain with this regimen. 4Seeing [place] [facility] and asleep. On 09/11/2018 started on [...]
--- OUTSIDE RECORDS SUMMARY | 2023-11-02 08:40 | XMS_ITS | Continuity of Care Document ---
Author Organization [facility] Address [address] [place] [address]- Care Team Providers Care Gold Leaf Gilder Name Role Phone Dayo Castano MD Primary Care Physician [phone] Encounter [facility] [id number] Date(s): 09/07/23 - 10/07/[address] [address]- Allergies, Adverse Reactions, Alerts Substance Reaction Severity [...] influenza virus vaccine, inactivated 04/16/15 Give n [id number] 12y+ bivalent booster vax 02/21/23 Given SARS-CoV-2 (COVID-19) mRNA BNT-162b2 vac 1 06/01/21 Given SARS-CoV-2 (COVID-19) mRNA BNT-162b2 vac 11/07/20 Recorded SARS-CoV-2 (COVID-19) mRNA BNT-162b2 vac 10/17/20 Recorded zoster vaccine, inactivated 06/18/19 Recorded zoster vaccine, inactivated 06/17/19 Recorded zoster vaccine, inactivated 11/25/17 Recorded Influenza Vaccine (oldterm) 02/17/17 Recorded pneumococcal 23-valent vaccine 02/16/16 Given tetanus/diphtheria/pertussis, acel(Tdap) 11/25/14 Given 1Result Comment: DILUENT LOT#: [id number] EXP: 11/2022 MFG: FRESENSIUS Medications Albuterol (Eqv-ProAir [...] Daily at bedtime, Rx'd by neurology ([facility]), # 30 tablet, 0 Refills, Maintenance, [...] Need length 99 months Please send to [facility], 01/21/21 13:20:00 EDT, Supply Start Date: 01/21/21 Status: Ordered carbidopa-levodopa 25 mg-100 mg oral tablet 1 tablet, By Mouth, 2 times a day, Rx'd by neurology at [facility], # 60 tablet, 0 Refills, Maintenance, [...] Route to Pharmacy Electronically, [facility]/pharmacy #[id number], Partial fill upon patient request if the [...] EDT, Supply Start Date: 01/27/21 Status: Ordered [facility] Advanced Healing Ointment 41% [facility] Advanced Healing Ointment 41%, See Instructions, # [...] Gm, 5 Refills, Maintenance, 07/04/23 8:59:00 EST, [facility]/pharmacy #[id number], 30, APPLY TOPICALLY [...] Daily at bedtime, Rx'd by neurology at [facility], 0 Refills, Maintenance, 10/04/22 8:24:00 EDT, [...] Refills, Maintenance, 08/07/23 14:34:00 EST, REC Powder, [facility]/pharmacy #2901, Partial fill upon patient request if the prescription is for a schedule II opioid drug., 183,... Start Date: 08/07/23 Status: Ordered metFORMIN 500 mg oral tablet 2 tablet, By Mouth, 2 times a day, FOR DIABETES., # 360 tablet, 3 Refills, Maintenance, 09/25/23 15:02:00 EDT, [facility] STORE 32415, 183, cm, 08/22/23 13:24:00 EST, Height, 123.2, [...] gum, 0 Refills, [facility] STORE 36053, 184, cm, 12/27/21 11:50:00 EDT, Height Start [...] times a day, Rx'd by neurology at [facility], # 60 capsule, 0 Refills, Maintenance, 10/04/22 8:24:00 EDT, Capsule, Partial fill upon patient request if the prescription is for a schedule II opioid drug. Start Date: 10/04/22 Status: Ordered primidone 50 mg oral tablet 100 mg, 2, tablet, By Mouth, 2 times a day, rx'd by neurology at [facility], # 120 tablet, Refills 0, Maintenance, [...] a day, Rx'd by neurology at [facility] - [facility], # 270 tablet, [...] 14:39:00 EST, Aerosol, Route to Pharmacy Electronically, [id number], [facility]/pharmacy #[id number], 183, cm, 08/07/23 14:26:00 EST, Height,... [...] tablet, 3 Refills, Maintenance, 04/04/23 8:46:00 EDT, [facility]/pharmacy #[id number], 183, cm, 04/04/23 8:24:00 EDT, Height, 123.2, kg, 02/07/22 12:47:00 EDT, Dry Weight Start Date: 04/04/23 Status: Ordered Vitamin B-12 1000 mcg oral tablet 1, tablet, By Mouth, Daily, # 90 tablet, Refills 1, Maintenance, 08/28/23 13:12:00 EDT, Route to Pharmacy Electronically, [facility] STORE 17249, 183, cm, 08/22/23 13:24:00 EST, Height, 123.2, kg, 02/07/22 12:47:00 EDT, Dry Weight Start Date: 08/28/23 Status: Ordered Xopenex HFA 45 mcg/inh inhalation aerosol 2 puffs, Inhalation, Every 4 hours, PRN Wheezing/Shortness of Breath, replaces Ventolin due to reaction, # 1 each, 1 Refills, Maintenance, 02/15/23 11:23:00 EDT, [facility]erosol, [id number], Partial fill upon patient request if the [...] provided increased discomfort related to nerves. 3Seeing [place] neurology and sleep. Given a trial of [...] Care Team Personnel Name: Olimpia Parker Position: [facility] JUAN Office Staff Member Role: Lifetime Consulting Physician Name: Dayo Castano MD Position: [facility] Physician - Primary Care Member Role: PCP Address: Address: [address] [place] [address]- Care Team Related Persons Name: JARROD BRADFORD Address: home [address] [place] [address] Name: LOLA BRADFORD Address: home [address] [place] [address] Name: GOLDIE LERMA Address: [place] [address] Name: OLIMPIA LERMA Address: [place] [address] Name: KADE LERMA Address: home [address] [place] [address] Name: KADE LERMA Address: home [address] [place] [address]
== END 2023-11-02 09:39 | disposition home or self-care (01) ==
LOC: HO.HSMS 08:19
PROVIDERS: PCP Nurse Practitioner Family; Visit Provider Nurse Practitioner Family
DX: G20.A1 Parkinson's disease without dyskinesia, without mention of fluctuations (principal); F41.9 Anxiety disorder, unspecified; G47.62 Sleep related leg cramps; G47.9 Sleep disorder, unspecified; G50.1 Atypical facial pain
CPT/HCPCS: 99442

== ENCOUNTER → 2023-11-02 08:19 | Outpatient (BNVA) | payer OTHER, SELFPAY | PROVIDERS: PCP Nurse Practitioner Family; Visit Provider Nurse Practitioner Family ==

== ENCOUNTER → 2024-03-13 09:04 | Outpatient (BNVA) | payer OTHER, SELFPAY | PROVIDERS: PCP Nurse Practitioner Family; Visit Provider Nurse Practitioner Family ==

== ENCOUNTER 2024-03-13 09:11 | Outpatient (AMB) | payer OTHER, SELFPAY ==
--- NOTE | 2024-03-13 09:13 | MHC.OFFVIS ---
Vital Signs 03/13/24 09:14 Height 6 ft Weight 236 lb BMI 32.0 BP 98/80 Blood Pressure Location Rt brachial Position Sitting Pulse 82 Pulse Source Pulse Oximeter Pulse Oximetry (%) 98 Oxygen Delivery Method Room Air Intake Visit Reasons: Follow up Intake Note: Patient presents for follow up Allergies MARIBEL Inhibitors Allergy (Intermediate, Verified 03/13/24 09:13) Unknown albuterol [From Ventolin HFA] Allergy (Intermediate, Verified 03/13/24 09:13) Unknown baclofen Allergy (Intermediate, Verified 03/13/24 09:13) Unknown cetirizine [From Zyrtec] Allergy (Intermediate, Verified 03/13/24 09:13) Unknown gabapentin Allergy (Intermediate, Verified 03/13/24 09:13) Unknown insulin glargine [From Lantus U-100 Insulin] Allergy (Intermediate, Verified 03/13/24 09:13) Unknown penicillin G Allergy (Intermediate, Verified 03/13/24 09:13) Unknown quetiapine [From Seroquel] Allergy (Intermediate, Verified 03/13/24 09:13) Unknown penicillin Allergy (Unknown, Uncoded 03/13/24 09:13) Unknown HPI Comments Details: 63-yr-old male presents for f/u visit. Pt had interval hospitalization in November for neck pain inwhich elevated inflammatory markers and c-spine MRI showed edema in the C6 and C7 vertebrae with enhancement suspicious for possible discitis/osteomyelitis. Work-up did not otherwise identify infection. He was given ceftriaxone and vancomycin for 6 weeks. Inflammatory markers did stabilize. Pt states he has not seen urology for previous October [address] finding of left kidney lesion concerning for neoplasm. Pt states he needs a referral from this web content writer for him to have surgery. Pt's primary concerns are: he is not sleeping well, wonders if we can increase his clonazepam. ADL's: Ind Home setting: now living w/ relative. No longer living w/ his . Swallowing: No issues Cough: At times Drooling: None Orthostatic lightheadedness: Sometimes. Constipation: None Freezing: Unsure Stiffness/Cramps: BLE nocturnal toes and leg cramps. Tremor: BUE- states tremor is stable. Gait: Legs will start to feel tired if he is too active or walks too long. Falls: He has fallen- unclear on details. PCP has recently ordered PT. Hallucinations: None Memory: States his memory is good, but acknowledges that his PCP has noted poor memory. Sleep: Easily napping and falling asleep during the day. States he needs a new CPAP machine as his machine is old. He previously told us that he was sleeping better w/ a new CPAP machine w/ oxygen from [facility]. But today states he is not seeing [facility] sleep medicine. Exercise: Walking. OCD: denies compulsive behaviors. Mood: He is still f/b [facility], dx'd w/ schizophrenia and bipolar- on Abilify. Pain: Denies recent face and generalized neuralgic pain PFSH Medical History (Updated 03/13/24 @ 10:05 by ALLISON Goyal) Vitamin D deficiency Parkinson's disease Atypical face pain Surgical History H/O wrist surgery History of left hip replacement No pertinent past surgical history Family History Father Cancer Mother Diabetes Alzheimers disease Social History Household Members: None Alcohol intake: former Patient Tobacco Use Status: Former Tobacco user Review of Systems Const All systems reviewed & are unremarkable except as noted in HPI and below Physical Exam Vital Signs: Last Vital Signs Pulse 82 03/13/24 09:14 BP 98/80 03/13/24 09:14 Pulse Ox 98 03/13/24 09:14 Oxygen Delivery Method Room Air 03/13/24 09:14 BMI result Body Mass Index 32.0 Const General: cooperative and no acute distress Resp Effort & Inspection: normal respiratory effort and able to speak in complete sentences Neuro Other: General: Alert and oriented. though today at least twice started to doze off. Expression: Decreased expression and blink Voice: Softer, hoarser Tremor: BUE postural tremor Tone: BUE rigidity, R > L Dyskinesia: None FFM: Mild bradykinesia, more so on right Foot taps: Mild bradykinesia, more so on right Gait: Slow to stand, more stooped, decreased arm swing, shorter steps. Psych: Pleasant affect Assessment & Plan Assessment & Plan (1) Parkinson's disease without dyskinesia: Code(s): G20.A1 - Parkinson's disease without dyskinesia, without mention of fluctuations Category: Medical (2) Cognitive changes: Code(s): R41.89 - Other symptoms and signs involving cognitive functions and awareness Category: Medical (3) Cognitive dysfunction: Code(s): F09 - Unspecified mental disorder due to known physiological condition Category: Medical (4) Dizziness: Code(s): R42 - Dizziness and giddiness Category: Medical (5) Recurrent falls: Code(s): R29.6 - Repeated falls Category: Medical (6) Obstructive sleep apnea: Code(s): G47.33 - Obstructive sleep apnea (adult) (pediatric) Category: Medical Plan It is unclear if pt has had consult w/ [facility] for f/u of suspicious renal lesion. Will take the liberty of requesting nephrology's opinion. Continue Ropinirole 0.75mg QID (morning, late morning, afternoon, evening) Continue Ropinirole ER 4mg, 1 tab at bedtime Continue Primidone 50mg tab, 4 tabs daily in the morning and 2 tabs twice a day (afternoon and evening). Continue amitriptyline 100 mg q.h.s. and Pregabalin 300mg cap, 1 cap twice a day- for face and generalized neuralgic pain. Continue magnesium 400 mg q.h.s. for leg cramps Continue CPAP- will request PAP compliance report and confirm if being f/b [facility]. Advised pt that I cannot increase his Cloazepam as this is being prescribed by psychiatry. He may take Melatonin 10mg qhs. He should avoid daytime naps. Check labs for fatigue, cramps. Neuro-psych eval to assess cognition when able- patient currently on wait list at [facility]. ? Follow-up in 4-6 months or sooner as needed. Orders: Orders Magnesium Today D64.9 - Anemia, unspecified, E55.9 - Vitamin D deficiency, unspecified, R53.83 - Other fatigue TSH reflex Free T4 Today D64.9 - Anemia, unspecified, E55.9 - Vitamin D deficiency, unspecified, R53.83 - Other fatigue Ferritin Today D64.9 - Anemia, unspecified, E55.9 - Vitamin D deficiency, unspecified, R53.83 - Other fatigue IRON PROFILE Today D64.9 - Anemia, unspecified, E55.9 - Vitamin D deficiency, unspecified, R53.83 - Other fatigue Homocysteine Today D64.9 - Anemia, unspecified, E55.9 - Vitamin D deficiency, unspecified, R53.83 - Other fatigue Methylmalonic Acid Today D64.9 - Anemia, unspecified, E55.9 - Vitamin D deficiency, unspecified, R53.83 - Other fatigue MR head/brain wo/w con Today F09 - Unspecified mental disorder due to known physiological condition, N28.9 - Disorder of kidney and ureter, unspecified, R29.6 - Repeated falls, R42 - Dizziness and giddiness EEG electroencephalogram Today R41.89 - Other symptoms and signs involving cognitive functions and awareness Complete Blood Count Auto Diff Today D64.9 - Anemia, unspecified, E55.9 - Vitamin D deficiency, unspecified, R53.83 - Other fatigue Comprehensive Met. Panel Today D64.9 - Anemia, unspecified, E55.9 - Vitamin D deficiency, unspecified, R53.83 - Other fatigue Vitamin D 25-OH (D2 and D3) Today D64.9 - Anemia, unspecified, E55.9 - Vitamin D deficiency, unspecified, R53.83 - Other fatigue Vitamin B12 and Folate Today D64.9 - Anemia, unspecified, E55.9 - Vitamin D deficiency, unspecified, R53.83 - Other fatigue Referrals Nephrology Referral N28.9 - Disorder of kidney and ureter, unspecified Scribe Plan - Not visible on output: Discussed importance of regular physical activity for management of PD s/s, such as walking, cycling, boxing. Discussed benefits of dopaminergic therapies, such as reduced tremor and improved motor symptoms. Discussed potential adverse effects of dopaminergic therapies, including but not limited to nause/GI upset, orthostatic lightheadedness, dyskineisas, sleepiness, hallucinations. Pt is advised to establish care with a wastewater treatment operator due to slight increase risk of melanoma seen in patient's with Parkinson's disease. Coding Level of Care Code Est Pt Level 4 (46601) Complex EM visit Add On G2211 Diagnoses Parkinson's disease without dyskinesia G20.A1 Cognitive changes R41.89 Cognitive dysfunction F09 Dizziness R42 Recurrent falls R29.6 Obstructive sleep apnea G47.33
[2024-03-13 09:14] VITALS: BP 98/80; PULSE 82; O2SAT 98; BMI 32.0
== END 2024-03-13 10:16 | disposition home or self-care (01) ==
LOC: HO.HSMS 09:11
PROVIDERS: PCP Nurse Practitioner Family; Visit Provider Nurse Practitioner Family
DX: G20.A1 Parkinson's disease without dyskinesia, without mention of fluctuations (principal); R41.89 Other symptoms and signs involving cognitive functions and awareness; R42 Dizziness and giddiness; R29.6 Repeated falls; G47.33 Obstructive sleep apnea (adult) (pediatric)
CPT/HCPCS: 99214; G2211

== ENCOUNTER 2024-03-13 10:08 | Outpatient (REF) | payer OTHER, SELFPAY ==
[2024-03-13 15:02] LABS: MANUAL DIFF FLAG NO
[2024-03-13 15:08] LABS: Basophils Absolute Auto 0.1 X10*3/uL (0.0-0.2); Basophils Percent Auto 0.7 % (0-2); Eosinophils Absolute Auto 0.2 X10*3/uL (0.0-0.4); Eosinophils Percent Auto 1.1 % (0-4); Hematocrit 45.5 % (42.0-52.0); Hemoglobin 15.5 g/dl (14.0-18.0); Imm Gran Pct Auto 0.7 % (0.0-0.4); Lymphocytes Percent Auto 14.2 % (20-40); Mean Corpuscular HGB Conc 34.1 g/dl (31.0-36.0); Mean Corpuscular Hemoglobin 30.3 pg (27.0-33.0); Mean Corpuscular Volume 88.9 fL (80.0-98.0); Mean Platelet Volume 9.9 fL (9.4-12.4); Monocytes Absolute Auto 1.1 X10*3/uL (0.1-1.2); Neutrophils Absolute Auto 10.6 x10*3/uL (2.0-8.3); Neutrophils Percent Auto 75.3 % (45-73); Platelet Count 258 X10*3/uL (160-400); Red Blood Count 5.12 X10*6/uL (4.60-5.80); Red Cell Distribution Width 13.6 % (11.0-16.0); White Blood Count 14.1 X10*3/uL (4.8-10.8)
[2024-03-13 16:04] LABS: Alanine Aminotransferase 30 U/L (0-40); Albumin Level 4.2 g/dL (3.5-5.0); Alkaline Phosphatase 71 U/L (39-117); Anion Gap 13 (12-20); Aspartate Amino Transferase 20 U/L (5-37); Bilirubin Total 0.3 mg/dL (0.0-1.0); Blood Urea Nitrogen 19 mg/dL (9-16); Calcium 9.5 mg/dL (8.4-10.2); Carbon Dioxide 29 mmol/L (22-29); Chloride 100 mmol/L (96-108); Estimated Glomerular Filt Rate > 60; Glucose Random 104 mg/dL (60-115); Iron 40 mcg/dL (45-160); Magnesium 2.1 mg/dL (1.6-2.6); Percent Iron Saturation 15 % (15-50); Potassium 3.8 mmol/L (3.3-5.1); Sodium 138 mmol/L (135-145); Total Iron Binding Capacity 266 mcg/dL (228-428); Total Protein 7.3 g/dL (6.5-8.0); Unsaturated Iron Binding 226 ug/dL
[2024-03-13 16:20] LABS: Folate 12.9 ng/mL (> or = 4.0); Vitamin B12 1169 pg/mL (200-900)
[2024-03-13 16:20] LABS: Ferritin 118 ng/mL (20-250); TSH reflex Free T4 0.31 uIU/mL (0.32-4.0)
[2024-03-13 17:21] LABS: Free T4 (Free Thyroxine) 0.97 ng/dL (0.71-1.85)
[2024-03-14 19:28] LABS: Homocysteine 8.3 umol/L (<11.4)
[2024-03-17 06:19] LABS: Methylmalonic Acid 96 nmol/L (69-390)
[2024-03-17 14:34] LABS: Vitamin D 25-OH, D2 <4 ng/mL; Vitamin D 25-OH, D3 31 ng/mL; Vitamin D 25-OH, Total 31 ng/mL (30-100)
== END 2024-03-13 10:09 | disposition home or self-care (01) ==
LOC: HO.HKASLDS 10:08
PROVIDERS: Visit Provider Nurse Practitioner Family
DX: R53.83 Other fatigue (principal); E55.9 Vitamin D deficiency, unspecified; D64.9 Anemia, unspecified; G20.A1 Parkinson's disease without dyskinesia, without mention of fluctuations; R41.89 Other symptoms and signs involving cognitive functions and awareness; F09 Unspecified mental disorder due to known physiological condition; R42 Dizziness and giddiness; R29.6 Repeated falls; G47.33 Obstructive sleep apnea (adult) (pediatric); N28.9 Disorder of kidney and ureter, unspecified
CPT/HCPCS: 36415; 80053; 82306; 82607; 82728; 82746; 83090; 83540; 83735; 83921; 84439; 84443; 85025; 99212

== ENCOUNTER 2024-04-04 16:03 | Outpatient (AMB) | payer OTHER, SELFPAY ==
--- NOTE | 2024-04-04 16:06 | HO.NEPHOV_ITS ---
Vital Signs 04/04/24 16:08 Height 6 ft Weight 241 lb 6 oz BMI 32.7 BP 100/60 Blood Pressure Location Lt brachial Position Sitting Intake Visit Reasons: Disorder of kidney and ureter Manager Of Operations Required: No Accompanied by: Other Relationship Allergies MARIBEL Inhibitors Allergy (Intermediate, Verified 04/04/24 16:10) Unknown albuterol [From Ventolin HFA] Allergy (Intermediate, Verified 04/04/24 16:10) Unknown baclofen Allergy (Intermediate, Verified 04/04/24 16:10) Unknown cetirizine [From Zyrtec] Allergy (Intermediate, Verified 04/04/24 16:10) Unknown gabapentin Allergy (Intermediate, Verified 04/04/24 16:10) Unknown insulin glargine [From Lantus U-100 Insulin] Allergy (Intermediate, Verified 04/04/24 16:10) Unknown penicillin G Allergy (Intermediate, Verified 04/04/24 16:10) Unknown quetiapine [From Seroquel] Allergy (Intermediate, Verified 04/04/24 16:10) Unknown penicillin Allergy (Unknown, Uncoded 03/13/24 09:13) Unknown HPI Comments Details: Matt was seen in consultation for a second opinion for a left renal mass. He was accompanied by his brother. He claimed that he had an imaging study few months ago for a different reason and had an incidental finding of exophytic left renal mass of 2.5 cm at the mid pole of the kidney. He denied any night sweats, fever, weight loss, hematuria or flank pain. He has seen a Urologist but could not give me any further details. He also claimed that he does not have a follow up with him. He is hypertensive and takes Amlodipine and Chlorthalidone. His BP has been at goal. He denies any PAD, H/O STEVIE, CAD, CVA, CHF or carotid stenosis. He denies any retinopathy, proteinuria, palpitations, syncope, SOB, edema, drug use or intake of excessive NSAID's. He wants to see another Urologist and take care of his exophytic renal mass. [facility] Medical History (Updated 04/06/24 @ 09:24 by Rizwan Wharton MD) Vitamin D deficiency Parkinson's disease Atypical face pain Surgical History H/O wrist surgery History of left hip replacement No pertinent past surgical history Family History Father Cancer Mother Diabetes Alzheimers disease Social History Household Members: None Alcohol intake: former Patient Tobacco Use Status: Former Tobacco user Review of Systems Const All systems reviewed & are unremarkable except as noted in HPI and below Physical Exam Vital Signs: Last Vital Signs BP 100/60 04/04/24 16:08 BMI result Body Mass Index 32.7 Const General: comfortable and no acute distress Orientation/consciousness: patient oriented x3 HEENT Head: Yes normocephalic Mouth: Normal oral and palatal mucosa present Eyes EOM: EOMs intact bilaterally Neck Neck: Yes supple Resp Auscultation: clear to auscultation bilaterally Cardio Jugular venous distension: no JVD Rate: regular rate GI Palpation (GI): Soft to palpation Auscultation: normal bowel sounds General: Yes no CVA tenderness Back/Spine/Pelvis Back: no CVA tenderness Skin General skin exam: no rashes or lesions noted Neuro General: patient oriented x3 and moves all extremities Extrem General: Yes no pedal edema Results Reviewed Nephrology Results: Hgb 15.5 g/dl (14.0-18.0) 03/13/24 WBC 14.1 X10*3/uL (4.8-10.8) H 03/13/24 Plt Count 258 X10*3/uL (160-400) 03/13/24 Sodium 138 mmol/L (135-145) 03/13/24 Potassium 3.8 mmol/L (3.3-5.1) 03/13/24 Chloride 100 mmol/L (96-108) 03/13/24 Carbon Dioxide 29 mmol/L (22-29) 03/13/24 BUN 19 mg/dL (9-16) H 03/13/24 Creatinine 0.89 mg/dL (0.5-1.4) 03/13/24 Calcium 9.5 mg/dL (8.4-10.2) 03/13/24 Assessment & Plan Assessment & Plan (1) Renal mass, left: Code(s): N28.89 - Other specified disorders of kidney and ureter Category: Medical (2) Hypertension: Code(s): I10 - Essential (primary) hypertension Category: Medical Qualifiers: Hypertension type: primary hypertension Qualified Code(s): I10 - Ess ential (primary) hypertension Plan Blood pressure at goal on current medication regimen No documented H/O retinopathy/Proteinuria/LVH H/O normal renal function/ serum K; No H/O drug use No H/O hematuria/weight loss/ fever/ night sweats Scan report scanned in the chart for review Referred to [facility] Urology for second opinion & transfer of care to [facility] Likely will need PET scan; Lesion may be amenable for embolisation No medication changes made today; All questions answered; F/U given Orders: Referrals Urology Referral N28.89 - Other specified disorders of kidney and ureter Coding Level of Care Code New Pt Level 4 (40045) Diagnoses Renal mass, left N28.89 Primary hypertension I10 Hypertension type: primary hypertension
[2024-04-04 16:08] VITALS: BP 100/60; BMI 32.7
== END 2024-04-04 16:28 | disposition home or self-care (01) ==
PROVIDERS: PCP Nurse Practitioner Family; Referring Provider Nurse Practitioner Family; Visit Provider Internal Medicine Nephrology
DX: N28.89 Other specified disorders of kidney and ureter (principal); I10 Essential (primary) hypertension
CPT/HCPCS: 99204

== ENCOUNTER → 2024-04-04 16:03 | Outpatient (BNVA) | payer OTHER, SELFPAY | PROVIDERS: PCP Nurse Practitioner Family; Referring Provider Nurse Practitioner Family; Visit Provider Internal Medicine Nephrology | DX: N28.89 Other specified disorders of kidney and ureter (principal); I10 Essential (primary) hypertension | CPT/HCPCS: 99202 ==

== ENCOUNTER 2024-06-27 13:19 | Outpatient (AMB) | payer OTHER, SELFPAY ==
--- NOTE | 2024-06-27 13:55 | HO.NEPHOV_ITS ---
Vital Signs 06/27/24 13:57 Height 6 ft BP 150/80 H Blood Pressure Location Lt brachial Position Sitting Pulse 86 Pulse Source Pulse Oximeter Pulse Oximetry (%) 96 Oxygen Delivery Method Room Air Intake Visit Reasons: 3mon follow up-Conf Demolition Specialist Required: No Accompanied by: Other Relationship Allergies MARIBEL Inhibitors Allergy (Intermediate, Verified 06/27/24 13:57) Unknown albuterol [From Ventolin HFA] Allergy (Intermediate, Verified 06/27/24 13:57) Unknown baclofen Allergy (Intermediate, Verified 06/27/24 13:57) Unknown cetirizine [From Zyrtec] Allergy (Intermediate, Verified 06/27/24 13:57) Unknown gabapentin Allergy (Intermediate, Verified 06/27/24 13:57) Unknown insulin glargine [From Lantus U-100 Insulin] Allergy (Intermediate, Verified 06/27/24 13:57) Unknown penicillin G Allergy (Intermediate, Verified 06/27/24 13:57) Unknown quetiapine [From Seroquel] Allergy (Intermediate, Verified 06/27/24 13:57) Unknown penicillin Allergy (Unknown, Uncoded 03/13/24 09:13) Unknown HPI Comments Details: Matt was seen in follow up for left renal mass. He was accompanied by his brother. He claimed that he had an imaging study few months ago for a different reason and had an incidental finding of exophytic left renal mass of 2.5 cm at the mid pole of the kidney. He denied any night sweats, fever, weight loss, hematuria or flank pain. He has seen a Urologist . He also claimed that he does not have a follow up with him. He is hypertensive and takes Amlodipine and Chlorthalidone. His BP has been at goal. He denies any PAD, H/O STEVIE, CAD, CVA, CHF or carotid stenosis. He denies any retinopathy, proteinuria, palpitations, syncope, SOB, edema, drug use or intake of excessive NSAID's. He wants to see another Urologist and take care of his exophytic renal mass [facility] Medical History (Updated 06/20/24 @ 16:33 by ALLISON Goyal) Vitamin D deficiency Parkinson's disease Atypical face pain Surgical History H/O wrist surgery History of left hip replacement No pertinent past surgical history Family History Father Cancer Mother Diabetes Alzheimers disease Social History Household Members: None Alcohol intake: former Patient Tobacco Use Status: Former Tobacco user Physical Exam Vital Signs: Last Vital Signs Pulse 86 06/27/24 13:57 BP 150/80 H 06/27/24 13:57 Pulse Ox 96 06/27/24 13:57 Oxygen Delivery Method Room Air 06/27/24 13:57 Const General: comfortable and no acute distress Orientation/consciousness: patient oriented x3 HEENT Head: Yes normocephalic Mouth: Normal oral and palatal mucosa present Eyes EOM: EOMs intact bilaterally Neck Neck: Yes supple Resp Auscultation: clear to auscultation bilaterally Cardio Jugular venous distension: no JVD Rate: regular rate GI Palpation (GI): Soft to palpation Auscultation: normal bowel sounds General: Yes no CVA tenderness Back/Spine/Pelvis Back: no CVA tenderness Skin General skin exam: no rashes or lesions noted Neuro General: patient oriented x3 and moves all extremities Extrem General: Yes no pedal edema Results Reviewed Nephrology Results: Hgb 15.5 g/dl (14.0-18.0) 03/13/24 WBC 14.1 X10*3/uL (4.8-10.8) H 03/13/24 Plt Count 258 X10*3/uL (160-400) 03/13/24 Sodium 138 mmol/L (135-145) 03/13/24 Potassium 3.8 mmol/L (3.3-5.1) 03/13/24 Chloride 100 mmol/L (96-108) 03/13/24 Carbon Dioxide 29 mmol/L (22-29) 03/13/24 BUN 19 mg/dL (9-16) H 03/13/24 Creatinine 0.89 mg/dL (0.5-1.4) 03/13/24 Calcium 9.5 mg/dL (8.4-10.2) 03/13/24 Assessment & Plan Assessment & Plan (1) Hypertension: Code(s): I10 - Essential (primary) hypertension Category: Medical Qualifiers: Hypertension type: primary hypertension Qualified Code(s): I10 - Essential (primary) hypertension (2) Renal mass, left: Code(s): N28.89 - Other specified disorders of kidney and ureter Category: Medical Plan Blood pressure at goal on current medication regimen No documented H/O retinopathy/Proteinuria/LVH H/O normal renal function/ serum K; No H/O drug use No H/O hematuria/weight loss/ fever/ night sweats Scan report scanned in the chart for review Started Amlodipine at 5 mg daily. May need to increase to 10 mg daily Referred to [facility] Urology for second opinion & transfer of care to [facility] Likely will need PET scan; Lesion may be amenable for embolisation No other medication changes made today; All questions answered; F/U given Orders: Orders Creatinine 3 Months I10 - Essential (primary) hypertension, N28.89 - Other specified disorders of kidney and ureter Blood Urea Nitrogen 3 Months I10 - Essential (primary) hypertension, N28.89 - Other specified disorders of kidney and ureter Electrolytes 3 Months I10 - Essential (primary) hypertension, N28.89 - Other specified disorders of kidney and ureter Medications: Changed From amlodipine 5 mg PO DAILY To amlodipine 5 mg PO DAILY 30 tabs 6RF Coding Level of Care Code Est Pt Level 4 (80486) Diagnoses Primary hypertension I10 Hypertension type: primary hypertension Renal mass, left N28.89
[2024-06-27 13:57] VITALS: BP 150/80; PULSE 86; O2SAT 96
== END 2024-06-27 14:15 | disposition home or self-care (01) ==
PROVIDERS: PCP Nurse Practitioner Family; Visit Provider Internal Medicine Nephrology
DX: I10 Essential (primary) hypertension (principal); N28.89 Other specified disorders of kidney and ureter
CPT/HCPCS: 99214

== ENCOUNTER → 2024-06-27 13:19 | Outpatient (BNVA) | payer OTHER, SELFPAY | PROVIDERS: PCP Nurse Practitioner Family; Visit Provider Internal Medicine Nephrology | DX: I10 Essential (primary) hypertension (principal); N28.89 Other specified disorders of kidney and ureter | CPT/HCPCS: 99212 ==

== ENCOUNTER 2024-09-26 13:51 | Outpatient (AMB) | payer OTHER, SELFPAY ==
--- NOTE | 2024-09-26 13:58 | HO.NEPHOV ---
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 Required: No Accompanied by: Self / Same As Patient Allergies MARIBEL Inhibitors Allergy (Intermediate, Verified 09/26/24 14:07) Unknown albuterol [From Ventolin HFA] Allergy (Intermediate, Verified 09/26/24 14:07) Unknown baclofen Allergy (Intermediate, Verified 09/26/24 14:07) Unknown cetirizine [From Zyrtec] Allergy (Intermediate, Verified 09/26/24 14:07) Unknown gabapentin Allergy (Intermediate, Verified 09/26/24 14:07) Unknown insulin glargine [From Lantus U-100 Insulin] Allergy (Intermediate, Verified 09/26/24 14:07) Unknown penicillin G Allergy (Intermediate, Verified 09/26/24 14:07) Unknown quetiapine [From Seroquel] Allergy (Intermediate, Verified 09/26/24 14:07) Unknown penicillin Allergy (Unknown, Uncoded 03/13/24 09:13) Unknown HPI Comments Details: Matt was seen in follow up for left renal mass. He was accompanied by his brother. He claimed that he had an imaging study few months ago for a different reason and had an incidental finding of exophytic left renal mass of 2.5 cm at the mid pole of the kidney. He denied any night sweats, fever, weight loss, hematuria or flank pain. He has seen a Urologist . He also claimed that he does not have a follow up with him. He is hypertensive and takes Amlodipine and Chlorthalidone. His BP has been at goal. He denies any PAD, H/O STEVIE, CAD, CVA, CHF or carotid stenosis. He denies any retinopathy, proteinuria, palpitations, syncope, SOB, edema, drug use or intake of excessive NSAID's. [facility] Medical History (Updated 06/20/24 @ 16:33 by ALLISON Goyal) Vitamin D deficiency Parkinson's disease Atypical face pain Surgical History H/O wrist surgery History of left hip replacement No pertinent past surgical history Family History Father Cancer Mother Diabetes Alzheimers disease Social History Household Members: None Alcohol intake: former Patient Tobacco Use Status: Former Tobacco user Review of Systems Const All systems reviewed & are unremarkable except as noted in HPI and below Physical Exam Const General: comfortable and no acute distress Orientation/consciousness: patient oriented x3 HEENT Head: Yes normocephalic Mouth: Normal oral and palatal mucosa present Eyes EOM: EOMs intact bilaterally Neck Neck: Yes supple Resp Auscultation: clear to auscultation bilaterally Cardio Jugular venous distension: no JVD Rate: regular rate GI Palpation (GI): Soft to palpation Auscultation: normal bowel sounds General: Yes no CVA tenderness Back/Spine/Pelvis Back: no CVA tenderness Skin General skin exam: no rashes or lesions noted Neuro General: patient oriented x3 and moves all extremities Extrem General: Yes no pedal edema Results Reviewed Nephrology Results: Hgb 15.5 g/dl (14.0-18.0) 03/13/24 WBC 14.1 X10*3/uL (4.8-10.8) H 03/13/24 Plt Count 258 X10*3/uL (160-400) 03/13/24 Sodium 138 mmol/L (135-145) 03/13/24 Potassium 3.8 mmol/L (3.3-5.1) 03/13/24 Chloride 100 mmol/L (96-108) 03/13/24 Carbon Dioxide 29 mmol/L (22-29) 03/13/24 BUN 19 mg/dL (9-16) H 03/13/24 Creatinine 0.89 mg/dL (0.5-1.4) 03/13/24 Calcium 9.5 mg/dL (8.4-10.2) 03/13/24 Assessment & Plan Assessment & Plan (1) Hypertension: Code(s): I10 - Essential (primary) hypertension Category: Medical Qualifiers: Hypertension type: primary hypertension Qualified Code(s): I10 - Essential (primary) hypertension (2) Renal mass, left: Code(s): N28.89 - Other specified disorders of kidney and ureter Category: Medical Plan Blood pressure at goal on current medication regimen No documented H/O retinopathy/Proteinuria/LVH H/O normal renal function/ serum K; No H/O drug use No H/O hematuria/weight loss/ fever/ night sweats Scan report scanned in the chart for review Increase Amlodipine to 10 mg daily Referred to [facility] Urology for second opinion & transfer of care to [facility] Likely will need PET scan; Lesion may be amenable for embolisation No other medication changes made today; All questions answered; F/U given Orders: Orders Creatinine 6 Months I10 - Essential (primary) hypertension, N28.89 - Other specified disorders of kidney and ureter Blood Urea Nitrogen 6 Months I10 - Essential (primary) hypertension, N28.89 - Other specified disorders of kidney and ureter Electrolytes 6 Months I10 - Essential (primary) hypertension, N28.89 - Other specified disorders of kidney and ureter Calcium 6 Months I10 - Essential (primary) hypertension, N28.89 - Other specified disorders of kidney and ureter Medications: Changed From amlodipine 5 mg PO DAILY 30 tabs 6RF To amlodipine 10 mg PO DAILY 30 tabs 6RF Coding Level of Care Code Est Pt Level 4 (65802) Diagnoses Primary hypertension I10 Hypertension type: primary hypertension Renal mass, left N28.89
[2024-09-26 14:07] VITALS: BP 150/70; BMI 36.1
--- OUTSIDE RECORDS SUMMARY | 2024-09-26 16:46 | XMS_ITS | Data Portability ---
Author Organization [place] [facility] Address [address] [facility] [address] [place] [address] Care Team Providers Care Online Marketing Strategist Name Role Phone FRANCINE GUZMÁN Referring Provider FARAZ CALVILLO Primary Care Provider [phone] Assessment Encounter Date Assessment Date Assessment LastModified by Organization Details LastModified Time 01/07/2020 01/07/2020 Matt Zuleta year old man with low back pain radiating into his right lower extremity. On exam ,he has pain on flexion. MRI Lumbar spine shows Spondylotic and degenerative disc changes of the lumbar spine are present . He is here for a trial of Lumbar epidural steroid injections under fluoroscopic guidance . The risks and benefits of the procedure were discussed in detail. He wishes to proceed. He needs to follow up in four weeks . [email or web address] Not available 01/07/2020 10:05:25 01/30/2020 01/30/2020 Matt Zuleta is a 59 year old man with low back pain radiating into both his lower extremities. On exam ,he has pain on flexion. MRI Lumbar spine shows Spondylotic and degenerative disc changes of the lumbar spine are present .Repeat Lumbar epidural steroid injections under fluoroscopic guidance was recommended. The risks and benefits of the procedure were discussed in detail. He wishes to proceed. An appointment has been booked for the same. He needs a locomotive driver on the day of the procedure. [email or web address] Not available 01/30/2020 13:17:27 04/08/2020 04/08/2020 Matt Zuleta is a 59 year old man with low back pain radiating into his right lower extremity. On exam ,he has pain on flexion. MRI Lumbar spine shows Spondylotic and degenerative disc changes of the lumbar spine are present . He is here for a trial of Lumbar epidural steroid injections under fluoroscopic guidance . The risks and benefits of the procedure were discussed in detail. He wishes to proceed. He needs to follow up in four weeks . [email or web address] Not available 04/08/2020 13:27:45 04/17/2020 04/17/2020 Matt Zuleta is a 59 year old man with low back pain radiating into both his lower extremities. On exam ,he has pain on flexion. MRI Lumbar spine shows Spondylotic and degenerative disc changes of the lumbar spine are present . He is having knee pain and has appointment with [facility]. I have given him lidocaine patches to trial. He will call if effective. He can follow up in one month. [email or web address] Not available 04/20/2020 14:08:10 05/08/2020 05/08/2020 Matt Zuleta is a 59 year old man with low back pain radiating into both his lower extremities. On exam ,he has pain on flexion. MRI Lumbar spine shows Spondylotic and degenerative disc changes of the lumbar spine are present .Repeat Lumbar epidural steroid injections under fluoroscopic guidance was recommended in three months. The risks and benefits of the procedure were discussed in detail. He wishes to proceed. An appointment has been booked for the same. He needs a locomotive driver on the day of the procedure. [email or web address] Not available 05/27/2020 11:22:53 Plan of Treatment Reminders Order Date Submit Date Provider Last Modified By Organization Details Last Modified Time Details Appointments None recorded. Lab None recorded. Referral None recorded. Procedures None recorded. Surgeries None recorded. Imaging None recorded. Medication Orders lidocaine 5 % topical patch 2019 020 [facility]/Pharmacy #[id number], [address] [place], [address], 0 08:36:11 Patient TargetsNo targets recorded. Patient Instructions Encounter Date Encounter Id Patient Instructions Last Modified By Organization Details Last Modified Time 01/07/2020 [id number] He is a diabetic. Blood sugar levels may temporarily increase after steroid injections. He was advised to check his blood glucose levels three times a day post procedure. If his levels are above 250, he was advised to contact his PCP. [email or web address] Not available 01/07/2020 10:04:45 He was advised against bed rest lasting longer than four days and to continue activities as tolerated. [email or web address] Not available 01/07/2020 10:04:47 01/30/2020 [id number] He is a diabetic. Blood sugar levels may temporarily increase after steroid injections. He was advised to check his blood glucose levels three times a day post procedure. If his levels are above 250, he was advised to contact his PCP. tmanikantan Not available 01/30/2020 13:16:22 He was advised against bed rest lasting longer than four days and to continue activities as tolerated. [email or web address] Not available 01/30/2020 13:16:24 04/08/2020 [id number] He is a diabetic. Blood sugar levels may temporarily increase after steroid injections. He was advised to check his blood glucose levels three times a day post procedure. If his levels are above 250, he was advised to contact his PCP. tmanikantan Not available 04/08/2020 13:26:12 04/17/2020 [id number] He is a diabetic. Blood sugar levels may temporarily increase after steroid injections. He was advised to check his blood glucose levels three times a day post procedure. If his levels are above 250, he was advised to contact his PCP. tmanikantan Not available 04/20/2020 14:05:40 He was advised against bed rest lasting longer than four days and to continue activities as tolerated. tmanikantan Not available 04/20/2020 14:05:44 05/08/2020 [id number] He is a diabetic. Blood sugar levels may temporarily increase after steroid injections. He was advised to check his blood glucose levels three times a day post procedure. If his levels are above 250, he was advised to contact his PCP. tmanikantan Not available 05/27/2020 11:19:10 He was advised against bed rest lasting longer than four days and to continue activities as tolerated. [email or web address] Not available 05/27/2020 11:23:03 Reason for Referral None Reported. Problems Name Problem SNOMED Code Status Onset Date Resolution Date Notes Provider Name and Address Organization Details Recorded Time Spinal stenosis of lumbar region 52334269 Active Quinton duong MD [address] [facility] , [address], [place], [address], [place] [facility] 0 10:23:28 Degeneration of lumbar intervertebral disc 69950215 Active Quinton duong MD [address] [facility] , [address], [place], [address], [place] [facility] 0 10:53:43 Lumbosacral radiculopathy 8232818 Active Quinton duong MD [address] [facility] , [address], [place], [address], [place] [facility] 0 10:53:38 Lumbosacral spondylosis without myelopathy 64873714 Active Quinton duong MD [address] [facility] , [address], [place], [address], [place] [facility] 0 10:53:32 Problem Notes None recorded. Procedures Surgical History Date Name Laterality Status Provider Name and Address Organization Details Recorded Time 04/08/20 20 Lumbar Epidural steroid injection under fluoroscopic guidance completed Quinton Hall MD [address] [facility] , [address], [place], [address], [place] [facility] 04/08/2020 13:27:09 01/07/20 20 Lumbar Epidural steroid injection under fluoroscopic guidance completed Quinton Hall MD [address] [facility] , [address], [place], [address], [place] [facility] 01/07/2020 10:00:37 Carpal tunnel surgery completed Quinton Hall MD [address] [facility] , [address], [place], [address], [place] [facility] 11/08/2019 10:26:40 Imaging Results None recorded. Procedure Notes None recorded. Medical Equipment None Reported. Allergies Allergen ID Allergen Name Allergen Category Reaction Reaction Severity Criticality Documentation Date Start Date Code Code System Note Provider Name and Address Organization Details Recorded Time 89841 Product containin g penicilli n (product) medicatio n anaphylax is Not available Not available 11/08/2019 02688 8001 SNOMED Quinton duong MD [address] [facility] , [address], [place], [address], [place] [facility] 0 10:18:57 53393 Zyrtec medicatio n itching moderate Not available 01/07/2020 99039 RxNorm Monica magana, [place] - [facility] 0 09:33:09 Medications Name Sig Start Date Stop Date Status Note LastModified by Organization Details LastModified Time celecoxib 200 mg capsule TAKE 1 CAPSULE BY MOUTH EVERY DAY active Not Available Not Available No t Available cyclobenzap rine 10 mg tablet 05/08 completed Not Available Not Available Not Available metformin 500 mg tablet TAKE 1 TABLET BY MOUTH TWICE A DAY WITH MEALS active Not Available Not Available No t Available primidone 50 mg tablet active Not Available Not Available Not Available oxcarbazepi ne 150 mg tablet TAKE 2 TABLETS BY MOUTH EVERY MORNING AND 1 TAB AT BEDTIME active Not Available Not Available No t Available prednisone 10 mg tablet 11/07 completed Not Available Not Available Not Available nicotine 14 mg/24 hr daily transdermal patch PLACE 1 PATCH ONTO THE SKIN EVERY 24 HOURS active Not Available Not Available No t Available cetirizine 10 mg tablet active Not Available Not Available Not Available azithromyci n 250 mg tablet 11/07 completed Not Available Not Available Not Available ibuprofen 800 mg tablet 01/29 completed Not Available Not Available Not Available alprazolam 1 mg tablet 11/07 completed Not Available Not Available Not Available tizanidine 4 mg tablet 11/07 completed Not Available Not Available Not Available minocycline 100 mg capsule 04/17 completed Not Available Not Available Not Available meloxicam 15 mg tablet active Not Available Not Available Not Available prednisone 20 mg tablet TAKE 3 TABS X 3 DAYS THEN 2 TABS X 3 DAYS THEN 1 TAB X 3 DAYS active Not Available Not Available No t Available glipizide ER 5 mg tablet, extended release 24 hr TAKE 1 TABLET BY MOUTH TWICE A DAY active Not Available Not Available No t Available oxcarbazepi ne 300 mg tablet TAKE 1 TABLET BY MOUTH TWICE A DAY active Not Available Not Available No t Available acetaminoph en 300 mg-codeine 30 mg tablet active Not Available Not Available Not Available aspirin 81 mg tablet,mikaela yed release TAKE 1 TABLET BY MOUTH EVERY DAY active Not Available Not Available No t Available tramadol 50 mg tablet TAKE 1 TABLET BY MOUTH EVERY 6 HOURS active Not Available Not Available No t Available acetaminoph en 500 mg tablet active Not Available Not Available Not Available alprazolam 0.5 mg tablet 11/07 completed Not Available Not Available Not Available amitriptyli ne 25 mg tablet TAKE 2 TABLETS AT BEDTIME X 2 WEEKS, THEN INCREASE TO 3 TABS/BED X 1 WEEK, THEN 4 TABLETS AT BEDTIME active Not Available Not Available No t Available magnesium oxide 400 mg (241.3 mg magnesium) tablet TAKE 1 TABLET BY MOUTH NOW AND THEN 1 TAB AT BEDTIME active Not Available Not Available No t Available nicotine (polacrilex ) 4 mg gum 01/06 completed Not Available Not Available Not Available diazepam 2 mg tablet active Not Available Not Available No t Available carbamazepi ne ER 200 mg tablet,exte nded release,12 hr 11/07 completed Not Available Not Available Not Available baclofen 10 mg tablet 04/17 completed Not Available Not Available Not Available amlodipine 10 mg tablet active Not Available Not Available Not Available metformin 1,000 mg tablet 01/06 completed Not Available Not Available Not Available buspirone 10 mg tablet active Not Available Not Available Not Available lidocaine 5 % topical patch APPLY 1 PATCH BY TOPICAL ROUTE ONCE DAILY (MAY WEAR UP TO 12HOURS.) 2020 active Not Available Not Available Not Avai lable valsartan 320 mg tablet TAKE 1 TABLET BY MOUTH EVERY DAY active Not Available Not Available No t Available nicotine 21 mg/24 hr daily transdermal patch 01/06 completed Not Available Not Available Not Available docusate sodium 100 mg capsule active Not Available Not Available N ot Available omeprazole 20 mg capsule,del ayed release TAKE 1 CAPSULE BY MOUTH EVERY DAY active Not Available Not Available No t Available diclofenac sodium 75 mg tablet,mikaela yed release TAKE 1 TABLET BY MOUTH TWICE A DAY WITH FOOD NEEDED FOR PAIN active Not Available Not Available No t Available montelukast 10 mg tablet TAKE 1 TABLET BY MOUTH EVERY DAY IN THE EVENING active Not Available Not Available No t Available hydroxyzine HCl 25 mg tablet 04/17 completed Not Available Not Available Not Available ibuprofen 600 mg tablet TAKE 1 TABLET BY MOUTH 3 TIMES A DAY NEEDED FOR PAIN active Not Available Not Available No t Available albuterol sulfate HFA 90 mcg/actuati on aerosol inhaler TAKE 2 PUFFS BY MOUTH EVERY 4 HOURS NEEDED active Not Available Not Available No t Available fluoxetine 20 mg capsule 11/07 completed Not Available Not Available Not Available fluticasone propionate 50 mcg/actuati on nasal spray,suspe nsion active Not Available Not Available Not Available amitriptyli ne 100 mg tablet TAKE 1 TABLET BY MOUTH EVERY DAY AT NIGHT active Not Available Not Available No t Available doxycycline hyclate 100 mg tablet 11/07 completed Not Available Not Available Not Available loratadine 10 mg tablet active Not Available Not Available Not Available prazosin 2 mg capsule 05/08 completed Not Available Not Available Not Available naproxen 500 mg tablet TAKE 1 TABLET BY MOUTH TWICE A DAY WITH FOOD NEEDED FOR PAIN active Not Available Not Available No t Available Vitamin B-12 1,000 mcg tablet TAKE 1 TABLET BY MOUTH EVERY DAY active Not Available Not Available No t Available nabumetone 500 mg tablet TAKE 1 TABLET BY MOUTH TWICE A DAY WITH FOOD NEEDED FOR PAIN active Not Available Not Available No t Available hydroxyzine pamoate 25 mg capsule 04/17 completed Not Available Not Available Not Available escitalopra m 10 mg tablet 05/08 completed Not Available Not Available Not Available cyclobenzap rine 5 mg tablet TAKE 1 TABLET BY MOUTH 3 TIMES A DAY NEEDED FOR MUSCLE SPASMS active Not Available Not Available No t Available aripiprazol e 5 mg tablet TAKE 1 TABLET BY MOUTH EVERY DAY AT NIGHT active Not Available Not Available No t Available rosuvastati n 5 mg tablet TAKE 1 TABLET BY MOUTH EVERY DAY active Not Available Not Available No t Available omega-3 acid ethyl esters 1 gram capsule TAKE 1 CAPSULE BY MOUTH TWICE A DAY active Not Available Not Available No t Available eszopiclone 3 mg tablet active Not Available Not Available Not Available Flovent HFA 110 mcg/actuati on aerosol inhaler 01/06 completed Not Available Not Available Not Available pregabalin 300 mg capsule TAKE 1 CAPSULE BY MOUTH 2 TIMES A DAY FOR 60 DAYS active Not Available Not Available No t Available FreeStyle Lite Meter kit active Not Available Not Available Not Available FreeStyle Lite Strips USE DIRECTED ONCE DAILY active Not Available Not Available No t Available levocetiriz ine 5 mg tablet active Not Available Not Available Not Available diclofenac 1 % topical gel APPLY TO AFFECTED AREA TWICE A DAY active Not Available Not Available No t Available Stool Softener 100 mg tablet TAKE 1 TABLET BY MOUTH TWICE A DAY NEEDED active Not Available Not Available No t Available lidocaine 5 % topical ointment APPLY TO AFFECTED AREA 3 TIMES A DAY active Not Available Not Available No t Available Refresh Celluvisc 1 % eye gel in a dropperette 01/06 completed Not Available Not Available Not Available Belsomra 10 mg tablet 04/17 completed Not Available Not Available Not Available Shingrix (PF) 50 mcg/0.5 mL intramuscul ar suspension, kit 04/17 completed Not Available Not Available Not Available Fluzone Quad (PF) 60 mcg (15 mcg x 4)/0.5 mL IM syringe [facility] 04/17 completed Not Available Not Available Not Available Vitals Date Recorded Body height Heart rate Oxygen saturation Oxygen saturation in Arterial blood by Pulse oximetry Systolic blood pressure Diastolic blood pressure Provider Name and Address Organization Details Last Updated DateTime 0 185.42 cm 73 /min 98 % 98 % 146 mm[Hg] 73 mm[Hg] Monica Cole [place] [facility] 0 09:39:57 Date Recorded Body height Heart rate Oxygen saturation Oxygen saturation in Arterial blood by Pulse oximetry Systolic blood pressure Diastolic blood pressure Provider Name and Address Organization Details Last Updated DateTime 0 185.42 cm 68 /min 97 % 97 % 126 mm[Hg] 69 mm[Hg] Monica Cole [place] - [facility] 0 11:13:43 Date Recorded Body height Heart rate Oxygen saturation Oxygen saturation in Arterial blood by Pulse oximetry Pain severity - 0-10 verbal numeric rating [Score] - Reported Systolic blood pressure Diastolic blood pressure Provider Name and Address Organization Details Last Updated DateTime 0 185.42 cm 89 /min 98 % 98 % 5 157 mm[Hg] 69 mm[Hg] Maria Isabel duong [place] - [facility] 0 13:01:48 Date Recorded Body height Body mass index (BMI) Body weight Heart rate Oxygen saturation Oxygen saturation in Arterial blood by Pulse oximetry Pain severity - 0-10 verbal numeric rating [Score] - Reported Systolic blood pressure Diastolic blood pressure Provider Name and Address Organization Details Last Updated DateTime 0 185.42 cm 35.6 kg/m2 021202. 94 g 73 /min 98 % 98 % 10 157 mm[Hg] 68 mm[Hg] Quinton duong MD [address] , [address], [facility] [place], [address], [place] [facility] 0 11:44:38 Date Recorded Body height Heart rate Oxygen saturation Oxygen saturation in Arterial blood by Pulse oximetry Pain severity - 0-10 verbal numeric rating [Score] - Reported Body mass index (BMI) Body weight Systolic blood pressure Diastolic blood pressure Provider Name and Address Organization Details Last Updated DateTime 0 185.42 cm 81 /min 97 % 97 % 9 35.6 kg/m2 379987. 94 g 163 mm[Hg] 69 mm[Hg] Quinton duong MD [facility] , [address], [facility] [address], [place] [facility] 0 09:37:54 Social History Question Answer Notes LastModified by Organizat ion Details LastModified Time Tobacco Smoking Status Current Every Day Smoker Not Available [facility] 04/03/2020 03:16:10 What Is Your Level Of Alcohol Consumption? Occasional [id number] Information not available 04/03/2020 Which Illicit Or Recreational Drugs Have You Used? None [id number] Information not available 04/03/2020 Education 2 Year College [employer] Information not available 11/08/2019 What Is Your Occupation? [employer] [id number] Information not available 04/03/2020 Live Alone Or With Others? With Others Information not available 11/08/2019 Marital Status Informati on not available 11/08/2019 Sex: Unknown Functional Status None recorded. Mental Status None recorded. Family History Relationship Description Onset Age of this Age Resolved Age Notes LastModified by Organization Details LastModified Time Father Arthritis [email or web address] Not avail able 11/08/2019 10:23:53 Father Diabetes mellitus [email or web address] Not available 10/18 10:24:25 Mother Arthritis tmanikantan Not avail able 11/08/2019 10:23:53 Mother Diabetes mellitus [email or web address] Not available 10/18 10:24:25 Brother Diabetes mellitus tmanikantan Not available 10/18 10:24:25 Medical History Condition Response Anxiety Disorder Y Diabetes Y Seizures/Epilepsy Y Arthritis Y High Cholesterol Y Fibromyalgia Y Hypertension Y COPD Y Asthma Y Past Encounters Encounter ID Performer Location Encounter Start Date Encounter Closed Date Diagnosis/Indication Diagnosis SNOMED-CT Code Diagnosis ICD10 Code Diagnosis Note [id number] Quinton Hall MD [facility] [address] [place] [address] 11/08/2019 09:45:45 11/28/2019 10:54:41 Spinal stenosis of lumbar region 50827262 M48.061 Degenerati on of lumbar intervertebral disc 39580733 M51.36 Lumbosacra l radiculopathy 9957130 M54.17 Lumbosacra l spondylosis without myelopathy 99403105 M47.817 [id number] Quinton Hall MD PAIN OFFICE [address] [place] [address] 01/07/2020 09:31:13 01/07/2020 10:07:07 Spinal stenosis of lumbar region 52064345 M48.061 Degenerati on of lumbar intervertebral disc 86814497 M51.36 Lumbosacra l radiculopathy 7801858 M54.17 Lumbosacra l spondylosis without myelopathy 87065558 M47.817 [id number] Quinton Hall MD PAIN OFFICE [address] [place] [address] 01/30/2020 11:12:23 01/30/2020 13:18:00 Spinal stenosis of lumbar region 83007282 M48.061 Degenerati on of lumbar intervertebral disc 25537580 M51.36 Lumbosacra l radiculopathy 9612698 M54.17 Lumbosacra l spondylosis without myelopathy 77756288 M47.817 [id number] Quinton Hall MD [facility] [address] [place] [address] 04/08/2020 12:54:40 04/08/2020 13:54:33 Spinal stenosis of lumbar region 89904044 M48.061 Degenerati on of lumbar intervertebral disc 33888554 M51.36 Lumbosacra l radiculopathy 9009608 M54.17 Lumbosacra l spondylosis without myelopathy 31770431 M47.817 [id number] Quinton Hall MD [facility] [address] [place] [address] 04/17/2020 11:42:51 04/20/2020 14:08:51 Degeneration of lumbar intervertebral disc 82220059 M51.36 Lumbosacra l radiculopathy 9762586 M54.17 Lumbosacra l spondylosis without myelopathy 12391568 M47.817 Spinal belkys nosis of lumbar region 28920989 M48.061 [id number] Quinton Hall MD PAIN OFFICE [address] [facility] [address] [facility] [place] [address] 05/08/2020 09:29:12 05/27/2020 11:26:07 Spinal stenosis of lumbar region 50953210 M48.061 Degenerati on of lumbar intervertebral disc 05111165 M51.36 Lumbosacra l radiculopathy 6200856 M54.17 Lumbosacra l spondylosis without myelopathy 02965171 M47.817 Health Concerns Section Related Observation LastModified by Organization Detai ls LastModified Time None Recorded Concern Status LastModified by Organization Details LastModified Time None Recorded Advance Directives Directive None Recorded Payers Encounter Date Sequence Insurance Name Policy Number Policy Yoon Covered Member ID Yoon Member ID Guarantor Name 01/07/2020 1 [id number] - DOS PRIOR TO 2022 - DUAL ELIGIBLE (MEDICARE REPLACEMENT/ADV ANTAGE - HMO) Matt Zuleta [id number] Matt Zuleta 01/30/2020 1 [employer] - DOS PRIOR TO 2022 - DUAL ELIGIBLE (MEDICARE REPLACEMENT/ADV ANTAGE - HMO) Matt Zuleta [id number] Matt Zuleta 04/08/2020 1 [employer] - DOS PRIOR TO 2022 - DUAL ELIGIBLE (MEDICARE REPLACEMENT/ADV ANTAGE - HMO) Matt Zuleta [id number] Matt Zuleta 04/17/2020 1 [employer] - DOS PRIOR TO 2022 - DUAL ELIGIBLE (MEDICARE REPLACEMENT/ADV ANTAGE - HMO) Matt Zuleta [id number] Matt Zuleta 05/08/2020 1 [employer] - DOS PRIOR TO 2022 - DUAL ELIGIBLE (MEDICARE REPLACEMENT/ADV ANTAGE - HMO) Matt Zuleta [id number] Matt Zuleta Notes Date Note Type Note Provider Name and Address Organization Details Recorded Time 01/07/2020 text/html He is here today for a lumbar epidural steroid injection under fluoroscopic guidance. His blood glucose level is 115 this morning per patient. Quinton Hall MD [address] [facility] , [address], [place], [address], [place] [facility] 01/08/2020 10:18:49 01/30/2020 text/html He is here for a follow up after a lumbar epidural steroid injection under fluoroscopic guidance. He reports 70% pain relief which is ongoing. He is walking better and has been walking one mile a day or more. He is complaining of occasionally achiness in his low back which radiates into both lower extremities. He has no history of bladder or bowel incontinence.His blood glucose level this morning was 103 Quinton Hall MD [address] [facility] , [address], [place], [address], [place] [facility] 01/31/2020 12:27:54 04/08/2020 text/html He is here today for a lumbar epidural steroid injection under fluoroscopic guidance. His blood glucose level is 101 this morning per patient. Quinton Hall MD [address] [facility] , [address], [place], [address], [place] [facility] 04/08/2020 16:28:40 04/17/2020 text/html He is here for a follow up after a lumbar epidural steroid injection under fluoroscopic guidance. He reports 70% pain relief which is ongoing. He is walking better and has been walking one mile a day or more. He is complaining of occasionally achiness in his low back which radiates into both lower extremities. He has no history of bladder or bowel incontinence.He is having pain in both knees and had an ultrasound in [facility] which shows popliteal cysts. He has an appointment with YANELY [place] at [facility] on April 26. Quinton Hall MD [address] , [address], [place], [address], [place] - [facility] 04/27/2020 08:40:16 05/08/2020 text/html He is here for a follow up . He is complaining of achiness in his low back which radiates into both lower extremities. He has no history of bladder or bowel incontinence.His blood glucose level this morning was 103. He has been using lidocaine patches with some pain benefit. Quinton Hall MD [address] [place] [address] , [address], [place], [address], [facility] - [facility] 05/27/2020 16:27:10
--- OUTSIDE RECORDS SUMMARY | 2024-09-26 16:47 | XMS_ITS | Clinical Summary ---
Author Organization [facility] Address [address] [place] [address] Phone Care Team Providers Care [employer] Operator Name Role Phone Hilaria aVsques MD Primary Care Provider [phone] Surgical History Surgery Date Site/Laterality Comments OTHER SURGICAL HISTORY PROCEDURE: DENIES PREVIOUS SURGERY Medical History Medical History Date Comments Depression 11/17/2016 DX:Depression Asthma 03/16/2017 DX:Asthma Hypertension 12/14/2016 DX:Hypertension Insomnia 11/10/2016 DX:Insomnia Obstructive sleep apnea syndrome 03/17/2017 DX:Obstructive sleep apnea syndrome Hyperlipidemia 04/05/2019 DX:Hyperlipidemi a Anxiety 04/05/2019 DX:Anxiety Severe obesity (BMI 35.0-39. 9) with comorbidity ([facility] V24, [facility] V28) 03/16/2017 DX:Severe obesi ty (BMI 35.0- 39.9) with comorbidity (HCC) Type 2 diabetes mellitus wit hout complications ([facility] V24, [facility] V28) 12/14/2016 DX:Type 2 diabetes mellitus without complications (HCC) History of substance abuse ( [facility] V24, [facility] V28) 04/05/2019 DX:History of substance abus e (HCC); COMMENT: alcohol Social History Tobacco Use Types Packs/Day Years Used Date Smoking Tobacco: Former Smokeless Tobacco: Never Alcohol Use Standard Drinks/Week Comments Yes 0 (1 standard drink = 0.6 oz pur e alcohol) Sex and Gender Information Value Date Recorded Sex Assigned at Not on file Legal Sex Male 4:34 AM EST Gender Identity Not on file Sexual Orientation Not on file Obstetrics History Plan of Treatment Health Maintenance Due Date Last Done Comments Diabetes: Annual GFR (Glomerular Filtration Rate) 1961 Diabetes: Annual Foot Exam 10/05/1971 Diabetes: Annual Retina Eye Exam 10/05/1971 RSV Immunization Adult Patients (1 - Risk 60-74 years 1-dose series) 2021 Cholesterol Screening (Lipid Panel) 05/22/2022 Colorectal Cancer Screening: Colonoscopy 05/22/2022 Depression Screening 05/22/2022 HIV Screening 05/22/2022 Hepatitis C Screening 05/22/2022 Social Influencers of Health Screening 05/22/2022 Diabetes: Annual Urine Albumin-Creatinine Ratio (uACR) 06/04/2022 Diabetes: Blood Sugar Control Test (HGBA1C) 06/04/2022 Hypertension/CHF/CAD Annual BMP Blood Test 06/04/2022 COVID-19 Vaccine ( season) 2024 06/01/2021, 11/07/2020, 10/17/2020 DTaP,Tdap,and Td Vaccines (3 - Td or Tdap) 12/25/2033 12/26/2023, 11/25/2014 Zoster Vaccines Completed 06/18/2019, 05/21, 11/25/2017 Pneumococcal Vaccine: 50+ Years Completed 05/05/2023, 02/16/2016 Pneumococcal Vaccine: Pediatrics (0 to 5 Years) and At-Risk Patients (6 to 64 Years) Completed 05/05/2023, 02/16/2016 Influenza Vaccine Completed 03/20/2024, , 03/31/2022, Additional history exists HIB Vaccines Aged Out No longer eligi ble based on patient's age to complete this topic HPV Vaccines Aged Out No longer eligi ble based on patient's age to complete this topic Hepatitis A Vaccines Aged Out No long er eligible based on patient's age to complete this topic Hepatitis B Vaccines Aged Out No long er eligible based on patient's age to complete this topic IPV Vaccines Aged Out No longer eligi ble based on patient's age to complete this topic MMR Vaccines Aged Out No longer eligi ble based on patient's age to complete this topic Meningococcal ACWY Vaccine Aged Out N o longer eligible based on patient's age to complete this topic Meningococcal B Vaccine Aged Out No l onger eligible based on patient's age to complete this topic RSV Immunization Patients Under 20 months Aged Out No longer eligible based on patient's age to complete this topic Varicella Vaccines Aged Out No longer eligible based on patient's age to complete this topic Insurance [place] - [place] [facility] Member Subscriber Plan / Payer (Ef fective 2020-Present) Name:Matt Zuleta Relation to Subscriber:Self Name:Matt Zuleta Payer ID:[id number] Group ID:[id number] Type:Not on file Address: [address] [place] [id number] Care Teams [employer] Operator Relationship Specialty Start Date End Date Hilaria Vasques MD [address] [place] [phone] PCP - General Internal Medicine 06/02/20
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
== END 2024-09-26 14:25 | disposition home or self-care (01) ==
LOC: HO.HKAS 13:52
PROVIDERS: PCP Nurse Practitioner Family; Visit Provider Internal Medicine Nephrology
DX: I10 Essential (primary) hypertension (principal); N28.89 Other specified disorders of kidney and ureter
CPT/HCPCS: 99214

== ENCOUNTER → 2024-09-26 13:51 | Outpatient (BNVA) | payer OTHER, SELFPAY | PROVIDERS: PCP Nurse Practitioner Family; Visit Provider Internal Medicine Nephrology | DX: I10 Essential (primary) hypertension (principal); N28.89 Other specified disorders of kidney and ureter | CPT/HCPCS: 99212 ==